=== PATIENT | male | born 1960 | race Caucasian/White ===

== ENCOUNTER 2017-07-14 18:28 | Emergency (ER) | payer MEDICARE, OTHER ==
[~2017-07-14] VITALS: Ht 170.2 cm; Wt 65.8 kg
[~2017-07-14 18:28] MED LIST: AMLODIPINE BESYL5 MG PO; BACTRIM DS TAB1 EACH PO; CELLCEPT250 MG PO; DIAZEPAM2 MG PO; FLUOXETINE HCL10 MG PO; FUROSEMIDE20 MG PO; GABAPENTIN300 MG PO; MAG-OXIDE400 MG PO; METOPROLOL SUC100 MG PO; METOPROLOL SUCC25 MG PO; MYCOPHENOLATE250 MG PO; ONDANSETRON ODT4 MG SL; OXYCODONE HCL5 M1 PO; OXYCODONE HCL5 MG PO; RAPAMUNE1 MG PO; SIROLIMUS1 MG PO; VENTOLIN HFA18 GM INH
--- OUTSIDE RECORDS SUMMARY | 2017-07-14 19:24 | XMS | Encounter Summary ---
Demographics + + + | Address | [address] | | | [place] [address] | + + + | Home Phone | | + + + | Preferred Language | Unknown | + + + | Marital Status | Single | + + + | Quaker Affiliation | BAP | + + + | Race | White | + + + | Ethnic Group | Not or | + + + Author + + + | Author | [facility] | + + + | Organization | [facility] | + + + | Address | Unknown | + + + | Phone | Unavailable | + + + Support +------+ +---------+ + | Name | Relationship | Address | Phone | +------+ +---------+ + ECON | Unknown | | +------+ +---------+ + Care Team Providers + +------+-------+ | Care Shipping Helper Name | Role | Phone | + +------+-------+ | Ritesh England PA-C | PCP | tel | + +------+-------+ Encounter Details +--------+---------+ + + + | Date | Type | Department | Care Team | Description | +--------+---------+ + + + | 05/04/ | Office | Otolaryngology | Richard Clemente MD | SCCA (squamous cell | | 2017 | Visit | Head and Neck | [address] | carcinoma) of skin | | | | Surgery Services at | [facility], | (Primary Dx) | | | | PPV [address] [facility] | [place] [address] | | | | | [facility] | [phone] | | | | | Mailcode: PV01 | | | | | | [facility] | | | | | | [place], [place] | | | | | | [address] | | | | | | [phone] | | | +--------+---------+ + + + Social History + + + +--------+ + | Tobacco Use | Types | Packs/Day | Years | Date | | | | | Used | | + + + +--------+ + | Former Smoker | Cigarettes | 0.5 | 25 | Quit: 06/01/2013 | + + + +--------+ + + +---+---+---+ | Smokeless Tobacco: | | | | | Never Used | | | | + +---+---+---+ + + +---------+ + | Alcohol Use | Drinks/We | oz/Week | Comments | | | ek | | | + + +---------+ + | No | | | | + + +---------+ + + + + | Sex Assigned at | Date Recorded | | | | + + + | Not on file | | + + + as of this encounter Last Filed Vital Signs + + + + | Vital Sign | Reading | Time Taken | + + + + | Blood Pressure | 148/90 | 05/04/2017 2:04 PM PDT | + + + + | Pulse | 64 | 05/04/2017 2:04 PM PDT | + + + + | Temperature | - | - | + + + + | Respiratory Rate | - | - | + + + + | Oxygen Saturation | - | - | + + + + | Inhaled Oxygen | - | - | | Concentration | | | + + + + | Weight | 69.9 kg (154 lb) | 05/04/2017 2:04 PM PDT | + + + + | Height | - | - | + + + + | Body Mass Index | 24.12 | 05/04/2017 2:04 PM PDT | + + + + in this encounter Progress Notes Richard Clemente MD - 05/04/2017 12:45 PM PDTHere for post op f/u after excision of 3 facial sk in Ca and one neck and local flap reconstructions. Doing well. Still suffering from pain s ome of which is chronic and had see pain mgt in the past. Reports having run out of pain me dicine yesterday and requesting a referral to pain mgt closer to home in [place], [place]. Wis hes to drive again. No visual disturbances. No drainage. Using ABx ointment Incisions on anterior neck and face healing well. No sign of infection. All flaps with go od take and no appreciable necrosis Right lower eyelid with edema Path: one lesion, lower lateral right face with positive/close margin Explained to pt high risk of recurrence , pt would like to wait, heal, and observe at this time and not immediately re-excise for wider margin. Agree that this is reasonable. -continue ABx ointment -massage eyelid several times a day, can ice on and off -refer to pain mgt -can have 20 tabs of oxycodone 5mg for acute pain during this period now while setting up a ppt with pain mgt clinic -f/u 2-4wks in this encounter Plan of Treatment +--------+---------+ + + + | Date | Type | Specialty | Care Team | Description | +--------+---------+ + + + | 11/17/ | Office | Liver Transplant | Brittney Pratt | | | 2018 | Visit | | MD Kiah [address] | | | | | | [place], [place] | | | | | | [address] | | | | | | [phone] | | | | | | | | +--------+---------+ + + + as of this encounter Visit Diagnoses + + | Diagnosis | + + | SCCA (squamous cell carcinoma) of skin - Primary | + +"
--- OUTSIDE RECORDS SUMMARY | 2017-07-14 19:24 | XMS | Encounter Summary ---
Demographics + + + | Address | [address] | | | [place] [address] | + + + | Home Phone | | + + + | Preferred Language | Unknown | + + + | Marital Status | Single | + + + | Oriental Orthodox Affiliation | BAP | + + + | Race | White | + + + | Ethnic Group | Not or | + + + Author + + + | Author | [facility] | + + + | Organization | [facility] | + + + | Address | Unknown | + + + | Phone | Unavailable | + + + Support +------+ +---------+ + | Name | Relationship | Address | Phone | +------+ +---------+ + ECON | Unknown | | +------+ +---------+ + Care Team Providers + +------+-------+ | Care Move Coordinator Name | Role | Phone | + +------+-------+ | Ritesh England PA-C | PCP | tel | + +------+-------+ Reason for Visit AUTH/CERT +--------+--------+ + + + + | Status | Reason | Specialty | Diagnoses / | Referred By | Referred To | | | | | Procedures | Contact | Contact | +--------+--------+ + + + + | | | | | | | +--------+--------+ + + + + Encounter Details +--------+ + + + + | Date | Type | Department | Care Team | Description | +--------+ + + + + | 04/22/ | Anesthesia | 6A Intra Op [facility] | Lakshmi Choudhary MD | | | 2017 | | [facility] | [address] [facility] | | | | | Admitting Desk | [facility], | | | | | Located on the | [place] [address] | | | | | floor [address] [place] [address] | [phone] | | | | | [facility] | | | | | | [place], [place] | | | | | | [address] | | | +--------+ + + + + Anesthesia Record + + + + + | Procedure Name | Responsible | Anesthesia Start | Anesthesia Stop Time | | | Anesthesiologist | Time | | + + + + + | FACE/ HEAD/NECK | Lakshmi Choudhary MD | 04/22/17 1332 | 04/22/17 1550 | | EXCISION (Right | | | | | Face) | | | | + + + + + +----+---+ + + | Da | T | Event | Comment | | te | i | | | | | m | | | | | e | | | +----+---+ + + | 09 | 1 | Eq Check | Anesthesia machine checked Equipment verified | | /2 | 3 | | | | 0/ | 0 | | | | 20 | 3 | | | | 17 | | | | +----+---+ + + | | 1 | Pt. Check | Prior to anesthesia start, pt. Identified, examined, chart | | | 3 | | reviewed, PARQ held, anesthetic plan made or approved by | | | 0 | | attending anesthesiologist. NPO status confirmed as appropriate | | | 3 | | for procedure Preoperative evaluation: unchanged | +----+---+ + + | | 1 | An Start | | | | 3 | | | | | 3 | | | | | 2 | | | +----+---+ + + | | 1 | An Start | | | | 3 | Data | | | | 3 | | | | | 5 | | | +----+---+ + + | | 1 | Vitals | Monitors applied Vital signs checked Patient ready for anesthesia | | | 3 | Checked | | | | 3 | | | | | 5 | | | +----+---+ + + | | 1 | SGA | | | | 3 | | | | | 4 | | | | | 0 | | | +----+---+ + + | | 1 | Ready | | | | 3 | | | | | 4 | | | | | 0 | | | +----+---+ + + | | 1 | Abx | | | | 3 | Administere | | | | 5 | d | | | | 5 | | | +----+---+ + + | | 1 | Incision | | | | 4 | | | | | 0 | | | | | 6 | | | +----+---+ + + | | 1 | Surgery end | | | | 5 | | | | | 3 | | | | | 1 | | | +----+---+ + + | | 1 | SGA Removed | | | | 5 | | | | | 3 | | | | | 8 | | | +----+---+ + + | | 1 | an stop | | | | 5 | data | | | | 3 | | | | | 8 | | | +----+---+ + + | | 1 | Anesthesia | | | | 5 | End | | | | 5 | | | | | 0 | | | +----+---+ + + +------+ | Meds | +------+ + + + | Name | Total | + + + | midazolam | 2 mg | + + + | propofol | 150 mg | + + + | fentaNYL | 200 mcg | + + + | ondansetron | 4 mg | + + + | ceFAZolin | 2,000 mg | + + + | lactated Ringers IV | 700 mL | + + + + + | No agents on file. | + + + + | No blood administrations on file. | + + +--------+ + + + | Type | Details | Placement | Removal | +--------+ + + + | Incisi | 04/22/17; Azzi; Anterior; neck | 04/22/17 0000 by | | | on | | Adriana Victor RN | | +--------+ + + + | Incisi | 04/22/17; Azzi; Right; Lateral; | 04/22/17 0000 by | | | on | face | Adriana Victor RN | | +--------+ + + + | Incisi | 04/22/17; Azzi; Right; Lateral, | 04/22/17 0000 by | | | on | Upper; face | Adriana Victor RN | | +--------+ + + + | Incisi | 04/22/17; Azzi; Right; Medial; | 04/22/17 0000 by | | | on | face | Adriana Victor RN | | +--------+ + + + | Periph | 04/22/17; 1300; Left; Forearm; 20 | 04/22/17 1300 by | 04/23/17 1053 by | | marvinl | g; None; Positive; 04/23/17; | Han Perales, | Cathi Spivey, | | IV | 1053; Discharge | RN | RN | +--------+ + + + in this encounter Social History + + + +--------+------+ | Tobacco Use | Types | Packs/Day | Years | Date | | | | | Used | | + + + +--------+------+ | Current Every Day | Cigarettes | 0.5 | 25 | | | Smoker | | | | | + + + +--------+------+ + +---+---+---+ | Smokeless Tobacco: | | [...] + + + as of this encounter Plan of Treatment +--------+---------+ + + + | Date | Type | Specialty | Care Team | Description | +--------+---------+ + + + | 11/17/ | Office | Liver Transplant | Brittney Pratt | | | 2017 | Visit | | MD Kiah [address] | | | | | | [place], [place] | | | | | | [address] | | | | | | [phone] | | | | | | | | +--------+---------+ + + + as of this encounter Visit Diagnoses Not on filein this encounter Administered Medications + +--------+ + +------+------+ | Medication Order | MAR | Action | Dose | Rate | Site | | | Action | Date | | | | + +--------+ + +------+------+ | ceFAZolin (ANCEF) injection | Given | | 2,000 mg | | | | intravenous, INTRAPROCEDURE PRN, | | 7 13:55 | | | | | Starting 04/22/17 at 1355, | | PDT | | | | | Until Tu04/28/17 at 1557 | | | | | | + +--------+ + +------+------+ +---+---+ | | | +---+---+ + +-------+ +--------+---+---+ | fentaNYL citrate (PF) | Given | | 50 mcg | | | | (SUBLIMAZE) injection | | 7 14:30 | | | | | INTRAPROCEDURE PRN, Starting Wed | | PDT | | | | | 04/22/17 at 1400, Until Wed | | | | | | | 04/22/17 at 1538 | | | | | | + +-------+ +--------+---+---+ +-------+ +--------+---+---+ | Given | | 50 mcg | | | | | 7 15:15 | | | | | | PDT | | | | +-------+ +--------+---+---+ | Given | | 50 mcg | | | | | 7 15:47 | | | | | | PDT | | | | +-------+ +--------+---+---+ +---+---+ | | | +---+---+ + +---------+ + + + + | lactated Ringers IV 10 mL/hr, | New Bag | | 10 mL/hr | 10 mL/hr | Left Arm | | intravenous, PROCEDURE | | 7 13:00 | | | | | CONTINUOUS, Starting Thu04/22/17 | | PDT | | | | | at 1245, Until Thu04/22/17 at | | | | | | | 1807 | | | | | | + +---------+ + + + + +---------+ +---+---+---+ | New Bag | | | | | | | 7 13:32 | | | | | | PDT | | | | +---------+ +---+---+---+ +---+---+ | | | +---+---+ + +-------+ +------+---+---+ | midazolam (VERSED) injection | Given | | 2 mg | | | | INTRAPROCEDURE PRN, Starting Wed | | 7 13:32 | | | | | 04/22/17 at 1332, Until Wed | | PDT | | | | | 04/22/17 at 1538 | | | | | | + +-------+ +------+---+---+ +---+---+ | | | +---+---+ + +-------+ +------+---+---+ | ondansetron (ZOFRAN) injection | Given | | 4 mg | | | | INTRAPROCEDURE PRN, Starting Wed | | 7 15:15 | | | | | 04/22/17 at 1515, Until Wed | | PDT | | | | | 04/22/17 at 1538 | | | | | | + +-------+ +------+---+---+ +---+---+ | | | +---+---+ + +-------+ +--------+---+---+ | propofol INTRAPROCEDURE PRN, | Given | | 150 mg | | | | Starting 04/22/17 at 1332, | | 7 13:38 | | | | | Until 04/22/17 at 1538 | | PDT | | | | + +-------+ +--------+---+---+ +---+---+ | | | +---+---+ in this encounter"
--- OUTSIDE RECORDS SUMMARY | 2017-07-14 19:24 | XMS | Encounter Summary ---
Demographics + + + | Address | [address] | | | [place] [address] | + + + | Home Phone | | + + + | Preferred Language | Unknown | + + + | Marital Status | Single | + + + | Anglican Affiliation | BAP | + + + | Race | White | + + + | Ethnic Group | Not or | + + + Author + + + | Author | [facility] | + + + | Organization | [facility] | + + + | Address | Unknown | + + + | Phone | Unavailable | + + + Support +------+ +---------+ + | Name | Relationship | Address | Phone | +------+ +---------+ + ECON | Unknown | | +------+ +---------+ + Care Team Providers + +------+-------+ | Care Ski Edge Painter Name | Role | Phone | + +------+-------+ | Ritesh England PA-C | PCP | tel | + +------+-------+ Reason for Visit + + + | Reason | Comments | + + + | Refill Request | | + + + Encounter Details +--------+--------+ + + + | Date | Type | Department | Care Team | Description | +--------+--------+ + + + | 05/04/ | Refill | Transplant | Brittney Pratt | Refill Request | | 2016 | | Coordinators [address] MD [address] | | | | | [address] | [place], [place] | | | | | [place], [place] | [address] | | | | | [address] | [phone] | | | | | [phone] | | | +--------+--------+ + + + Social History + + [...] | 2017 | Visit | | MD Bruce [address] | | | | | | [place], [place] | | | | | | [address] | | | | | | [phone] | | | | | | | | +--------+---------+ + + + as of this encounter Visit Diagnoses Not on filein this encounter"
--- OUTSIDE RECORDS SUMMARY | 2017-07-14 19:24 | XMS | Encounter Summary ---
Demographics + + + | Address | [address] | | | [place] [address] | + + + | Home Phone | | + + + | Preferred Language | Unknown | + + + | Marital Status | Single | + + + | Congregational Affiliation | BAP | + + + | Race | White | + + + | Ethnic Group | Not or | + + + Author + + + | Author | [facility] | + + + | Organization | [facility] | + + + | Address | Unknown | + + + | Phone | Unavailable | + + + Support +------+ +---------+ + | Name | Relationship | Address | Phone | +------+ +---------+ + ECON | Unknown | | +------+ +---------+ + Care Team Providers + +------+-------+ | Care Bee Rancher Name | Role | Phone | + [...] +--------+--------+ + + + + Encounter Details +--------+---------+ + + + | Date | Type | Department | Care Team | Description | +--------+---------+ + + + | 04/22/ | Surgery | 6A Intra [facility] | Shlomo Roach MD | EXCISION OF SKIN | | 2017 | | [facility] | [address] [facility] | CANCER OF FACE 5X7 | | | | Admitting Desk | [facility], | CM, 4X5 CM & 8X8 CM, | | | | Located on the 9 | [place] [address] | AND NECK WITH LOCAL | | | | floor [address] [facility] | [phone] | ADVANCEMENT FLAPS. | | | | [facility] | | specimens: pathology | | | | [place], [place] | | NEDA x 4 | | | | [address] | | | +--------+---------+ + + + [...] + + + | Blood Pressure | 161/74 | 04/23/2017 9:30 AM PDT | + + + + | Pulse | 50 | 04/23/2017 9:30 AM PDT | + + + + | Temperature | 36.6 C (97.9 F) | 04/23/2017 9:30 AM PDT | + + + + | Respiratory Rate | 16 | 04/23/2017 9:30 AM PDT | + + + + | Oxygen Saturation | 98% | 04/23/2017 9:30 AM PDT | + + + + | Inhaled Oxygen | - | - | | Concentration | | | + + + + | Weight | 67.3 kg (148 lb 4.8 | 04/22/2017 6:16 PM PDT | | | oz) | | + + + + | Height | 170.2 cm (5' 7") | 04/22/2017 6:16 PM PDT | + + + + | Body Mass Index | 23.23 | 04/22/2017 6:16 PM PDT | + + + + in this encounter Discharge Summaries Juanjose Gupta PA-C - 04/23/2017 9:19 AM PDTFormatting of this note may be different fr om the original. DOS: 04/23/2017 9:19 AM INPATIENT PHYSICIAN DISCHARGE SUMMARY Author: Juanjose Gupta PA-C Attending Physician: Shlomo Roach MD PCP: Ritesh England PA-C Admission Date: 04/22/2017 Discharge Date: 23 Apr 2017 Diagnoses Principal Final Diagnosis: Skin cancers Past Medical History: Anxiety Chronic pain Comment: sounds like trigeminal neuralgia, right side of the face Hepatitis C Hypertension Liver cancer Comment: was on hospice in 2009! 2004: Melanoma of face (HCC) Comment: Excision in 2004; reconstruction in 2013 No date: NICM (nonischemic cardiomyopathy) (HCC) Comment: EF 35-40% 08/2016: Pericardial effusion 09/17/2005: SCCA (squamous cell carcinoma) of skin Procedures Dr. Roach (ENT) 04/22/2017 1. Excision of neck cancer, approximately 6 x 3 cm, with advancement flap s for primary closure. 2. Excision of nasolabial cancer, approximately 4 x 5 cm, with an interpo lated advancement flap of approximately 4 x 3 cm. 3. Excision of temporal cancer, approximately 5 x 4 cm, with rotation adv ancement flap of approximately 8 x 8 cm. 4. Excision of cheek cancer, approximately 4 x 5 cm, with undermining and primary closure Brief Hospital Course:The patient was taken to the OR on 04/22/2017 for the above procedures . During the procedure, no complications were noted. At the end of the procedure, the gene t was extubated, and transferred to the post-anesthesia care unit. Once recovered, the alisson nt was transferred to the post-surgical patten where he remained for the rest of the hospitali zation. The patient had no post-operative events The patient was admitted to floor for observation and post-operative management. On the tri or the patient was stable and without complications. The patient had stable respiratory stat us on room air. The surgical incisions remained clean, dry, and intact. By date of discharge patient was tolerating oral diet without abdominal pain, nausea or vomiting. The patient's pain was controlled with oral medications. Patient discharged home in good and stable condit ion he was informed on appropriate follow-up care. Medications: Medication List START taking these medications bacitracin 500 unit/gram Oint Apply to affected area two times daily. Indications: post surgical incision site cephALEXin 500 mg Cap Commonly known as: KEFLEX Take 1 capsule by mouth every six hours for 7 days. Indications: soft tissue oxyCODONE (immediate release) 5 mg Tab Commonly known as: ROXICODONE Take 1-2 tablets by mouth every four hours as needed for severe pain. CONTINUE taking these medications amLODIPine 5 mg Tab Commonly known as: NORVASC FLUoxetine 10 mg Cap Commonly known as: PROZAC gabapentin 300 mg Cap Commonly known as: NEURONTIN metoprolol succinate 100 mg Tb24 Commonly known as: TOPROL-XL mycophenolate 250 mg Cap Commonly known as: CELLCEPT Take 2 capsules by mouth two times daily. Take with food. sirolimus 1 mg Tab Commonly known as: RAPAMUNE TAKE 2 TABLETS BY MOUTH EVERY MORNING Diet Regular Regular diet- There are no restrictions to your diet. You may eat or drink whatever you pr efer, though healthy food choices are recommended. Other Discharge Orders and Instructions OTOLARYNGOLOGY- HEAD AND NECK SURGERY SURGICAL DISCHARGE INSTRUCTIONS Please call our clinic with any concerns or questions about your hospital stay. After hour s, you may call ACTIVITY: Walking will be your primary source of exercise. It is very important that you walk at leas t three times a day. These can be short walks that you can gradually increase over time as y our strength improves. The majority of time should be spent out of bed. It is ok to take nap s if you are tired, but alternate napping with activity. WEIGHT BEARING RESTRICTIONS: No heavy lifting, nothing greater than 10lbs. For 2 weeks (a gallon of milk is approximatel y 8lbs.) PAIN: It is expected that you will have pain after surgery, and it is important to manage this pa in so that you can increase your activity, sleep, and heal well from surgery. You are being sent home with a prescription for narcotic pain medication - this is to be taken NEEDED t ypically every 4-6 hours. You may also substitute/supplement the narcotic medication with Ty lenol for milder pain. DO NOT TO TAKE MORE THAN 3,250MG OF TYLENOL IN 24HOURS. Please take n ote if the narcotic you have been prescribed contains Tylenol (acetaminophen). MEDICATIONS: Take pain medication as needed. Your pain should decrease over the next week. Wean yoursel f off pain medications as soon as possible. The regular use of narcotics (pain medications) can be habit forming, and they do impair judgement. Do not drive within 8 hours of taking any narcotic. Pain medications are constipating. You should have regular bowel movements, while on pain medications. Staying well hydrated and increasing fiber in your diet are good strategies. If you are still unable to have a bowel movement, over the counter stool softeners and laxat tori are appropriate to use. Miralax, Docusate, and Sennosides are a few examples. Your ph armacist can help pick a stool softener should you need further assistance. Medication Refill Instructions: For non-narcotic medication refills, please contact your pharmacy. If you think you will need a refill for the weekend, you must call by 3pm on to al low time for processing. Narcotics: If you need a refill on narcotic pain medications between 8am-3pm. If you think you will need a refill for the weekend, you must call by 3pm on Narcotic medications (Dilaudid, Oxycodone, Morphine, etc.) cannot be called or faxed in to any pharmacy; They must be either picked up in person or mailed to your home. NO REFILL REQU ESTS WILL BE TAKEN ON FRIDAYS OR . Prescriptions sent by mail will take 3 business d ays. Prescriptions to be picked up in person will be ready by the next business day. It is your responsibility to keep track of how much pain medication you have left. You may receive a phone call from the clinic inquiring about your pain; this is to find out if you are having expected post-surgical pain, or if you are having problems and need furth er evaluation. WOUND CARE: Keep the wound clean and dry. You may shower with soap and water. Pat your incision dry. Do not scrub your incision. Do not use hot tubs or take a bath until cleared by a surgeon. Apply a thin layer of petroleum jelly (Vaseline) or antibacterial ointment (Bacitracin) to the Post surgical incision site wound (face)at least 2 times a day. SYMPTOMS OF A SURGICAL SITE INFECTION: 1) Spreading redness and swelling from the incision. 2) Worsening or uncontrolled pain at the incision 3) Foul smelling or thick/creamy discharge from the incision 4) Chills or fever of a 101.4 degrees or higher HOW TO REACH US: Thursday- Thursday from 8:00am to 4:30pm, call the Otolaryngology clinic at [phone]. After hours, weekends, and holidays, call the [facility] joggle press operator at [phone] and as k to have the ENT doctor on-call paged Future Appointments Date Time Provider Department Center 04/30/2017 10:10 AM Brenda Christensen MD [facility] Comprehensiv 11/17/2017 11:00 AM Valente Welch MD,[facility] Pertinent labs: CBC with diff last 72 hours (or 3 results) Recent Labs 04/21/17 1131 WBC 5.71 HB 15.2 HCT 44.4 PLT 187 Chemistries: Last 72 Hours (or 3 results): Recent Labs 04/21/17 1131 NA 137 K 4.7 CL 103 BICARB 27 BUN 12 CR 1.34* GLU 102* CA 9.1 Liver Tests: Last 72 hours (or 3 results) Recent Labs 04/21/17 1131 AST 70* ALT 79* TBILI 0.6 AP 115 ALB 3.6 TP 7.6 Vitals on discharge: Ht 1.702 m (5' 7"), Wt 67.3 kg (148 lb 4.8 oz), BP 178/93, Pulse 49, T emperature 36.4 C (97.5 F), RR 16, SpO2 97%, BMI 23.23 kg/(m^2). Physical Exam on discharge: General: awake, alert in NAD HEENT: incision c/d/i. Slight swelling over the right side of the eye 2/2 post-surgical layla nges Respiratory: Breathing unlabored on RA. Outstanding labs/studies: Surgical Pathology Discharging Physician: Juanjose Gupta PA-C Attending Physician: Shlomo Roach MD I spent 52 minutes in the care of this patient. Greater than 50% of the time was spent cou nseling and coordination of care, including physical examination, wound management and coord inating follow-up appointment. JUANJOSE GUPTA PA-C Department of Otolaryngology/Head and Neck Surgery Mail Code PV01 [address] [place] [address] Pager [phone] Consult/Night/Weekend Pager: [phone] in this encounter Medications at Time of Discharge + + +---------+---------+ + + | Medication | Sig. | Disp. | Refills | Start | End Date | | | | | | Date | | + + +---------+---------+ + + | amLODIPine 5 mg | Take 7.5 mg by mouth | | 3 | 09/29/19 | | | oral | once daily. | | | 17 | | | tabletIndications: | Indications: | | | | | | hypertension | hypertension | | | | | + + +---------+---------+ + + | bacitracin 500 | Apply to affected | 1 g | 0 | 04/23/20 | | | unit/gram topical | area two times | | | 17 | | | ointmentIndications: | daily. Indications: | | | | | | post surgical | post surgical | | | | | | incision site | incision site | | | | | + + +---------+---------+ + + | FLUoxetine 10 mg | Take 10 mg by mouth | | | 10/25/19 | | | oral capsule | once daily. | | | 17 | | + + +---------+---------+ + + | gabapentin 300 mg | TK ONE C PO QD | | 0 | 08/26/19 | | | oral capsule | | | | 17 | | + + +---------+---------+ + + | metoprolol | TK 1 T PO QD | | 3 | 09/29/19 | | | succinate 100 mg | | | | 17 | | | oral tablet extended | | | | | | | release 24 hr | | | | | | + + +---------+---------+ + + | mycophenolate | Take 2 capsules by | 120 | 3 | 02/28/20 | | | (CELLCEPT) 250 mg | mouth two times | capsule | | 17 | | | oral capsule | daily. Take with | | | | | | | food. | | | | | + + +---------+---------+ + + | cephALEXin 500 mg | Take 1 capsule by | 28 | 0 | 04/23/20 | | | oral | mouth every six | capsule | | 17 | 7 | | capsuleIndications: | hours for 7 days. | | | | | | soft tissue | Indications: soft | | | | | | | tissue | | | | | + + +---------+---------+ + + as of this encounter Plan of Treatment +--------+---------+ + + + | Date | Type | Specialty | Care Team | Description | +--------+---------+ + + + | 11/17/ | Office | Liver Transplant | Brittney Pratt | | | 2017 | Visit | | MD Kiah [address] | | | | | | [place], [place] | | | | | | [address] | | | | | | [phone] | | | | | | | | +--------+---------+ + + + as of this encounter Procedures + +--------+ + + + | Procedure Name | Priori | Date/Time | Associated Diagnosis | Comments | | | ty | | | | + +--------+ + + + | OPERATION RECORD | | 04/23/2017 | | Results for this | | | | 5:00 PM | | procedure are in the | | | | PDT | | results section. | + +--------+ + + + | FACE/ HEAD/NECK | Electi | 04/22/2017 | Squamous cell | | | EXCISION | ve | 1:15 PM | carcinoma of skin of | | | | Surgic | PDT | other parts of face | | | | al | | | | + +--------+ + + + in this encounter Results OPERATION RECORD (04/23/2017 5:00 PM) + + | Procedure Note | + + | Shlomo Roach MD - 04/22/2017 4:12 PM PDT Date of Service: 04/22/2017 Attending | | Surgeon:Shlomo Roach MD Processing Archivist(s):Richard Clemente MD. | | Preoperative Diagnosis: Skin cancer.Postoperative Diagnosis: Skin | | cancer.Operative Procedure: 1.Excision of neck cancer, approximately 6 x 3 cm, with | | advancement flaps for primary closure.2.Excision of nasolabial cancer, approximately 4 x | | 5 cm, with an interpolated advancement flap of approximately 4 x 3 cm.3.Excision of | | temporal cancer, approximately 5 x 4 cm, with rotation advancement flap of approximately | | 8 x 8 cm.4.Excision of cheek cancer, approximately 4 x 5 cm, with undermining and | | primary closure.Operative Note: This gentleman has had multiple skin cancers and was | | brought in to have these removed. He was orotracheally intubated after being put to | | sleep, general anesthesia, and then prepped and draped. Surgical pause was performed by | | myself and the team. The neck cancer was marked out and excised. Undermining both | | above and below allowed for primary closure with 4-0 Vicryl and with 5-0 Caprosyn. The | | nasolabial cancer was excised as described. Inferiorly, an incision was made for an | | interpolated type of flap, and this was dissected down through the subcutaneous tissue. | | It was freed up inferiorly and laterally based on the subcutaneous tissue and then | | advanced caudally to get up into the nasolabial defect. Inferiorly close primarily and | | then the flap was used to close the defect in the nasolabial orbital area. A 4-0 Vicryl | | and 5-0 Caprosyn. The lesion in the lateral temporal area was excised. A cervical | | facial flap was elevated in a subfascial plane. This was rotated around superiorly and | | medially. The eye inferior by the lateral canthus was secured to the periosteum to | | elevate the cheek up to there so that there was very little play or tension on the | | eyelid. Then, the flap was rotated in and closed with 4-0 Vicryl, 5-0 Caprosyn. The | | cheek excision was performed using undermining. We were able to advance the skin and | | close it primarily. 4-0 Vicryl, 5-0 Caprosyn. There was no evidence of any bleeding or | | hematomas. All flaps looked viable at the end of the procedure. He was woken up, | | extubated, and will be followed carefully.EVAN Delgadillo/TONY: 04/22/2017 15:12:11DT: | | 04/22/2017 16:12:47Job #: [id number] | |There was no evidence of any bleeding or hematomas. All flaps looked viable at the end of the procedure. He was woken up, extubated, and will be followed carefully. | | | | | | | |Shlomo Roach MD | |TELLY/SABRA | | | | | | /[id number] | + + PROCEDURE NOTE (04/22/2017 3:55 PM) + + | Narrative | + + | Richard Clemente MD 04/22/2017 3:55 PM Department of Otolaryngology/Head and | | Neck Surgery BRIEF OPERATIVE NOTE v1.0 Simeon Michaels Jr. [id number] | | Procedure Date: 04/22/17 Attending Physician: Shlomo Roach Assistants: Richard Clemente. | | Preoperative Diagnosis: Skin cancers Postoperative Diagnosis: same Procedure | | Performed (w/ laterality): excision of 4 malignant skin cancers and reconstruction | | using local flaps and adjacent tissue transfers Anesthesia: LMA, general | | Estimated Blood Loss: 25ml Fluids: see anesthesia record Specimens: skin cancers x4 | | Complications: none Drains: none Findings: as dictated Plan: Post-op | | destination(home/patten/ICU): pacu, [place] Airway (normal/intubated/trach): normal Diet: | | regular Thromboprophylaxis/Anticoagulation: ambulation Ava: n/a Richard Clemente MD | | | + + INTRAPROCEDURE IMAGING (04/22/2017 12:40 PM) + + | Narrative | + + | See admission or procedure notes for details of any intraprocedure images obtained. | + + SURGICAL PATHOLOGY (04/22/2017) + + + + | Component | Value | Ref Range | + + + + | SURGICAL PATHOLOGY | SOURCE OF SPECIMEN:A Anterior neck | | | | lesionSOURCE OF SPECIMEN:B Lower right face | | | | lesionSOURCE OF SPECIMEN:C Nasolabial | | | | lesion rightSOURCE OF SPECIMEN:D Right | | | | lateral eye Final Pathologic | | | | Diagnosis:A. Anterior neck lesion, | | | | excision: Invasive moderately | | | | differentiated squamous cell carcinoma, 0.9 | | | | cm ingreatest dimension and invading to a | | | | depth of 0.2 cm, surgical | | | | marginsnegative. B. Lower right | | | | face lesion, excision:Invasive moderately | | | | differentiated squamous cell carcinoma, 1.9 | | | | cm ingreatest dimension and invading to a | | | | depth of 0.4 cm, extending tounoriented | | | | peripheral specimen margins. C. | | | | Nasal labial lesion, excision:Invasive | | | | moderately differentiated squamous cell | | | | carcinoma,, 0.7 cm ingreatest dimension and | | | | invading to a depth of 0.2 cm, surgical | | | | marginsnegative for in situ and invasive | | | | carcinoma.Basal cell carcinoma, superficial | | | | and nodular subtypes, 0.2 cm in | | | | greatestdimension and invading to a depth | | | | of 0.2 cm, surgical margins | | | | negative.Actinic keratosis extending to | | | | unoriented tip margin. D. Right | | | | lateral eye, excision: Invasive | | | | moderately differentiated squamous cell | | | | carcinoma, 0.2 cm ingreatest dimension and | | | | invading to a depth of 0.1 cm, surgical | | | | marginsnegative. Comment: None | | | | of the specimens show the presence of | | | | perineural orlymphovascular space | | | | invasion. Case reviewed by:Evan | | | | Puneet Tucker/ Surgical Pathology | | | | FellowMinisterio Wharton M.D./ | | | | Pathologist Clinical History:Per | | | | Epic: Diagnosis of squamous cell carcinoma | | | | of the face. Gross | | | | Description:Received are 4 specimens fresh | | | | in containers labeled with patient's | | | | nameand .A. | | | | Anterior neck lesion: Received is a 2.8 x 2 | | | | x 1.4 cm unoriented tanpink skin ellipse | | | | remarkable for a 2.5 x 1.3 cm lesion rising | | | | 0.7 cm abovethe epidermal surface. | | | | Roughened granular lesion extends to the | | | | skin edges(margin inked black). Friable | | | | superficial lesion is debulked, and | | | | thespecimen is entirely submitted.A1-2, | | | | serial sections B. Lower right | | | | face lesion: Received is a 5.5 x 2.3 x 1.5 | | | | cm unorientedtan pink skin ellipse | | | | remarkable for a central 2.3 x 1.8 cm | | | | lesion rising0.4 cm above the epidermal | | | | surface. Also noted at one apex is a 0.9 x | | | | 0.6 x0.4 cm additional lesion. Roughened | | | | granular lesions extend to the skinedges | | | | (margin inked black). Friable superficial | | | | lesion is debulked, and thespecimen is | | | | entirely submitted.B1-4, serial | | | | sections C. Nasal labial | | | | lesion: Received is a 2.4 x 1.8 x 0.9 cm | | | | unoriented tanpink circular skin excision | | | | remarkable for a 1.7 x 1 cm lesion arising | | | | 0.5cm above the epidermal surface area. | | | | Roughened granular lesion extends tothe | | | | skin edges (margin inked black). Friable | | | | superficial lesion isdebulked, and the | | | | specimen is entirely submitted.C1-2, serial | | | | sections D. Right lateral eye: | | | | Received is a 3 x 2 x 0.9 cm unoriented | | | | reyna pinkirregular skin excision remarkable | | | | for a 2 x 1.5 cm lesion arising 0.3 cmabove | | | | the epidermal surface area. Roughened | | | | granular lesion extends to theskin edges | | | | (margin inked black). The specimen is | | | | serially section andentirely | | | | submitted.D1-3, serial sections | | | | (AMJ) My electronic signature | | | | indicates that I have personally reviewed | | | | alldiagnostic slides, the gross and/or | | | | microscopic portion of thisreport and | | | | formulated the final diagnosis. | | | | Rendering Diagnostician: Ministerio Patel | | | | Akiko TeixeiraHematopathologistElectronically | | | | Signed 04/28/2017 12:36PM | | + + + + + + + | Specimen | Performing Laboratory | + + + | | [facility] DEPARTMENT OF PATHOLOGY [address] | | | [place] [address] | + + + CARDIOLOGY (04/22/2017)in this encounter Visit Diagnoses + + | Diagnosis | + + | Squamous cell carcinoma of skin of other parts of face | + + Admitting Diagnoses + + | Diagnosis | + + | Squamous cell carcinoma of skin of other parts of face [C44.329] | + + Administered Medications + +--------+ +---------+------+------+ | Medication Order | MAR | Action | Dose | Rate | Site | | | Action | Date | | | | + +--------+ +---------+------+------+ | bacitracin ointment | Given | | 1 strip | | | | INTRAPROCEDURE PRN, Starting Wed | | 7 15:27 | | | | | 04/22/17 at 1527, Until Wed | | PDT | | | | | 04/22/17 at 1542 | | | | | | + +--------+ +---------+------+------+ +---+---+ | | | +---+---+ + +-------+ +-------+---+---+ | balanced salt (BSS) ophthalmic | Given | | 15 mL | | | | irrigation INTRAPROCEDURE PRN, | | 7 15:06 | | | | | Starting 04/22/17 at 1506, | | PDT | | | | | Until 04/22/17 at 1542 | | | | | | + +-------+ +-------+---+---+ +---+---+ | | | +---+---+ + +-------+ +-------+---+---+ | lidocaine-EPINEPHrine | Given | | 18 mL | | | | (XYLOCAINE WITH EPINEPHRINE) 1 | | 7 14:29 | | | | | %-1:100,000 injection | | PDT | | | | | INTRAPROCEDURE PRN, Starting Wed | | | | | | | 04/22/17 at 1429, Until Wed | | | | | | | 04/22/17 at 1542 | | | | | | + +-------+ +-------+---+---+ +---+---+ | | | +---+---+ in this encounter
--- OUTSIDE RECORDS SUMMARY | 2017-07-14 19:24 | XMS | Clinical Summary ---
Demographics + + + | Address | [address] | | | [place] [address] | + + + | Home Phone | | + + + | Preferred Language | Unknown | + + + | Marital Status | Single | + + + | Hoahaoism Affiliation | BAP | + + + | Race | White | + + + | Ethnic Group | Not or | + + + Author + + + | Author | [facility] | + + + | Organization | [facility] | + + + | Address | Unknown | + + + | Phone | Unavailable | + + + Support +------+ +---------+ + | Name | Relationship | Address | Phone | +------+ +---------+ + ECON | Unknown | | +------+ +---------+ + Care Team Providers + +------+-------+ | Care Dance Instructor Name | Role | Phone | + +------+-------+ | Ritesh England PA-C | PP | tel | + +------+-------+ Source Comments SHILA is fully live on both [facility] and [facility] InPatient.[facility] Allergies + + + + + + | Active Allergy | Reactions | Severity | Noted | Comments | | | | | Date | | + + + + + + | Morphine | Nausea | | 12/03/19 | | | | | | 16 | | + + + + + + Current Medications + + +---------+---------+------+------+-------+ | Prescription | Sig. | Disp. | Refills | Star | End | Statu | | | | | | t | Date | s | | | | | | Date | | | + + +---------+---------+------+------+-------+ | FLUoxetine 10 mg | Take 10 mg by mouth | | | 03/2 | | Activ | | oral capsule | once daily. | | | 11/20 | | e | | | | | | 17 | | | + + +---------+---------+------+------+-------+ | metoprolol | TK 1 T PO QD | | 3 | /2 | | Activ | | succinate 100 mg | | | | 02/19 | | e | | oral tablet extended | | | | 17 | | | | release 24 hr | | | | | | | + + +---------+---------+------+------+-------+ | amLODIPine 5 mg | Take 7.5 mg by mouth | | 3 | 02/2 | | Activ | | oral | once daily. | | | 02/19 | | e | | tabletIndications: | Indications: | | | 17 | | | | hypertension | hypertension | | | | | | + + +---------+---------+------+------+-------+ | gabapentin 300 mg | TK ONE C PO QD | | 0 | /2 | | Activ | | oral capsule | | | | 11/20 | | e | | | | | | 17 | | | + + +---------+---------+------+------+-------+ | mycophenolate | Take 2 capsules by | 120 | 3 | 07/2 | | Activ | | (CELLCEPT) 250 mg | mouth two times | capsule | | 8/20 | | e | | oral capsule | daily. Take with | | | 17 | | | | | food. | | | | | | + + +---------+---------+------+------+-------+ | bacitracin 500 | Apply to affected | 1 g | 0 | 09/2 | | Activ | | unit/gram topical | area two times | | | 1/20 | | e | | ointmentIndications: | daily. Indications: | | | 17 | | | | post surgical | post surgical | | | | | | | incision site | incision site | | | | | | + + +---------+---------+------+------+-------+ | sirolimus 1 mg | Take 2 tablets by | 60 | 3 | 10/0 | | Activ | | oral | mouth once daily in | tablet | | 2/20 | | e | | tabletIndications: | the morning. | | | 17 | | | | liver transplant | Indications: liver | | | | | | | | transplant | | | | | | + + +---------+---------+------+------+-------+ | oxyCODONE | Take 1 tablet by | 20 | 0 | 10/0 | | Activ | | (immediate release) | mouth every six | tablet | | 2/20 | | e | | 5 mg oral tablet | hours as needed for | | | 17 | | | | | severe pain. | | | | | | + + +---------+---------+------+------+-------+ Active Problems + + + | Problem | Noted Date | + + + | Acute congestive heart failure (HCC) | 08/23/2016 | + + + + + | Overview: Overview: 1. Congestive Heart Failure: A. | | Echocardiogram 08/23/16, shows normal left ventricular size with | | moderate concentric left ventricular hypertrophy, there is a | | moderate global hypokinesis of the left ventricle, overall, left | | ventricular significant is moderately decreased, LVEF is 35-40%, | | mildly thickened and calcified trileaflet aortic valve with | | adequate opening, there is a mild aortic valve insufficiency, | | mildly thickened and calcified mitral valve with a mild mitral | | valve regurgitation, mild mitral annular calcification, small | | circumferential pericardial effusion without cardiac tamponade, | | normal right-sided pressure, normal IVC with normal respiratory | | collapse. B. Stress Test 08/25/16, shows persantine EKG is | | abnormal at baseline without diagnostic changes post stress, low | | risk persantine sestamibi myocardial perfusion study for coronary | | ischemia, notable for a small area of reduced uptake anteriorly | | as detailed above, suggestive of possible attenuation artifact | | versus a small true defect, with reduced LV systolic function and | | LV enlargement, LVEF by gated SPECT is 35%.2. Cardiomyopathy3. | | Essential hypertension with goal blood pressure less than | | 130/804. Pericardial effusion | + + + + + | Bilateral pleural effusion | 08/23/2016 | + + + | History of liver transplant (HCC) | 06/26/2015 | + + + | Personal history of liver cancer | 06/26/2015 | + + + | Chronic pain | 09/12/2011 | + + + | Mechanical ectropion | 02/06/2006 | + + + | Malignant neoplasm of cheek (HCC) | 09/17/2005 | + + + | SCCA (squamous cell carcinoma) of skin | 09/17/2005 | + + + | Hypertension | | + + + Resolved Problems + + + + | Problem | Noted | Resolved | | | Date | Date | + + + + | Hepatocellular carcinoma (HCC) | 06/26/20 | | | | 15 | 6 | + + + + Encounters +--------+ + + + + | Date | Type | Specialty | Care Team | Description | +--------+ + + + + | 05/04/ | Office | | Richard Clemente MD | SCCA (squamous cell | | 2016 | Visit | | | carcinoma) of skin | | | | | | (Primary Dx) | +--------+ + + + + | 05/04/ | Pharmacy | | | | | 2016 | Visit | | | | +--------+ + + + + | 05/04/ | Refill | | Brittney Pratt | Refill Request | | 2016 | | | MD Kiah | | +--------+ + + + + | 04/22/ | Hospital | | Shlomo Roach MD | | | 2016 - | Encounter | | | | | | | | | | | 04/23/ | | | | | | 2016 | | | | | +--------+ + + + + +---+ + | | Discharge | | | Summaries | | | - Candy, | | | Juanjose, | | | PA-C - | | | 04/23/2017 | | | 9:19 AM | | | PDT | | | Formatting | | | of this | | | note may be | | | different | | | from the | | | original.DO | | | S: | | | 04/23/2017 | | | 9:19 AM | | | INPATIENT | | | PHYSICIAN | | | DISCHARGE | | | SUMMARYAuth | | | or: Ankitilla | | | Candy, | | | PA-CAttendi | | | ng | | | Physician: | | | Shlomo Roach, | | | MDPCP: | | | Ritesh | | | Tomás, | | | PA-C | | | Admission | | | Date: | | | 04/22/2017Di | | | scharge | | | Date: 21 | | | Sep | | | 2017Diagnos | | | es | | | Principal | | | Final | | | Diagnosis: | | | Skin | | | cancersPast | | | Medical | | | History:Anx | | | ietyChronic | | | pain | | | Comment: | | | sounds like | | | trigeminal | | | neuralgia, | | | right side | | | | | | of the | | | faceHepatit | | | is | | | CHypertensi | | | onLiver | | | cancer | | | Comment: | | | was on | | | hospice in | | | 2009!2005: | | | Melanoma of | | | face (HCC) | | | Comment: | | | Excision | | | in 2004; | | | reconstruct | | | ion in | | | 2013No | | | date: NICM | | | (nonischemi | | | c | | | cardiomyopa | | | thy) (HCC) | | | Comment: | | | EF | | | 35-40%08/22 | | | 17: | | | Pericardial | | | | | | btacryai32/ | | | : | | | SCCA | | | (squamous | | | cell | | | carcinoma) | | | of | | | skinProcedu | | | res Dr. Wax | | | (ENT) | | | . | | | | | | | | | Excision of | | | neck | | | cancer, | | | approximate | | | ly 6 x 3 | | | cm, with | | | advancement | | | flaps for | | | primary | | | closure.2. | | | | | | | | | Excision of | | | nasolabial | | | cancer, | | | approximate | | | ly 4 x 5 | | | cm, with an | | | | | | interpolate | | | d | | | advancement | | | flap of | | | approximate | | | ly 4 x 3 | | | cm.3. | | | | | | Excision | | | of temporal | | | cancer, | | | approximate | | | ly 5 x 4 | | | cm, with | | | rotation | | | advancement | | | flap of | | | approximate | | | ly 8 x 8 | | | cm.4. | | | | | | Excision | | | of cheek | | | cancer, | | | approximate | | | ly 4 x 5 | | | cm, with | | | undermining | | | and | | | primary | | | closureBrie | | | f Hospital | | | Course:The | | | patient was | | | taken to | | | the [place] on | | | 04/22/2017 | | | for the | | | above | | | procedures. | | | During the | | | procedure, | | | no | | | complicatio | | | ns were | | | noted. At | | | the end of | | | the | | | procedure, | | | the patient | | | was | | | extubated, | | | and | | | transferred | | | to the | | | post-anesth | | | esia care | | | unit. Once | | | recovered, | | | the patient | | | was | | | transferred | | | to the | | | post-surgic | | | al patten | | | where he | | | remained | | | for the | | | rest of the | | | | | | hospitaliza | | | tion. The | | | patient had | | | no | | | post-operat | | | velia | | | eventsThe | | | patient was | | | admitted | | | to floor | | | for | | | observation | | | and | | | post-operat | | | velia | | | management. | | | On the | | | floor the | | | patient was | | | stable and | | | without | | | complicatio | | | ns. The | | | patient had | | | stable | | | respiratory | | | status on | | | room air. | | | The | | | surgical | | | incisions | | | remained | | | clean, dry, | | | and | | | intact. By | | | date of | | | discharge | | | patient was | | | tolerating | | | oral diet | | | without | | | abdominal | | | pain, | | | nausea or | | | vomiting. | | | The | | | patient's | | | pain was | | | controlled | | | with oral | | | medications | | | . Patient | | | discharged | | | home in | | | good and | | | stable | | | condition | | | he was | | | informed on | | | | | | appropriate | | | follow-up | | | care. | | | Medications | | | : | | | Medication | | | List START | | | taking | | | these | | | medications | | | | | | bacitracin | | | 500 | | | unit/gram | | | Oint Apply | | | to | | | affected | | | area two | | | times | | | daily. | | | Indications | | | : post | | | surgical | | | incision | | | site | | | cephALEXin | | | 500 mg Cap | | | Commonly | | | known as: | | | KEFLEX Take | | | 1 capsule | | | by mouth | | | every six | | | hours for 7 | | | days. | | | Indications | | | : soft | | | tissue | | | oxyCODONE | | | (immediate | | | release) 5 | | | mg Tab | | | Commonly | | | known as: | | | ROXICODONE | | | Take 1-2 | | | tablets by | | | mouth every | | | four hours | | | as needed | | | for severe | | | pain. | | | CONTINUE | | | taking | | | these | | | medications | | | | | | amLODIPine | | | 5 mg Tab | | | Commonly | | | known as: | | | NORVASC | | | FLUoxetine | | | 10 mg Cap | | | Commonly | | | known as: | | | PROZAC | | | gabapentin | | | 300 mg Cap | | | Commonly | | | known as: | | | NEURONTIN | | | metoprolol | | | succinate | | | 100 mg Tb24 | | | Commonly | | | known as: | | | TOPROL-XL | | | | | | mycophenola | | | te 250 mg | | | Cap | | | Commonly | | | known as: | | | CELLCEPT | | | Take 2 | | | capsules by | | | mouth two | | | times | | | daily. Take | | | with food. | | | | | | sirolimus 1 | | | mg Tab | | | Commonly | | | known as: | | | RAPAMUNE | | | TAKE 2 | | | TABLETS BY | | | MOUTH EVERY | | | MORNING | | | Diet | | | Regular | | | Regular | | | diet- There | | | are no | | | restriction | | | s to your | | | diet. You | | | may eat or | | | drink | | | whatever | | | you prefer, | | | though | | | healthy | | | food | | | choices are | | | | | | recommended | | | . Other | | | Discharge | | | Orders and | | | Instruction | | | s | | | OTOLARYNGOL | | | OGY- HEAD | | | AND NECK | | | SURGERY | | | SURGICAL | | | DISCHARGE | | | INSTRUCTION | | | SPlease | | | call our | | | clinic with | | | any | | | concerns or | | | questions | | | about your | | | hospital | | | stay. | | | After | | | hours, you | | | may call | | | [phone] | | | [phone] | | | IVITY:Walki | | | ng will be | | | your | | | primary | | | source of | | | exercise. | | | It is very | | | important | | | that you | | | walk at | | | least three | | | times a | | | day. These | | | can be | | | short walks | | | that you | | | can | | | gradually | | | increase | | | over time | | | as your | | | strength | | | improves. | | | The | | | majority of | | | time | | | should be | | | spent out | | | of bed. It | | | is ok to | | | take naps | | | if you are | | | tired, but | | | alternate | | | napping | | | with | | | activity.WE | | | IGHT | | | BEARING | | | RESTRICTION | | | S:No heavy | | | lifting, | | | nothing | | | greater | | | than 10lbs. | | | For 2 | | | weeks (a | | | gallon of | | | milk is | | | approximate | | | ly | | | 8lbs.)PAIN: | | | It is | | | expected | | | that you | | | will have | | | pain after | | | surgery, | | | and it is | | | important | | | to manage | | | this pain | | | so that you | | | can | | | increase | | | your | | | activity, | | | sleep, and | | | heal well | | | from | | | surgery. | | | You are | | | being sent | | | home with a | | | | | | prescriptio | | | n for | | | narcotic | | | pain | | | medication | | | - this is | | | to be taken | | | NEEDED | | | typically | | | every 4-6 | | | hours. You | | | may also | | | substitute/ | | | supplement | | | the | | | narcotic | | | medication | | | with | | | Tylenol for | | | milder | | | pain. DO | | | NOT TO TAKE | | | MORE THAN | | | 3,250MG OF | | | TYLENOL IN | | | 24HOURS. | | | Please take | | | note if | | | the | | | narcotic | | | you have | | | been | | | prescribed | | | contains | | | Tylenol | | | (acetaminop | | | hen).MEDICA | | | TIONS: Take | | | pain | | | medication | | | as needed. | | | Your pain | | | should | | | decrease | | | over the | | | next week. | | | Wean | | | yourself | | | off pain | | | medications | | | as soon as | | | possible. | | | The | | | regular use | | | of | | | narcotics | | | (pain | | | medications | | | ) can be | | | habit | | | forming, | | | and they do | | | impair | | | judgement. | | | Do not | | | drive | | | within 8 | | | hours of | | | taking any | | | narcotic.Pa | | | in | | | medications | | | are | | | constipatin | | | g. You | | | should have | | | regular | | | bowel | | | movements, | | | while on | | | pain | | | medications | | | . Staying | | | well | | | hydrated | | | and | | | increasing | | | fiber in | | | your diet | | | are good | | | strategies. | | | If you | | | are still | | | unable to | | | have a | | | bowel | | | movement, | | | over the | | | counter | | | stool | | | softeners | | | and | | | laxatives | | | are | | | appropriate | | | to use. | | | Miralax, | | | Docusate, | | | and | | | Sennosides | | | are a few | | | examples. | | | Your | | | pharmacist | | | can help | | | pick a | | | stool | | | softener | | | should you | | | need | | | further | | | assistance. | | | Medication | | | Refill | | | Instruction | | | s:For | | | non-narcoti | | | c | | | medication | | | refills, | | | please | | | contact | | | your | | | pharmacy.If | | | you think | | | you will | | | need a | | | refill for | | | the | | | , | | | you must | | | call by 3pm | | | on | | | to | | | allow time | | | for | | | processing. | | | Narcotics:I | | | f you need | | | a refill on | | | narcotic | | | pain | | | medications | | | between | | | 8am-3pm. If | | | you think | | | you will | | | need a | | | refill for | | | the | | | weekend, | | | you must | | | call by 3pm | | | on | | | Nar | | | cotic | | | medications | | | (Dilaudid, | | | Oxycodone, | | | Morphine, | | | etc.) | | | cannot be | | | called or | | | faxed in to | | | any | | | pharmacy; | | | They must | | | be either | | | picked up | | | in person | | | or mailed | | | to your | | | home. NO | | | REFILL | | | REQUESTS | | | WILL BE | | | TAKEN ON | | | FRIDAYS OR | | | S. | | | Prescriptio | | | ns sent by | | | mail will | | | take 3 | | | business | | | days. | | | Prescriptio | | | ns to be | | | picked up | | | in person | | | will be | | | ready by | | | the next | | | business | | | day.It is | | | your | | | responsibil | | | ity to keep | | | track of | | | how much | | | pain | | | medication | | | you have | | | left. You | | | may receive | | | a phone | | | call from | | | the clinic | | | inquiring | | | about your | | | pain; this | | | is to find | | | out if you | | | are having | | | expected | | | post-surgic | | | al pain, or | | | if you are | | | having | | | problems | | | and need | | | further | | | evaluation. | | | WOUND | | | CARE:Keep | | | the wound | | | clean and | | | dry.You may | | | shower | | | with soap | | | and water. | | | Pat your | | | incision | | | dry. Do | | | not scrub | | | your | | | incision. | | | Do not use | | | hot tubs or | | | take a | | | bath until | | | cleared by | | | a surgeon. | | | Apply a | | | thin layer | | | of | | | petroleum | | | jelly | | | (Vaseline) | | | or | | | antibacteri | | | al ointment | | | | | | (Bacitracin | | | ) to the | | | Post | | | surgical | | | incision | | | site wound | | | (face)at | | | least 2 | | | times a | | | day. | | | SYMPTOMS OF | | | A SURGICAL | | | SITE | | | INFECTION:1 | | | ) Spreading | | | redness | | | and | | | swelling | | | from the | | | incision.2) | | | Worsening | | | or | | | uncontrolle | | | d pain at | | | the | | | incision3) | | | Foul | | | smelling or | | | | | | thick/cream | | | y discharge | | | from the | | | incision4) | | | Chills or | | | fever of a | | | 101.4 | | | degrees or | | | higherHOW | | | TO REACH | | | US:Thursday- | | | Thursday from | | | 8:00am to | | | 4:30pm, | | | call the | | | Otolaryngol | | | ogy clinic | | | at | | | [phone] | | | 5. After | | | hours, | | | weekends, | | | and | | | holidays, | | | call the | | | [facility] | | | hospital | | | electrode cleaning machine operator at | | | | | | [phone] | | | 1 and ask | | | to have the | | | ENT doctor | | | on-call | | | pagedFuture | | | | | | Appointment | | | sDate Time | | | Provider | | | Department | | | Center | | | 04/30/2017 | | | 10:10 AM | | | Brenda | | | Christianse | | | n, MD CHEMICAL RESEARCH WORKER | | | [facility] | | | Comprehensi | | | v 11/17/2017 | | | 11:00 AM | | | Valente L | | | Schlansky, | | | MD,MPH | | | GASLTP | | | GASTROENTER | | | O Pertinent | | | labs:CBC | | | with diff | | | last 72 | | | hours (or 3 | | | | | | results)Rec | | | ent Labs | | | 04/21/17 | | | 1131 WBC | | | 5.71 HB | | | 15.2 HCT | | | 44.4 PLT | | | 187 | | | Chemistries | | | : Last 72 | | | Hours (or 3 | | | | | | results):Re | | | cent Labs | | | 04/21/17 | | | 1131 NA | | | 137 K 4.7 | | | CL 103 | | | BICARB 27 | | | BUN 12 CR | | | 1.34* GLU | | | 102* CA | | | 9.1 Liver | | | Tests: Last | | | 72 hours | | | (or 3 | | | results)Rec | | | ent Labs | | | 04/21/17 | | | 1131 AST | | | 70* ALT | | | 79* TBILI | | | 0.6 AP 115 | | | ALB 3.6 | | | TP 7.6 | | | Vitals on | | | discharge: | | | Ht 1.702 m | | | (5' 7"), Wt | | | 67.3 kg | | | (148 lb 4.8 | | | oz), BP | | | 178/93, | | | Pulse 49, | | | Temperature | | | 36.4 C | | | (97.5 F), | | | RR 16, | | | SpO2 97%, | | | BMI 23.23 | | | kg/(m^2).Ph | | | ysical Exam | | | on | | | discharge:G | | | eneral: | | | awake, | | | alert in | | | NADHEENT: | | | incision | | | c/d/i. | | | Slight | | | swelling | | | over the | | | right side | | | of the eye | | | 2/2 | | | post-surgic | | | al | | | changesResp | | | iratory: | | | Breathing | | | unlabored | | | on RA. | | | Outstanding | | | | | | labs/studie | | | s: | | | Surgical | | | Pathology | | | Discharging | | | Physician: | | | Romilla | | | Bijlani, | | | PA-CAttendi | | | ng | | | Physician: | | | Shlomo Roach, | | | CLEMENTINE spent | | | 52 minutes | | | in the care | | | of this | | | patient. | | | Greater | | | than 50% of | | | the time | | | was spent | | | counseling | | | and | | | coordinatio | | | n of care, | | | including | | | physical | | | examination | | | , wound | | | management | | | and | | | coordinatin | | | g follow-up | | | | | | appointment | | | . ROMILLA | | | BIJLANI, | | | PA-CDepartm | | | ent of | | | Otolaryngol | | | ogy/Head | | | and Neck | | | SurgeryMail | | | Code | | | [id number] | | | [place] | | | [place] | | | [place] | | [facility] [place] | | | [phone] | | | [phone] | | | | | | [phone] | | | t/Night/Wee | | | kend Pager: | | | [phone] | +---+ + +--------+ +---+ + + | 04/22/ | Procedure | | | | | 2017 | Pass | | | | +--------+ +---+ + + | 04/22/ | Surgery | | Shlomo Roach MD | EXCISION OF SKIN | | 2016 | | | | CANCER OF FACE 5X7 | | | | | | CM, 4X5 CM & 8X8 CM, | | | | | | AND NECK WITH LOCAL | | | | | | ADVANCEMENT FLAPS. 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 | | | | | | (HCC) (Primary Dx) | +--------+ +---+ + + | 04/21/ | Office | | Galina Gutierrez, | Preoperative | | 2016 | Visit | | | examination (Primary | | | | | | Dx); SCCA (squamous | | | | | | cell carcinoma) of | | | | | | skin; History of | | | | | | liver transplant | | | | | | (HCC); Preop | | | | | | examination | +--------+ +---+ + + | 04/21/ | Anesthesia | | Galina Gutierrez, | | | 2016 | Event | | MD | | +--------+ +---+ + + | 04/21/ | Telephone | | Racheal Miguel | Referral to social | | 2016 | | | | worker | +--------+ +---+ + + from Last 3 Months Immunizations + + + + | Name | Dates Previously Given | Next Due | + + + + | Influenza Injectable | 04/23/2017 | | | Quadrivalent (IIV4 | | | | P-Free) | | | + + + + Family History + + +------+ + | Medical History | Relation | Name | Comments | + + +------+ + | Diabetes | Brother | | | + + +------+ + | Cancer | Father | | skin cancer | + + +------+ + | Melanoma | Father | | | + + +------+ + | Diabetes | Mother | | | + + +------+ + + +------+ + + | Relation | Name | Status | Comments | + +------+ + + | Brother | | | | + +------+ + + | Father | | | | + +------+ + + | Mother | | | | | | | (Age | | | | | 73) | | + +------+ + + Social History + + + [...] on file | | + + + Last Filed Vital Signs + + + [...] PM PDT | + + + + Plan of Treatment +--------+---------+ + + + | Date | Type | Specialty | Care Team | Description | +--------+---------+ + + + | 11/17/ | Office | | Brittney Pratt | | | 2018 | Visit | | MD [facility] [address] | | | | | | [place], [place] | | | | | | [address] | | | | | | [phone] | | | | | | | | +--------+---------+ + + + + + + + + | Health Maintenance | Due Date | Last Done | Comments | + + + + + | INFLUENZA VACCINE | Completed | 04/23/2017, 08/23/2016 | | | (FLU SHOT) | | | | + + + + + Procedures + +--------+ + + + | [...] | + +--------+ + + + | [place] COLLECTION VENOUS | Routin | 04/21/2017 | Preoperative | | | BLOOD,VENIPUNCTURE | e | 11:52 AM | examination | | | | | PDT | | | + +--------+ + + + from Last 3 Months Results OPERATION RECORD (04/23/2017 5:00 PM) + + | Procedure Note | + + | Shlomo Roach MD - 04/22/2017 4:12 PM PDT Date of Service: 04/22/2017 Attending | | Surgeon:Shlomo Roach MD Stove Carriage Operator(s):Richard Clemente MD. | | Preoperative Diagnosis: Skin [...] | extubated, and will be followed carefully.EVAN Delgadillo/MICHAELD: 04/22/2017 15:12:11DT: | | 04/22/2017 16:12:47Job #: [id number] | |There was no evidence of any bleeding or hematomas. All flaps looked viable at the end of the procedure. He was woken up, extubated, and will be followed carefully. | | | | | | | |Shlomo Roach MD | |TELLY/SABRA | | | | | | /[id number] | + + PROCEDURE NOTE (04/22/2017 3:55 PM) + + | Narrative | + + | Richard Clemente MD 04/22/2017 3:55 PM Department of Otolaryngology/Head and | | Neck Surgery BRIEF OPERATIVE NOTE v1.0 Marissa Michaels [id number] | | Procedure Date: 04/22/17 Attending Physician: [...] normal Diet: | | regular Thromboprophylaxis/Anticoagulation: ambulation [place]: n/a Richard Clemente MD | | | + + INTRAPROCEDURE IMAGING (04/22/2017 12:40 PM) + + | Narrative | + + | See admission or procedure notes for details of any intraprocedure images obtained. | + + CARDIOLOGY (04/22/2017)SURGICAL PATHOLOGY (04/22/2017) + + + + | [...] [facility]/ Surgical Pathology | | | | Rolando Wharton M.D./ | | | | Pathologist [...] Laboratory | + + + | | [facility] [id number] [facility] | | | [place] [address] | + + + 12 LEAD ECG (04/21/2017 11:35 AM) + + + + | Component | Value | Ref Range | + + + + | VENTRICULAR RATE | 52 | bpm | + + + + | ATRIAL RATE | 52 | ms | + + + + | P-R INTERVAL | 140 | ms | + + + + | P AXIS | 23 | deg | + + + + | QRS DURATION | 104 | ms | + + + + | QT | 503 | ms | + + + + | QTCB | 468 | ms | + + + + | R AXIS | -22 | deg | + + + + | T AXIS | 20 | deg | + + + + | ECG IMPRESSION | Sinus bradycardia | | + + + + | ECG IMPRESSION | Left ventricular hypertrophy- ABNORMAL ECG | | | | - | | + + + + | ECG IMPRESSION | Electronically signed by: MARISSA GRAF | | | | 04-21-2017 12:09:15 | | + + + + + + + | Specimen | Performing Laboratory | + + + | | [facility] [address] [place] [address] | | | [place] [id number] | + + + CBC (HEMOGRAM) ONLY (04/21/2017 11:31 AM) + +---------+ + | Component | Value | Ref Range | + +---------+ + | WHITE CELL COUNT | 5.71 | 3.50 - 10.80 K/cu mm | + +---------+ + | RED CELL COUNT | 5.03 | 4.50 - 6.00 M/cu mm | + +---------+ + | HEMOGLOBIN | 15.2 | 13.5 - 17.5 g/dL | + +---------+ + | HEMATOCRIT | 44.4 | 41.0 - 53.0 % | + +---------+ + | MCV | 88.3 | 80.0 - 96.0 fL | + +---------+ + | MCHC | 34.2 | 33.0 - 35.5 g/dL | + +---------+ + | RDW SD | 42.4 | 35.1 - 46.3 fL | + +---------+ + | PLATELET COUNT | 187 | 150 - 400 K/cu mm | + +---------+ + | MPV | 9.1 (L) | 9.7 - 12.3 fL | + +---------+ + | NRBC% | 0.0 | 0.0 - 0.3 % | + +---------+ + | NRBC# | 0.00 | 0.00 - 0.02 K/cu mm | + +---------+ + + + + | Specimen | Performing Laboratory | + + + | Blood | [facility], [address] | | | [place] [address] | + + + CONFIRMATORY ABO/RH (04/21/2017 11:31 AM) + + + + | Component | Value | Ref Range | + + + + | ABO Group | O | | + + + + | Rh Type | Positive | | + + + + + + + | Specimen | Performing Laboratory | + + + | Blood | [facility], [facility] [address] [facility] | | | [place] [address] | + + + COMPLETE METABOLIC SET (NA,K,CL,CO2,BUN,CREAT,GLUC,CA,AST,ALT,BILI TOTAL,ALK PHOS,ALB,PROT TOTAL) (04/21/2017 11:31 AM) + + + + | Component | Value | Ref Range | + + + + | GLUCOSE, PLASMA | 102 (H) | 70 - 99 mg/dL | | (LAB) | | | + + + + | BUN, PLASMA (LAB) | 12 | 6 - 20 mg/dL | + + + + | CREATININE PLASMA | 1.34 (H) | 0.70 - 1.30 mg/dL | | (LAB) | | | + + + + | EGFR - | >60 | >60 mL/min | | [facility] | | | + + + + | EGFR NON | 55 (L) | >60 mL/min | | -[facility] | | | + + + + | SODIUM, PLASMA (LAB) | 137 | 136 - 145 mmol/L | + + + + | POTASSIUM, PLASMA | 4.7 | 3.4 - 5.0 mmol/L | | (LAB) | | | + + + + | CHLORIDE, PLASMA | 103 | 97 - 108 mmol/L | | (LAB) | | | + + + + | TOTAL CO2, PLASMA | 27 | 21 - 32 mmol/L | | (LAB) | | | + + + + | CALCIUM, PLASMA | 9.1 | 8.6 - 10.2 mg/dL | | (LAB) | | | + + + + | CALCIUM(ALB | 9.4 | 8.6 - 10.2 mg/dL | | CORRECTED) | | | + + + + | BILIRUBIN TOTAL | 0.6 | 0.3 - 1.2 mg/dL | + + + + | TOTAL PROTEIN, | 7.6 | 6.4 - 8.2 g/dL | | PLASMA (LAB) | | | + + + + | ALBUMIN, PLASMA | 3.6 | 3.5 - 4.7 g/dL | | (LAB) | | | + + + + | ALK PHOS | 115 | 53 - 128 U/L | + + + + | AST(SGOT) | 70 (H) | <=41 U/L | + + + + | ALT (SGPT) | 79 (H) | <=60 U/L | + + + + | ANION GAP | 7 | mmol/L | + + + + | ANION GAP(ALB | 8 | 4 - 11 mmol/L | | CORRECTED) | | | + + + + | POTASSIUM CMNT | No Hemo | | + + + + | BILI T CMNT | No Hemo | | + + + + | AST CMNT | No Hemo | | + + + + + + + | Specimen | Performing Laboratory | + + + | Blood | [facility], [facility] [address] [facility] [facility] | | | [place] [address] | + + + + + | Narrative | + + | Adult glucose reference range change effective 7-12-17. GFR is estimated using the | | MDRD equation recommended by the National Kidney Disease Education Program. | | Estimated GFR Interpretive Information: <60 mL/min/1.73 sq | | m Chronic Kidney Disease <15 mL/min/1.73 sq | | m Kidney Failure Estimated GFR greater that 60 mL/min/1.73 | | sq m is of limited clinical value. The MDRD equation is not valid in the following | | situations: - Patients under 18 years of age - Severe malnutrition or obesity - | | Vegetarian diet - Rapidly changing kidney function | + + CBC ONLY (04/21/2017 11:31 AM) + + + | Specimen | Performing Laboratory | + + + | Blood | | + + + + + | Narrative | + + | The following orders were created for panel order CBC ONLY. | | Procedure | | Abnormality Status | | --------- | | ------ CBC (HEMOGRAM) | | ONLY[[id number]] Abnormal Final | | result Please view results for these tests on the | | individual orders. | + + ANTIBODY SCREEN (04/21/2017 11:31 AM) + + + + | Component | Value | Ref Range | + + + + | Antibody Screen | Negative | | + + + + + + + | Specimen | Performing Laboratory | + + + | Blood | [facility], [facility] [address] | | | [place] [address] | + + + TYPE AND SCREEN (04/21/2017 11:31 AM) + + + | Specimen | Performing Laboratory | + + + | Blood | | + + + + + | Narrative | + + | The following orders were created for panel order TYPE AND SCREEN. | | Procedure | | Abnormality Status | | --------- | | ------ ABO & RH | | TYPE[[id number]] F | | inal result ANTIBODY | | SCREEN[[id number]] Fin | | al result Please view results for these tests on the | | individual orders. | + + ABO & RH TYPE (04/21/2017 11:31 AM) + + + + | Component | Value | Ref Range | + + + + | ABO Group | O | | + + + + | Rh Type | Positive | | + + + + + + + | Specimen | Performing Laboratory | + + + | Blood | [facility], [facility] [address] [facility] | | | [place] [address] | + + + HEMOGLOBIN A1C, BLOOD (04/21/2017 11:31 AM) + + + + | Component | Value | Ref Range | + + + + | HEMOGLOBIN A1C | 5.5Comment: Hgb A1C Interpretive | <5.7 % | | | Information: <5.7% - Normal | | | | 5.7-6.4% - Consistent with | | | | pre-diabetes >6.4% - Consistent | | | | with diabetes | | | | 5.7-6.4% - Consistent with pre-diabetes | | | | >6.4% - Consistent with diabetes | | | | | | | | | | + + + + + + + | Specimen | Performing Laboratory | + + + | Blood | [facility], [facility] [address] | | | [place] [address] | + + + + + | Narrative | + + | Alternate forms of testing such as fructosamine should be considered for | | monitoring vermin exterminator glycemic control in patients with: Increased red cell turnover, | | certain hemoglobinopathies (e.g., HbS, HbE, HbC and thalassemia syndromes), anemias, | | blood loss, chronic liver disease and hemochromatosis (artefactually low HbA1c); iron | | deficiency anemia (artefactually high HbA1c due to enhanced glycation of hemoglobin). | | | + + from Last 3 Months
--- OUTSIDE RECORDS SUMMARY | 2017-07-14 19:24 | XMS | Encounter Summary ---
Demographics + + + | Address | [address] | | | [place] [address] | + + + | Home Phone | | + + + | Preferred Language | Unknown | + + + | Marital Status | Single | + + + | Church Affiliation | BAP | + + + | Race | White | + + + | Ethnic Group | Not or | + + + Author + + + | Author | [facility] | + + + | Organization | [facility] | + + + | Address | Unknown | + + + | Phone | Unavailable | + + + Support +------+ +---------+ + | Name | Relationship | Address | Phone | +------+ +---------+ + ECON | Unknown | | +------+ +---------+ + Care Team Providers + +------+-------+ | Care Account Executive Trainee Name | Role | Phone | + +------+-------+ | Ritesh England PA-C | PCP | tel | + +------+-------+ Reason for Visit + + + | Reason | Comments | + + + | Pre-operative | | | evaluation | | + + + Encounter Details +--------+---------+ + + + | Date | Type | Department | Care Team | Description | +--------+---------+ + + + | 04/21/ | Office | Preoperative | Galina Gutierrez, | Preoperative | | 2017 | Visit | Medicine Clinic at | [address] | examination (Primary | | | | [facility] 4th Floor Day | [address] | Dx); SCCA (squamous | | | | Stay [address] | [place], [place] | cell carcinoma) of | | | | [address] | [address] | skin; History of | | | | Mailcode: [id number] | [phone] | liver transplant | | | | Peter Valdes | | ([facility]); Preop | | | | [address], [place] | | examination | | | | [address] | | | | | | | | | +--------+---------+ + + + Anesthesia Record + + + + + | Procedure Name | Responsible | Anesthesia Start | Anesthesia Stop Time | | | Anesthesiologist | Time | | + + + + + | FACE/ HEAD/NECK | Lakshmi Choudhary MD | 04/22/17 1332 | 04/22/17 6170 | | EXCISION (Right | | | [...] | Meds | +------+ + + + No medications | on file. | + + + + + | [...] | on | Upper; face | Adriana Valente, RN | | +--------+ + + + | Incisi | 04/22/17; Lalozi; Right; Medial; | 04/22/17 0000 by | | | on | face | Adriana Victor RN | | +--------+ + + + | Periph | 04/22/17; 1300; Left; Forearm; 20 | 04/22/17 1300 by | 04/23/17 1053 by | | eral | g; None; Positive; 04/23/17; | Han [...] + + + | Blood Pressure | 187/120 | 04/21/2017 11:27 AM PDT | + + + + | Pulse | 65 | 04/21/2017 11:27 AM PDT | + + + + | Temperature | 36.4 C (97.6 F) | 04/21/2017 11:27 AM PDT | + + + + | Respiratory Rate | 20 | 04/21/2017 11:27 AM PDT | + + + + | Oxygen Saturation | 98% | 04/21/2017 11:27 AM PDT | + + + + | Inhaled Oxygen | - | - | | Concentration | | | + + + + | Weight | 70.1 kg (154 lb 9.6 | 04/21/2017 11:27 AM PDT | | | oz) | | + + + + | Height | 171.5 cm (5' 7.5") | 04/21/2017 11:27 AM PDT | + + + + | Body Mass Index | 23.86 | 04/21/2017 11:27 AM PDT | + + + + in this encounter Instructions Patient Instructions - Galina Gutierrez MD - 04/21/2017 2:05 PM PDT PREOPERATIVE INSTRUCTIONS Empty stomach before surgery NOTHING to eat or drink after midnight the night before surgery. This includes water, coffee, candy, mints, gum. Medications Instructions Take one extra pill of Amlodipine today Take 2 Amlodipine pills tomorrow morning before coming in for surgery (with just a sip o f water) On the evening before your surgery, take ALL your usual evening medications On the morning of surgery TAKE the following medications with a sip of water: All your morning medications Skin preparation to help avoid surgical site infections HIBICLENS GUIDE TO GENERAL SKIN CLEANSING AT HOME BEFORE SURGERY When you bathe or shower the night before your surgery: ? If you plan to wash your hair, do so with your regular shampoo. Then rinse hair and body thoroughly to remove any shampoo residue. ? Wash your face with your regular soap or water only. ? Thoroughly rinse your body with warm water from neck down. ? Use Hibiclens as you would any other liquid soap. Please do not put the Hibiclens on a wa sh cloth, apply directly to the skin and wash gently. Apply the minimum amount of Hibiclens necessary to cover the skin. Leave the Hibiclens on your skin for 1 minute, then rinse off. ? Rinse thoroughly with warm water. ? Do not use your regular soap after applying and rinsing Hibiclens. When using Hibiclens for a second day in a row (morning of surgery, as soon as you wake up) : ? Shower/bathe again using Hibiclens in the same method as described above. ? Do not apply any lotions, deodorants, powders or perfumes to the body areas that have been cleaned with Hibiclens. Other Important Guidelines ? Do not shave the surgical area Do not smoke, drink alcohol or use recreational drugs for 24 hours before your surgery Watch for any change in your health condition. Let your surgeon know right away if you do not feel well. ? Do not wear makeup, perfume, lotions, deodorant, powder or hairspray. Do not wear any jewelry to the hospital. Wear loose, comfortable clothing. Leave all your valuables at home. Allow enough travel time so you re not late for your check in for surgery. Please remember to brush your teeth the night before and the morning of your procedure. Preventing post op complications while you are in the hospital Use an incentive spirometer or peep breathe to keep your lungs working properly an d to help prevent respiratory complications. It helps you take long, deep breaths. Use it at least once every hour while you are awake. Leg and feet exercises will maintain good circulation and help prevent blood clots in yo ur legs. Sometimes your doctor will order sequential air compression stockings. Compressed air helps the circulation in your legs. Walking and moving will help stimulate normal circulation and deep breathing. After you r surgery, your nurse may ask you to sit, stand or walk. Surgery check-in location: Admitting - [facility], ninth floor lobby Surgery Check in Time: The Preoperative Medicine Clinic is not in the position to give you accurate information regarding surgical check in time. We refer you back to your surgical office regarding this important information. Going Home Your surgical team will decide when you are medically ready to go home. If you stayed in the hospital after surgery, please arrange for your ride to come for yo u around 9AM on the day your doctor says you can go home. If you have questions or concerns after you go home, call your doctor s office. If it is after office hours, call the [facility] wrapping machine operator at [phone] and ask them to page him or h er. in this encounter Progress Notes Galina Gutierrez MD - 04/21/2017 2:05 PM PDTFormatting of this note may be different from the original. PREOPERATIVE CONSULT NOTE Author: Galina Gutierrez MD Referring Physician: Dr. Roach Primary Care Provider: Ritesh England PA-C Reason for Consult: Preoperative evaluation and risk assessment Proposed Procedure/Date: Surgical excision SSCa of the face 04/22/2017 HISTORY OF PRESENT ILLNESS: Marissa Michaels Jr. is a 57 y.o. male here for preoperative evaluation of medical problems in anticipation of the above procedure. Pt has dx of SSCa of the face. Pt reports he had melanoma on that side of the face in 2004. Since that time, abdiel barrera had a liver transplant and is on chronic immune suppression and now has SSCa on the same s arelis of the face. He reports that he has a fam hx of skin cancers. Pertinent medical problems discussed during this visit: S/P Liver transplant in 2011 -- pt on immune suppression, being followed at [facility]. 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 Pt reports no symptoms since that time. He is not on diuretics. His functional capacity is good. He was unable to follow up with his cardiology appoitnemnt because his medical trans portation failed to show. HTN -- poorly controlled. Pt reports having taking his medication today. He just arriv ed (medical transport) from [place], [place]. His medications were verified because he brought all his bottles. He's taken metoprolol ER 100 mg and amlodipine 7.5 mg. Chronic severe facial pain -- pt used to be on oxycodone, but not longer. He has an liz t with the Pain Clinic at [facility] at the end of April. Perioperative cardiac risks: CAD no CHF yes CVA no CKD with creatinine >2 no DM treated with insulin no Functional Capacity: Moderate (4-10 mets) Prior complications of anesthesia: none ROS: Pulmonary: no cough no shortness of breath Pt. Has no asthma no COPD No dx of sleep apnea Cardiovascular: Functional Capacity: Moderate - cyanosis, PND, palpitations, chest pressure and syncope no CAD CHF EF by Echo: 35 NYHA Classification:I hypertension poorly controlled no pacemaker GI/Hepatic: no GI Bleed no GERD liver disease (s/p liver tx) no hepatitis no OTHER GI : renal failure no dialysis Endo: no Diabetes: Neurological: no seizures no HX CORTICOSTEROID no psychiatric problem no dementia pain Chronic pain > 6 months Current Pain Level: Current pain level: 6 MS: no arthritis Heme/Onc: Pt. has: no active bleeding no Bleeding diathesis / thrombotic bleeding Previous Transfusions: no transfusion hx Hx: no other heme, Malignancy: cancer (SSCa skin), Locatio n: Metastasis: Skin: No open wounds or sores No hx MRSA/VRE/Active skin infection Current medications reviewed / updated Current Outpatient Prescriptions Medication Sig amLODIPine 5 mg oral tablet Take 7.5 mg by mouth once daily. Indications: hypertension FLUoxetine 10 mg oral capsule Take 10 mg by mouth once daily. gabapentin 300 mg oral capsule TK ONE C PO QD metoprolol succinate 100 mg oral tablet extended release 24 hr TK 1 T PO QD mycophenolate (CELLCEPT) 250 mg oral capsule Take 2 capsules by mouth two times daily. Take with food. SIROLIMUS 1 mg oral tablet TAKE 2 TABLETS BY MOUTH EVERY MORNING Level of confidence in medication reconciliation accuracy: High Allergies reviewed / updated Allergies Allergen Reactions Morphine Nausea Past medical history reviewed / updated Past Medical History: Diagnosis Date Anxiety Chronic pain sounds like trigeminal neuralgia, right side of the face Hepatitis C Hypertension Liver cancer (HCC) was on hospice in 2009! Melanoma of face (HCC) 2005 Excision in 2004; reconstruction in 2013 NICM (nonischemic cardiomyopathy) (HCC) EF 35-40% Pericardial effusion 08/2016 SCCA (squamous cell carcinoma) of skin 09/17/2005 Past surgery reviewed / updated Past Surgical History Procedure Laterality Date Liver transplant 2011 At [facility] Skin cancer excision 2003 Family history reviewed / updated Family History Problem Relation Diabetes Mother Cancer Father skin cancer Diabetes Brother Social history reviewed / updated Social History Substance Use Topics Smoking status: Current Every Day Smoker Packs/day: 0.50 Years: 25.00 Types: Cigarettes Smokeless tobacco: Never Used Alcohol use No PHYSICAL EXAM: Last Vitals: BP 187/120 | Pulse 65 | Temp (Src) 36.4 C (97.6 F) (Oral) | RR 20 | Ht 1.7 15 m (5' 7.5") | Wt 70.1 kg (154 lb 9.6 oz) | SpO2 98% | BMI 23.86 kg/(m^2) Body mass index is 23.86 kg/(m^2). General: Patients general appearance: Alert, No distress, Cooperative and Age appropriate Head & Neck/Airway: NC/AT; PERRL; EOMI; nl appearing ears and nose. Neck ROM: full TM Distance:Normal Dentition: missing teeth and chipped teeth Kwon: Yes Mallampati: III Mouth Opening: > = 3 cm C-Spine: limited flexion & extension Neck Anatomy: Normal Jaw Protr usion: Normal, lower incisors can protrude past upper incisors Lung Exam: No respiratory distress. Normal breathing pattern. breath sounds normal Cardiac: No murmurs, gallops or rubs. Rhythm: regular Rate: normal Abdominal: General Findings: no abdominal tenderness and Nondistended Bowel Sounds: bowel sounds are normal Musculoskeletal: Findings: tone normal Neuro/Psych: No focal neuro deficits; Alert and appropriate; nl affect. alert Findings: Cr anial nerves 2-12 intact, Motor 5/5 strength globally with normal tone, Soft & sharp sensati on normal, No tremor, Alert, oriented to person, place, time and Normal affect Integument: Skin cancers over face - lesion, rash and open wounds Color: pink Texture: Skin texture - normal Turgor: turgor normal Implants: None, LABS & DATA REVIEWED/ORDERED Lab Results Component Value Date WBC 5.71 04/21/2017 HB 15.2 04/21/2017 HCT 44.4 04/21/2017 PLT 187 04/21/2017 MCV 88.3 04/21/2017 RDW 42.4 04/21/2017 Lab Results Component Value Date NA 137 04/21/2017 K 4.7 04/21/2017 CL 103 04/21/2017 BICARB 27 04/21/2017 BUN 12 04/21/2017 CR 1.34 04/21/2017 GLU 102 04/21/2017 CA 9.1 04/21/2017 AST 70 04/21/2017 ALT 79 04/21/2017 AP 115 04/21/2017 TBILI 0.6 04/21/2017 TP 7.6 04/21/2017 ALB 3.6 04/21/2017 DIRBILI 0.3 08/06/2015 No results found for: ABO, RH No results found for: A1C EKG: Personally reviewed. Sinus bradycardia, HR 59/min; LVH Outside records reviewed from CareEverywhere and "media" tab. Findings pertinent to this pr eoperative visit are as follows: echo and nuclear stress test from [facility] noted. (Aug) Perioperative risk calculators 2014 ACC/AHA Perioperative Cardiac Risk Stratification (assumes non-emergent, non-cardiac p rocedure) Are active cardiac conditions present? No Calculate the combined surgical and patient-specific risk: using the Santana perioperative ca rdiac risk calculator, the risk of major adverse cardiac event (MACE) is: less than 1%. No further risk stratification for coronary disease is indicated. Estimated ASA class 3 Other perioperative risk calculators: Not Applicable ASSESSMENT and RECOMMENDATIONS: Perioperative risk assessment: Marissa Michaels Jr. is a 57 y.o. male with diagnosis of SSCa of the face, scheduled for surgical excision. Based on the clinical information ob tained and reviewed during this visit, the overall assessment is that the patient is having elective major surgery with identified risk factors. The patient is stable / optimized for surgery. Additional testing/optimization is not needed. Medication management recommendations: The patient was advised to continue all usual med ications except as noted in Patient Instructions (After Visit Summary given to pt) Pre-procedure antibiotic recommendation: Per standard protocol. HTN -- not well controlled. Pt was instructed to double his amlodipine dose and (hopefu lly) be ready for surgery tomorrow S/P liver tx -- on chronic immune suppression -- pt to continue usual meds Difficult social situation -- pt has no funds to stay in [facility] for surgery tomorrow. I'm trying to determine if group social worker available to find him a housing voucher so that he salcedo s not have to go back to [facility] [place] in AM for surgery. Chronic facial pain -- pt has appt for the pain clinic towards the end of Apr. It woul d be useful to have the APS see him while he's in the hospital after the surgery, shagufta nick how difficult it is for him to get transportation from [facility] Thank you for the opportunity to contribute to this patient's care. Galina Gutierrez MD [facility] PREOPERATIVE MEDICINE CLINIC AT [facility] 4TH FLOOR DAY STAY [address] [facility] [address] I spent time (50 minutes, >50% of the visit) counseling the pt regarding perioperative risk (cardiac/bleeding/ DVT/ respiratory failure/ infection, etc) and methods to mitigate risk. I advised the patient regarding NPO requirements, hydration before surgery, showering, gen eral body hygiene. All pre-procedure instructions given to the patient (after-visit summary ). All of patient's questions were addressed. The patient verbalized understanding of the instructions given. Oswald Durbin MA - 04/21/2017 11:52 AM PDT Venipuncture performed in clinic, blood sample obtained from Right antecubital site in this encounter Plan of Treatment +--------+---------+ + + + | Date | Type | Specialty | Care Team | Description | +--------+---------+ + + + | 11/17/ | Office | Liver Transplant | Brittney Pratt | | | 2018 | Visit | | MD Kiah [address] | | | | | | [place], [place] | | | | | | [address] | | | | | | [phone] | | | | | | | | +--------+---------+ + + + + +--------+ + + | Name | Priori | Associated Diagnoses | Order Schedule | | | ty | | | + +--------+ + + | COMMUNICATION TO [facility] LAB DRAW | Routin | Preoperative | Ordered: 04/21/2017 | | | e | examination | | + +--------+ + + as of this encounter Procedures + +--------+ + + + | Procedure Name | Priori | Date/Time | Associated Diagnosis | Comments | | | ty | | | | + +--------+ + + + | ID COLLECTION VENOUS | Routin | 04/21/2017 | Preoperative | | | BLOOD,VENIPUNCTURE | e | 11:52 AM | examination | | | | | PDT | | | + +--------+ + + + in this encounter Results 12 LEAD ECG (04/21/2017 11:35 AM) + [...] Laboratory | + + + | | [facility] [address] [place] [address] | | | [place] [address] | + + + CONFIRMATORY ABO/RH (04/21/2017 11:31 AM) + + + + | Component | Value | Ref Range | + + + + | ABO Group | O | | + + + + | Rh Type | Positive | | + + + + + + + | Specimen | Performing Laboratory | + + + | Blood | [facility], TRANSFUSION MEDICINE [address] [place] [address] | | | [place] [address] | + + + CBC (HEMOGRAM) ONLY [...] | + + + | Blood | [facility], CORE [address] [address] | | | [place] [address] | + + + ANTIBODY SCREEN (04/21/2017 11:31 AM) + + + + | Component | Value | Ref Range | + + + + | Antibody Screen | Negative | | + + + + + + + | Specimen | Performing Laboratory | + + + | Blood | [facility], TRANSFUSION MEDICINE [address] [facility] | | | [place] [address] | + + + ABO & RH TYPE (04/21/2017 11:31 AM) + + + + | Component | Value | Ref Range | + + + + | ABO Group | O | | + + + + | Rh Type | Positive | | + + + + + + + | Specimen | Performing Laboratory | + + + | Blood | [facility], TRANSFUSION MEDICINE [address] [facility] [address] | | | [place] [address] | + + + TYPE AND SCREEN [...] | ------ ABO & RH | | TYPE[[id number]] F | | inal result ANTIBODY | | SCREEN[[id number]] Fin | | al result Please view results for these tests on the | | individual orders. | + + CBC ONLY (04/21/2017 11:31 AM) + + + | Specimen | Performing Laboratory | + + + | Blood | | + + + + + | Narrative | + + | The following orders were created for panel order CBC ONLY. | | Procedure | | Abnormality Status | | --------- | | ------ CBC (HEMOGRAM) | | ONLY[[id number]] Abnormal Final | | result Please view results for these tests on the | | individual orders. | + + HEMOGLOBIN A1C, BLOOD (04/21/2017 11:31 [...] | + + + | Blood | [facility], SPECIAL [facility] [address] [facility] | | | [place] [address] | + + + + + | Narrative | + + | Alternate forms of testing such as fructosamine should be considered for | | monitoring custodial glycemic control in patients with: Increased red cell turnover, | | certain hemoglobinopathies (e.g., HbS, HbE, HbC and thalassemia syndromes), anemias, | | blood loss, chronic liver disease and hemochromatosis (artefactually low HbA1c); iron | | deficiency anemia (artefactually high HbA1c due to enhanced glycation of hemoglobin). | | | + + COMPLETE METABOLIC SET (NA,K,CL,CO2,BUN,CREAT,GLUC,CA,AST,ALT,BILI TOTAL,ALK [...] | >60 | >60 mL/min | | ANDORRAN | | | + + + + | EGFR NON | 55 (L) | >60 mL/min | | -ANDORRAN | | | + + + + [...] | + + + | Blood | [facility], CORE [address] | | | [place] [address] | + + + + + | [...] Rapidly changing kidney function | + + in this encounter Visit Diagnoses + + | Diagnosis | + + | Preoperative examination - Primary | + + | Preoperative examination, unspecified | + + | SCCA (squamous cell carcinoma) of skin | + + | History of liver transplant (HCC) | + + | Liver replaced by transplant | + + | Preop examination | + + | Preoperative examination, unspecified | + +
--- NOTE | 2017-07-15 08:05 | EKG ---
[facility] [address] [facility] [place] [address] Signed Sinus bradycardia Left ventricular hypertrophy with repolarization abnormality Cannot rule out Septal infarct , age undetermined Abnormal ECG When compared with ECG of 22-AUG-2016 11:12, premature supraventricular complexes are no longer present Vent. rate has decreased BY 34 BPM Questionable change in QRS axis Nonspecific T wave abnormality no longer evident in Lateral leads Confirmed by DANIEL PANTOJA MD ([id number]) on 07/15/2017 8:05:38 AM Electronically Signed By: DANIEL PANTOJA MD 07/15/17 0805 PATIENT NAME: CHITRA MARISSA DHILLON Electrocardiogram DATE OF : 56 PHYSICIAN: DANIEL PANTOJA MD REPORT #: [id number] REPORT IS CONFIDENTIAL AND NOT TO BE RELEASED WITHOUT AUTHORIZATION
== END 2017-07-14 21:30 | disposition home or self-care (01) ==
LOC: ED 18:28
DX: R55 Syncope and collapse (principal); I10 Essential (primary) hypertension; Z85.05 Personal history of malignant neoplasm of liver; Z85.828 Personal history of other malignant neoplasm of skin; Z87.442 Personal history of urinary calculi; Z88.5 Allergy status to narcotic agent; Z88.6 Allergy status to analgesic agent; F17.200 Nicotine dependence, unspecified, uncomplicated; Z79.899 Other long term (current) drug therapy; Z94.4 Liver transplant status; Z98.890 Other specified postprocedural states
CPT/HCPCS: 70450; 71010; 80053; 81001; 85025; 93005; 93010; 96360; 96361; 99284; J7030

== ENCOUNTER 2017-08-01 21:21 | Emergency (ER) | payer MEDICARE, OTHER ==
[~2017-08-01] VITALS: Ht 170.2 cm; Wt 65.8 kg
--- OUTSIDE RECORDS SUMMARY | 2017-08-01 22:32 | XMS | Encounter Summary ---
Demographics + + + | Address | [address] | | | [place] [address] | + + + | Home Phone | | + + + | Preferred Language | Unknown | + + + | Marital Status | Single | + + + | Catholic Affiliation | BAP | + + + [...] Care Team Providers + +------+-------+ | Care Machine Tool Mechanic Name | Role | Phone | + +------+-------+ | Ritesh England PA-C | PCP | tel | + +------+-------+ Encounter Details +--------+ + + + + | Date | Type | Department | Care Team | Description | +--------+ + + + + | 05/04/ | Pharmacy | Outpatient Retail | | | | 2016 | Visit | [facility] | | | | | | [address] | | | | | | [place] | | | | | | [place], [place] | | | | | | [address] | | | +--------+ + + + + Social History + + [...] 2017 | Visit | | MD [facility]iah [address] | | | | | | [place], [place] | | | | | | [address] | | | | | | [phone] | | | | | | | | +--------+---------+ + + + as of this encounter Visit Diagnoses Not on filein this encounter"
--- OUTSIDE RECORDS SUMMARY | 2017-08-01 22:32 | XMS | Clinical Summary ---
Demographics + + + | Address | [address] | | | [place] [address] | + + + | Home Phone | | + + + | Preferred Language | Unknown | + + + | Marital Status | Single | + + + | Confucianism Affiliation | BAP | + + + [...] Care Team Providers + +------+-------+ | Care Mill Platform Supervisor Name | Role | Phone | + +------+-------+ | Ritesh England PA-C | PP | tel | + +------+-------+ Source Comments SHILA is fully live on both [facility] and [facility] InPatient.[facility] Allergies + + + + + [...] | | +--------+ + + + + from Last 3 Months Immunizations [...] 2018 | Visit | | MD [facility]iah [address] | | | | | | [place], [place] | | | | | | [address] | | | | | | [phone] | | | | | | | | +--------+---------+ + + + + + + + + | Health Maintenance | Due Date | Last Done | Comments | + + + + + | INFLUENZA VACCINE | Completed | 04/23/2017, 08/23/2016 | | | (FLU SHOT) | | | | + + + + + Results Not on filefrom Last 3 Months
--- OUTSIDE RECORDS SUMMARY | 2017-08-01 22:32 | XMS | Encounter Summary ---
Demographics + + + | Address | [address] | | | [place] [address] | + + + | Home Phone | | + + + | Preferred Language | Unknown | + + + | Marital Status | Single | + + + | Samaritan Affiliation | BAP | + + + | Race | White | + + + | Ethnic Group | Not or | + + + Author + + + | Author | [facility] | + + + | Organization | [facility] | + + + | Address | Unknown | + + + | Phone | Unavailable | + + + Support +------+ +---------+ + | Name | Relationship | Address | Phone | +------+ +---------+ + ECON | Unknown | | +------+ +---------+ + Care Team Providers + +------+-------+ | Care Quality Control Lab Technician Name | Role | Phone | + [...] | | Coordinators [address] Jamarcus Dupont MD [address] | | | | | [address] | [place], [place] | | | | | [place], [place] | [address] | | | | | [address] | [phone] | | | | | [phone] | | | +--------+--------+ + + + [...] 2017 | Visit | | MD Bruce [address] | | | | | | [place], [place] | | | | | | [address] | | | | | | [phone] | | | | | | | | +--------+---------+ + + + as of this encounter Visit Diagnoses Not on filein this encounter"
[2017-08-01] MEDS ORDERED: CEPHALEXIN500 MG PO (23:21)
--- NOTE | 2017-08-02 06:45 | EKG ---
[facility] [address] [place] [address] Signed Sinus tachycardia Otherwise normal ECG When compared with ECG of 14-JUL-2017 19:39, Vent. rate has increased BY 48 BPM Non-specific change in ST segment in Inferior leads T wave inversion now evident in Inferior leads Confirmed by BENSON CALIX MD ([id number]) on 08/02/2017 6:44:57 AM Electronically Signed By: BENSON CALIX MD 08/02/17 0645 PATIENT NAME: MARISSA BUENROSTRO Electrocardiogram DATE OF : 56 PHYSICIAN: BENSON CALIX MD REPORT #: [id number] REPORT IS CONFIDENTIAL AND NOT TO BE RELEASED WITHOUT AUTHORIZATION
== END 2017-08-01 23:32 | disposition home or self-care (01) ==
LOC: ED 21:21
DX: I48.91 Unspecified atrial fibrillation (principal); I10 Essential (primary) hypertension; F17.200 Nicotine dependence, unspecified, uncomplicated; Z85.05 Personal history of malignant neoplasm of liver; Z85.828 Personal history of other malignant neoplasm of skin; Z88.5 Allergy status to narcotic agent; Z88.6 Allergy status to analgesic agent; Z79.899 Other long term (current) drug therapy; Z87.442 Personal history of urinary calculi
CPT/HCPCS: 71010; 80053; 83735; 84484; 85025; 93005; 93010; 99283

== ENCOUNTER 2017-08-30 20:50 | Emergency (ER) | payer MEDICARE, OTHER ==
[~2017-08-30] VITALS: Ht 170.2 cm; Wt 69.8 kg
[~2017-08-30 20:50] MED LIST changes: +CEPHALEXIN500 MG PO
--- OUTSIDE RECORDS SUMMARY | 2017-08-30 20:55 | XMS | Clinical Summary ---
Demographics + + + | Address | [address] | | | [place] [address] | + + + | Home Phone [...] +------+ +---------+ + Care Team Providers + +------+ + | Care Stock Tracer Name | Role | Phone | + +------+ + | Ritesh England PA-C | PP | | + +------+ + Source Comments SHILA is fully live on both [facility] Ambulatory and [facility] InPatient.[facility] Allergies + + + + + + [...] T PO QD | | 3 | 02/2 | | Activ | | succinate 100 [...] oral | once daily. | | | 20 | | e | | tabletIndications: | Indications: | | | 17 | | | | hypertension | hypertension | | | | | | + + +---------+---------+------+------+-------+ | gabapentin 300 mg | TK ONE C PO QD | | 0 | 01/2 | | Activ | | oral capsule | | | | 4/20 | | e | | | | | | 17 | | | + + +---------+---------+------+------+-------+ | mycophenolate | Take 2 capsules by | 120 | 3 | 07/2 | | Activ | | (CELLCEPT) 250 mg | mouth two times | capsule | | 03/22 | | e | | oral capsule | daily. Take with | | | 17 | | | | | food. | | | | | | + + +---------+---------+------+------+-------+ | bacitracin 500 | Apply to affected | 1 g | 0 | 09/2 | | Activ | | unit/gram topical | area two times | | | 08/22 | | e | | ointmentIndications: | [...] | | | + + +---------+---------+------+------+-------+ | furosemide 20 mg | once daily. | | | 01/0 | | Activ | | oral tablet | | | | 3/20 | | e | | | | | | 18 | | | + + +---------+---------+------+------+-------+ Active [...] 6 | + + + + Encounters +--------+---------+ + + + | Date | Type | Specialty | Care Team | Description | +--------+---------+ + + + | 08/07/ | Office | | Shlomo Roach MD | SCCA (squamous cell | | 2018 | Visit | | | carcinoma) of skin | | | | | | (Primary Dx) | +--------+---------+ + + + from Last 3 Months [...] + + + | Blood Pressure | 165/94 | 08/07/2017 2:32 PM PST | + + + + | Pulse | 54 | 08/07/2017 2:32 PM PST | + + + + | Temperature [...] + + + + | Weight | 65.3 kg (143 lb 14.4 | 08/07/2017 2:32 PM PST | | | oz) | | + + + + | Height | 170.2 cm (5' 7") | 04/22/2017 6:16 PM PDT | + + + + | Body Mass Index | 22.54 | 08/07/2017 2:32 PM PST | + + + + Plan of Treatment +--------+---------+ + + + | Date | Type | Specialty | Care Team | Description | +--------+---------+ + + + | 11/17/ | Office | | Brittney Pratt | | | 2018 | Visit | | MD Kiah [address] | | | | | | [place], [place] | | | | | | [address] | | | | | | [phone] | | | | | | | [...]
--- OUTSIDE RECORDS SUMMARY | 2017-08-30 20:55 | XMS | Clinical Summary ---
Demographics + + + | Address | [address] | | | [place] [address] | + + + | Home Phone | | + + + | Preferred Language | Unknown | + + + | Marital Status | Single | + + + | Alevism Affiliation | BAP | + + + [...] Team Providers + +------+ + | Care Afterschool Babysitter Name | Role | Phone | + +------+ + | Ritesh England PA-C | PP | | + +------+ + Source Comments SHILA is fully live on both [facility] Ambulatory and [facility] InPatient.[facility] & [facility] Allergies + + + + + + [...] 2018 | Visit | | MD Kiah [address] | | | | | | [place], [place] | | | | | | [address] | | | | | | [phone] | | | | | | | [...]
--- OUTSIDE RECORDS SUMMARY | 2017-08-30 20:55 | XMS | Encounter Summary ---
Demographics + + + | Address | [address] | | | [place] [address] | + + + | Home Phone | | + + + | Preferred Language | Unknown | + + + | Marital Status | Single | + + + | Zoroastrianism Affiliation | BAP | + + + | Race | White | + + + | Ethnic Group | Not or | + + + Author + + + | Author | [facility] | + + + | Organization | [facility] | + + + | Address | Unknown | + + + | Phone | Unavailable | + + + Support +------+ +---------+ + | Name | Relationship | Address | Phone | +------+ +---------+ + ECON | Unknown | | +------+ +---------+ + Care Team Providers + +------+ + | Care Mannequin Wig Maker Name | Role | Phone | + +------+ + | Ritesh England PA-C | PCP | | + +------+ + Reason for Visit + + + | Reason | Comments | + + + | Follow-up encounter | | + + + Encounter Details +--------+---------+ + + + | Date | Type | Department | Care Team | Description | +--------+---------+ + + + | 08/07/ | Office | Otolaryngology | Shlomo Roach MD | SCCA (squamous cell | | 2018 | Visit | Head and Neck | [address] | carcinoma) of skin | | | | Surgery Services at | [facility], | (Primary Dx) | | | | [address] | [place] [address] | | | | | [facility] | [phone] | | | | | Mailcode: PV01 | | | | | | [address] [address] | | | | | | [place], [place] | | | | | | [address] | | | | | | [phone] | | | +--------+---------+ + + + [...] PM PST | + + + + in this encounter Progress Notes Shlomo Roach MD - 08/07/2017 4:02 PM PSTClinic Date:08/07/2017 I saw this young gentleman today. We have removed some of his skin cancers previously. On e on the cheek had had a positive lateral margin. We elected to follow that. He had not wa nted to have re-excision at that time but comes in now thinking that he is stable and may co nsider it. It has been over 3 months. The examination of that wound site is entirely tramaine l. 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 I think that given nothing defined on the physical exam that we should just continue to watch this area, and he was amenable to that. The other tumors are not bothering him, and he wishes not to have any intervention at this time. He was having some issues concerning his eye. He has good closure. I think he had a lot o f swelling secondary to all of the resections that we had done around the area that is decre asing. He is going to use eyedrops, and I suggested that if he is not getting better in the next w [place] or so or if he does not continue to improve or is getting worse, etc., he should call me , and we will arrange for something to do about that. Otherwise, this is stable, and I thin k he is stable. MD TELLY Delgadillo/SABRA /[id number] MD - 08/07/2017 3:00 PM PSTDictation #1 [id number]:[id number] this encounter Plan of Treatment +--------+---------+ + + + | Date | Type | Specialty | Care Team | Description | +--------+---------+ + + + | 11/17/ | Office | Liver Transplant | Brittney Pratt | | | 2017 | Visit | | MD Kiah [address] | | | | | | [place] [facility] [place] | | | | | | [address] | | | | | | [phone] | | | | | | | | +--------+---------+ + + + as of this encounter Visit Diagnoses + + | Diagnosis | + + | SCCA (squamous cell carcinoma) of skin - Primary | + +"
--- OUTSIDE RECORDS SUMMARY | 2017-08-30 20:55 | XMS | Encounter Summary ---
Demographics + + + | Address | [address] | | | [place] [address] | + + + | Home Phone | | + + + | Preferred Language | Unknown | + + + | Marital Status | Single | + + + | Yarsani Affiliation | BAP | + + + | Race | White | + + + | Ethnic Group | Not or | + + + Author + + + | Author | [facility] | + + + | Organization | [facility] | + + + | Address | Unknown | + + + | Phone | Unavailable | + + + Support +------+ +---------+ + | Name | Relationship | Address | Phone | +------+ +---------+ + ECON | Unknown | | +------+ +---------+ + Care Team Providers + +------+ + | Care Alumni Relations Officer Name | Role | Phone | + [...] | | | Surgery Services at | [facility], | (Primary Dx) | | | | [address] | [place] [address] | | | | | [facility] | [phone] | | | | | Mailcode: PV01 | | | | | | [facility] | | | | | | [place], [place] | | | | | | [address] | | | | | | [phone] | | | +--------+---------+ + + + [...] not getting better in the next w [place] or so or if he does not continue to improve or is getting worse, etc., he should call me , and we will arrange for something to do about that. Otherwise, this is stable, and I thin k he is stable. MD TELLY Delgadillo/SABRA /[id number] MD - 08/07/2017 3:00 PM PSTDictation #1 [id number] this encounter Plan of Treatment +--------+---------+ + + + | Date | Type | Specialty | Care Team | Description | +--------+---------+ + + + | 11/17/ | Office | Liver Transplant | Brittney Pratt | | | 2017 | Visit | | MD [address] | | | | | | [place] [facility] [place] | | | | | | [address] | | | | | | [phone] | | | | | | | | +--------+---------+ + + + as of this encounter Visit Diagnoses + + | Diagnosis | + + | SCCA (squamous cell carcinoma) of skin - Primary | + +"
[2017-08-30] MEDS ORDERED: TRAMADOL HCL50 MG PO (21:58)
== END 2017-08-30 22:24 | disposition home or self-care (01) ==
LOC: ED 20:50
DX: S90.32XA Contusion of left foot, initial encounter (principal); I11.0 Hypertensive heart disease with heart failure; I50.9 Heart failure, unspecified; J44.9 Chronic obstructive pulmonary disease, unspecified; I48.91 Unspecified atrial fibrillation; F17.200 Nicotine dependence, unspecified, uncomplicated; Z87.442 Personal history of urinary calculi; Z88.8 Allergy status to other drugs, medicaments and biological substances; Z88.6 Allergy status to analgesic agent; Z88.5 Allergy status to narcotic agent; Z79.899 Other long term (current) drug therapy; Z85.05 Personal history of malignant neoplasm of liver; Z85.828 Personal history of other malignant neoplasm of skin; Z94.4 Liver transplant status; W55.19XA Other contact with horse, initial encounter
CPT/HCPCS: 73630; 99283

== ENCOUNTER 2017-09-11 21:29 | Emergency (ER) | payer MEDICARE, OTHER ==
[~2017-09-11] VITALS: Ht 172.7 cm; Wt 68.0 kg
--- OUTSIDE RECORDS SUMMARY | ~2017-09-11 | XMS | Encounter Summary ---
Demographics + + + | Address | [address] | | | [place] [address] | + + + | Home Phone [...] Author + + + | Author | [facility] | + + + | Organization | [facility] | + + + | Address | Unknown | + + + | Phone | Unavailable | + + + Support +------+ +---------+ + | Name | Relationship | Address | Phone | +------+ +---------+ + ECON | Unknown | | +------+ +---------+ + Care Team Providers + +------+ + | Care Direct Support Specialist Name | Role | Phone [...] | | | Surgery Services at | [facility], | (Primary Dx) | | | | [address] | [place] [address] | | | | | [facility] | [phone] | | | | | Mailcode: PV01 | | | | | | [facility] | | | | | | [place], [place] | | | | | | [address] | | | | | | [phone] | | | +--------+---------+ + + + [...] not getting better in the next w [place] or so or if he does not continue to improve or is getting worse, etc., he should call me , and we will arrange for something to do about that. Otherwise, this is stable, and I thin k he is stable. MD TELLY Delgadillo/SABRA /[id number] MD - 08/07/2017 3:00 PM PSTDictation #1 [id number] this encounter Plan of Treatment +--------+---------+ + + + | Date | Type | Specialty | Care Team | Description | +--------+---------+ + + + | 11/17/ | Office | Liver Transplant | | | | 2017 | Visit | | | | +--------+---------+ + + + as of this encounter Visit Diagnoses + + | Diagnosis | + + | SCCA (squamous cell carcinoma) of skin - Primary | + +"
--- OUTSIDE RECORDS SUMMARY | ~2017-09-11 | XMS | Clinical Summary ---
Demographics + + + | Address | [address] | | | [place] [address] | + + + | Home Phone | | + + + | Preferred Language | Unknown | + + + | Marital Status | Single | + + + | Shinto Affiliation | BAP | + + + [...] Team Providers + +------+ + | Care Behavioral Health Aide Name | Role | Phone | + +------+ + | Ritesh England PA-C | PP | | + +------+ + Source Comments SHILA is fully live on both [facility] Ambulatory and [facility] InPatient.[facility] & [facility] Allergies + + + + + + [...] + | 11/17/ | Office | | | | | 2018 | Visit | | | | +--------+---------+ [...]
--- OUTSIDE RECORDS SUMMARY | ~2017-09-11 | XMS | Clinical Summary ---
Demographics + + + | Address | [address] | | | [place] [address] | + + + | Home Phone [...] Team Providers + +------+ + | Care Subassemblies Wirer Name | Role | Phone | + +------+ + | Ritesh England PA-C | PP | | + +------+ + Source Comments SHILA is fully live on both [facility] Ambulatory and [facility] InPatient.[facility] & [facility] Allergies + + + + + + [...]
--- OUTSIDE RECORDS SUMMARY | ~2017-09-11 | XMS | Encounter Summary ---
Demographics + + + | Address | [address] | | | [place] [address] | + + + | Home Phone [...] + + + | Author | [facility] | + + + | Organization | [facility] | + + + | Address | Unknown | + + + | Phone | Unavailable | + + + Support +------+ +---------+ + | Name | Relationship | Address | Phone | +------+ +---------+ + ECON | Unknown | | +------+ +---------+ + Care Team Providers + +------+ + | Care Lumber Buyer Name | Role | Phone | [...] | | | Surgery Services at | [facility], | (Primary Dx) | | | | [address] | [place] [address] | | | | | [facility] | [phone] | | | | | Mailcode: PV01 | | | | | | [facility] | | | | | | [place], [place] | | | | | | [address] | | | | | | [phone] | | | +--------+---------+ + + + [...] not getting better in the next w [place] or so or if he does not continue to improve or is getting worse, etc., he should call me , and we will arrange for something to do about that. Otherwise, this is stable, and I thin k he is stable. MD TELLY Delgadillo/SABRA /[id number] MD - 08/07/2017 3:00 PM PSTDictation #1 [id number] this encounter Plan of Treatment +--------+---------+ + [...]
[~2017-09-11 21:29] MED LIST changes: +TRAMADOL HCL50 MG PO
--- NOTE | 2017-09-12 17:58 | EKG ---
[facility] [address] [place] [address] Signed Sinus bradycardia Possible Left atrial enlargement Septal infarct , age undetermined Abnormal ECG When compared with ECG of 01-AUG-2017 21:33, Vent. rate has decreased BY 54 BPM QT has shortened Confirmed by DANIEL PANTOJA MD ([id number]) on 09/12/2017 5:58:19 PM Electronically Signed By: DANIEL PANTOJA MD 09/12/17 1758 PATIENT NAME: MARISSA BUENROSTRO Electrocardiogram DATE OF : 56 PHYSICIAN: DANIEL PANTOJA MD REPORT #: [id number] REPORT IS CONFIDENTIAL AND NOT TO BE RELEASED WITHOUT AUTHORIZATION
== END 2017-09-12 03:55 | disposition home or self-care (01) ==
LOC: ED 21:29
DX: K52.9 Noninfective gastroenteritis and colitis, unspecified (principal); Z94.4 Liver transplant status; I11.0 Hypertensive heart disease with heart failure; I50.9 Heart failure, unspecified; F17.200 Nicotine dependence, unspecified, uncomplicated; Z88.5 Allergy status to narcotic agent; Z88.6 Allergy status to analgesic agent; Z88.8 Allergy status to other drugs, medicaments and biological substances; Z79.899 Other long term (current) drug therapy
CPT/HCPCS: 74177; 80053; 81001; 83690; 84484; 85025; 93005; 93010; 96361; 96374; 99284; J2405; J7030; Q9967

== ENCOUNTER 2017-10-26 00:51 | Emergency (ER) | payer MEDICARE, OTHER ==
[~2017-10-26] VITALS: Ht 172.7 cm; Wt 68.0 kg
--- OUTSIDE RECORDS SUMMARY | ~2017-10-26 | XMS | Clinical Summary ---
Demographics + + + | Address | [address] | | | [place] [address] | + + + | Home Phone | | + + + | Preferred Language | Unknown | + + + | Marital Status | Single | + + + | Mormonism Affiliation | BAP | + + + [...] | Unavailable | + + + Support + + +---------+ + | Name | Relationship | Address | Phone | + + +---------+ + | Shruthi Merino | ECON | Unknown | | + + +---------+ + Care Team Providers + +------+ + | Care Big Data Engineer Name | Role | Phone | + +------+ + | Ritesh England PA-C | PP | | + +------+ + Source Comments SHILA is fully live on both [facility] Ambulatory and [facility] InPatient.[facility] & [facility] Allergies + + + + + [...] | +--------+ + + + + | 09/12/ | Emergency | | | | | 2017 | | | | | +--------+ + + + + | 08/07/ | Office | | Shlomo Roach MD | SCCA (squamous cell | | 2017 | Visit | | | carcinoma) of skin | | | | | | (Primary Dx) | +--------+ + + + + from [...] + | 11/17/ | Office | | Dayron Donato MD | | | 2018 | Visit | | [address] | | | | | | [place], | | | | | | [place] [address] | | | | | | [phone] | | | | | | | [...]
--- OUTSIDE RECORDS SUMMARY | ~2017-10-26 | XMS | Encounter Summary ---
Demographics + + + | Address | [address] | | | [place] [address] | + + + | Home Phone | | + + + | Preferred Language | Unknown | + + + | Marital Status | Single | + + + | Confucianist Affiliation | BAP | + + + | Race | White | + + + | Ethnic Group | Not or | + + + Author + + + | Author | [facility] | + + + | Organization | [facility] | + + + | Address | Unknown | + + + | Phone | Unavailable | + + + Support + + +---------+ + | Name | Relationship | Address | Phone | + + +---------+ + | Shruthi Merino | ECON | Unknown | | + + +---------+ + Care Team Providers + +------+ + | Care Furniture Upholstery Mechanic Name | Role | Phone | [...] and Neck | [address] | carcinoma) of skin | | | | Surgery Services at | [facility], | (Primary Dx) | | | | [address] | [place] [address] | | | | | [facility] | [phone] | | | | | Mailcode: PV01 | | | | | | [facility] | | | | | | [place], [place] | | | | | | [address] | | | | | | [phone] | | | +--------+---------+ + + + [...] not getting better in the next w [place] or so or if he does not continue to improve or is getting worse, etc., he should call me , and we will arrange for something to do about that. Otherwise, this is stable, and I thin k he is stable. MD TELLY Delgadillo/SABRA /[id number] MD - 08/07/2017 3:00 PM PSTDictation #1 [id number] this encounter Plan of Treatment +--------+---------+ + + + | Date | Type | Specialty | Care Team | Description | +--------+---------+ + + + | 11/17/ | Office | Liver Transplant | Dayron Donato MD | | | 2017 | Visit | | [address] | | | | | | [place], | | | | | | [place] [address] | | | | | | [phone] | | | | | | | | +--------+---------+ + + + as of this encounter Visit Diagnoses + + | Diagnosis | + + | SCCA (squamous cell carcinoma) of skin - Primary | + +"
--- OUTSIDE RECORDS SUMMARY | ~2017-10-26 | XMS | Encounter Summary ---
Demographics + + + | Address | [address] | | | [place] [address] | + + + | Home Phone | | + + + | Preferred Language | Unknown | + + + | Marital Status | Single | + + + | Christianity Affiliation | BAP | + + + | Race | White | + + + | Ethnic Group | Not or | + + + Author + + + | Author | [facility] | + + + | Organization | [facility] | + + + | Address | Unknown | + + + | Phone | Unavailable | + + + Support + + +---------+ + | Name | Relationship | Address | Phone | + + +---------+ + | Shruthi Merino | ECON | Unknown | | + + +---------+ + Care Team Providers + +------+ + | Care Family Program Specialist Name | Role | Phone | [...] | | | Surgery Services at | [facility], | (Primary Dx) | | | | [address] | [place] [address] | | | | | [facility] | [phone] | | | | | Mailcode: PV01 | | | | | | [facility] | | | | | | [place], [place] | | | | | | [address] | | | | | | [phone] | | | +--------+---------+ + + + [...] not getting better in the next w [place] or so or if he does not continue to improve or is getting worse, etc., he should call me , and we will arrange for something to do about that. Otherwise, this is stable, and I thin k he is stable. MD TELLY Delgadillo/SABRA /[id number] MD - 08/07/2017 3:00 PM PSTDictation #1 [id number] this encounter Plan of Treatment +--------+---------+ + + + | Date | Type | Specialty | Care Team | Description | +--------+---------+ + + + | 11/17/ | Office | Liver Transplant | Dayron Donato MD | | | 2017 | Visit | | [address] | | | | | | [facility] [place], | | | | | | [place] [address] | | | | | | [phone] | | | | | | | | +--------+---------+ + + + as of this encounter Visit Diagnoses + + | Diagnosis | + + | SCCA (squamous cell carcinoma) of skin - Primary | + +"
--- OUTSIDE RECORDS SUMMARY | ~2017-10-26 | XMS | Encounter Summary ---
Demographics + + + | Address | [address] | | | [place] [address] | + + + | Home Phone [...] + + + | Author | [facility] | + + + | Organization | [facility] | + [...] Team Providers + +------+ + | Care Lobby Attendant Name | Role | Phone | [...] + + | 09/12/ | Emergency | [facility] Emergency | | | | 2018 | | Department [address] | | | | | [address] | | | | | | [facility] | | | | | | [place] [address] | | | | | | [phone] | | | +--------+ + + + [...] + + + as of this encounter Medications at Time [...] | + + +---------+---------+ + + | furosemide 20 mg | once daily. | | | 08/05/19 | | | oral tablet | | | | 18 | | + + +---------+---------+ + + [...] | + + +---------+---------+ + + | oxyCODONE | Take 1 tablet by | 20 | 0 | 05/04/20 | | | (immediate release) | mouth every six | tablet | | 17 | | | 5 mg oral tablet | hours as needed for | | | | | | | severe pain. | | | | | + + +---------+---------+ + + | sirolimus 1 mg | Take 2 tablets by | 60 | 3 | 05/04/20 | | | oral | mouth once daily in | tablet | | 17 | | | tabletIndications: | the morning. | | | | | | liver transplant | Indications: liver | | | | | | | transplant | | | | | + + [...] [address] | | | | | | [address], | | | | | | [place] [address] | | | | | | [phone] | | | | | | | | +--------+---------+ + + + as of this encounter Visit Diagnoses Not on filein this encounter"
--- OUTSIDE RECORDS SUMMARY | ~2017-10-26 | XMS | Clinical Summary ---
Demographics + + + | Address | [address] | | | [place] [address] | + + + | Home Phone [...] Team Providers + +------+ + | Care Deployment Manager Name | Role | Phone | + +------+ + | Ritesh England PA-C | PP | | + +------+ + Source Comments SHILA is fully live on both [facility] Ambulatory and [facility] InPatient.[facility] & [facility] Allergies + + + + + [...] | | | | | [place], | | | | | | [place] [address] | | | | | | [phone] | | | | | | | [...]
--- OUTSIDE RECORDS SUMMARY | ~2017-10-26 | XMS | Encounter Summary ---
Demographics + + + | Address | [address] | | | [place] [address] | + + + | Home Phone | | + + + | Preferred Language | Unknown | + + + | Marital Status | Single | + + + | Advent Affiliation | BAP | + + + | Race | White | + + + | Ethnic Group | Not or | + + + Author + + + | Author | [facility] | + + + | Organization | [facility] | + + + | Address | Unknown | + + + | Phone | Unavailable | + + + Support + + +---------+ + | Name | Relationship | Address | Phone | + + +---------+ + | Shruthi Merino | ECON | Unknown | | + + +---------+ + Care Team Providers + +------+ + | Care Senior Telecommunications Technician Name | Role | Phone | [...] + + | 09/12/ | Emergency | [facility] Emergency | | | | 2018 | | Department [address] | | | | | [address] | | | | | | [facility] | | | | | | [place] [address] | | | | | | [phone] | | | +--------+ + + + [...] [place] | | | | | | [address], | | | | | | [place] [address] | | | | | | [phone] | | | | | | | | +--------+---------+ + + + as of this encounter Visit Diagnoses Not on filein this encounter"
== END 2017-10-26 01:20 ==
LOC: ED 00:51
DX: L03.211 Cellulitis of face (principal); I10 Essential (primary) hypertension; J44.9 Chronic obstructive pulmonary disease, unspecified; I48.91 Unspecified atrial fibrillation; I50.9 Heart failure, unspecified; F17.200 Nicotine dependence, unspecified, uncomplicated; Z88.8 Allergy status to other drugs, medicaments and biological substances; Z85.05 Personal history of malignant neoplasm of liver; Z88.5 Allergy status to narcotic agent; Z79.899 Other long term (current) drug therapy
CPT/HCPCS: 99283

== ENCOUNTER → 2018-01-12 | Emergency (ER) | payer MEDICARE, OTHER ==
[~2018-01-12] VITALS: Ht 172.7 cm; Wt 68.0 kg
--- NOTE | 2018-01-13 08:49 | EKG ---
[facility] [address] [facility] [address] [place] [address] Signed Sinus rhythm with premature atrial complexes Possible Left atrial enlargement Left ventricular hypertrophy Nonspecific ST abnormality Prolonged QT Abnormal ECG When compared with ECG of 11-SEP-2017 22:24, premature atrial complexes are now present QT has lengthened Confirmed by DANIEL PANTOJA MD ([id number]) on 01/13/2018 8:49:37 AM Electronically Signed By: DANIEL PNATOJA MD 01/13/18 0849 PATIENT NAME: MARISSA BUENROSTRO JR Electrocardiogram DATE OF : 56 PHYSICIAN: DANIEL PANTOJA MD REPORT #: [id number] REPORT IS CONFIDENTIAL AND NOT TO BE RELEASED WITHOUT AUTHORIZATION
== END ==
LOC: ED 17:52
DX: S72.141A Displaced intertrochanteric fracture of right femur, initial encounter for closed fracture (principal); Z94.4 Liver transplant status; I13.0 Hypertensive heart and chronic kidney disease with heart failure and stage 1 through stage 4 chronic kidney disease, or unspecified chronic kidney disease; I50.9 Heart failure, unspecified; J44.9 Chronic obstructive pulmonary disease, unspecified; I48.91 Unspecified atrial fibrillation; F17.200 Nicotine dependence, unspecified, uncomplicated; Z88.6 Allergy status to analgesic agent; Z88.5 Allergy status to narcotic agent; Z79.899 Other long term (current) drug therapy; V09.9XXA Pedestrian injured in unspecified transport accident, initial encounter
CPT/HCPCS: 71045; 72170; 73080; 73502; 80053; 85025; 85610; 93005; 93010; 96374; 96375; 96376; 99285; J1170; J2405

== ENCOUNTER 2019-04-20 15:38 | Emergency (ER) | payer MEDICARE, OTHER ==
[~2019-04-20] VITALS: Ht 172.7 cm; Wt 68.0 kg
[~2019-04-20 15:38] MED LIST changes: +CIPRO500 MG PO
--- OUTSIDE RECORDS SUMMARY | 2019-04-20 15:40 | XMS ---
PreManage Notification: MARISSA BUENROSTRO Security Imaging Specialist Events 1 event(s) in the past 18 months Most recent security events: Elopement at [facility] 10/26/2017 00:52 - Patient eloped before treatment completed. Details: AMA CRITERIA MET - Group Notification - [facility] - Has Care Guidelines - [facility] - 2 Visits in 30 Days CARE PROVIDERS QUINCY OLIVEROS Internal Medicine 04/05/2019-Current PHONE: Unknown PHILIP CORREA Current PHONE: Unknown QUINCY OLIVEROS Primary Care 08/03/2015-Current PHONE: Unknown Sandie has no Care Guidelines for this patient. Care History Medical/Surgical 01/14/2018 [facility] - Patient is currently established with [facility]. If patient is seen in the ED during business hours. Please contact [facility] at [facility] at [phone]. Care Recommendation: This patient has had 5 or more Emergency Department visits in the last 12 months.\T\nbsp; Patient requires education on the scope and purpose of the ED as an acute care provider not a Primary Care Provider and should not be utilized for chronic conditions.\T\nbsp; If patient returns to ED please contact Community Health WorkerPia at [phone]. These are guidelines and the provider should exercise clinical judgment when providing care. E.D. VISIT COUNT (12 MO.) 1 [facility] 2 [facility] 2 [facility] TOTAL 5 NOTE: Visits indicate total known visits. ED/UCC VISIT TRACKING (12 MO.) 04/20/2019 15:38 [facility] [place] TYPE: Emergency COMPLAINT: - DIZZINESS, VOMITING 04/18/2019 11:29 [facility] Oneil [place] TYPE: Emergency DIAGNOSES: - dizziness/headaches - Hypertension - Nausea - Headache - dizziness/headaches/High BP - Dizziness - Essential (primary) hypertension - Headache (Adult - New Onset Or New Symptoms) 04/02/2019 20:18 [facility] [place] TYPE: Emergency COMPLAINT: - FACIAL SWELLING DIAGNOSES: - Liver transplant status - Personal history of malignant neoplasm of liver - Nicotine dependence, unspecified, uncomplicated - Personal history of urinary calculi - Heart failure, unspecified - Allergy status to analgesic agent status - Otalgia, left ear - Hypertensive heart and chronic kidney disease with heart failure and stage 1 through stage 4 chronic kidney disease, or unspecified chronic kidney disease - Chronic kidney disease, unspecified - Cellulitis of left external ear - Other buttermaker (current) drug therapy - Personal history of other malignant neoplasm of skin - Allergy status to narcotic agent status 09/07/2018 11:37 [facility] TYPE: Emergency DIAGNOSES: 09593. ABNORMAL LAB RESULTS 17721. Essential (primary) hypertension . Malignant neoplasm of head, face and neck 01652. 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 Abdominal aortic aneurysm, without rupture 64106. Liver transplant status 91027. Personal history of malignant neoplasm of liver 78700. 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 Malignant neoplasm of head, face and neck . Essential (primary) hypertension [email or web address]
[2019-04-20] MEDS ORDERED: OXYCODONE HCL5 MG PO (15:58)
[2019-04-21] MEDS ORDERED: AUGMENTIN 875-1 EACH PO (09:43)
== END 2019-04-21 09:51 | disposition home or self-care (01) ==
LOC: ED 15:38 → CCU 15:39 → ED 15:39
DX: K11.20 Sialoadenitis, unspecified (principal); D84.9 Immunodeficiency, unspecified; I11.0 Hypertensive heart disease with heart failure; I50.9 Heart failure, unspecified; J44.9 Chronic obstructive pulmonary disease, unspecified; I48.91 Unspecified atrial fibrillation; F17.200 Nicotine dependence, unspecified, uncomplicated; Z88.8 Allergy status to other drugs, medicaments and biological substances; Z88.5 Allergy status to narcotic agent; Z88.6 Allergy status to analgesic agent; Z79.899 Other long term (current) drug therapy; Z79.891 Long term (current) use of opiate analgesic
CPT/HCPCS: 70490; 80053; 85025; 96365; 96366; 99284-25; J0295; J7040

== ENCOUNTER 2019-05-14 22:20 | Emergency (ER) | payer MEDICARE, OTHER ==
[~2019-05-14] VITALS: Ht 172.7 cm; Wt 69.8 kg
--- OUTSIDE RECORDS SUMMARY | ~2019-05-14 | XMS | Encounter Summary ---
Demographics + + + | Address | [address] | | | [place] [address] | + + + | Home Phone | | + + + | Preferred Language | Unknown | + + + | Marital Status | Single | + + + | Worship Affiliation | BAP | + + + | Race | White | + + + | Ethnic Group | Not or | + + + Author + + + | Author | [facility] | + + + | Organization | [facility] [employer] [facility] | + + + | Address | Unknown | + + + | Phone | Unavailable | + + + Support + + +---------+ + | Name | Relationship | Address | Phone | + + +---------+ + | Shruthi Merino | ECON | Unknown | | + + +---------+ + | Haven Cindywoody | ECON | Unknown | | + + +---------+ + Care Team Providers + +------+ + | Care Graphic Artist Name | Role | Phone | + [...] Brittney Pratt | Refill Request | | 2017 | | [address] | MD Kiah [address] | | | | | [address] | [place], [place] | | | | | [place], [place] | [address] | | | | | [address] | [phone] | | | | | [phone] | | | +--------+--------+ + + + [...] + +---------+ + | Alcohol Use | Drinks/Week | oz/Week | Comments | + + +---------+ + | No | | | | + + +---------+ + + + + | Sex Assigned at | Date Recorded | | | | + + + | Not on file | | + + + + + + + | Job Start Date | Occupation | Industry | + + + + | Not on file | Not on file | Not on file | + + + + + + + + | Travel History | Travel Start | Travel End | + + + + + + | No recent travel history available. | + + documented as of this encounter Plan of Treatment +--------+---------+ + + + | Date | Type | Specialty | Care Team | Description | +--------+---------+ + + + | 06/17/ | Office | Otolaryngology | Shlomo Roach MD | | | 2019 | Visit | | [address] | | | | | | [place], | | | | | | [place] [address] | | | | | | [phone] | | | | | | | | +--------+---------+ + + + documented as of this encounter Visit Diagnoses Not on filedocumented in this encounter"
--- OUTSIDE RECORDS SUMMARY | ~2019-05-14 | XMS | Encounter Summary ---
Demographics + + + | Address | [address] | | | [place] [address] | + + + | Home Phone | | + + + | Preferred Language | Unknown | + + + | Marital Status | Single | + + + | Evangelical Affiliation | BAP | + + + | Race | White | + + + | Ethnic Group | Not or | + + + Author + + + | Author | [facility] | + + + | Organization | [email or web address] | + + + | Address [...] Team Providers + +------+ + | Care Lifeguard Name | Role | Phone | + +------+ + | Ritesh England PA-C | PCP | | + +------+ + Encounter Details +--------+ + + + + | Date | Type | Department | Care Team | Description | +--------+ + + + + | 09/10/ | Dissolver Operator | Cardiology - | Coonse, Chetna, MD | Palpitation (Primary | | 2019 | | General [address] | [address] | Dx) | | | | [address] | [address] | | | | | Mailcode: [id number] | [place], [place] | | | | | [facility] | [address] | | | | | [address], | [phone] | | | | | [place] [address] | | | | | | [phone] | | | +--------+ + + + + Social History + + + +--------+ + | Tobacco Use | Types | Packs/Day | Years | Date | | | | | Used | | + + + +--------+ + | Current Every Day | Cigarettes | 1 | 30 | Started: 1978 | | Smoker | | | | | + + + +--------+ + + +------+---+---+ | Smokeless Tobacco: | Chew | | | | Former User | | | | + +------+---+---+ + + +---------+ + | Alcohol Use [...] + + documented as of this encounter Functional Status + + + + | Functional Status | Response | Date of Assessment | + + + + | Because of a physical, mental, or emotional | No | 09/07/2018 | | condition, do you have serious difficulty | | | | doing errands alone such as visiting the | | | | doctor? | | | + + + + + + + + | Cognitive Status | Response | Date of Assessment | + + + + | Because of a physical, mental, or emotional | No | 09/07/2018 | | condition, do you have serious difficulty | | | | concentrating, remembering, or making | | | | decisions? (5 years old or older) | | | + + + + documented as of this encounter Plan of Treatment +--------+---------+ + + + | Date | Type | Specialty | Care Team | Description | +--------+---------+ + + + | 06/17/ | Office | Otolaryngology | Shlomo Roach MD | | | 2018 | Visit | | [address] | | | | | | [place], | | | | | | [place] [address] | | | | | | [phone] | | | | | | | | +--------+---------+ + + + + +------+--------+ + + | Name | Type | Priori | Associated Diagnoses | Order Schedule | | | | ty | | | + +------+--------+ + + | EVENT MONITOR | ECG | Routin | Palpitation | Ordered: 09/10/2018 | | | | e | | | | PT TRIGGERED EVENT | | | | | + +------+--------+ + + documented as of this encounter Visit Diagnoses + + | Diagnosis | + + | Palpitation - Primary Palpitations | + + documented in this encounter"
--- OUTSIDE RECORDS SUMMARY | ~2019-05-14 | XMS | Encounter Summary ---
Demographics + + + | Address | [address] | | | [place] [address] | + + + | Home Phone | | + + + | Preferred Language | Unknown | + + + | Marital Status | Single | + + + | Temple Affiliation | BAP | + + + | Race | White | + + + | Ethnic Group | Not or | + + + Author + + + | Author | [facility] | + + + | Organization | [facility] | + + + | Address | Unknown | + + + | Phone | Unavailable | + + + Support + + +---------+ + | Name | Relationship | Address | Phone | + + +---------+ + | Shruthi Merino | ECON | Unknown | | + + +---------+ + | Haventasha Whitewoody | ECON | Unknown | | + + +---------+ + Care Team Providers + +------+ + | Care Director Museum Or Zoo Name | Role | Phone | + +------+ + | Ritesh England PA-C | PCP | | + +------+ + Reason for Visit AUTH/CERT +--------+--------+ + + [...] Choudhary MD | | | 2017 | Event | [facility] | [address] | | | | | Admitting Desk | [place] [facility] | | | | | [facility] on the | [place] [address] | | | | | floor [address] [facility] | [phone] | | | | | [address] | | | | | | [place], [place] | | | | | | [address] | | | +--------+ + + + + Anesthesia Record + + + + + | Procedure Name | Responsible | Anesthesia Start | Anesthesia Stop Time | | | Anesthesiologist | Time | | + + + + + | EXCISION OF SKIN | Lakshmi Choudhary MD | 04/22/17 1332 | 04/22/17 1550 | | CANCER OF FACE 5X7 | | | | | CM, 4X5 CM & 8X8 CM, | | | | | AND NECK WITH LOCAL | | | | | ADVANCEMENT FLAPS. | | | | | specimens: pathology | | | | | NEDA x 4 (Right | | | | | Face) [...] | + + + + + | Name | + + | O2 FR Avance (Total Liters) | + + | Air FR Avance (l/min) | + + | Insp Sevo | + + | Et Sevo | + + + + | No blood administrations on file. | + + +--------+ + + + | Type | Details | Placement | Removal | +--------+ + + + | Incisi | 04/22/17; Azzi; Anterior; neck; | 04/22/17 0000 by | 03/04/18 1014 by | | on | 03/04/18; 1014 | Adriana Victor RN | Deedee Bennett RN | +--------+ + + + | Incisi | 04/22/17; Azzi; Right; Lateral; | 04/22/17 0000 by | 03/04/18 1014 by | | on | face; 03/04/18; 1014 | Adriana Victor RN | Deedee Bennett RN | +--------+ + + + | Incisi | 04/22/17; Azzi; Right; Lateral, | 04/22/17 0000 by | 03/04/18 1014 by | | on | Upper; face; 03/04/18; 1014 | Adriana Victor RN | Deedee Bennett RN | +--------+ + + + | Incisi | 04/22/17; Azzi; Right; Medial; | 04/22/17 0000 by | 03/04/18 1014 by | | on | face; 03/04/18; 1014 | Adriana Victor RN | Deedee Bennett, RN | +--------+ + + + | Periph | 04/22/17; 1300; Left; Forearm; 20 | 04/22/17 1300 by | 04/23/17 1053 by | | eral | g; None; Positive; 04/23/17; | Han Perales, | Cathi Spivey, | | IV | 1053; Discharge | RN | RN | +--------+ + + + documented in this encounter Social History + + [...] | | | | | [place], | | | | | | [place] [address] | | | | | | [phone] | | | | | | | | +--------+---------+ + + + documented as of this encounter Visit Diagnoses Not on filedocumented in this encounter Administered Medications + +--------+ + +------+------+ | Medication Order | MAR | Action | Dose | Rate | Site | | | Action | Date | | | | + +--------+ + +------+------+ | ceFAZolin (ANCEF) injection | Given | 04/22/20 | 2,000 mg | | | | intravenous, INTRAPROCEDURE PRN, | | 17 1:55 | | | | | Starting 04/22/17 at 1355, | | PM PDT | | | | | Until 04/28/17 at 1557 | | | | | | + +--------+ + +------+------+ +---+---+ | | | +---+---+ + +-------+ +--------+---+---+ | fentaNYL citrate (PF) | Given | 04/22/20 | 50 mcg | | | | (SUBLIMAZE) injection | | 17 3:47 | | | | | INTRAPROCEDURE PRN, Starting Wed | | PM PDT | | | | | 04/22/17 at 1400, Until Wed | | | | | | | 04/22/17 at 1538 | | | | | | + +-------+ +--------+---+---+ +-------+ +--------+---+---+ | Given | 04/22/20 | 50 mcg | | | | | 17 3:15 | | | | | | PM PDT | | | | +-------+ +--------+---+---+ | Given | 04/22/20 | 50 mcg | | | | | 17 2:30 | | | | | | PM PDT | | | | +-------+ +--------+---+---+ +---+---+ | | | +---+---+ + +---------+ +---+---+---+ | lactated Ringers IV 10 mL/hr, | New Bag | 04/22/20 | | | | | intravenous, PROCEDURE | | 17 1:32 | | | | | CONTINUOUS, Starting 04/22/17 | | PM PDT | | | | | at 1245, Until Thu04/22/17 at | | | | | | | 1807 | | | | | | + +---------+ +---+---+---+ +---------+ + + + + | New Bag | 04/22/20 | 10 mL/hr | 10 mL/hr | Left Arm | | | 17 1:00 | | | | | | PM PDT | | | | +---------+ + + + + +---+---+ | | | +---+---+ + +-------+ +------+---+---+ | midazolam (VERSED) injection | Given | 04/22/20 | 2 mg | | | | INTRAPROCEDURE PRN, Starting Thu | | 17 1:32 | | | | | 04/22/17 at 1332, Until Wed | | PM PDT | | | | | 04/22/17 at 1538 | | | | | | + +-------+ +------+---+---+ +---+---+ | | | +---+---+ + +-------+ +------+---+---+ | ondansetron (ZOFRAN) injection | Given | 04/22/20 | 4 mg | | | | INTRAPROCEDURE PRN, Starting Wed | | 17 3:15 | | | | | 04/22/17 at 1515, Until Wed | | PM PDT | | | | | 04/22/17 at 1538 | | | | | | + +-------+ +------+---+---+ +---+---+ | | | +---+---+ + +-------+ +--------+---+---+ | propofol INTRAPROCEDURE PRN, | Given | 04/22/20 | 150 mg | | | | Starting 04/22/17 at 1332, | | 17 1:38 | | | | | Until 04/22/17 at 1538 | | PM PDT | | | | + +-------+ +--------+---+---+ +---+---+ | | | +---+---+ documented in this encounter"
--- OUTSIDE RECORDS SUMMARY | ~2019-05-14 | XMS | Encounter Summary ---
Demographics + + + | Address | [address] | | | [place] [address] | + + + | Home Phone | | + + + | Preferred Language | Unknown | + + + | Marital Status | Single | + + + | Islam Affiliation | BAP | + + + | Race | White | + + + | Ethnic Group | Not or | + + + Author + + + | Author | [facility] | + + + | Organization | [email or web address] | + + + | Address | Unknown | + + + | Phone | Unavailable | + + + Support + + +---------+ + | Name | Relationship | Address | Phone | + + +---------+ + | Shruthi Merino | ECON | Unknown | | + + +---------+ + | Haven Eduardopatricio | ECON | Unknown | | + + +---------+ + Care Team Providers + +------+ + | Care Contact Center Associate Name | Role | Phone | + +------+ + | Ritesh England PA-C | PCP | | + +------+ + Encounter Details +--------+ + + + + | Date | Type | Department | Care Team | Description | +--------+ + + + + | 09/08/ | Procedure | Diagnostic Imaging | | | | 2019 | Pass | Services at [facility] | | | | | | [address] | | | | | | [place] Mailcode: | | | | | | [address] [facility] | | | | | | [place], [place] | | | | | | [address] | | | | | | [phone] | | | +--------+ + + + [...] | | | | | [place], | | | | | | [place] [address] | | | | | | [phone] | | | | | | | | +--------+---------+ + + + documented as of this encounter Visit Diagnoses Not on filedocumented in this encounter"
--- OUTSIDE RECORDS SUMMARY | ~2019-05-14 | XMS | Encounter Summary ---
Demographics + + + | Address | [address] | | | [place] [address] | + + + | Home Phone [...] Author + + + | Author | [facility] | + + + | Organization | [facility] [employer] [facility] | + + + | Address | Unknown | + + + | Phone | Unavailable | + + + Support + + +---------+ + | Name | Relationship | Address | Phone | + + +---------+ + | Shruthi Merino | ECON | Unknown | | + + +---------+ + | Haven Souza | ECON | Unknown | | + + +---------+ + Care Team Providers + +------+ + | Care Binding Cutter Synthetic Cloth Name | Role | Phone | + +------+ + PCP | Unavailable | + +------+ + Reason for Visit + + + | Reason | Comments | + + + | Refill Request | | + + + Encounter Details +--------+--------+ + + + | Date | Type | Department | Care Team | Description | +--------+--------+ + + + | 09/05/ | Refill | Otolaryngology | Leon Hernandez, | Refill Request | | 2005 | | Head and Neck | MD [address] | | | | | Surgery Services at | [address] [facility] [address] | | | | | PPV [address] | [place], [place] | | | | | [address] | [address] | | | | | Mailcode: [address] | [phone] | | | | | [facility] | | | | | | [place], [place] | | | | | | [address] | | | | | | [phone] | | | +--------+--------+ + + + Social History + +-------+ +--------+------+ | Tobacco Use | Types | Packs/Day | Years | Date | | | | | Used | | + +-------+ +--------+------+ | Never Assessed | | | | | + +-------+ +--------+------+ + + + | Sex Assigned at [...] | | | | | [place], | | | | | | [place] [address] | | | | | | [phone] | | | | | | | | +--------+---------+ + + + documented as of this encounter Visit Diagnoses Not on filedocumented in this encounter"
--- OUTSIDE RECORDS SUMMARY | ~2019-05-14 | XMS | Encounter Summary ---
Demographics + + + | Address | [address] | | | [place] [address] | + + + | Home Phone | | + + + | Preferred Language | Unknown | + + + | Marital Status | Single | + + + | Yazidism Affiliation | BAP | + + + | Race | White | + + + | Ethnic Group | Not or | + + + Author + + + | Author | [facility] | + + + | Organization | [facility] | + + + | Address [...] Team Providers + +------+ + | Care Straw Hat Machine Operator Name | Role | Phone | + +------+ + | Ritesh England PA-C | PCP | | + +------+ + Reason for Visit + + + | Reason | Comments | + + + | Liver Transplant | SCC chemoprophylaxis | | Follow Up | | + + + Encounter Details +--------+ + + + + | Date | Type | Department | Care Team | Description | +--------+ + + + + | 01/11/ | Documentati | Transplant | Yvette Perkins RN | Liver Transplant | | 2018 | on | Coordinators [address] | [address] | Follow Up (SCC | | | | [address] [place] | [address] [place], | chemoprophylaxis) | | | | [place], [place] | [place] [address] | | | | | [address] | | | | | | [phone] | | | +--------+ + + + + Social History + + + +--------+------+ | [...] | | | | | | [place], | | | | | | [place] [address] | | | | | | [phone] | | | | | | | | +--------+---------+ + + + documented as of this encounter Visit Diagnoses Not on filedocumented in this encounter"
--- OUTSIDE RECORDS SUMMARY | ~2019-05-14 | XMS | Encounter Summary ---
Demographics + + + | Address | [address] | | | [place] [address] | + + + | Home Phone | | + + + | Preferred Language | Unknown | + + + | Marital Status | Single | + + + | Caodaism Affiliation | [id number] | + + + | Race | Unknown | + + + | Ethnic Group | Unknown | + + + Author + + + | Author | [facility] | | | and [place] | + + + | Organization | [facility] | | | and [place] | + + + | Address | Unknown | + + + | Phone | Unavailable | + + + Support + + + + + | Name | Relationship | Address | Phone | + + + + + | Brenda Jones | ECON | [place] | | | | | [address] | | + + + + + | Katarzyna Luke | ECON | , [place] | | + + + + + | chele townsend | ECON | Unknown | | + + + + + Care Team Providers + +------+ + | Care Installer Molding And Trim Name | Role | Phone | + +------+ + | Ritesh England PA-C | PCP | | + +------+ + Reason for Referral Diagnostic/Screening (Routine) +--------+--------+ + + + + | Status | Reason | Specialty | Diagnoses / | Referred By | Referred To | | | | | Procedures | Contact | Contact | +--------+--------+ + + + + | Closed | | Radiology | Diagnoses | | [facility] | | | | | Essential | Nell, | [address] | | | | | hypertension | Maddie PROCESS CONTROL SUPERVISOR | [place], | | | | | Chest | [address] | [place] | | | | | pain, | [address] | [address] | | | | | unspecified | [place], | Phone: | | | | | type | [place] | [phone] | | | | | Procedures | [address] | Fax: | | | | | ECHO | Phone: | [phone] | | | | | Complete | [phone] | | | | | | | Fax: | | | | | | | [phone] | | +--------+--------+ + + + + Diagnostic/Screening (Routine) +--------+--------+ + + + + | Status | Reason | Specialty | Diagnoses / | Referred By | Referred To | | | | | Procedures | Contact | Contact | +--------+--------+ + + + + | Closed | | Radiology | Diagnoses | | [facility] | | | | | Essential | Nell, | [address] | | | | | hypertension | Maddie PROCESS CONTROL SUPERVISOR | [place], | | | | | Chest | [address] | [place] | | | | | pain, | [address] | [address] | | | | | unspecified | [place], | Phone: | | | | | type | [place] | [phone] | | | | | Procedures | [address] | Fax: | | | | | ECHO | Phone: | [phone] | | | | | Complete | [phone] | | | | | | | Fax: | | | | | | | [phone] | | +--------+--------+ + + + + Reason for Visit Diagnostic/Screening (Routine) +--------+--------+ + + + + | Status | Reason | Specialty | Diagnoses / | Referred By | Referred To | | | | | Procedures | Contact | Contact | +--------+--------+ + + + + | Closed | | Radiology | Diagnoses | | [facility] | | | | | Essential | Nell, | [address] | | | | | hypertension | Maddie, PROCESS CONTROL SUPERVISOR | [place], | | | | | Chest | [address] | [place] | | | | | pain, | [address] | [address] | | | | | unspecified | [place], | Phone: | | | | | type | [place] | [phone] | | | | | Procedures | [address] | Fax: | | | | | ECHO | Phone: | [phone] | | | | | Complete | [phone] | | | | | | | Fax: | | | | | | | [phone] | | +--------+--------+ + + + + Encounter Details +--------+ + + + + | Date | Type | Department | Care Team | Description | +--------+ + + + + | 02/22/ | Hospital | [facility] | [place], | Essential | | 2019 | Encounter | [facility] [address] | Maddie, PROCESS CONTROL SUPERVISOR [address] | hypertension; Chest | | | | [address] | [place], | pain, unspecified | | | | [place] [address] | [place] [address] | type | | | | [phone] | [phone] | | | | | | | | +--------+ + + + + Social History + +-------+ +--------+------+ | Tobacco Use | Types | Packs/Day | Years | Date | | | | | Used | | + +-------+ +--------+------+ | Current Every Day | | | | | | Smoker | | | | | + +-------+ +--------+------+ + +---+---+---+ | Smokeless Tobacco: | | | | | Never Used | | | | + +---+---+---+ + + +---------+ + | Alcohol Use | Drinks/We | oz/Week | Comments | | | ek | | | + + +---------+ + | No | 0 | 0.0 | none | | | Standard | | | | | drinks or | | | | | | | | | | equivalen | | | | | t | | | + + +---------+ + [...] Assessment | + + + + | Are you deaf or do you have serious | No | 08/26/2016 | | difficulty hearing? | | | + + + + | Are you blind or do you have serious | No | 08/26/2016 | | difficulty seeing, even when wearing | | | | glasses? | | | + + + + | Do you have serious difficulty walking or | No | 08/26/2016 | | climbing stairs? (5 years old or older) | | | + + + + | Do you have difficulty dressing or bathing? | No | 08/26/2016 | | (5 years old or older) | | | + + + + | Because of a physical, mental, or emotional | No | 08/26/2016 | | condition, do you have difficulty doing | | | | errands alone such as visiting a doctor's | | | | office or shopping? [15 years old or | | | | older)] | | | + + + + + + + + | Cognitive Status | Response | Date of Assessment | + + + + | Because of a physical, mental, or emotional | No | 08/26/2016 | | condition, do you have serious difficulty | | | | concentrating, remembering, or making | | | | decisions? (5 years old or older) | | | + + + + documented as of this encounter Medications at Time of Discharge + + + +---------+ + + | Medication | Sig | Dispensed | Refills | Start | End Date | | | | | | Date | | + + + +---------+ + + | albuterol 90 | Inhale 2 puffs into | 1 | 0 | 08/26/19 | | | mcg/puff inhaler | the lungs every 6 | Inhaler | | 17 | | | | hours as needed for | | | | | | | Wheezing. | | | | | + + + +---------+ + + | furosemide (LASIX) | Take 0.5 tablets by | 30 | 0 | 07/23/20 | | | 20 mg tablet | mouth Three times a | tablet | | 18 | | | | week. | | | | | + + + +---------+ + + | metoprolol | Take 1 tablet by | 60 | 5 | 12/09/19 | | | succinate | mouth 2 times daily. | tablet | | 19 | | | (TOPROL-XL) 100 mg | | | | | | | ER tablet | | | | | | + + + +---------+ + + | mycophenolate | Take 500 mg by mouth | | 0 | | | | (CELLCEPT) 250 mg | 2 times daily. | | | | | | capsule | | | | | | + + + +---------+ + + | sirolimus | Take 2 mg by mouth | | 0 | | | | (RAPAMUNE) 1 mg | every morning. | | | | | | tablet | | | | | | + + + +---------+ + + | amLODIPine | Take 1 tablet by | 30 | 0 | 07/22/20 | | | (NORVASC) 5 mg | mouth Daily. | tablet | | 18 | 9 | | tablet | | | | | | + + + +---------+ + + documented as of this encounter Plan of Treatment +--------+---------+ + + + | Date | Type | Specialty | Care Team | Description | +--------+---------+ + + + | 06/01/ | Office | Cardiology | Nell, | | | 2018 | Visit | | BELEM [place] [address] | | | | | | [place], | | | | | | [place] [address] | | | | | | [phone] | | | | | | | | +--------+---------+ + + + documented as of this encounter Procedures + +--------+ + + + | Procedure Name | Priori | Date/Time | Associated Diagnosis | Comments | | | ty | | | | + +--------+ + + + | ECHO COMPLETE | Routin | 02/22/2019 | Essential | Results for this | | | e | 14:44 PDT | hypertension Chest | procedure are in the | | | | | pain, unspecified | results section. | | | | | type | | + +--------+ + + + documented in this encounter Results ECHO Complete (02/22/2019 14:44 PDT) + +--------+ + + + | Component | Value | Ref Range | Performed | Pathologist | | | | | At | Signature | + +--------+ + + + | Patient | 158 | | [facility] | | | Weight | | | | | | (lbs) | | | | | + +--------+ + + + | Patient | 5'8" | | [facility] | | | Height | | | | | + +--------+ + + + | LVIDd | 4.16 | cm | [facility] | | + +--------+ + + + | FS | 39 | % | [facility] | | + +--------+ + + + | LA volume | 51.09 | mL | [facility] | | + +--------+ + + + | Ascending | 4.46 | cm | [facility] | | | aorta | | | | | + +--------+ + + + | Aortic arch | 3.06 | cm | [facility] | | + +--------+ + + + | AV mean | 7.53 | mmHg | [facility] | | | gradient | | | | | + +--------+ + + + | MV mean | 1.08 | mmHg | [facility] | | | gradient | | | | | + +--------+ + + + | MV Area by | 2.8 | cm2 | [facility] | | | P 1/2 | | | | | | method | | | | | + +--------+ + + + | IVRT | 131.49 | msec | [facility] | | + +--------+ + + + | LVOT peak | 90.22 | cm/s | [facility] | | | silvana | | | | | + +--------+ + + + | LVOT peak | 16.64 | cm | [facility] | | | VTI | | | | | + +--------+ + + + | AV peak silvana | 182.62 | cm/s | [facility] | | + +--------+ + + + | AV VTI | 30.69 | cm | [facility] | | + +--------+ + + + | AV peak | 13.34 | mmHg | [facility] | | | gradient | | | | | + +--------+ + + + | MV peak | 5.28 | mmHg | [facility] | | | gradient | | | | | + +--------+ + + + | MV Pressure | 78.49 | msec | [facility] | | | 1/2 time | | | | | + +--------+ + + + | LA Volume | 28 | mL/m2 | [facility] | | | Index | | | | | + +--------+ + + + | AV LVOT | 3.26 | mmHg | [facility] | | | Peak | | | | | | Gradient | | | | | + +--------+ + + + | AV LVOT | 1.87 | mmHg | [facility] | | | Mean | | | | | | Gradient | | | | | + +--------+ + + + | TR Peak | 24 | mmHg | [facility] | | | Gradient | | | | | + +--------+ + + + | TR Velocity | 243.44 | cm | [facility] | | + +--------+ + + + | LV | 8.22 | cm | [facility] | | | Diastolic | | | | | | Length 4C | | | | | + +--------+ + + + | LV | 60 | % | [facility] | | | Gaviria's | | | | | | Biplane EF | | | | | + +--------+ + + + | LV ED | 82.21 | ml | [facility] | | | Volume | | | | | | (Gaviria's) | | | | | + +--------+ + + + | LV ED | 44 | ml/m2 | [facility] | | | Volume | | | | | | Index | | | | | + +--------+ + + + | LV ES | 34.45 | ml | [facility] | | | Volume | | | | | + +--------+ + + + | LVOT Mean | 65.87 | cm/s | [facility] | | | Velocity | | | | | + +--------+ + + + | MV E' | 3 | cm/s | [facility] | | | Septal | | | | | | Velocity | | | | | + +--------+ + + + | MV | 153.07 | cm/s2 | [facility] | | | Deceleratio | | | | | | n [place] | | | | | + +--------+ + + + | MV | 270.65 | msec | [facility] | | | Deceleratio | | | | | | n Time | | | | | + +--------+ + + + | MV E/A | 0.44 | | [facility] | | | Ratio | | | | | + +--------+ + + + | MV Mean | 46.29 | cm/s | [facility] | | | Velocity | | | | | + +--------+ + + + | MV Peak | 93.47 | cm/s | [facility] | | | A-Wave | | | | | + +--------+ + + + | MV Peak | 41.43 | cm/s | [facility] | | | E-Wave | | | | | + +--------+ + + + | AV Mean | 130.43 | cm/s | [facility] | | | Velocity | | | | | + +--------+ + + + | LA/Aorta | 0.71 | | [facility] | | | Ratio | | | | | + +--------+ + + + | LA Area | 16.59 | cm2 | [facility] | | + +--------+ + + + | MV E/E | 13.81 | | [facility] | | | SEPTAL | | | | | + +--------+ + + + | LA Major | 0.3069 | cm | [facility] | | + +--------+ + + + | LV ES | 19 | ml/m2 | [facility] | | | Volume | | | | | | Index | | | | | + +--------+ + + + | Aortic Root | 4.07 | cm | [facility] | | | Diameter | | | | | + +--------+ + + + | IVS | 1.56 | cm | [facility] | | | Diastolic | | | | | | Thickness | | | | | | MM | | | | | + +--------+ + + + | LVPW | 1.52 | cm | [facility] | | | Diastolic | | | | | | Thickness | | | | | | MM | | | | | + +--------+ + + + | IVS | 1.76 | cm | [facility] | | | Systolic | | | | | | Thickness | | | | | | MM | | | | | + +--------+ + + + | LV Systolic | 2.55 | cm | [facility] | | | Diameter | | | | | | MM | | | | | + +--------+ + + + | LVPW | 2.09 | cm | [facility] | | | Systolic | | | | | | Thickness | | | | | | MM | | | | | + +--------+ + + + | AV Cusp | 2.34 | cm | [facility] | | | Seperation | | | | | | MM | | | | | + +--------+ + + + | LA Systolic | 2.9 | cm | [facility] | | | Diameter | | | | | | MM | | | | | + +--------+ + + + | TAPSE | 2 | cm | [facility] | | + +--------+ + + + | LVEF-TTE | 60 | % | [facility] | | | TRANSTHORAC | | | | | | IC ECHO | | | | | + +--------+ + + + | RA PRESSURE | 3 | mmHg | [facility] | | + +--------+ + + + | RVSP | 27 | mmHg | [facility] | | | Estimated | | | | | + +--------+ + + + + + | Specimen | + + | | + + + + + | Narrative | Performed At | + + + | 1. Normal | [facility] | | left ventricular size with a mild to moderate concentric left | | | ventricular hypertrophy. Left ventricular systolic function is | | | preserved. LVEF is 60 to 65%.2. Grade 1 left ventricular diastolic | | | dysfunction.3. Mildly thickened and calcified trileaflet aortic | | | valve with adequate opening. There is aortic valve sclerosis | | | without significant aortic valve stenosis. There is a mild aortic | | | valve insufficiency.4. 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 Mitral valve opens | | | adequately.5. Mild tricuspid valve regurgitation.6. Normal | | | right-sided pressure.7. Normal IVC with a normal respiratory | | | collapse.8. Mild aortic root dilatation measuring 4.0 cm in | | | diameter.9. When compared echocardiography on 08/22/2016, left | | | ventricular cystic function is significantly improved and now | | | normalized. | | + + + + +---------+ + + | Performing | Address | City/State/Zipcode | Phone Number | | Organization | | | | + +---------+ + + | [facility] | | | | + +---------+ + + documented in this encounter Visit Diagnoses + + | Diagnosis | + + | Essential hypertension Unspecified essential hypertension | + + | Chest pain, unspecified type | + + documented in this encounter
--- OUTSIDE RECORDS SUMMARY | ~2019-05-14 | XMS | Encounter Summary ---
Demographics + + + | Address | [address] | | | [place] [address] | + + + | Home Phone | | + + + | Preferred Language | Unknown | + + + | Marital Status | Single | + + + | Gnosticist Affiliation | BAP | + + + | Race | White | + + + | Ethnic Group | Not or | + + + Author + + + | Author | [facility] [employer] [facility] | + + + | Organization | [facility] | + + + | [...] Team Providers + +------+ + | Care Dance Critic Name | Role | Phone | + +------+ + | No Pcp Per Patient | PCP | Unavailable | + +------+ + Encounter Details +--------+ + + + + | Date | Type | Department | Care Team | Description | +--------+ + + + + | 08/15/ | Orders Only | Surgical | Scott Delcid MD | [facility] | | 2006 | | Dermatology [address] | | NEC (Primary Dx) | | | | [address] | | | | | | Mailcode:OP06 | | | | | | Outpatient Clinic | | | | | | [facility], Room 4300 | | | | | | [place], [place] | | | | | | [address] | | | | | | [phone] | | | +--------+ + + + [...] | 06/17/ | Office | Otolaryngology | Wax, Shlomo, MD | | | 2019 | Visit | | [address] | | | | | | [place], | | | | | | [place] [address] | | | | | | [phone] | | | | | | | | +--------+---------+ + + + + +------+--------+ + + | Name | Type | Priori | Associated Diagnoses | Order Schedule | | | | ty | | | + +------+--------+ + + | [facility] COLLECT, | Lab | Routin | Bo Tanner Skin | Ordered: 08/15/2005 | | VENIPUNCTURE | | e | Face Nec | | + +------+--------+ + + documented as of this encounter Procedures + +--------+ + + + | Procedure Name | Priori | Date/Time | Associated Diagnosis | Comments | | | ty | | | | + +--------+ + + + | CREATININE, PLASMA | Routin | 08/15/2005 | Bo Hart Skin | Results for this | | | e | 1:59 PM | Face Nec | procedure are in the | | | | PST | | results section. | + +--------+ + + + documented in this encounter Results CREATININE, PLASMA (08/15/2005 1:59 PM PST) + +-------+ + + + | Component | Value | Ref Range | Performed | Pathologist | | | | | At | Signature | + +-------+ + + + | CREATININE | 0.8 | 0.7 - 1.3 mg/dL | [facility] | | | PLASMA | | | DEPARTMENT | | | (LAB) | | | OF | | | | | | PATHOLOGY | | + +-------+ + + + + + | Specimen | + + | | + + + + + | Narrative | Performed At | + + + | 29713 Estimated GFR > 60 mL/min/1.73 sq m if non- | [facility] | | 10610 Estimated GFR > 60 mL/min/1.73 sq m if GFR | DEPARTMENT OF | | is estimated using the MDRD equation recommended by the National | PATHOLOGY | | Kidney Disease Education Program. Estimated GFR Interpretive | | | Information: <60 mL/min/1.73 sq m Chronic Kidney Disease <15 | | | mL/mon/1.73 sq m Kidney Failure Estimated GFR greater than | | | 60mL/min/1.73 is of limited clinical Value. The MDRD equation is | | | not valid in the following situations: - Patients under 18 years of | | | age - Severe malnutrition or obesity - Vegetarian diet - Rapidly | | | changing kidney function | | + + + + + + + + | Performing | Address | City/State/Zipcode | Phone Number | | Organization | | | | + + + + + | [facility] DEPARTMENT OF | [facility] | [place] [address] | | | PATHOLOGY | [address] | | | + + + + + | [place] DEPARTMENT OF | [address] | [place] [address] | | | PATHOLOGY | [address] | | | + + + + + documented in this encounter Visit Diagnoses + + | Diagnosis | + + | 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
--- OUTSIDE RECORDS SUMMARY | ~2019-05-14 | XMS | Encounter Summary ---
Demographics + + + | Address | [address] | | | [place] [address] | + + + | Home Phone | | + + + | Preferred Language | Unknown | + + + | Marital Status | Single | + + + | Zoroastrian Affiliation | BAP | + + + | Race | White | + + + | Ethnic Group | Not or | + + + Author + + + | Author | [facility] | + + + | Organization | [facility] | + + + | [...] Team Providers + +------+ + | Care Multicultural Internship Name | Role | Phone | + +------+ + PCP | Unavailable | + +------+ + Encounter Details +--------+ + + + + | Date | Type | Department | Care Team | Description | +--------+ + + + + | 09/26/ | Telephone | Otolaryngology | Leon Hernandez, | | | 2005 | | Head and Neck | MD [address] | | | | | Surgery Services at | [address] | | | | | [facility] [address] | [place], [place] | | | | | [address] | [address] | | | | | Mailcode: [place] | [phone] | | | | | [address] | | | | | | [place], [place] | | | | | | [address] | | | | | | [phone] | | | +--------+ + + + [...] Description | +--------+---------+ + + + | 11/15/ | Office | Otolaryngology | Shlomo Roach MD | | | 2019 | Visit | | [address] | | | | | | [address] [place], | | | | | | [place] [address] | | | | | | [phone] | | | | | | | | +--------+---------+ + + + documented as of this encounter Visit Diagnoses Not on filedocumented in this encounter"
--- OUTSIDE RECORDS SUMMARY | ~2019-05-14 | XMS | Encounter Summary ---
Demographics + + + | Address | [address] | | | [place] [address] | + + + | Home Phone | | + + + | Preferred Language | Unknown | + + + | Marital Status | Single | + + + | Latter-Day Affiliation | BAP | + + + | Race | White | + + + | Ethnic Group | Not or | + + + Author + + + | Author | [facility] | + + + | Organization | Counts Include [facility] [employer] [facility] | + + + | [...] Team Providers + +------+ + | Care Test Pilot Name | Role | Phone | + +------+ + | No Pcp Per Patient | PCP | Unavailable | + +------+ + Reason for Visit + + + | Reason | Comments | + + + | Medication requested | Vicodin 500mg tablet. Called in to [facility] in | | | [place], [place] at [phone]. | + + + Encounter Details +--------+ + + + + | Date | Type | Department | Care Team | Description | +--------+ + + + + | 04/09/ | Telephone | Otolaryngology | Leon Hernandez, | Medication requested | | 2005 | | Head and Neck | [address] | (Vicodin 500mg | | | | Surgery Services at | [facility] | tablet. Called in | | | | [facility] [address] | [place], [place] | to [facility] | | | | [facility] | [address] | Pharmacy in [facility] | | | | Mailcode: PV01 | [phone] | [facility] | | | | [facility] | | [phone].) | | | | [facility] [place] | | | | | | [address] | | | | | | [phone] | | | +--------+ + + + [...] | | | | | [address] [place], | | | | | | [place] [address] | | | | | | [phone] | | | | | | | | +--------+---------+ + + + documented as of this encounter Visit Diagnoses Not on filedocumented in this encounter"
--- OUTSIDE RECORDS SUMMARY | ~2019-05-14 | XMS | Encounter Summary ---
Demographics + + + | Address | [address] | | | [place] [address] | + + + | Home Phone | | + + + | Preferred Language | Unknown | + + + | Marital Status | Single | + + + | Baptist Affiliation | BAP | + + + | Race | White | + + + | Ethnic Group | Not or | + + + Author + + + | Author | [facility] | + + + | Organization | [facility] [employer] [facility] | + + + [...] Team Providers + +------+ + | Care Soil Sampler Name | Role | Phone | + +------+ + | No Pcp Per Patient | PCP | Unavailable | + +------+ + Reason for Visit + + + | Reason | Comments | + + + | Follow-up encounter | | + + + | Erroneous Encounter | | | - Disregard | | + + + Benefits Check (Routine) +--------+--------+ + + + + | Status | Reason | Specialty | Diagnoses / | Referred By | Referred To | | | | | Procedures | Contact | Contact | +--------+--------+ + + + + | Closed | | Otolaryngolog | | Scott Delcid, | David | | | | cris | [facility] [address] | MD Leon | | | | | | Ron Dowling | [address] | | | | | | [place] | [address] | | | | | | [address] | [address] [facility] | | | | | | | [place] | | | | | | | [address] | | | | | | | Phone: | | | | | | | [phone] | | | | | | | Fax: | | | | | | | [phone] | +--------+--------+ + + + + Encounter Details +--------+---------+ + + + | Date | Type | Department | Care Team | Description | +--------+---------+ + + + | 01/16/ | Office | Otolaryngology | Leon Hernandez, | NO DIAGNOSIS | | 2005 | Visit | Head and Neck | [address] | RECEIVED (Primary | | | | Surgery Services at | [address] | Dx) | | | | [facility] [address] | [place], [place] | | | | | [address] | [address] | | | | | Mailcode: PV01 | [phone] | | | | | [facility] | | | | | | [place], [place] | | | | | | [address] | | | | | | [phone] | | | +--------+---------+ + + + Social History + +-------+ [...] + + documented as of this encounter Last Filed Vital Signs + + + + + | Vital Sign | Reading | Time Taken | Comments | + + + + + | Blood Pressure | - | - | | + + + + + | Pulse | - | - | | + + + + + | Temperature | - | - | | + + + + + | Respiratory Rate | - | - | | + + + + + | Oxygen Saturation | - | - | | + + + + + | Inhaled Oxygen | - | - | | | Concentration | | | | + + + + + | Weight | 79.4 kg (175 lb) | 01/16/2006 2:54 PM | | | | | PDT | | + + + + + | Height | - | - | | + + + + + | Body Mass Index | 26.61 | 09/17/2005 2:39 PM | | | | | PST | | + + + + + documented in this encounter Progress Leon Preciado - 01/19/2006 8:59 AM PDTThis encounter was opened in error. Please disreg delbert this note. documented in this encoun ter Plan of Treatment +--------+---------+ + + + | Date | Type | Specialty | Care Team | Description | +--------+---------+ + + + | 06/17/ | Office | Otolaryngology | Shlomo Roach MD | | | 2019 | Visit | | [address] | | | | | | [address], | | | | | | [place] [address] | | | | | | [phone] | | | | | | | | +--------+---------+ + + + documented as of this encounter Visit Diagnoses + + | Diagnosis | + + | NO DIAGNOSIS RECEIVED - Primary | + + documented in this encounter"
--- OUTSIDE RECORDS SUMMARY | ~2019-05-14 | XMS | Encounter Summary ---
Demographics + + + | Address | [address] | | | [place] [address] | + + + | Home Phone | | + + + | Preferred Language | Unknown | + + + | Marital Status | Single | + + + | Sikh Affiliation | BAP | + + + | Race | White | + + + | Ethnic Group | Not or | + + + Author + + + | Author | [facility] | + + + | Organization | [facility] | + + + | Address | Unknown | + + + | Phone | Unavailable | + + + Support + + +---------+ + | Name | Relationship | Address | Phone | + + +---------+ + | Shruthi Merino | ECON | Unknown | | + + +---------+ + | Haventasha Clarkpatricio | ECON | Unknown | | + + +---------+ + Care Team Providers + +------+ + | Care Compensation Specialist Name | Role | Phone | + +------+ + | Ritesh England PA-C | PCP | | + +------+ + Reason for Visit + + + | Reason | Comments | + + + | Liver Transplant | repeat labs | | Follow Up | | + + + Encounter Details +--------+ + + + + | Date | Type | Department | Care Team | Description | +--------+ + + + + | 11/12/ | Telephone | Transplant | Yvette Perkins RN | Liver Transplant | | 2019 | | Coordinators [address] | [address] | Follow Up (repeat | | | | [address] | [address] [place], | labs) | | | | [place], [place] | [place] [address] | | | | | [address] | | | | | | [phone] | | | +--------+ + + + + Social History + + + +--------+ + | Tobacco Use | Types | Packs/Day | Years | Date | | | | | Used | | + + + +--------+ + | Current Every Day | Cigarettes | 1 | 30 | Started: 1977 | | Smoker | | | | [...] | | | | | [address] [facility] | | | | | | [place] [address] | | | | | | [phone] | | | | | | | | +--------+---------+ + + + documented as of this encounter Visit Diagnoses Not on filedocumented in this encounter"
--- OUTSIDE RECORDS SUMMARY | ~2019-05-14 | XMS | Encounter Summary ---
Demographics + + + | Address | [address] | | | [place] [address] | + + + | Home Phone | | + + + | Preferred Language | Unknown | + + + | Marital Status | Single | + + + | Rastafari Affiliation | BAP | + + + | Race | White | + + + | Ethnic Group | Not or | + + + Author + + + | Author | [facility] | + + + | Organization | [facility] | + + + | Address [...] Team Providers + +------+ + | Care Batch Trucker Name | Role | Phone | + +------+ + | Ritesh England PA-C | PCP | | + +------+ + Encounter Details +--------+ + + + + | Date | Type | Department | Care Team | Description | +--------+ + + + + | 03/09/ | Abstract | Transplant | Dayron Donato MD | | | 2018 | | [address] | [address] | | | | | [address] | [address] [place], | | | | | Rd [place], [place] | [place] [address] | | | | | [address] | [phone] | | | | | [phone] | | | +--------+ + + + + Social History + + + +--------+------+ | Tobacco Use | Types | Packs/Day | Years | Date | | | | | Used | | + + + +--------+------+ | Current Every Day | Cigarettes | 1 | 25 | | | Smoker | | | | | + + + +--------+------+ + +------+---+---+ | Smokeless Tobacco: | Chew [...] physical, mental, or emotional | No | 01/13/2018 | | condition, do you have serious difficulty | | | | doing errands alone such as visiting the | | | | doctor? | | | + + + + + + + + | Cognitive Status | Response | Date of Assessment | + + + + | Because of a physical, mental, or emotional | No | 01/13/2018 | | condition, do you have serious [...] | | 2019 | Visit | | [address] | | | | | | [place], | | | | | | [place] [address] | | | | | | [phone] | | | | | | | | +--------+---------+ + + + documented as of this encounter Procedures + +--------+ + + + | Procedure Name | Priori | Date/Time | Associated Diagnosis | Comments | | | ty | | | | + +--------+ + + + | LIVER TRANSPLANT | Routin | 02/19/2018 | | Results for this | | POST PANEL (EXT | e | 11:57 PM | | procedure are in the | | RESULTS) | | PDT | | results section. | + +--------+ + + + documented in this encounter Results LIVER TRANSPLANT POST PANEL (EXT RESULTS) (02/19/2018 11:57 PM PDT) + +---------+ + + + | Component | Value | Ref Range | Performed | Pathologist | | | | | At | Signature | + +---------+ + + + | SODIUM, | 134 | mmol/L | [facility] | [facility] | | | (LAB) | | | LAB[facility]AT[facility] | | + +---------+ + + + | POTASSIUM, | 3.2 | mmol/L | [facility] | [facility] | | | (LAB) | | | LABORATORY | | + +---------+ + + + | CHLORIDE, | 98 | mmol/L | [facility] | [facility] | | | (LAB) | | | LABORATORY | | + +---------+ + + + | TOTAL CO2, | 24 | mmol/L | [facility] | [facility] | | | (LAB) | | | LABORATORY | | + +---------+ + + + | GLUCOSE, | 166 (A) | 65 - 110 mg/dL | [facility] | [facility] | | | (LAB) | | | LABORATORY | | + +---------+ + + + | BUN, PLASMA | 29 | mg/dL | [facility] | | | (LAB) | | | [facility]AL | | | | | | LABORATORY | | + +---------+ + + + | CREATININE | 1.46 | mg/dL | [facility] | | [facility] | | | (LAB) | | | LABORATORY | | + +---------+ + + + | CALCIUM, | 9.0 | mg/dL | [facility] | [facility] | [facility] | | | (LAB) | | | LABORATORY | | + +---------+ + + + | MAGNESIUM,P | 1.8 | mg/dL | [facility] | [facility] | | | | | | LABORATORY | | + +---------+ + + + | TOTAL | 7.7 | g/dL | [facility] | | | PROTEIN, | | | REG[facility]AL | | | PLASMA | | | LABORATORY | | | (LAB) | | | | | + +---------+ + + + | ALBUMIN, | 3.8 | g/dL | [facility] | [facility] | | | [facility] | | | (LAB) | | | LABORATORY | | + +---------+ + + + | BILIRUBIN | 0.5 | Transcutaneous | [facility] | | | TOTAL | | Bilirubinometer | REGIONAL | | | | | | LABORATORY | | + +---------+ + + + | ALK PHOS | 112 | U/L | [facility] | | | | | [facility] | | | | | | LAB[facility]ATORY | | + +---------+ + + + | AST(SGOT) | 41 | U/L | [facility] | | | [facility] | [facility] | | | | | | LABORATORY | | + +---------+ + + + | ALT (SGPT) | 53 | U/L | [facility] | | | | | [facility] | | | | | | LABORATORY | | + +---------+ + + + | WHITE CELL | 8.7 | K/cu mm | [facility] | | | COUNT | | | REGIONAL | | | | | | LABORATORY | | + +---------+ + + + | HEMATOCRIT | 39.7 | % | [facility] | | | | | [facility] | | | | | | LAB[facility]ATORY | | + +---------+ + + + | HEMOGLOBIN | 14.0 | 13.5 - 17.5 | [facility] | | | | | g/dL | REG[facility]AL | | | | | | LABORATORY | | + +---------+ + + + | PLATELET | 305 | K/cu mm | [facility] | | | COUNT | | | REG[facility]AL | | | | | | LABORATORY | | + +---------+ + + + | ETHANOL | 34 | mg/dL | [facility] | | | (ALCOHOL) | | | REGIONAL | | | | | | LABORATORY | | + +---------+ + + + | PROTIME | 13.1 | | [facility] | | | RATIO | | | REGIONAL | | | | | | LABORATORY | | + +---------+ + + + | INR | 1.0 | 0.98 - 1.08 INR | [facility] | | | | | | [facility] | | | | | | LABORATORY | | + +---------+ + + + | APTT | 31 | seconds | [facility] | | | | | [facility] | | | | | | LAB[facility]ATORY | | + +---------+ + + + + + | Specimen | + + | Blood - Blood | | (substance) | + + + + + | Narrative | Performed At | + + + | | | + + + + + + + + | Performing | Address | City/State/Zipcode | Phone Number | | Organization | | | | + + + + + | [facility] | [address] | [place] [address] | | | [facility] | | | | + + + + + documented in this encounter Visit Diagnoses Not on filedocumented in this encounter"
--- OUTSIDE RECORDS SUMMARY | ~2019-05-14 | XMS | Encounter Summary ---
Demographics + + + | Address | [address] | | | [place] [address] | + + + | Home Phone [...] Author + + + | Author | [facility] | + + + | Organization | [facility] | + + [...] Team Providers + +------+ + | Care Project Construction Manager Name | Role | Phone | + +------+ + | Ritesh England PA-C | PCP | | + +------+ + Encounter Details +--------+ + + + + | Date | Type | Department | Care Team | Description | +--------+ + + + + | 12/25/ | Abstract | Transplant | Brittney Pratt | | | 2018 | | [address]ordinators [address] | MD [address] | | | | | [address] | [place], [place] | | | | | [place], [place] | [address] | | | | | [address] | [phone] | | | | | [phone] | | | +--------+ + + + [...] | | | | | [address] [place], | | | | | | [place] [address] | | | | | | [phone] | | | | | | | | +--------+---------+ + + + documented as of this encounter Procedures + +--------+ + + + | Procedure Name | Priori | Date/Time | Associated Diagnosis | Comments | | | ty | | | | + +--------+ + + + | LIVER TRANSPLANT | Routin | 12/24/2017 | | Results for this | | POST PANEL (EXT | e | 12:43 PM | | procedure are in the | | RESULTS) | | PDT | | results section. | + +--------+ + + + documented in this encounter Results LIVER TRANSPLANT POST PANEL (EXT RESULTS) (12/24/2017 12:43 PM PDT) + +-------+ + + + | Component | Value | Ref Range | Performed | Pathologist | | | | | At | Signature | + +-------+ + + + | SODIUM, | 135 | mmol/L | [facility] | [facility] | | | (LAB) | | | LABORATORY | | + +-------+ + + + | POTASSIUM, | 3.2 | mmol/L | [facility] | | [facility] | | | (LAB) | | | LABORATORY | | + +-------+ + + + | CHLORIDE, | 96 | mmol/L | [facility] | [facility] | | | (LAB) | | | LABORATORY | | + +-------+ + + + | TOTAL CO2, | 29 | mmol/L | [facility] | | [facility] | | | [facility] | | | (LAB) | | | LABORATORY | | + +-------+ + + + | GLUCOSE, | 87 | 65 - 110 mg/dL | [facility] | | [facility] | | | [facility] | | | (LAB) | | | LABORATORY | | + +-------+ + + + | BUN, PLASMA | 10 | mg/dL | [facility] | | | (LAB) | | | REGIONAL | | | | | | LABORATORY | | + +-------+ + + + | CREATININE | 1.19 | mg/dL | [facility] | | | [facility] | | | REG[facility] | | | (LAB) | | | LABORATORY | | + +-------+ + + + | CALCIUM, | 9.1 | mg/dL | [facility] | | | [facility] | | | REGIONAL | | | (LAB) | | | LABORATORY | | + +-------+ + + + | PHOSPHORUS, | 3.5 | mg/dL | [facility] | | | [facility] | | | REGIONAL | | | (LAB) | | | LABORATORY | | + +-------+ + + + | MAGNESIUM,P | 2.0 | mg/dL | [facility] | | | L[facility] | | | REGIONAL | | | | | | LABORATORY | | + +-------+ + + + | TOTAL | 7.7 | g/dL | [facility] | | | PROTEIN, | | | REG[facility]AL | | | PLASMA | | | LABORATORY | | | (LAB) | | | | | + +-------+ + + + | ALBUMIN, | 4.4 | g/dL | [facility] | | | [facility] | | | REG[facility]AL | | | (LAB) | | | LABORATORY | | + +-------+ + + + | BILIRUBIN | 0.8 | Transcutaneous | [facility] | | | TOTAL | | Bilirubinometer | REGIONAL | | | | | | LABORATORY | | + +-------+ + + + | BILIRUBIN | 0.10 | mg/dL | [facility] | | | DIRECT | | | REG[facility]AL | | | | | | LABORATORY | | + +-------+ + + + | ALK PHOS | 103 | U/L | [facility] | | | | | | [facility] | | | | | | LAB[facility]ATORY | | + +-------+ + + + | AST(SGOT) | 59 | U/L | [facility] | | | | | | [facility] | | | | | | LABORATORY | | + +-------+ + + + | ALT (SGPT) | 53 | U/L | [facility] | | | | | | [facility] | | | | | | LABORATORY | | + +-------+ + + + | URIC ACID, | 6.4 | mg/dL | [facility] | | | [facility] | | | REG[facility] | | | (LAB) | | | LABORATORY | | + +-------+ + + + | WHITE CELL | 5.2 | K/cu mm | [facility] | | | COUNT | | | REGIONAL | | | | | | LABORATORY | | + +-------+ + + + | HEMATOCRIT | 45.7 | % | [facility] | | | | | | [facility] | | | | | | LABORATORY | | + +-------+ + + + | HEMOGLOBIN | 16.1 | 13.5 - 17.5 | [facility] | | | | | g/dL | REGIONAL | | | | | | LABORATORY | | + +-------+ + + + | PLATELET | 160 | K/cu mm | [facility] | | | COUNT | | | REGIONAL | | | | | | LABORATORY | | + +-------+ + + + | SIROLIMUS, | 2.6 | ng/mL | [facility] | | | WHOLE BLOOD | | | REGIONAL | | | | | | LABORATORY | | + +-------+ + + + [...] | [facility] | [address] | [place] [address] | | | [facility] | | | | + + + + + documented in this encounter Visit Diagnoses Not on filedocumented in this encounter"
--- OUTSIDE RECORDS SUMMARY | ~2019-05-14 | XMS | Encounter Summary ---
Demographics + + + | Address | [address] | | | [place] [address] | + + + | Home Phone | | + + + | Preferred Language | Unknown | + + + | Marital Status | Single | + + + | Episcopalian Affiliation | BAP | + + + | Race | White | + + + | Ethnic Group | Not or | + + + Author + + + | Author | [facility] | + + + | Organization | [facility] | + + + | Address [...] Team Providers + +------+ + | Care Lead Warehouse Associate Name | Role | Phone | + +------+ + PCP | Unavailable | + +------+ + Reason for Visit + + + | Reason | Comments | + + + | Neck ache | PT called stating neck and arm are getting worse, wants a nurse | | | to call him, let Christine know if he needs an earlier appointment, | | | thanks | + + + Encounter Details +--------+ + + + + | Date | Type | Department | Care Team | Description | +--------+ + + + + | 10/16/ | Telephone | Otolaryngology | Leon Hernandez, | Neck ache (PT called | | 2005 | | Head and Neck | [address] | stating neck and | | | | Surgery Services at | [address] | arm are getting | | | | [address] | [place], [place] | worse, wants a nurse | | | | [facility] | [address] | to call him, let | | | | Mailcode: PV01 | [phone] | Christine know if he | | | | [facility] | | needs an earlier | | | | [place], [place] | | appointment, thanks) | | | | [address] | | | | | | [phone] | | | +--------+ + + + [...] | | | | | [address] [place], | | | | | | [place] [address] | | | | | | [phone] | | | | | | | | +--------+---------+ + + + documented as of this encounter Visit Diagnoses Not on filedocumented in this encounter"
--- OUTSIDE RECORDS SUMMARY | ~2019-05-14 | XMS | Encounter Summary ---
Demographics + + + | Address | [address] | | | [place] [address] | + + + | Home Phone [...] + + | Author | [facility] | + + + | Organization | [facility] | + + + | Address | Unknown | + + + | Phone | Unavailable | + + + Support + + +---------+ + | Name | Relationship | Address | Phone | + + +---------+ + | Shruthi Merino | ECON | Unknown | | + + +---------+ + | Haventasha Souza | ECON | Unknown | | + + +---------+ + Care Team Providers + +------+ + | Care Commercial Real Estate Lender Name | Role | Phone | + +------+ + | Sylvester Scherer DO | PCP | | + +------+ + Reason for Visit + + + | Reason | Comments | + + + | Care Coordination | CE check | + + + Encounter Details +--------+ + + + + | Date | Type | Department | Care Team | Description | +--------+ + + + + | 07/13/ | Abstract | Transplant | Sabrina Guzman, | Care Coordination | | 2015 | | [address] | RN [address] | (CE check) | | | | [address] | [address] | | | | | Rd [place], [place] | [place], [place] | | | | | [address] | [address] | | | | | [phone] | | | +--------+ + + + [...] | | | | | [address] [place], | | | | | | [place] [address] | | | | | | [phone] | | | | | | | | +--------+---------+ + + + documented as of this encounter Visit Diagnoses Not on filedocumented in this encounter"
--- OUTSIDE RECORDS SUMMARY | ~2019-05-14 | XMS | Clinical Summary ---
Demographics + + + | Address | [address] | | | [place] [address] | + + + | Home Phone | | + + + | Preferred Language | Unknown | + + + | Marital Status | Single | + + + | Tenriism Affiliation | [id number] | + + + | Race | Unknown | + + + | Ethnic Group | Unknown | + + + Author + + + | Author | [facility] | | | and [place] | + + + | Organization | [facility] | | | and [place] | + + + | Address | Unknown | + + + | Phone | Unavailable | + + + Support + + + + + | Name | Relationship | Address | Phone | + + + + + | Brenda Jones | ECON | [place] | | | | | [address] | | + + + + + | Katarzyna Luke | ECON | , [place] | | + + + + + | chele townsend | ECON | Unknown | | + + + + + Care Team Providers + +------+ + | Care Cd Mixer Helper Name | Role | Phone | + +------+ + | Ritesh England PA-C | [place] | | + +------+ + Allergies + + + + + + | Active Allergy | Reactions | Severity | Noted | Comments | | | | | Date | | + + + + + + | Acetaminophen | Other (See Comments) | | 08/22/19 | Hx. Of Liver | | | | | 17 | transplant. | + + + + + + | Aspirin | Other (See Comments) | | 08/22/19 | Interacts with | | | | | 17 | "liver medications" | + + + + + + | Ibuprofen | | | 08/22/19 | Told not to take | | | | | 17 | due to liver | | | | | | transplant | + + + + + + | Morphine | Nausea Only | | 08/22/19 | Mild nausea | | | | | 17 | | + + + + + + Medications + + + +---------+------+------+-------+ | Medication | Sig | Dispensed | Refills | Star | End | Statu | | | | | | t | Date | s | | | | | | Date | | | + + + +---------+------+------+-------+ | mycophenolate | Take 500 mg by mouth | | 0 | | | Activ | | (CELLCEPT) 250 mg | 2 times daily. | | | | | e | | capsule | | | | | | | + + + +---------+------+------+-------+ | sirolimus | Take 2 mg by mouth | | 0 | | | Activ | | (RAPAMUNE) 1 mg | every morning. | | | | | e | | tablet | | | | | | | + + + +---------+------+------+-------+ | albuterol 90 | Inhale 2 puffs into | 1 | 0 | 01/2 | | Activ | | mcg/puff inhaler | the lungs every 6 | Inhaler | | 4/20 | | e | | | hours as needed for | | | 17 | | | | | Wheezing. | | | | | | + + + +---------+------+------+-------+ | furosemide (LASIX) | Take 0.5 tablets by | 30 | 0 | 12/2 | | Activ | | 20 mg tablet | mouth Three times a | tablet | | /20 | | e | | | week. | | | 18 | | | + + + +---------+------+------+-------+ | metoprolol | Take 1 tablet by | 60 | 5 | 05/0 | | Activ | | succinate | mouth 2 times daily. | tablet | | 8/20 | | e | | (TOPROL-XL) 100 mg | | | | 19 | | | | ER tablet | | | | | | | + + + +---------+------+------+-------+ | amLODIPine | Take 1 tablet by | 60 | 3 | 08/0 | | Activ | | (NORVASC) 5 mg | mouth 2 times daily. | tablet | | /20 | | e | | tablet | | | | 19 | | | + + + +---------+------+------+-------+ | | Take 1 tablet by | | 0 | | | Activ | | sulfamethoxazole-tri | mouth 2 times daily. | | | | | e | | methoprim (BACTRIM | | | | | | | | DS) 800-160 mg per | | | | | | | | tablet | | | | | | | + + + +---------+------+------+-------+ | | Take 1 tablet by | 20 | 0 | 1 | 04/03 | Disco | | HYDROcodone-acetamin | mouth every 6 hours | tablet | | /20 | / | ntinu | | ophen (NORCO) 5-325 | as needed. | | | 19 | 19 | ed | | mg per tablet | | | | | | | + + + +---------+------+------+-------+ | oxyCODONE | Take 1 tablet by | 20 | 0 | 04/03 | 04/03 | Expir | | (ROXICODONE) 5 mg | mouth every 6 hours | tablet | | 01/20 | 04/22 | ed | | tablet | as needed for Pain | | | 19 | 19 | | | | for up to 3 days. | | | | | | + + + +---------+------+------+-------+ Active Problems + + + | Problem | Noted Date | + + + | Palpitations | 11/22/2018 | + + + + + | Overview: Cardia Event Monitor 09/11/18-10/10/18: Very short | | duration of use (8 hours), baseline sinus rhythm, One symptomatic | | event showed sinus rhythm. Signed by Evan Womack | + + + + + | Dilated cardiomyopathy | 11/13/2016 | + + + | Tobacco user | 08/24/2016 | + + + | Acute congestive heart failure, unspecified congestive heart | 08/23/2016 | | failure type | | + + + + + | Overview: 1. Non ischemic cardiomyopathy, compensated | | congestive heart failure A. Echocardiogram 08/23/16, shows normal | | left ventricular size with moderate concentric left ventricular | | hypertrophy, there is a moderate global hypokinesis of the left | | ventricle, overall, left ventricular significant is moderately | | decreased, LVEF is 35-40%, mildly thickened and calcified | | trileaflet aortic valve with adequate opening, there is a mild | | aortic valve insufficiency, mildly thickened and calcified mitral | | valve with a mild mitral valve regurgitation, mild mitral | | annular calcification, small circumferential pericardial effusion | | without cardiac tamponade, normal right-sided pressure, normal | | IVC with normal respiratory collapse. B. Stress Test 08/25/16, | | shows persantine EKG is abnormal at baseline without diagnostic | | changes post stress, low risk persantine sestamibi myocardial | | perfusion study for coronary ischemia, notable for a small area | | of reduced uptake anteriorly as detailed above, suggestive of | | possible attenuation artifact versus a small true defect, with | | reduced LV systolic function and LV enlargement, LVEF by gated | | SPECT is 35%. C. Today, patient is doing well from cardiac | | standpoint. He is asymptomatic and physically active. There is | | no signs and symptoms of overt congestive heart failure. He is | | in a class I of [employer] functional class. | | There is no fluid retention on physical examination.2. Essential | | hypertension with goal blood pressure less than 130/803. Stage | | III chronic kidney disease4. Liver transplant Problem List | | Nuclear Pharmacist UtilityEchocardiogram 03/03/18: The left ventricular | | cavity size is normal. There is mild concentric left | | ventricular hypertrophy. Right ventricular size, thickness | | and function are normal. Aortic sclerosis. There are no | | prior exams available for comparison.Report electronically signed | | by: [id number] Andreas Denny MD (03/03/2018, 3:36:52 PM)Fellow(s) | | participating in diagnosis: Thien Huston; Chest X-ray 03/04/2018: | | The cardiomediastinal contours are normal. There is no focal | | consolidation. There is no pleural effusion or pneumothorax. | | Irregularity at the lateral aspect of the right ninth rib likely | | represents healed fracture deformity. No acute osseous | | abnormality is identified. Surgical clips projecting at the right | | neck soft tissues are incidentally noted. Final signature: | | Francesca Fuss, MD 03/04/2018 8:42 AM Preliminary: Shamar Gillette | | MD Katina | + + + + + | ANAID (acute kidney injury) | 08/23/2016 | + + + | Elevated troponin | 08/23/2016 | + + + | Bilateral pleural effusion | 08/23/2016 | + + + | Thrombocytopenia | 08/23/2016 | + + + | Liver replaced by transplant (HCC) 2011 | 08/22/2016 | + + + | Essential hypertension | 08/22/2016 | + + + + + | Overview: Echocardiogram on 02/22/19 shows normal left | | ventricular size with a mild to moderate concentric left | | ventricular hypertrophy, left ventricular systolic function is | | preserved, LVEF is 60 to 65%, grade 1 left ventricular diastolic | | dysfunction, mildly thickened and calcified trileaflet aortic | | valve with adequate opening, there is aortic valve sclerosis | | without significant aortic valve stenosis, there is a mild aortic | | valve insufficiency, mildly thickened and calcified mitral valve | | suggesting myxomatous change, mitral valve opens adequately, | | mild tricuspid valve regurgitation, normal right-sided pressure, | | normal IVC with a normal respiratory collapse, mild aortic root | | dilatation measuring 4.0 cm in diameter, when compared | | echocardiography on 08/22/2016, left ventricular cystic function | | is significantly improved and now normalized, by Yuan | | MD Yuliya.Stress test on 02/22/19 shows Persantine EKG is | | negative, normal Persantine sestamibi myocardial perfusion | | imaging study, normal left ventricular size, wall thickness and | | motion, preserved left ventricular systolic function, LVEF by | | gated SPECT is 55%, by Yuan Dwyer MD. | + + + + + | Primary malignant neoplasm of liver | 08/22/2016 | + + + | Pericardial effusion | 08/22/2016 | + + + | Dyspnea on exertion | 08/22/2016 | + + + | Skin cancer | 08/22/2016 | + + + | Kidney stones | 08/22/2016 | + + + | Squamous cell carcinoma of ear | 08/22/2016 | + + + Encounters +--------+ + + + + | Date | Type | Specialty | Care Team | Description | +--------+ + + + + | 05/12/ | Telephone | Cardiology | Nell, | Other (update on | | 2018 | | | [facility] | status, patient | | | | | | needs sooner | | | | | | appointment) | +--------+ + + + + | 04/18/ | Emergency | Emergency Medicine | Solis Matias, | Hypertension, | | 2018 | | | MD | unspecified type | | | | | | (Primary Dx); | | | | | | Nonintractable | | | | | | headache, | | | | | | unspecified | | | | | | chronicity pattern, | | | | | | unspecified headache | | | | | | type | +--------+ + + + + | 03/10/ | Office | Cardiology | Nell, | Acute congestive | | 2018 | Visit | | [facility] | heart failure, | | | | | | unspecified heart | | | | | | failure type (HCC) | | | | | | (Primary Dx); | | | | | | Essential | | | | | | hypertension; | | | | | | Pericardial | | | | | | effusion; Dilated | | | | | | cardiomyopathy | | | | | | (HCC); Palpitations | +--------+ + + + + | 03/10/ | Transcribed | Lab | Brittney Pratt | Liver replaced by | | 2018 | Orders | | MD Kiah | transplant (HCC) | | | | | | (Primary Dx); Immune | | | | | | disorder (HCC); | | | | | | Encounter for | | | | | | long-term (current) | | | | | | use of high-risk | | | | | | medication | +--------+ + + + + | 02/22/ | Hospital | Radiology | Nell, | | | 2018 | Encounter | | [facility] | | +--------+ + + + + | 02/22/ | Hospital | Radiology | Nell, | Essential | | 2018 | Encounter | | [facility] | hypertension; Chest | | | | | | pain, unspecified | | | | | | type | +--------+ + + + + | 02/22/ | Hospital | Radiology | Nell, | Essential | | 2019 | Encounter | | [facility] | hypertension; Chest | | | | | Developer Relations Manager, [employer] | pain, unspecified | | | | | | type | +--------+ + + + + from Last 3 Months Immunizations + + + + | Name | Dates Previously Given | Next Due | + + + + | HEP B, 3 DOSE | 11/13/2010 | | | (ADULT) | | | + + + + | INFLUENZA PF | 04/23/2017, 08/23/2016 | | | QUAD(PED/ADOL/ADULT) | | | | ,PSKT or VIAL | | | + + + + | INFLUENZA, | 06/20/2011, 05/03/2010 | | | UNSPECIFIED | | | | FORMULATION | | | + + + + | PNEUMOCOCCAL | 08/23/2016 | | | CONJUGATE 13-VALENT | | | | (PCV13) | | | + + + + | PNEUMOCOCCAL | 03/27/2010 | | | POLYSACCHARIDE | | | | 23-VALENT (PPSV23) | | | + + + + | TDAP, (ADOL/ADULT) | 11/13/2010 | | + + + + Family History + + +------+ + | Medical History | Relation | Name | Comments | + + +------+ + | Diabetes | Brother | | | + + +------+ + | Diabetes | Mother | | | + + +------+ + + +------+--------+ + | Relation | Name | Status | Comments | + +------+--------+ + | Brother | | | | + +------+--------+ + | Mother | | | | + +------+--------+ + Social History + +-------+ +--------+------+ | [...] | | | + +---+---+---+ + + | Tobacco Cessation: Ready to Quit: No; Counseling Given: No | + + + + +---------+ + | Alcohol Use [...] recent travel history available. | + + Last Filed Vital Signs + + + + | Vital Sign | Reading | Time Taken | + + + + | Blood Pressure | 180/98 | 04/18/2019 1500 PDT | + + + + | Pulse | 75 | 04/18/2019 1500 PDT | + + + + | Temperature | 36.4 C (97.6 F) | 04/18/2019 1140 PDT | + + + + | Respiratory Rate | 15 | 04/18/2019 1500 PDT | + + + + | Oxygen Saturation | 99% | 04/18/2019 1500 PDT | + + + + | Inhaled Oxygen | - | - | | Concentration | | | + + + + | Weight | 68.5 kg (151 lb) | 04/18/2019 1140 PDT | + + + + | Height | 172.7 cm (5' 8") | 04/18/2019 1140 PDT | + + + + | Body Mass Index | 22.96 | 04/18/20190 PDT | + + + + Plan of Treatment +--------+---------+ + + + | Date | Type | Specialty | Care Team | Description | +--------+---------+ + + + | 06/01/ | Office | Cardiology | Nell, | | | 2018 | Visit | | [facility] [address] | | | | | | [place], | | | | | | [place] [address] | | | | | | [phone] | | | | | | | | +--------+---------+ + + + + + + + + | Health Maintenance | Due Date | Last Done | Comments | + + + + + | Hepatitis C | | | | | Screening | 8 | | | + + + + + | Colorectal Cancer | | | | | Screening | 8 | | | | (Colonoscopy) | | | | + + + + + | Vaccine: Zoster (1 | | | | | of 2) | 8 | | | + + + + + | Adult Annual | | | | | Wellness Visit | 7 | | | + + + + + | Vaccine: | | 08/23/2016, 03/27/2010 | | | Pneumococcal 19-64 | 7 | | | | Highest Risk (3 of 3 | | | | | - PPSV23) | | | | + + + + + | Vaccine: Influenza | | 04/23/2017, 08/23/2016, | | | (#1) | 9 | 06/20/2011, Additional history | | | | | exists | | + + + + + | Vaccine: | | 11/13/2010 | | | Dtap/Tdap/Td (2 - | 1 | | | | Td) | | | | + + + + + Procedures + +--------+ + + + | Procedure Name | Priori | Date/Time | Associated Diagnosis | Comments | | | ty | | | | + +--------+ + + + | CT HEAD WO CONTRAST | STAT | 04/18/2019 | | Results for this | | | | 12:57 PDT | | procedure are in the | | | | | | results section. | + +--------+ + + + | ECG 12 LEAD | STAT | 04/18/2019 | | Results for this | | | | 12:44 PDT | | procedure are in the | | | | | | results section. | + +--------+ + + + | BASIC METABOLIC | STAT | 04/18/2019 | | Results for this | | PANEL | | 12:41 PDT | | procedure are in the | | | | | | results section. | + +--------+ + + + | CBC WITH | STAT | 04/18/2019 | | Results for this | | DIFFERENTIAL | | 12:41 PDT | | procedure are in the | | | | | | results section. | + +--------+ + + + | XR CHEST AP PORTABLE | STAT | 04/18/2019 | | Results for this | | | | 12:38 PDT | | procedure are in the | | | | | | results section. | + +--------+ + + + | EXTRA GREEN TOP TUBE | STAT | 04/18/2019 | | Results for this | | | | 12:30 PDT | | procedure are in the | | | | | | results section. | + +--------+ + + + | EXTRA BLUE TOP TUBE | STAT | 04/18/2019 | | Results for this | | | | 12:30 PDT | | procedure are in the | | | | | | results section. | + +--------+ + + + | EXTRA LAVENDER TOP | STAT | 04/18/2019 | | Results for this | | TUBE | | 12:30 PDT | | procedure are in the | | | | | | results section. | + +--------+ + + + | ED INFORMATION | Routin | 04/18/2019 | | | | EXCHANGE | e | 11:30 PDT | | | + +--------+ + + + +---+--------+ | | | | | Proced | | | ure | | | Note - | | | [place], | | | Lab In | | | | | | Hlseve | | | n - | | | 09/16/ | | | 2019 | | | 1131 | | | PDT | | | Format | | | ting | | | of | | | this | | | note | | | might | | | be | | | differ | | | ent | | | from | | | the | | | origin | | | al.COL | | | LECTIV | | | E?NOTI | | | FICATI | | | ON?09/ | | | 16/201 | | | 9 | | | 11:29? | | | MICHAELS, | | | | | | MARISSA | | | | | | R?MRN: | | | | | | [id number] | | | [id number] | | | riteri | | | a Met | | | Care | | | Guidel | | | inesSe | | | curity | | | and | | | Safety | | | Date | | | Locati | | | on | | | Type | | | Specif | | | ics | | | 3/26/1 | | | 8 | | | 12:52 | | | AM [facility] | | | al | | | Elopem | | | ent | | | Patien | | | t | | | eloped | | | | | | before | | | | | | treatm | | | ent | | | comple | | | satya. | | | Detail | | | s: AMA | | | | | | Securi | | | ty | | | Events | | | (18 | | | Mo.) | | | Count | | | Elopem | | | ent 1 | | | Total | | | 1 ED | | | Care | | | Guidel | | | inesTh | | | ere | | | are | | | curren | | | tly no | | | ED | | | Care | | | Guidel | | | emiliano | | | for | | | this | | | patien | | | t. | | | Please | | | check | | | your | | | facili | | | ty's | | | medica | | | l | | | record | | | s | | | system | | | .Care | | | Histor | | | yMedic | | | al/Tamanna | | | [email or web address] | | | /14/18 | | | 12:00 | | | AM | | | [facility] | | | al | | | Patien | | | t is | | | curren | | | tly | | | establ | | | ished | | | with | | | St | | | [facility] | | | . If | | | patien | | | t is | | | seen | | | in the | | | ED | | | during | | | | | | busine | | | ss | | | hours. | | | | | | Please | | | | | | contac | | | t [facility] | [facility] | at [facility] | | | | | | [facility] | | | y | | | [facility] | | | at | | | Ext | | | 156-24 | | | 04.Car | | | e | | | Recomm | | | endati | | | on:Thi | | | s | | | patien | | | t has | | | had 5 | | | or | | | more | | | Emerge | | | ncy | | | Depart | | | ment | | | visits | | | in | | | the | | | last | | | 12 | | | months | | | .? | | | Patien | | | t | | | requir | | | es | | | educat | | | ion on | | | the | | | scope | | | and | | | purpos | | | e of | | | the ED | | | as an | | | acute | | | care | | | provid | | | er not | | | a | | | Primar | | | y Care | | | | | | Provid | | | er and | | | | | | should | | | not | | | be | | | utiliz | | | ed for | | | | | | chroni | | | c | | | condit | | | ions.? | | | If | | | patien | | | t | | | return | | | s to | | | ED | | | please | | | | | | contac | | | t | | | Commun | | | ity | | | Health | | | | | | Worker | | | , | | | Pia | | | at | | | [phone] | [phone] | [phone] | | | .These | | | are | | | guidel | | | emiliano | | | and | | | the | | | provid | | | er | | | should | | | | | | exerci | | | se | | | clinic | | | al | | | judgme | | | nt | | | when | | | provid | | | ing | | | care.P | | | rescri | | | ption | | | Drug | | | Report | | | (12 | | | Mo.)PD | | | MP | | | query | | | found | | | no | | | report | | | .E.D. | | | Visit | | | Count | | | (12 | | | mo.)Fa | | | cility | | | | | | Visits | | | Low | | | [facility] | | | | | | [facility] | | | | [facility] | | | and | | | [facility]ien[facility] | | | e | | | Univer | | | sity 1 | | | 0 | | | Provid | | | ence | | | St[facility] | | | [facility] | | | l | | | Center | | | 2 0 | | | [facility] | | [facility] | | | al 1 0 | | | Total | | | 4 0 | | | Note: | | | Visits | | | | | | indica | | | te | | | total | | | known | | | visits | | | . | | | Medica | | | id Low | | | | | | [facility] | | | Dx | | | are | | | the | | | number | | | of | | | primar | | | y | | | diagno | | | ses on | | | the | | | Medica | | | id's | | | Low | | | [facility] | | | dx | | | list. | | | | | | Recent | | | | | | Emerge | | | ncy | | | Depart | | | ment | | | Visit | | | [facility] | | | yDate | | | Facili | | | ty | | | City | | | State | | | Type | | | Diagno | | | ses or | | | Chief | | | | | | Compla | | | int | | | Sep | | | 16, | | | 2019 | | | Provid | | | ence | | | [facility] | [facility] | [place] | | | [place] | | | Emerge | | | ncy | | | | | | dizzin | | | ess/he | | | adache | | | s | | | dizzin | | | ess/he | | | adache | | | s/High | | | BP | | | Aug | | | 31, | | | 2019 | | | [facility] | | | [place] | | | [place] | | | Emerge | | | ncy | | | | | | Otalgi | | | a, | | | left | | | ear | | | Liver | | | | | | transp | | | lant | | | status | | | | | | Person | | | al | | | histor | | | y of | | | malign | | | ant | | | neopla | | | sm of | | | liver | | | | | | Nicoti | | | ne | | | depend | | | ence, | | | unspec | | | ified, | | | | | | uncomp | | | licate | | | d | | | Person | | | al | | | histor | | | y of | | | urinar | | | y | | | calcul | | | i | | | Heart | | | failur | | | e, | | | unspec | | | ified | | | | | | Allerg | | | y | | | status | | | to | | | analge | | | sic | | | agent | | | status | | | | | | Hypert | | | ensive | | | heart | | | and | | | chroni | | | c | | | kidney | | | | | | diseas | | | e with | | | heart | | | | | | failur | | | e and | | | stage | | | 1 | | | throug | | | h | | | stage | | | 4 | | | chroni | | | c | | | kidney | | | | | | diseas | | | e, or | | | unspec | | | ified | | | chroni | | | c | | | kidney | | | | | | diseas | | | e | | | Chroni | | | c | | | kidney | | | | | | diseas | | | e, | | | unspec | | | ified | | | | | | Cellul | | | itis | | | of | | | left | | | sewer pipe layer | | | al ear | | | Feb | | | 5, | | | 2019 | | | [facility] | [facility] | | | [facility]ien[facility] | | | e | | | Univer | | | sity | | | [place] | | | [place] | | | Emerge | | | ncy | | | | | | 10,800 | | | . | | | ABNORM | | | AL LAB | | | | | | RESULT | | | S | | | 18,400 | | | . | | | Essent | | | ial | | | (prima | | | ry) | | | hypert | | | ension | | | | | | 18,400 | | | . | | | Malign | | | ant | | | neopla | | | sm of | | | head, | | | face | | | and | | | neck | | | | | | 18,400 | | | . | | | Squamo | | | us | | | cell | | | carcin | | | horace of | | | skin | | | of | | | unspec | | | ified | | | ear | | | and | | | sewer pipe layer | | | al | | | auricu | | | lar | | | canal | | | Dec | | | 20, | | | 2018 | | | Provid | | | ence | | | St[facility] | | | [facility] | | [place] | | | [place] | | | Emerge | | | ncy | | | Chest | | | pain | | | | | | Headac | | | he | | | (Adult | | | - New | | | Onset | | | Or | | | New | | | Sympto | | | ms) | | | | | | Essent | | | ial | | | (prima | | | ry) | | | hypert | | | ension | | | | | | Headac | | | he | | | Chest | | | pain, | | | unspec | | | ified | | | | | | Recent | | | | | | Inpati | | | ent | | | Visit | | | [facility] | | | yDate | | | Facili | | | ty | | | City | | | State | | | Type | | | Diagno | | | ses or | | | Chief | | | | | | Compla | | | int | | | Feb 5, | | | 2019 | | | [facility] | [facility] | | and | | | Scien[facility] | | | e | | | Univer | | | sity | | | [place] | | | [place] | | | Inpati | | | ent | | | | | | 18,400 | | | . | | | Abdomi | | | nal | | | aortic | | | | | | aneury | | | sm, | | | withou | | | t | | | ruptur | | | e | | | 18,400 | | | . | | | Liver | | | transp | | | lant | | | status | | | | | | 18,400 | | | . | | | Person | | | al | | | histor | | | y of | | | malign | | | ant | | | neopla | | | sm of | | | liver | | | | | | 18,400 | | | . | | | Squamo | | | us | | | cell | | | carcin | | | horace of | | | skin | | | of | | | unspec | | | ified | | | ear | | | and | | | sewer pipe layer | | | al | | | auricu | | | lar | | | canal | | | | | | 18,400 | | | . | | | Malign | | | ant | | | neopla | | | sm of | | | head, | | | face | | | and | | | neck | | | | | | 18,400 | | | . | | | Essent | | | ial | | | (prima | | | ry) | | | hypert | | | ension | | | Care | | | | | | TeamPr | | | ovider | | | | | | Specia | | | lty | | | Phone | | | Fax | | | Servic | | | e | | | Dates | | | KARGAR | | | , | | | QUINCY, | | | DO | | | [employer]ger | | | al | | | Medici | | | ne | | | Sep 3, | | | 2019 | | | - | | | Curren | | | t | | | ANTONIO | | | S, | | | BENJAM | | | [place], | | | PA-C | | | Physic | | | enma | | | Assist | | | ant | | | Curren | | | t | | | QUINCY | | | KARGAR | | | | | | Primar | | | y Care | | | Solitario | | | 1, | | | 2016 - | | | | | | Curren | | | t | | | Collec | | | tive | | | Portal | | | This | | | patien | | | t has | | | regist | | | ered | | | at the | | | | | | Provid | | | ence | | | St[facility] | | | [facility] | | [facility] | | | | | | Emer[facility] | | | ncy | | | Depart | | | ment | | | For | | | more | | | inform | | | ation | | | visit: | | | | | | https: | | | //secu | | | re.[email or web address] | | | lectiv | | | emedic | | | [email or web address].com | | | /[email or web address] | | | [id number] | | | [id number] | | | [id number] | | | [id number] | | | [id number] | | | [id number] | | | 6a | | | PLEASE | | | NOTE: | | | 1. | | | Any | | | care | | | recomm | | | endati | | | ons | | | and | | | other | | | clinic | | | al | | | inform | | | ation | | | are | | | provid | | | ed as | | | guidel | | | emiliano | | | or for | | | | | | histor | | | ical | | | purpos | | | es | | | only, | | | and | | | provid | | | ers | | | should | | | | | | exerci | | | se | | | their | | | own | | | clinic | | | al | | | judgme | | | nt | | | when | | | provid | | | ing | | | care. | | | 2. | | | You | | | may | | | only | | | use | | | this | | | inform | | | ation | | | for | | | purpos | | | es of | | | treatm | | | ent, | | | paymen | | | t or | | | health | | | care | | | operat | | | ions | | | activi | | | ties, | | | and | | | subjec | | | t to | | | the | | | limita | | | tions | | | of | | | applic | | | able | | | Collec | | | tive | | | Polici | | | es. | | | 3. | | | You | | | should | | | | | | consul | | | t | | | direct | | | ly | | | with | | | the | | | organi | | | zation | | | that | | | provid | | | ed a | | | care | | | guidel | | | ine or | | | other | | | | | | clinic | | | al | | | histor | | | y with | | | any | | | questi | | | ons | | | about | | | additi | | | onal | | | inform | | | ation | | | or | | | accura | | | cy or | | | comple | | | teness | | | of | | | inform | | | ation | | | provid | | | ed.? | | | 2018 | | | Collec | | | tive | | | Medica | | | l | | | Techno | | | logies | | | , Inc. | | | - | | | [email or web address] | | | llecti | | | vemedi | | | [email or web address] | | | m | +---+--------+ + +--------+ + + + | ECHO COMPLETE | Routin | 02/22/2019 | Essential | Results for this | | | e | 14:44 PDT | hypertension Chest | procedure are in the | | | | | pain, unspecified | results section. | | | | | type | | + +--------+ + + + | NM NUCLEAR STRESS | Routin | 02/22/2019 | Essential | Results for this | | TEST (PHARMACOLOGIC | e | 11:59 PDT | hypertension Chest | procedure are in the | | - VASODILATOR) | | | pain, unspecified | results section. | | | | | type | | + +--------+ + + + from Last [address] Head wo Contrast (04/18/2019 12:57 PDT) + + | Specimen | + + | | + + + + + | Narrative | Performed At | + + + | UNENHANCED HEAD CT 04/18/2019 12:51 PM CLINICAL | [facility] | | HISTORY: Hypertension, dizziness and headache | | | COMPARISON: CT July 2018 TECHNIQUE: Axial unenhanced images | | | are performed through the head, along with coronal and sagittal | | | reformations. FINDINGS: Mild hypoattenuation of the | | | periventricular white matter is again evident. Levy-white | | | differentiation is maintained. There is a stable rounded | | | hypodensity in the right basal ganglia, consistent with a chronic | | | lacunar infarct along with tiny hypodensities in the left basal | | | ganglia and likely the left thalamus. The ventricles, brainstem | | | and cerebellum are unremarkable. There is no mass effect, evidence | | | of recent intracranial hemorrhage or extra-axial | | | abnormality. Calcified plaque is present in the terminal internal | | | carotid arteries. Prominent fat attenuation material likely | | | reflecting a soft tissue graft is again visible in the expected | | | location of the right ear, which appears to be absent along with the | | | posterior zygomatic arch. Changes of right mastoidectomy and | | | resection of the middle ear contents is again apparent as | | | well. The bones and soft tissues, including the imaged paranasal | | | sinuses, left middle ear cavity and left mastoid air cells, are | | | otherwise unremarkable. No fracture is visible. IMPRESSION | | | - 1. NO EVIDENCE OF ACUTE INTRACRANIAL DISEASE. | | | 2. VASCULAR CALCIFICATION WITH PROBABLE CHRONIC, MICROVASCULAR | | | ISCHEMIC CHANGE OF THE PERIVENTRICULAR WHITE MATTER AND CHRONIC | | | LACUNAR INFARCTS IN THE BASAL GANGLIA. 3. STABLE, EXTENSIVE | | | POSTOPERATIVE CHANGES IN THE RIGHT AURICULAR REGION. Images were | | | provided for interpretation on April 18, 2019 at 1300 hours. | | | Results were finalized at 1320 hours. Dictated and Signed by: | | | Miguel Welch MD Electronically signed: 04/18/2019 1:20 PM | | + + + + + | Procedure Note | + + | [place], Rad Results In - 04/18/2019 1323 [address] HEAD [address] 04/18/2019 12:51 PM | | | | CLINICAL HISTORY: Hypertension, dizziness and headache | | | | COMPARISON: CT July 2018 | | | | TECHNIQUE: Axial unenhanced images are performed through the head, along with | | coronal and sagittal reformations. | | | | FINDINGS: Mild hypoattenuation of the periventricular white matter is again | | evident. Levy-white differentiation is maintained. There is a stable rounded | | hypodensity in the right basal ganglia, consistent with a chronic lacunar | | infarct along with tiny hypodensities in the left basal ganglia and likely the | | left thalamus. The ventricles, brainstem and cerebellum are unremarkable. | | There is no mass effect, evidence of recent intracranial hemorrhage or | | extra-axial abnormality. Calcified plaque is present in the terminal internal | | carotid arteries. Prominent fat attenuation material likely reflecting a soft | | tissue graft is again visible in the expected location of the right ear, which | | appears to be absent along with the posterior zygomatic arch. Changes of right | | mastoidectomy and resection of the middle ear contents is again apparent as | | well. The bones and soft tissues, including the imaged paranasal sinuses, left | | middle ear cavity and left mastoid air cells, are otherwise unremarkable. No | | fracture is visible. | | | | IMPRESSION - | | 1. NO EVIDENCE OF ACUTE INTRACRANIAL DISEASE. | | | | 2. VASCULAR CALCIFICATION WITH PROBABLE CHRONIC, MICROVASCULAR ISCHEMIC CHANGE | | OF THE PERIVENTRICULAR WHITE MATTER AND CHRONIC LACUNAR INFARCTS IN THE BASAL | | GANGLIA. | | | | 3. STABLE, EXTENSIVE POSTOPERATIVE CHANGES IN THE RIGHT AURICULAR REGION. | | | | Images were provided for interpretation on April 18, 2019 at 1300 hours. | | Results were finalized at 1320 hours. | | | | Dictated and Signed by: Miguel Welch MD | | Electronically signed: 04/18/2019 1:20 PM | + + + +---------+ + + | Performing | Address | City/State/Zipcode | Phone Number | | Organization | | | | + +---------+ + + | [facility] | | | | + +---------+ + + ECG 12 lead (04/18/2019 12:44 PDT) + + + + + + | Component | Value | Ref Range | Performed | Pathologist | | | | | At | Signature | + + + + + + | VENTRICULAR | 63 | BPM | [facility] | | | RATE EKG | | | | | + + + + + + | ATRIAL RATE | 63 | BPM | [facility] | | + + + + + + | P-R | 172 | ms | [facility] | | | INTERVAL | | | | | + + + + + + | QRS | 94 | ms | [facility] | | | DURATION | | | | | + + + + + + | Q-T | 450 | ms | [facility] | | | INTERVAL | | | | | + + + + + + | Q-T | 460 | ms | [facility] | | | INTERVAL | | | | | | (CORRECTED) | | | | | + + + + + + | P WAVE AXIS | 50 | degrees | [facility] | | + + + + + + | QRS AXIS | 2 | degrees | [facility] | | + + + + + + | T AXIS | 31 | degrees | [facility] | | + + + + + + | INTERPRETAT | Normal sinus | | [facility] | | | ION TEXT | rhythmPossible Left | | | | | | atrial | | | | | | enlargementMinimal | | | | | | voltage criteria for | | | | | | LVH, may be normal | | | | | | variantWhen compared | | | | | | with ECG of 08-DEC-2018 | | | | | | 11:46,Nonspecific ST | | | | | | abnormality has | | | | | | improvedConfirmed by | | | | | | GAB MERA MD ([id number]) | | | | | | on 04/18/2019 5:48:06 PM | | | | + + + + + + + + | Specimen | + + | | + + + + + | Narrative | Performed At | + + + | | | + + + + +---------+ + + | Performing | Address | City/State/Zipcode | Phone Number | | Organization | | | | + +---------+ + + | [facility] | | | | + +---------+ + + CBC with Differential (04/18/2019 12:41 PDT) + + + + + + | Component | Value | Ref Range | Performed | Pathologist | | | | | At | Signature | + + + + + + | WBC | 5.9 | 4.0 - 11.0 K/uL | [facility] | | | | | [facility] | | | | | [facility] | | [facility] - | | | | | | LAB[facility]ATORY | | + + + + + + | RBC | 4.92 | 4.30 - 5.70 | [facility] | | | | | M/uL | [facility] | | | | | | [facility] | | | | | | [facility] - | | | | | | LABORATORY | | + + + + + + | Hemoglobin | 14.3 | 13.5 - 18.0 | [facility] | | | | | g/dL | [facility] | | | | | | [facility] | | | | | | C[facility] - | | | | | | LABORATORY | | + + + + + + | Hematocrit | 43.3 | 40.0 - 51.0 % | [facility] | | | | | | [facility] | | | | | | [facility] | | | | | | C[facility] - | | | | | | LABORATORY | | + + + + + + | MCV | 88.0 | 83.0 - 101.0 fL | [facility] | | | | | | [facility] | | | | | | [facility] | | | | | | [facility] - | | | | | | LABORATORY | | + + + + + + | MCH | 29.1 | 28.0 - 35.0 pg | [facility] | | | | | | [facility] | | | | | | [facility] | | | | | | C[facility] - | | | | | | LABORATORY | | + + + + + + | MCHC | 33.0 | 32.0 - 36.0 | [facility] | | | | | g/dL | [facility] | | | | | | [facility] | | | | | | CENTER - | | | | | | LABORATORY | | + + + + + + | RDW-CV | 13.7 | <15.0 % | [facility] | | | | | | [facility] | | | | | | [facility] | | | | | | [facility] - | | | | | | LABORATORY | | + + + + + + | RDW-SD | 44.2 | 35.1 - 46.3 fL | [facility] | | | | | | [facility] | | | | | | [facility] | | | | | | [facility] - | | | | | | LABORATORY | | + + + + + + | Platelet | 222 | 140 - 440 K/uL | [facility] | | | Count | | | [facility] | | | [facility] | | [facility] | | | | | | [facility] - | | | | | | LABORATORY | | + + + + + + | MPV | 8.8 | 6.5 - 12.4 fL | [facility] | | | | | | [facility] | | | | | | [facility] | | | | | | [facility] - | | | | | | LABORATORY | | + + + + + + | % | 70.6 | 45.0 - 82.0 % | [facility] | | | Neutrophils | | | [facility] | | | | | | [facility] | | | | | | CENTER - | | | | | | LABORATORY | | + + + + + + | % | 17.4 (L) | 20.0 - 45.0 % | [facility] | | | Lymphocytes | | | [facility] | | | | | | [facility] | | | | | | CENTER - | | | | | | LABORATORY | | + + + + + + | % Monocytes | 9.8 | 4.0 - 12.0 % | [facility] | | | | | | [facility] | | | | | | [facility] | | | | | | [facility] - | | | | | | LABORATORY | | + + + + + + | % | 1.2 | 0.0 - 5.0 % | [facility] | | | Eosinophils | | | [facility] | | | | | | [facility] | | | | | | CENTER - | | | | | | LABORATORY | | + + + + + + | % Basophils | 0.7 | 0.0 - 1.0 % | [facility] | | | | | | [facility] | | | | | | [facility] | | | | | | CENTER - | | | | | | LABORATORY | | + + + + + + | % Immature | 0.3 | 0.0 - 0.4 % | [facility] | | | Granulocyte | | | [facility] | | | s | | | MEDICAL | | | | | | CENTER - | | | | | | LABORATORY | | + + + + + + | Absolute | 4.18 | 1.80 - 8.50 | [facility] | | | Neutrophils | | K/uL | [facility] | | | | | | [facility] | | | | | | CENTER - | | | | | | LABORATORY | | + + + + + + | Absolute | 1.03 | 0.60 - 3.20 | [facility] | | | Lymphocytes | | K/uL | [facility] | | | | | | [facility] | | | | | | CENTER - | | | | | | LABORATORY | | + + + + + + | Absolute | 0.58 | 0.00 - 1.00 | [facility] | | | Monocytes | | K/uL | [facility] | | | | | | [facility] | | | | | | CENTER - | | | | | | LABORATORY | | + + + + + + | Absolute | 0.07 | 0.00 - 0.40 | [facility] | | | Eosinophils | | K/uL | [facility] | | | | | | [facility]ICAL | | | | | | CENTER - | | | | | | LABORATORY | | + + + + + + | Absolute | 0.04 | 0.00 - 0.10 | [facility] | | | Basophils | | K/uL | [facility] | | | | | | [facility]ICAL | | | | | | CENTER - | | | | | | LABORATORY | | + + + + + + | Absolute | 0.02 | 0.00 - 0.03 | [facility] | | | Immature | | K/uL | [facility] | | | Granulocyte | | | MEDICAL | | | s | | | CENTER - | | | | | | LABORATORY | | + + + + + + | % nRBC | 0 | 0 - 2 per 100 | [facility] | | | | | WBCs | [facility] | | | | | | [facility] | | | | | | CENTER - | | | | | | LABORATORY | | + + + + + + | Absolute | 0.00 | 0.00 - 0.01 | [facility] | | | nRBC | | K/uL | [facility] | | | | | | [facility] | | | | | | CENTER - | | | | | | LABORATORY | | + + + + + + + + | Specimen | + + | Blood | + + + + + + + | Performing | Address | City/State/Zipcode | Phone Number | | Organization | | | | + + + + + | [facility] | [address] | [place] | [phone] | | [facility] | | [address] | | | - LABORATORY | | | | + + + + + Basic Metabolic Panel (04/18/2019 12:41 PDT) + + + + + + | Component | Value | Ref Range | Performed | Pathologist | | | | | At | Signature | + + + + + + | Na | 136 | 136 - 145 | [facility] | | | | | mmol/L | [facility] | | | | | | [facility] | | | | | | CENTER - | | | | | | LABORATORY | | + + + + + + | K | 4.3 | 3.4 - 5.1 | [facility] | | | | | mmol/L | [facility] | | | | | | [facility]ICAL | | | | | | CENTER - | | | | | | LABORATORY | | + + + + + + | Cl | 101 | 98 - 107 mmol/L | [facility] | | | | | | [facility] | | | | | | MEDICAL | | | | | | CENTER - | | | | | | LABORATORY | | + + + + + + | CO2 | 29 | 20 - 31 mmol/L | [facility] | | | | | | [facility] | | | | | | MEDICAL | | | | | | CENTER - | | | | | | LABORATORY | | + + + + + + | Anion Gap | 6 | 3 - 16 mmol/L | [facility] | | | | | | [facility] | | | | | | MEDICAL | | | | | | CENTER - | | | | | | LABORATORY | | + + + + + + | Glucose | 105 | 60 - 106 mg/dL | [facility] | | | | | | [facility] | | | | | | MEDICAL | | | | | | CENTER - | | | | | | LABORATORY | | + + + + + + | BUN | 17 | 9 - 23 mg/dL | [facility] | | | | | | [facility] | | | | | | [facility] | | | | | | CENTER - | | | | | | LABORATORY | | + + + + + + | Creatinine | 1.46 (H) | 0.70 - 1.30 | [facility] | | | | | mg/dL | [facility] | | | | | | MEDICAL | | | | | | CENTER - | | | | | | LABORATORY | | + + + + + + | eGFR if not | 49 (L)Comment: | >=60 | [facility] | | | | GLOMERULAR FILTRATION | mL/min/1.73m2 | [facility] | | | QATARI | RATE,ESTIMATED mL/min | | MEDICAL | | | | /[id number] than 60 | | CENTER - | | | | Chronic kidney | | LABORATORY | | | | disease,if found over a | | | | | | 3-month period.Less than | | | | | | 15 Kidney | | | | | | failureFor | | | | | | Americans,multiply the | | | | | | calculated GFR by 1.21. | | | | | | | | | | + + + + + + | Calcium | 9.5 | 8.7 - 10.4 | [facility] | | | | | mg/dL | [facility] | | [facility] | | | [facility] | | | | | | CENTER - | | | | | | LABORATORY | | + + + + + + | BUN/Creatin | 11.6 | | [facility] | | | ine Ratio | | | [facility] | | | | | | MEDICAL | | | | | | CENTER - | | | | | | LABORATORY | | + + + + + + + + | Specimen | + + | Blood | + + + + + + + | Performing | Address | City/State/Zipcode | Phone Number | | Organization | | | | + + + + + | [facility] | [address] | [place] | [phone] | | [facility] | | [address] | | | - LABORATORY | | | | + + + + + XR Chest AP Portable (04/18/2019 12:38 PDT) + + | Specimen | + + | | + + + + + | Narrative | Performed At | + + + | EXAM: XR CHEST AP PORTABLE dated 04/18/2019 12:38 PM HISTORY: | [facility] | | HYPERTENSION DIZZINESS HEADACHE (ADULT - NEW ONSET OR NEW SYMPTOMS) | | | NAUSEA Comparison: 07/22/2018 TECHNIQUE: A single portable | | | view of the chest. FINDINGS: The lungs are symmetrically | | | aerated. They are clear. There are no large pleural | | | effusions. There is no pneumothorax. There is mild cardiomegaly. | | | There is prominence of the central pulmonary arteries. This | | | suggests pulmonary hypertension. No acute osseous | | | abnormalities. 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 | | | IMPRESSION - No radiographic evidence for acute disease in the | | | chest. Dictated and Signed by: Richard Anne MD | | | Electronically signed: 04/18/2019 12:46 PM | | + + + + + | Procedure Note | + + | [place], Rad Results In - 04/18/2019 1249 PDT EXAM: XR CHEST AP PORTABLE dated 04/18/2019 | | 12:38 PMHISTORY: HYPERTENSIONDIZZINESSHEADACHE (ADULT - NEW ONSET OR NEW | | SYMPTOMS)NAUSEAComparison: 07/22/2018TECHNIQUE: A single portable view of the | | chest.FINDINGS:The lungs are symmetrically aerated. They are clear. There are no | | largepleural effusions. There is no pneumothorax. There is mild cardiomegaly. There is | | prominence of the central pulmonary arteries. This suggests pulmonaryhypertension. No | | acute osseous abnormalities. Probable enchondroma in the leftproximal | | humerus.IMPRESSION -No radiographic evidence for acute disease in the chest.Dictated and | | Signed by: Richard Anne MD Electronically signed: 04/18/2019 12:46 PM | |TECHNIQUE: A single portable view of the chest. | | | |FINDINGS: | | | |The lungs are symmetrically aerated. They are clear. There are no large | |pleural effusions. There is no pneumothorax. There is mild cardiomegaly. | |There is prominence of the central pulmonary arteries. This suggests pulmonary | |hypertension. No acute osseous abnormalities. Probable enchondroma in the left | |proximal humerus. | | | |IMPRESSION - | | | |No radiographic evidence for acute disease in the chest. | | | |Dictated and Signed by: Richard Anne MD | | Electronically signed: 04/18/2019 12:46 PM | + + + +---------+ + + | Performing | Address | City/State/Zipcode | Phone Number | | Organization | | | | + +---------+ + + | [facility] | | | | + +---------+ + + Extra Lavender Top Tube (04/18/2019 12:30 PDT) + +-------+ + + + | Component | Value | Ref Range | Performed | Pathologist | | | | | At | Signature | + +-------+ + + + | Extra | Done | | [facility] | | | Lavender | | | [facility] | | | Top Tube | | | MEDICAL | | | | | | CENTER - | | | | | | LABORATORY | | + +-------+ + + + + + | Specimen | + + | Blood | + + + + + + + | Performing | Address | City/State/Zipcode | Phone Number | | Organization | | | | + + + + + | [facility] | [address] | [place], [place] | [phone] | | [facility] | | [address] | | | - LABORATORY | | | | + + + + + Extra Green Top Tube (04/18/2019 12:30 PDT) + +-------+ + + + | Component | Value | Ref Range | Performed | Pathologist | | | | | At | Signature | + +-------+ + + + | Extra Green | Done | | [facility] | | | Top Tube | | | [facility] | | | | | | MEDICAL | | | | | | CENTER - | | | | | | LABORATORY | | + +-------+ + + + + + | Specimen | + + | Blood | + + + + + + + | Performing | Address | City/State/Zipcode | Phone Number | | Organization | | | | + + + + + | [facility] | [address] | [place] | [phone] | | [facility] | | [address] | | | - LABORATORY | | | | + + + + + Extra Blue Top Tube (04/18/2019 12:30 PDT) + +-------+ + + + | Component | Value | Ref Range | Performed | Pathologist | | | | | At | Signature | + +-------+ + + + | Extra Blue | Done | | [facility] | | | Top Tube | | | [facility] | | | | | | [facility]ICAL | | | | | | CENTER - | | | | | | LABORATORY | | + +-------+ + + + + + | Specimen | + + | Blood | + + + + + + + | Performing | Address | City/State/Zipcode | Phone Number | | Organization | | | | + + + + + | [facility] | [address] | [place] | [phone] | | [facility] | | [address] | | | - LABORATORY | | | | + + + + + ECHO Complete (02/22/2019 14:44 PDT) + +--------+ [...] | | | | | | n Barnes | | | | | + +--------+ [...] | | | + +---------+ + + NM Nuclear Stress Test (Vasodilator) (02/22/2019 11:59 PDT) + +---------+ + + + | Component | Value | Ref Range | Performed | Pathologist | | | | | At | Signature | + +---------+ + + + | BASELINE | 69 | bpm | [facility] | | | HEART RATE | | | | | + +---------+ + + + | BASELINE | 200/133 | mmHg | [facility] | | | BLOOD | | | | | | PRESSURE | | | | | + +---------+ + + + | PEAK HEART | 71 | | [facility] | | | RATE | | | | | + +---------+ + + + | PEAK BLOOD | 200/133 | mmHG | [facility] | | | PRESSURE | | | | | + +---------+ + + + | Target HR | 135 | | [facility] | | + +---------+ + + + | Percent HR | 45 | | [facility] | | + +---------+ + + + | LVEF-SPECT | 55 | % | [facility] | | | NUCLEAR | | | | | | STRESS/VIAB | | | | | | ILITY | | | | | + +---------+ + + + | ST | 0.0 | mm | [facility] | | | Elevation | | | | | | (mm) | | | | | + +---------+ + + + + + | Specimen | + + | | + + + + + | Narrative | Performed At | + + + | | [facility] | | 1. Persantine EKG is negative.2. Normal Persantine sestamibi | | | myocardial perfusion imaging study. Normal left ventricular size, | | | wall thickness and motion. Preserved left ventricular systolic | | | function. LVEF by gated SPECT is 55%. | | + + + + +---------+ + + | Performing | Address | City/State/Zipcode | Phone Number | | Organization | | | | + +---------+ + + | [facility] | | | | + +---------+ + + from Last 3 Months Insurance + +--------+ +--------+ +---------+--------+ | Payer | Benefi | Subscriber | Effect | Phone | Address | Type | | | t Plan | ID | velia | | | | | | / | | Dates | | | | | | Group | | | | | | + +--------+ +--------+ +---------+--------+ | MEDICARE | MEDICA | [id number] | | [phone] | | Medica | | | RE | | 017-Pr | 5 | | re | | | PART A | | esent | | | | | | AND B | | | | | | + +--------+ +--------+ +---------+--------+ | [employer] | [employer] | [id number] | 08/03/19 | [phone] | | Medica | | MEDICAID HMO | HEALTH | | 19-Pre | 1 | | id | | | MDCD | | sent | | | | | | [place]MO [place] | | | | | | + +--------+ +--------+ +---------+--------+ + +--------+ +--------+ + + | Guarantor Name | Accoun | Relation to | Date | Phone | Billing Address | | | t Type | Patient | of | | | | | | | | | | + +--------+ +--------+ + + | Marissa Michaels | Person | Self [birth year] [address] | | Jr. | al/Fam | | 1960 | [phone] | [address] | | | [place] | | | [address] (Home) | [address] | + +--------+ +--------+ + + Advance Directives Patient has advance care planning documents, and code status on file. For more information, please contact:[facility] and [facility] [place] [address] + + + + + | Code Status | Date | Date | Comments | | | Activated | Inactivated | | + + + + + | Full Code | 08/22/2016 | 08/26/2016 | | | | 21:03 | 18:08 | | + + + + +
--- OUTSIDE RECORDS SUMMARY | ~2019-05-14 | XMS | Encounter Summary ---
Demographics + + + | Address | [address] | | | [place] [address] | + + + | Home Phone | | + + + | Preferred Language | Unknown | + + + | Marital Status | Single | + + + | Cheondoism Affiliation | BAP | + + + | Race | White | + + + | Ethnic Group | Not or | + + + Author + + + | Author | [facility] | + + + | Organization | [facility] | + + + | [...] Team Providers + +------+ + | Care Road Mixer Operator Name | Role | Phone | + +------+ + PCP | Unavailable | + +------+ + Reason for Visit + + + | Reason | Comments | + + + | Skin biopsy | cancer | + + + Encounter Details +--------+---------+ + + + | Date | Type | Department | Care Team | Description | +--------+---------+ + + + | 09/17/ | Office | Otolaryngology | Shlomo Roach MD | MALIGNANT NEOPLASM | | 2005 | Visit | Head and Neck | [address] | OF CHEEK (HCC) | | | | Surgery Services at | [facility], | (Primary Dx) | | | | PPV [address] [facility] | [place] [address] | | | | | [facility] | [phone] | | | | | Mailcode: PV01 | | | | | | [facility] | | | | | | [place], [place] | | | | | | [address] | | | | | | [phone] | | | +--------+---------+ + + + [...] + + documented as of this encounter Shlomo Douglas - 09/19/2005 12:35 PM PSTThis office note has been dictated. 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
--- OUTSIDE RECORDS SUMMARY | ~2019-05-14 | XMS | Encounter Summary ---
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 Name | Role | Phone | + +------+ + | Sylvester Scherer DO | PCP | | + +------+ + Reason for Visit + + + | Reason | Comments | + + + | Lab Draw | Checking for results | + + + Encounter Details +--------+ + + + + | Date | Type | Department | Care Team | Description | +--------+ + + + + | 01/21/ | Telephone | Transplant | Brittney Pratt | Lab Draw (Checking | | 2015 | | Coordinators [address] | MD [address]iah [address] | for results ) | | | | [address] | [place], [place] | | | | | [place], [place] | [address] | | | | | [address] | [phone] | | | | | [phone] | | | +--------+ + + + [...] | | | | | [address] [place], | | | | | | [place] [address] | | | | | | [phone] | | | | | | | | +--------+---------+ + + + documented as of this encounter Visit Diagnoses Not on filedocumented in this encounter"
--- OUTSIDE RECORDS SUMMARY | ~2019-05-14 | XMS | Encounter Summary ---
Demographics + + + | Address | [address] | | | [place] [address] | + + + | Home Phone | | + + + | Preferred Language | Unknown | + + + | Marital Status | Single | + + + | Buddhist Affiliation | BAP | + + + | Race | White | + + + | Ethnic Group | Not or | + + + Author + + + | Author | [facility] | + + + | Organization | [facility] [facility] | + + + [...] Team Providers + +------+ + | Care Percolator Operator Name | Role | Phone | + +------+ + | Sylvester Scherer DO | PCP | | + +------+ + Encounter Details +--------+ + + + + | Date | Type | Department | Care Team | Description | +--------+ + + + + | 08/07/ | Abstract | Transplant | Valente Welch | | | 2016 | | Coordinators [address] | MD Kiel,[facility] [address] | | | | [address] | [address] [place] | | | | | [address] [place], [place] | [place] [address] | | | | | [address] | [phone] | | | | | [phone] | | | +--------+ + + + [...] | | | | | [address] [place], | | | | | | [place] [address] | | | | | | [phone] | | | | | | | | +--------+---------+ + + + documented as of this encounter Procedures + +--------+ + + + | Procedure Name | Priori | Date/Time | Associated Diagnosis | Comments | | | ty | | | | + +--------+ + + + | LIVER TRANSPLANT | Routin | 08/06/2015 | | Results for this | | POST PANEL (EXT | e | 3:08 PM | | procedure are in the | | RESULTS) | | PST | | results section. | + +--------+ + + + documented in this encounter Results LIVER TRANSPLANT POST PANEL (EXT RESULTS) (08/06/2015 3:08 PM PST) + +-------+ + + + | Component | Value | Ref Range | Performed | Pathologist | | | | | At | Signature | + +-------+ + + + | SODIUM, | 137 | mmol/L | [facility] | | | [facility] | | | LAB - | | | (LAB) | | | [place] | | + +-------+ + + + | POTASSIUM, | 3.7 | mmol/L | [facility] | | | PLASMA | | | LAB - | | | (LAB) | | | [place] | | + +-------+ + + + | CHLORIDE, | 100 | mmol/L | [facility] | | | PLASMA | | | LAB - | | | (LAB) | | | [place] | | + +-------+ + + + | TOTAL CO2, | 30 | mmol/L | [facility] | | | PLASMA | | | LAB - | | | (LAB) | | | [place] | | + +-------+ + + + | GLUCOSE, | 101 | 65 - 110 mg/dL | [facility] | | | PLASMA | | | LAB - | | | (LAB) | | | [place] | | + +-------+ + + + | BUN, PLASMA | 15 | mg/dL | [facility] | | | (LAB) | | | LAB - | | | | | | [place] | | + +-------+ + + + | CREATININE | 0.90 | mg/dL | [facility] | | | PLASMA | | | LAB - | | | (LAB) | | | [place] | | + +-------+ + + + | CALCIUM, | 9.5 | mg/dL | [facility] | | | PLASMA | | | LAB - | | | (LAB) | | | [place] | | + +-------+ + + + | PHOSPHORUS, | 3.2 | mg/dL | [facility] | | | PLASMA | | | LAB - | | | (LAB) | | | [place] | | + +-------+ + + + | MAGNESIUM,P | 2.0 | mg/dL | [facility] | | | LASMA | | | LAB - | | | | | | [place] | | + +-------+ + + + | TOTAL | 7.6 | g/dL | [facility] | | | PROTEIN, | | | LAB - | | | PLASMA | | | [place] | | | (LAB) | | | | | + +-------+ + + + | ALBUMIN, | 4.6 | g/dL | [facility] | | | PLASMA | | | LAB - | | | (LAB) | | | [place] | | + +-------+ + + + | BILIRUBIN | 0.7 | Transcutaneous | [facility] | | | TOTAL | | Bilirubinometer | LAB - | | | | | | [place] | | + +-------+ + + + | BILIRUBIN | 0.3 | mg/dL | [facility] | | | DIRECT | | | LAB - | | | | | | [place] | | + +-------+ + + + | ALK PHOS | 82 | U/L | [facility] | | | | | | LAB - | | | | | | [place] | | + +-------+ + + + | AST(SGOT) | 59 | U/L | [facility] | | | | | | LAB - | | | | | | [place] | | + +-------+ + + + | ALT (SGPT) | 72 | U/L | [facility] | | | | | | LAB - | | | | | | [place] | | + +-------+ + + + | URIC ACID, | 5.1 | mg/dL | [facility] | | | PLASMA | | | LAB - | | | (LAB) | | | [place] | | + +-------+ + + + | WHITE CELL | 7.9 | K/cu mm | [facility] | | | COUNT | | | LAB - | | | | | | [place] | | + +-------+ + + + | HEMATOCRIT | 50.0 | % | [facility] | | | | | | LAB - | | | | | | [place] | | + +-------+ + + + | HEMOGLOBIN | 17.2 | 13.5 - 17.5 | [facility] | | | | | g/dL | LAB - | | | | | | [place] | | + +-------+ + + + | PLATELET | 169 | K/cu mm | [facility] | | | COUNT | | | LAB - | | | | | | [place] | | + +-------+ + + + | SIROLIMUS, | 2.1 | ng/mL | [facility] | | | WHOLE BLOOD | | | LAB - | | | | | | [place] | | + +-------+ + + + + + | Specimen | + + | Blood - Blood | + + + + + | Narrative | Performed At | + + + | | | + + + + + + + + | Performing | Address | City/State/Zipcode | Phone Number | | Organization | | | | + + + + + | [facility] - | [address] | [place] | [phone] | | [place] | | | | + + + + + documented in this encounter Visit Diagnoses Not on filedocumented in this encounter"
--- OUTSIDE RECORDS SUMMARY | ~2019-05-14 | XMS | Encounter Summary ---
Demographics + + + | Address | [address] | | | [place] [address] | + + + | Home Phone | | + + + | Preferred Language | Unknown | + + + | Marital Status | Single | + + + | Muslim Affiliation | BAP | + + + | Race | White | + + + | Ethnic Group | Not or | + + + Author + + + | Author | [facility] | + + + | Organization | [facility] | + + + | Address [...] Providers + +------+ + | Care Test Analyst Name | Role | Phone | + +------+ + PCP | Unavailable | + +------+ + Reason for Visit + + + | Reason | Comments | + + + | Consultation | Consult for large SCC on right orthodox | + + + Encounter Details +--------+---------+ + + + | Date | Type | Department | Care Team | Description | +--------+---------+ + + + | 08/15/ | Office | Surgical | Scott Delcid MD | [facility] | | 2005 | Visit | Dermatology [address] | | NEC (Primary Dx); | | | | [address] | | OTHER MALIGNA[facility] | | | | Mailcode:OP06 | | NEOPLASM OF SKIN, | | | | Outpatient Clinic | | SITE UNSPECIFIED | | | | Building, Room 4300 | | | | | | [place], [place] | | | | | | [address] | | | | | | [phone] | | | +--------+---------+ + + + [...] + + documented as of this encounter Progress Notes BhavinScott - 08/15/2005 2:59 PM PST08/15/2005 SKIN LESION CONSULTATION Chief Complaint: squamous cell carcinoma, located on the Right preauricular cheek. Referring Physician: Han Saha MD History of Present Illness: Simeon Michaels is a 45 y.o. 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 It has been present for approximately 3 months. The lesion bleeds and hurts. He had some ty pe of surgery to the area followed by radiation in [place], [place] 1 year ago. Patient has previous history of squamous cell carcinoma. Past Medical History: past medical history reviewed No past medical history on file. Review of Systems: Negative for other skin complaints and constitutional symptoms. Physical Examination: There were no vitals taken for this visit. Patient is alert and oriented. Examination of the biopsy site on the Right preauricular cheek reveals a 3 cm lesion that i s ulcerated and bound down There is no palpable lymphadenopathy. 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 This is very deep and maybe attached to the underlying bone. I had a annika singh discussion with the patient regarding this diagnosis. Plan: I asked Dr Leon Hernandez in Head and Neck oncology to see him. Dr. Hernandez would l sebastian a CT scan and will contact him next week to schedule surgery to be done in the [place] with p ossible free flap repair. Shamar Pandey Lpn - 006 1:01 PM PSTPatient here for Mohs Micrographic surgery consultation of large ulcerated S CC on right orthodox. documented in this encounter Plan of Treatment +--------+---------+ + + + | Date | Type | Specialty | Care Team | Description | +--------+---------+ + + + | 06/17/ | Office | Otolaryngology | Shlomo Roach MD | | | 2019 | Visit | | [address] | | | | | | [place], | | | | | | [place] [address] | | | | | | [phone] | | | | | | | | +--------+---------+ + + + documented as of this encounter Procedures + +--------+ + + + | Procedure Name | Priori | Date/Time | Associated Diagnosis | Comments | | | ty | | | | + +--------+ + + + | CT NECK SOFT TISSUE | Routin | 08/15/2005 | Bo Tanner Skin | Results for this | | W CONTRAST | e | 4:15 PM | Face Nec | procedure are in the | | | | PST | | results section. | + +--------+ + + + documented in this encounter Results CT NECK SOFT TISS W CONTRAST (08/15/2005 4:15 PM PST) + + + + + + | Component | Value | Ref Range | Performed | Pathologist | | | | | At | Signature | + + + + + + | CT NECK | Radiologist 1: JOSÉ MIGUEL, | | | | | SOFT TISS W | [facility] neck with | | | | | CONTRAST | contrast HISTORY: Skin | | | | | | squamous cell carcinoma | | | | | | TECHNIQUE: Helical 3mm | | | | | | images were acquired | | | | | | from the level of | | | | | | theorbits to the | | | | | | sternum. 100 cc of | | | | | | omnipaque 300 were given | | | | | | IV. COMPARISON: None | | | | | | FINDINGS:there is a | | | | | | right preauricular 1.4 x | | | | | | 3.2 cm area of abnormal | | | | | | softtissue attenuation | | | | | | consistent with history | | | | | | of squamous | | | | | | cellcarcinoma. The | | | | | | lesion extends | | | | | | essentially to the | | | | | | surface of thesquamosal | | | | | | portion of the temporal | | | | | | bone. No definite | | | | | | bonydestruction is seen. | | | | | | The inferior most | | | | | | aspect appears to | | | | | | contactthe | | | | | | postero-lateral aspect | | | | | | of the parotid gland. | | | | | | The parotid | | | | | | glandotherwise appears | | | | | | unremarkable. There is | | | | | | a 8 mm lymph node | | | | | | justsuperior to the | | | | | | parotid gland, along the | | | | | | inferior aspect of | | | | | | thelesion seen best on | | | | | | axial image 23. There | | | | | | is also somewhatrounded | | | | | | 8 mm lymph node on image | | | | | | 32 at right level II | | | | | | under | | | | | | thesternocleidomastoid | | | | | | muscle. The few | | | | | | scattered other sub cm | | | | | | ovallymph nodes are seen | | | | | | in right levels two and | | | | | | three. Visualized bony | | | | | | structures and lung | | | | | | apices show no focal | | | | | | lesions. IMPRESSION:1. | | | | | | Right preauricular | | | | | | skin lesion extends | | | | | | essentially to | | | | | | thesurface of the | | | | | | squamosal petrous bone, | | | | | | but no definite | | | | | | bonyerosion is seen. | | | | | | The lesion also abuts | | | | | | the parotid gland. A | | | | | | fewscattered sub cm | | | | | | lymph nodes are present | | | | | | as above, with | | | | | | oneimmediately inferior | | | | | | to the lesion, and one | | | | | | in right level II. | | | | + + + + + + + + | Specimen | + + | | + + + +---------+ + + | Performing | Address | City/State/Zipcode | Phone Number | | Organization | | | | + +---------+ + + | [facility] DEPARTMENT OF | | | | | RADIOLOGY | | | | + +---------+ + + CREATININE, PLASMA (08/15/2005 1:59 PM PST) + [...] Performed At | + + + | [address] Estimated GFR > 60 mL/min/1.73 sq m if non- | [facility] | | [address] Estimated GFR > 60 mL/min/1.73 sq m [...] | + + + + + | [facility] DEPARTMENT | [facility] [facility] | [place] [address] | | | PATHOLOGY | [address] | | | + + + + + | [facility] | [address] [facility] | [place] [address] | | | PATHOLOGY | [address] | | | + + + + + documented in this encounter Visit Diagnoses + + | Diagnosis | + + | Other and unspecified malignant neoplasm of skin of other and unspecified parts of | | face - Primary | + + | Other malignant neoplasm of skin, site unspecified | + + documented in this encounter"
--- OUTSIDE RECORDS SUMMARY | ~2019-05-14 | XMS | Encounter Summary ---
Demographics + + + | Address | [address] | | | [place] [address] | + + + | Home Phone | | + + + | Preferred Language | Unknown | + + + | Marital Status | Single | + + + | Jainism Affiliation | [id number] | + + + | Race | Unknown | + + + | Ethnic Group | Unknown | + + + Author + + + | Author | [facility] | | | and [place] | + + + | Organization | [facility] | | | and [place] | + + + | Address | Unknown | + + + | Phone | Unavailable | + + + Support + + + + + | Name | Relationship | Address | Phone | + + + + + | Brenda Jones | ECON | [place] | | | | | [address] | | + + + + + | Katarzyna Luke | ECON | , [place] | | + + + + + | chele townsend | ECON | Unknown | | + + + + + Care Team Providers + +------+ + | Care Hydrography Teacher Name | Role | Phone | + +------+ + | Ritesh England PA-C | [place] | | + +------+ + Encounter Details +--------+ + + + + | Date | Type | Department | Care Team | Description | +--------+ + + + + | 02/22/ | [facility] | [facility] | Nell, | | | 2019 | Encounter | MED CTR NUCLEAR | Maddie, RESISTOR TESTER [address] | | | | | MEDICINE [address] | [place], | | | | | [place], | [place] [address] | | | | | [place] [address] | [phone] | | | | | [phone] | | | +--------+ + + + [...] | Cardiology | Nell, | | | 2019 | Visit | | BELE[facility] Perkins [address] | | | | | | [place], | | | | | | [place] [address] | | | | | | [phone] | | | | | | | [...] | | + +--------+ + +------+------+ | technetium [id number] sestamibi | Given | 02/23/20 | 35 | | | | (CARDIOLITE) injection 35 | | 19 11:59 | millicur | | | | millicurie 35 millicurie, | | PDT | ies | | | | Intravenous, ONCE PRN, Other, | | | | | | | Starting 02/22/19 at 1159, For | | | | | | | 1 dose, Nuclear Medicine | | | | | | + +--------+ + +------+------+ +---+---+ | | | +---+---+ documented in this encounter"
--- OUTSIDE RECORDS SUMMARY | ~2019-05-14 | XMS | Encounter Summary ---
Demographics + + + | Address | [address] | | | [place] [address] | + + + | Home Phone | | + + + | Preferred Language | Unknown | + + + | Marital Status | Single | + + + | Jehovah'S Witness Affiliation | BAP | + + + | Race | White | + + + | Ethnic Group | Not or | + + + Author + + + | Author | [facility] [employer] [facility] | + + + | Organization | [facility] | + + + | Address [...] Team Providers + +------+ + | Care Med Care Manager Name | Role | Phone | [...] | Visit | Medicine Clinic at | MD | examination (Primary | | | | [facility] 4th Floor Day | | Dx); SCCA (squamous | | | | Stay [address] | | cell carcinoma) of | | | | [address] | | skin; History of | | | | Mailcode: [id number] | | liver transplant | | | | Peter Garciaon | | (HCC); Preop | | | | [address], [place] | | examination | | | | [address] | | | | | | [phone] | | | +--------+---------+ + + + [...] + + + | Incisi | 04/22/17; Chyna; Right; Lateral, | 04/22/17 0000 by | 03/04/18 1014 by | | on | Upper; face; 03/04/18; 1014 | Adriana Victor RN | Deedee Bennett RN | +--------+ + + + | Incisi | 04/22/17; Chyna; Right; Medial; | 04/22/17 0000 by | [...] Pressure | 187/120 | 04/21/2017 11:27 AM | | | | | PDT | | + + + + + | Pulse | 65 | 04/21/2017 11:27 AM | | | | | PDT | | + + + + + | Temperature | 36.4 C (97.6 F) | 04/21/2017 11:27 AM | | | | | PDT | | + + + + + | Respiratory Rate | 20 | 04/21/2017 11:27 AM | | | | | PDT | | + + + + + | Oxygen Saturation | 98% | 04/21/2017 11:27 AM | | | | | PDT | | + + + + + | Inhaled Oxygen | - | - | | | Concentration | | | | + + + + + | Weight | 70.1 kg (154 lb 9.6 | 04/21/2017 11:27 AM | | | | oz) | PDT | | + + + + + | Height | 171.5 cm (5' 7.5") | 04/21/2017 11:27 AM | neck 36cm | | | | PDT | | + + + + + | Body Mass Index | 23.86 | 04/21/2017 11:27 AM | | | | | PDT | | + + + + + documented in this encounter Patient Instructions Patient Instructions Galina Gutierrez MD - 04/21/2017 2:05 PM [...] preparation to help avoid surgical site infections NORAH GUIDE TO GENERAL SKIN CLEANSING AT HOME [...] or walk. Surgery check-in location: Admitting - [facility] Surgery Check in Time: The Preoperative Medicine [...] it is after office hours, call the [facility] plastic press operator at [phone] and ask them to page him or h er. documented in this encounter Progress Notes Galina Gutierrez MD - 04/21/2017 2:05 PM PDTFormatting of this note might be different fr om the original. PREOPERATIVE CONSULT NOTE Author: Galina [...] pt on immune suppression, being followed at [facility]. 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 Pt reports no symptoms since that time. He is not on diuretics. His functional capacity is good. He was unable to follow up with his cardiology appoitnemnt because his medical trans portation failed to show. HTN -- poorly controlled. Pt reports having taking his medication today. He just arriv ed (medical transport) from [place], [place]. His medications were verified because he brought all his bottles. He's taken metoprolol ER 100 mg and amlodipine 7.5 mg. Chronic severe facial pain -- pt used to be on oxycodone, but not longer. He has an liz t with the Pain Clinic at [facility] at the end of April. Perioperative cardiac [...] Laterality Date Liver transplant 2011 At the [facility] Skin cancer excision 2003 Family history [...] pt has no funds to stay in town for surgery tomorrow. I'm trying to determine if social organization professor available to find him a housing voucher so that he salcedo s not have to go back to [facility] in AM for surgery. Chronic facial pain -- pt has appt for the pain clinic towards the end of Apr. It woul d be useful to have the APS see him while he's in the hospital after the surgery, shagufta nick how difficult it is for him to get transportation from [facility] Thank you for the opportunity to contribute to this patient's care. Galina Gutierrez MD [facility] AT [facility] 4TH FLOOR DAY STAY [address] [place] [facility] [place] [address] I spent time (50 minutes, >50% [...] blood sample obtained from Right antecubital site Electro nically signed by Oswald Durbin MA at 04/21/2017 6:35 PM PDTdocumented in this encounter Plan of Treatment +--------+---------+ + + + | Date | Type | Specialty | Care Team | Description | +--------+---------+ + + + | 06/17/ | Office | Otolaryngology | Shlomo Roach MD | | | 2019 | Visit | | [address] | | | | | | [facility], | | | | | | [place] [address] | | | | | | [phone] | | | | | | | | +--------+---------+ + + + + + +--------+ + + | Name | Type | Priori | Associated Diagnoses | Order Schedule | | | | ty | | | + + +--------+ + + | COMMUNICATION TO [facility] | Procedures | Routin | Preoperative | Ordered: 04/21/2017 | | LAB DRAW | | e | examination | | + + +--------+ + + documented as of this encounter Procedures + +--------+ + + + | Procedure Name | Priori | Date/Time | Associated Diagnosis | Comments | | | ty | | | | + +--------+ + + + | IA COLLECTION VENOUS | Routin | 04/21/2017 | Preoperative | | | BLOOD,VENIPUNCTURE | e | 11:52 AM | examination | | | | | PDT | | | + +--------+ + + + | 12 LEAD ECG | Routin | 04/21/2017 | Preoperative | Results for this | | | e | 11:35 AM | examination Preop | procedure are in the | | | | PDT | examination | results section. | + +--------+ + + + | CBC (HEMOGRAM) ONLY | Routin | 04/21/2017 | Preoperative | Results for this | | | e | 11:31 AM | examination | procedure are in the | | | | PDT | | results section. | + +--------+ + + + | CONFIRMATORY ABO/RH | Routin | 04/21/2017 | Preoperative | Results for this | | | e | 11:31 AM | examination | procedure are in the | | | | PDT | | results section. | + +--------+ + + + | COMPLETE METABOLIC | Routin | 04/21/2017 | Preoperative | Results for this | | SET | e | 11:31 AM | examination | procedure are in the | | (NA,K,CL,CO2,BUN,CRE | | PDT | | results section. | | AT,GLUC,CA,AST,ALT,B | | | | | | YAYO TOTAL,ALK | | | | | | PHOS,ALB,PROT TOTAL) | | | | | + +--------+ + + + | CBC ONLY | Routin | 04/21/2017 | Preoperative | Results for this | | | e | 11:31 AM | examination | procedure are in the | | | | PDT | | results section. | + +--------+ + + + | ANTIBODY SCREEN | Routin | 04/21/2017 | Preoperative | Results for this | | | e | 11:31 AM | examination | procedure are in the | | | | PDT | | results section. | + +--------+ + + + | TYPE AND SCREEN | Routin | 04/21/2017 | Preoperative | Results for this | | | e | 11:31 AM | examination | procedure are in the | | | | PDT | | results section. | + +--------+ + + + | ABO & RH TYPE | Routin | 04/21/2017 | Preoperative | Results for this | | | e | 11:31 AM | examination | procedure are in the | | | | PDT | | results section. | + +--------+ + + + | HEMOGLOBIN A1C, | Routin | 04/21/2017 | Preoperative | Results for this | | BLOOD | e | 11:31 AM | examination | procedure are in the | | | | PDT | | results section. | + +--------+ + + + documented in this encounter Results 12 LEAD ECG (04/21/2017 11:35 AM PDT) + + + + + + | Component | Value | Ref Range | Performed | Pathologist | | | | | At | Signature | + + + + + + | VENTRICULAR | 52 | bpm | [facility] | | | RATE | | | OF | | | | | | CARDIOLOGY | | + + + + + + | ATRIAL RATE | 52 | ms | [facility] | | | | | | OF | | | | | | CARDIOLOGY | | + + + + + + | P-R | 140 | ms | [facility] | | | INTERVAL | | | OF | | | | | | CARDIOLOGY | | + + + + + + | P AXIS | 23 | deg | [facility] | | | | | | OF | | | | | | CARDIOLOGY | | + + + + + + | QRS | 104 | ms | [facility] | | | DURATION | | | OF | | | | | | CARDIOLOGY | | + + + + + + | QT | 503 | ms | [facility] | | | | | | OF | | | | | | CARDIOLOGY | | + + + + + + | QTCB | 468 | ms | [facility] | | | | | | OF | | | | | | CARDIOLOGY | | + + + + + + | R AXIS | -22 | deg | [facility] | | | | | | OF | | | | | | CARDIOLOGY | | + + + + + + | T AXIS | 20 | deg | [facility] | | | | | | OF | | | | | | CARDIOLOGY | | + + + + + + | ECG | Sinus bradycardia | | [facility] | | | IMPRESSION | | | OF | | | | | | CARDIOLOGY | | + + + + + + | ECG | Left ventricular | | [facility] | | | IMPRESSION | hypertrophy- ABNORMAL | | OF | | | | ECG - | | CARDIOLOGY | | + + + + + + | ECG | Electronically signed | | [facility] | | | IMPRESSION | by: MARISSA GRAF | | OF | | | | 04-21-2017 12:09:15 | | CARDIOLOGY | | + + + + + [...] | + + + + + | [facility] OF | [address] | [place], [place] | | | CARDIOLOGY | [address] | [address] | | + + + + + CONFIRMATORY ABO/RH (04/21/2017 11:31 AM PDT) + + + + + + | Component | Value | Ref Range | Performed | Pathologist | | | | | At | Signature | + + + + + + | ABO Group | O | | [facility] | | | | | | LABORATORY | | | | | | SERVICES, | | | | | | TRANSFUSION | | | | | | MEDICINE | | + + + + + + | Rh Type | Positive | | [facility] | | | | | | LABORATORY | | | | | | SERVICES, | | | | | | TRANSFUSION | | | | | | MEDICINE | | + + + + + + + + | Specimen | + + | Blood - Blood | | (substance) | + + + + + + + | Performing | Address | City/State/Zipcode | Phone Number | | Organization | | | | + + + + + | [facility] | [address] | [place] [address] | | | SERVICES, | [address] | | | | TRANSFUSION MEDICINE | | | | + + + + + CBC (HEMOGRAM) ONLY (04/21/2017 11:31 AM PDT) + +---------+ + + + | Component | Value | Ref Range | Performed | Pathologist | | | | | At | Signature | + +---------+ + + + | WHITE CELL | 5.71 | 3.50 - 10.80 | [facility] | | | COUNT | | K/cu mm | LABORATORY | | | | | | SERVICES, | | | | | | CORE | | + +---------+ + + + | RED CELL | 5.03 | 4.50 - 6.00 | [facility] | | | COUNT | | M/cu mm | LABORATORY | | | | | | SERVICES, | | | | | | CORE | | + +---------+ + + + | HEMOGLOBIN | 15.2 | 13.5 - 17.5 | [facility] | | | | | g/dL | LABORATORY | | | | | | SERVICES, | | | | | | CORE | | + +---------+ + + + | HEMATOCRIT | 44.4 | 41.0 - 53.0 % | [facility] | | | | | | LABORATORY | | | | | | SERVICES, | | | | | | CORE | | + +---------+ + + + | MCV | 88.3 | 80.0 - 96.0 fL | [facility] | | | | | | LABORATORY | | | | | | SERVICES, | | | | | | CORE | | + +---------+ + + + | MCHC | 34.2 | 33.0 - 35.5 | [facility] | | | | | g/dL | LABORATORY | | | | | | SERVICES, | | | | | | CORE | | + +---------+ + + + | RDW SD | 42.4 | 35.1 - 46.3 fL | [facility] | | | | | | LABORATORY | | | | | | SERVICES, | | | | | | CORE | | + +---------+ + + + | PLATELET | 187 | 150 - 400 K/cu | [facility] | | | COUNT | | mm | LABORATORY | | | | | | SERVICES, | | | | | | CORE | | + +---------+ + + + | MPV | 9.1 (L) | 9.7 - 12.3 fL | [facility] | | | | | | LABORATORY | | | | | | SERVICES, | | | | | | CORE | | + +---------+ + + + | NRBC% | 0.0 | 0.0 - 0.3 % | [facility] | | | | | | LABORATORY | | | | | | SERVICES, | | | | | | CORE | | + +---------+ + + + | NRBC# | 0.00 | 0.00 - 0.02 | [facility] | | | | | K/cu mm | LABORATORY | | | | | | SERVICES, | | | | | | CORE | | + +---------+ + + + + + | Specimen | + + | Blood - Blood | | (substance) | + + + + + + + | Performing | Address | City/State/Zipcode | Phone Number | | Organization | | | | + + + + + | [facility] | [address] | [place] [address] | | | SERVICES, CORE | [address] | | | + + + + + ANTIBODY SCREEN (04/21/2017 11:31 AM PDT) + + + + + + | Component | Value | Ref Range | Performed | Pathologist | | | | | At | Signature | + + + + + + | Antibody | Negative | | [facility] | | | Screen | | | LABORATORY | | | | | | SERVICES, | | | | | | TRANSFUSION | | | | | | MEDICINE | | + + + + + + + + | Specimen | + + | Blood - Blood | | (substance) | + + + + + + + | Performing | Address | City/State/Zipcode | Phone Number | | Organization | | | | + + + + + | [facility] | [address] | [place] [address] | | | SERVICES, | [address] | | | | TRANSFUSION MEDICINE | | | | + + + + + ABO & RH TYPE (04/21/2017 11:31 AM PDT) + + + + + + | Component | Value | Ref Range | Performed | Pathologist | | | | | At | Signature | + + + + + + | ABO Group | O | | [facility] | | | | | | LABORATORY | | | | | | SERVICES, | | | | | | TRANSFUSION | | | | | | MEDICINE | | + + + + + + | Rh Type | Positive | | [facility] | | | | | | LABORATORY | | | | | | SERVICES, | | | | | | TRANSFUSION | | | | | | MEDICINE | | + + + + + + + + | Specimen | + + | Blood - Blood | | (substance) | + + + + + + + | Performing | Address | City/State/Zipcode | Phone Number | | Organization | | | | + + + + + | [facility] | [address] | [place] [address] | | | SERVICES, | [address] | | | | TRANSFUSION MEDICINE | | | | + + + + + HEMOGLOBIN A1C, BLOOD (04/21/2017 11:31 AM PDT) + + + + + + | Component | Value | Ref Range | Performed | Pathologist | | | | | At | Signature | + + + + + + | HEMOGLOBIN | 5.5Comment: Hgb A1C | <5.7 % | [facility] | | | A1C | Interpretive | | LABORATORY | | | | Information: | | SERVICES, | | | | <5.7% - Normal | | SPECIAL IMM | | | | 5.7-6.4% - Consistent | | + COAG | | | | with pre-diabetes | | | | | | >6.4% - Consistent | | | | | | with diabetes | | | | | | | | | | + + + + + + + + | Specimen | + + | Blood - Blood | | (substance) | + + + + + | Narrative | Performed At | + + + | Alternate forms of testing such as fructosamine should be | [facility] | | considered for monitoring [facility] glycemic control in patients with: | LABORATORY | | Increased red cell turnover, certain hemoglobinopathies (e.g., HbS, | SERVICES, | | HbE, HbC and thalassemia syndromes), anemias, blood loss, chronic | SPECIAL IMM + | | liver disease and hemochromatosis (artefactually low HbA1c); iron | [facility] | | deficiency anemia (artefactually high HbA1c due to enhanced glycation | | | of hemoglobin). | | + + + + + + + + | Performing | Address | City/State/Zipcode | Phone Number | | Organization | | | | + + + + + | [facility] | [address] | [place] [address] | | | SERVICES, SPECIAL | [address] | | | | IMM + COAG | | | | + + + + + COMPLETE METABOLIC SET (NA,K,CL,CO2,BUN,CREAT,GLUC,CA,AST,ALT,BILI TOTAL,ALK PHOS,ALB,PROT TOTAL) (04/21/2017 11:31 AM PDT) + + + + + + | Component | Value | Ref Range | Performed | Pathologist | | | | | At | Signature | + + + + + + | GLUCOSE, | 102 (H) | 70 - 99 mg/dL | [facility] | | | PLASMA | | | LABORATORY | | | (LAB) | | | SERVICES, | | | | | | CORE | | + + + + + + | BUN, PLASMA | 12 | 6 - 20 mg/dL | [facility] | | | (LAB) | | | LABORATORY | | | | | | SERVICES, | | | | | | CORE | | + + + + + + | CREATININE | 1.34 (H) | 0.70 - 1.30 | [facility] | | | PLASMA | | mg/dL | LABORATORY | | | (LAB) | | | SERVICES, | | | | | | CORE | | + + + + + + | EGFR | >60 | >60 mL/min | [facility] | | | - | | | LABORATORY | | | SWAZI | | | SERVICES, | | | | | | CORE | | + + + + + + | EGFR NON | 55 (L) | >60 mL/min | [facility] | | | -JAE | | | LABORATORY | | | RICAN | | | SERVICES, | | | | | | CORE | | + + + + + + | SODIUM, | 137 | 136 - 145 | [facility] | | | PLASMA | | mmol/L | LABORATORY | | | (LAB) | | | SERVICES, | | | | | | CORE | | + + + + + + | POTASSIUM, | 4.7 | 3.4 - 5.0 | [facility] | | | PLASMA | | mmol/L | LABORATORY | | | (LAB) | | | SERVICES, | | | | | | CORE | | + + + + + + | CHLORIDE, | 103 | 97 - 108 mmol/L | [facility] | | | PLASMA | | | LABORATORY | | | (LAB) | | | SERVICES, | | | | | | CORE | | + + + + + + | TOTAL CO2, | 27 | 21 - 32 mmol/L | [facility] | | | PLASMA | | | LABORATORY | | | (LAB) | | | SERVICES, | | | | | | CORE | | + + + + + + | CALCIUM, | 9.1 | 8.6 - 10.2 | [facility] | | | PLASMA | | mg/dL | LABORATORY | | | (LAB) | | | SERVICES, | | | | | | CORE | | + + + + + + | CALCIUM(ALB | 9.4 | 8.6 - 10.2 | [facility] | | | CORRECTED) | | mg/dL | LABORATORY | | | | | | SERVICES, | | | | | | CORE | | + + + + + + | BILIRUBIN | 0.6 | 0.3 - 1.2 mg/dL | [facility] | | | TOTAL | | | LABORATORY | | | | | | SERVICES, | | | | | | CORE | | + + + + + + | TOTAL | 7.6 | 6.4 - 8.2 g/dL | [facility] | | | PROTEIN, | | | LABORATORY | | | PLASMA | | | SERVICES, | | | (LAB) | | | CORE | | + + + + + + | ALBUMIN, | 3.6 | 3.5 - 4.7 g/dL | [facility] | | | PLASMA | | | LABORATORY | | | (LAB) | | | SERVICES, | | | | | | CORE | | + + + + + + | ALK PHOS | 115 | 53 - 128 U/L | [facility] | | | | | | LABORATORY | | | | | | SERVICES, | | | | | | CORE | | + + + + + + | AST(SGOT) | 70 (H) | <=41 U/L | [facility] | | | | | | LABORATORY | | | | | | SERVICES, | | | | | | CORE | | + + + + + + | ALT (SGPT) | 79 (H) | <=60 U/L | [facility] | | | | | | LABORATORY | | | | | | SERVICES, | | | | | | CORE | | + + + + + + | ANION GAP | 7 | mmol/L | [facility] | | | | | | LABORATORY | | | | | | SERVICES, | | | | | | CORE | | + + + + + + | ANION | 8 | 4 - 11 mmol/L | [facility] | | | GAP(ALB | | | LABORATORY | | | CORRECTED) | | | SERVICES, | | | | | | CORE | | + + + + + + | POTASSIUM | No Hemo | | [facility] | | | CMNT | | | LABORATORY | | | | | | SERVICES, | | | | | | CORE | | + + + + + + | BILI T CMNT | No Hemo | | [facility] | | | | | | LABORATORY | | | | | | SERVICES, | | | | | | CORE | | + + + + + + | AST CMNT | No Hemo | | [facility] | | | | | | LABORATORY | | | | | | SERVICES, | | | | | | CORE | | + + + + + + + + | Specimen | + + | Blood - Blood | | (substance) | + + + + + | Narrative | Performed At | + + + | Adult glucose reference range change effective 7-12-17. GFR is | [facility] | | estimated using the MDRD equation recommended by the National Kidney | LABORATORY | | Disease Education Program. Estimated GFR Interpretive Information: | SERVICES, CORE | | <60 mL/min/1.73 sq m Chronic Kidney Disease | | | <15 mL/min/1.73 sq m Kidney Failure Estimated | | | GFR greater that 60 mL/min/1.73 sq m is of limited clinical value. | | | The MDRD equation is not valid in the following situations: - | | | Patients under 18 years of age - Severe malnutrition or obesity - | | | Vegetarian diet - Rapidly changing kidney function | | + + + + + + + + | Performing | Address | City/State/Zipcode | Phone Number | | Organization | | | | + + + + + | [facility] | [address] | [place] [address] | | | SERVICES, CORE | [address] | | | + + + + + documented in this encounter Visit Diagnoses + + | Diagnosis | + + | Preoperative examination - Primary Preoperative examination, unspecified | + + | SCCA (squamous cell carcinoma) of skin | + + | History of liver transplant (HCC) Liver replaced by transplant | + + | Preop examination Preoperative examination, unspecified | + + documented in this encounter
--- OUTSIDE RECORDS SUMMARY | ~2019-05-14 | XMS | Encounter Summary ---
Demographics + + + | Address | [address] | | | [place] [address] | + + + | Home Phone | | + + + | Preferred Language | Unknown | + + + | Marital Status | Single | + + + | Jain Affiliation | BAP | + + + | Race | White | + + + | Ethnic Group | Not or | + + + Author + + + | Author | [facility] [employer] [facility] | + + + | Organization | [facility] [employer] [facility] | + + + | [...] Providers + +------+ + | Care Commercial Attache Name | Role | Phone | + +------+ + | Ritesh England PA-C | PCP | | + +------+ + Encounter Details +--------+ + + + + | Date | Type | Department | Care Team | Description | +--------+ + + + + | 09/09/ | Procedure | 6A Intra Op [facility] | | | | 2019 | Pass | [facility] | | | | | | Admitting Desk | | | | | | Located on the 9th | | | | | | floor [address] | | | | | | [address] | | | | | | [place], [place] | | | | | | [address] | | | +--------+ + + + [...] | | 2019 | Visit | | [address] | | | | | | [place], | | | | | | [place] [address] | | | | | | [phone] | | | | | | | | +--------+---------+ + + + documented as of this encounter Visit Diagnoses Not on filedocumented in this encounter"
--- OUTSIDE RECORDS SUMMARY | ~2019-05-14 | XMS | Encounter Summary ---
Demographics + + + | Address | [address] | | | [place] [address] | + + + | Home Phone | | + + + | Preferred Language | Unknown | + + + | Marital Status | Single | + + + | Nondenominational Affiliation | BAP | + + + | Race | White | + + + | Ethnic Group | Not or | + + + Author + + + | Author | [facility] [employer] [facility] | + + + | Organization | [facility] [facility] | + + + | [...] Team Providers + +------+ + | Care Billboard Erector Name | Role | Phone | + +------+ + | Ritesh England PA-C | PCP | | + +------+ + Encounter Details +--------+ + + + + | Date | Type | Department | Care Team | Description | +--------+ + + + + | 09/11/ | Pharmacy | Specialty Pharmacy | | | | 2019 | Visit | Services [address] | | [address] | | | | | | [place], [place] | | | | | | [address] | | | | | | [phone] | | | +--------+ + + + [...] | | | | | [address] [place], | | | | | | [place] [address] | | | | | | [phone] | | | | | | | | +--------+---------+ + + + documented as of this encounter Visit Diagnoses Not on filedocumented in this encounter"
--- OUTSIDE RECORDS SUMMARY | ~2019-05-14 | XMS | Encounter Summary ---
Demographics + + + | Address | [address] | | | [place] [address] | + + + | Home Phone | | + + + | Preferred Language | Unknown | + + + | Marital Status | Single | + + + | Rastafarian Affiliation | BAP | + + + | Race | White | + + + | Ethnic Group | Not or | + + + Author + + + | Author | [facility] [email or web address] [facility] | + + + | Organization | [facility] [employer] [facility] | + + + | Address [...] Team Providers + +------+ + | Care School Business Manager Name | Role | Phone | + +------+ + | Ritesh England PA-C | PCP | | + +------+ + Encounter Details +--------+ + + + + | Date | Type | Department | Care Team | Description | +--------+ + + + + | 08/06/ | Telephone | Otolaryngology | Shlomo Roach MD | | | 2019 | | Head and Neck | [address] | | | | | Surgery Services at | [address] [place], | | | | | PPV [address] [facility] | [place] [address] | | | | | [address] | [phone] | | | | | Mailcode: PV01 | | | | | | Physician's [address] | | | | | | [place], [place] | | | | | | [address] | | | | | | [phone] | | | +--------+ + + + [...] | | | | | [address] [place] | | | | | | [place] [address] | | | | | | [phone] | | | | | | | | +--------+---------+ + + + documented as of this encounter Visit Diagnoses Not on filedocumented in this encounter"
--- OUTSIDE RECORDS SUMMARY | ~2019-05-14 | XMS | Encounter Summary ---
Demographics + + + | Address | [address] | | | [place] [address] | + + + | Home Phone [...] + + | Author | [facility] [employer] [facility] | + + + | Organization | [facility] [employer] [facility] | + + + | Address | [...] Team Providers + +------+ + | Care Air Battle Manager Name | Role | Phone | [...] Description | +--------+--------+ + + + | 07/16/ | Refill | Transplant | Dayron Donato MD | Refill Request | | 2017 | | [phone] | [address] | | | | | [address] [place] | [address] [place], | | | | | [address] [place], [place] | [place] [address] | | | | | [address] | [phone] | | | | | [phone] | | | +--------+--------+ + + + [...] | | | | | [address] [place], | | | | | | [place] [address] | | | | | | [phone] | | | | | | | | +--------+---------+ + + + documented as of this encounter Visit Diagnoses Not on filedocumented in this encounter"
--- OUTSIDE RECORDS SUMMARY | ~2019-05-14 | XMS | Encounter Summary ---
Demographics + + + | Address | [address] | | | [place] [address] | + + + | Home Phone | | + + + | Preferred Language | Unknown | + + + | Marital Status | Single | + + + | Tenriism Affiliation | BAP | + + + | Race | White | + + + | Ethnic Group | Not or | + + + Author + + + | Author | [facility] | + + + | Organization | [facility] | + + + | Address | Unknown | + + + | Phone | Unavailable | + + + Support + + +---------+ + | Name | Relationship | Address | Phone | + + +---------+ + | Shruthi Merino | ECON | Unknown | | + + +---------+ + | Haven Whitekarinajazmin | ECON | Unknown | | + + +---------+ + Care Team Providers + +------+ + | Care Antique Furniture Repairer Name | Role | Phone | + +------+ + | Ritesh England PA-C | PCP | | + +------+ + Reason for Visit + + + | Reason | Comments | + + + | Liver Transplant | renal cyst | | Follow Up | | + + + Encounter Details +--------+ + + + + | Date | Type | Department | Care Team | Description | +--------+ + + + + | 01/01/ | Telephone | Transplant | Yvette Perkins RN | Liver Transplant | | 2018 | | Coordinators [address] | Follow Up (renal | | | | [address] [place] | [facility], | cyst) | | | | [place], [place] | [place] [address] | | | | | [address] | | | | | | [phone] | | | +--------+ + + + [...] | | | | | [address] [place], | | | | | | [place] [address] | | | | | | [phone] | | | | | | | | +--------+---------+ + + + documented as of this encounter Visit Diagnoses Not on filedocumented in this encounter"
--- OUTSIDE RECORDS SUMMARY | ~2019-05-14 | XMS | Encounter Summary ---
Demographics + + + | Address | [address] | | | [place] [address] | + + + | Home Phone | | + + + | Preferred Language | Unknown | + + + | Marital Status | Single | + + + | Jew Affiliation | BAP | + + + | Race | White | + + + | Ethnic Group | Not or | + + + Author + + + | Author | [facility] | + + + | Organization | [facility] | + + + [...] Team Providers + +------+ + | Care Coding Support Specialist Name | Role | Phone | + +------+ + | Ritesh England PA-C | PCP | | + +------+ + Reason for Visit + + + | Reason | Comments | + + + | Follow-up visit | | + + + AUTH/CERT +--------+--------+ + + + + | Status | Reason | Specialty | Diagnoses / | Referred By | Referred To | | | | | Procedures | Contact | Contact | +--------+--------+ + + + + | | | Emergency | | | Emergency | | | | Medicine | | | Dept Hrc | | | | | | | [address] | | | | | | | [place] | | | | | | | [facility] | | | | | | | Hospital | | | | | | | [place], [place] | | | | | | | [address] | | | | | | | Phone: | | | | | | | [phone] | +--------+--------+ + + + + Encounter Details +--------+---------+ + + + | Date | Type | Department | Care Team | Description | +--------+---------+ + + + | 09/07/ | Office | Liver Transplant | Dayron Donato MD | Liver replaced by | | 2018 | Visit | at [facility] 2nd Floor | [address] | transplant (HCC) | | | | [address] [facility] | [address] [place], | (Primary Dx); | | | | [place], | [place] [address] | Immunosuppression | | | | [place] [address] | [phone] | (HCC); Chronic | | | | [phone] | | hepatitis C without | | | | | | hepatic coma (HCC); | | | | | | Ear mass, right; | | | | | | Hypertensive | | | | | | urgency; Facial | | | | | | lesion; History of | | | | | | melanoma; Renal cyst | +--------+---------+ + + + Social History [...] + + + | Blood Pressure | 197/118 | 09/07/2018 10:13 AM | | | | | PST | | + + + + + | Pulse | 75 | 09/07/2018 10:13 AM | | | | | PST | | + + + + + | Temperature | 36.6 C (97.9 F) | 09/07/2018 10:13 AM | | | | | PST | | + + + + + | Respiratory Rate | - | - | | + + + + + | Oxygen Saturation | 98% | 09/07/2018 10:13 AM | | | | | PST | | + + + + + | Inhaled Oxygen | - | - | | | Concentration | | | | + + + + + | Weight | 74.3 kg (163 lb 14.4 | 09/07/2018 10:13 AM | | | | oz) | PST | | + + + + + | Height | - | - | | + + + + + | Body Mass Index | 24.92 | 03/03/2018 9:00 AM | | | | | PDT | | + + + + + documented in this encounter Functional Status + + + [...] documented as of this encounter Progress Notes Dayron Donato MD - 09/07/2018 10:00 AM PST TRANSPLANT HEPATOLOGY RETURN PATIENT VISIT Ritesh England PA-C [facility] [address] [place] [address]: [phone] RE: Simeon Michaels Jr. : [address] England : I had the pleasure of seeing Simeon Michaels Jr. in follow up in the Liver Transplant C linic at [facility] today. He was previously seen by Dr. Welch and this is his first visit wit [facility]. Pertinent laboratory, imaging, pathology results were reviewed. HISTORY OF PRESENT ILLNESS/INTERVAL HISTORY: Mr. 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 Since last visit, has had multiple new developments. --Jun/Jul- Had near syncope- was diagnosed with afib- started on amlodipine and metop. Not seen cards. He has taken one of them today --BP today 197/118 repeat similar. No cp but does endorse sob and some vision changes. Stat es at home they have been much higher --Also off of sirolimus for past 4-5 days. The last level was on the lower side but he had missed the day prior dose. 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 Has seen ENT and plan is for surgery today. States pain has been worsening in th at area --Kidney cyst- seen by local urologist and told it was benign. --R femur fx- hospitalized 01/13-01/18 --HCV treatment- had tried but it had been difficult reaching Mr. Michaels and he had been hav ing difficulty with follow ups/compliance but now states he is invested in his health and wi ll follow through with recs ROS: Besides those mentioned in hpi, denies any fevers, syncope, bleeding, jaundice, ascites, le g edema, GI bleeding, chest pain, anxiety, dysuria, oral lesions, abd pain, diarrhea. Beside s face/ear lesions also endorsing lesion on chest, arms and scalp. Rest of the ROS neg. Past Medical/Surgical History/Post-Transplant Dx Transplant Problem List: (Based on detailed review of medical records and endoscopy reports /images, and supplemented by patient history. Liver imaging studies were independently revie wed with an attending radiologist) 1. 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 2. Liver transplantation performed 09/09/11 at [facility]. 2.1. Immunosuppression: sirolimus 3 mg daily (trough goal ~6) and CellCept 500 BID 2.2. Complications: No known complications such as biliary anastomoses, thrombo sis, or rejection 2.3. Biopsies: 2.3.1. Explant: G2S4 HCV cirrhosis, >95% necrotic 5.0 cm moderately differentiated HCC with microvascular invasion. 2.3.2. Biopsy 09/2013: G1S1 HCV with mild steatosis 2.4. CT 09/2013: wedge-shaped perfusion abnormality in right lobe, no masses 2.5. Prophylaxis: CMV D+/R- 3. Secondary Diagnoses: 3.1. Hypertension 3.2. Malignant melanoma of face/right ear, resected in 2004, reconstructed in 2 014 3.3. Chronic abdominal and facial pain on oxycodone 10 QID 3.4. Pre-diabetes 3.5. SCC 3.6. CHF 4. Preventive care 4.1. Immunizations: Have not discussed HAV, HBV, influenza, Pneumovax 4.2. Osteoporosis: unclear if had recent DEXA 4.3. Colon cancer screening: Discussed today 5. Psychosocial: Quit tobacco at age 54, previously 2 ppd, now smoking again and also vapes . Quit alcohol in 10/2009 and denies any use since then. No MJ. Moved from [place] to [facility], [place] in 11/2014 [place]. REVIEW OF SYSTEMS: Besides those mentioned in hpi, no increasing abd girth/leg edema, new neuro sxs. Has fatigue and GI sxs as noted above. No cp but some dizziness/sob. MEDICATIONS: Current Outpatient Prescriptions: acetaminophen 325 mg oral tablet, Take 1-2 t ablets by mouth every four hours as needed., Disp: , Rfl: albuterol 90 mcg/actuation inhalation HFA aerosol inhaler, Inhale 1-2 puffs by mouth every six hours as needed. Indications: Bronchospastic Pulmonary Disease, Disp: , Rfl: calcium carbonate chewable 200 mg elemental (500 mg total salt) oral tablet,chewable, Chew and swallow 1 tablet every two hours as needed., Disp: 30 tablet, Rfl: 0 calcium-vitamin D 500 mg(1,250mg) -200 unit oral tablet, Take 1 tablet by mouth two times d aily., Disp: 60 tablet, Rfl: 0 furosemide 20 mg oral tablet, Take 1/2 tablet by mouth three times a week, Disp: 15 tablet, Rfl: 0 magnesium citrate oral solution, Take 296 mL by mouth once daily as needed (second for cons tipation)., Disp: 296 mL, Rfl: 0 multivitamin-minerals oral tablet, Take 1 tablet by mouth once daily., Disp: 30 tablet, Rfl : 0 mycophenolate (CELLCEPT) 250 mg oral capsule, Take 2 capsules by mouth two times daily. Masood e with food. Indications: Prevention of Liver Transplant Rejection, Disp: 120 capsule, Rfl: 3 pantoprazole 20 mg oral tablet,delayed release (DR/EC), Take 20 mg by mouth once daily in t he morning., Disp: , Rfl: polyethylene glycol 17 gram oral powder in packet, Mix 1 packet and take orally two times d aily., Disp: 60 packet, Rfl: 0 sirolimus 1 mg oral tablet, Take 3 tablets by mouth once daily in the morning. Indications: s/p liver transplant, Disp: 270 tablet, Rfl: 3 Amlodipine metomprolol PHYSICAL EXAMINATION: Last Vitals: BP 197/118 | Pulse 75 | Temp (Src) 36.6 C (97.9 F) (Oral) | Wt 74.3 kg (16 3 lb 14.4 oz) | SpO2 98% | BMI 24.92 kg/(m^2) Appearance: thin man, alert and in no acute distress. HEENT: Anicteric sclerae. Multiple plaques/lesion on face and larger R ear mass Neck: supple, nontender, no JVD. Lungs: clear to auscultation and percussion. Heart: RRR Abdomen: soft, nontender, without obvious ascites, reducible ventral hernia. Normal bowel s ounds. Well healed scars. Extremities: No edema Skin: numerous skin lesions arms, face Neurological exam nonfocal, no asterixis, alert and oriented without encephalopathy. LABS: Recent Labs 08/24/18 1044 CR 1.61 AST 55 ALT 56 TBILI 0.6 ALB 4.0 WBC 7.0 HCT 42.1 PLT 183 Lab Results Component Value Date TBILI 0.6 08/24/2018 AP 121 08/24/2018 TP 7.9 08/24/2018 DIRBILI 0.10 08/24/2018 ALB 4.0 08/24/2018 AST 55 08/24/2018 ALT 56 08/24/2018 Lab Results Lab Test Name Results Date/Time WBC 4.47 11/17/17 WBC 7.9 08/06/15 RBC 4.74 11/17/17 RBC 3.30 09/24/05 HCT 40.9 11/17/17 HCT 50.0 08/06/15 MCV 86.3 11/17/17 MCV 94.5 09/24/05 MCHC 34.7 11/17/17 MCHC 35.5 09/24/05 RDW 42.6 11/17/17 RDW 12.6 09/24/05 PLT 167 11/17/17 PLT 169 08/06/15 [facility] 8.7 11/17/17 Note: All available outside records have been reviewed in the course of this visit, and skyler ecially pertinent ones noted above: SIGNIFICANT IMAGING: CT abd/pelvis: IMPRESSION: Status post liver transplant without suspicious lesions. Bosniak 2 left interpolar renal cyst. ASSESSMENT/PLAN: Mr. 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 Post transplant course c/b SCC and recurrent HCV. He is presenting today f or follow up. # Hypertensive urgency: Sent to ED for eval and management. BP today 197/118 repeat similar . No cp but does endorse sob and some ?vision changes. States at home they have been much hi gher. # Large R ear lesion/multiple other lesions on face: History of malignant melanoma of face /right ear, resected in 2004 and reconstructed in 2013- States about a month ago started dev eloped R ear mass that has been enlarging. Has seen ENT and plan is for surgery today but st ates that surgery had been postponed before due to HTN. Patient today also with sig HTN (russel es in [facility] and per pt report even higher at home) so being send to ED for further eval/management- if admitted- with control of HTN- ENT can consider inpt eval. Pages ENT, un able to speak directly so sent text page that pt is being sent to ED. # S/p OLT 2011 for HCV/etoh cirrhosis c/b HCC. No recent decomp. On sirolimus and MMF. Elidia vitale state has been out of sirolimus for 4-5 days. Last trough on the lower side but not accu rate as pt has missed the day prior dose. Restart sirolimus and ctn MMF. Recheck sirolimus t rough before the 4th dose and further changes to be determined pending results. 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 Recommend cardiolog y referral. #Kidney cyst- seen by local urologist and confirmed it was benign. Obtain local urology rep ort. # HCV treatment- had tried but it had been difficult reaching Mr. Michaels and he had been hav ing difficulty with follow ups/compliance but now states he is invested in his health and wi ll follow through with recs. Consider treatment once above acute issues resolved. Thank you for allowing me to participate in the care of this patient. Please feel free to contact me with any questions regarding the patient's care. Warmest regards. Sincerely, Dayron Donato MD Older Adult Social Work Specialisthairspring studder [facility] Department of GI/Hepatology documented in this enc ounter Plan of Treatment +--------+---------+ + + + | Date | Type | Specialty | Care Team | Description | +--------+---------+ + + + | 06/17/ | Office | Otolaryngology | Shlomo Roach MD | | | 2019 | Visit | | [address] | | | | | | [place], | | | | | | [place] [address] | | | | | | [phone] | | | | | | | | +--------+---------+ + + + + +------+--------+ + + | Name | Type | Priori | Associated Diagnoses | Order Schedule | | | | ty | | | + +------+--------+ + + | HEPATITIS C | Lab | Routin | Liver replaced by | Expected: 09/07/2018 | | QUANTITATIVE, PLASMA | | e | transplant (HCC) | (Approximate), | | | | | | Expires: 10/06/2019 | + +------+--------+ + + | HEPATITIS C | Lab | Routin | Liver replaced by | Expected: 09/07/2018 | | GENOTYPING, PLASMA | | e | transplant (HCC) | (Approximate), | | | | | | Expires: 10/06/2019 | + +------+--------+ + + documented as of this encounter Visit Diagnoses + + | Diagnosis | + + | Liver replaced by transplant (HCC) - Primary Liver replaced by transplant | + + | Immunosuppression (HCC) Unspecified disorder of immune mechanism | + + | Chronic hepatitis C without hepatic coma (HCC) | + + | Ear mass, right | + + | Hypertensive urgency Unspecified essential hypertension | + + | Facial lesion Unspecified disorder of skin and subcutaneous tissue | + + | History of melanoma Personal history of malignant melanoma of skin | + + | Renal cyst Unspecified congenital cystic kidney disease | + + documented in this encounter"
--- OUTSIDE RECORDS SUMMARY | ~2019-05-14 | XMS | Encounter Summary ---
Demographics + + + | Address | [address] | | | [place] [address] | + + + | Home Phone [...] + + | Author | [facility] | + + + | Organization | [facility] | + + + [...] Team Providers + +------+ + | Care Cloth Laminating Supervisor Name | Role | Phone | + +------+ + | Ritesh England PA-C | PCP | | + +------+ + Encounter Details +--------+ + + + + | Date | Type | Department | Care Team | Description | +--------+ + + + + | 09/08/ | Procedure | Diagnostic Imaging | | | | 2019 | Pass | Services at [facility] | | | | | | [address] | | | | | | [place] Mailcode: | | | | | | [address] [facility] | | | | | | [place], [place] | | | | | | [address] | | | | | | [phone] | | | +--------+ + + + [...] | | | | | [address] [place], | | | | | | [place] [address] | | | | | | [phone] | | | | | | | | +--------+---------+ + + + documented as of this encounter Visit Diagnoses Not on filedocumented in this encounter"
--- OUTSIDE RECORDS SUMMARY | ~2019-05-14 | XMS | Encounter Summary ---
Demographics + + + | Address | [address] | | | [place] [address] | + + + | Home Phone | | + + + | Preferred Language | Unknown | + + + | Marital Status | Single | + + + | Orthodoxy Affiliation | BAP | + + + | Race | White | + + + | Ethnic Group | Not or | + + + Author + + + | Author | [facility] | + + + | Organization | [facility] | + + + | [...] Team Providers + +------+ + | Care Clean In Places Operator Name | Role | Phone | + +------+ + PCP | Unavailable | + +------+ + Reason for Visit + + + | Reason | Comments | + + + | Postoperative visit | 1 mo pop | + + + Benefits Check (Routine) +--------+--------+ + + + + | Status | Reason | Specialty | Diagnoses / | Referred By | Referred To | | | | | Procedures | Contact | Contact | +--------+--------+ + + + + | Closed | | Otolaryngolog | | Scott Delcid, | David | | | | y | | [address] | [address] | | | | | | [address] | [address] | | | | | | [place], [place] | [facility] | | | | | | [address] | [address] [place], | | | | | | | [place] | | | | | | | [address] | | | | | | | Phone: | | | | | | | [phone] | | | | | | | Fax: | | | | | | | [phone] | +--------+--------+ + + + + Encounter Details +--------+---------+ + + + | Date | Type | Department | Care Team | Description | +--------+---------+ + + + | 10/13/ | Office | Otolaryngology | Leon Hernandez, | MALIGNANT NEOPLASM | | 2006 | Visit | Head and Neck | MD [address] | OF CHEEK (HCC) | | | | Surgery Services at | [facility] [address] | (Primary Dx) | | | | [facility] [address] | [place], [place] | | | | | [facility] [address] | [address] | | | | | Mailcode: PV01 | [phone] | | | | | Physician's [address]isha | | | | | | [place], [place] | | | | | | [address] | | | | | | [phone] | | | +--------+---------+ + + + [...] + documented as of this encounter Progress Leon Preciado - 10/13/2005 1:16 PM PSTFormatting of this note might be different from khai jacobo. Simeon Michaels is a 45 y.o. male He is doing well except that he complains of some right shoulder pain. Patient Active Problem List: MALIGNANT NEOPLASM OF CHEEK[195.0-1] Date Noted: 09/17/2005 Past Medical History: MALIGNANT NEOPLASM OF CHEEK 09/17/2005 No past surgical history on file. No Known Allergies. Current outpatient prescriptions: VICODIN 5 MG-500 MG TAB 1-2 po q4 hrs prn pain Disp: 40 R fl: 0, , , Social History Marital Status: Single Spouse Name: N/A Years of Education: N/A Number of Children: N/A Occupational History None on file Social History Main Topics Tobacco Use: Not on file Alcohol Use: Not on file Drug Use: Not on file Sexually Active: Not on file Other Topics Concern Social History Narrative None on file His ECOG performance status is: 0 Review of systems: See patient's filled out questionnaire. Except as noted he denies any complaints referable to the cardiac, hepatic, pulmonary, neurologic, musculoskeletal, renal or digestive systems except as noted above. Physical Examination: wound well healed, face/neck/abdomen. Flap viable Path: Final Pathologic Diagnosis: A: Right ear, temporal bone and parotid, composite resection: - Invasive squamous cell carcinoma, moderately differentiated, with ulceration (3.2 cm in maximum dimension) - Tumor is 0.3 cm from nearest margin (deep margin at superior aspect) - Extensive perineural invasion - No vascular invasion identified - Two lymph nodes, negative for malignancy (0/2) - TNM stage: pT2c pN0 MX - Skin with extensive solar elastosis - Parotid gland with no diagnostic abnormality B: Lymph nodes, right neck level 2-A, dissection: - Three lymph nodes, negative for malignancy (0/3) C: Lymph nodes, right neck level 1-B, dissection: - Three lymph nodes, negative for malignancy (0/3) - Minor salivary gland, negative for malignancy D: Lymph nodes, right neck level 2-B, dissection: - Fifteen lymph nodes, negative for malignancy (0/15) E: Lymph nodes, right neck level 3, dissection: - Nineteen lymph nodes, negative for malignancy (0/19) Case reviewed by: Francesca Bennett M.D. /Resident Conor Fowler M.D., Ph.D. /Pathologist /f Impression: Doing well. RTC 1 mos. Leon Hernandez MD [facility] Otolaryngology, Head & Neck Surgery documented in this encoun ter Plan of Treatment +--------+---------+ + + + | Date | Type | Specialty | Care Team | Description | +--------+---------+ + + + | 06/17/ | Office | Otolaryngology | Shlomo Roach MD | | | 2019 | Visit | | [address] | | | | | | [place], | | | | | | [place] [address] | | | | | | [phone] | | | | | | | | +--------+---------+ + + + documented as of this encounter Visit Diagnoses + + | Diagnosis | + + | 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
--- OUTSIDE RECORDS SUMMARY | ~2019-05-14 | XMS | Encounter Summary ---
Demographics + + + | Address | [address] | | | [place] [address] | + + + | Home Phone | | + + + | Preferred Language | Unknown | + + + | Marital Status | Single | + + + | Baptist Affiliation | BAP | + + + | Race | White | + + + | Ethnic Group | Not or | + + + Author + + + | Organization | Unknown | + + + | Address | [...] Team Providers + +------+ + | Care Publications Editor Name | Role | Phone | + +------+ + PCP | Unavailable | + +------+ + Encounter Details +--------+ + + + + | Date | Type | Department | Care Team | Description | +--------+ + + + + | 09/24/ | Procedure - | | Record, Operation | Operative Report | | 2005 | | | | | | | Transcribed | | | | +--------+ + + [...] | | | | | [place], | | | | | | [place] [address] | | | | | | [phone] | | | | | | | | +--------+---------+ + + + documented as of this encounter Procedures + +--------+ + + + | Procedure Name | Priori | Date/Time | Associated Diagnosis | Comments | | | ty | | | | + +--------+ + + + | OPERATION RECORD | | 09/24/2005 | | Results for this | | | | | | procedure are in the | | | | | | results section. | + +--------+ + + + documented in this encounter Results OPERATION RECORD (09/24/2005) + + | Transcriptions | + + | Interface, Asbestos Coverer In - 10/21/2005 2:09 AM PST | | [id number] | | [id number] CHITRA ANN | | | | Date: 09/24/2005 | | | | Attending Surgeon: Shlomo Roach MD, FACS, FRCS (C) | | | | Green Building Materials Designer(s): Rose Greenfield M.D. | | Fredo Portillo M.D. | | | | Preoperative Diagnosis(es): | | Right facial nerve paralysis. | | | | Postoperative Diagnosis(es): | | Right facial nerve paralysis. | | | | Procedures Performed: | | 1. Right upper lid gold weight placement (1.2 g). | | 2. Right lateral canthopexy/tarsal strip. | | | | | | Anesthesia: | | General endotracheal. | | | | Estimated Blood Loss: | | Minimal. | | | | Complications: | | None. | | | | Specimens: | | | | Indications: | | Mr. 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 This was reconstructed with a rectus abdominus free flap. | | Subsequently, the patient was noted to have a right facial nerve paralysis | | with resultant inability to completely close his right eye and eye | | protection procedure was indicated. | | | | Findings: | | A 1.2 g gold weight was positioned over the upper tarsal plate and secured | | with 2 sutures. Lateral canthopexy was performed by securing the lateral | | edge of the inferior tarsal strip to the upper lateral orbital periosteum. | | | | | | Procedure: | | The patient was brought to the operating room and placed supine on the | | operating table. After general anesthesia was established, the right face | | was prepped and draped in the standard surgical fashion. A skin incision | | was made at a natural skin crease in the upper lid. Sharp dissection was | | carried down to the level of the upper tarsal plate elevating a soft tissue | | flap off the plate. A 1.2 g gold weight was positioned over the tarsal | | plate and two 5-0 clear nylon sutures were used to secure the gold weight | | to the plate. The plate was noted to be centered over the pupil. The | | subcutaneous tissue was closed with interrupted 5-0 fast-absorbing gut | | suture. The skin was closed with a running locking 5-0 fast-absorbing gut | | suture. Attention was turned to performance of the tarsal strip portion of | | the operation. The lids were retracted laterally and the lateral palpebral | | fissure was divided sharply accessing the lateral canthal ligament. The | | lateral canthal ligament was similarly divided sharply by positioning | | scissors lateral to the globe and dividing the lateral canthus between the | | globe and the lateral orbit. The tarsal strip was identified and skin and | | subcutaneous tissues were elevated off the lateral aspect of the tarsal | | strip after division of the lateral portion of the jackson line. The mucosa | | was then elevated off the tarsal strip sharply using a combination of | | scissors and scalpel. This released the tarsal strip for lateral | | canthopexy. A 5-0 clear nylon suture was used to secure the tarsal strip | | laterally up to the periosteum of the supralateral orbital rim. The | | position of the inferior lid was excellent at the completion of the | | procedure. The skin was then closed with a running locking 5-0 | | fast-absorbing gut suture. The skin was dried and eye drops and bacitracin | | were applied. Sponge, needle, and instrument counts were correct at the | | completion of the procedure. | | | | Dr. Shlomo Roach was present through the entirety of the operation. | | | | | | | | | | Rose Greenfield M.D. | | | | | | | | Shlomo Roach MD, FACS, FRCS (C) | | | | MES / HS | | [id number] / [id number] / [id number] / | | | | | | | | | | | | Electronically signed by Shlomo Roach 10-20-2005 12:50:28 PM | + + documented in this encounter Visit Diagnoses Not on filedocumented in this encounter"
--- OUTSIDE RECORDS SUMMARY | ~2019-05-14 | XMS | Encounter Summary ---
Demographics + + + | Address | [address] | | | [place] [address] | + + + | Home Phone [...] + + | Author | [facility] | + + + | Organization | [facility] | + + [...] Team Providers + +------+ + | Care Fixing Machine Operator Name | Role | Phone | + +------+ + | Ritesh England PA-C | PCP | | + +------+ + Reason for Referral Office Visit - E/M Services (Routine) + + + + + + + | Status | Reason | Specialty | Diagnoses / | Referred By | Referred To | | | | | Procedures | Contact | Contact | + + + + + + + | Authorized | Specialty | Dermatology | Diagnoses | [place], | Drm [facility] 5 | | | Services | | History of | Rashid Patel MD | [address] | | | Required | | liver | [address] | | | | | transplant | [address] | Mailcode: | | | | | ([facility]) | [place], [place] | [facility] | | | | | History of | [address] | for Health | | | | | skin cancer | Phone: | and Healing, | | | | | | [phone] | Building 1, | | | | | Immunosuppre | Fax: | 5th Floor | | | | | ssion ([facility]) | [phone] | [place], [place] | | | | | Procedures | | [address] | | | | | DERMATOLOGY | | Phone: | | | | | INTERNAL | | [phone] | | | | | REFERRAL | | Fax: | | | | | eval & tx | | [phone] | + + + + + + + Encounter Details +--------+ + + + + | Date | Type | Department | Care Team | Description | +--------+ + + + + | 04/29/ | Telephone | Dermatology | Ministerio Narvaez, | | | 2019 | | Medical at [facility] 5th | [address] | | | | | Floor [address] | [address] | | | | | Josey Mailcode: CH16D | [place], [place] | | | | | [facility] | [address] | | | | | and Nena, | [phone] | | | | | [facility] 1, 5th | | | | | | Floor [place], [place] | | | | | | [address] | | | | | | [phone] | | | +--------+ + + + [...] physical, mental, or emotional | No | 04/26/2019 | | condition, do you have serious difficulty | | | | doing errands alone such as visiting the | | | | doctor? | | | + + + + + + + + | Cognitive Status | Response | Date of Assessment | + + + + | Because of a physical, mental, or emotional | No | 04/26/2019 | | condition, do you have serious [...] | | | | | [place], | | | | | | [place] [address] | | | | | | [phone] | | | | | | | | +--------+---------+ + + + documented as of this encounter Visit Diagnoses + + | Diagnosis | + + | History of skin cancer - Primary Personal history of other malignant neoplasm of skin | + + | History of liver transplant (HCC) Liver replaced by transplant | + + | Immunosuppression (HCC) Unspecified disorder of immune mechanism | + + documented in this encounter"
--- OUTSIDE RECORDS SUMMARY | ~2019-05-14 | XMS | Encounter Summary ---
Demographics + + + | Address | [address] | | | [place] [address] | + + + | Home Phone | | + + + | Preferred Language | Unknown | + + + | Marital Status | Single | + + + | Spiritism Affiliation | BAP | + + + | Race | White | + + + | Ethnic Group | Not or | + + + Author + + + | Author | [facility] | + + + | Organization | [facility] | + + + [...] Team Providers + +------+ + | Care Census Taker Name | Role | Phone | + +------+ + | Ritesh England PA-C | PCP | | + +------+ + Encounter Details +--------+ + + + + | Date | Type | Department | Care Team | Description | +--------+ + + + + | 09/07/ | Pharmacy | [facility] | | | | 2019 | Visit | [address] [facility] | | | | | | [facility] [address] | | | | | | [place] [address] | | | | | | [phone] | | | +--------+ + + + [...] | | 2019 | Visit | | [address] | | | | | | [place], | | | | | | [place] [address] | | | | | | [phone] | | | | | | | | +--------+---------+ + + + documented as of this encounter Visit Diagnoses Not on filedocumented in this encounter"
--- OUTSIDE RECORDS SUMMARY | ~2019-05-14 | XMS | Encounter Summary ---
Demographics + + + | Address | [address] | | | [place] [address] | + + + | Home Phone [...] Author + + + | Author | [facility] | + + + | Organization | [facility] | [...] Team Providers + +------+ + | Care Mobile Equipment Servicer Name | Role | Phone | + +------+ + | Ritesh England PA-C | PCP | | + +------+ + Reason for Visit Benefits Check (Routine) + +--------+ + + + + | Status | Reason | Specialty | Diagnoses / | Referred By | Referred To | | | | | Procedures | Contact | Contact | + +--------+ + + + + | Authorized | | Otolaryngolog | Diagnoses | [place], | Wax, Shlomo, | | | | y | Malignant | DO Sylvester | [address] | | | | | neoplasm of | [facility] [address] | | | | | head, face | Hospital | [address] | | | | | and neck | Internal | [place], [place] | | | | | Procedures | Medicin | [address] | | | | | [place] | [address] | Phone: | | | | | OFFICE/OUTPT | Jere Estevez | [phone] | | | | | | [place], | Fax: | | | | | VISIT,[place] | [place] [address] | [phone] | | | | | ISHAAN III | Phone: | | | | | | | [phone] | | | | | | | Fax: | | | | | | | [phone] | | + +--------+ + + + + Encounter Details +--------+---------+ + + + | Date | Type | Department | Care Team | Description | +--------+---------+ + + + | 04/25/ | Office | Otolaryngology | Ministerio Goss | Parotitis (Primary | | 2019 | Visit | Head and Neck | TINO Patel [address] | Dx) | | | | Surgery Services at | [facility] [address] | | | | | [facility] [address] | [place], [place] | | | | | Mauricio Mailcode: | [address] | | | | | [facility] | [phone] | | | | | and Healing, | | | | | | Building [address] | | | | | | [place], [place] | | | | | | [address] | | | | | | [phone] | | | +--------+---------+ + + + [...] + + + | Blood Pressure | 197/100 | 04/25/2019 12:44 PM | | | | | PDT | | + + + + + | Pulse | 71 | 04/25/2019 12:44 PM | | | | | PDT [...] + + + + | Weight | 69.4 kg (153 lb) | 04/25/2019 12:44 PM | | | | | PDT | | + + + + + | Height | - | - | | + + + + + | Body Mass Index | 23.26 | 09/10/2018 4:00 AM | | | | | PST [...] documented as of this encounter Progress Notes Ministerio Goss PA-C - 04/25/2019 1:30 PM PDTFormatting of this note might be differe nt from the original. Head and Neck Surgery Postoperative Follow Up Date of Surgery: 09/09/18 He has had multiple SCC skin cancers removed with Dr. Roach. Subjective: Mr. Michaels returns to clinic today after being seen in the ED in [place] on 04/18/19 and then again at [facility] ED in [place] on 04/20/19. He was diagnosed with pa rotitis at [facility] and started on Augmentin for 10 days. He has noticed improvement bu t swelling, pain, and purulent discharge for the left parotid gland continue. Allergies Allergen Reactions Morphine Nausea Current Outpatient Medications: acetaminophen 325 mg oral tablet, Take 1-2 tablets by mouth every four hours as needed., Disp: , Rfl: albuterol 90 mcg/actuation inhalation HFA aerosol inhaler, Inhale 1-2 puffs by mouth every six hours as needed. Indications: Bronchospastic Pulmonary Disease, Disp: , Rfl: amLODIPine 5 mg oral tablet, Take 5 mg by mouth two times daily., Disp: , Rfl: calcium carbonate chewable 200 mg elemental (500 mg total salt) oral tablet,chewable, Chew and swallow 1 tablet every two hours as needed., Disp: 30 tablet, Rfl: 0 calcium-vitamin D 500 mg(1,250mg) -200 unit oral tablet, Take 1 tablet by mouth two times d aily., Disp: 60 tablet, Rfl: 0 ibuprofen 600 mg oral tablet, Take 1 tablet by mouth every six hours as needed., Disp: , Rf l: magnesium citrate oral solution, Take 296 mL by mouth once daily as needed (second for cons tipation)., Disp: 296 mL, Rfl: 0 metoprolol succinate 100 mg oral tablet extended release 24 hr, two times daily., Disp: , R fl: 5 multivitamin-minerals oral tablet, Take 1 tablet by mouth once daily., Disp: 30 tablet, Rfl : 0 mycophenolate (CELLCEPT) 250 mg oral capsule, Take 2 capsules by mouth two times daily. Masood e with food. Indications: Prevention of Liver Transplant Rejection, Disp: 360 capsule, Rfl: 3 oxyCODONE (immediate release) 5 mg oral tablet, Take 1-2 tablets by mouth every four hours as needed for severe pain., Disp: 30 tablet, Rfl: 0 polyethylene glycol 17 gram oral powder in packet, Mix 1 packet and take orally two times d aily., Disp: 60 packet, Rfl: 0 senna-docusate 8.6-50 mg oral tablet, Take 1 tablet by mouth twice daily as needed for cons tipation., Disp: , Rfl: sirolimus 1 mg oral tablet, Take 3 tablets by mouth once daily in the morning. Z94.4 Indica tions: s/p liver transplant, Disp: 270 tablet, Rfl: 3 Physical Examination: healthy appearing male Voice: Normal he is breathing comfortably he is alert and oriented. his affect is normal. he is conversational and appropriate. Last Vitals: BP (!) 197/100 | Pulse 71 | Wt 69.4 kg (153 lb) | BMI 23.26 kg/m | BSA 1 .82 m Face: multiple lesions and discoloration from skin cancer resections. Right side facial ner ve paresis. Eyes: Normal extraocular motions bilaterally. Vision grossly intact. Ears: right pinna surgically resected previously with fluctuant swelling at the right angle of the mandible that is non-tender to palpation. Left normal pinnae. Hearing grossly intact on the left side. Nose: External nose - Normal Nasal cavity - No masses, purulence, polyps Oral cavity: Purulent discharge expressed from the left Cassandra's duct with pressure on the left parotid gland. Dentition - poor repair Tongue mobility - normal Palate mobility - normal Mucosa - No mucosal lesions noted on hard palate, upper or lower alveolous, buccal mucosa, floor of mouth, lips or tongue. Parotid glands: mild swelling of left parotid gland. Neck: multiple skin lesions and discolorations. Assessment and Plan: Patient will be admitted to the hospital for IV antibiotics and evalua tion. Ministerio Goss PA-C documented in this encounte r Plan of Treatment +--------+---------+ + + + | Date | Type | Specialty | Care Team | Description | +--------+---------+ + + + | 06/17/ | Office | Otolaryngology | Shlomo Roach MD | | | 2018 | Visit | | [address] | | | | | | [facility], | | | | | | [place] [address] | | | | | | [phone] | | | | | | | | +--------+---------+ + + + documented as of this encounter Visit Diagnoses + + | Diagnosis | + + | Parotitis - Primary Sialoadenitis | + + documented in this encounter"
--- OUTSIDE RECORDS SUMMARY | ~2019-05-14 | XMS | Encounter Summary ---
Demographics + + + | Address | [address] | | | [place] [address] | + + + | Home Phone [...] + + + | Author | [facility] | + + + | Organization | [facility] | + + + | Address | Unknown | + + + | Phone | Unavailable | + + + Support + + +---------+ + | Name | Relationship | Address | Phone | + + +---------+ + | Shruthi Merino | ECON | Unknown | | + + +---------+ + | Haventasha Whitekarinajazmin | ECON | Unknown | | + + +---------+ + Care Team Providers + +------+ + | Care Recruitment Director Name | Role | Phone | + +------+ + | Ritesh England PA-C | PCP | | + +------+ + Reason for Visit + + + | Reason | Comments | + + + | Social Work Notes | | + + + Encounter Details +--------+ + + + + | Date | Type | Department | Care Team | Description | +--------+ + + + + | 02/23/ | Telephone | SOCIAL WORK | Racheal Miguel | Social Work Notes | | 2018 | | AMBULATORY [address] | | | | | [address] | [place], | | | | | Mailcode: [place] | [place] [address] | | | | | [place], [place] | | | | | | [address] | | | | | | [phone] | | | +--------+ + + + + Social History + + + +--------+------+ | Tobacco Use | Types | Packs/Day | Years | Date | | | | | Used | | + + + +--------+------+ | Current Every Day | Cigarettes | 0.2 | 25 | | | Smoker | [...] | | | | | [place], | | | | | | [place] [address] | | | | | | [phone] | | | | | | | | +--------+---------+ + + + documented as of this encounter Visit Diagnoses Not on filedocumented in this encounter"
--- OUTSIDE RECORDS SUMMARY | ~2019-05-14 | XMS | Encounter Summary ---
Demographics + + + | Address | [address] | | | [place] [address] | + + + | Home Phone [...] + + | Author | [facility] | + + + | Organization | [facility] | + + + [...] Team Providers + +------+ + | Care Material Assistant Name | Role | Phone | + +------+ + | Ritesh England PA-C | PCP | | + +------+ + Reason for Visit + + + | Reason | Comments | + + + | Liver Transplant | pain management | | Follow Up | | + + + Encounter Details +--------+ + + + + | Date | Type | Department | Care Team | Description | +--------+ + + + + | 02/05/ | Telephone | Transplant | Yvette Perkins RN | Liver Transplant | | 2018 | | Coordinators [address] | Follow Up (pain | | | | [address] | [address] [place], | management) | | | | [place], [place] | [place] [address] | | | | | [address] | | | | | | [phone] | | | +--------+ + + + [...] | | | | | [place], | | | | | | [place] [address] | | | | | | [phone] | | | | | | | | +--------+---------+ + + + documented as of this encounter Visit Diagnoses Not on filedocumented in this encounter"
--- OUTSIDE RECORDS SUMMARY | ~2019-05-14 | XMS | Encounter Summary ---
Demographics + + + | Address | [address] | | | [place] [address] | + + + | Home Phone [...] + + | Author | [facility] | + + + | Organization | [facility] | + + + | Address [...] Team Providers + +------+ + | Care Maintenance Mechanic Engine Name | Role | Phone | + +------+ + | Ritesh England PA-C | PCP | | + +------+ + Encounter Details +--------+ + + + + | Date | Type | Department | Care Team | Description | +--------+ + + + + | 03/04/ | Procedure | 6A Intra Op [facility] | | | | 2018 | Pass | [facility] | | | | | | Admitting Desk | | | | | | Located on the 9th | | | | | | floor [address] [facility] | | | | | | [address] | | | | | | [place], [place] | | | | | | [address] | | | +--------+ + + + [...] | | 2019 | Visit | | [address] | | | | | | [place], | | | | | | [place] [address] | | | | | | [phone] | | | | | | | | +--------+---------+ + + + documented as of this encounter Visit Diagnoses Not on filedocumented in this encounter"
--- OUTSIDE RECORDS SUMMARY | ~2019-05-14 | XMS | Encounter Summary ---
Demographics + + + | Address | [address] | | | [place] [address] | + + + | Home Phone | | + + + | Preferred Language | Unknown | + + + | Marital Status | Single | + + + | Scientologist Affiliation | BAP | + + + | Race | White | + + + | Ethnic Group | Not or | + + + Author + + + | Author | [facility] | + + + | Organization | [facility] | + + + [...] Team Providers + +------+ + | Care Automation Qa Tester Name | Role | Phone | + +------+ + | No Pcp Per Patient | PCP | Unavailable | + +------+ + Reason for Visit + + + | Reason | Comments | + + + | Visual field testing | | + + + Encounter Details +--------+ + + + + | Date | Type | Department | Care Team | Description | +--------+ + + + + | 02/06/ | Procedure | [facility] | | Visual field testing | | 2005 | | [place] [facility] | | | | | | [facility] at [facility] | | | | | | [address] | | | | | | [place] | | | | | | Mailcode: ROSE[address] | | | | | | [place], [place] | | | | | | [address] | | | | | | [phone] | | | +--------+ + + + [...] documented as of this encounter Progress Notes Tina Batista - 02/17/2006 3:18 PM PDT Addended by: TINA BATISTA on: 6 3:18:14 PM Modules accepted: Orders, Level of Service, SmartSet Brenda Skinner - 02/06/2006 3:46 PM Sayra Michaels was seen in the [facility] [place] [facility] Depart ment today, 02/06/2006, for hvf 30-2 ou documented in this encou nter Plan of Treatment +--------+---------+ + + + | Date | Type | Specialty | Care Team | Description | +--------+---------+ + + + | 06/17/ | Office | Otolaryngology | Shlomo Roach MD | | | 2019 | Visit | | [address] | | | | | | [place], | | | | | | [place] [address] | | | | | | [phone] | | | | | | | | +--------+---------+ + + + + + +--------+ + + | Name | Type | Priori | Associated Diagnoses | Order Schedule | | | | ty | | | + + +--------+ + + | [facility] | Procedures | Routin | Unspecified Visual | Ordered: 02/17/2006 | | EXAM,EXTENDED | | e | Loss | | + + +--------+ + + documented as of this encounter Visit Diagnoses + + | Diagnosis | + + | Unspecified visual loss - Primary | + + documented in this encounter"
--- OUTSIDE RECORDS SUMMARY | ~2019-05-14 | XMS | Encounter Summary ---
Demographics + + + | Address | [address] | | | [place] [address] | + + + | Home Phone | | + + + | Preferred Language | Unknown | + + + | Marital Status | Single | + + + | Episcopal Affiliation | BAP | + + + | Race | White | + + + | Ethnic Group | Not or | + + + Author + + + | Author | [facility] | + + + | Organization | [facility] | + + + [...] Team Providers + +------+ + | Care Telemarketing Representative Name | Role | Phone | + +------+ + | Ritesh England PA-C | PCP | | + +------+ + Encounter Details +--------+ + + + + | Date | Type | Department | Care Team | Description | +--------+ + + + + | 11/17/ | Certified Personal Trainer | Transplant | Yvette Perkins RN | Liver replaced by | | 2017 | | Coordinators [address] | transplant (HCC) | | | | [address] | [address] [place], | (Primary Dx) | | | | [place], [place] | [place] [address] | | | | | [address] | | | | | | [phone] | | | +--------+ + + + [...] | | | | | [address] [place], | | | | | | [place] [address] | | | | | | [phone] | | | | | | | | +--------+---------+ + + + documented as of this encounter Results INR (11/17/2017 9:47 AM PDT) + +-------+ + + + | Component | Value | Ref Range | Performed | Pathologist | | | | | At | Signature | + +-------+ + + + | INR | 1.01 | 0.90 - 1.20 INR | [facility] | | | | | | LABORATORY | | | | | | SERVICES, | | | | | | CORE | | + +-------+ + + + + + | Specimen | + + | Blood - Blood | | (substance) | + + + + + | Narrative | Performed At | + + + | INR Therapeutic ranges for full anticoagulation: INR for | [facility] | | Venous Thromboembolism (2.0 - 3.0) INR INR for | LABORATORY | | most patients with mech. valves (2.5 - 3.5) INR | [facility] | + + + + + + + + | Performing | Address | City/State/Zipcode | Phone Number | | Organization | | | | + + + + + | [facility] | [address] | [place] [address] | | | [place] | [address] | | | + + + + + documented in this encounter Visit Diagnoses + + | Diagnosis | + + | Liver replaced by transplant (HCC) - Primary Liver replaced by transplant | + + documented in this encounter"
--- OUTSIDE RECORDS SUMMARY | ~2019-05-14 | XMS | Encounter Summary ---
Demographics + + + | Address | [address] | | | [place] [address] | + + + | Home Phone | | + + + | Preferred Language | Unknown | + + + | Marital Status | Single | + + + | Mosque Affiliation | BAP | + + + | Race | White | + + + | Ethnic Group | Not or | + + + Author + + + | Author | [facility] | + + + | Organization | [facility] | + + + | [...] Team Providers + +------+ + | Care Proof Technician Name | Role | Phone | + +------+ + | Ritesh England PA-C | PCP | | + +------+ + Reason for Visit + + + | Reason | Comments | + + + | Follow-up visit | | + + + Office Visit - E/M Services (Routine) +--------+--------+ + + + + | Status | Reason | Specialty | Diagnoses / | Referred By | Referred To | | | | | Procedures | Contact | Contact | +--------+--------+ + + + + | Closed | | Liver | Diagnoses | Tomás, | [facility] Trans | | | | Transplant | Liver | Ritesh | Velia Liver | | | | | transplant | PA-Christina [address] | [address] | | | | | status | Ishan Smith | [facility] | | | | | Procedures | [place] | [place], | | | | | [place] | [place] | [place] | | | | | OFFICE/OUTPT | [address] | [address] | | | | | | Phone: | Phone: | | | | | VISIT,BRIAN AGUIAR | [phone] | [phone] | | | | | VL IV | Fax: | Fax: | | | | | | [phone] | [phone] | +--------+--------+ + + + + Encounter Details +--------+---------+ + + + | Date | Type | Department | Care Team | Description | +--------+---------+ + + + | 11/17/ | Office | Liver Transplant | Dayron Donato MD | Status post liver | | 2018 | Visit | at [facility] [address] [address] | [address] | transplant (HCC) | | | | [address] | [address] [place], | (Primary Dx); | | | | [address] [place], | [place] [address] | Diarrhea, | | | | [place] [address] | [phone] | unspecified type; | | | | [phone] | | Immunosuppression | | | | | | (HCC); SCC (squamous | | | | | | cell carcinoma); | | | | | | Left lower quadrant | | | | | | pain; Left renal | | | | | | mass; Immunization | | | | | | counseling | +--------+---------+ + + + Social History [...] + + + | Blood Pressure | 214/120 | 11/17/2017 11:47 AM | | | | | PDT | | + + + + + | Pulse | 75 | 11/17/2017 11:47 AM | | | | | PDT | | + + + + + | Temperature | - | - | | + + + + + | Respiratory Rate | - | - | | + + + + + | Oxygen Saturation | 99% | 11/17/2017 11:47 AM | | | | | PDT | | + + + + + | Inhaled Oxygen | - | - | | | Concentration | | | | + + + + + | Weight | 61.7 kg (136 lb) | 11/17/2017 11:47 AM | | | | | PDT | | + + + + + | Height | - | - | | + + + + + | Body Mass Index | 21.3 | 04/22/2017 6:16 PM | | | | | PDT | | + + + + + documented in this encounter Progress Notes Dayron Donato MD - 11/17/2017 11:20 AM PDT TRANSPLANT HEPATOLOGY RETURN PATIENT VISIT 11/17/2017 Ritesh England PA-C [facility] [address] [address]: [phone] RE: Simeon Seb Brando Vanegas : [address] England : I had the pleasure of seeing Simeon Michaels Jr. in follow up in the Liver Transplant [facility] today. He was previously seen by Dr. Welch and this is his first visit wit [facility]. Pertinent laboratory, imaging, pathology results were reviewed. HISTORY OF PRESENT ILLNESS/INTERVAL HISTORY: Mr. 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 States about two months ago developed nausea/bilious emesis and diarrhea with L sided abdom inal pain. Went to the ED but ended up checking out AMA per pt due to difficulty with IV/shira t etc. Symptoms are improved- thought he may had the stomach flu. No GI bleeding. Bowel move ment still altered- loose stool alternating with constipation. No current fevers. However st ates over the years has been losing weight. Denies any jaundice or confusion. Of note history of melanoma ad SCC. Had stopped seeing local derm due to painful biopsies-w illing to see [facility] derm. Past Medical/Surgical History/Post-Transplant Dx Transplant Problem List: (Based on detailed review of medical records and endoscopy reports /images, and supplemented by patient history. Liver imaging studies were independently revie wed with an attending radiologist) 1. 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 2. Liver transplantation performed 09/09/11 at [facility]. 2.1. Immunosuppression: sirolimus 2 mg daily (trough goal ~6) and CellCept [...] use since then. No MJ. [place]oved [place] to [place] in [place] REVIEW OF SYSTEMS: Besides those mentioned in hpi, no increasing abd girth/leg edema, new neuro sxs. Has fatigue and GI sxs as noted above. No cp but some dizziness/sob. MEDICATIONS: Current Outpatient Prescriptions: amLODIPine 5 mg oral tablet, Take 7.5 mg by mouth once daily. Indications: hypertension, Disp: , Rfl: 3 bacitracin 500 unit/gram topical ointment, Apply to affected area two times daily. Indicat ions: post surgical incision site, Disp: 1 g, Rfl: 0 FLUoxetine 10 mg oral capsule, Take 10 mg by mouth once daily., Disp: , Rfl: furosemide 20 mg oral tablet, once daily., Disp: , Rfl: gabapentin 300 mg oral capsule, TK ONE C PO QD, Disp: , Rfl: 0 metoprolol succinate 100 mg oral tablet extended release 24 hr, TK 1 T PO QD, Disp: , Rfl: 3 mycophenolate (CELLCEPT) 250 mg oral capsule, Take 2 capsules by mouth two times daily. Masood e with food., Disp: 120 capsule, Rfl: 3 oxyCODONE (immediate release) 5 mg oral tablet, Take 1 tablet by mouth every six hours as n eeded for severe pain., Disp: 20 tablet, Rfl: 0 sirolimus 1 mg oral tablet, Take 2 tablets by mouth once daily in the morning. Indications: liver transplant, Disp: 60 tablet, Rfl: 3 PHYSICAL EXAMINATION: Appearance: thin man, alert and in no acute distress. HEENT: Anicteric sclerae. Neck: supple, nontender, no JVD. Lungs: clear to auscultation and percussion. Heart: RRR without murmurs, rubs, or gallops. Abdomen: soft, nontender, without obvious ascites. Normal bowel sounds. Well healed scars. Extremities: full ROM,+atrophy. No edema Skin: numerous skin lesions arms, face Neurological exam nonfocal, no asterixis, alert and oriented without encephalopathy. LABS: Recent Labs 11/17/17 0947 CR 1.16 AST 78* ALT 79* TBILI 0.5 ALB 3.9 WBC 4.47 HCT 40.9* PLT 167 INRPT 1.01 Lab Results Component Value Date TBILI 0.5 11/17/2017 AP 107 11/17/2017 TP 7.9 11/17/2017 DIRBILI 0.3 08/06/2015 ALB 3.9 11/17/2017 AST 78 (H) 11/17/2017 ALT 79 (H) 11/17/2017 Lab Results Lab Test Name Results Date/Time [...] ecially pertinent ones noted above: SIGNIFICANT IMAGING: US today concerning for L renal lesion ASSESSMENT/PLAN: Mr. 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 Post transplant course c/b SCC and recurrent HCV. Had an US evaluation to ensure no hepatoma prior to HCV treatment consideration. No hepatoma but did show new findin g of L renal mass which needs further eval. Radiology recommended renal mass protocol CT abd /pelvis which can also evaluate his bowel given recent diarrhea and L sided abdominal pain. RECOMMENDATIONS: 1. CT abd/pelvis- renal mass protocol and also to eval his bowels given L sided lower abd p ain. Urology consult after above done 2. Continue to trend CMP, CBC, immunosuppressive trough levels. 3. Stool c.diff test if still with diarrhea 4. If c.diff negative, consider colonoscopy for altered bm evalaution and also colon ca scr eening 5. Follow up HCV lab, treatment to be determined after above eval 6. Annual Flu shot. 7. Bone density scan if not had within 2 years. Ca and Vit D. 8. Refer to [facility] dermatology for high risk patient with multiple facial skin lesions 9. Return to clinic in 3 months Thank you for allowing me to participate in the care of this patient. Please feel free to contact me with any questions regarding the patient's care. Warmest regards. Sincerely, Dayron Donato MD [employer] Goodsbehavioral therapist [facility] Department of GI/Hepatology documented in this enc ounter Plan of Treatment +--------+---------+ + + + | Date | Type | Specialty | Care Team | Description | +--------+---------+ + + + | 06/17/ | Office | Otolaryngology | Shlomo Roach MD | | | 2019 | Visit | | [address] | | | | | | [address] [place] [place], | | | | | | [place] [address] | | | | | | [phone] | | | | | | | | +--------+---------+ + + + documented as of this encounter Visit Diagnoses + + | Diagnosis | + + | Status post liver transplant (HCC) - Primary Liver replaced by transplant | + + | Diarrhea, unspecified type | + + | Immunosuppression (HCC) Unspecified disorder of immune mechanism | + + | SCC (squamous cell carcinoma) Squamous cell carcinoma of skin, site unspecified | + + | Left lower quadrant pain Abdominal pain, left lower quadrant | + + | Left renal mass Unspecified disorder of kidney and ureter | + + | Immunization counseling | + + documented in this encounter"
--- OUTSIDE RECORDS SUMMARY | ~2019-05-14 | XMS | Encounter Summary ---
Demographics + + + | Address | [address] | | | [place] [address] | + + + | Home Phone [...] + + + | Author | [facility] | + + + | Organization | [facility] | + + + | [...] Providers + +------+ + | Care School Transportation Director Name | Role | Phone | + +------+ + | Ritesh England PA-C | PCP | | + +------+ + Encounter Details +--------+ + + + + | Date | Type | Department | Care Team | Description | +--------+ + + + + | 02/04/ | Pharmacy | [facility] | | | | 2019 | Visit | [address] [facility] | | | | | | [facility] [address] | | | | | | [place] [address] | | | | | | [phone] | | | +--------+ + + + [...] | | 2019 | Visit | | [address] | | | | | | [address] [place], | | | | | | [place] [address] | | | | | | [phone] | | | | | | | | +--------+---------+ + + + documented as of this encounter Visit Diagnoses Not on filedocumented in this encounter"
--- OUTSIDE RECORDS SUMMARY | ~2019-05-14 | XMS | Encounter Summary ---
Demographics + + + | Address | [address] | | | [place] [address] | + + + | Home Phone [...] Author + + + | Author | [facility] | + + + | Organization | [facility] | + + + [...] Team Providers + +------+ + | Care Operator Catalyst Concentration Name | Role | Phone | + +------+ + | Ritesh England PA-C | PCP | | + +------+ + Reason for Visit + + + | Reason | Comments | + + + | Liver Transplant | using [place] mail order | | Follow Up | | + + + Encounter Details +--------+ + + + + | Date | Type | Department | Care Team | Description | +--------+ + + + + | 11/16/ | Telephone | Transplant | Yvette Perkins RN | Liver Transplant | | 2019 | | Coordinators [address] | Follow Up (using | | | | [address] [place] | [address] [place], | [place] mail | | | | [place], [place] | [place] [address] | order) | | | | [address] | | | | | | [phone] | | | +--------+ + + + [...] | | | | | [address] [place], | | | | | | [place] [address] | | | | | | [phone] | | | | | | | | +--------+---------+ + + + documented as of this encounter Visit Diagnoses Not on filedocumented in this encounter"
--- OUTSIDE RECORDS SUMMARY | ~2019-05-14 | XMS | Encounter Summary ---
Demographics + + + | Address | [address] | | | [place] [address] | + + + | Home Phone | | + + + | Preferred Language | Unknown | + + + | Marital Status | Single | + + + | Presybeterian Affiliation | BAP | + + + | Race | White | + + + | Ethnic Group | Not or | + + + Author + + + | Author | [facility] | + + + | Organization | [facility] | + + [...] Team Providers + +------+ + | Care Cylinder Head Assembler Name | Role | Phone | + +------+ + | Ritesh England PA-C | PCP | | + +------+ + Encounter Details +--------+ + + + + | Date | Type | Department | Care Team | Description | +--------+ + + + + | 02/19/ | Telephone | [facility] | [place], | | | 2017 | | [facility] at | MD Brenda [address] | | | | | [facility] | [address] [place], | | | | | [address] | [place] [address] | | | | | Mailcode: [id number] | [phone] | | | | | [facility] | | | | | | and Healing, | | | | | | Building | | | | | | [place], [place] | | | | | | [address] | | | | | | [phone] | | | +--------+ + + + [...] | | | | | [address] [place], | | | | | | [place] [address] | | | | | | [phone] | | | | | | | | +--------+---------+ + + + documented as of this encounter Visit Diagnoses Not on filedocumented in this encounter"
--- OUTSIDE RECORDS SUMMARY | ~2019-05-14 | XMS | Encounter Summary ---
Demographics + + + | Address | [address] | | | [place] [address] | + + + | Home Phone | | + + + | Preferred Language | Unknown | + + + | Marital Status | Single | + + + | Holiness Affiliation | BAP | + + + | Race | White | + + + | Ethnic Group | Not or | + + + Author + + + | Author | [facility] | + + + | Organization | [facility] | + + + | Address [...] Team Providers + +------+ + | Care Radiology Therapist Name | Role | Phone | + +------+ + | Ritesh England PA-C | PCP | | + +------+ + Encounter Details +--------+ + + + + | Date | Type | Department | Care Team | Description | +--------+ + + + + | 09/07/ | Pharmacy | [facility]patient [facility] | | | | 2019 | Visit | [facility] | | | | | | [address] | | | | | | [address] [place], | | | | | | [place] [address] | | | +--------+ + + + [...] | | | | | [address] [place], | | | | | | [place] [address] | | | | | | [phone] | | | | | | | | +--------+---------+ + + + documented as of this encounter Visit Diagnoses Not on filedocumented in this encounter"
--- OUTSIDE RECORDS SUMMARY | ~2019-05-14 | XMS | Encounter Summary ---
Demographics + + + | Address | [address] | | | [place] [address] | + + + | Home Phone | | + + + | Preferred Language | Unknown | + + + | Marital Status | Single | + + + | Latter Day Affiliation | 1009 | + + + | Race | Unknown | + + + | Ethnic Group | Unknown | + + + Author + + + | Author | [facility] | | | and [place] | + + + | Organization | [facility] | | | and [place] | + + + | Address | Unknown | + + + | Phone | Unavailable | + + + Support + + + + + | Name | Relationship | Address | Phone | + + + + + | Brenda Jones | ECON | [place] | | | | | [address] | | + + + + + | Katarzyna Luke | ECON | , [place] | | + + + + + | chele townsend | ECON | Unknown | | + + + + + Care Team Providers + +------+ + | Care Rental Car Ferry Driver Name | Role | Phone | + +------+ + | Ritesh England PA-C | PCP | | + +------+ + Reason for Visit + + + | Reason | Comments | + + + | Hypertension | | + + + | Dizziness | | + + + | Headache (Adult - | back of the head today. | | New Onset Or New | | | Symptoms) | | + + + | Nausea | | + + + Encounter Details +--------+ + + + + | Date | Type | Department | Care Team | Description | +--------+ + + + + | 04/18/ | Emergency | [facility] | Solis Matias, | Hypertension, | | 2019 | | [facility] | MD [address] | unspecified type | | | | CENTER [address] | [place] | (Primary Dx); | | | | [place] | [id number] | Nonintractable | | | | [address] | | headache, | | | | [phone] | | unspecified | | | | | | chronicity pattern, | | | | | | unspecified headache | | | | | | type | +--------+ + + + + Social [...] | Body Mass Index | 22.96 | 04/18/2019 1140 PDT | + + + + documented in this [...] + + documented as of this encounter Discharge Instructions Instructions Solis Matias MD - 04/18/2019Follow-up with your ENT doctor as we discussed . AttachmentsThe following attachments cannot be sent through Care Everywhere.Headaches, Self -Care for (Turkmen)documented in this encounter Medications at Time of [...] tablet by | 60 | 3 | 03/10/20 | | | (NORVASC) 5 mg | mouth 2 times daily. | tablet | | 19 | | | tablet | | | [...] + + + +---------+ + + | | Take 1 tablet by | | 0 | | | | sulfamethoxazole-tri | mouth 2 times daily. | | | | | | methoprim (BACTRIM | | | | | | | DS) 800-160 mg per | | | | | | | tablet | | | | | | + + + +---------+ + + | oxyCODONE | Take 1 tablet by | 20 | 0 | 04/18/20 | | | (ROXICODONE) 5 mg | mouth every 6 hours | tablet | | 19 | 9 | | tablet | as needed for Pain | | | | | | | for up to 3 days. | | | | | + + [...] [place], | | | | | | [place] [address] | | | | | | [phone] | | | | | | | | +--------+---------+ + + + + +--------+ + + | Name | Priori | Associated Diagnoses | Date/Time | | | ty | | | + +--------+ + + | ED INFORMATION EXCHANGE | Routin | | 04/18/2019 11:30 PDT | | | e | | | + +--------+ + + documented as of [...] | | n - | | | | | | 2018 | | | 1131 | | | [...] | | | FICATI | | | ON? | | | | | | 9 | | | 11:29? | | | MICHAELS, | | | | | | MARISSA | | | | | | R?MRN: | | | | | | [id number] | | | [id number] | | | riteri | | | a Met | | | Care | | | Guidel | | | inesSe | | | curity | | | and | | | Safety | | | Date | | | Locati | | | on | | | Type | | | Specif | | | ics | | | | | | 8 | | | 12:52 | | | AM [facility] | [facility] | | | [facility] | | | y | | | [...] | | | St. | | | [facility] | | | y | | | Hospit | | | al | | | Patien | | | t is | | | curren | | | tly | | | establ | | | ished | | | with | | | St | | | [facility] | | | y | | | [...] St | | | | | | [facility] | | | y | | | [...] Acuity | | | | | | [place] | | | | | | Health [...] | | | St. | | | [facility] | | | y | | | [...] | | | St. | | | [facility] | | | y H. | | [...] | | | left | | | merchandiser retail representative | | | al ear | | | Feb | | | 5, | | | 2019 | | | [place] | | | | | | Health [...] | | | and | | | merchandiser retail representative | | | al | | | [...] | | | 2019 | | | [place] | | | | | | Health [...] | | | and | | | merchandiser retail representative | | | al | | | [...] | | | DO | | | Utility Specialist | | | al | | | [...] | | | ed.? | | | 2019 | | | [employer] | | | tive | | | Medica | | | l | | | Techno | | | logies | | | , Inc[employer] | | | - | | | [email or web address] | | | llecti | | | vemedi | | | [email or web address] | | | m | +---+--------+ documented in this encounter Results CT Head wo Contrast (04/18/2019 12:57 [...] | | | | GAB MERA MD ([id number]) | | | | | | on [...] | | | + +---------+ + + Basic Metabolic Panel (04/18/2019 12:41 [...] [facility] | | [...] [facility] | | | | [facility] | | | | | | [facility] - | | | | | | LABORATORY | | + + + + + + | Creatinine | 1.46 (H) | 0.70 - 1.30 | [facility] | | | | | mg/dL | [facility] | | | | | | [facility] | | | | | | CENTER - | | | | | | LABORATORY | | + + + + + + | eGFR if not | 49 (L)Comment: | >=60 | [facility] | | | | GLOMERULAR FILTRATION | mL/min/1.73m2 | [facility] | | | EMIRATI | RATE,ESTIMATED mL/min | | MEDICAL | | | | /1.58s1Kpkp than 60 | | CENTER - | [...] | | | | mg/dL | [facility] | | | | | | MEDICAL | | | | | | CENTER - | | | | | | LABORATORY | | + + + + + + | BUN/Creatin | 11.6 | | [facility] | | | ine Ratio | | | [facility] | | [...] + + | [facility] | [address] | [place] | [phone] | | [facility] | | [address] | | | - LABORATORY | | | | + + + + + CBC with Differential (04/18/2019 12:41 [...] | | | | g/dL | [facility] | | | | [...] | Monocytes | | K/uL | [facility] | | | | | | MEDICAL | | | | | | CENTER - | | | | | | LABORATORY | | + + + + + + | Absolute | 0.07 | 0.00 - 0.40 | [facility] | | | Eosinophils | | K/uL | [facility] | | | | | | MEDICAL | | | | | | CENTER - | | | | | | LABORATORY | | + + + + + + | Absolute | 0.04 | 0.00 - 0.10 | [facility] | | | Basophils | | K/uL | [facility] | | | | | | MEDICAL | | | | | | CENTER - | | | | | | LABORATORY | | + + + + + + | Absolute | 0.02 | 0.00 - 0.03 | [facility] | | | Immature | | K/uL | [facility] | | | Granulocyte | | | MEDICAL | | | s | | | CENTER - | | | | | | LABORATORY | | + + + + + + | % nRBC | 0 | 0 - 2 per 100 | [facility] | | | | | WBCs | [facility] | | | | | | MEDICAL | | | | | | CENTER - | | | | | | LABORATORY | | + + + + + + | Absolute | 0.00 | 0.00 - 0.01 | [facility] | | | nRBC | | K/uL | [facility] | [...] [address] | [place] | [phone] | | [facility] | | [address] | | | - LABORATORY | | [...] | | + +---------+ + + Extra Green Top Tube (04/18/2019 [...] + | [facility] | [address] | [place], [place] | [phone] | | [facility] | | [address] | | | - LABORATORY | | [...] | Top Tube | | | [facility] | | | | | | MEDICAL [...] ST. | [address] | [place] | [phone] | | [facility] | | [address] | | | - LABORATORY | | | | + + + + + Extra Lavender Top Tube (04/18/2019 12:30 PDT) + +-------+ + + + | Component | Value | Ref Range | Performed | Pathologist | | | | | At | Signature | + +-------+ + + + | Extra | Done | | [facility] | | | Lav[facility] | | | [facility] | | | Top Tube | [...] ST. | [address] | [place] | [phone] | | [facility] | | [address] | | | - LABORATORY | | | | + + + + + documented in this encounter Visit Diagnoses + + | Diagnosis | + + | Hypertension, unspecified type - Primary | + + | Nonintractable headache, unspecified chronicity pattern, unspecified headache type | + + documented in this encounter Administered Medications + +--------+ +--------+------+------+ | Medication Order | MAR | Action | Dose | Rate | Site | | | Action | Date | | | | + +--------+ +--------+------+------+ | HYDROmorphone (DILAUDID) | Given | 04/18/20 | 0.5 mg | | | | injection 0.5 mg 0.5 mg, | | 19 13:19 | | | | | Intravenous, EVERY 15 MIN PRN, | | PDT | | | | | Pain, Starting Thu04/18/19 at | | | | | | | 1231, For 4 doses | | | | | | + +--------+ +--------+------+------+ +-------+ +--------+---+---+ | Given | 04/18/20 | 0.5 mg | | | | | 19 12:42 | | | | | | PDT | | | | +-------+ +--------+---+---+ +---+---+ | | | +---+---+ + +-------+ +--------+---+---+ | HYDROmorphone (DILAUDID) | Given | 04/18/20 | 0.5 mg | | | | injection 0.5 mg 0.5 mg, | | 19 14:30 | | | | | Intravenous, EVERY 15 MIN PRN, | | PDT | | | | | Pain, Starting Thu04/18/19 at | | | | | | | 1425, For 4 doses | | | | | | + +-------+ +--------+---+---+ +---+---+ | | | +---+---+ + +-------+ +------+---+---+ | ondansetron (ZOFRAN) injection | Given | 04/18/20 | 4 mg | | | | 4 mg 4 mg, Intravenous, ONCE, | | 19 12:42 | | | | | 04/18/19 at 1235, For 1 dose | | PDT | | | | + +-------+ +------+---+---+ +---+---+ | | | +---+---+ documented in this encounter
--- OUTSIDE RECORDS SUMMARY | ~2019-05-14 | XMS | Encounter Summary ---
Demographics + + + | Address | [address] | | | [place] [address] | + + + | Home Phone [...] + + | Author | [facility] | + + + | Organization | [facility] | + + + | Address | [...] Team Providers + +------+ + | Care Perfect Binder Setter Name | Role | Phone | + +------+ + | Ritesh England PA-C | PCP | | + +------+ + Encounter Details +--------+ + + + + | Date | Type | Department | Care Team | Description | +--------+ + + + + | 02/09/ | Telephone | Liver Transplant | Liza Lopes, | | | 2018 | | at [facility] [address] | DIGITAL MARKETING PROJECT MANAGER [address] | | | | | [address] | [address] | | | | | [place] [address] | [place], [place] | | | | | [place], [place] | [address] | | | | | [address] | [phone] | | | | | [phone] | | | +--------+ + + + [...] | | | | | [address] [place], | | | | | | [place] [address] | | | | | | [phone] | | | | | | | | +--------+---------+ + + + documented as of this encounter Visit Diagnoses Not on filedocumented in this encounter"
--- OUTSIDE RECORDS SUMMARY | ~2019-05-14 | XMS | Encounter Summary ---
Demographics + + + | Address | [address] | | | [place] [address] | + + + | Home Phone [...] + | Author | [facility] | + + + | Organization | [facility] | [...] Team Providers + +------+ + | Care Phd Internship Name | Role | Phone | [...] | +--------+ + + + + | // | Telephone | Transplant | Brittney Pratt | Lab Draw (Checking | | 2019 | | Coordinators [address] | MD [address] | for results) | | | | [address] | [address], [place] | | | | | [place], [place] | [address] | | | | | [address] | [phone] | | | | | [phone] | | | +--------+ + + + [...] | | | | | [address]ica Ca[address] [place], | | | | | | [place] [address] | | | | | | [phone] | | | | | | | | +--------+---------+ + + + documented as of this encounter Visit Diagnoses Not on filedocumented in this encounter"
--- OUTSIDE RECORDS SUMMARY | ~2019-05-14 | XMS | Encounter Summary ---
Demographics + + + | Address | [address] | | | [place] [address] | + + + | Home Phone [...] Author + + + | Author | 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 | | | 2016 | anned | [address] | | | | | | [address] | | | | | | [place], [place] | | | | | | [address] | | | +--------+ + + + [...] | | | | | | [place], | | | | | | [place] [address] | | | | | | [phone] | | | | | | | | +--------+---------+ + + + documented as of this encounter Procedures + +--------+ + + + | Procedure Name | Priori | Date/Time | Associated Diagnosis | Comments | | | ty | | | | + +--------+ + + + | RADIOLOGY | | 10/09/2015 | | Results for this | | | | 12:00 AM | | procedure are in the | | | | PST | | results section. | + +--------+ + + + documented in this encounter Results RADIOLOGY (10/09/2015 12:00 AM PST) + + + | Narrative | Performed At | + + + | | | + + + documented in this encounter Visit Diagnoses Not on filedocumented in this encounter"
--- OUTSIDE RECORDS SUMMARY | ~2019-05-14 | XMS | Encounter Summary ---
Demographics + + + | Address | [address] | | | [place] [address] | + + + | Home Phone | | + + + | Preferred Language | Unknown | + + + | Marital Status | Single | + + + | Pentecostal Affiliation | BAP | + + + | Race | White | + + + | Ethnic Group | Not or | + + + Author + + + | Author | On License Of [facility] [employer] [facility] | + + + | Organization | On License Of [facility] [facility] | + + + | Address [...] Team Providers + +------+ + | Care Shutdown Coordinator Name | Role | Phone | + +------+ + | Ritesh England PA-C | PCP | | + +------+ + Encounter Details +--------+---------+ + + + | Date | Type | Department | Care Team | Description | +--------+---------+ + + + | 03/02/ | Office | Preoperative | Sherita Hernandez, | Pre-op evaluation | | 2018 | Visit | Medicine Clinic at | ANP [address] | (Primary Dx); | | | | [facility] [address] | [address] [place], [place] | Squamous cell | | | | Stay [address] | [address] | carcinoma of skin of | | | | [address] | [phone] | ear, unspecified | | | | Mailcode: [id number] | | laterality; Liver | | | | [facility] | | transplant recipient | | | | [address] [place], [place] | | (HCC); | | | | [address] | | Hypertension, | | | | [phone] | | unspecified type; | | | | | | Chronic systolic | | | | | | heart failure (HCC); | | | | | | Methamphetamine use | | | | | | disorder, moderate | | | | | | (HCC); Abdominal | | | | | | aortic aneurysm | | | | | | (AAA) without | | | | | | rupture (HCC); Preop | | | | | | examination | +--------+---------+ + + + Anesthesia Record + + + + + | Procedure Name | Responsible | Anesthesia Start | Anesthesia Stop Time | | | Anesthesiologist | Time | | + + + + + | EXCISION OF SKIN | Artis Lopez MD | 03/04/18 0816 | 03/04/18 1048 | | LESIONS OF NECK, | | | | | LEFT ARM, PLACEMENT | | | | | OF RIGHT EYELID | | | | | WEIGHT (N/A Face) | | | | + + + + + +----+---+ + + | Da | T | Event | Comment | | te | i | | | | | m | | | | | e | | | +----+---+ + + | 08 | 0 | | | | /0 | 8 | | | | 2/ | 1 | | | | 20 | 3 | | | | 18 | | | | +----+---+ + + | | 0 | Pt. Check | Prior to anesthesia start, pt. Identified, examined, chart | | | 8 | | reviewed, PARQ held, anesthetic plan made or approved by | | | 1 | | attending anesthesiologist. NPO status confirmed as appropriate | | | 3 | | for procedure Preoperative evaluation: unchanged | +----+---+ + + | | 0 | An Start | | | | 8 | | | | | 1 | | | | | 6 | | | +----+---+ + + | | 0 | Preprocedur | Pt ID confirmed, informed consent obtained, insertion site | | | 8 | e Checklist | marked, equipment available | | | 1 | | | | | 6 | | | +----+---+ + + | | 0 | Eq Check | Anesthesia machine checked Equipment verified | | | 8 | | | | | 2 | | | | | 0 | | | +----+---+ + + | | 0 | An Start | | | | 8 | Data | | | | 2 | | | | | 0 | | | +----+---+ + + | | 0 | Vitals | Monitors applied Vital signs checked Patient ready for anesthesia | | | 8 | Checked | | | | 2 | | | | | 3 | | | +----+---+ + + | | 0 | ETT | | | | 8 | | | | | 3 | | | | | 2 | | | +----+---+ + + | | 0 | Ready | | | | 8 | | | | | 3 | | | | | 3 | | | +----+---+ + + | | 0 | Abx | | | | 8 | Administere | | | | 4 | d | | | | 0 | | | +----+---+ + + | | 0 | Local | | | | 8 | Anesthetic | | | | 5 | by Surgeon | | | | 2 | | | +----+---+ + + | | 0 | Timeout | | | | 8 | | | | | 5 | | | | | 5 | | | +----+---+ + + | | 0 | Incision | | | | 8 | | | | | 5 | | | | | 8 | | | +----+---+ + + | | 1 | Surgery end | | | | 0 | | | | | 3 | | | | | 3 | | | +----+---+ + + | | 1 | An Extubate | Neuromuscular function Intact. Pharynx suctioned. Patient obeys | | | 0 | | commands. Adequate pulmonary mechanics. | | | 4 | | | | | 0 | | | +----+---+ + + | | 1 | an stop | | | | 0 | data | | | | 4 | | | | | 2 | | | +----+---+ + + | | 1 | PACU Rpt | | | | 0 | Given | | | | 4 | | | | | 8 | | | +----+---+ + + | | 1 | Anesthesia | | | | 0 | End | | | | 4 | | | | | 8 | | | +----+---+ + + +------+ [...] +--------+ + + + | Incisi | 01/14/18; SURGERY; Right; | 01/14/18 0000 by | 03/04/18 1014 by | | on | Midline; hip; 03/04/18; 1014 | Inés Olmstead RN | Deedee Bennett RN | +--------+ + + + | Periph | 03/03/18; 1050; Salome Hernandez RN; | 03/03/18 1050 by | 03/04/18 1500 by | | eral | Right; Antecubital; 20 g; None, | Salome Camacho RN | Maulik Long | | IV | Lidocaine; No; Positive; | Barrett Hunter RN | | | 03/04/18; 1500 | | | +--------+ + + + | Incisi | 03/04/18; 0916; Maxwell Hendrix MD; | 03/04/18915 by | 03/04/18 1500 by | | on | Right; eye (eyelid); 03/04/18; | Deedee Bennett RN | Maulik Long | | | 1500 | | RICHMOND Hunter | +--------+ + + + | Incisi | 03/04/18; 09; Milvia Spencer | 03/04/18924 by | 03/04/18 1500 by | | on | ; Left; Lower; arm; 03/04/18; | Deedee Bennett RN | Maulik Long | | | 1500 | Barrett Hunter RN | +--------+ + + + | Incisi | 03/04/18; 943; MD Chyna; Right; | 03/04/18 09 by | 03/04/18 1500 by | | on | neck; 03/04/18; 1500 | Barrett Ingram | | | | RICHMOND Hunetr RN | +--------+ + + + | Incisi | 03/04/18; 1012; Maxwell Hendrix MD; | 03/04/18 1012 by | 03/04/18 1500 by | | on | Left; Medial; neck; 03/04/18; | Deedee Bennett RN | Maulik Long | | | 1500 | | RICHMOND Hunter | +--------+ + + + | Incisi | 03/04/18; 1013; Maxwell Hendrix MD; | 03/04/18 1013 by | 03/04/18 1500 by | | on | Left; Lateral; neck; 03/04/18; | Deedee Bennett RN | Maulik Long | | | 1500 | | RICHMOND Hunter | +--------+ + + + documented in [...] + + + | Blood Pressure | 160/103 | 03/02/2018 3:31 PM | | | | | PDT | | + + + + + | Pulse | 90 | 03/02/2018 3:31 PM | | | | | PDT | | + + + + + | Temperature | 36.7 C (98.1 F) | 03/02/2018 3:31 PM | | | | | PDT | | + + + + + | Respiratory Rate | 20 | 03/02/2018 3:31 PM | | | | | PDT | | + + + + + | Oxygen Saturation | 100% | 03/02/2018 3:31 PM | | | | | PDT | | + + + + + | Inhaled Oxygen | - | - | | | Concentration | | | | + + + + + | Weight | 59 kg (130 lb) | 03/02/2018 3:31 PM | | | | | PDT | | + + + + + | Height | 172.7 cm (5' 8") | 03/02/2018 3:31 PM | neck 33.5cm | | | | PDT | | + + + + + | Body Mass Index | 19.77 | 03/02/2018 3:31 PM | | | | | PDT [...] + + documented as of this encounter Patient Instructions Patient Instructions Sherita Hernadnez ANP - 03/02/2018 3:40 PM PDT PREOPERATIVE INSTRUCTIONS [facility] [phone] Empty stomach before surgery NOTHING to eat or drink after midnight the night before surgery. This includes water, coffee, candy, mints, gum. Medications Instructions On the evening before your surgery, take ALL your usual evening medications On the morning of surgery TAKE the following medications with a sip of water: Cellcept Sirolimus Bring Albuterol inhaler with you day of surgery On the morning of surgery DO NOT TAKE the following medications: Amlodipine Lasix Potassium Other medications not specifically mentioned are at your discretion as to taking or not taking on the morning of surgery. Unless otherwise directed by your surgeon, do not take any Aspirin, fish oil supplements , vitamin E or non-steroidal anti-inflammatory (NSAIDs i.e. Advil, Aleve, Ibuprofen) or herb al supplements 7 days prior to your surgery. These drugs may interfere with normal blood chi tting and may cause excessive bleeding and bruising during or after the surgery. If you need a pain medication for general purposes, use Tylenol as directed. OK to take it even on the morning of surgery, if needed. If you are in doubt about any medications that you are taking, please contact our office . Skin preparation to help avoid surgical site infections HIBICLENS GUIDE TO GENERAL SKIN CLEANSING AT HOME BEFORE SURGERY Before you bathe or shower: ? Read the instructions given to you by your healthcare practitioner, and begin your genera l skin cleansing protocol as directed. ? Carefully read all directions on the product label. ? Hibiclens is not to be used on the head or face, keep out of the eyes, ears and mouth. ? Hibiclens is not to be used in the genital area. ? Hibiclens should not be used if you are allergic to chlorhexidine gluconate or any other ingredients in this preparation. *See Hibiclens label for full product information and precautions. When you bathe or shower the night [...] before and the morning of your procedure. Smoking You should not smoke for 4 weeks before the procedure and 2 weeks after the procedure. If you are a smoker, please make sure to discuss a plan for managing nicotine withdrawal while in the hospital. Smoking increases the risk of post operative complications because it causes narrowing of b lood vessels, which leads to decreased blood flow to the tissue and therefore poor healing. If you have 3-4 weeks before your planned procedure and wish to quit, we will help you with resources and support. Preventing post op complications while you are [...] sit, stand or walk. Surgery check-in location: Day Stay Unit - [facility], 4th floor Room 4519 Surgery Check in Time: The Preoperative Medicine Clinic is not in the position to give you accurate information regarding surgical check in time. We refer you back to your surgical office regarding this important information. Going Home Your surgical team will decide when you are medically ready to go home. If you are released to go home on the same day as your procedure/surgery please note the following: You will not be able to drive. You will be required to have a competent person drive you or accompany you by taxi or pu blic transportation on the day of discharge. It is also recommended that you have a competent person assist you and look after you on the first night after you have undergone regional blocks (72 hours for patients going home with regional block pump), deep sedation, and/or general anesthesia. If you have questions or concerns after you go home, call your doctor s office. If it is after office hours, call the [facility] test operator at [phone] and ask them to page him or h er. documented in this encounter Progress Notes Oswald Durbin MA - 03/02/2018 3:40 PM PDTVenipuncture performed in clinic, blood sampl e obtained from Right antecubital site Electronically signed by Oswald Durbin MA at 03/03 7:06 AM Sherita Haines ANP - 03/02/2018 3:40 PM PDT PREOPERATIVE CONSULT NOTE Author: MARTIN Dewey Referring Physician: Shlomo Roach MD Primary Care Provider: Ritesh England PA-C Reason for Consult: Preoperative evaluation and risk assessment Proposed Procedure/Date: BILATERAL NECK RESECTION WITH CERVICO FACIAL ROTATION FLAP, LEFT ARM RESECTION 03/03/2018 HISTORY OF PRESENT ILLNESS: Simeon Seb Michaels Jr. is a 58 y.o. male here for preoperative evaluation of medical problems in anticipation of the above procedure. 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 Symptoms related to the diagnosis: Patient with multiple squamous cell carcinoma of the head and neck region mostly caused by sun exposure and from immunotherapy. Multiple lesions of scalp, neck and arm. Areas are painful and pus-like. Pertinent medical problems discussed during this visit: Hypertension--had admission in January for right femur fracture with elevated BP. Patient a dmitted to being out of medication which causes hypertensive urgency and he has admitted to use of methamphetamine recently. Switched to Carvedilol 12.5 mg BID, Amlodipine, Furosemide. Admits to not taking his Carvedilol due to it not making him feel well. Blood pressure unco ntrolled, it appears patient is not compliant with medications. Non-ischemic cardiomyopathy--Has known systolic heart failure by TTE in 08/2016 with EF 3 5-40% with moderate concentric LVH and global hypokinesis (suspect due to HTN). No signs o f volume overload currently. Takes Furosemide. Saw a production control manager November 2016 with recommende d f/u in 3-4 months that patient never did. COPD--mild, uses Albuterol inhaler "sometimes twice daily, sometimes not at all". Claims to be triggered by environmental agents. Stage 2 or 3 CKD--baseline creatinine of 1.1-1.5, GFR>60 with normal electrolytes. Active smoker--smokes less than 1 ppd, patient claims less than used to, used to smoke 2 + ppd. Methamphetamine use disorder--patient claims last use was 6 months ago, this differs fro m recent PCP notes but this is what patient claims. 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 On chronic i mmunosuppression. Seen by Hepatology at [facility]. AAA w/o rupture--11/17/17 abdominal US noted "The abdominal aorta measures up to 34 x 30 mm with atherosclerotic plaque." Perioperative cardiac risks: CAD no CHF yes CVA no CKD with creatinine >2 no DM treated with insulin no Functional Capacity: Low (1-4 mets) Prior complications of anesthesia: none ROS: HPI: Hx of methamphetamine--claims last use was 6 months ago. Prior Anesthetic Problems: No Pulmonary: no shortness of breath no cough no stridor no wheezing no Recent Respiratory Infectio n Pt. Has no asthma COPD (has Albuterol inhaler uses as needed) mild No dx of sleep apnea Risk factors for sleep apnea: Pt SNORE's loudly (louder than talking) Pt. being treated fo r high blood pressure Age>50 and Gender Male Cardiovascular: History of AAA w/o rupture. Has known systolic heart failure by TTE in 08/2016 with EF 35-40 % with moderate concentric LVH and global hypokinesis (suspect due to HTN). Physically limited, broke hip January 2018, walks with a cane. Denies chest pain/pressure or dizziness. Functional Capacity: Low - cyanosis, palpitations and syncope no chest pain CHF EF by Echo: 35-40 hypertension (t aking Amlodipine) poorly controlled no CAD Sx no valvular problems/murmurs no arrhythmia no Cardiac assist devices no pacemaker/ICD GI/Hepatic: History of liver transplant in 2011 after HCV infection and ETOH cirrhosis. Recent gastroenteritis, ED visit mid January no GI Bleed no GERD no liver disease hepati tis hepatitis C Chronic Renal: renal failure Type: CKD GFR > 60 no electrolyte abnormalities no dialysis Endo: no Diabetes: no Endocrine Other no Hx Corticosteroid Use Neuro/Psych: No Head Conditions No Spine Conditions No Neuromuscular Conditions Psych Disorder depress ion and anxiety pain (right leg) Current pain score: 7 Musculoskeletal: no arthritis No Muscular Disorders Heme/Onc: Pt. has: no active bleeding no bleeding disorder No clotting disorders No hemoglobin d isorders malignancy squamous cell Infectious Disease: no MRSA no VRE Skin: no open wounds no skin conditions AutoImmune Disorders: No autoimmune disorders Current medications reviewed / updated Current Outpatient Prescriptions Medication Sig albuterol 90 mcg/actuation inhalation HFA aerosol inhaler Inhale 1-2 puffs by mouth svetlana ry six hours as needed. Indications: Bronchospastic Pulmonary Disease amLODIPine 10 mg oral tablet Take 1 tablet by mouth once daily. busPIRone 15 mg oral tablet Take 15 mg by mouth two times daily. calcium carbonate chewable 200 mg elemental (500 mg total salt) oral tablet,chewable Ch ew and swallow 1 tablet every two hours as needed. calcium-vitamin D 500 mg(1,250mg) -200 unit oral tablet Take 1 tablet by mouth two time s daily. carvedilol 12.5 mg oral tablet Take 1 tablet by mouth two times daily with meals. Admin ister with food. furosemide 20 mg oral tablet TK 1/2 T PO THREE TIMES A WEEK magnesium citrate oral solution Take 296 mL by mouth once daily as needed (second for c onstipation). melatonin 3 mg oral tablet Take 1 tablet by mouth once daily at bedtime. multivitamin-minerals oral tablet Take 1 tablet by mouth once daily. mycophenolate (CELLCEPT) 250 mg oral capsule Take 2 capsules by mouth two times daily. Take with food. Indications: Prevention of Liver Transplant Rejection polyethylene glycol 17 gram oral powder in packet Mix 1 packet and take orally two time s daily. potassium chloride SR 20 mEq oral tablet,ER particles/crystals Take 1 tablet by mouth o nce daily. prochlorperazine 5 mg oral tablet Take 1-2 tablets by mouth every six hours as needed. Max dose: 40 mg/day senna-docusate 8.6-50 mg oral tablet Take 2 tablets by mouth two times daily. sirolimus 1 mg oral tablet Take 3 tablets by mouth once daily in the morning. Indicatio ns: s/p liver transplant Level of confidence in medication reconciliation accuracy: High Allergies reviewed / updated Allergies Allergen Reactions Morphine Nausea Past medical history reviewed / updated Past Medical History: Diagnosis Date Abdominal pain Actinic keratoses Alcoholism (HCC) Anxiety Chronic neck pain Chronic pain sounds like trigeminal neuralgia, right side of the face Cirrhosis (HCC) Coarse tremors Dilated cardiomyopathy (HCC) Disorder of liver HCC (hepatocellular carcinoma) (HCC) Hepatitis C chronic History of drug abuse Past history of IV drug use, Quit using drugs in 2009 Hypertension Hypomagnesemia Liver cancer (HCC) was on hospice in 2009! Liver replaced by transplant (HCC) Malignant neoplasm of parotid gland (HCC) Melanoma of face (HCC) 2005 Excision in 2004; reconstruction in 2013 NICM (nonischemic cardiomyopathy) (HCC) EF 35-40% Other chronic pain Pericardial effusion 08/2016 Ptosis of right eyelid SCCA (squamous cell carcinoma) of skin 09/17/2005 Vitamin D deficiency Past surgery reviewed / updated Past Surgical History Procedure Laterality Date Liver transplant 2011 At the [facility] Skin cancer excision 2003 MOH's X3 Jaw surgery Ankle fracture surgery Colonoscopy Family history reviewed / updated Family History Problem Relation Diabetes Mother Cancer Father skin cancer Melanoma Father Diabetes Brother Social history reviewed / updated Social History Substance Use Topics Smoking status: Current Every Day Smoker Packs/day: 1.00 Years: 25.00 Types: Cigarettes Smokeless tobacco: Former User Types: Chew Alcohol use No PHYSICAL EXAM: Last Vitals: BP 160/103 | Pulse 90 | Temp (Src) 36.7 C (98.1 F) (Oral) | RR 20 | Ht 1.7 27 m (5' 8") | Wt 59 kg (130 lb) | SpO2 100% | BMI 19.77 kg/(m^2) Body mass index is 19.77 k g/m. General: Appearance: Healthy, Age appropriate and No distress LOC: Alert HEENT: Normocephalic/Atraumatic, Normal sclerae/conjunctivae, PERRL, EOMI and No thyromegaly Airway: Dentition: dentition is normal Mouth Opening: > 3 cm TM Distance:> 6 cm C-Spine ROM: Limited flexion & extension Neck Anatomy: Normal Neck Circumference: 33.5 cm. Jaw Protrusion: Normal (lower incisors go above upper incisor s) Pulmonary: Respiratory: pulmonary exam normal Breath Sounds: breath sounds normal Cardiovascular: Rhythm: Regular Rate: Normal Cardiovascular comments: No M/G/R; no pedal edema Abdomen: General: Normal Body Habitus: normal Musculoskeletal: Range of Motion: Normal range of motion Musculoskeletal Comments: No obvious deformities n oted. Neuro/Psych: Affect: Normal Cognitive Status: Normal Speech: Normal speech Strength: Normal Muscle Tone: Normal Movement: Normal Gait Station: Normal Cranial Nerves: Normal Sensation: Normal to light touch Comments: No obvious neurologic deficits noted Skin: Color: skin color normal Texture: Normal Turgor: turgor normal Temperature: Warm Conditions: Lesion Comments: squamo us cell carcinoma on face, lesions on arms Other Implanted Devices: Implanted devices: None LABS & DATA REVIEWED/ORDERED Lab Results Component Value Date WBC 6.23 03/02/2018 HB 13.0 03/02/2018 HCT 37.3 03/02/2018 PLT 216 03/02/2018 MCV 85.4 03/02/2018 RDW 40.4 03/02/2018 Lab Results Component Value Date NA 140 03/02/2018 K 3.4 03/02/2018 CL 105 03/02/2018 BICARB 27 03/02/2018 BUN 21 03/02/2018 CR 1.04 03/02/2018 GLU 92 03/02/2018 CA 8.5 03/02/2018 AST 44 03/02/2018 ALT 54 03/02/2018 AP 156 03/02/2018 TBILI 0.3 03/02/2018 TP 8.0 03/02/2018 ALB 3.6 03/02/2018 DIRBILI 0.10 12/24/2017 Lab Results Component Value Date ABO O 03/02/2018 RH Positive 03/02/2018 Lab Results Component Value Date A1C 5.5 04/21/2017 EKG: Personally reviewed. From 01/13/2018, unchanged from prior. Has one from [facility] 02/20/2018. Results for orders placed or performed during the hospital encounter of 01/13/18 12 LEAD ECG Result Value Ref Range VENTRICULAR RATE 107 bpm ATRIAL RATE 106 ms P-R INTERVAL 150 ms P AXIS 64 deg QRS DURATION 105 ms QT 387 ms QTCB 515 ms R AXIS -40 deg T AXIS -32 deg ECG IMPRESSION Sinus tachycardia ECG IMPRESSION Probable left atrial enlargement ECG IMPRESSION Left ventricular hypertrophy ECG IMPRESSION Borderline T abnormalities, inferior leads ECG IMPRESSION Prolonged QT interval- ABNORMAL ECG - ECG IMPRESSION Electronically signed by: KATHY GUTIERREZ 01-15-2018 17:36:57 [facility] and "media" tab. Findings pertinent to this pr eoperative visit are as follows: [place] ED records Perioperative risk calculators 2014 ACC/AHA Perioperative Cardiac [...] Applicable ASSESSMENT and RECOMMENDATIONS: Perioperative risk assessment: Simeon Michaels Jr. is a 58 y.o. 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 Based on the clinical information obtain ed and reviewed during this visit, the overall assessment is that the patient is having elec tive major surgery with identified risk factors. The patient is stable / optimized for surge ry. Additional testing/optimization is not needed. Medication management recommendations: The patient was advised to continue all usual med ications except as noted in Patient Instructions (After Visit Summary given to pt) Pre-procedure antibiotic recommendation: Per standard protocol. Hypertension--had admission in January for right femur fracture with elevated BP. Patient a dmitted to being out of medication which causes hypertensive urgency and he has admitted to use of methamphetamine recently. Switched to Carvedilol 12.5 mg BID, Amlodipine, Furosemide. Admits to not taking his Carvedilol due to it not making him feel well. Blood pressure unco ntrolled, it appears patient is not compliant with medications. Instructed to hold Amlodipin e per policy protocol. Non-ischemic cardiomyopathy--Has known systolic heart failure by TTE in 08/2016 with EF 3 5-40% with moderate concentric LVH and global hypokinesis (suspect due to HTN). No signs o f volume overload currently. Takes Furosemide. Saw a production control manager November 2016 with recommende d f/u in 3-4 months that patient never did. Instructed to hold Furosemide and Potassium morn ing of surgery. COPD--mild, uses Albuterol inhaler "sometimes twice daily, sometimes not at all". Claims to be triggered by environmental agents. Instructed to bring inhaler day of surgery. Stage 2 or 3 CKD--baseline creatinine of 1.1-1.5, GFR>60 with normal electrolytes. Active smoker--smokes less than 1 ppd, patient claims less than used to, used to smoke 2 + ppd. Instructed not to smoke for at least 12 hours prior to surgery. Methamphetamine use disorder--patient claims last use was 6 months ago, this differs fro m recent PCP notes but this is what patient claims. 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 On chronic i mmunosuppression. Seen by Hepatology at [facility]. Instructed to continue immunosuppressive thera py. AAA w/o rupture--11/17/17 abdominal US noted "The abdominal aorta measures up to 34 x 30 mm with atherosclerotic plaque." Thank you for the opportunity to contribute to this patient's care. MARTIN Dewey [facility] PREOPERATIVE MEDICINE CLINIC AT [facility] 4TH FLOOR DAY STAY [address] [place] [address] I spent time counseling the pt regarding perioperative risk (cardiac/bleeding/ DVT/ respir atory failure/ infection, etc) and methods to mitigate risk. I advised the patient regardin g NPO requirements, hydration before surgery, showering, general body hygiene. All pre-proc edure instructions given to the patient (after-visit summary). All of patient's questions w ere addressed. The patient verbalized understanding of the instructions given. Monikaa fatmata signed by MARTIN Dewey at 03/03/2018 7:06 AM PDTdocumented in this encounter Plan of Treatment +--------+---------+ + + + | Date | Type | Specialty | Care Team | Description | +--------+---------+ + + + | 06/17/ | Office | Otolaryngology | Shlomo Roach MD | | | 2019 | Visit | | [address] | | | | | | [place], | | | | | | [place] [address] | | | | | | [phone] | | | | | | | | +--------+---------+ + + + documented as of this encounter Procedures + +--------+ + + + | Procedure Name | Priori | Date/Time | Associated Diagnosis | Comments | | | ty | | | | + +--------+ + + + | W[place] COLLECTION VENOUS | Routin | 03/02/2018 | Pre-op evaluation | | | BLOOD,VENIPUNCTURE | e | 3:45 PM | | | | | | PDT | | | + +--------+ + + + | CBC (HEMOGRAM) ONLY | Routin | 03/02/2018 | Pre-op evaluation | Results for this | | | e | 3:45 PM | Squamous cell | procedure are in the | | | | PDT | carcinoma of skin of | results section. | | | | | ear, unspecified | | | | | | laterality | | + +--------+ + + + | CBC ONLY | Routin | 03/02/2018 | Pre-op evaluation | Results for this | | | e | 3:45 PM | Squamous cell | procedure are in the | | | | PDT | carcinoma of skin of | results section. | | | | | ear, unspecified | | | | | | laterality | | + +--------+ + + + | ANTIBODY SCREEN | Routin | 03/02/2018 | Pre-op evaluation | Results for this | | | e | 3:45 PM | Squamous cell | procedure are in the | | | | PDT | carcinoma of skin of | results section. | | | | | ear, unspecified | | | | | | laterality | | + +--------+ + + + | TYPE AND SCREEN | Routin | 03/02/2018 | Pre-op evaluation | Results for this | | | e | 3:45 PM | Squamous cell | procedure are in the | | | | PDT | carcinoma of skin of | results section. | | | | | ear, unspecified | | | | | | laterality | | + +--------+ + + + | ABO & RH TYPE | Routin | 03/02/2018 | Pre-op evaluation | Results for this | | | e | 3:45 PM | Squamous cell | procedure are in the | | | | PDT | carcinoma of skin of | results section. | | | | | ear, unspecified | | | | | | laterality | | + +--------+ + + + | COMPLETE METABOLIC | Routin | 03/02/2018 | Pre-op evaluation | Results for this | | SET | e | 3:44 PM | Squamous cell | procedure are in the | | (NA,K,CL,CO2,BUN,CRE | | PDT | carcinoma of skin of | results section. | | AT,GLUC,CA,AST,ALT,B | | | ear, unspecified | | | YAYO TOTAL,ALK | | | laterality | | | PHOS,ALB,PROT TOTAL) | | | | | + +--------+ + + + documented in this encounter Results CBC (HEMOGRAM) ONLY (03/02/2018 3:45 PM PDT) + + + + + + | Component | Value | Ref Range | Performed | Pathologist | | | | | At | Signature | + + + + + + | WHITE CELL | 6.23 | 3.50 - 10.80 | [facility] | | | COUNT | | K/cu mm | LABORATORY | | | | | | SERVICES, | | | | | | CORE | | + + + + + + | RED CELL | 4.37 (L) | 4.50 - 6.00 | [facility] | | | COUNT | | M/cu mm | LABORATORY | | | | | | SERVICES, | | | | | | CORE | | + + + + + + | HEMOGLOBIN | 13.0 (L) | 13.5 - 17.5 | [facility] | | | | | g/dL | LABORATORY | | | | | | SERVICES, | | | | | | CORE | | + + + + + + | HEMATOCRIT | 37.3 (L) | 41.0 - 53.0 % | [facility] | | | | | | LABORATORY | | | | | | SERVICES, | | | | | | CORE | | + + + + + + | MCV | 85.4 | 80.0 - 100.0 fL | [facility] | | | | | | LABORATORY | | | | | | SERVICES, | | | | | | CORE | | + + + + + + | MCHC | 34.9 | 32.0 - 36.0 | [facility] | | | | | g/dL | LABORATORY | | | | | | SERVICES, | | | | | | CORE | | + + + + + + | RDW SD | 40.4 | 35.1 - 46.3 fL | [facility] | | | | | | LABORATORY | | | | | | SERVICES, | | | | | | CORE | | + + + + + + | PLATELET | 216 | 150 - 400 K/cu | [facility] | | | COUNT | | mm | LABORATORY | | | | | | SERVICES, | | | | | | CORE | | + + + + + + | MPV | 8.5 (L) | 9.7 - 12.3 fL | [facility] | | | | | | LABORATORY | | | | | | SERVICES, | | | | | | CORE | | + + + + + + | NRBC% | 0.0 | 0.0 - 0.3 % | [facility] | | | | | | LABORATORY | | | | | | SERVICES, | | | | | | CORE | | + + + + + + | NRBC# | 0.00 [...] Performed At | + + + | New reference ranges for MCV, MCHC, PLT, IG% and IG# effective | [facility] | | 12/10/2017 | LABORATORY | | | [place] | + + + + + + + + | Performing | Address | City/State/Zipcode | Phone Number | | Organization | | | | + + + + + | [facility] | [address] | [place] [address] | | | SERVICES, [place] | [address] | | | + + + + + ANTIBODY SCREEN (03/02/2018 3:45 PM PDT) + + + + + + [...] + + | [facility] | [address] | [place] [address] | | | SERVICES, | [address] | | | | TRANSFUSION MEDICINE | | | | + + + + + ABO & RH TYPE (03/02/2018 3:45 PM PDT) + + + + + + [...] | + + + + + | [facility] | [address] | [place] [address] | | | SERVICES, | [address] | | | | TRANSFUSION MEDICINE | | | | + + + + + COMPLETE METABOLIC SET (NA,K,CL,CO2,BUN,CREAT,GLUC,CA,AST,ALT,BILI TOTAL,ALK PHOS,ALB,PROT TOTAL) (03/02/2018 3:44 PM PDT) + +---------+ + + + | Component | Value | Ref Range | Performed | Pathologist | | | | | At | Signature | + +---------+ + + + | GLUCOSE, | 92 | 70 - 99 mg/dL | [facility] | | | PLASMA | | | LABORATORY | | | (LAB) | | | SERVICES, | | | | | | CORE | | + +---------+ + + + | BUN, PLASMA | 21 (H) | 6 - 20 mg/dL | [facility] | | | (LAB) | | | LABORATORY | | | | | | SERVICES, | | | | | | CORE | | + +---------+ + + + | CREATININE | 1.04 | 0.70 - 1.30 | [facility] | | | PLASMA | | mg/dL | LABORATORY | | | (LAB) | | | SERVICES, | | | | | | CORE | | + +---------+ + + + | EGFR | >60 | >60 mL/min | [facility] | | | - | | | LABORATORY | | | VINCENTIAN | | | SERVICES, | | | | | | CORE | | + +---------+ + + + | EGFR NON | >60 | >60 mL/min | [facility] | | | -JAE | | | LABORATORY | | | RICAN | | | SERVICES, | | | | | | CORE | | + +---------+ + + + | SODIUM, | 140 | 136 - 145 | [facility] | | | PLASMA | | mmol/L | LABORATORY | | | (LAB) | | | SERVICES, | | | | | | CORE | | + +---------+ + + + | POTASSIUM, | 3.4 | 3.4 - 5.0 | [facility] | | | PLASMA | | mmol/L | LABORATORY | | | (LAB) | | | SERVICES, | | | | | | CORE | | + +---------+ + + + | CHLORIDE, | 105 | 97 - 108 mmol/L | [facility] [...] +---------+ + + + | CALCIUM, | 8.5 (L) | 8.6 - 10.2 | [facility] | | | PLASMA | | mg/dL | LABORATORY | | | (LAB) | | | SERVICES, | | | | | | CORE | | + +---------+ + + + | CALCIUM(ALB | 8.8 | 8.6 - 10.2 | [facility] | | | CORRECTED) | | mg/dL | LABORATORY | | | | | | SERVICES, | | | | | | CORE | | + +---------+ + + + | BILIRUBIN | 0.3 | 0.3 - 1.2 mg/dL | [facility] | | | TOTAL | | | LABORATORY | | | | | | SERVICES, | | | | | | CORE | | + +---------+ + + + | TOTAL | 8.0 | 6.4 - 8.2 g/dL | [facility] | | | PROTEIN, | | | LABORATORY | | | PLASMA | | | SERVICES, | | | (LAB) | | | CORE | | + +---------+ + + + | ALBUMIN, | 3.6 | 3.5 - 4.7 g/dL | [facility] | | | PLASMA | | | LABORATORY | | | (LAB) | | | SERVICES, | | | | | | CORE | | + +---------+ + + + | ALK PHOS | 156 (H) | 56 - 119 U/L | [facility] | | | | | | LABORATORY | | | | | | SERVICES, | | | | | | CORE | | + +---------+ + + + | AST(SGOT) | 44 (H) | <=41 U/L | [facility] | | | | | | LABORATORY | | | | | | SERVICES, | | | | | | CORE | | + +---------+ + + + | ALT (SGPT) | 54 | <=60 U/L | [facility] | | | | | | LABORATORY | | | | | | SERVICES, | | | | | | CORE | | + +---------+ + + + | ANION GAP | 8 | 4 - 11 mmol/L | [facility] | | | | | | LABORATORY | | | | | | SERVICES, | | | | | | CORE | | + +---------+ + + + | ANION | 9 | 4 - 11 mmol/L | [facility] | | | GAP(ALB | | | LABORATORY | | | CORRECTED) | | | SERVICES, | | | | | | CORE | | + +---------+ + + + | POTASSIUM | No Hemo | | [facility] | | | CMNT | | | LABORATORY | | | | | | SERVICES, | | | | | | CORE | | + +---------+ + + + | BILI T CMNT | No Hemo | | [facility] | | | | | | LABORATORY | | | | | | SERVICES, | | | | | | CORE | | + +---------+ + + + | AST CMNT | [...] Performed At | + + + | GFR is estimated using the MDRD equation recommended by the | [facility] | | National Kidney Disease Education Program. Estimated GFR | LABORATORY | | Interpretive Information: <60 mL/min/1.73 sq m | SERVICES, CORE | | Chronic Kidney Disease <15 mL/min/1.73 sq m | | | Kidney Failure Estimated GFR greater that 60 mL/min/1.73 sq m is of | | | limited clinical value. The MDRD equation is not valid in the | | | following situations: - Patients under 18 years of age - Severe | | | malnutrition or obesity - Vegetarian diet - Rapidly changing kidney | | | function - Amputees, paraplegics, or other muscle-wasting diseses | | + + + + + + + + | Performing | Address | City/State/Zipcode | Phone Number | | Organization | | | | + + + + + | [facility] | [address] | [place] [address] | | | SERVICES, CORE | [address] | | | + + + + + documented in this encounter Visit Diagnoses + + | Diagnosis | + + | Pre-op evaluation - Primary Preoperative examination, unspecified | + + | Squamous cell carcinoma of skin of ear, unspecified laterality | + + | Liver transplant recipient (HCC) | + + | Hypertension, unspecified type | + + | Chronic systolic heart failure (HCC) Chronic systolic heart failure | + + | Methamphetamine use disorder, moderate (HCC) | + + | Abdominal aortic aneurysm (AAA) without rupture (HCC) | + + | Preop examination Preoperative examination, unspecified | + + documented in this encounter
--- OUTSIDE RECORDS SUMMARY | ~2019-05-14 | XMS | Encounter Summary ---
Demographics + + + | Address | [address] | | | [place] [address] | + + + | Home Phone [...] + | Author | [facility] | + + + | Organization | [facility] | + [...] Team Providers + +------+ + | Care Electrophonic Engineer Name | Role | Phone | + +------+ + | Ritesh England PA-C | PCP | | + +------+ + Reason for Visit + + + | Reason | Comments | + + + | Liver Transplant | follow-up | | Follow Up | | + + + Encounter Details +--------+ + + + + | Date | Type | Department | Care Team | Description | +--------+ + + + + | 12/16/ | Telephone | Transplant | Yvette Perkins RN | Liver Transplant | | 2018 | | Coordinators [address] | [address] | Follow Up | | | | [address] | [address] [place], | (follow-up) | | | | [place], [place] | [place] [address] | | | | | [address] | | | | | | [phone] | | | +--------+ + + + [...] | | | | | [address] [place], | | | | | | [place] [address] | | | | | | [phone] | | | | | | | | +--------+---------+ + + + documented as of this encounter Visit Diagnoses Not on filedocumented in this encounter"
--- OUTSIDE RECORDS SUMMARY | ~2019-05-14 | XMS | Encounter Summary ---
Demographics + + + | Address | [address] | | | [place] [address] | + + + | Home Phone | | + + + | Preferred Language | Unknown | + + + | Marital Status | Single | + + + | Orthodox Affiliation | BAP | + + + | Race | White | + + + | Ethnic Group | Not or | + + + Author + + + | Author | [facility] | + + + | Organization | [facility] | + + + | [...] Team Providers + +------+ + | Care Metallurgical Technician Name | Role | Phone | + +------+ + | Ritesh England PA-C | PCP | | + +------+ + Reason for Referral Consultation (Routine) +--------+ + + + + + | Status | Reason | Specialty | Diagnoses / | Referred By | Referred To | | | | | Procedures | Contact | Contact | +--------+ + + + + + | Closed | Specialty | Dermatology | Diagnoses | [facility] | | | | Services | | Liver | Coord Liver | Jerzykrystaroge, | | | Required | | replaced by | [address] | Ed Patel MD | | | | | transplant | Leo | [address] | | | | | (HCC) | [address] | Ron Dowling | | | | | Procedures | [place], [place] | [place], [place] | | | | | CONSULT TO | [address] | [address] | | | | | DERM & DERM | Phone: | Phone: | | | | | SURGERY | [phone] | [phone] | | | | | eval & treat | Fax: | Fax: | | | | | | [phone] | [phone] | +--------+ + + + + + Reason for Visit + + + | Reason | Comments | + + + | Liver Transplant | CT abd/pelvis | | Follow Up | | + + + Encounter Details +--------+ + + + + | Date | Type | Department | Care Team | Description | +--------+ + + + + | 11/18/ | Governor Assembler Hydraulic | Transplant | Yvette Perkins RN | Liver replaced by | | 2017 | | [address]ators [address] | [address] | transplant (HCC) | | | | [address] | [address] [place], | (Primary Dx) | | | | [place], [place] | [place] [address] | | | | | [address] | | | | | | [phone] | | | +--------+ + + + [...] | | | | | [address] [place], | | | | | | [place] [address] | | | | | | [phone] | | | | | | | | +--------+---------+ + + + documented as of this encounter Visit Diagnoses + + | Diagnosis | + + | Liver replaced by transplant (HCC) - Primary Liver replaced by transplant | + + documented in this encounter"
--- OUTSIDE RECORDS SUMMARY | ~2019-05-14 | XMS | Encounter Summary ---
Demographics + + + | Address | [address] | | | [place] [address] | + + + | Home Phone [...] + | Author | [facility] | + + + | Organization | [facility] | + + + | [...] Team Providers + +------+ + | Care Hotel Baggage Handler Name | Role | Phone | + +------+ + | Ritesh England PA-C | PCP | | + +------+ + Encounter Details +--------+ + + + + | Date | Type | Department | Care Team | Description | +--------+ + + + + | 09/21/ | Telephone | Otolaryngology | Shlomo Roach MD | | | 2019 | | Head and Neck | [address] | | | | | Surgery Services at | [address] [place], | | | | | [address] [facility] | [place] [address] | | | | | [address] | [phone] | | | | | Mailcode: [id number] | | | | | | Phys[facility] [address] | | | | | | [place], [place] | | | | | | [address] | | | | | | [phone] | | | +--------+ + + + [...] | | | | | [address] [place], | | | | | | [place] [address] | | | | | | [phone] | | | | | | | | +--------+---------+ + + + documented as of this encounter Visit Diagnoses Not on filedocumented in this encounter"
--- OUTSIDE RECORDS SUMMARY | ~2019-05-14 | XMS | Encounter Summary ---
Demographics + + + | Address | [address] | | | [place] [address] | + + + | Home Phone [...] + + | Author | [facility] | + + + | Organization | [facility] | + + + | Address | [...] Team Providers + +------+ + | Care Laundry Attendant Name | Role | Phone | + +------+ + | Ritesh England PA-C | PCP | | + +------+ + Encounter Details +--------+ + + + + | Date | Type | Department | Care Team | Description | +--------+ + + + + | 05/09/ | Telephone | Otolaryngology | Shlomo Roach MD | | | 2019 | | Head and Neck | [address] | | | | | Surgery Services at | [address] [place], | | | | | [facility] [address] | [place] [address] | | | | | Ave Mailcode: | [phone] | | | | | [facility] | | | | | | and Healing, | | | | | | [address] | | | | | | [place], [place] | | | | | | [address] | | | | | | [phone] | | | +--------+ + + + [...] | | | | | [address] [place], | | | | | | [place] [address] | | | | | | [phone] | | | | | | | | +--------+---------+ + + + documented as of this encounter Visit Diagnoses Not on filedocumented in this encounter"
--- OUTSIDE RECORDS SUMMARY | ~2019-05-14 | XMS | Encounter Summary ---
Demographics + + + | Address | [address] | | | [place] [address] | + + + | Home Phone [...] + + | Author | [facility] | + + + | Organization | [facility] | + + [...] Team Providers + +------+ + | Care Cosmetician Apprentice Name | Role | Phone | + +------+ + | No Pcp Per Patient | PCP | Unavailable | + +------+ + Reason for Visit + + + | Reason | Comments | + + + | Prescription | Pt would like Rx of Vicodin called in to [facility] in [place] | | | today, thanks | + + + Encounter Details +--------+ + + + + | Date | Type | Department | Care Team | Description | +--------+ + + + + | 02/19/ | Telephone | Otolaryngology | Leon Hernandez, | Prescription (Pt | | 2005 | | Head and Neck | [address] | would like Rx of | | | | Surgery Services at | [facility] | Adela called in to | | | | AMANDA [address] | [place], [place] | [facility] in | | | | [facility] | [address] | Rashida today, | | | | Mailcode: [id number] | [phone] | thanks) | | | | [facility] | | | | | | [place], [place] | | | | | | [address] | | | | | | [phone] | | | +--------+ + + + [...] | | | | | [address] [place], | | | | | | [place] [address] | | | | | | [phone] | | | | | | | | +--------+---------+ + + + documented as of this encounter Visit Diagnoses Not on filedocumented in this encounter"
--- OUTSIDE RECORDS SUMMARY | ~2019-05-14 | XMS | Encounter Summary ---
Demographics + + + | Address | [address] | | | [place] [address] | + + + | Home Phone | | + + + | Preferred Language | Unknown | + + + | Marital Status | Single | + + + | Amish Affiliation | BAP | + + + | Race | White | + + + | Ethnic Group | Not or | + + + Author + + + | Author | [facility] | + + + | Organization | [facility] | + + + | [...] Team Providers + +------+ + | Care Payroll Human Resources Assistant Name | Role | Phone | [...] Description | +--------+---------+ + + + | 01/14/ | Surgery | 6A Intra Op [facility] | Bernard Lawrence, | [facility] | | 2018 | | [facility] | MD [address] | | | | | Admitting Desk | [address] | | | | | Located on the | [place], [place] | | | | | [facility] [address] [facility] | [address] | | | | | [address] | [phone] | | | | | [place], [place] | | | | | | [address] | | | +--------+---------+ + + + [...] + + + | Blood Pressure | 149/80 | 01/18/2018 11:22 AM | | | | | PDT | | + + + + + | Pulse | 69 | 01/18/2018 11:22 AM | | | | | PDT | | + + + + + | Temperature | 36.8 C (98.2 F) | 01/18/2018 11:22 AM | | | | | PDT | | + + + + + | Respiratory Rate | 14 | 01/18/2018 11:22 AM | | | | | PDT | | + + + + + | Oxygen Saturation | 93% | 01/18/2018 11:22 AM | | | | | PDT | | + + + + + | Inhaled Oxygen | - | - | | | Concentration | | | | + + + + + | Weight | 61.6 kg (135 lb 12.9 | 01/17/2018 3:16 PM | | | | oz) | PDT | | + + + + + | Height | 172.7 cm (5' 8") | 01/14/2018 6:07 AM | | | | | PDT | | + + + + + | Body Mass Index | 20.65 | 01/14/2018 6:07 AM | | | | | PDT [...] + documented as of this encounter Discharge Summaries Say Kulkarni MD - 01/18/2018 11:53 AM PDT [facility] Discharge Summary Discharging Provider: Say Kulkarni MD Discharging Attending Physician: Say Kulkarni MD PCP: Ritesh England PA-C Admission Date: 01/13/2018 Discharge Date: 01/18/2018 Hospital Stay: 5 day(s) Diagnosis: Principal Diagnosis: # Right femur fracture Additional Diagnoses: # Hypertensive urgency: improved # HTN #Dizziness # OLT (2011) # Chronic immunosuppression # Chronic systolic heart failure # Non-ischemic dilated cardiomyopathy # Stage 2 or 3 CKD # Active smoker # Constipation # methamphetamine use disorder # Stage 2 or 3 CKD # Active smoker # Constipation # methamphetamine use disorder # Recurrent HCV # AAA Procedures: 01/14/2018 Open reduction and internal fixation of right intertrochanteric femur fracture by Dr. Bernard Lawrence Reason for Admission: Simeon Michaels Jr. is a 58 year-old man status post OLT (2011) for HCV & ETOH cirrhosis with post-transplant course complicated by recurrent HCV and cutaneous squamous cell carcin omas, chronic immunosuppression, chronic systolic heart failure due to non-ischemic cardiomy opathy, HTN, stage 3 CKD, smoker, who was transferred from [facility] after grou nd level fall found to have right femur fracture. Hospital Course by Problem (with follow-up plan/instructions): # Right femur fracture s/p 01/14 OR+IFof rightfemur intertrochanteric fracture. Given deconditioning, limited mobility was arranged for SNF rehab stay. Pain control with : -Not onacetaminophen given liver disease and elevated LFT -Oxycodone 5-10 mg po q4h prn moderate pain -Aggressive Bowel regimen --DVT ppx with Enoxaparin for 6 weeks -fu in orthopedics clinic in 2 weeks for staple removal # Hypertensive urgency: improved # HTN #Dizziness The patient's normal blood pressure regimen ismetop xl 100 mg daily, amlodipine 10 and la six 20 mg daily, however ran out of these medications a few weeks prior to arrival. BP on admission 238/148. Has hx of going into hypertensive urgency per review of Cardiology note s when he doesn't take his medications. Likely exacerbated by methamphetamine use. --Pain control as above --change metoprolol succinate to coreg 12.5 mg bid, BP much better --Not on Lisiniopril as high risk of angioedema with sirolimus --Amlodipine 10 mg daily -Hold home dose lasix as not eating/drinking much and mildly elevated BUN-->may be reasonab le to resume this in coming days as he further recovers from his fracture/surgery. # OLT (2011) # Chronic immunosuppression Has hx of OLT years ago and is on sirolimus and mycophenolate. Reports medication complia nce. Followed by [facility] Hepatology. Uncertain why LFTs were elevated on arrival, perhaps t his may be some sequela of methamphetamine abuse? Subsequently downtrending. --sirolimus trough on admission was only 2.9, was 8 yesterday, most likely non compliant. --Continue sirolimus 3 mg daily, mycophenolate 500 mg po bid # Chronic systolic heart failure # Non-ischemic dilated cardiomyopathy Has known systolic heart failure by TTE in 08/2016 with EF 35-40% with moderate concentric L VH and global hypokinesis (suspect due to HTN). No signs of volume overload currently. N ot clearwhy not on aldactone (although given mild BUN elevation will not start here), last seen by outpatient cardiology in 11/2016 with plan to return in 3-4 months which it looks li ke didn't happen. --hold home dose of lasix as above -- Recommend outpatient follow up with cardiology when further recovered # Stage 2 or 3 CKD Baseline Cr of 1.1-1.5. eGFR has been >60 here with normal lytes. Normal creatinine on discharge. # Active smoker --Encouraged smoking cessation # Constipation:Reports chronic difficulty with constipation. Ileus noted on abdominal Xra y. Treated with aggressive Bowel regimen here and subsequently had bowel movement. --Continue bowel regimen as ordered # methamphetamine use disorder: Seen here by [facility] (addiction medicine) team here in cons ultation. Patient reported intermittent use and did not feel that he would need to engage in formal treatment. Would encourage to consider further. Given substance use history goal wou ld be to wean of opioid analgesics prior to discharge from SNF. # Recurrent HCV Confirmed recurrent HCV --Defer to Hepatology as outpatient # AAA: Noted to have prominent aortic pulsation on exam, and 11/17/17 abdominal US noted "The abdom inal aorta measures up to 34 x 30 mm with atherosclerotic plaque." -Should have abdominal aorta ultrasound every 3 yearswhile in the 3-3.9cm range, then mor e frequent. Pertinent Findings: Labs: Lab Results Component Value Date WBC 5.03 01/18/2018 HB 11.7 01/18/2018 HCT 34.5 01/18/2018 PLT 129 01/18/2018 MCV 89.4 01/18/2018 RDW 42.8 01/18/2018 Lab Results Component Value Date NA 133 01/18/2018 K 3.9 01/18/2018 CL 94 01/18/2018 BICARB 34 01/18/2018 BUN 23 01/18/2018 EGFRAFRICAN >60 01/18/2018 EGFRNONAFR >60 01/18/2018 CR 0.97 01/18/2018 GLU 110 01/18/2018 CA 8.8 01/18/2018 ANIONGAP 5 01/18/2018 ANIONALBCOR 8 01/18/2018 Liver Tests: Last 72 hours (or 3 results) Recent Labs 01/16/18 0557 01/17/18 0601 01/18/18 0622 AST 64* 86* 93* ALT 61* 70* 74* TBILI 0.7 0.5 0.4 AP 69 72 74 ALB 2.8* 2.7* 2.6* TP 6.4 6.5 6.6 Imagin01/15/2018 Abdominal Xray Multiple loops of gas-filled, predominantly large bowel loops are present throughout the ab domen, likely representing ileus. There is a large right colonic stool burden. Surgical clip s are present within the right upper quadrant. A right hip dynamic screw is partially visual ized, as is a right intertrochanteric femoral fracture which appears in near anatomic alignm ent on this limited evaluation. 01/13/2018 Xray Right Femur No significant interval change in the appearance of the right primarily intertrochanteric m inimally displaced femoral fracture. Consultants (service/attending name): Orthopedics: Dr. Howard [facility] (addiction medicine): Brigid Harris [employer] Discharge Medications: Medication List START taking these medications bisacodyl 10 mg Supp Commonly known as: DULCOLAX Unwrap and insert 1 suppository rectally once daily as needed for constipation. calcium carbonate chewable 200 mg elemental (500 mg total salt) Chew Commonly known as: TUMS Chew and swallow 1 tablet every two hours as needed. calcium-vitamin D 500 mg(1,250mg) -200 unit Tab Commonly known as: OS-TURNER 500 + D Take 1 tablet by mouth two times daily. carvedilol 12.5 mg Tab Commonly known as: COREG Take 1 tablet by mouth two times daily with meals. Administer with food. enoxaparin 40 mg/0.4 mL Syrg Commonly known as: LOVENOX Inject 0.4 mL under the skin (SUBC) once daily in the evening. Indications: venous thromboe mbolism prophylaxis magnesium citrate Soln Take 296 mL by mouth once daily as needed (second for constipation). melatonin 3 mg Tab Take 1 tablet by mouth once daily at bedtime. mineral oil Enem Commonly known as: FLEET MINERAL OIL Insert 133 mL rectally once daily as needed (constipation). multivitamin-minerals Tab Take 1 tablet by mouth once daily. oxyCODONE (immediate release) 5 mg Tab Commonly known as: ROXICODONE Take 1-2 tablets by mouth every four hours as needed for moderate pain. polyethylene glycol 17 gram Pwpk Commonly known as: MIRALAX Mix 1 packet and take orally two times daily. potassium chloride SR 20 mEq Tbtq Commonly known as: K-DUR Take 1 tablet by mouth once daily. prochlorperazine 5 mg Tab Commonly known as: COMPAZINE Take 1-2 tablets by mouth every six hours as needed. Max dose: 40 mg/day senna-docusate 8.6-50 mg Tab Commonly known as: SENOKOT S Take 2 tablets by mouth two times daily. simethicone chew 80 mg Chew Commonly known as: MYLICON Chew and swallow 1 tablet three times daily as needed for bloating. CHANGE how you take these medications amLODIPine 10 mg Tab Commonly known as: NORVASC Take 1 tablet by mouth once daily. What changed: medication strength how much to take CONTINUE taking these medications albuterol 90 mcg/actuation Hfaa Commonly known as: PROVENTIL, VENTOLIN Inhale 1-2 puffs by mouth every six hours as needed. Indications: Bronchospastic Pulmonary Disease FLUoxetine 10 mg Cap Commonly known as: PROZAC Take 10 mg by mouth once daily. mycophenolate 250 mg Cap Commonly known as: CELLCEPT Take 2 capsules by mouth two times daily. Take with food. Indications: Prevention of Liver Transplant Rejection sirolimus 1 mg Tab Commonly known as: RAPAMUNE Take 3 tablets by mouth once daily in the morning. Indications: s/p liver transplant STOP taking these medications furosemide 20 mg Tab Commonly known as: LASIX metoprolol succinate 100 mg Tb24 Commonly known as: TOPROL-XL Rationale for Medication Changes: Metoprolol changed to carvedilol for better antihypertensive effect. Furosemide held due to mildly increased BUN Allergies: Allergies Allergen Reactions Morphine Nausea Code Status: Full POLST completed: no Additional Instructions: Condition on Discharge Good Diet Instructions Diet Regular Regular diet- There are no restrictions to your diet. You may eat or drink whatever you p refer, though healthy food choices are recommended. Restrictions- Please follow a diet with the following restrictions: 2 gram daily sodium res triction - Activity Instructions Activity No activity restrictions: Weight bearing as tolerated. Discharge Destination - Selection Complete Service Request Status Selected Specialties Address Phone Number Fax Number Ramses Hessbrojose Baptiste [facility] [address] [place] [id number] [facility] No service has been selected for the patient. Social Care Services No service has been selected for the patient. Follow Up: Future Appointments Provider Department Dept Phone Center 01/27/2018 9:45 AM Ed Hall Dermatology Surgery at [facility] [phone] Dermatolog y 02/02/2018 2:30 PM Liane Rodgers Orthopaedics at [facility] [phone] Orthopedics 02/16/2018 11:20 AM Dayron Donato Liver Transplant at [facility] 2nd Floor [phone] GASTROENT ERO 03/09/2018 11:20 AM Bernard Lawrence Orthopaedics at [facility] [phone] Orthopedics Contact information for after-discharge care Discharge Destination [facility] . Specialty: [facility] Facility Contact information [address] [place] [phone] Discharge Physical Exam: Last 24 hour min/max Temp: 36.8 C (98.2 F) Temp Min: 36.7 C (98.1 F) Max: 37 C (98.6 F) Pulse: 69 Pulse Min: 69 Max: 81 Resp: 14 Resp Min: 14 Max: 16 BP: 149/80 BP Min: 132/77 Max: 152/81 SpO2: 91 % SpO2 Min: 91 % Max: 98 % Body mass index is 20.65 kg/m. General: Alert, pleasant conversant HEENT/Neck: Chronic right facial weakness. Primarily right facial rash/swelling attributed to previous squamous cell ca--tx Cardiovascular: RRR now MRG Pulmonary: CTA no WRR Abdominal: Soft normal BS, nontender Skin: Incisional dressing CDI Musculoskeletal: DP pulses intact. No sig edema. Saul Kulkarni MD Attending Physician Clinical Hospitalist Services [facility] Pager [phone] I spent 45 minutes in the care of this patient while coordinating discharge today. documented in this encounter Medications at Time of Discharge + + + +---------+ + + | Medication | Sig | Dispensed | Refills | Start | End Date | | | | | | Date | | + + + +---------+ + + | albuterol 90 | Inhale 1-2 puffs by | | 0 | | | | mcg/actuation | mouth every six | | | | | | inhalation HFA | hours as needed. | | | | | | aerosol | Indications: | | | | | | inhalerIndications: | Bronchospastic | | | | | | bronchospastic | Pulmonary Disease | | | | | | pulmonary disease | | | | | | + + + +---------+ + + | calcium-vitamin D | Take 1 tablet by | 60 | 0 | 01/19/20 | | | 500 mg(1,250mg) -200 | mouth two times | tablet | | 18 | | | unit oral tablet | daily. | | | | | + + + +---------+ + + | | Take 1 tablet by | 30 | 0 | 01/20/20 | | | multivitamin-mineral | mouth once daily. | tablet | | 18 | | | s oral tablet | | | | | | + + + +---------+ + + | polyethylene | Mix 1 packet and | 60 | 0 | 01/19/20 | | | glycol 17 gram oral | take orally two | packet | | 18 | | | powder in packet | times daily. | | | | | + + + +---------+ + + documented as of this encounter Progress Notes Marimar Bhatti, AGACNP - 01/18/2018 12:16 PM PDTFormatting of this note might be differe nt from the original. Orthopaedic Surgery Progress Note Patient: /Age: MRN: Date: Admission Date: Hospital Day: Orthopaedic Attending: Simeon Michaels Jr. 1960 58 y.o. [id number] 01/18/2018 01/13/2018 5 Bernard Lawrence MD Diagnosis(es): 1. Right intertrochanteric femur fracture Orthopaedic Procedure(s) & Date(s): 1. ORIF right proximal femur 01/14/18 Subjective: Narrative: Simeon is a 58 y.o. gentleman with the above diagnoses and procedures Overnight Events: NAEO Objective: Last Vitals: Pulse: 69 BP: 149/80 Temp: 36.8 C (98.2 F) SpO2: 91 % Resp: 14 24 Hour Vital Min/Max: Pulse Av.4 Min: 69 Max: 81 BP Min: 117/64 Max: 238/148 Temp Av.9 C (98.4 F) Min: 36.7 C (98.1 F) Max: 37 C (98.6 F) SpO2 Av.3 % Min: 91 % Max: 98 % Resp Av.9 Min: 14 Max: 16 Intake/Output Summary (Last 24 hours) at 01/18/18 1216 Last data filed at 01/18/18 1115 Gross per 24 hour Intake 1776 ml Output 1875 ml Net -99 ml Recent Laboratory Data: Lab Results Component Value Date WBC 5.03 01/18/2018 HCT 34.5 01/18/2018 CR 0.97 01/18/2018 Exam: General: appropriate, oriented Respiratory: regular, appropriate effort, not auscultated RLE: Inspection: Dressing c/d/I, replaced with New PInk mepilex, vanessa intact no drainage or s ign of infection Palpation: Tender to palpation around incision/site of injury Motor: Fires TA, GSC, EHL, FHL, quads, hamstrings, hip flexors. Sensory: SILT medial, lateral, dorsal, 1st dorsal web space, plantar. Vascular: Digits WWP. Cap refill <2 sec. Assessment & Plan: Simeon Michaels Jr. is a 58 y.o.M with the diagnoses/procedures listed above. Care Protocol Items: 1. Immobility due to illness 1. PT/OT: Ordered 2. Weight bearing: weight bearing as tolerated, right lower extremity 3. ROM: as tolerated, motion encouraged 2. VTE prophylaxis: high risk, lovenox SC 40mg daily or by weight, sequential compression d evices To discharge on Lovenox 3. Acute pain from illness: oral analgesia and IV analgesia, wean as possible 4. Infectious Disease: ceFAZolin, for 24 hours perioperatively 5. Special Concerns: case managment for discharge planning 6. Disposition: OK to d/c from ortho perspective 7. Orthopaedic Follow-up: SNF staff ok to remove vanessa 2-3 weeks post op (01/28/2018) Follow up ~ [address] Lawrence or Dr Wilde Orthopedic Surgeon in [place] 8. Anticipated Discharge: Today MARYSOL Saldivar Orthopaedic Trauma Surgery Pager [phone] Nicole Robb MD - 01/17/2018 9:51 AM PDT HOSPITALIST INPATIENT PROGRESS NOTE Hospital Day: 4 Attending Physician: NICOLE OBREGON MD Interval Hx: No ON events Had small BM01/15/18 Patient denies chest pain/SOB/vomiting/. Constipation+, mild abdominal pain Patient was not happy as he just worked with patient and was taking a nap. Didn't answered much. Said he knows he needs to have BM. Physical Exam: Last 24 hour min/max Temp: 36.5 C (97.7 F) (Simultaneous filing. User may not have seen previous data.) Temp Min: 36.4 C (97.5 F) Max: 37.9 C (100.2 F) Pulse: 67 Pulse Min: 67 Max: 83 Resp: 16 (Simultaneous filing. User may not have seen previous data.) Resp Min: 14 Max: 1 6 BP: 151/83 BP Min: 117/64 Max: 163/79 SpO2: 97 % SpO2 Min: 95 % Max: 100 % Body mass index is 26.41 kg/m. General : Alert and oriented x 3. HEENT: Moist oral mucosa. CVS: S1 & S2 regular, rhythm. No murmurs. R/S: No crepts or ronchi. GI: soft, Mild tender on right lower abdomen, bowel sounds+. MANAGER ORACLE: Grossly nonfocal. Moving all four extremities. Extremities: No peripheral edema. Skin: No rashes Psych: cooperative I have reviewed patient current medication list. Medications Scheduled Medication Dose/Rate, Route, Frequency Last Action amLODIPine (NORVASC) tablet 10 mg 10 mg, oral, DAILY Given: 01/17 818 calcium-vitamin D (OS-TURNER 500 + D) 500 mg(1,250mg) -200 unit 1 tablet 1 tablet, oral, BID Given: 01/17 818 carvedilol (COREG) tablet 12.5 mg 12.5 mg, oral, BID W/MEALS Given: 01/17 730 enoxaparin (LOVENOX) injection 40 mg 40 mg, subQ, QPM Given: 01/16 2027 furosemide (LASIX) tablet 20 mg 20 mg, oral, Q48H Given: 01/16 1130 melatonin tablet 3 mg 3 mg, oral, HS Given: 01/17 2028 multivitamin-minerals 1 tablet 1 tablet, oral, DAILY Given: 01/17 818 mycophenolate (CELLCEPT) tablet 500 mg 500 mg, oral, BID (MMF) Given: 01/17 818 pneumococcal (13-rebecca) conjugate vaccine (PREVNAR 13) injection 0.5 mL 0.5 mL, IM, ONE TIME IN THE MORNING Ordered polyethylene glycol (MIRALAX) packet 17 g 17 g, oral, BID Given: 01/17 818 potassium chloride SR (K-DUR) tablet 20 mEq 20 mEq, oral, DAILY Given: 06/17 0818 senna-docusate (SENOKOT S) 8.6-50 mg 2 tablet 2 tablet, oral, BID Given: 01/17 08 sirolimus (RAPAMUNE) tablet 3 mg 3 mg, oral, DAILY Given: 01/17 0730 PRN Medication Dose/Rate, Route, Frequency Last Action bisacodyl (DULCOLAX) suppository 10 mg 10 mg, rect, DAILY PRN Given: 01/15 1146 bisacodyl EC (DULCOLAX) tablet 5 mg 5 mg, oral, DAILY PRN Ordered hydrALAZINE (APRESOLINE) injection 10 mg 10 mg, IV, Q4H PRN Given: 01/15 010 magnesium citrate liquid 296 mL 296 mL, oral, DAILY PRN Ordered nicotine polacrilex (COMMIT) lozenge 2 mg 2 mg, oral, Q1H PRN Ordered ondansetron (ZOFRAN) tablet 8 mg 8 mg, oral, Q12H PRN Given: 01/14 021 oxyCODONE (immediate release) (ROXICODONE) tablet 5-10 mg 5 mg, oral, Q4H PRN Given: 01/17 09 polyethylene glycol (MIRALAX) packet 34 g 34 g, oral, TID PRN Given: 01/14 1617 prochlorperazine (COMPAZINE) injection 5-10 mg 5 mg, IV, Q6H PRN Given: 01/14 0419 prochlorperazine (COMPAZINE) tablet 5-10 mg 5-10 mg, oral, Q6H PRN Ordered simethicone chew (MYLICON) tablet 80 mg 80 mg, oral, TID PRN Given: 01/16 0218 Labs reviewed in [facility] CBC with diff last 72 hours (or 3 results) Recent Labs 01/15/18 0548 01/16/18 0557 01/17/18 0601 WBC 10.20 8.25 6.06 HB 13.4* 13.0* 12.2* HCT 39.2* 38.3* 35.3* PLT 125* 133* 119* Chemistries: Last 72 Hours (or 3 results): Recent Labs 01/15/18 0548 01/16/18 0557 01/17/18 0601 NA 134* 135* 133* K 3.8 3.6 3.9 CL 97 98 95* BICARB 29 30 33* BUN 20 23* 29* CR 1.01 0.93 1.03 GLU 124* 116* 116* CA 8.3* 8.5* 8.9 PO4 -- -- 3.6 Imaging: no new imaging Assessment/Plan: carried fwd from yesterday's note and updated 58Mstatus post OLT (2011) for HCV &ETOH cirrhosis with post-transplant course complicat ed by recurrent HCV and cutaneous squamous cell carcinomas, chronic immunosuppression, chron ic systolic heart failure due to non-ischemic cardiomyopathy, HTN, stage 3 CKD, &tobacco a buse, meth usewho was transferred from OSH early 01/13 with R femur fracture s/p ground-lev el fall. # Right femur fracture s/p 01/14 OR+IFof rightfemur intertrochanteric fracture. --Appreciate Orthopedic Surgery assistance --Pain control: -Not onacetaminophen given liver disease and elevated LFT -Oxycodone 5-10 mg po q4h prn moderate pain -Aggressive Bowel regimen -needs SNF --DVT ppx with Enoxaparin for 6 weeks -fu in orthopedics clinic in 2 weeks # Hypertensive urgency: improved # HTN #Dizziness Normal blood pressure regimen ismetop xl 100 mg daily, amlodipine 10 and lasix 20 mg audrey y, however ran out of these medications few weeks prior to arrival. BP on admission 238/14 8. Has hx of going into hypertensive urgency per review of Cardiology notes when he doesn' t take his medications. Likely exacerbated by methamphetamine use. --Pain control as above --Hydral 10 mg iv PRNSBP >180 --change to coreg 12.5 mg bid, BP much better -Not on Lisiniopril as high risk of angioedema with sirolimus --Amlodipine 10 mg daily -Hold home dose lasix as not eating/drinking much and more negative # OLT (2011) # Chronic immunosuppression Has hx of OLT years ago and is on sirolimus and mycophenolate. Reports medication complia nce. Followed by [facility] Hepatology. Uncertain why LFTs were elevated on arrival, perhaps t his may be some sequela of methamphetamine abuse? Downtrending. improved --sirolimus trough on admission was only 2.9, was 8 yesterday, most likely non compliant. --Continue sirolimus 3 mg daily, mycophenolate 500 mg po bid # Chronic systolic heart failure # Non-ischemic dilated cardiomyopathy Has known systolic heart failure by TTE in 08/2016 with EF 35-40% with moderate concentric L VH and global hypokinesis (suspect due to HTN). No signs of volume overload currently. N ot clearwhy not on ACEI/ARB and aldactone, last seen by outpatient cardiology in 11/2016 wi th plan to return in 3-4 months which it looks like didn't happen. --Strict I/O, daily weight, discussed with RN as not done --hold home dose of furosemide as high BUN today -fu cardiology as outpatient # Stage 2 or 3 CKD Baseline Cr of 1.1-1.5. eGFR has been >60 here with normal lytes. normal creatinine --BMP daily --avoid nephrotoxins # Active smoker --Encouraged smoking cessation --Nicotine lozenges PRN # Constipation:aggressive Bowel regimen ordered.had small BM yesterday. Need more regim en . Soft abdomen, no rigidity so holding for imaging Enema today Lactulose prn # methamphetamine use disorder: Appreciate [facility] consultation # Recurrent HCV Confirmed recurrent HCV --Defer to Hepatology as outpatient # AAA: Noted to have prominent aortic pulsation on exam, and 11/17/17 abdominal US noted "The abdom inal aorta measures up to 34 x 30 mm with atherosclerotic plaque." -Should have abdominal aorta ultrasound every 3 yearswhile in the 3-3.9cm range, then mor e frequent. DVT ppx Lovenox Full code IP due to above Need SNF, CM working, hopeful discharge in next few day Nicole Obregon Pager: [phone] Asst claim taker Division of Hospital Medicine [facility] [employer] I spent more than 26 minutes [id number] with the patient of which greater than 50% was sp ent counseling the patient regarding future course and medications. Miryam Jorgensen MD - 01/17/2018 12:53 AM PDT Orthopaedic Surgery Progress Note Patient: /Age: MRN: Date: Admission Date: Hospital Day: Orthopaedic Attending: Simeon Michaels JrValentina 1960 58 y.o. [id number] 01/17/2018 01/13/2018 4 Bernard Lawrence MD Diagnosis(es): 1. Right intertrochanteric femur fracture Orthopaedic Procedure(s) & Date(s): 1. ORIF right proximal femur 01/14/18 Subjective: Narrative: Simeon is a 58 y.o. gentleman with the above diagnoses and procedures Overnight Events: NAEO Objective: Last Vitals: Pulse: 80 BP: 151/81 Temp: 37.3 C (99.1 F) SpO2: 95 % Resp: 16 24 Hour Vital Min/Max: Pulse Av.6 Min: 71 Max: 80 BP Min: 138/83 Max: 238/148 Temp Av.1 C (98.8 F) Min: 36.4 C (97.5 F) Max: 37.9 C (100.2 F) SpO2 Av.4 % Min: 95 % Max: 100 % Resp Av.6 Min: 14 Max: 16 Intake/Output Summary (Last 24 hours) at 01/17/18 0053 Last data filed at 01/16/18 2357 Gross per 24 hour Intake 1655 ml Output 1075 ml Net 580 ml Recent Laboratory Data: Lab Results Component Value Date WBC 8.25 01/16/2018 HCT 38.3 01/16/2018 CR 0.93 01/16/2018 Exam: General: appropriate, oriented Respiratory: regular, appropriate effort, not auscultated RLE: Dressings c/d/i Motor: Fires TA, GSC, EHL, FHL, quads, hamstrings, hip flexors. Sensory: SILT medial, lateral, dorsal, 1st dorsal web space, plantar. Vascular: Digits WWP. Cap refill <2 sec. Assessment & Plan: Simeon Michaels Jr. is a 58 y.o.M with the diagnoses/procedures listed above. Care Protocol Items: 1. Immobility due to illness 1. PT/OT: Ordered 2. Weight bearing: weight bearing as tolerated, right lower extremity 3. ROM: as tolerated, motion encouraged 2. VTE prophylaxis: high risk, lovenox SC 40mg daily or by weight, sequential compression d evices 3. Acute pain from illness: oral analgesia and IV analgesia, wean as possible 4. Infectious Disease: ceFAZolin, for 24 hours perioperatively 5. Special Concerns: case managment for discharge planning, guadarrama out POD#1 6. Disposition: OK to d/c from ortho perspective 7. Orthopaedic Follow-up: Please call the clinic to make a follow up appointment in [facility] 2 weeks with Yvette Sands 8. Anticipated Discharge: Pending PT MIRYAM ANN MD [phone] [facility] [address] [place] [address] iryam Ann MD - 01/16/2018 8:29 AM PDT Orthopaedic Surgery Progress Note Patient: /Age: MRN: Date: Admission Date: Hospital Day: Orthopaedic Attending: Simeon Michaels Jr. 1960 58 y.o. [id number] 01/16/2018 01/13/2018 3 Bernard Lawrence MD Diagnosis(es): 1. Right intertrochanteric femur fracture Orthopaedic Procedure(s) & Date(s): 1. ORIF right proximal femur 01/14/18 Subjective: Narrative: Simeon is a 58 y.o. gentleman with the above diagnoses and procedures Overnight Events: NAEO Objective: Last Vitals: Pulse: 76 BP: 151/90 Temp: 37 C (98.6 F) SpO2: 97 % Resp: 16 24 Hour Vital Min/Max: Pulse Av Min: 67 Max: 78 BP Min: 142/73 Max: 238/148 Temp Av.8 C (98.3 F) Min: 36.6 C (97.9 F) Max: 37 C (98.6 F) SpO2 Av.4 % Min: 97 % Max: 98 % Resp Av Min: 14 Max: 16 Intake/Output Summary (Last 24 hours) at 01/16/18 0829 Last data filed at 01/16/18 0809 Gross per 24 hour Intake 0 ml Output 1000 ml Net -1000 ml Recent Laboratory Data: Lab Results Component Value Date WBC 8.25 01/16/2018 HCT 38.3 01/16/2018 CR 0.93 01/16/2018 Exam: General: appropriate, oriented Respiratory: regular, appropriate effort, not auscultated RLE: Dressings c/d/i Motor: Fires TA, GSC, EHL, FHL, quads, hamstrings, hip flexors. Sensory: SILT medial, lateral, dorsal, 1st dorsal web space, plantar. Vascular: Digits WWP. Cap refill <2 sec. Assessment & Plan: Simeon Michaels Jr. is a 58 y.o.M with the diagnoses/procedures listed above. Care Protocol Items: 1. Immobility due to illness 1. PT/OT: Ordered 2. Weight bearing: weight bearing as tolerated, right lower extremity 3. ROM: as tolerated, motion encouraged 2. VTE prophylaxis: high risk, lovenox SC 40mg daily or by weight, sequential compression d evices 3. Acute pain from illness: oral analgesia and IV analgesia, wean as possible 4. Infectious Disease: ceFAZolin, for 24 hours perioperatively 5. Special Concerns: case managment for discharge planning, guadarrama out POD#1 6. Disposition: OK to d/c from ortho perspective 7. Orthopaedic Follow-up: Please call the clinic to make a follow up appointment in [facility] 2 weeks with Yvette Sands 8. Anticipated Discharge: Pending PT MIRYAM ANN MD [phone] [facility] [address] [place] [address] Nicole Robb MD - 01/16/2018 8:28 AM PDT HOSPITALIST INPATIENT PROGRESS NOTE Hospital Day: 3 Attending Physician: NICOLE OBREGON MD Interval Hx: No ON events Had small BM yesterday. Patient denies chest pain/SOB/Nausea/vomiting/diarrhea/dizziness Says he does still feel belly pain, but know he needs to have BM. Will take miralax Physical Exam: Last 24 hour min/max Temp: 37 C (98.6 F) Temp Min: 36.6 C (97.9 F) Max: 37 C (98.6 F) Pulse: 76 Pulse Min: 67 Max: 78 Resp: 16 Resp Min: 14 Max: 16 BP: 151/90 BP Min: 148/83 Max: 174/80 SpO2: 97 % SpO2 Min: 97 % Max: 98 % Body mass index is 19.44 kg/m. General : Alert and oriented x 3. Cooperative, chronically sick looking HEENT: Moist oral mucosa. CVS: S1 & S2 regular, rhythm. No murmurs. R/S: No crepts or ronchi. GI: soft, nondistended, mild diffuse tenderness like yesterday, bowel sounds+. MANAGER ORACLE: Grossly nonfocal. Moving all four extremities. Extremities: No peripheral edema. Skin: Chronic skin changes Psych: cooperative I have reviewed patient current medication list. Medications Scheduled Medication Dose/Rate, Route, Frequency Last Action amLODIPine (NORVASC) tablet 10 mg 10 mg, oral, DAILY Given: 01/17 812 enoxaparin (LOVENOX) injection 40 mg 40 mg, subQ, QPM Given: 01/15 2113 hydrALAZINE (APRESOLINE) tablet 10 mg 10 mg, oral, QID Given: 01/17 812 melatonin tablet 3 mg 3 mg, oral, HS Given: 01/15 2114 metoprolol succinate (TOPROL-XL) tablet 100 mg 100 mg, oral, DAILY Given: 01/17 812 mycophenolate (CELLCEPT) tablet 500 mg 500 mg, oral, BID (MMF) Given: 01/17 812 pneumococcal (13-rebecca) conjugate vaccine (PREVNAR 13) injection 0.5 mL 0.5 mL, IM, ONE TIME IN THE MORNING Ordered polyethylene glycol (MIRALAX) packet 17 g 17 g, oral, BID Given: 01/17 812 senna-docusate (SENOKOT S) 8.6-50 mg 2 tablet 2 tablet, oral, BID Given: 01/17 812 sirolimus (RAPAMUNE) tablet 3 mg 3 mg, oral, DAILY Given: 01/17 812 PRN Medication Dose/Rate, Route, Frequency Last Action bisacodyl (DULCOLAX) suppository 10 mg 10 mg, rect, DAILY PRN Given: 01/15 1146 bisacodyl EC (DULCOLAX) tablet 5 mg 5 mg, oral, DAILY PRN Ordered hydrALAZINE (APRESOLINE) injection 10 mg 10 mg, IV, Q4H PRN Given: 01/15 010 HYDROmorphone (DILAUDID) injection 0.2 mg 0.2 mg, IV, Q6H PRN Ordered magnesium citrate liquid 296 mL 296 mL, oral, DAILY PRN Ordered nicotine polacrilex (COMMIT) lozenge 2 mg 2 mg, oral, Q1H PRN Ordered ondansetron (ZOFRAN) tablet 8 mg 8 mg, oral, Q12H PRN Given: 01/14 021 oxyCODONE (immediate release) (ROXICODONE) tablet 5-10 mg 5 mg, oral, Q4H PRN Given: 01/16 08 polyethylene glycol (MIRALAX) packet 34 g 34 g, oral, TID PRN Given: 01/14 161 prochlorperazine (COMPAZINE) injection 5-10 mg 5 mg, IV, Q6H PRN Given: 01/14 041 prochlorperazine (COMPAZINE) tablet 5-10 mg 5-10 mg, oral, Q6H PRN Ordered simethicone chew (MYLICON) tablet 80 mg 80 mg, oral, TID PRN Given: 01/16 0218 Labs reviewed in [facility] CBC with diff last 72 hours (or 3 results) Recent Labs 01/14/18 0604 01/15/18 0548 01/16/18 0557 WBC 7.40 10.20 8.25 HB 14.1 13.4* 13.0* HCT 40.9* 39.2* 38.3* PLT 116* 125* 133* Chemistries: Last 72 Hours (or 3 results): Recent Labs 01/14/18 0604 01/14/18 0936 01/15/18 0548 01/16/18 0557 NA 136 -- 134* 135* K 3.8 -- 3.8 3.6 CL 101 -- 97 98 BICARB 30 -- 29 30 BUN 24* -- 20 23* CR 1.05 -- 1.01 0.93 GLU 114* 94 124* 116* CA 8.6 -- 8.3* 8.5* Imaging: KUB reviewed: high stool burden Assessment/Plan: carried fwd from yesterday's note and updated 58Mstatus post OLT (2011) for HCV &ETOH cirrhosis with post-transplant course complicat ed by recurrent HCV and cutaneous squamous cell carcinomas, chronic immunosuppression, chron ic systolic heart failure due to non-ischemic cardiomyopathy, HTN, stage 3 CKD, &tobacco a buse, meth use who was transferred from OSH early 01/13 with R femur fracture s/p ground-leve l fall. # Right femur fracture s/p 01/14 OR+IF of rightfemur intertrochanteric fracture. --Appreciate Orthopedic Surgery assistance --Pain control: -Not on acetaminophen given liver disease and elevated LFT -Oxycodone 5-10 mg po q4h prn moderate pain -Aggressive Bowel regimen -stop intravenous dilaudid -needs SNF --DVT ppx with Enoxaparin for 6 weeks -fu in orthopedics clinic in 2 weeks # Hypertensive urgency # HTN #Dizziness Normal blood pressure regimen ismetop xl 100 mg daily, amlodipine 10 and lasix 20 mg audrey y, however ran out of these medications few weeks prior to arrival. BP on admission 238/14 8. Has hx of going into hypertensive urgency per review of Cardiology notes when he doesn' t take his medications. Likely exacerbated by methamphetamine use. --Pain control as above --Hydral 10 mg iv PRNSBP >180 --change to coreg 12.5 mg bid from metop from tomorrow as already got metop -Not on Lisiniopril as high risk of angioedema with sirolimus --metoprolol XL daily today --Amlodipine 10 mg daily -start lasix 20 mg alt day (home dose alt day) # OLT (2011) # Chronic immunosuppression Has hx of OLT years ago and is on sirolimus and mycophenolate. Reports medication complia nce. Followed by [facility] Hepatology. Uncertain why LFTs were elevated on arrival, perhaps t his may be some sequela of methamphetamine abuse? Downtrending. improved --sirolimus trough on admission was only 2.9, was 8 yesterday, most likely non compliant. --Continue sirolimus 3 mg daily, mycophenolate 500 mg po bid # Chronic systolic heart failure # Non-ischemic dilated cardiomyopathy Has known systolic heart failure by TTE in 08/2016 with EF 35-40% with moderate concentric L VH and global hypokinesis (suspect due to HTN). No signs of volume overload currently. N ot clearwhy not on ACEI/ARB and aldactone, last seen by outpatient cardiology in 11/2016 wi th plan to return in 3-4 months which it looks like didn't happen. --Strict I/O, daily weight, discussed with RN as not done --will start home dose of furosemide -fu cardiology as outpatient # Stage 2 or 3 CKD Baseline Cr of 1.1-1.5. eGFR has been >60 here with normal lytes. normal creatinine --BMP daily --avoid nephrotoxins # Active smoker --Encouraged smoking cessation --Nicotine lozenges PRN # Constipation: aggressive Bowel regimen ordered.had small BM yesterday. Need more regime n . If after BM slope tender might do CT A/P. Soft abdomen, no rigidity so holding for imagi ng # methamphetamine use disorder --Appreciate IMPACT consultation # Recurrent HCV Confirmed recurrent HCV --Defer to Hepatology as outpatient # AAA: Noted to have prominent aortic pulsation on exam, and 11/17/17 abdominal US noted "The abdom inal aorta measures up to 34 x 30 mm with atherosclerotic plaque." -Should have abdominal aorta ultrasound every 3 yearswhile in the 3-3.9cm range, then mor e frequent. DVT ppx Lovenox Full code IP due to above Need SNF, CM working, hopeful discharge on Thursday Nicole Obregon Pager: [phone] Asst claim taker Division of Hospital Medicine [facility] [employer] I spent more than 38 minutes [id number] with the patient of which greater than 50% was sp ent counseling the patient regarding future course and medications. Discussed with RN and naeem lay Nicole Robb MD - 0 01/15/2018 9:41 AM PDT HOSPITALIST INPATIENT PROGRESS NOTE Hospital Day: 2 Attending Physician: NICOLE OBREGON MD Interval Hx: ON BP in 180, got 1 dose of IVhydralazine BP in 150 now.c/o dizziness, hasn't come out pf bed. Says constipated for weeks. Doesn't know when his last bM was. Has decided not to do meth a ny more. Does it 1/month as gives him motivation? Patient denies chest pain/ SOB/ Nausea/ vomiting/diarrhea. Feels pain at hip is in good co ntrol, but also hasn't done much. Physical Exam: Last 24 hour min/max Temp: 37.1 C (98.8 F) Temp Min: 36.2 C (97.2 F) Max: 37.1 C (98.8 F) Pulse: 80 Pulse Min: 65 Max: 83 Resp: 16 Resp Min: 10 Max: 20 BP: (!) 159/96 BP Min: 142/73 Max: 185/101 SpO2: 96 % SpO2 Min: 95 % Max: 100 % Body mass index is 19.44 kg/m. General : Alert and oriented x 3. Cooperative, chronically ill appearing HEENT: Moist oral mucosa. CVS: S1 & S2 regular, rhythm. HENRY+. R/S: No crepts or ronchi. GI: soft, nondistended, nontender, bowel sounds+. Prominent aortic pulsation+ MANAGER ORACLE: Grossly nonfocal. Moving all four extremities. Extremities: No peripheral edema. Skin: No rashes, scars+ Psych: cooperative I have reviewed patient current medication list. Medications Scheduled Medication Dose/Rate, Route, Frequency Last Action amLODIPine (NORVASC) tablet 10 mg 10 mg, oral, DAILY Given: 01/15 605 ceFAZolin IV 2 gram in dextrose (RTU) 0 g, 0 mL/hr, IV, Q8H Stopped: 01/16 244 enoxaparin (LOVENOX) injection 40 mg 40 mg, subQ, QPM Ordered hydrALAZINE (APRESOLINE) tablet 10 mg 10 mg, oral, QID Given: 01/14 2135 metoprolol succinate (TOPROL-XL) tablet 100 mg 100 mg, oral, DAILY Given: 01/14 1757 mycophenolate (CELLCEPT) tablet 500 mg 500 mg, oral, BID (MMF) Given: 01/14 1757 pneumococcal (13-rebecca) conjugate vaccine (PREVNAR 13) injection 0.5 mL 0.5 mL, IM, ONE TIME IN THE MORNING Ordered polyethylene glycol (MIRALAX) packet 17 g 17 g, oral, DAILY Ordered senna-docusate (SENOKOT S) 8.6-50 mg 2 tablet 2 tablet, oral, BID Given: 01/15 1924 sirolimus (RAPAMUNE) tablet 3 mg 3 mg, oral, DAILY Given: 01/14 1354 PRN Medication Dose/Rate, Route, Frequency Last Action bisacodyl (DULCOLAX) suppository 10 mg 10 mg, rect, DAILY PRN Ordered hydrALAZINE (APRESOLINE) injection 10 mg 10 mg, IV, Q4H PRN Given: 01/15 0107 HYDROmorphone (DILAUDID) injection 0.5-1 mg 0.5 mg, IV, Q6H PRN Given: 01/14 1128 melatonin tablet 3 mg 3 mg, oral, HS PRN Ordered nicotine polacrilex (COMMIT) lozenge 2 mg 2 mg, oral, Q1H PRN Ordered ondansetron (ZOFRAN) tablet 8 mg 8 mg, oral, Q12H PRN Given: 01/14 0213 oxyCODONE (immediate release) (ROXICODONE) tablet 5-10 mg 10 mg, oral, Q4H PRN Given: 01/01 5 0605 polyethylene glycol (MIRALAX) packet 34 g 34 g, oral, TID PRN Given: 01/14 1617 prochlorperazine (COMPAZINE) injection 5-10 mg 5 mg, IV, Q6H PRN Given: 01/14 0419 prochlorperazine (COMPAZINE) tablet 5-10 mg 5-10 mg, oral, Q6H PRN Ordered Labs reviewed in [facility] CBC with diff last 72 hours (or 3 results) Recent Labs 01/13/18 0502 01/14/18 0604 01/15/18 0548 WBC 7.81 7.40 10.20 HB 14.5 14.1 13.4* HCT 42.2 40.9* 39.2* PLT 129* 116* 125* NEUTROPERC 78.9* -- -- LYMPHPERC 10.2* -- -- MONOPERC 10.0* -- -- BASOPERC 0.4 -- -- EOSPERC 0.1* -- -- Chemistries: Last 72 Hours (or 3 results): Recent Labs 01/13/18 0502 01/14/18 0604 01/14/18 0936 01/15/18 0548 NA 137 136 -- 134* K 3.5 3.8 -- 3.8 CL 102 101 -- 97 BICARB 24 30 -- 29 BUN 22* 24* -- 20 CR 1.14 1.05 -- 1.01 GLU 102* 114* 94 124* CA 8.6 8.6 -- 8.3* MG 2.0 -- -- -- Imaging: no new imaging Assessment/Plan: carried fwd from yesterday's note and updated 58Mstatus post OLT (2011) for HCV &ETOH cirrhosis with post-transplant course complicat ed by recurrent HCV and cutaneous squamous cell carcinomas, chronic immunosuppression, chron ic systolic heart failure due to non-ischemic cardiomyopathy, HTN, stage 3 CKD, &tobacco a buse, meth use who was transferred from OSH early 01/13 with R femur fracture s/p ground-leve l fall. # Right femur fracture Mechanical [place]. s/p 01/14 OR+IF of rightfemur intertrochanteri c fracture. --Appreciate Orthopedic Surgery assistance --Pain control: -Not on acetaminophen given liver disease -Oxycodone 5-10 mg po q4h prn moderate pain - Aggressive Bowel regimen -reduce intravenous dilaudid, only in case needs for therapy, plan to stop it tomorrow --PT/OT ordered --DVT ppx with Enoxaparin for 6 weeks # Hypertensive urgency # HTN #Dizziness Normal blood pressure regimen ismetop xl 100 mg daily, amlodipine 10 and lasix 20 mg audrey y, however ran out of these medications few weeks prior to arrival. BP on admission 238/14 8. Has hx of going into hypertensive urgency per review of Cardiology notes when he doesn' t take his medications. Likely exacerbated by methamphetamine use. --Pain control as above --Hydral 10 mg iv PRNSBP >180 --Hydralazine 10 mg po 4 times a day until amlodipine has had a chance to reach steady stat e (likely DC later today) --metoprolol XL daily --Amlodipine 10 mg daily -Emphasized importance of BP control to patient # OLT (2011) # Chronic immunosuppression Has hx of OLT years ago and is on sirolimus and mycophenolate. Reports medication complia nce. Followed by [facility] Hepatology. Uncertain why LFTs were elevated on arrival, perhaps t his may be some sequela of methamphetamine abuse? Downtrending. improved --Repeat LFTs daily --If worsening consider hepatology consultation --Sirolimus trough daily --NOTE: sirolimus trough on admission was only 2.9, was 8 yesterday, most likely non compli ant. --Continue sirolimus 3 mg daily, mycophenolate 500 mg po bid # Chronic systolic heart failure # Non-ischemic dilated cardiomyopathy Has known systolic heart failure by TTE in 08/2016 with EF 35-40% with moderate concentric L VH and global hypokinesis (suspect due to HTN). No signs of volume overload currently. N ot clearwhy not on ACEI/ARB and aldactone, last seen by outpatient cardiology in 11/2016 wi th plan to return in 3-4 months which it looks like didn't happen. --Strict I/O, daily weight --will start home dose of furosemide probably tomorrow as c/o dizziness today --Hold on ahmet/arb, aldactone for now, fu with cardiology outpatient to start as patient has not been compliant with medications. # Stage 2 or 3 CKD Baseline Cr of 1.1-1.5. eGFR has been >60 here with normal lytes. --BMP daily --avoid nephrotoxins # Active smoker --Encouraged smoking cessation --Nicotine lozenges PRN # methamphetamine use disorder --Appreciate IMPACT consultation --thinks he is done using it for now # Recurrent HCV Confirmed recurrent HCV --Defer to Hepatology as outpatient # AAA: Noted to have prominent aortic pulsation on exam, and 11/17/17 abdominal US noted "The abdom inal aorta measures up to 34 x 30 mm with atherosclerotic plaque." -Should have abdominal aorta ultrasound every 3 years while in the 3-3.9cm range, then more frequent. # Constipation: aggressive Bowel regimen ordered. DVT ppx Lovenox Full code IP due to above Physical therapy/OT, Nicole Obregon Pager: [phone] Asst claim taker Division of Hospital Medicine [facility] I spent more than 38 minutes [id number] with the patient of which greater than 50% was sp ent counseling the patient regarding future course and medications. Xin, Michelle Hernandez MD - 01/14/2018 7:29 AM PDT HOSPITALIST INPATIENT PROGRESS NOTE Hospital Day:1 Attending Physician: Michelle Marin MD 24 hour events/Subjective: Underwent uncomplicated open reduction and internal fixation of right femur intertrochanteric fracture this AM, minimal EBL per ortho resident signout. Doi ng ok when I saw him this afternoon, pain there but not unbearable. Had just eaten lunch, n o chest pain or dyspnea. Noted no BM in several days. Medications: I reviewed current medications & administrations. Physical Exam: Last 24 hour min/max Temp: 36.7 C (98.1 F) Temp Min: 36.6 C (97.9 F) Max: 36.9 C (98.4 F) Pulse: 110 Pulse Min: 56 Max: 110 Resp: 16 Resp Min: 16 Max: 16 BP: 149/79 BP Min: 149/79 Max: 181/90 SpO2: 98 % SpO2 Min: 97 % Max: 100 % Body mass index is 19.44 kg/m. Intake/Output Summary (Last 24 hours) at 01/14/18 0700 Last data filed at 01/14/18 0557 Gross per 24 hour Intake 1680 ml Output 1155 ml Net 525 ml General Appearance: Chronically ill appearing man in NAD. Respiratory: Reduced breath sounds throughout, no crackles Cardiovascular: RRR, nl S1/S2, II/ HENRY throughout Gastrointestinal: +BS, soft, nontender, nondistended. Prominent aortic pu lsation. Extremities: Warm & well perfused. No clubbing, cyanosis or alaina a. Skin: Scattered scabs, scars. Neuro: Alert and appropriate, no focal deficits. Labs/Imaging/EKG: I have reviewed new data available in the electronic medical record. Nota ble findings include: Stable lytes, improved LFTs. CBC stable. Continues to have mild thro mbocytopenia but count over 100. Sirolimus level pending along with HIV, RPR. HBV neg. Re viewed 11/17/17 abdominal US which noted "The abdominal aorta measures up to 34 x 30 mm with atherosclerotic plaque." Assessment and Plan: 58M status post OLT (2011) for HCV & ETOH cirrhosis with post-transplant course complicated by recurrent HCV and cutaneous squamous cell carcinomas, chronic immunosuppression, chronic systolic heart failure due to non-ischemic cardiomyopathy, HTN, stage 3 CKD, & tobacco abus e who was transferred from OSH early 01/13 with R femur fracture s/p ground-level fall. # Right femur fracture Mechanical fall [place] a [place]. s/p 01/14 open reduction and internal fixation of right femur intertrochanteric fracture. --Appreciate Orthopedic Surgery assistance --Pain control: -DC'd acetaminophen given liver disease -Oxycodone 5-10 mg po q4h prn moderate pain -Dilaudid 0.5-1 mg iv q6h prn severe pain -Bowel regimen --BP control as below --PT/OT ordered --Enoxaparin DVT prophylaxis started this PM per orthopedic preference, Need to clarify le ngth of treatment # Hypertensive urgency # HTN Normal blood pressure regimen is metop xl 100 mg daily, amlodipine 10 and lasix 20 mg daily , however ran out of these medications a few days prior to arrival. BP on admission 238/14 8. Has hx of going into hypertensive urgency per review of Cardiology notes when he doesn' t take his medications. Likely exacerbated by methamphetamine use. --Pain control as above --Hydral 10 mg iv PRN SBP >180 --Hydralazine 10 mg po 4 times a day until amlodipine has had a chance to reach steady stat e (likely DC tomorrow) --Metop 25 mg po q6h transitioned back to home metoprolol XL 01/14 --Amlodipine 10 mg daily -Emphasized importance of BP control to patient # OLT (2011) # Chronic immunosuppression Has hx of OLT years ago and is on sirolimus and mycophenolate. Reports medication complia nce. Followed by [facility] Hepatology. Uncertain why LFTs were elevated on arrival, perhaps th is may be some sequela of methamphetamine abuse? Downtrending. --Repeat LFTs daily --If worsening consider hepatology consultation (confirmed with them 01/13 that they do not have to follow just for post-transplant status) --Sirolimus trough daily --NOTE: sirolimus trough on admission was only 2.9, and today is 01/14. Need to confirm wit h patient he is compliant. --Continue sirolimus 3 mg daily, mycophenolate 500 mg po bid # Chronic systolic heart failure # Non-ischemic dilated cardiomyopathy Has known systolic heart failure by TTE in 08/2016 with EF 35-40% with moderate concentric L VH and global hypokinesis (suspect due to HTN). No signs of volume overload currently. No t clear why not on ACEI/ARB and aldactone, last seen by outpatient cardiology in 11/2016 with plan to return in 3-4 months which it looks like didn't happen. --Strict I/O, daily weight --Hold furosemide, resume tomorrow if post-op renal function normal --Changed metop succinate to metop tartrate 25 mg po q6h while here --Hold on ahmet/arb, aldactone for now, but would consider starting AHMET-I tomorrow if his Cr is stable # Stage 2 or 3 CKD Baseline Cr of 1.1-1.5. eGFR has been >60 here with normal lytes. --BMP daily --avoid nephrotoxins # Active smoker --Encouraged smoking cessation --Nicotine lozenges PRN # methamphetamine use disorder --Appreciate IMPACT consultation # Recurrent HCV Confirmed recurrent HCV --Defer to Hepatology as outpatient # AAA: Noted to have prominent aortic pulsation on exam, and 11/17/17 abdominal US noted "The abdom inal aorta measures up to 34 x 30 mm with atherosclerotic plaque." -Should have abdominal aorta ultrasound every 3 years while in the 3-3.9cm range, then more frequent. #Diet: Regular #VTE Prophylaxis: Lovenox prophylactic dosing per ortho #Code Status: full Dispo: This patient requires ongoing inpatient care due to >2 midnights for hip fracture an d recovery. PT consult pending, will likely need SNF on discharge. MICHELLE MARIN MD [employer] [facility] Hospitalist Service Division of Hospital Medicine [facility] [phone] signed by Michelle Marin MD at 01/14/2018 4:34 PM Michelle Betancourt MD - 01/13/2018 3:36 PM PDT HOSPITALIST INPATIENT PROGRESS NOTE Hospital Day:0 Attending Physician: Michelle Marin MD 24 hour events/Subjective: Admitted this morning by Dr. Mackenzie who gave me verbal signout . I reviewed his note and history with patient. This morning he denied complaints besides l eg pain and a dry mouth. When asked about the positive amphetamine screen he noted smoking m ethamphetamine, never IV use, last used 2 days ago. Discussed desire to quit, and willingnes s to speak with impact team. Medications: I reviewed current medications & administrations. Physical Exam: Last 24 hour min/max Temp: 36.8 C (98.2 F) Temp Min: 36.6 C (97.9 F) Max: 36.8 C (98.2 F) Pulse: 81 Pulse Min: 81 Max: 122 Resp: 18 Resp Min: 18 Max: 18 BP: (!) 158/94 BP Min: 158/94 Max: 238/148 SpO2: 98 % SpO2 Min: 92 % Max: 98 % Body mass index is 20.03 kg/m. Intake/Output Summary (Last 24 hours) at 01/13/18 0700 Last data filed at 01/13/18 0521 Gross per 24 hour Intake 0 ml Output 520 ml Net -520 ml General Appearance: Chronically ill appearing man in NAD. Respiratory: Reduced breath sounds throughout, no crackles Cardiovascular: RRR, nl S1/S2, II/ HENRY throughout Gastrointestinal: +BS, soft, nontender, nondistended. Extremities: Warm & well perfused. No clubbing, cyanosis or edema. Skin: Scattered scabs, scars Neuro: Alert and appropriate, no focal deficits. Labs/Imaging/EKG: I have reviewed new data available in the electronic medical record. Nota ble findings include: Normal lytes, creatinine at baseline. AST/ALT up above baseline. Sir olimus level 2.9. UDS + for oipiods & amphetamines. CBC notable only for platelet count of 129. TTE 2017 (Care Everywhere) Conclusions Summary 1. Normal left ventricular size with moderate concentric left ventricular hypertrophy. There is a moderate global hypokinesis of the left ventricle. Overall, left ventricular significant is moderately decreased. LVEF is 35-40%. 2. Mildly thickened and calcified trileaflet aortic valve with adequate opening. There is a mild aortic valve insufficiency. 3. Mildly thickened and calcified mitral valve with a mild mitral valve regurgitation. 4. Mild mitral annular calcification. 5. Small circumferential pericardial effusion without cardiac tamponade. 6. Normal right-sided pressure. 7. Normal IVC with normal respiratory collapse. 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 # Right femur fracture Mechanical [place]. As per Dr. Mackenzie's first risk assessment, no indication for further risk stratification, however we opted to delay surgery today until BP is better controlled. --Orthopedic Surgery following along, I discussed him with them today --NPO again at midnight --Pain control: -Tylenol 1000 mg po tid -Oxycodone 5-10 mg po q4h prn moderate pain -Dilaudid 0.5-1 mg iv q6h prn severe pain -Bowel regimen --BP control as below --Hold on PT/OT until postop --DVT prophylaxis postop per orthopedic preference # Hypertensive urgency # HTN Normal blood pressure regimen is metop xl 100 mg daily, amlodipine 10 and lasix 20 mg daily , however ran out of these medications a few days prior to arrival. BP on admission 238/148 . Has hx of going into hypertensive urgency per review of Cardiology notes when he doesn't take his medications. Likely exacerbated by methamphetamine use. --Pain control as above --Hydral 10 mg iv PRN SBP >180 --Hydralazine 10 mg po 4 times a day until amlodipine has had a chance to work --Metop 25 mg po q6h --Amlodipine 10 mg daily # OLT (2011) # Chronic immunosuppression Has hx of OLT years ago and is on sirolimus and mycophenolate. Reports medication complian ce. Followed by [facility] Hepatology. Uncertain why LFTs were elevated on arrival, perhaps this may be some sequela of methamphetamine abuse? --Repeat LFTs in a.m. --If worsening consider hepatology consultation (confirmed with them 01/13 that they do not have to follow just for post-transplant status) --Sirolimus level in AM --Continue sirolimus 3 mg daily, mycophenolate 500 mg po bid # Chronic systolic heart failure # Non-ischemic dilated cardiomyopathy Has known systolic heart failure by TTE in 01/2017 with EF 35-40% with moderate concentric L VH and global hypokinesis (suspect due to HTN). No signs of volume overload currently. Not clear why he isn't on ACEI/ARB and aldactone, last seen by outpatient cardiology in 11/2016 with plan to return in 3-4 months which it looks like didn't happen. --Strict I/O, daily weight --Hold lasix --Changed metop succinate to metop tartrate 25 mg po q6h while here --Hold on ahmet/arb, aldactone for now, but would consider starting during hospitalization if his Cr is stable # Recurrent HCV Confirmed recurrent HCV with Hepatology discussing treating it on follow-up. --Defer to Hepatology as outpatient # Stage 3 CKD Current Cr pending Baseline Cr of 1.1-1.5. --BMP daily --avoid nephrotoxins # Active smoker --Encouraged smoking cessation # methamphetamine use disorder --Appreciate IMPACT consultation #Diet: NPO after midnight #VTE Prophylaxis: heparin today x1 then dc'd for likely OR tomorrow #Code Status: full #Disposition: >2 midnights for hip fracture and recovery. Will likely need SNF on discharg e MICHELLE MARIN MD [employer] Clinical Hospitalist Service Division of Hospital Medicine [facility] [phone] I spent more than 40 minutes in the care of this patient of which greater than 50% was spen t counseling the patient regarding surgical timing, importance of drug abstinence and coordi nating care with IMPACT consult service, ortho GASTROENTEROLOGY PHYSICIAN & primary RN. Marimar Reed [facility] - 01/13/2018 10:48 AM P DT Orthopaedic Surgery Progress Note Date: 01/13/2018 Hospital Day: 0 Orthopaedic Attending: Destin Taylor MD Diagnosis(es): 1. Right nondisplaced intertrochanteric femur fracture Orthopaedic Procedure(s) & Date(s): /none to date Assessment & Plan: Simeon Michaels Jr. is a 58 y.o.M with the orthopaedic diagnoses and procedures listed above. Today's specific concerns include: OR cancelled for today, per [facility] not medically cleared NPO at midnight for OR tomorrow Care Protocol Items: 1. Activity: 1. Weight bearing: non-weight bearing, right lower extremity 2. ROM: as tolerated, motion encouraged 2. VTE prophylaxis: high risk, heparin 5000u SC TID, sequential compression devices 3. Pain management: oral analgesia and IV analgesia, wean as possible 4. Antibiotics: ceFAZolin, for 24 hours perioperatively 5. Special Concerns: IMPACT team to offer support 6. Dressings/Drains: none 7. Dispo/Discharge: Continue acute inpatient care 8. Follow-up: Will schedule closer to discharge, ~ 2-3 wk post op follow up lydia Abdul Subjective: "Well, I've been better." Objective: 24 hour Vitals: Temp Av.7 C (98.1 F) Min: 36.6 C (97.9 F) Max: 36.8 C (98.2 F) Systolic (24hrs), Av , Min:169 , Max:238 Diastolic (24hrs), Av, Min:88, Max:148 Pulse Av.7 Min: 87 Max: 122 SpO2 Av.8 % Min: 92 % Max: 98 % Lab Results Component Value Date HCT 42.2 01/13/2018 HCT 45.7 12/24/2017 HCT 42.4 11/23/2017 Lab Results Component Value Date WBC 7.81 01/13/2018 HB 14.5 01/13/2018 HCT 42.2 01/13/2018 PLT 129 01/13/2018 MCV 88.8 01/13/2018 RDW 44.3 01/13/2018 Lab Results Component Value Date NA 137 01/13/2018 K 3.5 01/13/2018 CL 102 01/13/2018 BICARB 24 01/13/2018 BUN 22 01/13/2018 EGFRAFRICAN >60 01/13/2018 EGFRNONAFR >60 01/13/2018 CR 1.14 01/13/2018 GLU 102 01/13/2018 CA 8.6 01/13/2018 ANIONGAP 11 01/13/2018 ANIONALBCOR 12 01/13/2018 Intake/Output Summary (Last 24 hours) at 01/13/18 1048 Last data filed at 01/13/18 1031 Gross per 24 hour Intake 255 ml Output 820 ml Net -565 ml 01/13/2018 IMAGING EXAM: FEMUR 2 VIEWS RIGHT HISTORY: pre op. COMPARISON: 01/12/2018 FINDINGS: Redemonstration of a minimally displaced comminuted primarily intertrochanteric fracture of the right proximal femur. The femoral head continues to articulate with the acetabulum. No additional acute fracture is identified. The pubic symphysis is intact. The right sacroiliac joint is patent. There is no knee joint effusion. IMPRESSION: No significant interval change in the appearance of the right primarily intertrochanteric m inimally displaced femoral fracture. Exam: General: appropriate, oriented RIGHT LOWER EXTREMITY: Inspection: unremarkable Palpation: unremarkable Motor: fires tibialis anterior, fires gastrocsoleus complex, fires EHL, fires FHL,fires quads, fires hamstrings, fires hip flexors Sensory: grossly intact to light touch, medial, lateral, dorsal, 1st dorsal web space, p lantar Vascular: palpable dorsalis pedis, palpable posterior tibial, digits warm & well per fused, capillary refill < 2 seconds Marimar Bhatti [facility] Orthopaedic Trauma Surgery Pager [phone] documented in t his encounter Plan of Treatment +--------+---------+ + + + | Date | Type | Specialty | Care Team | Description | +--------+---------+ + + + | 06/17/ | Office | Otolaryngology | Shlomo Roach MD | | | 2019 | Visit | | [address] | | | | | | [place] [facility], | | | | | | [place] [address] | | | | | | [phone] | | | | | | | | +--------+---------+ + + + documented as of this encounter Procedures + +--------+ + + + | Procedure Name | Priori | Date/Time | Associated Diagnosis | Comments | | | ty | | | | + +--------+ + + + | CBC (HEMOGRAM) ONLY | Routin | 01/18/2018 | | Results for this | | | e | 6:22 AM | | procedure are in the | | | | PDT | | results section. | + +--------+ + + + | COMPLETE METABOLIC | Routin | 01/18/2018 | | Results for this | | SET | e | 6:22 AM | | procedure are in the | | (NA,K,CL,CO2,BUN,CRE | | PDT | | results section. | | AT,GLUC,CA,AST,ALT,B | | | | | | YAYO TOTAL,ALK | | | | | | PHOS,ALB,PROT TOTAL) | | | | | + +--------+ + + + | CBC ONLY | Routin | 01/18/2018 | | Results for this | | | e | 6:22 AM | | procedure are in the | | | | PDT | | results section. | + +--------+ + + + | CBC (HEMOGRAM) ONLY | Routin | 01/17/2018 | | Results for this | | | e | 6:01 AM | | procedure are in the | | | | PDT | | results section. | + +--------+ + + + | COMPLETE METABOLIC | Routin | 01/17/2018 | | Results for this | | SET | e | 6:01 AM | | procedure are in the | | (NA,K,CL,CO2,BUN,CRE | | PDT | | results section. | | AT,GLUC,CA,AST,ALT,B | | | | | | YAYO TOTAL,ALK | | | | | | PHOS,ALB,PROT TOTAL) | | | | | + +--------+ + + + | CBC ONLY | Routin | 01/17/2018 | | Results for this | | | e | 6:01 AM | | procedure are in the | | | | PDT | | results section. | + +--------+ + + + | PHOSPHORUS, PLASMA | Routin | 01/17/2018 | | Results for this | | | e | 6:01 AM | | procedure are in the | | | | PDT | | results section. | + +--------+ + + + | VITAMIN D, | Routin | 01/16/2018 | | Results for this | | 25-HYDROXY, SERUM | e | 11:26 AM | | procedure are in the | | | | PDT | | results section. | + +--------+ + + + | CBC (HEMOGRAM) ONLY | Routin | 01/16/2018 | | Results for this | | | e | 5:57 AM | | procedure are in the | | | | PDT | | results section. | + +--------+ + + + | SIROLIMUS | Routin | 01/16/2018 | | Results for this | | QUANTITATION, WHOLE | e | 5:57 AM | | procedure are in the | | BLOOD | | PDT | | results section. | + +--------+ + + + | COMPLETE METABOLIC | Routin | 01/16/2018 | | Results for this | | SET | e | 5:57 AM | | procedure are in the | | (NA,K,CL,CO2,BUN,CRE | | PDT | | results section. | | AT,GLUC,CA,AST,ALT,B | | | | | | YAYO TOTAL,ALK | | | | | | PHOS,ALB,PROT TOTAL) | | | | | + +--------+ + + + | CBC ONLY | Routin | 01/16/2018 | | Results for this | | | e | 5:57 AM | | procedure are in the | | | | PDT | | results section. | + +--------+ + + + | X-RAY ABDOMEN 1 VIEW | Routin | 01/15/2018 | | Results for this | | | e | 5:01 PM | | procedure are in the | | | | PDT | | results section. | + +--------+ + + + | CBC (HEMOGRAM) ONLY | Routin | 01/15/2018 | | Results for this | | | e | 5:48 AM | | procedure are in the | | | | PDT | | results section. | + +--------+ + + + | INR | Routin | 01/15/2018 | | Results for this | | | e | 5:48 AM | | procedure are in the | | | | PDT | | results section. | + +--------+ + + + | SIROLIMUS | Routin | 01/15/2018 | | Results for this | | QUANTITATION, WHOLE | e | 5:48 AM | | procedure are in the | | BLOOD | | PDT | | results section. | + +--------+ + + + | COMPLETE METABOLIC | Routin | 01/15/2018 | | Results for this | | SET | e | 5:48 AM | | procedure are in the | | (NA,K,CL,CO2,BUN,CRE | | PDT | | results section. | | AT,GLUC,CA,AST,ALT,B | | | | | | YAYO TOTAL,ALK | | | | | | PHOS,ALB,PROT TOTAL) | | | | | + +--------+ + + + | CBC ONLY | Routin | 01/15/2018 | | Results for this | | | e | 5:48 AM | | procedure are in the | | | | PDT | | results section. | + +--------+ + + + | PROCEDURE NOTE | Routin | 01/14/2018 | | Results for this | | | e | 7:58 PM | | procedure are in the | | | | PDT | | results section. | + +--------+ + + + | CAPILLARY BLOOD | Routin | 01/14/2018 | Closed fracture of | Results for this | | GLUCOSE (NO CHG), | e | 9:36 AM | trochanter of right | procedure are in the | | POC | | PDT | femur, initial | results section. | | | | | encounter (HCC) | | + +--------+ + + + | X-RAY HIP 2 VIEWS | Urgent | 01/14/2018 | | Results for this | | RIGHT | | 8:55 AM | | procedure are in the | | | | PDT | | results section. | + +--------+ + + + | X-RAY FLUOROSCOPY IN | Urgent | 01/14/2018 | | Results for this | | OR > 1 HOUR | | 8:55 AM | | procedure are in the | | | | PDT | | results section. | + +--------+ + + + | PROCEDURE NOTE | Routin | 01/14/2018 | | Results for this | | | e | 8:39 AM | | procedure are in the | | | | PDT | | results section. | + +--------+ + + + | HIP DHS | Urgent | 01/14/2018 | right hip fracture | | | | | 7:27 AM | | | | | Surgic | PDT | | | | | al | | | | + +--------+ + + + | CBC (HEMOGRAM) ONLY | Routin | 01/14/2018 | | Results for this | | | e | 6:04 AM | | procedure are in the | | | | PDT | | results section. | + +--------+ + + + | SIROLIMUS | Routin | 01/14/2018 | | Results for this | | QUANTITATION, WHOLE | e | 6:04 AM | | procedure are in the | | BLOOD | | PDT | | results section. | + +--------+ + + + | COMPLETE METABOLIC | Routin | 01/14/2018 | | Results for this | | SET | e | 6:04 AM | | procedure are in the | | (NA,K,CL,CO2,BUN,CRE | | PDT | | results section. | | AT,GLUC,CA,AST,ALT,B | | | | | | YAYO TOTAL,ALK | | | | | | PHOS,ALB,PROT TOTAL) | | | | | + +--------+ + + + | CBC ONLY | Routin | 01/14/2018 | | Results for this | | | e | 6:04 AM | | procedure are in the | | | | PDT | | results section. | + +--------+ + + + | CARDIOLOGY | | 01/14/2018 | | Results for this | | | | 12:00 AM | | procedure are in the | | | | PDT | | results section. | + +--------+ + + + | HEPATITIS B SURFACE | Routin | 01/13/2018 | | Results for this | | AG W/REFLEX IF | e | 1:59 PM | | procedure are in the | | INDICATED | | PDT | | results section. | + +--------+ + + + | HIV-1,2 AB/HIV-1 P24 | Routin | 01/13/2018 | | Results for this | | AG SCRN | e | 1:59 PM | | procedure are in the | | | | PDT | | results section. | + +--------+ + + + | RPR SERUM | Routin | 01/13/2018 | | Results for this | | | e | 1:59 PM | | procedure are in the | | | | PDT | | results section. | + +--------+ + + + | HEPATITIS B SURFACE | Routin | 01/13/2018 | | Results for this | | AB QUAL, SERUM | e | 1:59 PM | | procedure are in the | | | | PDT | | results section. | + +--------+ + + + | HEPATITIS B CORE AB, | Routin | 01/13/2018 | | Results for this | | SERUM | e | 1:59 PM | | procedure are in the | | | | PDT | | results section. | + +--------+ + + + | X-RAY FEMUR 2 VIEWS | Urgent | 01/13/2018 | | Results for this | | RIGHT | | 6:15 AM | | procedure are in the | | | | PDT | | results section. | + +--------+ + + + | CBC AND AUTO DIFF | Routin | 01/13/2018 | | Results for this | | | e | 5:02 AM | | procedure are in the | | | | PDT | | results section. | + +--------+ + + + | INR | Routin | 01/13/2018 | | Results for this | | | e | 5:02 AM | | procedure are in the | | | | PDT | | results section. | + +--------+ + + + | CBC, WITH | Routin | 01/13/2018 | | Results for this | | DIFFERENTIAL | e | 5:02 AM | | procedure are in the | | | | PDT | | results section. | + +--------+ + + + | SIROLIMUS | Routin | 01/13/2018 | | Results for this | | QUANTITATION, WHOLE | e | 5:02 AM | | procedure are in the | | BLOOD | | PDT | | results section. | + +--------+ + + + | COMPLETE METABOLIC | Routin | 01/13/2018 | | Results for this | | SET | e | 5:02 AM | | procedure are in the | | (NA,K,CL,CO2,BUN,CRE | | PDT | | results section. | | AT,GLUC,CA,AST,ALT,B | | | | | | YAYO TOTAL,ALK | | | | | | PHOS,ALB,PROT TOTAL) | | | | | + +--------+ + + + | APTT (ACT. PART. | Routin | 01/13/2018 | | Results for this | | THROMBO TIME) | e | 5:02 AM | | procedure are in the | | | | PDT | | results section. | + +--------+ + + + | ANTIBODY SCREEN | Routin | 01/13/2018 | | Results for this | | | e | 5:02 AM | | procedure are in the | | | | PDT | | results section. | + +--------+ + + + | TYPE AND SCREEN | Routin | 01/13/2018 | | Results for this | | | e | 5:02 AM | | procedure are in the | | | | PDT | | results section. | + +--------+ + + + | ABO & RH TYPE | Routin | 01/13/2018 | | Results for this | | | e | 5:02 AM | | procedure are in the | | | | PDT | | results section. | + +--------+ + + + | MAGNESIUM, PLASMA | Routin | 01/13/2018 | | Results for this | | | e | 5:02 AM | | procedure are in the | | | | PDT | | results section. | + +--------+ + + + | OPIATE CONFIRM FOR | Routin | 01/13/2018 | | Results for this | | POC USE ONLY | e | 4:58 AM | | procedure are in the | | | | PDT | | results section. | + +--------+ + + + | DRUG | Routin | 01/13/2018 | | Results for this | | SCREEN,URINE;W/CONFI | e | 4:58 AM | | procedure are in the | | RM | | PDT | | results section. | + +--------+ + + + | 12 LEAD ECG | Routin | 01/13/2018 | | Results for this | | | e | 4:50 AM | | procedure are in the | | | | PDT | | results section. | + +--------+ + + + documented in this encounter Results CBC (HEMOGRAM) ONLY (01/18/2018 6:22 AM PDT) + + + + + + | Component | Value | Ref Range | Performed | Pathologist | | | | | At | Signature | + + + + + + | WHITE CELL | 5.03 | 3.50 - 10.80 | [facility] | | | COUNT | | K/cu mm | LABORATORY | | | | | | SERVICES, | | | | | | CORE | | + + + + + + | RED CELL | 3.86 (L) | 4.50 - 6.00 | [facility] | | | COUNT | | M/cu mm | LABORATORY | | | | | | SERVICES, | | | | | | CORE | | + + + + + + | HEMOGLOBIN | 11.7 (L) | 13.5 - 17.5 | [facility] | | | | | g/dL | LABORATORY | | | | | | SERVICES, | | | | | | CORE | | + + + + + + | HEMATOCRIT | 34.5 (L) | 41.0 - 53.0 % | [facility] | | | | | | LABORATORY | | | | | | SERVICES, | | | | | | CORE | | + + + + + + | MCV | 89.4 | 80.0 - 100.0 fL | [facility] | | | | | | LABORATORY | | | | | | SERVICES, | | | | | | CORE | | + + + + + + | MCHC | 33.9 | 32.0 - 36.0 | [facility] | | | | | g/dL | LABORATORY | | | | | | SERVICES, | | | | | | CORE | | + + + + + + | RDW SD | 42.8 | 35.1 - 46.3 fL | [facility] | | | | | | LABORATORY | | | | | | SERVICES, | | | | | | CORE | | + + + + + + | PLATELET | 129 (L) | 150 - 400 K/cu | [facility] | | | COUNT | | mm | LABORATORY | | | | | | SERVICES, | | | | | | CORE | | + + + + + + | MPV | 9.2 (L) | 9.7 - 12.3 fL | [...] MCHC, PLT, IG% and IG# effective | [facility] | | 12/10/2017 | LABORATORY | | | DELMIS OJEDA | + + + + + + + + | Performing | Address | City/State/Zipcode | Phone Number | | Organization | | | | + + + + + | [facility] | [address] | [place] [address] | | | DELMIS OJEDA | [address] | | | + + + + + COMPLETE METABOLIC SET (NA,K,CL,CO2,BUN,CREAT,GLUC,CA,AST,ALT,BILI TOTAL,ALK PHOS,ALB,PROT TOTAL) (01/18/2018 6:22 AM PDT) + +---------+ + + + | Component | Value | Ref Range | Performed | Pathologist | | | | | At | Signature | + +---------+ + + + | GLUCOSE, | 110 (H) | 70 - 99 mg/dL | [facility] | | | PLASMA | | | LABORATORY | | | (LAB) | | | SERVICES, | | | | | | CORE | | + +---------+ + + + | BUN, PLASMA | 23 (H) | 6 - 20 mg/dL | [facility] | | | (LAB) | | | LABORATORY | | | | | | SERVICES, | | | | | | CORE | | + +---------+ + + + | CREATININE | 0.97 | 0.70 - 1.30 | [facility] | | | PLASMA | | mg/dL | LABORATORY | | | (LAB) | | | SERVICES, | | | | | | CORE | | + +---------+ + + + | EGFR | >60 | >60 mL/min | [facility] | | | - | | | LABORATORY | | | SOMALI | | | SERVICES, | | | | | | CORE | | + +---------+ + + + | EGFR NON | >60 | >60 mL/min | [facility] | | | -AJE | | | LABORATORY | | | RICAN | | | SERVICES, | | | | | | CORE | | + +---------+ + + + | SODIUM, | 133 (L) | 136 - 145 | [facility] | | | PLASMA | | mmol/L | LABORATORY | | | (LAB) | | | SERVICES, | | | | | | CORE | | + +---------+ + + + | POTASSIUM, | 3.9 | 3.4 - 5.0 | [facility] | | | PLASMA | | mmol/L | LABORATORY | | | (LAB) | | | SERVICES, | | | | | | CORE | | + +---------+ + + + | CHLORIDE, | 94 (L) | 97 - 108 mmol/L | [facility] | | | PLASMA | | | LABORATORY | | | (LAB) | | | SERVICES, | | | | | | CORE | | + +---------+ + + + | TOTAL CO2, | 34 (H) | 21 - 32 mmol/L | [facility] | | | PLASMA | | | LABORATORY | | | (LAB) | | | SERVICES, | | | | | | CORE | | + +---------+ + + + | CALCIUM, | 8.8 | 8.6 - 10.2 | [facility] | | | PLASMA | | mg/dL | LABORATORY | | | (LAB) | | | SERVICES, | | | | | | CORE | | + +---------+ + + + | CALCIUM(ALB | 9.9 | 8.6 - 10.2 | [facility] | | | CORRECTED) | | mg/dL | LABORATORY | | | | | | SERVICES, | | | | | | CORE | | + +---------+ + + + | BILIRUBIN | 0.4 | 0.3 - 1.2 mg/dL | [facility] | | | TOTAL | | | LABORATORY | | | | | | SERVICES, | | | | | | CORE | | + +---------+ + + + | TOTAL | 6.6 | 6.4 - 8.2 g/dL | [facility] | | | PROTEIN, | | | LABORATORY | | | PLASMA | | | SERVICES, | | | (LAB) | | | CORE | | + +---------+ + + + | ALBUMIN, | 2.6 (L) | 3.5 - 4.7 g/dL | [facility] | | | PLASMA | | | LABORATORY | | | (LAB) | | | SERVICES, | | | | | | CORE | | + +---------+ + + + | ALK PHOS | 74 | 56 - 119 U/L | [facility] | | | | | | LABORATORY | | | | | | SERVICES, | | | | | | CORE | | + +---------+ + + + | AST(SGOT) | 93 (H) | <=41 U/L | [facility] | | | | | | LABORATORY | | | | | | SERVICES, | | | | | | CORE | | + +---------+ + + + | ALT (SGPT) | 74 (H) | <=60 U/L | [facility] | | | | | | LABORATORY | | | | | | SERVICES, | | | | | | CORE | | + +---------+ + + + | ANION GAP | 5 | 4 - 11 mmol/L | [facility] | | | | | | LABORATORY | | | | | | SERVICES, | | | | | | CORE | | + +---------+ + + + | ANION | 8 [...] the MDRD equation recommended by the | [facility] | | National Kidney Disease Education Program. [...] | + + + + + | [facility] | [address] | [place] [address] | | | DELMIS OJEDA | [address] | | | + + + + + CBC (HEMOGRAM) ONLY (01/17/2018 6:01 AM PDT) + + + + + + | Component | Value | Ref Range | Performed | Pathologist | | | | | At | Signature | + + + + + + | WHITE CELL | 6.06 | 3.50 - 10.80 | [facility] | | | COUNT | | K/cu mm | LABORATORY | | | | | | SERVICES, | | | | | | CORE | | + + + + + + | RED CELL | 3.94 (L) | 4.50 - 6.00 | [facility] | | | COUNT | | M/cu mm | LABORATORY | | | | | | SERVICES, | | | | | | CORE | | + + + + + + | HEMOGLOBIN | 12.2 (L) | 13.5 - 17.5 | [facility] | | | | | g/dL | LABORATORY | | | | | | SERVICES, | | | | | | CORE | | + + + + + + | HEMATOCRIT | 35.3 (L) | 41.0 - 53.0 % | [facility] | | | | | | LABORATORY | | | | | | SERVICES, | | | | | | CORE | | + + + + + + | MCV | 89.6 | 80.0 - 100.0 fL | [facility] | | | | | | LABORATORY | | | | | | SERVICES, | | | | | | CORE | | + + + + + + | MCHC | 34.6 | 32.0 - 36.0 | [facility] | | | | | g/dL | LABORATORY | | | | | | SERVICES, | | | | | | CORE | | + + + + + + | RDW SD | 43.5 | 35.1 - 46.3 fL | [facility] | | | | | | LABORATORY | | | | | | SERVICES, | | | | | | CORE | | + + + + + + | PLATELET | 119 (L) | 150 - 400 K/cu | [facility] | | | COUNT | | mm | LABORATORY | | | | | | SERVICES, | | | | | | CORE | | + + + + + + | MPV | 9.1 [...] MCHC, PLT, IG% and IG# effective | [facility] | | 12/10/2017 | LABORATORY | | | SERVICES, CORE | + + + + + + + + | Performing | Address | City/State/Zipcode | Phone Number | | Organization | | | | + + + + + | [facility] | [address] | [place] [address] | | | SERVICES, CORE | [address] | | | + + + + + COMPLETE METABOLIC SET (NA,K,CL,CO2,BUN,CREAT,GLUC,CA,AST,ALT,BILI TOTAL,ALK PHOS,ALB,PROT TOTAL) (01/17/2018 6:01 AM PDT) + +---------+ + + + | Component | Value | Ref Range | Performed | Pathologist | | | | | At | Signature | + +---------+ + + + | GLUCOSE, | 116 (H) | 70 - 99 mg/dL | [facility] | | | PLASMA | | | LABORATORY | | | (LAB) | | | SERVICES, | | | | | | CORE | | + +---------+ + + + | BUN, PLASMA | 29 (H) | 6 - 20 mg/dL | [facility] | | | (LAB) | | | LABORATORY | | | | | | SERVICES, | | | | | | CORE | | + +---------+ + + + | CREATININE | 1.03 | 0.70 - 1.30 | [facility] | | | PLASMA | | mg/dL | LABORATORY | | | (LAB) | | | SERVICES, | | | | | | CORE | | + +---------+ + + + | EGFR | >60 | >60 mL/min | [facility] | | | - | | | LABORATORY | | | SOMALI | | | SERVICES, | | | | | | CORE | | + +---------+ + + + | EGFR NON | >60 | >60 mL/min | [facility] | | | -JAE | | | LABORATORY | | | RICAN | | | SERVICES, | | | | | | CORE | | + +---------+ + + + | SODIUM, | 133 (L) | 136 - 145 | [facility] | | | PLASMA | | mmol/L | LABORATORY | | | (LAB) | | | SERVICES, | | | | | | CORE | | + +---------+ + + + | POTASSIUM, | 3.9 | 3.4 - 5.0 | [facility] | | | PLASMA | | mmol/L | LABORATORY | | | (LAB) | | | SERVICES, | | | | | | CORE | | + +---------+ + + + | CHLORIDE, | 95 (L) | 97 - 108 mmol/L | [facility] | | | PLASMA | | | LABORATORY | | | (LAB) | | | SERVICES, | | | | | | CORE | | + +---------+ + + + | TOTAL CO2, | 33 (H) | 21 - 32 mmol/L | [facility] | | | PLASMA | | | LABORATORY | | | (LAB) | | | SERVICES, | | | | | | CORE | | + +---------+ + + + | CALCIUM, | 8.9 | 8.6 - 10.2 | [facility] | | | PLASMA | | mg/dL | LABORATORY | | | (LAB) | | | SERVICES, | | | | | | CORE | | + +---------+ + + + | CALCIUM(ALB | 9.9 | 8.6 - 10.2 | [facility] | | | CORRECTED) | | mg/dL | LABORATORY | | | | | | SERVICES, | | | | | | CORE | | + +---------+ + + + | BILIRUBIN | 0.5 | 0.3 - 1.2 mg/dL | [facility] | | | TOTAL | | | LABORATORY | | | | | | SERVICES, | | | | | | CORE | | + +---------+ + + + | TOTAL | 6.5 | 6.4 - 8.2 g/dL | [facility] | | | PROTEIN, | | | LABORATORY | | | PLASMA | | | SERVICES, | | | (LAB) | | | CORE | | + +---------+ + + + | ALBUMIN, | 2.7 (L) | 3.5 - 4.7 g/dL | [facility] | | | PLASMA | | | LABORATORY | | | (LAB) | | | SERVICES, | | | | | | CORE | | + +---------+ + + + | ALK PHOS | 72 | 56 - 119 U/L | [facility] | | | | | | LABORATORY | | | | | | SERVICES, | | | | | | CORE | | + +---------+ + + + | AST(SGOT) | 86 (H) | <=41 U/L | [facility] | | | | | | LABORATORY | | | | | | SERVICES, | | | | | | CORE | | + +---------+ + + + | ALT (SGPT) | 70 (H) | <=60 U/L | [facility] | | | | | | LABORATORY | | | | | | SERVICES, | | | | | | CORE | | + +---------+ + + + | ANION GAP | 5 | 4 - 11 mmol/L | [facility] | | | | | | LABORATORY | | | | | | SERVICES, | | | | | | CORE | | + +---------+ + + + | ANION | 8 [...] the MDRD equation recommended by the | [facility] | | National Kidney Disease Education Program. [...] [facility] | [address] | [place] [address] | | | SERVICES, CORE | [address] | | | + + + + + PHOSPHORUS, PLASMA (01/17/2018 6:01 AM PDT) + +-------+ + + + | Component | Value | Ref Range | Performed | Pathologist | | | | | At | Signature | + +-------+ + + + | PHOSPHORUS, | 3.6 | 2.4 - 4.7 mg/dL | [facility] | | | PLASMA [...] | + + + + + | [facility] | [address] | [place] [address] | | | SERVICES, CORE | [address] | | | + + + + + VITAMIN D, 25-HYDROXY, SERUM (01/16/2018 11:26 AM PDT) + + + + + + | Component | Value | Ref Range | Performed | Pathologist | | | | | At | Signature | + + + + + + | VITAMIN D | 10.2 (L) | 30 - 80 ng/mL | [facility] | | | 25 HYDROXY | | | LABORATORY | | | | | | SERVICES, | | | | | | CORE | | + + + + + + + + | Specimen | + + | Blood - Blood | | (substance) | + + + + + | Narrative | Performed At | + + + | Reference Interval: 0-18years: Deficiency: <20 ng/mL | [facility] | | Optimum level: >or=20 ng/mL | LABORATORY | | >18years: Deficiency: <20 | [facility] | | ng/mL Insufficiency: 20-29 ng/mL | | | Optimum Level: 30-80 ng/mL High: | | | 81-150 ng/ml Toxic: >150 ng/mL | | + + + + + + + + | Performing | Address | City/State/Zipcode | Phone Number | | Organization | | | | + + + + + | [facility] | [address] | [place] [address] | | | DELMIS OJEDA | [address] | | | + + + + + CBC (HEMOGRAM) ONLY (01/16/2018 5:57 AM PDT) + + + + + + | Component | Value | Ref Range | Performed | Pathologist | | | | | At | Signature | + + + + + + | WHITE CELL | 8.25 | 3.50 - 10.80 | [facility] | | | COUNT | | K/cu mm | LABORATORY | | | | | | SERVICES, | | | | | | CORE | | + + + + + + | RED CELL | 4.27 (L) | 4.50 - 6.00 | [facility] [...] + + + + | HEMATOCRIT | 38.3 (L) | 41.0 - 53.0 % | [facility] | | | | | | LABORATORY | | | | | | SERVICES, | | | | | | CORE | | + + + + + + | MCV | 89.7 | 80.0 - 100.0 fL | [facility] | | | | | | LABORATORY | | | | | | SERVICES, | | | | | | CORE | | + + + + + + | MCHC | 33.9 | 32.0 - 36.0 | [facility] | | | | | g/dL | LABORATORY | | | | | | SERVICES, | | | | | | CORE | | + + + + + + | RDW SD | 44.3 | 35.1 - 46.3 fL | [facility] | | | | | | LABORATORY | | | | | | SERVICES, | | | | | | CORE | | + + + + + + | PLATELET | 133 (L)Comment: Few | 150 - 400 K/cu | [facility] | | | COUNT | platelet clumps present. | mm | LABORATORY | | | | Macroplatelets present. | | SERVICES, | | | | | | CORE | | + + + + + + | MPV | 8.9 (L) | 9.7 - 12.3 fL | [...] MCHC, PLT, IG% and IG# effective | [facility] | | 12/10/2017 | LABORATORY | | | SERVICES, CORE | + + + + + + + + | Performing | Address | City/State/Zipcode | Phone Number | | Organization | | | | + + + + + | [facility] | [address] | [place] [address] | | | SERVICES, CORE | [address] | | | + + + + + COMPLETE METABOLIC SET (NA,K,CL,CO2,BUN,CREAT,GLUC,CA,AST,ALT,BILI TOTAL,ALK PHOS,ALB,PROT TOTAL) (01/16/2018 5:57 AM PDT) + +---------+ + + + | Component | Value | Ref Range | Performed | Pathologist | | | | | At | Signature | + +---------+ + + + | GLUCOSE, | 116 (H) | 70 - 99 mg/dL | [facility] | | | PLASMA | | | LABORATORY | | | (LAB) | | | SERVICES, | | | | | | CORE | | + +---------+ + + + | BUN, PLASMA | 23 (H) | 6 - 20 mg/dL | [facility] | | | (LAB) | | | LABORATORY | | | | | | SERVICES, | | | | | | CORE | | + +---------+ + + + | CREATININE | 0.93 | 0.70 - 1.30 | [facility] | | | PLASMA | | mg/dL | LABORATORY | | | (LAB) | | | SERVICES, | | | | | | CORE | | + +---------+ + + + | EGFR | >60 | >60 mL/min | [facility] | | | - | | | LABORATORY | | | SOMALI | | | SERVICES, | | | | | | CORE | | + +---------+ + + + | EGFR NON | >60 | >60 mL/min | [facility] | | | -JAE | | | LABORATORY | | | RICAN | | | SERVICES, | | | | | | CORE | | + +---------+ + + + | SODIUM, | 135 (L) | 136 - 145 | [facility] | | | PLASMA | | mmol/L | LABORATORY | | | (LAB) | | | SERVICES, | | | | | | CORE | | + +---------+ + + + | POTASSIUM, | 3.6 | 3.4 - 5.0 | [facility] | | | PLASMA | | mmol/L | LABORATORY | | | (LAB) | | | SERVICES, | | | | | | CORE | | + +---------+ + + + | CHLORIDE, | 98 | 97 - 108 mmol/L | [facility] | | | PLASMA | | | LABORATORY | | | (LAB) | | | SERVICES, | | | | | | CORE | | + +---------+ + + + | TOTAL CO2, | 30 | 21 - 32 mmol/L | [facility] [...] +---------+ + + + | CALCIUM(ALB | 9.5 | 8.6 - 10.2 | [facility] | | | CORRECTED) | | mg/dL | LABORATORY | | | | | | SERVICES, | | | | | | CORE | | + +---------+ + + + | BILIRUBIN | 0.7 | 0.3 - 1.2 mg/dL | [facility] | | | TOTAL | | | LABORATORY | | | | | | SERVICES, | | | | | | CORE | | + +---------+ + + + | TOTAL | 6.4 | 6.4 - 8.2 g/dL | [facility] | | | PROTEIN, | | | LABORATORY | | | PLASMA | | | SERVICES, | | | (LAB) | | | CORE | | + +---------+ + + + | ALBUMIN, | 2.8 (L) | 3.5 - 4.7 g/dL | [facility] | | | PLASMA | | | LABORATORY | | | (LAB) | | | SERVICES, | | | | | | CORE | | + +---------+ + + + | ALK PHOS | 69 | 56 - 119 U/L | [facility] | | | | | | LABORATORY | | | | | | SERVICES, | | | | | | CORE | | + +---------+ + + + | AST(SGOT) | 64 (H) | <=41 U/L | [facility] | | | | | | LABORATORY | | | | | | SERVICES, | | | | | | CORE | | + +---------+ + + + | ALT (SGPT) | 61 (H) | <=60 U/L | [facility] | | | | | | LABORATORY | | | | | | SERVICES, | | | | | | CORE | | + +---------+ + + + | ANION GAP | 7 | 4 - 11 mmol/L | [facility] | | | | | | LABORATORY | | | | | | SERVICES, | | | | | | CORE | | + +---------+ + + + | ANION | 10 | 4 - 11 mmol/L | [facility] [...] the MDRD equation recommended by the | [facility] | | National Kidney Disease Education Program. [...] | + + + + + | [facility] | [address] | [place] [address] | | | SERVICES, CORE | [address] | | | + + + + + SIROLIMUS QUANTITATION, WHOLE BLOOD (01/16/2018 5:57 AM PDT) + +-------+ + + + | Component | Value | Ref Range | Performed | Pathologist | | | | | At | Signature | + +-------+ + + + | SIROLIMUS, | 10.2 | 4.0 - 12.0 | [facility] | | | WHOLE BLOOD | | ng/mL | LABORATORY | | | | | | SERVICES, | | | | | | SPECIAL IMM | | | | | | + COAG | | + +-------+ + + + + + | Specimen | + + | Blood - Blood | | (substance) | + + + + + | Narrative | Performed At | + + + | Test performed by immunoassay using [employer] Worker i2000. | [facility] | | Kidney transplant (in combination with Cyclosporine): 4-12 ng/mL | LABORATORY | | Toxic value: > 25 ng/mL Interpretive Data: A range of 12-20 ng/mL | SERVICES, | | has been suggested for liver transplant. Samples for analysis of | SPECIAL IMM + | | Sirolimus should be collected 30 minutes to 1 hour prior to the next | COAG | | dose so that the measured concentration of drug represents trough | | | levels. The optimal therapeutic range for a given patient may differ | | | from this suggested range based on the indication for therapy, | | | treatment phase (initiation or maintenance), use in combination with | | | other drugs, time of specimen collection relative to prior dose and/or | | | type of transplanted organ. | | + + + + + + + + | Performing | Address | City/State/Zipcode | Phone Number | | Organization | | | | + + + + + | [facility] | [address] | [place] [address] | | | SERVICESSPECIAL | [address] | | | | IMM + COAG | | | | + + + + + X-RAY ABDOMEN 1 VIEW (01/15/2018 5:01 PM PDT) + + | Specimen | + + | | + + + + + | Narrative | Performed At | + + + | EXAM: ABDOMEN 1 VIEW History: Right lower quadrant abdominal | [facility] | | pain Comparison: CT 10/09/2015 FINDINGS/IMPRESSION: Multiple | RADIOLOGY VOICE | | loops of gas-filled, predominantly large bowel loops are present | RECOGNITION 2 | | throughout the abdomen, likely representing ileus. There is a large | | | right colonic stool burden. Surgical clips are present within the | | | right upper quadrant. A right hip dynamic screw is partially | | | visualized, as is a right intertrochanteric femoral fracture which | | | appears in near anatomic alignment on this limited evaluation. I | | | have personally reviewed the images and, if necessary, edited the | | | report. I agree with the report as now presented. Final | | | signature: Vonda Corea MD 01/16/2018 10:29 AM Preliminary: | | | Gus Orozco MD Dictation initiated: Gus Orozco MD | | | 01/16/2018 2:45 AM | | + + + + + | Procedure Note | + + | Service Account, Radiant Res In Interface - 01/16/2018 10:30 AM PDT EXAM: ABDOMEN 1 | | VIEW History: Right lower quadrant abdominal pain Comparison: CT 10/09/2015 | | FINDINGS/IMPRESSION: Multiple loops of gas-filled, predominantly large bowel loops are | | present throughout the abdomen, likely representing ileus. There is a large right | | colonic stool burden. Surgical clips are present within the right upper quadrant. A | | right hip dynamic screw is partially visualized, as is a right intertrochanteric femoral | | fracture which appears in near anatomic alignment on this limited evaluation. I have | | personally reviewed the images and, if necessary, edited the report. I agree with the | | report as now presented. Final signature: Vonda Corea MD 01/16/2018 10:29 AM | | Preliminary: Gus Orozco MD Dictation initiated: Gus rOozco MD 01/16/2018 2:45 | | AM | |I have personally reviewed the images and, if necessary, edited the report. I agree with th e report as now presented. | | | |Final signature: Vonda Corea MD 01/16/2018 10:29 AM | |Preliminary: Gus Orozco MD | |Dictation initiated: Gus Orozco MD 01/16/2018 2:45 AM | + + + +---------+ + + | Performing | Address | City/State/Zipcode | Phone Number | | Organization | | | | + +---------+ + + | [facility] | | | | | VOICE RECOGNITION 2 | | | | + +---------+ + + CBC (HEMOGRAM) ONLY (01/15/2018 5:48 AM PDT) + + + + + + | Component | Value | Ref Range | Performed | Pathologist | | | | | At | Signature | + + + + + + | WHITE CELL | 10.20 | 3.50 - 10.80 | [facility] | | | COUNT | | K/cu mm | LABORATORY | | | | | | SERVICES, | | | | | | CORE | | + + + + + + | RED CELL | 4.39 (L) | 4.50 - 6.00 | [facility] | | | COUNT | | M/cu mm | LABORATORY | | | | | | SERVICES, | | | | | | CORE | | + + + + + + | HEMOGLOBIN | 13.4 (L) | 13.5 - 17.5 | [facility] | | | | | g/dL | LABORATORY | | | | | | SERVICES, | | | | | | CORE | | + + + + + + | HEMATOCRIT | 39.2 (L) | 41.0 - 53.0 % | [facility] | | | | | | LABORATORY | | | | | | SERVICES, | | | | | | CORE | | + + + + + + | MCV | 89.3 | 80.0 - 100.0 fL | [facility] | | | | | | LABORATORY | | | | | | SERVICES, | | | | | | CORE | | + + + + + + | MCHC | 34.2 | 32.0 - 36.0 | [facility] | | | | | g/dL | LABORATORY | | | | | | SERVICES, | | | | | | CORE | | + + + + + + | RDW SD | 45.1 | 35.1 - 46.3 fL | [facility] | | | | | | LABORATORY | | | | | | SERVICES, | | | | | | CORE | | + + + + + + | PLATELET | 125 (L) | 150 - 400 K/cu | [facility] | | | COUNT | | mm | LABORATORY | | | | | | SERVICES, | | | | | | CORE | | + + + + + + | MPV | 9.3 (L) | 9.7 - 12.3 fL | [...] MCHC, PLT, IG% and IG# effective | [facility] | | 12/10/2017 | LABORATORY | | | SERVICES, CORE | + + + + + + + + | Performing | Address | City/State/Zipcode | Phone Number | | Organization | | | | + + + + + | [facility] | [address] | [place] [address] | | | SERVICES, CORE | [address] | | | + + + + + COMPLETE METABOLIC SET (NA,K,CL,CO2,BUN,CREAT,GLUC,CA,AST,ALT,BILI TOTAL,ALK PHOS,ALB,PROT TOTAL) (01/15/2018 5:48 AM PDT) + +---------+ + + + | Component | Value | Ref Range | Performed | Pathologist | | | | | At | Signature | + +---------+ + + + | GLUCOSE, | 124 (H) | 70 - 99 mg/dL | [facility] | | | PLASMA | | | LABORATORY | | | (LAB) | | | SERVICES, | | | | | | CORE | | + +---------+ + + + | BUN, PLASMA | 20 | 6 - 20 mg/dL | [facility] | | | (LAB) | | | LABORATORY | | | | | | SERVICES, | | | | | | CORE | | + +---------+ + + + | CREATININE | 1.01 | 0.70 - 1.30 | [facility] | | | PLASMA | | mg/dL | LABORATORY | | | (LAB) | | | SERVICES, | | | | | | CORE | | + +---------+ + + + | EGFR | >60 | >60 mL/min | [facility] | | | - | | | LABORATORY | | | SOMALI | | | SERVICES, | | | | | | CORE | | + +---------+ + + + | EGFR NON | >60 | >60 mL/min | [facility] | | | -JAE | | | LABORATORY | | | RICAN | | | SERVICES, | | | | | | CORE | | + +---------+ + + + | SODIUM, | 134 (L) | 136 - 145 | [facility] | | | PLASMA | | mmol/L | LABORATORY | | | (LAB) | | | SERVICES, | | | | | | CORE | | + +---------+ + + + | POTASSIUM, | 3.8 | 3.4 - 5.0 | [facility] | | | PLASMA | | mmol/L | LABORATORY | | | (LAB) | | | SERVICES, | | | | | | CORE | | + +---------+ + + + | CHLORIDE, | 97 | 97 - 108 mmol/L | [facility] | | | PLASMA | | | LABORATORY | | | (LAB) | | | SERVICES, | | | | | | CORE | | + +---------+ + + + | TOTAL CO2, | 29 | 21 - 32 mmol/L | [facility] | | | PLASMA | | | LABORATORY | | | (LAB) | | | SERVICES, | | | | | | CORE | | + +---------+ + + + | CALCIUM, | 8.3 (L) | 8.6 - 10.2 | [facility] | | | PLASMA | | mg/dL | LABORATORY | | | (LAB) | | | SERVICES, | | | | | | CORE | | + +---------+ + + + | CALCIUM(ALB | 9.3 | 8.6 - 10.2 | [facility] | | | CORRECTED) | | mg/dL | LABORATORY | | | | | | SERVICES, | | | | | | CORE | | + +---------+ + + + | BILIRUBIN | 0.6 | 0.3 - 1.2 mg/dL | [facility] | | | TOTAL | | | LABORATORY | | | | | | SERVICES, | | | | | | CORE | | + +---------+ + + + | TOTAL | 6.5 | 6.4 - 8.2 g/dL | [facility] | | | PROTEIN, | | | LABORATORY | | | PLASMA | | | SERVICES, | | | (LAB) | | | CORE | | + +---------+ + + + | ALBUMIN, | 2.8 (L) | 3.5 - 4.7 g/dL | [facility] | | | PLASMA | | | LABORATORY | | | (LAB) | | | SERVICES, | | | | | | CORE | | + +---------+ + + + | ALK PHOS | 80 | 56 - 119 U/L | [facility] | | | | | | LABORATORY | | | | | | SERVICES, | | | | | | CORE | | + +---------+ + + + | AST(SGOT) | 67 (H) | <=41 U/L | [facility] | | | | | | LABORATORY | | | | | | SERVICES, | | | | | | CORE | | + +---------+ + + + | ALT (SGPT) | 73 (H) | <=60 U/L | [facility] | [...] +---------+ + + + | ANION | 11 | 4 - 11 mmol/L | [facility] [...] the MDRD equation recommended by the | [facility] | | National Kidney Disease Education Program. [...] + + | [facility] | [address] | [place] [address] | | | SERVICES, CORE | [address] | | | + + + + + SIROLIMUS QUANTITATION, WHOLE BLOOD (01/15/2018 5:48 AM PDT) + +-------+ + + + | Component | Value | Ref Range | Performed | Pathologist | | | | | At | Signature | + +-------+ + + + | SIROLIMUS, | 8.6 | 4.0 - 12.0 | [facility] | | | WHOLE BLOOD | | ng/mL | LABORATORY | | | | | | SERVICES, | | | | | | SPECIAL IMM | | | | | | + COAG | | + +-------+ + + + + + | Specimen | + + | Blood - Blood | | (substance) | + + + + + | Narrative | Performed At | + + + | Test Performed by [facility]. Test performed by immunoassay using | [facility] | | [employer] Worker i2000. Kidney transplant (in combination with | LABORATORY | | Cyclosporine): 4-12 ng/mL Toxic value: > 25 ng/mL Interpretive | SERVICES, | | Data: A range of 12-20 ng/mL has been suggested for liver transplant. | SPECIAL IMM + | | Samples for analysis of Sirolimus should be collected 30 minutes to 1 | COAG | | hour prior to the next dose so that the measured concentration of drug | | | represents trough levels. The optimal therapeutic range for a given | | | patient may differ from this suggested range based on the indication | | | for therapy, treatment phase (initiation or maintenance), use in | | | combination with other drugs, time of specimen collection relative to | | | prior dose and/or type of transplanted organ. | | + + + + + + + + | Performing | Address | City/State/Zipcode | Phone Number | | Organization | | | | + + + + + | [facility] | [address] | [place] [address] | | | SERVICES, SPECIAL | [address] | | | | IMM + COAG | | | | + + + + + INR (01/15/2018 5:48 AM PDT) + +-------+ + + + | Component | Value | Ref Range | Performed | Pathologist | | | | | At | Signature | + +-------+ + + + | INR | 1.07 | 0.90 - 1.20 INR | [facility] [...] mech. valves (2.5 - 3.5) INR | SERVICES, CORE | + + + + + + + + | Performing | Address | City/State/Zipcode | Phone Number | | Organization | | | | + + + + + | [facility] | [address] | [place] [address] | | | SERVICES, CORE | [address] | | | + + + + + PROCEDURE NOTE (01/14/2018 7:58 PM PDT)CAPILLARY BLOOD GLUCOSE (NO CHG), POC (01/14/2018 9:36 AM PDT) + +-------+ + + + | Component | Value | Ref Range | Performed | Pathologist | | | | | At | Signature | + +-------+ + + + | BLOOD | 94 | 70 - 99 mg/dL | [facility] - | | | GLUCOSE, | | | [facility] | | | POC | | | [facility] | | | | | | OF CARE | | | | | | TESTS | | + +-------+ + + + + + | Specimen | + + | | + + + + + + + | Performing | Address | City/State/Zipcode | Phone Number | | Organization | | | | + + + + + | [facility] | [address] | [place], [place] | | | [facility] | [address] | [address] | | | TESTS | | | | + + + + + X-RAY HIP 2 VIEWS RIGHT (01/14/2018 8:55 AM PDT) + + | Specimen | + + | | + + + + + | Narrative | Performed At | + + + | - At the time of the study, no professional interpretation was | | | requested. - | | + + + X-RAY FLUOROSCOPY IN OR > 1 HOUR (01/14/2018 8:55 AM PDT) + + | Specimen | + + | | + + + + + | Narrative | Performed At | + + + | - At the time of the study, no professional interpretation was | | | requested. - | | + + + PROCEDURE NOTE (01/14/2018 8:39 AM PDT) + + + | Narrative | Performed At | + + + | Bernard Lawrence MD 01/14/2018 9:26 AM Date: 01/14/2018 | | | Attending Surgeon: Bernard Lawrence M.D. [employer] Consultant(s): Diego Parikh | | | Puneet Ann MD Preoperative Diagnosis(es): right | | | intertrochanteric femur fracture. Postoperative Diagnosis(es): | | | Same Procedures Performed: Open reduction and internal fixation of | | | right femur intertrochanteric fracture Anesthesia: General | | | endotracheal anesthesia. Complications: None. Components Used: | | | Synthes DHS 2 hole 135-degree plate with 105 lag screw Estimated | | | Blood Loss: 50 cc Disposition: To the PACU stable. Brief | | | Clinical Note and Indications: Simeon Michaels Jr. is a 58 y.o. | | | male who sustained an intertrochanteric femur. The patient was | | | seen and evaluated by the orthopedic team, and surgery was | | | recommended for this. We discussed the risks, benefits, and | | | alternatives to the procedure involving open reduction and internal | | | fixation of this hip. The patient understood the risks to include | | | , infection, bleeding, damage to nerves, vessels, tendons, | | | bones, cartilage, muscle, need for additional surgery, postoperative | | | pain, and stiffness. An opportunity was given for him to get all of | | | his questions answered, and he consented to the procedure. | | | Procedure: The patient was brought to the operating room, transferred | | | to the fracture table and given general endotracheal anesthesia | | | without complications. Antibiotic prophylaxis with ancef was | | | given. A surgical pause was held to properly identify the patient, | | | note that the surgical site was marked, and to verify that the | | | planned procedure was clearly indicated on the consent form . | | | A peroneal post was placed into the table against the patient's | | | groin, the affected extremity placed in boot traction, and the | | | unaffected extremity placed in a padded well-leg johnson. The | | | patient was secured to the bed tightly. All bony prominences were | | | padded. Traction was applied and the affected lower extremity was | | | then reduced under fluoroscopic imaging into an acceptable position. | | | This extremity was then prepped and draped in a normal sterile | | | fashion. An incision laterally over the greater trochanteric | | | region was made and carried down through skin sharply. The | | | ilio-tibial band was incised sharply and dissection carried through | | | the vastus lateralis with both bovie and a Torres elevator. A | | | Steinmann in and aiming guide were placed against the lateral | | | proximal femur and then after confirming good placement in the AP | | | and lateral planes the pin was driven up into the femoral neck and | | | head. Measure of 115 mm was then taken. The step drill was then | | | set to 105mm and drilled into the femoral neck and head. A sythes | | | 105mm DHS screw and 2 hole side plate were placed. Two screws | | | were placed into the plate and then traction released on the leg. | | | The compression screw was then placed and also removed. Final | | | fluoroscopic views confirmed good placement of the plates and | | | screws. Thorough irrigation of the wounds were completed. | | | Deep closure was performed with 0 Polysorb suture for the IT band, | | | followed by 2-0 polysorb and vanessa for skin. A soft sterile | | | dressing was applied to the incisions. The patient tolerated the | | | procedure well, emerged from anesthesia without difficulty, and | | | arrived in the PACU in stable condition. In accordance with medicare | | | guidelines Dr Lawrence was present and participated in the entire | | | case. Postoperative Plan: The patient will be weightbearing as | | | tolerated on the affected lower extremity. In 2 weeks, he will | | | follow up in clinic with the physicians logging assistant Yvette SUTHERLAND, | | | vanessa will be removed. Further followup will be at the 6-week | | | shlomo with Dr Lawrence. X-rays will be taken at that time 2v right | | | hip. In accordance with medicare guidelines I attest that I | | | was present and participated in the critical portions of this case. | | | Bernard Lawrence M.D. [facility] | | | [facility] | | + + + CBC (HEMOGRAM) ONLY (01/14/2018 6:04 AM PDT) + + + + + + | Component | Value | Ref Range | Performed | Pathologist | | | | | At | Signature | + + + + + + | WHITE CELL | 7.40 | 3.50 - 10.80 | [facility] | | | COUNT | | K/cu mm | LABORATORY | | | | | | SERVICES, | | | | | | CORE | | + + + + + + | RED CELL | 4.54 | 4.50 - 6.00 | [facility] | | | COUNT | | M/cu mm | LABORATORY | | | | | | SERVICES, | | | | | | CORE | | + + + + + + | HEMOGLOBIN | 14.1 | 13.5 - 17.5 | [facility] | | | | | g/dL | LABORATORY | | | | | | SERVICES, | | | | | | CORE | | + + + + + + | HEMATOCRIT | 40.9 (L) | 41.0 - 53.0 % | [facility] | | | | | | LABORATORY | | | | | | SERVICES, | | | | | | CORE | | + + + + + + | MCV | 90.1 | 80.0 - 100.0 fL | [facility] | | | | | | LABORATORY | | | | | | SERVICES, | | | | | | CORE | | + + + + + + | MCHC | 34.5 | 32.0 - 36.0 | [facility] | | | | | g/dL | LABORATORY | | | | | | SERVICES, | | | | | | CORE | | + + + + + + | RDW SD | 46.4 (H) | 35.1 - 46.3 fL | [facility] | | | | | | LABORATORY | | | | | | SERVICES, | | | | | | CORE | | + + + + + + | PLATELET | 116 (L) | 150 - 400 K/cu | [facility] | | | COUNT | | mm | LABORATORY | | | | | | SERVICES, | | | | | | CORE | | + + + + + + | MPV | 9.1 [...] MCHC, PLT, IG% and IG# effective | [facility] | | 12/10/2017 | LABORATORY | | | SERVICES, CORE | + + + + + + + + | Performing | Address | City/State/Zipcode | Phone Number | | Organization | | | | + + + + + | [facility] | [address] | [place] [address] | | | SERVICES, CORE | [address] | | | + + + + + COMPLETE METABOLIC SET (NA,K,CL,CO2,BUN,CREAT,GLUC,CA,AST,ALT,BILI TOTAL,ALK PHOS,ALB,PROT TOTAL) (01/14/2018 6:04 AM PDT) + +---------+ + + + | Component | Value | Ref Range | Performed | Pathologist | | | | | At | Signature | + +---------+ + + + | GLUCOSE, | 114 (H) | 70 - 99 mg/dL | [facility] | | | PLASMA | | | LABORATORY | | | (LAB) | | | SERVICES, | | | | | | CORE | | + +---------+ + + + | BUN, PLASMA | 24 (H) | 6 - 20 mg/dL | [facility] | | | (LAB) | | | LABORATORY | | | | | | SERVICES, | | | | | | CORE | | + +---------+ + + + | CREATININE | 1.05 | 0.70 - 1.30 | [facility] | | | PLASMA | | mg/dL | LABORATORY | | | (LAB) | | | SERVICES, | | | | | | CORE | | + +---------+ + + + | EGFR | >60 | >60 mL/min | [facility] | | | - | | | LABORATORY | | | SOMALI | | | SERVICES, | | | | | | CORE | | + +---------+ + + + | EGFR NON | >60 | >60 mL/min | [facility] | | | -JAE | | | LABORATORY | | | RICAN | | | SERVICES, | | | | | | CORE | | + +---------+ + + + | SODIUM, | 136 | 136 - 145 | [facility] | | | PLASMA | | mmol/L | LABORATORY | | | (LAB) | | | SERVICES, | | | | | | CORE | | + +---------+ + + + | POTASSIUM, | 3.8 | 3.4 - 5.0 | [facility] | | | PLASMA | | mmol/L | LABORATORY | | | (LAB) | | | SERVICES, | | | | | | CORE | | + +---------+ + + + | CHLORIDE, | 101 | 97 - 108 mmol/L | [facility] | | | PLASMA | | | LABORATORY | | | (LAB) | | | SERVICES, | | | | | | CORE | | + +---------+ + + + | TOTAL CO2, | 30 | 21 - 32 mmol/L | [facility] | | | PLASMA | | | LABORATORY | | | (LAB) | | | SERVICES, | | | | | | CORE | | + +---------+ + + + | CALCIUM, | 8.6 | 8.6 - 10.2 | [facility] | | | PLASMA | | mg/dL | LABORATORY | | | (LAB) | | | SERVICES, | | | | | | CORE | | + +---------+ + + + | CALCIUM(ALB | 9.3 | 8.6 - 10.2 | [facility] | | | CORRECTED) | | mg/dL | LABORATORY | | | | | | SERVICES, | | | | | | CORE | | + +---------+ + + + | BILIRUBIN | 0.6 | 0.3 - 1.2 mg/dL | [facility] | | | TOTAL | | | LABORATORY | | | | | | SERVICES, | | | | | | CORE | | + +---------+ + + + | TOTAL | 6.6 | 6.4 - 8.2 g/dL | [facility] | | | PROTEIN, | | | LABORATORY | | | PLASMA | | | SERVICES, | | | (LAB) | | | CORE | | + +---------+ + + + | ALBUMIN, | 3.1 (L) | 3.5 - 4.7 g/dL | [facility] | | | PLASMA | | | LABORATORY | | | (LAB) | | | SERVICES, | | | | | | CORE | | + +---------+ + + + | ALK PHOS | 87 | 56 - 119 U/L | [facility] | | | | | | LABORATORY | | | | | | SERVICES, | | | | | | CORE | | + +---------+ + + + | AST(SGOT) | 78 (H) | <=41 U/L | [facility] | | | | | | LABORATORY | | | | | | SERVICES, | | | | | | CORE | | + +---------+ + + + | ALT (SGPT) | 96 (H) | <=60 U/L | [facility] | | | | | | LABORATORY | | | | | | SERVICES, | | | | | | CORE | | + +---------+ + + + | ANION GAP | 5 | 4 - 11 mmol/L | [facility] | | | | | | LABORATORY | | | | | | SERVICES, | | | | | | CORE | | + +---------+ + + + | ANION | 7 | 4 - 11 mmol/L | [facility] [...] the MDRD equation recommended by the | [facility] | | National Kidney Disease Education Program. [...] [facility] | [address] | [place] [address] | | | SERVICES, CORE | [address] | | | + + + + + SIROLIMUS QUANTITATION, WHOLE BLOOD (01/14/2018 6:04 AM PDT) + +-------+ + + + | Component | Value | Ref Range | Performed | Pathologist | | | | | At | Signature | + +-------+ + + + | SIROLIMUS, | 8.0 | 4.0 - 12.0 | [facility] | | | WHOLE BLOOD | | ng/mL | LABORATORY | | | | | | SERVICES, | | | | | | SPECIAL IMM | | | | | | + COAG | | + +-------+ + + + + + | Specimen | + + | Blood - Blood | | (substance) | + + + + + | Narrative | Performed At | + + + | Test performed by immunoassay using [employer] Bog Worker i2000. | [facility] | | Kidney transplant (in combination with Cyclosporine): 4-12 ng/mL | LABORATORY | | Toxic value: > 25 ng/mL Interpretive Data: A range of 12-20 ng/mL | SERVICES, | | has been suggested for liver transplant. Samples for analysis of | SPECIAL IMM + | | Sirolimus should be collected 30 minutes to 1 hour prior to the next | COAG | | dose so that the measured concentration of drug represents trough | | | levels. The optimal therapeutic range for a given patient may differ | | | from this suggested range based on the indication for therapy, | | | treatment phase (initiation or maintenance), use in combination with | | | other drugs, time of specimen collection relative to prior dose and/or | | | type of transplanted organ. | | + + + + + + + + | Performing | Address | City/State/Zipcode | Phone Number | | Organization | | | | + + + + + | [facility] | [address] | [place] [address] | | | SERVICES, SPECIAL | [address] | | | | IMM + COAG | | | | + + + + + CARDIOLOGY (01/14/2018 12:00 AM PDT) + + + | Narrative | Performed At | + + + | | | + + + RPR SERUM (01/13/2018 1:59 PM PDT) + + + + + + | Component | Value | Ref Range | Performed | Pathologist | | | | | At | Signature | + + + + + + | RPR SRM | Non ReactiveComment: | Non Reactive | [facility] | | | QUAL | Rapid Plasma Reagin | | REG UNIV | | | | screening test is | | PTH - [facility] | | | | Non-Reactive. No further | | | | | | reflex testing is | | | | | | required.Performed by | | | | | | [facility],[address] | | | | | [facility] | | | | | | [id number] | | | | | | [phone]. | | | | | | Juvenal robertson MD, | | | | | | Lab. Director | | | | + + + + + + + + | Specimen | + + | Blood - Blood | | (substance) | + + + + + + + | Performing | Address | City/State/Zipcode | Phone Number | | Organization | | | | + + + + + | [facility] | [address] | [place], [place] | | | UNIV PTH - INT[facility] | | [phone] | | + + + + + HIV-1,2 AB/HIV-1 P24 AG SCRN (01/13/2018 1:59 PM PDT) + + + + + + | Component | Value | Ref Range | Performed | Pathologist | | | | | At | Signature | + + + + + + | HIV-1,2 | Negative | Negative | [facility] | | | AB/HIV-1 | | | LABORATORY | | | P24 AG | | | SERVICES, | | | SCREEN | | | SPECIAL IMM | | | | | | + COAG | | + + + + + + + + | Specimen | + + | Blood - Blood | | (substance) | + + + + + | Narrative | Performed At | + + + | HIV-1 p24 Ag and HIV-1,2 Ab not detected. Test modified from | [facility] | | original caravan park and camping ground manager's approved specifications. The performance | LABORATORY | | of the CLERK OF SCALES HIV Combo test, with or without confirmation, was not | SERVICES, | | tested in pediatric patients less than 2 years of age. [facility] [[email or web address]] | SPECIAL IMM + | | guidelines recommend virologic assays (i.e. HIV 1 VIRAL LOAD) that | COAG | | directly detect HIV for diagnosis of HIV infection in infants younger | | | than 2 years. | | + + + + + + + + | Performing | Address | City/State/Zipcode | Phone Number | | Organization | | | | + + + + + | [facility] | [address] | [place] [address] | | | SERVICES, SPECIAL | [address] | | | | IMM + COAG | | | | + + + + + HEPATITIS B SURFACE AG W/REFLEX CONFIRMATION IF INDETERMINATE RESULTS (01/13/2018 1:59 PM PDT) + + + + + + | Component | Value | Ref Range | Performed | Pathologist | | | | | At | Signature | + + + + + + | HEPATITIS B | | | [facility] | | | SURFACE | | | LABORATORY | | | AG, SERUM | | | SERVICES, | | | | | | CORE | | + + + + + + | HEP B | Not Detected | Not Detected | [facility] | | | SURFACE AG | | | LABORATORY | | | [...] [facility] | [address] | [place] [address] | | | SERVICES, CORE | [address] | | | + + + + + HEPATITIS B SURFACE AB QUAL, SERUM (01/13/2018 1:59 PM PDT) + + + + + + | Component | Value | Ref Range | Performed | Pathologist | | | | | At | Signature | + + + + + + | HEP B | Not Detected | Not Detected | [facility] | | | SURFACE AB | | | LABORATORY | | | QUAL | | | SERVICES, | | | | | | CORE | | + + + + + + + + | Specimen | + + | Blood - Blood | | (substance) | + + + + + + + | Performing | Address | City/State/Zipcode | Phone Number | | Organization | | | | + + + + + | [facility] | [address] | [place] [address] | | | SERVICES, CORE | [address] | | | + + + + + HEPATITIS B CORE AB, SERUM (01/13/2018 1:59 PM PDT) + + + + + + | Component | Value | Ref Range | Performed | Pathologist | | | | | At | Signature | + + + + + + | HEP B CORE | Not Detected | Not Detected | [facility] | | | AB | | | LABORATORY | | | [...] [facility] | [address] | [place] [address] | | | SERVICES, CORE | [address] | | | + + + + + X-RAY FEMUR 2 VIEWS RIGHT (01/13/2018 6:15 AM PDT) + + | Specimen | + + | | + + + + + | Narrative | Performed At | + + + | EXAM: FEMUR 2 VIEWS RIGHT HISTORY: pre op. COMPARISON: | [facility] | | 01/12/2018 FINDINGS: Redemonstration of a minimally displaced | RADIOLOGY VOICE | | comminuted primarily intertrochanteric fracture of the right proximal | RECOGNITION 2 | | femur. The femoral head continues to articulate with the acetabulum. | | | No additional acute fracture is identified. The pubic symphysis is | | | intact. The right sacroiliac joint is patent. There is no knee joint | | | effusion. IMPRESSION: No significant interval change in the | | | appearance of the right primarily intertrochanteric minimally | | | displaced femoral fracture. I have personally reviewed the images | | | and, if necessary, edited the report. I agree with the report as now | | | presented. Final signature: Valente Swenson MD 01/13/2018 | | | 8:34 AM Preliminary: Valente Swenson MD Dictation | | | initiated: Valente Swenson MD 01/13/2018 8:29 AM | | + + + + + | Procedure Note | + + | Service Account, [facility] In Interface - 01/13/2018 8:35 AM PDT EXAM: FEMUR 2 | | VIEWS RIGHT HISTORY: pre op. COMPARISON: 01/12/2018 FINDINGS: Redemonstration of a | | minimally displaced comminuted primarily intertrochanteric fracture of the right | | proximal femur. The femoral head continues to articulate with the acetabulum. No | | additional acute fracture is identified. The pubic symphysis is intact. The right | | sacroiliac joint is patent. There is no knee joint effusion. IMPRESSION: No significant | | interval change in the appearance of the right primarily intertrochanteric minimally | | displaced femoral fracture. I have personally reviewed the images and, if necessary, | | edited the report. I agree with the report as now presented. Final signature: Valente Escamilla | | MD Leela 01/13/2018 8:34 AM Preliminary: Valente Swenson MD Dictation | | initiated: Valente Swenson MD 01/13/2018 8:29 AM | |IMPRESSION: | | | |No significant interval change in the appearance of the right primarily intertrochanteric m inimally displaced femoral fracture. | | | |I have personally reviewed the images and, if necessary, edited the report. I agree with th e report as now presented. | | | |Final signature: Valente Swenson MD 01/13/2018 8:34 AM | |Preliminary: Valente Swenson MD | |Dictation initiated: Valente Swenson MD 01/13/2018 8:29 AM | + + + +---------+ + + | Performing | Address | City/State/Zipcode | Phone Number | | Organization | | | | + +---------+ + + | [facility] | | | | | VOICE RECOGNITION 2 | | | | + +---------+ + + ANTIBODY SCREEN (01/13/2018 5:02 AM PDT) + + + + + [...] + + | [facility] | [address] | [place] [address] | | | SERVICES, | [address] | | | | TRANSFUSION MEDICINE | | | | + + + + + ABO & RH TYPE (01/13/2018 5:02 AM PDT) + + + + + [...] [facility] | [address] | [place] [address] | | | SERVICES, | [address] | | | | TRANSFUSION MEDICINE | | | | + + + + + CBC AND AUTO DIFF (01/13/2018 5:02 AM PDT) + + + + + + | Component | Value | Ref Range | Performed | Pathologist | | | | | At | Signature | + + + + + + | WHITE CELL | 7.81 | 3.50 - 10.80 | [facility] | | | COUNT | | K/cu mm | LABORATORY | | | | | | SERVICES, | | | | | | CORE | | + + + + + + | RED CELL | 4.75 | 4.50 - 6.00 | [facility] | | | COUNT | | M/cu mm | LABORATORY | | | | | | SERVICES, | | | | | | CORE | | + + + + + + | HEMOGLOBIN | 14.5 | 13.5 - 17.5 | [facility] | | | | | g/dL | LABORATORY | | | | | | SERVICES, | | | | | | CORE | | + + + + + + | HEMATOCRIT | 42.2 | 41.0 - 53.0 % | [facility] | | | | | | LABORATORY | | | | | | SERVICES, | | | | | | CORE | | + + + + + + | MCV | 88.8 | 80.0 - 100.0 fL | [facility] | | | | | | LABORATORY | | | | | | SERVICES, | | | | | | CORE | | + + + + + + | MCHC | 34.4 | 32.0 - 36.0 | [facility] | | | | | g/dL | LABORATORY | | | | | | SERVICES, | | | | | | CORE | | + + + + + + | RDW SD | 44.3 | 35.1 - 46.3 fL | [facility] | | | | | | LABORATORY | | | | | | SERVICES, | | | | | | CORE | | + + + + + + | PLATELET | 129 (L)Comment: Few | 150 - 400 K/cu | [facility] | | | COUNT | platelet clumps present. | mm | LABORATORY | | | | Macroplatelets present. | | SERVICES, | | | | | | CORE | | + + + + + + | MPV | 9.7 | 9.7 - 12.3 fL | [facility] [...] + + + + + + | NEUTROPHIL | 78.9 (H) | 50.0 - 70.0 % | [facility] | | | % | | | LABORATORY | | | | | | SERVICES, | | | | | | CORE | | + + + + + + | LYMPHOCYTE | 10.2 (L) | 18.0 - 42.0 % | [facility] | | | % | | | LABORATORY | | | | | | SERVICES, | | | | | | CORE | | + + + + + + | MONOCYTE % | 10.0 (H) | 3.5 - 9.0 % | [facility] | | | | | | LABORATORY | | | | | | SERVICES, | | | | | | CORE | | + + + + + + | EOS % | 0.1 (L) | 1.0 - 3.0 % | [facility] | | | | | | LABORATORY | | | | | | SERVICES, | | | | | | CORE | | + + + + + + | BASO % | 0.4 | 0.0 - 2.0 % | [facility] | | | | | | LABORATORY | | | | | | SERVICES, | | | | | | CORE | | + + + + + + | IG% | 0.4Comment: Increased | 0.0 - 1.0 % | [facility] | | | | immature granulocytes | | LABORATORY | | | | (IG) define a left | | SERVICES, | | | | shift. Immature | | CORE | | | | granulocytes (IG) are an | | | | | | automated count of | | | | | | metamyelocytes, | | | | | | myelocytes and | | | | | | promyelocytes. Bands | | | | | | are not included in the | | | | | | IG count. Bands are | | | | | | included in the | | | | | | neutrophil count. | | | | + + + + + + | NEUTROPHIL | 6.16 | 1.80 - 7.70 | [facility] | | | # | | K/cu mm | LABORATORY | | | | | | SERVICES, | | | | | | CORE | | + + + + + + | LYMPHOCYTE | 0.80 (L) | 1.00 - 4.80 | [facility] | | | # | | K/cu mm | LABORATORY | | | | | | SERVICES, | | | | | | CORE | | + + + + + + | MONOCYTE # | 0.78 | 0.10 - 0.90 | [facility] | | | | | K/cu mm | LABORATORY | | | | | | SERVICES, | | | | | | CORE | | + + + + + + | EOS # | 0.01 | 0.00 - 0.50 | [facility] | | | | | K/cu mm | LABORATORY | | | | | | SERVICES, | | | | | | CORE | | + + + + + + | BASO # | 0.03 | 0.00 - 0.10 | [facility] | | | | | K/cu mm | LABORATORY | | | | | | SERVICES, | | | | | | CORE | | + + + + + + | IG# | 0.03 | 0.00 - 0.10 | [facility] | | | | | [...] MCHC, PLT, IG% and IG# effective | [facility] | | 12/10/2017 Increased immature granulocytes (IG) define a left shift. | LABORATORY | | Immature granulocytes (IG) are an automated count of metamyelocytes, | SERVICES, CORE | | myelocytes and promyelocytes. Bands are not included in the IG count. | | | Bands are included in the neutrophil count. | | + + + + + + + + | Performing | Address | City/State/Zipcode | Phone Number | | Organization | | | | + + + + + | [facility] | [address] | [place] [address] | | | SERVICES, CORE | [address] | | | + + + + + SIROLIMUS QUANTITATION, WHOLE BLOOD (01/13/2018 5:02 AM PDT) + +---------+ + + + | Component | Value | Ref Range | Performed | Pathologist | | | | | At | Signature | + +---------+ + + + | SIROLIMUS, | 2.9 (L) | 4.0 - 12.0 | [facility] | | | WHOLE BLOOD | | ng/mL | LABORATORY | | | | | | SERVICES, | | | | | | SPECIAL IMM | | | | | | + COAG | | + +---------+ + + + + + | Specimen | + + | Blood - Blood | | (substance) | + + + + + | Narrative | Performed At | + + + | Test performed by immunoassay using [employer] i2000. | [facility] | | Kidney transplant (in combination with Cyclosporine): 4-12 ng/mL | LABORATORY | | Toxic value: > 25 ng/mL Interpretive Data: A range of 12-20 ng/mL | SERVICES, | | has been suggested for liver transplant. Samples for analysis of | SPECIAL IMM + | | Sirolimus should be collected 30 minutes to 1 hour prior to the next | COAG | | dose so that the measured concentration of drug represents trough | | | levels. The optimal therapeutic range for a given patient may differ | | | from this suggested range based on the indication for therapy, | | | treatment phase (initiation or maintenance), use in combination with | | | other drugs, time of specimen collection relative to prior dose and/or | | | type of transplanted organ. | | + + + + + + + + | Performing | Address | City/State/Zipcode | Phone Number | | Organization | | | | + + + + + | [facility] | [address] | [place] [address] | | | SERVICES, SPECIAL | [address] | | | | IMM + COAG | | | | + + + + + APTT (ACT. PART. THROMBO TIME) (01/13/2018 5:02 AM PDT) + +-------+ + + + | Component | Value | Ref Range | Performed | Pathologist | | | | | At | Signature | + +-------+ + + + | APTT | 30.7 | 26.0 - 36.0 | [facility] | | | | | seconds | LABORATORY | | | | | | SERVICES, | | | | | | CORE | | + +-------+ + + + + + | Specimen | + + | Blood - Blood | | (substance) | + + + + + | Narrative | Performed At | + + + | APTT values for monitoring heparin therapy may be affected by | [facility] | | specimens processed >1 hour after collection. APTT Therapeutic | LABORATORY | | Range: (75 - 120) sec Heparin | SERVICES, CORE | | levels of 0.35 - 0.7 U/mL | | + + + + + + + + | Performing | Address | City/State/Zipcode | Phone Number | | Organization | | | | + + + + + | [facility] | [address] | [place] [address] | | | SERVICES, CORE | [address] | | | + + + + + INR (01/13/2018 5:02 AM PDT) + +-------+ + + + | Component | Value | Ref Range | Performed | Pathologist | | | | | At | Signature | + +-------+ + + + | INR | 1.03 | 0.90 - 1.20 INR | [facility] [...] mech. valves (2.5 - 3.5) INR | SERVICES, CORE | + + + + + + + + | Performing | Address | City/State/Zipcode | Phone Number | | Organization | | | | + + + + + | [facility] | [address] | [place] [address] | | | SERVICES, CORE | [address] | | | + + + + + MAGNESIUM, PLASMA (01/13/2018 5:02 AM PDT) + +-------+ + + + | Component | Value | Ref Range | Performed | Pathologist | | | | | At | Signature | + +-------+ + + + | MAGNESIUM,P | 2.0 | 1.6 - 2.6 mg/dL | [facility] | | | LASMA | | | LABORATORY | | | | | | LYNETTE, | | | | | | CORE | | + +-------+ + + + + + | Specimen | + + | Blood - Blood | | (substance) | + + + + + | Narrative | Performed At | + + + | Reference range change effective 03/17/17. | [facility] | | | LABORATORY | | | SERVICES, CORE | + + + + + + + + | Performing | Address | City/State/Zipcode | Phone Number | | Organization | | | | + + + + + | [facility] | [address] | [place] [address] | | | SERVICES, CORE | [address] | | | + + + + + COMPLETE METABOLIC SET (NA,K,CL,CO2,BUN,CREAT,GLUC,CA,AST,ALT,BILI TOTAL,ALK PHOS,ALB,PROT TOTAL) (01/13/2018 5:02 AM PDT) + +---------+ + + + | Component | Value | Ref Range | Performed | Pathologist | | | | | At | Signature | + +---------+ + + + | GLUCOSE, | 102 (H) | 70 - 99 mg/dL | [facility] | | | PLASMA | | | LABORATORY | | | (LAB) | | | SERVICES, | | | | | | CORE | | + +---------+ + + + | BUN, PLASMA | 22 (H) | 6 - 20 mg/dL | [facility] | | | (LAB) | | | LABORATORY | | | | | | SERVICES, | | | | | | CORE | | + +---------+ + + + | CREATININE | 1.14 | 0.70 - 1.30 | [facility] | | | PLASMA | | mg/dL | LABORATORY | | | (LAB) | | | SERVICES, | | | | | | CORE | | + +---------+ + + + | EGFR | >60 | >60 mL/min | [facility] | | | - | | | LABORATORY | | | SOMALI | | | SERVICES, | | | | | | CORE | | + +---------+ + + + | EGFR NON | >60 | >60 mL/min | [facility] | | | -JAE | | | LABORATORY | | | RICAN | | | SERVICES, | | | | | | CORE | | + +---------+ + + + | SODIUM, | 137 | 136 - 145 | [facility] | | | PLASMA | | mmol/L | LABORATORY | | | (LAB) | | | SERVICES, | | | | | | CORE | | + +---------+ + + + | POTASSIUM, | 3.5 | 3.4 - 5.0 | [facility] | | | PLASMA | | mmol/L | LABORATORY | | | (LAB) | | | SERVICES, | | | | | | CORE | | + +---------+ + + + | CHLORIDE, | 102 | 97 - 108 mmol/L | [facility] | | | PLASMA | | | LABORATORY | | | (LAB) | | | SERVICES, | | | | | | CORE | | + +---------+ + + + | TOTAL CO2, | 24 | 21 - 32 mmol/L | [facility] | | | PLASMA | | | LABORATORY | | | (LAB) | | | SERVICES, | | | | | | CORE | | + +---------+ + + + | CALCIUM, | 8.6 | 8.6 - 10.2 | [facility] | | | PLASMA | | mg/dL | LABORATORY | | | (LAB) | | | SERVICES, | | | | | | CORE | | + +---------+ + + + | CALCIUM(ALB | 8.9 | 8.6 - 10.2 | [facility] | | | CORRECTED) | | mg/dL | LABORATORY | | | | | | SERVICES, | | | | | | CORE | | + +---------+ + + + | BILIRUBIN | 0.9 | 0.3 - 1.2 mg/dL | [facility] | | | TOTAL | | | LABORATORY | | | | | | SERVICES, | | | | | | CORE | | + +---------+ + + + | TOTAL | 7.2 | 6.4 - 8.2 g/dL | [facility] [...] + + + | ALK PHOS | 107 | 56 - 119 U/L | [facility] | | | | | | LABORATORY | | | | | | SERVICES, | | | | | | CORE | | + +---------+ + + + | AST(SGOT) | 116 (H) | <=41 U/L | [facility] | | | | | | LABORATORY | | | | | | SERVICES, | | | | | | CORE | | + +---------+ + + + | ALT (SGPT) | 124 (H) | <=60 U/L | [facility] | | | | | | LABORATORY | | | | | | SERVICES, | | | | | | CORE | | + +---------+ + + + | ANION GAP | 11 | 4 - 11 mmol/L | [facility] | | | | | | LABORATORY | | | | | | SERVICES, | | | | | | CORE | | + +---------+ + + + | ANION | 12 (H) | 4 - 11 mmol/L | [facility] [...] the MDRD equation recommended by the | [facility] | | National Kidney Disease Education Program. [...] | + + + + + | [facility] | [address] | [place] [address] | | | SERVICES, CORE | [address] | | | + + + + + OPIATE CONFIRM FOR POC USE ONLY (01/13/2018 4:58 AM PDT) + + + + + + | Component | Value | Ref Range | Performed | Pathologist | | | | | At | Signature | + + + + + + | CODEINE UR, | <25 | <25 ng/mL | [facility] | | | CONFIRM | | | LABORATORY | | | | | | SERVICES, | | | | | | SPECIAL IMM | | | | | | + COAG | | + + + + + + | MORPHINE | <25 | <25 ng/mL | [facility] | | | UR, CONFIRM | | | LABORATORY | | | | | | SERVICES, | | | | | | SPECIAL IMM | | | | | | + COAG | | + + + + + + | HYDROCODONE | <25 | <25 ng/mL | [facility] | | | UR, | | | LABORATORY | | | CONFIRM | | | SERVICES, | | | | | | SPECIAL IMM | | | | | | + COAG | | + + + + + + | HYDROMORPHO | 835 (H) | <25 ng/mL | [facility] | | | NE UR, | | | LABORATORY | | | CONFRIM | | | SERVICES, | | | | | | SPECIAL IMM | | | | | | + COAG | | + + + + + + | OXYCODONE | <25 | <25 ng/mL | [facility] | | | UR, CONFIRM | | | LABORATORY | | | | | | SERVICES, | | | | | | SPECIAL IMM | | | | | | + COAG | | + + + + + + | OXYMORPHONE | <25 | <25 ng/mL | [facility] | | | UR, | | | LABORATORY | | | CONFIRM | | | SERVICES, | | | | | | SPECIAL IMM | | | | | | + COAG | | + + + + + + | CODEINE-GLU | <50 | <50 ng/ml | [facility] | | | CURONIDE | | | LABORATORY | | | CONFIRM | | | SERVICES, | | | | | | SPECIAL IMM | | | | | | + COAG | | + + + + + + | OPIATE | Positive (A) | Not Detected | [facility] | | | METABOLITE | | | LABORATORY | | | CONFIRM | | | SERVICES, | | | | | | SPECIAL IMM | | | | | | + COAG | | + + + + + + | 6-ACETYLMOR | Not Detected | Not Detected | [facility] | | | PHINE QUAL | | | LABORATORY | | | CONFIRM | | | SERVICES, | | | | | | SPECIAL IMM | | | | | | + COAG | | + + + + + + + + | Specimen | + + | Urine - Urine | | (substance) | + + + + + | Narrative | Performed At | + + + | A result of "<" means no drug was detected above the cutoff, | [facility] | | interpret this as negative. Opiate detection window 2-3 days. | LABORATORY | | Confirmation Cut-off: Codeine, hydrocodone, oxycodone, morphine, | SERVICES, | | hydromorphone and oxycodone by LC-MS: >25 ng/mL Codeine-glucuronide | SPECIAL IMM + | | and opiate metabolite by LC-MS: >50 ng/mL 6-Acetylmorphine positive | COAG | | if > 150 ng/mL Certain synthetic and natural opiates are not | | | detected by this method. The compounds not detected include, but are | | | not limited, to the following: Demerol (meperidine), Fentanyl, | | | Thebaine, Etorphine, Oripavine, Norcodeine, Nalbuphine, Buprenorphine, | | | Naloxone and Naltrexone. Codeine glucuronide is a metabolic product | | | of codeine. Identification of specific drug(s) taken by specimen | | | donor is problematic due to common metabolites, some of which are | | | prescription drugs themselves. The absence of expected drug(s) and/or | | | drug metabolite(s) may indicate non-compliance, inappropriate timing | | | of specimen collection relative to drug administration, poor drug | | | absorption, diluted/adulterated urine, or limitations of testing. A | | | very small amount of an unexpected drug analyte in the presence of a | | | large amount of an expected drug analyte may reflect pharmaceutical | | | impurity. Questions concerning interpretation should be directed to | | | the laboratory. Results confirmed by mass spectroscopy. This is a | | | lab-developed test not evaluated by the FDA. The results are not | | | intended to be used as the sole means for clinical diagnosis or | | | patient management decisions. | | + + + + + + + + | Performing | Address | City/State/Zipcode | Phone Number | | Organization | | | | + + + + + | [facility] | [address] | [place] [address] | | | SERVICES, SPECIAL | [address] | | | | IMM + COAG | | | | + + + + + DRUG SCREEN,URINE;W/CONFIRM (01/13/2018 4:58 AM PDT) + + + + + + | Component | Value | Ref Range | Performed | Pathologist | | | | | At | Signature | + + + + + + | AMPHETAMINE | Positive (A)Comment: Not | Negative | [facility] | | | , URINE | confirmed. | | LABORATORY | | | | | | SERVICES, | | | | | | CORE | | + + + + + + | AMPHETAMINE | >5400 (H) | <1,000 ng/mL | [facility] | | | CONC, | | | LABORATORY | | | URINE | | | SERVICES, | | | | | | CORE | | + + + + + + | BARBITURATE | Negative | Negative | [facility] | | | S, URINE | | | LABORATORY | | | | | | SERVICES, | | | | | | CORE | | + + + + + + | BARBITURATE | <20 | <200 ng/mL | [facility] | | | S CONC, | | | LABORATORY | | | URINE | | | SERVICES, | | | | | | CORE | | + + + + + + | BENZODIAZEP | Negative | Negative | [facility] | | | KATLYN, URINE | | | LABORATORY | | | | | | SERVICES, | | | | | | CORE | | + + + + + + | BENZODIAZEP | <30 | <200 ng/mL | [facility] | | | INE CONC, | | | LABORATORY | | | URINE | | | SERVICES, | | | | | | CORE | | + + + + + + | Cocaine, | Negative | Negative | [facility] | | | Urine | | | LABORATORY | | | | | | SERVICES, | | | | | | CORE | | + + + + + + | COCAINE | <35 | <300 ng/mL | [facility] | | | CONC, URINE | | | LABORATORY | | | | | | SERVICES, | | | | | | CORE | | + + + + + + | OPIATES, | Positive (A)Comment: To | Negative | [facility] | | | URINE | be confirmed by | | LABORATORY | | | | alternate method | | SERVICES, | | | | | | CORE | | + + + + + + | OPIATE | 844 (H) | <300 ng/mL | [facility] | | | CONC, URINE | | | LABORATORY | | | | | | SERVICES, | | | | | | CORE | | + + + + + + | CANNABINOID | Negative | Negative | [facility] | | | S, URINE | | | LABORATORY | | | | | | SERVICES, | | | | | | CORE | | + + + + + + | CANNABINOID | <15 | <50 ng/mL | [facility] | | | CONC, | | | LABORATORY | | | URINE | | | SERVICES, | | | | | | CORE | | + + + + + + | METHADONE, | Negative | Negative | [facility] | | | URINE | | | LABORATORY | | | | | | SERVICES, | | | | | | CORE | | + + + + + + | METHADONE | <107 | <300 ng/mL | [facility] | | | CONC, URINE | | | LABORATORY | | | | | | SERVICES, | | | | | | CORE | | + + + + + + | OXYCODONE, | Negative | Negative | [facility] | | | URINE | | | LABORATORY | | | | | | SERVICES, | | | | | | CORE | | + + + + + + + + | Specimen | + + | Urine - Urine | | (substance) | + + + + + | Narrative | Performed At | + + + | Minimum drug concentration yielding a positive urine drug screen | [facility] | | Amphetamines >=1000 ng/mL | LABORATORY | | Barbiturates >=200 ng/mL | SERVICES, CORE | | Benzodiazepine >=200 ng/mL Cocaine | | | >=300 ng/mL Methadone | | | >=300 ng/mL Opiates >=300 ng/mL | | | Oxycodone >=100 ng/mL THC - | | | Cannabinoid >=50 ng/mL Screening results are not | | | confirmed by alternate method unless requested. Results are to be | | | used for medical (i.e. treatment) purposes only. The reported | | | result is an estimated concentration of drug that can be detected by | | | the method of analysis. Amphetamine Note: Benzphetamine and | | | Selegiline may produce positive results with this assay. Opiates | | | Notes: Therapeutic doses of Ofloxcin (Floxin) or Levofloxacin | | | (Levaquin) may produce positive results with this assay. The | | | substaces being tested for must include Amphetamines, Benzodiazepines, | | | Cocaine, Alcohol, Cannabinoids, Opiates. | | + + + + + + + + | Performing | Address | City/State/Zipcode | Phone Number | | Organization | | | | + + + + + | [facility] | [address] | [place] [address] | | | [place], [place] | [address] | | | + + + + + 12 LEAD ECG (01/13/2018 4:50 AM PDT) + + + + + + | Component | Value | Ref Range | Performed | Pathologist | | | | | At | Signature | + + + + + + | VENTRICULAR | 107 | bpm | [facility] | | | RATE | | | OF | | | | | | CARDIOLOGY | | + + + + + + | ATRIAL RATE | 106 | ms | [facility] | | | | | | OF | | | | | | CARDIOLOGY | | + + + + + + | P-R | 150 | ms | [facility] | | | INTERVAL | | | OF | | | | | | CARDIOLOGY | | + + + + + + | P AXIS | 64 | deg | [facility] | | | | | | OF | | | | | | CARDIOLOGY | | + + + + + + | QRS | 105 | ms | [facility] | | | DURATION | | | OF | | | | | | CARDIOLOGY | | + + + + + + | QT | 387 | ms | [facility] | | | | | | OF | | | | | | CARDIOLOGY | | + + + + + + | QTCB | 515 | ms | [facility] | | | | | | OF | | | | | | CARDIOLOGY | | + + + + + + | R AXIS | -40 | deg | [facility] | | | | | | OF | | | | | | CARDIOLOGY | | + + + + + + | T AXIS | -32 | deg | [facility] | | | | | | OF | | | | | | CARDIOLOGY | | + + + + + + | ECG | Sinus tachycardia | | [facility] | | | IMPRESSION | | | OF | | | | | | CARDIOLOGY | | + + + + + + | ECG | Probable left atrial | | [facility] | | | IMPRESSION | enlargement | | OF | | | | | | CARDIOLOGY | | + + + + + + | ECG | Left ventricular | | [facility] | | | IMPRESSION | hypertrophy | | OF | | | | | | CARDIOLOGY | | + + + + + + | ECG | Borderline T | | [facility] | | | IMPRESSION | abnormalities, inferior | | OF | | | | leads | | CARDIOLOGY | | + + + + + + | ECG | Prolonged QT interval- | | [facility] | | | IMPRESSION | ABNORMAL ECG - | | OF | | | | | | CARDIOLOGY | | + + + + + + | ECG | Electronically signed | | [facility] | | | IMPRESSION | by: KATHY GUTIERREZ | | OF | | | | 01-15-2018 17:36:57 | | CARDIOLOGY | | + + [...] + + + + + | [facility] | [address] | [place], [place] | | | CARDIOLOGY | [address] | [address] | | + + + + + documented in this encounter Visit Diagnoses Not on filedocumented in this encounter Administered Medications + +--------+ +-------+------+------+ | Medication Order | MAR | Action | Dose | Rate | Site | | | Action | Date | | | | + +--------+ +-------+------+------+ | amLODIPine (NORVASC) tablet 10 | Given | 01/19/20 | 10 mg | | | | mg 10 mg, oral, DAILY, First | | 18 8:23 | | | | | dose on Thu01/13/18 at 0230, | | AM PDT | | | | | Until Discontinued | | | | | | + +--------+ +-------+------+------+ +-------+ +-------+---+---+ | Given | 01/18/20 | 10 mg | | | | | 18 8:18 | | | | | | AM PDT | | | | +-------+ +-------+---+---+ | Given | 01/17/20 | 10 mg | | | | | 18 8:12 | | | | | | AM PDT | | | | +-------+ +-------+---+---+ +---+---+ | | | +---+---+ + +-------+ +-------+---+---+ | bisacodyl (DULCOLAX) | Given | 01/16/20 | 10 mg | | | | suppository 10 mg 10 mg, rectal, | | 18 11:46 | | | | | DAILY NEEDED, Starting Fri | | AM PDT | | | | | 01/15/18 at 1126, Until Mon | | | | | | | 01/18/18 at 1927, constipation | | | | | | + +-------+ +-------+---+---+ + +---+ | | | + +---+ | bisacodyl EC (DULCOLAX) tablet | | | 5 mg 5 mg, oral, DAILY | | | NEEDED, Starting 01/16/18 at | | | 0749, Until 01/18/18 at 1927, | | | 2nd in line from constipation | | + +---+ | | | + +---+ + +-------+ +-------+---+--------+ | bupivacaine-EPINEPHrine | Given | 01/15/20 | 10 mL | | Right | | (MARCAINE-EPINEPHRINE) 0.25 | | 18 8:44 | | | Hip | | %-1:200,000 injection | | AM PDT | | | | | INTRAPROCEDURE PRN, Starting Zoya | | | | | | | 01/14/18 at 0844, Until Zoya | | | | | | | 01/14/18 at 0916 | | | | | | + +-------+ +-------+---+--------+ +---+---+ | | | +---+---+ + +-------+ + +---+---+ | calcium carbonate chewable | Given | 01/19/20 | 200 mg | | | | (TUMS) tablet 200 mg elemental | | 18 2:00 | elementa | | | | 200 mg elemental (500 mg total | | AM PDT | l | | | | salt), oral, EVERY 2 HOURS | | | | | | | NEEDED, Starting 01/18/18 at | | | | | | | 0150, Until Thu01/18/18 at 1928, | | | | | | | dyspepsia | | | | | | + +-------+ + +---+---+ +---+---+ | | | +---+---+ + +-------+ + +---+---+ | calcium-vitamin D (OS-TURNER 500 + | Given | 01/19/20 | 1 tablet | | | | D) 500 mg(1,250mg) -200 unit 1 | | 18 8:23 | | | | | tablet 1 tablet, oral, TWICE | | AM PDT | | | | | DAILY, First dose on 01/16/18 | | | | | | | at 1030, Until Discontinued | | | | | | + +-------+ + +---+---+ +-------+ + +---+---+ | Given | 01/18/20 | 1 tablet | | | | | 18 8:34 | | | | | | PM PDT | | | | +-------+ + +---+---+ | Given | 01/18/20 | 1 tablet | | | | | 18 8:18 | | | | | | AM PDT | | | | +-------+ + +---+---+ +---+---+ | | | +---+---+ + +-------+ +---------+---+---+ | carvedilol (COREG) tablet 12.5 | Given | 01/19/20 | 12.5 mg | | | | mg 12.5 mg, oral, TWICE DAILY | | 18 8:23 | | | | | WITH MEALS, First dose on Sun | | AM PDT | | | | | 01/17/18 at 0730, Until | | | | | | | Discontinued | | | | | | + +-------+ +---------+---+---+ +-------+ +---------+---+---+ | Given | 01/18/20 | 12.5 mg | | | | | 18 6:00 | | | | | | PM PDT | | | | +-------+ +---------+---+---+ | Given | 01/18/20 | 12.5 mg | | | | | 18 7:30 | | | | | | AM PDT | | | | +-------+ +---------+---+---+ +---+---+ | | | +---+---+ + +-------+ +-------+---+---------+ | enoxaparin (LOVENOX) injection | Given | 01/18/20 | 40 mg | | Abdomen | | 40 mg 40 mg, subcutaneous, EVERY | | 18 8:34 | | | | | EVENING, First dose on Thu | | PM PDT | | | | | 01/15/18 at 2100, Until | | | | | | | Discontinued | | | | | | + +-------+ +-------+---+---------+ +-------+ +-------+---+---------+ | Given | 01/17/20 | 40 mg | | Abdomen | | | 18 8:27 | | | | | | PM PDT | | | | +-------+ +-------+---+---------+ | Given | 01/16/20 | 40 mg | | Abdomen | | | 18 9:13 | | | | | | PM PDT | | | | +-------+ +-------+---+---------+ + +---+ | | | + +---+ | lactulose (ENULAC) liquid 10 g | | | 10 g (15 mL), oral, TWICE DAILY | | | NEEDED, Starting 01/17/18 | | | at 1647, Until Thu01/18/18 at | | | 1928, constipation 3rd line | | + +---+ | | | + +---+ + +-------+ +--------+---+---+ | magnesium citrate liquid 296 mL | Given | 01/18/20 | 296 mL | | | | 296 mL, oral, DAILY NEEDED, | | 18 12:35 | | | | | Starting 01/15/18 at 1430, | | PM PDT | | | | | Until Thu01/18/18 at 1928, second | | | | | | | for constipation | | | | | | + +-------+ +--------+---+---+ +---+---+ | | | +---+---+ + +-------+ +------+---+---+ | melatonin tablet 3 mg 3 mg, | Given | 01/18/20 | 3 mg | | | | oral, AT BEDTIME, First dose | | 18 8:35 | | | | | (after last modification) on Fri | | PM PDT | | | | | 01/15/18 at 2200, Until | | | | | | | Discontinued | | | | | | + +-------+ +------+---+---+ +-------+ +------+---+---+ | Given | 01/17/20 | 3 mg | | | | | 18 8:28 | | | | | | PM PDT | | | | +-------+ +------+---+---+ | Given | 01/16/20 | 3 mg | | | | | 18 9:14 | | | | | | PM PDT | | | | +-------+ +------+---+---+ +---+---+ | | | +---+---+ + +-------+ +--------+---+---+ | mineral oil (FLEET MINERAL OIL) | Given | 01/18/20 | 133 mL | | | | rectal enema 133 mL 133 mL, | | 18 6:25 | | | | | rectal, DAILY NEEDED, Starting | | PM PDT | | | | | 01/17/18 at 1622, Until Mon | | | | | | | 01/18/18 at 1928, constipation | | | | | | + +-------+ +--------+---+---+ +---+---+ | | | +---+---+ + +-------+ + +---+---+ | multivitamin-minerals 1 tablet | Given | 01/19/20 | 1 tablet | | | | 1 tablet, oral, DAILY, First | | 18 8:22 | | | | | dose on 01/16/18 at 1030, | | AM PDT | | | | | Until Discontinued | | | | | | + +-------+ + +---+---+ +-------+ + +---+---+ | Given | 01/18/20 | 1 tablet | | | | | 18 8:18 | | | | | | AM PDT | | | | +-------+ + +---+---+ | Given | 01/17/20 | 1 tablet | | | | | 18 11:30 | | | | | | AM PDT | | | | +-------+ + +---+---+ +---+---+ | | | +---+---+ + +-------+ +--------+---+---+ | mycophenolate (CELLCEPT) tablet | Given | 01/19/20 | 500 mg | | | | 500 mg 500 mg, oral, TWICE | | 18 10:26 | | | | | DAILY WITH MEALS (MMF), First | | AM PDT | | | | | dose on Thu01/13/18 at 0900, | | | | | | | Until Discontinued | | | | | | + +-------+ +--------+---+---+ +-------+ +--------+---+---+ | Given | 01/18/20 | 500 mg | | | | | 18 8:35 | | | | | | PM PDT | | | | +-------+ +--------+---+---+ | Given | 01/18/20 | 500 mg | | | | | 18 8:18 | | | | | | AM PDT | | | | +-------+ +--------+---+---+ + +---+ | | | + +---+ | nicotine polacrilex (COMMIT) | | | lozenge 2 mg 2 mg, oral, EVERY 1 | | | HOUR NEEDED, Starting Zoya | | | 01/14/18 at 1619, Until Mon | | | 01/18/18 at 1927, Withdrawal | | | symptoms | | + +---+ | | | + +---+ + +-------+ +------+---+---+ | ondansetron (ZOFRAN) tablet 8 | Given | 01/15/20 | 8 mg | | | | mg 8 mg, oral, EVERY 12 HOURS | | 18 2:13 | | | | | NEEDED, Starting Thu01/13/18 at | | AM PDT | | | | | 0159, Until Thu01/18/18 at 1927, | | | | | | | nausea/vomiting, first line | | | | | | + +-------+ +------+---+---+ +---+---+ | | | +---+---+ + +-------+ +------+---+---+ | oxyCODONE (immediate release) | Given | 01/19/20 | 5 mg | | | | (ROXICODONE) tablet 5-10 mg 5-10 | | 18 12:37 | | | | | mg, oral, EVERY 4 HOURS | | PM PDT | | | | | NEEDED, Starting 01/13/18 at | | | | | | | 0417, Until 01/18/18 at 1928, | | | | | | | moderate pain | | | | | | + +-------+ +------+---+---+ +-------+ +------+---+---+ | Given | 01/19/20 | 5 mg | | | | | 18 11:27 | | | | | | AM PDT | | | | +-------+ +------+---+---+ | Given | 01/19/20 | 5 mg | | | | | 18 8:25 | | | | | | AM PDT | | | | +-------+ +------+---+---+ +---+---+ | | | +---+---+ + +-------+ +------+---+---+ | polyethylene glycol (MIRALAX) | Given | 01/18/20 | 17 g | | | | packet 17 g 17 g, oral, TWICE | | 18 8:34 | | | | | DAILY, First dose (after last | | PM PDT | | | | | modification) on Thu01/15/18 at | | | | | | | 2100, Until Discontinued | | | | | | + +-------+ +------+---+---+ +-------+ +------+---+---+ | Given | 01/18/20 | 17 g | | | | | 18 8:18 | | | | | | AM PDT | | | | +-------+ +------+---+---+ | Given | 01/17/20 | 17 g | | | | | 18 8:27 | | | | | | PM PDT | | | | +-------+ +------+---+---+ +---+---+ | | | +---+---+ + +-------+ +------+---+---+ | polyethylene glycol (MIRALAX) | Given | 01/15/20 | 34 g | | | | packet 34 g 34 g, oral, THREE | | 18 4:17 | | | | | TIMES DAILY NEEDED, Starting | | PM PDT | | | | | 01/13/18 at 0159, Until Mon | | | | | | | 01/18/18 at 1928, 1st line - for | | | | | | | no BM for 2 days | | | | | | + +-------+ +------+---+---+ +---+---+ | | | +---+---+ + +-------+ +--------+---+---+ | potassium chloride SR (K-DUR) | Given | 01/19/20 | 20 mEq | | | | tablet 20 mEq 20 mEq, oral, | | 18 8:23 | | | | | DAILY, First dose (after last | | AM PDT | | | | | modification) on 01/16/18 at | | | | | | | 1030, Until Discontinued | | | | | | + +-------+ +--------+---+---+ +-------+ +--------+---+---+ | Given | 01/18/20 | 20 mEq | | | | | 18 8:18 | | | | | | AM PDT | | | | +-------+ +--------+---+---+ | Given | 01/17/20 | 20 mEq | | | | | 18 11:30 | | | | | | AM PDT | | | | +-------+ +--------+---+---+ +---+---+ | | | +---+---+ + +-------+ +------+---+---+ | prochlorperazine (COMPAZINE) | Given | 01/15/20 | 5 mg | | | | injection 5-10 mg 5-10 mg, | | 18 4:19 | | | | | intravenous, EVERY 6 HOURS | | AM PDT | | | | | NEEDED, Starting Thu01/13/18 at | | | | | | | 0159, Until Thu01/18/18 at 1928, | | | | | | | nausea/vomiting not responding to | | | | | | | ondansetron and unable to take | | | | | | | oral prochlorperazine | | | | | | + +-------+ +------+---+---+ +---+---+ | | | +---+---+ + +-------+ +---------+---+---+ | senna-docusate (SENOKOT S) | Given | 01/19/20 | 2 | | | | 8.6-50 mg 2 tablet 2 tablet, | | 18 8:22 | tablets | | | | oral, TWICE DAILY, First dose on | | AM PDT | | | | | Thu01/13/18 at 0900, Until | | | | | | | Discontinued | | | | | | + +-------+ +---------+---+---+ +-------+ +---------+---+---+ | Given | 01/18/20 | 2 | | | | | 18 8:34 | tablets | | | | | PM PDT | | | | +-------+ +---------+---+---+ | Given | 01/18/20 | 2 | | | | | 18 8:18 | tablets | | | | | AM PDT | | | | +-------+ +---------+---+---+ +---+---+ | | | +---+---+ + +-------+ +-------+---+---+ | simethicone chew (MYLICON) | Given | 01/17/20 | 80 mg | | | | tablet 80 mg 80 mg, oral, THREE | | 18 2:18 | | | | | TIMES DAILY NEEDED, Starting | | AM PDT | | | | | 01/16/18 at 0205, Until Mon | | | | | | | 01/18/18 at 1928, bloating | | | | | | + +-------+ +-------+---+---+ +---+---+ | | | +---+---+ + +-------+ +------+---+---+ | sirolimus (RAPAMUNE) tablet 3 | Given | 01/19/20 | 3 mg | | | | mg 3 mg, oral, DAILY, First dose | | 18 6:25 | | | | | (after last modification) on Zoya | | AM PDT | | | | | 01/14/18 at 0700, Until | | | | | | | Discontinued | | | | | | + +-------+ +------+---+---+ +-------+ +------+---+---+ | Given | 01/18/20 | 3 mg | | | | | 18 7:30 | | | | | | AM PDT | | | | +-------+ +------+---+---+ | Given | 01/17/20 | 3 mg | | | | | 18 8:12 | | | | | | AM PDT | | | | +-------+ +------+---+---+ +---+---+ | | | +---+---+ documented in this encounter
--- OUTSIDE RECORDS SUMMARY | ~2019-05-14 | XMS | Encounter Summary ---
Demographics + + + | Address | [address] | | | [place] [address] | + + + | Home Phone [...] + + | Author | [facility] | + + + | Organization | [facility] | + + + | Address | Unknown | + + + | Phone | Unavailable | + + + Support + + +---------+ + | Name | Relationship | Address | Phone | + + +---------+ + | Shruthi Merino | ECON | Unknown | | + + +---------+ + | Haventasha Whtiewoody | ECON | Unknown | | + + +---------+ + Care Team Providers + +------+ + | Care Recreation Director Name | Role | Phone | [...] | | | | | | [address] | | | | | | | [address] | | | | | | | [facility] | | | | | | | Hospital | | | | | | | [place], [place] | | | | | | | [address] | | | | | | | Phone: | | | | | | | [phone] | +--------+--------+ + + + + Encounter Details +--------+ + + + + | Date | Type | Department | Care Team | Description | +--------+ + + + + | 09/11/ | Hospital | Cardiac | Sj, [facility] | | | 2019 | Encounter | Non-Invasive Testing | [address] | | | | | at [address] | [facility] | | | | | [address] | [facility] [place] [address] | | | | | [address] | | | | | | Mailcode: [id number] | | | | | | [place] | | | | | | [facility], | | | | | | [place] [address] | | | | | | [phone] | | | +--------+ + + + [...] + + +---------+ + + | amLODIPine 10 mg | Take 1 tablet by | 30 | 0 | 09/11/19 | | | oral tablet | mouth once daily. | tablet | | 19 | 9 | + + + +---------+ + + | chlorthalidone 25 | Take 0.5 tablets by | 15 | 0 | 09/10/19 | | | mg oral tablet | mouth once daily. | tablet | | 19 | 9 | + + + +---------+ + + | furosemide 20 mg | Take 0.5 tablets by | 6 | 0 | 09/13/19 | | | oral tablet | mouth three times | tablet | | 19 | 9 | | | weekly (on Thursday, | | | | | | | Thursday and | | | | | | | Thursday). | | | | | + + + +---------+ + + | metoprolol | Take 1 tablet by | 30 | 0 | 09/10/19 | | | succinate 100 mg | mouth once daily. | tablet | | 19 | 9 | | oral tablet extended | | | | | | | release 24 hr | | | | | | + + + +---------+ + + documented as of this encounter Progress Joaquina Slater - 09/11/2018 4:53 PM PST30 day Cardiac event monitor placement complete. Return instructions discussed Report to follow when monitor is returned. Monitor #: [id number] Expected completion date: 10/11/2018 documented in this enco unter Plan of Treatment +--------+---------+ + + + | Date | Type | Specialty | Care Team | Description | +--------+---------+ + + + | 06/17/ | Office | Otolaryngology | Shlomo Roach MD | | | 2018 | Visit | | [address] | | | | | | [place], | | | | | | [place] [address] | | | | | | [phone] | | | | | | | | +--------+---------+ + + + documented as of this encounter Procedures + +--------+ + + + | Procedure Name | Priori | Date/Time | Associated Diagnosis | Comments | | | ty | | | | + +--------+ + + + | CARDIAC EVENT | | 09/11/2018 | | Results for this | | MONITOR | | 12:00 AM | | procedure are in the | | | | PST | | results section. | + +--------+ + + + documented in this encounter Results CARDIAC EVENT MONITOR (09/11/2018 12:00 AM PST) + + + | Narrative | Performed At | + + + | | | + + + documented in this encounter Visit Diagnoses + + | Diagnosis | + + | Palpitation Palpitations | + + documented in this encounter"
--- OUTSIDE RECORDS SUMMARY | ~2019-05-14 | XMS | Encounter Summary ---
Demographics + + + | Address | [address] | | | [place] [address] | + + + | Home Phone [...] | [facility] | + + + | Organization | [facility] | + + + | Address | [...] Team Providers + +------+ + | Care Grinder Mill Operator Name | Role | Phone | + +------+ + | Ritesh England PA-C | PCP | | + +------+ + Encounter Details +--------+ + + + + | Date | Type | Department | Care Team | Description | +--------+ + + + + | 05/12/ | Telephone | Otolaryngology | Nikole Valdivia MD | | | 2019 | | Head and Neck | [address] | | | | | Surgery Services at | [address] [place], | | | | | [facility] [address] | [place] [address] | | | | | Josey Mailcode: | [phone] | | | | | [facility] | | | | | | and Healing, | | | | | | [address] | | | | | | [place], [place] | | | | | | [address] | | | | | | [phone] | | | +--------+ + + + [...] | | | | | [address] [place], | | | | | | [place] [address] | | | | | | [phone] | | | | | | | | +--------+---------+ + + + documented as of this encounter Visit Diagnoses Not on filedocumented in this encounter"
--- OUTSIDE RECORDS SUMMARY | ~2019-05-14 | XMS | Encounter Summary ---
Demographics + + + | Address | [address] | | | [place] [address] | + + + | Home Phone | | + + + | Preferred Language | Unknown | + + + | Marital Status | Single | + + + | Faith Affiliation | BAP | + + + | Race | White | + + + | Ethnic Group | Not or | + + + Author + + + | Author | [facility] | + + + | Organization | [facility] [employer] [facility] | [...] Team Providers + +------+ + | Care Leather Scraper Name | Role | Phone | + +------+ + | Ritesh England PA-C | PCP | | + +------+ + Encounter Details +--------+ + + + + | Date | Type | Department | Care Team | Description | +--------+ + + + + | 11/16/ | Pharmacy | [facility] | | | | 2019 | Visit | [address] [facility] | | | | | | [facility] [address] | | | | | | [place] [address] | | | | | | [phone] | | | +--------+ + + + [...] | | 2019 | Visit | | [address] | | | | | | [address] [place], | | | | | | [place] [address] | | | | | | [phone] | | | | | | | | +--------+---------+ + + + documented as of this encounter Visit Diagnoses Not on filedocumented in this encounter"
--- OUTSIDE RECORDS SUMMARY | ~2019-05-14 | XMS | Encounter Summary ---
Demographics + + + | Address | [address] | | | [place] [address] | + + + | Home Phone | | + + + | Preferred Language | Unknown | + + + | Marital Status | Single | + + + | Taoism Affiliation | BAP | + + + | Race | White | + + + | Ethnic Group | Not or | + + + Author + + + | Author | [facility] | + + + | Organization | [facility] | + + + | [...] Team Providers + +------+ + | Care Consumer Relations Specialist Name | Role | Phone | + +------+ + | Ritesh England PA-C | PCP | | + +------+ + Reason for Visit + + + | Reason | Comments | + + + | Care Questions | follow-up missing clinic today | + + + Encounter Details +--------+ + + + + | Date | Type | Department | Care Team | Description | +--------+ + + + + | 02/16/ | Telephone | Transplant | Ana Paula Macedo, | Care Questions | | 2018 | | Coordinators [address] | RN [address] | (follow-up missing | | | | [address] [facility] | [facility] [address] | clinic today) | | | | Rd [place], [place] | [place], [place] | | | | | [address] | [address] | | | | | [phone] | | | +--------+ + + + [...] | | | | [address] [place], | | | | | | [place] [address] | | | | | | [phone] | | | | | | | | +--------+---------+ + + + documented as of this encounter Visit Diagnoses Not on filedocumented in this encounter"
--- OUTSIDE RECORDS SUMMARY | ~2019-05-14 | XMS | Encounter Summary ---
Demographics + + + | Address | [address] | | | [place] [address] | + + + | Home Phone | | + + + | Preferred Language | Unknown | + + + | Marital Status | Single | + + + | Jainism Affiliation | BAP | + + + | Race | White | + + + | Ethnic Group | Not or | + + + Author + + + | Author | [facility] | + + + | Organization | [facility] | + + + | [...] Team Providers + +------+ + | Care Chainstitch Hemmer Name | Role | Phone | + [...] + + | 04/22/ | Hospital | [facility] [address] | Shlomo Roach MD | | | 2017 - | Encounter | [address] | [address] | | | | | Mailcode: [id number] | [address] [place], | | | 04/23/ | | [place] | [place] [address] | | | 2017 | | [place], [place] | [phone] | | | | | [address] | | | | | | [phone] | | | +--------+ + + + [...] Pressure | 161/74 | 04/23/2017 9:30 AM | | | | | PDT | | + + + + + | Pulse | 50 | 04/23/2017 9:30 AM | | | | | PDT | | + + + + + | Temperature | 36.6 C (97.9 F) | 04/23/2017 9:30 AM | | | | | PDT | | + + + + + | Respiratory Rate | 16 | 04/23/2017 9:30 AM | | | | | PDT | | + + + + + | Oxygen Saturation | 98% | 04/23/2017 9:30 AM | | | | | PDT | | + + + + + | Inhaled Oxygen | - | - | | | Concentration | | | | + + + + + | Weight | 67.3 kg (148 lb 4.8 | 04/22/2017 6:16 PM | | | | oz) | PDT | | + + + + + | Height | 170.2 cm (5' 7") | 04/22/2017 6:16 PM | | | | | PDT | | + + + + + | Body Mass Index | 23.23 | 04/22/2017 6:16 PM | | | | | PDT | | + + + + + documented in this encounter Discharge Summaries Juanjose Gupta PA-C - 04/23/2017 9:19 AM PDT DOS: 04/23/2017 9:19 AM INPATIENT PHYSICIAN DISCHARGE [...] At the end of the procedure, the patien t was extubated, and transferred to the post-anesthesia care unit. Once recovered, the patie nt was transferred to the post-surgical patten where he remained for the rest of the hospitali zation. The patient had no post-operative events The patient was admitted to floor for observation and post-operative management. On the [facility] or the patient was stable and without [...] to 4:30pm, call the Otolaryngology clinic at [phone]. After hours, weekends, and holidays, call the [facility] plant operator at [phone] and as k to have the ENT doctor on-call paged Future Appointments Date Time Provider Department Center 04/30/2017 10:10 AM Brenda Christensen MD [facility] Comprehensiv 11/17/2017 11:00 AM Valente Welch MD,MPH [...] and Neck Surgery Mail Code [id number] [address] [facility] [place] [address] Pager [phone] Consult/Night/Weekend Pager: [phone] documented in this encounter Medications at Time of Discharge + + + +---------+ + + | Medication | Sig | Dispensed | Refills | Start | End Date | | | | | | Date | | + + + +---------+ + + | cephALEXin 500 mg | [...] | | | | | [address] [place], | | | | | | [place] [address] | | | | | | [phone] | | | | | | | [...] + | PROCEDURE NOTE | Routin | 04/22/2017 | | Results for this | | | e | 3:55 PM | | procedure are in the | | | | PDT | | results section. | + +--------+ + + + | EXCISION LESION | Electi | 04/22/2017 | Squamous cell | | | FACE, HEAD OR NECK | ve | 1:29 PM | carcinoma of skin of | | | | Surgic | PDT | other parts of face | | | | al | | | | + +--------+ + + + | INTRAPROCEDURE | Routin | 04/22/2017 | | Results for this | | IMAGING | e | 12:40 PM | | procedure are in the | | | | PDT | | results section. | + +--------+ + + + | CARDIOLOGY | | 04/22/2017 | | Results for this | | | | 12:00 AM | | procedure are in the | | | | PDT | | results section. | + +--------+ + + + | SURGICAL PATHOLOGY | Routin | 04/22/2017 | | Results for this | | | e | | | procedure are in the | | | | | | results section. | + +--------+ + + + documented in this encounter Results OPERATION RECORD (04/23/2017 5:00 PM PDT) + + | Procedure Note | + + | Shlomo Roach MD - 04/22/2017 4:12 PM PDT Date of Service: 04/22/2017 Attending | | Surgeon:Shlomo Roach MD Managing Partner [employer] [place](s):Richard Clemente MD. | | Preoperative Diagnosis: Skin [...] 04/22/2017 15:12:11DT: | | 04/22/2017 16:12:47Job #: [id number] | |There was no evidence of any bleeding or hematomas. All flaps looked viable at the end of the procedure. He was woken up, extubated, and will be followed carefully. | | | | | | | |Shlomo Roach MD | |TELLY/SABRA | | | | | | /[id number] | + + PROCEDURE NOTE (04/22/2017 3:55 PM PDT) + + + | Narrative | Performed At | + + + | Richard Clemente MD 04/22/2017 3:55 PM Department of | | | Otolaryngology/Head and Neck Surgery BRIEF OPERATIVE NOTE v1.0 | | | Simeon Michaels [id number] Procedure Date: 04/22/17 | | | Attending Physician: Shlomo Roach Assistants: Richard Clemente. | | | Preoperative Diagnosis: Skin cancers Postoperative Diagnosis: same | | | Procedure Performed (w/ laterality): excision of 4 malignant skin | | | cancers and reconstruction using local flaps and adjacent tissue | | | transfers Anesthesia: LMA, general Estimated Blood Loss: 25ml | | | Fluids: see anesthesia record Specimens: skin cancers x4 | | | Complications: none Drains: none Findings: as dictated | | | Plan: Post-op destination(home/patten/ICU): pacu, patten Airway | | | (normal/intubated/trach): normal Diet: regular | | | Thromboprophylaxis/Anticoagulation: ambulation Ava: n/a Richard | | | Azzi, MD | | + + + INTRAPROCEDURE IMAGING (04/22/2017 12:40 PM PDT) + + | Specimen | + + | | + + + + + | Narrative | Performed At | + + + | See admission or procedure notes for details of any intraprocedure | | | images obtained. | | + + + SURGICAL PATHOLOGY (04/22/2017) + + + + + + | Component | Value | Ref Range | Performed | Pathologist | | | | | At | Signature | + + + + + + | SURGICAL | SOURCE OF SPECIMEN:A | | [facility] | | | PATHOLOGY | Anterior neck | | DEPARTMENT | | | | lesionSOURCE OF | | OF | | | | SPECIMEN:B Lower right | | PATHOLOGY | | | | face lesionSOURCE OF | | | | | | SPECIMEN:C Nasolabial | | | | | | lesion rightSOURCE OF | | | | | | SPECIMEN:D Right lateral | | | | | | eye Final | | | | | | Pathologic Diagnosis:A. | | | | | | Anterior neck lesion, | | | | | | excision: Invasive | | | | | | moderately | | | | | | differentiated squamous | | | | | | cell carcinoma, 0.9 cm | | | | | | ingreatest dimension and | | | | | | invading to a depth of | | | | | | 0.2 cm, surgical | | | | | | marginsnegative. | | | | | | B. Lower right face | | | | | | lesion, | | | | | | excision:Invasive | | | | | | moderately | | | | | | differentiated squamous | | | | | | cell carcinoma, 1.9 cm | | | | | | ingreatest dimension and | | | | | | invading to a depth of | | | | | | 0.4 cm, extending | | | | | | tounoriented peripheral | | | | | | specimen margins. | | | | | | C. Nasal labial lesion, | | | | | | excision:Invasive | | | | | | moderately | | | | | | differentiated squamous | | | | | | cell carcinoma,, 0.7 cm | | | | | | ingreatest dimension and | | | | | | invading to a depth of | | | | | | 0.2 cm, surgical | | | | | | marginsnegative for in | | | | | | situ and invasive | | | | | | carcinoma.Basal cell | | | | | | carcinoma, superficial | | | | | | and nodular subtypes, | | | | | | 0.2 cm in | | | | | | greatestdimension and | | | | | | invading to a depth of | | | | | | 0.2 cm, surgical margins | | | | | | negative.Actinic | | | | | | keratosis extending to | | | | | | unoriented tip margin. | | | | | | D. Right lateral | | | | | | eye, excision: | | | | | | Invasive moderately | | | | | | differentiated squamous | | | | | | cell carcinoma, 0.2 cm | | | | | | ingreatest dimension and | | | | | | invading to a depth of | | | | | | 0.1 cm, surgical | | | | | | marginsnegative. | | | | | | Comment: None of the | | | | | | specimens show the | | | | | | presence of perineural | | | | | | orlymphovascular space | | | | | | invasion. Case | | | | | | reviewed by:Evan Tucker, | | | | | | M.D./ Surgical Pathology | | | | | | FellowMicrick Patel. | | | | | | Akiko MMarianela/ | | | | | | Pathologist | | | | | | Clinical History:Per | | | | | | Epic: Diagnosis | | | | | | of squamous cell | | | | | | carcinoma of the face. | | | | | | Gross | | | | | | Description:Received are | | | | | | 4 specimens fresh in | | | | | | containers labeled with | | | | | | patient's nameand | | | | | | medical record | | | | | | #[id number].A. Anterior | | | | | | neck lesion: Received | | | | | | is a 2.8 x 2 x 1.4 cm | | | | | | unoriented tanpink skin | | | | | | ellipse remarkable for a | | | | | | 2.5 x 1.3 cm lesion | | | | | | rising 0.7 cm abovethe | | | | | | epidermal surface. | | | | | | Roughened granular | | | | | | lesion extends to the | | | | | | skin edges(margin inked | | | | | | black). Friable | | | | | | superficial lesion is | | | | | | debulked, and | | | | | | thespecimen is entirely | | | | | | submitted.A1-2, serial | | | | | | sections B. | | | | | | Lower right face lesion: | | | | | | Received is a 5.5 x 2.3 | | | | | | x 1.5 cm unorientedtan | | | | | | pink skin ellipse | | | | | | remarkable for a central | | | | | | 2.3 x 1.8 cm lesion | | | | | | rising0.4 cm above the | | | | | | epidermal surface. Also | | | | | | noted at one apex is a | | | | | | 0.9 x 0.6 x0.4 cm | | | | | | additional lesion. | | | | | | Roughened granular | | | | | | lesions extend to the | | | | | | skinedges (margin inked | | | | | | black). Friable | | | | | | superficial lesion is | | | | | | debulked, and | | | | | | thespecimen is entirely | | | | | | submitted.B1-4, serial | | | | | | sections C. | | | | | | Nasal labial lesion: | | | | | | Received is a 2.4 x 1.8 | | | | | | x 0.9 cm unoriented | | | | | | tanpink circular skin | | | | | | excision remarkable for | | | | | | a 1.7 x 1 cm lesion | | | | | | arising 0.5cm above the | | | | | | epidermal surface area. | | | | | | Roughened granular | | | | | | lesion extends tothe | | | | | | skin edges (margin inked | | | | | | black). Friable | | | | | | superficial lesion | | | | | | isdebulked, and the | | | | | | specimen is entirely | | | | | | submitted.C1-2, serial | | | | | | sections D. | | | | | | Right lateral eye: | | | | | | Received is a 3 x 2 x | | | | | | 0.9 cm unoriented reyna | | | | | | pinkirregular skin | | | | | | excision remarkable for | | | | | | a 2 x 1.5 cm lesion | | | | | | arising 0.3 cmabove the | | | | | | epidermal surface area. | | | | | | Roughened granular | | | | | | lesion extends to | | | | | | theskin edges (margin | | | | | | inked black). The | | | | | | specimen is serially | | | | | | section andentirely | | | | | | submitted.D1-3, serial | | | | | | sections (AMJ) | | | | | | My electronic | | | | | | signature indicates that | | | | | | I have personally | | | | | | reviewed alldiagnostic | | | | | | slides, the gross and/or | | | | | | microscopic portion of | | | | | | thisreport and | | | | | | formulated the final | | | | | | diagnosis. 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 | + + documented in this encounter Administered Medications + +--------+ +--------+------+------+ | Medication Order | MAR | Action | Dose | Rate | Site | | | Action | Date | | | | + +--------+ +--------+------+------+ | amLODIPine (NORVASC) tablet 7.5 | Given | 04/23/20 | 7.5 mg | | | | mg 7.5 mg, oral, DAILY, First | | 17 9:21 | | | | | dose on Thu04/23/17 at 0900, | | AM PDT | | | | | Until Discontinued | | | | | | + +--------+ +--------+------+------+ +---+---+ | | | +---+---+ + +-------+ +---+---+---+ | bacitracin ointment topical, | Given | 04/23/20 | | | | | TWICE DAILY, First dose on Thu | | 17 9:22 | | | | | 04/23/17 at 0900, Until | | AM PDT | | | | | Discontinued | | | | | | + +-------+ +---+---+---+ +---+---+ | | | +---+---+ + +-------+ +--------+---+---+ | cephALEXin (KEFLEX) capsule 500 | Given | 04/23/20 | 500 mg | | | | mg 500 mg, oral, EVERY 6 HOURS, | | 17 9:21 | | | | | First dose on Thu04/23/17 at | | AM PDT | | | | | 1000, Until Discontinued | | | | | | + +-------+ +--------+---+---+ +---+---+ | | | +---+---+ + +-------+ +--------+---+---+ | fentaNYL (SUBLIMAZE) injection | Given | 04/22/20 | 25 mcg | | | | 25 mcg 25 mcg, intravenous, | | 17 4:45 | | | | | POSTPROCEDURE PRN, 8 doses, | | PM PDT | | | | | Starting Thu04/22/17 at 1357, | | | | | | | Until Thu04/22/17 at 1807, severe | | | | | | | pain while in Phase I Recovery | | | | | | + +-------+ +--------+---+---+ +-------+ +--------+---+---+ | Given | 04/22/20 | 25 mcg | | | | | 17 4:38 | | | | | | PM PDT | | | | +-------+ +--------+---+---+ | Given | 04/22/20 | 25 mcg | | | | | 17 4:35 | | | | | | PM PDT | | | | +-------+ +--------+---+---+ +---+---+ | | | +---+---+ + +-------+ +-------+---+---+ | furosemide (LASIX) dose 10 mg | Given | 04/22/20 | 10 mg | | | | 10 mg, oral, EVERY 2 DAYS, First | | 17 10:57 | | | | | dose on Thu04/22/17 at 2230, | | PM PDT | | | | | Until Discontinued | | | | | | + +-------+ +-------+---+---+ +---+---+ | | | +---+---+ + +-------+ +--------+---+---+ | gabapentin (NEURONTIN) capsule | Given | 04/23/20 | 300 mg | | | | 300 mg 300 mg, oral, DAILY, | | 17 9:21 | | | | | First dose on Thu04/23/17 at | | AM PDT | | | | | 0900, Until Discontinued | | | | | | + +-------+ +--------+---+---+ +---+---+ | | | +---+---+ + +-------+ +--------+---+---+ | HYDROmorphone (DILAUDID) | Given | 04/22/20 | 0.5 mg | | | | injection 0.2-0.5 mg 0.2-0.5 mg, | | 17 5:02 | | | | | intravenous, POSTPROCEDURE PRN, | | PM PDT | | | | | Starting Thu04/22/17 at 1357, | | | | | | | Until Thu04/22/17 at 1807, | | | | | | | moderate pain while in Phase I | | | | | | | Recovery | | | | | | + +-------+ +--------+---+---+ +-------+ +--------+---+---+ | Given | 04/22/20 | 0.5 mg | | | | | 17 4:15 | | | | | | PM PDT | | | | +-------+ +--------+---+---+ | Given | 04/22/20 | 0.5 mg | | | | | 17 3:56 | | | | | | PM PDT | | | | +-------+ +--------+---+---+ +---+---+ | | | +---+---+ + +-------+ +--------+---+---+ | HYDROmorphone (DILAUDID) | Given | 04/23/20 | 0.5 mg | | | | injection 0.5 mg 0.5 mg, | | 17 7:28 | | | | | intravenous, ONCE, 1 dose, Zoya | | AM PDT | | | | | 04/23/17 at 0745 | | | | | | + +-------+ +--------+---+---+ +---+---+ | | | +---+---+ + +-------+ +--------+---+---------+ | influenza vaccine (FLUZONE) | Given | 04/23/20 | 0.5 mL | | Right | | (PF) IM injection (age 3 years or | | 17 10:39 | | | Deltoid | | greater) 0.5 mL 0.5 mL, | | AM PDT | | | | | intramuscular, DAY OF DISCHARGE, | | | | | | | 1 dose, Starting Zoya 04/23/17 at | | | | | | | 1035, Until Zoya 04/23/17 at 1039, | | | | | | | Flu vaccination per delegation | | | | | | | protocol | | | | | | + +-------+ +--------+---+---------+ +---+---+ | | | +---+---+ + +-------+ +------+---+---+ | labetalol (TRANDATE) IV | Given | 04/22/20 | 5 mg | | | | injection 5 mg 5 mg, | | 17 3:56 | | | | | intravenous, POSTPROCEDURE PRN, 5 | | PM PDT | | | | | doses, Starting Thu04/22/17 at | | | | | | | 1357, Until Thu04/22/17 at 1807, | | | | | | | hypertension | | | | | | + +-------+ +------+---+---+ +---+---+ | | | +---+---+ + +---------+ +---+---+---+ | lactated Ringers IV 10 mL/hr, | New Bag | 04/22/20 | | | | | intravenous, PROCEDURE | | 17 1:32 | | | | | CONTINUOUS, Starting Thu04/22/17 | | PM PDT | | | [...] | | +---+---+ + +-------+ +--------+---+---+ | metoprolol succinate | Given | 04/23/20 | 100 mg | | | | (TOPROL-XL) tablet 100 mg 100 | | 17 9:22 | | | | | mg, oral, DAILY, First dose on | | AM PDT | | | | | Zoya 04/23/17 at 0900, Until | | | | | | | Discontinued | | | | | | + +-------+ +--------+---+---+ +---+---+ | | | +---+---+ + +-------+ +--------+---+---+ | mycophenolate (CELLCEPT) | Given | 04/23/20 | 500 mg | | | | capsule 500 mg 500 mg, oral, | | 17 9:21 | | | | | TWICE DAILY, First dose on Wed | | AM PDT | | | | | 04/22/17 at 2100, Until | | | | | | | Discontinued | | | | | | + +-------+ +--------+---+---+ +-------+ +--------+---+---+ | Given | 04/22/20 | 500 mg | | | | | 17 8:58 | | | | | | PM PDT | | | | +-------+ +--------+---+---+ +---+---+ | | | +---+---+ + +-------+ +------+---+---+ | oxyCODONE (immediate release) | Given | 04/22/20 | 5 mg | | | | (ROXICODONE) tablet 5 mg 5 mg, | | 17 6:40 | | | | | oral, EVERY 4 HOURS NEEDED, | | PM PDT | | | | | Starting Thu04/22/17 at 1826, | | | | | | | Until Thu04/22/17 at 1928, severe | | | | | | | pain | | | | | | + +-------+ +------+---+---+ +---+---+ | | | +---+---+ + +-------+ +-------+---+---+ | oxyCODONE (immediate release) | Given | 04/23/20 | 10 mg | | | | (ROXICODONE) tablet 5-10 mg 5-10 | | 17 10:41 | | | | | mg, oral, EVERY 4 HOURS | | AM PDT | | | | | NEEDED, Starting 04/22/17 at | | | | | | | 1928, Until Zoya 04/23/17 at 1856, | | | | | | | severe pain | | | | | | + +-------+ +-------+---+---+ +-------+ +-------+---+---+ | Given | 04/23/20 | 10 mg | | | | | 17 5:58 | | | | | | AM PDT | | | | +-------+ +-------+---+---+ | Given | 04/23/20 | 10 mg | | | | | 17 2:48 | | | | | | AM PDT | | | | +-------+ +-------+---+---+ +---+---+ | | | +---+---+ + +-------+ +------+---+---+ | sirolimus (RAPAMUNE) tablet 2 | Given | 04/23/20 | 2 mg | | | | mg 2 mg, oral, EVERY MORNING, | | 17 9:22 | | | | | First dose on Thu04/23/17 at | | AM PDT | | | | | 0900, Until Discontinued | | | | | | + +-------+ +------+---+---+ +---+---+ | | | +---+---+ documented in this encounter
--- OUTSIDE RECORDS SUMMARY | ~2019-05-14 | XMS | Encounter Summary ---
Demographics + + + | Address | [address] | | | [place] [address] | + + + | Home Phone | | + + + | Preferred Language | Unknown | + + + | Marital Status | Single | + + + | Yazidi Affiliation | BAP | + + + | Race | White | + + + | Ethnic Group | Not or | + + + Author + + + | Author | [facility] | + + + | Organization | [facility] | + + + [...] Team Providers + +------+ + | Care Fishing Tackle Repairer Name | Role | Phone | + +------+ + | Ritesh England PA-C | PCP | | + +------+ + Encounter Details +--------+ + + + + | Date | Type | Department | Care Team | Description | +--------+ + + + + | 03/03/ | Procedure | [address] | | | | 2018 | Pass | [address] | | | | | | [place] | | | | | | [facility] | | | | | | Surgery Admitting | | | | | | Desk Located on the | | | | | | 4th floor, Room | | | | | | [address] [facility] [place] | | | | | | [address] | | | +--------+ + + + [...] | | | | | [address] [place], | | | | | | [place] [address] | | | | | | [phone] | | | | | | | | +--------+---------+ + + + documented as of this encounter Visit Diagnoses Not on filedocumented in this encounter"
--- OUTSIDE RECORDS SUMMARY | ~2019-05-14 | XMS | Encounter Summary ---
Demographics + + + | Address | [address] | | | [place] [address] | + + + | Home Phone | | + + + | Preferred Language | Unknown | + + + | Marital Status | Single | + + + | Caodaism Affiliation | BAP | + + + | Race | White | + + + | Ethnic Group | Not or | + + + Author + + + | Author | [facility] | + + + | Organization | [facility] | + + + [...] Team Providers + +------+ + | Care Fashion Consultant Selling Name | Role | Phone | + +------+ + | No Pcp Per Patient | PCP | Unavailable | + +------+ + Reason for Visit + + + | Reason | Comments | + + + | Medication requested | Requesting refill of vicodin 5mg to be sent to [facility] | | [facility]acy, ph [phone], in [place], where patient is currently. | + + + Encounter Details +--------+ + + + + | Date | Type | Department | Care Team | Description | +--------+ + + + + | 03/16/ | Telephone | Otolaryngology | Leon Hernandez, | Medication requested | | 2005 | | Head and Neck | MD Magalys Felix | (Requesting refill | | | | Surgery Services at | [facility] | of vicodin 5mg to be | | | | [address]PV [address] | [place], [place] | sent to [facility] | | | | [facility] [address] | [address] | Pharmacy, ph | | | | Mailcode: PV01 | [phone] | [phone], in | | | | [facility] | | [place], where patient | | | | [place], [place] | | is currently.) | | | | [address] | | | | | | [phone] | | | +--------+ + + + [...] | | | | | [address] [place], | | | | | | [place] [address] | | | | | | [phone] | | | | | | | | +--------+---------+ + + + documented as of this encounter Visit Diagnoses Not on filedocumented in this encounter"
--- OUTSIDE RECORDS SUMMARY | ~2019-05-14 | XMS | Encounter Summary ---
Demographics + + + | Address | [address] | | | [place] [address] | + + + | Home Phone | | + + + | Preferred Language | Unknown | + + + | Marital Status | Single | + + + | Judaism Affiliation | BAP | + + + | Race | White | + + + | Ethnic Group | Not or | + + + Author + + + | Author | [facility] | + + + | Organization | [facility] | + + + [...] Team Providers + +------+ + | Care Dobby Loom Weaver Name | Role | Phone | + +------+ + | Ritesh England PA-C | PCP | | + +------+ + Reason for Visit + + + | Reason | Comments | + + + | Abdominal pain | | + + + | Diarrhea | | + + + | Lightheadedness | | + + + Encounter Details +--------+ + + + + | Date | Type | Department | Care Team | Description | +--------+ + + + + | 09/12/ | Emergency | [facility] | | | | 2017 | | Department [address] | | | | | | [facility] | | | | | | [facility] | | | | | | [place], [place] | | | | | | [address] | | | | | | [phone] | | | +--------+ + + + [...] 2019 | Visit | | [address] | | | | | | [place], | | | | | | [place] [address] | | | | | | [phone] | | | | | | | | +--------+---------+ + + + documented as of this encounter Visit Diagnoses Not on filedocumented in this encounter"
--- OUTSIDE RECORDS SUMMARY | ~2019-05-14 | XMS | Encounter Summary ---
Demographics + + + | Address | [address] | | | [place] [address] | + + + | Home Phone [...] + + + | Author | [facility] | + + + | Organization | [facility] | + + [...] Providers + +------+ + | Care Batch Records Clerk Name | Role | Phone | + +------+ + | Ritesh England PA-C | PCP | | + +------+ + Encounter Details +--------+ + + + + | Date | Type | Department | Care Team | Description | +--------+ + + + + | 09/02/ | Abstract | Transplant | Dayron Donato MD | | | 2019 | | Coordinators 1983 | [address] | | | | | [address] | [address] [place], | | | | | Rd [place], [place] | [place] [address] | | | | | [address] | [phone] | | | | | [phone] | | | +--------+ + + + [...] | | 2019 | Visit | | [address] | | | | | | [place], | | | | | | [place] [address] | | | | | | [phone] | | | | | | | | +--------+---------+ + + + documented as of this encounter Procedures + +--------+ + + + | Procedure Name | Priori | Date/Time | Associated Diagnosis | Comments | | | ty | | | | + +--------+ + + + | LIVER TRANSPLANT | Routin | 08/24/2018 | | Results for this | | POST PANEL (EXT | e | 10:44 AM | | procedure are in the | | RESULTS) | | PST | | results section. | + +--------+ + + + documented in this encounter Results LIVER TRANSPLANT POST PANEL (EXT RESULTS) (08/24/2018 10:44 AM PST) + +-------+ + + + | Component | Value | Ref Range | Performed | Pathologist | | | | | At | Signature | + +-------+ + + + | SODIUM, | 136 | mmol/L | [facility] | | | [facility] | | | [facility] | | | (LAB) | | | LABORATORY | | + +-------+ + + + | POTASSIUM, | 3.9 | mmol/L | [facility] | | [facility] | | | REG[facility]AL | | | (LAB) | | | LABORATORY | | + +-------+ + + + | CHLORIDE, | 98 | mmol/L | [facility] | | | [facility] | | | REG[facility]AL | | | (LAB) | | | LABORATORY | | + +-------+ + + + | TOTAL CO2, | 27 | mmol/L | [facility] | | | [facility] | | | REGIONAL | | | (LAB) | | | LABORATORY | | + +-------+ + + + | GLUCOSE, | 108 | 65 - 110 mg/dL | [facility] | | | [facility] | | | REG[facility]AL | | | (LAB) | | | LABORATORY | | + +-------+ + + + | BUN, PLASMA | 30 | mg/dL | [facility] | | | (LAB) | | | REGIONAL | | | | | | LABORATORY | | + +-------+ + + + | CREATININE | 1.61 | mg/dL | [facility] | | | [facility] | | | REGIONAL | | | (LAB) | | | LABORATORY | | + +-------+ + + + | CALCIUM, | 9.0 | mg/dL | [facility] | | | [facility] | | | REG[facility]AL | | | (LAB) | | | LABORATORY | | + +-------+ + + + | PHOSPHORUS, | 3.8 | mg/dL | [facility] | | | [facility] | | | REG[facility]AL | | | (LAB) | | | LABORATORY | | + +-------+ + + + | MAGNESIUM,P | 2.0 | mg/dL | [facility] | | | L[facility] | | | REGIONAL | | | | | | LABORATORY | | + +-------+ + + + | TOTAL | 7.9 | g/dL | [facility] | | | PROTEIN, | | | REGIONAL | | | PLASMA | | | LABORATORY | | | (LAB) | | | | | + +-------+ + + + | ALBUMIN, | 4.0 | g/dL | [facility] | | | [facility] | | | REG[facility]AL | | | (LAB) | | | LABORATORY | | + +-------+ + + + | BILIRUBIN | 0.6 | Transcutaneous | [facility] | | | TOTAL | | Bilirubinometer | REGIONAL | | | | | | LABORATORY | | + +-------+ + + + | BILIRUBIN | 0.10 | mg/dL | [facility] | | | DIRECT | | | REGIONAL | | | | | | LABORATORY | | + +-------+ + + + | ALK PHOS | 121 | U/L | [facility] | | | | | | REG[facility] | | | | | | LABORATORY | | + +-------+ + + + | AST(SGOT) | 55 | U/L | [facility] | | | | | | REG[facility]AL | | | | | | LABORATORY | | + +-------+ + + + | ALT (SGPT) | 56 | U/L | [facility] | | | | | | [facility] | | | | | | LABORATORY | | + +-------+ + + + | URIC ACID, | 5.8 | mg/dL | [facility] | | | [facility] | | | REG[facility]AL | | | (LAB) | | | LABORATORY | | + +-------+ + + + | WHITE CELL | 7.0 | K/cu mm | [facility] | | | COUNT | | | REGIONAL | | | | | | LABORATORY | | + +-------+ + + + | HEMATOCRIT | 42.1 | % | [facility] | | | | | | REGIONAL | | | | | | LABORATORY | | + +-------+ + + + | HEMOGLOBIN | 14.6 | 13.5 - 17.5 | [facility] | | | | | g/dL | REGIONAL | | | | | | LABORATORY | | + +-------+ + + + | PLATELET | 183 | K/cu mm | [facility] | | | COUNT | | | REGIONAL | | | | | | LABORATORY | | + +-------+ + + + | SIROLIMUS, | 2.9 | ng/mL | [facility] | | | [...] + + + + + | [facility] | [address] | [place] [address] | | | [facility] LABORATORY | | | | + + + + + documented in this encounter Visit Diagnoses Not on filedocumented in this encounter"
--- OUTSIDE RECORDS SUMMARY | ~2019-05-14 | XMS | Encounter Summary ---
Demographics + + + | Address | [address] | | | [place] [address] | + + + | Home Phone | | + + + | Preferred Language | Unknown | + + + | Marital Status | Single | + + + | Jewish Affiliation | BAP | + + + | Race | White | + + + | Ethnic Group | Not or | + + + Author + + + | Author | [facility] | + + + | Organization | [facility] | + [...] Team Providers + +------+ + | Care Hoisting Engine Operator Name | Role | Phone | + +------+ + | Sylvester Scherer DO | PCP | | + +------+ + Reason for Visit + + + | Reason | Comments | + + + | Liver Transplant | Post Transplant Follow Up | | Referral | | + + + Encounter Details +--------+ + + + + | Date | Type | Department | Care Team | Description | +--------+ + + + + | 10/11/ | Abstract | Transplant | Brittney Pratt | Liver Transplant | | 2015 | | Coordinators [address] | MD Kiah [address] | Referral (Post | | | | [address] [facility] | [place], [place] | Transplant Follow | | | | [place] | [address] | Up) | | | | [address] | [phone] | | | | | [phone] | | | +--------+ + + + [...] documented as of this encounter Progress Notes Xenia Villanueva - 10/11/2014 11:51 AM PDTReceived referral from PT's PCP. Patient transplant ed in 2011 at [facility], most recent follow up was at [facility] in [place]. Will contact both centers and patient to notify them of referral. Will request spivey splant reports from [facility] & [facility] and attach to this encounter. Will schedule patient for follow up once received. 5:3 0 AM PDTdocumented in this encounter Plan of Treatment +--------+---------+ + + + | Date | Type | Specialty | Care Team | Description | +--------+---------+ + + + | 06/17/ | Office | Otolaryngology | Shlomo Roach MD | | | 2019 | Visit | | [address] | | | | | | [place], | | | | | | [place] [address] | | | | | | [phone] | | | | | | | | +--------+---------+ + + + documented as of this encounter Procedures + +--------+ + + + | Procedure Name | Priori | Date/Time | Associated Diagnosis | Comments | | | ty | | | | + +--------+ + + + | LIVER TRANSPLANT | Routin | 08/18/2014 | | Results for this | | POST PANEL (EXT | e | 6:30 AM | | procedure are in the | | RESULTS) | | PST | | results section. | + +--------+ + + + documented in this encounter Results LIVER TRANSPLANT POST PANEL (EXT RESULTS) (08/18/2014 6:30 AM PST) + + + + + + | Component | Value | Ref Range | Performed | Pathologist | | | | | At | Signature | + + + + + + | SODIUM, | 143 | mmol/L | NON [facility] | | | PLASMA | | | LAB | | | (LAB) | | | | | + + + + + + | POTASSIUM, | 4.1 | mmol/L | NON [facility] | | | PLASMA | | | LAB | | | (LAB) | | | | | + + + + + + | CHLORIDE, | 105 | mmol/L | NON [facility] | | | PLASMA | | | LAB | | | (LAB) | | | | | + + + + + + | TOTAL CO2, | 25 | mmol/L | NON [facility] | | | PLASMA | | | LAB | | | (LAB) | | | | | + + + + + + | GLUCOSE, | 117 (A) | 65 - 110 mg/dL | NON [facility] | | | PLASMA | | | LAB | | | (LAB) | | | | | + + + + + + | BUN, PLASMA | 15 | mg/dL | NON [facility] | | | (LAB) | | | LAB | | + + + + + + | CREATININE | 0.9 | mg/dL | NON [facility] | | | PLASMA | | | LAB | | | (LAB) | | | | | + + + + + + | CALCIUM, | 8.3 | mg/dL | NON [facility] | | | PLASMA | | | LAB | | | (LAB) | | | | | + + + + + + | TOTAL | 6.3 | g/dL | NON [facility] | | | PROTEIN, | | | LAB | | | PLASMA | | | | | | (LAB) | | | | | + + + + + + | ALBUMIN, | 4.2 | g/dL | NON [facility] | | | PLASMA | | | LAB | | | (LAB) | | | | | + + + + + + | BILIRUBIN | 0.3 | Transcutaneous | NON [facility] | | | TOTAL | | Bilirubinometer | LAB | | + + + + + + | ALK PHOS | 67 | U/L | NON [facility] | | | | | | LAB | | + + + + + + | AST(SGOT) | 42 | U/L | NON [facility] | | | | | | LAB | | + + + + + + | ALT (SGPT) | 40 | U/L | NON [facility] | | | | | | LAB | | + + + + + + | WHITE CELL | 3.43 | K/cu mm | NON [facility] | | | COUNT | | | LAB | | + + + + + + | HEMATOCRIT | 37 | % | NON [facility] | | | | | | LAB | | + + + + + + | HEMOGLOBIN | 13.1 (A) | 13.5 - 17.5 | NON [facility] | | | | | g/dL | LAB | | + + + + + + | PLATELET | 111 | K/cu mm | NON [facility] | | | COUNT | | | LAB | | + + + + + + | SIROLIMUS, | 7.4 | ng/mL | NON [facility] | | | WHOLE BLOOD | | | LAB | | + + + + + [...] | | + +---------+ + + | NON [facility] LAB | | | | + +---------+ + + documented in this encounter Visit Diagnoses Not on filedocumented in this encounter"
--- OUTSIDE RECORDS SUMMARY | ~2019-05-14 | XMS | Encounter Summary ---
Demographics + + + | Address | [address] | | | [place] [address] | + + + | Home Phone [...] Author + + + | Author | [facility] | + + + | Organization | [facility] | + + + | Address [...] Providers + +------+ + | Care Lead Java J2Ee Developer Name | Role | Phone | + +------+ + | Ritesh England PA-C | PCP | | + +------+ + Reason for Visit + + + | Reason | Comments | + + + | Hypertension | | + + + AUTH/CERT +--------+--------+ + + + + | Status | Reason | Specialty | Diagnoses / | Referred By | Referred To | | | | | Procedures | Contact | Contact | +--------+--------+ + + + + | | | Emergency | | | Emergency | | | | Medicine | | | Dept [facility] | | | | | | | [address] | | | | | | | [place] | | | | | | | [facility] | | | | | | | Hospital | | | | | | | [place], [place] | | | | | | | [address] | | | | | | | Phone: | | | | | | | [phone] | +--------+--------+ + + + + Encounter Details +--------+---------+ + + + | Date | Type | Department | Care Team | Description | +--------+---------+ + + + | 09/09/ | Surgery | 6A Intra Op [facility] | Shlomo Roach MD | EXCISION OF RIGHT | | 2019 | | [facility] | [address] | FACIAL LESIONS, | | | | Admitting Desk | [address] [place], | ROTATION [place]AP, | | | | Located on the | [place] [address] | EXCISION CHEST | | | | floor [address] [facility] | [phone] | LESION | | | | [address] | | | | | | [place], [place] | | | | | | [address] | | | +--------+---------+ + + + [...] + + + | Blood Pressure | 159/98 | 09/11/2018 10:21 AM | | | | | PST | | + + + + + | Pulse | 69 | 09/11/2018 10:21 AM | | | | | PST | | + + + + + | Temperature | 36.6 C (97.9 F) | 09/11/2018 7:46 AM | | | | | PST | | + + + + + | Respiratory Rate | 18 | 09/11/2018 7:46 AM | | | | | PST | | + + + + + | Oxygen Saturation | 97% | 09/11/2018 10:21 AM | | | | | PST | | + + + + + | Inhaled Oxygen | - | - | | | Concentration | | | | + + + + + | Weight | 73.9 kg (163 lb) | 09/07/2018 11:22 AM | | | | | PST | | + + + + + | Height | 172.7 cm (5' 8") | 09/10/2018 4:00 AM | | | | | PST | | + + + + + | Body Mass Index | 24.78 | 09/07/2018 11:22 AM | | | | | PST [...] documented as of this encounter Discharge Summaries Lakshmi Tavera MD - 09/11/2018 9:51 AM PST INPATIENT PHYSICIAN DISCHARGE SUMMARY Author: LAKSHMI TAVERA MD Attending Physician: Shlomo Roach MD PCP: Ritesh England PA-C Admission Date: 09/07/2018 Discharge Date: 09/11/2018 Diagnoses Principal Final Diagnosis: Facial squamous cell carcinoma Procedures Dr. Roach (ENT) 09/09/2018 Facial lesion excision x 4 Medication List START taking these medications amLODIPine 10 mg Tab Commonly known as: NORVASC Take 1 tablet by mouth once daily. chlorthalidone 25 mg Tab Commonly known as: HYGROTON Take 0.5 tablets by mouth once daily. ibuprofen 600 mg Tab Commonly known as: MOTRIN Take 1 tablet by mouth every six hours as needed. oxyCODONE (immediate release) 5 mg Tab Commonly known as: ROXICODONE Take 1-2 tablets by mouth every four hours as needed for severe pain. senna-docusate 8.6-50 mg Tab Commonly known as: SENOKOT S Take 1 tablet by mouth twice daily as needed for constipation. CHANGE how you take these medications furosemide 20 mg Tab Commonly known as: LASIX Take 0.5 tablets by mouth three times weekly (on Thursday, Thursday and Thursday). Start taking on: 09/13/2018 What changed: how much to take how to take this when to take this additional instructions CONTINUE taking these medications acetaminophen 325 mg Tab Commonly known as: TYLENOL Take 1-2 tablets by mouth every four hours as needed. albuterol 90 mcg/actuation Hfaa Commonly known as: PROVENTIL, VENTOLIN Inhale 1-2 puffs by mouth every six hours as needed. Indications: Bronchospastic Pulmonary Disease calcium carbonate chewable 200 mg elemental (500 mg total salt) Chew Commonly known as: TUMS Chew and swallow 1 tablet every two hours as needed. calcium-vitamin D 500 mg(1,250mg) -200 unit Tab Commonly known as: OS-TURNER 500 + D Take 1 tablet by mouth two times daily. magnesium citrate Soln Take 296 mL by mouth once daily as needed (second for constipation). metoprolol succinate 100 mg Tb24 Commonly known as: TOPROL-XL Take 1 tablet by mouth once daily. multivitamin-minerals Tab Take 1 tablet by mouth once daily. mycophenolate 250 mg Cap Commonly known as: CELLCEPT Take 2 capsules by mouth two times daily. Take with food. Indications: Prevention of Liver Transplant Rejection polyethylene glycol 17 gram Pwpk Commonly known as: MIRALAX Mix 1 packet and take orally two times daily. sirolimus 1 mg Tab Commonly known as: RAPAMUNE Take 3 tablets by mouth once daily in the morning. Indications: s/p liver transplant Diet Regular Regular diet- There are no [...] person will be ready by the next day. It is your responsibility to keep [...] thin layer of petroleum jelly (Vaseline) or Bacitracin to the surgical site on the face at least 2 times a day for one week. Cardiology recommendations: # HTN - Continue amlodipine 10 mg - STOP carvedilol 12.5 mg BID as has been causing n/v - START metoprolol succinate 100 mg daily (previous home medication) (30 days supply) - START chlorthalidone 12.5 mg daily - He should have BMP 1-2 weeks as an outpatient and fo llow up with a primary care doctor to titrate this further (30 days supply) - Repeat with labs renal function next week with your local doctor # HFrecoveredEF 2018,history of NICM JVP mildly up this, AM. He received his home metoprolol, no other evidence of volume overlo ad. Outpatient cardiology consultation should be placed at discharge. - Continue home lasix 10 mg Thursday, Thursday and Thursday (30 days supply given) - Metoprolol as above - ACEi should ideally be started eventually - Should have outpatient cardiology follow up at discharge # Concern for palpitations He has no diagnosis of afib. This should not be documented in his discharge summary. The re ported ED visit shows PACs with NSR. However, he does report a history of anxiety and palpit ations. - Order event monitor at discharge and outpatient cardiology follow up, appreciate our [facility] lieutenant general arranging it SYMPTOMS OF A SURGICAL SITE INFECTION: 1) Spreading redness and swelling from the incision. 2) Worsening or uncontrolled pain at the incision 3) Foul smelling or thick/creamy discharge from the incision 4) Chills or fever of a 101.4 degrees or higher HOW TO REACH US: Thursday- Thursday from 8:00am to 4:30pm, call the Otolaryngology clinic at [phone]. After hours, weekends, and holidays, call the [facility] hospital lead furnace operator at [phone] and as k to have the ENT doctor on-call paged Schedule the following appointment(s) when you get home Call Shlomo Roach MD. Specialty: Otolaryngology Why: As needed Contact information [address] [facility] [place] [address] Future Appointments Date Time Provider Department Center 09/22/2018 8:00 AM Dalton Chu MD [facility] Consults Obtained: None Pertinent Imaging: None Pertinent Labs: None Pertinent Microbiology/Pathology: None Vitals on Discharge: Ht 1.727 m (5' 8"), Wt 73.9 kg (163 lb), BP 173/101, Pulse 63, Tempera ture 36.6 C (97.9 F), RR 18, SpO2 94%, BMI 24.78 kg/(m^2). Facility age limit for [facility] h percentiles is 18 years. Physical Exam on Discharge: GEN: Awake, alert, NAD HEENT: Right cheek and chest wall incisions clean, dry, intact NEURO: CN grossly intact CV: Regular rate RESP: Breathing comfortably on RA EXT: WWP Outstanding Labs/Studies: Surgical Pathology Discharging Physician: LAKSHMI TAVERA MD Attending Physician: Shlomo Roach MD documented in this encounter Discharge Instructions Instructions Genny Paredes MD - 09/07/2018It was a pleasure caring for you today in the emergency department. Your blood pressure improved with your home medications. You r surgery has been rescheduled to Thursday. They will contact you later today with a anticipa satya time. If you do not hear from them please call Dr. Roach's office at [phone] to find out the time on Thursday. Because Return to the emergency department sooner for new symptoms, worsening symptoms, or any furt her concerns. documented in this encounter Medications at Time [...] documented as of this encounter Progress Notes Deedee Villarreal MA - 09/11/2018 1:31 PM PST Cardiology appt scheduled on 09/22/[address] Chu at [facility]. 09/07/18 Progress notes sanjuanita d by Dr. Womack faxed to this office. Dayron Duron MD - 04/2019 9:30 AM PST Hepatology Attending Mr. 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 He was sent to ED from LTX clinic for hypertensiv e urgency. Currently admitted and undergoing HTN management and is s/p R auricular lesion co ncerning for SCC resection. Doing well with no liver decomp sxs or signs. WHITE CELL COUNT (K/cu mm) Date Value 09/07/2018 8.01 08/24/2018 7.0 HEMOGLOBIN (g/dL) Date Value 09/07/2018 13.7 08/24/2018 14.6 HEMATOCRIT (%) Date Value 09/07/2018 40.3 (L) 08/24/2018 42.1 PLATELET COUNT (K/cu mm) Date Value 09/07/2018 212 08/24/2018 183 MCV (fL) Date Value 09/07/2018 91.4 09/24/2005 94.5 RDW (%) Date Value 09/24/2005 12.6 RDW SD (fL) Date Value 09/07/2018 43.6 Recent Labs 08/24/18 1044 09/07/18 1126 AST 55 49* ALT 56 59 TBILI 0.6 0.2* AP 121 133* ALB 4.0 3.4* TP 7.9 7.6 # S/p OLT 2011 for HCV/etoh cirrhosis: Allograft appears to be functioning fine with no dec ompensations. Was supposed to be on sirolimus and MMF but had not taken sirolimus for "5-6" days per pt when he presented to transplant clinic on 09/07. The 09/08/18 sirolimus trough there fore is not accurate. His previous sirolimus 3 mg daily has been resumed and would recommend continuing at current dose for now (it appears previousliy was switched to siro from [facility] du e to renal insufficiency). Recommend repeating sirolimus level on Thursday which would be more national account representative of true trough for the 3 mg dose. Chronic mild LE elevation from his HCV is stable. Would continue MMF at current dose but once sirolimus dose stablized then will work on reducing MMF which will help with SCC. Adherence/compliance had been an issue in the pas t but patient stating he will make sure to follow recs, take meds and do labs so that adjust ment on meds can be made. # Chronic HCV: Will try again to treat his HCV once above stabilized. # ANAID/?CKD: Regarding ANAID: ?contrast induced nephropathy given recent contrast and climb ve rsus prerenal or meds related-will see what sirolimus trough is to make adjustments (previou giles had been doing well on this dose) and defer to cards regarding lasix. # HTN: Appreciate cards consult recs. From ITX standpoint will work on adjusting sirolimus. RECS: --Continue sirolimus and MMF at current dose for ITX --Check sirolimus trough on Thursday am approx 30 mins prior to scheduled sirolimus dose (goa l ~5-6) --MMF changes to be determined --Check urine electrolytes and trend cr --Follow up cardiology recs Recs relayed to covering provider Dayron Donato MD Fence Installer Foremanstove carriage operator [facility] Hepatology Dayron Duron MD - 09/10/2018 5:21 PM PSTHepatology Attending Mr. 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 He was sent to ED from LTX clinic for hypertensiv e urgency. Currently admitted and undergoing HTN management and is s/p R auricular lesion co ncerning for SCC resection. Doing well with no liver decomp sxs. # S/p OLT 2011 for HCV/etoh cirrhosis: Was supposed to be on sirolimus and MMF but had not taken sirolimus for "5-6" days per pt when he presented to transplant clinic on 09/07. The / sirolimus trough therefore is not accurate. Sirolimus 3 mg daily has been resumed and would continue at current dose for now. Recommend repeating sirolimus level on Thursday which would be more national account representative of true trough for the 3 mg dose. Allograft appears to be functionin [place] with no decompensations. The mild LE elevation is chronic from his HCV. Would continu e MMF at current dose but once sirolimus goal achieved then will work on reducing MMF which will help with SCC. Adherence/compliance had been an issue in the past but patient stating h e will make sure to follow recs, take meds and do labs so that adjustment on meds can be mad e. # Chronic HCV: Will try again to treat his HCV once above stabilized. # ANAID/?CKD: Related to hypertension.or prerenal or cardiorenal. Per patient his past reason of switch to sirolimus was renal related. RECS: --Continue sirolimus and MMF at current dose for ITX --Check sirolimus trough on Thursday am approx 30 mins prior to scheduled sirolimus dose (goa l ~5-6) --MMF changes to be determined after sirolimus goal achieved --Check spot urine protein/creatinine ratio, UA --Check urine lytes and FeNa Dayron Donato MD Fence Installer [employer] carriage operator [facility] Hepatology uanjose Gupta PA-C - 09/10/2018 2:12 PM PST Otolaryngology / Head and Neck Surgery Progress Note DOS: 09/10/2018 Hospital Day:3 Interval History: -No acute events overnight -Appreciate cardiology and liver transplant team on board and following -Cr bumped up to 1.37, uop good, MIVF 50 ml/hr. Last Vitals: Ht 1.727 m (5' 8"), Wt 73.9 kg (163 lb), BP 168/85, Pulse 98, Temperature 36.9 C (98.4 F), RR 16, SpO2 95%, BMI 24.78 kg/(m^2). Facility age limit for growth percentiles is 18 ye ars. 24 Hour Vitals: Temp Av.6 C (97.8 F) Min: 36 C (96.8 F) Max: 36.9 C (98.4 F) Pulse Av.1 Min: 63 Max: 98 Systolic (24hrs), Av , Min:148 , Max:186 Diastolic (24hrs), Av, Min:81, Max:109 SpO2 Av.9 % Min: 93 % Max: 100 % Resp Av.3 Min: 11 Max: 18 Intake/Output Summary (Last 24 hours) at 09/10/18 1412 Last data filed at 09/10/18 1300 Gross per 24 hour Intake 2405 ml Output 2650 ml Net -245 ml Physical Exam: Gen: awake and alert, NAD Face: incision c/d/i with no swelling. Resp: comfortable, unlabored, quiet on room air Medications: Current Facility-Administered Medications Medication Dose Route Frequency albuterol (PROVENTIL, VENTOLIN) 90 mcg/actuation inhaler 1-2 puff 1-2 puff inhalation Q6H PRN amitriptyline (ELAVIL) tablet 10 mg 10 mg oral QPM amLODIPine (NORVASC) tablet 10 mg 10 mg oral DAILY bisacodyl (DULCOLAX) suppository 10 mg 10 mg rectal DAILY PRN chlorhexidine (PERIDEX) mouthwash 15 mL 15 mL oral Q6H chlorthalidone (HYGROTON) tablet 12.5 mg 12.5 mg oral DAILY famotidine (PEPCID) tablet 20 mg 20 mg oral BID FLUoxetine (PROZAC) capsule 10 mg 10 mg oral DAILY furosemide (LASIX) dose 10 mg 10 mg oral Once per day on Thu heparin injection 5,000 Units 5,000 Units subcutaneous Q12H (Scheduled) ibuprofen (MOTRIN) tablet 600 mg 600 mg oral Q6H PRN lactated Ringers IV 50 mL/hr intravenous PROCEDURE CONTINUOUS melatonin tablet 3 mg 3 mg oral HS PRN metoprolol succinate (TOPROL-XL) tablet 100 mg 100 mg oral DAILY mycophenolate (CELLCEPT) capsule 500 mg 500 mg oral BID ondansetron ODT (ZOFRAN ODT) tablet 8 mg 8 mg oral Q12H PRN oxyCODONE (immediate release) (ROXICODONE) tablet 5-10 mg 5-10 mg oral Q4H PRN polyethylene glycol (MIRALAX) packet 34 g 34 g oral TID PRN prochlorperazine (COMPAZINE) injection 5-10 mg 5-10 mg intravenous Q4H PRN senna-docusate (SENOKOT S) 8.6-50 mg 1 tablet 1 tablet oral BID sirolimus (RAPAMUNE) tablet 3 mg 3 mg oral QAM tamsulosin (FLOMAX) capsule 0.4 mg 0.4 mg oral DAILY Assessment and Plan: Marissa Michaels Jr. is a 58 y.o. male with multiple medical problems including diastolic non-ischemic cardiomyopathy, history of OLT for liver cancer, and CKD admitted through the ED from outpatient clinic on 09/07 for hypertensive crisis with an ANAID, was cleared by Cardiol ogy for OR, underwent the above procedure, continues to be hypertensive and ANAID. #Multiple recurrent SCC skin -wound care orders placed -removed Xeroform over the face this am as per Dr. Roach, no need to repalced #ANAID -Cr 1.31>1.37 -UOP good -Will continue to monitor for now -Daily Renal labs -Appreciate liver transplant team following, recommended MIVF 50 ml/hr and will follow up w ith further recs Chronic conditions: #HTN #Chronic HF with recovered EF 2017, History of NICM -Appreciate Cards recs: - Continue amlodipine 10 mg - STOP carvedilol 12.5 mg BID as has been causing n/v - START metoprolol succinate 100 mg daily (previous home medication) - START chlorthalidone 12.5 mg daily - He should have BMP 1-2 weeks as an outpatient and fo llow up with a primary care doctor to titrate this further - Ideally given his history of CHF, ACEi would have been started, however, as he is hortencia-op with labile renal function, think this should be followed up by outpatient cardiology pleas e elba for consultation at [facility] #OLT in 2011 for HCV/alcohol related cirrhosis c/b HCC s/p LRT -Appreciate liver transplant team on board -Continue his immunosuppression medication #Depression: Amitriptyline and Fluoxetine Ppx: SCD's/OOB TID/ holding lovenox ppx, Famotidine, Other: Peridex for oral care, Melatonin for sleep aid Dispo: Pending improvement in blood pressure and renal labs. As per Dr. Roach can follow up a s needed. JUANJOSE GUPTA PA-C Department of Otolaryngology/Head and Neck Surgery Mail Code PV01 [address] [place] [address] Pager [phone] Consult/Night/Weekend Pager: [phone] Shlomo Graham MD - 8:18 AM PSTClinic Date:09/09/2018 Mr. Michaels was admitted. He was hypertensive and was to have his surgery a few days ago. W e brought him into the hospital as Anesthesia wished him to be canceled. He was stabilized and then brought to the operating room today for his excision. He has 3 of these lesions on his face and 1 on his anterior sternum. I discussed with him the morbidity, complexities, etc. There were many fancy types of reconstruction we can do here for rotation advancement flaps, but given the nature of his skin and the way that he is continuing to develop carcino mas, I thought that the best thing that we could do would be to open and do a straight-line excision and close the lesion. I obtained consent from him for his facial lesions as well as the 1 on his chest. Does have something on his scalp; I thought we were starting to get a bit too much in terms of excisions and will follow that up as an outpatient. Shlomo Roach MD MW/MODL /[id number] signed by Shlomo Roach MD at 09/10/2018 11:41 AM Juanjose Dawson PA-C - 09/09/2018 7:44 AM PST Otolaryngology / Head and Neck Surgery Progress Note DOS: 09/09/2018 Hospital Day:2 Interval History: -No acute events overnight -Continues to be HTN in the 160-180's with diastolic in 100's, discussed with cardiology th is am, they will plan to provide further recs, in the interim, plan to give him Hydralazine -Liver transplant team on board and recommended to continue with his immunosuppressant meds and Sirolimus level tomorrw Last Vitals: Wt 73.9 kg (163 lb), BP 182/105, Pulse 70, Temperature 36.7 C (98 F), RR 16, SpO2 98%, BMI 24.78 kg/(m^2). Facility age limit for growth percentiles is 18 years. 24 Hour Vitals: Temp Av.8 C (98.2 F) Min: 36.6 C (97.8 F) Max: 37 C (98.6 F) Pulse Av Min: 70 Max: 70 Systolic (24hrs), Av , Min:142 , Max:182 Diastolic (24hrs), Av, Min:83, Max:107 SpO2 Av.3 % Min: 93 % Max: 98 % Resp Av.7 Min: 15 Max: 20 Intake/Output Summary (Last 24 hours) at 09/09/18 07 Last data filed at 09/09/18 0705 Gross per 24 hour Intake 779 ml Output 1550 ml Net -771 ml Physical Exam: Gen: awake and alert, NAD HEENT: Lesions at right face and chest unchanged from admission; prior free flap reconstruc tion at right face again noted. Resp: comfortable, unlabored, quiet on room air Medications: Current Facility-Administered Medications Medication Dose Route Frequency albuterol (PROVENTIL, VENTOLIN) 90 mcg/actuation inhaler 1-2 puff 1-2 puff inhalation Q6H PRN amitriptyline (ELAVIL) tablet 10 mg 10 mg oral QPM amLODIPine (NORVASC) tablet 10 mg 10 mg oral DAILY bisacodyl (DULCOLAX) suppository 10 mg 10 mg rectal DAILY PRN carvedilol (COREG) tablet 12.5 mg 12.5 mg oral BID W/MEALS FLUoxetine (PROZAC) capsule 10 mg 10 mg oral DAILY furosemide (LASIX) dose 10 mg 10 mg oral Once per day on Thu hydrALAZINE (APRESOLINE) injection 10 mg 10 mg intravenous Q4H PRN ibuprofen (MOTRIN) tablet 600 mg 600 mg oral Q6H PRN melatonin tablet 3 mg 3 mg oral HS PRN mycophenolate (CELLCEPT) capsule 500 mg 500 mg oral BID ondansetron ODT (ZOFRAN ODT) tablet 8 mg 8 mg oral Q12H PRN oxyCODONE (immediate release) (ROXICODONE) tablet 5-10 mg 5-10 mg oral Q4H PRN polyethylene glycol (MIRALAX) packet 34 g 34 g oral TID PRN prochlorperazine (COMPAZINE) injection 5-10 mg 5-10 mg intravenous Q4H PRN senna-docusate (SENOKOT S) 8.6-50 mg 1 tablet 1 tablet oral BID sirolimus (RAPAMUNE) tablet 3 mg 3 mg oral QAM Current Inpatient Medications Medication acetaminophen 325 mg oral tablet albuterol 90 mcg/actuation inhalation HFA aerosol inhaler calcium carbonate chewable 200 mg elemental (500 mg total salt) oral tablet,chewable calcium-vitamin D 500 mg(1,250mg) -200 unit oral tablet furosemide 20 mg oral tablet magnesium citrate oral solution metoprolol succinate 100 mg oral tablet extended release 24 hr multivitamin-minerals oral tablet mycophenolate (CELLCEPT) 250 mg oral capsule polyethylene glycol 17 gram oral powder in packet sirolimus 1 mg oral tablet Assessment and Plan: Marissa Michaels Jr. is a 58 y.o. male with multiple medical problems including diastolic non-ischemic cardiomyopathy, history of OLT for liver cancer, and CKD admitted through the ED from outpatient clinic on 09/07 for hypertensive crisis with an ANAID. He appears now to be m edically optimized for surgery by cardiology and liver transplant team, thus to OR today #Multiple recurrent SCC skin -To OR today #ANAID -Lytes pending this am -UOP good Chronic conditions: #HTN #Chronic HF with recovered EF 2017, History of NICM -Appreciate Cardiology recs: Continue Carvedilol 12.5 mg BID, Amlodipine 10 mg, Hydralazine prn (hold parameters) -Lasix 10 mg MWF #OLT in 2011 for HCV/alcohol related cirrhosis c/b HCC s/p LRT -Appreciate liver transplant team on board -Continue his immunosuppression medication sirolimus level tomorrow #Depression: Amitriptyline and Fluoxetine Ppx: SCD's/OOB TID/ holding lovenox ppx, Famotidine, Other: Peridex for oral care, Melatonin for sleep aid Dispo: To OR today JUANJOSE GUPTA PA-C Department of Otolaryngology/Head and Neck Surgery Mail Code PV01 [address] [place] [address] Pager [phone] Consult/Night/Weekend Pager: [phone] olt, Alan Powell MD - 09/08/2018 4:54 PM PST Otolaryngology / Head and Neck Surgery Progress Note Date: 09/08/2018 Hospital Day:1 Author: ALAN DWYER MD Attending Physician: Shlomo Roach MD Interval History: SBPs better controlled with resuming home anti-hypertensives today. Patient says these are making him dizzy and nauseous again as they did at home (which was why he DC'd them) Evaluated by Cards service today to optimize surgical risk who recommend that no further in terventions are indicated pre-operatively and who've also left recs regarding outpatient fol low-up. Anesthesia service also alerted to patient's admission and will review records and r equest any additional pre-operative evaluation as needed. No complaints otherwise. Pre-op CT imaging ordered. Last Vitals: Wt 73.9 kg (163 lb), BP 164/86, Pulse 74, Temperature 36.6 C (97.8 F), RR 16, SpO2 97%, BMI 24.78 kg/(m^2). Facility age limit for growth percentiles is 18 years. 24 Hour Vitals: Temp Av.8 C (98.2 F) Min: 36.6 C (97.8 F) Max: 37 C (98.6 F) Pulse Av Min: 74 Max: 76 Systolic (24hrs), Av , Min:153 , Max:181 Diastolic (24hrs), Av, Min:80, Max:107 SpO2 Av.3 % Min: 96 % Max: 99 % Resp Av Min: 12 Max: 16 Intake/Output Summary (Last 24 hours) at 09/08/18 1654 Last data filed at 09/08/18 1039 Gross per 24 hour Intake 10 ml Output 0 ml Net 10 ml Physical Exam: Gen: awake and alert, NAD supine in bed and ambulating about room. HEENT: Lesions at right face and chest unchanged from admission; prior free flap reconstruc tion at right face again noted. Resp: comfortable, unlabored, quiet on room air Medications: Current Facility-Administered Medications Medication Dose Route Frequency albuterol (PROVENTIL, VENTOLIN) 90 mcg/actuation inhaler 1-2 puff 1-2 puff inhalation Q6H PRN amitriptyline (ELAVIL) tablet 10 mg 10 mg oral QPM amLODIPine (NORVASC) tablet 10 mg 10 mg oral DAILY bisacodyl (DULCOLAX) suppository 10 mg 10 mg rectal DAILY PRN carvedilol (COREG) tablet 12.5 mg 12.5 mg oral BID W/MEALS FLUoxetine (PROZAC) capsule 10 mg 10 mg oral DAILY furosemide (LASIX) dose 10 mg 10 mg oral Once per day on Thu hydrALAZINE (APRESOLINE) injection 10 mg 10 mg intravenous Q4H PRN ibuprofen (MOTRIN) tablet 600 mg 600 mg oral Q6H PRN melatonin tablet 3 mg 3 mg oral HS PRN mycophenolate (CELLCEPT) capsule 500 mg 500 mg oral BID ondansetron ODT (ZOFRAN ODT) tablet 8 mg 8 mg oral Q12H PRN oxyCODONE (immediate release) (ROXICODONE) tablet 5-10 mg 5-10 mg oral Q4H PRN polyethylene glycol (MIRALAX) packet 34 g 34 g oral TID PRN prochlorperazine (COMPAZINE) injection 5-10 mg 5-10 mg intravenous Q4H PRN senna-docusate (SENOKOT S) 8.6-50 mg 1 tablet 1 tablet oral BID sirolimus (RAPAMUNE) tablet 3 mg 3 mg oral QAM Current Inpatient Medications Medication acetaminophen 325 mg oral tablet albuterol 90 mcg/actuation inhalation HFA aerosol inhaler calcium carbonate chewable 200 mg elemental (500 mg total salt) oral tablet,chewable calcium-vitamin D 500 mg(1,250mg) -200 unit oral tablet furosemide 20 mg oral tablet magnesium citrate oral solution metoprolol succinate 100 mg oral tablet extended release 24 hr multivitamin-minerals oral tablet mycophenolate (CELLCEPT) 250 mg oral capsule polyethylene glycol 17 gram oral powder in packet sirolimus 1 mg oral tablet Labs: Sirolimus level scheduled for trough prior to 4th dose as recommended by liver outpatient c linic at recent visit was scheduled for 09/11. Drawn today and was <2. The trough for 09/11/18 w as reordered. Assessment and Plan: Marissa Michaels Jr. is a 58 y.o. male with multiple medical problems including diastolic non-ischemic cardiomyopathy, history of OLT for liver cancer, and CKD admitted through the ED from outpatient clinic yesterday for hypertensive crisis with an Anaid, both improved today . His recent oncologic procedure had to be canceled and was re-scheduled for tomorrow. He liz ears now to be medically optimized for surgery, thus we will proceed now while this remains the case. Continue analgesia and diet as written Appreciate Cardiology consultation. Continue to treat hypertension per their recs Obtain CT scans of the head and neck with contrast for operative planning. NPO from midnight for procedure Dispo: continue acute Patient evaluated with Dr. Roach today on rounds. Alan Dwyer MD Otolaryngology Head and Neck Surgery, PGY-5 Eliza Escalera RN - 01/2019 3:30 PM PSTActing as scribe for the UR Committee Physician named below. The primary medical team for this patient and the [facility] UR Committee have agreed after furth er study that an inpatient admission was not medically necessary. This hospital stay is con verted to an outpatient stay through use of Medicare Condition Code 44. The patient was not ified of this change in writing. The providers involved in this decision were: For patient s primary medical team: Alyx Carrington MD For [facility] UR Committee: [place] [id number] documented in this encoun ter Plan of Treatment +--------+---------+ + + + | Date | Type | Specialty | Care Team | Description | +--------+---------+ + + + | 06/17/ | Office | Otolaryngology | Shlomo Roach MD | | | 2019 | Visit | | [address] | | | | | | [place], | | | | | | [place] [address] | | | | | | [phone] | | | | | | | | +--------+---------+ + + + documented as of this encounter Procedures + +--------+ + + + | Procedure Name | Priori | Date/Time | Associated Diagnosis | Comments | | | ty | | | | + +--------+ + + + | POTASSIUM TOTAL, | Routin | 09/11/2018 | | Results for this | | URINE | e | 1:47 PM | | procedure are in the | | | | PST | | results section. | + +--------+ + + + | SODIUM TOTAL, URINE | Routin | 09/11/2018 | | Results for this | | | e | 1:47 PM | | procedure are in the | | | | PST | | results section. | + +--------+ + + + | URINE, MICROSCOPIC | Routin | 09/11/2018 | | Results for this | | EXAM | e | 1:47 PM | | procedure are in the | | | | PST | | results section. | + +--------+ + + + | CHLORIDE, URINE | Routin | 09/11/2018 | | Results for this | | | e | 1:47 PM | | procedure are in the | | | | PST | | results section. | + +--------+ + + + | SIROLIMUS | Urgent | 09/11/2018 | | Results for this | | QUANTITATION, WHOLE | | 5:55 AM | | procedure are in the | | BLOOD | | PST | | results section. | + +--------+ + + + | BASIC METABOLIC SET | Routin | 09/11/2018 | | Results for this | | (NA, K, CL, TCO2, | e | 5:55 AM | | procedure are in the | | BUN, CR, GLU, CA) | | PST | | results section. | + +--------+ + + + | PROTEIN, URINE | Urgent | 09/10/2018 | | Results for this | | | | 4:17 PM | | procedure are in the | | | | PST | | results section. | + +--------+ + + + | CREATININE, URINE | Urgent | 09/10/2018 | | Results for this | | | | 4:17 PM | | procedure are in the | | | | PST | | results section. | + +--------+ + + + | OPERATION RECORD | | 09/10/2018 | | Results for this | | | | 8:42 AM | | procedure are in the | | | | PST | | results section. | + +--------+ + + + | INTRAPROCEDURE | Routin | 09/09/2018 | | Results for this | | IMAGING | e | 6:53 PM | | procedure are in the | | | | PST | | results section. | + +--------+ + + + | CAPILLARY BLOOD | Routin | 09/09/2018 | Squamous cell | Results for this | | GLUCOSE (NO CHG), | e | 3:08 PM | carcinoma of skin of | procedure are in the | | POC | | PST | ear, unspecified | results section. | | | | | laterality | | + +--------+ + + + | SURGICAL PATHOLOGY | Routin | 09/09/2018 | | Results for this | | | e | 2:24 PM | | procedure are in the | | | | PST | | results section. | + +--------+ + + + | EXCISION LESION | Electi | 09/09/2018 | Squamous cell | | | FACE, HEAD OR NECK | ve | 1:35 PM | cancer of external | | | | Surgic | PST | ear, unspecified | | | | al | | laterality | | + +--------+ + + + | BASIC METABOLIC SET | Urgent | 09/09/2018 | | Results for this | | (NA, K, CL, TCO2, | | 6:51 AM | | procedure are in the | | BUN, CR, GLU, CA) | | PST | | results section. | + +--------+ + + + | CARDIOLOGY | | 09/09/2018 | | Results for this | | | | 12:00 AM | | procedure are in the | | | | PST | | results section. | + +--------+ + + + | CT HEAD W CONTRAST | Urgent | 09/08/2018 | | Results for this | | | | 8:30 PM | | procedure are in the | | | | PST | | results section. | + +--------+ + + + | CT NECK SOFT TISSUE | Urgent | 09/08/2018 | | Results for this | | W CONTRAST | | 8:30 PM | | procedure are in the | | | | PST | | results section. | + +--------+ + + + | BASIC METABOLIC SET | Urgent | 09/08/2018 | | Results for this | | (NA, K, CL, TCO2, | | 6:26 PM | | procedure are in the | | BUN, CR, GLU, CA) | | PST | | results section. | + +--------+ + + + | SIROLIMUS | Urgent | 09/08/2018 | | Results for this | | QUANTITATION, WHOLE | | 10:28 AM | | procedure are in the | | BLOOD | | PST | | results section. | + +--------+ + + + | X-RAY CHEST 2 VIEW | Urgent | 09/07/2018 | | Results for this | | | | 12:31 PM | | procedure are in the | | | | PST | | results section. | + +--------+ + + + | 12 LEAD ECG | Routin | 09/07/2018 | | Results for this | | | e | 12:14 PM | | procedure are in the | | | | PST | | results section. | + +--------+ + + + | 12 LEAD ECG | Routin | 09/07/2018 | | Results for this | | | e | 11:36 AM | | procedure are in the | | | | PST | | results section. | + +--------+ + + + | RAINBOW HOLD TUBE - | Urgent | 09/07/2018 | | | | PURPLE TOP | | 11:26 AM | | | | | | PST | | | + +--------+ + + + | RAINBOW HOLD TUBE - | Urgent | 09/07/2018 | | | | GREEN TOP | | 11:26 AM | | | | | | PST | | | + +--------+ + + + | RAINBOW HOLD TUBE - | Urgent | 09/07/2018 | | | | BLUE TOP | | 11:26 AM | | | | | | PST | | | + +--------+ + + + | RAINBOW HOLD, CORE | Urgent | 09/07/2018 | | Results for this | | PANEL | | 11:26 AM | | procedure are in the | | | | PST | | results section. | + +--------+ + + + | BLOOD BANK HOLD TUBE | Urgent | 09/07/2018 | | Results for this | | - DON | | 11:26 AM | | procedure are in the | | | | PST | | results section. | | T PROCESS | | | | | + +--------+ + + + | CBC AND AUTO DIFF | Urgent | 09/07/2018 | | Results for this | | | | 11:26 AM | | procedure are in the | | | | PST | | results section. | + +--------+ + + + | CBC, WITH | Urgent | 09/07/2018 | | Results for this | | DIFFERENTIAL | | 11:26 AM | | procedure are in the | | | | PST | | results section. | + +--------+ + + + | TROPONIN I, PLASMA | Urgent | 09/07/2018 | | Results for this | | | | 11:26 AM | | procedure are in the | | | | PST | | results section. | + +--------+ + + + | COMPLETE METABOLIC | Urgent | 09/07/2018 | | Results for this | | SET | | 11:26 AM | | procedure are in the | | (NA,K,CL,CO2,BUN,CRE | | PST | | results section. | | AT,GLUC,CA,AST,ALT,B | | | | | | YAYO TOTAL,ALK | | | | | | PHOS,ALB,PROT TOTAL) | | | | | + +--------+ + + + | ED INFORMATION | Routin | 09/07/2018 | | Results for this | | EXCHANGE | e | 11:18 AM | | procedure are in the | | | | PST | | results section. | + +--------+ + + + documented in this encounter Results POTASSIUM TOTAL, URINE (09/11/2018 1:47 PM PST) + +--------+ + + + | Component | Value | Ref Range | Performed | Pathologist | | | | | At | Signature | + +--------+ + + + | POTASSIUM | 36 | mmol/L | [facility] | | | CONC UR | | | LABORATORY | | | | | | SERVICES, | | | | | | CORE | | + +--------+ + + + | URINE | Random | | [facility] | | | INTERVAL | | | LABORATORY | | | | | | SERVICES, | | | | | | CORE | | + +--------+ + + + | URINE | Spot | | [facility] | | | VOLUME | | | LABORATORY | | | | | | SERVICES, | | | | | | CORE | | + +--------+ + + + + + | Specimen | + + | Urine - Urine | | (substance) | + + + + + | Narrative | Performed At | + + + | Reference range based on 24 hour collection time. Patient results | [facility] | | are calculated from actual collection time. | LABORATORY | | | [place] | + + + + + + + + | Performing | Address | City/State/Zipcode | Phone Number | | Organization | | | | + + + + + | [facility] | [address] | [place] [address] | | | [place] | [address] | | | + + + + + CHLORIDE, URINE (09/11/2018 1:47 PM PST) + +--------+ + + + | Component | Value | Ref Range | Performed | Pathologist | | | | | At | Signature | + +--------+ + + + | CHLORIDE | 64 | mmol/L | [facility] | | | CONC URINE | | | LABORATORY | | | | | | SERVICES, | | | | | | CORE | | + +--------+ + + + | URINE | Random | | [facility] | | | INTERVAL | | | LABORATORY | | | | | | SERVICES, | | | | | | CORE | | + +--------+ + + + | URINE | Spot | | [facility] | | | VOLUME | | | LABORATORY | | | | | | SERVICES, | | | | | | CORE | | + +--------+ + + + + + | Specimen | + + | Urine - Urine | | (substance) | + + + + + | Narrative | Performed At | + + + | Reference range based on 24 hour collection time. Patient results | [facility] | | are calculated from actual collection time. | LABORATORY | | | SERVICES, CORE | + + + + + + + + | Performing | Address | City/State/Zipcode | Phone Number | | Organization | | | | + + + + + | [facility] | [address] | [place] [address] | | | SERVICES, CORE | [address] | | | + + + + + SODIUM TOTAL, URINE (09/11/2018 1:47 PM PST) + +--------+ + + + | Component | Value | Ref Range | Performed | Pathologist | | | | | At | Signature | + +--------+ + + + | SODIUM CONC | 62 | mmol/L | [facility] | | | URINE | | | LABORATORY | | | | | | SERVICES, | | | | | | CORE | | + +--------+ + + + | URINE | Random | | [facility] | | | INTERVAL | | | LABORATORY | | | | | | SERVICES, | | | | | | CORE | | + +--------+ + + + | URINE | Spot | | [facility] | | | VOLUME | | | LABORATORY | | | | | | SERVICES, | | | | | | CORE | | + +--------+ + + + + + | Specimen | + + | Urine - Urine | | (substance) | + + + + + | Narrative | Performed At | + + + | Reference range based on 24 hour collection time. Patient results | [facility] | | are calculated from actual collection time. | LABORATORY | | | SERVICES, CORE | + + + + + + + + | Performing | Address | City/State/Zipcode | Phone Number | | Organization | | | | + + + + + | [facility] | [address] | [place] [address] | | | SERVICES, CORE | [address] | | | + + + + + URINE, MICROSCOPIC EXAM (09/11/2018 1:47 PM PST) + +---------+ + + + | Component | Value | Ref Range | Performed | Pathologist | | | | | At | Signature | + +---------+ + + + | RED CELLS | 2 | 0 - 3 /hpf | [facility] | | | | | | LABORATORY | | | | | | SERVICES, | | | | | | CORE | | + +---------+ + + + | WHITE CELLS | <1 | 0 - 5 /hpf | [facility] | | | | | | LABORATORY | | | | | | SERVICES, | | | | | | CORE | | + +---------+ + + + | BACTERIA | None | None /hpf | [facility] | | | | | | LABORATORY | | | | | | SERVICES, | | | | | | CORE | | + +---------+ + + + | YEAST (LAB) | None | None /hpf | [facility] | | | | | | LABORATORY | | | | | | SERVICES, | | | | | | CORE | | + +---------+ + + + | SQUAMOUS | None | None, Few /hpf | [facility] | | | EPITHELIAL | | | LABORATORY | | | | | | SERVICES, | | | | | | CORE | | + +---------+ + + + | MUCOUS | None | None, Few /hpf | [facility] | | | | | | LABORATORY | | | | | | SERVICES, | | | | | | CORE | | + +---------+ + + + | NON-SQUAMOU | Few (A) | None /hpf | [facility] | | | S EPITH | | | LABORATORY | | | | | | SERVICES, | | | | | | CORE | | + +---------+ + + + | HYALINE | 0 | 0 - 2 /lpf | [facility] | | | CASTS | | | LABORATORY | | | | | | SERVICES, | | | | | | CORE | | + +---------+ + + + | GRANULAR | 0 | 0 - 2 /lpf | [facility] | | | CASTS | | | LABORATORY | | | | | | SERVICES, | | | | | | CORE | | + +---------+ + + + | CELLULAR | 0 | <=0 /lpf | [facility] | | | CASTS | | | LABORATORY | | | | | | SERVICES, | | | | | | CORE | | + +---------+ + + + | TRIPLE P04 | None | None, Few /hpf | [facility] | | | CRYSTALS | | | LABORATORY | | | | | | SERVICES, | | | | | | CORE | | + +---------+ + + + | CALCIUM | None | None, Few /hpf | [facility] | | | OXALATE | | | LABORATORY | | | MAR | | | SERVICES, | | | | | | CORE | | + +---------+ + + + | URIC ACID | None | None, Few /hpf | [facility] | | | CRYSTALS | | | LABORATORY | | | | | | SERVICES, | | | | | | CORE | | + +---------+ + + + | AMORPHOUS | None | None, Few /hpf | [facility] | | | CRYSTALS | | | LABORATORY | | | | | | SERVICES, | | | | | | CORE | | + +---------+ + + + + + | Specimen | + + | Urine - Urinary | | bladder structure | | (body structure) | + + + + + + + | Performing | Address | City/State/Zipcode | Phone Number | | Organization | | | | + + + + + | [facility] | [address] | [place] [address] | | | SERVICES, CORE | [address] | | | + + + + + BASIC METABOLIC SET (NA, K, CL, TCO2, BUN, CR, GLU, CA) (09/11/2018 5:55 AM PST) + + + + + + | Component | Value | Ref Range | Performed | Pathologist | | | | | At | Signature | + + + + + + | GLUCOSE, | 108 (H) | 70 - 99 mg/dL | [facility] | | | PLASMA | | | LABORATORY | | | (LAB) | | | SERVICES, | | | | | | CORE | | + + + + + + | BUN, PLASMA | 45 (H) | 6 - 20 mg/dL | [facility] | | | (LAB) | | | LABORATORY | | | | | | SERVICES, | | | | | | CORE | | + + + + + + | CREATININE | 1.70 (H) | 0.70 - 1.30 | [facility] | | | PLASMA | | mg/dL | LABORATORY | | | (LAB) | | | SERVICES, | | | | | | CORE | | + + + + + + | EGFR | 50 (L) | >60 mL/min | [facility] | | | - | | | LABORATORY | | | [place] | | | SERVICES, | | | | | | CORE | | + + + + + + | EGFR NON | 41 (L) | >60 mL/min | [facility] | | | -JAE | | | LABORATORY | | | [facility] | | | SERVICES, | | | | | | CORE | | + + + + + + | SODIUM, | 135 (L) | 136 - 145 | [facility] | | | PLASMA | | mmol/L | LABORATORY | | | (LAB) | | | SERVICES, | | | | | | CORE | | + + + + + + | POTASSIUM, | 4.0 | 3.4 - 5.0 | [facility] | | | PLASMA | | mmol/L | LABORATORY | | | (LAB) | | | SERVICES, | | | | | | CORE | | + + + + + + | CHLORIDE, | 100 | 97 - 108 mmol/L | [facility] | | | PLASMA | | | LABORATORY | | | (LAB) | | | SERVICES, | | | | | | CORE | | + + + + + + | TOTAL CO2, | 28 | 21 - 32 mmol/L | [facility] [...] | | Kidney Failure Estimated GFR greater than 60 mL/min/1.73 sq m is of | [...] | + + + + + | [facility] | [address] | [place] [address] | | | SERVICES, CORE | [address] | | | + + + + + SIROLIMUS QUANTITATION, WHOLE BLOOD (09/11/2018 5:55 AM PST) + +-------+ + + + | Component | Value | Ref Range | Performed | Pathologist | | | | | At | Signature | + +-------+ + + + | SIROLIMUS, | 9.2 | 4.0 - 12.0 | [facility] | [...] | Test performed by immunoassay using [employer] i2000. | [facility] | | Kidney transplant [...] | + + + + + | [facility] | [address] | [place] [address] | | | SERVICES, SPECIAL | [address] | | | | IMM + COAG | | | | + + + + + CREATININE, URINE (09/10/2018 4:17 PM PST) + +--------+ + + + | Component | Value | Ref Range | Performed | Pathologist | | | | | At | Signature | + +--------+ + + + | CREATININE | 40.30 | mg/dL | [facility] | | | CONC UR | | | LABORATORY | | | | | | SERVICES, | | | | | | CORE | | + +--------+ + + + | URINE | Random | | [facility] | | | INTERVAL | | | LABORATORY | | | | | | SERVICES, | | | | | | CORE | | + +--------+ + + + | URINE | Spot | | [facility] | | | VOLUME | | | LABORATORY | | | | | | SERVICES, | | | | | | CORE | | + +--------+ + + + + + | Specimen | + + | Urine - Urine | | (substance) | + + + + + | Narrative | Performed At | + + + | Reference range based on 24 hour collection time. Patient results | [facility] | | are calculated from actual collection time. | LABORATORY | | | [address] | + + + + + + + + | Performing | Address | City/State/Zipcode | Phone Number | | Organization | | | | + + + + + | [facility] | [address] | [place] [address] | | | SERVICES, [place] | [address] | | | + + + + + PROTEIN, URINE (09/10/2018 4:17 PM PST) + + + + + + | Component | Value | Ref Range | Performed | Pathologist | | | | | At | Signature | + + + + + + | PROTEIN | 30 | mg/dL | [facility] | | | CONC URINE | | | LABORATORY | | | | | | SERVICES, | | | | | | CORE | | + + + + + + | PROTEIN/CRE | 0.74 (H) | <0.10 mg/mg | [facility] | | | ATININE | | | LABORATORY | | | RATIO | | | SERVICES, | | | | | | CORE | | + + + + + + | URINE | Random | | [facility] | | | INTERVAL | | | LABORATORY | | | | | | SERVICES, | | | | | | CORE | | + + + + + + | URINE | Spot | | [facility] | | | VOLUME | | | LABORATORY | | | | | | SERVICES, | | | | | | CORE | | + + + + + + + + | Specimen | + + | Urine - Urine | | (substance) | + + + + + | Narrative | Performed At | + + + | Protein Reference Range: 50-80 mg/24hr At Rest <150 mg/24hr | [facility] | | Ambulatory, normal level of physical activity <250 mg/24hr | LABORATORY | | Strenuous physical activity Normal values based on 24 hour | SERVICES, CORE | | collection interval. Patient results are calculated from actual | | | collection interval and volume. | | + + + + + + + + | Performing | Address | City/State/Zipcode | Phone Number | | Organization | | | | + + + + + | [facility] | [address] | [place] [address] | | | SERVICES, CORE | [address] | | | + + + + + OPERATION RECORD (09/10/2018 8:42 AM PST) + + | Procedure Note | + + | Shlomo Roach MD - 09/10/2018 8:42 AM PST Date of Service: 09/09/2018 Attending | | Surgeon:Shlomo Roach MD Mr. Michaels is a | | gentleman who has had a liver transplant, multiple squamous cell carcinomas. He came in | | today to have these excised. He was brought to the operating room, where general | | anesthesia was induced. He was orotracheally intubated and prepped in the usual manner. | | He had a 15 x 5 cm excision of skin with 3 tumors on it. This was from his right face | | extending from above the eyebrow down onto his cheek. This was closed with advancement | | flaps by undermining 5 x 15 cm on the cheek and 15 x 2 cm on the medial aspect. He had | | excision of a chest wall skin cancer approximately 5 x 4 cm. I chatted with him | | previously. He understood what he wanted to have done and what we could do this | | sitting. He was consented for all of this. His consent as he rolled into the operating | | room did not have his chest lesion. We had talked about this extensively. He was | | asleep, and I elected to remove the chest lesion. He did understand the risks | | associated with that. After being put to sleep and a surgical pause, we excised his | | chest lesion. We measured out the defect, got a good rim of tissue around it | | skin incised with a scalpel and then used cautery to excise it in full depth. We then | | undermined and closed it with 3-0 Vicryl, 5-0 Caprosyn. The facial lesion we looked at, | | marked out 3 separate incisions, and then decided we could just do a single incision to | | encompass all 3 tumors in a longitudinal fashion. We then proceeded to do this. The | | skin was marked out and incised with a scalpel. Cautery used to dissect down to | | subcutaneous plane and then the lesion was excised and removed. We then undermined. | | There was quite a bit of tissue from his previous free flap. There was no tumor in this | | area. We undermined and then advanced the skin flaps. The undermining was performed | | both with scissors and cautery. The wound was closed with 3-0 Vicryl and 5-0 Caprosyn. | | There was a large dog-ear inferiorly. I left that as I think he continue to | | develop these cancers, and I did not want to discard any skin that could be used for | | reconstruction at a later date. Prior to the excision, he had 8 cc of 1% lidocaine with | | epi injected.Shlomo Roach, EVAN/MICHAELD: 09/09/2018 16:25:31DT: 09/10/2018 08:42:36Job #: | | [id number] | + + INTRAPROCEDURE IMAGING (09/09/2018 6:53 PM PST) + + | Specimen | + + | | + + + + + | Narrative | Performed At | + + + | See admission or procedure notes for details of any intraprocedure | | | images obtained. | | + + + CAPILLARY BLOOD GLUCOSE (NO CHG), POC (09/09/2018 3:08 PM PST) + +-------+ + + + | Component | Value | Ref Range | Performed | Pathologist | | | | | At | Signature | + +-------+ + + + | BLOOD | 85 | 60 - 99 mg/dL | [facility] - | [...] + + + + + | [facility] | [address] | [place], [place] | | | [facility] OF [facility] | [address] | [address] | | | TESTS | | | | + + + + + SURGICAL PATHOLOGY (09/09/2018 2:24 PM PST) + + + + + + | Component | Value | Ref Range | Performed | Pathologist | | | | | At | Signature | + + + + + + | Clinical | 58 year old male with a | | [facility] | | | History | history of squamous cell | | DEPARTMENT | | | | carcinoma | | OF | | | | | | PATHOLOGY | | + + + + + + | Final | A. Skin, chest, | | [facility] | Electronically | | Pathologic | excision: Squamous | | DEPARTMENT | signed by Arlen | | Diagnosis | cell carcinoma (2.6 cm) | | OF | MD Dwight on | | | moderately | | PATHOLOGY | 09/17/2018 at | | | differentiated, | | | 6:53 PM | | | superficially invasive ( | | | | | | depth 3 mm) Negative | | | | | | for lymphovascular or | | | | | | perineural invasion | | | | | | Margins negative for | | | | | | carcinomaB. Face, skin | | | | | | cancers, excision: | | | | | | Actinic keratoses, | | | | | | including proliferative | | | | | | variant, with ulceration | | | | | | and granulation tissue | | | | | | Case seen by:Prema | | | | | | MD Susie - | | | | | | Surgical Pathology | | | | | | Fellow Arlen Quintanilla MD - | | | | | | PathologistPathology, | | | | | | [facility] | | | | | | [facility] electronic | | | | | | signature indicates that | | | | | | I have personally | | | | | | reviewed all diagnostic | | | | | | slides, the gross and/or | | | | | | microscopic portion of | | | | | | this report and | | | | | | formulated the final | | | | | | diagnosis. | | | | + + + + + + | Gross | Received are 2 specimens | | [facility] | | | Description | fresh in containers | | DEPARTMENT | | | | labeled with the | | OF | | | | patient's name (initials | | PATHOLOGY | | | | TRH) and medical record | | | | | | number [id number]. | | | | | | Chest, chest: Received | | | | | | labeled "chest-1" is a | | | | | | reyna-pink skin excision | | | | | | (3.2 SI x 2.2 ML cm, | | | | | | excised to a depth of | | | | | | 0.5 cm) with a suture at | | | | | | one tip designating | | | | | | inferior. The specimen | | | | | | is inked as follows: | | | | | | Left = blue, right = | | | | | | green, deep = black. | | | | | | The epithelial surface | | | | | | is remarkable for a 2.6 | | | | | | x 2.0 x 0.5 cm | | | | | | reyna-white, nodular, | | | | | | fungating lesion that | | | | | | comes within 0.3 cm of | | | | | | the nearest resection | | | | | | margin on the inferior | | | | | | left side. The lesion | | | | | | extends to a depth of | | | | | | 0.3 cm, coming within | | | | | | 0.3 cm of the nearest | | | | | | deep margin. The | | | | | | specimen is submitted | | | | | | entirely.A1: Superior | | | | | | tip, bisectedA2-A6: Body | | | | | | of specimen, | | | | | | sequentially from | | | | | | superior to inferiorA7: | | | | | | Inferior tip, bisectedB. | | | | | | Face, skin cancers: | | | | | | Received labeled "skin | | | | | | cancers-2" is a 9.6 SI x | | | | | | 2.7 AP cm portion of | | | | | | reyna-pink skin, excised | | | | | | to a depth of 0.5 cm. | | | | | | The specimen is received | | | | | | with a suture | | | | | | designating inferior and | | | | | | is inked as follows: | | | | | | Anterior = blue, | | | | | | posterior = green, deep | | | | | | = black. The epithelial | | | | | | surface is remarkable | | | | | | for 3 reyna-white, | | | | | | nodular, fungating and | | | | | | focally ulcerated | | | | | | lesions ranging from | | | | | | 1.5-3.0 cm in greatest | | | | | | dimension. The 2 | | | | | | smaller lesions appear | | | | | | to possibly be | | | | | | contiguous, while the | | | | | | larger lesion is located | | | | | | 1.3 cm superior. The | | | | | | lesions focally abut the | | | | | | posterior margin and | | | | | | come within 0.1 cm of | | | | | | the anterior margin. The | | | | | | lesions extend to a | | | | | | maximum depth of 0.3 cm, | | | | | | coming within 0.2 cm of | | | | | | the nearest deep | | | | | | resection margin. The | | | | | | specimen is submitted | | | | | | entirely.B1: Superior | | | | | | tip, trisectedB2-B10: | | | | | | Body of specimen, | | | | | | sequentially from | | | | | | superior to [id number]: | | | | | | Inferior tip, | | | | | | trisected(RLW) | | | | + + + + + + | Ancillary | Analyte specific | | [facility] | | | Information | reagents are used in | | DEPARTMENT | | | | many laboratory tests | | OF | | | | necessary for standard | | PATHOLOGY | | | | medical care. This test | | | | | | was developed and its | | | | | | performance | | | | | | characteristics | | | | | | determined by [facility] | | | | | | laboratories. It has | | | | | | not been cleared or | | | | | | approved by the US Food | | | | | | and Drug Administration | | | | | | (FDA). FDA does not | | | | | | require this test to go | | | | | | through premarket FDA | | | | | | review. This test is | | | | | | used for clinical | | | | | | purposes. It should not | | | | | | be regarded as | | | | | | investigational or for | | | | | | research. This | | | | | | laboratory is certified | | | | | | under the Clinical | | | | | | Laboratory Improvement | | | | | | Amendments (CLIA) as | | | | | | qualified to perform | | | | | | high complexity clinical | | | | | | laboratory testing. | | | | + + + + + + + + | Specimen | + + | Tissue - Thoracic | | structure (body | | structure) | + + | Tissue - Face | | structure (body | | structure) | + + + + + + + | Performing | Address | City/State/Zipcode | Phone Number | | Organization | | | | + + + + + | [facility] | [address] | [place] [address] | | | PATHOLOGY | [address] | | | + + + + + BASIC METABOLIC SET (NA, K, CL, TCO2, BUN, CR, GLU, CA) (09/09/2018 6:51 AM PST) + + + + + + | Component | Value | Ref Range | Performed | Pathologist | | | | | At | Signature | + + + + + + | GLUCOSE, | 96 | 70 - 99 mg/dL | [facility] | | | PLASMA | | | LABORATORY | | | (LAB) | | | SERVICES, | | | | | | CORE | | + + + + + + | BUN, PLASMA | 31 (H) | 6 - 20 mg/dL | [facility] | | | (LAB) | | | LABORATORY | | | | | | SERVICES, | | | | | | CORE | | + + + + + + | CREATININE | 1.37 (H) | 0.70 - 1.30 | [facility] | | | PLASMA | | mg/dL | LABORATORY | | | (LAB) | | | SERVICES, | | | | | | CORE | | + + + + + + | EGFR | >60 | >60 mL/min | [facility] | | | - | | | LABORATORY | | | [facility] | | | SERVICES, | | | | | | CORE | | + + + + + + | EGFR NON | 53 (L) | >60 mL/min | [facility] | | | -JAE | | | LABORATORY | | | [facility] | | | SERVICES, | | | | | | CORE | | + + + + + + | SODIUM, | 138 | 136 - 145 | [facility] | | | PLASMA | | mmol/L | LABORATORY | | | (LAB) | | | SERVICES, | | | | | | CORE | | + + + + + + | POTASSIUM, | 3.9 [...] + + + | TOTAL CO2, | 26 | 21 - 32 mmol/L | [facility] | | | PLASMA | | | LABORATORY | | | (LAB) | | | SERVICES, | | | | | | CORE | | + + + + + + | CALCIUM, | 7.8 (L) | 8.6 - 10.2 | [facility] [...] | | Kidney Failure Estimated GFR greater than 60 mL/min/1.73 sq m is of | [...] | + + + + + | [facility] | [address] | [place] [address] | | | SERVICES, CORE | [address] | | | + + + + + CARDIOLOGY (09/09/2018 12:00 AM PST) + + + | Narrative | Performed At | + + + | | | + + + CT HEAD W CONTRAST (09/08/2018 8:30 PM PST) + + | Specimen | + + | | + + + + + | Narrative | Performed At | + + + | EXAM: CT NECK SOFT TISSUE W CONTRAST, CT HEAD W CONTRAST | [facility] | | HISTORY: History of right auricular cancer status post surgery, with | RADIOLOGY VOICE | | recurrence noted in clinic visit. Hypertension noted in clinic today. | RECOGNITION 2 | | Preoperative evaluation. COMPARISON: MRI sinus 01/04/2016 | | | TECHNIQUE: Axial CT images of the neck and head with iodine based | | | intravenous contrast, with sagittal and coronal reformations. | | | FINDINGS: PHARYNX/LARYNX: Unremarkable. SALIVARY GLANDS: The | | | right parotid gland is surgically absent. There is some residual | | | parotid tissue overlying the masseter muscle, similar compared to MRI | | | from 01/31/2016. The right submandibular gland is surgically absent.. | | | LYMPH NODES: Scattered surgical clips are seen in the right neck. | | | There is a focus of hyperdense tissues within the right level 2A which | | | may represent scarred, fibrotic tissue and appears similar to MRI | | | from 01/03/2015 (series 3, image 38). OTHER NECK SOFT TISSUES: | | | Unremarkable. SKULL/SKULL BASE: Postsurgical changes from a prior | | | right total auriculectomy, resection of the right parotid, and | | | temporal bone resection are noted. PARANASAL SINUSES: Visualized | | | portions are unremarkable. POSTERIOR FOSSA: Visualized portions are | | | unremarkable. SPINE: Visualized portions are unremarkable. LUNG | | | APICES: Biapical cysts are noted. BRAIN: No acute intracranial | | | hemorrhage, mass herniation, or hydrocephalus. Sinuses are | | | unremarkable. No abnormal enhancement. IMPRESSION: Since MRI | | | from 01/04/2016, there is stable postsurgical changes from prior right | | | parotidectomy with resection in the right parotid gland and temporal | | | bone. There is stable appearance of a sliver of residual right parotid | | | tissue and soft tissue density lesions within the level 2A resection | | | region. No adenopathy is seen No acute intracranial | | | abnormality. No abnormal enhancement. Availability of results was | | | communicated to the ED lead furnace operator on 09/08/2018 8:46 PM by Jeanette Bolden | | | MD Julián. I have personally reviewed the images and, if | | | necessary, edited the report. I agree with the report as now | | | presented. Final signature: Olman Matias MD 09/08/2018 8:51 | | | PM Preliminary: Jeanette Gallego MD Dictation initiated: | | | Jeanette Gallego MD 09/08/2018 8:31 PM | | + + + + + | Procedure Note | + + | Service Account, Radiant Res In Interface - 09/08/2018 9:09 PM PST EXAM: CT NECK | | SOFT TISSUE W CONTRAST, CT HEAD W CONTRAST HISTORY: History of right auricular cancer | | status post surgery, with recurrence noted in clinic visit. Hypertension noted in clinic | | today. Preoperative evaluation. COMPARISON: MRI sinus 01/04/2016 TECHNIQUE: Axial CT | | images of the neck and head with iodine based intravenous contrast, with sagittal and | | coronal reformations. FINDINGS: PHARYNX/LARYNX: Unremarkable.SALIVARY GLANDS: The right | | parotid gland is surgically absent. There is some residual parotid tissue overlying the | | masseter muscle, similar compared to MRI from 01/31/2016. The right submandibular gland | | is surgically absent..LYMPH NODES: Scattered surgical clips are seen in the right neck. | | There is a focus of hyperdense tissues within the right level 2A which may represent | | scarred, fibrotic tissue and appears similar to MRI from 01/03/2015 (series 3, image | | 38).OTHER NECK SOFT TISSUES: Unremarkable. SKULL/SKULL BASE: Postsurgical changes from a | | prior right total auriculectomy, resection of the right parotid, and temporal bone | | resection are noted.PARANASAL SINUSES: Visualized portions are unremarkable.POSTERIOR | | FOSSA: Visualized portions are unremarkable. SPINE: Visualized portions are | | unremarkable.LUNG APICES: Biapical cysts are noted. BRAIN: No acute intracranial | | hemorrhage, mass herniation, or hydrocephalus. Sinuses are unremarkable. No abnormal | | enhancement. IMPRESSION: Since MRI from 01/04/2016, there is stable postsurgical changes | | from prior right parotidectomy with resection in the right parotid gland and temporal | | bone. There is stable appearance of a sliver of residual right parotid tissue and soft | | tissue density lesions within the level 2A resection region. No adenopathy is seen No | | acute intracranial abnormality. No abnormal enhancement. Availability of results was | | communicated to the ED lead furnace operator on 09/08/2018 8:46 PM by Jeanette Gallego MD. I have | | personally reviewed the images and, if necessary, edited the report. I agree with the | | report as now presented. Final signature: Olman Matias MD 09/08/2018 8:51 PM | | Preliminary: Jeanette Gallego MD Dictation initiated: Jeanette Gallego MD 09/08/2018 | | 8:31 PM | |Since MRI from 01/04/2016, there is stable postsurgical changes from prior right parotidectom y with resection in the right parotid gland and temporal bone. There is stable appearance of a sliver of residual right parotid | |tissue and soft tissue density lesions within the level 2A resection region. | | | |No adenopathy is seen | | | |No acute intracranial abnormality. No abnormal enhancement. | | | |Availability of results was communicated to the ED lead furnace operator on 09/08/2018 8:46 PM by Jeanette Gallego MD. | | | |I have personally reviewed the images and, if necessary, edited the report. I agree with e report as now presented. | | | |Final signature: Olman Matias MD 09/08/2018 8:51 PM | |Preliminary: Jeanette Gallego MD | |Dictation initiated: Jeanette Gallego MD 09/08/2018 8:31 PM | + + + +---------+ + + | Performing | Address | City/State/Zipcode | Phone Number | | Organization | | | | + +---------+ + + | [facility] | | | | | VOICE RECOGNITION 2 | | | | + +---------+ + + CT NECK SOFT TISSUE W CONTRAST (09/08/2018 8:30 PM PST) + + | Specimen | + + | | + + + + + | Narrative | Performed At | + + + | EXAM: CT NECK SOFT TISSUE W CONTRAST, CT HEAD W CONTRAST | [facility] | | HISTORY: History of right auricular cancer status post surgery, with | RADIOLOGY VOICE | | recurrence noted in clinic visit. Hypertension noted in clinic today. | RECOGNITION 2 | | Preoperative evaluation. COMPARISON: MRI sinus 01/04/2016 | | | TECHNIQUE: Axial CT images of the neck and head with iodine based | | | intravenous contrast, with sagittal and coronal reformations. | | | FINDINGS: PHARYNX/LARYNX: Unremarkable. SALIVARY GLANDS: The | | | right parotid gland is surgically absent. There is some residual | | | parotid tissue overlying the masseter muscle, similar compared to MRI | | | from 01/31/2016. The right submandibular gland is surgically absent.. | | | LYMPH NODES: Scattered surgical clips are seen in the right neck. | | | There is a focus of hyperdense tissues within the right level 2A which | | | may represent scarred, fibrotic tissue and appears similar to MRI | | | from 01/03/2015 (series 3, image 38). OTHER NECK SOFT TISSUES: | | | Unremarkable. SKULL/SKULL BASE: Postsurgical changes from a prior | | | right total auriculectomy, resection of the right parotid, and | | | temporal bone resection are noted. PARANASAL SINUSES: Visualized | | | portions are unremarkable. POSTERIOR FOSSA: Visualized portions are | | | unremarkable. SPINE: Visualized portions are unremarkable. LUNG | | | APICES: Biapical cysts are noted. BRAIN: No acute intracranial | | | hemorrhage, mass herniation, or hydrocephalus. Sinuses are | | | unremarkable. No abnormal enhancement. IMPRESSION: Since MRI | | | from 01/04/2016, there is stable postsurgical changes from prior right | | | parotidectomy with resection in the right parotid gland and temporal | | | bone. There is stable appearance of a sliver of residual right parotid | | | tissue and soft tissue density lesions within the level 2A resection | | | region. No adenopathy is seen No acute intracranial | | | abnormality. No abnormal enhancement. Availability of results was | | | communicated to the ED lead furnace operator on 09/08/2018 8:46 PM by Jeanette Bolden | | | MD Julián. I have personally reviewed the images and, if | | | necessary, edited the report. I agree with the report as now | | | presented. Final signature: Olman Matias MD 09/08/2018 8:51 | | | PM Preliminary: Jeanette Gallego MD Dictation initiated: | | | Jeanette Gallego MD 09/08/2018 8:31 PM | | + + + + + | Procedure Note | + + | Service Account, Radiant Res In Interface - 09/08/2018 9:09 PM PST EXAM: CT NECK | | SOFT TISSUE W CONTRAST, CT HEAD W CONTRAST HISTORY: History of right auricular cancer | | status post surgery, with recurrence noted in clinic visit. Hypertension noted in clinic | | today. Preoperative evaluation. COMPARISON: MRI sinus 01/04/2016 TECHNIQUE: Axial CT | | images of the neck and head with iodine based intravenous contrast, with sagittal and | | coronal reformations. FINDINGS: PHARYNX/LARYNX: Unremarkable.SALIVARY GLANDS: The right | | parotid gland is surgically absent. There is some residual parotid tissue overlying the | | masseter muscle, similar compared to MRI from 01/31/2016. The right submandibular gland | | is surgically absent..LYMPH NODES: Scattered surgical clips are seen in the right neck. | | There is a focus of hyperdense tissues within the right level 2A which may represent | | scarred, fibrotic tissue and appears similar to MRI from 01/03/2015 (series 3, image | | 38).OTHER NECK SOFT TISSUES: Unremarkable. SKULL/SKULL BASE: Postsurgical changes from a | | prior right total auriculectomy, resection of the right parotid, and temporal bone | | resection are noted.PARANASAL SINUSES: Visualized portions are unremarkable.POSTERIOR | | FOSSA: Visualized portions are unremarkable. SPINE: Visualized portions are | | unremarkable.LUNG APICES: Biapical cysts are noted. BRAIN: No acute intracranial | | hemorrhage, mass herniation, or hydrocephalus. Sinuses are unremarkable. No abnormal | | enhancement. IMPRESSION: Since MRI from 01/04/2016, there is stable postsurgical changes | | from prior right parotidectomy with resection in the right parotid gland and temporal | | bone. There is stable appearance of a sliver of residual right parotid tissue and soft | | tissue density lesions within the level 2A resection region. No adenopathy is seen No | | acute intracranial abnormality. No abnormal enhancement. Availability of results was | | communicated to the ED lead furnace operator on 09/08/2018 8:46 PM by Jeanette Gallego MD. I have | | personally reviewed the images and, if necessary, edited the report. I agree with the | | report as now presented. Final signature: Olman Matias MD 09/08/2018 8:51 PM | | Preliminary: Jeanette Gallego MD Dictation initiated: Jeanette Gallego MD 09/08/2018 | | 8:31 PM | |Since MRI from 01/04/2016, there is stable postsurgical changes from prior right parotidectom y with resection in the right parotid gland and temporal bone. There is stable appearance of a sliver of residual right parotid | |tissue and soft tissue density lesions within the level 2A resection region. | | | |No adenopathy is seen | | | |No acute intracranial abnormality. No abnormal enhancement. | | | |Availability of results was communicated to the ED lead furnace operator on 09/08/2018 8:46 PM by Jeanette Gallego MD. | | | |I have personally reviewed the images and, if necessary, edited the report. I agree with e report as now presented. | | | |Final signature: Olman Matias MD 09/08/2018 8:51 PM | |Preliminary: Jeanette Gallego MD | |Dictation initiated: Jeanette Gallego MD 09/08/2018 8:31 PM | + + + +---------+ + + | Performing | Address | City/State/Zipcode | Phone Number | | Organization | | | | + +---------+ + + | [facility] | | | | | VOICE RECOGNITION 2 | | | | + +---------+ + + BASIC METABOLIC SET (NA, K, CL, TCO2, BUN, CR, GLU, CA) (09/08/2018 6:26 PM PST) + + + + + + | Component | Value | Ref Range | Performed | Pathologist | | | | | At | Signature | + + + + + + | GLUCOSE, | 85 | 70 - 99 mg/dL | [facility] | | | PLASMA | | | LABORATORY | | | (LAB) | | | SERVICES, | | | | | | CORE | | + + + + + + | BUN, PLASMA | 30 (H) | 6 - 20 mg/dL | [facility] | | | (LAB) | | | LABORATORY | | | | | | SERVICES, | | | | | | CORE | | + + + + + + | CREATININE | 1.31 (H) | 0.70 - 1.30 | [facility] | | | PLASMA | | mg/dL | LABORATORY | | | (LAB) | | | SERVICES, | | | | | | CORE | | + + + + + + | EGFR | >60 | >60 mL/min | [facility] | | | - | | | LABORATORY | | | [facility] | | | SERVICES, | | | | | | CORE | | + + + + + + | EGFR NON | 56 (L) | >60 mL/min | [facility] | [...] + + + + | POTASSIUM, | 5.1 (H) | 3.4 - 5.0 | [facility] | | | PLASMA | | mmol/L | LABORATORY | | | (LAB) | | | SERVICES, | | | | | | CORE | | + + + + + + | CHLORIDE, | 107 | 97 - 108 mmol/L | [facility] | | | PLASMA | | | LABORATORY | | | (LAB) | | | SERVICES, | | | | | | CORE | | + + + + + + | TOTAL CO2, | 22 | 21 - 32 mmol/L | [facility] | | | PLASMA | | | LABORATORY | | | (LAB) | | | SERVICES, | | | | | | CORE | | + + + + + + | CALCIUM, | 7.4 (L) | 8.6 - 10.2 | [facility] [...] + + + + | POTASSIUM | Sl Hemo | | [facility] | | | [...] Performed At | + + + | Sample hemolyzed. Results for K, Total Bili, Direct Bili, AST, | [facility] | | LDH, or HDL may be inaccurate. Refer to comment under test result. | LABORATORY | | GFR is estimated using the MDRD equation recommended by the National | SERVICES, CORE | | Kidney Disease Education Program. Estimated GFR Interpretive | | | Information: <60 mL/min/1.73 sq m Chronic Kidney | | | Disease <15 mL/min/1.73 sq m Kidney Failure | | | Estimated GFR greater than 60 mL/min/1.73 sq m is of limited clinical | | | value. The MDRD equation is not valid in the following situations: | | | - Patients under 18 years of age - Severe malnutrition or obesity | | | - Vegetarian diet - Rapidly changing kidney function - Amputees, | | | paraplegics, or other muscle-wasting diseses | | + + + + + + + + | Performing | Address | City/State/Zipcode | Phone Number | | Organization | | | | + + + + + | [facility] | [address] | [place] [address] | | | SERVICES, [facility] | [address] | | | + + + + + SIROLIMUS QUANTITATION, WHOLE BLOOD (09/08/2018 10:28 AM PST) + + + + + + | Component | Value | Ref Range | Performed | Pathologist | | | | | At | Signature | + + + + + + | SIROLIMUS, | <2.0 (L) | 4.0 - 12.0 | [facility] [...] | Test performed by immunoassay using [employer] i2000. | [facility] | | Kidney transplant [...] | + + + + + | [facility] | [address] | [place] [address] | | | SERVICES, SPECIAL | [address] | | | | IMM + COAG | | | | + + + + + X-RAY CHEST 2 VIEW (09/07/2018 12:31 PM PST) + + | Specimen | + + | | + + + + + | Narrative | Performed At | + + + | EXAM: CHEST 2 VIEWS HISTORY: Patient with a history of abdominal | [facility] | | aortic aneurysm, liver transplant in 2015, congestive heart failure | RADIOLOGY VOICE | | and hypertension who is on a scheduled outpatient transplant | RECOGNITION 2 | | appointment when he was noted to be hypertensive 200/110 | | | COMPARISON: 03/03/2018. FINDINGS: No pneumothorax, pulmonary | | | edema, pleural effusion or focal consolidation demonstrated. The | | | cardiomediastinal silhouette is stable. The heart is normal in size. | | | Mild degenerative changes of the spine present. Stable | | | benign-appearing sclerotic focus in the left humerus likely reflecting | | | a benign enchondroma. Subtle irregularity of the lateral right ninth | | | rib at likely reflects a healed old fracture. No new acute osseous | | | abnormality. IMPRESSION: Clear lungs. No pulmonary edema. | | | I have personally reviewed the images and, if necessary, edited the | | | report. I agree with the report as now presented. Final | | | signature: Kalyani Reilly MD 09/07/2018 12:49 PM Preliminary: Kalyani Hyde | | MD Melba Dictation initiated: Kalyani Reilly MD 09/07/2018 | | | 12:46 PM | | + + + + + | Procedure Note | + + | Service Account, [employer] Res In Interface - 09/07/2018 12:52 PM PST EXAM: CHEST 2 | | VIEWS HISTORY: Patient with a history of abdominal aortic aneurysm, liver transplant in | | 2014, congestive heart failure and hypertension who is on a scheduled outpatient | | transplant appointment when he was noted to be hypertensive 200/110 COMPARISON: | | 03/03/2018. FINDINGS: No pneumothorax, pulmonary edema, pleural effusion or focal | | consolidation demonstrated. The cardiomediastinal silhouette is stable. The heart is | | normal in size. Mild degenerative changes of the spine present. Stable benign-appearing | | sclerotic focus in the left humerus likely reflecting a benign enchondroma. Subtle | | irregularity of the lateral right ninth rib at likely reflects a healed old fracture. No | | new acute osseous abnormality. IMPRESSION: Clear lungs. No pulmonary edema. I have | | personally reviewed the images and, if necessary, edited the report. I agree with the | | report as now presented. Final signature: Kalyani Reilly MD 09/07/2018 12:49 PM | | Preliminary: Kalyani Reilly MD Dictation initiated: Kalyani Reilly MD 09/07/2018 12:46 | | PM | | | |Clear lungs. No pulmonary edema. | | | |I have personally reviewed the images and, if necessary, edited the report. I agree with th e report as now presented. | | | |Final signature: Kalyani Reilly MD 09/07/2018 12:49 PM | |Preliminary: Kalyani Reilly MD | |Dictation initiated: Kalyani Reilly MD 09/07/2018 12:46 PM | + + + +---------+ + + | Performing | Address | City/State/Zipcode | Phone Number | | Organization | | | | + +---------+ + + | [facility] | | | | | VOICE RECOGNITION 2 | | | | + +---------+ + + 12 LEAD ECG (09/07/2018 12:14 PM PST) + + + + + + | Component | Value | Ref Range | Performed | Pathologist | | | | | At | Signature | + + + + + + | VENTRICULAR | 70 | bpm | [facility] | | | RATE | | | OF | | | | | | CARDIOLOGY | | + + + + + + | ATRIAL RATE | 70 | ms | [facility] | | | | | | OF | | | | | | CARDIOLOGY | | + + + + + + | P-R | 152 | ms | [facility] | | | INTERVAL | | | OF | | | | | | CARDIOLOGY | | + + + + + + | P AXIS | -3 | deg | [facility] | | | | | | OF | | | | | | CARDIOLOGY | | + + + + + + | QRS | 105 | ms | [facility] | | | DURATION | | | OF | | | | | | CARDIOLOGY | | + + + + + + | QT | 460 | ms | [facility] | | | | | | OF | | | | | | CARDIOLOGY | | + + + + + + | QTCB | 496 | ms | [facility] | | | | | | OF | | | | | | CARDIOLOGY | | + + + + + + | R AXIS | -32 | deg | [facility] | | | | | | OF | | | | | | CARDIOLOGY | | + + + + + + | T AXIS | 24 | deg | [facility] | | | | | | OF | | | | | | CARDIOLOGY | | + + + + + + | ECG | Sinus rhythm | | [facility] | | | [...] | | OF | | | | 09-07-2018 15:31:41 | | CARDIOLOGY | | + + [...] + | [facility] | [address] | [place], [place] | | | CARDIOLOGY | [address] | [address] | | + + + + + 12 LEAD ECG (09/07/2018 11:36 AM PST) + + + + + +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 PST | | | | | at 2100, Until Discontinued | | | | | | + +--------+ +-------+------+------+ +---+---+ | | | +---+---+ + +-------+ +-------+---+---+ | amLODIPine (NORVASC) tablet 10 | Given | 09/11/19 | 10 mg | | | | mg 10 mg, oral, DAILY, First | | 19 8:00 | | | | | dose on Thu09/07/18 at 1630, Until | | AM PST | | | | | Discontinued | | | | | | + +-------+ +-------+---+---+ +-------+ +-------+---+---+ | Given | 09/10/19 | 10 mg | | | | | 19 8:16 | | | | | | AM PST | | | | +-------+ +-------+---+---+ | Given | 09/09/19 | 10 mg | | | | | 19 7:39 | | | | | | AM PST | | | | +-------+ +-------+---+---+ +---+---+ | | | +---+---+ + +-------+ +------+---+---+ | amLODIPine (NORVASC) tablet 5 | Given | 09/07/19 | 5 mg | | | | mg 5 mg, oral, ONCE, 1 dose, Tue | | 19 12:42 | | | | | 09/07/18 at 1300 | | PM PST | | | | + +-------+ +------+---+---+ +---+---+ | | | +---+---+ + +-------+ +---------+---+------+ | bacitracin ointment | Given | 09/09/19 | 1 strip | | Face | | INTRAPROCEDURE PRN, Starting Zoya | | 19 2:47 | | | | | 09/09/18 at 1447, Until Zoya 09/09/18 | | PM PST | | | | | at 1501 | | | | | | + +-------+ +---------+---+------+ +---+---+ | | | +---+---+ + +-------+ +---------+---+---+ | carvedilol (COREG) tablet 12.5 | Given | 09/09/19 | 12.5 mg | | | | mg 12.5 mg, oral, TWICE DAILY | | 19 7:39 | | | | | WITH MEALS, First dose on Thu | | AM PST | | | | | 09/07/18 at 1999, Until | | | | | | | Discontinued | | | | | | + +-------+ +---------+---+---+ +-------+ +---------+---+---+ | Given | 09/08/19 | 12.5 mg | | | | | 19 6:11 | | | | | | PM PST | | | | +-------+ +---------+---+---+ | Given | 09/08/19 | 12.5 mg | | | | | 19 8:45 | | | | | | AM PST | | | | +-------+ +---------+---+---+ +---+---+ | | | +---+---+ + +-------+ +-------+---+---+ | chlorhexidine (PERIDEX) | Given | 09/11/19 | 15 mL | | | | mouthwash 15 mL 15 mL, oral, | | 19 10:26 | | | | | EVERY 6 HOURS, First dose on Zoya | | AM PST | | | | | 09/09/18 at 1045, Until | | | | | | | Discontinued | | | | | | + +-------+ +-------+---+---+ +-------+ +-------+---+---+ | Given | 09/11/19 | 15 mL | | | | | 19 6:04 | | | | | | AM PST | | | | +-------+ +-------+---+---+ | Given | 09/10/19 | 15 mL | | | | | 19 9:49 | | | | | | PM PST | | | | +-------+ +-------+---+---+ +---+---+ | | | +---+---+ + +-------+ +---------+---+---+ | chlorthalidone (HYGROTON) | Given | 09/11/19 | 12.5 mg | | | | tablet 12.5 mg 12.5 mg, oral, | | 19 8:11 | | | | | DAILY, First dose on Thu09/10/18 | | AM PST | | | | | at 1400, Until Discontinued | | | | | | + +-------+ +---------+---+---+ +-------+ +---------+---+---+ | Given | 09/10/19 | 12.5 mg | | | | | 19 3:31 | | | | | | PM PST | | | | +-------+ +---------+---+---+ +---+---+ | | | +---+---+ + +-------+ +-------+---+---+ | famotidine (PEPCID) tablet 20 | Given | 09/11/19 | 20 mg | | | | mg 20 mg, oral, TWICE DAILY, | | 19 8:02 | | | | | First dose on Thu09/09/18 at 1045, | | AM PST | | | | | Until Discontinued | | | | | | + +-------+ +-------+---+---+ +-------+ +-------+---+---+ | Given | 09/10/19 | 20 mg | | | | | 19 9:48 | | | | | | PM PST | | | | +-------+ +-------+---+---+ | Given | 09/10/19 | 20 mg | | | | | 19 8:14 | | | | | | AM PST | | | | +-------+ +-------+---+---+ +---+---+ | | | +---+---+ + +-------+ +--------+---+---+ | fentaNYL (SUBLIMAZE) injection | Given | 09/09/19 | 25 mcg | | | | 25 mcg 25 mcg, intravenous, | | 19 4:00 | | | | | POSTPROCEDURE PRN, 8 doses, | | PM PST | | | | | Starting [facility] 09/09/18 at 1509, | | | | | | | Until [facility] 09/09/18 at 1824, severe | | | | | | | pain while in Phase I Recovery | | | | | | + +-------+ +--------+---+---+ +-------+ +--------+---+---+ | Given | 09/09/19 | 25 mcg | | | | | 19 3:45 | | | | | | PM PST | | | | +-------+ +--------+---+---+ +---+---+ | | | +---+---+ + +-------+ +-------+---+---+ | FLUoxetine (PROZAC) capsule 10 | Given | 09/11/19 | 10 mg | | | | mg 10 mg, oral, DAILY, First | | 19 8:01 | | | | | dose on Thu09/07/18 at 1630, Until | | AM PST | | | | | Discontinued | | | | | | + +-------+ +-------+---+---+ +-------+ +-------+---+---+ | Given | 09/07/19 | 10 mg | | | | | 19 8:09 | | | | | | PM PST | | | | +-------+ +-------+---+---+ +---+---+ | | | +---+---+ + +-------+ +-------+---+---+ | furosemide (LASIX) dose 10 mg | Given | 09/10/19 | 10 mg | | | | 10 mg, oral, EVERY MO-WE-FR (Once | | 19 8:15 | | | | | per day on Thu), First | | AM PST | | | | | dose on Thu09/08/18 at 0900, Until | | | | | | | Discontinued | | | | | | + +-------+ +-------+---+---+ +-------+ +-------+---+---+ | Given | 09/08/19 | 10 mg | | | | | 19 10:34 | | | | | | AM PST | | | | +-------+ +-------+---+---+ +---+---+ | | | +---+---+ + +-------+ +-------+---+---+ | hydrALAZINE (APRESOLINE) | Given | 09/09/19 | 10 mg | | | | injection 10 mg 10 mg, | | 19 8:10 | | | | | intravenous, EVERY 4 HOURS | | AM PST | | | | | NEEDED, Starting Thu09/07/18 at | | | | | | | 1853, Until Thu09/09/18 at 1000, | | | | | | | hypertension, first line | | | | | | + +-------+ +-------+---+---+ +---+---+ | | | +---+---+ + +-------+ +-------+---+---+ | hydrALAZINE (APRESOLINE) | Given | 09/10/19 | 10 mg | | | | injection 10 mg 10 mg, | | 19 10:11 | | | | | intravenous, EVERY 4 HOURS | | AM PST | | | | | NEEDED, Starting Zoya 09/09/18 at | | | | | | | 1000, Until Thu09/10/18 at 1052, | | | | | | | hypertension, first line | | | | | | + +-------+ +-------+---+---+ +-------+ +-------+---+---+ | Given | 09/10/19 | 10 mg | | | | | 19 4:32 | | | | | | AM PST | | | | +-------+ +-------+---+---+ | Given | 09/10/19 | 10 mg | | | | | 19 12:27 | | | | | | AM PST | | | | +-------+ +-------+---+---+ +---+---+ | | | +---+---+ + +-------+ +-------+---+---+ | hydrALAZINE (APRESOLINE) | Given | 09/09/19 | 10 mg | | | | injection 10 mg 10 mg, | | 19 5:33 | | | | | intravenous, POSTPROCEDURE PRN, 2 | | PM PST | | | | | doses, Starting Zoya 09/09/18 at | | | | | | | 1510, Until Zoya 09/09/18 at 1824, | | | | | | | hypertension | | | | | | + +-------+ +-------+---+---+ +---+---+ | | | +---+---+ + +-------+ +-------+---+---+ | hydrALAZINE (APRESOLINE) tablet | Given | 09/10/19 | 25 mg | | | | 25 mg 25 mg, oral, THREE TIMES | | 19 8:14 | | | | | DAILY, First dose on Zoya 09/09/18 | | AM PST | | | | | at 1200, Until Discontinued | | | | | | + +-------+ +-------+---+---+ +-------+ +-------+---+---+ | Given | 09/09/19 | 25 mg | | | | | 19 8:32 | | | | | | PM PST | | | | +-------+ +-------+---+---+ +---+---+ | | | +---+---+ + +-------+ +--------+---+---+ | HYDROmorphone (DILAUDID) | Given | 09/09/19 | 0.3 mg | | | | injection 0.2-0.5 mg 0.2-0.5 mg, | | 19 4:55 | | | | | intravenous, POSTPROCEDURE PRN, | | PM PST | | | | | Starting Zoya 09/09/18 at 1509, | | | | | | | Until [facility] 09/09/18 at 1824, | | | | | | | moderate pain while in Phase I | | | | | | | Recovery | | | | | | + +-------+ +--------+---+---+ +-------+ +--------+---+---+ | Given | 09/09/19 | 0.2 mg | | | | | 19 4:20 | | | | | | PM PST | | | | +-------+ +--------+---+---+ +---+---+ | | | +---+---+ + +---------+ +--------+---+---+ | iohexol (OMNIPAQUE) 350 mg | IV Push | 09/08/19 | 100 mL | | | | iodine/mL injection 100 mL 100 | | 19 8:21 | | | | | mL, intravenous, ONCE, 1 dose, | | PM PST | | | | | 09/08/18 at 2100 | | | | | | + +---------+ +--------+---+---+ +---+---+ | | | +---+---+ + +-------+ +------+---+ + | lidocaine-EPINEPHrine | Given | 09/09/19 | 8 mL | | Surgical | | (XYLOCAINE WITH EPINEPHRINE) 1 | | 19 2:13 | | | Site | | %-1:100,000 injection | | PM PST | | | | | INTRAPROCEDURE PRN, Starting Zoya | | | | | | | 09/09/18 at 1413, Until Zoya 09/09/18 | | | | | | | at 1501 | | | | | | + +-------+ +------+---+ + +---+---+ | | | +---+---+ + +-------+ +--------+---+---+ | metoprolol succinate | Given | 09/11/19 | 100 mg | | | | (TOPROL-XL) tablet 100 mg 100 | | 19 8:00 | | | | | mg, oral, DAILY, First dose on | | AM PST | | | | | 09/10/18 at 1230, Until | | | | | | | Discontinued | | | | | | + +-------+ +--------+---+---+ +-------+ +--------+---+---+ | Given | 09/10/19 | 100 mg | | | | | 19 1:37 | | | | | | PM PST | | | | +-------+ +--------+---+---+ +---+---+ | | | +---+---+ + +-------+ +--------+---+---+ | mycophenolate (CELLCEPT) | Given | 09/11/19 | 500 mg | | | | capsule 500 mg 500 mg, oral, | | 19 8:01 | | | | | TWICE DAILY, First dose on e | | AM PST | | | | | 09/07/18 at 2100, Until | | | | | | | Discontinued | | | | | | + +-------+ +--------+---+---+ +-------+ +--------+---+---+ | Given | 09/10/19 | 500 mg | | | | | 19 9:51 | | | | | | PM PST | | | | +-------+ +--------+---+---+ | Given | 09/10/19 | 500 mg | | | | | 19 8:14 | | | | | | AM PST | | | | +-------+ +--------+---+---+ +---+---+ | | | +---+---+ + +-------+ +------+---+---+ | ondansetron ODT (ZOFRAN ODT) | Given | 09/08/19 | 8 mg | | | | tablet 8 mg 8 mg, oral, EVERY 12 | | 19 11:24 | | | | | HOURS NEEDED, Starting Wed | | AM PST | | | | | 09/08/18 at 1116, Until 09/11/18 | | | | | | | at 1652, nausea/vomiting, first | | | | | | | line | | | | | | + +-------+ +------+---+---+ +---+---+ | | | +---+---+ + +-------+ +-------+---+---+ | oxyCODONE (immediate release) | Given | 09/07/19 | 10 mg | | | | (ROXICODONE) tablet 10 mg 10 mg, | | 19 1:36 | | | | | oral, ONCE, 1 dose, 09/07/18 | | PM PST | | | | | at 1330 | | | | | | + +-------+ +-------+---+---+ +---+---+ | | | +---+---+ + +-------+ +-------+---+---+ | oxyCODONE (immediate release) | Given | 09/11/19 | 10 mg | | | | (ROXICODONE) tablet 5-10 mg 5-10 | | 19 10:18 | | | | | mg, oral, EVERY 4 HOURS | | AM PST | | | | | NEEDED, Starting 09/07/18 at | | | | | | | 2211, Until 09/11/18 at 1652, | | | | | | | severe pain | | | | | | + +-------+ +-------+---+---+ +-------+ +-------+---+---+ | Given | 09/11/19 | 10 mg | | | | | 19 6:03 | | | | | | AM PST | | | | +-------+ +-------+---+---+ | Given | 09/11/19 | 10 mg | | | | | 19 1:53 | | | | | | AM PST | | | | +-------+ +-------+---+---+ + +---+ | | | + +---+ | prochlorperazine (COMPAZINE) | | | injection 5-10 mg 5-10 mg, | | | intravenous, EVERY 4 HOURS | | | NEEDED, Starting 09/08/18 at | | | 1116, Until 09/11/18 at 1652, | | | nausea/vomiting, second line | | + +---+ | | | + +---+ + +-------+ + +---+---+ | senna-docusate (SENOKOT S) | Given | 09/11/19 | 1 tablet | | | | 8.6-50 mg 1 tablet 1 tablet, | | 19 8:01 | | | | | oral, TWICE DAILY, First dose on | | AM PST | | | | | 09/07/18 at 2100, Until | | | | | | | Discontinued | | | | | | + +-------+ + +---+---+ +-------+ + +---+---+ | Given | 09/10/19 | 1 tablet | | | | | 19 9:49 | | | | | | PM PST | | | | +-------+ + +---+---+ | Given | 09/10/19 | 1 tablet | | | | | 19 8:15 | | | | | | AM PST | | | | +-------+ + +---+---+ +---+---+ | | | +---+---+ + +-------+ +------+---+---+ | sirolimus (RAPAMUNE) tablet 3 | Given | 09/11/19 | 3 mg | | | | mg 3 mg, oral, EVERY MORNING, | | 19 8:01 | | | | | First dose on Thu09/08/18 at 0900, | | AM PST | | | | | Until Discontinued | | | | | | + +-------+ +------+---+---+ +-------+ +------+---+---+ | Given | 09/10/19 | 3 mg | | | | | 19 8:13 | | | | | | AM PST | | | | +-------+ +------+---+---+ | Given | 09/09/19 | 3 mg | | | | | 19 7:39 | | | | | | AM PST | | | | +-------+ +------+---+---+ +---+---+ | | | +---+---+ + +---------+ + + +---+ | sodium chloride 0.9 % (NS) IV | New Bag | 09/08/19 | 60 mL/hr | 60 mL/hr | | | infusion 60 mL/hr, intravenous, | | 19 6:16 | | | | | CONTINUOUS, Starting Thu09/08/18 | | PM PST | | | | | at 1830, Until Zoya 09/09/18 at 0640 | | | | | | + +---------+ + + +---+ +---+---+ | | | +---+---+ + +-------+ +--------+---+---+ | tamsulosin (FLOMAX) capsule 0.4 | Given | 09/11/19 | 0.4 mg | | | | mg 0.4 mg, oral, DAILY, First | | 19 8:01 | | | | | dose on [facility] 09/09/18 at 2030, Until | | AM PST | | | | | Discontinued | | | | | | + +-------+ +--------+---+---+ +-------+ +--------+---+---+ | Given | 09/10/19 | 0.4 mg | | | | | 19 8:14 | | | | | | AM PST | | | | +-------+ +--------+---+---+ | Given | 09/09/19 | 0.4 mg | | | | | 19 8:29 | | | | | | PM PST | | | | +-------+ +--------+---+---+ +---+---+ | | | +---+---+ documented in this encounter
--- OUTSIDE RECORDS SUMMARY | ~2019-05-14 | XMS | Encounter Summary ---
Demographics + + + | Address | [address] | | | [place] [address] | + + + | Home Phone [...] Team Providers + +------+ + | Care Military Pay Clerk Name | Role | Phone | + +------+ + PCP | Unavailable | + +------+ + Encounter Details +--------+ + + + + | Date | Type | Department | Care Team | Description | +--------+ + + + + | 09/17/ | Office | | Note, Outpatient | Progress Note | | 2005 | Visit-Trans | | Clinic | | | | cribed | | | | +--------+ + + [...] documented as of this encounter Progress Notes Interface, [employer] - 10/04/2005 2:12 AM PST [id number] [facility] Clinic Date: 09/17/2005 Clinic: [facility]ol[facility]ology [facility] Mr. 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 The patient states that he had this area resected twice in the past and then irradiated over a period of approximately 2 weeks while he was in [place]. This was just finished approximately 1 year ago, and since then, he has had progressive growth of this area which has been quite rapid over the last 6 months, he states. There is significant pain associated with it with infrequent otorrhea, though there has been some oozing from the lesion itself. He has noticed no numbness or twitching of his face. He has no other symptoms of dysphagia, odynophagia, or hoarseness. His hearing is down on that side ever since having irradiation compared to his left side. He has no other significant otologic history and no history of ear infections or ear surgery for that matter. The patient has been evaluated by Dr. Leon Hernandez and determined to need a wide resection of the area to include a lateral temporal bone resection as well as a parotidectomy and a free-flap reconstruction. I was contacted with regard to this to assist with lateral temporal bone resection. Physical Examination: HEENT: On examination, Mr. Michaels has an approximately 2-cm lesion just anterior and somewhat superior to the tragus. This is quite painful to touch. There is surrounding erythema and rolled edges to it. It has a dark black color to it, and it is quite firm. It does feel to infiltrate rather deeply. Examination of his internal auditory canal reveals no gross involvement. With movement of the lesion, it does seem attached at least to the cartilaginous external auditory canal. The pinna otherwise has solar keratosis present which the patient has scattered throughout his face. There are also some early what appear to be squamous cell and basal cell carcinomas, both on his right and left cheek and on his forehead. The postauricular area is unremarkable. Neck: Palpation of his neck reveals no adenopathy. Neurologic: His facial nerve function is intact and equal in all branches on both sides. Diagnostic Workup: His CT scan is reviewed that was performed here at [facility], reveals this lesion immediately adjacent to the cartilaginous external auditory canal. It does seem to be infiltrating down to the bone in the area. The middle ear as well as the mastoid on this side is pneumatized. The jugular bulb does not appear to be high or dehiscent, and the facial nerve appears relatively normal in its course as far as we can tell on his neck CT scan. His audiogram performed today is reviewed. He has symmetric mild moderate to severe downsloping sensorineural hearing loss bilaterally but asymmetric speech scores with a score of approximately 68 on the right and 89 on the left. Review of the CT scan after interpreting these results shows no obvious lesion in the internal auditory canal on the right-hand side. Assessment and Plan: Advanced, recurrent skin squamous cell carcinoma, twice previously resected and partially irradiated. This is a rather extensive lesion infiltrating deeply. The plan per Dr. Hernandez is to proceed with parotidectomy as well as lateral temporal bone resection and wide local excision of this lesion. Dr. Roach will use a radial forearm free flap to reconstruct the area. I held an extensive discussion with the patient today regarding the risks involved, specifically with lateral temporal bone resection in general and with the procedure to be performed. I answered all his questions with regard to this, and he seemed to understand the issues at hand. We will see him tomorrow in the operating room. Roberth Aponte M.D. PATRICK / MIKAYLA [id number] / [id number] / [id number] / [id number] Electronically signed by Roberth Aponte 10-03-2005 02:05:17 PM documented i n this encounter Plan of Treatment +--------+---------+ + + + | Date | Type | Specialty | Care Team | Description | +--------+---------+ + + + | 06/17/ | Office | Otolaryngology | Shlomo Roach MD | | | 2019 | Visit | | [address] | | | | | | [place], | | | | | | [place] [address] | | | | | | [phone] | | | | | | | | +--------+---------+ + + + documented as of this encounter Visit Diagnoses Not on filedocumented in this encounter"
--- OUTSIDE RECORDS SUMMARY | ~2019-05-14 | XMS | Encounter Summary ---
Demographics + + + | Address | [address] | | | [place] [address] | + + + | Home Phone [...] + | Author | [facility] [facility] | + + + | Organization | [facility] [employer] [facility] | + + + | Address [...] Team Providers + +------+ + | Care Research Support Specialist Name | Role | Phone | + +------+ + | Sylvester Scherer DO | PCP | | + +------+ + Reason for Visit + + + | Reason | Comments | + + + | Transplant | | | Appointment | | + + + Encounter Details +--------+ + + + + | Date | Type | Department | Care Team | Description | +--------+ + + + + | 03/14/ | Telephone | Transplant | Valente Welch | Transplant | | 2014 | | Coordinators [address] | [facility] [address] | Appointment | | | | [facility] | [address] | | | | | [address] [place], [place] | [place] [address] | | | | | [address] | [phone] | | | | | [phone] | | | +--------+ + + + [...] | | | | | [address] [place], | | | | | | [place] [address] | | | | | | [phone] | | | | | | | | +--------+---------+ + + + documented as of this encounter Visit Diagnoses Not on filedocumented in this encounter"
--- OUTSIDE RECORDS SUMMARY | ~2019-05-14 | XMS | Encounter Summary ---
Demographics + + + | Address | [address] | | | [place] [address] | + + + | Home Phone [...] + + | Author | [facility] [employer] [facility] | + + + | Organization | [facility] [employer] [facility] | + + + | Address [...] Team Providers + +------+ + | Care Manager Technology Name | Role | Phone | + +------+ + | Sylvester Scherer DO | PCP | | + +------+ + Encounter Details +--------+ + + + + | Date | Type | Department | Care Team | Description | +--------+ + + + + | 12/12/ | Documentati | Digestive Health | Valente Welch | | | 2014 | on | [facility] at [facility] [address] | [facility] [address] | | | | | [address] | [address] | | | | | Mailcode: OC8D | [place] [address] | | | | | [facility] | [phone] | | | | | [facility] Healing, | | | | | | [address] | | | | | | [place], [place] | | | | | | [address] | | | | | | [phone] | | | +--------+ + + + [...] | | | | | [address] [place], | | | | | | [place] [address] | | | | | | [phone] | | | | | | | | +--------+---------+ + + + documented as of this encounter Visit Diagnoses Not on filedocumented in this encounter"
--- OUTSIDE RECORDS SUMMARY | ~2019-05-14 | XMS | Encounter Summary ---
Demographics + + + | Address | [address] | | | [place] [address] | + + + | Home Phone [...] + + + | Author | [facility] [employer] [facility] | + + + | Organization | [facility] [employer] [facility] | + + + | Address | [...] Team Providers + +------+ + | Care Supply Chain Buyer Name | Role | Phone | + +------+ + | Ritesh England PA-C | PCP | | + +------+ + Reason for Referral PROC - Inpatient Surgery (Routine) + +---------+ + + + + | Status | Reason | Specialty | Diagnoses / | Referred By | Referred To | | | | | Procedures | Contact | Contact | + +---------+ + + + + | Authorized | Coded | Otolaryngolog | Diagnoses | Cruz | Wax, Shlomo, | | | | y | Acute | Bernard Bradley | [address] | | | | | sialoadeniti | MD [address] | [address] | | | | | s Mcmahon's | [address] | [address] | | | | | palsy | [address] | [place], [place] | | | | | Personal | Rd | [address] | | | | | history of | [place], [place] | Phone: | | | | | other | [address] | [phone] | | | | | malignant | Phone: | Fax: | | | | | neoplasm of | [phone] | [phone] | | | | | skin Liver | Fax: | | | | | | transplant | [phone] | | | | | | status | | | | | | | Chronic | | | | | | | kidney | | | | | | | disease, | | | | | | | unspecified | | | | | | | Essential | | | | | | | (primary) | | | | | | | hypertension | | | | | | | Procedures | | | | | | | SURGICAL | | | | | | | CASE REQUEST | | | | | | | MN EXC | | | | | | | PAROTD,TOTAL | | | | | | | ,DISSECT 5TH | | | | | | | NERV MN | | | | | | | EXC | | | | | | | PAROTD,LAT | | | | | | | LOBE,DISSECT | | | | | | | 5TH NERV | | | | | | | MN EXC | | | | | | | PAROTD,TOTAL | | | | | | | ,SACRIFICE | | | | | | | 5TH NERV MN | | | | | | | | | | | | | | SIALOENDOSCO | | | | | | | PY MN REPR | | | | | | | BL VES VEIN | | | | | | | GRFT,NECK | | | | | | | MN HARVEST | | | | | | | VEIN/ARTERY | | | | | | | GRAFT 90 G | | | + +---------+ + + + + Encounter Details +--------+ + + + + | Date | Type | Department | Care Team | Description | +--------+ + + + + | 04/27/ | Tight Barrel Inspector | Otolaryngology | Bernard Sandhu | Parotitis (Primary | | 2018 | | Head and Neck | MD [address] [facility] | Dx) | | | | Surgery Services at | [facility] | | | | | [facility] [address] | [place], [place] | | | | | Josey Mailcode: | [address] | | | | | [place] for [facility] | [phone] | | | | | and Healing, | | | | | | Building [address] | | | | | | [place], [place] | | | | | | [address] | | | | | | [phone] | | | +--------+ + + + [...] | | 2019 | Visit | | [address] | | | | | | [address] [place], | | | | | | [place] [address] | | | | | | [phone] | | | | | | | | +--------+---------+ + + + documented as of this encounter Visit Diagnoses + + | Diagnosis | + + | Parotitis - Primary Sialoadenitis | + + documented in this encounter"
--- OUTSIDE RECORDS SUMMARY | ~2019-05-14 | XMS | Encounter Summary ---
Demographics + + + | Address | [address] | | | [place] [address] | + + + | Home Phone | | + + + | Preferred Language | Unknown | + + + | Marital Status | Single | + + + | Scientology Affiliation | BAP | + + + | Race | White | + + + | Ethnic Group | Not or | + + + Author + + + | Author | [facility] | + + + | Organization | [facility] | + + [...] Team Providers + +------+ + | Care Crimper Operator Name | Role | Phone | [...] + + + + | 11/18/ | Telephone | Transplant | Yvette Perkins RN | Liver Transplant | | 2018 | | Coordinators [address] | [address] | Follow Up (repeat | | | | [address] | [address] [employer], | labs) | | | | [place], [place] | [place] [address] | | | | | [address] | | | | | | [phone] | | | +--------+ + + + [...] | | | | | [address] [place], | | | | | | [place] [address] | | | | | | [phone] | | | | | | | | +--------+---------+ + + + documented as of this encounter Visit Diagnoses Not on filedocumented in this encounter"
--- OUTSIDE RECORDS SUMMARY | ~2019-05-14 | XMS | Encounter Summary ---
Demographics + + + | Address | [address] | | | [place] [address] | + + + | Home Phone [...] + | Author | [facility] | + + + | Organization | [facility] [employer] [facility] | + + + | Address [...] Team Providers + +------+ + | Care Transfer And Pumphouse Operator Name | Role | Phone | + +------+ + | Ritesh England PA-C | PCP | | + +------+ + Reason for Visit Benefits Check (Routine) +--------+--------+ + + + + | Status | Reason | Specialty | Diagnoses / | Referred By | Referred To | | | | | Procedures | Contact | Contact | +--------+--------+ + + + + | Closed | | Otolaryngolog | Diagnoses | Gilmer, | Shlomo Roach, | | | | y | Malignant | DO Sylvester | [address] | | | | | neoplasm of | [facility] | [address] | | | | | head, face | Hospital | [address] | | | | | and neck | Internal | [place], [place] | | | | | Procedures | Medicin | [address] | | | | | [place] | [address] | Phone: | | | | | OFFICE/OUTPT | [address] | [phone] | | | | | | [place], | Fax: | | | | | VISIT,EST,LE | [place] [address] | [phone] | | | | | [address] | Phone: | | | | | | | [phone] | | | | | | | Fax: | | | | | | | [phone] | | +--------+--------+ + + + + Encounter Details +--------+---------+ + + + | Date | Type | Department | Care Team | Description | +--------+---------+ + + + | 02/16/ | Office | Otolaryngology | Shlomo Roach MD | Squamous cell | | 2018 | Visit | Head and Neck | [address] | carcinoma of skin of | | | | Surgery Services at | [facility], | ear, unspecified | | | | [address] | [place] [address] | laterality (Primary | | | | [address] | [phone] | Dx) | | | | Mailcode: PV01 | | | | | | [facility] | | | | | | [place], [place] | | | | | | [address] | | | | | | [phone] | | | +--------+---------+ + + + [...] + + + | Blood Pressure | 191/109 | 02/16/2018 1:13 PM | | | | | PDT | | + + + + + | Pulse | 98 | 02/16/2018 1:13 PM | | | | | PDT [...] + + + + | Weight | 57.9 kg (127 lb 9.6 | 02/16/2018 1:13 PM | | | | oz) | PDT | | + + + + + | Height | - | - | | + + + + + | Body Mass Index | 19.4 | 01/14/2018 6:07 AM | | | [...] documented as of this encounter Progress Notes Shlomo Roach MD - 02/16/2018 2:46 PM PDTClinic Date:02/16/2018 I saw Mr. Michaels today. The majority of the visit was spent in counseling. Greater than 20 minutes. 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 Most of these are from sun exposure and from his immunotherapy. Frankie barrera now has another lesion, 1 on the vertex of his scalp, 1 on each side of his neck, and 1 on his arm. They are painful. He recognizes that when they reach this stage, they start to g row quickly and become painful, pus-like, and are quite bothersome to him from a symptomatic perspective. The one on his right neck is about a centimeter by a centimeter. On his left neck, it is maybe 3 x 3 cm. The vertex is 0.5 x 0.5 cm, and the one on his right arm is mo re of a cutaneous horn, about 1 x 1 cm. I examined him. I agree with these lesions. They do look like they are to rapi dly enlarge and cause him symptoms. I think the best thing would be to excise them at this time. We could reconstruct them with some simple rotation advancement flaps. I do not thin k that this is going to cure him from his skin disease, but it certainly will prevent these from becoming symptomatic. We will go ahead and arrange that. Shlomo Roach MD MW/SABRA /[id number] signed by Shlomo Roach MD at 02/16/2018 4:33 PM PDTWax Shlomo MD - 02/16/2018 12:15 PM PDTDictation #1 [id number] signed by Shlomo Roach MD at 02/16/2018 2:08 PM PDTdocumented in this en counter Plan of Treatment +--------+---------+ + + + | Date | Type | Specialty | Care Team | Description | +--------+---------+ + + + | 06/17/ | Office | Otolaryngology | Shlomo Roach MD | | | 2019 | Visit | | [address] | | | | | | [address] [place], | | | | | | [place] [address] | | | | | | [phone] | | | | | | | | +--------+---------+ + + + documented as of this encounter Visit Diagnoses + + | Diagnosis | + + | Squamous cell carcinoma of skin of ear, unspecified laterality - Primary | + + documented in this encounter"
--- OUTSIDE RECORDS SUMMARY | ~2019-05-14 | XMS | Encounter Summary ---
Demographics + + + | Address | [address] | | | [place] [address] | + + + | Home Phone [...] + + | Author | [facility] [employer] [facility] | + + + | Organization | [facility] | + + + | Address [...] Team Providers + +------+ + | Care Tree Sapper Name | Role | Phone | + +------+ + | Ritesh England PA-C | PCP | | + +------+ + Encounter Details +--------+ + + + + | Date | Type | Department | Care Team | Description | +--------+ + + + + | 04/27/ | Procedure | Diagnostic Imaging | | | | 2019 | Pass | Services at [facility] | | | | | | [address] | | | | | | [address] Mailcode: | | | | | | [address] [facility] | | | | | | [place], [place] | | | | | | [address] | | | | | | [phone] | | | +--------+ + + + [...] | | | | | [address] [place], | | | | | | [place] [address] | | | | | | [phone] | | | | | | | | +--------+---------+ + + + documented as of this encounter Visit Diagnoses Not on filedocumented in this encounter"
--- OUTSIDE RECORDS SUMMARY | ~2019-05-14 | XMS | Encounter Summary ---
Demographics + + + | Address | [address] | | | [place] [address] | + + + | Home Phone | | + + + | Preferred Language | Unknown | + + + | Marital Status | Single | + + + | Sabianist Affiliation | BAP | + + + | Race | White | + + + | Ethnic Group | Not or | + + + Author + + + | Author | [facility] [employer] [facility] | + + + | Organization | [facility] | + + + | Address [...] Team Providers + +------+ + | Care Visual And Stock Associate Name | Role | Phone | + +------+ + | Ritesh England PA-C | PCP | | + +------+ + Reason for Visit + + + | Reason | Comments | + + + | Telephone follow-up | 5B Day Stay discharge follow-up | + + + Encounter Details +--------+ + + + + | Date | Type | Department | Care Team | Description | +--------+ + + + + | 03/08/ | Telephone | [facility] [address] | Shlomo Roach MD | Telephone follow-up | | 2018 | IP | [address] | [address] | [facility]5B Day Stay | | [facility], | discharge follow-up) | | | | [place], [place] | [place] [address] | | | | | [address] | [phone] | | | | | [phone] | | | +--------+ + + + [...] | | | | | [address] [place], | | | | | | [place] [address] | | | | | | [phone] | | | | | | | | +--------+---------+ + + + documented as of this encounter Visit Diagnoses Not on filedocumented in this encounter"
--- OUTSIDE RECORDS SUMMARY | ~2019-05-14 | XMS | Encounter Summary ---
Demographics + + + | Address | [address] | | | [place] [address] | + + + | Home Phone [...] + + | Author | [facility] | + + + | Organization | [facility] [employer] [facility] | + + + [...] Team Providers + +------+ + | Care Miller Supervisor Name | Role | Phone | + +------+ + | Ritesh England PA-C | PCP | | + +------+ + Encounter Details +--------+ + + + + | Date | Type | Department | Care Team | Description | +--------+ + + + + | 09/17/ | Ancillary | Registration [address] | [address], | | | 2005 | Registratio | [address] | [address] | | | [address] | [address] Mailcode: [id number] | [facility] | | | | | [place], [place] | [place], [place] | | | | | [address] | [address] | | | | | [phone] | [phone] | | | | | | | [...] | | | | | [address] [place], | | | | | | [place] [address] | | | | | | [phone] | | | | | | | | +--------+---------+ + + + documented as of this encounter Procedures + +--------+ + + + | Procedure Name | Priori | Date/Time | Associated Diagnosis | Comments | | | ty | | | | + +--------+ + + + | INR | Routin | 09/17/2005 | | Results for this | | | e | 3:45 PM | | procedure are in the | | | | PST | | results section. | + +--------+ + + + | COMPLETE METABOLIC | Routin | 09/17/2005 | | Results for this | | SET | e | 3:45 PM | | procedure are in the | | (NA,K,CL,CO2,BUN,CRE | | PST | | results section. | | AT,GLUC,CA,AST,ALT,B | | | | | | YAYO TOTAL,ALK | | | | | | PHOS,ALB,PROT TOTAL) | | | | | + +--------+ + + + | CBC ONLY | Routin | 09/17/2005 | | Results for this | | | e | 3:45 PM | | procedure are in the | | | | PST | | results section. | + +--------+ + + + | APTT (ACT. PART. | Routin | 09/17/2005 | | Results for this | | THROMBO TIME) | e | 3:45 PM | | procedure are in the | | | | PST | | results section. | + +--------+ + + + documented in this encounter Results COMP METABOLIC SET (09/17/2005 3:45 PM PST) + +---------+ + + + | Component | Value | Ref Range | Performed | Pathologist | | | | | At | Signature | + +---------+ + + + | GLUCOSE, | 84 | 65 - 110 mg/dL | [facility] | | | PLASMA | | | DEPARTMENT | | | (LAB) | | | OF | | | | | | PATHOLOGY | | + +---------+ + + + | BUN, PLASMA | 6 | 6 - 20 mg/dL | [facility] | | | (LAB) | | | DEPARTMENT | | | | | | OF | | | | | | PATHOLOGY | | + +---------+ + + + | CREATININE | 0.6 (L) | 0.7 - 1.3 mg/dL | [facility] | | | PLASMA | | | DEPARTMENT | | | (LAB) | | | OF | | | | | | PATHOLOGY | | + +---------+ + + + | TOTAL | 6.9 | 6.1 - 7.9 g/dL | [facility] | | | PROTEIN, | | | DEPARTMENT | | | PLASMA | | | OF | | | (LAB) | | | PATHOLOGY | | + +---------+ + + + | ALBUMIN, | 3.7 | 3.5 - 4.7 g/dL | [facility] | | | PLASMA | | | DEPARTMENT | | | (LAB) | | | OF | | | | | | PATHOLOGY | | + +---------+ + + + | CALCIUM, | 8.7 | 8.5 - 10.5 | [facility] | | | PLASMA | | mg/dL | DEPARTMENT | | | (LAB) | | | OF | | | | | | PATHOLOGY | | + +---------+ + + + | BILIRUBIN | 0.5 | 0.3 - 1.2 mg/dL | [facility] | | | TOTAL | | | DEPARTMENT | | | | | | OF | | | | | | PATHOLOGY | | + +---------+ + + + | ALK PHOS | 90 | 53 - 128 U/L | [facility] | | | | | | DEPARTMENT | | | | | | OF | | | | | | PATHOLOGY | | + +---------+ + + + | AST(SGOT) | 77 (H) | 15 - 41 U/L | [facility] | | | | | | DEPARTMENT | | | | | | OF | | | | | | PATHOLOGY | | + +---------+ + + + | SODIUM, | 140 | 136 - 145 | [facility] | | | PLASMA | | mmol/L | DEPARTMENT | | | (LAB) | | | OF | | | | | | PATHOLOGY | | + +---------+ + + + | POTASSIUM, | 3.7 | 3.5 - 5.1 | [facility] | | | PLASMA | | mmol/L | DEPARTMENT | | | (LAB) | | | OF | | | | | | PATHOLOGY | | + +---------+ + + + | CHLORIDE, | 105 | 98 - 107 mmol/L | [facility] | | | PLASMA | | | DEPARTMENT | | | (LAB) | | | OF | | | | | | PATHOLOGY | | + +---------+ + + + | TOTAL CO2, | 28 | 23 - 29 mmol/L | [facility] | | | PLASMA | | | DEPARTMENT | | | (LAB) | | | OF | | | | | | PATHOLOGY | | + +---------+ + + + | ALT (SGPT) | 118 (H) | 13 - 48 U/L | [facility] | | | | | | DEPARTMENT | | | | | | OF | | | | | | PATHOLOGY | | + +---------+ + + + + + | Specimen | + + | | + + + + + | Narrative | Performed At | + + + | [id number] Estimated GFR > 60 mL/min/1.73 sq m if non- | [facility] | | [id number] Estimated GFR > 60 mL/min/1.73 sq m [...] | + + + + + | [facility] DEPARTMENT | [address] | [facility] [place] [address] | | | PATHOLOGY | [address] | | | + + + + + | [facility] DEPARTMENT OF | [address] | [place] [address] | | | PATHOLOGY | [address] | | | + + + + + CBC ONLY WITH PLATELET (09/17/2005 3:45 PM PST) + + + + + + | Component | Value | Ref Range | Performed | Pathologist | | | | | At | Signature | + + + + + + | WHITE CELL | 6.0 | 4.4 - 11.0 K/cu | [facility] | | | COUNT | | mm | DEPARTMENT | | | | | | OF | | | | | | PATHOLOGY | | + + + + + + | RED CELL | 4.35 (L) | 4.50 - 5.90 | [facility] | | | COUNT | | M/cu mm | DEPARTMENT | | | | | | OF | | | | | | PATHOLOGY | | + + + + + + | HEMOGLOBIN | 14.5 | 13.5 - 17.5 | [facility] | | | | | g/dL | DEPARTMENT | | | | | | OF | | | | | | PATHOLOGY | | + + + + + + | HEMATOCRIT | 41.2 | 41.0 - 53.0 % | [facility] | | | | | | DEPARTMENT | | | | | | OF | | | | | | PATHOLOGY | | + + + + + + | MCV | 94.6 | 80.0 - 96.0 fL | [facility] | | | | | | DEPARTMENT | | | | | | OF | | | | | | PATHOLOGY | | + + + + + + | MCHC | 35.3 | 33.4 - 35.5 | [facility] | | | | | g/dL | DEPARTMENT | | | | | | OF | | | | | | PATHOLOGY | | + + + + + + | RDW | 12.6 | 11.5 - 15.0 % | [facility] | | | | | | DEPARTMENT | | | | | | OF | | | | | | PATHOLOGY | | + + + + + + | PLATELET | 191 | 150 - 400 K/cu | [facility] | | | COUNT | | mm | DEPARTMENT | | | | | | OF | | | | | | PATHOLOGY | | + + + + + + + + | Specimen | + + | | + + + + + + + | Performing | Address | City/State/Zipcode | Phone Number | | Organization | | | | + + + + + | [facility] | [address] [facility] [address] | [place] [address] | | | PATHOLOGY | [address] | | | + + + + + | [facility] | [address] [facility] [address] | [place] [address] | | | PATHOLOGY | [address] | | | + + + + + APTT (ACT. PART. THROMBO TIME) (09/17/2005 3:45 PM PST) + + + + + + | Component | Value | Ref Range | Performed | Pathologist | | | | | At | Signature | + + + + + + | APTT | 28.0Comment: | 26.0 - 36.0 | [facility] | | | | APTT Therapeutic Range | seconds | DEPARTMENT | | | | | | OF | | | | | | PATHOLOGY | | | | (75-120)sec | | | | | | Heparin levels | | | | | | of 0.35-0.7 U/mL | | | | + + + + + + + + | Specimen | + + | | + + + + + + + | Performing | Address | City/State/Zipcode | Phone Number | | Organization | | | | + + + + + | [facility] DEPARTMENT OF | [address] | [place] [address] | | | PATHOLOGY | [address] | | | + + + + + | [facility] DEPARTMENT OF | [address] | [place] [address] | | | PATHOLOGY | [address] | | | + + + + + PROTHROMBIN TIME (09/17/2005 3:45 PM PST) + + + + + + | Component | Value | Ref Range | Performed | Pathologist | | | | | At | Signature | + + + + + + | INR | 1.06Comment: | 0.90 - 1.20 INR | [facility] | | | | PT INR Therapeutic | | DEPARTMENT | | | | ranges for full | | OF | | | | anticoagulation: | | PATHOLOGY | | | | INR for | | | | | | Venous Thromboembolism | | | | | | | | | | | | (2.0-3.0)INR | | | | | | INR for most | | | | | | patients with mech. | | | | | | valves (2.5-3.5)INR | | | | + + + + + + + + | Specimen | + + | | + + + + + + + | Performing | Address | City/State/Zipcode | Phone Number | | Organization | | | | + + + + + | [facility] DEPARTMENT OF | [facility] | [place] [address] | | | PATHOLOGY | [address] | | | + + + + + | [facility] DEPARTMENT OF | [address] | [place] [address] | | | PATHOLOGY | [address] | | | + + + + + documented in this encounter Visit Diagnoses Not on filedocumented in this encounter"
--- OUTSIDE RECORDS SUMMARY | ~2019-05-14 | XMS | Encounter Summary ---
Demographics + + + | Address | [address] | | | [place] [address] | + + + | Home Phone | | + + + | Preferred Language | Unknown | + + + | Marital Status | Single | + + + | Protestant Affiliation | BAP | + + + | Race | White | + + + | Ethnic Group | Not or | + + + Author + + + | Author | [facility] | + + + | Organization | [facility] [employer] [facility] | [...] Team Providers + +------+ + | Care Superintendent Landfill Operations Name | Role | Phone | + +------+ + | Ritesh England PA-C | PCP | | + +------+ + Reason for Visit + + + | Reason | Comments | + + + | Pre-op evaluation | | + + + Encounter Details +--------+ + + + + | Date | Type | Department | Care Team | Description | +--------+ + + + + | 09/03/ | Telephone-S | Preoperative | | Pre-op evaluation | | 2019 | cheduled | Medicine Clinic at | | | | | | [facility] Day | | | | | | Stay [address] [facility] | | | | | | [facility] | | | | | | Mailcode: [id number] | | | | | | [address] | | | | | | [address] [place], [place] | | | | | | [address] | | | | | | [phone] | | | +--------+ + + + [...] | | | | | [address] [place], | | | | | | [place] [address] | | | | | | [phone] | | | | | | | | +--------+---------+ + + + documented as of this encounter Visit Diagnoses Not on filedocumented in this encounter"
--- OUTSIDE RECORDS SUMMARY | ~2019-05-14 | XMS | Encounter Summary ---
Demographics + + + | Address | [address] | | | [place] [address] | + + + | Home Phone | | + + + | Preferred Language | Unknown | + + + | Marital Status | Single | + + + | Restoration Affiliation | BAP | + + + | Race | White | + + + | Ethnic Group | Not or | + + + Author + + + | Author | [facility] | + + + | Organization | [facility] | + + + | [...] Team Providers + +------+ + | Care Dry Cleaner Helper Name | Role | Phone | + +------+ + | Ritesh England PA-C | PCP | | + +------+ + Encounter Details +--------+ + + + + | Date | Type | Department | Care Team | Description | +--------+ + + + + | 12/24/ | Hospital | Diagnostic Imaging | Dayron Donato MD | | | 2018 | Encounter | Services [address] | | | | | [address] | [address] [place], | | | | | [place], [place] | [place] [address] | | | | | [address] | [phone] | | | | | | | [...] | | | | | Angelica Caal [place], | | | | | | [place] [address] | | | | | | [phone] | | | | | | | | +--------+---------+ + + + documented as of this encounter Procedures + +--------+ + + + | Procedure Name | Priori | Date/Time | Associated Diagnosis | Comments | | | ty | | | | + +--------+ + + + | OUTSIDE CHEST - READ | Routin | 12/24/2017 | Liver replaced by | Results for this | | REQUEST | e | 12:00 AM | transplant (HCC) | procedure are in the | | | | PDT | | results section. | + +--------+ + + + documented in this encounter Results OUTSIDE CHEST - READ REQUEST (12/24/2017 12:00 AM PDT) + + | Specimen | + + | | + + + + + | Narrative | Performed At | + + + | EXAM: Professional interpretation only of multiphasic CT of the | [facility] | | liver with and without intravenous contrast. Pelvis CT was also | RADIOLOGY VOICE | | performed. DATE OF INTERPRETATION REQUEST: 12/29/2017. DATE OF | RECOGNITION 2 | | IMAGE ACQUISITION: 12/24/2017 HISTORY: s/p liver transplant outside | | | films abd/pelvis show possible kidney mass. COMPARISON: 10/09/2015 | | | TECHNIQUE: Multiphasic CT of the liver with and without | | | intravenous contrast. Pelvis CT was also performed. Number of | | | images: [id number] FINDINGS: LOWER THORAX: Unremarkable. LIVER: | | | Postoperative changes of an orthotopic liver transplant are noted. No | | | focal liver lesions are noted. BILIARY: The gallbladder is | | | surgically absent. PANCREAS: Unremarkable. SPLEEN: No | | | splenomegaly. ADRENALS: Unremarkable. KIDNEYS/URETERS: Left renal | | | cortical 2.0 x 1.6 cm hypodensity is most consistent with a Bosniak 2 | | | cyst with a central septation as seen on prior ultrasound of | | | 11/17/2017. This is stable since 10/09/2015. PELVIC ORGANS: | | | Unremarkable. GI TRACT: Unremarkable. PERITONEUM: No free air or | | | fluid. LYMPH NODES: No lymphadenopathy. VESSELS: Unremarkable. | | | BONES AND SOFT TISSUES: Unremarkable. IMPRESSION: Status | | | post liver transplant without suspicious lesions. Bosniak 2 left | | | interpolar renal cyst. LI-RADS v2017 LI-RADS NC: Not | | | categorized due to image degradation or omission. LI-RADS M: Possible | | | malignancy, but not HCC-specific. LI-RADS TIV: Definitely tumor in | | | vein due to HCC or non-HCC malignancy. LI-RADS 5: Definitely HCC | | | (concordant with OPTN 5). LI-RADS 4: Probably HCC. LI-RADS 3: | | | Intermediate probability for malignancy. LI-RADS 2: Probably benign. | | | LI-RADS 1: Definitely benign. LI-RADS TR Non-evaluable: | | | Treated, but response not evaluable due to image omission or | | | degradation. LI-RADS TR Nonviable: Treated, probably or definitely | | | not viable. LI-RADS TR Equivocal: Treated, equivocally viable. | | | LI-RADS TR Viable: Treated, Probably or definitely viable. NOTE: | | | LI-RADS categories should be interpreted in the context of other | | | available data, such as biomarkers and the prior probability of | | | developing or having HCC. The imaging criteria for definite HCC are | | | concordant for the LI-RADS and OPTN systems. LI-RADS criteria and | | | documentation are available online at | | | [email or web address]. I | | | have personally reviewed the images and, if necessary, edited the | | | report. I agree with the report as now presented. Final | | | signature: Geena Gutierrez MD 12/30/2017 2:57 PM Preliminary: Geena Powell | | | MD Brenda | | + + + + + | Procedure Note | + + | Service Account, [employer] Res In Interface - 12/30/2017 2:58 PM PDT EXAM: | | Professional interpretation only of multiphasic CT of the liver with and without | | intravenous contrast. Pelvis CT was also performed. DATE OF INTERPRETATION REQUEST: | | 12/29/2017.DATE OF IMAGE ACQUISITION: 12/24/2017 HISTORY: s/p liver transplant outside | | films abd/pelvis show possible kidney mass. COMPARISON: 10/09/2015 TECHNIQUE: Multiphasic | | CT of the liver with and without intravenous contrast. Pelvis CT was also | | performed.Number of images: [id number] FINDINGS: LOWER THORAX: Unremarkable. LIVER: | | Postoperative changes of an orthotopic liver transplant are noted. No focal liver | | lesions are noted. BILIARY: The gallbladder is surgically absent.PANCREAS: Unremarkable. | | SPLEEN: No splenomegaly.ADRENALS: Unremarkable.KIDNEYS/URETERS: Left renal cortical 2.0 | | x 1.6 cm hypodensity is most consistent with a Bosniak 2 cyst with a central septation | | as seen on prior ultrasound of 11/17/2017. This is stable since 10/09/2015.PELVIC ORGANS: | | Unremarkable.GI TRACT: Unremarkable.PERITONEUM: No free air or fluid. LYMPH NODES: No | | lymphadenopathy. VESSELS: Unremarkable. BONES AND SOFT TISSUES: Unremarkable. | | IMPRESSION: Status post liver transplant without suspicious lesions. Bosniak 2 left | | interpolar renal cyst. LI-RADS [id number] NC: Not categorized due to image | | degradation or omission.LI-RADS M: Possible malignancy, but not HCC-specific.LI-RADS | | TIV: Definitely tumor in vein due to HCC or non-HCC malignancy.LI-RADS 5: Definitely HCC | | (concordant with OPTN 5).LI-RADS 4: Probably HCC.LI-RADS 3: Intermediate probability | | for malignancy.LI-RADS 2: Probably benign.LI-RADS 1: Definitely benign. LI-RADS TR | | Non-evaluable: Treated, but response not evaluable due to image omission or | | degradation.LI-RADS TR Nonviable: Treated, probably or definitely not viable.LI-RADS TR | | Equivocal: Treated, equivocally viable.LI-RADS TR Viable: Treated, Probably or | | definitely viable. NOTE: LI-RADS categories should be interpreted in the context of | | other available data, such as biomarkers and the prior probability of developing or | | having HCC. The imaging criteria for definite HCC are concordant for the LI-RADS and | | OPTN systems. LI-RADS criteria and documentation are available online at | | [email or web address]. I have personally reviewed | | the images and, if necessary, edited the report. I agree with the report as now | | presented. Final signature: Geena Gutierrez MD 12/30/2017 2:57 PM Preliminary: Geena Powell | | MD Brenda | | | |BONES AND SOFT TISSUES: Unremarkable. | | | |IMPRESSION: | | | |Status post liver transplant without suspicious lesions. | | | |Bosniak 2 left interpolar renal cyst. | | | | | |LI-RADS v2017 | |LI-RADS NC: Not categorized due to image degradation or omission. | |LI-RADS M: Possible malignancy, but not HCC-specific. | |LI-RADS TIV: Definitely tumor in vein due to HCC or non-HCC malignancy. | |LI-RADS 5: Definitely HCC (concordant with OPTN 5). | |LI-RADS 4: Probably HCC. | |LI-RADS 3: Intermediate probability for malignancy. | |LI-RADS 2: Probably benign. | |LI-RADS 1: Definitely benign. | | | |LI-RADS TR Non-evaluable: Treated, but response not evaluable due to image omission or deg radation. | |LI-RADS TR Nonviable: Treated, probably or definitely not viable. | |LI-RADS TR Equivocal: Treated, equivocally viable. | |LI-RADS TR Viable: Treated, Probably or definitely viable. | | | |NOTE: LI-RADS categories should be interpreted in the context of other available data, such as biomarkers and the prior probability of developing or having HCC. The imaging criteria for definite HCC are concordant for | |the LI-RADS and OPTN systems. LI-RADS criteria and documentation are available online at w [email or web address]. | | | |I have personally reviewed the images and, if necessary, edited the report. I agree with th e report as now presented. | | | |Final signature: Geena Gutierrez MD 12/30/2017 2:57 PM | |Preliminary: Geena Gutierrez MD | + + + +---------+ + + [...] + | Liver replaced by transplant (HCC) Liver replaced by transplant | + + documented in this encounter"
--- OUTSIDE RECORDS SUMMARY | ~2019-05-14 | XMS | Encounter Summary ---
Demographics + + + | Address | [address] | | | [place] [address] | + + + | Home Phone | | + + + | Preferred Language | Unknown | + + + | Marital Status | Single | + + + | Voodoo Affiliation | BAP | + + + | Race | White | + + + | Ethnic Group | Not or | + + + Author + + + | Author | Pending Sale To [facility] | + + + | Organization | Pending Sale To [facility] | + + + | [...] Team Providers + +------+ + | Care Ldr Nurse Name | Role | Phone | + +------+ + | Ritesh England PA-C | PCP | | + +------+ + Reason for Visit + + + | Reason | Comments | + + + | Head pain | | + + + | Neck pain | | + + + | Pain in right leg | | + + + | Knee pain | | + + + | Ankle pain | | + + + | Hip pain | | + + + Consultation (Routine) +--------+ + + + + + | Status | Reason | Specialty | Diagnoses / | Referred By | Referred To | | | | | Procedures | Contact | Contact | +--------+ + + + + + | Closed | Other | Pain | Diagnoses | Rito | Moshe Chh1 | | | Other | Management | Other | Maranda Burciaga MD | [address] | | | | | chronic pain | [address] | | | | | Procedures | [address] | Mailcode: | | | | | CONSULT TO | [address] | [facility] | | | | | PAIN | [facility] [place] | for Health | | | | | MANAGEMENT | [address] | and Healing, | | | | | | Phone: | Building | | | | | | [phone] | 15th Floor | | | | | | Fax: | [facility] [place] | | | | | | [phone] | [address] | | | | | | | Phone: | | | | | | | [phone] | | | | | | | Fax: | | | | | | | [phone] | +--------+ + + + + + Encounter Details +--------+---------+ + + + | Date | Type | Department | Care Team | Description | +--------+---------+ + + + | 02/16/ | Office | [facility] | Amparo, | Cancer related pain | | 2018 | Visit | Pain Center at | MD Brenda [address] | (Primary Dx) | | | | [facility] | [address] [place], | | | | | [address] | [place] [address] | | | | | Mailcode: [id number] | [phone] | | | | | [facility] | | | | | | and Healing, | | | | | | | | | | | | [place], [place] | | | | | | [address] | | | | | | [phone] | | | +--------+---------+ + + + [...] + + + | Blood Pressure | 176/101 | 02/16/2018 3:38 PM | | | | | PDT | | + + + + + | Pulse | 107 | 02/16/2018 3:38 PM | | | | | PDT | | + + + + + | Temperature | - | - | | + + + + + | Respiratory Rate | 16 | 02/16/2018 3:38 PM | | | | | PDT | | + + + + + | Oxygen Saturation | 99% | 02/16/2018 3:38 PM | | | | | PDT | | + + + + + | Inhaled Oxygen | - | - | | | Concentration | | | | + + + + + | Weight | 57.9 kg (127 lb 9.6 | 02/16/2018 3:38 PM | | | | oz) | PDT | | + + + + + | Height | 172.7 cm (5' 8") | 02/16/2018 3:38 PM | | | | | PDT | | + + + + + | Body Mass Index | 19.4 | 02/16/2018 3:38 PM | | | | | PDT [...] of this encounter Patient Instructions Patient Instructions Shruthi Monet - 02/16/2018 2:10 PM PDTButch, It was good to meet you. Thank you for taking the time to see [facility] in [facility] today. We look forward to working with you in the future. As a reminder, this clini c generally does not prescribe or dispense medications. We will send a copy of our notes, i ncluding detailed recommendations, to your primary care provider (PCP). Any prescriptions w ill need to come from that provider. Please contact their office within the next few days to make an appointment to get started with our recommendations. Below is a short summary of w hat we discussed today for your reference. - To reschedule for the liver clinic, call Hortensia Etienne at [phone]. - I will reach out to Ritesh England PA-C and Shlomo Roach MD to determine what their goals are and what guidance I may help provide. Electronically signed by Shruthi Monet at 018 3:56 PM PDT documented in this encounter Progress Notes Brenda Christensen MD - 02/16/2018 2:10 PM PDTI have reviewed, edited and verified the ifeoma minaya scribed note of this patient's visit as recorded by Shruthi Monet. Electronically sanjuanita d by Brenda Christensen MD at 02/17/2018 6:15 PM PDTMilvia Molina RN - 02/16/2018 2:10 PM PDT Review of Systems Constitutional: Positive for malaise/fatigue and weight loss. HENT: Positive for headaches and neck pain. 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 Right eye does not close all the way Respiratory: Positive for cough and shortness of breath. Cardiovascular: HTN Gastrointestinal: Positive for abdominal pain (liver transplant 2011) and constipation. Musculoskeletal: Positive for back pain, falls, joint pain and neck pain. Broke hip last month falling Skin: History of melanoma eczema Neurological: Positive for tingling. Psychiatric/Behavioral: The patient is nervous/anxious and has insomnia. Physical Exam Ortho Exam Neurologic Exam hBrenda marroquin MD - 02/16/2018 2:10 PM PDTFormatting of this note might be different from t he original. Mr. Michaels was 1 hour and 47 minutes late to his appointment, so we had limited time togethe r today. Date: 02/16/2018 was referred for pain management consultation by Maranda Veras MD [address] [place] [address] Reason for consult: Chief Complaint Patient presents with Head pain Neck pain Pain in right leg Knee pain Ankle pain Hip pain History of Present Illness: Simeon Michaels Jr. is a 58 year old male with a 14 year his tory of throbbing pain located in the right side of the head, neck, hip, knee, and ankle. Hi s pain is made worse by bending backward, climbing stairs, cold, cough/sneeze, exercise, lig ht touch, looking down, looking up, lying down, sexual activity, stressful situations, walki ng and work. His pain is improved by ice, medications, physical therapy and relaxation. He presents today with right-sided head, neck, hip, knee, and ankle pain. He states that hi s most bothersome pain areas are in the right side of his head and neck and have persisted f rom his history of Mohs treatments between the [facility] and [facility]. He describes his p ain as constant, throbbing, and cold. He is unable to blink his right eye which causes limit s his ability to produce tears. He carries around eye drops to relieve associated eye drynes s. He states that when he tries to sleep, the pain will often wake him up. 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 At this time, he reports that this his right knee and ankle hurt more than the hip which is s/p open reduction and internal fixation of right femur intertrochanteric fract ure with Bernard Lawrence MD (01/14/2018). He notes that his right knee and ankle pain comes an d goes based on his activity level throughout the day. To manage his pain, he will often apply an ice pack to his painful areas stating that he do es not apply this to his face due to sensitivity to touch. As a result of his fear of needle s, he has not tried acupuncture. He notes that water from the shower will also worsen the pa in to his face. He reports that his "face stuff" has been going on since 2003. He was previo usly engaging in physical therapy at the intermediate he was staying in after his hip surger y, no longer having to reside in the intermediate. He continues to engage in physical therap y noting that his right hip is doing well, but he doesn't think that physical therapy "will do much for his head pain". When he had the liver transplant, he states that "it resolved the pain," however because of this, he is unable to take any medications with aspirin. He has been taking only oxycodone 5 mg to manage his pain since his right hip surgery in January 2018. He previously took oxycodo ne in 2013 for the first year he spent at the [facility]. He notes that he "had a coup le incidents here and there" when he needed extra oxycodone to better control his pain flare s which was prescribed by his primary care provider. He clarifies that he is not currently o n oxycodone. He presents today stating that he was recommended by his primary care provider, Ritesh England PA-C and Shlomo Roach MD (Otolaryngology) to re-establish care in a pain man agement program, previously with the [facility], as they suspect that he will require ongoing care. He reports understanding that he will be unable to receive chronic opioid prescriptions fro m the clinic, clarifying that he is only interested in getting prescriptions to "help him ge t over the hump after surgeries." He notes having two upcoming Mohs treatments with dates to be determined. At this time, he reports that his dermatologists are only able to provide hi m with Valium for the surgery and is unsure whether his primary care provider is comfortable to continue providing short-term oxycodone prescriptions. Other than his primary care provider, he notes that all of his medical care is established at [facility]. Of note, he reports a history of high anxiety. 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 SNLB was negative. Pt was under the impression that this was a melano ma, but per pathology and procedure reports from -09/2005, this was in fact SCC. - Last MRI face w/ no evidence of recurrence 01/2016 - Has suffered from chronic pain associated with the right side of his face s/p surgery in 2005. He was followed by Pain Management at [facility] for many years. Skin cancer treatments previously performed at the [facility]: BCC, L posterior neck s/p Mohs 11/2013 SCC, L superior arm s/p Mohs 11/2013 SCC, L postauricular neck/scalp 11/2013 SCC, L inferior jawline s/p Mohs 11/2013 SCC, R anterior thigh s/p Mohs 11/2013 SCC, mid inferior sternal chest 10/2013- untreated or incompletely treated (per chart review , pt was prescribed efudex to use prior to Mohs surgery, but did not end up having Mohs surg cristopher performed) SCC, mid superior sternal chest 10/2013- Untreated or incompletely treated (per chart navya freeman, pt was prescribed efudex to use prior to Mohs surgery, but did not end up having Mohs sarah ramirez performed) SCCIS, R lateral lower eyelid s/p Mohs 10/2012 SCCIS, L upper chest s/p Mohs 10/2012 BCC, L lateral mid forearm s/p excision 05/2012 SCC, Central upper chest s/p C&D 05/2012 SCC, Central upper chest s/p Mohs 04/2012 He feels that the most effective treatments include: diazepam and oxycodone. lives in a single family home in [place], [place]. 's recreational activities include: horseback riding. As a result of his pain, notes multiple changes in his life, including difficulty performing chores, drive his pick-up, and engage in previously en joyable activities. does not have specific goals for today's appointment. TELETYPE CLERK Brief Pain Inventory: (ten= worst possible pain or complete interference) Right Now: 8 Least in 24 hours: 4 Worst in 24 hours: 10 Average: 6 % Relief (med/treat): 50 General Activity: 10 Mood: 10 Walking Ability: 10 Normal Work: 10 Relations with Others: 10 Enjoyment of Life: 10 Sexual Activity: 10 Sleep: 10 PHQ-4 02/16/2018 Evans: Not at all = 0; Several days = 1; More than half the days = 2; Nearly every day = 3 Feeling nervous, anxious, or on edge? 3 Not being able to stop or control worrying? 3 Little interest or pleasure in doing things? 3 Feeling down, depressed, or hopeless? 3 Total Score: 12 Mr. Michaels has depression, but denies risk of self-harm. I reviewed the patient questionnaire for this appointment. Past Medical History: Diagnosis Date Abdominal pain [...] Melanoma of face (HCC) 2005 Excision in 2005; reconstruction in 2013 NICM (nonischemic cardiomyopathy) (HCC) EF 35-40% Other chronic pain Pericardial effusion 08/2016 Ptosis of right eyelid SCCA (squamous cell carcinoma) of skin 09/17/2005 Vitamin D deficiency Past Surgical History Procedure Laterality Date Liver transplant 2011 At the [facility] Skin cancer excision 2004 MOH's X3 Jaw surgery Ankle fracture surgery Colonoscopy Family History Problem Relation Diabetes Mother Cancer Father skin cancer Melanoma Father Diabetes Brother History Alcohol Use No History Drug Use No Social History Social History Narrative Disabled - receiving Allergies Allergen Reactions Morphine Nausea Current Medication List Name Sig ALBUTEROL SULFATE HFA 90 MCG/ACTUATION AEROSOL INHALER Inhale 1-2 puffs by mouth every six hours as needed. Indications: Bronchospastic Pulmonary Disease AMLODIPINE 10 MG TABLET Take 1 tablet by mouth once daily. BUSPIRONE 15 MG TABLET Take 15 mg by mouth two times daily. CALCIUM CARBONATE 200 MG CALCIUM (500 MG) CHEWABLE TAB (MG DOSING UPDATE) Chew and swallow 1 tablet every two hours as needed. CALCIUM CARBONATE 500 MG (1,250 MG)-VITAMIN D3 200 UNIT TABLET Take 1 tablet by mouth two t imes daily. CARVEDILOL 12.5 MG TABLET Take 1 tablet by mouth two times daily with meals. Administer wit h food. FUROSEMIDE 20 MG TABLET TK 1/2 T PO THREE TIMES A WEEK MAGNESIUM CITRATE ORAL SOLUTION Take 296 mL by mouth once daily as needed (second for const ipation). MELATONIN 3 MG TABLET Take 1 tablet by mouth once daily at bedtime. MULTIVITAMIN WITH MINERALS TABLET Take 1 tablet by mouth once daily. MYCOPHENOLATE MOFETIL 250 MG CAPSULE Take 2 capsules by mouth two times daily. Take with fo od. Indications: Prevention of Liver Transplant Rejection OXYCODONE 5 MG TABLET Take 1-2 tablets by mouth every four hours as needed for moderate elsy n. POLYETHYLENE GLYCOL 3350 17 GRAM ORAL POWDER PACKET Mix 1 packet and take orally two times daily. POTASSIUM CHLORIDE ER 20 MEQ TABLET,EXTENDED RELEASE(PART/CRYST) Take 1 tablet by mouth onc e daily. PROCHLORPERAZINE MALEATE 5 MG TABLET Take 1-2 tablets by mouth every six hours as needed. M ax dose: 40 mg/day SENNOSIDES 8.6 MG-DOCUSATE SODIUM 50 MG TABLET Take 2 tablets by mouth two times daily. SIROLIMUS 1 MG TABLET Take 3 tablets by mouth once daily in the morning. Indications: s/p l iver transplant Radiology/Diagnostic Tests: ABDOMEN 1 VIEW 01/15/2018 History: Right lower quadrant abdominal pain Comparison: CT 10/09/2015 FINDINGS/IMPRESSION: Multiple loops of gas-filled, predominantly large bowel loops are present throughout the ab domen, likely representing ileus. There is a large right colonic stool burden. Surgical clip s are present within the right upper quadrant. A right hip dynamic screw is partially visual ized, as is a right intertrochanteric femoral fracture which appears in near anatomic alignm ent on this limited evaluation. FEMUR 2 VIEWS RIGHT 01/13/2018 HISTORY: pre op. COMPARISON: 01/12/2018 FINDINGS: Redemonstration [...] primarily intertrochanteric m inimally displaced femoral fracture. Most Recent Labs: CBC Lab Results Component Value Date WBC 5.03 01/18/2018 HB 11.7 01/18/2018 HCT 34.5 01/18/2018 PLT 129 01/18/2018 MCV 89.4 01/18/2018 RDW 42.8 01/18/2018 CMP Lab Results Component Value Date NA 133 01/18/2018 K 3.9 01/18/2018 CL 94 01/18/2018 BICARB 34 01/18/2018 BUN 23 01/18/2018 CR 0.97 01/18/2018 GLU 110 01/18/2018 CA 8.8 01/18/2018 AST 93 01/18/2018 ALT 74 01/18/2018 AP 74 01/18/2018 TBILI 0.4 01/18/2018 TP 6.6 01/18/2018 ALB 2.6 01/18/2018 DIRBILI 0.10 12/24/2017 HBA1C Lab Results Component Value Date A1C 5.5 04/21/2017 PT/INR Lab Results Component Value Date INRPT 1.07 01/15/2018 Review of Systems Constitutional: Positive for malaise/fatigue and weight loss. HENT: Right ear auriculectomy Dysphagia Eyes: Positive for blurred vision. Right eye does not close all the way Respiratory: Positive for cough and shortness of breath. Cardiovascular: High blood pressure Gastrointestinal: Positive for abdominal pain (liver transplant 2011) and constipation. Genitourinary: Negative. Musculoskeletal: Positive for back pain, falls, joint pain and neck pain. Broke right hip last month due to fall Skin: History of melanoma Eczema Neurological: Positive for tingling and headaches. Endo/Heme/Allergies: Negative. Psychiatric/Behavioral: The patient is nervous/anxious and has insomnia. BP 176/101 | Pulse 107 | RR 16 | Ht 1.727 m (5' 8") | Wt 57.9 kg (127 lb 9.6 oz) | SpO2 99% | BMI 19.4 kg/(m^2) Physical Exam Constitutional: He is oriented to person, place, and time. No distress. HENT: Head: Normocephalic and atraumatic. Right Ear: External ear normal. Left Ear: External ear normal. Nose: Nose normal. Mouth/Throat: Oropharynx is clear and moist. Scaling along the right side of the face Absent right ear Eyes: Conjunctivae and EOM are normal. Right eye exhibits no discharge. Left eye exhibits n o discharge. Right eye ptosis Neck: No tracheal deviation present. Cardiovascular: Normal rate. Pulmonary/Chest: Effort normal. No stridor. No respiratory distress. Abdominal: He exhibits no distension. Neurological: He is alert and oriented to person, place, and time. Skin: Skin is warm and dry. He is not diaphoretic. No erythema. Psychiatric: Mood, memory, affect and judgment normal. Nursing note and vitals reviewed. Neurologic Exam Mental Status Oriented to person, place, and time. Cranial Nerves CN III, IV, Extraocular motions are normal. Ortho Exam Patient Active Problem List Diagnosis Malignant neoplasm of cheek (HCC) Mechanical ectropion Liver transplant recipient (HCC) Personal history of liver cancer Squamous cell carcinoma of skin of ear Hypertension Acute congestive heart failure (HCC) Bilateral pleural effusion Chronic pain Renal mass Closed fracture of trochanter of right femur (HCC) Chronic systolic heart failure (HCC) Methamphetamine use disorder, moderate (HCC) Abdominal aortic aneurysm (AAA) without rupture (HCC) Visit Diagnoses: G89.3 Cancer related pain For today's evaluation, I have included my personal review of Mr. Michaels's history and physi jc examination. I also used the following components in my medical decision making: Laboratory studies reviewed. Radiology Reports reviewed. Review and summary of old medical records (source: [facility]), as summarized in the body of the note. Impression: Mr. Simeon Michaels Jr. is a 58 y.o. male with a history of multiple cutaneous squamous cell carcinomas (SCCs) with chronic cutaneous pain s/p liver transplant (2011) and multiple Mohs treatments. He presents today with reported right-sided head, neck, hip, knee, and ankl e pain with his most bothersome pain in the head and neck. Mr. Michaels was 1 hour and 47 minut es late to his appointment, so we had limited time together. His goals for the clinic visit today are unclear. He states that he presents to establish ongoing pain management but leni baxter interest in only short-courses of post-operative opioid prescriptions to help him get t hrough his post- surgery pain. As a non-prescribing clinic, I am unable to provide him with these prescriptions and typically these prescriptions are provided by the surgical team. To determine how I can best assist in Mr. Simeon Michaels Jr.'s medical care moving forward, I will have our Cancer Cook Station, Nela Wyatt RN reach out to Ritesh England PA-C and Shlomo Roach MD, his referring providers to understand their goals of care. In terms of his opioids, given his chronic condition, that per chart review does not seem t o be life-threatening, I do not think he is an appropriate candidate for chronic opioid ther apy but the patient clarifies that this is not his goal. I do, however, think that a 3-7 day prescription for opioids is reasonable post-surgery. The patient states that he lives [address] [place] [place] so as such he is not a great candidate for our complementary therapies but if he has same day appointments at [facility] he is always welcome to schedule any of our complementary the rapies, including acupressure, massage, chiropractic, physical therapy, rolfing, nutrition c ounseling and pain psychology. The patient understands this rationale and is amenable to the plan. Recommendation/Plan: - Our Cancer Cook Station, Nela Wyatt RN will reach out to FLAKITO Chavez and Shlomo Roach MD to clarify goals of care - Patient may follow up as needed I, Shruthi Tran, am functioning as a scribe for MD Brenda Ramirez MD [facility] 15TH FLOOR [address] [facility], 4th Floor Mail Code: CH4P [place], [place] [id number] Mr. Michaels was 1 hour and 47 minutes late to his appointment, so we had limited time togethe r today. documented in this encounter Plan of Treatment +--------+---------+ + + + | Date | Type | Specialty | Care Team | Description | +--------+---------+ + + + | 06/17/ | Office | Otolaryngology | Shlomo Roach MD | | | 2019 | Visit | | [address] | | | | | | [place], | | | | | | [place] [address] | | | | | | [phone] | | | | | | | | +--------+---------+ + + + documented as of this encounter Visit Diagnoses + + | Diagnosis | + + | Cancer related pain - Primary Neoplasm related pain (acute) (chronic) | + + documented in this encounter
--- OUTSIDE RECORDS SUMMARY | ~2019-05-14 | XMS | Encounter Summary ---
Demographics + + + | Address | [address] | | | [place] [address] | + + + | Home Phone [...] | Author | [facility] [employer] [facility] | + + + | Organization | [facility] | + + + | Address [...] Team Providers + +------+ + | Care Internal Medicine Nurse Name | Role | Phone | + +------+ + | Sylvester Scherer DO | PCP | | + +------+ + Reason for Visit + + + | Reason | Comments | + + + | Outside Records | | | Received | | + + + Encounter Details +--------+ + + + + | Date | Type | Department | Care Team | Description | +--------+ + + + + | 12/12/ | Abstract | Transplant | Valente Welch | Outside Records | | 2014 | | Coordinators [address] | MD [address]iel[facility] [address] | Received | | | | [address] [facility] | [address] | | | | | [address] [place], [place] | [facility] [place] [address] | | | | | [address] | [phone] | | | | | [phone] | | | +--------+ + + + [...] + + documented as of this encounter Xenia Nogueira - 12/12/2014 8:59 AM PDTLTX Office visit at [facility] attached to encounter documented in is encounter Plan of Treatment +--------+---------+ + + + | Date | Type | Specialty | Care Team | Description | +--------+---------+ + + + | 06/17/ | Office | Otolaryngology | Shlomo Roach MD | | | 2019 | Visit | | [address] | | | | | | [place] | | | | | | [place] [address] | | | | | | [phone] | | | | | | | | +--------+---------+ + + + documented as of this encounter Visit Diagnoses Not on filedocumented in this encounter"
--- OUTSIDE RECORDS SUMMARY | ~2019-05-14 | XMS | Encounter Summary ---
Demographics + + + | Address | [address] | | | [place] [address] | + + + | Home Phone [...] Author + + + | Author | [email or web address] [facility] | + + + | Organization | [facility] | + + + [...] Team Providers + +------+ + | Care Amusement Ride Inspector Name | Role | Phone | + +------+ + | Sylvester Scheerr DO | PCP | | + +------+ + Encounter Details +--------+ + + + + | Date | Type | Department | Care Team | Description | +--------+ + + + + | 07/31/ | Telephone | Transplant | Jason Harden | | | 2014 | | Coordinators [address] | [place], [place] | | | | | [address] | [address] | | | | | [address] [place], [place] | | | | | | [address] | | | | | | [phone] | | | +--------+ + + + [...] | | | | | | [place] [address] | | | | | | [phone] | | | | | | | | +--------+---------+ + + + documented as of this encounter Visit Diagnoses Not on filedocumented in this encounter"
--- OUTSIDE RECORDS SUMMARY | ~2019-05-14 | XMS | Encounter Summary ---
Demographics + + + | Address | [address] | | | [place] [address] | + + + | Home Phone [...] + + | Author | [facility] | + + + | Organization | [facility] | + + + [...] Team Providers + +------+ + | Care Bakery Technician Name | Role | Phone | + +------+ + | Ritesh England PA-C | PCP | | + +------+ + Encounter Details +--------+ + + + + | Date | Type | Department | Care Team | Description | +--------+ + + + + | 09/11/ | Real Estate Financial Analyst | Liver Transplant | Daryon Donato MD | | | 2019 | | at [facility] 2nd Floor | [address] | | | | | [address] | [address] [place], | | | | | [place], | [place] [address] | | | | | [place] [address] | [phone] | | | | | [phone] | | | +--------+ + + + [...] | | | | | [place], | | | | | | [place] [address] | | | | | | [phone] | | | | | | | | +--------+---------+ + + + documented as of this encounter Visit Diagnoses Not on filedocumented in this encounter"
--- OUTSIDE RECORDS SUMMARY | ~2019-05-14 | XMS | Encounter Summary ---
Demographics + + + | Address | [address] | | | [place] [address] | + + + | Home Phone [...] + + + | Author | [facility] [employer] [facility] | + + + | Organization | [facility] [employer] [facility] | + + + [...] Team Providers + +------+ + | Care Senior Programmer Name | Role | Phone | + [...] Closed | | Liver | Diagnoses | [place], | [facility] Trans | | | | Transplant | Liver | DO Sylvester | Coord Liver | | | | | transplant | [facility] | [address] | | | | | [facility] | Hospital | [facility] | | | | | Procedures | Internal | [address] [place], | | | | | [place] | Medicin | [place] | | | | | OFFICE/OUTPT | [address] | [address] | | | | | | [address] | Phone: | | | | | VISIT,EST,LE | [place], | [phone] | | | | | [place] | [place] [address] | Fax: | | | | | | Phone: | [phone] | | | | | | [phone] | | | | | | | Fax: | | | | | | | [phone] | | +--------+--------+ + + + + Encounter Details +--------+---------+ + + + | Date | Type | Department | Care Team | Description | +--------+---------+ + + + | 11/11/ | Office | Liver Transplant | Valente Welch | History of liver | | 2016 | Visit | at [facility] 2nd Floor | MD Kiel,MPH [address] | transplant (HCC) | | | | [address] | [address] | (Primary Dx) | | | | [address] [place], | [place] [address] | | | | | [place] [address] | [phone] | | | | | [phone] | | | +--------+---------+ + + + [...] + + + | Blood Pressure | 185/119 | 11/11/2016 10:53 AM | | | | | PDT | | + + + + + | Pulse | 91 | 11/11/2016 10:53 AM | | | | | PDT | | + + + + + | Temperature | - | - | | + + + + + | Respiratory Rate | 15 | 11/11/2016 10:44 AM | | | | | PDT | | + + + + + | Oxygen Saturation | 98% | 11/11/2016 10:44 AM | | | | | PDT | | + + + + + | Inhaled Oxygen | - | - | | | Concentration | | | | + + + + + | Weight | 65.3 kg (144 lb) | 11/11/2016 10:44 AM | | | | | PDT | | + + + + + | Height | - | - | | + + + + + | Body Mass Index | - | - | | + + + + + documented in this encounter Progress Notes Valente Weclh MD,MPH - 11/11/2016 10:40 AM PDTFormatting of this note might be differ ent from the original. Liver Transplant Clinic: Post-Transplant Follow-Up Note 11/11/2016 CC/ID: Follow-up care for transplanted liver and management of immunosuppression. PCP: Sylvester Scherer DO INTERVAL HISTORY: He returns for a follow-up visit after having last been seen in 06/2015. He misses a few do ses of immunosuppression occasionally and reports having missed a whole month of medication last year due to 'not being able to get the pills.' He also reports having CHF since his las t visit, and has been started on Lasix. He still has a lot of LAMB and denies ankle swelling or chest pain. He plans to see dermatology soon for follow-up of skin cancers. Transplant Problem List: (Based on detailed review of medical records and endoscopy reports /images, and supplemented by patient history. Liver imaging studies were independently revie wed with an attending radiologist) 1. 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 2. Liver transplantation performed 09/09/11 at [facility]. 2.1. Immunosuppression: sirolimus 2 mg daily (trough goal ~6) and CellCept 500 BID 2.2. Complications: No known complications such as biliary anastomoses, thrombosis, or rej ection 2.3. Biopsies: 2.3.1. Explant: G2S4 HCV cirrhosis, >95% necrotic 5.0 cm moderately differentiated HCC wi th microvascular invasion. 2.3.2. Biopsy 09/2013: G1S1 HCV with mild steatosis 2.4. CT 09/2013: wedge-shaped perfusion abnormality in right lobe, no masses 2.5. Prophylaxis: CMV D+/R- 3. Secondary Diagnoses: 3.1. Hypertension 3.2. Malignant melanoma of face/right ear, resected in 2004, reconstructed in 2013 3.3. Chronic abdominal and facial pain on oxycodone 10 QID 3.4. Pre-diabetes 3.5. SCC 3.6. CHF 4. Preventive care 4.1. Immunizations: Have not discussed HAV, HBV, influenza, Pneumovax 4.2. Osteoporosis: Have not discussed vitamin D and calcium supplementation, DEXA 4.3. Colon cancer screenin. Psychosocial: Quit tobacco at age 54, previously 2 ppd, now smoking again and also vapes . Quit alcohol in 10/2009 and denies any use since then. No MJ. Moved from [place] to [facility], [place] in 11/2014 [place]. Outpatient Medications: Current Medication List Name Sig AMLODIPINE 5 MG TABLET DIAZEPAM 2 MG TABLET Take by mouth. FLUOXETINE 10 MG CAPSULE Take 10 mg by mouth once daily. FUROSEMIDE 20 MG TABLET GABAPENTIN 100 MG CAPSULE Take 1 capsule by mouth every six hours. GABAPENTIN 300 MG CAPSULE TK ONE C PO QD MAGNESIUM OXIDE 400 MG CAPSULE (MG DOSING UPDATE) Take 2 capsules by mouth two times daily. METOPROLOL SUCCINATE ER 100 MG TABLET,EXTENDED RELEASE 24 HR TK 1 T PO QD MYCOPHENOLATE MOFETIL 250 MG CAPSULE Take 2 capsules by mouth two times daily. Take with fo od. OXYCODONE 5 MG TABLET SIROLIMUS 1 MG TABLET Take 2 tablets by mouth once daily in the morning. Allergies Allergen Reactions Morphine Nausea EXAM VS: BP 185/119 | Pulse 91 | RR 15 | Wt 65.3 kg (144 lb) | SpO2 98% GEN: Pleasant male in NAD, comfortable appearing. HEENT: anicteric, PERRL. EXT: no clubbing or peripheral edema. SKIN: No jaundice or rashes present. NEURO: No asterixis. Interval Labs/Imaging: Outside labs from 08/2016 reviewed ASSESSMENT Mr. Simeon Michaels Jr. is a 56 y.o. male with history of liver transplant in 2011 for H CV cirrhosis and HCC, who presents for management of post-transplant care. He is very intere sted in pursuing HCV treatment. Assuming he demonstrates compliance to recommended medical c are, we are willing to attempt that. He agreed to undergo all recommended lab testing, to ta ke all medications as instructed and to follow-up in clinic at recommended intervals, and I believe he is an appropriate candidate for treatment based on this agreement. The preferred regimen for genotype 3 HCV infection without cirrhosis would be a 12-week course of Epclusa alone, per AASLD-IDSA guidelines. I also strongly encouraged him to see dermatology for foll ow-up of his skin cancer and he stated that he will do so. RECOMMENDATIONS: 1) Labs today - CBC, CMP, INR, biliD, HCV RNA, HCV genotype, HBcAb, HIV, sirolimus level, urine ETG 2) Plan HCV treatment likely with Epclusa alone x 12 weeks. 3) Dermatology referral, per PCP 4) Continue present immune suppression 5) Return to transplant clinic in 1 year Valente Welch M.D., M.P.H. Software Project Managerinformation and referral director [facility] Division of Gastroenterology & Hepatology I spent 26 minutes with the patient and over 50% was in counseling about the patient's diag nosis and treatment options for post-liver transplant management. Display Progress Note in [employer]: Yes documented in this encounter Plan of Treatment +--------+---------+ + + + | Date | Type | Specialty | Care Team | Description | +--------+---------+ + + + | 06/17/ | Office | Otolaryngology | Shlomo Roach MD | | | 2019 | Visit | | [address] | | | | | | [place], | | | | | | [place] [address] | | | | | | [phone] | | | | | | | | +--------+---------+ + + + + +------+--------+ + + | Name | Type | Priori | Associated Diagnoses | Order Schedule | | | | ty | | | + +------+--------+ + + | CBC, WITH | Lab | Routin | History of liver | Expected: 11/11/2016 | | DIFFERENTIAL | | e | transplant (HCC) | (Approximate), | | | | | | Expires: 12/12/2017 | + +------+--------+ + + | COMPLETE METABOLIC | Lab | Routin | History of liver | Expected: 11/11/2016 | | SET | | e | transplant (HCC) | (Approximate), | | (NA,K,CL,CO2,BUN,CRE | | | | Expires: 12/12/2017 | | AT,GLUC,CA,AST,ALT,B | | | | | | YAYO TOTAL,ALK | | | | | | PHOS,ALB,PROT TOTAL) | | | | | + +------+--------+ + + | BILIRUBIN DIRECT | Lab | Routin | History of liver | Expected: 11/11/2016 | | | | e | transplant (HCC) | (Approximate), | | | | | | Expires: 12/12/2017 | + +------+--------+ + + | INR | Lab | Routin | History of liver | Expected: 11/11/2016 | | | | e | transplant (HCC) | (Approximate), | | | | | | Expires: 12/12/2017 | + +------+--------+ + + | HEPATITIS C | Lab | Routin | History of liver | Expected: 11/11/2016 | | GENOTYPING, PLASMA | | e | transplant (HCC) | (Approximate), | | | | | | Expires: 12/12/2017 | + +------+--------+ + + | HEPATITIS C | Lab | Routin | History of liver | Expected: 11/11/2016 | | QUANTITATIVE, PLASMA | | e | transplant (HCC) | (Approximate), | | | | | | Expires: 12/12/2017 | + +------+--------+ + + | HEPATITIS B CORE AB, | Lab | Routin | History of liver | Expected: 11/11/2016 | | SERUM | | e | transplant (HCC) | (Approximate), | | | | | | Expires: 12/12/2017 | + +------+--------+ + + | HIV-1,2 AB/HIV-1 P24 | Lab | Routin | History of liver | Expected: 11/11/2016 | | AG SCRN, SERUM | | e | transplant (HCC) | (Approximate), | | | | | | Expires: 12/12/2017 | + +------+--------+ + + | ETHYL GLUCURONIDE | Lab | Routin | History of liver | Expected: 11/11/2016 | | QUANT, URINE | | e | transplant (HCC) | (Approximate) | + +------+--------+ + + | SIROLIMUS | Lab | Routin | History of liver | Expected: 11/11/2016 | | QUANTITATION, WHOLE | | e | transplant (HCC) | (Approximate), | | BLOOD | | | | Expires: 12/11/2017 | + +------+--------+ + + documented as of this encounter Visit Diagnoses + + | Diagnosis | + + | History of liver transplant (HCC) - Primary Liver replaced by transplant | + + documented in this encounter"
--- OUTSIDE RECORDS SUMMARY | ~2019-05-14 | XMS | Encounter Summary ---
Demographics + + + | Address | [address] | | | [place] [address] | + + + | Home Phone | | + + + | Preferred Language | Unknown | + + + | Marital Status | Single | + + + | Christian Affiliation | BAP | + + + | Race | White | + + + | Ethnic Group | Not or | + + + Author + + + | Author | [facility] [employer] [facility] | + + + | Organization | [facility] [employer] [facility] | + + + [...] Team Providers + +------+ + | Care Plumbing Warehouse Helper Name | Role | Phone | + +------+ + | Sylvester Scherer DO | PCP | | + +------+ + Reason for Visit + + + | Reason | Comments | + + + | Lab Order | External Lab Orders | + + + Encounter Details +--------+ + + + + | Date | Type | Department | Care Team | Description | +--------+ + + + + | 01/11/ | Director Process | Liver Transplant | Valente Welch | | | 2014 | | at [facility] [address] MD,MPH [address] | | | | [address] | [address] | | | | | Mailcode: [address] | [place] [address] | | | | | [facility] | [phone] | | | | | [address] [place], [place] | | | | | | [address] | | | | | | [phone] | | | +--------+ + + + [...] | | | | | | [place], | | | | | | [place] [address] | | | | | | [phone] | | | | | | | | +--------+---------+ + + + documented as of this encounter Visit Diagnoses Not on filedocumented in this encounter"
--- OUTSIDE RECORDS SUMMARY | ~2019-05-14 | XMS | Encounter Summary ---
Demographics + + + | Address | [address] | | | [place] [address] | + + + | Home Phone [...] + + | Author | [facility] [facility] | + + + | Organization | [facility] | + [...] Providers + +------+ + | Care Cloth Winder Machine Operator Name | Role | Phone | + +------+ + | Sylvester Scherer DO | PCP | | + +------+ + Encounter Details +--------+ + + + + | Date | Type | Department | Care Team | Description | +--------+ + + + + | 08/06/ | Abstract | Transplant | Valente Welch | | | 2016 | | Coordinators [address] | MD Kiel,MPH [address] | | | | | [address] | [address] | | | | | [address] [place], [place] | [place] [address] | | | | | [address] | [phone] | | | | | [phone] | | | +--------+ + + + [...] | | | | | [address] [place], | | | | | | [place] [address] | | | | | | [phone] | | | | | | | | +--------+---------+ + + + documented as of this encounter Procedures + +--------+ + + + | Procedure Name | Priori | Date/Time | Associated Diagnosis | Comments | | | ty | | | | + +--------+ + + + | LIVER TRANSPLANT | Routin | 01/12/2015 | | Results for this | | POST PANEL (EXT | e | 4:07 PM | | procedure are in the | | RESULTS) | | PDT | | results section. | + +--------+ + + + documented in this encounter Results LIVER TRANSPLANT POST PANEL (EXT RESULTS) (01/12/2015 4:07 PM PDT) + +-------+ + + + | Component | Value | Ref Range | Performed | Pathologist | | | | | At | Signature | + +-------+ + + + | SODIUM, | 139 | mmol/L | [facility] | | | PLASMA | | | LAB - | | | (LAB) | | | [facility] | | + +-------+ + + + | POTASSIUM, | 4.4 | mmol/L | [facility] | | | PLASMA | | | LAB - | | | (LAB) | | | [facility] | | + +-------+ + + + | CHLORIDE, | 103 | mmol/L | [facility] | | | PLASMA | | | LAB - | | | (LAB) | | | [facility] | | + +-------+ + + + | TOTAL CO2, | 29 | mmol/L | [facility] | | | PLASMA | | | LAB - | | | (LAB) | | | [facility] | | + +-------+ + + + | GLUCOSE, | 91 | 65 - 110 mg/dL | [facility] [...] +-------+ + + + | CREATININE | 0.98 | mg/dL | [facility] | | | PLASMA | | | LAB - | | | (LAB) | | | [facility] | | + +-------+ + + + | CALCIUM, | 8.8 | mg/dL | [facility] | | | PLASMA | | | LAB - | | | (LAB) | | | O[facility] | | + +-------+ + + + | MAGNESIUM,P | 2.1 | mg/dL | [facility] | | | LASMA | | | LAB - | | | | | | OLV[facility] | | + +-------+ + + + | TOTAL | 6.9 | g/dL | [facility] | | | PROTEIN, | | | LAB - | | | PLASMA | | | O[facility] | | | (LAB) | | | | | + +-------+ + + + | ALBUMIN, | 4.2 | g/dL | [facility] | | | PLASMA | | | LAB - | | | (LAB) | | | OLVIN | | + +-------+ + + + | BILIRUBIN | 0.4 | Transcutaneous | [facility] | | | TOTAL | | Bilirubinometer | LAB - | | | | | | OLVIN | | + +-------+ + + + | ALK PHOS | 77 | U/L | [facility] | | | | | | LAB - | | | | | | O[facility] | | + +-------+ + + + | AST(SGOT) | 32 | U/L | [facility] | | | | | | LAB - | | | | | | [facility] | | + +-------+ + + + | ALT (SGPT) | 37 | U/L | [facility] | | | | | | LAB - | | | | | | O[facility] | | + +-------+ + + + | WHITE CELL | 5.3 | K/cu mm | [facility] | | | COUNT | | | LAB - | | | | | | OLV[facility] | | + +-------+ + + + | HEMATOCRIT | 48.1 | % | [facility] | | | | | | LAB - | | | | | | OLVIN | | + +-------+ + + + | HEMOGLOBIN | 15.2 | 13.5 - 17.5 | [facility] | | | | | g/dL | LAB - | | | | | | OLVIN | | + +-------+ + + + | PLATELET | 156 | K/cu mm | [facility] | | | COUNT | | | LAB - | | | | | | O[facility]IN | | + +-------+ + + + | TACROLIMUS | nd | ng/mL | [facility] | | | ([address]) | | | LAB - | | [...] + + | [facility] - | [address] | [place] | [phone] | | OLVIN | | | | + + + + + documented in this encounter Visit Diagnoses Not on filedocumented in this encounter"
--- OUTSIDE RECORDS SUMMARY | ~2019-05-14 | XMS | Encounter Summary ---
Demographics + + + | Address | [address] | | | [place] [address] | + + + | Home Phone [...] + + | Author | [facility] | + + + | Organization | [facility] | + + + | [...] Team Providers + +------+ + | Care Water Service Supervisor Name | Role | Phone | [...] | +--------+ + + + + | 04/25/ | Hospital | [address] | Shlomo Roach MD | | | 2019 - | Encounter | [facility] | [address] [place] | | | | | [facility] | [facility], | | | 05/09/ | | [place], [place] | [place] [address] | | | 2019 | | [address] | [phone] | | | | | [phone] | | | | | | | Tawanna | | | | | | MD María [address] | | | | | | [address] | | | | | | [address] [place], [place] | | | | | | [address] | | | | | | [phone] | | | | | | | | | | | | Sharif Ceja MD | | | | | | [address] | | | | | | [address] | | | | | | [place], [place] | | | | | | [address] | | | | | | [phone] | | | | | | | | | | | | Matthieu Hull MD | | | | | | [address] | | | | | | [place], | | | | | | [place] [address] | | | | | | [phone] | | | | | | | [...] + + + | Blood Pressure | 145/75 | 05/09/2019 7:16 AM | | | | | PDT | | + + + + + | Pulse | 47 | 05/09/2019 7:16 AM | | | | | PDT | | + + + + + | Temperature | 36.8 C (98.2 F) | 05/09/2019 7:16 AM | | | | | PDT | | + + + + + | Respiratory Rate | 18 | 05/09/2019 7:16 AM | | | | | PDT | | + + + + + | Oxygen Saturation | 97% | 05/09/2019 7:16 AM | | | | | PDT | | + + + + + | Inhaled Oxygen | - | - | | | Concentration | | | | + + + + + | Weight | 70.8 kg (156 lb 1.4 | 05/09/2019 3:33 AM | | | | oz) | PDT | | + + + + + | Height | 172.7 cm (5' 7.99") | 05/05/2019 8:45 AM | | | | | PDT | | + + + + + | Body Mass Index | 23.74 | 05/05/2019 8:45 AM | | | | | PDT [...] documented as of this encounter Discharge Summaries Torrie Alexander MD - 05/09/2019 3:44 PM PDTFormatting of this note might be diff erent from the original. [facility] Discharge Summary Discharging Provider: Torrie Jones MD Discharging Attending Physician: Matthieu Hull MD PCP: Ritesh England PA-C Admission Date: 04/25/2019 Discharge Date: 05/09/2019 Hospital Stay: 14 day(s) Diagnosis: Active Hospital Problems 1) *Acute LEFT Parotitis 2) Liver transplant recipient (HCC) 3) Hypertension 4) Recovered, reduced EF Chronic systolic heart failure (HCC) 5) Methamphetamine use disorder, moderate (HCC) 6) Squamous cell carcinoma of skin of ear, unspecified laterality 7) A-fib (HCC) 8) Acute renal injury superimposed on stage 4 chronic kidney disease (HCC) 9) Parotid sialolithiasis 10) Acute post-operative pain 11) Tongue edema (Angioedema vs post op edema) 12) Immunosuppression (HCC) (mycophenylate & sirolimus) 13) 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 Excision of 2 skin can cers approximately 5 x 4 cm on the neck skin with a cervicofacial advancement rotation flap used to reconstruct the neck skin. Identification of a stone in the parotid duct. External approach with division of the parotid duct and removal of the stone and stenting of the sto ne with multiple probing intraorally and through the stone excise site. Reason for Admission: Marissa Michaels JrValentina is a 59 y.o. male with HCV/EtOH cirrhosis s/p OLTx (2011) subsequent ly with multiple cutaneous SCC, systolic HF (most recent EF 55% in 2019), HTN, and CKD3 who was admitted from ENT clinic acute left parotitis after being seen in the ED in [place] on 04/18/19 and then again at [facility] ED in [place] on 04/20/19. He was diagnosed with parotitis at [facility] and started on Augmentin for 10 days. He has noticed improvement but swelling, pain, and purulent discharge for the left parotid gland continue. Hospital Course by Problem (with follow-up plan/instructions): # Left acute parotitis Initially managed with antibiotics, with improved inflammation before surgery. ENT performe d above mentioned surgery on 05/04 to remove a large stone and placed a temporary SARAH drain an d a parotid stent. The SARAH drain was removed before discharge, and the stent will be removed in 6 weeks unless is comes out before then. He will complete a two week course of amoxicilli n-clavulanate. # Tongue swelling Following L transfacial parotid stone removal on 05/04, he developed tongue swelling that wa s attributed to manipulation during the procedure as well as potentially angioedema r/t rece ntly started lisinopril. He remained intubated until 10/3 am and received dexamethasone for 24 h. Tongue swelling resolved and steroids were discontinued. Lisinopril was added to the a llergy list. # S/p OLT He was seen by Hepatology for elevated LFTs and immunosuppression management. He was switch ed from sirolimus to tacrolimus for better wound healing and continues on mycophenolate. Tr ansaminasescontinue to downtrend,suggesting liver injury may have been secondary topar otitis, now being treated, and less likely from rejection, alcohol, or his chronic HCV (thou gh possibly contributing). His liver dopplers are negative for PVT. # ANAID on CKD Initially transferred from ENT service with concern for ANAID on CKD, however, [facility] around 1.4 at that time. During procedure on 05/04, had transient hypotension resulti ng in ANAID with ATN, Cr max 2.51. At time of discharge, ANAID had resolved and Cr back at [facility] [place] # HTN Blood pressure up to 170s during and before admission. Home regimen was metoprolol succ 100 BID and amlodipine 5mg daily. Initially reported dizziness/lightheadedness that was attribu satya to over beta blockade and metoprolol was decreased to 100 mg daily. Lisinopril was start ed but then discontinued due to reaction described above. Amlodipine was decreased to 2.5 mg and losartan was initiated before discharge. Pertinent Findings: Labs: Cr 1.36 --> 2.51 --> 1.44 Imaging: Ct neck soft tissue Left parotitis with obstructing stones and ductal dilatation. Consultants (service/attending name): ENT (Dr. Roach) Discharge Medications: Medication List START taking these medications acetaminophen 325 mg Tab Commonly known as: TYLENOL Take 2 tablets by mouth three times daily. amoxicillin-clavulanate 500-125 mg Tab Commonly known as: AUGMENTIN Take 1 tablet by mouth three times daily for 10 days. Indications: bacterial infection, par otitis Replaces: amoxicillin-clavulanate 875-125 mg Tab chlorhexidine 0.12 % Mwsh Commonly known as: PERIDEX Take 15 mL by mouth four times daily as needed (mouth rinsing). Swish undiluted oral rinse around for 30 seconds, then spit. Do not swallow. losartan 25 mg Tab Commonly known as: COZAAR Take 1 tablet by mouth once daily at bedtime. nicotine 14 mg/24 hr Pt24 Commonly known as: NICOTROL Apply 1 patch to skin once daily. * tacrolimus 0.5 mg Cap Take 1 capsule by mouth once daily for 5 days. * tacrolimus 1 mg Cap Take 1 capsule by mouth once daily for 4 days. * This list has 2 medication(s) that are the same as other medications prescribed for you. Read the directions carefully, and ask your doctor or other care provider to review them wi th you. CHANGE how you take these medications amLODIPine 2.5 mg Tab Commonly known as: NORVASC Take 1 tablet by mouth once daily. Indications: high blood pressure What changed: medication strength how much to take when to take this metoprolol succinate 100 mg Tb24 Commonly known as: TOPROL-XL Take 1 tablet by mouth once daily. What changed: when to take this mycophenolate 250 mg Cap Commonly known as: CELLCEPT Take 1 capsule by mouth two times daily. What changed: how much to take when to take this additional instructions CONTINUE taking these medications albuterol 90 mcg/actuation Hfaa Commonly known as: PROVENTIL, VENTOLIN Inhale 1-2 puffs by mouth every six hours as needed. Indications: Bronchospastic Pulmonary Disease calcium-vitamin D 500 mg(1,250mg) -200 unit Tab Commonly known as: OS-TURNER 500 + D Take 1 tablet by mouth two times daily. furosemide 20 mg Tab Commonly known as: LASIX Take 10 mg by mouth every Thursday, Thursday and Thursday. multivitamin-minerals Tab Take 1 tablet by mouth once daily. oxyCODONE (immediate release) 5 mg Tab Commonly known as: ROXICODONE Take 1 tablet by mouth every six hours as needed for severe pain for up to 7 days. polyethylene glycol 17 gram Pwpk Commonly known as: MIRALAX Mix 1 packet and take orally two times daily. STOP taking these medications amoxicillin-clavulanate 875-125 mg Tab Commonly known as: AUGMENTIN Replaced by: amoxicillin-clavulanate 500-125 mg Tab sirolimus 1 mg Tab Commonly known as: RAPAMUNE Allergies: Allergies Allergen Reactions Lisinopril Angioedema Had provoked tongue edema after manipulation during an oral surgery. Required prolonged i ntubation to allow swelling to reduce. There is difference of opinion as to whether this wa s angioedema or post op tongue edema from prolonged traction. Regardless we will change to ARB for now Morphine Nausea Code Status: Full POLST completed: no Additional Instructions: Diet Instructions Diet Type: Regular diet- There are no restrictions to your diet. You may eat or drink wha tever you prefer, though healthy food choices are recommended. - Activity Instructions Activity Instructions: No activity restrictions Additional Instructions Home Health Referral after Hospitalization Comments: I certify that this patient is under my care and that I, or Nurse Practitioner or Physician Navigation Officer working with me, had a face to face encounter with this patient on 05/09/2019 On behalf of Attending Physician: Matthieu Hull MD I am ordering and certify that the following services are medically necessary home health services: Home Health Care/Bath Aid I certify that the patient is homebound based on the following clinical findings: Able to ambulate only short distances, unsteady gait, and requires use of supportive device; who is confined to bed or wheelchair and requires 1-2 people to assist with ADL's Home Health Referral after Hospitalization Comments: I certify that this patient is under my care and that I, or Nurse Practitioner or Physician Navigation Officer working with me, had a face to face encounter with this patient on 05/09/2019 On behalf of Attending Physician: Matthieu Hull MD I am ordering and certify that the following services are medically necessary home health services: Home Health Halfway Evaluate and Treat I certify that the patient is homebound based on the following clinical findings: Post-ho spital weakness, decreased strength and endurance, and tires easily with minimal exertion PLEASE TRANSITION FROM TACROLIMUS BACK TO YOUR HOME SIROLIMUS DOSE WHEN YOU RUN OUT OF TACR OLIMUS PILLS (05/15) Wound Care: continue parotid gland massage twice daily. Opioid Pain Management Opioid pain medication has been started during this hospitalization. Anticipated duration of opioid treatment: 1 week Who will provide refills: PCP Tapering plan: Please taper down use of oxycodone as you heal from the surgery. Other Orders & Follow-up Plan Home Health Referral after Hospitalization Home Health Referral after Hospitalization Discharge Destination No service has been selected for the patient. Home Care Medical - Selection Complete Service Provider Request Status Selected Services Address Phone Number Fax Number [facility] Selected Home Health Services [address], [address] , [facility] [address] [phone] Community Resources No service has been selected for the patient. Durable Medical Equipment No service has been selected for the patient. Dialysis/Infusion No service has been selected for the patient. Follow Up: Future Appointments Provider Department Dept Phone Center 06/17/2019 12:00 PM Shlomo Roach Otolaryngology Head and Neck Surgery Services at [facility] Otolaryngolo Contact information for other follow-up providers Ritesh England PA-C In 1 week. Specialty: Physician Navigation Officer Why: labs (liver function, kidney function) Contact information [address] [facility] [address] Photographer In 1 month. Why: discuss medication changes for high blood pressure and heart failure Contact information for after-discharge [facility] . Service: Home Health Services Contact information [address], [address] [facility] [address] Discharge Physical Exam: Last 24 hour min/max Temp: 36.8 C (98.2 F) No data recorded Pulse: 47 No data recorded Resp: 18 No data recorded BP: 145/75 No data recorded SpO2: 97 % No data recorded Body mass index is 23.74 kg/m. General:Sitting up in bed in NAD HEENT: Right flap repair. Left parotid swelling and tenderness improved, incisions healing well. Neck:Supple Cardiovascular:RRR, no m/r/g Respiratory:CTAB Abdomen:Reducible hernia, soft, mildly tender to palpation over entire abdomen, BS presen t Extremities:No edema Neuro:CN intact except right facial palsy. No saccades. 5/5 strength throughout Skin:Widespread macular lesions, some with yellow, oily, flaking Torrie Jones MD Associated attestation - Matthieu Hull MD - 05/11/2019 6:46 AM PDT INPATIENT FACULTY PROGRESS NOTE - GM 2 Author; MATTHIEU HULL MD Attending Physician: MATTHIEU HULL MD Hospital Day: 14 PCP: Ritesh England PA-C PCP PCP Late Entry for May 09, 2019, when I completely evaluated, examined, and documented, the n 'pended' my note, & 'pasted' it below, in order to allow for the resident's autonomous com pletion of their assessment Patient's Name: Marissa Michaels Jr. Today's Date: 05/11/2019 I personally saw, interviewed, & assessed the patient; performed the churchill elements of the ph ysical examination; and formulated the assessment and plan with the resident. I have revie wed and verified all information documented by Dr. Jones and made modifications to such information, where appropriate or as noted or expanded upon below. Active Issues: 1) *Acute LEFT Parotitis 2) Parotid sialolithiasis 3) Tongue edema (Angioedema vs post op edema) 4) Squamous cell carcinoma of skin of ear, unspecified laterality 5) Immunosuppression (HCC) (mycophenylate & sirolimus) 6) Recovered, reduced EF Chronic systolic heart failure (HCC) 7) A-fib (HCC) 8) Acute renal injury superimposed on stage 4 chronic kidney disease (HCC) 9) Methamphetamine use disorder, moderate (HCC) (per chart: will review) 10) 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) 11) Hypertension 12) Liver transplant recipient (HCC) 13) Acute post-operative pain Resolved Hospital Problems 14) On mechanically assisted ventilation (HCC) 15) Severe tongue swelling SURROGATE DECISION MAKER Surrogate Decision Maker Primary Surrogate Decision Maker Shruthi Osorio [phone] MATTHIEU HULL MD [address] classroom assistant Division of Hospital Medicine Department of Medicine [facility] & [address] [phone] documented in this encounter Discharge Instructions Discharge Instr - AVS First Page Torrie Alexander MD - 05/04/2019 6:52 PM PDTWho to Call: HOW TO REACH YOUR MEDICAL TEAM WITH QUESTIONS, CONCERNS, OR NEW SYMPTOMS: Thank you for entrusting your care to [facility] Internal Medicine. If you have any problems or concerns be fore you are able to follow up with your Primary Care Provider, please call a nd ask the refined syrup operator to page the attending physician who was caring for you at discharge. If that physician is not available, ask the refined syrup operator to page the physician on-call for the [facility] Teaching Service. 12:0 6 PM PDT Discharge Instr - Activity Torrie Alexander MD - 05/04/2019 6:52 PM PDTActivity I nstructions: No activity restrictions Discharge Instr - Diet Torrie Alexander MD - 05/04/2019 6:52 PM PDTDiet Type: Reg ular diet- There are no restrictions to your diet. You may eat or drink whatever you prefer , though healthy food choices are recommended. Discharge Instr - Diagnoses Torrie Alexander MD - 05/04/2019 6:50 PM PDTYou were here for parotitis, which is inflammation of your salivary gland due to a blocking stone. El ectronically signed by Torrie Dennis MD at 05/09/2019 12:03 PM PDT Discharge Instr - Procedures Torrie Alexander MD - 05/09/2019 12:03 PM PDTSalivary stone removal T Discharge Instr - Hospital Course Torrie Alexander MD - 05/04/2019 6:51 PM PDTYou were admitted to the hospital because of parotid gland infection and we found out that ther e was a stone in your parotid gland. The surgery happened on May 04 and they took the s tone out however your tongue started to swell up and they could not extubate you that is why they transferred you to the ICU to make sure your tongue swelling comes down before they t atif the breathing tube out. Your surgery is healing well and the drain was removed on 05/09. Discharge Instr - Electronic Signature Lexie Devlin, - 05/04/2019 6:52 PM PD TAfter Visit Summary Signature Electronically signed by: Lexie Gagnon DO, 05/04/2019 at 6:52 PMElectronicall y signed by Lexie Mccullough DO at 05/04/2019 6:52 PM PDT Additional Instructions Torrie Alexander MD - 05/04/2019 6:52 PM PDTPLEASE TRANSI TION FROM TACROLIMUS BACK TO YOUR HOME SIROLIMUS DOSE WHEN YOU RUN OUT OF TACROLIMUS PILLS ( 05/15) Wound Care: continue parotid gland massage twice daily. Opioid Pain Management Opioid pain medication has been started during this hospitalization. Anticipated duration of opioid treatment: 1 week Who will provide refills: PCP Tapering plan: Please taper down use of oxycodone as you heal from the surgery. documented in this encounter Medications at Time of Discharge + + + +---------+ + + | Medication | Sig | Dispensed | Refills | Start | End Date | | | | | | Date | | + + + +---------+ + + | acetaminophen 325 | Take 2 tablets by | 60 | 0 | 05/09/20 | | | mg oral | mouth three times | tablet | | 19 | | | tabletIndications: | daily. | | | | | | Parotitis | | | | | | + [...] + + +---------+ + + | amLODIPine 2.5 mg | Take 1 tablet by | 30 | 0 | 05/10/20 | | | oral | mouth once daily. | tablet | | 19 | | | tabletIndications: | Indications: high | | | | | | hypertension | blood pressure | | | | | + + + +---------+ + + | | Take 1 tablet by | 30 | 0 | 05/09/20 | | | amoxicillin-clavulan | mouth three times | tablet | | 19 | 9 | | ate 500-125 mg oral | daily for 10 days. | | | | | | tabletIndications: | Indications: | | | | | | ENT infection, | bacterial infection, | | | | | | parotitis | parotitis | | | | | + + + +---------+ + + | calcium-vitamin D | Take 1 tablet by | 60 | 0 | 01/19/20 | | | 500 mg(1,250mg) -200 | mouth two times | tablet | | 18 | | | unit oral tablet | daily. | | | | | + + + +---------+ + + | chlorhexidine 0.12 | Take 15 mL by mouth | 473 mL | 0 | 05/09/20 | | | % mucous membrane | four times daily as | | | 19 | | | mouthwash | needed (mouth | | | | | | | rinsing). Swish | | | | | | | undiluted oral rinse | | | | | | | around for 30 | | | | | | | seconds, then spit. | | | | | | | Do not swallow. | | | | | + + + +---------+ + + | furosemide 20 mg | Take 10 mg by mouth | | 0 | | | | oral tablet | every Thursday, | | | | | | | Thursday and | | | | | | | Thursday. | | | | | + + + +---------+ + + | losartan 25 mg | Take 1 tablet by | 30 | 0 | 05/09/20 | | | oral tablet | mouth once daily at | tablet | | 19 | | | | bedtime. | | | | | + + + +---------+ + + | metoprolol | Take 1 tablet by | 30 | 0 | 05/10/20 | | | succinate 100 mg | mouth once daily. | tablet | | 19 | | | oral tablet extended | [...] + + +---------+ + + | mycophenolate 250 | Take 1 capsule by | 60 | 0 | 05/09/20 | | | mg oral capsule | mouth two times | capsule | | 19 | | | | daily. | | | | | + + + +---------+ + + | nicotine 14 mg/24 | Apply 1 patch to | 21 | 0 | 05/10/20 | | | hr transdermal patch | skin once daily. | patch | | 19 | | | 24 hourIndications: | | | | | | | Parotitis | | | | | | + + + +---------+ + + | oxyCODONE | Take 1 tablet by | 30 | 0 | 05/09/20 | | | (immediate release) | mouth every six | tablet | | 19 | 9 | | 5 mg oral | hours as needed for | | | | | | tabletIndications: | severe pain for up | | | | | | Malignant neoplasm | to 7 days. | | | | | | of cheek (HCC) | | | | | | + + + +---------+ + + | polyethylene | Mix 1 packet and | 60 | 0 | 01/19/20 | | | glycol 17 gram oral | take orally two | packet | | 18 | | | powder in packet | times daily. | | | | | + + + +---------+ + + | tacrolimus 0.5 mg | Take 1 capsule by | 5 | 0 | 05/09/20 | | | oral capsule | mouth once daily for | capsule | | 19 | 9 | | | 5 days. | | | | | + + + +---------+ + + | tacrolimus 1 mg | Take 1 capsule by | 4 | 0 | 05/10/20 | | | oral capsule | mouth once daily for | capsule | | 19 | 9 | | | 4 days. | | | | | + + + +---------+ + + documented as of this encounter Progress Notes Juanjose Gupta PA-C - 05/09/2019 11:10 AM PDT The Department of Otolaryngology Head & Neck Surgery Progress Note Author: DRE CRONIN MD Attending Physician: Eron 05/09/2019 PROCEDURE: 05/04/2019 Excision of two cervical cutaneous cancers Reconstruction with cervical advancement flap External approach with division of the parotid duct and removal of the stone, placement of parotid duct stent INTERVAL EVENTS: No acute events OBJECTIVE: Last 24 hour min/max Temp: 36.8 C (98.2 F) Temp Min: 36.5 C (97.7 F) Max: 37.1 C (98.8 F) Pulse: 47 Pulse Min: 47 Max: 68 Resp: 18 Resp Min: 18 Max: 18 BP: 145/75 BP Min: 145/75 Max: 170/73 SpO2: 97 % SpO2 Min: 94 % Max: 97 % Body mass index is 23.74 kg/m. PHYSICAL EXAM: Gen: awake, alert, no apparent distress HEENT: tongue swelling resolved, incisions C/D/I Resp: Breathing unlabored on RA Labs: Lab Results Component Value Date WBC 11.60 05/07/2019 HB 11.4 05/07/2019 HCT 34.6 05/07/2019 PLT 207 05/07/2019 MCV 87.8 05/07/2019 RDW 44.8 05/07/2019 Lab Results Component Value Date NA 140 05/09/2019 K 5.0 05/09/2019 CL 107 05/09/2019 BICARB 28 05/09/2019 BUN 39 05/09/2019 CR 1.44 05/09/2019 GLU 108 05/09/2019 CA 7.8 05/09/2019 ASSESSMENT/PLAN: Marissa Michaels Jr. Is a 59M with a history of HCV/EtOH cirrhosis s/p liver transplant, systolic HF, HTN, and CKD3 with multiple prior cutaneous SCCs who presents with left parot itis. Now POD#4 from external approach for parotid duct stone excision with stent placement, cutaneous SCC excision. Remained intubated pos-operatively for tongue swelling, now extubat ed and doing well. Transferred to floor under medicine team. Doing well --Plan for dc by Medicine team possible today -Stent in the parotid duct to be remove in 6 weeks by either local ENT or us (in the interi m follow up appt has been scheduled June [address] Roach for the parotid stent removal ) -Removed neck drain JUANJOSE GUPTA PA-C Department of Otolaryngology/Head and Neck Surgery Mail Code PV01 [address] [place] [address] Pager [phone] Consult/Night/Weekend Pager: [phone] Everardo Barger MD - 05/08/2019 12:27 PM PDT GENERAL MEDICINE PROGRESS NOTE Author: Everardo Pardo MD Attending Physician: María Stacy MD Hospital Day: 13 ID: Marissa Michaels Jr. is a 59 y.o. malew/ hx ofliver transplant on immunosupression, HTN, CKD3 admitted for parotitis s/p stone excision with HTN and ANAID. 24 Hour Events: Transferred to the floor after intubation for airway protection d/t post-op tongue swelling Subjective: Feeling well. Slight pain at incision site. Tolerating food well. Denies fevers, chills, So B. Active medications: acetaminophen (TYLENOL) tablet 650 mg, 650 mg, oral, TID albuterol (PROVENTIL, VENTOLIN) 90 mcg/actuation inhaler 1-2 puff, 1-2 puff, inhalation, Q6 H PRN amLODIPine (NORVASC) tablet 2.5 mg, 2.5 mg, oral, DAILY amoxicillin-clavulanate (AUGMENTIN) 500-125 mg 500 mg, 500 mg, oral, TID bisacodyl (DULCOLAX) suppository 10 mg, 10 mg, rectal, DAILY PRN calcium carbonate chewable (TUMS) tablet 200 mg elemental, 500 mg total salt, oral, Q2H PRN heparin injection 5,000 Units, 5,000 Units, subcutaneous, Q12H (Scheduled) hydrOXYzine pamoate (VISTARIL) capsule 50 mg, 50 mg, oral, Q6H PRN losartan (COZAAR) tablet 25 mg, 25 mg, oral, HS metoprolol succinate (TOPROL-XL) tablet 100 mg, 100 mg, oral, DAILY mycophenolate (CELLCEPT) capsule 250 mg, 250 mg, oral, BID (MMF) nicotine (NICOTROL) 14 mg/24 hr 1 patch, 1 patch, transdermal, DAILY nicotine polacrilex (COMMIT) lozenge 2 mg, 2 mg, oral, Q1H PRN ondansetron ODT (ZOFRAN ODT) tablet 8 mg, 8 mg, oral, Q12H PRN oxyCODONE (immediate release) (ROXICODONE) tablet 5-10 mg, 5-10 mg, oral, Q4H PRN polyethylene glycol (MIRALAX) packet 17 g, 17 g, oral, TID PRN saliva substitute (MOUTH KOTE) spray 4 spray, 4 spray, oral, PRN senna-docusate (SENOKOT S) 8.6-50 mg 1 tablet, 1 tablet, oral, BID tacrolimus capsule 0.5 mg, 0.5 mg, oral, DAILY tacrolimus capsule 1 mg, 1 mg, oral, DAILY Physical Examination: Last 24 hour min/max Temp: 36.8 C (98.2 F) Temp Min: 36.7 C (98.1 F) Max: 37 C (98.6 F) Pulse: 51 Pulse Min: 46 Max: 55 Resp: 18 Resp Min: 16 Max: 18 BP: 168/74 BP Min: 149/76 Max: 180/73 SpO2: 96 % SpO2 Min: 96 % Max: 97 % Body mass index is 23.7 kg/m. Intake/Output Summary (Last 24 hours) at 05/08/2019 1227 Last data filed at 05/08/2019 0800 Gross per 24 hour Intake 745 ml Output 840 ml Net -95 ml General: Lying in bed in NAD HEENT: Right flap repair. Left parotid gland swelling significantly reduced. Left incision intact, drain with serosanguinous utput Lungs: Breathing comfortably on RA, normal respiratory effort. Cardiovascular: RRR crescendo-decrescendo murmur loudest at LLSB no radiation to neck, radi ation to axilla Abdomen: soft, globally mildly tender, nondistended, reducible hernia Extremities: wwp, no BLE edema Skin: Many actinic keratoses on skin Neuro: A&Ox4. Laboratory: Chemistries: Last 72 Hours (or 3 results) - Refreshable Recent Labs 05/07/19 0026 05/07/19 0827 05/08/19 0041 NA 138 139 140 K 5.1* 4.9 4.7 CL 106 110* 108 BICARB 25 26 26 BUN 50* 48* 44* EGFRAFRICAN 48* 49* 50* CR 1.75* 1.73* 1.70* GLU 142* 107* 100* CA 7.9* 7.5* 7.7* MG -- 2.3 -- PO4 -- 2.8 -- Micro: None Imaging: None Assessment and Plan Marissa Michaels Jr. is a 59 y.o. Male w/ hx ofliver transplant on immunosupression, HT N, CKD3 admitted for parotitis s/p stone excision with ANAID and HTN #Parotitis Will talk with ENT about duration of drain. After that, can DC -Continue amoxicillin/clavulante 500/125mg TID, day 4/14 -Continue parotid massage BID -Saliva substitute spray PRN -Oral care -Follow up for stent removal 6 weeks post-op #CKD3 #ANAID (improving) Per chart review, baseline creatinine around 1.45. Had ANAID during ICU stay, possibly due to low pressures. Peaked at 2.5. Will trend. Now 1.70 -Refer for outpatient Nephrology -Start losartan 25mg qHS #HTN Blood pressure still not optimally controlled. Had possible angioedema from lisinopril, or at least worsening of edema from trauma. Still would benefit from an JOYCE axis agent, will st art losartan. -Continue metoprolol succinate 100mg daily -Start losartan 25mg qHS -Hydralazine 10mg prn SBP>180 #Liver transplant LFTs stable. Hepatology following. Recommended switch back to sirolimus two weeks post-surg cristopher. -Continue tacrolimus 1mg qAM 0.5mg qHS -Continuemycophenolate to 250 BID -Hepatology on board, appresciate recommendations -Daily CMP Fluids/Electrolytes/Nutrition:PO Analgesia:APAP, oxycodone Thromboembolic ppx:SCDs, heparin Head of bed elevation:ad pito Ulcer ppx: not indicated Glucose control: not indicated GI ppx:senna-docusate, miralax IV/Airways/Catheters:PIV x2, SARAH drain L neck CODE:Full SDM: Sister Shruthi [phone] The patient was discussed with attending physician, Dr. Matthieu Hull MD, who agrees with th e above assessment and plan. Everardo Pardo MD Neurology PGY-1 P lejeff, Dre David MD - 05/08/2019 9:23 AM PDT The Department of Otolaryngology Head & Neck Surgery Progress Note Author: DRE CRONIN MD Attending Physician: Eron 05/08/2019 PROCEDURE: 05/04/2019 Excision of two cervical cutaneous cancers Reconstruction with cervical advancement flap External approach with division of the parotid duct and removal of the stone, placement of parotid duct stent INTERVAL EVENTS: AVELINA Tolerating diet Pain improving Glad to be back on the floor, eating pancakes, watching football OBJECTIVE: Last 24 hour min/max Temp: 36.8 C (98.2 F) Temp Min: 36.7 C (98.1 F) Max: 37 C (98.6 F) Pulse: 51 Pulse Min: 46 Max: 55 Resp: 18 Resp Min: 16 Max: 18 BP: 168/74 BP Min: 149/76 Max: 180/73 SpO2: 96 % SpO2 Min: 96 % Max: 97 % Body mass index is 23.7 kg/m. PHYSICAL EXAM: Gen: awake, alert, no apparent distress HEENT: tongue swelling resolved, incisions C/D/I, SARAH in left lateral neck with SS drainage, holding suction - output 30ml Resp: Breathing unlabored on RA Labs: Lab Results Component Value Date WBC 11.60 05/07/2019 HB 11.4 05/07/2019 HCT 34.6 05/07/2019 PLT 207 05/07/2019 MCV 87.8 05/07/2019 RDW 44.8 05/07/2019 Lab Results Component Value Date NA 140 05/08/2019 K 4.7 05/08/2019 CL 108 05/08/2019 BICARB 26 05/08/2019 BUN 44 05/08/2019 CR 1.70 05/08/2019 GLU 100 05/08/2019 CA 7.7 05/08/2019 ASSESSMENT/PLAN: Marissa Morenostefanie Vanegas Is a 59M with a history of HCV/EtOH cirrhosis s/p liver transplant, systolic HF, HTN, and CKD3 with multiple prior cutaneous SCCs who presents with left parot itis. Now POD#4 from external approach for parotid duct stone excision with stent placement, cutaneous SCC excision. Remained intubated pos-operatively for tongue swelling, now extubat ed and doing well. Awaiting bed on the floor. Medicine team primary --Aggressive oral care with mouth swabs, saliva substitute, peridex, and debridement of all visible crusts, pharyngeal/nasopharyngeal suctioning. - Continue parotid massages - ok to liberalize to BID - Continue warm compresses. Continue antibiotics Augmentin for 2 weeks from 05/05 - Continue HOB >30 deg, aspiration precautions -Stent in the parotid duct to be remove in 6 weeks by either local ENT or us (in the interi m follow up appt has been scheduled June [address] Roach for the parotid stent removal ) -Continuing SARAH drain for now ENT will continue to follow. Please feel free to contact us with questions or concerns at p ager [phone]. Dre Cronin MD Resident Physician, PGY-5 Otolaryngology/ Head & Neck Surgery Pager [phone] Associated attestation - Edgar Littlejohn MD - 05/08/2019 5:30 PM PDT PATIENT NAME: Marissa Michaels [facility] MR#: [id number] : 1960 PRIMARY CARE PROVIDER: Ritesh England PA-C I have reviewed the resident's note for this day's hospitalization and I have examined Mr. Michaels. ASSESSMENT: Mr. Michaels remains hospitalized for postoperative care. PLAN: I agree with the resident's findings, assessment, and plans as outlined. Edgar Littlejohn MD, FACS Otolaryngology-Head & Neck Surgery Dina Mauricio MD - 05/07/2019 4:23 PM PDTFormatting of this note might be different fro m the original. Cardiovascular Intensive Care Unit Attending Progress Note CVICU D1 Assigned #[id number] ICU Admission Reason Most Recent Value ICU Admission reason airway swelling monitoring, mechanical ventilation filed at [phone] Documentation Date Row Name 05/04/19 2310 ENT ENT ENT Procedures Other ENT Other transfacial parotid stone resection Hospital admission dx: L parotitis 3 Days in ICU 12 Days in Hospital Abbreviated HPI / Daily Assessment 59 YOM PMH hx/o OLTx on immunosuppression (MMF, sirolimus) etiology HCV/EtOH c/b HCC, HFp EF, HTN, CKD3, SCC, and LEFT parotitis with an obstructing stone admitted to the CVICU after LEFT transfacial parotid stone removal. Extubated, recovering well from surgery. ATN improv ing. Medical Decision Making 59y M with h/o OLTx (HCV/EtOH w/ HCC), HFpEF, HTN, CKD3, SCC, and L parotitis complicated by obstructing stone, who underwent L parotidectomy today (05/04) c/b tongue swelling preclud ing extubation at end of case. Overall edema appears most likely due to traction periprocedu rally, and expect gradual resolution with fluid and sitting position. Now extubated, is IMC status, doing well Today: Cr continues to trend down Occasional high blood pressures Plan: * Now s/p 24H steroids * Multimodal analgesia * ENT following * Hx of HFpEF/HTN (depressed EF in 2017, recent TTE in care everywhere 01/2019: 60-65%): Hol ding his lisinopril given ANAID, continuing his metoprolol for now, will add amlodipine (can s witch back to lisinopril when ANAID resolves) * Cr continues to trend down, suspect secondary to ATN, is auto-diuresing, lytes ok, slowly improving * OLTx following given hx of liver txp, on tacrolimus and Cellcept * SC heparin for DVT prophy * IMC status, will go back to medicine * Full Code Hospital Problems Priority POA Mental Health Methamphetamine use disorder, moderate (HCC) Yes Head/Neck Squamous cell carcinoma of skin of ear, unspecified laterality Yes Acute parotitis Yes Parotid sialolithiasis Yes Cardiovascular Hypertension Yes Chronic systolic heart failure (HCC) Yes A-fib (HCC) Yes Genitourinary Acute renal injury superimposed on stage 4 chronic kidney disease (HCC) Yes Other Liver transplant recipient (HCC) 2 Yes Acute post-operative pain Unknown Service Anesthesia [9] Admitting provider and ICU treatment team members Provider Role Specialty Pager Shlomo Roach MD Admitting Provider Otolaryngology [id number] Code Status Code Status Full Code Quality section I have spent a total of 22 minutes in the direct care and management of this patient indepe ndent of any time spent teaching or performing any separately billable procedures. I reviewe d the documented findings, all data and the recent imaging available. Greater than 50% of th is time was spent on counseling and coordination of care. I saw and evaluated the patient at the bedside together with Dr. Marissa Rodriguez.Please see their note for details. I agree wit h the assessment and plan as described in the resident's note with the following exceptions/ additions as noted. Date of Service: 05/07/2019 Author:Dina Mauricio MD [address] [id number] signed by Dina Mauricio MD at 05/07/2019 4:23 PM P Torrie Denton MD - 05/07/2019 3:40 PM PDTInternal Medicine - Brief Resident A dmit Note ID/HPI: Mr. Michaels is a 59 year old man with HCV/EtOH cirrhosis s/p OLT, chronic systolic HF, SCC, H TN, CKD stage 4 who was admitted to ENT and 2 for acute parotitis which is now s/p stone r emoval with brief CVICU admission for delayed extubation s/t tongue swelling. Following L transfacial parotid stone removal on 05/04, he developed tongue swelling that wa s attributed to manipulation during the procedure as well as potentially angioedema r/t rece ntly started lisinopril. He remained intubated until 10/3 am and received dexamethasone for 24 h. He was hypotensive during procedure and subsequently developed ANAID with ATN. Metoprolo l and lisinopril were initially held; metoprolol succinate was then resumed at 100 mg BID (p rior home dose but increased from recent metop tartrate 25 mg q6h). He was also started on a mlodipine. He was seen by Hepatology for elevated LFTs and immunosuppression management. He was switch ed from sirolimus to tacrolimus for better wound healing and continues on mycophenolate. He feels his pain and ability to swallow are improving. He has had no trouble with talking or breathing. He feels bloated and has not had a BM for the last 24 h but is passing gas. Objective Findings: - Vitals notable for afebrile temp, pulse in 50s, BP 150-180/60-80, satting well on RA - Labs notable for Cr 1.7, improved from max 2.5, up from baseline around 1.4, new leukocyt osis 11.6, stable anemia Hgb 11.4 - exam notable for post-surgical cancer with absent R ear, SARAH in left neck, serosanguinous drainage, tongue swelling resolved, reducible abdominal wall hernia, heart regular, no evide nce of volume overload Problem List: # Acute parotitis s/p L parotidectomy # HCV/EtOH cirrhosis s/p liver transplant in 2011 # HTN # Chronic systolic heart failure, last EF 55% # Methamphetamine use disorder, moderate # SCC of R ear # Afib (chart history, not documented here and not on anticoagulation) # CKD stage 4 Assessment & Plan: 59 year old man with HCV/EtOH cirrhosis s/p OLT, chronic systolic HF, SCC, HTN, CKD stage 4 who returns to service after parotidectomy c/b tongue swelling necessitating prolonged i ntubation and CVICU admission. Primary etiology of tongue swelling is likely manipulation du ring surgery, but would be prudent to assume involvement of recently initiated lisinopril. G oing forward, we will monitor for continued resolution of ANAID and plan to start ARB at that time. ENT continues to follow and will advise regarding duration of SARAH drain. - monitor renal function, plan to initiate ARB - continue Augmentin for 14 days (start date 05/05) - discuss with ENT drain removal and other discharge criteria - follow up scheduled June [address] Roach for parotid stent removal - continue mycophenolate and tacrolimus for now, plan to transition back to sirolimus 2 webruce ks post-surgery Code Status: Full SDM: Sister Shruthi [phone] This patient will be staffed with attending physician, Dr. Hull within 24 hours. Torrie Jones MD Internal Medicine, PGY-2 Pager: [phone] Associated attestation - Matthieu Hull MD - 05/08/2019 1:21 PM PDT INPATIENT FACULTY PROGRESS NOTE - 2 Author; MATTHIEU HULL MD Attending Physician: Matthieu Hull MD Hospital Day: 13 PCP: Ritesh England PA-C PCP PCP Patient's Name: Marissa Michaels Jr. Today's Date: 05/08/2019 I personally saw, interviewed, & assessed the patient; performed the churchill elements of the ph ysical examination; and formulated the assessment and plan with the resident(s). I have re viewed and verified all information documented by Dr. Jones & Edvin (his note is n't quite done yet) and made modifications to such information, where appropriate or as note d or expanded upon below. Exam: Last Vitals: BP 168/74 (BP Location: Right upper arm, Patient Position: Sitting) | Pulse 5 1 | Temp 36.8 C (98.2 F) (Oral) | Resp 18 | Ht 1.727 m (5' 7.99") | Wt 70.7 kg (155 lb 13.8 oz) | SpO2 96% | BMI 23.70 kg/m | BSA 1.84 m 24 Hour Vital Min/Max: Systolic (24hrs), Av , Min:149 , Max:180 Diastolic (24hrs), Av, Min:61, Max:76 Pulse Min: 46 Max: 55 Temp Min: 36.7 C (98.1 F) Max: 37 C (98.6 F) Resp Min: 16 Max: 18 SpO2 Min: 96 % Max: 97 % Intake/Output Summary (Last 24 hours) at 05/08/2019 1311 Last data filed at 05/08/2019 0800 Gross per 24 hour Intake 745 ml Output 840 ml Net -95 ml Jovial/comfortable Well-healing L neck incision Reduced yadi edema No overt elevation of JVP or abnormal Abd Jug Reflux Murmur is notable (III/), but I wouldn't describe it as holosystolic. It is a III/ cre sc/descres systolic murmur, loudest at the base, but audible in the axilla with preserved va lves sounds. No prominent sternal lift or palpable PA. I did NOT (grr) do respiratory melania uvers. No appreciable L scapular radiation. Resting R peripheral nerve palsy and apparent L facial drop and more open eye (e.g. ? R pal sy). This is easily overcome however. 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) 11) Hypertension 12) Liver transplant recipient (HCC) 13) Acute post-operative pain Resolved Hospital Problems 14) On mechanically assisted ventilation (HCC) 15) Severe tongue swelling SURROGATE DECISION MAKER Surrogate Decision Maker Primary Surrogate Decision Maker Shruthi Osorio [phone] MATTHIEU HULL MD [address] classroom assistant Division of Hospital Medicine Department of Medicine [facility] & [address] [id number] Marissa Moura, DO - 05/07/2019 10:28 AM PDT Cardiovascular Intensive Care Unit Team Progress Note CVICU D1 Assigned #[id number] ICU Admission Reason Most Recent Value ICU Admission reason airway swelling monitoring, mechanical ventilation filed at 9 2311 Documentation Date Row Name 05/04/19 2310 ENT ENT ENT Procedures Other ENT Other transfacial parotid stone resection Admission dx: L parotitis 3 Days in ICU 12 Days in Hospital Abbreviated HPI / Daily Assessment 59 YOM PMH hx/o OLTx on immunosuppression (MMF, sirolimus) etiology HCV/EtOH c/b HCC, HFp EF, HTN, CKD3, SCC, and LEFT parotitis with an obstructing stone admitted to the CVICU after LEFT transfacial parotid stone removal. Extubated, recovering well from surgery. ATN improv ing. 24 Hour events - Tacrolimus Dose Adjusted - Renal function improving - Remains IMC Code Status Code Status Full Code Active Diagnosis with Assessment & Plan Priority Class POA Mental Health Methamphetamine use disorder, moderate (HCC) Yes Head/Neck Squamous cell carcinoma of skin of ear, unspecified laterality Yes Acute parotitis Yes Parotid sialolithiasis Yes Overview Added automatically from request for surgery [id number] Current Assessment & Plan S/P transfacial parotid stone removal - Continue Augmentin for a total of 14 Days (500mg TID) - Continue HOB >30 deg, aspiration precautions - pt has parotid stent in and per ENT team, should it come out, it does not need to be repl aced Cardiovascular Hypertension Yes Current Assessment & Plan Underlying essential HTN. Start on lisinopril during this hospitalization but unfortunate ly developed ATN, which is fortunately resolving . - transitioned metop tartrate to home metop succ 100mg BID - hold lisinopril while Cr elevated (will likely restart in coming week) - Starting amlodipine 2.5mg QD today Chronic systolic heart failure (HCC) Yes Overview 08/2016 TTE Normal left ventricular size with moderate concentric left ventricular hypertrophy. There is a moderate global hypokinesis of the left ventricle. Overall, left ventricular significant is moderately decreased. LVEF is 35-40%. A-fib (HCC) Yes Overview Overview: [facility] Gastroenterology note 09/07/2018: Genitourinary Acute renal injury superimposed on stage 4 chronic kidney disease (HCC) Yes Overview ER report 04/02/2019-GFR 22 Current Assessment & Plan Baseline Cr seems to be 1.3-1.5. Cr elevated to 2.5 yesterday, but down to 2.1 this AM. - d/c escalante - f/up tacro level and adjust tacro dose PRN - daily RFP - avoid nephrotoxins Other Liver transplant recipient (HCC) 2 Yes Overview Overview: Transplant done in [place] 2011, following up with [facility]. Patient reports to have plans t o be treated for hepatitis-C through them. Overview: Transplant done in [place] 2011, following up with [facility]. Patient reports to have plans t o be treated for hepatitis-C through them. Current Assessment & Plan S/p OLTx. Stable graft function with low level aminotransferase elevated, thought potenti ally secondary to ongoing infection. On chronic immunosuppression. - Continue tacrolimus 1mg QAM (as per GI recs), 0.5mg QPM. F/up with hematology re: tacroli mus dosing in setting of increasing Cr - Continue mycophenolate 250mg BID (recently dosed down) - Daily CMP Acute post-operative pain Unknown Current Assessment & Plan Oxy prn sched APAP Code Status: FULL Physical Exam vitals and nursing note reviewed. Constitutional: He appears well-developed and well-nourished not diaphoretic no distress HENT: Head:normocephalic and atraumatic Swelling to L side of face Eyes: EOM normal pupils are equal, round, and reactive to light Cardiovascular: normal rate, regular rhythm and normal heart sounds no murmur heard.Exam re veals no friction rub and no gallop. Pulmonary: effort normal and breath sounds normal. He has no wheezesno rales Abdominal: Abdomen is soft. There is no tenderness He exhibits no distention. Neurological: He is alert and oriented to person, place, and time. Skin: Skin is warm and dry. Psychiatric: He has a normal mood and affect. normal thought content and judgment normal. His behavior is normal. Service Anesthesia [9] Admitting provider and ICU treatment team members Provider Role Specialty Pager Shlomo Roach MD Admitting Provider Otolaryngology [id number] Quality section FAST HUG Feeding: regular Analgesia: APAP, Oxy Sedation: none Thromboprophylaxis: Heparin SQ Head of Bed: Head of Bed Ad pito Ulcer Prophylaxis: not clinically indicated Glycemic Control: not indicated DISPO: Remains [facility] Created by MARISSA MOURA DO Author:MARISSA MOURA DO [address] [id number] signed by Marissa Moura DO at 05/07/2019 10:30 A M Nikole Hartman MD - 05/07/2019 8:11 AM PDT The Department of Otolaryngology Head & Neck Surgery Progress Note Author: Nikole Valdivia MD Attending Physician: Shlomo Roach MD 05/07/2019 PROCEDURE: 05/04/2019 Excision of two cervical cutaneous cancers Reconstruction with cervical advancement flap External approach with division of the parotid duct and removal of the stone, placement of parotid duct stent INTERVAL EVENTS: No major events overnight Feeling generally well, pain is manageable Vitals reassuring overnight Eating without discomfort Cr trending down OBJECTIVE: Last 24 hour min/max Temp: 36.7 C (98.1 F) Temp Min: 36.6 C (97.9 F) Max: 36.9 C (98.4 F) Pulse: 53 Pulse Min: 53 Max: 64 Resp: 16 Resp Min: 16 Max: 20 BP: 154/86 BP Min: 135/75 Max: 186/87 SpO2: 97 % SpO2 Min: 96 % Max: 98 % Body mass index is 22.83 kg/m. PHYSICAL EXAM: Gen: awake, alert, no apparent distress HEENT: anterior tongue swelling resolved, incisions C/D/I, SARAH in left lateral neck with SS drainage, holding suction (25 yesterday) Resp: Breathing unlabored on RA Labs: Lab Results Component Value Date WBC 7.43 05/05/2019 HB 10.1 05/05/2019 HCT 31.5 05/05/2019 PLT 174 05/05/2019 MCV 92.9 05/05/2019 RDW 48.0 05/05/2019 Lab Results Component Value Date NA 138 05/07/2019 K 5.1 05/07/2019 CL 106 05/07/2019 BICARB 25 05/07/2019 BUN 50 05/07/2019 CR 1.75 05/07/2019 GLU 142 05/07/2019 CA 7.9 05/07/2019 ASSESSMENT/PLAN: Marissa Michaels Jr. Is a 59M with a history of HCV/EtOH cirrhosis s/p liver transplant, systolic HF, HTN, and CKD3 with multiple prior cutaneous SCCs who presents with left parot itis. Now POD#3 from external approach for parotid duct stone excision with stent placement, cutaneous SCC excision. Remained intubated pos-operatively for tongue swelling, now extubat ed and doing well. Awaiting bed on the floor. Medicine team primary --Aggressive oral care with mouth swabs, saliva substitute, peridex, and debridement of all visible crusts, pharyngeal/nasopharyngeal suctioning. - Continue parotid massages hourly - Continue warm compresses. Continue antibiotics Augmentin for 2 weeks from 05/05 - Continue HOB >30 deg, aspiration precautions -Stent in the parotid duct to be remove in 6 weeks by either local ENT or us (in the interi m follow up appt has been scheduled June [address] Roach for the parotid stent removal ) -Continuing SARAH drain ENT will continue to follow. Please feel free to contact us with questions or concerns Signed: Nikole Valdivia MD Otolaryngology-Head & Neck Surgery PGY-3 [facility] Pager [phone] Associated attestation - Edgar Littlejohn MD - 05/08/2019 5:31 PM PDT PATIENT NAME: Marissa Michaels [facility] MR#: [id number] : 1960 PRIMARY CARE PROVIDER: Ritesh England PA-C I have reviewed the resident's note for this day's hospitalization and I have examined Mr. Michaels. ASSESSMENT: Mr. Michaels remains hospitalized for postoperative care. PLAN: I agree with the resident's findings, assessment, and plans as outlined. Edgar Littlejohn MD, FACS Otolaryngology-Head & Neck Surgery Vikas Cooper MD - 05/06/2019 5:18 PM PDTBrief Hepatology Non Visit Note: Marissa Michaels Jr.is a 59 y.o. male withHCV/EtOH cirrhosis c/b HCC s/p KAMI-TACE wit h downstaging and subsequent OLT in 2011 at [facility] on MMF and sirolimus with subse quent recurrent HCVand multipleskin SqCCand issues with adherence to immunosuppression and engaging in medical care, as well as history of hypertension,congestiveheart failur e,and likely CKD 3, admittedon 04/25/2019 with concern for left-sided parotitison whom we are consulted to assist in post-OLT management. Transaminasescontinue to downtrend,suggesting liver injury may have been secondary to parotitis, now being treated, and less likely from rejection, alcohol, or his chronic HCV (garry acevedo possibly contributing). His liver dopplers are negative for PVT. Regarding his immunosuppression,at homehe is on sirolimus in setting of his NMSC as wel l as his CKD;however given that he has plans for surgery on 05/04, sirolimus was switched to tacrolimus (which will have less sequelae of poor wound healing), with plan to switch ba ck to sirolimus in two weeks in the post-op setting. Tacrolimus trough is 4.1 today (05/06). In setting of ANAID on CKD, would recommend Tacrolimus 1 mg qam, 0.5 mg qpm. Should also sheila nue cellcept 250 mg BID. We will continue to followperipherally. This plan was discussed and formulated with hepat ology attending, . Please call with any questions. Bean Kenneth Gastroenterology and Hepatology Fellow [id number] sui, Dina Dyson MD - 05/06/2019 4:07 PM PDT Cardiovascular Intensive Care Unit Attending Progress Note CVICU D1 Assigned #[id number] ICU Admission Reason Most Recent Value ICU Admission reason airway swelling monitoring, mechanical ventilation filed at 9 2311 Documentation Date Row Name 05/04/19 2310 ENT ENT ENT Procedures Other ENT Other transfacial parotid stone resection Hospital admission dx: L parotitis 2 Days in ICU 11 Days in Hospital Medical Decision Making 59y M with h/o OLTx (HCV/EtOH w/ HCC), HFpEF, HTN, CKD3, SCC, and L parotitis complicated by obstructing stone, who underwent L parotidectomy today (05/04) c/b tongue swelling preclud ing extubation at end of case. Overall edema appears most likely due to traction periprocedu rally, and expect gradual resolution with fluid and sitting position. Today: UOP improved overnight, did not get lasix No other issues overnight Plan: * Steroids x 24H * Multimodal analgesia * ENT following * Hx of HFpEF/HTN (depressed EF in 2017, recent TTE in care everywhere 01/2019: 60-65%): Hol ding his lisinopril given ANAID, continuing his metoprolol for now * Cr continues to be elevated to 2.2, continue to monitor, ANAID suspect secondary to ATN, al so possible injury from tacrolimus?, is auto-diuresing, lytes ok, slowly improving * OLTx following given hx of liver txp, on tacrolimus and Cellcept * SC heparin for DVT prophy * IMC status, will go back to medicine * Full Code Hospital Problems Priority POA Mental Health Methamphetamine use disorder, moderate (HCC) Yes Head/Neck Squamous cell carcinoma of skin of ear, unspecified laterality Yes * (Principal) Acute parotitis Yes Parotid sialolithiasis Yes Severe tongue swelling Unknown Cardiovascular Hypertension Yes Chronic systolic heart failure (HCC) Yes A-fib (HCC) Yes Genitourinary Acute renal injury superimposed on stage 4 chronic kidney disease (HCC) Yes Other Liver transplant recipient (HCC) 2 Yes Acute post-operative pain Unknown Service Anesthesia [9] Admitting provider and ICU treatment team members Provider Role Specialty Pager Shlomo Roach MD Admitting Provider Otolaryngology [id number] Code Status Code Status Full Code Quality section I have spent a total of 22 minutes in the direct care and management of this patient indepe ndent of any time spent teaching or performing any separately billable procedures. I reviewe d the documented findings, all data and the recent imaging available. Greater than 50% of th is time was spent on counseling and coordination of care.Seen with PA/COAGULATING OPERATOR Annabella Bartholomew. Kellen vicente see their note for details. I reviewed the documented findings, all data and the recent i maging available. Date of Service: 05/06/2019 Author:Dina Mauricio MD [address] [id number] signed by Dina Mauricio MD at 05/06/2019 4:07 PM P Annabella Reid PA-C - 05/06/2019 2:15 PM PDTFormatting of this note might be different f rom the original. Cardiovascular Intensive Care Unit Team Progress Note CVICU D1 Assigned #[id number] ICU Admission Reason Most Recent Value ICU Admission reason airway swelling monitoring, mechanical ventilation filed at 9 2311 Documentation Date Row Name 05/04/19 2310 ENT ENT ENT Procedures Other ENT Other transfacial parotid stone resection Admission dx: L parotitis 2 Days in ICU 11 Days in Hospital 24 Hour events Extubated without issue. Diet advanced with no issue and DHT removed Cr elevated in afternoon to 2.5 Code Status Code Status Full Code Active Diagnosis with Assessment & Plan Priority Class POA Mental Health Methamphetamine use disorder, moderate (HCC) Yes Head/Neck Squamous cell carcinoma of skin of ear, unspecified laterality Yes Acute parotitis Yes Parotid sialolithiasis Yes Overview Added automatically from request for surgery [id number] Current Assessment & Plan S/P transfacial parotid stone removal - Continue Augmentin x14 days - Continue HOB >30 deg, aspiration precautions - pt has parotid stent in and per ENT team, should it come out, it does not need to be repl aced * (Principal) Severe tongue swelling Unknown Current Assessment & Plan Concern for airway compromise due to tongue swelling postop. No cuffleak noted intra op a s well. Started on steroids postop and tongue swelling much improved POD1 and pt extubated w ithout issue. - continue dexamethasone for 24 hours total - ok for regular diet Cardiovascular Hypertension Yes Current Assessment & Plan Underlying essential HTN. Start on lisinopril during this hospitalization. Tolerated pres ence of concomitant ACEi and general anesthesia. - transition metop tartrate to home metop succ 100mg BID - hold lisinopril while Cr elevated Chronic systolic heart failure (HCC) Yes Overview 08/2016 TTE Normal left ventricular size with moderate concentric left ventricular hypertrophy. There is a moderate global hypokinesis of the left ventricle. Overall, left ventricular significant is moderately decreased. LVEF is 35-40%. A-fib (HCC) Yes Overview Overview: [facility] Gastroenterology note 09/07/2018: Genitourinary Acute renal injury superimposed on stage 4 chronic kidney disease (HCC) Yes Overview ER report 04/02/2019-GFR 22 Current Assessment & Plan Baseline Cr seems to be 1.3-1.5. Cr elevated to 2.5 yesterday, but down to 2.1 this AM. - d/c escalante - f/up tacro level and adjust tacro dose PRN - daily RFP - avoid nephrotoxins Other Liver transplant recipient (HCC) 2 Yes Overview Overview: Transplant done in [place] 2011, following up with [facility]. Patient reports to have plans t o be treated for hepatitis-C through them. Overview: Transplant done in [place] 2011, following up with [facility]. Patient reports to have plans t o be treated for hepatitis-C through them. Current Assessment & Plan S/p OLTx. Stable graft function with low level aminotransferase elevated, thought potenti ally secondary to ongoing infection. On chronic immunosuppression. - Continue tacrolimus 1mg BID (as per GI recs). F/up with hematology re: tacrolimus dosing in setting of increasing Cr - Continue mycophenolate 250mg BID (recently dosed down) - Daily CMP Acute post-operative pain Unknown Current Assessment & Plan Oxy prn sched APAP Code Status: FULL Physical Exam vitals reviewed. Constitutional: He appears well-developed and well-nourished not diaphoretic no distress HENT: Head:normocephalic and atraumatic Swelling to L side of face Neck: L neck SARAH with minimal serous output Cardiovascular: normal rate, regular rhythm and normal heart sounds no murmur heard.Exam re veals no friction rub and no gallop. Pulmonary: effort normal. He has no wheezesno rales Abdominal: Abdomen is soft. There is no tenderness He exhibits no distention. Neurological: He is alert and oriented to person, place, and time. Skin: Skin is warm and dry. Psychiatric: He has a normal mood and affect. Service Anesthesia [9] Admitting provider and ICU treatment team members Provider Role Specialty Pager Shlomo Roach MD Admitting Provider Otolaryngology [id number] Quality section FAST HUG Feeding: regular Analgesia: oxy, apap Sedation: none Thromboprophylaxis: Heparin SQ Head of Bed: Head of Bed Ad pito Ulcer Prophylaxis: not clinically indicated Glycemic Control: not indicated I have spent a total of 35 Minutes independently in the direct care and management of th is patient.Time is independent of any time spent teaching or performing any separately billa ble procedures. I reviewed the documented findings, all data and the recent imaging availabl e. Date of Service: 05/06/2019 TINO Newell PA-C Author:Annabella Bartholomew PA-C [address] [phone] signed by Annabella Bartholomew PA-C at 05/06/2019 2:18 PM Juanjose Valero PA-C - 05/06/2019 8:38 AM PDTFormatting of this note might be differen t from the original. DOS: 05/06/2019 Head and Neck Surgery Inpatient Daily Progress Note: Primary Care Provider: Ritesh England PA-C Admission Date: 04/25/2019 MARISSA MICHAELS JR., [id number] Hospital Day #11 PROCEDURE: Dr. Shlomo Roach (ENT) 05/04/2019 Cervicofacial advancement rotation flap of approximately 100 sq cm. Excision of 2 skin can cers approximately 5 x 4 cm on the neck skin with a cervicofacial advancement rotation flap used to reconstruct the neck skin. Identification of a stone in the parotid duct. External approach with division of the parotid duct and removal of the stone and stenting of the sto ne with multiple probing intraorally and through the stone excise site. SUBJECTIVE INTERVAL EVENTS: Extubated yesterday, doing well Tolerating PO Cr trending gradually down to 2.21. Good UOP OBJECTIVE Last 24 hour min/max Temp: 36.6 C (97.9 F) Temp Min: 36.6 C (97.9 F) Max: 37 C (98.6 F) Pulse: 73 Pulse Min: 70 Max: 97 Resp: 18 Resp Min: 8 Max: 22 BP: 169/85 BP Min: 106/68 Max: 169/85 SpO2: 98 % SpO2 Min: 94 % Max: 99 % Body mass index is 22.8 kg/m. Intake/Output Summary (Last 24 hours) at 05/06/2019 0838 Last data filed at 05/06/2019 0745 Gross per 24 hour Intake 2039.73 ml Output 2415 ml Net -375.27 ml PHYSICAL EXAM: Gen: awake, alert in NAD HEENT: anterior tongue swelling improved, incisions C/D/I, SARAH in left lateral neck with SS drainage, holding suction (45 ml) Resp: Breathing unlabored on RA LABS: Recent Labs 05/04/19 18305/05/19 0633 05/05/19 1611 05/06/19 0013 NA 140 -- 140 136 138 K 4.6 -- 4.1 4.4 4.8 CL 108 -- 111* 105 107 BICARB 24 -- 16* 18* 19* BUN 30* -- 33* 48* 49* CR 1.79* -- 2.17* 2.51* 2.21* GLU 138* < > 149* 137* 189* CA 8.1* -- 7.2* 8.0* 7.9* ALB 2.9* -- 2.4* -- 2.9* < > = values in this interval not displayed. Recent Labs 05/04/191835 MG 1.4* Recent Labs 05/04/19 18305/05/19 0526 WBC 9.74 7.43 RBC 4.37* 3.39* HB 12.4* 10.1* HCT 38.7* 31.5* PLT 210 174 CBG's Recent Labs 04/30/19 0700 05/01/19 0519 05/02/19 0500 05/03/19 0700 05/04/19 0500 05/04/19 18305/04/19 1841 05/05/19 0633 05/05/19 1611 05/06/19 0013 GLU 104* 102* 102* 92 104* 138* 142* 149* 137* 189* ASSESSMENT/PLAN: Marissa Michaels Jr. Is a 59M with HCV/EtOH cirrhosis s/p OLTx (2011) systolic HF, HTN, and CKD3 with multiple prior SCC who presents with left parotitis. Transferred to medicine service this am for further management of his co-morbidities and active issues currently HTN , Acute on CKD and liver transplant patient underwent the above mentioned procedure transfer red to ICU in the setting of significant tongue swelling intraoperatively --Aggressive oral care with mouth swabs, saliva substitute, peridex, and debridement of all visible crusts, pharyngeal/nasopharyngeal suctioning. - Parotid massages should be continued at a rate of NO FEWER than hourly, and even better i f more often. Enlist your CNAs or patten volunteers to help achieve this goal. -Typically lidia ents would be encouraged to do this 6 times an hour. - Continue warm compresses. Continue antibiotics Augmentin for 2 weeks from 05/05 - Continue HOB >30 deg, aspiration precautions -Stent in the parotid duct to be remove in 6 weeks by either local ENT or us (in the interi m follow up appt has been scheduled June [address] Roach for the parotid stent removal ) -Drain continue for now -ENT team will continue to follow along Code Status: FULL JUANJOSE GUPTA PA-C Otolaryngology-Head and Neck Surgery [facility] [place] Pager [id number] Dina Quintanilla M D - 05/05/2019 4:37 PM PDT Cardiovascular Intensive Care Unit Attending Progress Note CVICU D1 Assigned #[id number] ICU Admission Reason Most Recent Value ICU Admission reason airway swelling monitoring, mechanical ventilation filed at 9 [phone] Documentation Date Row Name 05/04/19 1880 ENT ENT ENT Procedures Other ENT Other transfacial parotid stone resection Hospital admission dx: L parotitis 1 Days in ICU 10 Days in Hospital Medical Decision Making 59y M with h/o OLTx (HCV/EtOH w/ HCC), HFpEF, HTN, CKD3, SCC, and L parotitis complicated by obstructing stone, who underwent L parotidectomy today (05/04) c/b tongue swelling preclud ing extubation at end of case. Overall edema appears most likely due to traction periprocedu rally, and expect gradual resolution with fluid and sitting position. Today: Was extubated this AM, currently HD stable and in no respiratory distress Plan: * Steroids x 24H * Multimodal analgesia * ENT following, tongue edema is improved * Hx of HFpEF/HTN (depressed EF in 2017, recent TTE in care everywhere 01/2019: 60-65%): con tinue lisinopril/lower dose metoprolol * Cr continues to be elevated to 2.2, continue to monitor, ANAID suspect secondary to ATN, al so possible injury from tacrolimus?. Will give fluids, if no improvement, watch Is and Os, d iurese if needed * Will consult OLTx to manage tacrolimus in the setting of ANAID * SC heparin for DVT prophy * Will talk with ENT about diet/need for DHT * CVICU, can probably make IMC status later today * Full Code Hospital Problems Priority POA Mental Health Methamphetamine use disorder, moderate (HCC) Yes Head/Neck Squamous cell carcinoma of skin of ear, unspecified laterality Yes * (Principal) Acute parotitis Yes Parotid sialolithiasis Yes Severe tongue swelling Unknown Cardiovascular Hypertension Yes Chronic systolic heart failure (HCC) Yes A-fib (HCC) Yes Genitourinary Acute renal injury superimposed on stage 4 chronic kidney disease (HCC) Yes Other Liver transplant recipient (HCC) 2 Yes Acute post-operative pain Unknown Service Anesthesia [9] Admitting provider and ICU treatment team members Provider Role Specialty Pager Shlomo Roach MD Admitting Provider Otolaryngology [id number] Code Status Code Status Full Code Quality section Escalante necessity reviewed: Plan to DC today I have spent a total of 33 minutes in the direct care and management of this patient indepe ndent of any time spent teaching or performing any separately billable procedures. I reviewe d the documented findings, all data and the recent imaging available. Greater than 50% of th is time was spent on counseling and coordination of care.Seen with PA/COAGULATING OPERATOR Annabella Glass. Kellen vicente see their note for details. I reviewed the documented findings, all data and the recent i maging available. Date of Service: 05/05/2019 Author:Dina Mauricio MD [address] [address] [place] [id number] signed by Dina Mauricio MD at 05/05/2019 4:37 PM P Annabella Reid PA-C - 05/05/2019 12:39 PM PDTFormatting of this note might be different f rom the original. Cardiovascular Intensive Care Unit Team Progress Note CVICU D1 Assigned #[id number] ICU Admission Reason Most Recent Value ICU Admission reason airway swelling monitoring, mechanical ventilation filed at 9 2311 Documentation Date Row Name 05/04/19 2310 ENT ENT ENT Procedures Other ENT Other transfacial parotid stone resection Admission dx: L parotitis 1 Days in ICU 10 Days in Hospital 24 Hour events Admitted to CVICU, intubated and sedated. Started on dexamethasone Kept intubated overnight SBT this AM with positive cuff leak. Extubated with no issues. Code Status Code Status Full Code Active Diagnosis with Assessment & Plan Priority Class POA Mental Health Methamphetamine use disorder, moderate (HCC) Yes Head/Neck Squamous cell carcinoma of skin of ear, unspecified laterality Yes * (Principal) Acute parotitis Yes Parotid sialolithiasis Yes Overview Added automatically from request for surgery [id number] Current Assessment & Plan S/P transfacial parotid stone removal - Continue Augmentin, duration as per ENT - Continue HOB >30 deg, aspiration precautions Severe tongue swelling Unknown Current Assessment & Plan Concern for airway compromise due to tongue swelling postop. No cuffleak noted intra op a s well. Started on steroids postop and tongue swelling much improved this AM and pt extubate d without issue. - continue dexamethasone for 24 hours total - bedside swallow eval, then ok for PO Cardiovascular Hypertension Yes Current Assessment & Plan Underlying essential HTN. Start on lisinopril during this hospitalization. Tolerated pres ence of concomitant ACEi and general anesthesia. - hold metop and lisinopril post op, but will likely restart when off propofol Chronic systolic heart failure (HCC) Yes Overview 08/2016 TTE Normal left ventricular size with moderate concentric left ventricular hypertrophy. There is a moderate global hypokinesis of the left ventricle. Overall, left ventricular significant is moderately decreased. LVEF is 35-40%. A-fib (HCC) Yes Overview Overview: [facility] Gastroenterology note 09/07/2018: Genitourinary Acute renal injury superimposed on stage 4 chronic kidney disease (HCC) Yes Overview ER report 04/02/2019-GFR 22 Current Assessment & Plan Baseline Cr seems to be 1.3-1.5. Cr elevated to 2.14 this AM. Likely ATN from surgery. - 500ml LR now - continue escalante - f/up with hematology team re: any need to change tacro dose - daily RFP Other Liver transplant recipient (HCC) 2 Yes Overview Overview: Transplant done in [place] 2011, following up with [facility]. Patient reports to have plans t o be treated for hepatitis-C through them. Overview: Transplant done in [place] 2011, following up with [facility]. Patient reports to have plans t o be treated for hepatitis-C through them. Current Assessment & Plan S/p OLTx. Stable graft function with low level aminotransferase elevated, thought potenti ally secondary to ongoing infection. On chronic immunosuppression. - Continue tacrolimus 1mg BID (as per GI recs). F/up with hematology re: tacrolimus dosing in setting of increasing Cr - Continue mycophenolate 250mg BID (recently dosed down) - Daily CMP Acute post-operative pain Unknown Current Assessment & Plan IV HM PRN Oxy prn sched APAP Code Status: FULL Physical Exam vitals reviewed. Constitutional: He appears well-developed and well-nourished not diaphoretic no distress HENT: Head:normocephalic and atraumatic Tongue with mild swelling Neck: Incision site c/d/i. L neck SARAH drain draining moderate SS fluid Cardiovascular: normal rate and regular rhythm no murmur heard.Exam reveals no friction rub and no gallop. Pulmonary: Patient is intubated He has no wheezesno rales Abdominal: Abdomen is soft. There is no tenderness He exhibits no distention. Musculoskeletal: He exhibits no edema. Neurological: RASS -1 on propofol gtt Skin: Skin is warm and dry. Service Anesthesia [9] Admitting provider and ICU treatment team members Provider Role Specialty Pager Shlomo Roach MD Admitting Provider Otolaryngology [id number] Quality section Escalante necessity reviewed: Hourly/Accurate measurement of urinary output for clinical manage ment of critically ill patients FAST HUG Feeding: regular Analgesia: multimodal Sedation: none Thromboprophylaxis: Heparin SQ Head of Bed: Head of Bed Ad pito Ulcer Prophylaxis: not clinically indicated Glycemic Control: not indicated I have spent a total of 50 Minutes independently in the direct care and management of th is patient.Time is independent of any time spent teaching or performing any separately billa ble procedures. I reviewed the documented findings, all data and the recent imaging availabl e. Date of Service: 05/05/2019 TINO Newell PA-C Author:Annabella Bartholomew PA-C [address] [id number] signed by Annabella Bartholomew PA-C at 05/05/2019 12:44 PM Juanjose Valero PA-C - 05/05/2019 10:08 AM PDTFormatting of this note might be differen t from the original. DOS: 05/05/2019 Head and Neck Surgery Inpatient Daily Progress Note: Primary Care Provider: Ritesh England PA-C Admission Date: 04/25/2019 MARISSA MICHAELS JR., [id number] Hospital Day #10 PROCEDURE: Dr. Shlomo Roach (ENT) 05/04/2019 Cervicofacial advancement rotation flap of approximately 100 sq cm. Excision of 2 skin can cers approximately 5 x 4 cm on the neck skin with a cervicofacial advancement rotation flap used to reconstruct the neck skin. Identification of a stone in the parotid duct. External approach with division of the parotid duct and removal of the stone and stenting of the sto ne with multiple probing intraorally and through the stone excise site. SUBJECTIVE INTERVAL EVENTS: Tongue swelling improving. Continues to be intubated and sedated On Decadron OBJECTIVE Last 24 hour min/max Temp: 36.9 C (98.5 F) Temp Min: 36.6 C (97.9 F) Max: 37.3 C (99.1 F) Pulse: 74 Pulse Min: 48 Max: 79 Resp: 8 Resp Min: 8 Max: 22 BP: 106/68 BP Min: 85/61 Max: 167/96 SpO2: 97 % SpO2 Min: 97 % Max: 100 % Body mass index is 23.97 kg/m. Intake/Output Summary (Last 24 hours) at 05/05/2019 1008 Last data filed at 05/05/2019 0900 Gross per 24 hour Intake 3381.45 ml Output 476 ml Net 2905.45 ml PHYSICAL EXAM: Gen: Intubated and sedated HEENT: Notable anterior tongue swelling gradually improving, less firm, incisions C/D/I, SARAH in left lateral neck with SS drainage, holding suction (25 ml) Resp: Intubated on mechanical ventillation LABS: Recent Labs 05/04/19 0500 05/04/19 1836 05/04/19 1841 05/05/19 0633 NA 138 140 -- 140 K 4.6 4.6 -- 4.1 CL 105 108 -- 111* BICARB 26 24 -- 16* BUN 29* 30* -- 33* CR 1.46* 1.79* -- 2.17* GLU 104* 138* 142* 149* CA 8.6 8.1* -- 7.2* ALB 2.8* 2.9* -- 2.4* Recent Labs 05/04/19 183 MG 1.4* Recent Labs 05/04/19 1836 05/05/19 0526 WBC 9.74 7.43 RBC 4.37* 3.39* HB 12.4* 10.1* HCT 38.7* 31.5* PLT 210 174 CBG's Recent Labs 04/29/19 0414 04/30/19 0700 05/01/19 0519 05/02/19 0500 05/03/19 0700 05/04/19 0500 05/04/19 1836 05/04/19 1841 05/05/19 0633 GLU 101* 104* 102* 102* 92 104* 138* 142* 149* ASSESSMENT/PLAN: Marissa Michaels . Is a 59M with HCV/EtOH cirrhosis s/p OLTx (2011) systolic HF, HTN, and CKD3 with multiple prior SCC who presents with left parotitis. Transferred to medicine service this am for further management of his co-morbidities and active issues currently HTN , Acute on CKD and liver transplant patient underwent the above mentioned procedure transfer red to ICU in the setting of significant tongue swelling intraoperatively -Greatly appreciate CVICU care: Weaned sedation and extubate per ICU protocol --Aggressive oral care with mouth swabs, saliva substitute, peridex, and debridement of all visible crusts, pharyngeal/nasopharyngeal suctioning. - Parotid massages should be continued at a rate of NO FEWER than hourly, and even better i f more often. Enlist your CNAs or patten volunteers to help achieve this goal. -Typically lidia ents would be encouraged to do this 6 times an hour. - Continue warm compresses. Continue antibiotics Augmentin for 2 weeks from 05/05 - Continue HOB >30 deg, aspiration precautions -Stent in the parotid duct to be remove in 6 weeks by either local ENT or us. -Continue Decadron for now -Drain continue for now -ENT team will continue to follow along Code Status: FULL JUANJOSE GUPTA PA-C Otolaryngology-Head and Neck Surgery [facility] Pager [phone] Sharif Akins MD - 05/04/2019 9:57 PM PDTOTOLARYNGOLOGY/HEAD & NECK SURGERY POSTOPERATIVE CHECK Procedure: 05/04/2019 Transfacial excision of left parotid stones S: - Intubated, on ventilator - Anterior tongue swelling - DHT in place in right naris Exam BP 114/73 | Pulse 69 | Temp 36.7 C (98.1 F) (Axillary) | Resp 13 | Ht 1.727 m (5' 7 .99") | Wt 67.6 kg (149 lb) | SpO2 100% | BMI 22.66 kg/m | BSA 1.8 m Gen: Resting comfortably, NAD HEENT: Notable anterior tongue swelling, incisions C/D/I, SARAH in left lateral neck with SS d rainage, holding suction Resp: Intubated on mechanical ventillation A/P: Continues on vent, recovering appropriately in ICU. - Continue current care - IV steroids - Reassess for extubation tomorrow Shlomo Roach MD is the attending of record. Sharif Bo MD Otolaryngology-Head & Neck Surgery PGY-2 [facility] Pager [phone] Shlomo Enamorado MD - 6:44 PM PDTClinic Date:05/04/2019 He is a very pleasant fellow that has been in the hospital for a period of time. When seei ng him daily, his inflammation has gone down. He still has a fair bit of pain and discomfor t. He still swells up and down. He has a large stone in there and requires an external int raoral approach. Between Dr. Terrazas and myself, we are going to excise the stones, and I think that is the only way to get his infection settled down. If we can open up his parotid duct and stent it, then we will do that. I think a parotidectomy in this setting is going to be quite difficult because of the inflammation, infection, etc. Discussed all of this with him, injury to the facial nerve, morbidity of the surgery, failu re, etc. He understood the risks and benefit, and we are going to proceed. Shlomo Roach MD MW/MODL /[id number] signed by Shlomo Roach MD at 05/05/2019 10:43 AM Everardo Renee MD - 05/04/2019 1:35 PM PDTFormatting of this note might be different fro m the original. GENERAL MEDICINE PROGRESS NOTE Author: Everardo Pardo MD Attending Physician: María Stacy MD Hospital Day: 9 ID: Marissa Michaels . is a 59 y.o. malew/ hx ofliver transplant on immunosupression, HTN, CKD3 admitted for parotitis. 24 Hour Events: NAEO Subjective: Mild parotid pain. Feels well otherwise. Denies nausea, fevers, chills, SoB. Active medications: [MAR Hold] acetaminophen (TYLENOL) tablet 1,000 mg, 1,000 mg, oral, TID [OCT Hold] albuterol (PROVENTIL, VENTOLIN) 90 mcg/actuation inhaler 1-2 puff, 1-2 puff, inh alation, Q6H PRN [MAR Hold] amoxicillin-clavulanate (AUGMENTIN) 500-125 mg 500 mg, 500 mg, oral, TID [MAR Hold] bisacodyl (DULCOLAX) suppository 10 mg, 10 mg, rectal, DAILY PRN [MAR Hold] calcium carbonate chewable (TUMS) tablet 400 mg elemental, 1,000 mg total salt, oral, Q2H PRN [MAR Hold] chlorhexidine (PERIDEX) mouthwash 15 mL, 15 mL, oral, Q4H WA [MAR Hold] hydrALAZINE (APRESOLINE) injection 10 mg, 10 mg, intravenous, Q4H PRN [OCT Hold] hydrOXYzine pamoate (VISTARIL) capsule 50 mg, 50 mg, oral, Q6H PRN [OCT Hold] lisinopril (PRINIVIL) tablet 10 mg, 10 mg, oral, DAILY [OCT Hold] metoprolol succinate (TOPROL-XL) tablet 100 mg, 100 mg, oral, DAILY [OCT Hold] mycophenolate (CELLCEPT) capsule 250 mg, 250 mg, oral, BID [OCT Hold] nicotine (NICOTROL) 14 mg/24 hr 1 patch, 1 patch, transdermal, DAILY [OCT Hold] nicotine polacrilex (COMMIT) lozenge 2 mg, 2 mg, oral, Q1H PRN [OCT Hold] ondansetron ODT (ZOFRAN ODT) tablet 8 mg, 8 mg, oral, Q12H PRN [OCT Hold] oxyCODONE (immediate release) (ROXICODONE) tablet 5 mg, 5 mg, oral, Q4H PRN [OCT Hold] polyethylene glycol (MIRALAX) packet 34 g, 34 g, oral, TID PRN [OCT Hold] prochlorperazine (COMPAZINE) injection 5-10 mg, 5-10 mg, intravenous, Q6H PRN [OCT Hold] prochlorperazine (COMPAZINE) tablet 5-10 mg, 5-10 mg, oral, Q6H PRN [MAR Hold] saliva substitute (MOUTH KOTE) spray 4 spray, 4 spray, oral, PRN [OCT Hold] senna-docusate (SENOKOT S) 8.6-50 mg 1 tablet, 1 tablet, oral, BID [OCT Hold] tacrolimus capsule 1 mg, 1 mg, oral, BID glycopyrrolate (PF) (ROBINUL) injection soln, , , INTRAPROCEDURE PRN PHENYLEPHrine 100 mcg/mL IV syringe, , , INTRAPROCEDURE PRN Physical Examination: Last 24 hour min/max Temp: 37 C (98.6 F) Temp Min: 36.2 C (97.2 F) Max: 37 C (98.6 F) Pulse: 48 Pulse Min: 48 Max: 62 Resp: 15 Resp Min: 15 Max: 16 BP: 155/83 BP Min: 140/75 Max: 174/96 SpO2: 97 % SpO2 Min: 97 % Max: 99 % Body mass index is 22.66 kg/m. Intake/Output Summary (Last 24 hours) at 05/04/2019 1335 Last data filed at 05/04/2019 0422 Gross per 24 hour Intake 490 ml Output 650 ml Net -160 ml General: Lying in bed in NAD HEENT: Right flap repair. Left parotid swelling, tenderness, and induration stable. MMM. Lungs: Breathing comfortably on RA, normal respiratory effort. Cardiovascular: RRR holosystolic murmur, well perfused Abdomen: soft, globally mildly tender, nondistended, reducible hernia Extremities: wwp, no BLE edema Skin: Many actinic keratoses on skin Neuro: A&Ox4. Laboratory: Chemistries: Last 72 Hours (or 3 results) - Refreshable Recent Labs 05/02/19 0500 05/03/19 0700 05/04/19 0500 NA 137 137 138 K 4.2 4.9 4.6 CL 105 105 105 BICARB 29 28 26 BUN 25* 26* 29* EGFRAFRICAN 55* 58* 59* CR 1.57* 1.50* 1.46* GLU 102* 92 104* CA 8.9 9.1 8.6 Micro: None Imaging: None Assessment and Plan Marissa Morenostefanie June. is a 59 y.o. malew/ hx ofliver transplant on immunosupression, HTN , CKD3 admitted for parotitis. #Parotitis Stable. Sialendoscopy today. -Continue amoxicillin/clavulante 500/125mg TID -Continue parotid massage -Saliva substitute spray PRN #CKD3 Per chart review, baseline creatinine around 1.45. Cr trending down after transient bump fr om starting lisinopril. At baseline -Refer for outpatient Nephrology -Continue lisinopril to 10mg daily #HTN Blood pressure still not optimally controlled. We are waiting for the lisinopril to take fu ll effect before making more changes. Considering upping to 20mg daily rather than adding a third agent. Thiazide would be next choice. -Continue metoprolol succinate 100mg daily -Continue lisinopril to 10mg daily -Hydralazine 10mg prn SBP>180 #Liver transplant LFTs stable. Hepatology following. Recommended switch back to sirolimus two weeks post-surg cristopher. -Continue tacrolimus 1mg BID -Continuemycophenolate to 250 BID -Hold sirolimus -Hepatology on board, appresciate recommendations -Daily CMP #Actinic keratoses S/p 5-FU and calcipotriene creams. Has some desquamation on skin, not reporting any skin co mplaints -Follow-up with transplant skin clinic Fluids/Electrolytes/Nutrition:PO Analgesia:APAP, oxycodone Thromboembolic ppx:SCDs Head of bed elevation:ad pito Ulcer ppx: not indicated Glucose control: not indicated GI ppx:senna-docusate, miralax IV/Airways/Catheters:PIV CODE:Full SDM: Sister Shruthi [phone] The patient was discussed with attending physician, Dr. María Stacy MD, who agrees with the above assessment and plan. Everardo Pardo MD Neurology PGY-1 P Associated attestation - María Stacy MD - 05/04/2019 5:17 PM PDTGeneral Medicine Attending Note ADMIT DATE: 04/25/2019 2:11 PM TODAY'S DATE: 05/04/2019 (HOSPITAL DAY 9) A resident assisted with documenting this service. I saw the patient and reviewed and verif ied all information documented by the resident, and made modifications to such information, when appropriate. No new issues. Swelling is under control Exam notable fora ctually decreased parotid swelling on R To OR today for step 1-sialendoscopy. Discharge planning:Surgery tomorrow. Anticipate possible weekend dc? Will need help arrangi ng as no means of transporation. Please refer to the note from Dr. Pardo for additional details María Stacy MD [facility] Division of Hospital Medicine Vikas Cooper MD - 05/03/2019 1:31 PM PDTBrief Hepatology Non Visit Note: Marissa Michaels Jr.is a 59 y.o. male withHCV/EtOH cirrhosis c/b HCC s/p KAMI-TACE wit h downstaging and subsequent OLT in 2011 at [facility] on MMF and sirolimus with subse quent recurrent HCVand multipleskin SqCCand issues with adherence to immunosuppression and engaging in medical care, as well as history of hypertension,congestiveheart failur e,and likely CKD 3, admittedon 04/25/2019 with concern for left-sided parotitison whom we are consulted to assist in post-OLT management. Transaminasescontinue to downtrend,suggesting liver injury may have been secondary to parotitis, now being treated, and less likely from rejection, alcohol, or his chronic HCV (t curtis possibly contributing). His liver dopplers are negative for PVT. Regarding his immunosuppression, at home he is on sirolimus in setting of his NMSC as well as his CKD; however given that he has plans for surgery on 05/04, sirolimus was switched to tacrolimus (which will have less sequelae of poor wound healing), with plan to switch back t o sirolimus in two weeks in the post-op setting. Tacrolimus trough is 4.5 (05/02); would cont inue 1 mg BID dosing. Should also continue cellcept 250 mg BID. We will continue to follow peripherally. This plan was discussed and formulated with hepato logy attending, . Please call with any questions. Vikas Cooper Gastroenterology and Hepatology Fellow [phone] María Brooks MD - 05/03/2019 11:54 AM PDTGeneral Medicine Attending Note ADMIT DATE: 04/25/2019 2:11 PM TODAY'S DATE: 05/03/2019 (HOSPITAL DAY 8) A student and a resident assisted with documenting this service. I saw the patient and revi ewed and verified all information documented by the student and resident, and made modificat ions to such information, when appropriate. Doing well. Slept well. Doing his massages today Exam as noted Discharge planning:Hopefully after surgery, perhaps Fri? Final date TBD by ENT. Please refer to the note from Dr. Pardo/LUANA Veras for additional details María Stacy MD [facility] Division of Hospital Medicine an Veras - 05/03/2019 11:37 AM PDT GENERAL MEDICINE MEDICAL STUDENT PROGRESS NOTE Author: Han Veras Attending Physician: María Stacy MD Hospital Day: 8 ID: Marissa Michaels Jr. is a 59 y.o. male with a history of liver transplant on immunosu ppression, HFrEF, HTN, CKD3 and squamous cell carcinoma who was admitted for left sided paro titis with an obstructing stone and dilated duct. 24 Hour Events: - No acute events. Subjective: Mr. Michaels is feeling more rested this morning after he was able to have some mostly undistu rbed sleep. He is in good spirits and anticipating resolution of his parotid stone with the ENT procedure scheduled for tomorrow. His pain is well controlled and he is continuing hourl y parotid massages while awake. He does not have any new pain, swelling, or discharge in his mouth or over the parotid gland. Active medications: acetaminophen (TYLENOL) tablet 1,000 mg, 1,000 mg, oral, TID albuterol (PROVENTIL, VENTOLIN) 90 mcg/actuation inhaler 1-2 puff, 1-2 puff, inhalation, Q6 H PRN amoxicillin-clavulanate (AUGMENTIN) 500-125 mg 500 mg, 500 mg, oral, TID bisacodyl (DULCOLAX) suppository 10 mg, 10 mg, rectal, DAILY PRN calcium carbonate chewable (TUMS) tablet 400 mg elemental, 1,000 mg total salt, oral, Q2H P RN chlorhexidine (PERIDEX) mouthwash 15 mL, 15 mL, oral, Q4H WA hydrALAZINE (APRESOLINE) injection 10 mg, 10 mg, intravenous, Q4H PRN hydrOXYzine pamoate (VISTARIL) capsule 50 mg, 50 mg, oral, Q6H PRN lisinopril (PRINIVIL) tablet 10 mg, 10 mg, oral, DAILY metoprolol succinate (TOPROL-XL) tablet 100 mg, 100 mg, oral, DAILY mycophenolate (CELLCEPT) capsule 250 mg, 250 mg, oral, BID nicotine (NICOTROL) 14 mg/24 hr 1 patch, 1 patch, transdermal, DAILY nicotine polacrilex (COMMIT) lozenge 2 mg, 2 mg, oral, Q1H PRN ondansetron ODT (ZOFRAN ODT) tablet 8 mg, 8 mg, oral, Q12H PRN oxyCODONE (immediate release) (ROXICODONE) tablet 5 mg, 5 mg, oral, Q4H PRN polyethylene glycol (MIRALAX) packet 34 g, 34 g, oral, TID PRN prochlorperazine (COMPAZINE) injection 5-10 mg, 5-10 mg, intravenous, Q6H PRN prochlorperazine (COMPAZINE) tablet 5-10 mg, 5-10 mg, oral, Q6H PRN saliva substitute (MOUTH KOTE) spray 4 spray, 4 spray, oral, PRN senna-docusate (SENOKOT S) 8.6-50 mg 1 tablet, 1 tablet, oral, BID tacrolimus capsule 1 mg, 1 mg, oral, BID Physical Examination: Last 24 hour min/max Temp: 36.7 C (98.1 F) Temp Min: 36.4 C (97.5 F) Max: 36.7 C (98.1 F) Pulse: 55 Pulse Min: 55 Max: 65 Resp: 16 Resp Min: 16 Max: 16 BP: 148/71 BP Min: 146/74 Max: 157/82 SpO2: 98 % SpO2 Min: 96 % Max: 98 % Body mass index is 22.66 kg/m. Intake/Output Summary (Last 24 hours) at 05/03/2019 1147 Last data filed at 05/03/2019 1010 Gross per 24 hour Intake 1610 ml Output 1200 ml Net 410 ml General: Sitting comfortably in bed eating breakfast. HEENT: Right sided flap repair. Swelling and erythema anterior to left ear, unchanged. Firm and mildly tender to palpation. No stone visualized at duct opening and no discharge or flu id with palpation from duct. Lungs: Normal respiratory effort and lungs are CTAB. Cardiovascular: Regular rate, normal S1 and S2, 2/6 systolic murmur at the left lower gant al border. Abdomen: soft, nontender, nondistended, +BS. Extremities: wwp, No BLE edema Skin: Warm, dry, clear. Diffuse scaly macules on upper extremities and face, and some peeli ng noted where topical cream medications applied. Neuro: A&Ox4. Laboratory: Chemistries: Last 72 Hours (or 3 results): Recent Labs 05/01/19 0519 05/02/19 0500 05/03/19 0700 NA 139 137 137 K 4.6 4.2 4.9 CL 104 105 105 BICARB 29 29 28 BUN 23* 25* 26* EGFRAFRICAN 54* 55* 58* CR 1.59* 1.57* 1.50* GLU 102* 102* 92 CA 8.7 8.9 9.1 Liver Tests: Last 72 hours (or 3 results) Recent Labs 05/01/19 0519 05/02/19 0500 05/03/19 0700 AST 69* 63* 73* ALT 42 40 41 TBILI 0.3 0.3 0.3 AP 143* 135* 151* ALB 2.8* 2.9* 3.0* TP 7.1 7.4 7.7 Micro: - none. Imaging: - none. Assessment and Plan Marissa Michaels Jr. is a 59 y.o. Male with a history of liver transplant on immunosuppre ssion, HFrEF, HTN, CKD3 and squamous cell carcinoma who is undergoing antibiotic treatment f or left sided parotitis and awaiting surgical intervention for an obstructing parotid stone and dilated duct. # Left-sided Parotitis Appears stable with antibiotic treatment and awaiting stone removal by ENTon 05/05. - NPO at midnight on 05/04 for sialendoscopy. - Surgery scheduled for 05/05 for parotid stone removal with sialendoscopy on 05/04. - Continue oral antibiotics until surgery per ENT recommendations: amoxicillin-clavulanate 500mg TID. - Oral care as outlined in ENT note. - Parotid massage at minimum once per hour while awake. Appreciate RN assistance for remind ers as necessary during the day. - Oxycodone 5mg g2pygho PRN for pain. # Liver transplant, elevated LFT's Hepatology has ongoing workup. Daily CMP's continue to show a stable and reassuring trend i n LFT's. - Hepatology continuing to follow, LFT workup as per their note. - Tacrolimus 1 mg BID. Will return to sirolimus at 2 week post-surgery per hepatology rec ommendations. - Mycophenolate 250mgBID per hepatology recommendations. - Daily CMP per hepatology recommendations. # CKD3 Patient's creatinine is stable at 1.50 today from 1.57 on 05/02. Patient's baseline creatini ne of 1.45 as per chart review. - Lisinopril 10mg daily. - Monitor renal function with daily CMP as part of hepatology workup. - Referral for outpatient nephrology on discharge. # Hypertension Blood pressures have consistently been in 140's to 160's systolic with current regimen and increased lisinopril to 10mg on 05/01. - Monitor blood pressure readings as scheduled today. - Consider increasing lisinopril to 15mg if continued elevation. - Metoprolol succinate 100 mg daily. - Lisinopril 10 mg daily as above. - Hydralazine 10mg PRN for SBP >180. # ActinicKeratoses - Dermatology consulted on 04/27 and recommended: - Finished course of Calcipotriene 0.005% ointment with 5-FU 5% cream (mixed 1:1) twice da mariusz for 4 days (started on 04/28, end on 05/02). - Follow-up in transplant skin clinic to re-establish care. # Anxiety Appears to be chronic in nature and improving. - Hydroxyzine 50mg b5vxhui PRN. Diet/Nutrition: Regular diet. Activity: Up ad pito. Access/Lines: PIV in place. Consults: ENT, hepatology. DVT ppx: SCD's. GI/BM ppx: senna-docusate, miralax PRN. Pain: oxycodone and acetaminophen. Dispo: Following surgery. CODE:Full The patient was discussed with attending physician, Dr. María Stacy MD, who agrees with the above assessment and plan. Han Veras MS3 Associated attestation - Everardo Pardo MD - 05/03/2019 4:44 PM PDTI personally inte rviewed the patient, performed the churchill elements of the physical examination, have developed an updated assessment and plan together with the medical student, Han Veras. I agree with the plans as documented. Assessment: Marissa Michaels is a 59 y.o. malew/ hx of liver transplant on immunosupression, HTN, CKD3 admitted for parotitis. Doing well. Condition stable. Had transient bump in Cr from st arting lisinopril, trending down. LFTs stable. Parotid still swollen and painful Plan: -Continue Augmentin, parotid massage -Continue lisinopril 10mg. -NPO midnight for sialendonscopy tomorrow Everardo Pardo MD Neurology PGY-1 P: [id number] taylor PA-C - 05/03/2019 8:18 AM PDTFormatting of this note might be di fferent from the original. DOS: 05/03/2019 Head and Neck Surgery Inpatient Daily Progress Note: Primary Care Provider: Ritesh England PA-C Admission Date: 04/25/2019 MARISSA MICHAELS JR., [id number] Hospital Day #8 SUBJECTIVE INTERVAL EVENTS: No acute events overnight AF, VSS OBJECTIVE Last 24 hour min/max Temp: 36.4 C (97.5 F) Temp Min: 36.4 C (97.5 F) Max: 36.7 C (98.1 F) Pulse: 65 Pulse Min: 57 Max: 65 Resp: 16 Resp Min: 16 Max: 16 BP: 157/82 BP Min: 157/82 Max: 173/94 SpO2: 96 % SpO2 Min: 96 % Max: 99 % Body mass index is 22.66 kg/m. Intake/Output Summary (Last 24 hours) at 05/03/2019 0818 Last data filed at 05/03/2019 0420 Gross per 24 hour Intake 1540 ml Output 700 ml Net 840 ml PHYSICAL EXAM: General: Alert, comfortable, NAD HEENT: Face: multiple lesions and discoloration from skin cancer resections. Right side facial ne rve paresis. Oral Cavity: Minimal serous discharge expressed from the left Cassandra's duct with pressure on the left parotid gland. Dentition -poorrepair Parotid glands:mild swelling of left parotid gland. Neck; multiple skin lesions and discolorations Respiratory: breathing non-labored on RA Abdomen: soft, non-tender LABS: Recent Labs 05/01/19 0519 05/02/19 0500 05/03/19 0700 NA 139 137 137 K 4.6 4.2 4.9 CL 104 105 105 BICARB 29 29 28 BUN 23* 25* 26* CR 1.59* 1.57* 1.50* GLU 102* 102* 92 CA 8.7 8.9 9.1 ALB 2.8* 2.9* 3.0* No results for input(s): MG in the last 168 hours. Invalid input(s): PHOS, CA Recent Labs 04/27/19 0654 WBC 6.88 RBC 4.79 HB 13.7 HCT 42.1 PLT 216 CBG's Recent Labs 04/26/19 1218 04/27/19 0654 04/28/19 0509 04/29/19 0414 04/30/19 0700 05/01/19 0519 05/02/19 0500 05/03/19 0700 GLU 98 97 102* 101* 104* 102* 102* 92 ASSESSMENT/PLAN: Marissa Michaels Jr. Is a 59M with HCV/EtOH cirrhosis s/p OLTx (2011) systolic HF, HTN, and CKD3 with multiple prior SCC who presents with left parotitis. Transferred to medicine service this am for further management of his co-morbidities and active issues currently HTN , Acute on CKD and liver transplant patient. -Aggressive oral care with mouth swabs, saliva substitute, peridex, and debridement of all visible crusts, pharyngeal/nasopharyngeal suctioning. - Parotid massages should be continued at a rate of NO FEWER than hourly, and even better i f more often. Enlist your CNAs or patten volunteers to help achieve this goal. -Typically lidia ents would be encouraged to do this 6 times an hour. - Continue warm compresses. Continue Oral Augmentin, to be on till the procedure Thursday - Continue HOB >30 deg, aspiration precautions -CT neck scan done on 04/27 showed left parotitis with obstructing stones and ductal dilatat ion, To OR on 05/05 for parotid stone removal (to allow time for the infection to settle down with abx) with sialendoscopy for ThursdayMay 04 (consented and on OR), please NPO, and h old [place] ppx at [place]. -The above plan was discussed with primary team -ENT team will continue to follow along with you. Code Status: FULL JUANJOSE GUPTA PA-C Otolaryngology-Head and Neck Surgery [facility] Pager [phone] Tre Brooks MD - 05/02/2019 2:26 PM PDTGeneral Medicine Attending Note ADMIT DATE: 04/25/2019 2:11 PM TODAY'S DATE: 05/02/2019 (HOSPITAL DAY 7) A student and a resident assisted with documenting this service. I saw the patient and revi ewed and verified all information documented by the student and resident, and made modificat ions to such information, when appropriate. No new concerns today. Still not doing massages as often as requested. Also bothered by bur adelina from skin cream. Exam as noted. Unchanged vs yest. Patients Hospital Problem List: Active Hospital Problems 1) *Acute parotitis 2) Liver transplant recipient (HCC) 3) Parotid sialolithiasis 4) Hypertension 5) Chronic systolic heart failure (HCC) 6) Methamphetamine use disorder, moderate (HCC) 7) Squamous cell carcinoma of skin of ear, unspecified laterality 8) A-fib (HCC) 9) Chronic renal disease, stage 4, severely decreased glomerular filtration rate (GFR) bet ween 15-29 mL/min/1.73 square meter (HCC) Pt remains stable. Discussed again importance of regular parotid massage. Will allow him to not do this at night to get uninterrupted sleep (given duration of hosptial stay, frequent awakenings bothersome). Is willing to get the topical cream for his actinic keratoses/probab le squamous cell carcinoma in situ. Discharge planning:Surgery weds and ; anticipate he will dc soon thereafter. Has NO ball pports at home but not wanting to go live with sister in [place]. Please refer to the note from Dr. Mccullough/MS3 Rito for additional details María Stacy MD [facility] Division of Hospital Medicine Karishma Meeks RN - 05/02/2019 2:07 PM Mario came through doing rounds this am and spoke to pt about needing to massage parotid gland. Since then noted pt is massaging this area very freq uently while awake. an Veras - 05/02/2019 1:00 PM PDTFormatting of this note might be differe nt from the original. GENERAL MEDICINE MEDICAL STUDENT PROGRESS NOTE Author: Han Veras Attending Physician: María Stacy MD Hospital Day: 7 ID: Marissa Michaels Jr. is a 59 y.o. male with a history of liver transplant on immunosu ppression, HFrEF, HTN, CKD3 and squamous cell carcinoma who was admitted for left sided paro titis with an obstructing stone and dilated duct. 24 Hour Events: - No acute events. Subjective: Mr. Michaels feels that the pain in his left jaw is well controlled and is unchanged. He is re sistant to frequent parotid massages and feels that he can do the massage once he begins to feel soreness in his jaw. He is frustrated when he must be woken up at night and reminded to massage his jaw. He has been up and walking around the patten frequently and eating and drink ing without issue. He continues to feel a burning sensation with the application of his topi turner skin treatments. Active medications: acetaminophen (TYLENOL) tablet 1,000 mg, 1,000 mg, oral, TID albuterol (PROVENTIL, VENTOLIN) 90 mcg/actuation inhaler 1-2 puff, 1-2 puff, inhalation, Q6 H PRN amoxicillin-clavulanate (AUGMENTIN) 500-125 mg 500 mg, 500 mg, oral, TID bisacodyl (DULCOLAX) suppository 10 mg, 10 mg, rectal, DAILY PRN calcipotriene (DOVONEX) 0.005 % cream, , topical, BID calcium carbonate chewable (TUMS) tablet 400 mg elemental, 1,000 mg total salt, oral, Q2H P RN chlorhexidine (PERIDEX) mouthwash 15 mL, 15 mL, oral, Q4H WA fluorouracil (EFUDEX) 5 % cream, , topical, BID hydrALAZINE (APRESOLINE) injection 10 mg, 10 mg, intravenous, Q4H PRN hydrOXYzine pamoate (VISTARIL) capsule 50 mg, 50 mg, oral, Q6H PRN lisinopril (PRINIVIL) tablet 10 mg, 10 mg, oral, DAILY metoprolol succinate (TOPROL-XL) tablet 100 mg, 100 mg, oral, DAILY mycophenolate (CELLCEPT) capsule 250 mg, 250 mg, oral, BID nicotine (NICOTROL) 14 mg/24 hr 1 patch, 1 patch, transdermal, DAILY nicotine polacrilex (COMMIT) lozenge 2 mg, 2 mg, oral, Q1H PRN ondansetron ODT (ZOFRAN ODT) tablet 8 mg, 8 mg, oral, Q12H PRN oxyCODONE (immediate release) (ROXICODONE) tablet 5 mg, 5 mg, oral, Q4H PRN polyethylene glycol (MIRALAX) packet 34 g, 34 g, oral, TID PRN prochlorperazine (COMPAZINE) injection 5-10 mg, 5-10 mg, intravenous, Q6H PRN prochlorperazine (COMPAZINE) tablet 5-10 mg, 5-10 mg, oral, Q6H PRN saliva substitute (MOUTH KOTE) spray 4 spray, 4 spray, oral, PRN senna-docusate (SENOKOT S) 8.6-50 mg 1 tablet, 1 tablet, oral, BID tacrolimus capsule 1 mg, 1 mg, oral, BID Physical Examination: Last 24 hour min/max Temp: 36.7 C (98.1 F) Temp Min: 36.5 C (97.7 F) Max: 36.9 C (98.4 F) Pulse: 57 Pulse Min: 48 Max: 63 Resp: 16 Resp Min: 14 Max: 18 BP: 173/94 (before BP meds) BP Min: 140/83 Max: 173/94 SpO2: 99 % SpO2 Min: 95 % Max: 99 % Body mass index is 22.66 kg/m. Intake/Output Summary (Last 24 hours) at 05/02/2019 1300 Last data filed at 05/02/2019 0900 Gross per 24 hour Intake 1027 ml Output Net 1027 ml General: Awake and sitting up comfortably in bed. HEENT: Right sided flap repair. Left sided jaw swelling anterior to ear without erythema. S wollen area is firm and tender to palpation. Duct opening is visualized in oral cavity. No s tone is visible at opening and no pus or fluid is expressed. Lungs: CTAB, no w/r/r, normal respiratory effort. Cardiovascular: RRR, normal S1 and S2, 2/6 systolic regurgitant murmur at the lower left st ernal border. Abdomen: soft, nontender, nondistended, +BS. Extremities: wwp, no BLE edema Skin: Warm, dry, clear. Diffuse, scattered scaly macules present on upper extremities and f maria alejandra. Neuro: A&Ox4. Laboratory: Chemistries: Last 72 Hours (or 3 results): Recent Labs 04/30/19 0700 05/01/19 0519 05/02/19 0500 NA 138 139 137 K 4.4 4.6 4.2 CL 103 104 105 BICARB 27 29 29 BUN 23* 23* 25* EGFRAFRICAN >60 54* 55* CR 1.42* 1.59* 1.57* GLU 104* 102* 102* CA 9.0 8.7 8.9 Liver Tests: Last 72 hours (or 3 results) Recent Labs 04/30/19 0705/01/1951805/02/19 0500 AST 61* 69* 63* ALT 33 42 40 TBILI 0.3 0.3 0.3 AP 146* 143* 135* ALB 3.1* 2.8* 2.9* TP 7.7 7.1 7.4 Tacrolimus level: 4.5 @0500. Micro: - None. Imaging: - No new imaging. Assessment and Plan Marissa Michaels Jr. is a 59 y.o. Male with a history of liver transplant on immunosuppre ssion, HFrEF, HTN, CKD3 and squamous cell carcinoma who is undergoing antibiotic treatment f or left sided parotitis and awaiting surgical intervention for an obstructing parotid stone and dilated duct. # Left-sided Parotitis Appears stable with antibiotic treatment and awaiting stone removal by ENT on 05/05. - Surgery scheduled for 05/05 for parotid stone removal with sialendoscopy on 05/04. - Continue oral antibiotics until surgery per ENT recommendations: amoxicillin-clavulanate 500mg TID. - Continue oral care as outlined in ENT note. - Continue parotid massage at minimum once per hour while awake. Appreciate RN assistance f or reminders as necessary during the day. - Continue oxycodone 5mg [id number] PRN for pain. # Liver transplant, elevated LFT's Hepatology has ongoing workup. Daily CMP's continue to show a stable and reassuring trend i n LFT's. - Hepatology continuing to follow, LFT workup as per their note. - Tacrolimus trough level at 4.5 today, discussed with hepatology and will continue through 2 weeks post-surgery, and then switch back to sirolimus at that time. - Continue tacrolimus 1 mg BID. - Continue mycophenolate 250mg BID. - Continue daily CMP per hepatology recommendations. # CKD3 Patient's creatinine is trending down at 1.57 today from 1.59 on 05/01. Transient increase e xpected with the initiation of lisinopril and is within the expected range given patient's b aseline creatinine of 1.45 as per chart review. - Continue lisinopril 10mg daily. - Continue to monitor renal function with daily CMP as part of hepatology workup. - Referral for outpatient nephrology on discharge. # Hypertension Blood pressures have been improved over past 24 hours with systolics in 140's to 160's and diastolics in the 70's to 80's. - Continue metoprolol succinate 100 mg daily. - Continue lisinopril 10 mg daily as above. - Hydralazine 10mg PRN for SBP >180. # Actinic Keratoses - Dermatology consulted on 04/27 and recommended: - Calcipotriene 0.005% ointment with 5-FU 5% cream (mixed 1:1) twice daily for 4 days (star satya on 04/28, end on 05/02). - Discussed expected side effect of burning with the patient and patient will finish treatm ent course today. - Follow-up in transplant skin clinic to re-establish care. # Anxiety Appears to be chronic in nature and improving. - Hydroxyzine 50mg [id number] PRN. Diet/Nutrition: Regular diet. Activity: Up ad pito. Access/Lines: PIV in place. Consults: ENT, hepatology. DVT ppx: SCD's. GI/BM ppx: senna-docusate, miralax PRN. Pain: oxycodone and acetaminophen. Dispo: Following surgery. CODE:Full The patient was discussed with attending physician, Dr. María Stacy MD, who agrees with the above assessment and plan. Han Veras [id number] signed by Lexie Mccullough DO at 05/02/2019 3:33 PM PDT Associated attestation - Lexie Devlin DO - 05/02/2019 3:33 PM PDTI personally interviewed the patient, performed the churchill elements of the physical examination, have develo ped an updated assessment and plan together with the medical student, Han Veras. I agree with the plans as documented. Assessment: Marissa Michaels JrValentina is a 59 y.o. male with a history of liver transplant on immunosuppre ssion, HFrEF, HTN, CKD3 and squamous cell carcinoma admitted for left sided parotitis with a n obstructing stone and dilated duct currently awaiting surgery. Plan: - Continue PO Augmentin - Continue oral care and parotid massage - 05/04 sialendoscopy and 05/05 for stone removal - ENT following, appreciate recs Lexie Mccullough DO, MSc Internal Medicine, PGY-2 Pager [phone] Karishma Khan, [place] - 05/02/2019 9:43 AM PDTDeclined to massage left parotid or do mouthwash. States he wants to sleep uanjose Gupta PA-C - 05/02/2019 9:27 AM PDTFormatting of this no te might be different from the original. DOS: 05/02/2019 Head and Neck Surgery Inpatient Daily Progress Note: Primary Care Provider: Ritesh England PA-C Admission Date: 04/25/2019 MARISSA LUCIANA MICHAELS JR., [id number] Hospital Day #7 SUBJECTIVE INTERVAL EVENTS: No acute events overnight AF, VSS OBJECTIVE Last 24 hour min/max Temp: 36.8 C (98.2 F) Temp Min: 36.5 C (97.7 F) Max: 36.9 C (98.4 F) Pulse: 54 Pulse Min: 48 Max: 63 Resp: 16 Resp Min: 14 Max: 18 BP: 153/74 BP Min: 140/83 Max: 160/82 SpO2: 95 % SpO2 Min: 95 % Max: 99 % Body mass index is 22.66 kg/m. Intake/Output Summary (Last 24 hours) at 05/02/2019 09 Last data filed at 05/01/2019 1549 Gross per 24 hour Intake 747 ml Output Net 747 ml PHYSICAL EXAM: General: Alert, comfortable, NAD HEENT: Face: multiple lesions and discoloration from skin cancer resections. Right side facial ne rve paresis. Oral Cavity: Minimal serous discharge expressed from the left Cassandra's duct with pressure on the left parotid gland. Dentition -poorrepair Parotid glands:mild swelling of left parotid gland. Neck; multiple skin lesions and discolorations Respiratory: breathing non-labored on RA Abdomen: soft, non-tender LABS: Recent Labs 04/30/19 0700 05/01/19 0519 05/02/19 0500 NA 138 139 137 K 4.4 4.6 4.2 CL 103 104 105 BICARB 27 29 29 BUN 23* 23* 25* CR 1.42* 1.59* 1.57* GLU 104* 102* 102* CA 9.0 8.7 8.9 ALB 3.1* 2.8* 2.9* No results for input(s): MG in the last 168 hours. Invalid input(s): PHOS, CA Recent Labs 04/25/19 1502 04/27/19 0654 WBC 5.72 6.88 RBC 4.59 4.79 HB 13.4* 13.7 HCT 39.6* 42.1 PLT 215 216 CBG's Recent Labs 04/25/19 1502 04/26/19 1218 04/27/19 0654 04/28/19 0509 04/29/19 0414 04/30/19 0700 05/01/19 0519 05/02/19 0500 GLU 94 98 97 102* 101* 104* 102* 102* ASSESSMENT/PLAN: Marissa Michaels Jr. Is a 59M with HCV/EtOH cirrhosis s/p OLTx (2011) systolic HF, HTN, and CKD3 with multiple prior SCC who presents with left parotitis. Transferred to medicine service this am for further management of his co-morbidities and active issues currently HTN , Acute on CKD and liver transplant patient. -Aggressive oral care with mouth swabs, saliva substitute, peridex, and debridement of all visible crusts, pharyngeal/nasopharyngeal suctioning. - Parotid massages should be continued at a rate of NO FEWER than hourly, and even better i f more often. Enlist your CNAs or patten volunteers to help achieve this goal. -Typically lidia ents would be encouraged to do this 6 times an hour. - Continue warm compresses. Continue Oral Augmentin, to be on till the procedure Thursday - Continue HOB >30 deg, aspiration precautions -CT neck scan done on 04/27 showed left parotitis with obstructing stones and ductal dilatat ion, plan for OR on 05/05 for parotid stone removal (to allow time for the infection to settl e down with abx) with sialendoscopy for ThursdayMay 04 (consented and added on to the OR) -The above plan was discussed with primary team -ENT team will continue to follow along with you. Code Status: FULL JUANJOSE GUPTA PA-C Otolaryngology-Head and Neck Surgery [facility] [place] Pager [phone] Vikas Durán M D - 05/02/2019 8:03 AM PDT Hepatology Inpatient Consult Follow-Up Note Name: Marissa Michaels Jr. A/P: Marissa Michaels Jr. is a 59 y.o. male withHCV/EtOH cirrhosis c/b HCC s/p KAMI-TACE with downstaging and subsequent OLT in 2011 at [facility] on MMF and sirolimus with subseq uent recurrent HCVand multipleskin SqCCand issues with adherence to immunosuppression and engaging in medical care, as well as history of hypertension,congestiveheart failure ,and likely CKD 3, admittedon 04/25/2019 with concern for left-sided parotitison whom w e are consulted to assist in post-OLT management. Transaminases continue to downtrend, suggesting liver injury may have been secondary to par otitis, now being treated, and less likely from rejection, alcohol, or his chronic HCV (thou gh possibly contributing). His liver dopplers are negative for PVT. Regarding his immunosuppression, at home he is on sirolimus in setting of his NMSC as well as his CKD; however given that he has plans to go forward with surgery on 05/04, sirolimus w as switched to tacrolimus (which will have less sequelae of poor wound healing), with plan t o switch back to sirolimus in two weeks in the post-op setting. Tacrolimus trough is 4.5 (); would continue 1 mg BID dosing. Recommendations: Holdingsirolimus ;Continue tacrolimus 1mg q12 hours (6am, 6pm) Continue MMF at reduced dose of 250 mg PO twice daily Fu PETH and urine ethyl glucuronide Daily CMP ENT plans for parotidectomy on 05/04 We will continue to follow peripherally. This plan was discussed and formulated with hepato logy attending, Dr. Centeno. Please call with any questions. Vikas Cooper Gastroenterology and Hepatology Fellow [id number] IE/S: Continues to have R parotid pain, otherwise has no complaints. Tolerating tacrolimus wel l. O: Medications: Medications Scheduled Medication Dose/Rate, Route, Frequency Last Action acetaminophen (TYLENOL) tablet 1,000 mg 1,000 mg, oral, TID Given: 05/01 2135 amoxicillin-clavulanate (AUGMENTIN) 500-125 mg 500 mg 500 mg, oral, TID Given: 05/01 2135 calcipotriene (DOVONEX) 0.005 % cream No Dose/Rate, top, BID Given: 04/30 937 chlorhexidine (PERIDEX) mouthwash 15 mL 15 mL, oral, Q4H WA Given: 05/02 06 fluorouracil (EFUDEX) 5 % cream No Dose/Rate, top, BID Given: 04/30 937 lisinopril (PRINIVIL) tablet 10 mg 10 mg, oral, DAILY Given: 05/01 816 metoprolol succinate (TOPROL-XL) tablet 100 mg 100 mg, oral, DAILY Given: 05/01 816 mycophenolate (CELLCEPT) capsule 250 mg 250 mg, oral, BID Given: 05/01 2135 nicotine (NICOTROL) 14 mg/24 hr 1 patch 1 patch, TD, DAILY Applied Patch: 04/29 833 senna-docusate (SENOKOT S) 8.6-50 mg 1 tablet 1 tablet, oral, BID Given: 05/01 2135 tacrolimus capsule 1 mg 1 mg, oral, BID Given: 05/02 602 PRN Medication Dose/Rate, Route, Frequency Last Action albuterol (PROVENTIL, VENTOLIN) 90 mcg/actuation inhaler 1-2 puff 2 puff, inhl, Q6H PRN Gi jesus: 04/26 907 bisacodyl (DULCOLAX) suppository 10 mg 10 mg, rect, DAILY PRN Ordered calcium carbonate chewable (TUMS) tablet 400 mg elemental 400 mg elemental, oral, Q2H PRN Given: 05/02 214 hydrALAZINE (APRESOLINE) injection 10 mg 10 mg, IV, Q4H PRN Ordered hydrOXYzine pamoate (VISTARIL) capsule 50 mg 50 mg, oral, Q6H PRN Ordered nicotine polacrilex (COMMIT) lozenge 2 mg 2 mg, oral, Q1H PRN Ordered ondansetron ODT (ZOFRAN ODT) tablet 8 mg 8 mg, oral, Q12H PRN Given: 05/01 1712 oxyCODONE (immediate release) (ROXICODONE) tablet 5 mg 5 mg, oral, Q4H PRN Given: 05/02 03 36 polyethylene glycol (MIRALAX) packet 34 g 34 g, oral, TID PRN Given: 04/27 2031 prochlorperazine (COMPAZINE) injection 5-10 mg 5-10 mg, IV, Q6H PRN Ordered prochlorperazine (COMPAZINE) tablet 5-10 mg 5 mg, oral, Q6H PRN Given: 05/01 2015 saliva substitute (MOUTH KOTE) spray 4 spray 4 spray, oral, PRN Given: 04/25 2011 Vitals: Last 24 hour min/max Temp: 36.8 C (98.2 F) Temp Min: 36.5 C (97.7 F) Max: 36.9 C (98.4 F) Pulse: 54 Pulse Min: 48 Max: 63 Resp: 16 Resp Min: 14 Max: 18 BP: 153/74 BP Min: 140/83 Max: 160/82 SpO2: 95 % SpO2 Min: 95 % Max: 99 % Body mass index is 22.66 kg/m. Exam: General: alert, NAD HEENT: L sided partoid swelling CV: RRR Lungs: clear Abd: + BS, soft, non-tender nontender to palpation. +ventral hernia Skin: multiple erythematous plaques/nodules around face, chest Neuro: oriented, no focal deficits Labs: Recent Labs 04/30/19 0700 05/01/19 0519 05/02/19 0500 NA 138 139 137 K 4.4 4.6 4.2 CL 103 104 105 BICARB 27 29 29 BUN 23* 23* 25* CR 1.42* 1.59* 1.57* GLU 104* 102* 102* CA 9.0 8.7 8.9 AST 61* 69* 63* ALT 33 42 40 AP 146* 143* 135* TBILI 0.3 0.3 0.3 TP 7.7 7.1 7.4 ALB 3.1* 2.8* 2.9* ANIONGAP 8 6 3* ANIONALBCOR 10 9 5 Labs: Lab Results Component Value Date MG 2.0 08/24/2018 Lab Results Component Value Date INRPT 1.13 04/28/2019 Lab Results Component Value Date FK506 nd 01/12/2015 Imaging and Other Studies: US liver dopplers 04/28/19 IMPRESSION: Normal liver Doppler examination. Patent hepatic vasculature. MELD-Na score: 11 at 04/30/2019 7:00 AM MELD score: 11 at 04/30/2019 7:00 AM Calculated from: Serum Creatinine: 1.42 mg/dL at 04/30/2019 7:00 AM Serum Sodium: 138 mmol/L (Rounded to 137 mmol/L) at 04/30/2019 7:00 AM Total Bilirubin: 0.3 mg/dL (Rounded to 1 mg/dL) at 04/30/2019 7:00 AM INR(ratio): 1.13 INR at 04/28/2019 5:09 AM Age: 59 years Everardo Barger MD - 05/01/2019 9:15 AM PDT GENERAL MEDICINE PROGRESS NOTE Author: Everardo Pardo MD Attending Physician: María Stacy MD Hospital Day: 6 ID: Marissa Michaels Jr. is a 59 y.o. malew/ hx ofliver transplant on immunosupression, HTN, CKD3 admitted for parotitis. 24 Hour Events: NAEO. Subjective: Only complaint is mild parotid pain. Has slight burning after the creams. Slept well, had a bowel movement. No fevers, chills, SoB. Active medications: acetaminophen (TYLENOL) tablet 1,000 mg, 1,000 mg, oral, TID albuterol (PROVENTIL, VENTOLIN) 90 mcg/actuation inhaler 1-2 puff, 1-2 puff, inhalation, Q6 H PRN amoxicillin-clavulanate (AUGMENTIN) 500-125 mg 500 mg, 500 mg, oral, TID bisacodyl (DULCOLAX) suppository 10 mg, 10 mg, rectal, DAILY PRN calcipotriene (DOVONEX) 0.005 % cream, , topical, BID calcium carbonate chewable (TUMS) tablet 400 mg elemental, 1,000 mg total salt, oral, Q2H P RN chlorhexidine (PERIDEX) mouthwash 15 mL, 15 mL, oral, Q4H WA fluorouracil (EFUDEX) 5 % cream, , topical, BID hydrALAZINE (APRESOLINE) injection 10 mg, 10 mg, intravenous, Q4H PRN hydrOXYzine pamoate (VISTARIL) capsule 50 mg, 50 mg, oral, Q6H PRN lisinopril (PRINIVIL) tablet 10 mg, 10 mg, oral, DAILY metoprolol succinate (TOPROL-XL) tablet 100 mg, 100 mg, oral, DAILY mycophenolate (CELLCEPT) capsule 250 mg, 250 mg, oral, BID nicotine (NICOTROL) 14 mg/24 hr 1 patch, 1 patch, transdermal, DAILY nicotine polacrilex (COMMIT) lozenge 2 mg, 2 mg, oral, Q1H PRN ondansetron ODT (ZOFRAN ODT) tablet 8 mg, 8 mg, oral, Q12H PRN oxyCODONE (immediate release) (ROXICODONE) tablet 5 mg, 5 mg, oral, Q4H PRN polyethylene glycol (MIRALAX) packet 34 g, 34 g, oral, TID PRN prochlorperazine (COMPAZINE) injection 5-10 mg, 5-10 mg, intravenous, Q6H PRN prochlorperazine (COMPAZINE) tablet 5-10 mg, 5-10 mg, oral, Q6H PRN saliva substitute (MOUTH KOTE) spray 4 spray, 4 spray, oral, PRN senna-docusate (SENOKOT S) 8.6-50 mg 1 tablet, 1 tablet, oral, BID tacrolimus capsule 1 mg, 1 mg, oral, BID Physical Examination: Last 24 hour min/max Temp: 36.8 C (98.2 F) Temp Min: 36.4 C (97.5 F) Max: 36.9 C (98.4 F) Pulse: 51 Pulse Min: 49 Max: 64 Resp: 16 Resp Min: 16 Max: 16 BP: 155/77 BP Min: 134/82 Max: 176/98 SpO2: 97 % SpO2 Min: 94 % Max: 97 % Body mass index is 22.35 kg/m. Intake/Output Summary (Last 24 hours) at 05/01/2019 0915 Last data filed at 05/01/2019 0734 Gross per 24 hour Intake 490 ml Output 676 ml Net -186 ml General: Lying in bed in NAD HEENT: Right flap repair. Left parotid swelling, tenderness, and induration decreased area of swelling compared to yesterday. MMM. Lungs: Breathing comfortably on RA, normal respiratory effort. Cardiovascular: RRR well perfused Abdomen: soft, globally mildly tender, nondistended, reducible hernia Extremities: wwp, no BLE edema Skin: Many actinic keratoses on skin Neuro: A&Ox4. Laboratory: Chemistries: Last 72 Hours (or 3 results) - Refreshable Recent Labs 04/29/19 0414 04/30/19 0700 05/01/19 0519 NA 139 138 139 K 4.0 4.4 4.6 CL 105 103 104 BICARB 29 27 29 BUN 25* 23* 23* EGFRAFRICAN >60 >60 54* CR 1.36* 1.42* 1.59* GLU 101* 104* 102* CA 8.7 9.0 8.7 Micro: None Imaging: None Assessment and Plan Marissa Michaels Jr. is a 59 y.o. malew/ hx ofliver transplant on immunosupression, HTN , CKD3 admitted for parotitis. #Parotitis Stable. CT confirms large stone with dilation of duct. ENT will take for surgery next to remove. Continuing antibiotics and massage for now. -Continue amoxicillin/clavulante 500/125mg TID -Continue parotid massage -Saliva substitute spray PRN #CKD3 Per chart review, baseline creatinine around 1.45. Received another 5 of lisinopril yesterd ay with plan to increase to 10 daily this morning. Cr slightly elevated today at 1.58. Likel y transient bump from lisinopril. Will CTM and continue lisinopril. -Refer for outpatient Nephrology -Follow up renal US -Increase lisinopril to 10mg daily #HTN #Dizziness (resolved) Blood pressure still consistently above 140, intermittently high diastolics to 98 -Continue metoprolol succinate 100mg daily -Increase lisinopril to 10mg daily -Hydralazine 10mg prn SBP>180 #Liver transplant LFTs stable. Hepatology following. Recommended starting tacrolimus, level on Thursday, switch back to sirolimus two weeks post-surgery. -Continue tacrolimus 1mg BID -Continuemycophenolate to 250 BID -Hold sirolimus -Hepatology on board, appresciate recommendations -Daily CMP -Follow urine PETH #Actinic keratoses Derm saw and recommended calcipotriene 0.005% ointment with 5-FU 5% cream (mixed 1:1) twice daily for 4 consecutive days to affected areas on face, neck, upper chest, dorsal forearms and dorsal hands. Having slight burning, common side effect. -Continue creams -Follow-up with transplant skin clinic Fluids/Electrolytes/Nutrition:PO Analgesia:APAP, oxycodone Thromboembolic ppx:SCDs Head of bed elevation:ad pito Ulcer ppx: not indicated Glucose control: not indicated GI ppx:senna-docusate, miralax IV/Airways/Catheters:PIV CODE:Full SDM: Sister Shruthi [phone] The patient was discussed with attending physician, Dr. María Stacy MD, who agrees with the above assessment and plan. Everardo Pardo MD Neurology PGY-1 P Associated attestation - María Stacy MD - 05/02/2019 8:56 AM PDTGeneral Medicine Attending Note ADMIT DATE: 04/25/2019 2:11 PM TODAY'S DATE: 05/02/2019 (HOSPITAL DAY 7) A resident assisted with documenting this service. I saw the patient and reviewed and verif ied all information documented by the resident, and made modifications to such information, when appropriate. Doing well today. No new concerns. Exam as noted. Parotid swelling unchanged. Discharge planning:Pt to remain in house until definitive surgery later this week. Anticipa te earliest dc would be Thursday. Please refer to the note from Dr. Pardo for additional details María Stacy MD [facility] Division of Hospital Medicine Everardo Pardo MD - 04/30/2019 3:22 PM PDT GENERAL MEDICINE PROGRESS NOTE Author: Everardo Pardo MD Attending Physician: María Stacy MD Hospital Day: 5 ID: Marissa Michaels . is a 59 y.o. malew/ hx ofliver transplant on immunosupression, HTN, CKD3 admitted for parotitis. 24 Hour Events: Had increased pain last night with increased area of swelling to mid ear. Subjective: Pain improved from last night. In good spirits today. Denies fevers, chills, tongue swellin g, SoB. Active medications: acetaminophen (TYLENOL) tablet 1,000 mg, 1,000 mg, oral, TID albuterol (PROVENTIL, VENTOLIN) 90 mcg/actuation inhaler 1-2 puff, 1-2 puff, inhalation, Q6 H PRN amoxicillin-clavulanate (AUGMENTIN) 500-125 mg 500 mg, 500 mg, oral, TID bisacodyl (DULCOLAX) suppository 10 mg, 10 mg, rectal, DAILY PRN calcipotriene (DOVONEX) 0.005 % cream, , topical, BID calcium carbonate chewable (TUMS) tablet 400 mg elemental, 1,000 mg total salt, oral, Q2H P RN chlorhexidine (PERIDEX) mouthwash 15 mL, 15 mL, oral, Q4H WA fluorouracil (EFUDEX) 5 % cream, , topical, BID hydrALAZINE (APRESOLINE) injection 10 mg, 10 mg, intravenous, Q4H PRN hydrOXYzine pamoate (VISTARIL) capsule 50 mg, 50 mg, oral, Q6H PRN lisinopril (PRINIVIL) tablet 5 mg, 5 mg, oral, DAILY metoprolol succinate (TOPROL-XL) tablet 100 mg, 100 mg, oral, DAILY mycophenolate (CELLCEPT) capsule 250 mg, 250 mg, oral, BID nicotine (NICOTROL) 14 mg/24 hr 1 patch, 1 patch, transdermal, DAILY nicotine polacrilex (COMMIT) lozenge 2 mg, 2 mg, oral, Q1H PRN ondansetron ODT (ZOFRAN ODT) tablet 8 mg, 8 mg, oral, Q12H PRN oxyCODONE (immediate release) (ROXICODONE) tablet 5 mg, 5 mg, oral, Q4H PRN polyethylene glycol (MIRALAX) packet 34 g, 34 g, oral, TID PRN prochlorperazine (COMPAZINE) injection 5-10 mg, 5-10 mg, intravenous, Q6H PRN prochlorperazine (COMPAZINE) tablet 5-10 mg, 5-10 mg, oral, Q6H PRN saliva substitute (MOUTH KOTE) spray 4 spray, 4 spray, oral, PRN senna-docusate (SENOKOT S) 8.6-50 mg 1 tablet, 1 tablet, oral, BID tacrolimus capsule 1 mg, 1 mg, oral, BID Physical Examination: Last 24 hour min/max Temp: 36.9 C (98.4 F) Temp Min: 36.8 C (98.2 F) Max: 37 C (98.6 F) Pulse: 50 Pulse Min: 50 Max: 57 Resp: 16 Resp Min: 16 Max: 16 BP: 165/91 BP Min: 143/82 Max: 179/85 SpO2: 95 % SpO2 Min: 93 % Max: 98 % Body mass index is 22.35 kg/m. Intake/Output Summary (Last 24 hours) at 04/30/2019 1523 Last data filed at 04/30/2019 1130 Gross per 24 hour Intake 20 ml Output 1050 ml Net -1030 ml General: Laying in bed in NAD HEENT: Right flap repair. Left parotid swelling, tenderness, and induration. MMM. Parotid o utlet flat without output with pressure Lungs: CTAB, no w/r/r, normal respiratory effort. Cardiovascular: RRR, normal S1 and S2, holosystolic murmur Abdomen: soft, globally mildly tender, nondistended, reducible hernia,+BS Extremities: wwp, no BLE edema Skin: Many actinic keratoses on skin Neuro: A&Ox4. Laboratory: Chemistries: Last 72 Hours (or 3 results) - Refreshable Recent Labs 04/28/19 0509 04/29/19 0414 04/30/19 0700 NA 135* 139 138 K 4.2 4.0 4.4 CL 102 105 103 BICARB 28 29 27 BUN 24* 25* 23* EGFRAFRICAN >60 >60 >60 CR 1.40* 1.36* 1.42* GLU 102* 101* 104* CA 9.2 8.7 9.0 Micro: None Imaging: None Assessment and Plan Marissa Michaels Jr. is a 59 y.o. malew/ hx ofliver transplant on immunosupression, HTN , CKD3 admitted for parotitis. #Parotitis Stable. CT confirms large stone with dilation of duct. ENT will take for surgery next to remove. Continuing antibiotics and massage for now. Deescalating to oral antibiotics . -Start amoxicillin/clavulante 500/125mg TID -Continue parotid massage -Saliva substitute spray PRN #CKD3 #ANAID (resolved) Per chart review, baseline creatinine around 1.45. Stable at 1.42 -Refer for outpatient Nephrology -Follow up renal US -Continue lisinopril 5mg daily #HTN #Dizziness (resolved) Blood pressure still above 140, no bump in creatinine from lisinopril. -Continue metoprolol succinate 100mg daily -Continue lisinopril 5mg daily -Hydralazine 10mg prn SBP>180 #Liver transplant LFTs stable. Hepatology following. Recommended starting tacrolimus, level on Thursday, switch back to sirolimus two weeks post-surgery. Ethyl glucuronide negative. -Continue tacrolimus 1mg BID -Continuemycophenolate to 250 BID -Hold sirolimus -Hepatology on board, appresciate recommendations -Daily CMP -Follow urine PETH #Actinic keratoses Derm saw and recommended calcipotriene 0.005% ointment with 5-FU 5% cream (mixed 1:1) twice daily for 4 consecutive days to affected areas on face, neck, upper chest, dorsal forearms and dorsal hands -Continue creams -Follow-up with transplant skin clinic Fluids/Electrolytes/Nutrition:PO Analgesia:APAP, oxycodone Thromboembolic ppx:SCDs Head of bed elevation:ad pito Ulcer ppx: not indicated Glucose control: not indicated GI ppx:senna-docusate, miralax IV/Airways/Catheters:PIV PT/OT: ordering CODE:Full The patient was discussed with attending physician, Dr. María Stacy MD, who agrees with the above assessment and plan. Everardo Pardo MD Neurology PGY-1 P Associated attestation - María Stacy MD - 04/30/2019 4:00 PM PDTGeneral Medicine Attending Note ADMIT DATE: 04/25/2019 2:11 PM TODAY'S DATE: 04/30/2019 (HOSPITAL DAY 5) A resident assisted with documenting this service. I saw the patient and reviewed and verif ied all information documented by the resident, and made modifications to such information, when appropriate. More swelling of L cheek to above ear last night. Improved with ice. No new concerns today. Exam as noted Pt to remain here until after ENT surgery next week. BP under reasonable control after anti hypertensive change. No new plans today. Discharge planning:as above Please refer to the note from for additional details María Stacy MD [facility] Division of Hospital Medicine María Stacy MD - 04/29/2019 1:34 PM PDTGeneral Medicine Attending Note ADMIT DATE: 04/25/2019 2:11 PM TODAY'S DATE: 04/29/2019 (HOSPITAL DAY 4) A student and a resident assisted with documenting this service. I saw the patient and revi ewed and verified all information documented by the student and resident, and made modificat ions to such information, when appropriate. Feeling good today. RN without concerns Exam notable for expressable clear/milky (but no purulent) fluid from parotid duct. Otherwi se unchanged Patients Hospital Problem List: Active Hospital Problems 1) *Acute parotitis 2) Liver transplant recipient (HCC) 3) Hypertension 4) Chronic systolic heart failure (HCC) 5) Methamphetamine use disorder, moderate (HCC) 6) Squamous cell carcinoma of skin of ear, unspecified laterality 7) A-fib (HCC) 8) Chronic renal disease, stage 4, severely decreased glomerular filtration rate (GFR) bet ween 15-29 mL/min/1.73 square meter (HCC) 9) Parotitis Surgery not an option until next week for scheduling reasons. Did consider whether reasonab le to dc pt to await surgery as an outpt given acute medical issues are stabilizing, however , after team spoke with pts sister prefer to keep him here. [place], has n o transportation. Overall she is concerned about his ability to care for himself. To that end, anticipate pt will remain in house through surgery. Currently transitioning to tacrolimus from sirolimus as per Hepatology recs. Renal function is stable. Treating skin l esions with topical creams. Discharge planning:as above. Please refer to the note from LUANA Veras/Dr. Pardo for additional details María Stacy MD [facility] Division of Hospital Medicine uanjose Gupta PA-C - 04/29/2019 10:29 AM PDT . DOS: 04/29/2019 Head and Neck Surgery Inpatient Daily Progress Note: Primary Care Provider: Ritesh England PA-C Admission Date: 04/25/2019 MARISSA MICHAELS JR., [id number] Hospital Day #4 SUBJECTIVE INTERVAL EVENTS: No acute events overnight AF, VSS OBJECTIVE Last 24 hour min/max Temp: 36.6 C (97.9 F) Temp Min: 36.6 C (97.9 F) Max: 37.1 C (98.8 F) Pulse: 63 Pulse Min: 52 Max: 63 Resp: 18 Resp Min: 16 Max: 18 BP: 164/94 BP Min: 137/67 Max: 164/94 SpO2: 96 % SpO2 Min: 95 % Max: 96 % Body mass index is 22.35 kg/m. Intake/Output Summary (Last 24 hours) at 04/29/2019 1029 Last data filed at 04/29/2019 0850 Gross per 24 hour Intake 1291 ml Output 1300 ml Net -9 ml PHYSICAL EXAM: General: Alert, comfortable, NAD HEENT: Face: multiple lesions and discoloration from skin cancer resections. Right side facial ne rve paresis. Oral Cavity: Purulent discharge expressed from the left Cassandra's duct with pressure on th e left parotid gland. Dentition -poorrepair Parotid glands:mild swelling of left parotid gland. Neck; multiple skin lesions and discolorations Respiratory: breathing non-labored on RA Abdomen: soft, non-tender LABS: Recent Labs 04/27/19 0654 04/28/19 0509 04/29/19 0414 NA 137 135* 139 K 4.4 4.2 4.0 CL 101 102 105 BICARB 32 28 29 BUN 26* 24* 25* CR 1.63* 1.40* 1.36* GLU 97 102* 101* CA 9.0 9.2 8.7 ALB 3.3* 3.1* 2.8* No results for input(s): MG in the last 168 hours. Invalid input(s): PHOS, CA Recent Labs 04/25/19 1502 04/27/19 0654 WBC 5.72 6.88 RBC 4.59 4.79 HB 13.4* 13.7 HCT 39.6* 42.1 PLT 215 216 CBG's Recent Labs 04/25/19 1502 04/26/19 1218 04/27/19 0654 04/28/19 0509 04/29/19 0414 GLU 94 98 97 102* 101* ASSESSMENT/PLAN: Marissa Michaels Jr. Is a 59M with HCV/EtOH cirrhosis s/p OLTx (2011) systolic HF, HTN, and CKD3 with multiple prior SCC who presents with left parotitis. Transferred to medicine service this am for further management of his co-morbidities and active issues currently HTN , Acute on CKD and liver transplant patient. -Aggressive oral care with mouth swabs, saliva substitute, peridex, and debridement of all visible crusts, pharyngeal/nasopharyngeal suctioning. - Parotid massages should be continued at a rate of NO FEWER than hourly, and even better i f more often. Enlist your CNAs or patten volunteers to help achieve this goal. -Typically lidia ents would be encouraged to do this 6 times an hour. - Continue warm compresses. Okay to switch from IV abx to Oral Augmentin, to be on till the procedure next Thursday - Continue HOB >30 deg, aspiration precautions -CT neck scan done on 04/27 showed left parotitis with obstructing stones and ductal dilatat ion, plan for OR on 05/05 for parotid stone removal (to allow time for the infection to settl e down with abx) with sialendoscopy for ThursdayMay 04 -The above plan was discussed with primary team -ENT team will continue to follow along with you. Code Status: FULL JUANJOSE GUPTA PA-C Otolaryngology-Head and Neck Surgery [facility] [place] Pager [phone] Amparo Gonzalez MD - 04/29/2019 9:10 AM PDT Hepatology Follow-Up Note Impression: Marissa Michaels is a 59 y.o. male with HCV/EtOH cirrhosis c/b HCC s/p KAMI-TACE with downstaging and subsequent OLT in 2011 at [facility] on MMF and sirolimus with subsequ ent recurrent HCVand multipleskin SqCC and issues with adherence to immunosuppression an d engaging in medical care, as well as history of hypertension,congestiveheart failure, and likely CKD 3, admittedon 04/25/2019 with concern for left-sided parotitison whom we are consulted to assist in post-OLT management. Transaminases continue to downtrend, suggesting liver injury may have been secondary to par otitis, now being treated, and less likely from rejection, alcohol, or his chronic HCV (thou gh possibly contributing). His liver dopplers are negative for PVT. Regarding his immunosuppression, likely he is on sirolimus in setting of his NMSC as well a s his CKD, however given that he has plans to go forward with surgery on 05/04, will recommen d temporarily switching him to tacrolimus given improved wound healing, with plans to switch back to sirolimus in the post-op setting. Cr appears back to baseline, suggesting resolution of ANAID. Suspect CKD 2/2 hypertension. On a renal-sparing immunosuppression regimen, but sirolimus can cause kidney dysfunction -- ty pically manifesting as proteinuria. His spot protein to creatinine ratio this admission appe ars stable/improved from prior, arguing against sirolimus toxicity. An additional concern wi th his immunosuppression we previously noted was his significant NMSC history and greatly ap preciate Dermatology evaluation in this regard. Recommendations: Continue holding sirolimus Start tacrolimus 1mg q12 hours (6am, 6pm) Check tacrolimus trough Thursday (05/02) - should be drawn 30 minutes prior to Am dose and 12 hours after PM dose Continue MMF at reduced dose of 250 mg PO twice daily Fu PETH and urine ethyl glucuronide Daily CMP ENT plans for parotidectomy on 05/04 We will continue to follow peripherally. This plan was discussed and formulated with hepato logy attending, Dr. Donato. Please call with any questions. Amparo Becerra MD Fellow, Gastroenterology and Hepatology Pager: [phone] Interval History: - normal liver dopplers yesterday - patient with some pain in his jaw with chewing thinks swelling is worse today than yester day - no fevers/chills - no abdominal pain Inpatient Medications: acetaminophen (TYLENOL) tablet 1,000 mg, 1,000 mg, oral, TID albuterol (PROVENTIL, VENTOLIN) 90 mcg/actuation inhaler 1-2 puff, 1-2 puff, inhalation, Q6 H PRN amoxicillin-clavulanate (AUGMENTIN) 500-125 mg 500 mg, 500 mg, oral, TID bisacodyl (DULCOLAX) suppository 10 mg, 10 mg, rectal, DAILY PRN calcipotriene (DOVONEX) 0.005 % cream, , topical, BID calcium carbonate chewable (TUMS) tablet 400 mg elemental, 1,000 mg total salt, oral, Q2H P RN chlorhexidine (PERIDEX) mouthwash 15 mL, 15 mL, oral, Q4H WA fluorouracil (EFUDEX) 5 % cream, , topical, BID hydrALAZINE (APRESOLINE) injection 10 mg, 10 mg, intravenous, Q4H PRN hydrOXYzine pamoate (VISTARIL) capsule 50 mg, 50 mg, oral, Q6H PRN lisinopril (PRINIVIL) tablet 5 mg, 5 mg, oral, DAILY metoprolol succinate (TOPROL-XL) tablet 100 mg, 100 mg, oral, DAILY mycophenolate (CELLCEPT) capsule 250 mg, 250 mg, oral, BID nicotine (NICOTROL) 14 mg/24 hr 1 patch, 1 patch, transdermal, DAILY nicotine polacrilex (COMMIT) lozenge 2 mg, 2 mg, oral, Q1H PRN ondansetron ODT (ZOFRAN ODT) tablet 8 mg, 8 mg, oral, Q12H PRN oxyCODONE (immediate release) (ROXICODONE) tablet 5 mg, 5 mg, oral, Q4H PRN polyethylene glycol (MIRALAX) packet 34 g, 34 g, oral, TID PRN prochlorperazine (COMPAZINE) injection 5-10 mg, 5-10 mg, intravenous, Q6H PRN prochlorperazine (COMPAZINE) tablet 5-10 mg, 5-10 mg, oral, Q6H PRN saliva substitute (MOUTH KOTE) spray 4 spray, 4 spray, oral, PRN senna-docusate (SENOKOT S) 8.6-50 mg 1 tablet, 1 tablet, oral, BID Exam BP (!) 164/94 (BP Location: Right upper arm, Patient Position: Lying on back) | Pulse 63 | Temp 36.6 C (97.9 F) (Oral) | Resp 18 | Ht 1.727 m (5' 8") | Wt 66.7 kg (147 lb) | SpO2 96% | BMI 22.35 kg/m | BSA 1.79 m Systolic (24hrs), Av , Min:137 , Max:164 Diastolic (24hrs), Av, Min:67, Max:94 Pulse Av.7 Min: 52 Max: 63 Temp Av.9 C (98.4 F) Min: 36.6 C (97.9 F) Max: 37.1 C (98.8 F) Resp Av.2 Min: 16 Max: 18 SpO2 Av.3 % Min: 95 % Max: 96 % General: alert, NAD HEENT: L sided partoid swelling CV: RRR Lungs: clear Abd: + BS, soft, non-tender nontender to palpation. +ventral hernia Skin: multiple erythematous plaques/nodules around face, chest Neuro: oriented, no focal deficits Labs: CBC with diff last 72 hours (or 3 results) Recent Labs 04/27/19 0654 WBC 6.88 HB 13.7 HCT 42.1 PLT 216 Chemistries: Last 72 Hours (or 3 results): Recent Labs 04/27/19 0654 04/28/19 0509 04/29/19 0414 NA 137 135* 139 K 4.4 4.2 4.0 CL 101 102 105 BICARB 32 28 29 BUN 26* 24* 25* CR 1.63* 1.40* 1.36* CA 9.0 9.2 8.7 No components found for: INR Liver Tests: Last 72 hours (or 3 results) Recent Labs 04/27/19 0654 04/28/19 0509 04/29/19 0414 AST 101* 58* 38 ALT 76* 36 25 TBILI 0.3 0.3 0.2* AP 164* 154* 134* ALB 3.3* 3.1* 2.8* TP 7.4 7.7 7.1 No results found for: CSA Lab Results Component Value Date FK506 nd 01/12/2015 Imaging/Studies: US liver dopplers 04/28/19 IMPRESSION: Normal liver Doppler examination. Patent hepatic vasculature. Associated attestation - Dayron Donato MD - 04/29/2019 4:46 PM PDTHEPATOLOGY ATTENDING I have personally interviewed the patient, performed the pertinent physical examination and personally formulated the plan with the house builder. I agree with the house builder's doc umentation as outlined above. S/p OLT 2011 at [facility] currently admitted for parotitis with plans of undergoing parotid surgery next week. Liver enzymes improved with tx of infection. Regarding ITX- was s upposed to be on siroliumus 3 mg and MMF but he had not been taking them regularly so when r estarted upon hospitalization that too on a lower dose- his trough was quite high which is d own trending. Today still high at 9. Continued on lower dose MMF of 250 mg bid. Plan to resu me ITX tomorrow but given upcoming surgery to avoid delayed healing will supervisor policy change clerks to FK p erioperatively (switch back 2 weeks after surgery) as noted in Dr. Becerra's note. I spent a total of 25 minutes, which was spent in the care and management of this patient, of which greater than 50% was spent on counseling and/or coordination of care for this patie nt's active medical problems. Dayron Donato MD Self Contained Behavior Unit Teacher, [facility] Division of Gastroenterology/Hepatology Han Veras - 04/29/2019 8:37 AM PDTFormatting of this note might be different fr om the original. GENERAL MEDICINE MEDICAL STUDENT PROGRESS NOTE Author: Han Veras Attending Physician: María Stacy MD Hospital Day: 4 ID: Marissa Michaels Jr. is a 59 y.o. male with history of liver transplant on immunosupp ression, HTN, CKD3, heart failure with reduced ejection fraction, and squamous cell carcinom a who presents with left sided parotitis with obstructing stone and dilated duct. 24 Hour Events: - ENT continues to follow Mr. Michaels and recommended continued oral antibiotics, oral care a s outlined in their note, and continued hourly parotid massage. - Hepatology continues to follow for workup of elevated LFT's. - Liver ultrasound with doppler completed as per Hepatology recommendations. Subjective: Mr. Michaels is overall feeling well. He continues to have some soreness and a feeling of full ness over his left parotid gland. His pain is unchanged since yesterday. The hourly parotid massages have been helpful for his pain and he has completed those on his own with some dwayne nders from the nursing staff. He has no new fevers, chills, or shortness of breath. He has b een eating and drinking without difficulty. He has been active during the day, walking aroun d the patten and has not felt any dizziness. Active medications: acetaminophen (TYLENOL) tablet 1,000 mg, 1,000 mg, oral, TID albuterol (PROVENTIL, VENTOLIN) 90 mcg/actuation inhaler 1-2 puff, 1-2 puff, inhalation, Q6 H PRN amoxicillin-clavulanate (AUGMENTIN) 500-125 mg 500 mg, 500 mg, oral, TID bisacodyl (DULCOLAX) suppository 10 mg, 10 mg, rectal, DAILY PRN calcipotriene (DOVONEX) 0.005 % cream, , topical, BID calcium carbonate chewable (TUMS) tablet 400 mg elemental, 1,000 mg total salt, oral, Q2H P RN chlorhexidine (PERIDEX) mouthwash 15 mL, 15 mL, oral, Q4H WA fluorouracil (EFUDEX) 5 % cream, , topical, BID hydrALAZINE (APRESOLINE) injection 10 mg, 10 mg, intravenous, Q4H PRN hydrOXYzine pamoate (VISTARIL) capsule 50 mg, 50 mg, oral, Q6H PRN lisinopril (PRINIVIL) tablet 5 mg, 5 mg, oral, DAILY metoprolol succinate (TOPROL-XL) tablet 100 mg, 100 mg, oral, DAILY mycophenolate (CELLCEPT) capsule 250 mg, 250 mg, oral, BID nicotine (NICOTROL) 14 mg/24 hr 1 patch, 1 patch, transdermal, DAILY nicotine polacrilex (COMMIT) lozenge 2 mg, 2 mg, oral, Q1H PRN ondansetron ODT (ZOFRAN ODT) tablet 8 mg, 8 mg, oral, Q12H PRN oxyCODONE (immediate release) (ROXICODONE) tablet 5 mg, 5 mg, oral, Q4H PRN polyethylene glycol (MIRALAX) packet 34 g, 34 g, oral, TID PRN prochlorperazine (COMPAZINE) injection 5-10 mg, 5-10 mg, intravenous, Q6H PRN prochlorperazine (COMPAZINE) tablet 5-10 mg, 5-10 mg, oral, Q6H PRN saliva substitute (MOUTH KOTE) spray 4 spray, 4 spray, oral, PRN senna-docusate (SENOKOT S) 8.6-50 mg 1 tablet, 1 tablet, oral, BID Physical Examination: Last 24 hour min/max Temp: 36.6 C (97.9 F) Temp Min: 36.6 C (97.9 F) Max: 37.1 C (98.8 F) Pulse: 63 Pulse Min: 52 Max: 63 Resp: 18 Resp Min: 16 Max: 18 BP: 164/94 BP Min: 137/67 Max: 164/94 SpO2: 96 % SpO2 Min: 95 % Max: 96 % Body mass index is 22.35 kg/m. Intake/Output Summary (Last 24 hours) at 04/29/2019 0837 Last data filed at 04/29/2019 0400 Gross per 24 hour Intake 821 ml Output 1650 ml Net -829 ml General: Awake and sitting up in bed with a pleasant demeanor. HEENT: Right sided flap repair. Left parotid area is firm and has a dull soreness with palp ation. No stone is visible from the ductal opening, but there is a small bulge located super ior to the duct. No discharge from the duct with massage. Moist mucus membranes. Lungs: Normal respiratory effort. Clear to auscultation bilaterally. Cardiovascular: Regular rate. Normal S1 and S2. 2/6 systolic regurgitant murmur at the lowe r left sternal border. Abdomen: Soft with mild tenderness, unchanged, in the right upper quadrant. Non-distended w ith +BS. Extremities: Warm and well perfused. No edema. Skin: Warm, dry. Diffuse, scattered scaly macules consistent with actinic kertoses on upper extremities bilaterally. Neuro: alert and oriented x4. Laboratory Chemistries: Last 72 Hours (or 3 results) - Refreshable Recent Labs 04/27/19 0654 04/28/19 0509 04/29/19 0414 NA 137 135* 139 K 4.4 4.2 4.0 CL 101 102 105 BICARB 32 28 29 BUN 26* 24* 25* EGFRAFRICAN 52* >60 >60 CR 1.63* 1.40* 1.36* GLU 97 102* 101* CA 9.0 9.2 8.7 Liver Tests: Last 72 hours (or 3 results) Recent Labs 04/27/19 0654 04/28/19 0509 04/29/19 0414 AST 101* 58* 38 ALT 76* 36 25 TBILI 0.3 0.3 0.2* AP 164* 154* 134* ALB 3.3* 3.1* 2.8* TP 7.4 7.7 7.1 Sirolimus levels: 13.6 (04/27), 13.7 (04/28), 9.1 (04/29) Micro: - none Imaging: Liver Ultrasound and Doppler (04/28): "Normal liver Doppler examination. Patent hepatic vasculature." "Kidneys: A left renal simple cyst is present. No hydronephrosis. No stone or mass." Assessment and Plan Marissa Michaels Jr. is a 59 y.o. Male with a history of a liver transplant on immunosupp ression, hypertension, CKD3, heart failure with reduced ejection fraction and squamous cell carcinoma who is found to have left-sided parotitis with an obstructing stone and dilated du ct. His course has been complicated by concern for acute liver insult now with improving lab oratory studies. # Left-sided Parotitis Appears stable with antibiotic treatment and awaiting stone removal by ENT on 05/05. - Continue oral antibiotics until surgery per ENT recommendations: amoxicillin-clavulanate 500mg TID. - Continue oral care as outlined in ENT note. - Continue parotid massage at minimum once per hour. Appreciate RN assistance for prompting or reminders as necessary. - Surgery scheduled for 05/05 for parotid stone removal with sialendoscopy on 05/04. - Continue oxycodone 5mg [id number] PRN for pain. # Anxiety Appears to be chronic in nature and patient has previously been prescribed benzodiazepines and - Discussed hydroxyzine as first line agent for anxiety, including potential side effects. - Hydroxyzine 50mg [id number] PRN. - Discussed previous prescription of diazepam for anxiety but need # Liver transplant, elevated LFT's Etiology of LFT's is unknown. Hepatology has ongoing workup. Liver US with Doppler showed n o abnormalities and LFT's, ALP continue to trend down. - Hepatology continuing to follow, LFT workup as per their note. - Sirolimus level at 9.1 today, down from 13.1 yesterday. Hepatology recommends continuing to hold and switching to tacrolimus 1mg in the setting of scheduled surgery and improved wou nd healing with tacrolimus. - Start tacrolimus 1 mg BID on 04/30. - Check tacrolimus trough on 05/02 in the AM. - Hepatology will restart sirolimus following surgery. - Continue mycophenolate 250mg BID. - Continue daily CMP per hepatology recommendations. # CKD with resolving ANAID Appears resolved with creatinine near baseline levels for two days. US reassuring for no hy dronephrosis, stones, or masses. - Continue lisinopril 5mg started on 04/28 for hypertension and renal protection. - Continue to monitor with daily CMP with lisinopril initiation as part of hepatology remy p. - Referal for outpatient nephrology on discharge. # Hypertension Blood pressures have been improved over past 24 hours with systolics in 130's to 150's and diastolics in the 60's to 80's. - Continue metoprolol succinate 100 mg daily. - Continue lisinopril 5 mg daily as above. - Hydralazine 10mg PRN for SBP >180. # Actinic Keratoses - Dermatology consulted on 04/27 and recommended: - Calcipotriene 0.005% ointment with 5-FU 5% cream (mixed 1:1) twice daily for 4 days (star satya on 04/28, end on 05/02). - Follow-up in transplant skin clinic to re-establish care. Diet/Nutrition: Regular diet Activity: ad pito. Access/Lines: PIV. DVT ppx: SCD's GI/BM ppx: Miralx PRN. Pain: Oxycodone PRN, Acetaminophen PRN. Dispo: Following surgery on 05/05. CODE:Full The patient was discussed with attending physician, Dr. María Stacy MD, who agrees with the above assessment and plan. Han Veras MS3 Associated attestation - Everardo Pardo MD - 04/29/2019 6:39 PM PDTPatient is stable . Parotitis unchanged, ANAID resolved, LFTs downtrending. Anxiety is present, but improved. Co ntinuing with Augmentin 500/125. Continuing to trend LFTs. Starting tacrolimus tomorrow. Aries l keep inpatient through surgery on 05/05.Everardo Pardo MD - 04/28/2019 1:42 PM PDTFo rmatting of this note might be different from the original. GENERAL MEDICINE PROGRESS NOTE Author: Everardo Pardo MD Attending Physician: María Stacy MD Hospital Day: 3 ID: Marissa Michaels Jr. is a 59 y.o. malew/ hx ofliver transplant on immunosupression, HTN, CKD3 admitted for parotitis. 24 Hour Events: NAEO Subjective: Feeling anxious this morning. Had an episode of emesis last night. Had a bowel movement tod ay. Parotid gland is still firm and painful. Denies fevers, chills. Active medications: acetaminophen (TYLENOL) tablet 1,000 mg, 1,000 mg, oral, TID albuterol (PROVENTIL, VENTOLIN) 90 mcg/actuation inhaler 1-2 puff, 1-2 puff, inhalation, Q6 H PRN amLODIPine (NORVASC) tablet 5 mg, 5 mg, oral, BID amoxicillin-clavulanate (AUGMENTIN) 500-125 mg 500 mg, 500 mg, oral, TID bisacodyl (DULCOLAX) suppository 10 mg, 10 mg, rectal, DAILY PRN calcium carbonate chewable (TUMS) tablet 400 mg elemental, 1,000 mg total salt, oral, Q2H P RN chlorhexidine (PERIDEX) mouthwash 15 mL, 15 mL, oral, Q4H WA hydrALAZINE (APRESOLINE) injection 10 mg, 10 mg, intravenous, Q4H PRN metoprolol succinate (TOPROL-XL) tablet 100 mg, 100 mg, oral, DAILY mycophenolate (CELLCEPT) capsule 250 mg, 250 mg, oral, BID nicotine (NICOTROL) 14 mg/24 hr 1 patch, 1 patch, transdermal, DAILY nicotine polacrilex (COMMIT) lozenge 2 mg, 2 mg, oral, Q1H PRN ondansetron ODT (ZOFRAN ODT) tablet 8 mg, 8 mg, oral, Q12H PRN oxyCODONE (immediate release) (ROXICODONE) tablet 5 mg, 5 mg, oral, Q4H PRN polyethylene glycol (MIRALAX) packet 34 g, 34 g, oral, TID PRN prochlorperazine (COMPAZINE) injection 5-10 mg, 5-10 mg, intravenous, Q6H PRN prochlorperazine (COMPAZINE) tablet 5-10 mg, 5-10 mg, oral, Q6H PRN saliva substitute (MOUTH KOTE) spray 4 spray, 4 spray, oral, PRN senna-docusate (SENOKOT S) 8.6-50 mg 1 tablet, 1 tablet, oral, BID Physical Examination: Last 24 hour min/max Temp: 36.9 C (98.4 F) Temp Min: 36.3 C (97.3 F) Max: 36.9 C (98.4 F) Pulse: 65 Pulse Min: 59 Max: 71 Resp: 18 Resp Min: 16 Max: 18 BP: 150/87 BP Min: 145/71 Max: 179/82 SpO2: 95 % SpO2 Min: 95 % Max: 99 % Body mass index is 22.35 kg/m. Intake/Output Summary (Last 24 hours) at 04/28/2019 1342 Last data filed at 04/28/2019 1155 Gross per 24 hour Intake 1353 ml Output 1500 ml Net -147 ml General: Laying in bed in NAD HEENT: Right flap repair. Left parotid swelling, tenderness, and induration. MMM. Parotid o utlet flat with scant white fluid output with pressure Lungs: CTAB, no w/r/r, normal respiratory effort. Cardiovascular: RRR, normal S1 and S2, holosystolic murmur Abdomen: soft, globally mildly tender, nondistended, reducible hernia,+BS Extremities: wwp, no BLE edema Skin: Many actinic keratoses on skin Neuro: A&Ox4. Laboratory: Chemistries: Last 72 Hours (or 3 results) - Refreshable Recent Labs 04/26/19 1218 04/27/19 0654 04/28/19 0509 NA 137 137 135* K 4.1 4.4 4.2 CL 103 101 102 BICARB 29 32 28 BUN 26* 26* 24* EGFRAFRICAN 52* 52* >60 CR 1.64* 1.63* 1.40* GLU 98 97 102* CA 9.2 9.0 9.2 CBC with diff last 72 hours (or 3 results) - Refreshable Recent Labs 04/25/19 1502 04/27/19 0654 WBC 5.72 6.88 HB 13.4* 13.7 HCT 39.6* 42.1 PLT 215 216 NEUTROPERC 61.6 -- LYMPHPERC 23.3 -- MONOPERC 12.1* -- BASOPERC 0.7 -- EOSPERC 2.1 -- Urine Na 45, Pr 31, Cr 49.5, Cl 49, Pr:Cr 0.63 HepB sAg, sAb, cAb negative Sirolmus 13.7 Micro: None Imaging: CT head w/o IMPRESSION: Left parotitis with obstructing stones and ductal dilatation. Assessment and Plan Marissa Michaels Jr. is a 59 y.o. malew/ hx ofliver transplant on immunosupression, HTN , CKD3 admitted for parotitis. #Parotitis Stable. CT confirms large stone with dilation of duct. ENT will take for surgery next to remove. Continuing antibiotics and massage for now. Deescalating to oral antibiotics . -Start amoxicillin/clavulante 500/125mg TID -Discontinue cefazolin and metronidazole -Continue parotid massage -Saliva substitute spray PRN #CKD3 #ANAID (resolved) Per chart review, baseline creatinine around 1.45. Now 1.40. Based on For CKD, would benef it with OP renal follow-up. Starting lisinopril for blood pressure and renal protection. -Refer for outpatient Nephrology -Follow up renal US -Start lisinopril 5mg daily #HTN #Dizziness (resolved) Blood pressure still above 140. Stopping amlodipine and switching to lisinopril. Dizziness stopped after reduction of metoprolol. -Continue metoprolol succinate to 100mg daily -Discontinue amlodipine -Hydralazine 10mg prn SBP>180 #Liver transplant Sirolimus supratheraputic, still. LFTs trending down. Hepatology recommended extensive work -up for his elevated LFTs, details outlined in their note. -Continuemycophenolate to 250 BID -Hold sirolimus -Hepatology on board, appresciate recommendations -Daily CMP, sirolimus -Follow abdominal US with doppler -Follow urine PETH and ethyl glucuronide #Actinic keratoses Derm saw and recommended calcipotriene 0.005% ointment with 5-FU 5% cream (mixed 1:1) twice daily for 4 consecutive days to affected areas on face, neck, upper chest, dorsal forearms and dorsal hands -Follow-up with transplant skin clinic Fluids/Electrolytes/Nutrition:PO Analgesia:APAP, oxycodone Thromboembolic ppx:SCDs Head of bed elevation:ad pito Ulcer ppx: not indicated Glucose control: not indicated GI ppx:senna-docusate, miralax IV/Airways/Catheters:PIV PT/OT: ordering CODE:Full The patient was discussed with attending physician, Dr. María Stacy MD, who agrees with the above assessment and plan. Everardo Pardo MD Neurology PGY-1 P Associated attestation - María Stacy MD - 04/28/2019 5:33 PM PDTGeneral Medicine Attending Note ADMIT DATE: 04/25/2019 2:11 PM TODAY'S DATE: 04/28/2019 (HOSPITAL DAY 3) A resident assisted with documenting this service. I saw the patient and reviewed and verif ied all information documented by the resident, and made modifications to such information, when appropriate. Had an episode of emesis last night. Occurred after pus was expressed from parotid. No naus ea today. No SOB, leg swelling. No new concerns. Exam notable for no longer visible white stone at duct opening. Otherwise unchanged LFTS down slightly vs yest Patients Hospital Problem List: Active Hospital Problems 1) *Acute parotitis 2) Liver transplant recipient (HCC) 3) Hypertension 4) Chronic systolic heart failure (HCC) 5) Methamphetamine use disorder, moderate (HCC) 6) Squamous cell carcinoma of skin of ear, unspecified laterality 7) A-fib (HCC) 8) Chronic renal disease, stage 4, severely decreased glomerular filtration rate (GFR) bet ween 15-29 mL/min/1.73 square meter (HCC) 9) Parotitis Pt at baseline renal function c/w CKD. LFTs up a touch yesterday - appreciate Hepatology in volvement. Working up as per their recs. Sirolimus still up today. Anticipated as had receiv ed dose before lab resulted yesterday. Holding for now. May be contributing to nausea/emesis yest? That said timing more c/w reaction to parotid drainage. For parotid infection, has already received nearly 3 weeks of abx. Will discuss with ENT as unclear if additional abx will provide much additional benefit prior to surgery. Plan is st one extraction next week at this point. Discharge planning:To remain inpatient until definitive surgery. Please refer to the note from Dr. Pardo for additional details María Stacy MD [facility] Division of Hospital Medicine Jameel Howe MD - 04/28/2019 8:40 AM PDTFormatting of this note might be different from t he original. Hepatology Inpatient Consult Follow-Up Note Name: Marissa Michaels Jr. A/P: This is a 59 y.o. male with HCV/EtOH cirrhosis c/b HCC s/p KAMI-TACE with downstaging and ball bsequent OLT in 2011 at [facility] on MMF and sirolimus with subsequent recurrent HCV and multiple skin SqCC and issues with adherence to immunosuppression and engaging in medica l care, as well as history of hypertension, congestive heart failure, and likely CKD 3, admi tted on 04/25/2019 with concern for left-sided parotitis on whom we are consulted to assist i n post-OLT management. Transaminases improved this AM, suggesting liver injury may have been secondary to his known infection. As previously noted, also considered mild rejection, EtOH , and chronic HCV as possible contributors - will await pending labs and U/S. Reassuringly, despite issues with compliance, his liver graft function appears to remain intact. In the se tting of supra-therapeutic sirolimus trough on 04/27/2019 and active infection, we have reduc ed his current immunosuppression regimen. Cr appears back to baseline, suggesting resolution of ANAID. Suspect CKD 2/2 hypertension. On a renal-sparing immunosuppression regimen, but sirolimus can cause kidney dysfunction -- ty pically manifesting as proteinuria. His spot protein to creatinine ratio this admission appe ars stable/improved from prior, arguing against sirolimus toxicity. An additional concern wi th his immunosuppression we previously noted was his significant NMSC history and greatly ap preciate Dermatology evaluation in this regard. Our recommendations are as follows: Continue holding sirolimus given persistently supratherapeutic level Continue MMF at reduced dose of 250 mg PO twice daily Await abdominal U/S with Doppler Await PETH and urine ethyl glucuronide Repeat CMP and sirolimus level daily - each AM Consider initiation of topical therapies as per Derm recs if available from inpatient ph armacy We will continue to follow along with you. Please page with any questions or concerns. This patient was staffed with Dr. Donato, who agrees with above. Jameel Howe MD Gastroenterology & Hepatology Fellow Pager: [phone] IE/S: CT yesterday with left parotitis with obstructing stones and ductal dilatation Per ENT plan for OR on 05/05 for stone removal Planning to transition to PO antibiotics Derm evaluation yesterday with plan to defer biopsies to outpatient setting but recommen dations for calcipotriene 0.005% ointment with 5-FU 5% cream x 4 days to affected areas (con cering for AKs versus SqCC) Also recommending nicotinamide to reduce risk of future NMSC Sirolimus level at 13.7 this AM, LFTs improving Some increased anxiety today, as well as an episode of nonbloody emesis yesterday, still nauseous this AM and feels related to anxiety No other complaints O: Medications: Medications Scheduled Medication Dose/Rate, Route, Frequency Last Action acetaminophen (TYLENOL) tablet 1,000 mg 1,000 mg, oral, TID Given: 04/28 824 amLODIPine (NORVASC) tablet 5 mg 5 mg, oral, BID Given: 04/28 824 ceFAZolin (ANCEF) injection 1 g 1 g, IV, Q8H Given: 04/28 824 chlorhexidine (PERIDEX) mouthwash 15 mL 15 mL, oral, Q4H WA Given: 04/28 824 metoprolol succinate (TOPROL-XL) tablet 100 mg 100 mg, oral, DAILY Given: 04/28 823 metroNIDAZOLE (FLAGYL) IV 500 mg 0 mg, 0 mL/hr, IV, Q8H Stopped: 04/28 800 mycophenolate (CELLCEPT) capsule 250 mg 250 mg, oral, BID Given: 04/28 824 nicotine (NICOTROL) 14 mg/24 hr 1 patch 1 patch, TD, DAILY Applied Patch: 04/27 904 senna-docusate (SENOKOT S) 8.6-50 mg 1 tablet 1 tablet, oral, BID Given: 04/28 824 PRN Medication Dose/Rate, Route, Frequency Last Action albuterol (PROVENTIL, VENTOLIN) 90 mcg/actuation inhaler 1-2 puff 2 puff, inhl, Q6H PRN Gi jesus: 04/26 907 bisacodyl (DULCOLAX) suppository 10 mg 10 mg, rect, DAILY PRN Ordered calcium carbonate chewable (TUMS) tablet 400 mg elemental 400 mg elemental, oral, Q2H PRN Given: 04/27 2332 hydrALAZINE (APRESOLINE) injection 10 mg 10 mg, IV, Q4H PRN Ordered nicotine polacrilex (COMMIT) lozenge 2 mg 2 mg, oral, Q1H PRN Ordered ondansetron ODT (ZOFRAN ODT) tablet 8 mg 8 mg, oral, Q12H PRN Given: 04/27 2332 oxyCODONE (immediate release) (ROXICODONE) tablet 5 mg 5 mg, oral, Q4H PRN Given: 04/28 06 58 polyethylene glycol (MIRALAX) packet 34 g 34 g, oral, TID PRN Given: 04/27 2031 prochlorperazine (COMPAZINE) injection 5-10 mg 5-10 mg, IV, Q6H PRN Ordered prochlorperazine (COMPAZINE) tablet 5-10 mg 10 mg, oral, Q6H PRN Given: 04/26 1833 saliva substitute (MOUTH KOTE) spray 4 spray 4 spray, oral, PRN Given: 04/25 2011 Vitals: Last 24 hour min/max Temp: 36.3 C (97.3 F) Temp Min: 36.3 C (97.3 F) Max: 36.8 C (98.2 F) Pulse: 64 Pulse Min: 55 Max: 71 Resp: 16 Resp Min: 16 Max: 18 BP: 167/89 BP Min: 145/71 Max: 179/82 SpO2: 97 % SpO2 Min: 97 % Max: 99 % Body mass index is 22.35 kg/m. Exam: Gen: Pleasant, cooperative, NAD Neuro: Alert, oriented HEENT: Left-sided facial swelling CV: RRR Pulm: CTAB Abd: Soft, mildly tender around large reducible ventral hernia without rebound tenderness o r guarding Labs: Recent Labs 04/25/19 1502 04/27/19 0654 WBC 5.72 6.88 HB 13.4* 13.7 HCT 39.6* 42.1 PLT 215 216 NEUTROPERC 61.6 -- LYMPHPERC 23.3 -- MONOPERC 12.1* -- BASOPERC 0.7 -- EOSPERC 2.1 -- Recent Labs 04/26/19 1218 04/27/19 0654 04/28/19 0509 NA 137 137 135* K 4.1 4.4 4.2 CL 103 101 102 BICARB 29 32 28 BUN 26* 26* 24* CR 1.64* 1.63* 1.40* GLU 98 97 102* CA 9.2 9.0 9.2 AST -- 101* 58* ALT -- 76* 36 AP -- 164* 154* TBILI -- 0.3 0.3 TP -- 7.4 7.7 ALB -- 3.3* 3.1* ANIONGAP 5 4 5 ANIONALBCOR -- 5 7 Lab Results Component Value Date MG 2.0 08/24/2018 Lab Results Component Value Date INRPT 1.13 04/28/2019 Lab Results Component Value Date SIROLIMUS 13.7 (H) 04/28/2019 Component Latest Ref Rng & Units 04/27/2019 04/27/2019 04/27/2019 4:12 PM 4:12 PM 4:12 PM HEPATITIS B SURFACE AG, SERUM Not Detected Not Detected HEP B CORE AB Not Detected Not Detected HEP B SURFACE AB QUAL, SERUM Not Detected Not Detected Ref. Range 09/10/2018 16:17 04/26/2019 19:39 PROTEIN/CREATININE RATIO Latest Ref Range: <0.10 mg/mg 0.74 (H) 0.63 (H) Associated attestation - Dayron Donato MD - 04/28/2019 7:07 PM PDTHEPATOLOGY ATTENDING I have personally interviewed the patient, performed the pertinent physical examination and personally formulated the plan with the house builder. I agree with the house builder's doc umentation as outlined above. I spent a total of 25 minutes, which was spent in the care and management of this patient, of which greater than 50% was spent on counseling and/or coordination of care for this patie nt's active medical problems. Dayron Donato MD Self Contained Behavior Unit Teacher, [facility] Division of Gastroenterology/Hepatology Juanjose Gupta PA-C - 04/28/2019 7:54 AM PDT DOS: 04/28/2019 Head and Neck Surgery Inpatient Daily Progress Note: Primary Care Provider: Ritesh England PA-C Admission Date: 04/25/2019 MARISSA MICHAELS JR., [id number] Hospital Day #3 SUBJECTIVE INTERVAL EVENTS: No acute events overnight AF, VSS OBJECTIVE Last 24 hour min/max Temp: 36.3 C (97.3 F) Temp Min: 36.3 C (97.3 F) Max: 36.8 C (98.2 F) Pulse: 64 Pulse Min: 55 Max: 71 Resp: 16 Resp Min: 16 Max: 18 BP: 167/89 BP Min: 145/71 Max: 179/82 SpO2: 97 % SpO2 Min: 97 % Max: 99 % Body mass index is 22.35 kg/m. Intake/Output Summary (Last 24 hours) at 04/28/2019 0754 Last data filed at 04/28/2019 0100 Gross per 24 hour Intake 2390 ml Output 1600 ml Net 790 ml PHYSICAL EXAM: General: Alert, comfortable, NAD HEENT: Face: multiple lesions and discoloration from skin cancer resections. Right side facial ne rve paresis. Oral Cavity: Purulent discharge expressed from the left Cassandra's duct with pressure on th e left parotid gland. Dentition -poorrepair Parotid glands:mild swelling of left parotid gland. Neck; multiple skin lesions and discolorations Respiratory: breathing non-labored on RA Abdomen: soft, non-tender LABS: Recent Labs 04/26/19 1218 04/27/19 0654 04/28/19 0509 NA 137 137 135* K 4.1 4.4 4.2 CL 103 101 102 BICARB 29 32 28 BUN 26* 26* 24* CR 1.64* 1.63* 1.40* GLU 98 97 102* CA 9.2 9.0 9.2 ALB -- 3.3* 3.1* No results for input(s): MG in the last 168 hours. Invalid input(s): PHOS, CA Recent Labs 04/25/19 1502 04/27/19 0654 WBC 5.72 6.88 RBC 4.59 4.79 HB 13.4* 13.7 HCT 39.6* 42.1 PLT 215 216 CBG's Recent Labs 04/25/19 1502 04/26/19 1218 04/27/19 0654 04/28/19 0509 GLU 94 98 97 102* ASSESSMENT/PLAN: Marissa Michaels Jr. Is a 59M with HCV/EtOH cirrhosis s/p OLTx (2011) systolic HF, HTN, and CKD3 with multiple prior SCC who presents with left parotitis. Transferred to medicine service this am for further management of his co-morbidities and active issues currently HTN , Acute on CKD and liver transplant patient. -Aggressive oral care with mouth swabs, saliva substitute, peridex, and debridement of all visible crusts, pharyngeal/nasopharyngeal suctioning. - Parotid massages should be continued at a rate of NO FEWER than hourly, and even better i f more often. Enlist your CNAs or patten volunteers to help achieve this goal. -Typically lidia ents would be encouraged to do this 6 times an hour. - Continue warm compresses. Okay to switch from IV abx to Oral Augumentin - Continue HOB >30 deg, aspiration precautions -CT neck scan done on 04/27 showed left parotitis with obstructing stones and ductal dilatat ion, plan for OR on 05/05 for parotid stone removal (to allow time for the infection to settl e down with abx) with sialendoscopy, will add pt to the OR and consent. -The above plan was discussed with primary team -ENT team will continue to follow along with you. Code Status: FULL JUANJOSE GUPTA PA-C Otolaryngology-Head and Neck Surgery [facility] Pager [phone] Everardo Barger MD - 04/27/2019 1:04 PM PDT GENERAL MEDICINE PROGRESS NOTE Author: Everardo Pardo MD Attending Physician: María Stacy MD Hospital Day: 2 ID: Marissa Michaels Jr. is a 59 y.o. male 24 Hour Events: NAEO Subjective: Feeling well this morning. Less dizziness and nausea. Parotid gland is still firm and painf ul. Denies fevers, chills, palpitations. Active medications: acetaminophen (TYLENOL) tablet 1,000 mg, 1,000 mg, oral, TID albuterol (PROVENTIL, VENTOLIN) 90 mcg/actuation inhaler 1-2 puff, 1-2 puff, inhalation, Q6 H PRN amLODIPine (NORVASC) tablet 5 mg, 5 mg, oral, BID bisacodyl (DULCOLAX) suppository 10 mg, 10 mg, rectal, DAILY PRN calcium carbonate chewable (TUMS) tablet 400 mg elemental, 1,000 mg total salt, oral, Q2H P RN ceFAZolin (ANCEF) injection 1 g, 1 g, intravenous, Q8H chlorhexidine (PERIDEX) mouthwash 15 mL, 15 mL, oral, Q1H hydrALAZINE (APRESOLINE) injection 10 mg, 10 mg, intravenous, Q4H PRN metoprolol succinate (TOPROL-XL) tablet 100 mg, 100 mg, oral, DAILY metroNIDAZOLE (FLAGYL) IV 500 mg, 500 mg, intravenous, Q8H mycophenolate (CELLCEPT) capsule 500 mg, 500 mg, oral, BID nicotine (NICOTROL) 14 mg/24 hr 1 patch, 1 patch, transdermal, DAILY nicotine polacrilex (COMMIT) lozenge 2 mg, 2 mg, oral, Q1H PRN ondansetron ODT (ZOFRAN ODT) tablet 8 mg, 8 mg, oral, Q12H PRN oxyCODONE (immediate release) (ROXICODONE) tablet 5 mg, 5 mg, oral, Q4H PRN polyethylene glycol (MIRALAX) packet 34 g, 34 g, oral, TID PRN prochlorperazine (COMPAZINE) injection 5-10 mg, 5-10 mg, intravenous, Q6H PRN prochlorperazine (COMPAZINE) tablet 5-10 mg, 5-10 mg, oral, Q6H PRN saliva substitute (MOUTH KOTE) spray 4 spray, 4 spray, oral, PRN senna-docusate (SENOKOT S) 8.6-50 mg 1 tablet, 1 tablet, oral, BID sirolimus (RAPAMUNE) tablet 2 mg, 2 mg, oral, QAM Physical Examination: Last 24 hour min/max Temp: 36.4 C (97.5 F) Temp Min: 36.4 C (97.5 F) Max: 36.7 C (98 F) Pulse: 55 Pulse Min: 50 Max: 61 Resp: 16 Resp Min: 16 Max: 18 BP: 148/78 BP Min: 142/72 Max: 167/90 SpO2: 99 % SpO2 Min: 97 % Max: 99 % Body mass index is 22.35 kg/m. Intake/Output Summary (Last 24 hours) at 04/27/2019 1305 Last data filed at 04/27/2019 0919 Gross per 24 hour Intake 1455 ml Output 1575 ml Net -120 ml General: Laying in bed in NAD HEENT: Right flap repair. Left parotid swelling, tenderness, and induration. MMM. Parotid o utlet now with white tip Lungs: CTAB, no w/r/r, normal respiratory effort. Cardiovascular: RRR, normal S1 and S2, holosystolic murmur Abdomen: soft, nontender, nondistended, reducible hernia,+BS Extremities: wwp, no BLE edema Skin: Warm, dry, clear. Neuro: A&Ox4. Laboratory: Chemistries: Last 72 Hours (or 3 results) - Refreshable Recent Labs 04/25/19 1502 04/26/19 1218 04/27/19 0654 NA 135* 137 137 K 3.6 4.1 4.4 CL 102 103 101 BICARB 26 29 32 BUN 26* 26* 26* EGFRAFRICAN 43* 52* 52* CR 1.95* 1.64* 1.63* GLU 94 98 97 CA 9.0 9.2 9.0 CBC with diff last 72 hours (or 3 results) - Refreshable Recent Labs 04/25/19 1502 04/27/19 0654 WBC 5.72 6.88 HB 13.4* 13.7 HCT 39.6* 42.1 PLT 215 216 NEUTROPERC 61.6 -- LYMPHPERC 23.3 -- MONOPERC 12.1* -- BASOPERC 0.7 -- EOSPERC 2.1 -- Urine Na 45, Pr 31, Cr 49.5, Cl 49, Pr:Cr 0.63 Micro: None Imaging: None Assessment and Plan Marissa Luciana Michaels Jr. is a 59 y.o. malew/ hx ofliver transplant on immunosupression, HTN , CKD3 admitted for parotitis. #Parotitis Improving with massage and IV antibiotics. ENT now concerned for parotid stone. Would like imaging to evaluate. CT w/ IV contrast would be ideal, but for renal protection opting for C T w/o. -Continue cefazolin 1g IV q8h -Continue metronidazole 500mg IV q8h -Continue parotid massage -Saliva substitute spray PRN -CT neck soft tissue w/o contrast #CKD3 #ANAID (resolved) Per chart review, baseline creatinine around 1.5, but has not been evaluated since September . Peaked at 1.95, stable at 1.63 without intervention. Based on For CKD, would benefit with OP renal follow-up. Considering Maria Alejandra-I/ARB depending on urine studies. Since getting abdomin al US, will also get renal US to assess for any post-renal component for his CKD -Follow urine studies -Refer for outpatient Nephrology -Renal US #HTN #Dizziness Blood pressure has been difficult to control while inpatient, up to 170s, and before admiss ion. Home regimen was metoprolol succ 100 BID and amlodipine 5mg BID Dizziness/lightheadedne ss seems likely to be caused by over beta blockade and cannot compensate. Metop also poor fo r blood pressure control. Considering adding chlorthalidone as he also has HF. -Continue metoprolol succinate to 100mg daily -Change amlodipine to 10mg daily -Hydralazine 10mg prn SBP>180 #Liver transplant Sirolimus supratheraputic. Hepatology recommended extensive work-up for his elevated LFTs, details outlined in their note. -Reducemycophenolate to 250 BID -Hold sirolimus -Hepatology on board, appresciate recommendations -Get HepB sAg sAb cAb, sirolimus level, CMP, INR -Abdominal US with doppler -Urine PETH and ethyl glucuronide Fluids/Electrolytes/Nutrition:PO Analgesia:APAP, oxycodone Thromboembolic ppx:SCDs Head of bed elevation:ad pito Ulcer ppx: not indicated Glucose control: not indicated GI ppx:senna-docusate, miralax IV/Airways/Catheters:PIV PT/OT: ordering CODE:Full The patient was discussed with attending physician, Dr. María Stacy MD, who agrees with the above assessment and plan. Everardo Pardo MD Neurology PGY-1 P Juanjose Valero PA-C - 04/27/2019 9:25 AM PDT . DOS: 04/27/2019 Head and Neck Surgery Inpatient Daily Progress Note: Primary Care Provider: Ritesh England PA-C Admission Date: 04/25/2019 MARISSA MICHAELS Valentina, [id number] Hospital Day #2 SUBJECTIVE INTERVAL EVENTS: No acute events overnight OBJECTIVE Last 24 hour min/max Temp: 36.4 C (97.5 F) Temp Min: 36.4 C (97.5 F) Max: 36.7 C (98 F) Pulse: 55 Pulse Min: 49 Max: 61 Resp: 16 Resp Min: 16 Max: 18 BP: 148/78 BP Min: 142/72 Max: 167/90 SpO2: 99 % SpO2 Min: 97 % Max: 99 % Body mass index is 22.35 kg/m. Intake/Output Summary (Last 24 hours) at 04/27/2019924 Last data filed at 04/27/2019918 Gross per 24 hour Intake 2200 ml Output 1575 ml Net 625 ml PHYSICAL EXAM: General: Alert, comfortable, NAD HEENT: Face: multiple lesions and discoloration from skin cancer resections. Right side facial ne rve paresis. Oral Cavity: Purulent discharge expressed from the left Cassandra's duct with pressure on th e left parotid gland. Dentition -poorrepair Parotid glands:mild swelling of left parotid gland. Neck; multiple skin lesions and discolorations Respiratory: breathing non-labored on RA Abdomen: soft, non-tender LABS: Recent Labs 04/25/19 1502 04/26/19 1218 04/27/19 0654 NA 135* 137 137 K 3.6 4.1 4.4 CL 102 103 101 BICARB 26 29 32 BUN 26* 26* 26* CR 1.95* 1.64* 1.63* GLU 94 98 97 CA 9.0 9.2 9.0 ALB -- -- 3.3* No results for input(s): MG in the last 168 hours. Invalid input(s): PHOS, CA Recent Labs 04/25/19 1502 04/27/19 0654 WBC 5.72 6.88 RBC 4.59 4.79 HB 13.4* 13.7 HCT 39.6* 42.1 PLT 215 216 CBG's Recent Labs 04/25/19 1502 04/26/19 1218 04/27/19 0654 GLU 94 98 97 ASSESSMENT/PLAN: Marissa Michaels Jr. Is a 59M with HCV/EtOH cirrhosis s/p OLTx (2011) systolic HF, HTN, and CKD3 with multiple prior SCC who presents with left parotitis. Transferred to medicine service this am for further management of his co-morbidities and active issues currently HTN , Acute on CKD and liver transplant patient. -Aggressive oral care with mouth swabs, saliva substitute, peridex, and debridement of all visible crusts, pharyngeal/nasopharyngeal suctioning. - Parotid massages should be continued at a rate of NO FEWER than hourly, and even better i f more often. Enlist your CNAs or patten volunteers to help achieve this goal. -Typically lidia ents would be encouraged to do this 6 times an hour. - Continue warm compresses. Continue antibiotics IV for now. - Continue HOB >30 deg, aspiration precautions -Discussed with primary team this am regarding a CT scan with contrast of parotids for furt her if any surgical intervention required for pt's active issue. Given pt's gradually improv ing renal fx and history of liver transplant, medicine team to discuss prior to ordering the scan. -ENT team will continue to follow along with you. Code Status: FULL JUANJOSE GUPTA PA-C Otolaryngology-Head and Neck Surgery [facility] Pager [phone] uanjose Gupta PA-C - 04/26/2019 8:42 AM PDT DOS: 04/26/2019 Head and Neck Surgery Inpatient Daily Progress Note: Primary Care Provider: Ritesh England PA-C Admission Date: 04/25/2019 MARISSA MICHAELS JR., [id number] Hospital Day #1 SUBJECTIVE INTERVAL EVENTS: No acute events overnight Transfer over medicine service 09/04 to pt with comorbidities, with acute on chronic kidney i njury and hypertensive Pt doing parotid massages, still purulence been expressed. On IV Cefazolin and Flagyl . WBC wnlt his am OBJECTIVE Last 24 hour min/max Temp: 36.5 C (97.7 F) Temp Min: 36.4 C (97.5 F) Max: 36.6 C (97.9 F) Pulse: 58 Pulse Min: 58 Max: 70 Resp: 18 Resp Min: 16 Max: 18 BP: 179/82 BP Min: 146/82 Max: 186/97 SpO2: 95 % SpO2 Min: 95 % Max: 98 % Body mass index is 22.35 kg/m. Intake/Output Summary (Last 24 hours) at 04/26/2019 0842 Last data filed at 04/26/2019 0832 Gross per 24 hour Intake 530 ml Output 1225 ml Net -695 ml PHYSICAL EXAM: General: Alert, comfortable, NAD HEENT: Face: multiple lesions and discoloration from skin cancer resections. Right side facial ne rve paresis. Oral Cavity: Purulent discharge expressed from the left Cassandra's duct with pressure on th e left parotid gland. Dentition -poorrepair Parotid glands:mild swelling of left parotid gland. Neck; multiple skin lesions and discolorations Respiratory: breathing non-labored on RA Abdomen: soft, non-tender LABS: Recent Labs 04/25/19 1502 NA 135* K 3.6 CL 102 BICARB 26 BUN 26* CR 1.95* GLU 94 CA 9.0 No results for input(s): MG in the last 168 hours. Invalid input(s): PHOS, CA Recent Labs 04/25/19 1502 WBC 5.72 RBC 4.59 HB 13.4* HCT 39.6* PLT 215 CBG's Recent Labs 04/25/19 1502 GLU 94 ASSESSMENT/PLAN: Marissa Morenostefanie June. Is a 59M with HCV/EtOH cirrhosis s/p OLTx (2011) systolic HF, HTN, and CKD3 with multiple prior SCC who presents with left parotitis. Transferred to medicine service this am for further management of his co-morbidities and active issues currently HTN , Acute on CKD and liver transplant patient. -Aggressive oral care with mouth swabs, saliva substitute, peridex, and debridement of all visible crusts, pharyngeal/nasopharyngeal suctioning. - Parotid massages should be continued at a rate of NO FEWER than hourly, and even better i f more often. Enlist your CNAs or patten volunteers to help achieve this goal. -Typically lidia ents would be encouraged to do this 6 times an hour. - Continue warm compresses. Continue antibiotics IV for now. - Continue HOB >30 deg, aspiration precautions -ENT team will continue to follow along with you. Code Status: FULL JUANJOSE GUPTA PA-C Otolaryngology-Head and Neck Surgery [facility] Pager [phone] Celsa Ng MD - 04/26/2019 8:12 AM PDTINPATIENT MEDICINE TRANSFER CENTER & IN[facility]OS[facility]ITAL ACCEPT NOTE Medicine Hospitalist Attending Author: CELSA ROSAS MD PCP: Ritesh England PA-C [address] [place] [id number] FAX: [phone] Referring Physician: Lay Gupta Referring Site (or [facility] Service): ENT [facility] Specialists involved: Dr. Roach Reason for Transfer/Admission: new ANAID in liver transplant patient Floor or ICU Request: floor HPI/PMH/Exam: 59 y/o man with hx of HCV cirrhosis s/p liver transplant, multiple SCC of skin, admitted wi th parotitis. However, now with new ANAID, so transfer to Medicine requested. 500 cc bolus ord ered this AM. Treating parotitis with antibiotics, parotid massage. Disposition: (accepted or declined) accepted documented in this enco unter Plan of Treatment +--------+---------+ + + + | Date | Type | Specialty | Care Team | Description | +--------+---------+ + + + | 06/17/ | Office | Otolaryngology | Shlomo Roach MD | | | 2019 | Visit | | [address] | | | | | | [place], | | | | | | [place] [address] | | | | | | [phone] | | | | | | | | +--------+---------+ + + + documented as of this encounter Procedures + +--------+ + + + | Procedure Name | Priori | Date/Time | Associated Diagnosis | Comments | | | ty | | | | + +--------+ + + + | TACROLIMUS, WHOLE | Urgent | 05/09/2019 | | Results for this | | BLOOD | | 6:51 AM | | procedure are in the | | | | PDT | | results section. | + +--------+ + + + | COMPLETE METABOLIC | Routin | 05/09/2019 | | Results for this | | SET | e | 12:38 AM | | procedure are in the | | (NA,K,CL,CO2,BUN,CRE | | PDT | | results section. | | AT,GLUC,CA,AST,ALT,B | | | | | | YAYO TOTAL,ALK | | | | | | PHOS,ALB,PROT TOTAL) | | | | | + +--------+ + + + | CAPILLARY BLOOD | Routin | 05/08/2019 | Parotitis | Results for this | | GLUCOSE (NO CHG), | e | 1:00 PM | | procedure are in the | | POC | | PDT | | results section. | + +--------+ + + + | COMPLETE METABOLIC | Routin | 05/08/2019 | | Results for this | | SET | e | 12:41 AM | | procedure are in the | | (NA,K,CL,CO2,BUN,CRE | | PDT | | results section. | | AT,GLUC,CA,AST,ALT,B | | | | | | YAYO TOTAL,ALK | | | | | | PHOS,ALB,PROT TOTAL) | | | | | + +--------+ + + + | CBC (HEMOGRAM) ONLY | Urgent | 05/07/2019 | | Results for this | | | | 8:27 AM | | procedure are in the | | | | PDT | | results section. | + +--------+ + + + | RENAL FUNCTION SET | Urgent | 05/07/2019 | | Results for this | | (NA,K,CL,CO2,BUN,CRE | | 8:27 AM | | procedure are in the | | AT,GLUC,CA,PHOS,ALB | | PDT | | results section. | | ) | | | | | + +--------+ + + + | TACROLIMUS, WHOLE | Urgent | 05/07/2019 | | Results for this | | BLOOD | | 8:27 AM | | procedure are in the | | | | PDT | | results section. | + +--------+ + + + | CBC ONLY | Urgent | 05/07/2019 | | Results for this | | | | 8:27 AM | | procedure are in the | | | | PDT | | results section. | + +--------+ + + + | MAGNESIUM, PLASMA | Urgent | 05/07/2019 | | Results for this | | | | 8:27 AM | | procedure are in the | | | | PDT | | results section. | + +--------+ + + + | COMPLETE METABOLIC | Routin | 05/07/2019 | | Results for this | | SET | e | 12:26 AM | | procedure are in the | | (NA,K,CL,CO2,BUN,CRE | | PDT | | results section. | | AT,GLUC,CA,AST,ALT,B | | | | | | YAYO TOTAL,ALK | | | | | | PHOS,ALB,PROT TOTAL) | | | | | + +--------+ + + + | CAPILLARY BLOOD | Routin | 05/06/2019 | Parotitis | Results for this | | GLUCOSE (NO CHG), | e | 6:16 PM | | procedure are in the | | POC | | PDT | | results section. | + +--------+ + + + | TACROLIMUS, WHOLE | Urgent | 05/06/2019 | | Results for this | | BLOOD | | 8:03 AM | | procedure are in the | | | | PDT | | results section. | + +--------+ + + + | COMPLETE METABOLIC | Routin | 05/06/2019 | | Results for this | | SET | e | 12:13 AM | | procedure are in the | | (NA,K,CL,CO2,BUN,CRE | | PDT | | results section. | | AT,GLUC,CA,AST,ALT,B | | | | | | YAYO TOTAL,ALK | | | | | | PHOS,ALB,PROT TOTAL) | | | | | + +--------+ + + + | BASIC METABOLIC SET | Urgent | 05/05/2019 | | Results for this | | (NA, K, CL, TCO2, | | 4:11 PM | | procedure are in the | | BUN, CR, GLU, CA) | | PDT | | results section. | + +--------+ + + + | COMPLETE METABOLIC | Urgent | 05/05/2019 | | Results for this | | SET | | 6:33 AM | | procedure are in the | | (NA,K,CL,CO2,BUN,CRE | | PDT | | results section. | | AT,GLUC,CA,AST,ALT,B | | | | | | YAYO TOTAL,ALK | | | | | | PHOS,ALB,PROT TOTAL) | | | | | + +--------+ + + + | CBC (HEMOGRAM) ONLY | Urgent | 05/05/2019 | | Results for this | | | | 5:26 AM | | procedure are in the | | | | PDT | | results section. | + +--------+ + + + | CBC ONLY | Urgent | 05/05/2019 | | Results for this | | | | 5:26 AM | | procedure are in the | | | | PDT | | results section. | + +--------+ + + + | TACROLIMUS, WHOLE | Urgent | 05/05/2019 | | Results for this | | BLOOD | | 5:25 AM | | procedure are in the | | | | PDT | | results section. | + +--------+ + + + | X-RAY ABD LTD | Routin | 05/04/2019 | | Results for this | | FEEDING TUBE EVAL | e | 8:16 PM | | procedure are in the | | PORTABLE | | PDT | | results section. | + +--------+ + + + | X-RAY PORTABLE CHEST | Routin | 05/04/2019 | | Results for this | | 1 VIEW | e | 7:35 PM | | procedure are in the | | | | PDT | | results section. | + +--------+ + + + | CAPILLARY BLOOD | Routin | 05/04/2019 | Parotitis | Results for this | | GLUCOSE (NO CHG), | e | 6:41 PM | | procedure are in the | | POC | | PDT | | results section. | + +--------+ + + + | CBC (HEMOGRAM) ONLY | Urgent | 05/04/2019 | | Results for this | | | | 6:36 PM | | procedure are in the | | | | PDT | | results section. | + +--------+ + + + | RENAL FUNCTION SET | Urgent | 05/04/2019 | | Results for this | | (NA,K,CL,CO2,BUN,CRE | | 6:36 PM | | procedure are in the | | AT,GLUC,CA,PHOS,ALB | | PDT | | results section. | | ) | | | | | + +--------+ + + + | CBC ONLY | Urgent | 05/04/2019 | | Results for this | | | | 6:36 PM | | procedure are in the | | | | PDT | | results section. | + +--------+ + + + | MAGNESIUM, PLASMA | Urgent | 05/04/2019 | | Results for this | | | | 6:36 PM | | procedure are in the | | | | PDT | | results section. | + +--------+ + + + | SURGICAL PATHOLOGY | Routin | 05/04/2019 | | Results for this | | | e | 2:26 PM | | procedure are in the | | | | PDT | | results section. | + +--------+ + + + | PAROTID | Electi | 05/04/2019 | Parotitis | | | SIALENDOSCOPY | ve | 1:03 PM | | | | | Surgic | PDT | | | | | al | | | | + +--------+ + + + | COMPLETE METABOLIC | Routin | 05/04/2019 | | Results for this | | SET | e | 5:00 AM | | procedure are in the | | (NA,K,CL,CO2,BUN,CRE | | PDT | | results section. | | AT,GLUC,CA,AST,ALT,B | | | | | | YAOY TOTAL,ALK | | | | | | PHOS,ALB,PROT TOTAL) | | | | | + +--------+ + + + | COMPLETE METABOLIC | Routin | 05/03/2019 | | Results for this | | SET | e | 7:00 AM | | procedure are in the | | (NA,K,CL,CO2,BUN,CRE | | PDT | | results section. | | AT,GLUC,CA,AST,ALT,B | | | | | | YAYO TOTAL,ALK | | | | | | PHOS,ALB,PROT TOTAL) | | | | | + +--------+ + + + | COMPLETE METABOLIC | Routin | 05/02/2019 | | Results for this | | SET | e | 5:00 AM | | procedure are in the | | (NA,K,CL,CO2,BUN,CRE | | PDT | | results section. | | AT,GLUC,CA,AST,ALT,B | | | | | | YAYO TOTAL,ALK | | | | | | PHOS,ALB,PROT TOTAL) | | | | | + +--------+ + + + | TACROLIMUS, WHOLE | Routin | 05/02/2019 | | Results for this | | BLOOD | e | 5:00 AM | | procedure are in the | | | | PDT | | results section. | + +--------+ + + + | COMPLETE METABOLIC | Routin | 05/01/2019 | | Results for this | | SET | e | 5:19 AM | | procedure are in the | | (NA,K,CL,CO2,BUN,CRE | | PDT | | results section. | | AT,GLUC,CA,AST,ALT,B | | | | | | YAYO TOTAL,ALK | | | | | | PHOS,ALB,PROT TOTAL) | | | | | + +--------+ + + + | SIROLIMUS | Routin | 04/30/2019 | | Results for this | | QUANTITATION, WHOLE | e | 7:01 AM | | procedure are in the | | BLOOD | | PDT | | results section. | + +--------+ + + + | COMPLETE METABOLIC | Routin | 04/30/2019 | | Results for this | | SET | e | 7:00 AM | | procedure are in the | | (NA,K,CL,CO2,BUN,CRE | | PDT | | results section. | | AT,GLUC,CA,AST,ALT,B | | | | | | YAYO TOTAL,ALK | | | | | | PHOS,ALB,PROT TOTAL) | | | | | + +--------+ + + + | SIROLIMUS | Routin | 04/29/2019 | | Results for this | | QUANTITATION, WHOLE | e | 4:14 AM | | procedure are in the | | BLOOD | | PDT | | results section. | + +--------+ + + + | COMPLETE METABOLIC | Routin | 04/29/2019 | | Results for this | | SET | e | 4:14 AM | | procedure are in the | | (NA,K,CL,CO2,BUN,CRE | | PDT | | results section. | | AT,GLUC,CA,AST,ALT,B | | | | | | YAYO TOTAL,ALK | | | | | | PHOS,ALB,PROT TOTAL) | | | | | + +--------+ + + + | US ABDOMEN COMP W/ | Routin | 04/28/2019 | | Results for this | | DOPPLER | e | 10:29 AM | | procedure are in the | | | | PDT | | results section. | + +--------+ + + + | INR | Routin | 04/28/2019 | | Results for this | | | e | 5:09 AM | | procedure are in the | | | | PDT | | results section. | + +--------+ + + + | SIROLIMUS | Routin | 04/28/2019 | | Results for this | | QUANTITATION, WHOLE | e | 5:09 AM | | procedure are in the | | BLOOD | | PDT | | results section. | + +--------+ + + + | COMPLETE METABOLIC | Routin | 04/28/2019 | | Results for this | | SET | e | 5:09 AM | | procedure are in the | | (NA,K,CL,CO2,BUN,CRE | | PDT | | results section. | | AT,GLUC,CA,AST,ALT,B | | | | | | YAYO TOTAL,ALK | | | | | | PHOS,ALB,PROT TOTAL) | | | | | + +--------+ + + + | ETHYL GLUCURONIDE | Routin | 04/27/2019 | | Results for this | | QUANT, URINE | e | 4:26 PM | | procedure are in the | | | | PDT | | results section. | + +--------+ + + + | PHOSPHATIDYLETHANOL | Routin | 04/27/2019 | | Results for this | | (PETH) | e | 4:12 PM | | procedure are in the | | | | PDT | | results section. | + +--------+ + + + | HEPATITIS B SURFACE | Routin | 04/27/2019 | | Results for this | | AG W/REFLEX IF | e | 4:12 PM | | procedure are in the | | INDICATED | | PDT | | results section. | + +--------+ + + + | HEPATITIS B SURFACE | Routin | 04/27/2019 | | Results for this | | AB QUAL, SERUM | e | 4:12 PM | | procedure are in the | | | | PDT | | results section. | + +--------+ + + + | HEPATITIS B CORE AB, | Routin | 04/27/2019 | | Results for this | | SERUM | e | 4:12 PM | | procedure are in the | | | | PDT | | results section. | + +--------+ + + + | CT NECK SOFT TISSUE | Routin | 04/27/2019 | | Results for this | | W CONTRAST | e | 3:07 PM | | procedure are in the | | | | PDT | | results section. | + +--------+ + + + | CBC (HEMOGRAM) ONLY | Routin | 04/27/2019 | | Results for this | | | e | 6:54 AM | | procedure are in the | | | | PDT | | results section. | + +--------+ + + + | SIROLIMUS | Routin | 04/27/2019 | | Results for this | | QUANTITATION, WHOLE | e | 6:54 AM | | procedure are in the | | BLOOD | | PDT | | results section. | + +--------+ + + + | COMPLETE METABOLIC | Routin | 04/27/2019 | | Results for this | | SET | e | 6:54 AM | | procedure are in the | | (NA,K,CL,CO2,BUN,CRE | | PDT | | results section. | | AT,GLUC,CA,AST,ALT,B | | | | | | YAYO TOTAL,ALK | | | | | | PHOS,ALB,PROT TOTAL) | | | | | + +--------+ + + + | CBC ONLY | Routin | 04/27/2019 | | Results for this | | | e | 6:54 AM | | procedure are in the | | | | PDT | | results section. | + +--------+ + + + | SODIUM TOTAL, URINE | Routin | 04/26/2019 | | Results for this | | | e | 7:39 PM | | procedure are in the | | | | PDT | | results section. | + +--------+ + + + | PROTEIN, URINE | Routin | 04/26/2019 | | Results for this | | | e | 7:39 PM | | procedure are in the | | | | PDT | | results section. | + +--------+ + + + | CREATININE, URINE | Routin | 04/26/2019 | | Results for this | | | e | 7:39 PM | | procedure are in the | | | | PDT | | results section. | + +--------+ + + + | CHLORIDE, URINE | Routin | 04/26/2019 | | Results for this | | | e | 7:39 PM | | procedure are in the | | | | PDT | | results section. | + +--------+ + + + | BASIC METABOLIC SET | Routin | 04/26/2019 | | Results for this | | (NA, K, CL, TCO2, | e | 12:18 PM | | procedure are in the | | BUN, CR, GLU, CA) | | PDT | | results section. | + +--------+ + + + | CBC AND AUTO DIFF | Routin | 04/25/2019 | | Results for this | | | e | 3:02 PM | | procedure are in the | | | | PDT | | results section. | + +--------+ + + + | CBC, WITH | Routin | 04/25/2019 | | Results for this | | DIFFERENTIAL | e | 3:02 PM | | procedure are in the | | | | PDT | | results section. | + +--------+ + + + | BASIC METABOLIC SET | Routin | 04/25/2019 | | Results for this | | (NA, K, CL, TCO2, | e | 3:02 PM | | procedure are in the | | BUN, CR, GLU, CA) | | PDT | | results section. | + +--------+ + + + documented in this encounter Results TACROLIMUS, WHOLE BLOOD (05/09/2019 6:51 AM PDT) + + + + + + | Component | Value | Ref Range | Performed | Pathologist | | | | | At | Signature | + + + + + + | TACROLIMUS | 2.7 (L)Comment: Please | 5.0 - 15.0 | [facility] | | | ([phone]) | pull 30 minutes before | ng/mL | LABORATORY | | | | giving morning tacro | | SERVICES, | | | | | | SPECIAL IMM | | | | | | + COAG | | + + + + + + + + | Specimen | + + | Blood - Blood | | (substance) | + + + + + | Narrative | Performed At | + + + | Test performed by immunoassay using [employer] i2000. . | [facility] | | Samples for analysis of Tacrolimus should be collected 30 minutes to 1 | LABORATORY | | hour prior to the next dose so that the measured concentration of | SERVICES, | | drug represents trough levels. Some other factors influencing | SPECIAL IMM + | | therapeutic range, dose administered, and result interpretation | COAG | | include time since transplantation, the organ transplanted, | | | co-administration of other immunosuppressants and interaction with | | | other drugs that may increase or decrease Tacrolimus concentrations. | | + + + + + + + + | Performing | Address | City/State/Zipcode | Phone Number | | Organization | | | | + + + + + | [facility] | [address] | [place] [address] | | | SERVICES, SPECIAL | [address] | | | | IMM + [place] | | | | + + + + + COMPLETE METABOLIC SET (NA,K,CL,CO2,BUN,CREAT,GLUC,CA,AST,ALT,BILI TOTAL,ALK PHOS,ALB,PROT TOTAL) (05/09/2019 12:38 AM PDT) + + + + + [...] + + + | BUN, PLASMA | 39 (H) | 6 - 20 mg/dL | [facility] | | | (LAB) | | | LABORATORY | | | | | | SERVICES, | | | | | | CORE | | + + + + + + | CREATININE | 1.44 (H) | 0.70 - 1.30 | [facility] | | | PLASMA | | mg/dL | LABORATORY | | | (LAB) | | | SERVICES, | | | | | | CORE | | + + + + + + | EGFR | 60 (L) | >60 mL/min | [facility] | | | - | | | LABORATORY | | | [facility] | | | SERVICES, | | | | | | CORE | | + + + + + + | EGFR NON | 50 (L) | >60 mL/min | [facility] | | | -JAE | | | LABORATORY | | | RICAN | | | SERVICES, | | | | | | CORE | | + + + + + + | SODIUM, | 140 | 136 - 145 | [facility] | | | PLASMA | | mmol/L | LABORATORY | | | (LAB) | | | SERVICES, | | | | | | CORE | | + + + + + + | POTASSIUM, | 5.0 | 3.4 - 5.0 | [facility] | [...] + + + + | CALCIUM(ALB | 9.0 | 8.6 - 10.2 | [facility] | [...] + + + + | TOTAL | 5.9 (L) | 6.4 - 8.2 g/dL | [facility] | | | PROTEIN, | | | LABORATORY | | | PLASMA | | | SERVICES, | | | (LAB) | | | CORE | | + + + + + + | ALBUMIN, | 2.5 (L) | 3.5 - 4.7 g/dL | [facility] | | | PLASMA | | | LABORATORY | | | (LAB) | | | SERVICES, | | | | | | CORE | | + + + + + + | ALK PHOS | 119 | 56 - 119 U/L | [facility] | | | | | | LABORATORY | | | | | | SERVICES, | | | | | | CORE | | + + + + + + | AST(SGOT) | 35 | <=41 U/L | [facility] | | | | | | LABORATORY | | | | | | SERVICES, | | | | | | CORE | | + + + + + + | ALT (SGPT) | 39 | <=60 U/L | [facility] | | [...] + + + | AST CMNT | Sl Hemo | | [facility] | [...] + + | Sample hemolyzed. Results for LD, K, and AST may be inaccurate. | [facility] | | Refer to comment under test. GFR is estimated using the MDRD | LABORATORY | | equation recommended by the National Kidney Disease Education Program. | SERVICES, CORE | | Estimated GFR Interpretive Information: <60 mL/min/1.73 sq m | | | Chronic Kidney Disease <15 mL/min/1.73 sq m | | | Kidney Failure Estimated GFR greater than 60 mL/min/1.73 | | | sq m is of limited clinical value. The MDRD equation is not valid in | | | the following situations: - Patients under 18 years of age - Severe | | | malnutrition or obesity - Vegetarian diet - Rapidly changing kidney | | | function - Amputees, paraplegics, or other muscle-wasting diseases | | + + + + + + + + | Performing | Address | City/State/Zipcode | Phone Number | | Organization | | | | + + + + + | [facility] | [address] | [place] [address] | | | SERVICES, CORE | [address] | | | + + + + + CAPILLARY BLOOD GLUCOSE (NO CHG), POC (05/08/2019 1:00 PM PDT) + +---------+ + + + | Component | Value | Ref Range | Performed | Pathologist | | | | | At | Signature | + +---------+ + + + | BLOOD | 109 (H) | 70 - 99 mg/dL | [facility] - | | | GLUCOSE, | | | [facility] | | | POC | | | [facility] | | | | | | OF CARE | | | | | | TESTS | | + +---------+ + + + + + | Specimen | + + | Blood | + + + + + + + | Performing | Address | City/State/Zipcode | Phone Number | | Organization | | | | + + + + + | [facility] | [address] | [place], [place] | | | [facility] | [address] | [address] | | | TESTS | | | | + + + + + COMPLETE METABOLIC SET (NA,K,CL,CO2,BUN,CREAT,GLUC,CA,AST,ALT,BILI TOTAL,ALK PHOS,ALB,PROT TOTAL) (05/08/2019 12:41 AM PDT) + + + + + [...] + + + | BUN, PLASMA | 44 (H) | 6 - 20 mg/dL | [...] | | | LABORATORY | | | [facility] | | | SERVICES, | | | [...] + + + + | SODIUM, | 140 [...] + + + + | CHLORIDE, | 108 | 97 - 108 mmol/L | [facility] [...] + + + + | CALCIUM, | 7.7 (L) | 8.6 - 10.2 | [facility] | | | PLASMA | | mg/dL | LABORATORY | | | (LAB) | | | SERVICES, | | | | | | CORE | | + + + + + + | CALCIUM(ALB | 8.7 | 8.6 - 10.2 | [facility] | | | CORRECTED) | | mg/dL | LABORATORY | | | | | | SERVICES, | | | | | | CORE | | + + + + + + | BILIRUBIN | 0.1 (L) | 0.3 - 1.2 mg/dL | [facility] | | | TOTAL | | | LABORATORY | | | | | | SERVICES, | | | | | | CORE | | + + + + + + | TOTAL | 6.0 (L) | 6.4 - 8.2 g/dL | [facility] | | | PROTEIN, | | | LABORATORY | | | PLASMA | | | SERVICES, | | | (LAB) | | | CORE | | + + + + + + | ALBUMIN, | 2.7 (L) | 3.5 - 4.7 g/dL | [facility] | | | PLASMA | | | LABORATORY | | | (LAB) | | | SERVICES, | | | | | | CORE | | + + + + + + | ALK PHOS | 109 | 56 - 119 U/L | [facility] | | | | | | LABORATORY | | | | | | SERVICES, | | | | | | CORE | | + + + + + + | AST(SGOT) | 37 | <=41 U/L | [facility] | | | | | | LABORATORY | | | | | | SERVICES, | | | | | | CORE | | + + + + + + | ALT (SGPT) | 35 | <=60 U/L | [facility] | | | | | | LABORATORY | | | | | | SERVICES, | | | | | | CORE | | + + + + + + | ANION GAP | 6 | 4 - 11 mmol/L | [facility] | | | | | | LABORATORY | | | | | | SERVICES, | | | | | | CORE | | + + + + + + | ANION | 9 [...] MDRD equation recommended by the National | [facility] | | Kidney Disease Education Program. Estimated GFR Interpretive | LABORATORY | | Information: <60 mL/min/1.73 sq m Chronic Kidney | SERVICES, CORE | | Disease <15 mL/min/1.73 sq m [...] | | | paraplegics, or other muscle-wasting diseases | | + + + + + + + + | Performing | Address | City/State/Zipcode | Phone Number | | Organization | | | | + + + + + | [facility] | [address] | [place] [address] | | | SERVICES, CORE | [address] | | | + + + + + CBC (HEMOGRAM) ONLY (05/07/2019 8:27 AM PDT) + + + + + + | Component | Value | Ref Range | Performed | Pathologist | | | | | At | Signature | + + + + + + | WHITE CELL | 11.60 (H) | 3.50 - 10.80 | [facility] | [...] + + + + | HEMOGLOBIN | 11.4 (L) | 13.5 - 17.5 | [facility] | | | | | g/dL | LABORATORY | | | | | | SERVICES, | | | | | | CORE | | + + + + + + | HEMATOCRIT | 34.6 (L) | 41.0 - 53.0 % | [facility] | | | | | | LABORATORY | | | | | | SERVICES, | | | | | | CORE | | + + + + + + | MCV | 87.8 | 80.0 - 100.0 fL | [facility] | | | | | | LABORATORY | | | | | | SERVICES, | | | | | | CORE | | + + + + + + | MCHC | 32.9 | 32.0 - 36.0 | [facility] | | | | | g/dL | LABORATORY | | | | | | SERVICES, | | | | | | CORE | | + + + + + + | RDW SD | 44.8 | 35.1 - 46.3 fL | [facility] | | | | | | LABORATORY | | | | | | SERVICES, | | | | | | CORE | | + + + + + + | PLATELET | 207 | 150 - 400 K/cu | [facility] | | | COUNT | | mm | LABORATORY | | | | | | SERVICES, | | | | | | CORE | | + + + + + + | MPV | 8.8 (L) | 9.7 - 12.3 fL | [...] | + + + + + | [facility] | [address] | [place] [address] | | | SERVICES, CORE | [address] | | | + + + + + TACROLIMUS, WHOLE BLOOD (05/07/2019 8:27 AM PDT) + +---------+ + + + | Component | Value | Ref Range | Performed | Pathologist | | | | | At | Signature | + +---------+ + + + | TACROLIMUS | 3.2 (L) | 5.0 - 15.0 | [facility] | | | ([facility] [address]) | | ng/mL | LABORATORY | | [...] + | Test performed by immunoassay using [employer] i2000. . | [facility] | | Samples for analysis of Tacrolimus should be collected 30 minutes to 1 | LABORATORY | | hour prior to the next dose so that the measured concentration of | SERVICES, | | drug represents trough levels. Some other factors influencing | SPECIAL IMM + | | therapeutic range, dose administered, and result interpretation | [facility] | | include time since transplantation, the organ transplanted, | | | co-administration of other immunosuppressants and interaction with | | | other drugs that may increase or decrease Tacrolimus concentrations. | | + + + + + + + + | Performing | Address | City/State/Zipcode | Phone Number | | Organization | | | | + + + + + | [facility] | [id number] | [place] [address] | | | SERVICES, SPECIAL | [address] | | | | IMM + [place] | | | | + + + + + MAGNESIUM, PLASMA (05/07/2019 8:27 AM PDT) + +-------+ + + + | Component | Value | Ref Range | Performed | Pathologist | | | | | At | Signature | + +-------+ + + + | MAGNESIUM,P | 2.3 | 1.6 - 2.6 mg/dL | [facility] [...] | + + + + + | [facility] | [address] | [place] [address] | | | SERVICES, CORE | [address] | | | + + + + + RENAL FUNCTION SET (NA,K,CL,CO2,BUN,CREAT,GLUC,CA,PHOS,ALB ) (05/07/2019 8:27 AM PDT) + + + + + + | Component | Value | Ref Range | Performed | Pathologist | | | | | At | Signature | + + + + + + | GLUCOSE, | 107 (H) | 70 - 99 mg/dL | [facility] | | | PLASMA | | | LABORATORY | | | (LAB) | | | SERVICES, | | | | | | CORE | | + + + + + + | BUN, PLASMA | 48 (H) | 6 - 20 mg/dL | [facility] | | | (LAB) | | | LABORATORY | | | | | | SERVICES, | | | | | | CORE | | + + + + + + | CREATININE | 1.73 (H) | 0.70 - 1.30 | [facility] | | | PLASMA | | mg/dL | LABORATORY | | | (LAB) | | | SERVICES, | | | | | | CORE | | + + + + + + | EGFR | 49 (L) | >60 mL/min | [facility] | | | - | | | LABORATORY | | | UGANDAN | | | SERVICES, | | | | | | CORE | | + + + + + + | EGFR NON | 40 (L) | >60 mL/min | [facility] | | | -JAE | | | LABORATORY | | | RICAN | | | SERVICES, | | | | | | CORE | | + + + + + + | SODIUM, | 139 | 136 - 145 | [facility] | | | PLASMA | | mmol/L | LABORATORY | | | (LAB) | | | SERVICES, | | | | | | CORE | | + + + + + + | POTASSIUM, | 4.9 | 3.4 - 5.0 | [facility] | | | PLASMA | | mmol/L | LABORATORY | | | (LAB) | | | SERVICES, | | | | | | CORE | | + + + + + + | CHLORIDE, | 110 (H) | 97 - 108 mmol/L | [facility] [...] + + + + | CALCIUM, | 7.5 (L) | 8.6 - 10.2 | [facility] | | | PLASMA | | mg/dL | LABORATORY | | | (LAB) | | | SERVICES, | | | | | | CORE | | + + + + + + | CALCIUM(ALB | 8.5 (L) | 8.6 - 10.2 | [facility] | | | CORRECTED) | | mg/dL | LABORATORY | | | | | | SERVICES, | | | | | | CORE | | + + + + + + | ALBUMIN, | 2.8 (L) | 3.5 - 4.7 g/dL | [facility] | | | PLASMA | | | LABORATORY | | | (LAB) | | | SERVICES, | | | | | | CORE | | + + + + + + | PHOSPHORUS, | 2.8 | 2.4 - 4.7 mg/dL | [facility] | | | PLASMA | | | LABORATORY | | | (LAB) | | | SERVICES, | | | | | | CORE | | + + + + + + | POTASSIUM | | | [facility] | | | CMNT | | | LABORATORY | | | | | | SERVICES, | | | | | | CORE | | + + + + + + | ANION GAP | 3 (L) | 4 - 11 mmol/L | [facility] | | | | | | LABORATORY | | | | | | SERVICES, | | | | | | CORE | | + + + + + + | ANION | 6 | 4 - 11 mmol/L | [facility] [...] MDRD equation recommended by the National | [facility] | | Kidney Disease Education Program. Estimated GFR Interpretive | LABORATORY | | Information: <60 mL/min/1.73 sq m Chronic Kidney | SERVICES, CORE | | Disease <15 mL/min/1.73 sq m [...] | | | paraplegics, or other muscle-wasting diseases | | + + + + + + + + | Performing | Address | City/State/Zipcode | Phone Number | | Organization | | | | + + + + + | [facility] | [address] | [place] [address] | | | SERVICES, CORE | [address] | | | + + + + + COMPLETE METABOLIC SET (NA,K,CL,CO2,BUN,CREAT,GLUC,CA,AST,ALT,BILI TOTAL,ALK PHOS,ALB,PROT TOTAL) (05/07/2019 12:26 AM PDT) + + + + + + | Component | Value | Ref Range | Performed | Pathologist | | | | | At | Signature | + + + + + + | GLUCOSE, | 142 (H) | 70 - 99 mg/dL | [facility] | | | PLASMA | | | LABORATORY | | | (LAB) | | | SERVICES, | | | | | | CORE | | + + + + + + | BUN, PLASMA | 50 (H) | 6 - 20 mg/dL | [facility] | | | (LAB) | | | LABORATORY | | | | | | SERVICES, | | | | | | CORE | | + + + + + + | CREATININE | 1.75 (H) | 0.70 - 1.30 | [facility] | | | PLASMA | | mg/dL | LABORATORY | | | (LAB) | | | SERVICES, | | | | | | CORE | | + + + + + + | EGFR | 48 (L) | >60 mL/min | [facility] | | | - | | | LABORATORY | | | UGANDAN | | | SERVICES, | | | | | | CORE | | + + + + + + | EGFR NON | 40 (L) | >60 mL/min | [facility] | [...] + + + + | CHLORIDE, | 106 | 97 - 108 mmol/L | [facility] | | | PLASMA | | | LABORATORY | | | (LAB) | | | SERVICES, | | | | | | CORE | | + + + + + + | TOTAL CO2, | 25 | 21 - 32 mmol/L | [facility] | | | PLASMA | | | LABORATORY | | | (LAB) | | | SERVICES, | | | | | | CORE | | + + + + + + | CALCIUM, | 7.9 (L) | 8.6 - 10.2 | [facility] | | | PLASMA | | mg/dL | LABORATORY | | | (LAB) | | | SERVICES, | | | | | | CORE | | + + + + + + | CALCIUM(ALB | 8.9 [...] + + + + | TOTAL | 6.5 | 6.4 - 8.2 g/dL | [facility] | | | PROTEIN, | | | LABORATORY | | | PLASMA | | | SERVICES, | | | (LAB) | | | CORE | | + + + + + + | ALBUMIN, | 2.8 (L) | 3.5 - 4.7 g/dL | [facility] | | | PLASMA | | | LABORATORY | | | (LAB) | | | SERVICES, | | | | | | CORE | | + + + + + + | ALK PHOS | 104 | 56 - 119 U/L | [facility] | | | | | | LABORATORY | | | | | | SERVICES, | | | | | | CORE | | + + + + + + | AST(SGOT) | 39 | <=41 U/L | [facility] | | | | | | LABORATORY | | | | | | SERVICES, | | | | | | CORE | | + + + + + + | ALT (SGPT) | 33 | <=60 U/L | [facility] | | [...] + + + + | ANION | 10 [...] + + + | AST CMNT | Sl Hemo | | [facility] | [...] + + | Sample hemolyzed. Results for LD, K, and AST may be inaccurate. | [facility] | | Refer to comment under test. GFR is estimated using the MDRD | LABORATORY | | equation recommended by the National Kidney Disease Education Program. | SERVICES, CORE | | Estimated GFR Interpretive Information: <60 mL/min/1.73 sq m | | | Chronic Kidney Disease <15 mL/min/1.73 sq m | | | Kidney Failure Estimated GFR greater than 60 mL/min/1.73 | | | sq m is of limited clinical value. The MDRD equation is not valid in | | | the following situations: - Patients under 18 years of age - Severe | | | malnutrition or obesity - Vegetarian diet - Rapidly changing kidney | | | function - Amputees, paraplegics, or other muscle-wasting diseases | | + + + + + + + + | Performing | Address | City/State/Zipcode | Phone Number | | Organization | | | | + + + + + | [facility] | [address] | [place] [address] | | | SERVICES, CORE | [address] | | | + + + + + CAPILLARY BLOOD GLUCOSE (NO CHG), POC (05/06/2019 6:16 PM PDT) + +---------+ + + + | Component | Value | Ref Range | Performed | Pathologist | | | | | At | Signature | + +---------+ + + + | BLOOD | 159 (H) | 70 - 99 mg/dL | [facility] - | | | GLUCOSE, | | | [place] | | | POC | | | [place] | | | | | | OF CARE | | | | | | TESTS | | + +---------+ + + + + + | Specimen | + + | Blood | + + + + + + + | Performing | Address | City/State/Zipcode | Phone Number | | Organization | | | | + + + + + | [facility] | [address] | [place], [place] | | | [facility] | [address] | [address] | | | TESTS | | | | + + + + + TACROLIMUS, WHOLE BLOOD (05/06/2019 8:03 AM PDT) + + + + + + | Component | Value | Ref Range | Performed | Pathologist | | | | | At | Signature | + + + + + + | TACROLIMUS | 4.1 (L)Comment: Please | 5.0 - 15.0 | [facility] | | | ([phone]) | pull lab 30 minutes | ng/mL | LABORATORY | | | | before morning tacrolim | | SERVICES, | | | | | | SPECIAL IMM | | | | | | + COAG | | + + + + + + + + | Specimen | + + | Blood - Blood | | (substance) | + + + + + | Narrative | Performed At | + + + | Test performed by immunoassay using [employer] i2000. . | [facility] | | Samples for analysis of Tacrolimus should be collected 30 minutes to 1 | LABORATORY | | hour prior to the next dose so that the measured concentration of | SERVICES, | | drug represents trough levels. Some other factors influencing | SPECIAL IMM + | | therapeutic range, dose administered, and result interpretation | [facility] | | include time since transplantation, the organ transplanted, | | | co-administration of other immunosuppressants and interaction with | | | other drugs that may increase or decrease Tacrolimus concentrations. | | + + + + + + + + | Performing | Address | City/State/Zipcode | Phone Number | | Organization | | | | + + + + + | [facility] | [address] | [place] [address] | | | L[place] SPECIAL | [address] | | | | IMM + COAG | | | | + + + + + COMPLETE METABOLIC SET (NA,K,CL,CO2,BUN,CREAT,GLUC,CA,AST,ALT,BILI TOTAL,ALK PHOS,ALB,PROT TOTAL) (05/06/2019 12:13 AM PDT) + + + + + + | Component | Value | Ref Range | Performed | Pathologist | | | | | At | Signature | + + + + + + | GLUCOSE, | 189 (H) | 70 - 99 mg/dL | [facility] | | | PLASMA | | | LABORATORY | | | (LAB) | | | SERVICES, | | | | | | CORE | | + + + + + + | BUN, PLASMA | 49 (H) | 6 - 20 mg/dL | [facility] | | | (LAB) | | | LABORATORY | | | | | | SERVICES, | | | | | | CORE | | + + + + + + | CREATININE | 2.21 (H) | 0.70 - 1.30 | [facility] | | | PLASMA | | mg/dL | LABORATORY | | | (LAB) | | | SERVICES, | | | | | | CORE | | + + + + + + | EGFR | 37 (L) | >60 mL/min | [facility] | | | - | | | LABORATORY | | | UGANDAN | | | SERVICES, | | | | | | CORE | | + + + + + + | EGFR NON | 30 (L) | >60 mL/min | [facility] | [...] + + + + | POTASSIUM, | 4.8 | 3.4 - 5.0 | [facility] | [...] + + + | TOTAL CO2, | 19 (L) | 21 - 32 mmol/L | [facility] | | | PLASMA | | | LABORATORY | | | (LAB) | | | SERVICES, | | | | | | CORE | | + + + + + + | CALCIUM, | 7.9 (L) | 8.6 - 10.2 | [facility] | | | PLASMA | | mg/dL | LABORATORY | | | (LAB) | | | SERVICES, | | | | | | CORE | | + + + + + + | CALCIUM(ALB | 8.8 [...] + + + + | TOTAL | 6.6 | 6.4 - 8.2 g/dL | [facility] | | | PROTEIN, | | | LABORATORY | | | PLASMA | | | SERVICES, | | | (LAB) | | | CORE | | + + + + + + | ALBUMIN, | 2.9 (L) | 3.5 - 4.7 g/dL | [facility] | | | PLASMA | | | LABORATORY | | | (LAB) | | | SERVICES, | | | | | | CORE | | + + + + + + | ALK PHOS | 81 | 56 - 119 U/L | [facility] | | | | | | LABORATORY | | | | | | SERVICES, | | | | | | CORE | | + + + + + + | AST(SGOT) | 37 | <=41 U/L | [facility] | | | | | | LABORATORY | | | | | | SERVICES, | | | | | | CORE | | + + + + + + | ALT (SGPT) | 31 | <=60 U/L | [facility] | | | | | | LABORATORY | | | | | | SERVICES, | | | | | | CORE | | + + + + + + | ANION GAP | 12 (H) | 4 - 11 mmol/L | [facility] | | | | | | LABORATORY | | | | | | SERVICES, | | | | | | CORE | | + + + + + + | ANION | 14 (H) | 4 - 11 mmol/L | [...] MDRD equation recommended by the National | [facility] | | Kidney Disease Education Program. Estimated GFR Interpretive | LABORATORY | | Information: <60 mL/min/1.73 sq m Chronic Kidney | SERVICES, CORE | | Disease <15 mL/min/1.73 sq m [...] | | | paraplegics, or other muscle-wasting diseases | | + + + + + + + + | Performing | Address | City/State/Zipcode | Phone Number | | Organization | | | | + + + + + | [facility] | [address] | [place] [address] | | | SERVICES, CORE | [address] | | | + + + + + BASIC METABOLIC SET (NA, K, CL, TCO2, BUN, CR, GLU, CA) (05/05/2019 4:11 PM PDT) + + + + + + | Component | Value | Ref Range | Performed | Pathologist | | | | | At | Signature | + + + + + + | GLUCOSE, | 137 (H) | 70 - 99 mg/dL | [facility] | | | PLASMA | | | LABORATORY | | | (LAB) | | | SERVICES, | | | | | | CORE | | + + + + + + | BUN, PLASMA | 48 (H) | 6 - 20 mg/dL | [facility] | | | (LAB) | | | LABORATORY | | | | | | SERVICES, | | | | | | CORE | | + + + + + + | CREATININE | 2.51 (H) | 0.70 - 1.30 | [facility] | | | PLASMA | | mg/dL | LABORATORY | | | (LAB) | | | SERVICES, | | | | | | CORE | | + + + + + + | EGFR | 32 (L) | >60 mL/min | [facility] | | | - | | | LABORATORY | | | UGANDAN | | | SERVICES, | | | | | | CORE | | + + + + + + | EGFR NON | 26 (L) | >60 mL/min | [facility] | | | -JAE | | | LABORATORY | | | RICAN | | | SERVICES, | | | | | | CORE | | + + + + + + | SODIUM, | 136 | 136 - 145 | [facility] | | | PLASMA | | mmol/L | LABORATORY | | | (LAB) | | | SERVICES, | | | | | | CORE | | + + + + + + | POTASSIUM, | 4.4 | 3.4 - 5.0 | [facility] | [...] + + + | TOTAL CO2, | 18 (L) | 21 - 32 mmol/L | [facility] | | | PLASMA | | | LABORATORY | | | (LAB) | | | SERVICES, | | | | | | CORE | | + + + + + + | CALCIUM, | 8.0 (L) | 8.6 - 10.2 | [facility] | | | PLASMA | | mg/dL | LABORATORY | | | (LAB) | | | SERVICES, | | | | | | CORE | | + + + + + + | ANION GAP | 13 (H) | 4 - 11 mmol/L | [...] MDRD equation recommended by the National | [facility] | | Kidney Disease Education Program. Estimated GFR Interpretive | LABORATORY | | Information: <60 mL/min/1.73 sq m Chronic Kidney | SERVICES, CORE | | Disease <15 mL/min/1.73 sq m [...] | | | paraplegics, or other muscle-wasting diseases | | + + + + + + + + | Performing | Address | City/State/Zipcode | Phone Number | | Organization | | | | + + + + + | [facility] | [address] | [place] [address] | | | SERVICES, CORE | [address] | | | + + + + + COMPLETE METABOLIC SET (NA,K,CL,CO2,BUN,CREAT,GLUC,CA,AST,ALT,BILI TOTAL,ALK PHOS,ALB,PROT TOTAL) (05/05/2019 6:33 AM PDT) + + + + + + | Component | Value | Ref Range | Performed | Pathologist | | | | | At | Signature | + + + + + + | GLUCOSE, | 149 (H) | 70 - 99 mg/dL | [facility] | | | PLASMA | | | LABORATORY | | | (LAB) | | | SERVICES, | | | | | | CORE | | + + + + + + | BUN, PLASMA | 33 (H) | 6 - 20 mg/dL | [facility] | | | (LAB) | | | LABORATORY | | | | | | SERVICES, | | | | | | CORE | | + + + + + + | CREATININE | 2.17 (H) | 0.70 - 1.30 | [facility] | | | PLASMA | | mg/dL | LABORATORY | | | (LAB) | | | SERVICES, | | | | | | CORE | | + + + + + + | EGFR | 38 (L) | >60 mL/min | [facility] | | | - | | | LABORATORY | | | UGANDAN | | | SERVICES, | | | | | | CORE | | + + + + + + | EGFR NON | 31 (L) | >60 mL/min | [facility] | | | -JAE | | | LABORATORY | | | RICAN | | | SERVICES, | | | | | | CORE | | + + + + + + | SODIUM, | 140 | 136 - 145 | [facility] | | | PLASMA | | mmol/L | LABORATORY | | | (LAB) | | | SERVICES, | | | | | | CORE | | + + + + + + | POTASSIUM, | 4.1 | 3.4 - 5.0 | [facility] | | | PLASMA | | mmol/L | LABORATORY | | | (LAB) | | | SERVICES, | | | | | | CORE | | + + + + + + | CHLORIDE, | 111 (H) | 97 - 108 mmol/L | [facility] | | | PLASMA | | | LABORATORY | | | (LAB) | | | SERVICES, | | | | | | CORE | | + + + + + + | TOTAL CO2, | 16 (L) | 21 - 32 mmol/L | [facility] | | | PLASMA | | | LABORATORY | | | (LAB) | | | SERVICES, | | | | | | CORE | | + + + + + + | CALCIUM, | 7.2 (L) | 8.6 - 10.2 | [facility] | | | PLASMA | | mg/dL | LABORATORY | | | (LAB) | | | SERVICES, | | | | | | CORE | | + + + + + + | CALCIUM(ALB | 8.5 (L) | 8.6 - 10.2 | [facility] | | | CORRECTED) | | mg/dL | LABORATORY | | | | | | SERVICES, | | | | | | CORE | | + + + + + + | BILIRUBIN | 0.1 (L) | 0.3 - 1.2 mg/dL | [facility] | | | TOTAL | | | LABORATORY | | | | | | SERVICES, | | | | | | CORE | | + + + + + + | TOTAL | 6.0 (L) | 6.4 - 8.2 g/dL | [facility] | | | PROTEIN, | | | LABORATORY | | | PLASMA | | | SERVICES, | | | (LAB) | | | CORE | | + + + + + + | ALBUMIN, | 2.4 (L) | 3.5 - 4.7 g/dL | [facility] | | | PLASMA | | | LABORATORY | | | (LAB) | | | SERVICES, | | | | | | CORE | | + + + + + + | ALK PHOS | 84 | 56 - 119 U/L | [facility] | | | | | | LABORATORY | | | | | | SERVICES, | | | | | | CORE | | + + + + + + | AST(SGOT) | 44 (H) | <=41 U/L | [facility] | | | | | | LABORATORY | | | | | | SERVICES, | | | | | | CORE | | + + + + + + | ALT (SGPT) | 32 | <=60 U/L | [facility] | | | | | | LABORATORY | | | | | | SERVICES, | | | | | | CORE | | + + + + + + | ANION GAP | 13 (H) | 4 - 11 mmol/L | [facility] | | | | | | LABORATORY | | | | | | SERVICES, | | | | | | CORE | | + + + + + + | ANION | 17 (H) | 4 - 11 mmol/L | [...] MDRD equation recommended by the National | [facility] | | Kidney Disease Education Program. Estimated GFR Interpretive | LABORATORY | | Information: <60 mL/min/1.73 sq m Chronic Kidney | SERVICES, CORE | | Disease <15 mL/min/1.73 sq m [...] | | | paraplegics, or other muscle-wasting diseases | | + + + + + + + + | Performing | Address | City/State/Zipcode | Phone Number | | Organization | | | | + + + + + | [facility] | [address] | [place] [address] | | | SERVICES, CORE | [address] | | | + + + + + CBC (HEMOGRAM) ONLY (05/05/2019 5:26 AM PDT) + + + + + + | Component | Value | Ref Range | Performed | Pathologist | | | | | At | Signature | + + + + + + | WHITE CELL | 7.43 | 3.50 - 10.80 | [facility] | | | COUNT | | K/cu mm | LABORATORY | | | | | | SERVICES, | | | | | | CORE | | + + + + + + | RED CELL | 3.39 (L) | 4.50 - 6.00 | [facility] | | | COUNT | | M/cu mm | LABORATORY | | | | | | SERVICES, | | | | | | CORE | | + + + + + + | HEMOGLOBIN | 10.1 (L) | 13.5 - 17.5 | [facility] | | | | | g/dL | LABORATORY | | | | | | SERVICES, | | | | | | CORE | | + + + + + + | HEMATOCRIT | 31.5 (L) | 41.0 - 53.0 % | [facility] | | | | | | LABORATORY | | | | | | SERVICES, | | | | | | CORE | | + + + + + + | MCV | 92.9 | 80.0 - 100.0 fL | [facility] | | | | | | LABORATORY | | | | | | SERVICES, | | | | | | CORE | | + + + + + + | MCHC | 32.1 | 32.0 - 36.0 | [facility] | | | | | g/dL | LABORATORY | | | | | | SERVICES, | | | | | | CORE | | + + + + + + | RDW SD | 48.0 (H) | 35.1 - 46.3 fL | [facility] | | | | | | LABORATORY | | | | | | SERVICES, | | | | | | CORE | | + + + + + + | PLATELET | 174 | 150 - 400 K/cu | [facility] [...] + + | [facility] | [address] | [place] [address] | | | SERVICES, DELM[place] | [address] | | | + + + + + TACROLIMUS, WHOLE BLOOD (05/05/2019 5:25 AM PDT) + + + + + + | Component | Value | Ref Range | Performed | Pathologist | | | | | At | Signature | + + + + + + | TACROLIMUS | 7.0Comment: Daily trough | 5.0 - 15.0 | [facility] | | | ([phone]) | level. Timing as per | ng/mL | LABORATORY | | | | pharmacy. | | SERVICES, | | | | | | SPECIAL IMM | | | | | | + COAG | | + + + + + + + + | Specimen | + + | Blood - Blood | | (substance) | + + + + + | Narrative | Performed At | + + + | Test performed by immunoassay using [employer] i2000. . | [facility] | | Samples for analysis of Tacrolimus should be collected 30 minutes to 1 | LABORATORY | | hour prior to the next dose so that the measured concentration of | SERVICES, | | drug represents trough levels. Some other factors influencing | SPECIAL IMM + | | therapeutic range, dose administered, and result interpretation | COAG | | include time since transplantation, the organ transplanted, | | | co-administration of other immunosuppressants and interaction with | | | other drugs that may increase or decrease Tacrolimus concentrations. | | + + + + + + + + | Performing | Address | City/State/Zipcode | Phone Number | | Organization | | | | + + + + + | [facility] | [address] | [place] [address] | | | SERVICES, SPECIAL | [address] | | | | IMM + COAG | | | | + + + + + X-RAY ABD LTD FEEDING TUBE EVAL PORTABLE (05/04/2019 8:16 PM PDT) + + | Specimen | + + | | + + + + + | Narrative | Performed At | + + + | EXAM: MD ABD LTD FEEDING TUBE EVAL INDICATION: DHT placement / | [facility] | | confirmation TECHNIQUE: Semi-upright portable view of the upper | RADIOLOGY VOICE | | abdomen. Comparison: Chest 05/04/2019, abdomen 01/15/18. | RECOGNITION 2 | | FINDINGS/IMPRESSION: Dobbhoff tube extends into the gastric body. | | | Non-obstructive bowel gas pattern in the partially visualized | | | abdomen. Free air under the diaphragm. Unchanged position of the | | | ETT tube and stable findings as compared to dedicated chest | | | radiograph. I have personally reviewed the images and, if | | | necessary, edited the report. I agree with the report as now | | | presented. Final signature: Neftali Beasley MD | | | 05/05/2019 10:17 AM Preliminary: Kassandra Zambrano MD 05/05/2019 | | | 8:41 AM Dictation initiated: Kassandra Zambrano MD 05/05/2019 8:37 | | | AM | | + + + + + | Procedure Note | + + | Service Account, AppRedeem Res In Interface - 05/05/2019 10:18 AM PDT EXAM: MD ABD LTD | | FEEDING TUBE EVAL INDICATION: DHT placement / confirmation TECHNIQUE: Semi-upright | | portable view of the upper abdomen. Comparison: Chest 05/04/2019, abdomen 01/15/18. | | FINDINGS/IMPRESSION: Dobbhoff tube extends into the gastric body. Non-obstructive bowel | | gas pattern in the partially visualized abdomen. Free air under the diaphragm. | | Unchanged position of the ETT tube and stable findings as compared to dedicated chest | | radiograph. I have personally reviewed the images and, if necessary, edited the report. | | I agree with the report as now presented. Final signature: Neftali Beasley MD | | 05/05/2019 10:17 AM Preliminary: Kassandra Zambrano MD 05/05/2019 8:41 AM Dictation | | initiated: Kassandra Zambrano MD 05/05/2019 8:37 AM | |Dobbhoff tube extends into the gastric body. Non-obstructive bowel gas pattern in the parti ally visualized abdomen. Free air under the diaphragm. | | | |Unchanged position of the ETT tube and stable findings as compared to dedicated chest radio graph. | | | |I have personally reviewed the images and, if necessary, edited the report. I agree with e report as now presented. | | | |Final signature: Neftali Beasley MD 05/05/2019 10:17 AM | |Preliminary: Kassandra Zambrano MD 05/05/2019 8:41 AM | |Dictation initiated: Kassandra Zambrano MD 05/05/2019 8:37 AM | + + + +---------+ + + | Performing | Address | City/State/Zipcode | Phone Number | | Organization | | | | + +---------+ + + | [facility] | | | | | VOICE RECOGNITION 2 | | | | + +---------+ + + X-RAY PORTABLE CHEST 1 VIEW (05/04/2019 7:35 PM PDT) + + | Specimen | + + | | + + + + + | Narrative | Performed At | + + + | EXAM: MD CHEST 1 VIEW HISTORY: ETT placement COMPARISON: | [facility] | | 09/07/2018 FINDINGS: Endotracheal tube in place approximately 4 | RADIOLOGY VOICE | | cm above the level of the farrah. No pneumothorax, pleural effusion, | RECOGNITION 2 | | focal consolidation or pulmonary edema. The cardiomediastinal | | | silhouette is within normal limits. The heart is normal in size. No | | | new acute osseous abnormality. IMPRESSION: Endotracheal tube | | | in place approximately 4 cm above the level of the farrah. No | | | pneumothorax. I have personally reviewed the images and, if | | | necessary, edited the report. I agree with the report as now | | | presented. Final signature: Kalyani Reilly MD 05/04/2019 7:40 PM | | | Preliminary: Kalyani Reilly MD Dictation initiated: Kalyani | | | MD Melba 05/04/2019 7:39 PM | | + + + + + | Procedure Note | + + | Service Account, Radiant Res In Interface - 05/04/2019 7:41 PM PDT EXAM: MD CHEST 1 | | VIEW HISTORY: ETT placement COMPARISON: 09/07/2018 FINDINGS: Endotracheal tube in place | | approximately 4 cm above the level of the farrah. No pneumothorax, pleural effusion, | | focal consolidation or pulmonary edema. The cardiomediastinal silhouette is within | | normal limits. The heart is normal in size. No new acute osseous abnormality. | | IMPRESSION: Endotracheal tube in place approximately 4 cm above the level of the farrah. | | No pneumothorax. I have personally reviewed the images and, if necessary, edited the | | report. I agree with the report as now presented. Final signature: Kalyani Reilly MD | | 05/04/2019 7:40 PM Preliminary: Kalyani Reilly MD Dictation initiated: Kalyani Reilly MD | | 05/04/2019 7:39 PM | | | |IMPRESSION: | | | |Endotracheal tube in place approximately 4 cm above the level of the farrah. No pneumothora x. | | | |I have personally reviewed the images and, if necessary, edited the report. I agree with e report as now presented. | | | |Final signature: Kalyani Reilly MD 05/04/2019 7:40 PM | |Preliminary: Kalyani Reilly MD | |Dictation initiated: Kalyani Reilly MD 05/04/2019 7:39 PM | + + + +---------+ + + | Performing | Address | City/State/Zipcode | Phone Number | | Organization | | | | + +---------+ + + | [facility] | | | | | [facility] | | | | + +---------+ + + CAPILLARY BLOOD GLUCOSE (NO CHG), POC (05/04/2019 6:41 PM PDT) + +---------+ + + + | Component | Value | Ref Range | Performed | Pathologist | | | | | At | Signature | + +---------+ + + + | BLOOD | 142 (H) | 70 - 99 mg/dL | [facility] - | | | GLUCOSE, | | | [facility] | | | POC | | | [facility] | | | | | | [facility]ARE | | | | | | TESTS | | + +---------+ + + + + + | Specimen | + + | Blood | + + + + + + + | Performing | Address | City/State/Zipcode | Phone Number | | Organization | | | | + + + + + | [facility] | [address] | [place], [place] | | | [facility] [place] [facility] | [address] | [address] | | | TESTS | | | | + + + + + CBC (HEMOGRAM) ONLY (05/04/2019 6:36 PM PDT) + + + + + + | Component | Value | Ref Range | Performed | Pathologist | | | | | At | Signature | + + + + + + | WHITE CELL | 9.74 | 3.50 - 10.80 | [facility] | [...] + + + + | HEMOGLOBIN | 12.4 (L) | 13.5 - 17.5 | [facility] | | | | | g/dL | LABORATORY | | | | | | SERVICES, | | | | | | CORE | | + + + + + + | HEMATOCRIT | 38.7 (L) | 41.0 - 53.0 % | [facility] | | | | | | LABORATORY | | | | | | SERVICES, | | | | | | CORE | | + + + + + + | MCV | 88.6 | 80.0 - 100.0 fL | [facility] | | | | | | LABORATORY | | | | | | SERVICES, | | | | | | CORE | | + + + + + + | MCHC | 32.0 | 32.0 - 36.0 | [facility] | | | | | g/dL | LABORATORY | | | | | | SERVICES, | | | | | | CORE | | + + + + + + | RDW SD | 44.6 | 35.1 - 46.3 fL | [facility] | | | | | | LABORATORY | | | | | | SERVICES, | | | | | | CORE | | + + + + + + | PLATELET | 210 | 150 - 400 K/cu | [facility] [...] | + + + + + | [facility] | [address] | [place] [address] | | | SERVICES, CORE | [address] | | | + + + + + MAGNESIUM, PLASMA (05/04/2019 6:36 PM PDT) + +---------+ + + + | Component | Value | Ref Range | Performed | Pathologist | | | | | At | Signature | + +---------+ + + + | MAGNESIUM,P | 1.4 (L) | 1.6 - 2.6 mg/dL | [facility] [...] + + | [facility] | [address] | [place] [address] | | | SERVICES, CORE | [address] | | | + + + + + RENAL FUNCTION SET (NA,K,CL,CO2,BUN,CREAT,GLUC,CA,PHOS,ALB ) (05/04/2019 6:36 PM PDT) + + + + + + | Component | Value | Ref Range | Performed | Pathologist | | | | | At | Signature | + + + + + + | GLUCOSE, | 138 (H) | 70 - 99 mg/dL | [facility] | | | PLASMA | | | LABORATORY | | | (LAB) | | | LYNETTE, | | | [...] + + + + | CREATININE | 1.79 (H) | 0.70 - 1.30 | [facility] | | | PLASMA | | mg/dL | LABORATORY | | | (LAB) | | | SERVICES, | | | | | | CORE | | + + + + + + | EGFR | 47 (L) | >60 mL/min | [facility] | | | - | | | LABORATORY | | | UGANDAN | | | SERVICES, | | | | | | CORE | | + + + + + + | EGFR NON | 39 (L) | >60 mL/min | [facility] | | | -JAE | | | LABORATORY | | | RICAN | | | SERVICES, | | | | | | CORE | | + + + + + + | SODIUM, | 140 | 136 - 145 | [facility] | | | PLASMA | | mmol/L | LABORATORY | | | (LAB) | | | SERVICES, | | | | | | CORE | | + + + + + + | POTASSIUM, | 4.6 | 3.4 - 5.0 | [facility] | | | PLASMA | | mmol/L | LABORATORY | | | (LAB) | | | SERVICES, | | | | | | CORE | | + + + + + + | CHLORIDE, | 108 | 97 - 108 mmol/L | [facility] [...] + + + + | CALCIUM, | 8.1 (L) | 8.6 - 10.2 | [facility] | | | PLASMA | | mg/dL | LABORATORY | | | (LAB) | | | SERVICES, | | | | | | CORE | | + + + + + + | CALCIUM(ALB | 9.0 | 8.6 - 10.2 | [facility] | | | CORRECTED) | | mg/dL | LABORATORY | | | | | | SERVICES, | | | | | | CORE | | + + + + + + | ALBUMIN, | 2.9 (L) | 3.5 - 4.7 g/dL | [facility] | | | PLASMA | | | LABORATORY | | | (LAB) | | | SERVICES, | | | | | | CORE | | + + + + + + | PHOSPHORUS, | 3.5 | 2.4 - 4.7 mg/dL | [facility] [...] + + + + | ANION | 10 [...] + + | Sample hemolyzed. Results for LD, K, and AST may be inaccurate. | [facility] | | Refer to comment under test. GFR is estimated using the MDRD | LABORATORY | | equation recommended by the National Kidney Disease Education Program. | SERVICES, CORE | | Estimated GFR Interpretive Information: <60 mL/min/1.73 sq m | | | Chronic Kidney Disease <15 mL/min/1.73 sq m | | | Kidney Failure Estimated GFR greater than 60 mL/min/1.73 | | | sq m is of limited clinical value. The MDRD equation is not valid in | | | the following situations: - Patients under 18 years of age - Severe | | | malnutrition or obesity - Vegetarian diet - Rapidly changing kidney | | | function - Amputees, paraplegics, or other muscle-wasting diseases | | + + + + + + + + | Performing | Address | City/State/Zipcode | Phone Number | | Organization | | | | + + + + + | [facility] | [address] | [place] [address] | | | DELMIS OJEDA | [address] | | | + + + + + SURGICAL PATHOLOGY (05/04/2019 2:26 PM PDT) + + + + + + | Component | Value | Ref Range | Performed | Pathologist | | | | | At | Signature | + + + + + + | Clinical | The patient is a 59-year | | [facility] | | | History | old man with a history | | DEPARTMENT | | | | of parotitis and | | OF | | | | obstructing stone, as | | PATHOLOGY | | | | well as 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 | | | | + + + + + + | Final | A. Skin and soft tissue, | | [facility] | Electronically | | Pathologic | left neck, excision: | | DEPARTMENT | signed by | | Diagnosis | Actinic keratosis with | | OF | Dina Dyson | | | ulceration and | | PATHOLOGY | MD Marcial on | | | granulation tissue.B. | | | 05/10/2019 at | | | Skin and soft tissue, | | | 6:33 PM | | | left parotid stone, | | | | | | excision: Calculus. | | | | | | C. Skin and soft tissue, | | | | | | left neck, excision #2: | | | | | | Actinic keratosis | | | | | | with ulceration and | | | | | | granulation tissue.Case | | | | | | seen by:Brendan Ochoa, | | | | | | | | | | | | | | | | | | Pathology Resident | | | | | | Dina Ceja MD | | | | | | | | | | | | PathologistPathology, | | | | | | [facility] | | | | | | University electronic | | | | | | [...] + + + | Gross | Received fresh are 3 | | [facility] | | | Description | cotinines labeled with | | DEPARTMENT | | | | the patient's name | | OF | | | | (initials TRH) and | | PATHOLOGY | | | | medical record number | | | | | | [id number]. Neck, Left | | | | | | Neck Skin: Received | | | | | | labeled "left neck | | | | | | skin-1" is a reyna-white | | | | | | skin ellipse measuring | | | | | | 3.3 x 1.5 cm with | | | | | | underlying reyna-yellow | | | | | | soft tissue excised to a | | | | | | maximum depth of 0.7 | | | | | | cm. A stitch is present | | | | | | on one tip, however no | | | | | | orientation is provided. | | | | | | The stitch is | | | | | | designated as 12:00. | | | | | | The specimen is inked | | | | | | 6 o'clock blue, | | | | | | 12 o'clock black. | | | | | | The surface is | | | | | | remarkable for an | | | | | | eccentric 1.2 x 1.0 | | | | | | point cm area of | | | | | | irregularity with a | | | | | | central area of mild | | | | | | ulceration coming to | | | | | | within 1.0 cm of 12:00, | | | | | | 0.2 cm of 3:00, 1.5 cm | | | | | | of 6:00, and 0.2 cm of | | | | | | 9:00. No gross invasion | | | | | | is identified, with the | | | | | | lesion 0.3 cm from the | | | | | | deep margin. The | | | | | | specimen is submitted | | | | | | entirely from 12:00-6:00 | | | | | | as follows:A1, 12:00 | | | | | | tip, bisectedA2-A3, | | | | | | Cross sections with | | | | | | lesionA4, 6:00 tip, | | | | | | bisectedB. Neck, Left | | | | | | Carotid Stone: Received | | | | | | labeled "left carotid | | | | | | stone" is a 0.4 x 0.2 x | | | | | | 0.1 cm reyna-yellow, | | | | | | calcified portion of | | | | | | soft tissue, submitted | | | | | | entirely in B1 following | | | | | | decalcification.C. | | | | | | Neck, Left Neck Skin: | | | | | | Received labeled "left | | | | | | neck skin-3" is a | | | | | | reyna-pink skin ellipse | | | | | | measuring 4.9 x 2.4 cm | | | | | | with underlying | | | | | | reyna-yellow soft tissue | | | | | | excised to a maximum | | | | | | depth of 0.3 cm. A | | | | | | stitch is present on one | | | | | | tip, however no | | | | | | orientation is provided. | | | | | | The stitch is | | | | | | designated as 12:00. | | | | | | The specimen is inked | | | | | | 12-6 o'clock blue, | | | | | | 6--12 o'clock black. | | | | | | The surface is | | | | | | remarkable for an | | | | | | eccentric 2.5 x 2.2 | | | | | | point cm area of | | | | | | irregularity with a | | | | | | central area of mild | | | | | | ulceration coming to | | | | | | within 1.0 cm of 12:00, | | | | | | 0.1 cm of 3:00, 2.4 cm | | | | | | of 6:00, and 0.2 cm of | | | | | | 9:00. No gross invasion | | | | | | is identified, with the | | | | | | lesion 0.3 cm from the | | | | | | deep margin. The | | | | | | specimen is submitted | | | | | | entirely from 12:00-6:00 | | | | | | as follows:C1, 12:00 | | | | | | tip, bisectedC2-C5, | | | | | | Cross sections with | | | | | | lesionC6, 6:00 tip, | | | | | | bisectedSLG | | | | + + + [...] | | | | laboratories. It has not | | | | | | been cleared or | | | | [...] | | | | | laboratory testing. If | | | | | | immunohistochemical | | | | | | analysis (IHC) was | | | | | | performed concurrently | | | | | | with flow cytometry, the | | | | | | IHC was done to allow | | | | | | assessment of | | | | | | immunoarchitecture, | | | | | | which is not supplied by | | | | | | flow cytometry. Flow | | | | | | cytometry enables better | | | | | | assessment of clonality | | | | | | and antigen aberrancy | | | | | | than IHC. Appropriate | | | | | | positive controls and/or | | | | | | negative controls were | | | | | | used for all stains, | | | | | | including | | | | | | immunohistochemical | | | | | | stains, special stains, | | | | | | and in situ | | | | | | hybridization, and these | | | | | | reacted appropriately. | | | | + + + + + + + + | Specimen | + + | Tissue - Neck | | structure (body | | structure) | + + | Tissue - Neck | | structure (body | | structure) | + + | Tissue - Neck | | structure (body | | structure) | + + + + + + + | Performing | Address | City/State/Zipcode | Phone Number | | Organization | | | | + + + + + | [facility] | [address] | [place] [address] | | | PATHOLOGY | [address] | | | + + + + + COMPLETE METABOLIC SET (NA,K,CL,CO2,BUN,CREAT,GLUC,CA,AST,ALT,BILI TOTAL,ALK PHOS,ALB,PROT TOTAL) (05/04/2019 5:00 AM PDT) + + + + + + | Component | Value | Ref Range | Performed | Pathologist | | | | | At | Signature | + + + + + + | GLUCOSE, | 104 (H) | 70 - 99 mg/dL | [...] + + + + | CREATININE | 1.46 (H) | 0.70 - 1.30 | [facility] | | | PLASMA | | mg/dL | LABORATORY | | | (LAB) | | | SERVICES, | | | | | | CORE | | + + + + + + | EGFR | 59 (L) | >60 mL/min | [facility] | | | - | | | LABORATORY | | | UGANDAN | | | SERVICES, | | | | | | CORE | | + + + + + + | EGFR NON | 49 (L) | >60 mL/min | [facility] | [...] + + + + | POTASSIUM, | 4.6 | 3.4 - 5.0 | [facility] | [...] + + + + | CALCIUM(ALB | 9.6 | 8.6 - 10.2 | [facility] | [...] + + + + | TOTAL | 7.1 | 6.4 - 8.2 g/dL | [facility] | | | PROTEIN, | | | LABORATORY | | | PLASMA | | | SERVICES, | | | (LAB) | | | CORE | | + + + + + + | ALBUMIN, | 2.8 (L) | 3.5 - 4.7 g/dL | [facility] | | | PLASMA | | | LABORATORY | | | (LAB) | | | SERVICES, | | | | | | CORE | | + + + + + + | ALK PHOS | 153 (H) | 56 - 119 U/L | [facility] | | | | | | LABORATORY | | | | | | SERVICES, | | | | | | CORE | | + + + + + + | AST(SGOT) | 60 (H) | <=41 U/L | [facility] | | | | | | LABORATORY | | | | | | SERVICES, | | | | | | CORE | | + + + + + + | ALT (SGPT) | 44 | <=60 U/L | [facility] | | [...] + + + + | ANION | 10 [...] + + + | AST CMNT | Sl Hemo | | [facility] | [...] + + | Sample hemolyzed. Results for LD, K, and AST may be inaccurate. | [facility] | | Refer to comment under test. GFR is estimated using the MDRD | LABORATORY | | equation recommended by the National Kidney Disease Education Program. | SERVICES, CORE | | Estimated GFR Interpretive Information: <60 mL/min/1.73 sq m | | | Chronic Kidney Disease <15 mL/min/1.73 sq m | | | Kidney Failure Estimated GFR greater than 60 mL/min/1.73 | | | sq m is of limited clinical value. The MDRD equation is not valid in | | | the following situations: - Patients under 18 years of age - Severe | | | malnutrition or obesity - Vegetarian diet - Rapidly changing kidney | | | function - Amputees, paraplegics, or other muscle-wasting diseases | | + + + + + + + + | Performing | Address | City/State/Zipcode | Phone Number | | Organization | | | | + + + + + | [facility] | [address] | [place] [address] | | | SERVICES, CORE | [address] | | | + + + + + COMPLETE METABOLIC SET (NA,K,CL,CO2,BUN,CREAT,GLUC,CA,AST,ALT,BILI TOTAL,ALK PHOS,ALB,PROT TOTAL) (05/03/2019 7:00 AM PDT) + + + + + + | Component | Value | Ref Range | Performed | Pathologist | | | | | At | Signature | + + + + + + | GLUCOSE, | 92 | 70 - 99 mg/dL | [facility] | | | PLASMA | | | LABORATORY | | | (LAB) | | | SERVICES, | | | | | | CORE | | + + + + + + | BUN, PLASMA | 26 (H) | 6 - 20 mg/dL | [facility] | | | (LAB) | | | LABORATORY | | | | | | SERVICES, | | | | | | CORE | | + + + + + + | CREATININE | 1.50 (H) | 0.70 - 1.30 | [facility] | | | PLASMA | | mg/dL | LABORATORY | | | (LAB) | | | SERVICES, | | | | | | CORE | | + + + + + + | EGFR | 58 (L) | >60 mL/min | [facility] | | | - | | | LABORATORY | | | UGANDAN | | | SERVICES, | | | | | | CORE | | + + + + + + | EGFR NON | 48 (L) | >60 mL/min | [facility] | [...] + + + + | POTASSIUM, | 4.9 | 3.4 - 5.0 | [facility] | [...] + + + + | CALCIUM(ALB | 9.9 [...] + + + + | TOTAL | 7.7 | 6.4 - 8.2 g/dL | [facility] | | | PROTEIN, | | | LABORATORY | | | PLASMA | | | SERVICES, | | | (LAB) | | | CORE | | + + + + + + | ALBUMIN, | 3.0 (L) | 3.5 - 4.7 g/dL | [facility] | | | PLASMA | | | LABORATORY | | | (LAB) | | | SERVICES, | | | | | | CORE | | + + + + + + | ALK PHOS | 151 (H) | 56 - 119 U/L | [facility] | | | | | | LABORATORY | | | | | | SERVICES, | | | | | | CORE | | + + + + + + | AST(SGOT) | 73 (H) | <=41 U/L | [facility] | | | | | | LABORATORY | | | | | | SERVICES, | | | | | | CORE | | + + + + + + | ALT (SGPT) | 41 | <=60 U/L | [facility] | | | | | | LABORATORY | | | | | | SERVICES, | | | | | | CORE | | + + + + + + | ANION GAP | 4 | 4 - 11 mmol/L | [facility] | | | | | | LABORATORY | | | | | | SERVICES, | | | | | | CORE | | + + + + + + | ANION | 6 | 4 - 11 mmol/L | [facility] | | | GAP(ALB | | | LABORATORY | | | CORRECTED) | | | SERVICES, | | | | | | CORE | | + + + + + + | POTASSIUM | Mod Hemo | | [facility] | | | CMNT | | | LABORATORY | | | | | | SERVICES, | | | | | | CORE | | + + + + + + | BILI T CMNT | Mod Hemo | | [facility] | | | | | | LABORATORY | | | | | | SERVICES, | | | | | | CORE | | + + + + + + | AST CMNT | Mod Hemo | | [facility] | | | [...] for K, Total Bili, Direct Bili, AST, LDH, | [facility] | | or HDL may be inaccurate. Refer to comment under test result. GFR is | LABORATORY | | estimated using the MDRD equation recommended by the National Kidney | SERVICES, CORE | | Disease Education Program. Estimated GFR Interpretive Information: | | | <60 mL/min/1.73 sq m Chronic Kidney Disease <15 | | | mL/min/1.73 sq m Kidney Failure Estimated GFR | | | greater than 60 mL/min/1.73 sq m is of limited clinical value. The | | | MDRD equation is not valid in the following situations: - Patients | | | under 18 years of age - Severe malnutrition or obesity - Vegetarian | | | diet - Rapidly changing kidney function - Amputees, paraplegics, or | | | other muscle-wasting diseases | | + + + + + + + + | Performing | Address | City/State/Zipcode | Phone Number | | Organization | | | | + + + + + | [facility] | [address] | [place] [address] | | | SERVICES, CORE | [address] | | | + + + + + COMPLETE METABOLIC SET (NA,K,CL,CO2,BUN,CREAT,GLUC,CA,AST,ALT,BILI TOTAL,ALK PHOS,ALB,PROT TOTAL) (05/02/2019 5:00 AM PDT) + + + + + [...] + + + | BUN, PLASMA | 25 (H) | 6 - 20 mg/dL | [facility] | | | (LAB) | | | LABORATORY | | | | | | SERVICES, | | | | | | CORE | | + + + + + + | CREATININE | 1.57 (H) | 0.70 - 1.30 | [facility] | | | PLASMA | | mg/dL | LABORATORY | | | (LAB) | | | SERVICES, | | | | | | CORE | | + + + + + + | EGFR | 55 (L) | >60 mL/min | [facility] | | | - | | | LABORATORY | | | U[facility]AN | | | SERVICES, | | | | | | CORE | | + + + + + + | EGFR NON | 45 (L) | >60 mL/min | [facility] | [...] + + + + | POTASSIUM, | 4.2 | 3.4 - 5.0 | [facility] | [...] + + + + | CALCIUM, | 8.9 | 8.6 - 10.2 | [facility] | | | PLASMA | | mg/dL | LABORATORY | | | (LAB) | | | SERVICES, | | | | | | CORE | | + + + + + + | CALCIUM(ALB | 9.8 | 8.6 - 10.2 | [facility] | [...] + + + + | TOTAL | 7.4 | 6.4 - 8.2 g/dL | [facility] | | | PROTEIN, | | | LABORATORY | | | PLASMA | | | SERVICES, | | | (LAB) | | | CORE | | + + + + + + | ALBUMIN, | 2.9 (L) | 3.5 - 4.7 g/dL | [facility] | | | PLASMA | | | LABORATORY | | | (LAB) | | | SERVICES, | | | | | | CORE | | + + + + + + | ALK PHOS | 135 (H) | 56 - 119 U/L | [facility] | | | | | | LABORATORY | | | | | | SERVICES, | | | | | | CORE | | + + + + + + | AST(SGOT) | 63 (H) | <=41 U/L | [facility] | | | | | | LABORATORY | | | | | | SERVICES, | | | | | | CORE | | + + + + + + | ALT (SGPT) | 40 | <=60 U/L | [facility] | | | | | | LABORATORY | | | | | | SERVICES, | | | | | | CORE | | + + + + + + | ANION GAP | 3 (L) | 4 - 11 mmol/L | [facility] | | | | | | LABORATORY | | | | | | SERVICES, | | | | | | CORE | | + + + + + + | ANION | 5 | 4 - 11 mmol/L [...] + + + | AST CMNT | Sl Hemo | | [facility] | [...] + + | Sample hemolyzed. Results for LD, K, and AST may be inaccurate. | [facility] | | Refer to comment under test. GFR is estimated using the MDRD | LABORATORY | | equation recommended by the National Kidney Disease Education Program. | SERVICES, CORE | | Estimated GFR Interpretive Information: <60 mL/min/1.73 sq m | | | Chronic Kidney Disease <15 mL/min/1.73 sq m | | | Kidney Failure Estimated GFR greater than 60 mL/min/1.73 | | | sq m is of limited clinical value. The MDRD equation is not valid in | | | the following situations: - Patients under 18 years of age - Severe | | | malnutrition or obesity - Vegetarian diet - Rapidly changing kidney | | | function - Amputees, paraplegics, or other muscle-wasting diseases | | + + + + + + + + | Performing | Address | City/State/Zipcode | Phone Number | | Organization | | | | + + + + + | [facility] | [address] | [place] [address] | | | SERVICES, CORE | [address] | | | + + + + + TACROLIMUS, WHOLE BLOOD (05/02/2019 5:00 AM PDT) + +---------+ + + + | Component | Value | Ref Range | Performed | Pathologist | | | | | At | Signature | + +---------+ + + + | TACROLIMUS | 4.5 (L) | 5.0 - 15.0 | [facility] | | | ([address]) | | ng/mL | LABORATORY | | [...] | Test performed by immunoassay using [employer] i2000. . | [facility] | | Samples for analysis of Tacrolimus should be collected 30 minutes to 1 | LABORATORY | | hour prior to the next dose so that the measured concentration of | SERVICES, | | drug represents trough levels. Some other factors influencing | [facility] + | | therapeutic range, dose administered, and result interpretation | [facility] | | include time since transplantation, the organ transplanted, | | | co-administration of other immunosuppressants and interaction with | | | other drugs that may increase or decrease Tacrolimus concentrations. | | + + + + + + + + | Performing | Address | City/State/Zipcode | Phone Number | | Organization | | | | + + + + + | [facility] | [address] | [place] [address] | | | SERVICES, SPECIAL | [address] | | | | IMM + COAG | | | | + + + + + COMPLETE METABOLIC SET (NA,K,CL,CO2,BUN,CREAT,GLUC,CA,AST,ALT,BILI TOTAL,ALK PHOS,ALB,PROT TOTAL) (05/01/2019 5:19 AM PDT) + + + + + [...] + + + + | CREATININE | 1.59 (H) | 0.70 - 1.30 | [facility] | | | PLASMA | | mg/dL | LABORATORY | | | (LAB) | | | SERVICES, | | | | | | CORE | | + + + + + + | EGFR | 54 (L) | >60 mL/min | [facility] | | | - | | | LABORATORY | | | U[facility]AN | | | SERVICES, | | | | | | CORE | | + + + + + + | EGFR NON | 44 (L) | >60 mL/min | [facility] | | | -JAE | | | LABORATORY | | | RICAN | | | SERVICES, | | | | | | CORE | | + + + + + + | SODIUM, | 139 | 136 - 145 | [facility] | | | PLASMA | | mmol/L | LABORATORY | | | (LAB) | | | SERVICES, | | | | | | CORE | | + + + + + + | POTASSIUM, | 4.6 | 3.4 - 5.0 | [facility] | [...] + + + + | CALCIUM, | 8.7 | 8.6 - 10.2 | [facility] | | | PLASMA | | mg/dL | LABORATORY | | | (LAB) | | | SERVICES, | | | | | | CORE | | + + + + + + | CALCIUM(ALB | 9.7 | 8.6 - 10.2 | [facility] | [...] + + + + | TOTAL | 7.1 | 6.4 - 8.2 g/dL | [facility] | | | PROTEIN, | | | LABORATORY | | | PLASMA | | | SERVICES, | | | (LAB) | | | CORE | | + + + + + + | ALBUMIN, | 2.8 (L) | 3.5 - 4.7 g/dL | [facility] | | | PLASMA | | | LABORATORY | | | (LAB) | | | SERVICES, | | | | | | CORE | | + + + + + + | ALK PHOS | 143 (H) | 56 - 119 U/L | [facility] | | | | | | LABORATORY | | | | | | SERVICES, | | | | | | CORE | | + + + + + + | AST(SGOT) | 69 (H) | <=41 U/L | [facility] | | | | | | LABORATORY | | | | | | SERVICES, | | | | | | CORE | | + + + + + + | ALT (SGPT) | 42 | <=60 U/L | [facility] | | | | | | LABORATORY | | | | | | SERVICES, | | | | | | CORE | | + + + + + + | ANION GAP | 6 | 4 - 11 mmol/L | [facility] | | | | | | LABORATORY | | | | | | SERVICES, | | | | | | CORE | | + + + + + + | ANION | 9 [...] + + + | AST CMNT | Sl Hemo | | [facility] | [...] + + | Sample hemolyzed. Results for LD, K, and AST may be inaccurate. | [facility] | | Refer to comment under test. GFR is estimated using the MDRD | LABORATORY | | equation recommended by the National Kidney Disease Education Program. | SERVICES, CORE | | Estimated GFR Interpretive Information: <60 mL/min/1.73 sq m | | | Chronic Kidney Disease <15 mL/min/1.73 sq m | | | Kidney Failure Estimated GFR greater than 60 mL/min/1.73 | | | sq m is of limited clinical value. The MDRD equation is not valid in | | | the following situations: - Patients under 18 years of age - Severe | | | malnutrition or obesity - Vegetarian diet - Rapidly changing kidney | | | function - Amputees, paraplegics, or other muscle-wasting diseases | | + + + + + + + + | Performing | Address | City/State/Zipcode | Phone Number | | Organization | | | | + + + + + | [facility] | [address] | [place] [address] | | | SERVICES, CORE | [address] | | | + + + + + SIROLIMUS QUANTITATION, WHOLE BLOOD (04/30/2019 7:01 AM PDT) + +-------+ + + + | Component | Value | Ref Range | Performed | Pathologist | | | | | At | Signature | + +-------+ + + + | SIROLIMUS, | 8.5 | 4.0 - 12.0 | [facility] | [...] | Test performed by immunoassay using [employer] i2000. Kidney | [facility] | | transplant (in combination with Cyclosporine): 4-12 ng/mL Toxic | LABORATORY | | value: > 25 ng/mL Interpretive Data: A range of 12-20 ng/mL has been | SERVICES, | | suggested for liver transplant. Samples for analysis of Sirolimus | [facility] + | | should be collected 30 minutes to 1 hour prior to the next dose so | [facility] | | that the measured concentration of drug represents trough levels. The | | | optimal therapeutic range for a given patient may differ from this | | | suggested range based on the indication for therapy, treatment phase | | | (initiation or maintenance), use in combination with other drugs, time | | | of specimen collection relative to prior dose and/or type of | | | transplanted organ. | | + + + + + + + + | Performing | Address | City/State/Zipcode | Phone Number | | Organization | | | | + + + + + | [facility] | [address] | [place] [address] | | | [facility] | [address] | | | | IMM + [place] | | | | + + + + + COMPLETE METABOLIC SET (NA,K,CL,CO2,BUN,CREAT,GLUC,CA,AST,ALT,BILI TOTAL,ALK PHOS,ALB,PROT TOTAL) (04/30/2019 7:00 AM PDT) + + + + + + | Component | Value | Ref Range | Performed | Pathologist | | | | | At | Signature | + + + + + + | GLUCOSE, | 104 (H) | 70 - 99 mg/dL | [...] + + + + | CREATININE | 1.42 (H) | 0.70 - 1.30 | [facility] | | | PLASMA | | mg/dL | LABORATORY | | | (LAB) | | | SERVICES, | | | | | | CORE | | + + + + + + | EGFR | >60 | >60 mL/min | [facility] | | | - | | | LABORATORY | | | [facility] | | | SERVICES, | | | | | | CORE | | + + + + + + | EGFR NON | 51 (L) | >60 mL/min | [facility] | [...] + + + + | POTASSIUM, | 4.4 | 3.4 - 5.0 | [facility] | [...] + + + + | CALCIUM, | 9.0 | 8.6 - 10.2 | [facility] | | | PLASMA | | mg/dL | LABORATORY | | | (LAB) | | | SERVICES, | | | | | | CORE | | + + + + + + | CALCIUM(ALB | 9.7 | 8.6 - 10.2 | [facility] | [...] + + + + | TOTAL | 7.7 | 6.4 - 8.2 g/dL | [facility] | | | PROTEIN, | | | LABORATORY | | | PLASMA | | | SERVICES, | | | (LAB) | | | CORE | | + + + + + + | ALBUMIN, | 3.1 (L) | 3.5 - 4.7 g/dL | [facility] | | | PLASMA | | | LABORATORY | | | (LAB) | | | SERVICES, | | | | | | CORE | | + + + + + + | ALK PHOS | 146 (H) | 56 - 119 U/L | [facility] | | | | | | LABORATORY | | | | | | SERVICES, | | | | | | CORE | | + + + + + + | AST(SGOT) | 61 (H) | <=41 U/L | [facility] | | | | | | LABORATORY | | | | | | SERVICES, | | | | | | CORE | | + + + + + + | ALT (SGPT) | 33 | <=60 U/L | [facility] | | [...] + + + + | ANION | 10 [...] + + + | AST CMNT | Sl Hemo | | [facility] | [...] + + | Sample hemolyzed. Results for LD, K, and AST may be inaccurate. | [facility] | | Refer to comment under test. GFR is estimated using the MDRD | LABORATORY | | equation recommended by the National Kidney Disease Education Program. | SERVICES, CORE | | Estimated GFR Interpretive Information: <60 mL/min/1.73 sq m | | | Chronic Kidney Disease <15 mL/min/1.73 sq m | | | Kidney Failure Estimated GFR greater than 60 mL/min/1.73 | | | sq m is of limited clinical value. The MDRD equation is not valid in | | | the following situations: - Patients under 18 years of age - Severe | | | malnutrition or obesity - Vegetarian diet - Rapidly changing kidney | | | function - Amputees, paraplegics, or other muscle-wasting diseases | | + + + + + + + + | Performing | Address | City/State/Zipcode | Phone Number | | Organization | | | | + + + + + | [facility] | [address] | [place] [address] | | | DELMIS OJEDA | [address] | | | + + + + + SIROLIMUS QUANTITATION, WHOLE BLOOD (04/29/2019 4:14 AM PDT) + +-------+ + + + | Component | Value | Ref Range | Performed | Pathologist | | | | | At | Signature | + +-------+ + + + | SIROLIMUS, | 9.1 | 4.0 - 12.0 | [facility] | [...] | Test performed by immunoassay using [employer] i2000. Kidney | [facility] | | transplant (in combination with Cyclosporine): 4-12 ng/mL Toxic | LABORATORY | | value: > 25 ng/mL Interpretive Data: A range of 12-20 ng/mL has been | SERVICES, | | suggested for liver transplant. Samples for analysis of Sirolimus | SPECIAL IMM + | | should be collected 30 minutes to 1 hour prior to the next dose so | COAG | | that the measured concentration of drug represents trough levels. The | | | optimal therapeutic range for a given patient may differ from this | | | suggested range based on the indication for therapy, treatment phase | | | (initiation or maintenance), use in combination with other drugs, time | | | of specimen collection relative to prior dose and/or type of | | | transplanted organ. | | + + + + + + + + | Performing | Address | City/State/Zipcode | Phone Number | | Organization | | | | + + + + + | [facility] | [address] | [place] [address] | | | SERVICES, SPECIAL | [address] | | | | IMM + COAG | | | | + + + + + COMPLETE METABOLIC SET (NA,K,CL,CO2,BUN,CREAT,GLUC,CA,AST,ALT,BILI TOTAL,ALK PHOS,ALB,PROT TOTAL) (04/29/2019 4:14 AM PDT) + + + + + + | Component | Value | Ref Range | Performed | Pathologist | | | | | At | Signature | + + + + + + | GLUCOSE, | 101 (H) | 70 - 99 mg/dL | [facility] | | | PLASMA | | | LABORATORY | | | (LAB) | | | SERVICES, | | | | | | CORE | | + + + + + + | BUN, PLASMA | 25 (H) | 6 - 20 mg/dL | [facility] | | | (LAB) | | | LABORATORY | | | | | | SERVICES, | | | | | | CORE | | + + + + + + | CREATININE | 1.36 (H) | 0.70 - 1.30 | [facility] | | | PLASMA | | mg/dL | LABORATORY | | | (LAB) | | | SERVICES, | | | | | | CORE | | + + + + + + | EGFR | >60 | >60 mL/min | [facility] | | | - | | | LABORATORY | | | [facility] | | | SERVICES, | | | [...] + + + + | SODIUM, | 139 | 136 - 145 | [facility] | [...] + + + + | CALCIUM, | 8.7 | 8.6 - 10.2 | [facility] | | | PLASMA | | mg/dL | LABORATORY | | | (LAB) | | | SERVICES, | | | | | | CORE | | + + + + + + | CALCIUM(ALB | 9.7 | 8.6 - 10.2 | [facility] | [...] + + + + | TOTAL | 7.1 | 6.4 - 8.2 g/dL | [facility] | | | PROTEIN, | | | LABORATORY | | | PLASMA | | | SERVICES, | | | (LAB) | | | CORE | | + + + + + + | ALBUMIN, | 2.8 (L) | 3.5 - 4.7 g/dL | [facility] | | | PLASMA | | | LABORATORY | | | (LAB) | | | SERVICES, | | | | | | CORE | | + + + + + + | ALK PHOS | 134 (H) | 56 - 119 U/L | [facility] | | | | | | LABORATORY | | | | | | SERVICES, | | | | | | CORE | | + + + + + + | AST(SGOT) | 38 | <=41 U/L | [facility] | | | | | | LABORATORY | | | | | | SERVICES, | | | | | | CORE | | + + + + + + | ALT (SGPT) | 25 | <=60 U/L | [facility] | | [...] MDRD equation recommended by the National | [facility] | | Kidney Disease Education Program. Estimated GFR Interpretive | LABORATORY | | Information: <60 mL/min/1.73 sq m Chronic Kidney | SERVICES, CORE | | Disease <15 mL/min/1.73 sq m [...] | | | paraplegics, or other muscle-wasting diseases | | + + + + + + + + | Performing | Address | City/State/Zipcode | Phone Number | | Organization | | | | + + + + + | [facility] | [address] | [place] [address] | | | SERVICES, CORE | [address] | | | + + + + + US ABDOMEN COMP W/ DOPPLER (04/28/2019 10:29 AM PDT) + + | Specimen | + + | | + + + + + | Narrative | Performed At | + + + | EXAM: US LIVER DOPPLER WITH COMPLETE ABDOMEN. HISTORY: Liver | [facility] | | transplant liver transplant in 2011. 59-year-old male with | RADIOLOGY VOICE | | HCV/alcoholic cirrhosis. COMPARISON: Ultrasound 11/17/2017 | RECOGNITION 2 | | TECHNIQUE: Real-time grayscale and Doppler abdominal ultrasound | | | performed. Doppler with spectral analysis and color flow was | | | performed of the hepatic vasculature. FINDINGS: Liver: The | | | echotexture is homogeneous. No focal lesion. Biliary: The | | | gallbladder is normal. Sonographic Carter sign is negative. No biliary | | | dilatation. The common duct measures 7 mm in diameter. Hepatic | | | Vasculature: Main Portal Vein: Patent Diameter: 10 mm. Flow | | | direction: Antegrade. PSV: 27 cm/sec. Left Portal Vein: Patent | | | Flow direction: Antegrade. PSV: 24 cm/sec. Right Portal Vein: | | | Patent Flow direction: Antegrade. PSV: 16 cm/sec. Splenic Vein: | | | Antegrade. Hepatic Veins: Right Hepatic Vein: Patent with | | | antegrade flow. Middle Hepatic Vein: Patent with antegrade flow. | | | Left Hepatic Vein: Patent with antegrade flow. IVC: Patent. | | | Hepatic Artery: Normal arterial waveforms are observed in the common, | | | right and left hepatic arteries. Common hepatic artery: PSV: 85 | | | cm/sec. SAT: 38 ms. RI: 0.8 Right hepatic artery: PSV: 49 | | | cm/sec. SAT: 38 ms. RI: 0.7 Left hepatic artery: PSV: 40 | | | cm/sec. SAT: 29 ms. RI: 0.7 Pancreas: Overlying bowel gas | | | partially obscures the pancreas. The visualized head and body are | | | unremarkable. Kidneys: The right kidney measures cm in length. | | | The left measures cm in length. A left renal simple cyst is present. | | | No hydronephrosis. No stone or mass. Spleen: The spleen is | | | normal and measures cm in length. Other: The visualized aorta and | | | IVC are normal. No free fluid. IMPRESSION: Normal liver | | | Doppler examination. Patent hepatic vasculature. I have | | | personally reviewed the images and, if necessary, edited the report. I | | | agree with the report as now presented. Final signature: Sury | | | MD Mahad 04/28/2019 1:57 PM Preliminary: Nella Styles MD | | | Dictation initiated: Nella Styles MD 04/28/2019 1:30 PM | | + + + + + | Procedure Note | + + | Service Account, Radiant Res In Interface - 04/28/2019 1:58 PM PDT EXAM: US LIVER | | DOPPLER WITH COMPLETE ABDOMEN. HISTORY: Liver transplant liver transplant in 2011. | | 59-year-old male with HCV/alcoholic cirrhosis. COMPARISON: Ultrasound 11/17/2017 | | TECHNIQUE: Real-time grayscale and Doppler abdominal ultrasound performed. Doppler with | | spectral analysis and color flow was performed of the hepatic vasculature. FINDINGS: | | Liver: The echotexture is homogeneous. No focal lesion. Biliary: The gallbladder is | | normal. Sonographic Carter sign is negative. No biliary dilatation. The common duct | | measures 7 mm in diameter. Hepatic Vasculature:Main Portal Vein: PatentDiameter: 10 | | mm.Flow direction: Antegrade.PSV: 27 cm/sec. Left Portal Vein: PatentFlow direction: | | Antegrade.PSV: 24 cm/sec. Right Portal Vein: PatentFlow direction: Antegrade.PSV: 16 | | cm/sec. Splenic Vein: Antegrade. Hepatic Veins:Right Hepatic Vein: Patent with antegrade | | flow.Middle Hepatic Vein: Patent with antegrade flow.Left Hepatic Vein: Patent with | | antegrade flow. IVC: Patent. Hepatic Artery: Normal arterial waveforms are observed in | | the common, right and left hepatic arteries.Common hepatic artery: PSV: 85 cm/sec. SAT: | | 38 ms. RI: 0.8 Right hepatic artery: PSV: 49 cm/sec. SAT: 38 ms. RI: 0.7 Left | | hepatic artery: PSV: 40 cm/sec. SAT: 29 ms. RI: 0.7 Pancreas: Overlying bowel gas | | partially obscures the pancreas. The visualized head and body are unremarkable. | | Kidneys: The right kidney measures cm in length. The left measures cm in length. A left | | renal simple cyst is present. No hydronephrosis. No stone or mass. Spleen: The spleen | | is normal and measures cm in length. Other: The visualized aorta and IVC are normal. No | | free fluid. IMPRESSION: Normal liver Doppler examination. Patent hepatic vasculature. | | I have personally reviewed the images and, if necessary, edited the report. I agree | | with the report as now presented. Final signature: Sury Tobin MD 04/28/2019 1:57 PM | | Preliminary: Nella Styles MD Dictation initiated: Nella Styles MD 04/28/2019 1:30 | | PM | |PSV: 16 cm/sec. | | | |Splenic Vein: Antegrade. | | | |Hepatic Veins: | |Right Hepatic Vein: Patent with antegrade flow. | |Middle Hepatic Vein: Patent with antegrade flow. | |Left Hepatic Vein: Patent with antegrade flow. | | | |IVC: Patent. | | | |Hepatic Artery: Normal arterial waveforms are observed in the common, right and left hepati c arteries. | |Common hepatic artery: PSV: 85 cm/sec. SAT: 38 ms. RI: 0.8 | |Right hepatic artery: PSV: 49 cm/sec. SAT: 38 ms. RI: 0.7 | |Left hepatic artery: PSV: 40 cm/sec. SAT: 29 ms. RI: 0.7 | | | | | |Pancreas: Overlying bowel gas partially obscures the pancreas. The visualized head and bod y are unremarkable. | | | |Kidneys: The right kidney measures cm in length. The left measures cm in length. A left re nal simple cyst is present. No hydronephrosis. No stone or mass. | | | |Spleen: The spleen is normal and measures cm in length. | | | |Other: The visualized aorta and IVC are normal. No free fluid. | | | |IMPRESSION: | | | |Normal liver Doppler examination. Patent hepatic vasculature. | | | |I have personally reviewed the images and, if necessary, edited the report. I agree with th e report as now presented. | | | |Final signature: Sury Tobin MD 04/28/2019 1:57 PM | |Preliminary: Nella Styles MD | |Dictation initiated: Nella Styles MD 04/28/2019 1:30 PM | + + + +---------+ + + | Performing | Address | City/State/Zipcode | Phone Number | | Organization | | | | + +---------+ + + | [facility] | | | | | VOICE RECOGNITION 2 | | | | + +---------+ + + SIROLIMUS QUANTITATION, WHOLE BLOOD (04/28/2019 5:09 AM PDT) + + + + + + | Component | Value | Ref Range | Performed | Pathologist | | | | | At | Signature | + + + + + + | SIROLIMUS, | 13.7 (H) | 4.0 - 12.0 | [facility] | [...] | Test performed by immunoassay using [employer] i2000. Kidney | [facility] | | transplant (in combination with Cyclosporine): 4-12 ng/mL Toxic | LABORATORY | | value: > 25 ng/mL Interpretive Data: A range of 12-20 ng/mL has been | SERVICES, | | suggested for liver transplant. Samples for analysis of Sirolimus | SPECIAL IMM + | | should be collected 30 minutes to 1 hour prior to the next dose so | COAG | | that the measured concentration of drug represents trough levels. The | | | optimal therapeutic range for a given patient may differ from this | | | suggested range based on the indication for therapy, treatment phase | | | (initiation or maintenance), use in combination with other drugs, time | | | of specimen collection relative to prior dose and/or type of | | | transplanted organ. | | + + + + + + + + | Performing | Address | City/State/Zipcode | Phone Number | | Organization | | | | + + + + + | [facility] | [address] | [place] [address] | | | SERVICES, SPECIAL | [address] | | | | IMM + COAG | | | | + + + + + INR (04/28/2019 5:09 AM PDT) + +-------+ + + + | Component | Value | Ref Range | Performed | Pathologist | | | | | At | Signature | + +-------+ + + + | INR | 1.13 | 0.90 - 1.20 INR | [facility] [...] Therapeutic ranges for full anticoagulation: INR for Venous | [facility] | | Thromboembolism (2.0 - 3.0) INR INR for most | LABORATORY | | patients with mech. valves (2.5 - 3.5) INR | SERVICES, CORE | + + + + + + + + | Performing | Address | City/State/Zipcode | Phone Number | | Organization | | | | + + + + + | [facility] | [address] | [place] [address] | | | SERVICES, CORE | [address] | | | + + + + + COMPLETE METABOLIC SET (NA,K,CL,CO2,BUN,CREAT,GLUC,CA,AST,ALT,BILI TOTAL,ALK PHOS,ALB,PROT TOTAL) (04/28/2019 5:09 AM PDT) + + + + + [...] + + + + | CREATININE | 1.40 (H) | 0.70 - 1.30 | [facility] | | | PLASMA | | mg/dL | LABORATORY | | | (LAB) | | | SERVICES, | | | | | | CORE | | + + + + + + | EGFR | >60 | >60 mL/min | [facility] | | | - | | | LABORATORY | | | [facility] | | | SERVICES, | | | [...] + + + + | POTASSIUM, | 4.2 | 3.4 - 5.0 | [facility] | | | PLASMA | | mmol/L | LABORATORY | | | (LAB) | | | SERVICES, | | | | | | CORE | | + + + + + + | CHLORIDE, | 102 [...] + + + + | CALCIUM, | 9.2 | 8.6 - 10.2 | [facility] | | | PLASMA | | mg/dL | LABORATORY | | | (LAB) | | | SERVICES, | | | | | | CORE | | + + + + + + | CALCIUM(ALB | 9.9 [...] + + + + | TOTAL | 7.7 | 6.4 - 8.2 g/dL | [facility] | | | PROTEIN, | | | LABORATORY | | | PLASMA | | | SERVICES, | | | (LAB) | | | CORE | | + + + + + + | ALBUMIN, | 3.1 (L) | 3.5 - 4.7 g/dL | [facility] | | | PLASMA | | | LABORATORY | | | (LAB) | | | SERVICES, | | | | | | CORE | | + + + + + + | ALK PHOS | 154 (H) | 56 - 119 U/L | [facility] | | | | | | LABORATORY | | | | | | SERVICES, | | | | | | CORE | | + + + + + + | AST(SGOT) | 58 (H) | <=41 U/L | [facility] | | | | | | LABORATORY | | | | | | SERVICES, | | | | | | CORE | | + + + + + + | ALT (SGPT) | 36 | <=60 U/L | [facility] | | [...] + + + + | ANION | 7 [...] + + + | AST CMNT | Sl Hemo | | [facility] | [...] + + | Sample hemolyzed. Results for LD, K, and AST may be inaccurate. | [facility] | | Refer to comment under test. GFR is estimated using the MDRD | LABORATORY | | equation recommended by the National Kidney Disease Education Program. | SERVICES, CORE | | Estimated GFR Interpretive Information: <60 mL/min/1.73 sq m | | | Chronic Kidney Disease <15 mL/min/1.73 sq m | | | Kidney Failure Estimated GFR greater than 60 mL/min/1.73 | | | sq m is of limited clinical value. The MDRD equation is not valid in | | | the following situations: - Patients under 18 years of age - Severe | | | malnutrition or obesity - Vegetarian diet - Rapidly changing kidney | | | function - Amputees, paraplegics, or other muscle-wasting diseases | | + + + + + + + + | Performing | Address | City/State/Zipcode | Phone Number | | Organization | | | | + + + + + | [facility] | [address] | [place] [address] | | | SERVICES, CORE | [address] | | | + + + + + ETHYL GLUCURONIDE QUANT, URINE (04/27/2019 4:26 PM PDT) + + + + + + | Component | Value | Ref Range | Performed | Pathologist | | | | | At | Signature | + + + + + + | ETHYL | <100 | ng/mL | [facility] | | | GLUCURONIDE | | | REG UNIV | | | , URINE, | | | PTH - INTFC | | | CONFIRM | | | | | + + + + + + | ETHYL | <100Comment: | ng/mL | [facility] | | | SULFATE, | INTERPRETIVE | | REG UNIV | | | URINE | INFORMATION: Ethyl | | PTH - INTFC | | | CONFIRMATIO | Glucuronide and Ethyl | | | | | N | Sulfate, | | | | | | | | | | | | Urine Quantitative | | | | | | Ethyl glucuronide (EtG) | | | | | | and Ethyl Sulfate (EtS) | | | | | | are direct metabolites | | | | | | of ethanol. EtG and EtS | | | | | | can be detected up to 80 | | | | | | hours in urine after | | | | | | ethanol ingestion and | | | | | | the presence of both | | | | | | metabolites can be used | | | | | | as markers for recent | | | | | | alcohol use. The | | | | | | presence of EtG, alone | | | | | | in urine, is not a | | | | | | unique marker of ethanol | | | | | | ingestion. False | | | | | | positive EtG results can | | | | | | occur from microbial | | | | | | formation or from | | | | | | fermentation and false | | | | | | negative EtG results can | | | | | | occur from bacterial | | | | | | degradation. The | | | | | | analytical measurement | | | | | | range is 100-10,000 | | | | | | ng/mL. Test developed | | | | | | and characteristics | | | | | | determined by [facility] | | | | | | [facility]. See | | | | | | Compliance Statement B: | | | | | | [employer]SP[employer]formed | | | | | | by [employer],[address] | | | | | | [address] [facility],[place] | | | | | | [id number] | | | | | | [phone].[employer]. | | | | | | com, Juvenal Weston MD, | | | | | | [...] [facility] | [address] | [place], [place] | | | UNIV PTH - INTFC | | [address] | | + + + + + HEPATITIS B SURFACE AB QUAL, SERUM (04/27/2019 4:12 PM PDT) + + + + + [...] | + + + + + | [facility] | [address] | [place] [address] | | | SERVICES, CORE | [address] | | | + + + + + HEPATITIS B CORE AB, SERUM (04/27/2019 4:12 PM PDT) + + + + + [...] + + | [facility] | [address] | [place] [address] | | | SERVICES, CORE | [address] | | | + + + + + HEPATITIS B SURFACE AG W/REFLEX CONFIRMATION IF INDETERMINATE RESULTS (04/27/2019 4:12 PM PDT) + + + + + [...] | + + + + + | [facility] | [address] | [place] [address] | | | SERVICES, CORE | [address] | | | + + + + + PHOSPHATIDYLETHANOL (PETH) (04/27/2019 4:12 PM PDT) + + + + + + | Component | Value | Ref Range | Performed | Pathologist | | | | | At | Signature | + + + + + + | PHOSPHATIDY | NEGATIVEComment: | NEGATIVE ng/mL | [facility] | | | LETHANOL | Analyzed compound: PEth | | REG UNIV | | | (PETH) | 16:0/18:1.5-xvbiptqjc-2- | | PTH - INTFC | | | | [id number]-phos | | | | | | phoethanol.Analysis | | | | | | performed by Liquid | | | | | | Chromatography | | | | | | withTandem Mass | | | | | | Spectrometry | | | | | | (LC/MS/MS).Detection | | | | | | limit: 20 ng/mLPEth | | | | | | levels in excess of 20 | | | | | | ng/mL are considered | | | | | | evidenceof moderate to | | | | | | heavy ethanol | | | | | | consumption. | | | | | | However,the Center for | | | | | | Substance Abuse | | | | | | Treatment (CSAT) | | | | | | advisescaution in | | | | | | interpretation and use | | | | | | of biomarkers aloneto | | | | | | assess alcohol use. | | | | | | Results should be | | | | | | interpretedin the | | | | | | context of all available | | | | | | clinical and | | | | | | behavioralinformation.Re | | | | | | ference: Substance | | | | | | Abuse and Mental Health | | | | | | ServicesAdministration | | | | | | (2011). "The Role of | | | | | | Biomarkers in | | | | | | theTreatment of Alcohol | | | | | | Use Disorders", 2011 | | | | | | Revision.Advisory, | | | | | | Volume 11, Issue 2.This | | | | | | test was developed and | | | | | | its performance | | | | | | characteristicsdetermine | | | | | | d by [facility]. It has not | | | | | | been cleared or | | | | | | approvedby the Food and | | | | | | Drug | | | | | | Administration.Performed | | | | | | at: [facility] [address] | | | | | | [address] [place] | | | | | | [place] [address] | | | | + + + + + + + + | Specimen | + + | Blood - Blood | | (substance) | + + + + + + + | Performing | Address | City/State/Zipcode | Phone Number | | Organization | | | | + + + + + | [facility] | [address] | [place], [place] | | | UNIV PTH - INTFC | | [address] | | + + + + + CT NECK SOFT TISSUE W CONTRAST (04/27/2019 3:07 PM PDT) + + | Specimen | + + | | + + + + + | Narrative | Performed At | + + + | EXAM: CT NECK SOFT TISSUE W CONTRAST HISTORY: parotitis | [facility] | | COMPARISON: CT neck 09/08/[address] neck 04/20/2019 | RADIOLOGY VOICE | | TECHNIQUE: Axial CT images of the neck with iodine based intravenous | RECOGNITION 2 | | contrast, with sagittal and coronal reformations. FINDINGS: | | | PHARYNX/LARYNX: Unremarkable. SALIVARY GLANDS: Hyperintense | | | heterogeneity within the left parotid gland similar in appearance | | | outside scan dated 04/20/2019, with multiple calcifications along the | | | tract of the salivary duct, and distal duct dilatation. 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 LYMPH | | | NODES: Multiple surgical clips consistent with prior lymph node | | | dissection. OTHER NECK SOFT TISSUES: Unremarkable. SKULL/SKULL | | | BASE: Redemonstration of right total auriculectomy and temporal bone | | | resection PARANASAL SINUSES: Mucous retention cysts within the left | | | maxillary sinus POSTERIOR FOSSA: Visualized portions are | | | unremarkable. SPINE: Visualized portions are unremarkable. LUNG | | | APICES: Biapical cyst similar in appearance prior IMPRESSION: | | | Left parotitis with obstructing stones and ductal dilatation. I | | | have personally reviewed the images and, if necessary, edited the | | | report. I agree with the report as now presented. Final | | | signature: Fredo Maurer MD 04/27/2019 5:57 PM Preliminary: Jazmyn | | | MD Luis 04/27/2019 4:10 PM Dictation initiated: Jazmyn | | | MD Luis 04/27/2019 3:33 PM | | + + + + + | Procedure Note | + + | Service Account, Radiant Res In Interface - 04/27/2019 5:59 PM PDT EXAM: CT NECK | | SOFT TISSUE W CONTRAST HISTORY: parotitis COMPARISON: CT neck 09/08/[address] | | neck 04/20/2019 TECHNIQUE: Axial CT images of the neck with iodine based intravenous | | contrast, with sagittal and coronal reformations. FINDINGS: PHARYNX/LARYNX: | | Unremarkable.SALIVARY GLANDS: Hyperintense heterogeneity within the left parotid gland | | similar in appearance outside scan dated 04/20/2019, with multiple calcifications along | | the tract of the salivary duct, and distal duct dilatation. 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 SKULL/SKULL BASE: | | Redemonstration of right total auriculectomy and temporal bone resection PARANASAL | | SINUSES: Mucous retention cysts within the left maxillary sinusPOSTERIOR FOSSA: | | Visualized portions are unremarkable. SPINE: Visualized portions are unremarkable.LUNG | | APICES: Biapical cyst similar in appearance prior IMPRESSION: Left parotitis with | | obstructing stones and ductal dilatation. I have personally reviewed the images and, if | | necessary, edited the report. I agree with the report as now presented. Final | | signature: Fredo Maurer MD 04/27/2019 5:57 PM Preliminary: Jazmyn Smith MD | | 04/27/2019 4:10 PM Dictation initiated: Jazmyn Smith MD 04/27/2019 3:33 PM | |PARANASAL SINUSES: Mucous retention cysts within the left maxillary sinus | |POSTERIOR FOSSA: Visualized portions are unremarkable. | | | |SPINE: Visualized portions are unremarkable. | |LUNG APICES: Biapical cyst similar in appearance prior | | | |IMPRESSION: | | | |Left parotitis with obstructing stones and ductal dilatation. | | | |I have personally reviewed the images and, if necessary, edited the report. I agree with th e report as now presented. | | | |Final signature: Fredo Maurer MD 04/27/2019 5:57 PM | |Preliminary: Jazmyn Smith MD 04/27/2019 4:10 PM | |Dictation initiated: Jazmyn Smith MD 04/27/2019 3:33 PM | + + + +---------+ + + | Performing | Address | City/State/Zipcode | Phone Number | | Organization | | | | + +---------+ + + | [facility] | | | | | VOICE RECOGNITION 2 | | | | + +---------+ + + CBC (HEMOGRAM) ONLY (04/27/2019 6:54 AM PDT) + +---------+ + + + | Component | Value | Ref Range | Performed | Pathologist | | | | | At | Signature | + +---------+ + + + | WHITE CELL | 6.88 | 3.50 - 10.80 | [facility] | | | COUNT | | K/cu mm | LABORATORY | | | | | | SERVICES, | | | | | | CORE | | + +---------+ + + + | RED CELL | 4.79 | 4.50 - 6.00 | [facility] | | | COUNT | | M/cu mm | LABORATORY | | | | | | SERVICES, | | | | | | CORE | | + +---------+ + + + | HEMOGLOBIN | 13.7 | 13.5 - 17.5 | [facility] | | | | | g/dL | LABORATORY | | | | | | SERVICES, | | | | | | CORE | | + +---------+ + + + | HEMATOCRIT | 42.1 | 41.0 - 53.0 % | [facility] | | | | | | LABORATORY | | | | | | SERVICES, | | | | | | CORE | | + +---------+ + + + | MCV | 87.9 | 80.0 - 100.0 fL | [facility] | | | | | | LABORATORY | | | | | | SERVICES, | | | | | | CORE | | + +---------+ + + + | MCHC | 32.5 | 32.0 - 36.0 | [facility] | | | | | g/dL | LABORATORY | | | | | | SERVICES, | | | | | | CORE | | + +---------+ + + + | RDW SD | 43.1 | 35.1 - 46.3 fL | [facility] | | | | | | LABORATORY | | | | | | SERVICES, | | | | | | CORE | | + +---------+ + + + | PLATELET | 216 | 150 - 400 K/cu | [facility] | | | COUNT | | mm | LABORATORY | | | | | | SERVICES, | | | | | | CORE | | + +---------+ + + + | MPV | 8.9 [...] [facility] LABORATORY | [address] | [place] [address] | | | SERVICES, CORE | [address] | | | + + + + + COMPLETE METABOLIC SET (NA,K,CL,CO2,BUN,CREAT,GLUC,CA,AST,ALT,BILI TOTAL,ALK PHOS,ALB,PROT TOTAL) (04/27/2019 6:54 AM PDT) + + + + + + | Component | Value | Ref Range | Performed | Pathologist | | | | | At | Signature | + + + + + + | GLUCOSE, | 97 | 70 - 99 mg/dL | [facility] | | | PLASMA | | | LABORATORY | | | (LAB) | | | SERVICES, | | | | | | CORE | | + + + + + + | BUN, PLASMA | 26 (H) | 6 - 20 mg/dL | [facility] | | | (LAB) | | | LABORATORY | | | | | | SERVICES, | | | | | | CORE | | + + + + + + | CREATININE | 1.63 (H) | 0.70 - 1.30 | [facility] | | | PLASMA | | mg/dL | LABORATORY | | | (LAB) | | | SERVICES, | | | | | | CORE | | + + + + + + | EGFR | 52 (L) | >60 mL/min | [facility] | | | - | | | LABORATORY | | | [facility] | | | SERVICES, | | | | | | CORE | | + + + + + + | EGFR NON | 43 (L) | >60 mL/min | [facility] | [...] + + + + | POTASSIUM, | 4.4 | 3.4 - 5.0 | [facility] | | | PLASMA | | mmol/L | LABORATORY | | | (LAB) | | | SERVICES, | | | | | | CORE | | + + + + + + | CHLORIDE, | 101 | 97 - 108 mmol/L | [facility] | | | PLASMA | | | LABORATORY | | | (LAB) | | | SERVICES, | | | | | | CORE | | + + + + + + | TOTAL CO2, | 32 | 21 - 32 mmol/L | [facility] | | | PLASMA | | | LABORATORY | | | (LAB) | | | SERVICES, | | | | | | CORE | | + + + + + + | CALCIUM, | 9.0 | 8.6 - 10.2 | [facility] | | | PLASMA | | mg/dL | LABORATORY | | | (LAB) | | | SERVICES, | | | | | | CORE | | + + + + + + | CALCIUM(ALB | 9.6 | 8.6 - 10.2 | [facility] | [...] + + + + | TOTAL | 7.4 | 6.4 - 8.2 g/dL | [facility] | | | PROTEIN, | | | LABORATORY | | | PLASMA | | | SERVICES, | | | (LAB) | | | CORE | | + + + + + + | ALBUMIN, | 3.3 (L) | 3.5 - 4.7 g/dL | [facility] | | | PLASMA | | | LABORATORY | | | (LAB) | | | SERVICES, | | | | | | CORE | | + + + + + + | ALK PHOS | 164 (H) | 56 - 119 U/L | [facility] | | | | | | LABORATORY | | | | | | SERVICES, | | | | | | CORE | | + + + + + + | AST(SGOT) | 101 (H) | <=41 U/L | [facility] | | | | | | LABORATORY | | | | | | SERVICES, | | | | | | CORE | | + + + + + + | ALT (SGPT) | 76 (H) | <=60 U/L | [facility] | | | | | | LABORATORY | | | | | | SERVICES, | | | | | | CORE | | + + + + + + | ANION GAP | 4 | 4 - 11 mmol/L | [facility] | | | | | | LABORATORY | | | | | | SERVICES, | | | | | | CORE | | + + + + + + | ANION | 5 | 4 - 11 mmol/L [...] MDRD equation recommended by the National | [facility] | | Kidney Disease Education Program. Estimated GFR Interpretive | LABORATORY | | Information: <60 mL/min/1.73 sq m Chronic Kidney | SERVICES, CORE | | Disease <15 mL/min/1.73 sq m [...] | | | paraplegics, or other muscle-wasting diseases | | + + + + + + + + | Performing | Address | City/State/Zipcode | Phone Number | | Organization | | | | + + + + + | [facility] | [address] | [place] [address] | | | SERVICES, CORE | [address] | | | + + + + + SIROLIMUS QUANTITATION, WHOLE BLOOD (04/27/2019 6:54 AM PDT) + + + + + + | Component | Value | Ref Range | Performed | Pathologist | | | | | At | Signature | + + + + + + | SIROLIMUS, | 13.6 (H) | 4.0 - 12.0 | [facility] | [...] | Test performed by immunoassay using [employer] i2000. Kidney | [facility] | | transplant (in combination with Cyclosporine): 4-12 ng/mL Toxic | LABORATORY | | value: > 25 ng/mL Interpretive Data: A range of 12-20 ng/mL has been | SERVICES, | | suggested for liver transplant. Samples for analysis of Sirolimus | [facility] + | | should be collected 30 minutes to 1 hour prior to the next dose so | [facility] | | that the measured concentration of drug represents trough levels. The | | | optimal therapeutic range for a given patient may differ from this | | | suggested range based on the indication for therapy, treatment phase | | | (initiation or maintenance), use in combination with other drugs, time | | | of specimen collection relative to prior dose and/or type of | | | transplanted organ. | | + + + + + + + + | Performing | Address | City/State/Zipcode | Phone Number | | Organization | | | | + + + + + | [facility] | [address] | [place] [address] | | | SERVICES, SPECIAL | [address] | | | | IMM + [place] | | | | + + + + + CHLORIDE, URINE (04/26/2019 7:39 PM PDT) + +--------+ + + + | Component | Value | Ref Range | Performed | Pathologist | | | | | At | Signature | + +--------+ + + + | CHLORIDE | 49 | mmol/L | [facility] | | | [...] [facility] | [address] | [place] [address] | | | DELMIS OJEDA | [address] | | | + + + + + SODIUM TOTAL, URINE (04/26/2019 7:39 PM PDT) + +--------+ + + + | Component | Value | Ref Range | Performed | Pathologist | | | | | At | Signature | + +--------+ + + + | SODIUM CONC | 45 | mmol/L | [facility] | | | [...] [facility] | [address] | [place] [address] | | | SERVICES, CORE | [address] | | | + + + + + PROTEIN, URINE (04/26/2019 7:39 PM PDT) + + + + + + | Component | Value | Ref Range | Performed | Pathologist | | | | | At | Signature | + + + + + + | PROTEIN | 31 | mg/dL | [facility] | | | CONC URINE | | | LABORATORY | | | | | | SERVICES, | | | | | | CORE | | + + + + + + | PROTEIN/CRE | 0.63 (H) | <0.10 mg/mg | [facility] | [...] 50-80 mg/24hr At Rest <150 mg/24hr | [facility] | | Ambulatory, normal level of physical activity <250 mg/24hr | LABORATORY | | Strenuous physical activity Normal values based on 24 hour collection | LYNETTE, CORE | | interval. Patient results are calculated from actual collection | | | interval and volume. | | + + + + + + + + | Performing | Address | City/State/Zipcode | Phone Number | | Organization | | | | + + + + + | [facility] | [address] | [place] [address] | | | LYNETTE, CORE | [address] | | | + + + + + CREATININE, URINE (04/26/2019 7:39 PM PDT) + +--------+ + + + | Component | Value | Ref Range | Performed | Pathologist | | | | | At | Signature | + +--------+ + + + | CREATININE | 49.50 | mg/dL | [facility] | | | [...] | + + + + + | [facility] | [address] | [place] [address] | | | SERVICES, CORE | [address] | | | + + + + + BASIC METABOLIC SET (NA, K, CL, TCO2, BUN, CR, GLU, CA) (04/26/2019 12:18 PM PDT) + + + + + + | Component | Value | Ref Range | Performed | Pathologist | | | | | At | Signature | + + + + + + | GLUCOSE, | 98 | 70 - 99 mg/dL | [facility] | | | PLASMA | | | LABORATORY | | | (LAB) | | | SERVICES, | | | | | | CORE | | + + + + + + | BUN, PLASMA | 26 (H) | 6 - 20 mg/dL | [facility] | | | (LAB) | | | LABORATORY | | | | | | SERVICES, | | | | | | CORE | | + + + + + + | CREATININE | 1.64 (H) | 0.70 - 1.30 | [facility] | | | PLASMA | | mg/dL | LABORATORY | | | (LAB) | | | SERVICES, | | | | | | CORE | | + + + + + + | EGFR | 52 (L) | >60 mL/min | [facility] | | | - | | | LABORATORY | | | [facility] | | | SERVICES, | | | | | | CORE | | + + + + + + | EGFR NON | 43 (L) | >60 mL/min | [facility] | [...] + + | POTASSIUM, | 4.1 | 3.4 - 5.0 | [facility] | [...] + + + + | CALCIUM, | 9.2 | 8.6 - 10.2 | [facility] | [...] MDRD equation recommended by the National | [facility] | | Kidney Disease Education Program. Estimated GFR Interpretive | LABORATORY | | Information: <60 mL/min/1.73 sq m Chronic Kidney | SERVICES, CORE | | Disease <15 mL/min/1.73 sq m [...] | | | paraplegics, or other muscle-wasting diseases | | + + + + + + + + | Performing | Address | City/State/Zipcode | Phone Number | | Organization | | | | + + + + + | [facility] | [address] | [place] [address] | | | LYNETTE, DELMIS | [address] | | | + + + + + CBC AND AUTO DIFF (04/25/2019 3:02 PM PDT) + + + + + + | Component | Value | Ref Range | Performed | Pathologist | | | | | At | Signature | + + + + + + | WHITE CELL | 5.72 | 3.50 - 10.80 | [facility] | | | COUNT | | K/cu mm | LABORATORY | | | | | | SERVICES, | | | | | | CORE | | + + + + + + | RED CELL | 4.59 | 4.50 - 6.00 | [facility] | [...] + + + + | HEMATOCRIT | 39.6 (L) | 41.0 - 53.0 % | [facility] | | | | | | LABORATORY | | | | | | SERVICES, | | | | | | CORE | | + + + + + + | MCV | 86.3 | 80.0 - 100.0 fL | [facility] | | | | | | LABORATORY | | | | | | SERVICES, | | | | | | CORE | | + + + + + + | MCHC | 33.8 | 32.0 - 36.0 | [facility] | | | | | g/dL | LABORATORY | | | | | | SERVICES, | | | | | | CORE | | + + + + + + | RDW SD | 42.0 | 35.1 - 46.3 fL | [facility] | | | | | | LABORATORY | | | | | | SERVICES, | | | | | | CORE | | + + + + + + | PLATELET | 215 | 150 - 400 K/cu | [facility] | | | COUNT | | mm | LABORATORY | | | | | | SERVICES, | | | | | | CORE | | + + + + + + | MPV | 9.0 (L) | 9.7 - 12.3 fL | [...] + + + + | NEUTROPHIL | 61.6 | 50.0 - 70.0 % | [facility] | | | % | | | LABORATORY | | | | | | SERVICES, | | | | | | CORE | | + + + + + + | LYMPHOCYTE | 23.3 | 18.0 - 42.0 % | [facility] | | | % | | | LABORATORY | | | | | | SERVICES, | | | | | | CORE | | + + + + + + | MONOCYTE % | 12.1 (H) | 3.5 - 9.0 % | [facility] | | | | | | LABORATORY | | | | | | SERVICES, | | | | | | CORE | | + + + + + + | EOS % | 2.1 | 1.0 - 3.0 % | [facility] | | | | | | LABORATORY | | | | | | SERVICES, | | | | | | CORE | | + + + + + + | BASO % | 0.7 | 0.0 - 2.0 % | [facility] | | | | | | LABORATORY | | | | | | SERVICES, | | | | | | CORE | | + + + + + + | IG% | 0.2Comment: Increased | 0.0 - 1.0 % | [...] + + + + | NEUTROPHIL | 3.53 | 1.80 - 7.70 | [facility] | | | # | | K/cu mm | LABORATORY | | | | | | SERVICES, | | | | | | CORE | | + + + + + + | LYMPHOCYTE | 1.33 | 1.00 - 4.80 | [facility] | | | # | | K/cu mm | LABORATORY | | | | | | SERVICES, | | | | | | CORE | | + + + + + + | MONOCYTE # | 0.69 | 0.10 - 0.90 | [facility] | | | | | K/cu mm | LABORATORY | | | | | | SERVICES, | | | | | | CORE | | + + + + + + | EOS # | 0.12 | 0.00 - 0.50 | [facility] | | | | | K/cu mm | LABORATORY | | | | | | SERVICES, | | | | | | CORE | | + + + + + + | BASO # | 0.04 | 0.00 - 0.10 | [facility] | | | | | K/cu mm | LABORATORY | | | | | | SERVICES, | | | | | | CORE | | + + + + + + | IG# | 0.01 | 0.00 - 0.10 | [facility] | [...] immature granulocytes (IG) define a left shift. Immature | [facility] | | granulocytes (IG) are an automated count of metamyelocytes, myelocytes | LABORATORY | | and promyelocytes. Bands are not included in the IG count. Bands are | SERVICES, CORE | | included in the neutrophil count. | | + + + + + + + + | Performing | Address | City/State/Zipcode | Phone Number | | Organization | | | | + + + + + | [facility] | [address] | [place] [address] | | | SERVICES, CORE | [address] | | | + + + + + BASIC METABOLIC SET (NA, K, CL, TCO2, BUN, CR, GLU, CA) (04/25/2019 3:02 PM PDT) + + + + + + | Component | Value | Ref Range | Performed | Pathologist | | | | | At | Signature | + + + + + + | GLUCOSE, | 94 | 70 - 99 mg/dL | [facility] | | | PLASMA | | | LABORATORY | | | (LAB) | | | SERVICES, | | | | | | CORE | | + + + + + + | BUN, PLASMA | 26 (H) | 6 - 20 mg/dL | [facility] | | | (LAB) | | | LABORATORY | | | | | | SERVICES, | | | | | | CORE | | + + + + + + | CREATININE | 1.95 (H) | 0.70 - 1.30 | [facility] | | | PLASMA | | mg/dL | LABORATORY | | | (LAB) | | | SERVICES, | | | | | | CORE | | + + + + + + | EGFR | 43 (L) | >60 mL/min | [facility] | | | - | | | LABORATORY | | | [facility] | | | SERVICES, | | | | | | CORE | | + + + + + + | EGFR NON | 35 (L) | >60 mL/min | [facility] | [...] + + + + | POTASSIUM, | 3.6 | 3.4 - 5.0 | [facility] | | | PLASMA | | mmol/L | LABORATORY | | | (LAB) | | | SERVICES, | | | | | | CORE | | + + + + + + | CHLORIDE, | 102 [...] + + + + | CALCIUM, | 9.0 | 8.6 - 10.2 | [facility] | [...] MDRD equation recommended by the National | [facility] | | Kidney Disease Education Program. Estimated GFR Interpretive | LABORATORY | | Information: <60 mL/min/1.73 sq m Chronic Kidney | SERVICESDELMIS | | Disease <15 mL/min/1.73 sq m [...] | | | paraplegics, or other muscle-wasting diseases | | + + + + + + + + | Performing | Address | City/State/Zipcode | Phone Number | | Organization | | | | + + + + + | [facility] | [address] | [place] [address] | | | DELMIS OJEDA | [address] | | | + + + + + documented in this encounter Visit Diagnoses + + | Diagnosis | + + | Acute LEFT Parotitis - Primary Sialoadenitis | + + | Parotitis Sialoadenitis | + + | 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, face, and neck | + + | Recovered, reduced EF Chronic systolic heart failure (HCC) Chronic systolic heart | | failure | + + | Liver transplant recipient (HCC) | + + | Squamous cell carcinoma of skin of ear, unspecified laterality | + + | A-fib (HCC) Atrial fibrillation | + + | Acute renal injury superimposed on stage 4 chronic kidney disease (HCC) | + + | Methamphetamine use disorder, moderate (HCC) (per chart: will review) | + + | Hypertension Unspecified essential hypertension | + + | Parotid sialolithiasis | + + | On mechanically assisted ventilation (HCC) | + + | Severe tongue swelling | + + | Acute post-operative pain | + + | Tongue edema (Angioedema vs post op edema) Edema of larynx | + + | Immunosuppression (HCC) (mycophenylate & sirolimus) Unspecified disorder of immune | | mechanism | + + | 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) Alcoholic cirrhosis of | | liver | + + documented in this encounter Admitting Diagnoses + + | Diagnosis | + + | Parotitis Sialoadenitis | + + documented in this encounter Administered Medications + +--------+ + +------+------+ | Medication Order | MAR | Action | Dose | Rate | Site | | | Action | Date | | | | + +--------+ + +------+------+ | acetaminophen (TYLENOL) tablet | Given | 05/04/20 | 1,000 mg | | | | 1,000 mg 1,000 mg, oral, THREE | | 19 8:55 | | | | | TIMES DAILY, First dose on Mon | | PM PDT | | | | | 04/25/19 at 1630, Until | | | | | | | Discontinued | | | | | | + +--------+ + +------+------+ +-------+ + +---+---+ | Given | 05/03/20 | 1,000 mg | | | | | 19 9:09 | | | | | | PM PDT | | | | +-------+ + +---+---+ | Given | 05/03/20 | 1,000 mg | | | | | 19 3:39 | | | | | | PM PDT | | | | +-------+ + +---+---+ +---+---+ | | | +---+---+ + +-------+ +--------+---+---+ | acetaminophen (TYLENOL) tablet | Given | 05/09/20 | 650 mg | | | | 650 mg 650 mg, oral, THREE TIMES | | 19 12:44 | | | | | DAILY, First dose (after last | | PM PDT | | | | | modification) on Zoya 05/05/19 at | | | | | | | 0500, Until Discontinued | | | | | | + +-------+ +--------+---+---+ +-------+ +--------+---+---+ | Given | 05/09/20 | 650 mg | | | | | 19 4:41 | | | | | | AM PDT | | | | +-------+ +--------+---+---+ | Given | 05/08/20 | 650 mg | | | | | 19 9:42 | | | | | | PM PDT | | | | +-------+ +--------+---+---+ +---+---+ | | | +---+---+ + +-------+ +---------+---+---+ | albuterol (PROVENTIL, VENTOLIN) | Given | 04/26/20 | 2 puffs | | | | 90 mcg/actuation inhaler 1-2 | | 19 9:07 | | | | | puff 1-2 puff, inhalation, EVERY | | AM PDT | | | | | 6 HOURS NEEDED, Starting Mon | | | | | | | 04/25/19 at 1420, Until Mon | | | | | | | 05/09/19 at 2150, dyspnea/SOB | | | | | | + +-------+ +---------+---+---+ +-------+ +---------+---+---+ | Given | 04/25/20 | 2 puffs | | | | | 19 8:19 | | | | | | PM PDT | | | | +-------+ +---------+---+---+ +---+---+ | | | +---+---+ + +-------+ +--------+---+---+ | amLODIPine (NORVASC) tablet 2.5 | Given | 05/09/20 | 2.5 mg | | | | mg 2.5 mg, oral, DAILY, First | | 19 8:13 | | | | | dose on 05/07/19 at 1130, | | AM PDT | | | | | Until Discontinued | | | | | | + +-------+ +--------+---+---+ +-------+ +--------+---+---+ | Given | 05/08/20 | 2.5 mg | | | | | 19 8:41 | | | | | | AM PDT | | | | +-------+ +--------+---+---+ | Given | 05/07/20 | 2.5 mg | | | | | 19 1:27 | | | | | | PM PDT | | | | +-------+ +--------+---+---+ +---+---+ | | | +---+---+ + +-------+ +------+---+---+ | amLODIPine (NORVASC) tablet 5 | Given | 04/28/20 | 5 mg | | | | mg 5 mg, oral, TWICE DAILY, | | 19 8:24 | | | | | First dose on Mon /23/19 at | | AM PDT | | | | | 2100, Until Discontinued | | | | | | + +-------+ +------+---+---+ +-------+ +------+---+---+ | Given | 04/27/20 | 5 mg | | | | | 19 8:31 | | | | | | PM PDT | | | | +-------+ +------+---+---+ | Given | 04/27/20 | 5 mg | | | | | 19 9:19 | | | | | | AM PDT | | | | +-------+ +------+---+---+ +---+---+ | | | +---+---+ + +-------+ +--------+---+---+ | amoxicillin-clavulanate | Given | 05/04/20 | 500 mg | | | | (AUGMENTIN) 500-125 mg 500 mg | | 19 9:02 | | | | | 500 mg, oral, THREE TIMES DAILY, | | AM PDT | | | | | First dose on Zoya 04/28/19 at | | | | | | | 1600, Until Discontinued | | | | | | + +-------+ +--------+---+---+ +-------+ +--------+---+---+ | Given | 05/03/20 | 500 mg | | | | | 19 9:09 | | | | | | PM PDT | | | | +-------+ +--------+---+---+ | Given | 05/03/20 | 500 mg | | | | | 19 3:39 | | | | | | PM PDT | | | | +-------+ +--------+---+---+ +---+---+ | | | +---+---+ + +-------+ +--------+---+---+ | amoxicillin-clavulanate | Given | 05/05/20 | 500 mg | | | | (AUGMENTIN) 500-125 mg 500 mg | | 19 3:52 | | | | | 500 mg, feeding tube, THREE TIMES | | PM PDT | | | | | DAILY, 42 doses, First dose | | | | | | | (after last modification) on Thu | | | | | | | 05/04/19 at 2200, Last dose on Thu | | | | | | | 05/18/19 at 1600 | | | | | | + +-------+ +--------+---+---+ +-------+ +--------+---+---+ | Given | 05/05/20 | 500 mg | | | | | 19 8:22 | | | | | | AM PDT | | | | +-------+ +--------+---+---+ | Given | 05/04/20 | 500 mg | | | | | 19 10:38 | | | | | | PM PDT | | | | +-------+ +--------+---+---+ +---+---+ | | | +---+---+ + +-------+ +--------+---+---+ | amoxicillin-clavulanate | Given | 05/09/20 | 500 mg | | | | (AUGMENTIN) 500-125 mg 500 mg | | 19 2:42 | | | | | 500 mg, oral, THREE TIMES DAILY, | | PM PDT | | | | | 39 doses, First dose (after last | | | | | | | modification) on Zoya 05/05/19 at | | | | | | | 2200, Last dose on Thu05/18/19 | | | | | | | at 1600 | | | | | | + +-------+ +--------+---+---+ +-------+ +--------+---+---+ | Given | 05/09/20 | 500 mg | | | | | 19 8:13 | | | | | | AM PDT | | | | +-------+ +--------+---+---+ | Given | 05/08/20 | 500 mg | | | | | 19 9:42 | | | | | | PM PDT | | | | +-------+ +--------+---+---+ +---+---+ | | | +---+---+ + +-------+ +---+---+---+ | calcipotriene (DOVONEX) 0.005 % | Given | 04/30/20 | | | | | cream topical, TWICE DAILY, 8 | | 19 9:37 | | | | | doses, First dose on Zoya 04/28/19 | | AM PDT | | | | | at 2100, Last dose on Thu05/02/19 | | | | | | | at 0900 | | | | | | + +-------+ +---+---+---+ +-------+ +---+---+---+ | Given | 04/29/20 | | | | | | 19 9:45 | | | | | | PM PDT | | | | +-------+ +---+---+---+ | Given | 04/29/20 | | | | | | 19 8:34 | | | | | | AM PDT | | | | +-------+ +---+---+---+ +---+---+ | | | +---+---+ + +-------+ + +---+---+ | calcium carbonate chewable | Given | 05/07/20 | 200 mg | | | | (TUMS) tablet 200 mg elemental | | 19 10:30 | elementa | | | | 200 mg elemental (500 mg total | | PM PDT | l | | | | salt), oral, EVERY 2 HOURS | | | | | | | NEEDED, Starting [facility] 05/05/19 at | | | | | | | 1956, Until 05/09/19 at 2150, | | | | | | | dyspepsia | | | | | | + +-------+ + +---+---+ +-------+ + +---+---+ | Given | 05/05/20 | 200 mg | | | | | 19 9:41 | elementa | | | | | PM PDT | l | | | +-------+ + +---+---+ +---+---+ | | | +---+---+ + +-------+ + +---+---+ | calcium carbonate chewable | Given | 05/02/20 | 400 mg | | | | (TUMS) tablet 400 mg elemental | | 19 10:38 | elementa | | | | 400 mg elemental (1,000 mg total | | PM PDT | l | | | | salt), oral, EVERY 2 HOURS | | | | | | | NEEDED, Starting Thu04/25/19 at | | | | | | | 1950, Until Thu05/04/19 at 7, | | | | | | | dyspepsia | | | | | | + +-------+ + +---+---+ +-------+ + +---+---+ | Given | 05/02/20 | 400 mg | | | | | 19 3:39 | elementa | | | | | PM PDT | l | | | +-------+ + +---+---+ | Given | 05/02/20 | 400 mg | | | | | 19 2:14 | elementa | | | | | AM PDT | l | | | +-------+ + +---+---+ +---+---+ | | | +---+---+ + +-------+ +-----+---+---+ | ceFAZolin (ANCEF) injection 1 g | Given | 04/28/20 | 1 g | | | | 1 g, intravenous, EVERY 8 | | 19 8:24 | | | | | HOURS, First dose on Thu04/25/19 | | AM PDT | | | | | at 1600, Until Discontinued | | | | | | + +-------+ +-----+---+---+ +-------+ +-----+---+---+ | Given | 04/28/20 | 1 g | | | | | 19 12:41 | | | | | | AM PDT | | | | +-------+ +-----+---+---+ | Given | 04/27/20 | 1 g | | | | | 19 3:22 | | | | | | PM PDT | | | | +-------+ +-----+---+---+ +---+---+ | | | +---+---+ + + + +-------+---+---+ | chlorhexidine (PERIDEX) | Pt | 04/27/20 | 15 mL | | | | mouthwash 15 mL 15 mL, oral, | Administ | 19 3:48 | | | | | EVERY 1 HOUR, First dose on Thu | ered | PM PDT | | | | | 04/25/19 at 2200, Until | | | | | | | Discontinued | | | | | | + + + +-------+---+---+ +-------+ +-------+---+---+ | Given | 04/27/20 | 15 mL | | | | | 19 3:16 | | | | | | PM PDT | | | | +-------+ +-------+---+---+ | Given | 04/27/20 | 15 mL | | | | | 19 12:57 | | | | | | PM PDT | | | | +-------+ +-------+---+---+ +---+---+ | | | +---+---+ + +-------+ +-------+---+---+ | chlorhexidine (PERIDEX) | Given | 05/04/20 | 15 mL | | | | mouthwash 15 mL 15 mL, oral, | | 19 10:02 | | | | | EVERY 4 HOURS WHILE AWAKE, First | | AM PDT | | | | | dose (after last modification) on | | | | | | | 04/27/19 at 1800, Until | | | | | | | Discontinued | | | | | | + +-------+ +-------+---+---+ +-------+ +-------+---+---+ | Given | 05/04/20 | 15 mL | | | | | 19 5:58 | | | | | | AM PDT | | | | +-------+ +-------+---+---+ | Given | 05/03/20 | 15 mL | | | | | 19 9:09 | | | | | | PM PDT | | | | +-------+ +-------+---+---+ +---+---+ | | | +---+---+ + +-------+ +-------+---+---+ | chlorhexidine (PERIDEX) | Given | 05/07/20 | 15 mL | | | | mouthwash 15 mL 15 mL, oral, | | 19 8:27 | | | | | TWICE DAILY, 6 doses, First dose | | AM PDT | | | | | on 05/04/19 at 2100, Last dose | | | | | | | on 05/07/19 at 0900 | | | | | | + +-------+ +-------+---+---+ +-------+ +-------+---+---+ | Given | 05/06/20 | 15 mL | | | | | 19 9:10 | | | | | | PM PDT | | | | +-------+ +-------+---+---+ | Given | 05/06/20 | 15 mL | | | | | 19 7:57 | | | | | | AM PDT | | | | +-------+ +-------+---+---+ +---+---+ | | | +---+---+ + +-------+ +-------+---+---+ | chlorhexidine (PERIDEX) | Given | 05/08/20 | 15 mL | | | | mouthwash 15 mL 15 mL, oral, | | 19 2:32 | | | | | FOUR TIMES DAILY NEEDED, | | PM PDT | | | | | Starting 05/08/19 at 1322, | | | | | | | Until 05/09/19 at 2150, mouth | | | | | | | rinsing | | | | | | + +-------+ +-------+---+---+ +---+---+ | | | +---+---+ + +-------+ +------+---+---+ | dexamethasone (DECADRON) | Given | 05/06/20 | 8 mg | | | | injection 8 mg 8 mg, | | 19 7:58 | | | | | intravenous, EVERY 8 HOURS, 5 | | AM PDT | | | | | doses, First dose on Thu05/05/19 | | | | | | | at 0000, Last dose on Thu05/06/19 | | | | | | | at 0800 | | | | | | + +-------+ +------+---+---+ +-------+ +------+---+---+ | Given | 05/06/20 | 8 mg | | | | | 19 12:05 | | | | | | AM PDT | | | | +-------+ +------+---+---+ | Given | 05/05/20 | 8 mg | | | | | 19 3:57 | | | | | | PM PDT | | | | +-------+ +------+---+---+ +---+---+ | | | +---+---+ + +-------+ +-------+---+---+ | famotidine (PEPCID) suspension | Given | 05/05/20 | 20 mg | | | | 20 mg 20 mg, oral, TWICE DAILY, | | 19 8:22 | | | | | First dose on Thu05/05/19 at | | AM PDT | | | | | 0900, Until Discontinued | | | | | | + +-------+ +-------+---+---+ +---+---+ | | | +---+---+ + + + +--------+---------+---+ | fentaNYL (SUBLIMAZE) 2500 | Rate/Dos | 05/05/20 | 50 | 5 mL/hr | | | mcg/250 mL (10 mcg/mL) IV | e Verify | 19 10:00 | mcg/hr | | | | infusion (RTU) 50 mcg/hr (5 | | AM PDT | | | | | mL/hr), intravenous, CONTINUOUS, | | | | | | | Starting 05/04/19 at 1900, | | | | | | | Until [place] 05/05/19 at 1015 | | | | | | + + + +--------+---------+---+ + + +--------+---------+---+ | Rate/Dose Verify | 05/05/20 | 50 | 5 mL/hr | | | | 19 9:00 | mcg/hr | | | | | AM PDT | | | | + + +--------+---------+---+ | Rate/Dose Verify | 05/05/20 | 50 | 5 mL/hr | | | | 19 8:00 | mcg/hr | | | | | AM PDT | | | | + + +--------+---------+---+ +---+---+ | | | +---+---+ + + + +--------+---+---+ | fentaNYL (SUBLIMAZE) bolus from | Bolus | 05/05/20 | 50 mcg | | | | continuous infusion 50-100 mcg | from | 19 8:45 | | | | | intravenous, EVERY 30 MINUTES | Same Bag | AM PDT | | | | | NEEDED, Starting 05/04/19 at | | | | | | | 1829, Until [facility] 05/05/19 at 1015, | | | | | | | CPOT not at goal | | | | | | + + + +--------+---+---+ + + +--------+---+---+ | Bolus from Same Bag | 05/05/20 | 50 mcg | | | | | 19 7:46 | | | | | | AM PDT | | | | + + +--------+---+---+ +---+---+ | | | +---+---+ + +-------+ +---+---+---+ | fluorouracil (EFUDEX) 5 % cream | Given | 04/30/20 | | | | | topical, TWICE DAILY, 8 doses, | | 19 9:37 | | | | | First dose on Thu04/28/19 at | | AM PDT | | | | | 2100, Last dose on Thu05/02/19 at | | | | | | | 0900 | | | | | | + +-------+ +---+---+---+ +-------+ +---+---+---+ | Given | 04/29/20 | | | | | | 19 9:45 | | | | | | PM PDT | | | | +-------+ +---+---+---+ | Given | 04/29/20 | | | | | | 19 8:34 | | | | | | AM PDT | | | | +-------+ +---+---+---+ +---+---+ | | | +---+---+ + +-------+ +--------+---+---------+ | heparin injection 5,000 Units | Given | 05/09/20 | 5,000 | | Abdomen | | 5,000 Units, subcutaneous, EVERY | | 19 8:12 | Units | | | | 12 HOURS, First dose on [place] | | AM PDT | | | | | 05/05/19 at 2100, Until | | | | | | | Discontinued | | | | | | + +-------+ +--------+---+---------+ +-------+ +--------+---+---------+ | Given | 05/07/20 | 5,000 | | Abdomen | | | 19 9:25 | Units | | | | | PM PDT | | | | +-------+ +--------+---+---------+ | Given | 05/07/20 | 5,000 | | Abdomen | | | 19 8:27 | Units | | | | | AM PDT | | | | +-------+ +--------+---+---------+ +---+---+ | | | +---+---+ + +-------+ +-------+---+---+ | hydrOXYzine pamoate (VISTARIL) | Given | 05/06/20 | 50 mg | | | | capsule 50 mg 50 mg, oral, EVERY | | 19 10:00 | | | | | 6 HOURS NEEDED, Starting [facility] | | PM PDT | | | | | 04/28/19 at 1456, Until Mon | | | | | | | 05/09/19 at 2150, anxiety | | | | | | + +-------+ +-------+---+---+ +-------+ +-------+---+---+ | Given | 05/05/20 | 50 mg | | | | | 19 1:31 | | | | | | PM PDT | | | | +-------+ +-------+---+---+ +---+---+ | | | +---+---+ + +---------+ +--------+---+---+ | iohexol (OMNIPAQUE) 350 mg | IV Push | 04/27/20 | 100 mL | | | | iodine/mL injection 100 mL 100 | | 19 3:08 | | | | | mL, intravenous, ONCE, 1 dose, | | PM PDT | | | | | 04/27/19 at 1545 | | | | | | + +---------+ +--------+---+---+ +---+---+ | | | +---+---+ + +---------+ +--------+---+---+ | lactated ringers IV 500 mL, | New Bag | 04/26/20 | 500 mL | | | | intravenous, ONCE, 1 dose, Tue | | 19 7:50 | | | | | 04/26/19 at 0630 | | AM PDT | | | | + +---------+ +--------+---+---+ +---+---+ | | | +---+---+ + +---------+ +--------+---+---+ | lactated ringers IV 500 mL, | New Bag | 05/04/20 | 500 mL | | | | intravenous, ONCE, 1 dose, Wed | | 19 10:40 | | | | | 05/04/19 at 2300 | | PM PDT | | | | + +---------+ +--------+---+---+ +---+---+ | | | +---+---+ + +---------+ +--------+---+---+ | lactated ringers IV 500 mL, | New Bag | 05/05/20 | 500 mL | | | | intravenous, ONCE, 1 dose, [facility] | | 19 5:23 | | | | | 05/05/19 at 0545 | | AM PDT | | | | + +---------+ +--------+---+---+ +---+---+ | | | +---+---+ + +---------+ +--------+---+---+ | lactated ringers IV 500 mL, | New Bag | 05/05/20 | 500 mL | | | | intravenous, ONCE, 1 dose, [facility] | | 19 12:21 | | | | | 05/05/19 at 1245 | | PM PDT | | | | + +---------+ +--------+---+---+ +---+---+ | | | +---+---+ + +-------+ +-------+---+---+ | lisinopril (PRINIVIL) tablet 10 | Given | 05/04/20 | 10 mg | | | | mg 10 mg, oral, DAILY, First | | 19 9:02 | | | | | dose (after last modification) on | | AM PDT | | | | | [place] 05/01/19 at 0900, Until | | | | | | | Discontinued | | | | | | + +-------+ +-------+---+---+ +-------+ +-------+---+---+ | Given | 05/03/20 | 10 mg | | | | | 19 10:54 | | | | | | AM PDT | | | | +-------+ +-------+---+---+ | Given | 05/02/20 | 10 mg | | | | | 19 9:32 | | | | | | AM PDT | | | | +-------+ +-------+---+---+ +---+---+ | | | +---+---+ + +-------+ +------+---+---+ | lisinopril (PRINIVIL) tablet 5 | Given | 04/30/20 | 5 mg | | | | mg 5 mg, oral, DAILY, First dose | | 19 9:27 | | | | | on [facility] 04/28/19 at 1600, Until | | AM PDT | | | | | Discontinued | | | | | | + +-------+ +------+---+---+ +-------+ +------+---+---+ | Given | 04/29/20 | 5 mg | | | | | 19 8:33 | | | | | | AM PDT | | | | +-------+ +------+---+---+ | Given | 04/28/20 | 5 mg | | | | | 19 4:26 | | | | | | PM PDT | | | | +-------+ +------+---+---+ +---+---+ | | | +---+---+ + +-------+ +------+---+---+ | lisinopril (PRINIVIL) tablet 5 | Given | 04/30/20 | 5 mg | | | | mg 5 mg, oral, ONCE, 1 dose, Sat | | 19 4:15 | | | | | 04/30/19 at 1545 | | PM PDT | | | | + +-------+ +------+---+---+ +---+---+ | | | +---+---+ + +-------+ +-------+---+---+ | losartan (COZAAR) tablet 25 mg | Given | 05/08/20 | 25 mg | | | | 25 mg, oral, AT BEDTIME, First | | 19 9:42 | | | | | dose on 05/08/19 at 2200, | | PM PDT | | | | | Until Discontinued | | | | | | + +-------+ +-------+---+---+ +---+---+ | | | +---+---+ + + + +---+---+---+ | magnesium sulfate in water IV | Rate/Dos | 05/04/20 | | | | | (RTU) 4 g 4 g, intravenous, | e Change | 19 8:54 | | | | | ONCE, 1 dose, 05/04/19 at 2100 | | PM PDT | | | | + + + +---+---+---+ +---------+ +-----+---+---+ | New Bag | 05/04/20 | 4 g | | | | | 19 8:53 | | | | | | PM PDT | | | | +---------+ +-----+---+---+ +---+---+ | | | +---+---+ + +-------+ +--------+---+---+ | metoprolol succinate | Given | 04/25/20 | 100 mg | | | | (TOPROL-XL) tablet 100 mg 100 | | 19 10:28 | | | | | mg, oral, TWICE DAILY, First dose | | PM PDT | | | | | on 04/25/19 at 2100, Until | | | | | | | Discontinued | | | | | | + +-------+ +--------+---+---+ +---+---+ | | | +---+---+ + +-------+ +--------+---+---+ | metoprolol succinate | Given | 04/28/20 | 100 mg | | | | (TOPROL-XL) tablet 100 mg 100 | | 19 8:23 | | | | | mg, oral, DAILY, First dose | | AM PDT | | | | | (after last modification) on Thu | | | | | | | 04/27/19 at 0900, Until | | | | | | | Discontinued | | | | | | + +-------+ +--------+---+---+ +---+---+ | | | +---+---+ + +-------+ +--------+---+---+ | metoprolol succinate | Given | 05/04/20 | 100 mg | | | | (TOPROL-XL) tablet 100 mg 100 | | 19 9:02 | | | | | mg, oral, DAILY, First dose | | AM PDT | | | | | (after last modification) on Thu | | | | | | | 04/29/19 at 0900, Until | | | | | | | Discontinued | | | | | | + +-------+ +--------+---+---+ +-------+ +--------+---+---+ | Given | 05/03/20 | 100 mg | | | | | 19 10:55 | | | | | | AM PDT | | | | +-------+ +--------+---+---+ | Given | 05/02/20 | 100 mg | | | | | 19 9:32 | | | | | | AM PDT | | | | +-------+ +--------+---+---+ +---+---+ | | | +---+---+ + +-------+ +--------+---+---+ | metoprolol succinate | Given | 05/07/20 | 100 mg | | | | (TOPROL-XL) tablet 100 mg 100 | | 19 8:28 | | | | | mg, oral, TWICE DAILY, First dose | | AM PDT | | | | | on Thu05/06/19 at 0900, Until | | | | | | | Discontinued | | | | | | + +-------+ +--------+---+---+ +-------+ +--------+---+---+ | Given | 05/06/20 | 100 mg | | | | | 19 9:09 | | | | | | PM PDT | | | | +-------+ +--------+---+---+ | Given | 05/06/20 | 100 mg | | | | | 19 7:52 | | | | | | AM PDT | | | | +-------+ +--------+---+---+ +---+---+ | | | +---+---+ + +-------+ +--------+---+---+ | metoprolol succinate | Given | 05/09/20 | 100 mg | | | | (TOPROL-XL) tablet 100 mg 100 | | 19 8:12 | | | | | mg, oral, DAILY, First dose | | AM PDT | | | | | (after last modification) on Sun | | | | | | | 05/08/19 at 0900, Until | | | | | | | Discontinued | | | | | | + +-------+ +--------+---+---+ +-------+ +--------+---+---+ | Given | 05/08/20 | 100 mg | | | | | 19 8:40 | | | | | | AM PDT | | | | +-------+ +--------+---+---+ +---+---+ | | | +---+---+ + +-------+ +-------+---+---+ | metoprolol tartrate (LOPRESSOR) | Given | 05/06/20 | 25 mg | | | | tablet 25 mg 25 mg, oral, EVERY | | 19 4:13 | | | | | 6 HOURS, First dose on [place] | | AM PDT | | | | | 05/05/19 at 1600, Until | | | | | | | Discontinued | | | | | | + +-------+ +-------+---+---+ +-------+ +-------+---+---+ | Given | 05/05/20 | 25 mg | | | | | 19 9:33 | | | | | | PM PDT | | | | +-------+ +-------+---+---+ | Given | 05/05/20 | 25 mg | | | | | 19 2:40 | | | | | | PM PDT | | | | +-------+ +-------+---+---+ +---+---+ | | | +---+---+ + +---------+ +--------+---+---+ | metroNIDAZOLE (FLAGYL) IV 500 | New Bag | 04/28/20 | 500 mg | | | | mg 500 mg, intravenous, EVERY 8 | | 19 6:59 | | | | | HOURS, First dose on Thu04/25/19 | | AM PDT | | | | | at 1515, Until Discontinued | | | | | | + +---------+ +--------+---+---+ +---------+ +--------+---+---+ | New Bag | 04/27/20 | 500 mg | | | | | 19 11:28 | | | | | | PM PDT | | | | +---------+ +--------+---+---+ | New Bag | 04/27/20 | 500 mg | | | | | 19 3:22 | | | | | | PM PDT | | | | +---------+ +--------+---+---+ +---+---+ | | | +---+---+ + +-------+ +--------+---+---+ | mycophenolate (CELLCEPT) | Given | 05/04/20 | 250 mg | | | | capsule 250 mg 250 mg, oral, | | 19 9:02 | | | | | TWICE DAILY, First dose (after | | AM PDT | | | | | last modification) on 04/27/19 | | | | | | | at 2100, Until Discontinued | | | | | | + +-------+ +--------+---+---+ +-------+ +--------+---+---+ | Given | 05/03/20 | 250 mg | | | | | 19 9:09 | | | | | | PM PDT | | | | +-------+ +--------+---+---+ | Given | 05/03/20 | 250 mg | | | | | 19 10:52 | | | | | | AM PDT | | | | +-------+ +--------+---+---+ +---+---+ | | | +---+---+ + +-------+ +--------+---+---+ | mycophenolate (CELLCEPT) | Given | 05/09/20 | 250 mg | | | | capsule 250 mg 250 mg, oral, | | 19 8:13 | | | | | TWICE DAILY WITH MEALS (MMF), | | AM PDT | | | | | First dose on Thu05/06/19 at | | | | | | | 0900, Until Discontinued | | | | | | + +-------+ +--------+---+---+ +-------+ +--------+---+---+ | Given | 05/08/20 | 250 mg | | | | | 19 6:33 | | | | | | PM PDT | | | | +-------+ +--------+---+---+ | Given | 05/08/20 | 250 mg | | | | | 19 8:40 | | | | | | AM PDT | | | | +-------+ +--------+---+---+ +---+---+ | | | +---+---+ + +-------+ +--------+---+---+ | mycophenolate (CELLCEPT) | Given | 04/27/20 | 500 mg | | | | capsule 500 mg 500 mg, oral, | | 19 9:05 | | | | | TWICE DAILY, First dose on Mon | | AM PDT | | | | | 04/25/19 at 2100, Until | | | | | | | Discontinued | | | | | | + +-------+ +--------+---+---+ +-------+ +--------+---+---+ | Given | 04/26/20 | 500 mg | | | | | 19 8:04 | | | | | | PM PDT | | | | +-------+ +--------+---+---+ | Given | 04/26/20 | 500 mg | | | | | 19 8:05 | | | | | | AM PDT | | | | +-------+ +--------+---+---+ +---+---+ | | | +---+---+ + +-------+ +--------+---+---+ | mycophenolate (CELLCEPT) | Given | 05/05/20 | 250 mg | | | | suspension 250 mg 250 mg, | | 19 5:55 | | | | | feeding tube, TWICE DAILY WITH | | PM PDT | | | | | MEALS (MMF), First dose on Thu | | | | | | | 05/04/19 at 2215, Until | | | | | | | Discontinued | | | | | | + +-------+ +--------+---+---+ +-------+ +--------+---+---+ | Given | 05/05/20 | 250 mg | | | | | 19 8:22 | | | | | | AM PDT | | | | +-------+ +--------+---+---+ | Given | 05/04/20 | 250 mg | | | | | 19 10:39 | | | | | | PM PDT | | | | +-------+ +--------+---+---+ +---+---+ | | | +---+---+ + + + +---------+---+ + | nicotine (NICOTROL) 14 mg/24 hr | Applied | 05/08/20 | 1 patch | | Left Arm | | 1 patch 1 patch, transdermal, | Patch | 19 8:40 | | | | | DAILY, First dose on 04/25/19 | | AM PDT | | | | | at 1615, Until Discontinued | | | | | | + + + +---------+---+ + + + +---------+---+ + | Applied Patch | 05/05/20 | 1 patch | | Left | | | 19 8:33 | | | Shoulder | | | AM PDT | | | | + + +---------+---+ + | Applied Patch | 04/29/20 | 1 patch | | Abdomen | | | 19 8:33 | | | | | | AM PDT | | | | + + +---------+---+ + +---+---+ | | | +---+---+ + +-------+ +------+---+---+ | ondansetron ODT (ZOFRAN ODT) | Given | 05/01/20 | 8 mg | | | | tablet 8 mg 8 mg, oral, EVERY 12 | | 19 5:12 | | | | | HOURS NEEDED, Starting Mon | | PM PDT | | | | | 04/25/19 at 1434, Until Wed | | | | | | | 05/04/19 at 2026, nausea/vomiting, | | | | | | | first line | | | | | | + +-------+ +------+---+---+ +-------+ +------+---+---+ | Given | 04/27/20 | 8 mg | | | | | 19 11:32 | | | | | | PM PDT | | | | +-------+ +------+---+---+ | Given | 04/26/20 | 8 mg | | | | | 19 2:25 | | | | | | PM PDT | | | | +-------+ +------+---+---+ +---+---+ | | | +---+---+ + +-------+ +------+---+---+ | ondansetron ODT (ZOFRAN ODT) | Given | 05/05/20 | 8 mg | | | | tablet 8 mg 8 mg, feeding tube, | | 19 4:04 | | | | | EVERY 12 HOURS NEEDED, | | PM PDT | | | | | Starting 05/04/19 at 2024, | | | | | | | Until [facility] 05/05/19 at 1958, | | | | | | | nausea/vomiting, first line | | | | | | + +-------+ +------+---+---+ +---+---+ | | | +---+---+ + +-------+ +------+---+---+ | ondansetron ODT (ZOFRAN ODT) | Given | 05/08/20 | 8 mg | | | | tablet 8 mg 8 mg, oral, EVERY 12 | | 19 4:12 | | | | | HOURS NEEDED, Starting [place] | | PM PDT | | | | | 05/05/19 at 1957, Until Mon | | | | | | | 05/09/19 at 2150, nausea/vomiting, | | | | | | | first line | | | | | | + +-------+ +------+---+---+ +-------+ +------+---+---+ | Given | 05/07/20 | 8 mg | | | | | 19 10:56 | | | | | | PM PDT | | | | +-------+ +------+---+---+ +---+---+ | | | +---+---+ + +-------+ +------+---+---+ | oxyCODONE (immediate release) | Given | 05/04/20 | 5 mg | | | | (ROXICODONE) tablet 5 mg 5 mg, | | 19 9:05 | | | | | oral, EVERY 4 HOURS NEEDED, | | AM PDT | | | | | Starting 04/25/19 at 1424, | | | | | | | Until 05/04/19 at 1846, | | | | | | | moderate pain, unresponsive to | | | | | | | non-opioid medication | | | | | | + +-------+ +------+---+---+ +-------+ +------+---+---+ | Given | 05/04/20 | 5 mg | | | | | 19 4:20 | | | | | | AM PDT | | | | +-------+ +------+---+---+ | Given | 05/03/20 | 5 mg | | | | | 19 11:47 | | | | | | PM PDT | | | | +-------+ +------+---+---+ +---+---+ | | | +---+---+ + +-------+ +------+---+---+ | oxyCODONE (immediate release) | Given | 05/05/20 | 5 mg | | | | (ROXICODONE) tablet 5 mg 5 mg, | | 19 11:18 | | | | | oral, EVERY 4 HOURS NEEDED, | | AM PDT | | | | | Starting [facility] 05/05/19 at 1012, | | | | | | | Until [facility] 05/05/19 at 1549, | | | | | | | moderate pain | | | | | | + +-------+ +------+---+---+ +---+---+ | | | +---+---+ + +-------+ +-------+---+---+ | oxyCODONE (immediate release) | Given | 05/09/20 | 10 mg | | | | (ROXICODONE) tablet 5-10 mg 5-10 | | 19 2:42 | | | | | mg, oral, EVERY 4 HOURS | | PM PDT | | | | | NEEDED, Starting [facility] 05/05/19 at | | | | | | | 1548, Until [facility] 05/09/19 at 2150, | | | | | | | moderate pain | | | | | | + +-------+ +-------+---+---+ +-------+ +-------+---+---+ | Given | 05/09/20 | 10 mg | | | | | 19 12:44 | | | | | | PM PDT | | | | +-------+ +-------+---+---+ | Given | 05/09/20 | 10 mg | | | | | 19 8:17 | | | | | | AM PDT | | | | +-------+ +-------+---+---+ +---+---+ | | | +---+---+ + +-------+ +------+---+---+ | polyethylene glycol (MIRALAX) | Given | 05/06/20 | 17 g | | | | packet 17 g 17 g, oral, THREE | | 19 6:12 | | | | | TIMES DAILY NEEDED, Starting | | PM PDT | | | | | 05/04/19 at 1845, Until Mon | | | | | | | 05/09/19 at 2150, 1st line - for | | | | | | | no BM for 2 days | | | | | | + +-------+ +------+---+---+ +---+---+ | | | +---+---+ + +-------+ +------+---+---+ | polyethylene glycol (MIRALAX) | Given | 04/27/20 | 34 g | | | | packet 34 g 34 g, oral, THREE | | 19 8:31 | | | | | TIMES DAILY NEEDED, Starting | | PM PDT | | | | | 04/25/19 at 1423, Until Wed | | | | | | | 05/04/19 at 1846, 1st line - for | | | | | | | no BM for 2 days | | | | | | + +-------+ +------+---+---+ +-------+ +------+---+---+ | Given | 04/27/20 | 34 g | | | | | 19 12:57 | | | | | | PM PDT | | | | +-------+ +------+---+---+ | Given | 04/26/20 | 34 g | | | | | 19 10:38 | | | | | | PM PDT | | | | +-------+ +------+---+---+ +---+---+ | | | +---+---+ + +-------+ +------+---+---+ | prochlorperazine (COMPAZINE) | Given | 05/01/20 | 5 mg | | | | tablet 5-10 mg 5-10 mg, oral, | | 19 8:15 | | | | | EVERY 6 HOURS NEEDED, Starting | | PM PDT | | | | | 04/25/19 at 1434, Until Wed | | | | | | | 05/04/19 at 2027, nausea/vomiting, | | | | | | | second line | | | | | | + +-------+ +------+---+---+ +-------+ +-------+---+---+ | Given | 04/28/20 | 10 mg | | | | | 19 8:28 | | | | | | AM PDT | | | | +-------+ +-------+---+---+ | Given | 04/26/20 | 10 mg | | | | | 19 6:33 | | | | | | PM PDT | | | | +-------+ +-------+---+---+ +---+---+ | | | +---+---+ + + + + +-------+---+ | propofol (DIPRIVAN) injection | Rate/Dos | 05/05/20 | 20 | 8.11 | | | 0.5-50 mcg/kg/min | e Change | 19 10:40 | mcg/kg/m | mL/hr | | | 67.6 kg (0.2028-20.28 mL/hr, | | AM PDT | in | | | | rounded to 0.2-20.28 mL/hr), | | | | | | | intravenous, CONTINUOUS, Starting | | | | | | | 05/04/19 at 1900, Until [facility] | | | | | | | 05/05/19 at 1110 | | | | | | + + + + +-------+---+ + + + +-------+---+ | Rate/Dose Verify | 05/05/20 | 35 | 14.2 | | | | 19 10:00 | mcg/kg/m | mL/hr | | | | AM PDT | in | | | + + + +-------+---+ | Rate/Dose Verify | 05/05/20 | 35 | 14.2 | | | | 19 9:00 | mcg/kg/m | mL/hr | | | | AM PDT | in | | | + + + +-------+---+ +---+---+ | | | +---+---+ + +-------+ + +---+---+ | saliva substitute (MOUTH KOTE) | Given | 05/08/20 | 4 sprays | | | | spray 4 spray 4 spray, oral, | | 19 10:19 | | | | | NEEDED, Starting Thu04/25/19 at | | AM PDT | | | | | 1838, Until Thu05/09/19 at 2150, | | | | | | | dry mouth | | | | | | + +-------+ + +---+---+ +-------+ + +---+---+ | Given | 04/25/20 | 4 sprays | | | | | 19 8:11 | | | | | | PM PDT | | | | +-------+ + +---+---+ +---+---+ | | | +---+---+ + +-------+ + +---+---+ | senna-docusate (SENOKOT S) | Given | 05/03/20 | 1 tablet | | | | 8.6-50 mg 1 tablet 1 tablet, | | 19 9:09 | | | | | oral, TWICE DAILY, First dose on | | PM PDT | | | | | 04/25/19 at 2100, Until | | | | | | | Discontinued | | | | | | + +-------+ + +---+---+ +-------+ + +---+---+ | Given | 05/03/20 | 1 tablet | | | | | 19 10:52 | | | | | | AM PDT | | | | +-------+ + +---+---+ | Given | 05/02/20 | 1 tablet | | | | | 19 8:24 | | | | | | PM PDT | | | | +-------+ + +---+---+ +---+---+ | | | +---+---+ + +-------+ + +---+---+ | senna-docusate (SENOKOT S) | Given | 05/05/20 | 1 tablet | | | | 8.6-50 mg 1 tablet 1 tablet, | | 19 8:22 | | | | | feeding tube, TWICE DAILY, First | | AM PDT | | | | | dose (after last modification) on | | | | | | | 05/04/19 at 2100, Until | | | | | | | Discontinued | | | | | | + +-------+ + +---+---+ +-------+ + +---+---+ | Given | 05/04/20 | 1 tablet | | | | | 19 8:55 | | | | | | PM PDT | | | | +-------+ + +---+---+ +---+---+ | | | +---+---+ + +-------+ + +---+---+ | senna-docusate (SENOKOT S) | Given | 05/09/20 | 1 tablet | | | | 8.6-50 mg 1 tablet 1 tablet, | | 19 8:12 | | | | | oral, TWICE DAILY, First dose | | AM PDT | | | | | (after last modification) on [facility] | | | | | | | 05/05/19 at 2100, Until | | | | | | | Discontinued | | | | | | + +-------+ + +---+---+ +-------+ + +---+---+ | Given | 05/08/20 | 1 tablet | | | | | 19 8:40 | | | | | | AM PDT | | | | +-------+ + +---+---+ | Given | 05/07/20 | 1 tablet | | | | | 19 9:24 | | | | | | PM PDT | | | | +-------+ + +---+---+ +---+---+ | | | +---+---+ + +-------+ +------+---+---+ | sirolimus (RAPAMUNE) tablet 2 | Given | 04/27/20 | 2 mg | | | | mg 2 mg, oral, EVERY MORNING, | | 19 9:05 | | | | | First dose (after last | | AM PDT | | | | | modification) on Thu04/26/19 at | | | | | | | 0900, Until Discontinued | | | | | | + +-------+ +------+---+---+ +-------+ +------+---+---+ | Given | 04/26/20 | 2 mg | | | | | 19 8:04 | | | | | | AM PDT | | | | +-------+ +------+---+---+ +---+---+ | | | +---+---+ + +-------+ +------+---+---+ | tacrolimus 0.5 mg/mL suspension | Given | 05/05/20 | 1 mg | | | | (compound) 1 mg 1 mg, feeding | | 19 5:55 | | | | | tube, TWICE DAILY | | PM PDT | | | | | (CSATACROLIMUS), First dose on | | | | | | | 05/04/19 at 2215, Until | | | | | | | Discontinued | | | | | | + +-------+ +------+---+---+ +-------+ +------+---+---+ | Given | 05/05/20 | 1 mg | | | | | 19 8:22 | | | | | | AM PDT | | | | +-------+ +------+---+---+ | Given | 05/04/20 | 1 mg | | | | | 19 10:39 | | | | | | PM PDT | | | | +-------+ +------+---+---+ +---+---+ | | | +---+---+ + +-------+ +--------+---+---+ | tacrolimus capsule 0.5 mg 0.5 | Given | 05/08/20 | 0.5 mg | | | | mg, oral, DAILY, First dose on | | 19 6:33 | | | | | 05/06/19 at 1800, Until | | PM PDT | | | | | Discontinued | | | | | | + +-------+ +--------+---+---+ +-------+ +--------+---+---+ | Given | 05/07/20 | 0.5 mg | | | | | 19 6:25 | | | | | | PM PDT | | | | +-------+ +--------+---+---+ | Given | 05/06/20 | 0.5 mg | | | | | 19 6:05 | | | | | | PM PDT | | | | +-------+ +--------+---+---+ +---+---+ | | | +---+---+ + +-------+ +------+---+---+ | tacrolimus capsule 1 mg 1 mg, | Given | 05/04/20 | 1 mg | | | | oral, TWICE DAILY, First dose | | 19 5:58 | | | | | (after last modification) on Sat | | AM PDT | | | | | 04/30/19 at 0600, Until | | | | | | | Discontinued | | | | | | + +-------+ +------+---+---+ +-------+ +------+---+---+ | Given | 05/03/20 | 1 mg | | | | | 19 6:07 | | | | | | PM PDT | | | | +-------+ +------+---+---+ | Given | 05/03/20 | 1 mg | | | | | 19 5:56 | | | | | | AM PDT | | | | +-------+ +------+---+---+ +---+---+ | | | +---+---+ + +-------+ +------+---+---+ | tacrolimus capsule 1 mg 1 mg, | Given | 05/06/20 | 1 mg | | | | oral, TWICE DAILY | | 19 8:28 | | | | | (CSATACROLIMUS), First dose on | | AM PDT | | | | | 05/06/19 at 0815, Until | | | | | | | Discontinued | | | | | | + +-------+ +------+---+---+ +---+---+ | | | +---+---+ + +-------+ +------+---+---+ | tacrolimus capsule 1 mg 1 mg, | Given | 05/09/20 | 1 mg | | | | oral, DAILY, First dose (after | | 19 8:13 | | | | | last modification) on 05/07/19 | | AM PDT | | | | | at 0800, Until Discontinued | | | | | | + +-------+ +------+---+---+ +-------+ +------+---+---+ | Given | 05/08/20 | 1 mg | | | | | 19 8:40 | | | | | | AM PDT | | | | +-------+ +------+---+---+ | Given | 05/07/20 | 1 mg | | | | | 19 8:28 | | | | | | AM PDT | | | | +-------+ +------+---+---+ +---+---+ | | | +---+---+ documented in this encounter
--- OUTSIDE RECORDS SUMMARY | ~2019-05-14 | XMS | Encounter Summary ---
Demographics + + + | Address | [address] | | | [place] [address] | + + + | Home Phone [...] Author + + + | Author | [facility] | + + + | Organization | [facility] | + + [...] Team Providers + +------+ + | Care Java Web Architect Name | Role | Phone | + +------+ + | Ritesh England PA-C | PCP | | + +------+ + Encounter Details +--------+ + + + + | Date | Type | Department | Care Team | Description | +--------+ + + + + | 01/14/ | Document-Sc | Health Information | Unknown . | | | 2018 | ann | Services [address] | | | | | [address] | | | | | | Mailcode: [id number] | | | | | | [facility] | | | | | | [place], [place] | | | | | | [address] | | | | | | [phone] | | | +--------+ + + + [...] | | | | | [address] [place], | | | | | | [place] [address] | | | | | | [phone] | | | | | | | | +--------+---------+ + + + documented as of this encounter Visit Diagnoses Not on filedocumented in this encounter"
--- OUTSIDE RECORDS SUMMARY | ~2019-05-14 | XMS | Encounter Summary ---
Demographics + + + | Address | [address] | | | [place] [address] | + + + | Home Phone [...] Author + + + | Author | [facility] | + + + | Organization | [facility] [employer] [facility] | [...] Team Providers + +------+ + | Care Paper Handler Name | Role | Phone | + +------+ + | Sylvester Scherer DO | PCP | | + +------+ + Reason for Referral Diagnostic Testing (Routine) +--------+--------+ + + + + | Status | Reason | Specialty | Diagnoses / | Referred By | Referred To | | | | | Procedures | Contact | Contact | +--------+--------+ + + + + | Closed | | Radiology | Diagnoses | Troob, | Rad Mri | | | | | Squamous | Austin David MD | [address] | | | | | cell cancer | [address] | | | | | of external | Leo | Mailcode: | | | | | ear, right | [address] | [facility] | | | | | Procedures | [place], [place] | for Health | | | | | MRI FACE | [address] | and Healing, | | | | | SINUS | | Building [address], | | | | | PAROTID | | 3rd Floor | | | | | SKULL BASE | | [place], [place] | | | | | WWO CONTRAST | | [address] | | | | | | | Phone: | | | | | | | [phone] | | | | | | | Fax: | | | | | | | [phone] | +--------+--------+ + + + + Reason for Visit + + + | Reason | Comments | + + + | Follow-up visit | | + + + Consultation (Routine) +--------+--------+ + + + + | Status | Reason | Specialty | Diagnoses / | Referred By | Referred To | | | | | Procedures | Contact | Contact | +--------+--------+ + + + + | Closed | | Otolaryngolog | Diagnoses | Kargar, | 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 | | | | | and neck | Internal | Rd Mailcode: | | | | | | Medicin | [address] | | | | | | [address] | Physician's | | | | | | [address] | [address] | | | | | | [place], | [place], [place] | | | | | | [place] [address] | [address] | | | | | | Phone: | Phone: | | | | | | [phone] | [phone] | | | | | | Fax: | Fax: | | | | | | [phone] | [phone] | +--------+--------+ + + + + Encounter Details +--------+---------+ + + + | Date | Type | Department | Care Team | Description | +--------+---------+ + + + | 12/02/ | Office | Otolaryngology | Shlomo Roach MD | Squamous cell cancer | | 2016 | Visit | Head and Neck | [address] | of external ear, | | | | Surgery Services at | [address] [place], | right (Primary Dx) | | | | PPV [address] [facility] | [place] [address] | | | | | [address] | [phone] | | | | | Mailcode: [address] | | | | | | Physician's [address] | | | | | | [place], [place] | | | | | | [address] | | | | | | [phone] | | | +--------+---------+ + + + [...] this encounter Last Filed Vital Signs + +---------+ + + | Vital Sign | Reading | Time Taken | Comments | + +---------+ + + | Blood Pressure | 188/103 | 12/03/2015 2:53 PM | | | | | PDT | | + +---------+ + + | Pulse | 79 | 12/03/2015 2:53 PM | | | | | PDT | | + +---------+ + + | Temperature | - | - | | + +---------+ + + | Respiratory Rate | - | - | | + +---------+ + + | Oxygen Saturation | - | - | | + +---------+ + + | Inhaled Oxygen | - | - | | | Concentration | | | | + +---------+ + + | Weight | - | - | | + +---------+ + + | Height | - | - | | + +---------+ + + | Body Mass Index | - | - | | + +---------+ + + documented in this encounter Progress Notes Shlomo Roach MD - 12/03/2015 4:57 PM PDTClinic Date:12/03/2015 This is a very pleasant gentleman who in 2006, we performed a rectus free flap for his tumo r with a lateral temporal bone resection, auriculectomy, skin resection, neck dissection. Abdiel barrera has done remarkably well from an oncologic perspective with no sign of recurrence, no sign of any other issues related to this. 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 Things have returned an d he has pretty good function from a facial nerve perspective. 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 He is not drinking anymore now. He came in for followup and because he is having chronic existing pain on that right side. It is quite bothersome to him and is deep-seated in there. Review Of Systems: He really had no other problems and issues with it. Physical Examination: Showed an excellent cosmetic and functional result of his lateral te mporal bone resection. He is well healed. His facial nerve function protects his eye and abdiel barrera has good mouth excursion. On palpation, there are no signs of any masses or any other abn ormalities in the temporal region. We ordered an MRI to see if there was any deep recurrence, although at this late game, it w ould be highly unusual. He is immunosuppressed from his liver transplant, so I think it is possible. If he, in fact, does not have recurrent tumor, we are going to have him seen by for the chronic pain. He will call me once we get the MRI done, and I will call him with [facility] results and followup. MD TELLY Delgadillo/SABRA /[id number] signed by Shlomo Roach MD at 12/04/2015 1:56 PM PDTWax Shlomo MD - 12/03/2015 4:00 PM PDTDictation #1 [id number] signed by Shlomo Roach MD at 12/03/2015 4:03 PM PDTdocumented in this en counter Plan of Treatment +--------+---------+ + + + | Date | Type | Specialty | Care Team | Description | +--------+---------+ + + + | 06/17/ | Office | Otolaryngology | Shlomo Roach MD | | | 2019 | Visit | | [address] | | | | | | [address] [place], | | | | | | [place] [address] | | | | | | [phone] | | | | | | | | +--------+---------+ + + + documented as of this encounter Results MRI FACE SINUS PAROTID SKULL BASE WWO CONTRAST (01/04/2016 5:46 PM PDT) + + + + + + | Component | Value | Ref Range | Performed | Pathologist | | | | | At | Signature | + + + + + + | MR SINUSES | EXAM: MR face (sinus, | | | | | WWO | parotid, and/or skull | | | | | CONTRAST | base) without and with | | | | | | contrast HISTORY: | | | | | | 55-year-old male with | | | | | | history of squamous 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 Patient has | | | | | | history of rectusfree | | | | | | flap repair with lateral | | | | | | temporal bone | | | | | | resection, | | | | | | auriculectomy, | | | | | | skinresection, and neck | | | | | | dissection performed in | | | | | | 2005. Evaluate for tumor | | | | | | recurrence COMPARISON: | | | | | | CT of the neck from | | | | | | 08/15/15 TECHNIQUE: | | | | | | Multiplanar, | | | | | | multi-sequence MR of the | | | | | | face without and | | | | | | withgadolinium based | | | | | | intravenous contrast. | | | | | | FINDINGS: Postsurgical | | | | | | changes related to right | | | | | | sided neck dissection | | | | | | and auriculectomywith | | | | | | free flap repair are | | | | | | noted. The muscular free | | | | | | flap appears | | | | | | unremarkable.The right | | | | | | parotid gland is been | | | | | | surgically removed. | | | | | | There is residual | | | | | | parotidtissue overlying | | | | | | the masseter muscle. | | | | | | Along the resection | | | | | | directly underneaththe | | | | | | flap there is no | | | | | | evidence of mass or | | | | | | pathologically enlarged | | | | | | adenopathy.There is a | | | | | | small focus of | | | | | | enhancement adjacent to | | | | | | the right styloid | | | | | | process inproximity to a | | | | | | susceptibility artifact | | | | | | which is favored to be | | | | | | vascular innature. The | | | | | | sinus glands appear | | | | | | normal as do the orbits. | | | | | | Limited views | | | | | | intracraniallyreveal no | | | | | | acute process. There is | | | | | | no abnormally enlarged | | | | | | cervical station | | | | | | lymphnodes identified. | | | | | | The parapharyngeal and | | | | | | retropharyngeal spaces | | | | | | are clear.Polypoid | | | | | | mucosal thickening in | | | | | | the left maxillary | | | | | | sinus. IMPRESSION: 1. | | | | | | Expected postsurgical | | | | | | changes involving the | | | | | | right external auditory | | | | | | canal,periauricular soft | | | | | | tissues, and neck. | | | | | | There is no evidence of | | | | | | abnormalenhancement, or | | | | | | pathologically enlarged | | | | | | adenopathy. Attending | | | | | | Radiologists: ANTOLIN Cee | | | | | | CASEY MDAuthor: SELENE | | | | | | MD TOÑO I | | | | | | personally reviewed the | | | | | | images and, if | | | | | | necessary, edited the | | | | | | report. I agreewith the | | | | | | report as now presented. | | | | | | | | | | | | Final/Electronically | | | | | | signed / ANTOLIN Cee | | | | | | CASEY 01/05/2016 12:45 | | | | | | PM | | | | + + + + + + + + | Specimen | + + | | + + + +---------+ + + | Performing | Address | City/State/Zipcode | Phone Number | | Organization | | | | + +---------+ + + | [facility] | | | | | RADIOLOGY | | | | + +---------+ + + documented in this encounter Visit Diagnoses + + | Diagnosis | + + | Squamous cell cancer of external ear, right - Primary | + + documented in this encounter"
--- OUTSIDE RECORDS SUMMARY | ~2019-05-14 | XMS | Encounter Summary ---
Demographics + + + | Address | [address] | | | [place] [address] | + + + | Home Phone | | + + + | Preferred Language | Unknown | + + + | Marital Status | Single | + + + | Lutheran Affiliation | BAP | + + + | Race | White | + + + | Ethnic Group | Not or | + + + Author + + + | Author | [facility] | + + + | Organization | [facility] | + [...] Team Providers + +------+ + | Care Hat Blocker Name | Role | Phone | + +------+ + | Ritesh England PA-C | PCP | | + +------+ + Encounter Details +--------+ + + + + | Date | Type | Department | Care Team | Description | +--------+ + + + + | 11/23/ | Lab | [facility] [address] | Unknown . | | | 2018 | Requisition | [address] | | | | | | [address] [place], [place] | | | | | | [address] | | | +--------+ + + + [...] | | | | | [address] [place], | | | | | | [place] [address] | | | | | | [phone] | | | | | | | | +--------+---------+ + + + documented as of this encounter Visit Diagnoses + + | Diagnosis | + + | Encounter for other screening for genetic and chromosomal anomalies | + + documented in this encounter"
--- OUTSIDE RECORDS SUMMARY | ~2019-05-14 | XMS | Encounter Summary ---
Demographics + + + | Address | [address] | | | [place] [address] | + + + | Home Phone [...] Author + + + | Author | [facility] [employer] [facility] | + + + | Organization | [facility] [employer] [facility] | + + [...] Team Providers + +------+ + | Care Pin Ball Machine Mechanic Name | Role | Phone | [...] Description | +--------+--------+ + + + | 03/06/ | Refill | Transplant | Brittney Pratt | Refill Request | | 2017 | | [address] | MD Kiah [address] | | | | | [address] | [place], [place] | | | | | [place], [place] | [address] | | | | | [address] | [phone] | | | | | [phone] | | | +--------+--------+ + + + [...] | | | | | [address] [place], | | | | | | [place] [address] | | | | | | [phone] | | | | | | | | +--------+---------+ + + + documented as of this encounter Visit Diagnoses Not on filedocumented in this encounter"
--- OUTSIDE RECORDS SUMMARY | ~2019-05-14 | XMS | Encounter Summary ---
Demographics + + + | Address | [address] | | | [place] [address] | + + + | Home Phone | | + + + | Preferred Language | Unknown | + + + | Marital Status | Single | + + + | Roman Catholic Affiliation | BAP | + + + | Race | White | + + + | Ethnic Group | Not or | + + + Author + + + | Author | [facility] | + + + | Organization | [facility] [employer] [facility] | + + + [...] Team Providers + +------+ + | Care Integration Architect Name | Role | Phone | [...] + + + + | 01/14/ | Anesthesia | 6A Intra Op [facility] | Milvia Fong MD | | | 2018 | Event | [facility] | [address] [facility] | | | | | Admitting Desk | [address] | | | | | Located on the 9 | [place], [place] | | | | | floor [address] [facility] | [address] | | | | | [address] | [phone] | | | | | [place], [place] | | | | | | [address] | | | +--------+ + + + + Anesthesia Record + + + + + | Procedure Name | Responsible | Anesthesia Start | Anesthesia Stop Time | | | Anesthesiologist | Time | | + + + + + | HIP [facility] (Right Hip) | Milvia Fong MD | 01/14/18727 | 01/14/18917 | + + + + + +----+---+ + + | Da | T | Event | Comment | | te | i | | | | | m | | | | | e | | | +----+---+ + + | 06 | 0 | Pt. Check | Prior to anesthesia start, pt. Identified, examined, chart | | /1 | 6 | | reviewed, ARACELY held, anesthetic plan made or approved by | | 4/ | 1 | | attending anesthesiologist. NPO status confirmed as appropriate | | 20 | 9 | | for procedure Preoperative evaluation: unchanged | | 18 | | | | +----+---+ + + | | 0 | Eq Check | Anesthesia machine checked Equipment verified | | | 6 | | | | | 2 | | | | | 8 | | | +----+---+ + + | | 0 | Timeout | | | | 6 | | | | | 3 | | | | | 8 | | | +----+---+ + + | | 0 | O2 by NC | | | | 6 | | | | | 4 | | | | | 1 | | | +----+---+ + + | | 0 | Vitals | Monitors applied Vital signs checked Patient ready for anesthesia | | | 6 | Checked | | | | 4 | | | | | 1 | | | +----+---+ + + | | 0 | Start PNB | | | | 6 | SS | | | | 4 | | | | | 6 | | | +----+---+ + + | | 0 | PNB SS Stop | | | | 6 | | | | | 5 | | | | | 0 | | | +----+---+ + + | | 0 | Eq Check | Anesthesia machine checked Equipment verified | | | 7 | | | | | 0 | | | | | 1 | | | +----+---+ + + | | 0 | An Start | | | | 7 | | | | | 2 | | | | | 8 | | | +----+---+ + + | | 0 | An Start | | | | 7 | Data | | | | 2 | | | | | 8 | | | +----+---+ + + | | 0 | Preprocedur | Pt ID confirmed, informed consent obtained, insertion site | | | 7 | e Checklist | marked, equipment available | | | 2 | | | | | 8 | | | +----+---+ + + | | 0 | Vitals | Monitors applied Vital signs checked Patient ready for anesthesia | | | 7 | Checked | | | | 2 | | | | | 9 | | | +----+---+ + + | | 0 | Abx | | | | 8 | Administere | | | | 0 | d | | | | 0 | | | +----+---+ + + | | 0 | Ready | | | | 8 | | | | | 0 | | | | | 2 | | | +----+---+ + + | | 0 | Incision | | | | 8 | | | | | 0 | | | | | 4 | | | +----+---+ + + | | 0 | SGA Removed | | | | 9 | | | | | 0 | | | | | 1 | | | +----+---+ + + | | 0 | Surgery end | | | | 9 | | | | | 0 | | | | | 7 | | | +----+---+ + + | | 0 | an stop | | | | 9 | data | | | | 0 | | | | | 7 | | | +----+---+ + + | | 0 | Anesthesia | | | | 9 | End | | | | 1 | | | | | 8 | | | +----+---+ + + | | 0 | PACU Rpt | | | | 9 | Given | | | | 1 | | | | | 8 | | | +----+---+ + + +------+ | Meds | +------+ + +--------+ | Name | Total | + +--------+ | fentaNYL | 25 mcg | + +--------+ | bupivacaine 0.5% | 20 mL | + +--------+ | propofol | 100 mg | + +--------+ | lidocaine 2% | 80 mg | + +--------+ | ePHEDrine | 2.5 mg | + +--------+ | hydrALAZINE | 10 mg | + +--------+ | LR | 350 mL | + +--------+ | LR | 0 mL | + +--------+ + + | Name | + + | O2 FR Avance (Total Liters) | + + | Air FR Avance (l/min) | + + | Insp Sevo | + + | Et Sevo | + + | Insp Iso | + + | Et Iso | + + | EtN2O % | + + | Insp N2O % | + + + + | No [...] + | Incisi | 04/22/17; Chyna; Right; Lateral; | 04/22/17 0000 by | [...] +--------+ + + + | Periph | 01/14/18; 0805; Right; Dorsal; | 01/14/18 0805 by | 01/18/18 1146 by | | eral | Hand; 20 g; None; No; Positive; | Shamar Edwards, | Simeon Richards, | | IV | 01/18/18; 1146; Discharge | HOSPICE CLINICAL SUPERVISOR | RN | +--------+ + + + [...] | | | | | [address] [place], | | | | | | [place] [address] | | | | | | [phone] | | | | | | | | +--------+---------+ + + + documented as of this encounter Procedures + +--------+ + + + | Procedure Name | Priori | Date/Time | Associated Diagnosis | Comments | | | ty | | | | + +--------+ + + + | ANE PNB SS | Routin | 01/14/2018 | | | | | e | 6:53 AM | | | | | | PDT | | | + +--------+ + + + +---+--------+ | | | | | Proced | | | ure | | | Note - | | | | | | Fong, | | | Milvia | | | J, MD | | | - | | | 01/14/ | | | 2018 | | | 6:53 | | | AM PDT | | | | | | Single | | | -Shot | | | TypeTy | | | pe | | | femora | | | l | | | block | | | Techni | | | que | | | used | | | ultras | | | ound | | | guided | | | Side | | | right | | | Block | | | indica | | | tion: | | | for | | | block | | | placed | | | for | | | combin | | | ed | | | surgic | | | al | | | anesth | | | esia | | | and | | | postop | | | pain | | | manage | | | ment | | | Pre-Op | | | The | | | patien | | | t was | | | identi | | | fied, | | | the | | | site | | | marked | | | , full | | | PARQ | | | DonePr | | | ocedur | | | ePt. | | | Positi | | | on | | | Supine | | | , | | | Monito | | | rs | | | used | | | NIBP | | | and | | | SpO2 | | | Suppli | | | mental | | | O2 | | | used | | | Single | | | Shot | | | Prep: | | | Chlora | | | Prep | | | | | | Ultras | | | oundSp | | | read | | | Charac | | | terist | | | ics: | | | full | | | spread | | | | | | around | | | | | | nerve/ | | | plexus | | | Image | | | | | | printe | | | d and | | | placed | | | in | | | patien | | | ts | | | chart | | | Guidan | | | ce: | | | Needle | | | tip | | | visual | | | izedNe | | | edleNe | | | edle | | | type: | | | Short- | | | bevel | | | Gauge: | | | 21 G | | | | | | Length | | | : 4 | | | in No, | | | | | | Aspira | | | tion | | | was | | | Negati | | | ve for | | | | | | bloodN | | | erve | | | Stimul | | | atorAs | | | sessme | | | ntIst | | | attemp | | | t | | | Compli | | | cation | | | s: | | | None, | | | | | | Attend | | | ing | | | physic | | | ally | | | presen | | | t | | | Attend | | | ing | | | Name: | | | FONG, | | | MILVIA | | | J | | | Assist | | | ed by | | | Jose | | | Aziz. | +---+--------+ documented in this encounter Visit Diagnoses Not on filedocumented in this encounter Administered Medications + +--------+ +-------+------+------+ | Medication Order | MAR | Action | Dose | Rate | Site | | | Action | Date | | | | + +--------+ +-------+------+------+ | bupivacaine (PF) | Given | 01/15/20 | 20 mL | | | | (MARCAINE,SENSORCAINE-MPF) | | 18 6:49 | | | | | injection INTRAPROCEDURE PRN, | | AM PDT | | | | | Starting [facility] 01/14/18 at 0649, | | | | | | | Until [facility] 01/14/18 at 0907 | | | | | | + +--------+ +-------+------+------+ +---+---+ | | | +---+---+ + +-------+ +--------+---+---+ | ePHEDrine injection | Given | 01/15/20 | 2.5 mg | | | | intravenous, INTRAPROCEDURE PRN, | | 18 7:43 | | | | | Starting [facility] 01/14/18 at 0743, | | AM PDT | | | | | Until [facility] 01/14/18 at 0907 | | | | | | + +-------+ +--------+---+---+ +---+---+ | | | +---+---+ + +-------+ +--------+---+---+ | fentaNYL citrate (PF) | Given | 01/15/20 | 25 mcg | | | | (SUBLIMAZE) injection | | 18 6:45 | | | | | INTRAPROCEDURE PRN, Starting [facility] | | AM PDT | | | | | 01/14/18 at 0645, Until [facility] | | | | | | | 01/14/18 at 0907 | | | | | | + +-------+ +--------+---+---+ +---+---+ | | | +---+---+ + +-------+ +-------+---+---+ | hydrALAZINE (APRESOLINE) | Given | 01/15/20 | 10 mg | | | | injection intravenous, | | 18 8:58 | | | | | INTRAPROCEDURE PRN, Starting [facility] | | AM PDT | | | | | 01/14/18 at 0858, Until [facility] | | | | | | | 01/14/18 at 0907 | | | | | | + +-------+ +-------+---+---+ +---+---+ | | | +---+---+ + +---------+ +---+---+---+ | lactated Ringers IV | New Bag | 01/15/20 | | | | | INTRAPROCEDURE CONTINUOUS PRN, | | 18 8:03 | | | | | Starting [facility] 01/14/18 at 0720, | | AM PDT | | | | | Until [facility] 01/14/18 at 0907 | | | | | | + +---------+ +---+---+---+ +---------+ +---+---+---+ | New Bag | 01/15/20 | | | | | | 18 7:20 | | | | | | AM PDT | | | | +---------+ +---+---+---+ +---+---+ | | | +---+---+ + +---------+ +---+-------+---+ | lactated Ringers IV | New Bag | 01/15/20 | | 150 | | | INTRAPROCEDURE CONTINUOUS PRN, | | 18 8:03 | | mL/hr | | | Starting [facility] 01/14/18 at 0803, | | AM PDT | | | | | Until [facility] / at 0907 | | | | | | + +---------+ +---+-------+---+ +---+---+ | | | +---+---+ + +-------+ +-------+---+---+ | lidocaine (XYLOCAINE MPF) 2 % | Given | 01/15/20 | 80 mg | | | | (20 mg/mL) injection | | 18 7:36 | | | | | INTRAPROCEDURE PRN, Starting [facility] | | AM PDT | | | | | 01/14/18 at 0736, Until [facility] | | | | | | | 18 at 0907 | | | | | | + +-------+ +-------+---+---+ +---+---+ | | | +---+---+ + +-------+ +--------+---+---+ | propofol INTRAPROCEDURE PRN, | Given | 01/15/20 | 100 mg | | | | Starting [facility] 01/14/18 at 0736, | | 18 7:36 | | | | | Until [facility] 18 at 0907 | | AM PDT | | | | + +-------+ +--------+---+---+ +---+---+ | | | +---+---+ documented in this encounter"
--- OUTSIDE RECORDS SUMMARY | ~2019-05-14 | XMS | Encounter Summary ---
Demographics + + + | Address | [address] | | | [place] [address] | + + + | Home Phone | | + + + | Preferred Language | Unknown | + + + | Marital Status | Single | + + + | Religion Affiliation | BAP | + + + | Race | White | + + + | Ethnic Group | Not or | + + + Author + + + | Author | [facility] [employer] [facility] | + + + | Organization | [facility] [employer] [facility] | + + + | Address | [...] Team Providers + +------+ + | Care Handstitching Machine Armhole Feller Name | Role | Phone | + +------+ + | Ritesh England PA-C | PCP | | + +------+ + Reason for Visit + + + | Reason | Comments | + + + | Liver Transplant | anti-rejection med plan | | Follow Up | | + + + Encounter Details +--------+ + + + + | Date | Type | Department | Care Team | Description | +--------+ + + + + | 05/10/ | Telephone | Transplant | Yvette Perkins RN | Liver Transplant | | 2019 | | [address]ators [address] | [address] | Follow Up | | | | [address] | [address], | (anti-rejection med | | | | [place], [place] | [place] [address] | plan) | | | | [address] | | | | | | [phone] | | | +--------+ + + + [...] | | | | | [address] [place], | | | | | | [place] [address] | | | | | | [phone] | | | | | | | | +--------+---------+ + + + documented as of this encounter Visit Diagnoses Not on filedocumented in this encounter"
--- OUTSIDE RECORDS SUMMARY | ~2019-05-14 | XMS | Encounter Summary ---
Demographics + + + | Address | [address] | | | [place] [address] | + + + | Home Phone [...] | Author | [facility] [employer] [facility] | + + + | Organization | [facility] | + [...] Providers + +------+ + | Care Senior Research Scientist Name | Role | Phone | + [...] Description | +--------+---------+ + + + | 03/04/ | Surgery | 6A Intra Op [facility] | Shlomo Roach MD | EXCISION OF SKIN | | 2018 | | [facility] | [address] | LESIONS OF NECK, | | | | Admitting Desk | [place], | LEFT ARM, PLACEMENT | | | | Located on the 9th | [place] [address] | OF RIGHT EYELID | | | | floor [address] [facility] | [phone] | WEIGHT | | | | [address] | | | | | | [place], [place] | | | | | | [address] | | | +--------+---------+ + + + [...] + + + | Blood Pressure | 144/89 | 03/04/2018 2:11 PM | | | | | PDT | | + + + + + | Pulse | 89 | 03/04/2018 2:11 PM | | | | | PDT | | + + + + + | Temperature | 36.6 C (97.9 F) | 03/04/2018 12:02 PM | | | | | PDT | | + + + + + | Respiratory Rate | 16 | 03/04/2018 2:11 PM | | | | | PDT | | + + + + + | Oxygen Saturation | 98% | 03/04/2018 2:11 PM | | | | | PDT | | + + + + + | Inhaled Oxygen | - | - | | | Concentration | | | | + + + + + | Weight | 59 kg (130 lb) | 03/03/2018 9:00 AM | | | | | PDT | | + + + + + | Height | 172.7 cm (5' 8") | 03/03/2018 9:00 AM | | | | | PDT | | + + + + + | Body Mass Index | 19.77 | 03/03/2018 9:00 AM | | | [...] documented as of this encounter Discharge Summaries Juanjose Gupta PA-C - 03/04/2018 12:58 PM PDT DOS: 03/04/2018 12:58 PM INPATIENT PHYSICIAN DISCHARGE SUMMARY Author: JUANJOSE GUPTA PA-C Attending Physician: Shlomo Roach MD PCP: Ritesh England PA-C Admission Date: 03/03/2018 Discharge Date: 04 Mar 2018 PROCEDURE: 03/04/2018 Dr. Maxwell Hendrix III, MD Wide local skin excision of left arm, left neck (2 specimens), right neck Gold Weight placement Right superior eyelid Diagnosis: Multiple skin cancers and right facial paralysis Past Medical History: Diagnosis Date Abdominal pain Actinic keratoses Alcoholism (HCC) Anxiety Chronic airway obstruction (HCC) Chronic neck pain Chronic pain sounds like trigeminal neuralgia, right side of the face Cirrhosis (HCC) Coarse tremors Congestive heart failure (HCC) Dilated cardiomyopathy (HCC) Disorder of liver HCC [...] carcinoma) of skin 09/17/2005 Vitamin D deficiency Brief Hospital Course: Marissa Buenrostro is a 58 y.o. Male with Hx of HFrEF (NICM) las t EF 35% in 2017, ETOH/HCV cirrhosis s/p liver transplant in 2011, HTN, multiple recurrent s quamous cell carcinomas, Hx of Methamphetamine abuse, Femoral fracture s/p ORIF 1 month ago and anxiety disorder. He presented to the hospital on 03/03/2018 for elective surgery. Cardioannika patel was consulted for preoperative evaluation. He reports to me that he has been compliant with lasix, amlodipine but has not been taking carvedilol because it made him feel nauseated.He has not seen his demographic analyst for the past year. Cardiology recommended the following: Impression: #Preoperative evaluation for elective procedure Patient is not in active heart failure at the moment and LV function improved to normal He was very functional prior to his fracture He also has recent surgery without cardiac complication. Proceed with surgery with usual caution, no medical optimization or additional testing need ed. Please hold off on restarting betablocker #Chronic HF with recovered EF Patient is well compensated at the moment Will continue on diuretics and amlodipine Patient will need out-patient cardiology appointment Patient will need to be resumed on beta-aly after the procedure as well as started on A CEI #HTN BP is elevated to 150/90 Will continue CCB for now, consider switching to betablocker and ACEI as outpatient #Current active smoker, Amphetamine abuse Patient has been counseled on smoking cessation #s/p OLT Continue immunosuppression per hepatology Discussed with patient the importance of following up with his prior demographic analyst in 1-2 we eks. All reports were given to the patient. He agreed he would be compliant with his medicat ions and follow up with his demographic analyst. He was given a prescription of Amlodipine, Lasix a nd Coreg till he follow up with his outpatient demographic analyst, as he was out of the medication s. Cardiology cleared him for the procedure. The patient was taken to the OR on 03/03/2018 for the above procedures. During the procedure, no complications were noted. At the end of the procedure, the patient was extubated, and tr ansferred to the post-anesthesia care unit. Once recovered, the patient was transferred to [facility] post-surgical patten where he remained for the rest of the hospitalization. The patient had no post-operative events The patient was admitted to floor for observation and post-operative management. On the [facility] or the patient was stable and without complications. The patient had stable respiratory stat us on room air. The surgical incisions remained clean, dry, and intact. By date of discharge patient was tolerating oral diet without abdominal pain, nausea or vomiting. The patient's pain was controlled with oral medications. Patient discharged home and he was informed on ap propriate follow-up care. Medications: Medication List START taking these medications acetaminophen 325 mg Tab Commonly known as: TYLENOL Take 1-2 tablets by mouth every four hours as needed. bacitracin 500 unit/gram Oint Apply to affected area two times daily. Apply to wounds (arm, neck). Do not apply to eye. erythromycin 5 mg/gram (0.5 %) Oint Please apply erythromycin to the external portion of the right eye twice day for 2 weeks. For swelling you can also apply ice too. oxyCODONE (immediate release) 5 mg Tab Commonly known as: ROXICODONE Take 1-2 tablets by mouth every four hours as needed. CONTINUE taking these medications albuterol 90 mcg/actuation Hfaa Commonly known as: PROVENTIL, VENTOLIN Inhale 1-2 puffs by mouth every six hours as needed. Indications: Bronchospastic Pulmonary Disease amLODIPine 10 mg Tab Commonly known as: NORVASC Take 1 tablet by mouth once daily. busPIRone 15 mg Tab Commonly known as: BUSPAR Take 15 mg by mouth two times [...] times daily with meals. Administer with food. furosemide 20 mg Tab Commonly known as: LASIX TK 1/2 T PO THREE TIMES A WEEK magnesium citrate Soln Take 296 mL by mouth once daily as needed (second for constipation). melatonin 3 mg Tab Take 1 tablet by mouth once daily at bedtime. multivitamin-minerals Tab Take 1 tablet by mouth [...] mouth two times daily. sirolimus 1 mg Tab Commonly known as: RAPAMUNE Take 3 tablets by mouth once daily in the morning. Indications: s/p liver transplant OTHER DISCHARGE ORDERS & INSTRUCTIONS OTOLARYNGOLOGY- HEAD AND NECK SURGERY SURGICAL DISCHARGE [...] alternate napping with activity. WEIGHT BEARING RESTRICTIONS: None PAIN: It is expected that you will [...] by a surgeon. Apply a thin layer antibacterial ointment (Bacitracin) to the neck region and left arm inci frida sites at least 2 times a day for 2 weeks. EYE CARE: Erythromycin ointment to the external portion of the right eye twice for 2 weeks Ice as needed for the swelling SYMPTOMS OF A SURGICAL SITE INFECTION: 1) Spreading redness and swelling from the incision. 2) Worsening or uncontrolled pain at the incision 3) Foul smelling or thick/creamy discharge from the incision 4) Chills or fever of a 101.4 degrees or higher Special instructions: Please follow up with your demographic analyst within one to 2 weeks regarding the appropriate med ications for your heart condition. The cardiologists here have recommended the following: an AHMET Inhibitor. HOW TO REACH US: Thursday- Thursday from 8:00am to 4:30pm, call the Otolaryngology clinic at [phone]. After hours, weekends, and holidays, call the [facility] convertible power shovel operator at [phone] and as k to have the ENT doctor on-call paged Schedule the following appointment(s) when you get home Maxwell Hendrix III, MD. Specialty: Otolaryngology Why: We have scheduled your follow up appointment with Dr. Arreola on 03/29 at 2:15 pm, if yo u are unable to make to this appointment please contact our office to reschedule Contact information [address] [place] [address] Future Appointments Date Time Provider Department Center 03/29/2018 2:15 PM Everardo Hendrix III, MD [facility] Otolaryngolo Consults obtained:Asbestos Pipe Supervisor Pertinent imaging:In [facility] EKG: Last EKG January 13 showed sinus rhythm with LVH by voltage Transthoracic Echocardiogram: Last echo in 2016 showed EF 35-40%, AV, MV thickening with small pericardial effusion Echo 03/03/18: Visually estimated left ventricular ejection fraction is 70 - 75%. The global longitudinal strain is -18.0 %. 1. The left ventricular cavity size is normal. 2. There is mild concentric left ventricular hypertrophy. 3. Right ventricular size, thickness and function are normal. 4. Aortic sclerosis Coronary Angiogram: none Chest X-Ray: IMPRESSION: No acute cardiopulmonary process. Pertinent labs: CBC with diff last 72 hours (or 3 results) Recent Labs 03/02/18 1545 03/03/18 1215 WBC 6.23 6.77 HB 13.0* 12.6* HCT 37.3* 36.4* PLT 216 195 Chemistries: Last 72 Hours (or 3 results): Recent Labs 03/02/18 1544 03/03/18 1215 NA 140 142 K 3.4 3.8 CL 105 104 BICARB 27 29 BUN 21* 20 CR 1.04 1.03 GLU 92 89 CA 8.5* 8.9 Liver Tests: Last 72 hours (or 3 results) Recent Labs 03/02/18 1544 03/03/18 1215 AST 44* 45* ALT 54 50 TBILI 0.3 0.3 AP 156* 162* ALB 3.6 3.5 TP 8.0 7.7 Vitals on discharge: Ht 1.727 m (5' 8"), Wt 59 kg (130 lb), BP 154/90, Pulse 79, Temperatur e 36.6 C (97.9 F), RR 16, SpO2 97%, BMI 19.77 kg/(m^2). Outstanding labs/studies: Surgical Pathology Discharging Physician: JUANJOSE GUPTA PA-C Attending Physician: Shlomo Roach MD I spent 56 minutes in the care of this patient. Greater than 50% of the time was spent cou nseling and coordination of care, including physical examination, wound management and coord inating follow-up appointment. JUANJOSE GUPTA PA-C Department of Otolaryngology/Head and Neck Surgery Mail Code PV01 [address] [place] [address] Pager [phone] Consult/Night/Weekend Pager: [phone] A copy of this discharge summary was routed to his demographic analyst. documented in this encounter Medications at Time [...] tablet by | 30 | 0 | 03/04/20 | | | oral tablet | mouth once daily. | tablet | | 18 | 8 | + + + +---------+ + + | carvedilol 12.5 mg | Take 1 tablet by | 60 | 0 | 03/04/20 | | | oral tablet | mouth two times | tablet | | 18 | 8 | | | daily with meals. | | | | | | | Administer with | | | | | | | food. | | | | | + + + +---------+ + + documented as of this encounter Progress Kb Christensen - 03/03/2018 2:42 PM PDTTransthoracic echocardiogram completed. Final re port to follow. documented in this encou nter Plan of Treatment +--------+---------+ + + + | Date | Type | Specialty | Care Team | Description | +--------+---------+ + + + | 06/17/ | Office | Otolaryngology | Shlomo Roach MD | | | 2019 | Visit | | [address] | | | | | | [place], | | | | | | [place] [address] | | | | | | [phone] | | | | | | | | +--------+---------+ + + + documented as of this encounter Procedures + +--------+ + + + | Procedure Name | Priori | Date/Time | Associated Diagnosis | Comments | | | ty | | | | + +--------+ + + + | PROCEDURE NOTE | Routin | 03/04/2018 | | Results for this | | | e | 4:18 PM | | procedure are in the | | | | PDT | | results section. | + +--------+ + + + | OPERATION RECORD | | 03/04/2018 | | Results for this | | | | 4:18 PM | | procedure are in the | | | | PDT | | results section. | + +--------+ + + + | PROCEDURE NOTE | Routin | 03/04/2018 | | Results for this | | | e | 12:43 PM | | procedure are in the | | | | PDT | | results section. | + +--------+ + + + | SURGICAL PATHOLOGY | Routin | 03/04/2018 | | Results for this | | | e | 9:23 AM | | procedure are in the | | | | PDT | | results section. | + +--------+ + + + | EXCISION LESION | | 03/04/2018 | MULTIPLE SQUAMOUS | | | FACE, HEAD OR NECK | | 8:20 AM | CELL CARCINOMA OF | | | | | PDT | FACE, NECK, LEFT ARM | | | | | | AND SCALP | | + +--------+ + + + | X-RAY CHEST 2 VIEW | Routin | 03/03/2018 | | Results for this | | | e | 5:10 PM | | procedure are in the | | | | PDT | | results section. | + +--------+ + + + | 12 LEAD ECG | Routin | 03/03/2018 | | Results for this | | | e | 4:21 PM | | procedure are in the | | | | PDT | | results section. | + +--------+ + + + | TRANSTHORACIC | Routin | 03/03/2018 | | Results for this | | ECHOCARDIOGRAM, | e | 1:44 PM | | procedure are in the | | ADULT | | PDT | | results section. | + +--------+ + + + | CBC (HEMOGRAM) ONLY | Routin | 03/03/2018 | | Results for this | | | e | 12:15 PM | | procedure are in the | | | | PDT | | results section. | + +--------+ + + + | INR | Routin | 03/03/2018 | | Results for this | | | e | 12:15 PM | | procedure are in the | | | | PDT | | results section. | + +--------+ + + + | COMPLETE METABOLIC | Routin | 03/03/2018 | | Results for this | | SET | e | 12:15 PM | | procedure are in the | | (NA,K,CL,CO2,BUN,CRE | | PDT | | results section. | | AT,GLUC,CA,AST,ALT,B | | | | | | YAYO TOTAL,ALK | | | | | | PHOS,ALB,PROT TOTAL) | | | | | + +--------+ + + + | CBC ONLY | Routin | 03/03/2018 | | Results for this | | | e | 12:15 PM | | procedure are in the | | | | PDT | | results section. | + +--------+ + + + | APTT (ACT. PART. | Routin | 03/03/2018 | | Results for this | | THROMBO TIME) | e | 12:15 PM | | procedure are in the | | | | PDT | | results section. | + +--------+ + + + | ANTIBODY SCREEN | Routin | 03/03/2018 | | Results for this | | | e | 12:15 PM | | procedure are in the | | | | PDT | | results section. | + +--------+ + + + | TYPE AND SCREEN | Routin | 03/03/2018 | | Results for this | | | e | 12:15 PM | | procedure are in the | | | | PDT | | results section. | + +--------+ + + + | ABO & RH TYPE | Routin | 03/03/2018 | | Results for this | | | e | 12:15 PM | | procedure are in the | | | | PDT | | results section. | + +--------+ + + + | INTRAPROCEDURE | Routin | 03/03/2018 | | Results for this | | IMAGING | e | 9:44 AM | | procedure are in the | | | | PDT | | results section. | + +--------+ + + + documented in this encounter Results OPERATION RECORD (03/04/2018 4:18 PM PDT) + + | Procedure Note | + + | Shlomo Roach MD - 03/04/2018 4:18 PM PDT Date of Service: 03/04/2018 Attending | | Surgeon:Shlomo Roach MD Mr. Buenrostro had his | | surgical procedure done today. He had right and left neck tumors excised, as well as a | | lesion on the left arm. Dr. Lawson was the attending surgeon of record. I was | | available and present in the operating room suite.EVAN Delgadillo/NAIDALDD: 03/05/2018 | | 11:37:20DT: 03/05/2018 11:58:36Job #: [id number] | | | | | | | |Shlomo Roach MD | |MW/MODL | | | | | | /[id number] | + + PROCEDURE NOTE (03/04/2018 4:18 PM PDT)PROCEDURE NOTE (03/04/2018 12:43 PM PDT) + + + | Narrative | Performed At | + + + | Everardo Hendrix III, MD 03/04/2018 1:28 PM OTOLARYNGOLOGY | | | Head and Neck Surgery Final Operative Note Date: 03/04/2018 | | | Attending Surgeon: Kelsie Hendrix III, MD Cutting Machine Tender(s): | | | Milvia Spencer Preoperative Diagnosis(es): Multiple skin | | | cancers and right facial paralysis, incomplete eye closure, | | | recurrent right lower eyelid infections Postoperative | | | Diagnosis(es): Same as above Procedure Performed: Wide local | | | skin excision of left arm 1 specimen, left neck (2 specimens), right | | | neck 1 specimen. Gold Weight placement Right superior eyelid | | | Anesthesia: General Complications: None Estimated | | | Blood Loss: 10 mL Specimens: Left arm skin excision 3cm x | | | 2cm - linear closure Left Neck skin excision x 2 - 1st 6cm x 4cm, 2nd | | | 2cm x 2cm - both linear closure Right neck excision - 4cm x 3 cm - | | | linear closure Disposition: To PACU Findings: Skin | | | excisions of grossly abnormal lesions concerning for squamous cell | | | carcinoma. Patient had many many other similar lesions on his head, | | | neck, face and scalp that were not symptomatic and that he | | | specifically did not want addressed today. Patient also had | | | recurrent right lower eyelid infections - likely due to poor eye | | | closure and dust accumulation. Also patient reported dry eye | | | pre-operatively on the right Indications: Skin excisions of | | | grossly abnormal lesions concerning for squamous cell carcinoma. | | | Patient had many many other similar lesions on his head, neck, face | | | and scalp that were not symptomatic and that he specifically did not | | | want addressed today. The lesions excised today were distinctly | | | marked in pre-op and were symptomatically painful. Patient also | | | had recurrent right lower eyelid infections - likely due to poor | | | eye closure and dust accumulation. 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 Procedure: The patient was properly | | | identified and brought to the Operating Room, placed in a supine | | | position, intubated using endotracheal tube and administered general | | | anesthesia by members of the Anesthesiology Service. The patient | | | was prepped and draped in the usual sterile fashion. A time out was | | | completed. Then 8ml of 1 % lidocaine with 1:100 000 epinephrine | | | was injected into the subcutaneous tissue in the areas around the | | | skin excision with an approximate 5mm margin. Attention was turned | | | to the Gold weight placement to allow the local anesthetic to work. | | | A 15 blade scalpel was used to incise the skin and | | | subcutaneous tissue. A colorado tip bovie was used to incise the | | | orbicularis oculi muscle. Curved iris scissors were used to create | | | a pocket over the superior tarsal plate. A 1.2 g gold weight was | | | placed in line with the iris and pupil. This was sutured in place | | | on the inferior aspect down to the tarsal plate with a 5.0 prolene | | | suture. The skin and orbicularis were draped over the weight. A | | | 5.0 caprosyn was used to close the muscle. A 5.0 fast absorbing | | | plain gut was used to close the skin. Attention was then turned | | | to the right neck followed by the left neck. A 15-blade was used to | | | incise the skin down to the level of the platysma muscle. | | | Electrocautery was then used to dissect through the underlying | | | subcutaneous tissue at the level of the platysma muscle preserving | | | the EJ veins and Greater Auricular nerves bilaterally. The specimens | | | were assessed as they were excised and no obvious tumor had | | | extended to the level of the platysma and all 3 neck specimens were | | | removed without difficulty. The neck incisions were hemostatic | | | and then they were closed in 2 layers; 3-0 vicryl interrupted | | | sutures for the sub-cutaneous and 5-0 Caprosyn suture for skin. | | | Attention was turned to the left arm. The lesion was excised with | | | a 15 blade followed by electrocautery. The wound was hemostatic and | | | it was then closed primarily in a linear fashion. 3-0 vicryl | | | interrupted sutures for the sub-cutaneous and 5-0 Caprosyn suture | | | for skin. At the end of the case, all counts were correct. | | | The patient tolerated the procedure well. The patient was | | | extubated in the Operating Room and taken to the Postanesthesia Care | | | Unit in stable condition. Maxwell Hendrix III, MD 03/04/2018 1:27 | | | PM | | + + + SURGICAL PATHOLOGY (03/04/2018 9:23 AM PDT) + + + + + + | Component | Value | Ref Range | Performed | Pathologist | | | | | At | Signature | + + + + + + | Clinical | The patient is a 58 y.o. | | [facility] | | | History | male with a history of | | DEPARTMENT | | | | invasive SCC of the skin | | OF | | | | of the neck, face, and | | PATHOLOGY | | | | scalp. | | | | + + + + + + | Final | A. Skin, left arm | | [facility] | Electronically | | Pathologic | lesion, excisional | | DEPARTMENT | signed by | | Diagnosis | biopsy: [facility]inic | | OF | Servando P | | | keratosisB. Skin, right | | PATHOLOGY | Mami, | | | neck lesion, excisional | | | ,PhD on | | | biopsy: Squamous cell | | | 03/09/2018 at | | | carcinoma (1.2 cm) | | | 9:24 AM | | | moderately | | | | | | differentiated, | | | | | | superficially invasive | | | | | | (depth 0.5 mm) | | | | | | Negative for | | | | | | lymphovascular or | | | | | | perineural invasion | | | | | | Margins negative for | | | | | | carcinomaC. Skin, left | | | | | | neck lesion #1, | | | | | | excisional biopsy: | | | | | | Squamous cell carcinoma | | | | | | (0.9 cm) moderately | | | | | | differentiated, | | | | | | superficially invasion | | | | | | (depth 1.0 mm) | | | | | | Negative for | | | | | | lymphovascular or | | | | | | perineural invasion | | | | | | Margins negative for | | | | | | carcinomaD. Skin, left | | | | | | neck lesion #2, | | | | | | excisional iopsy: | | | | | | Actinic keratosisCase | | | | | | seen by:Pia | | | | | | [facility] | | | | | | Student FellowReena | | | | | | Puneet Quintanilla - | | | | | | PathologistChristian | | | | | | MD Mami, PhD | | | | | | | | | | | | PathologistMy | | | | | | electronic signature | | | | | | indicates that I have | | | | | | personally reviewed all | | | | | | diagnostic slides, the | | | | | | gross and/or microscopic | | | | | | portion of this report | | | | | | and formulated the final | | | | | | diagnosis. | | | | + + + + + + | Gross | Received are 4 | | [facility] | | | Description | specimens, fresh in | | DEPARTMENT | | | | containers labeled with | | OF | | | | the patient's name | | PATHOLOGY | | | | (initials TRH) and | | | | | | medical record number | | | | | | [id number].A. Arm, left | | | | | | arm lesion:Received | | | | | | labeled "left arm | | | | | | lesion-1" is an | | | | | | elliptical 2.2 x 1 cm | | | | | | un-oriented skin | | | | | | excision with bulging | | | | | | irregular keratotic 1.2 | | | | | | x 0.9 x 0.8 reyna-yellow | | | | | | to jackson-red lesion on | | | | | | skin surface. The lesion | | | | | | extends 0.8 and 0.5 cm | | | | | | from each apex and is | | | | | | 0.1 cm from the nearest | | | | | | lateral margin. The | | | | | | posterior margin is | | | | | | inked black. The apicies | | | | | | are bisected and the | | | | | | remainder is serially | | | | | | sectioned. On sectioning | | | | | | the lesion has a | | | | | | white-yellow interior | | | | | | and is dry and crumbles | | | | | | easily. The specimen is | | | | | | entirely submitted.A1 | | | | | | bisected apiciesA2 | | | | | | sections of lesionA3 | | | | | | sections of lesionsB. | | | | | | Neck, right neck | | | | | | lesion:Received labeled | | | | | | "right neck lesion-2" is | | | | | | a 2.2 x 1.4 x 0.5 cm | | | | | | irregularly-shaped | | | | | | pink | | | | | | | | | | | | reyna piece of excised | | | | | | skin with hair growth. A | | | | | | short stitch designated | | | | | | the superior margin and | | | | | | a long stitch | | | | | | designated the anterior | | | | | | margin. There is a | | | | | | central 1.2 x 0.9 x 0.5 | | | | | | cm irregularly shaped | | | | | | raised yellow-red | | | | | | keratotic lesion with | | | | | | central indentation | | | | | | which is 0.1 cm from the | | | | | | superior/anterior | | | | | | margin, 0.6 cm from the | | | | | | superior margin, 1.1 cm | | | | | | from the anterior | | | | | | margin, 0.3 cm from the | | | | | | inferior margin, and 0.4 | | | | | | cm from the posterior | | | | | | margin. The deep margin | | | | | | is inked black, the | | | | | | superior margin is inked | | | | | | blue, the inferior | | | | | | margin is inked green, | | | | | | the anterior margin is | | | | | | inked red, and the | | | | | | posterior margin is | | | | | | inked orange. On | | | | | | sectioning, the lesion | | | | | | is superficial and | | | | | | crumbles easily. The | | | | | | specimen is sectioned | | | | | | and entirely | | | | | | submitted.B1 anterior | | | | | | edge, bisectedB2 | | | | | | posterior edge, | | | | | | trisectedB3 posterior | | | | | | sections of lesionB4 | | | | | | anterior sections of | | | | | | lesionC. Neck, left neck | | | | | | lesion #1:Received | | | | | | labeled "left neck | | | | | | lesion #1-3" is a 5.4 x | | | | | | 2.5 x 0.4 cm ellipse of | | | | | | reyna-pink excised skin | | | | | | with a short stitch | | | | | | designating the superior | | | | | | margin and a long | | | | | | stitch designating the | | | | | | anterior margin. There | | | | | | are diffuse reyna | | | | | | | | | | | | yellow verruciform, | | | | | | friable lesions | | | | | | measuring up to 0.9 cm | | | | | | in diameter without | | | | | | distinct borders. | | | | | | Lesions are 0.3 cm from | | | | | | the superior margin, 1.6 | | | | | | cm from the posterior | | | | | | margin, 0.4 cm from the | | | | | | inferior margin, and 0.6 | | | | | | cm from the anterior | | | | | | margin. The deep margin | | | | | | is inked black, the | | | | | | superior margin is inked | | | | | | blue, the inferior | | | | | | margin is inked green, | | | | | | the anterior margin is | | | | | | inked red, and the | | | | | | posterior margin is | | | | | | inked orange. On | | | | | | sectioning, the lesions | | | | | | are superficial and | | | | | | crumble easily. The | | | | | | specimen is sectioned | | | | | | and entirely | | | | | | submitted.C1 anterior | | | | | | marginC2 posterior | | | | | | marginC3 anterior | | | | | | sections of lesion(s)C4 | | | | | | posterior sections of | | | | | | lesion(s)D. Neck, left | | | | | | neck lesion #2:Received | | | | | | labeled "left neck | | | | | | lesion #2 | | | | | | | | | | | | 4" is a 1.3 x 0.6 x 0.3 | | | | | | cm a lift of jackson | | | | | | | | | | | | pink skin with a central | | | | | | 0.3 x 0.3 is yellow | | | | | | friable keratotic lesion | | | | | | with a short stitch | | | | | | designating the superior | | | | | | margin and a long | | | | | | stitch designating the | | | | | | anterior margin. The | | | | | | superoanterior margin is | | | | | | inked blue, the | | | | | | superoposterior margin | | | | | | is inked blue, and the | | | | | | inferior margin is inked | | | | | | black. On sectioning, | | | | | | the lesion is | | | | | | superficial and crumbles | | | | | | easily. The specimen is | | | | | | sectioned and entirely | | | | | | submitted.D1 anterior | | | | | | margin, bisectedD2 | | | | | | posterior margin, | | | | | | bisectedD3 lesions | | | | | | serially | | | | | | sectioned(AJB).scc | | | | + + + [...] | | | | | determined by [facility] | | | | | | laboratories. [...] Specimen | + + | Tissue - Upper limb | | structure (body | | structure) [...] | + + + + + | [facility] | [address] | [place] [address] | | | PATHOLOGY | [address] | | | + + + + + X-RAY CHEST 2 VIEW (03/03/2018 5:10 PM PDT) + + | Specimen | + + | | + + + + + | Narrative | Performed At | + + + | EXAM: CHEST 2 VIEWS HISTORY: Pre op evaluation | [facility] | | COMPARISON: Outside radiographs 01/12/2018 FINDINGS: The | RADIOLOGY VOICE | | cardiomediastinal contours are normal. There is no focal | RECOGNITION 2 | | consolidation. There is no pleural effusion or pneumothorax. | | | Irregularity at the lateral aspect of the right ninth rib likely | | | represents healed fracture deformity. No acute osseous abnormality is | | | identified. Surgical clips projecting at the right neck soft tissues | | | are incidentally noted. IMPRESSION: No acute cardiopulmonary | | | process. I have personally reviewed the images and, if | | | necessary, edited the report. I agree with the report as now | | | presented. Final signature: Francesca Joiner MD 03/04/2018 8:42 AM | | | Preliminary: Shamar Ambriz MD Dictation initiated: | | | Shamar Ambriz MD 03/03/2018 5:15 PM | | + + + + + | Procedure Note | + + | Service Account, Radiant Res In Interface - 03/04/2018 8:43 AM PDT EXAM: CHEST 2 | | VIEWS HISTORY: Pre op evaluation COMPARISON: Outside radiographs 01/12/2018 FINDINGS: | | The cardiomediastinal contours are normal. There is no focal consolidation. There is no | | pleural effusion or pneumothorax. Irregularity at the lateral aspect of the right ninth | | rib likely represents healed fracture deformity. No acute osseous abnormality is | | identified. Surgical clips projecting at the right neck soft tissues are incidentally | | noted. IMPRESSION: No acute cardiopulmonary process. I have personally reviewed the | | images and, if necessary, edited the report. I agree with the report as now presented. | | Final signature: Francesca Joiner MD 03/04/2018 8:42 AM Preliminary: Shamar Gillette | | MD Katina Dictation initiated: Shamar Ambriz MD 03/03/2018 5:15 PM | | | |IMPRESSION: | | | |No acute cardiopulmonary process. | | | | | |I have personally reviewed the images and, if necessary, edited the report. I agree with th e report as now presented. | | | |Final signature: Francesca Joiner MD 03/04/2018 8:42 AM | |Preliminary: Shamar Ambriz MD | |Dictation initiated: Shamar Ambriz MD 03/03/2018 5:15 PM | + + + +---------+ + + | Performing | Address | City/State/Zipcode | Phone Number | | Organization | | | | + +---------+ + + | [facility] | | | | | VOICE RECOGNITION 2 | | | | + +---------+ + + 12 LEAD ECG (03/03/2018 4:21 PM PDT) + + + + + + | Component | Value | Ref Range | Performed | Pathologist | | | | | At | Signature | + + + + + + | VENTRICULAR | 78 | bpm | [facility] | | | RATE | | | OF | | | | | | CARDIOLOGY | | + + + + + + | ATRIAL RATE | 78 | ms | [facility] | | | | | | OF | | | | | | CARDIOLOGY | | + + + + + + | P-R | 165 | ms | [facility] | | | INTERVAL | | | OF | | | | | | CARDIOLOGY | | + + + + + + | P AXIS | 60 | deg | [facility] | | | | | | OF | | | | | | CARDIOLOGY | | + + + + + + | QRS | 105 | ms | [facility] | | | DURATION | | | OF | | | | | | CARDIOLOGY | | + + + + + + | QT | 413 | ms | [facility] | | | | | | OF | | | | | | CARDIOLOGY | | + + + + + + | QTCB | 471 | ms | [facility] | | | | | | OF | | | | | | CARDIOLOGY | | + + + + + + | R AXIS | -27 | deg | [facility] | | | | | | OF | | | | | | CARDIOLOGY | | + + + + + + | T AXIS | 45 | deg | [facility] | | [...] + + + + | ECG | Anterior ST elevation, | | [facility] | | | IMPRESSION | probably due to LVH | | OF | | | | | | CARDIOLOGY | | + + + + + + | ECG | Borderline prolonged QT | | [facility] | | | IMPRESSION | interval- ABNORMAL ECG - | | OF | | | | | | CARDIOLOGY | | + + + + + + | ECG | Electronically signed | | [facility] | | | IMPRESSION | by: KATHY GUTIERREZ | | OF | | | | 03-04-2018 16:54:03 | | CARDIOLOGY | | + + [...] | [facility] | [address] | [place], [place] | | | CARDIOLOGY | [address] | [address] | | + + + + + TRANSTHORACIC ECHOCARDIOGRAM, ADULT (03/03/2018 1:44 PM PDT) + + + + + + | Component | Value | Ref Range | Performed | Pathologist | | | | | At | Signature | + + + + + + | BIPLANE, EF | 66 | | [facility] | | | | | | OF | | | | | | CARDIOLOGY | | + + + + + + | EJECTION | 70 to 75 | | [facility] | | | FRACTION | | | OF | | | | | | CARDIOLOGY | | + + + + + + | LVIDD | 3.6 | | [facility] | | | | | | OF | | | | | | CARDIOLOGY | | + + + + + + | MV A VMAX | 1.1 | | [facility] | | | | | | OF | | | | | | CARDIOLOGY | | + + + + + + | MV E? | 0.1 | | [facility] | | | | | | OF | | | | | | CARDIOLOGY | | + + + + + + | MV E VMAX | 0.7 | | [facility] | | | | | | OF | | | | | | CARDIOLOGY | | + + + + + + | RV TAPSE | 2.2 | | [facility] | | | | | | OF | | | | | | CARDIOLOGY | | + + + + + + | RV TDI S? | 15.0 | | [facility] | | | | | | OF | | | | | | CARDIOLOGY | | + + + + + + | EJECTION | 72.5 | % | [facility] | | | FRACTION | | | OF | | | RANGE MEAN | | | CARDIOLOGY | | | VALUE | | | | | + + + + + + + + | Specimen | + + | | + + + +---- + | Narrative | Per formed At | + +---- + | [facility] | [facility] | | and [facility] [address] | | [place], [place] [address] Ph: | | | Pt Name: MARISSA BUENROSTRO JR. | | | Study Date/Time 03/03/2018 / 1:44:11 PMMRN: [id number] | | | Most recent prior: -Acc #: [id number] | | | No. previous echos: 0DOB: 1960 58 years | | | Heart Rate: 90 bpmHeight: 68.0 in | | | Blood Pressure: 159/99 mm/HgWeight: 130.0 lb | | | Gender: MBSA: 1.70 m2 | | | Order ID: [id number] [employer] Metal Sprayer: Kb | | | Meena TADEOSonographer 2:Referring Provider: Mart Ernst | | | [facility] Performed: 2D, Color flow, Spectral Doppler and | | | Strain.Study Quality: Good.Exam Indication: Heart failureHistory: 58 | | | y.o. male with history of ETOH cirrhosis and HCV s/p OLT (2012), | | | chronic immunosuppression, systolic heart failure, HTN, CKD, and | | | multiple recurrent squamous cell carcinomas Patient history has been | | | obtained from the EHR Transthoracic Echocardiographic Report | | | + +Final | | | Impressions: | | | | | | | | | 1. The left | | | ventricular cavity size is normal. 2. There is | | | mild concentric left ventricular hypertrophy. 3. Right | | | ventricular size, thickness and function are normal. | | | | | | 4. Aortic sclerosis | | | 5. There are no prior exams available for comparison. | | | | | | | | | + + | | | Description of Findings: Cardiac Rhythm: Normal sinus rhythm.Left | | | Ventricle: The left ventricular cavity size is normal. Visually | | | estimated left ventricular ejection fraction is 70 - 75%. The global | | | longitudinal strain is -18.0 %. There is mild concentric left | | | ventricular hypertrophy. The LV diastolic filling pattern has impaired | | | relaxation. The ejection fraction is 65.7 % as measured by Gaviria's | | | biplane method.Atria: Left atrial size is normal. Normal right | | | atrium.Right Ventricle: Right ventricular size, thickness and function | | | are normal. TAPSE measures 2.2cm. The RV TDI s' velocity is | | | 15cm/sec.Aortic Valve: The aortic valve is trileaflet and mildly | | | sclerotic. No indication of aortic valve regurgitation. There is a | | | small, echogenic nodule (measuring 5mm) attached to the ventricular | | | side of the aortic valve. This is most consistent with degenerative | | | aortic sclerosis. No aortic stenosis.Mitral Valve: The mitral valve is | | | normal in structure and function. Mild mitral annular calcification. | | | No evidence of mitral valve regurgitation.Tricuspid Valve: The | | | tricuspid valve is normal in structure and function. Trace tricuspid | | | regurgitation.Pulmonic Valve: The pulmonic valve is normal in | | | structure and function. No indication of pulmonary valve | | | regurgitation. The peak trans pulmonic gradient is 4.2 mmHg.Aorta: | | | Visualized portions of the ascending aorta and aortic root appear | | | normal.Pericardium: No pericardial effusion is seen. Additional | | | Findings: There are no prior exams.2D Measurements | | | Doppler Measurements 2D NL Values Aortic | | | MitralLVID(d) 3.65 (3.5-5.7cm) Max Reji 1.66 | | | Peak E 0.67 cm | | | m/s m/sLVID(s) 2.31 | | | Mean grad 5.4 Peak A 1.09 cm | | | mmHg m/sIVS(d) 1.23 | | | (0.6-1.1cm) LVOT Reji 1.04 E/A Ratio 0.61 cm | | | m/sLVPW(d) 1.44 | | | (0.6-1.1cm) TDI (E/e') 9.6 cm | | | LVOT Diam 2.54 MV mn gdLV Mass 147.0 | | | cm g | | | Tricuspid PulmonicLV Mass 86.4 (43-95 F), TR | | | Vmax 2.53 PV Vmax 1.0Index g/m2 (49-115 M) | | | m/s m/sLA vol A/L 50.6 (40-73ml)BP | | | ml Aorta: | | | Index:LA vol A/L 29.7 (16-34) Ao Sinus 3.43 | | | (2.1-3.5cm)index ml/m2 cmLA | | | vol MOD 46.5 (40-73ml)BP mlLA vol MOD 27.3 | | | (16-34)index ml/m2 Biplane EF 65.7 %GLS % -18.0 | | | %Evaluation of chamber size and geometry is accomplished | | | through the incorporation of linear, volumetric, and indexed values | | | Report electronically signed by: [id number] Andreas Denny MD (03/03/2018, | | | 3:36:52 PM)Fellow(s) participating in diagnosis: Thien Huston; | | | Final | | |LV Mass 147.0 cm | | | g Tricuspid Pulmonic | | |LV Mass 86.4 (43-95 F), TR Vmax 2.53 PV Vmax 1.0 | | |Index g/m2 (49-115 M) m/s m/s | | |LA vol A/L 50.6 (40-73ml) | | |BP ml Aorta: Index: | | |LA vol A/L 29.7 (16-34) Ao Sinus 3.43 (2.1-3.5cm) | | |index ml/m2 cm | | |LA vol MOD 46.5 (40-73ml) | | |BP ml | | |LA vol MOD 27.3 (16-34) | | |index ml/m2 | | | | | |Biplane EF 65.7 % | | |GLS % -18.0 | | | % | | |Evaluation of chamber size and geometry is accomplished through the incorporation of | | |linear, volumetric, and indexed values | | | | | |Report electronically signed by: [id number] Andreas Denny MD (03/03/2018, 3:36:52 PM) | | |Fellow(s) participating in diagnosis: Thien Huston; | | | | | | | | | | | | Final | | + +---- + + + | Procedure Note | + + | Interface, Cardiology Results - 03/03/2018 3:36 PM [facility] | | [facility] Echocardiography Laboratory [address] [place] [address] | | [place], [place] [address] Pt Name: MARISSA CHOWDHURY | | CHITRA ELKINS Study Date/Time 03/03/2018 / 1:44:11 [id number] | | Most recent prior: -Acc #: [id number] No. previous echos: 0DOB: | | 1960 58 years Heart Rate: 90 bpmHeight: 68.0 in Blood | | Pressure: 159/99 mm/HgWeight: 130.0 lb Gender: MBSA: | | 1.70 m2 Order ID: [id number] [employer] Sprayer: Kb Robledo | | RCSSonographer 2:Referring Provider: Mart Ernst [facility] Performed: | | 2D, Color flow, Spectral Doppler and Strain.Study Quality: Good.Exam Indication: Heart | | failureHistory: 58 y.o. male with history of ETOH cirrhosis and HCV s/p OLT (2011), | | chronic immunosuppression, systolic heart failure, HTN, CKD, and multiple recurrent | | squamous cell carcinomas Patient history has been obtained from the EHR Transthoracic | | Echocardiographic | | Report+ +Final Impressions: | | | | 1. The left | | ventricular cavity size is normal. 2. There is mild concentric left | | ventricular hypertrophy. 3. Right ventricular size, thickness and function are | | normal. 4. Aortic sclerosis | | 5. There are no prior exams available for comparison. | | | | + + Description of Findings: | | Cardiac Rhythm: Normal sinus rhythm.Left Ventricle: The left ventricular cavity size is | | normal. Visually estimated left ventricular ejection fraction is 70 - 75%. The global | | longitudinal strain is -18.0 %. There is mild concentric left ventricular hypertrophy. | | The LV diastolic filling pattern has impaired relaxation. The ejection fraction is 65.7 | | % as measured by Gaviria's biplane method.Atria: Left atrial size is normal. Normal | | right atrium.Right Ventricle: Right ventricular size, thickness and function are normal. | | TAPSE measures 2.2cm. The RV TDI s' velocity is 15cm/sec.Aortic Valve: The aortic valve | | is trileaflet and mildly sclerotic. No indication of aortic valve regurgitation. There | | is a small, echogenic nodule (measuring 5mm) attached to the ventricular side of the | | aortic valve. This is most consistent with degenerative aortic sclerosis. No aortic | | stenosis.Mitral Valve: The mitral valve is normal in structure and function. Mild mitral | | annular calcification. No evidence of mitral valve regurgitation.Tricuspid Valve: The | | tricuspid valve is normal in structure and function. Trace tricuspid | | regurgitation.Pulmonic Valve: The pulmonic valve is normal in structure and function. No | | indication of pulmonary valve regurgitation. The peak trans pulmonic gradient is 4.2 | | mmHg.Aorta: Visualized portions of the ascending aorta and aortic root appear | | normal.Pericardium: No pericardial effusion is seen. Additional Findings: There are no | | prior exams.2D Measurements Doppler Measurements 2D NL | | Values Aortic MitralLVID(d) 3.65 (3.5-5.7cm) Max Reji 1.66 Peak E | | 0.67 cm m/s m/sLVID(s) 2.31 | | Mean grad 5.4 Peak A 1.09 cm mmHg | | m/sIVS(d) 1.23 (0.6-1.1cm) LVOT Reji 1.04 E/A Ratio 0.61 cm | | m/sLVPW(d) 1.44 (0.6-1.1cm) TDI (E/e') 9.6 | | cm LVOT Diam 2.54 MV mn gdLV Mass 147.0 | | cm g Tricuspid PulmonicLV Mass 86.4 (43-95 F), | | TR Vmax 2.53 PV Vmax 1.0Index g/m2 (49-115 M) m/s | | m/sLA vol A/L 50.6 (40-73ml)BP ml Aorta: | | Index:LA vol A/L 29.7 (16-34) Ao Sinus 3.43 (2.1-3.5cm)index ml/m2 | | cmLA vol MOD 46.5 (40-73ml)BP mlLA vol MOD 27.3 (16-34)index | | ml/m2 Biplane EF 65.7 %GLS % -18.0 %Evaluation of chamber size and | | geometry is accomplished through the incorporation of linear, volumetric, and indexed | | values Report electronically signed by: [id number] Andreas Denny MD (03/03/2018, 3:36:52 | | PM)Fellow(s) participating in diagnosis: Thien Huston; Final | |attached to the ventricular side of the aortic valve. This is most consistent with | |degenerative aortic sclerosis. No aortic stenosis. | |Mitral Valve: The mitral valve is normal in structure and function. Mild mitral | |annular calcification. No evidence of mitral valve regurgitation. | |Tricuspid Valve: The tricuspid valve is normal in structure and function. Trace | |tricuspid regurgitation. | |Pulmonic Valve: The pulmonic valve is normal in structure and function. No indication | | of pulmonary valve regurgitation. The peak trans pulmonic gradient is 4.2 mmHg. | |Aorta: Visualized portions of the ascending aorta and aortic root appear normal. | |Pericardium: No pericardial effusion is seen. | | | |Additional Findings: There are no prior exams. | |2D Measurements Doppler Measurements | | | | 2D NL Values Aortic Mitral | |LVID(d) 3.65 (3.5-5.7cm) Max Reji 1.66 Peak E 0.67 | | cm m/s m/s | |LVID(s) 2.31 Mean grad 5.4 Peak A 1.09 | | cm mmHg m/s | |IVS(d) 1.23 (0.6-1.1cm) LVOT Reji 1.04 E/A Ratio 0.61 | | cm m/s | |LVPW(d) 1.44 (0.6-1.1cm) TDI (E/e') 9.6 | | cm LVOT Diam 2.54 MV mn gd | |LV Mass 147.0 cm | | g Tricuspid Pulmonic | |LV Mass 86.4 (43-95 F), TR Vmax 2.53 PV Vmax 1.0 | |Index g/m2 (49-115 M) m/s m/s | |LA vol A/L 50.6 (40-73ml) | |BP ml Aorta: Index: | |LA vol A/L 29.7 (16-34) Ao Sinus 3.43 (2.1-3.5cm) | |index ml/m2 cm | |LA vol MOD 46.5 (40-73ml) | |BP ml | |LA vol MOD 27.3 (16-34) | |index ml/m2 | | | |Biplane EF 65.7 % | |GLS % -18.0 | | % | |Evaluation of chamber size and geometry is accomplished through the incorporation of | |linear, volumetric, and indexed values | | | |Report electronically signed by: [id number] Andreas Denny MD (03/03/2018, 3:36:52 PM) | |Fellow(s) participating in diagnosis: Thien Huston; | | | | | | | | Final | + + + + + + + | Performing | Address | City/State/Zipcode | Phone Number | | Organization | | | | + + + + + | [facility] | [address] | [place], [place] | | | CARDIOLOGY | [facility] | [phone] | | + + + + + CBC (HEMOGRAM) ONLY (03/03/2018 12:15 PM PDT) + + + + + + | Component | Value | Ref Range | Performed | Pathologist | | | | | At | Signature | + + + + + + | WHITE CELL | 6.77 | 3.50 - 10.80 | [facility] | | | COUNT | | K/cu mm | LABORATORY | | | | | | SERVICES, | | | | | | CORE | | + + + + + + | RED CELL | 4.25 (L) | 4.50 - 6.00 | [facility] | | | COUNT | | M/cu mm | LABORATORY | | | | | | SERVICES, | | | | | | CORE | | + + + + + + | HEMOGLOBIN | 12.6 (L) | 13.5 - 17.5 | [facility] | | | | | g/dL | LABORATORY | | | | | | SERVICES, | | | | | | CORE | | + + + + + + | HEMATOCRIT | 36.4 (L) | 41.0 - 53.0 % | [facility] | | | | | | LABORATORY | | | | | | SERVICES, | | | | | | CORE | | + + + + + + | MCV | 85.6 | 80.0 - 100.0 fL | [facility] [...] + + + | RDW SD | 40.8 | 35.1 - 46.3 fL | [facility] | | | | | | LABORATORY | | | | | | SERVICES, | | | | | | CORE | | + + + + + + | PLATELET | 195 | 150 - 400 K/cu | [facility] [...] [facility] | [address] | [place] [address] | | | SERVICES, CORE | [address] | | | + + + + + ANTIBODY SCREEN (03/03/2018 12:15 PM PDT) + + + + + [...] | + + + + + | [facility] | [address] | [place] [address] | | | SERVICES, | [address] | | | | TRANSFUSION MEDICINE | | | | + + + + + ABO & RH TYPE (03/03/2018 12:15 PM PDT) + + + + + [...] [facility] | [address] | [place] [address] | | | SERVICES, | [address] | | | | TRANSFUSION MEDICINE | | | | + + + + + APTT (ACT. PART. THROMBO TIME) (03/03/2018 12:15 PM PDT) + +-------+ + + + | Component | Value | Ref Range | Performed | Pathologist | | | | | At | Signature | + +-------+ + + + | APTT | 30.0 | 26.0 - 36.0 | [facility] | [...] [facility] | [address] | [place] [address] | | | SERVICES, CORE | [address] | | | + + + + + INR (03/03/2018 12:15 PM PDT) + +-------+ + + + [...] [facility] | [address] | [place] [address] | | | SERVICES, CORE | [address] | | | + + + + + COMPLETE METABOLIC SET (NA,K,CL,CO2,BUN,CREAT,GLUC,CA,AST,ALT,BILI TOTAL,ALK PHOS,ALB,PROT TOTAL) (03/03/2018 12:15 PM PDT) + +---------+ + + + | Component | Value | Ref Range | Performed | Pathologist | | | | | At | Signature | + +---------+ + + + | GLUCOSE, | 89 | 70 - 99 mg/dL | [facility] [...] | | | LABORATORY | | | ICELANDIC | | | SERVICES, | | | | | | CORE | | + +---------+ + + + | EGFR NON | >60 | >60 mL/min | [facility] | | | -JAE | | | LABORATORY | | | RICAN | | | SERVICES, | | | | | | CORE | | + +---------+ + + + | SODIUM, | 142 | 136 - 145 | [facility] | [...] +---------+ + + + | CHLORIDE, | 104 [...] +---------+ + + + | ALBUMIN, | 3.5 | 3.5 - 4.7 g/dL | [facility] | | | PLASMA | | | LABORATORY | | | (LAB) | | | SERVICES, | | | | | | CORE | | + +---------+ + + + | ALK PHOS | 162 (H) | 56 - 119 U/L | [facility] | | | | | | LABORATORY | | | | | | SERVICES, | | | | | | CORE | | + +---------+ + + + | AST(SGOT) | 45 (H) | <=41 U/L | [facility] | | | | | | LABORATORY | | | | | | SERVICES, | | | | | | CORE | | + +---------+ + + + | ALT (SGPT) | 50 | <=60 U/L | [facility] | | | | | | LABORATORY | | | | | | SERVICES, | | | | | | CORE | | + +---------+ + + + | ANION GAP | 9 | 4 - 11 mmol/L [...] the MDRD equation recommended by the | [facility] | | National Kidney Disease Education Program. [...] | + + + + + | [facility] | [address] | [place] [address] | | | SERVICES, [place] | [address] | | | + + + + + INTRAPROCEDURE IMAGING (03/03/2018 9:44 AM PDT) + + | Specimen | + + | | + + + + + | Narrative | Performed At | + + + | See admission or procedure notes for details of any intraprocedure | | | images obtained. | | + + + documented in this encounter Visit Diagnoses Not on filedocumented in this encounter Administered Medications + +--------+ +--------+------+------+ | Medication Order | MAR | Action | Dose | Rate | Site | | | Action | Date | | | | + +--------+ +--------+------+------+ | acetaminophen (TYLENOL) tablet | Given | 03/04/20 | 650 mg | | | | 325-650 mg 325-650 mg, oral, | | 18 12:17 | | | | | EVERY 4 HOURS NEEDED, Starting | | PM PDT | | | | | Zoya 03/04/18 at 1157, Until Zoya | | | | | | | 03/04/18 at 2218, multimodal pain | | | | | | | control | | | | | | + +--------+ +--------+------+------+ +---+---+ | | | +---+---+ + +-------+ +---------+---+---+ | albuterol (PROVENTIL, VENTOLIN) | Given | 03/04/20 | 2 puffs | | | | 90 mcg/actuation inhaler 1-2 | | 18 12:33 | | | | | puff 1-2 puff, inhalation, EVERY | | PM PDT | | | | | 6 HOURS NEEDED, Starting Thu | | | | | | | 03/03/18 at 1207, Until Thu03/04/18 | | | | | | | at 2218, dyspnea/SOB | | | | | | + +-------+ +---------+---+---+ +-------+ +---------+---+---+ | Given | 03/03/20 | 2 puffs | | | | | 18 5:18 | | | | | | PM PDT | | | | +-------+ +---------+---+---+ +---+---+ | | | +---+---+ + +-------+ +-------+---+---+ | amLODIPine (NORVASC) tablet 10 | Given | 03/04/20 | 10 mg | | | | mg 10 mg, oral, DAILY, First | | 18 12:16 | | | | | dose on Thu03/03/18 at 1600, Until | | PM PDT | | | | | Discontinued | | | | | | + +-------+ +-------+---+---+ +-------+ +-------+---+---+ | Given | 03/03/20 | 10 mg | | | | | 18 4:22 | | | | | | PM PDT | | | | +-------+ +-------+---+---+ +---+---+ | | | +---+---+ + +-------+ +---------+---+ + | bacitracin ointment | Given | 03/04/20 | 1 strip | | Surgical | | INTRAPROCEDURE PRN, Starting Zoya | | 18 10:25 | | | Site | | 03/04/18 at 1025, Until Zoya 03/04/18 | | AM PDT | | | | | at 1043 | | | | | | + +-------+ +---------+---+ + +---+---+ | | | +---+---+ + +-------+ + +---+---+ | calcium-vitamin D (OS-TURNER 500 + | Given | 03/04/20 | 1 tablet | | | | D) 500 mg(1,250mg) -200 unit 1 | | 18 6:36 | | | | | tablet 1 tablet, oral, TWICE | | AM PDT | | | | | DAILY WITH MEALS, First dose on | | | | | | | Thu03/03/18 at 1800, Until | | | | | | | Discontinued | | | | | | + +-------+ + +---+---+ +-------+ + +---+---+ | Given | 03/03/20 | 1 tablet | | | | | 18 6:37 | | | | | | PM PDT | | | | +-------+ + +---+---+ +---+---+ | | | +---+---+ + +-------+ +---------+---+---+ | carvedilol (COREG) tablet 12.5 | Given | 03/03/20 | 12.5 mg | | | | mg 12.5 mg, oral, TWICE DAILY | | 18 6:37 | | | | | WITH MEALS, First dose on Thu | | PM PDT | | | | | 03/03/18 at 1745, Until | | | | | | | Discontinued | | | | | | + +-------+ +---------+---+---+ +---+---+ | | | +---+---+ + +-------+ +-------+---+---------+ | enoxaparin (LOVENOX) injection | Given | 03/03/20 | 40 mg | | Abdomen | | 40 mg 40 mg, subcutaneous, EVERY | | 18 8:09 | | | | | EVENING, First dose on Thu | | PM PDT | | | | | 03/03/18 at 2100, Until | | | | | | | Discontinued | | | | | | + +-------+ +-------+---+---------+ +---+---+ | | | +---+---+ + +-------+ +--------+---+---+ | erythromycin ophthalmic | Given | 03/04/20 | 1 inch | | | | ointment 1 inch 1 inch, Right | | 18 12:30 | | | | | Eye, ONCE, 1 dose, [facility] 03/04/18 at | | PM PDT | | | | | 1200 | | | | | | + +-------+ +--------+---+---+ +---+---+ | | | +---+---+ + +-------+ +--------+---+---+ | fentaNYL (SUBLIMAZE) injection | Given | 03/04/20 | 25 mcg | | | | 50 mcg 50 mcg, intravenous, | | 18 11:00 | | | | | POSTPROCEDURE PRN, 4 doses, | | AM PDT | | | | | Starting [facility] 03/04/18 at 0848, | | | | | | | Until [facility] 03/04/18 at 1156, severe | | | | | | | pain while in Phase I Recovery | | | | | | + +-------+ +--------+---+---+ +---+---+ | | | +---+---+ + +---------+ + + +---+ | lactated Ringers IV 10 mL/hr, | New Bag | 03/03/20 | 10 mL/hr | 10 mL/hr | | | intravenous, PROCEDURE | | 18 10:50 | | | | | CONTINUOUS, Starting Wed 18 | | AM PDT | | | | | at 0945, Until Thu03/03/18 at 1221 | | | | | | + +---------+ + + +---+ +---+---+ | | | +---+---+ + + + +---+---+---+ | lactated Ringers IV 75 mL/hr, | given by | 03/04/20 | | | | | intravenous, CONTINUOUS, Starting | | 18 10:30 | | | | | Thu03/03/18 at 1245, Until Zoya | anesthes | AM PDT | | | | | 03/04/18 at 2218 | iology | | | | | + + + +---+---+---+ + + + + +---+ | New Bag | 03/04/20 | | | | | | 18 8:16 | | | | | | AM PDT | | | | + + + + +---+ | Rate/Dose Verify | 03/04/20 | 75 mL/hr | 75 mL/hr | | | | 18 4:04 | | | | | | AM PDT | | | | + + + + +---+ +---+---+ | | | +---+---+ + +-------+ +------+---+ + | lidocaine-EPINEPHrine | Given | 03/04/20 | 5 mL | | Surgical | | (XYLOCAINE WITH EPINEPHRINE) 1 | | 18 8:56 | | | Site | | %-1:100,000 injection | | AM PDT | | | | | INTRAPROCEDURE PRN, Starting Zoya | | | | | | | 03/04/18 at 0856, Until Zoya 03/04/18 | | | | | | | at 1043 | | | | | | + +-------+ +------+---+ + +---+---+ | | | +---+---+ + +-------+ +--------+---+---+ | mycophenolate (CELLCEPT) | Given | 03/04/20 | 500 mg | | | | capsule 500 mg 500 mg, oral, | | 18 12:16 | | | | | TWICE DAILY WITH MEALS (MMF), | | PM PDT | | | | | First dose on Thu03/03/18 at 1800, | | | | | | | Until Discontinued | | | | | | + +-------+ +--------+---+---+ +-------+ +--------+---+---+ | Given | 03/03/20 | 500 mg | | | | | 18 7:17 | | | | | | PM PDT | | | | +-------+ +--------+---+---+ + +---+ | | | + +---+ | ondansetron ODT (ZOFRAN ODT) | | | tablet 8 mg 8 mg, oral, EVERY 12 | | | HOURS NEEDED, Starting Thu | | | 03/03/18 at 1215, Until Zoya 03/04/18 | | | at 2218, nausea/vomiting, first | | | line | | + +---+ | | | + +---+ + +-------+ +------+---+---+ | oxyCODONE (immediate release) | Given | 03/04/20 | 5 mg | | | | (ROXICODONE) tablet 2.5-5 mg | | 18 6:35 | | | | | 2.5-5 mg, oral, EVERY 4 HOURS | | AM PDT | | | | | NEEDED, Starting 03/03/18 at | | | | | | | 1215, Until Zoya 03/04/18 at 1157, | | | | | | | severe pain | | | | | | + +-------+ +------+---+---+ +-------+ +------+---+---+ | Given | 03/04/20 | 5 mg | | | | | 18 2:12 | | | | | | AM PDT | | | | +-------+ +------+---+---+ | Given | 03/03/20 | 5 mg | | | | | 18 4:22 | | | | | | PM PDT | | | | +-------+ +------+---+---+ +---+---+ | | | +---+---+ + +-------+ +------+---+---+ | oxyCODONE (immediate release) | Given | 03/04/20 | 5 mg | | | | (ROXICODONE) tablet 5-15 mg 5-15 | | 18 12:17 | | | | | mg, oral, EVERY 3 HOURS | | PM PDT | | | | | NEEDED, Starting Zoya 03/04/18 at | | | | | | | 1157, Until Thu03/04/18 at 2218, | | | | | | | severe pain | | | | | | + +-------+ +------+---+---+ + +---+ | | | + +---+ | prochlorperazine (COMPAZINE) | | | injection 2.5-5 mg 2.5-5 mg, | | | intravenous, EVERY 6 HOURS | | | NEEDED, Starting 03/03/18 at | | | 1216, Until Thu03/04/18 at 2218, | | | nausea/vomiting, second line | | + +---+ | | | + +---+ + +-------+ +------+---+---+ | sirolimus (RAPAMUNE) tablet 2 | Given | 03/04/20 | 2 mg | | | | mg 2 mg, oral, DAILY, First dose | | 18 12:16 | | | | | on Thu03/03/18 at 1800, Until | | PM PDT | | | | | Discontinued | | | | | | + +-------+ +------+---+---+ +-------+ +------+---+---+ | Given | 03/03/20 | 2 mg | | | | | 18 7:16 | | | | | | PM PDT | | | | +-------+ +------+---+---+ +---+---+ | | | +---+---+ documented in this encounter
--- OUTSIDE RECORDS SUMMARY | ~2019-05-14 | XMS | Encounter Summary ---
Demographics + + + | Address | [address] | | | [place] [address] | + + + | Home Phone | | + + + | Preferred Language | Unknown | + + + | Marital Status | Single | + + + | Gnosticism Affiliation | BAP | + + + | Race | White | + + + | Ethnic Group | Not or | + + + Author + + + | Author | [facility] | + + + | Organization | [facility] | [...] Team Providers + +------+ + | Care Business Operations Coordinator Name | Role | Phone | + +------+ + | Ritesh England PA-C | PCP | | + +------+ + Encounter Details +--------+ + + + + | Date | Type | Department | Care Team | Description | +--------+ + + + + | 11/25/ | Abstract | Transplant | Dayron Donato MD | | | 2018 | | [facility] [address] | [address] | | | | | [address] | [address] [place], | | | | | [address] [place], [place] | [place] [address] | | | | | [address] | [phone] | | | | | [phone] | | | +--------+ + + + [...] | | | | | [address] [place], | | | | | | [place] [address] | | | | | | [phone] | | | | | | | | +--------+---------+ + + + documented as of this encounter Procedures + +--------+ + + + | Procedure Name | Priori | Date/Time | Associated Diagnosis | Comments | | | ty | | | | + +--------+ + + + | CBC, WITH | Routin | 11/23/2017 | | Results for this | | DIFFERENTIAL | e | 7:44 AM | | procedure are in the | | | | PDT | | results section. | + +--------+ + + + documented in this encounter Results CBC, WITH DIFFERENTIAL (11/23/2017 7:44 AM PDT) + +-------+ + + + [...] +-------+ + + + | HEMOGLOBIN | 14.0 | 13.5 - 17.5 | [facility] | | | | | g/dL | LAB - | | | | | | OLVIN | | + +-------+ + + + | HEMATOCRIT | 42.4 | % | [facility] | | | | | | LAB - | | | | | | OLVIN | | + +-------+ + + + | PLATELET | 304 | K/cu mm | [facility] | | | COUNT | | | LAB - | | | | | | OLVIN | | + +-------+ + + + | IRON SERUM | 56.18 | ug/dL | [facility] | | | | | | LAB - | | | | | | OLVIN | | + +-------+ + + + | SIROLIMUS, | <2.0 | ng/mL | [facility] | | | [...] | + + + + + | [facility] - | [address] | [place] | [phone] | | OLVIN | | | | + + + + + documented in this encounter Visit Diagnoses Not on filedocumented in this encounter"
--- OUTSIDE RECORDS SUMMARY | ~2019-05-14 | XMS | Encounter Summary ---
Demographics + + + | Address | [address] | | | [place] [address] | + + + | Home Phone [...] + | Author | [facility] | + + + | Organization | [facility] | + + + [...] Team Providers + +------+ + | Care Network Engineer Administrator Name | Role | Phone | + +------+ + | Ritesh England PA-C | PCP | | + +------+ + Reason for Visit +--------+ + | Reason | Comments | +--------+ + | Preop | | +--------+ + Encounter Details +--------+---------+ + + + | Date | Type | Department | Care Team | Description | +--------+---------+ + + + | 04/21/ | Office | Otolaryngology | Shlomo Roach MD | Malignant neoplasm | | 2017 | Visit | Head and Neck | [address] | of parotid gland | | | | Surgery Services at | [facility], | (HCC) (Primary Dx) | | | | [facility] [address] [facility] | [place] [address] | | | | | [facility] | [phone] | | | | | Mailcode: [address] | | | | | | [facility] | | | | | | [place], [place] | | | | | | [address] | | | | | | [phone] | | | +--------+---------+ + + + [...] + + + | Blood Pressure | 138/100 | 04/21/2017 12:41 PM | | | | | PDT | | + + + + + | Pulse | 80 | 04/21/2017 12:41 PM | | | | | PDT [...] Weight | 69.9 kg (154 lb) | 04/21/2017 12:41 PM | | | | | PDT | | + + + + + | Height | - | - | | + + + + + | Body Mass Index | 23.76 | 04/21/2017 11:27 AM | | | | | PDT | | + + + + + documented in this encounter Progress Notes Shlomo Roach MD - 04/21/2017 5:36 PM PDTClinic Date:04/21/2017 This gentleman has had an issue with his facial lesions. He has 3 of them. We are going t o excise them, reconstruct them with a bilobed rhomboid flaps. I think we will use 3 separa te little facial flaps. The results were documented. I went over the findings with him, ex plained the risks and morbidities of the excisions, the pathology, and the reconstructions. He understands this, and we are going to go ahead and proceed with his surgery. MD TELLY Delgadillo/SABRA /[id number] signed by Shlomo Roach MD at 04/22/2017 12:48 PM PDTWaShlomo pizano MD - 04/21/2017 3:00 PM PDTDictation #1 [id number] signed by Shlomo Roach MD at 04/21/2017 5:24 PM PDTdocumented in this en counter Plan of Treatment +--------+---------+ + + + | Date | Type | Specialty | Care Team | Description | +--------+---------+ + + + | 06/17/ | Office | Otolaryngology | Shlomo Roach MD | | | 2019 | Visit | | [address] | | | | | | [place], | | | | | | [place] [address] | | | | | | [phone] | | | | | | | | +--------+---------+ + + + documented as of this encounter Visit Diagnoses + + | Diagnosis | + + | 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
--- OUTSIDE RECORDS SUMMARY | ~2019-05-14 | XMS | Encounter Summary ---
Demographics + + + | Address | [address] | | | [place] [address] | + + + | Home Phone [...] + + | Author | [facility] | + + + | Organization | [facility] | [...] Team Providers + +------+ + | Care Car Wash Supervisor Name | Role | Phone | + +------+ + | No Pcp Per Patient | PCP | Unavailable | + +------+ + Reason for Visit + + + | Reason | Comments | + + + | Dry eye | | + + + | Vision disorder | | + + + Benefits Check (Routine) +--------+--------+ + + + + | Status | Reason | Specialty | Diagnoses / | Referred By | Referred To | | | | | Procedures | Contact | Contact | +--------+--------+ + + + + | Closed | | Otolaryngolog | | Scott Delcid, | Shlomo Roach, | | | | y | | MD [address] | MD [address] | | | | | | [address] | [address] | | | | | | [place], [place] | [place] | | | | | | [address] | [place], [place] | | | | | | | [address] | | | | | | | Phone: | | | | | | | [phone] | | | | | | | Fax: | | | | | | | [phone] | +--------+--------+ + + + + Encounter Details +--------+---------+ + + + | Date | Type | Department | Care Team | Description | +--------+---------+ + + + | 06/16/ | Office | Otolaryngology | Shlomo Roach MD | Dryness, Eye; | | 2005 | Visit | Head and Neck | [address] | Malignant Neoplasm | | | | Surgery Services at | [facility], | of Cheek ([facility]); | | | | [facility] [address] [facility] | [place] [address] | Vision Blurred; | | | | [facility] | [phone] | Mechanical Ptosis | | | | Mailcode: [address] | | | | | | [facility] | | | | | | [place], [place] | | | | | | [address] | | | | | | [phone] | | | +--------+---------+ + + + [...] of this encounter Patient Instructions Patient Instructions 01/16/2006 3:00 PM PDT Our truck crane operator will contact youValentina lynch signed by Rose Greenfield at 01/16/2006 3:38 PM PDT documented in this encounter Rose Quintero - 01/16/2006 3:47 PM PDTMr Michaels has been recovering very well No problems with abdomen His complaint is that R eye is dry, irritated, and he has recent visual changes, blurriness , and occasional double vision. Also, flap is a bit too full, and he would like revision. On exam, he has complete eye closure at 5-6 seconds; skin of eyelid is thin and gold weight is visible but not exposed; conjunctiva somewhat injected; eye is "glassy" with some epipho ra; feels better with lifting the lateral canthus; vision improves with manually lifting his heavy brow Flap is well healed, quite bulky I think the best course of action is to perform tarsal strip procedure to decrease tearing. We will also obtain an ophthalmologic exam since his vision is decreased, and visual field s to determine if he would benefit from therapeutic brow lift procedure. At the time of the tarsal strip operation, we can also debulk the flap. Our truck crane operator will contact him. 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
--- OUTSIDE RECORDS SUMMARY | ~2019-05-14 | XMS | Encounter Summary ---
Demographics + + + | Address | [address] | | | [place] [address] | + + + | Home Phone [...] Author | [facility] [employer] [facility] | + + + | Organization | [facility] | + + + [...] Team Providers + +------+ + | Care Production Sampler Name | Role | Phone | + +------+ + | Ritesh England PA-C | PCP | | + +------+ + Encounter Details +--------+ + + + + | Date | Type | Department | Care Team | Description | +--------+ + + + + | 11/17/ | Hospital | Diagnostic | Dayron Donato MD | | | 2018 | Encounter | Radiology at [facility] | [address] | | | | | [address] | [address] [place], | | | | | [place] Mailcode: | [place] [address] | | | | | [address] [facility] | [phone] | | | | | [place], | | | | | | [place] [address] | | | | | | [phone] | | | +--------+ + + + [...] | | | | | [address] [place], | | | | | | [place] [address] | | | | | | [phone] | | | | | | | | +--------+---------+ + + + documented as of this encounter Procedures + +--------+ + + + | Procedure Name | Priori | Date/Time | Associated Diagnosis | Comments | | | ty | | | | + +--------+ + + + | US ABDOMEN COMP W/ | Routin | 11/17/2017 | Liver replaced by | Results for this | | DOPPLER | e | 11:39 AM | transplant (HCC) | procedure are in the | | | | PDT | | results section. | + +--------+ + + + documented in this encounter Results US ABDOMEN COMP W/ DOPPLER (11/17/2017 11:39 AM PDT) + + | Specimen | + + | | + + + + + | Narrative | Performed At | + + + | EXAM: US LIVER DOPPLER WITH COMPLETE ABDOMEN. HISTORY: Liver | [facility] | | transplant recipient. Abdominal neoplasm. COMPARISON: CT | RADIOLOGY VOICE | | 10/09/2015. TECHNIQUE: Real-time grayscale and Doppler abdominal | RECOGNITION | | ultrasound performed. Duplex Doppler with spectral analysis and color | | | flow was performed of the hepatic vasculature. FINDINGS: | | | Liver: The echotexture is homogeneous. No focal lesion. No ascites is | | | present. Biliary: The gallbladder is surgically absent. No biliary | | | dilatation. The common duct measures 6 mm in diameter. Hepatic | | | Vasculature: Main Portal Vein: Patent Diameter: 11 mm. Flow | | | direction: Antegrade. PSV: 18 cm/sec. Left Portal Vein: Patent | | | Flow direction: Antegrade. PSV: 19 cm/sec. Right Portal | | | Vein: Patent Flow direction: Antegrade. PSV: 34 cm/sec. | | | Splenic Vein: Antegrade. Hepatic Veins: Right Hepatic Vein: | | | Patent with antegrade flow. Middle Hepatic Vein: Patent with | | | antegrade flow. Left Hepatic Vein: Patent with antegrade flow. | | | IVC: Patent. Hepatic Artery: Normal arterial waveforms are | | | observed in the common, right and left hepatic arteries. Common | | | hepatic artery: PSV: 43 cm/sec. SAT: 29 ms. RI: 0.7 Right hepatic | | | artery: PSV: 50 cm/sec. SAT: 37 ms. RI: 0.6 Left hepatic artery: | | | PSV: 46 cm/sec. SAT: 59 ms. RI: 0.7 Pancreas: Overlying | | | bowel gas partially obscures the pancreas. The visualized head and | | | body are unremarkable. Kidneys: The right kidney measures 10.4 | | | cm in length. The left measures 11.5 cm in length. Renal | | | parenchymal echogenicity is normal. Within the interpolar left kidney, | | | 17 x 20 x 23 mm cystic lesion with enhancing septation. No definite | | | enhancing solid component; this previously measured 21 x 18 x 20 mm on | | | 10/09/2015. No suspicious stone or hydronephrosis is seen. | | | Spleen: The spleen is normal in echogenicity and measures 8.6 cm in | | | length. Other: The visualized IVC is within normal limits. The | | | abdominal aorta measures up to 34 x 30 mm with atherosclerotic plaque. | | | IMPRESSION: 1. 23 mm interpolar left renal cystic lesion with | | | enhancing septation, unchanged in size compared with 10/09/15. | | | Recommend multiphase CT or MR renal mass protocol for additional | | | characterization. 2. Unremarkable hepatic spectral Doppler. | | | Discussed with Dr. Donato at 1345 on 11/17/[address] Jimenez. 3. | | | Abdominal aorta measures up to 34 mm. I have personally | | | reviewed the images and, if necessary, edited the report. I agree | | | with the report as now presented. | | + + + + + | Procedure Note | + + | Service Account, [employer] - 11/17/2017 2:01 PM PDT EXAM: US LIVER | | DOPPLER WITH COMPLETE ABDOMEN.HISTORY: Liver transplant recipient. Abdominal neoplasm. | | COMPARISON: CT 10/09/2015.TECHNIQUE: Real-time grayscale and Doppler abdominal ultrasound | | performed. Duplex Doppler with spectral analysis and color flow was performed of the | | hepatic vasculature.FINDINGS: Liver: The echotexture is homogeneous. No focal lesion. | | No ascites is present.Biliary: The gallbladder is surgically absent. No biliary | | dilatation. The common duct measures 6 mm in diameter.Hepatic Vasculature:Main Portal | | Vein: PatentDiameter: 11 mm.Flow direction: Antegrade.PSV: 18 cm/sec.Left Portal Vein: | | PatentFlow direction: Antegrade.PSV: 19 cm/sec.Right Portal Vein: PatentFlow direction: | | Antegrade.PSV: 34 cm/sec.Splenic Vein: Antegrade.Hepatic Veins: Right Hepatic Vein: | | Patent with antegrade flow.Middle Hepatic Vein: Patent with antegrade flow.Left Hepatic | | Vein: Patent with antegrade flow.IVC: Patent.Hepatic Artery: Normal arterial waveforms | | are observed in the common, right and left hepatic arteries.Common hepatic artery: PSV: | | 43 cm/sec.SAT: 29 ms.RI: 0.7Right hepatic artery: PSV: 50 cm/sec.SAT: 37 ms.RI: | | 0.6Left hepatic artery: PSV: 46 cm/sec.SAT: 59 ms.RI: 0.7Pancreas: Overlying bowel gas | | partially obscures the pancreas. The visualized head and body are unremarkable. | | Kidneys: The right kidney measures 10.4 cm in length. The left measures 11.5 cm in | | length. Renal parenchymal echogenicity is normal. Within the interpolar left kidney, 17 | | x 20 x 23 mm cystic lesion with enhancing septation. No definite enhancing solid | | component; this previously measured 21 x 18 x 20 mm on 10/09/2015. No suspicious stone or | | hydronephrosis is seen. Spleen: The spleen is normal in echogenicity and measures 8.6 | | cm in length.Other: The visualized IVC is within normal limits. The abdominal aorta | | measures up to 34 x 30 mm with atherosclerotic plaque.IMPRESSION:1. 23 mm interpolar | | left renal cystic lesion with enhancing septation, unchanged in size compared with | | 10/09/15. Recommend multiphase CT or MR renal mass protocol for additional | | characterization.2. Unremarkable hepatic spectral Doppler.Discussed with Dr. Donato at | | 1345 on 11/17/[address] Jimenez.3. Abdominal aorta measures up to 34 mm.I have | | personally reviewed the images and, if necessary, edited the report. I agree with the | | report as now presented. | |Hepatic Veins: | |Right Hepatic Vein: Patent with antegrade flow. | |Middle Hepatic Vein: Patent with antegrade flow. | |Left Hepatic Vein: Patent with antegrade flow. | | | |IVC: Patent. | | | |Hepatic Artery: Normal arterial waveforms are observed in the common, right and left hepati c arteries. | |Common hepatic artery: PSV: 43 cm/sec.SAT: 29 ms.RI: 0.7 | |Right hepatic artery: PSV: 50 cm/sec.SAT: 37 ms.RI: 0.6 | |Left hepatic artery: PSV: 46 cm/sec.SAT: 59 ms.RI: 0.7 | | | | | |Pancreas: Overlying bowel gas partially obscures the pancreas. The visualized head and bod y are unremarkable. | | | |Kidneys: The right kidney measures 10.4 cm in length. The left measures 11.5 cm in length. Renal parenchymal echogenicity is normal. Within the interpolar left kidney, 17 x 20 x 23 mm cystic lesion with enhancing | |septation. No definite enhancing solid component; this previously measured 21 x 18 x 20 mm on 10/09/2015. No suspicious stone or hydronephrosis is seen. | | | |Spleen: The spleen is normal in echogenicity and measures 8.6 cm in length. | | | |Other: The visualized IVC is within normal limits. The abdominal aorta measures up to 34 x 30 mm with atherosclerotic plaque. | | | |IMPRESSION: | | | |1. 23 mm interpolar left renal cystic lesion with enhancing septation, unchanged in size co mpared with 10/09/15. Recommend multiphase CT or MR renal mass protocol for additional charact erization. | | | |2. Unremarkable hepatic spectral Doppler. | | | |Discussed with Dr. Donato at 1345 on 11/17/[address] Jimenez. | | | |3. Abdominal aorta measures up to 34 mm. | | | | | |I have personally reviewed the images and, if necessary, edited the report. I agree with t he report as now presented. | + + + +---------+ + + | Performing | Address | City/State/Zipcode | Phone Number | | Organization | | | | + +---------+ + + | [facility] | | | | | VOICE RECOGNITION | | | | + +---------+ + + documented in this encounter Visit Diagnoses + + | Diagnosis | + + | Liver replaced by transplant (HCC) Liver replaced by transplant | + + documented in this encounter"
--- OUTSIDE RECORDS SUMMARY | ~2019-05-14 | XMS | Encounter Summary ---
Demographics + + + | Address | [address] | | | [place] [address] | + + + | Home Phone [...] | Author | [facility] | + + + | Organization | [facility] | + + + | [...] Team Providers + +------+ + | Care Administrative Analyst Name | Role | Phone | + +------+ + | Ritesh England PA-C | PCP | | + +------+ + Reason for Visit + + + | Reason | Comments | + + + | Liver Transplant | HCV labs and U/S | | Follow Up | | + + + Encounter Details +--------+ + + + + | Date | Type | Department | Care Team | Description | +--------+ + + + + | 11/13/ | Payable Processor | Transplant | Yvette Perkins RN | Liver replaced by | | 2017 | | [address] | transplant (HCC) | | | | [address] | [address], | (Primary Dx) | | | | [place], [place] | [place] [address] | | | | | [address] | | | | | | [phone] | | | +--------+ + + + [...] | | | | | Angel[place], | | | | | | [place] [address] | | | | | | [phone] | | | | | | | | +--------+---------+ + + + documented as of this encounter Results US ABDOMEN COMP W/ [...] Note | + + | Service Account, Garrick ChromaDex In Interface - 11/17/2017 2:01 PM PDT [...] | | 1345 on 11/17/[address] [email or web address]. Abdominal aorta measures up to 34 mm.I [...] | | | + +---------+ + + HEPATITIS C GENOTYPING, PLASMA (11/17/2017 9:47 AM PDT) + + + + + + | Component | Value | Ref Range | Performed | Pathologist | | | | | At | Signature | + + + + + + | HEP C | Indeterminate | Undetected, | [facility] | | | GENOTYPE | | Indeterminate | DIAGNOSTIC | | | | | | | | | | | | LABORATORIE | | | | | | S | | + + + + + + + + | Specimen | + + | Blood - Blood | | (substance) | + + + + + | Narrative | Performed At | + + + | We were unable to definitively determine the genotype of the | [facility] | | hepatitis C virus species present in the patient. We will be sending | DIAGNOSTIC | | the remainder of the sample to an outside referral lab for definitive | LABORATORIES | | DNA sequence analysis to determine the genotype. If you have any | | | questions regarding this assay please call the lab at . | | | This test was developed and its performance characteristics | | | determined by the [facility]. It has not been | | | cleared or approved by the Food and Drug Administration. FDA | | | approval is not required for clinical use of this test, and therefore | | | validation was done as required under the requirements of the Clinical | | | Laboratory Improvement Act of 1988. The [facility] | | | Laboratory is a fully licensed and/or accredited clinical laboratory | | | under CLIA, CAP, and the [facility]. | | + + + + + + + + | Performing | Address | City/State/Zipcode | Phone Number | | Organization | | | | + + + + + | [facility] | [address] | [place] [address] | | | DIAGNOSTIC | [address] | | | | LABORATORIES | | | | + + + + + documented in this encounter Visit Diagnoses + + | Diagnosis | + + | Liver replaced by transplant (HCC) - Primary Liver replaced by transplant | + + documented in this encounter"
--- OUTSIDE RECORDS SUMMARY | ~2019-05-14 | XMS | Encounter Summary ---
Demographics + + + | Address | [address] | | | [place] [address] | + + + | Home Phone [...] Author | [facility] [email or web address] [facility] | + + + | Organization | [facility] | + + + | Address | [...] Team Providers + +------+ + | Care Geotechnical Operating Engineer Name | Role | Phone | + +------+ + | Sylvester Scherer DO | PCP | | + +------+ + Encounter Details +--------+ + + + + | Date | Type | Department | Care Team | Description | +--------+ + + + + | 06/27/ | Assistant Finance Manager | Liver Transplant | Valente Welch | Liver replaced by | | 2014 | | at [facility] [address] | [place] [address] | transplant (HCC) | | | | [address] | [address] | (Primary Dx) | | | | Mailcode: [address] | [place] [address] | | | | | [facility] | [phone] | | | | | [address] [place], [place] | | | | | | [address] | | | | | | [phone] | | | +--------+ + + + [...] | | | | | [address] [place], | | | | | | [place] [address] | | | | | | [phone] | | | | | | | | +--------+---------+ + + + documented as of this encounter Procedures + +--------+ + + + | Procedure Name | Priori | Date/Time | Associated Diagnosis | Comments | | | ty | | | | + +--------+ + + + | TRANSPLANT EXTERNAL | Routin | 12/01/2016 | Liver replaced by | | | LAB ORDERS | e | | transplant (HCC) | | + +--------+ + + + documented in this encounter Results TRANSPLANT EXTERNAL LAB ORDERS (12/01/2016) + + + | Narrative | Performed [...]
--- OUTSIDE RECORDS SUMMARY | ~2019-05-14 | XMS | Encounter Summary ---
Demographics + + + | Address | [address] | | | [place] [address] | + + + | Home Phone [...] + + | Author | [email or web address] | + + + | Organization | [facility] | + + [...] Team Providers + +------+ + | Care Territory Sales Executive Name | Role | Phone | + +------+ + | Sylvester Scherer DO | PCP | | + +------+ + Encounter Details +--------+ + + + + | Date | Type | Department | Care Team | Description | +--------+ + + + + | 07/13/ | Documentati | Transplant | Sabrina Guzman, | | | 2014 | on | [address] | [place] [address] | | | | | [address] | [address] | | | | | [address] [place], [place] | [place], [place] | | | | | [address] | [address] | | | | | [phone] | | | +--------+ + + + [...] | | | | | [address] [place], | | | | | | [place] [address] | | | | | | [phone] | | | | | | | | +--------+---------+ + + + documented as of this encounter Visit Diagnoses Not on filedocumented in this encounter"
--- OUTSIDE RECORDS SUMMARY | ~2019-05-14 | XMS | Encounter Summary ---
Demographics + + + | Address | [address] | | | [place] [address] | + + + | Home Phone | | + + + | Preferred Language | Unknown | + + + | Marital Status | Single | + + + | Adventism Affiliation | BAP | + + + | Race | White | + + + | Ethnic Group | Not or | + + + Author + + + | Author | [facility] | + + + | Organization | [facility] [employer] [facility] | [...] Team Providers + +------+ + | Care Silverlight Developer Name | Role | Phone | + +------+ + | Sylvester Scherer DO | PCP | | + +------+ + Reason for Visit + + + | Reason | Comments | + + + | Abdominal pain | | + + + Encounter Details +--------+ + + + + | Date | Type | Department | Care Team | Description | +--------+ + + + + | 01/12/ | Emergency | [facility] Emergency | | | | 2014 | | Department [address] | | | | | | [address] | | | | | | [facility] | | | | | | [place], [place] | | | | | | [address] | | | | | | [phone] | | | +--------+ + + + [...] | | | | | [address], | | | | | | [place] [address] | | | | | | [phone] | | | | | | | | +--------+---------+ + + + documented as of this encounter Visit Diagnoses Not on filedocumented in this encounter"
--- OUTSIDE RECORDS SUMMARY | ~2019-05-14 | XMS | Encounter Summary ---
Demographics + + + | Address | [address] | | | [place] [address] | + + + | Home Phone [...] Author + + + | Author | [facility] | + + + | Organization | [facility] | + + [...] Team Providers + +------+ + | Care Dwarf Tree Grower Name | Role | Phone | + [...] Description | +--------+--------+ + + + | 12/15/ | Refill | Transplant | Yvette Perkins RN | Refill Request | | 2018 | | [address] | | | | | [address] | [address] [place], | | | | | [address] [place], [place] | [place] [address] | | | | | [address] | | | | | | [phone] | | | +--------+--------+ + + + [...] | | | | | Angel[place] [address] [place], | | | | | | [place] [address] | | | | | | [phone] | | | | | | | | +--------+---------+ + + + documented as of this encounter Visit Diagnoses Not on filedocumented in this encounter"
--- OUTSIDE RECORDS SUMMARY | ~2019-05-14 | XMS | Encounter Summary ---
Demographics + + + | Address | [address] | | | [place] [address] | + + + | Home Phone [...] + + | Author | [facility] | + + + | Organization | [facility] | [...] Team Providers + +------+ + | Care Ammunition Storekeeper Name | Role | Phone | + +------+ + | Ritesh England PA-C | PCP | | + +------+ + Encounter Details +--------+---------+ + + + | Date | Type | Department | Care Team | Description | +--------+---------+ + + + | 03/02/ | Office | Otolaryngology | Shlomo Roach MD | Squamous cell | | 2018 | Visit | Head and Neck | [address] | carcinoma of skin of | | | | Surgery Services at | [place], | ear, unspecified | | | | [facility] [address] [facility] | [place] [address] | laterality (Primary | | | | [address] | [phone] | Dx) | | | | Mailcode: PV01 | | | | | | [facility] | | | | | | [place], [place] | | | | | | [address] | | | | | | [phone] | | | +--------+---------+ + + + [...] + + + | Blood Pressure | 163/99 | 03/02/2018 2:45 PM | | | | | PDT | | + + + + + | Pulse | 93 | 03/02/2018 2:45 PM | | | | | PDT [...] + + + + | Weight | 59.1 kg (130 lb 3.2 | 03/02/2018 2:45 PM | | | | oz) | PDT | | + + + + + | Height | - | - | | + + + + + | Body Mass Index | 19.8 | 02/16/2018 3:38 PM | | | [...] encounter Progress Notes Shlomo Roach MD - 03/02/2018 2:00 PM PDTNot seenElectronically signed by Shlomo Roach MD at 10/2017 11:45 AM PDTdocumented in this encounter Plan of Treatment +--------+---------+ + + + | Date | Type | Specialty | Care Team | Description | +--------+---------+ + + + | 06/17/ | Office | Otolaryngology | Shlomo Roach MD | | | 2018 | Visit | | [address] | | | | | | [place], | | | | | | [place] [address] | | | | | | [phone] | | | | | | | | +--------+---------+ + + + documented as of this encounter Visit Diagnoses + + | Diagnosis | + + | Squamous cell carcinoma of skin of ear, unspecified laterality - Primary | + + documented in this encounter"
--- OUTSIDE RECORDS SUMMARY | ~2019-05-14 | XMS | Encounter Summary ---
Demographics + + + | Address | [address] | | | [place] [address] | + + + | Home Phone [...] + + | Author | [facility] | + + + | Organization | [facility] | + + + | Address [...] + +------+ + | Care Big Data Analytics Lead Name | Role | Phone | + [...] + + + + | 05/04/ | Anesthesia | 6A Intra Op [facility] | Sierra Alston MD | | | 2019 | Event | [facility] | [address] | | | | | Admitting Desk | [place], | | | | | Located on the | [place] [address] | | | | | floor [address] [facility] | [phone] | | | | | [address] | | | | | | [facility] [place] | [place], | | | | | [address] | CONSULTING TECHNICAL DIRECTOR [address] | | | | | | [address] | | | | | | [place], [place] | | | | | | [address] | | | | | | [phone] | | | | | | | | +--------+ + + + + Anesthesia Record + + + + + | Procedure Name | Responsible | Anesthesia Start | Anesthesia Stop Time | | | Anesthesiologist | Time | | + + + + + | LEFT PAROTIDECTOMY, | Sierra Alston MD | 05/04/19 1301 | 05/04/19 5683 | | LEFT SIDED | | | | | SIALOENDOSCOPY, WIDE | | | | | LOCAL EXCISION NECK | | | | | LESION WITH LOCAL | | | | | FLAP (Left Neck) | | | | + + + + + +----+---+ + + | Da | T | Event | Comment | | te | i | | | | | m | | | | | e | | | +----+---+ + + | 10 | 1 | | | | /0 | 2 | | | | 2/ | 3 | | | | 20 | 8 | | | | 19 | | | | +----+---+ + + | | 1 | Pt. Check | Prior to anesthesia start, pt. Identified, examined, chart | | | 2 | | reviewed, PARQ held, anesthetic plan made or approved by | | | 3 | | attending anesthesiologist. NPO status confirmed as appropriate | | | 8 | | for procedure Preoperative evaluation: unchanged | +----+---+ + + | | 1 | Eq Check | Anesthesia machine checked Equipment verified | | | 2 | | | | | 5 | | | | | 8 | | | +----+---+ + + | | 1 | An Start | | | | 3 | | | | | 0 | | | | | 1 | | | +----+---+ + + | | 1 | An Start | | | | 3 | Data | | | | 0 | | | | | 4 | | | +----+---+ + + | | 1 | Vitals | Monitors applied Vital signs checked Patient ready for anesthesia | | | 3 | Checked | | | | 0 | | | | | 5 | | | +----+---+ + + | | 1 | Ready | | | | 3 | | | | | 1 | | | | | 8 | | | +----+---+ + + | | 1 | ETT | | | | 3 | | | | | 1 | | | | | 8 | | | +----+---+ + + | | 1 | Local | | | | 3 | Anesthetic | | | | 5 | by Surgeon | | | | 3 | | | +----+---+ + + | | 1 | Abx | | | | 4 | Administere | | | | 0 | d | | | | 7 | | | +----+---+ + + | | 1 | Incision | | | | 4 | | | | | 1 | | | | | 7 | | | +----+---+ + + | | 1 | Surgery end | | | | 7 | | | | | 2 | | | | | 5 | | | +----+---+ + + | | 1 | Surgery end | | | | 7 | | | | | 3 | | | | | 4 | | | +----+---+ + + | | 1 | Quick Note | Patient has excessive swelling of his tongue. Currently has | | | 7 | | minimal to no cuff leak. Concern for upper airway obstruction. | | | 4 | | Decision made to leave patient intubated until swelling goes | | | 0 | | down. Waiting for ICU bed arrangements. | +----+---+ + + | | 1 | Quick Note | Transport to icu | | | 8 | | | | | 1 | | | | | 6 | | | +----+---+ + + | | 1 | an stop | | | | 8 | data | | | | 1 | | | | | 6 | | | +----+---+ + + | | 1 | OR to | Patient transported to ICU with continuous monitoring, intubated | | | 8 | ICU/Handoff | and ventilated, handoff given to ICU team. | | | 3 | | | | | 3 | | | +----+---+ + + | | 1 | [place] to | Patient transported to ICU with continuous monitoring, intubated | | | 8 | ICU/Handoff | and ventilated, handoff given to ICU team. | | | 3 | | | | | 5 | | | +----+---+ + + | | 1 | Anesthesia | | | | 8 | End | | | | 3 | | | | | 5 | | | +----+---+ + + +------+ | Meds | +------+ + + + | Name | Total | + + + | PHENYLEPHrine | 400 mcg | + + + | glycopyrrolate | 0.2 mg | + + + | lidocaine 2% | 100 mg | + + + | propofol | 250 mg | + + + | succinylcholine | 80 mg | + + + | fentaNYL | 100 mcg | + + + | ePHEDrine | 25 mg | + + + | ceFAZolin | 2,000 mg | + + + | dexamethasone | 11 mg | + + + | HYDROmorphone | 1.4 mg | + + + | ondansetron | 4 mg | + + + | labetalol | 5 mg | + + + | midazolam | 2 mg | + + + | LR | 1,700 mL | + + + + + | Name | + + | O2 FR Avance (Total Liters) | + + | Air FR Avance (l/min) | + + | Insp Sevo | + + | Et Sevo | + + | Insp N2O % | + + + + | No blood administrations on file. | + + +--------+ + + + | Type | Details | Placement | Removal | +--------+ + + + | Periph | 04/27/19; 1428; Roland Gant RN | 04/27/19 1428 by | | | eral | VAT; Left; Anterior; Forearm; 22 | Waqar Gant RN | | | IV | g; None; No; Positive | | | +--------+ + + + | Incisi | 05/04/19; Left; neck | 05/04/19 0000 by | | | on | | Dina Faria RN | | +--------+ + + + | Periph | 05/04/19; 1325; Right; Anterior; | 05/04/19 1325 by | | | eral | Forearm; 18 g; Positive | Shamar Jerome, | | | IV | | CONSULTING TECHNICAL DIRECTOR | | +--------+ + + + | Drain | 05/04/19; 1652; Bernard Cruz | 05/04/19 165 by | | | | Kirk; SARAH; Left; Lateral; neck | Dina Hendricks RN | | +--------+ + + + | Urethr | 05/04/19; Liz Celestin RN; | 05/04/19 0000 by | 05/06/19 1135 by | | carol | Ava; 16 Fr.; 10 mL; 05/06/19; | Liz Celestin RN | Hortensia Price RN | | Cathet | 1135; Per order, Per protocol | | | | er | | | | +--------+ + + + | ETT | 05/04/19; 1318 (created via | 05/04/19 1318 by | 05/05/19 1108 by | | | procedure documentation); 7.5; | Shamar Jerome, | Hortensia Price RN | | | Oral; Cuffed; 05/05/19; 1108; Per | CONSULTING TECHNICAL DIRECTOR | | | | order | | | +--------+ + + + documented in this encounter Social History + + + +--------+ + [...] | | | | | [place] | | | | | | [place] [address] | | | | | | [phone] | | | | | | | | +--------+---------+ + + + documented as of this encounter Procedures + +--------+ + + + | Procedure Name | Priori | Date/Time | Associated Diagnosis | Comments | | | ty | | | | + +--------+ + + + | ANE ETT | Routin | 05/04/2019 | | Results for this | | | e | 1:44 PM | | procedure are in the | | | | PDT | | results section. | + +--------+ + + + documented in this encounter Results ETT (05/04/2019 1:44 PM PDT) + + + | Narrative | Performed At | + + + | Shamar Jerome CRNA 05/04/2019 1:46 PM AIRWAY MANAGEMENT - | | | ETT Time of Placement: 05/04/2019 1:18 PM Intubation Reason: For | | | surgical procedure Positioning: Supine Location Performed:OR | | | OXYGENATION Patient was preoxygenated No apneic oxygenation Grade: | | | Grade 1 - Ventilated by mask Induction:Routine, with Cricoid | | | Pressure INTUBATION ATTEMPT 1 Blade Type: Colette Blade #: | | | 4 Intubation Adjuncts: w/ Stylet Laryngoscopic View: Grade III | | | ETT DETAILS ETT Type:Standard, Hi-Lo Cuffed Intubation Type: Oral | | | Cuff Status: Cuffed Size: 7.5 ETT secured with adhesive tape | | | Depth at Lip: 23 cm CONFIRMATION Number of Attempts: 1 Positive | | | for EtCO2:Waveform capnography NARRATIVE Attending was | | | physically present for the critical portions of the procedure as | | | described in the procedure note Attending/Authorizing Provider: | | | Sierra Alston MD Performing Provider: Shamar Jerome CRNA | | | Procedure Comments: Placed by Conor BERRY | | + + + documented in this encounter Visit Diagnoses Not on filedocumented in this encounter Administered Medications + +--------+ + +------+------+ | Medication Order | MAR | Action | Dose | Rate | Site | | | Action | Date | | | | + +--------+ + +------+------+ | ceFAZolin (ANCEF) injection | Given | 05/04/20 | 2,000 mg | | | | INTRAPROCEDURE PRN, Starting Wed | | 19 2:07 | | | | | 05/04/19 at 1407, Until Wed | | PM PDT | | | | | 05/04/19 at 1835 | | | | | | + +--------+ + +------+------+ +---+---+ | | | +---+---+ + +-------+ +------+---+---+ | dexamethasone (DECADRON) | Given | 05/04/20 | 5 mg | | | | injection INTRAPROCEDURE PRN, | | 19 5:42 | | | | | Starting 05/04/19 at 1423, | | PM PDT | | | | | Until 05/04/19 at 1835 | | | | | | + +-------+ +------+---+---+ +-------+ +------+---+---+ | Given | 05/04/20 | 6 mg | | | | | 19 2:23 | | | | | | PM PDT | | | | +-------+ +------+---+---+ +---+---+ | | | +---+---+ + +-------+ +-------+---+---+ | ePHEDrine injection | Given | 05/04/20 | 10 mg | | | | INTRAPROCEDURE PRN, Starting Wed | | 19 2:35 | | | | | 05/04/19 at 1405, Until Wed | | PM PDT | | | | | 05/04/19 at 1835 | | | | | | + +-------+ +-------+---+---+ +-------+ +-------+---+---+ | Given | 05/04/20 | 5 mg | | | | | 19 2:29 | | | | | | PM PDT | | | | +-------+ +-------+---+---+ | Given | 05/04/20 | 10 mg | | | | | 19 2:05 | | | | | | PM PDT | | | | +-------+ +-------+---+---+ +---+---+ | | | +---+---+ + +-------+ +--------+---+---+ | fentaNYL (SUBLIMAZE) injection | Given | 05/04/20 | 50 mcg | | | | INTRAPROCEDURE PRN, Starting Wed | | 19 6:30 | | | | | 05/04/19 at 1316, Until Wed | | PM PDT | | | | | 05/04/19 at 1835 | | | | | | + +-------+ +--------+---+---+ +-------+ +--------+---+---+ | Given | 05/04/20 | 50 mcg | | | | | 19 1:16 | | | | | | PM PDT | | | | +-------+ +--------+---+---+ +---+---+ | | | +---+---+ + +-------+ +--------+---+---+ | glycopyrrolate (PF) (MAMADOU) | Given | 05/04/20 | 0.2 mg | | | | injection soln INTRAPROCEDURE | | 19 1:28 | | | | | PRN, Starting 05/04/19 at | | PM PDT | | | | | 1328, Until Thu05/04/19 at 1835 | | | | | | + +-------+ +--------+---+---+ +---+---+ | | | +---+---+ + +-------+ +--------+---+---+ | HYDROmorphone (DILAUDID) | Given | 05/04/20 | 0.2 mg | | | | injection INTRAPROCEDURE PRN, | | 19 4:38 | | | | | Starting Thu05/04/19 at 1453, | | PM PDT | | | | | Until Thu05/04/19 at 1835 | | | | | | + +-------+ +--------+---+---+ +-------+ +--------+---+---+ | Given | 05/04/20 | 0.4 mg | | | | | 19 3:26 | | | | | | PM PDT | | | | +-------+ +--------+---+---+ | Given | 05/04/20 | 0.4 mg | | | | | 19 3:05 | | | | | | PM PDT | | | | +-------+ +--------+---+---+ +---+---+ | | | +---+---+ + +-------+ +------+---+---+ | labetalol (TRANDATE) IV | Given | 05/04/20 | 5 mg | | | | injection intravenous, | | 19 5:35 | | | | | INTRAPROCEDURE PRN, Starting Wed | | PM PDT | | | | | 05/04/19 at 1735, Until Wed | | | | | | | 05/04/19 at 1835 | | | | | | + +-------+ +------+---+---+ +---+---+ | | | +---+---+ + + + +---+---+---+ | lactated ringers IV | given by | 05/04/20 | | | | | INTRAPROCEDURE CONTINUOUS PRN, | | 19 5:12 | | | | | Starting 05/04/19 at 1343, | anesthes | PM PDT | | | | | Until Thu05/04/19 at 1835 | iology | | | | | + + + +---+---+---+ + + +---+---+---+ | given by anesthesiology | 05/04/20 | | | | | | 19 2:37 | | | | | | PM PDT | | | | + + +---+---+---+ | New Bag | 05/04/20 | | | | | | 19 1:43 | | | | | | PM PDT | | | | + + +---+---+---+ +---+---+ | | | +---+---+ + +-------+ +--------+---+---+ | lidocaine (XYLOCAINE MPF) 2 % | Given | 05/04/20 | 100 mg | | | | (20 mg/mL) injection | | 19 1:18 | | | | | INTRAPROCEDURE PRN, Starting Wed | | PM PDT | | | | | 05/04/19 at 1318, Until Wed | | | | | | | 05/04/19 at 1835 | | | | | | + +-------+ +--------+---+---+ +---+---+ | | | +---+---+ + +-------+ +------+---+---+ | midazolam (PF) (VERSED) | Given | 05/04/20 | 2 mg | | | | injection INTRAPROCEDURE PRN, | | 19 1:01 | | | | | Starting 05/04/19 at 1301, | | PM PDT | | | | | Until Zoya 05/12/19 at 0939 | | | | | | + +-------+ +------+---+---+ +---+---+ | | | +---+---+ + +-------+ +------+---+---+ | ondansetron (ZOFRAN) injection | Given | 05/04/20 | 4 mg | | | | INTRAPROCEDURE PRN, Starting Wed | | 19 4:39 | | | | | 05/04/19 at 1639, Until Wed | | PM PDT | | | | | 05/04/19 at 1835 | | | | | | + +-------+ +------+---+---+ +---+---+ | | | +---+---+ + +-------+ +---------+---+---+ | PHENYLEPHrine 100 mcg/mL IV | Given | 05/04/20 | 100 mcg | | | | syringe INTRAPROCEDURE PRN, | | 19 1:44 | | | | | Starting 05/04/19 at 1327, | | PM PDT | | | | | Until 05/04/19 at 1835 | | | | | | + +-------+ +---------+---+---+ +-------+ +---------+---+---+ | Given | 05/04/20 | 100 mcg | | | | | 19 1:32 | | | | | | PM PDT | | | | +-------+ +---------+---+---+ | Given | 05/04/20 | 100 mcg | | | | | 19 1:30 | | | | | | PM PDT | | | | +-------+ +---------+---+---+ +---+---+ | | | +---+---+ + +-------+ +-------+---+---+ | propofol (DIPRIVAN) injection | Given | 05/04/20 | 50 mg | | | | INTRAPROCEDURE PRN, Starting Wed | | 19 3:26 | | | | | 05/04/19 at 1318, Until Thu | | PM PDT | | | | | 05/04/19 at 1835 | | | | | | + +-------+ +-------+---+---+ +-------+ +--------+---+---+ | Given | 05/04/20 | 50 mg | | | | | 19 2:53 | | | | | | PM PDT | | | | +-------+ +--------+---+---+ | Given | 05/04/20 | 150 mg | | | | | 19 1:18 | | | | | | PM PDT | | | | +-------+ +--------+---+---+ +---+---+ | | | +---+---+ + +-------+ +-------+---+---+ | succinylcholine (ANECTINE) | Given | 05/04/20 | 80 mg | | | | injection INTRAPROCEDURE PRN, | | 19 1:18 | | | | | Starting Thu05/04/19 at 1318, | | PM PDT | | | | | Until Thu05/04/19 at 1835 | | | | | | + +-------+ +-------+---+---+ +---+---+ | | | +---+---+ documented in this encounter"
--- OUTSIDE RECORDS SUMMARY | ~2019-05-14 | XMS | Encounter Summary ---
Demographics + + + | Address | [address] | | | [place] [address] | + + + | Home Phone [...] [facility] | + + + | Organization | [facility] | + + + [...] Team Providers + +------+ + | Care Chute Greaser Name | Role | Phone | + [...] | Visit | Head and Neck | [address] | carcinoma) of skin | | | | Surgery Services at | [place] [address] | (Primary Dx) | | | | [facility] [address] | [phone] | | | | | [address] | | | | | | Mailcode: [id number] | | | | | | Physician's Keisha | | | | | | [place], [place] | | | | | | [address] | | | | | | [phone] | | | +--------+---------+ + + + [...] Pressure | 148/90 | 05/04/2017 2:04 PM | | | | | PDT | | + + + + + | Pulse | 64 | 05/04/2017 2:04 PM | | | | | PDT [...] kg (154 lb) | 05/04/2017 2:04 PM | | | | | PDT | | + + + + + | Height | - | - | | + + + + + | Body Mass Index | 24.12 | 04/22/2017 6:16 PM | | | | | PDT | | + + + + + documented in this encounter Progress Notes Richard Clemente MD - 05/04/2017 12:45 PM PDTHere for post op f/u after excision of 3 facial ski n Ca and one neck and local flap reconstructions. Doing well. Still suffering from pain so me of which is chronic and had see pain mgt in the past. Reports having run out of pain med icine yesterday and requesting a referral to pain mgt closer to home in [place], [place]. Wish es to drive again. No visual disturbances. No [...] ppt with pain mgt clinic -f/u [id number] documented in this encount er Plan of Treatment +--------+---------+ + + + | Date | Type | Specialty | Care Team | Description | +--------+---------+ + + + | 06/17/ | Office | Otolaryngology | Shlomo Roach MD | | | 2019 | Visit | | [address] | | | | | | [place], | | | | | | [place] [address] | | | | | | [phone] | | | | | | | | +--------+---------+ + + + documented as of this encounter Visit Diagnoses + + | Diagnosis | + + | SCCA (squamous cell carcinoma) of skin - Primary | + + documented in this encounter"
--- OUTSIDE RECORDS SUMMARY | ~2019-05-14 | XMS | Encounter Summary ---
Demographics + + + | Address | [address] | | | [place] [address] | + + + | Home Phone [...] Author + + + | Author | [facility] | + + + | Organization | [facility] | + + + | [...] Providers + +------+ + | Care Senior Project Leader/Team Lead Name | Role | Phone | [...] | +--------+ + + + + | 09/06/ | Telephone-S | Preoperative | | Pre-op evaluation | | 2019 | cheduled | [facility] at | | | | | | [facility] | | | | | | Stay [address] [facility] | | | | | | [facility] | | | | | | Mailcode: [id number] | | | | | | [address] | | | | | | [address] [place], [place] | | | | | | [address] | | | | | | [phone] | | | +--------+ + + + + Anesthesia Record + + + + + | Procedure Name | Responsible | Anesthesia Start | Anesthesia Stop Time | | | Anesthesiologist | Time | | + + + + + | EXCISION OF RIGHT | Roselia Field MD | 09/09/18 1333 | 09/09/18 1516 | | FACIAL LESIONS, | | | | | ROTATION FLAP, | | | | | EXCISION CHEST | | | | | LESION (Right Face) | | | | + + + + + +----+---+ + + | Da | T | Event | Comment | | te | i | | | | | m | | | | | e | | | +----+---+ + + | 02 | 1 | Eq Check | Anesthesia machine checked Equipment verified | | /0 | 2 | | | | 7/ | 5 | | | | 20 | 3 | | | | 19 | | | | +----+---+ + + | | 1 | Pt. Check | Prior to anesthesia start, pt. Identified, examined, chart | | | 3 | | reviewed, PARQ held, anesthetic plan made or approved by | | | 2 | | attending anesthesiologist. NPO status confirmed as appropriate | | | 1 | | for procedure Preoperative evaluation: unchanged | +----+---+ + + | | 1 | An Start | | | | 3 | | | | | 3 | | | | | 3 | | | +----+---+ + + | | 1 | An Start | | | | 3 | Data | | | | 3 | | | | | 6 | | | +----+---+ + + | | 1 | Vitals | Monitors applied Vital signs checked Patient ready for anesthesia | | | 3 | Checked | | | | 3 | | | | | 7 | | | +----+---+ + + | | 1 | ETT | | | | 4 | | | | | 0 | | | | | 2 | | | +----+---+ + + | | 1 | Ready | | | | 4 | | | | | 0 | | | | | 4 | | | +----+---+ + + | | 1 | Local | | | | 4 | Anesthetic | | | | 0 | by Surgeon | | | | 8 | | | +----+---+ + + | | 1 | Abx | | | | 4 | Administere | | | | 1 | d | | | | 5 | | | +----+---+ + + | | 1 | Timeout | | | | 4 | | | | | 2 | | | | | 0 | | | +----+---+ + + | | 1 | Incision | | | | 4 | | | | | 2 | | | | | 3 | | | +----+---+ + + | | 1 | Surgery end | | | | 4 | | | | | 5 | | | | | 0 | | | +----+---+ + + | | 1 | an shlomo now | | | | 4 | | | | | 5 | | | | | 1 | | | +----+---+ + + | | 1 | An Extubate | Neuromuscular function Intact. Pharynx suctioned. Patient obeys | | | 4 | | commands. Adequate pulmonary mechanics. | | | 5 | | | | | 9 | | | +----+---+ + + | | 1 | an stop | | | | 5 | data | | | | 0 | | | | | 1 | | | +----+---+ + + | | 1 | PACU Rpt | | | | 5 | Given | | | | 0 | | | | | 6 | | | +----+---+ + + | | 1 | Anesthesia | | | | 5 | End | | | | 1 | | | | | 6 | | | +----+---+ + + +------+ [...] +--------+ + + + | Periph | 09/07/18; 2205; Left; Forearm; 18 | 09/07/182205 by | 09/11/18 0800 by | | eral | g; None; No; Positive; 09/11/18; | Alivia Bruce, | Yaneth Bose RN | | IV | 0800; Site problems | RN | | +--------+ + + + | Incisi | 09/09/18; Right; Upper; chest; | 09/09/18 0000 by | 05/02/19 0639 by | | on | 05/02/19; 0639 | Inés Bennett RN | Karishma Oleary | | | | | RICHMOND Barrera | +--------+ + + + | Incisi | 09/09/18; Right; face; 05/02/19; | 09/09/18 0000 by | 05/02/19 0639 by | | on | 0639 | Inés Bennett RN | Karishma Oleary | | | | | RICHMOND Barrera | +--------+ + + + | ETT | 09/09/18; 1443 (created via | 09/09/18 1443 by | 09/09/18 145 by | | | procedure documentation); | Maryanne Concepcion, | Maryanne Concepcion, | | | Endotracheal Tube; 7.5; Oral; | MD | MD | | | Cuffed; 09/09/18; 1459 | | | +--------+ + + + [...] of this encounter Patient Instructions Patient Instructions Simin Gillis RN - 09/06/2018 3:39 PM PST PREOPERATIVE INSTRUCTIONS Do not eat or drink anything after midnight the night before surgery. TAKE the following medications with a sip of water on the morning of surgery: MYCOPHENOLATE MOFETIL 250 MG CAPSULE SIROLIMUS 1 MG TABLET PANTOPRAZOLE 20 MG TABLET,DELAYED RELEASE Take the following medication(s) as needed with a small sip of water the morning of your pr ocedure: ACETAMINOPHEN 325 MG TABLET Take the following inhaler as needed the morning of your procedure. Please bring the follow ing inhalers with you: ALBUTEROL SULFATE HFA 90 MCG/ACTUATION AEROSOL INHALER Do NOT take the following medications on the morning of surgery: CALCIUM CARBONATE 200 MG CALCIUM (500 MG) CHEWABLE TAB (MG DOSING UPDATE) CALCIUM CARBONATE 500 MG (1,250 MG)-VITAMIN D3 200 UNIT TABLET FUROSEMIDE 20 MG TABLET MAGNESIUM CITRATE ORAL SOLUTION MULTIVITAMIN WITH MINERALS TABLET POLYETHYLENE GLYCOL 3350 17 GRAM ORAL POWDER PACKET Additional medication instructions: Do not take any Aspirin, vitamin E or non-steroidal anti-inflammatory (NSAIDs i.e. Advil , Aleve, Ibuprofen) or herbal supplements seven days prior to your surgery. These drugs may interfere with normal blood clotting and may cause excessive bleeding and bruising during or after the surgery. Please see the list below for more products that contain Aspirin, Ibupro fen, or Vitamin E If you are taking Coumadin (warfarin), Plavix or any other blood thinners please let you r surgical team know as medication changes will be necessary. If you need a pain medication for general purposes, use Tylenol as directed. If you are in doubt about any medications that you are taking, please contact our office . Important Guidelines: Do not smoke, drink alcohol or use recreational drugs for 24 hours before your surgery Do not eat any hard candy or chew gum after midnight the night before your surgery. Watch for any change in your health condition. Let your surgeon know right away if you do not feel well. Do not wear makeup, perfume, lotions or powder. Remove any nail finnish from at least one fingernail. Do not wear any jewelry to the hospital. Wear loose, comfortable clothing. Bring the case and solution for your contact lenses or wear your glasses. Leave all your valuables at home. Allow enough travel time so you re not late for your check in for surgery. Take a bath or shower and remember to shampoo your hair using your usual hair product be fore your arrival at the hospital. Please remember to brush your teeth the night before and the morning of your procedure. Pain management after surgery Following surgery, at regular intervals, your nurse will ask you to rate your pain on a scale of 0-10 (0 is no pain and 10 is the worst pain you can imagine). A variety of pain management strategies may be appropriate, such as intravenous medicati ons, oral medications, peripheral nerve bocks or epidural catheters that can deliver local a nesthetic to cover the area of your surgical incision. Please discuss this with your anesth esiologist to receive additional information about what might be appropriate for you. The goal for pain control therapy is to be comfortable enough to change your position, c ough and take deep breaths. You will be asked to do such activities to help prevent complic ations. Things to do after surgery (hospitalized patients) Use an incentive spirometer or peep breathe to keep your lungs working properly an d to help prevent respiratory complications. It helps you take long, deep breaths. Use it at least once every hour while you are awake. Leg and feet exercises will maintain good circulation and help prevent blood clots in yo ur legs. Sometimes your doctor will order air compression stockings. Compressed air helps the circulation in your legs. Walking and moving will help stimulate normal circulation and deep breathing. After you r surgery, your nurse may ask you to sit, stand or walk. Check in locations Day Stay Unit - [phone], [facility], fourth floor Room 4519 Surgery Check in Time Check-in times for Hospital Admissions are not available until the day prior to surgery. So meone from your surgeon's office or the hospital will contact you with your check in time. I f you do not hear from anyone by 3:00 PM please call your surgeons' office for [id number] . Going Home Your surgical team will decide when you are medically ready to go home. If you are released to go home on the same day as your procedure/surgery please note the following: You will not be able to drive. You will be required to have a competent adult drive you or accompany you by taxi or pub lic transportation on the day of discharge. It is also required that you have a competent adult assist you and look after you on the first night after you have undergone regional blocks (72 hours for patients going home with regional block pump), deep sedation, and/or general anesthesia. If you have questions or concerns after you go home, call your doctor s office. If it is after office hours, call the [facility] composing machine operator at [phone] and ask them to page your doctor . documented in this encounter Plan of Treatment +--------+---------+ + + + | Date | Type | Specialty | Care Team | Description | +--------+---------+ + + + | 06/17/ | Office | Otolaryngology | Shlomo Roach MD | | | 2019 | Visit | | [address] | | | | | | [place], | | | | | | [place] [address] | | | | | | [phone] | | | | | | | | +--------+---------+ + + + documented as of this encounter Visit Diagnoses Not on filedocumented in this encounter"
--- OUTSIDE RECORDS SUMMARY | ~2019-05-14 | XMS | Encounter Summary ---
Demographics + + + | Address | [address] | | | [place] [address] | + + + | Home Phone | | + + + | Preferred Language | Unknown | + + + | Marital Status | Single | + + + | Hinduism Affiliation | [id number] | + + + | Race | Unknown | + + + | Ethnic Group | Unknown | + + + Author + + + | Author | [facility] | | | and [place] | + + + | Organization | [facility] | | | and [place] | + + + | Address | Unknown | + + + | Phone | Unavailable | + + + Support + + + + + | Name | Relationship | Address | Phone | + + + + + | Brenda Jones | ECON | [place] | | | | | [address] | | + + + + + | Katarzyna Luke | ECON | , [place] | | + + + + + | chele townsend | ECON | Unknown | | + + + + + Care Team Providers + +------+ + | Care Power Equipment Mechanics Instructor Name | Role | Phone | + +------+ + | Ritesh England PA-C | [place] | | + +------+ + Encounter Details +--------+ + + + + | Date | Type | Department | Care Team | Description | +--------+ + + + + | 03/10/ | Transcribed | [facility] | Brittney Pratt | Liver replaced by | | 2019 | Orders | [facility] | MD Kiah [address] | transplant (HCC) | | | | [address] | [address] [place], [place] | (Primary Dx); Immune | | | | [place] | [address] | disorder (HCC); | | | | [address] | [phone] | Encounter for | | | | [phone] | | long-term (current) | | | | | | use of high-risk | | | | | | medication | +--------+ + + + + Social [...] [place], | | | | | | [place] [address] | | | | | | [phone] | | | | | | | | +--------+---------+ + + + + +--------+ + + | Name | Priori | Associated Diagnoses | Order Schedule | | | ty | | | + +--------+ + + | Comprehensive Metabolic Panel | Routin | Liver replaced by | Every quarter for 4 | | | e | transplant (HCC) | Occurrences starting | | | | Immune disorder | 03/10/2019 until | | | | (HCC) Encounter for | 03/03/2020 | | | | long-term (current) | | | | | use of high-risk | | | | | medication | | + +--------+ + + | Bilirubin, Direct | Routin | Liver replaced by | Every quarter for 4 | | | e | transplant (HCC) | Occurrences starting | | | | Immune disorder | 03/10/2019 until | | | | (HCC) Encounter for | 03/03/2020 | | | | long-term (current) | | | | | use of high-risk | | | | | medication | | + +--------+ + + | Magnesium | Routin | Liver replaced by | Every quarter for 4 | | | e | transplant (HCC) | Occurrences starting | | | | Immune disorder | 03/10/2019 until | | | | (HCC) Encounter for | 03/03/2020 | | | | long-term (current) | | | | | use of high-risk | | | | | medication | | + +--------+ + + | Phosphorus | Routin | Liver replaced by | Every quarter for 4 | | | e | transplant (HCC) | Occurrences starting | | | | Immune disorder | 03/10/2019 until | | | | (HCC) Encounter for | 03/03/2020 | | | | long-term (current) | | | | | use of high-risk | | | | | medication | | + +--------+ + + | Uric Acid | Routin | Liver replaced by | Every quarter for 4 | | | e | transplant (HCC) | Occurrences starting | | | | Immune disorder | 03/10/2019 until | | | | (HCC) Encounter for | 03/03/2020 | | | | long-term (current) | | | | | use of high-risk | | | | | medication | | + +--------+ + + | CBC no Differential | Routin | Liver replaced by | Every quarter for 4 | | | e | transplant (HCC) | Occurrences starting | | | | Immune disorder | 03/10/2019 until | | | | (HCC) Encounter for | 03/03/2020 | | | | long-term (current) | | | | | use of high-risk | | | | | medication | | + +--------+ + + | Sirolimus Trough | Routin | Liver replaced by | Every quarter for 4 | | | e | transplant (HCC) | Occurrences starting | | | | Immune disorder | 03/10/2019 until | | | | (HCC) Encounter for | 03/03/2020 | | | | long-term (current) | | | | | use of high-risk | | | | | medication | | + +--------+ + + documented as of this encounter Visit Diagnoses + + | Diagnosis | + + | Liver replaced by transplant (HCC) - Primary Liver replaced by transplant | + + | 

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
--- OUTSIDE RECORDS SUMMARY | ~2019-05-14 | XMS | Encounter Summary ---
Demographics + + + | Address | [address] | | | [place] [address] | + + + | Home Phone [...] Team Providers + +------+ + | Care Floor Space Allocator Name | Role | Phone | + +------+ + PCP | Unavailable | + +------+ + Encounter Details +--------+ + + + + | Date | Type | Department | Care Team | Description | +--------+ + + + + | 09/18/ | Procedure - | | Record, Operation [...] | | | | | [address] [place], | | | | | | [place] [address] | | | | | | [phone] | | | | | | | | +--------+---------+ + + + documented as of this encounter Procedures + +--------+ + + + | Procedure Name | Priori | Date/Time | Associated Diagnosis | Comments | | | ty | | | | + +--------+ + + + | OPERATION RECORD | | 09/18/2005 | | Results for this | | | | | | procedure are in the | | | | | | results section. | + +--------+ + + + documented in this encounter Results OPERATION RECORD (09/18/2005) + + | Transcriptions | + + | Interface, Mountain Bike Guide In - 10/04/2005 2:12 AM PST | | [id number] | | [id number] CHITRA ANN | | | | Date: 09/18/2005 | | | | Attending Surgeon: Roberth Aponte M.D. | | | | Tube Man(s): Conor Huggins M.D. | | | | Preoperative Diagnosis(es): | | Right auricular squamous cell carcinoma. | | | | Postoperative Diagnosis(es): | | Right auricular squamous cell carcinoma. | | | | Procedures Performed: | | 1. Right lateral temporal bone resection. | | 2. Right facial nerve monitoring for 4 hours. | | 3. Microdissection. | | 4. Right superficial parotidectomy. | | | | Anesthesia: | | General endotracheal anesthesia. | | | | Complications: | | Intentional transection of the temporal branch of the facial nerve. | | | | Estimated Blood Loss: | | Less than 50 cc. | | | | Findings: | | 1. The middle ear mastoid anatomy appears normal. | | 2. The zygomatic rootlets were well aerated; however, along the anterior | | portion of this dissection, there is evidence of tumor involvement. | | 3. There was no undue activity of the facial nerve monitoring during the | | case. | | | | Indications: | | Mr. Michaels is a 45-year-old gentleman with a right auricular squamous cell | | carcinoma. He is undergoing a resection of this with reconstruction today, | | and we were asked to perform the lateral temporal bone portion of the | | resection. Please see Dr. Hernandez's and Dr. Roach's separately dictated | | notes for the details of their portions of procedure. | | | | Procedure: | | The patient was identified, taken to the operating room, and placed in | | supine position. General anesthesia was induced by the anesthesiologist. | | A 2-channel bipolar facial nerve monitor was then set up and activated, and | | proper functioning was assured. It remained on for the rest of the case. | | A postauricular incision was then marked and injected with 1% lidocaine | | with epinephrine. The right ear, face, and neck were then prepped and | | draped in a standard surgical fashion. The postauricular incision was then | | created, and dissection was deepened down to the temporalis muscle. At | | this point, the decision was made to deepen the dissection through the | | temporalis muscle because anteriorly, there was evidence of deep | | infiltration of the tumor. Therefore, this was done down to the squamous | | portion of the temporal bone. The temporalis and the mastoid periosteum | | were then elevated anteriorly to expose the zygoma as well as the posterior | | portion of the external auditory canal. The periosteum was elevated | | posteriorly to expose the entire mastoid. A self-retaining retractor was | | then placed in the wound. A high-speed pneumatic drill was then used to | | perform a mastoidectomy. The tegmen mastoideum and sigmoid sinus were | | quickly identified and skeletonized. The posterior external auditory wall | | was thinned. Dissection was deepened down into the mastoid antrum. A | | facial recess approach to the middle ear was then carried out. The mastoid | | tip was then dissected removing all of the air cells within it. A | | posterior cut through the mastoid tip was then created back following the | | digastric muscle line. Attention was then drawn back towards the zygomatic | | root which was drilled anteriorly taking care not to injure the tegmen | | superiorly or the superior portion of the external auditory canal | | inferiorly. As this dissection proceeded anteriorly, it sai closer and | | closer to the depths of the tumor. Therefore, the decision was made to | | extend the resection superiorly by removing the bone of the tegmen | | mastoideum revealing the middle fossa dura. Attention was then drawn back | | towards the mastoid and extended facial recess was completed. The bone | | overlying the mastoid segment of the facial nerve was then removed. Once | | the facial nerve was positively identified as was the inferior aspect of | | the external auditory canal, an anterior cut through the mastoid cortical | | bone was then performed releasing the mastoid tip. The mastoid tip was | | then grabbed with a Raimundo clamp, and the muscular attachments to it were | | resected, and it was passed off the table. Through the facial recess | | exposure, the incudostapedial joint was then disarticulated as was the | | incudomalleolar joint. The incus was then removed. The drilling then | | proceeded through the bone lateral to the hypotympanum following the | | annular rim anteriorly until the temporomandibular joint space was | | encountered. Attention was then drawn back to the zygomatic root where | | drilling further medially and following the external auditory canal allowed | | positive identification of the eustachian tube as well as the | | temporomandibular joint space. At this point, the lateral portion of the | | temporal bone was loose, and we were able to rock it forward. Because the | | remaining anterior cut involved resecting the tumor, this portion of the | | resection was left for Dr. Hernandez. Please see his dictated note for the | | details from this point on. At this point, attention was drawn towards | | performing the superficial parotidectomy. An incision was marked | | approximately 1.5 cm in front of the anterior portion of the tumor and | | curved back down to the insertion of the lobule which met up with the | | postauricular incision. At this point, the remainder of the modified Sheldon | | incision extending down across the neck was then drawn. This area was all | | injected with 1% lidocaine with epinephrine. The incision was then created | | and deepened down to a subplatysmal plane inferiorly and a plane along the | | parotideomasseteric fascia superiorly. A skin and subcutaneous flap was | | then elevated anteriorly exposing the parotid tissue. The facial nerve was | | then again identified within the mastoid as it was exiting through the | | stylomastoid foramen. Dissection along the nerve then allowed us to divide | | the overlying parotid tissue. This dissection continued to the pes, and | | then, the inferior most branch was followed out dividing all the overlying | | parotid tissue until the anterior margin of parotid was identified. The | | parotid tissue was then reflected superiorly as the next branch was | | identified and followed anteriorly to the anterior aspect of the parotid | | tissue. Dissection to the parotid continued in this fashion elevating the | | superficial lobe of the parotid superiorly as each of the nerves were | | sequentially followed from their origin at the pes to the anterior aspect | | of the parotid tissue dividing all intervening tissue. As this dissection | | proceeded along the temporal branch of the facial nerve, it was determined | | that the nerve was coursing directly into the tumor. Therefore, the | | temporal branch was intentionally transected as it exited the pes. At this | | point, the case was turned over to Dr. Leon Hernandez and Dr. Shlomo Roach. | | Please see their separately dictated notes. | | | | Disposition: | | The patient tolerated this portion of the procedure well and remained in | | the operating room for the rest of the case. Dr. Roberth Aponte was | | present and scrubbed for the entire case. | | | | | | | | | | Conor Huggins M.D. Roberth Aponte M.D. | | | | / | | [id number] / [id number] / [id number] / | | | | | | E: 09/23/2005 cmw | | | | | | Electronically signed by Roberth Aponte 10-03-2005 02:05:58 PM | + + documented in this encounter Visit Diagnoses Not on filedocumented in this encounter"
--- OUTSIDE RECORDS SUMMARY | ~2019-05-14 | XMS | Encounter Summary ---
Demographics + + + | Address | [address] | | | [place] [address] | + + + | Home Phone [...] Author + + + | Author | [facility] [employer] [facility] | + + + | Organization | [facility] | + + + [...] Team Providers + +------+ + | Care Mucking Machine Operator Name | Role | Phone | + +------+ + | No Pcp Per Patient | PCP | Unavailable | + +------+ + Reason for Visit + + + | Reason | Comments | + + + | New patient | here for hvf 30-2 ou to start./the pt said that he can close his | | consultation | OD, said that he has complete eye closure at 5-6 seconds; skin | | | of eyelid is thin and gold weight is visible but not exposed; | | | conjunctiva somewhat injected; eye is "glassy" with some | | | epiphora; feels better with lifting the lateral canthus; vision | | | improves with manually lifting his heavy browthen he feels like | | | pain or burning sensation/ | + + + Encounter Details +--------+---------+ + + + | Date | Type | Department | Care Team | Description | +--------+---------+ + + + | 02/06/ | Office | [facility] | Natanael Gutierrez MD | Malignant Neoplasm | | 2005 | Visit | [facility] [address] | [address] [facility] | of Cheek ([facility]); | | | | [address] | [address] [place], | Mechanical Ectropion | | | | Mailcode: CEI | [place] [address] | | | | | Mailcode: CEI | [phone] | | | | | [place], [place] | | | | | | [address] | | | | | | [phone] | | | +--------+---------+ + + + [...] documented as of this encounter Progress Notes Alon Thomason - 02/06/2006 3:20 PM PDT [facility] PROGRESS NOTE 02/06/2006 HISTORY: Referred by: RAY ROACH MD [address] [place] [address] 46 y.o year old male from [place] -Patient presents with: New patient consultation - here for hvf 30-2 ou to start./the pt said that he can close h is OD, said that he has complete eye closure at 5-6 seconds; skin of eyelid is thin and g old weight is visible but not exposed; conjunctiva somewhat injected; eye is "glassy" with s ome epiphora; feels better with lifting the lateral canthus; vision improves with manually l ifting his heavy browthen he feels like pain or burning sensation/ Referred by Dr. Roach for comprehensive eye exam and VF. He is planning tarsal strip and debu lking surgery of cheek in near future. VISUAL FIELD INTERPRETATION - HVF 30-2 KENDELL done OU to evaluate for central vision loss Reliability: good OU Impression: normal blind spot, foveal sensitivity, PSD, and overall pattern, Both Eyes IMP: pre-auricular carcinoma without evidence of central vision loss Natanael Gutierrez M.D. 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 Review of systems: Medications, allergies, medical, surgical and family history were review ed by me at this visit utilizing COA patient history form. Pertinent positives: . All else unless noted was neg. (fever, wt. loss, ENT, cardiovascular, pulmonary, GI, urinar y, neurologic, endocrine, bleeding/blood disorders, AIDS/HIV, cancer/tumors, arthritis) EXAMINATION: Visual acuity CC SC PH Near cc Near sc w CL Right eye / 20/70-2 20/40- / / Left eye / 20/40 20/25+ / / Comments: / Other IOP CCT(pachy) Amsler Color Pupils: equal, round, nl reactivity, no APD Right eye 21 Motility: orthophoria with full versions Left eye 17 CVF: Full both eyes IOP Method: Tonopen Patient dilated at with 1% Mydriacyl Mental status: Alert, oriented. External OD OS Orbit normal normal Lacrimal normal normal Slit lamp exam. OD OS Lids mild ectropion lower lid, gold weight upper lid and takes pt 5 seconds to fully close lid, good bells reflex normal Conjunctiva elevated tear miniscus clear Cornea clear, no staining clear, no staining AC deep and quiet deep and quiet Iris normal normal Lens clear clear Vitreous clear clear Disc 0.40 and normal cup with good rim, normal disc size 0.40 and normal cup with good rim, normal disc size Macula normal normal Vessels normal normal Periphery normal normal IMPRESSION: 1. pre-auricular squamous carcinoma right side, s/p several surgeries, pt has gold weight OD upper lid with symptoms of dry eye. 2. ectropion OD lower lid, Dr Roach planning repair 3. HVF normal today OU PLAN: 1. Return to clinic 6 months Natanael Gutierrez M.D. Reporting Manager, Ophthalmology renda Hutton - 02/07/20 2:14 PM PDTSimeon Michaels is a 46 y.o male Patient presents with: New patient consultation - here for hvf 30-2 ou to start. Active Medications as of 02/06/2006: VICODIN 5 MG-500 MG TAB take 1 tablet by oral route every 4-6 hours as needed for pain VAsc RE: -2 VAcc RE: / VAph RE: - VAsc LE: VAcc LE: / VAph LE: + documented in this encou nter Plan of Treatment +--------+---------+ + + + | Date | Type | Specialty | Care Team | Description | +--------+---------+ + + + | 06/17/ | Office | Otolaryngology | Ray Roach MD | | | 2019 | Visit | | [address] | | | | | | [place], | | | | | | [place] [address] | | | | | | [phone] | | | | | | | | +--------+---------+ + + + + + +--------+ + + | Name | Type | Priori | Associated Diagnoses | Order Schedule | | | | ty | | | + + +--------+ + + | [place] VISUAL FIELD | Procedures | Routin | Malignant Neoplasm | Ordered: 02/06/2006 | | EXAM,EXTENDED | | e | of Cheek (HCC) | | + + +--------+ + + documented as of this encounter Visit Diagnoses + + | Diagnosis | + + | 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, face, and neck | + + | Mechanical ectropion | + + documented in this encounter
--- OUTSIDE RECORDS SUMMARY | ~2019-05-14 | XMS | Encounter Summary ---
Demographics + + + | Address | [address] | | | [place] [address] | + + + | Home Phone [...] + | Author | [facility] [employer] [facility] | + + + | Organization | [facility] [employer] [facility] [...] Team Providers + +------+ + | Care Marble Coper Name | Role | Phone | + +------+ + | Sylvester Scherer DO | PCP | | + +------+ + Encounter Details +--------+ + + + + | Date | Type | Department | Care Team | Description | +--------+ + + + + | 11/06/ | Abstract | Transplant | Brittney Pratt | | | 2015 | | Coordinators [address] | MD Kiah [address] | | | | | [address] | [place], [place] | | | | | [place], [place] | [address] | | | | | [address] | [phone] | | | | | [phone] | | | +--------+ + + + [...] | | | | [address] [place], | | | | | | [place] [address] | | | | | | [phone] | | | | | | | | +--------+---------+ + + + documented as of this encounter Procedures + +--------+ + + + | Procedure Name | Priori | Date/Time | Associated Diagnosis | Comments | | | ty | | | | + +--------+ + + + | NICOTINE + | Routin | 10/25/2014 | | Results for this | | METABOLITE SCREEN, | e | 2:01 PM | | procedure are in the | | URINE | | PDT | | results section. | + +--------+ + + + | DRUG SCREEN PROFILE | Routin | 10/25/2014 | | Results for this | | 5, URINE | e | 2:01 PM | | procedure are in the | | | | PDT | | results section. | + +--------+ + + + | LIVER TRANSPLANT | Routin | 10/24/2014 | | Results for this | | POST PANEL (EXT | e | 12:15 PM | | procedure are in the | | RESULTS) | | PDT | | results section. | + +--------+ + + + documented in this encounter Results NICOTINE + METABOLITE SCREEN, URINE (10/25/2014 2:01 PM PDT) + +-------+ + + + | Component | Value | Ref Range | Performed | Pathologist | | | | | At | Signature | + +-------+ + + + | NICOTINE, | 2,560 | | [facility] | | | URINE | | | LAB - | | | | | | [place] | | + +-------+ + + + | COTININE, | 520 | | [facility] | | | URINE | | | LAB - | | | | | | [place] | | + +-------+ + + + | 3-OH-COTINI | 1,990 | | [facility] | | | NE, URINE | | | LAB - | | | | | | [place] | | + +-------+ + + + | NORNICOTINE | 43 | | [facility] | | | , URINE | | | LAB - | | | | | | [place] | | + +-------+ + + + | ANABASINE, | 6 | | [facility] | | | URINE | | | LAB - | | | | | | [place] | | + +-------+ + + + + + | Specimen | + + | Urine - Urine | + + + + + + + | Performing | Address | City/State/Zipcode | Phone Number | | Organization | | | | + + + + + | [facility] - | [address] | [place] | [phone] | | [place] | | | | + + + + + DRUG SCREEN PROFILE 5, URINE (10/25/2014 2:01 PM PDT) + + + + + + | Component | Value | Ref Range | Performed | Pathologist | | | | | At | Signature | + + + + + + | AMPHET/MET | Positive | | [facility] | | | SCRN,URINE | | | LAB - | | | | | | [place] | | + + + + + + | BARBITURATE | Negative | | [facility] | | | SCREEN, | | | LAB - | | | URINE | | | [place] | | + + + + + + | BENZODIAZEP | Positive | | [facility] | | | INE SCR, UR | | | LAB - | | | | | | [place] | | + + + + + + | CANNABINOID | Negative | | [facility] | | | UR | | | LAB - | | | | | | [place] | | + + + + + + | COCAINE | Negative | | [facility] | | | MET. SCRN, | | | LAB - | | | URINE | | | [place] | | + + + + + + | OPIATE | Positive | | [facility] | | | URINE | | | LAB - | | | | | | [place] | | + + + + + + | METHADONE | Negative | | [facility] | | | SCR, UR | | | LAB - | | | | | | [place] | | + + + + + + | ALCOHOL | Negative | | [facility] | | | SCRN, OMAR | | | LAB - | | | | | | [place] | | + + + + + + + + | Specimen | + + | Urine - Urine | + + + + + | Narrative | Performed At | + + + | | | + + + + + + + + | Performing | Address | City/State/Zipcode | Phone Number | | Organization | | | | + + + + + | [facility] - | [address] | [place], [place] | [phone] | | [place] | | | | + + + + + LIVER TRANSPLANT POST PANEL (EXT RESULTS) (10/24/2014 12:15 PM PDT) + +-------+ + + + | Component | Value | Ref Range | Performed | Pathologist | | | | | At | Signature | + +-------+ + + + | SODIUM, | 140 | mmol/L | [facility] | | | PLASMA | | | LAB - | | | (LAB) | | | [place] | | + +-------+ + + + | POTASSIUM, | 5 | mmol/L | [facility] | | | PLASMA | | | LAB - | | | (LAB) | | | [place] | | + +-------+ + + + | CHLORIDE, | 102 | mmol/L | [facility] | | | PLASMA | | | LAB - | | | (LAB) | | | [place] | | + +-------+ + + + | TOTAL CO2, | 28 | mmol/L | [facility] | | | PLASMA | | | LAB - | | | (LAB) | | | [place] | | + +-------+ + + + | GLUCOSE, | 87 | 65 - 110 mg/dL | [facility] | | | PLASMA | | | LAB - | | | (LAB) | | | [place] | | + +-------+ + + + | BUN, PLASMA | 12 | mg/dL | [facility] | | | (LAB) | | | LAB - | | | | | | [place] | | + +-------+ + + + | CREATININE | 1 | mg/dL | [facility] | | | PLASMA | | | LAB - | | | (LAB) | | | [place] | | + +-------+ + + + | CALCIUM, | 9.1 | mg/dL | [facility] | | | PLASMA | | | LAB - | | | (LAB) | | | [place] | | + +-------+ + + + | TOTAL | 6.2 | g/dL | [facility] | | | PROTEIN, | | | LAB - | | | PLASMA | | | [place] | | | (LAB) | | | | | + +-------+ + + + | ALBUMIN, | 4.1 | g/dL | [facility] | | | PLASMA | | | LAB - | | | (LAB) | | | [place] | | + +-------+ + + + | BILIRUBIN | 0.4 | Transcutaneous | [facility] | | | TOTAL | | Bilirubinometer | LAB - | | | | | | [place] | | + +-------+ + + + | ALK PHOS | 66 | U/L | [facility] | | | | | | LAB - | | | | | | [place] | | + +-------+ + + + | AST(SGOT) | 37 | U/L | [facility] | | | | | | LAB - | | | | | | [place] | | + +-------+ + + + | ALT (SGPT) | 35 | U/L | [facility] | | | | | | LAB - | | | | | | [place] | | + +-------+ + + + | WHITE CELL | 3.4 | K/cu mm | [facility] | | | COUNT | | | LAB - | | | | | | [place] | | + +-------+ + + + | HEMATOCRIT | 43.1 | % | [facility] | | | | | | LAB - | | | | | | [place] | | + +-------+ + + + | HEMOGLOBIN | 14.3 | 13.5 - 17.5 | [facility] | | | | | g/dL | LAB - | | | | | | [place] | | + +-------+ + + + | PLATELET | 119 | K/cu mm | [facility] | | | COUNT | | | LAB - | | | | | | [place] | | + +-------+ + + + [...] + + | [facility] - | [address] | [place] | [phone] | | [place] | | | | + + + + + documented in this encounter Visit Diagnoses Not on filedocumented in this encounter"
--- OUTSIDE RECORDS SUMMARY | ~2019-05-14 | XMS | Encounter Summary ---
Demographics + + + | Address | [address] | | | [place] [address] | + + + | Home Phone [...] | Author | [facility] [employer] [facility] | + + + | Organization | [facility] [employer] [facility] | + + + [...] Providers + +------+ + | Care Power Systems Engineer Name | Role | Phone | + +------+ + | Sylvester Scherer DO | PCP | | + +------+ + Encounter Details +--------+ + + + + | Date | Type | Department | Care Team | Description | +--------+ + + + + | 10/11/ | Hospital | Registration HOV | | | | 2015 | Encounter | [address] | | | | | | [place], | | | | | | [place] [address] | | | +--------+ + + + [...] | | | | | [place], | | | | | | [place] [address] | | | | | | [phone] | | | | | | | | +--------+---------+ + + + documented as of this encounter Visit Diagnoses Not on filedocumented in this encounter"
--- OUTSIDE RECORDS SUMMARY | ~2019-05-14 | XMS | Encounter Summary ---
Demographics + + + | Address | [address] | | | [place] [address] | + + + | Home Phone [...] + | Author | [facility] [employer] [facility] | + + + | Organization | [facility] [employer] [facility] | + + + | [...] Team Providers + +------+ + | Care Timber Cruiser Name | Role | Phone | + [...] + + + + | 03/03/ | Anesthesia | 4N INTRA OP 3181 | Mart Gibbs MD | | | 2018 | Event | [address] | [address] | | | | | [address] | [facility] [place], | | | | | Pavilion Amb[facility] | [place] [address] | | | | | Surgery Admitting | [phone] | | | | | Desk Located on the | | | | | | 4th floor, Room | Lelo Ozuna, | | | | | [address] [place], [place] | AUTOMATIC COIN MACHINE MECHANIC [address] | | | | | [address] | [address] | | | | | | [place], [place] | | | | | | [address] | | | | | | [phone] | | | | | | | | +--------+ + + + + Anesthesia Record + + + + + | Procedure Name | Responsible | Anesthesia Start | Anesthesia Stop Time | | | Anesthesiologist | Time | | + + + + + | ROTATIONAL FLAP | | | | | FACE/ SCALP | | | | | (canceled) | | | | + + + + + +----+---+ + + | Da | T | Event | Comment | | te | i | | | | | m | | | | | e | | | +----+---+ + + | 08 | 1 | Pt. Check | Prior to anesthesia start, pt. Identified, examined, chart | | /0 | 1 | | reviewed, PARQ held, anesthetic plan made or approved by | | 1/ | 1 | | attending anesthesiologist. NPO status confirmed as appropriate | | 20 | 0 | | for procedure Preoperative evaluation: unchanged | | 18 | | | | +----+---+ + + | | 1 | Eq Check | Anesthesia machine checked Equipment verified | | | 1 | | | | | 1 | | | | | 5 | | | +----+---+ + + | | 1 | Note | Case cancelled by anesthesia, needs further cardiac work-up | | | 1 | | | | | 3 | | | | | 7 | | | +----+---+ + + +------+ | Meds | +------+ + + + No medications | on file. | + + + + + | No agents on file. | + + + + | No blood administrations on file. | + + + + | No LDAs on file. | + + documented in this encounter Social [...] | | | | | [place], | | | | | | [place] [address] | | | | | | [phone] | | | | | | | | +--------+---------+ + + + documented as of this encounter Visit Diagnoses Not on filedocumented in this encounter"
--- OUTSIDE RECORDS SUMMARY | ~2019-05-14 | XMS | Encounter Summary ---
Demographics + + + | Address | [address] | | | [place] [address] | + + + | Home Phone [...] | Author | [facility] [employer] [facility] | + + + | Organization | [facility] [employer] [facility] | + + + [...] Team Providers + +------+ + | Care Envelope Fold Operator Name | Role | Phone | + +------+ + | Ritesh England PA-C | PCP | | + +------+ + Reason for Visit + + + | Reason | Comments | + + + | Liver Transplant | hypertension issues | | Follow Up | | + + + Encounter Details +--------+ + + + + | Date | Type | Department | Care Team | Description | +--------+ + + + + | 04/20/ | Telephone | Transplant | Yvette Perkins RN | Liver Transplant | | 2019 | | Coordinators [address] | [address] | Follow Up | | | | [address] | [address], | (hypertension | | | | Rd [place], [place] | [place] [address] | issues) | | | | [address] | | | | | | [phone] | | | +--------+ + + + [...] | | | | Angel[address] [place], | | | | | | [place] [address] | | | | | | [phone] | | | | | | | | +--------+---------+ + + + documented as of this encounter Visit Diagnoses Not on filedocumented in this encounter"
--- OUTSIDE RECORDS SUMMARY | ~2019-05-14 | XMS | Encounter Summary ---
Demographics + + + | Address | [address] | | | [place] [address] | + + + | Home Phone [...] Author | [facility] | + + + | Organization | [facility] [employer] [facility] | + + [...] Team Providers + +------+ + | Care Hazmat Cdl Driver Name | Role | Phone | + +------+ + | No Pcp Per Patient | PCP | Unavailable | + +------+ + Reason for Visit +--------+ + | Reason | Comments | +--------+ + | Other | pt called stating he is feeling a little depressed and that his | | | physical therapy is not working for him. Wants to know if he can | | | start riding his horses again. please advise [phone], | | | thanks | +--------+ + Encounter Details +--------+ + + + + | Date | Type | Department | Care Team | Description | +--------+ + + + + | 01/02/ | Telephone | Otolaryngology | Leon Hernandez, | Other (pt called | | 2005 | | Head and Neck | MD Magalys Felxi | stating he is | | | | Surgery Services at | [facility] | feeling a little | | | | [address] | [place], [place] | depressed and that | | | | [facility] | [address] | his physical therapy | | | | Mailcode: PV01 | [phone] | is not working for | | | | [facility] | | him. Wants to know | | | | [place], [place] | | if he can start | | | | [address] | | riding his horses | | | | [phone] | | again. please | | | | | | advise [phone], | | | | | | thanks) | +--------+ + + + + Social [...] | | | | | Angelica [address] [place], | | | | | | [place] [address] | | | | | | [phone] | | | | | | | | +--------+---------+ + + + documented as of this encounter Visit Diagnoses Not on filedocumented in this encounter"
--- OUTSIDE RECORDS SUMMARY | ~2019-05-14 | XMS | Encounter Summary ---
Demographics + + + | Address | [address] | | | [place] [address] | + + + | Home Phone [...] Author + + + | Author | [facility] [employer] [facility] | + + + | Organization | [facility] [employer] [facility] | + + + [...] Team Providers + +------+ + | Care Data Analytics Architect Name | Role | Phone | + +------+ + | Ritesh England PA-C | PCP | | + +------+ + Encounter Details +--------+ + + + + | Date | Type | Department | Care Team | Description | +--------+ + + + + | 09/10/ | Pharmacy | Outpatient Retail | | | | 2019 | Visit | [facility] | | | | | | [address] | | | | | | [place], | | | | | | [place] [address] | | | +--------+ + + + [...] | | | | | [place], | | | | | | [place] [address] | | | | | | [phone] | | | | | | | | +--------+---------+ + + + documented as of this encounter Visit Diagnoses Not on filedocumented in this encounter"
--- OUTSIDE RECORDS SUMMARY | ~2019-05-14 | XMS | Encounter Summary ---
Demographics + + + | Address | [address] | | | [place] [address] | + + + | Home Phone | | + + + | Preferred Language | Unknown | + + + | Marital Status | Single | + + + | Adventist Affiliation | BAP | + + + | Race | White | + + + | Ethnic Group | Not or | + + + Author + + + | Author | [facility] | + + + | Organization | [facility] [employer] [facility] | + + + | [...] Team Providers + +------+ + | Care Cheesemaker Helper Name | Role | Phone | + +------+ + | Ritesh England PA-C | PCP | | + +------+ + Encounter Details +--------+ + + + + | Date | Type | Department | Care Team | Description | +--------+ + + + + | 03/02/ | Telephone | Liver Transplant | Liza Lopes, | | | 2018 | | at [facility] [address] | FILM BOOKER [address] | | | | | [address] | [address] | | | | | Evan Khan | [place], [place] | | | | | [place] | [address] | | | | | | [phone] | | | | | [phone] | | | +--------+ + + + [...] | | | | | [address] [place], | | | | | | [place] [address] | | | | | | [phone] | | | | | | | | +--------+---------+ + + + documented as of this encounter Visit Diagnoses Not on filedocumented in this encounter"
--- OUTSIDE RECORDS SUMMARY | ~2019-05-14 | XMS | Encounter Summary ---
Demographics + + + | Address | [address] | | | [place] [address] | + + + | Home Phone | | + + + | Preferred Language | Unknown | + + + | Marital Status | Single | + + + | Synagogue Affiliation | BAP | + + + | Race | White | + + + | Ethnic Group | Not or | + + + Author + + + | Author | [facility] | + + + | Organization | [facility] [employer] [facility] | + + [...] Team Providers + +------+ + | Care Deep Submergence Vehicle Crewmember Name | Role | Phone | + +------+ + | Sylvester Scherer DO | PCP | | + +------+ + Reason for Visit + + + | Reason | Comments | + + + | Refill Request | ALONSO Story | + + + Encounter Details +--------+--------+ + + + | Date | Type | Department | Care Team | Description | +--------+--------+ + + + | 05/ | Refill | Liver Transplant | Brittney Pratt | Refill Request | | 2016 | | at [facility] [address] | E, MD [address] | ([place], MMF) | | | | [address] | [address] [place], [place] | | | | | Mailcode: L590 | [address] | | | | | [facility] | [phone] | | | | | [address] [place], [place] | | | | | | [address] | | | | | | [phone] | | | +--------+--------+ + + + [...] | | | | | [address] [place], | | | | | | [place] [address] | | | | | | [phone] | | | | | | | | +--------+---------+ + + + documented as of this encounter Visit Diagnoses Not on filedocumented in this encounter"
--- OUTSIDE RECORDS SUMMARY | ~2019-05-14 | XMS | Encounter Summary ---
Demographics + + + | Address | [address] | | | [place] [address] | + + + | Home Phone [...] + | Author | [facility] [employer] [facility] | + + + | Organization | [facility] [employer] [facility] | + + + | [...] Team Providers + +------+ + | Care Patch Setter Name | Role | Phone | + +------+ + | Ritesh England PA-C | PCP | | + +------+ + Reason for Visit + + + | Reason | Comments | + + + | Medication Refill | | | Request | | + + + Encounter Details +--------+ + + + + | Date | Type | Department | Care Team | Description | +--------+ + + + + | 02/04/ | Telephone | [facility] | Janae Ridley, | Medication Refill | | 2019 | | [address] | promotions assistant [address] [facility] | Request | | | | Place [facility] [address] | [facility] | | | | | [place] [address] | [place], [place] | | | | | [phone] | [address] | | +--------+ + + + + [...] [address] | | | | | | nAgelica Ca[place], | | | | | | [place] [address] | | | | | | [phone] | | | | | | | | +--------+---------+ + + + documented as of this encounter Visit Diagnoses Not on filedocumented in this encounter"
--- OUTSIDE RECORDS SUMMARY | ~2019-05-14 | XMS | Encounter Summary ---
Demographics + + + | Address | [address] | | | [place] [address] | + + + | Home Phone | | + + + | Preferred Language | Unknown | + + + | Marital Status | Single | + + + | Mu-Ism Affiliation | BAP | + + + | Race | White | + + + | Ethnic Group | Not or | + + + Author + + + | Author | [facility] [employer] [facility] | + + + | Organization | [facility] [employer] [facility] | [...] Team Providers + +------+ + | Care Voice Writing Reporter Name | Role | Phone | + +------+ + | Ritesh England PA-C | PCP | | + +------+ + Reason for Referral PROC - Outpatient Surgery (Routine) +--------+---------+ + + + + | Status | Reason | Specialty | Diagnoses / | Referred By | Referred To | | | | | Procedures | Contact | Contact | +--------+---------+ + + + + | Closed | Coded | Otolaryngolog | Diagnoses | Wax, Shlomo, | Wax, Shlomo, | | | | y | Squamous | MD [address] | MD [address] | | | | | cell | [address] | [address] | | | | | carcinoma of | [address] | [address] | | | | | skin of | [place], [place] | [place], [place] | | | | | other parts | [address] | [address] | | | | | of face | Phone: | Phone: | | | | | Procedures | [phone] | [phone] | | | | | REQUEST TO | Fax: | Fax: | | | | | SURGERY | [phone] | [phone] | | | | | DATA STEWARD | | | | | | | MI ADJ TISS | | | | | | | XFER | | | | | | | HEAD,FAC,ARRIAZA | | | | | | | D <10SQCM | | | | | | | MI ADJ TISS | | | | | | | XFER | | | | | | | HEAD,FAC,ARRIAZA | | | | | | | D 10.1-30 | | | | | | | MI SKIN | | | | | | | TISSUE | | | | | | | REARRANGEMEN | | | | | | | T MI SKIN | | | | | | | TISSUE | | | | | | | REARRANGEMEN | | | | | | | T ADD-ON 90 | | | | | | | global | | | +--------+---------+ + + + + Reason for Visit Benefits Check (Routine) + +--------+ + + + + | Status | Reason | Specialty | Diagnoses / | Referred By | Referred To | | | | | Procedures | Contact | Contact | + +--------+ + + + + | Authorized | | Otolaryngolog | Diagnoses | Gilmer, | Marley, Shlomo, | | | | y | Malignant | DO Sylvester | [address] | | | | | neoplasm of | [address] | [address] | | | | | head, face | Hospital | [address] | | | | | and neck | Internal | [place], [place] | | | | | Procedures | Medicin | [address] | | | | | [place] | [address] | Phone: | | | | | OFFICE/OUTPT | [address] | [phone] | | | | | | [place], | Fax: | | | | | VISIT,EST,[place] | [place] [address] | [phone] | | | | | [address] | Phone: | | | | | | | [phone] | | | | | | | Fax: | | | | | | | [phone] | | + +--------+ + + + + Encounter Details +--------+---------+ + + + | Date | Type | Department | Care Team | Description | +--------+---------+ + + + | 08/20/ | Office | Otolaryngology | Shlomo Roach MD | Squamous cell | | 2019 | Visit | Head and Neck | [address] | carcinoma of skin of | | | | Surgery Services at | [facility], | ear, unspecified | | | | [facility] [address] [facility] | [place] [address] | laterality (Primary | | | | [facility] | [phone] | Dx); Scar condition | | | | Mailcode: PV01 | | and fibrosis of skin | | | | [facility] | | | | | | [place], [place] | | | | | | [address] | | | | | | [phone] | | | +--------+---------+ + + + [...] + + + | Blood Pressure | 184/92 | 08/20/2018 11:50 AM | | | | | PST | | + + + + + | Pulse | 53 | 08/20/2018 11:50 AM | | | | | PST [...] + + | Weight | 69.4 kg (152 lb 14.4 | 08/20/2018 11:50 AM | | | | oz) | PST | | + + + + + | Height | - | - | | + + + + + | Body Mass Index | 23.25 | 03/03/2018 9:00 AM | | | [...] encounter Progress Notes Shlomo Roach MD - 08/20/2018 1:55 PM PSTClinic Date:08/20/2018 I saw Mr. Michaels today regarding his gold weight. He is well known to myself and has had a gold weight for his upper eyelid. It has extruded through his skin, held in by 2 sutures. I removed the sutures and took the gold weight out. His eye is actually functioning. He h as excellent closure and does not require anything for that. I did chemical dependency counselor him that he shou ld let me know if he has any scratchiness, any pain, anything at all funny, he needs to come in right away with the right eye. I do not think that he will though. He has some of these lesions on his face that have recurred in the areas. We did note that our margins were a little bit close on the last excisions and he would like to have these r e-resected. He has good mobile skin throughout and I am quite happy to resect them. He yuliet l need 4 lesions resected, about 4 x 4 cm each, and some rotation flaps to reconstruct them. I arranged to do this and I will see him again after his surgery. MD TELLY Delgadillo/SABRA /[id number] signed by Shlomo Roach MD at 08/20/2018 5:26 PM PSTWax Shlomo MD - 08/20/2018 12:00 PM PSTDictation #1 [id number] signed by Shlomo Roach MD at 08/20/2018 12:53 PM PSTdocumented in this en counter Plan of Treatment +--------+---------+ + + + | Date | Type | Specialty | Care Team | Description | +--------+---------+ + + + | 06/17/ | Office | Otolaryngology | Shlomo Roach MD | | | 2018 | Visit | | [address] | | | | | | [place], | | | | | | [place] [address] | | | | | | [phone] | | | | | | | | +--------+---------+ + + + documented as of this encounter Visit Diagnoses + + | Diagnosis | + + | Squamous cell carcinoma of skin of ear, unspecified laterality - Primary | + + | Scar condition and fibrosis of skin | + + documented in this encounter"
--- OUTSIDE RECORDS SUMMARY | ~2019-05-14 | XMS | Encounter Summary ---
Demographics + + + | Address | [address] | | | [place] [address] | + + + | Home Phone [...] + + | Author | [facility] | + + + | Organization | [facility] [facility] | + + + | Address [...] Team Providers + +------+ + | Care Office Analyst Name | Role | Phone | + +------+ + | Ritesh England PA-C | PCP | | + +------+ + Reason for Referral Consultation (Routine) +--------+---------+ + + + + | Status | Reason | Specialty | Diagnoses / | Referred By | Referred To | | | | | Procedures | Contact | Contact | +--------+---------+ + + + + | Closed | Other | Pain | Diagnoses | Chyna, | Rail Assembler Chh1 | | | | Management | Malignant | MD Richadr | [address] | | | | | neoplasm of | [address] | [address] | | | | | parotid | [address] | Mailcode: | | | | | gland (HCC) | [place], [place] | [facility] | | | | | Procedures | [address] | for Health | | | | | CONSULT TO | Phone: | and Healing, | | | | | PAIN | [phone] | Building | | | | | MANAGEMENT | Fax: | 1,15th Floor | | | | | | [phone] | [place], [place] | | | | | | | [address] | | | | | | | Phone: | | | | | | | [phone] | | | | | | | Fax: | | | | | | | [phone] | +--------+---------+ + + + + Reason for Visit Consultation (Routine) +--------+--------+ + + + + [...] | | head, face | Hospital | [facility] | | | | | and neck | Internal | Rd Mailcode: | | | | | Procedures | Medicin | [address] | | | | | [place] NEW | [address] | Physician's | | | | | PATIENT | [address] | Pavilion | | | | | [address] III | [place], | [place], [place] | | | | | [place] | [place] [address] | [address] | | | | | OFFICE/OUTPT | Phone: | Phone: | | | | | | [phone] | [phone] | | | | | VISIT,EST,LE | Fax: | Fax: | | | | | [address] | [phone] | [phone] | +--------+--------+ + + + + Encounter Details +--------+---------+ + + + | Date | Type | Department | Care Team | Description | +--------+---------+ + + + | 03/23/ | Office | Otolaryngology | Shlomo Roach MD | Malignant neoplasm | | 2017 | Visit | Head and Neck | [address] | of parotid gland | | | | Surgery Services at | [facility], | ([facility]) (Primary Dx) | | | | [facility] [address] | [place] [address] | | | | | [address] | [phone] | | | | | Mailcode: PV01 | | | | | | [facility] | | | | | | [place], [place] | | | | | | [address] | | | | | | [phone] | | | +--------+---------+ + + + [...] +---------+ + + | Blood Pressure | 138/80 | 03/23/2017 2:29 PM | | | | | PDT | | + +---------+ + + | Pulse | 88 | 03/23/2017 2:29 PM | | | | | PDT | | + +---------+ + + | Temperature | - | - | | + +---------+ + + | Respiratory Rate | 16 | 03/23/2017 2:29 PM | | | | | PDT [...] encounter Progress Notes Shlomo Roach MD - 03/23/2017 5:31 PM PDTClinic Date:03/23/2017 I saw Mr. Michaels today regarding his facial lesions. He is a patient who is well known to m yself and the majority of the visit was spent in counseling. Greater than 45 minutes with s urgical planning, reviewing scans, reviewing his findings, and discussing his options. Cons ent was obtained and we made arrangements for his followup. He is very well known to myself. 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 He has been doing well with that, bu t continues to develop skin cancers. 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 He is followed up for his liver transplant here at [facility]. He has 3 lesions on the right side of his face, 1 in the nasolabial, 1 by the lateral canth us, and 1 over the cheek. These all need to be excised. The hair tinter would do it. No one would put him to sleep and he wanted a general anesthetic. I reviewed the lesions with him and I think that we could excise these and correct them wit h a cervicofacial rotation advancement flap. We should be able to do it in a bilobed fashio n and get closure of all of the lesions. The liver transplant presents a conundrum as does some of his other medical comorbidities. We are going to check with his transplant surgeon. We will check with his medical status a nd then we will arrange to get these lesions treated appropriately. I am hoping that we can do it under general, but we will wait to see what we find from his workup of his medical condition. If he can come to surgery, we discussed with him excision of the 3 lesions, 2 of them would be a single skin excision, approximately 10 cm x 3 cm, and another 1 of approximately 4 x 4 cm. A cervicofacial rotation advancement flap of approximately 15 x 10 cm should allow us for primary closure and tacking it up so we did not get too much ectropion. MD TELLY Delgadillo/SABRA /[id number] signed by Shlomo Roach MD at 03/25/2017 10:55 AM PDTWax , MD Shlomo - 03/23/2017 3:00 PM PDTDictation #1 [id number] signed by Shlomo Roach MD at 03/23/2017 5:14 PM PDTdocumented in this en counter Plan of Treatment +--------+---------+ + + + | Date | Type | Specialty | Care Team | Description | +--------+---------+ + + + | 06/17/ | Office | Otolaryngology | Shlomo Roach MD | | | 2019 | Visit | | [address] | | | | | | [place], | | | | | | [place] [address] | | | | | | [phone] | | | | | | | | +--------+---------+ + + + documented as of this encounter Visit Diagnoses + + | Diagnosis | + + | 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
--- OUTSIDE RECORDS SUMMARY | ~2019-05-14 | XMS | Encounter Summary ---
Demographics + + + | Address | [address] | | | [place] [address] | + + + | Home Phone [...] Author | [facility] | + + + | Organization | [facility] [employer] [facility] | [...] Team Providers + +------+ + | Care Breakfast Attendant Name | Role | Phone | [...] | +--------+ + + + + | 12/04/ | Telephone | Transplant | Yvette Perkins RN | Liver Transplant | | 2018 | | Coordinators [address] | [address] | Follow Up (repeat | | | | [address] | [address], | labs) | | | | [place], [place] | [place] [address] | | | | | [address] | | | | | | [phone] | | | +--------+ + + + [...] | | | | | [address] [place], | | | | | | [place] [address] | | | | | | [phone] | | | | | | | | +--------+---------+ + + + documented as of this encounter Visit Diagnoses Not on filedocumented in this encounter"
--- OUTSIDE RECORDS SUMMARY | ~2019-05-14 | XMS | Encounter Summary ---
Demographics + + + | Address | [address] | | | [place] [address] | + + + | Home Phone [...] + | Author | [facility] | + + + | Organization | [facility] | + + + | Address | [...] Team Providers + +------+ + | Care Enlisted Advisor Name | Role | Phone | + +------+ + | Ritesh England PA-C | PCP | | + +------+ + Encounter Details +--------+--------+ + + + | Date | Type | Department | Care Team | Description | +--------+--------+ + + + | 01/12/ | Intake | Transfer Center | | N/A | | 2018 | | [address] | | | | | | [place], | | | | | | [place] [address] | | | +--------+--------+ + + + [...] | | | | | [place], | | | | | | [place] [address] | | | | | | [phone] | | | | | | | | +--------+---------+ + + + documented as of this encounter Visit Diagnoses Not on filedocumented in this encounter"
--- OUTSIDE RECORDS SUMMARY | ~2019-05-14 | XMS | Encounter Summary ---
Demographics + + + | Address | [address] | | | [place] [address] | + + + | Home Phone [...] Team Providers + +------+ + | Care Organizational Effectiveness Consultant Name | Role | Phone | + +------+ + | Ritesh England PA-C | PCP | | + +------+ + Encounter Details +--------+--------+ + + + | Date | Type | Department | Care Team | Description | +--------+--------+ + + + | 04/25/ | Travel | | | | | 2018 | | | | | +--------+--------+ + [...] | | | | | [place], | | | | | | [place] [address] | | | | | | [phone] | | | | | | | | +--------+---------+ + + + documented as of this encounter Visit Diagnoses Not on filedocumented in this encounter"
--- OUTSIDE RECORDS SUMMARY | ~2019-05-14 | XMS | Encounter Summary ---
Demographics + + + | Address | [address] | | | [place] [address] | + + + | Home Phone | | + + + | Preferred Language | Unknown | + + + | Marital Status | Single | + + + | Methodist Affiliation | BAP | + + + | Race | White | + + + | Ethnic Group | Not or | + + + Author + + + | Author | [facility] | + + + | Organization | [facility] [employer] [facility] | + + [...] Team Providers + +------+ + | Care Mud Boss Name | Role | Phone | + +------+ + | Ritesh England PA-C | PCP | | + +------+ + Encounter Details +--------+ + + + + | Date | Type | Department | Care Team | Description | +--------+ + + + + | 11/23/ | Lab | LAB CORE [address] | Lhewa, Dekey Y, MD | | | 2018 | Requisition | [address] | [address] | | | | | [place], [place] | [address] [place], | | | | | [address] | [place] [address] | | | | | [phone] | [phone] | | | | | | | [...] | | | | | [place] | | | | | | [place] [address] | | | | | | [phone] | | | | | | | | +--------+---------+ + + + documented as of this encounter Procedures + +--------+ + + + | Procedure Name | Priori | Date/Time | Associated Diagnosis | Comments | | | ty | | | | + +--------+ + + + | LAB OTHER | Routin | 11/17/2017 | | Results for this | | | e | 9:47 AM | | procedure are in the | | | | PDT | | results section. | + +--------+ + + + documented in this encounter Results LAB OTHER (11/17/2017 9:47 AM PDT) + + + + + + | Component | Value | Ref Range | Performed | Pathologist | | | | | At | Signature | + + + + + + | MISC REF | HCV Genotype by | | [facility] | | | TEST NAME | Sequencing, EDTA Plasma | | REFERENCE | | | | | | LAB | | + + + + + + | MISC REF | 3a | | [facility] | | | TEST RESULT | | | REFERENCE | | | | | | LAB | | + + + + + + | NORMAL | | | [facility] | | | RANGE | | | REFERENCE | | | | | | LAB | | + + + + + + | REFERRAL | Test performed by AR | | [facility] | | | LAB NAME | [facility] | | REFERENCE | | | | [place] [address] | | LAB | | | | [phone] | | | | | | | | | | | | E[facility]del.[facility]ibr[facility] | | | | | | | | | | | | | | | | | | | | | | | | | | | | + + + + + + + + | Specimen | + + | Blood | + + + + + | Narrative | Performed At | + + + | See scanned | [facility] | | report for Technical Results and further Interpretation and Comments. | REFERENCE LAB | | | | | | | + + + + + + + + | Performing | Address | City/State/Zipcode | Phone Number | | Organization | | | | + + + + + | [facility] | | | | + + + + + | [facility] | see below | | | + + + + + documented in this encounter Visit Diagnoses Not on filedocumented in this encounter"
--- OUTSIDE RECORDS SUMMARY | ~2019-05-14 | XMS | Encounter Summary ---
Demographics + + + | Address | [address] | | | [place] [address] | + + + | Home Phone [...] + | Author | [facility] | + + + | Organization | [facility] | + + [...] Team Providers + +------+ + | Care Inspector Quality Assurance Name | Role | Phone | + [...] Description | +--------+--------+ + + + | 08/21/ | Refill | Surgical | Scott Delcid MD | Refill Request | | 2005 | | Dermatology [address] | | | | | | [address] | | | | | | Mailcode:OP06 | | | | | | Outpatient Clinic | | | | | | [facility], [address] | | | | | | [place], [place] | | | | | | [address] | | | | | | [phone] | | | +--------+--------+ + + + [...] | | | | | [place], | | | | | | [place] [address] | | | | | | [phone] | | | | | | | | +--------+---------+ + + + documented as of this encounter Visit Diagnoses Not on filedocumented in this encounter"
--- OUTSIDE RECORDS SUMMARY | ~2019-05-14 | XMS | Encounter Summary ---
Demographics + + + | Address | [address] | | | [place] [address] | + + + | Home Phone | | + + + | Preferred Language | Unknown | + + + | Marital Status | Single | + + + | Anabaptist Affiliation | BAP | + + + | Race | White | + + + | Ethnic Group | Not or | + + + Author + + + | Author | [facility] | + + + | Organization | [facility] | + + + [...] Team Providers + +------+ + | Care Launch Engineer Name | Role | Phone | + +------+ + PCP | Unavailable | + +------+ + Reason for Visit + + + | Reason | Comments | + + + | Prescription of | Vicodin, needs to be called in to pharmacy per pt request, thanks | + + + Encounter Details +--------+ + + + + | Date | Type | Department | Care Team | Description | +--------+ + + + + | 11/17/ | Telephone | Otolaryngology | Leon Hernandez, | Prescription of | | 2005 | | Head and Neck | [address] | (Adela, needs to | | | | Surgery Services at | [facility] | be called in to | | | | [facility] [address] | [place], [place] | pharmacy per pt | | | | [facility] | [address] | request, thanks) | | | | Mailcode: [id number] | [phone] | | | | | [facility] | | | | | | [place], [place] | | | | | | [address] | | | | | | [phone] | | | +--------+ + + + [...] | | | | | [place], | | | | | | [place] [address] | | | | | | [phone] | | | | | | | | +--------+---------+ + + + documented as of this encounter Visit Diagnoses + + | Diagnosis | + + | 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
--- OUTSIDE RECORDS SUMMARY | ~2019-05-14 | XMS | Encounter Summary ---
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 | + + + Benefits Check (Routine) [...] [address] | | | | | | [place], [place] | [address] | | | | | | [address] | [place], [place] | | | | | | | [address] | | | | | | | Phone: | | | | | | | [phone] | | | | | | | Fax: | | | | | | | [phone] | +--------+--------+ + + + + Encounter Details +--------+---------+ + + + | Date | Type | Department | Care Team | Description | +--------+---------+ + + + | 02/06/ | Office | Otolaryngology | Shlomo Roach MD | Mechanical Ectropion | | 2005 | Visit | Head and Neck | [address] | (Primary Dx) | | | | Surgery Services at | [address] [place], | | | | | [address] [address] [facility] | [place] [address] | | | | | [address] | [phone] | | | | | Mailcode: [address]01 | | | | | | [facility] | | | | | | [place], [place] | | | | | | [address] | | | | | | [phone] | | | +--------+---------+ + + + [...] + + + | Blood Pressure | 140/88 | 02/06/2006 4:43 PM | | | | | PDT [...] + + + + | Weight | 79.2 kg (174 lb 8 | 02/06/2006 4:43 PM | | | | oz) | PDT | | + + + + + | Height | - | - | | + + + + + | Body Mass Index | 26.53 | 09/17/2005 2:39 PM | | | | | PST | | + + + + + documented in this encounter Shlomo Douglas - 02/06/2006 5:19 PM PDTThis office note has been dictated. documented in this encounter Plan of Treatment +--------+---------+ + + + | Date | Type | Specialty | Care Team | Description | +--------+---------+ + + + | 06/17/ | Office | Otolaryngology | Shlomo Roach MD | | | 2019 | Visit | | [address] | | | | | | [place], | | | | | | [place] [address] | | | | | | [phone] | | | | | | | | +--------+---------+ + + + documented as of this encounter Visit Diagnoses + + | Diagnosis | + + | Mechanical ectropion - Primary | + + documented in this encounter"
--- OUTSIDE RECORDS SUMMARY | ~2019-05-14 | XMS | Encounter Summary ---
Demographics + + + | Address | [address] | | | [place] [address] | + + + | Home Phone [...] + + + | Author | [facility] | + + + | Organization | [facility] | + + + | Address | [...] Team Providers + +------+ + | Care Armored Car Guard Name | Role | Phone | + [...] | Surgery Services at | [place], | (Primary Dx) | | | | [facility] [address] [facility] | [place] [address] | | | | | [address] | [phone] | | | | | Mailcode: [address]01 | | | | | | [facility] | | | | | | [place], [place] | | | | | | [address] | | | | | | [phone] | | | +--------+---------+ + + + [...] Pressure | 165/94 | 08/07/2017 2:32 PM | | | | | PST | | + + + + + | Pulse | 54 | 08/07/2017 2:32 PM | | | | | PST [...] (143 lb 14.4 | 08/07/2017 2:32 PM | | | | oz) | PST | | + + + + + | Height | - | - | | + + + + + | Body Mass Index | 22.54 | 04/22/2017 6:16 PM | | | [...] not getting better in the next w atka or so or if he does not continue to improve or is getting worse, etc., he should call me , and we will arrange for something to do about that. Otherwise, this is stable, and I thin k he is stable. MD TELLY Delgadillo/SABRA /[id number] signed by Shlomo Roach MD at 08/10/2017 12:10 PM PSTWax Shlomo MD - 08/07/2017 3:00 PM PSTDictation #1 [id number] signed by Shlomo Roach MD at 08/07/2017 3:44 PM PSTdocumented in this en counter Plan of Treatment +--------+---------+ + + + | Date | Type | Specialty | Care Team | Description | +--------+---------+ + + + | 06/17/ | Office | Otolaryngology | Shlomo Roach MD | | | 2019 | Visit | | [address] | | | | | | [place], | | | | | | [place] [address] | | | | | | [phone] | | | | | | | | +--------+---------+ + + + documented as of this encounter Procedures + +--------+ + + + | Procedure Name | Priori | Date/Time | Associated Diagnosis | Comments | | | ty | | | | + +--------+ + + + | OUTSIDE CARDIOLOGY | | 08/07/2017 | | Results for this | | | | 12:00 AM | | procedure are in the | | | | PST | | results section. 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
--- OUTSIDE RECORDS SUMMARY | ~2019-05-14 | XMS | Encounter Summary ---
Demographics + + + | Address | [address] | | | [place] [address] | + + + | Home Phone [...] Team Providers + +------+ + | Care Loadmaster Name | Role | Phone | + [...] | | | | | [place], | | | | | | [place] [address] | | | | | | [phone] | | | | | | | [...] | Transcriptions | + + | Interface, Boiler Reliner In - 09/26/2005 2:07 AM PST | | [id number] | | [id number] CHITRA ANN | | | | Date: 09/18/2005 | | | | Attending Surgeon: Leon Hernandez M.D. | | | | Coil Connector(s): Conor Huggins MD | | | | | | Preoperative Diagnosis(es): | | Right auricular squamous cell carcinoma. | | | | Postoperative Diagnosis(es): | | Right auricular squamous cell carcinoma. | | | | Procedures Performed: | | 1. Wide local excision of squamous cell carcinoma including total | | auriculectomy along with a right mini middle fossa craniectomy, and | | partial excision of the zygoma (lateral temporal bone resection | | performed by Dr. Roberth Aponte. Please see his separately dictated | | note). | | 2. Right selective neck dissection including levels 1B, 2A, 2B, and 3. | | | | | | Anesthesia: | | General endotracheal anesthesia. | | | | Estimated Blood Loss: | | 100 cc. | | | | Findings: | | 1. There is a deeply invasive tumor involving the auricle based | | primarily at the root of the helix but extending out approximately 3 | | cm in greatest diameter. | | 2. The depth of the tumor invasion included portions of the temporalis | | muscle, therefore the muscle was resected along with the specimen. | | 3. Depth of the invasion also involved the zygomatic root, therefore the | | mini middle fossa craniectomy was required to get a superior bone | | margin around the tumor. | | 4. There were multiple palpable lymph nodes within the level 2 neck, | | therefore the decision was made to perform the selective neck | | dissection listed above. | | | | | | Complications: | | None. | | | | Specimens: | | | | Indications: | | Mr. Michaels is a 45-year-old gentleman who was found to have a squamous cell | | carcinoma of skin of the auricle. Given the depth of invasion seen on | | preoperative imaging, the decision was made to proceed with excision to | | include a lateral temporal bone resection and parotidectomy. At the time | | of the surgery, palpable lymph nodes were found in the neck, therefore the | | neck selective neck dissection was performed as well. This case was | | performed in conjunction with Dr. Shlomo Roach who performed a microvascular | | reconstruction as well as Dr. Roberth Aponte who performed the lateral | | temporal bone resection and parotidectomy. Please see their separately | | dictated notes. | | | | Procedure: | | The patient was identified in the operating room and was in the supine | | position. Dr. Roberth Aponte had performed lateral temporal bone resection | | and parotidectomy, at which point the case was turned over to us. An | | approximately, 2 cm margin around the lesion was drawn with a skin marker. | | The postauricular incision was extended superiorly around the tumor and | | then anteriorly around the tumor as well which joined into the | | parotidectomy incision. The incision was deepened through the skin, | | subcutaneous tissue, temporalis fascia, and temporalis muscle down to the | | squamous of the temporal bone in all of these regions. Anteriorly, the | | dissection deepened down to the zygoma in its midportion. A Gigli saw was | | then used to cut through the zygoma in this region. The Gigli saw was then | | used to make a slightly posterior cut to this in order to excise the | | segment of the zygoma. The temporalis muscle was then elevated off the | | squamous from superior to inferior direction down to approximately 1 cm | | superior to the tegmen mastoideum. In this region, the bone of the tegmen | | mastoideum was removed, and Kerrison rongeurs were used to extend the bony | | resection to involve the portion of the squamous of the temporal bone | | exposing the middle fossa dura. This line of resection continued | | superiorly over the tumor and then directed inferiorly anterior to the | | tumor and lead to the zygomatic root anterior to where the tumor was | | involving it. A high-speed drill was then used to remove the posterior | | portion of the zygoma between the cut made by the Gigli saw and anterior to | | the tumor. As this dissection continued inferiorly, the middle fossa dura | | was seen to course medially away from the zone of resection. A bone chisel | | was then used to make inferiorly directed cut of the bone directly into the | | temporomandibular joint. The temporomandibular capsule was then excised | | off its posterior attachments. This fully mobilized the lateral temporal | | bone segment. Attention was then drawn towards the inferior portion of the | | resection. The main trunk of the facial nerve was seen coursing out of the | | stylomastoid foramen where Dr. Aponte had isolated it. Superior to this, | | the external carotid artery was identified deep to the plane of nerve, at | | this point it was clamped and ligated. The intervening parotid tissue | | between this level of resection and the bony cut made along the inferior | | tympanic annulus was then divided with special care to cauterize all of the | | vascular attachments in this area. Of note, there was not significant | | bleeding because the external carotid artery had already been ligated. | | This dissection continued down into the temporomandibular joint and thus | | released the entire specimen from the patient which was then taken to the | | back table. The wound was then inspected, and the tympanic membrane was | | found still be attached to the anterior annulus. An otologic round knife | | was used to elevate the remaining tympanic membrane off the anterior | | annulus and removed it. No other remnants of the lateral temporal bone | | resection and specimen remained. Attention was then drawn towards the | | right neck dissection. Subplatysmal flaps had already been started with | | the parotidectomy. This was extended further anteriorly and inferiorly. | | The marginal mandibular nerve was found coursing along the level of the | | mandible, and the fascia overlying it was divided allowing it to be | | retracted superiorly. Dissection anterior to this was deepened down to a | | supraperiosteal plane along the body of the mandible and carried | | anteriorly. This level of dissection was then deepened down to the | | mylohyoid muscle. The anterior belly of the digastric muscle was then | | skeletonized by dividing its overlying fascia. The intervening neck | | contents were then dissected off the mylohyoid muscle from an anterior to | | posterior direction. The mylohyoid was then retracted anteriorly. The | | lingual and hypoglossal nerves were identified. The submandibular ganglion | | was divided off the lingual nerve. The submandibular duct was clamped and | | ligated. The gland was then elevated out of the neck and dissection | | continued posteriorly taking care to spare the hypoglossal and lingual | | nerves. The level 1B contents were then further elevated out of the neck | | and dissection continued posteriorly until the facial artery and vein were | | clamped and ligated as they coursed over the mandible. Dissection | | continued further posteriorly until the facial artery was again | | encountered. It was clamped and ligated again in this region. Dissection | | along the digastric then continued posteriorly until it met up with the | | sternocleidomastoid muscle. The fascia overlying the anterior portion of | | the sternocleidomastoid muscle was then divided, and this plane of | | dissection was deepened until the spinal accessory nerve was identified. | | The fascia overlying the nerve was transected. The level 2B nodes were | | then addressed by dissecting down to the muscular layer and reflecting them | | anteriorly and under the spinal accessory nerve. Special care was taken to | | identify the internal jugular vein in the superior portion of this | | dissection and preserve it. Inferior to the spinal accessory nerve level, | | dissection was deepened down to the cervical rootlets. This dissection was | | carried inferiorly to the level of the omohyoid muscle. The fatty contents | | were then swept anteriorly as they were dissected off the rootlets up to | | the internal jugular vein. The fascia overlying the vein were then | | divided, and the vein was skeletonized for 180 degrees around its | | parameter. The ansa hypoglossi nerve was then identified anterior to this, | | and the plane of dissection continued along the ansa hypoglossi and the | | strap musculature anterior to this moving from an inferior to superior | | direction. As this dissection continued, the common facial trunk was | | identified and preserved. As the dissection continued further superiorly, | | the hypoglossal nerve was identified and preserved, and the neck contents | | were divided off their final attachments to the strap musculature and the | | digastric muscle and passed off the table. At this point, the case was | | turned over to Dr. Shlomo Pop for the microvascular reconstructive portion of | | the case. See their separately dictated note for the details. | | | | Disposition: | | The patient tolerated the procedure well and remained in the operating room | | for the rest of case. | | | | Dr. Leon Hernandez was present and scrubbed for the critical portions of | | the case. | | | | | | | | | | Conor Huggins MD | | | | | | | | Leon Hernandez M.D. | | | | / HS | | [id number] / [id number] / [id number] / | | | | | | | | | | | | Electronically signed by Leon Hernandez 09-25-2005 10:35:23 AM | + + documented in this encounter Visit Diagnoses Not on filedocumented in this encounter"
--- OUTSIDE RECORDS SUMMARY | ~2019-05-14 | XMS | Encounter Summary ---
Demographics + + + | Address | [address] | | | [place] [address] | + + + | Home Phone [...] + + | Author | [facility] | + + + | Organization | [facility] | + + + [...] Team Providers + +------+ + | Care Home Health Care Social Worker Name | Role | Phone | + [...] | | Coordinators [address] | MD [address] | | | | | [address] Angelica | [place], [place] | | | | | [place], [place] | [address] | | | | | [address] | [phone] | | | | | [phone] | | | +--------+ + + + [...] | | | | | Angelica Caal [place], | | | | | | [place] [address] | | | | | | [phone] | | | | | | | [...] Results LIVER TRANSPLANT POST PANEL (EXT RESULTS) (10/24/2014 12:15 PM PDT) + + + + + + | Component | Value | Ref Range | Performed | Pathologist | | | | | At | Signature | + + + + + + | SODIUM, | 140 | mmol/L | [facility] | | | PLASMA | | | LAB - | | | (LAB) | | | [place] | | + + + + + + | POTASSIUM, | 5.0 | mmol/L | [facility] | | | PLASMA | | | LAB - | | | (LAB) | | | [place] | | + + + + + + | CHLORIDE, | 102 | mmol/L | [facility] | | | PLASMA | | | LAB - | | | (LAB) | | | [place] | | + + + + + + | TOTAL CO2, | 28 | mmol/L | [facility] | | | PLASMA | | | LAB - | | | (LAB) | | | [place] | | + + + + + + | GLUCOSE, | 87 | 65 - 110 mg/dL | [facility] | | | PLASMA | | | LAB - | | | (LAB) | | | [place] | | + + + + + + | BUN, PLASMA | 12 | mg/dL | [facility] | | | (LAB) | | | LAB - | | | | | | [place] | | + + + + + + | CREATININE | 1.00 | mg/dL | [facility] | | | PLASMA | | | LAB - | | | (LAB) | | | [place] | | + + + + + + | CALCIUM, | 9.1 | mg/dL | [facility] | | | PLASMA | | | LAB - | | | (LAB) | | | [place] | | + + + + + + | TOTAL | 6.2 | g/dL | [facility] | | | PROTEIN, | | | LAB - | | | PLASMA | | | [place] | | | (LAB) | | | | | + + + + + + | ALBUMIN, | 4.1 | g/dL | [facility] | | | PLASMA | | | LAB - | | | (LAB) | | | [facility] | | + + + + + + | BILIRUBIN | 0.4 | Transcutaneous | [facility] | | | TOTAL | | Bilirubinometer | LAB - | | | | | | OLVIN | | + + + + + + | ALK PHOS | 66 | U/L | [facility] | | | | | | LAB - | | | | | | OLVIN | | + + + + + + | AST(SGOT) | 37 | U/L | [facility] | | | | | | LAB - | | | | | | [facility] | | + + + + + + | ALT (SGPT) | 35 | U/L | [facility] | | | | | | LAB - | | | | | | [facility]LV[facility] | | + + + + + + | WHITE CELL | 3.4 | K/cu mm | [facility] | | | COUNT | | | LAB - | | | | | | OLVIN | | + + + + + + | HEMATOCRIT | 43.1 | % | [facility] | | | | | | LAB - | | | | | | OLVIN | | + + + + + + | HEMOGLOBIN | 14.3 | 13.5 - 17.5 | [facility] | | | | | g/dL | LAB - | | | | | | OLVIN | | + + + + + + | PLATELET | 119 | K/cu mm | [facility] | | | COUNT | | | LAB - | | | | | | OLVIN | | + + + + + + | HIV-1/HIV2 | non reactive | | [facility] | | | AB SCREEN | | | LAB - | | | | | | OLVIN | | + + + + + + | PROTHROMBIN | 12.5 | | [facility] | | | TIME | | | LAB - | | | | | | OLVIN | | + + + + + + | INR | 0.9 (A) | 0.98 - 1.08 INR | [facility] | | | | | | LAB - | | | | | | OLVIN | | + + + + + [...] | + + + + + | [facility] - | [address] | [place] | [phone] | | [place] | | | | + + + + + documented in this encounter Visit Diagnoses Not on filedocumented in this encounter"
--- OUTSIDE RECORDS SUMMARY | ~2019-05-14 | XMS | Encounter Summary ---
Demographics + + + | Address | [address] | | | [place] [address] | + + + | Home Phone [...] Author | [facility] [employer] [facility] | + + + | Organization | [facility] | + + + [...] Team Providers + +------+ + | Care Collections Officer Name | Role | Phone | + +------+ + PCP | Unavailable | + +------+ + Encounter Details +--------+ + + + + | Date | Type | Department | Care Team | Description | +--------+ + + + + | 09/18/ | Results | Otolaryngology | Shlomo Roach MD | | | 2005 | Only | Head and Neck | [address] | | | | | Surgery Services at | [facility], | | | | | PPV [address] | [place] [address] | | | | | [address] | [phone] | | | | | Mailcode: PV01 | | | | | | Josefina Valdes | | | | | | [place], [place] | | | | | | [address] | | | | | | [phone] | | | +--------+ + + + [...] | | | | | Angelica Caal [place], | | | | | | [place] [address] | | | | | | [phone] | | | | | | | | +--------+---------+ + + + documented as of this encounter Procedures + +--------+ + + + | Procedure Name | Priori | Date/Time | Associated Diagnosis | Comments | | | ty | | | | + +--------+ + + + | X-RAY SKULL 1 VIEW | Routin | 09/18/2005 | | Results for this | | | e | 9:06 PM | | procedure are in the | | | | PST | | results section. | + +--------+ + + + | X-RAY ABDOMEN 1 VIEW | Routin | 09/18/2005 | | Results for this | | | e | 9:06 PM | | procedure are in the | | | | PST | | results section. | + +--------+ + + + documented in this encounter Results ABDOMEN 1 VIEW (09/18/2005 9:06 PM PST) + + + + + + | Component | Value | Ref Range | Performed | Pathologist | | | | | At | Signature | + + + + + + | ABDOMEN, 1 | Radiologist 1: GWENDOLYN, | | | | | VIEW (PRASHANT) | Puneet BOWERSAP supine | | | | | | abdomen radiograph: | | | | | | 09/18/05. Comparison: | | | | | | None. Clinical | | | | | | History: Post-op. | | | | | | Findings: The bowel | | | | | | gas pattern is normal. | | | | | | There is | | | | | | noradiographic evidence | | | | | | of bowel obstruction. To | | | | | | right abdominaldrains | | | | | | and the Escalante catheter | | | | | | are noted. Surgical | | | | | | clips are seenin the mid | | | | | | and lower right | | | | | | abdomen. No radiopaque | | | | | | densities seento | | | | | | suggest | | | | | | intra-abdominal | | | | | | foreign body. No | | | | | | organomegaly is seen.No | | | | | | abnormal calcifications | | | | | | are identified. | | | | | | IMPRESSION: Post-op | | | | | | changes, without | | | | | | evidence of radiopaque | | | | | | foreign body.. END | | | | | | IMPRESSION | | | | + + + + + + + + | Specimen | + + | | + + + +---------+ + + | Performing | Address | City/State/Zipcode | Phone Number | | Organization | | | | + +---------+ + + | [facility] DEPARTMENT OF | | | | | RADIOLOGY | | | | + +---------+ + + SKULL 1 VIEW (09/18/2005 9:06 PM PST) + + + + + + | Component | Value | Ref Range | Performed | Pathologist | | | | | At | Signature | + + + + + + | SKULL 2 | Radiologist 1: QUEENIE, | | | | | VIEWS WO | RICHA [place], | | | | | STEREO | M.D.-Radiologist 2: | | | | | | RICHA JEROME, | | | | | | M.D.EXAM: One view skull | | | | | | HISTORY: Lost gauze | | | | | | in [place] TECHNIQUE: Single | | | | | | portable view of the | | | | | | skull was performed | | | | | | COMPARISON: No priors | | | | | | FINDINGS: There is | | | | | | extensive soft tissue | | | | | | swelling in the right | | | | | | faceand neck and gas | | | | | | related to recent | | | | | | surgery. There is a | | | | | | string-likedensity in | | | | | | the lower right neck, | | | | | | likely representing a | | | | | | markder onsurgical | | | | | | gauze. Several | | | | | | drainage catheters are | | | | | | present in the | | | | | | softtissues of the right | | | | | | neck. Two surgical | | | | | | micro clips as well as | | | | | | alarger staple are | | | | | | present in the lower | | | | | | right neck. | | | | | | IMPRESSION:Surgical | | | | | | changes in the right | | | | | | neck. There is a | | | | | | string-likedensity in | | | | | | the lower right neck, | | | | | | likely representing | | | | | | surgicalgauze. | | | | + + + + + + + + | Specimen | + + | | + + + +---------+ + + | Performing | Address | City/State/Zipcode | Phone Number | | Organization | | | | + +---------+ + + | [facility] DEPARTMENT OF | | | | | RADIOLOGY | | | | + +---------+ + + documented in this encounter Visit Diagnoses Not on filedocumented in this encounter"
--- OUTSIDE RECORDS SUMMARY | ~2019-05-14 | XMS | Encounter Summary ---
Demographics + + + | Address | [address] | | | [place] [address] | + + + | Home Phone [...] + + | Author | [facility] | + + + | Organization | [facility] | + + [...] Team Providers + +------+ + | Care Dispatcher Street Department Name | Role | Phone | + +------+ + | Ritesh England PA-C | PCP | | + +------+ + Reason for Visit + + + | Reason | Comments | + + + | Liver Transplant | HCV treatment plan | | Follow Up | | + + + Encounter Details +--------+ + + + + | Date | Type | Department | Care Team | Description | +--------+ + + + + | 11/23/ | Documentati | Transplant | Yvette Perkins RN | Liver Transplant | | 2017 | on | Coordinators [address] | [address] | Follow Up (HCV | | | | [address] | [address] [place], | treatment plan) | | | | [place], [place] | [place] [address] | | | | | [address] | | | | | | [phone] | | | +--------+ + + + [...] | | | | | | [place] [address] | | | | | | [phone] | | | | | | | | +--------+---------+ + + + documented as of this encounter Visit Diagnoses Not on filedocumented in this encounter"
--- OUTSIDE RECORDS SUMMARY | ~2019-05-14 | XMS | Encounter Summary ---
Demographics + + + | Address | [address] | | | [place] [address] | + + + | Home Phone [...] + + | Author | [facility] [employer] [facility] | + + + | Organization | [facility] | + + + | Address [...] Team Providers + +------+ + | Care Budget Analyst Name | Role | Phone | + +------+ + | Ritesh England PA-C | PCP | | + +------+ + Encounter Details +--------+ + + + + | Date | Type | Department | Care Team | Description | +--------+ + + + + | 02/16/ | Pharmacy | Outpatient Retail | | | | 2018 | Visit | [facility] | | | | | | [address] | | | | | | [place], | | | | | | [place] [address] | | | +--------+ + + + [...] | | | | | Angelica Caal [facility] | | | | | | [place] [address] | | | | | | [phone] | | | | | | | | +--------+---------+ + + + documented as of this encounter Visit Diagnoses Not on filedocumented in this encounter"
--- OUTSIDE RECORDS SUMMARY | ~2019-05-14 | XMS | Encounter Summary ---
Demographics + + + | Address | [address] | | | [place] [address] | + + + | Home Phone | | + + + | Preferred Language | Unknown | + + + | Marital Status | Single | + + + | Congregation Affiliation | BAP | + + + | Race | White | + + + | Ethnic Group | Not or | + + + Author + + + | Author | [email or web address] | + + + | Organization | [facility] | + + + [...] Team Providers + +------+ + | Care Retail Route Supervisor Name | Role | Phone | + +------+ + | Ritesh England PA-C | PCP | | + +------+ + Encounter Details +--------+ + + + + | Date | Type | Department | Care Team | Description | +--------+ + + + + | 07/31/ | Ancillary | Registration [address] | | | | 2005 | Registratio | [address] | | | | | n | Ten Mailcode: [id number] | | | | | | [place], [place] | | | | | | [address] | | | | | | [phone] | | | +--------+ + + + [...] | | | | | Angelica Ca[place], | | | | | | [place] [address] | | | | | | [phone] | | | | | | | | +--------+---------+ + + + documented as of this encounter Visit Diagnoses Not on filedocumented in this encounter"
--- OUTSIDE RECORDS SUMMARY | ~2019-05-14 | XMS | Encounter Summary ---
Demographics + + + | Address | [address] | | | [place] [address] | + + + | Home Phone | | + + + | Preferred Language | Unknown | + + + | Marital Status | Single | + + + | Mu-Ism Affiliation | [id number] | + + + | Race | Unknown | + + + | Ethnic Group | Unknown | + + + Author + + + | Author | [facility] | | | and [place] | + + + | Organization | [facility] | | | and [place] | + + + | Address | Unknown | + + + | Phone | Unavailable | + + + Support + + + + + | Name | Relationship | Address | Phone | + + + + + | Brenda Jones | ECON | [place] | | | | | [address] | | + + + + + | Katarzyna Luke | ECON | , [place] | | + + + + + | chele townsend | ECON | Unknown | | + + + + + Care Team Providers + +------+ + | Care Svp Of Digital Name | Role | Phone | + [...] | Radiology | Diagnoses | | [facility] | | | | | Essential | [place], | Medicine | | | | | hypertension | SHANDRA PerkinsP | [address] | | | | | Chest | [address] | [place], | | | | | pain, | [place] | [place] | | | | | unspecified | [place], | [address] | | | | | type | [place] | Phone: | | | | | Procedures | [address] | [phone] | | | | | [place] Nuclear | Phone: | Fax: | | | | | Stress Test | [phone] | [phone] | | | | | (Vasodilator | Fax: | | | | | | ) | [phone] | | +--------+--------+ + + + + Diagnostic/Screening (Routine) +--------+--------+ + + + + | Status | Reason | Specialty | Diagnoses / | Referred By | Referred To | | | | | Procedures | Contact | Contact | +--------+--------+ + + + + | Closed | | Radiology | Diagnoses | | [facility] | | | | | Essential | [place], | Medicine | | | | | hypertension | Maddie, MAINTENANCE SCHEDULER | [address] | | | | | Chest | [address] | [place], | | | | | pain, | [place] | [place] | | | | | unspecified | [place], | [address] | | | | | type | [place] | Phone: | | | | | Procedures | [address] | [phone] | | | | | [place] Nuclear | Phone: | Fax: | | | | | Stress Test | [phone] | [phone] | | | | | (Vasodilator | Fax: | | | | | | ) | [phone] | | +--------+--------+ + + + + Reason for Visit Diagnostic/Screening (Routine) +--------+--------+ + + + + | Status | Reason | Specialty | Diagnoses / | Referred By | Referred To | | | | | Procedures | Contact | Contact | +--------+--------+ + + + + | Closed | | Radiology | Diagnoses | | [facility] | | | | | Essential | [place], | Medicine | | | | | hypertension | Maddie MAINTENANCE SCHEDULER | [address] | | | | | Chest | [address] | [place], | | | | | pain, | [place] | [place] | | | | | unspecified | [place], | [address] | | | | | type | [place] | Phone: | | | | | Procedures | [address] | [phone] | | | | | [place] Nuclear | Phone: | Fax: | | | | | Stress Test | [phone] | [phone] | | | | | (Vasodilator | Fax: | | | | | | ) | [phone] | | +--------+--------+ + + + + Encounter Details +--------+ + + + + | Date | Type | Department | Care Team | Description | +--------+ + + + + | 02/22/ | Hospital | [facility] | Nell, | Essential | | 2019 | Encounter | MED CTR NUCLEAR | BELEM Perkins [address] | hypertension; Chest | | | | MEDICINE [address] | [place], | pain, unspecified | | | | [place], | [place] [address] | type | | | | [place] [address] | [phone] | | | | | [phone] | | | | | | | Detonator MakerHerbert | | +--------+ + + + + [...] Blood Pressure | - | - | + + + + | Pulse | - | - | + + + + | Temperature | - | - | + + + + | Respiratory Rate | - | - | + + + + | Oxygen Saturation | - | - | + + + + | Inhaled Oxygen | - | - | | Concentration | | | + + + + | Weight | 71.7 kg (158 lb) | 02/22/2019 1000 PDT | + + + + | Height | - | - | + + + + | Body Mass Index | 24.02 | 12/08/2018 1144 PDT | + + + + documented [...] [place], | | | | | | [place] [address] | | | | | | [phone] | | | | | | | [...] + + documented in this encounter Results [place] Nuclear Stress Test (Vasodilator) (02/22/2019 11:59 [...] | | | + +--------+ +-------+------+------+ | aminophylline injection 75 mg | Given | 02/23/20 | 75 mg | | | | 75 mg, Intravenous, ONCE PRN, per | | 19 10:40 | | | | | doctor, Starting 02/22/19 at | | PDT | | | | | 1039, For 1 dose, Nuclear | | | | | | | Medicine | | | | | | + +--------+ +-------+------+------+ +---+---+ | | | +---+---+ + +-------+ + +--------+---+ | dipyridamole (PERSANTINE) 60mg | Given | 02/23/20 | 10.1814 | 407.3 | | | in 40 mL NS syringe 0.142 | | 19 11:00 | mg/min | mL/hr | | | mg/kg/min | | PDT | | | | | 71.7 kg (407.256 mL/hr, rounded | | | | | | | to 407.3 mL/hr), Intravenous, | | | | | | | Administer over 4 Minutes, ONCE, | | | | | | | 02/22/19 at 1100, For 1 dose, | | | | | | | Nuclear Medicine | | | | | | + +-------+ + +--------+---+ +---+---+ | | | +---+---+ + +-------+ + +---+---+ | technetium TC-99M sestamibi | Given | 02/23/20 | 10.9 | | | | (CARDIOLITE) injection 10.9 | | 19 10:39 | millicur | | | | millicurie 10.9 millicurie, | | PDT | ies | | | | Intravenous, ONCE PRN, Other, | | | | | | | Starting 02/22/19 at 1039, For | | | | | | | 1 dose, Nuclear Medicine | | | | | | + +-------+ + +---+---+ +---+---+ | | | +---+---+ documented in this encounter"
--- OUTSIDE RECORDS SUMMARY | ~2019-05-14 | XMS | Encounter Summary ---
Demographics + + + | Address | [address] | | | [place] [address] | + + + | Home Phone [...] + + | Author | [facility] | + + + | Organization | [facility] | + + [...] Providers + +------+ + | Care Manager Mail Name | Role | Phone | + +------+ + | Sylvester Scherer DO | PCP | | + +------+ + Reason for Visit + + + | Reason | Comments | + + + | HCC Screening | 10/09/15 CT scan | + + + Encounter Details +--------+ + + + + | Date | Type | Department | Care Team | Description | +--------+ + + + + | 10/09/ | Abstract | Transplant | Sabrina Guzman, | HCC Screening | | 2016 | | Coordinators [address] | RN [address] | (10/09/15 CT scan) | | | | [address] [facility] | [facility] | | | | | [place], [place] | [place], [place] | | | | | [address] | [address] | | | | | [phone] | | | +--------+ + + + [...] + + documented as of this encounter Aure Mancini - 10/10/2015 1:[address] [facility] images pushed and reports scanned and attached. documented in this encounter Plan of Treatment +--------+---------+ + + + | Date | Type | Specialty | Care Team | Description | +--------+---------+ + + + | 06/17/ | Office | Otolaryngology | Shlomo Roach MD | | | 2019 | Visit | | [address] | | | | | | [place] | | | | | | [place] [address] | | | | | | [phone] | | | | | | | | +--------+---------+ + + + documented as of this encounter Visit Diagnoses Not on filedocumented in this encounter"
--- OUTSIDE RECORDS SUMMARY | ~2019-05-14 | XMS | Encounter Summary ---
Demographics + + + | Address | [address] | | | [place] [address] | + + + | Home Phone [...] + + | Author | [facility] | + + + | Organization | [facility] [employer] [facility] | + [...] Team Providers + +------+ + | Care Grain Manager Name | Role | Phone | [...] + + + + | 03/03/ | Hospital | [address] | Shlomo Roach MD | | | 2018 - | Encounter | [address] | [address] | | | | | [facility] | [address] [place], | | | 03/04/ | | [place], [place] | [place] [address] | | | 2018 | | [address] | [phone] | | | | | [phone] | | | +--------+ + + + [...] him feel nauseated.He has not seen his order to delivery supervisor for the past year. Cardiology recommended the [...] importance of following up with his prior order to delivery supervisor in 1-2 we eks. All reports were given to the patient. He agreed he would be compliant with his medicat ions and follow up with his order to delivery supervisor. He was given a prescription of Amlodipine, Lasix a nd Coreg till he follow up with his outpatient order to delivery supervisor, as he was out of the medication s. Cardiology cleared him for the procedure. The patient was taken to the OR on 03/03/2018 for the above procedures. During the procedure, no complications were noted. At the end of the procedure, the patient was extubated, and tr ansferred to the post-anesthesia care unit. Once recovered, the patient was transferred to [facility] post-surgical patten where he remained for [...] Prescriptions sent by mail will take 3 d ays. Prescriptions to be picked up [...] Special instructions: Please follow up with your order to delivery supervisor within one to 2 weeks regarding the appropriate med ications for your heart condition. The cardiologists here have recommended the following: an AHMET Inhibitor. HOW TO REACH US: Thursday- Thursday from 8:00am to 4:30pm, call the Otolaryngology clinic at [phone]. After hours, weekends, and holidays, call the [facility] mill operator helper at [phone] and as k to have the ENT doctor on-call paged Schedule the following appointment(s) when you get home Maxwell Hendrix III, MD. Specialty: Otolaryngology Why: We have scheduled your follow up appointment with Dr. Arreola on 03/29 at 2:15 pm, if yo u are unable to make to this appointment please contact our office to reschedule Contact information [address] [place] [address] Future Appointments Date Time Provider Department Center 03/29/2018 2:15 PM Everardo Hendrix III, MD [facility] Otolaryngolo Consults obtained:Metal Framer Pertinent imaging:In [facility] EKG: Last EKG January 13 showed sinus [...] and Neck Surgery Mail Code PV01 [address] [place] [address] Pager [phone] Consult/Night/Weekend Pager: [phone] A copy of this discharge summary was routed to his order to delivery supervisor. documented in this encounter Medications at Time [...] tablet by | 30 | 0 | 20 | | | multivitamin-mineral | mouth once daily. | tablet | | 18 | | | s oral tablet | | | | | | + + + +---------+ + + | polyethylene | Mix 1 packet and | 60 | 0 | /20 | | | glycol 17 gram oral [...] re port to follow. [facility] Plan of Treatment +--------+---------+ + + + | Date | Type | Specialty | Care Team | Description | +--------+---------+ + + + | 06/17/ | Office | Otolaryngology | Shlomo Roach MD | | | 2019 | Visit | | [address] | | | | | | [place], | | | | | | [place] [address] | | | | | | [phone] | | | | | | | [...] | + +--------+ + + + | ROTATIONAL FLAP | Electi | | Squamous cell | | | FACE/ SCALP | ve | | carcinoma of skin of | | | | Surgic | | scalp | | | | al | | [...] and present in the operating room suite.EVAN Delgadillo/MICHAELD: 03/05/2018 | | 11:37:20DT: 03/05/2018 11:58:36Job #: [id number] | | | | | | | |Shlomo Roach MD | |TELLY/SABRA | | | | | | /[id number] | + + PROCEDURE NOTE (03/04/2018 4:18 PM PDT)PROCEDURE NOTE (03/04/2018 12:43 PM PDT) + + + | Narrative | Performed At | + + + | Everardo Hendrix III, MD 03/04/2018 1:28 PM OTOLARYNGOLOGY | | | Head and Neck Surgery Final Operative Note Date: 03/04/2018 | | | Attending Surgeon: Kelsie Hendrix III, MD Administrative Dietitian(s): | | | Milvia Spencer Preoperative Diagnosis(es): [...] keratosisB. Skin, right | | PATHOLOGY | [place], | | | neck lesion, excisional | | | MD,PhD on | | | biopsy: Squamous cell [...] by:Pia | | | | | | Reji - Medical | | | | | | Student FellowArlen | | | | | | Puneet [...] number | | | | | | [id number]. Arm, left | | | | | [...] | + + + + + | [facility] | [address] | [place] [address] | | | PATHOLOGY | [address] [...] DEPT OF | [address] | [place], [place] | | | CARDIOLOGY | [address] | [address] | | + + + + + [...] formed At | + +---- + | [facility] | [facility] DEPT OF | | [facility] Adult Echocardiography Laboratory [address] | CAR DIOLOGY | | [place], [place] [address] Ph: | | | Pt Name: MARISSA BUENROSTRO JR. | | | Study Date/Time 03/03/2018 / 1:44:11 PMMRN: [id number] | | | Most recent prior: -Acc #: [id number] | | | No. previous echos: 0DOB: 1960 58 years | | | Heart Rate: 90 bpmHeight: 68.0 in | | | Blood Pressure: 159/99 mm/HgWeight: 130.0 lb | | | Gender: MBSA: 1.70 m2 | | | Order ID: [id number] Messaging Architect: Kb | | | Meena TADEOSonographer 2:Referring Provider: Mart Ernst | | | [facility] Performed: 2D, Color flow, Spectral Doppler and | | | Strain.Study Quality: Good.Exam Indication: Heart failureHistory: 58 | | | y.o. male with history of ETOH cirrhosis and HCV s/p OLT (2012), | | | chronic immunosuppression, systolic heart failure, HTN, CKD, and | | | multiple recurrent squamous cell carcinomas Patient history has been | | | obtained from the [facility] Transthoracic Echocardiographic Report | | | + [...] fraction is 65.7 % as measured by Gavirai's | | | biplane method.Atria: Left atrial [...] | | | Report electronically signed by: [id number] Andreas Denny MD (03/03/2018, | | | [...] | | | |Report electronically signed by: [id number] Andreas Denny MD (03/03/2018, 3:36:52 PM) | | |Fellow(s) participating in diagnosis: Thien Huston; | | | | | | | | | | | | Final | | + +---- + + + | Procedure Note | + + | Interface, Cardiology Results - 03/03/2018 3:36 PM PDT [facility] [employer] | | [facility] Echocardiography Laboratory [facility] | | [place], [place] [address] Pt Name: MARISSA CHOWDHURY | | CHITRA ELKINS Study Date/Time 03/03/2018 / 1:44:11 PMMRN: [id number] | | Most recent prior: -Acc #: [id number] No. previous echos: 0DOB: | | 1960 58 years Heart Rate: 90 bpmHeight: 68.0 in Blood | | Pressure: 159/99 mm/HgWeight: 130.0 lb Gender: MBSA: | | 1.70 m2 Order ID: [id number] Messaging Architect: Kb Robledo | | RCSSonographer 2:Referring Provider: Mart Ernst Location: 4NModalities Performed: | | 2D, Color flow, Spectral [...] | | values Report electronically signed by: [id number] Andreas Denny MD (03/03/2018, 3:36:52 | | [...] | | | |Report electronically signed by: [id number] Andreas Denny MD (03/03/2018, 3:36:52 PM) | |Fellow(s) participating in diagnosis: Thien Huston; | | | | | | | | Final | + + + + + + + | Performing | Address | City/State/Zipcode | Phone Number | | Organization | | | | + + + + + | [facility]PT [facility] | [address] | [place], [place] | | | CARDIOLOGY | [address] | [address] | | + + + + + [...] | + + + + + | [facility] | [address] | [place] [address] | | | SERVICES, CORE | [address] [...] [facility] | [address] | [place] [address] | | | SERVICES, | [address] [...] [facility] | [address] | [place] [address] | | | SERVICES, | [address] [...] [facility] | [address] | [place] [address] | | | SERVICES, CORE | P[address] [...] + | [facility] | [address] | [place] [address] | | | SERVICES, CORE | [address] [...] | | | LABORATORY | | | [place] | | | SERVICES, | | | [...] + + + + + | [facility] | [address] | [place] [address] | | | SERVICES, CORE | [address] [...] | | | 6 HOURS NEEDED, Starting Wed | | | | | | | 03/03/18 at 1207, Until Zoya 03/04/18 | | | | [...] | | | | | 03/03/18 at 1800, Until | | | | [...] | | WITH MEALS, First dose on Wed | | PM PDT | | [...] | | | Eye, ONCE, 1 dose, Zoya 03/04/18 at | | PM PDT | [...] PDT | | | | | Starting Zoya 03/04/18 at 0848, | | | | | | | Until Zoya 03/04/18 at 1156, severe | | | [...] | | | | | CONTINUOUS, Starting 03/03/18 | | AM PDT | | | | | at 0945, Until Thu03/03/18 at 1221 | | | | | | + +---------+ + + +---+ +---+---+ | | | +---+---+ + + + +---+---+---+ | lactated Ringers IV 75 mL/hr, | given by | 03/04/20 | | | | | intravenous, CONTINUOUS, Starting | | 18 10:30 | | | | | 03/03/18 at 1245, Until Zoya | anesthes | [...] 12 | | | HOURS NEEDED, Starting Wed | | | 03/03/18 at 1215, Until [...] | | | | | 1157, Until Zoya 03/04/18 at 2218, | | | | | | | severe pain | | | | | | + +-------+ +------+---+---+ + +---+ | | | + +---+ | prochlorperazine (COMPAZINE) | | | injection 2.5-5 mg 2.5-5 mg, | | | intravenous, EVERY 6 HOURS | | | NEEDED, Starting Thu03/03/18 at | | | 1216, Until Thu03/04/18 [...]
--- OUTSIDE RECORDS SUMMARY | ~2019-05-14 | XMS | Encounter Summary ---
Demographics + + + | Address | [address] | | | [place] [address] | + + + | Home Phone [...] + + | Author | [facility] [employer] [facility] | + + + | Organization | [facility] | + + [...] Team Providers + +------+ + | Care Animal Husbandry Teacher Name | Role | Phone | [...] OF SKIN | | 2017 | | [facility] | [address] | CANCER OF FACE 5X7 | | | | Admitting Desk | [address] [place], | CM, 4X5 CM & 8X8 CM, | | | | Located on the [address]th | [place] [address] | AND NECK WITH LOCAL | | | | floor [address] | [phone] | ADVANCEMENT FLAPS. | | | | [address] | | specimens: pathology | | | | [place], [place] | | NEDA x 4 | | | | [address] | | | +--------+---------+ + + + [...] ESTS WILL BE TAKEN ON FRIDAYS OR S. Prescriptions sent by mail will take 3 [...] to 4:30pm, call the Otolaryngology clinic at [phone]. After hours, weekends, and holidays, call the [facility] news camera operator at [phone] and as k to have the ENT doctor on-call paged Future Appointments Date Time Provider Department Center 04/30/2017 10:10 AM Brenda Christensen MD [facility] Comprehensiv 11/17/2017 11:00 AM Valente Welch MD,MPH [...] and Neck Surgery Mail Code PV01 [address] [place], [place] [id number] Pager [phone] Consult/Night/Weekend Pager: [phone] documented in this encounter Medications at Time [...] | | | | | [address] [place], | | | | | | [place] [address] | | | | | | [phone] | | | | | | | [...] 04/22/2017 Attending | | Surgeon:Shlomo Roach MD Stain Wiper(s):Richard Clemente MD. | | Preoperative Diagnosis: Skin [...] 04/22/2017 15:12:11DT: | | 04/22/2017 16:12:47Job #: [id number] | |There was no evidence of any bleeding or hematomas. All flaps looked viable at the end of the procedure. He was woken up, extubated, and will be followed carefully. | | | | | | | |Shlomo Roach MD | |MW/NIADAL | | | | | | /[id number] | + + PROCEDURE NOTE (04/22/2017 3:55 PM PDT) + + + | Narrative | Performed At | + + + | Richard Clemente MD 04/22/2017 3:55 PM Department of | | | Otolaryngology/Head and Neck Surgery BRIEF OPERATIVE NOTE v1.0 | | | Simeon Michaels Jr. [id number] Procedure Date: 04/22/17 | | | Attending [...] regular | | | Thromboprophylaxis/Anticoagulation: ambulation Ava: jazmin/ifeoma Ramos | | | MD Chyna | | + + + INTRAPROCEDURE IMAGING [...] Pathology | | | | | | FellowMinisterio Christine | | | | | | Puneet Wharton/ | | | | | | Pathologist [...] record | | | | | | #[id number].A. Anterior | | | | | | [...] | + + + + + | [facility] | [address] | [place] [address] | | | PATHOLOGY | [address] [...] other parts of face | + + documented in this encounter [...] | | +---+---+ + +-------+ +---------+---+---+ | bacitracin ointment | Given | 04/22/20 | 1 strip | | | | INTRAPROCEDURE PRN, Starting Wed | | 17 3:27 | | | | | 04/22/17 at 1527, Until Wed | | PM PDT | [...] balanced salt (BSS) ophthalmic | Given | 04/22/20 | 15 mL | | | | irrigation INTRAPROCEDURE PRN, | | 17 3:06 | | | | | Starting Thu04/22/17 at 1506, | | PM PDT | | | | | Until Thu04/22/17 at 1542 | | | | | [...] (LASIX) dose 10 mg | Given | 09/20/20 | 10 mg | | | | [...] +-------+ +-------+---+---+ | lidocaine-EPINEPHrine | Given | 04/22/20 | 18 mL | | | | (XYLOCAINE WITH EPINEPHRINE) 1 | | 17 2:29 | | | | | %-1:100,000 injection | | PM PDT | | | | | INTRAPROCEDURE [...] First dose on Thu | | AM PDT | | | [...] | | | | | NEEDED, Starting Thu04/22/17 at | | | | | | | 1928, Until Thu04/23/17 at 1856, | | | | | [...] | | | First dose on Zoya 04/23/17 at | | AM PDT | | | | | 0900, Until Discontinued | | | | | | + +-------+ +------+---+---+ +---+---+ | | | +---+---+ documented in this encounter
--- OUTSIDE RECORDS SUMMARY | ~2019-05-14 | XMS | Encounter Summary ---
Demographics + + + | Address | [address] | | | [place] [address] | + + + | Home Phone | | + + + | Preferred Language | Unknown | + + + | Marital Status | Single | + + + | Moravian Affiliation | BAP | + + + | Race | White | + + + | Ethnic Group | Not or | + + + Author + + + | Author | [facility] [employer] [facility] | + + + | Organization | [facility] [employer] [facility] | + + [...] Team Providers + +------+ + | Care Christmas Tree Grader Name | Role | Phone | + +------+ + | Ritesh England PA-C | PCP | | + +------+ + Encounter Details +--------+ + + + + | Date | Type | Department | Care Team | Description | +--------+ + + + + | 09/25/ | Ancillary | Registration [address] | | | | 2005 | Reg[address]ratio | [address] | | | | | n | Ten Mailcode: [id number] | | | | | | [place], [place] | | | | | | [address] | | | | | | [phone] | | | +--------+ + + + [...] | | | | | [address] [place], | | | | | | [place] [address] | | | | | | [phone] | | | | | | | | +--------+---------+ + + + documented as of this encounter Visit Diagnoses Not on filedocumented in this encounter"
--- OUTSIDE RECORDS SUMMARY | ~2019-05-14 | XMS | Encounter Summary ---
Demographics + + + | Address | [address] | | | [place] [address] | + + + | Home Phone [...] + + | Author | [facility] [employer] [facility] | + + + | Organization | [facility] [employer] [facility] | + + [...] Team Providers + +------+ + | Care Log Getter Name | Role | Phone | + +------+ + | Ritesh England PA-C | PCP | | + +------+ + Encounter Details +--------+ + + + + | Date | Type | Department | Care Team | Description | +--------+ + + + + | 04/22/ | Procedure | 6A Intra Op [facility] | | | | 2017 | Pass | [facility] | | | | | | Admitting Desk | | | | | | Located on the 9th | | | | | | floor [address] [facility] | | | | | | [address] | | | | | | [place], [place] | | | | | | [address] | | | +--------+ + + + [...] | | | | | [address] [place], | | | | | | [place] [address] | | | | | | [phone] | | | | | | | | +--------+---------+ + + + documented as of this encounter Visit Diagnoses Not on filedocumented in this encounter"
--- OUTSIDE RECORDS SUMMARY | ~2019-05-14 | XMS | Encounter Summary ---
Demographics + + + | Address | [address] | | | [place] [address] | + + + | Home Phone [...] Team Providers + +------+ + | Care Well Tender Name | Role | Phone | + +------+ + PCP | Unavailable | + +------+ + Encounter Details +--------+ + + + + | Date | Type | Department | Care Team | Description | +--------+ + + + + | 09/25/ | Discharge | | Summary, Discharge | D/C Summary ODDS | | 2005 | Summary-Tra | | | | | | nscribed | | | | +--------+ + + [...] documented as of this encounter Discharge Summaries Interface, American Indian Studies Professor In - 10/18/2005 2:10 AM [facility] [id number] CHITRA ANN Admission Date: 09/18/2005 Discharge Date: 09/25/2005 Staff Physician: Leon Hernandez M.D. 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 Additional Diagnoses: Pain. Primary Procedure: Total pinnectomy, superficial parotidectomy, right selective neck dissection, radial forearm free flap, and split-thickness skin graft. Additional Procedures: 1. Gold weight to right eyelid. 2. Right canthoplasty. 3. Nutrition consult. 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 Following resection and reconstruction, the patient was admitted to the ENT [facility]. The patient did well during his hospitalization. Postoperatively, the flap remained well perfused with good Dopplers signals and good capillary refills throughout the patient's hospitalization. During the course of the operation, branches of cranial nerve 7 had to be sacrificed given that they passed directly into the tumor. Because of this, postoperatively, the patient had noted right-sided facial nerve weakness with difficulty closing his right eye. The patient was unable to tell when his right eye was completely closed and took only about 30 seconds and completely closed his right eye while awake. Although he was able to close his eye while sleeping, the decision was made to take the patient back to the operating room for placement of Gold weight in his eyelid and right canthoplasty to help him close his eye for protective purposes. The patient was taken back to the OR on September 24, 2005, for this reason. Otherwise, throughout the patient's hospitalization, he did well. He, by the time of discharge, was eating a regular diet and ambulating without difficulty with his pain well controlled on oral pain medications. Discharge Medication(s): 1. Oxycodone. 2. Lacri-Lube. 3. Colace. 4. Gentamicin ophthalmic ointment. Followup Instructions: The patient is to return to see Dr. Leon Hernandez and Dr. Roach in clinic. He is to call to make this appointment. Activities: 1. The patient to refrain from driving while take narcotic pain medications. Additionally, the patient is instructed to apply the ointment to his facial incisions. The patient also has been instructed to apply the Lacri-lube q.1h. and then p.r.n while awake ( ) using the Natural Tears. Additionally, the patient is instructed to use Lacri-lube to his right eye while sleep. Jamie Shen M.D. Leon Hernandez M.D. / [id number] / [id number] / [id number] / [id number] Electronically signed by Leon Hernandez 10-17-2005 09:21:07 AM documented i n this encounter Plan of [...] | | | | | | [place] [address] | | | | | | [phone] | | | | | | | | +--------+---------+ + + + documented as of this encounter Visit Diagnoses Not on filedocumented in this encounter"
--- OUTSIDE RECORDS SUMMARY | ~2019-05-14 | XMS | Encounter Summary ---
Demographics + + + | Address | [address] | | | [place] [address] | + + + | Home Phone [...] + + + | Author | [facility] | + + + | Organization | [facility] | + + + [...] Team Providers + +------+ + | Care Subscription Clerk Name | Role | Phone | + +------+ + | Ritesh England PA-C | PCP | | + +------+ + Encounter Details +--------+ + + + + | Date | Type | Department | Care Team | Description | +--------+ + + + + | 09/11/ | Pharmacy | Outpatient Retail | | | | 2019 | Visit | Clinic Pharmacy | | | | | | [address] | | | | | | [place], | | | | | | [place] [address] | | | +--------+ + + + [...] | | | | | [place], | | | | | | [place] [address] | | | | | | [phone] | | | | | | | | +--------+---------+ + + + documented as of this encounter Visit Diagnoses Not on filedocumented in this encounter"
--- OUTSIDE RECORDS SUMMARY | ~2019-05-14 | XMS | Encounter Summary ---
Demographics + + + | Address | [address] | | | [place] [address] | + + + | Home Phone [...] + + | Author | [facility] [employer] [facility] | + + + | Organization | [facility] [employer] [facility] | + + [...] Team Providers + +------+ + | Care Detective Bureau Chief Name | Role | Phone | + +------+ + PCP | Unavailable | + +------+ + Encounter Details +--------+ + + + + | Date | Type | Department | Care Team | Description | +--------+ + + + + | 09/05/ | Abstract | Otolaryngology | Leon Hernandez, | | | 2005 | | Thyroid Services at | MD [address] | | | | | PPV [address] | [address] | | | | | [address] | [place], [place] | | | | | Mailcode: [id number] | [address] | | | | | [address] | [phone] | | | | | [place], [place] | | | | | | [address] | | | | | | [phone] | | | +--------+ + + + [...] | | | | | [address] [place], | | | | | | [place] [address] | | | | | | [phone] | | | | | | | | +--------+---------+ + + + documented as of this encounter Visit Diagnoses + + | Diagnosis | + + | 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
--- OUTSIDE RECORDS SUMMARY | ~2019-05-14 | XMS | Encounter Summary ---
Demographics + + + | Address | [address] | | | [place] [address] | + + + | Home Phone [...] | Author | [facility] [employer] [facility] | + + + | Organization | [facility] [employer] [facility] | + + + [...] Team Providers + +------+ + | Care Snowboarding Instructor Name | Role | Phone | + +------+ + | Sylvester Scherer DO | PCP | | + +------+ + Reason for Visit + + + | Reason | Comments | + + + | Pre Transplant | Intake | | Workup | | + + + Encounter Details +--------+ + + + + | Date | Type | Department | Care Team | Description | +--------+ + + + + | 10/06/ | Telephone | Transplant | Yue Joseph | Pre Transplant | | 2014 | | Coordinators [address], RN [address] | Workup (Intake) | | | | [address] [facility] | [facility] [address] | | | | | Rd [place], [place] | [place], [place] | | | | | [address] | [address] | | | | | [phone] | | | +--------+ + + + [...] | | | | [address] [place], | | | | | | [place] [address] | | | | | | [phone] | | | | | | | | +--------+---------+ + + + documented as of this encounter Visit Diagnoses Not on filedocumented in this encounter"
--- OUTSIDE RECORDS SUMMARY | ~2019-05-14 | XMS | Encounter Summary ---
Demographics + + + | Address | [address] | | | [place] [address] | + + + | Home Phone [...] + + | Author | [facility] [employer] [facility] | + + + | Organization | [facility] | + [...] Team Providers + +------+ + | Care Printing Plate Maker Name | Role | Phone | + +------+ + | Ritesh England PA-C | PCP | | + +------+ + Encounter Details +--------+ + + + + | Date | Type | Department | Care Team | Description | +--------+ + + + + | 09/07/ | Pharmacy | Specialty Pharmacy | | | | 2019 | Visit | Services [phone] | [address] | [address] | | | | | | [place], [place] | | | | | | [address] | | | | | | [phone] | | | +--------+ + + + [...] | | | | | [address] [place], | | | | | | [place] [address] | | | | | | [phone] | | | | | | | | +--------+---------+ + + + documented as of this encounter Visit Diagnoses Not on filedocumented in this encounter"
--- OUTSIDE RECORDS SUMMARY | ~2019-05-14 | XMS | Encounter Summary ---
Demographics + + + | Address | [address] | | | [place] [address] | + + + | Home Phone [...] | Author | [facility] | + + + | Organization | [facility] | [...] +------+ + | Care Home Health Care Worker Name | Role | Phone | + +------+ + | Ritesh England PA-C | PCP | | + +------+ + Encounter Details +--------+ + + + + | Date | Type | Department | Care Team | Description | +--------+ + + + + | 09/08/ | Pharmacy | Specialty Pharmacy | | | | 2019 | Visit | Services [address] | | [address] | | | | | | [place], [place] | | | | | | [address] | | | | | | [phone] | | | +--------+ + + + [...] | | | | [address]ica Ca[place], | | | | | | [place] [address] | | | | | | [phone] | | | | | | | | +--------+---------+ + + + documented as of this encounter Visit Diagnoses Not on filedocumented in this encounter"
--- OUTSIDE RECORDS SUMMARY | ~2019-05-14 | XMS | Encounter Summary ---
Demographics + + + | Address | [address] | | | [place] [address] | + + + | Home Phone | | + + + | Preferred Language | Unknown | + + + | Marital Status | Single | + + + | Buddhism Affiliation | BAP | + + + | Race | White | + + + | Ethnic Group | Not or | + + + Author + + + | Author | [facility] | + + + | Organization | [facility] [employer] [facility] | + + [...] Team Providers + +------+ + | Care Delivery Crew Worker Name | Role | Phone | [...] + + + + | 03/04/ | Anesthesia | 6A Intra Op [facility] | Artis Lopez, | | | 2018 | Event | [facility] | MD [address] | | | | | Admitting Desk | [address] | | | | | Located on the [address] | [place], [place] | | | | | floor [address] | [address] | | | | | [address] | [phone] | | | | | [facility] [place] | | | | | | [address] | Britany Bose I, | | | | | | [employer] [address] | | | | | | [address] | | | | | | [facility] [place] | | | | | | [address] | | | | | | [phone] | | | | | | | [...] | | | 8 | | reviewed, PARPhyllis held, anesthetic plan made or approved by [...] | + + + | midazolam | 1 mg | + + + | fentaNYL | 150 mcg | + + + | propofol | 200 mg | + + + | succinylcholine | 100 mg | + + + | ceFAZolin | 2,000 mg | + + + | ePHEDrine | 15 mg | + + + | PHENYLEPHrine | 1,200 mcg | + + + | dexamethasone | 4 mg | + + + | lactated Ringers IV | 900 mL | + + + + + | Name | + + | O2 FR Avance (Total Liters) | + + | Air FR Avance (l/min) | + + | Insp Sevo | + + | Et Sevo | + + | EtN2O % | [...] | IV | Lidocaine; No; Positive; | | RICHMOND Hunter | | | 03/04/18; 1500 | | | +--------+ + + + | Incisi | 03/04/18; 0916; Maxwell Hendrix MD; | 03/04/18 0916 by | 03/04/18 1500 by | | on | Right; eye (eyelid); 03/04/18; | Deedee Bennett RN | Maul[address] Long | | | 1500 | | RICHMOND Hunter | +--------+ + + + | Incisi | 03/04/18; 0925; Milvia Spencer | [birth year]25 by | 03/04/18 1500 by | | on | MD; Left; Lower; arm; 03/04/18; | Deedee Bennett RN | [address] Long | | | 1500 | | RICHMOND Hunter | +--------+ + + + | Incisi | 03/04/18; 0944; MD Chyna; Right; | 03/04/18 0944 by | 03/04/18 1500 by | | on | neck; 03/04/18; 1500 | Vicente Palomo, Barrett Long | | | | RN Barrett Hunter RN | +--------+ + + + | Incisi | 03/04/18; 1012; Maxwell Hendrix MD; | 03/04/18 1012 by | 03/04/18 1500 by | | on | Left; Medial; neck; 03/04/18; | RICHMOND Muller | | | 1500 | | RICHMOND [...] | 2019 | Visit | | [address] | | | | | | [place], | | | | | | [place] [address] | | | | | | [phone] | | | | | | | | +--------+---------+ + + + documented as of this encounter Procedures + +--------+ + + + | Procedure Name | Priori | Date/Time | Associated Diagnosis | Comments | | | ty | | | | + +--------+ + + + | LILY ETCarlene | Routin | 03/04/2018 | | Results for this | | | e | 8:47 AM | | procedure are in the | | | | PDT | | results section. | + +--------+ + + + documented in this encounter Results LILY ETT (03/04/2018 8:47 AM PDT) + + + | Narrative | Performed At | + + + | Britany Bose CRNA 03/04/2018 8:48 AM Procedure Reason | | | for Intubation: For surgical procedure, Location Performed: [place] , | | | Patient was preoxygenated Mask Ventilation Grade 2 - Ventilated by | | | mask with oral airway/adjuvant Intubation Blade type: Colette , | | | Blade size: 3, Atraumatic laryngoscopy: Atraumatic Laryngoscopy, | | | Intubation adjuncts: N/A , Laryngoscopic view: Grade I, Fiberoptics | | | used: N/A , Number of Attempts: 1, Positive for EtCO2: Yes, Breath | | | sounds: Bilateral and equal ETT Ett Adult: Single-lumen | | | cuffed ETT Size: 7.5 ETT secured with: suture Depth at Lip: | | | 23 Cm Airway leak: No Narrative Attending physically | | | present Dentition and lips as preop. | | + + + documented in this encounter Visit Diagnoses Not on filedocumented in this encounter Administered Medications + +--------+ + +------+------+ | Medication Order | MAR | Action | Dose | Rate | Site | | | Action | Date | | | | + +--------+ + +------+------+ | ceFAZolin (ANCEF) injection | Given | 03/04/20 | 2,000 mg | | | | intravenous, INTRAPROCEDURE PRN, | | 18 8:40 | | | | | Starting Zoya 03/04/18 at 0840, | | AM PDT | | | | | Until Zoya 03/04/18 at 1042 | | | | | | + +--------+ + +------+------+ +---+---+ | | | +---+---+ + +-------+ +------+---+---+ | dexamethasone (DECADRON) | Given | 03/04/20 | 4 mg | | | | injection INTRAPROCEDURE PRN, | | 18 10:17 | | | | | Starting Zoya 03/04/18 at 1017, | | AM PDT | | | | | Until Zoya 03/04/18 at 1042 | | | | | | + +-------+ +------+---+---+ +---+---+ | | | +---+---+ + +-------+ +------+---+---+ | ePHEDrine injection | Given | 03/04/20 | 5 mg | | | | INTRAPROCEDURE PRN, Starting Zoya | | 18 8:49 | | | | | 03/04/18 at 0838, Until Zoya 03/04/18 | | AM PDT | | | | | at 1042 | | | | | | + +-------+ +------+---+---+ +-------+ +-------+---+---+ | Given | 03/04/20 | 10 mg | | | | | 18 8:38 | | | | | | AM PDT | | | | +-------+ +-------+---+---+ +---+---+ | | | +---+---+ + +-------+ +---------+---+---+ | fentaNYL (SUBLIMAZE) injection | Given | 03/04/20 | 150 mcg | | | | INTRAPROCEDURE PRN, Starting Zoya | | 18 8:29 | | | | | 18 at 0829, Until Zoya 18 | | AM PDT | | | | | at 1042 | | | | | | + +-------+ +---------+---+---+ +---+---+ | | | +---+---+ + + [...] | midazolam (PF) (VERSED) | Given | 03/04/20 | 1 mg | | | | injection INTRAPROCEDURE PRN, | | 18 8:20 | | | | | Starting Zoya 03/04/18 at 0820, | | AM PDT | | | | | Until Zoya 03/04/18 at 1042 | | | | | | + +-------+ +------+---+---+ +---+---+ | | | +---+---+ + +-------+ +---------+---+---+ | PHENYLEPHrine 100 mcg/mL IV | Given | 03/04/20 | 100 mcg | | | | syringe INTRAPROCEDURE PRN, | | 18 10:07 | | | | | Starting Zoya 03/04/18 at 0844, | | AM PDT | | | | | Until Zoya 03/04/18 at 1042 | | | | | | + +-------+ +---------+---+---+ +-------+ +---------+---+---+ | Given | 03/04/20 | 100 mcg | | | | | 18 9:55 | | | | | | AM PDT | | | | +-------+ +---------+---+---+ | Given | 03/04/20 | 200 mcg | | | | | 18 9:30 | | | | | | AM PDT | | | | +-------+ +---------+---+---+ +---+---+ | | | +---+---+ + +-------+ +-------+---+---+ | propofol (DIPRIVAN) injection | Given | 03/04/20 | 50 mg | | | | INTRAPROCEDURE PRN, Starting Zoya | | 18 8:31 | | | | | 03/04/18 at 0829, Until Zoya 03/04/18 | | AM PDT | | | | | at 1042 | | | | | | + +-------+ +-------+---+---+ +-------+ +--------+---+---+ | Given | 03/04/20 | 150 mg | | | | | 18 8:29 | | | | | | AM PDT | | | | +-------+ +--------+---+---+ +---+---+ | | | +---+---+ + +-------+ +--------+---+---+ | succinylcholine (ANECTINE) | Given | 03/04/20 | 100 mg | | | | injection INTRAPROCEDURE PRN, | | 18 8:29 | | | | | Starting Zoya 03/04/18 at 0829, | | AM PDT | | | | | Until Zoya 03/04/18 at 1042 | | | | | | + +-------+ +--------+---+---+ +---+---+ | | | +---+---+ documented in this encounter"
--- OUTSIDE RECORDS SUMMARY | ~2019-05-14 | XMS | Encounter Summary ---
Demographics + + + | Address | [address] | | | [place] [address] | + + + | Home Phone [...] Author + + + | Author | [facility] | + + + | Organization | [facility] | + + + | [...] Team Providers + +------+ + | Care Morning Show Host Name | Role | Phone | + [...] +--------+---------+ + + + | 05/04/ | Surgery | 6A Intra Op [facility] | Shlomo Roach MD | LEFT PAROTIDECTOMY, | | 2019 | | [facility] | [address] | LEFT SIDED | | | | Admitting Desk | Angelica Caal [place], | SIALOENDOSCOPY, WIDE | | | | Located on the 9 | [place] [address] | LOCAL EXCISION NECK | | | | floor [address] | [phone] | LESION WITH LOCAL | | | | [address] | | FLAP | | | | [place], [place] | | | | | | [address] | | | +--------+---------+ + + + [...] might be diff erent from the original. [facility] Discharge Summary Discharging Provider: Torrie Jones [...] excise site. Reason for Admission: Marissa Michaels Jr. is a 59 y.o. male with HCV/EtOH cirrhosis s/p OLTx (2011) subsequent ly with multiple cutaneous SCC, systolic HF (most recent EF 55% in 2019), HTN, and CKD3 who was admitted from ENT clinic acute left parotitis after being seen in the ED in [place] on 04/18/19 and then again at [facility] ED in [place] on 04/20/19. He was diagnosed with parotitis at [facility] and started on Augmentin for 10 days. [...] from rejection, alcohol, or his chronic HCV ([facility] possibly contributing). His liver dopplers are negative for PVT. # ANAID on CKD Initially transferred from ENT service with concern for ANAID on CKD, however, Cr at [facility] around 1.4 at that time. During procedure on 05/04, had transient hypotension resulti ng in ANAID with ATN, Cr max 2.51. At time of discharge, ANADI had resolved and Cr back at basel ine. # HTN Blood pressure up to 170s [...] that I, or Nurse Practitioner or Physician Wood Barker working with me, had a face to [...] that I, or Nurse Practitioner or Physician Wood Barker working with me, had a face to face encounter with this patient on 05/09/2019 On behalf of Attending Physician: Matthieu Hull MD I am ordering and certify that the following services are medically necessary home health services: Home Health [facility] Evaluate and Treat I certify that the [...] Selected Services Address Phone Number Fax Number [facility] Selected Home Health Services [address] [facility] [address] [address] [phone] Community Resources No service has been selected for the patient. Durable Medical Equipment No service has been selected for the patient. Dialysis/Infusion No service has been selected for the patient. Follow Up: Future Appointments Provider Department Dept Phone Center 06/17/2019 12:00 PM Shlomo Roach Otolaryngology Head and Neck Surgery Services at [facility] [phone] Otolaryngolo Contact information for other follow-up providers Ritesh England PA-C In 1 week. Specialty: Physician Wood Barker Why: labs (liver function, kidney function) Contact information [facility] [place] [id number] your Mysql Developer In 1 month. Why: discuss medication changes for high blood pressure and heart failure Contact information for after-discharge group home [facility] . Service: Home Health Services Contact information [address] [place] [address] Discharge Physical Exam: Last 24 hour min/max [...] of their assessment Patient's Name: Marissa Michaels . Today's Date: 05/11/2019 I personally saw, interviewed, [...] Maker Primary Surrogate Decision Maker Shruthi Osorio [phone] MATTHIEU HULL MD [address] bag loader Division of Hospital Medicine Department of Medicine [facility] [address] [phone] documented in this encounter Discharge Instructions Discharge [...] Provider, please call a nd ask the extruder operator multiple to page the attending physician who was caring for you at discharge. If that physician is not available, ask the extruder operator multiple to page the physician on-call for the [facility] Teaching Service. 12:0 6 PM PDT [...] 05/09. Discharge Instr - Electronic Signature Lexie Devlin DO - 05/04/2019 6:52 PM PD TAfter Visit [...] and Neck Surgery Mail Code PV01 [address] [place], [place] [id number] Pager [phone] Consult/Night/Weekend Pager: [phone] Everardo Barger MD - 05/08/2019 12:27 PM [...] Marissa Morenostefanie June. is a 59 y.o. Male w/ hx [...] drain L neck CODE:Full SDM: Sister Shruthi [phone] The patient was discussed with attending physician, Dr. Matthieu Hull MD, who agrees with khai stewart assessment and plan. Everardo Pardo MD Neurology PGY-1 [facility]fax[facility]re aguilar MD - 05/08/2019 9:23 AM PDT The [...] 100 05/08/2019 [place] 7.7 05/08/2019 ASSESSMENT/PLAN: Marissa Michaels Jr. Is a 59M [...] with questions or concerns at p ager [phone]. Dre Cronin MD Resident Physician, PGY-5 Otolaryngology/ Head & Neck Surgery Pager [phone] Associated attestation - Edgar Littlejohn MD - 05/08/2019 5:30 PM PDT PATIENT NAME: Marissa Michaels [facility] MR#: [id number] : 1960 PRIMARY CARE PROVIDER: Ritesh England [...] Unit Attending Progress Note CVICU D1 Assigned #[id number] ICU Admission Reason Most Recent Value ICU [...] Pager Shlomo Roach MD Admitting Provider Otolaryngology [id number] Code Status Code Status Full Code Quality [...] Date of Service: 05/07/2019 Author:Dina Mauricio MD [address] [phone] signed by Dina Mauricio MD at 05/07/2019 [...] HTN, CKD stage 4 who returns to GM service after parotidectomy c/b tongue swelling necessitating [...] to transition back to sirolimus 2 webruce fragoso post-surgery Code Status: Full SDM: Sister Shruthi [phone] This patient will be staffed with attending physician, Dr. Hull within 24 hours. Torrie Jones MD Internal Medicine, PGY-2 Pager: [phone] Associated attestation - Matthieu Hull MD - [...] Maker Primary Surrogate Decision Maker Shruthi Osorio [phone] MATTHIEU HULL MD [address] bag loader Division of Hospital Medicine Department of Medicine [facility] [place] [address] [place] [phone] Marissa Moura DO - 05/07/2019 10:28 AM PDT Cardiovascular Intensive Care Unit Team Progress Note CVICU D1 Assigned #[id number] ICU Admission Reason Most Recent Value ICU [...] Adjusted - Renal function improving - Remains IM Code Status Code Status Full Code Active Diagnosis with Assessment & Plan Priority Class POA Mental Health Methamphetamine use disorder, moderate (HCC) Yes Head/Neck Squamous cell carcinoma of skin of ear, unspecified laterality Yes Acute parotitis Yes Parotid sialolithiasis Yes Overview Added automatically from request for surgery [id number] Current Assessment & Plan S/P transfacial parotid [...] 2 Yes Overview Overview: Transplant done in [place] 2011, following up with [facility]. Patient reports to have plans t o be treated for hepatitis-C through them. Overview: Transplant done in [place] 2011, [facility] [...] Pager Shlomo Roach MD Admitting Provider Otolaryngology [phone] Quality section FAST HUG Feeding: regular Analgesia: APAP, Oxy Sedation: none Thromboprophylaxis: Heparin SQ Head of Bed: Head of Bed Ad pito Ulcer Prophylaxis: not clinically indicated Glycemic Control: not indicated DISPO: Remains ILC Created by MARISSA MOURA DO Author:MARISSA MOURA DO [address] [phone] signed by Marissa Moura DO at 05/07/2019 [...] Valdivia MD Otolaryngology-Head & Neck Surgery PGY-3 [facility] Pager [phone] Associated attestation - Edgar Littlejohn MD - 05/08/2019 5:31 PM PDT PATIENT NAME: Marissa Michaels [facility] MR#: [id number] : 1960 PRIMARY CARE PROVIDER: Ritesh England [...] downstaging and subsequent OLT in 2011 at [facility] on MMF and sirolimus with subse quent [...] questions. Vikas Cooper Gastroenterology and Hepatology Fellow [id number] sui, Dina Roblero MD - 05/06/2019 4:07 PM PDT Cardiovascular Intensive Care Unit Attending Progress Note CVICU D1 Assigned #[id number] ICU Admission Reason Most Recent Value ICU Admission reason airway swelling monitoring, mechanical ventilation filed at 9 2926 Documentation Date Row Name 05/04/19 1023 ENT ENT ENT Procedures Other ENT Other [...] Pager Shlomo Roach MD Admitting Provider Otolaryngology [id number] Code Status Code Status Full Code Quality [...] on counseling and coordination of care.Seen with PA/POULTRY FARM WORKER Annabella Bartholomew. Kellen vicente see their note for details. I reviewed the documented findings, all data and the recent i maging available. Date of Service: 05/06/2019 Author:Dina Mauricio MD [facility] [address] [place] [id number] signed by Dina Mauricio MD at 05/06/2019 4:07 PM Annabella Barrera PA-C - 05/06/2019 2:15 PM PDTFormatting of this note might be different f rom the original. Cardiovascular Intensive Care Unit Team Progress Note CVICU D1 Assigned #[id number] ICU Admission Reason Most Recent Value ICU [...] Overview Added automatically from request for surgery [id number] Current Assessment & Plan S/P transfacial parotid [...] 2 Yes Overview Overview: Transplant done in [place] 2011, following up with [facility]. Patient reports to have plans t o be treated for hepatitis-C through them. Overview: Transplant done in [place] 2011, [facility] [...] Pager Shlomo Roach MD Admitting Provider Otolaryngology [phone] Quality section FAST HUG Feeding: regular Analgesia: [...] 05/06/2019 TINO Newell PA-C Author:Annabella Bartholomew PA-C [address] [phone] signed by Annabella Bartholomew PA-C at 05/06/2019 2:18 PM Juanjose Valero PA-C - 05/06/2019 8:38 AM PDTFormatting of this note might be differen t from the original. DOS: 05/06/2019 Head and Neck Surgery Inpatient Daily Progress Note: Primary Care Provider: Ritesh England PA-C Admission Date: 04/25/2019 MARISSA MICHAELS JR., [id number] Hospital Day #11 PROCEDURE: Dr. Shlomo Roach [...] Intake/Output Summary (Last 24 hours) at 05/06/2019 0874 Last data filed at 05/06/2019 0745 Gross per 24 hour Intake 2039.73 ml Output 2415 ml Net -375.27 ml PHYSICAL EXAM: Gen: awake, alert in NAD HEENT: anterior tongue swelling improved, incisions C/D/I, SARAH in left lateral neck with SS drainage, holding suction (45 ml) Resp: Breathing unlabored on RA LABS: Recent Labs 05/04/19 1836 05/05/19 0633 05/05/19 1611 05/06/19 0013 NA 140 [...] in this interval not displayed. Recent Labs 05/04/19 183 MG 1.4* Recent Labs 05/04/19 1836 05/05/19 0526 WBC 9.74 7.43 RBC 4.37* 3.39* HB 12.4* 10.1* HCT 38.7* 31.5* PLT 210 174 CBG's Recent Labs 04/30/19 0700 05/01/19 0519 05/02/19 0500 05/03/19 0700 05/04/19 0500 05/04/19 1836 05/04/19 1841 05/05/19 0633 05/05/19 1611 05/06/19 0013 GLU 104* 102* 102* 92 104* 138* 142* 149* 137* 189* ASSESSMENT/PLAN: Marissa Luciana Brando June. Is a 59M with HCV/EtOH cirrhosis [...] JUANJOSE GUPTA PA-C Otolaryngology-Head and Neck Surgery [facility] [place] Pager [phone] Dina Quintanilla M D - 05/05/2019 4:37 PM PDT Cardiovascular Intensive Care Unit Attending Progress Note CVICU D1 Assigned #[id number] ICU Admission Reason Most Recent Value ICU [...] Pager Shlomo Roach MD Admitting Provider Otolaryngology 09024 Code Status Code Status Full Code Quality [...] on counseling and coordination of care.Seen with PA/POULTRY FARM WORKER Annabella Glass. Kellen vicente see their note for details. I reviewed the documented findings, all data and the recent i maging available. Date of Service: 05/05/2019 Author:Dina Mauricio MD [address] [phone] signed by Dina Mauricio MD at 05/05/2019 4:37 PM P Annabella Reid PA-C - 05/05/2019 12:39 PM PDTFormatting of this note might be different f rom the original. Cardiovascular Intensive Care Unit Team Progress Note CVICU D1 Assigned #[id number] ICU Admission Reason Most Recent Value ICU Admission reason airway swelling monitoring, mechanical ventilation filed at 9 9421 Documentation Date Row Name 05/04/19 6244 ENT ENT ENT Procedures Other ENT Other [...] Overview Added automatically from request for surgery [id number] Current Assessment & Plan S/P transfacial parotid [...] 2 Yes Overview Overview: Transplant done in [place] 2011, following up with [facility]. Patient reports to have plans t o be treated for hepatitis-C through them. Overview: Transplant done in [place] 2011, [facility] [...] Pager Shlomo Roach MD Admitting Provider Otolaryngology 74761 Quality section [place] necessity reviewed: Hourly/Accurate measurement [...] 05/05/2019 TINO Newell PA-C Author:Annabella Bartholomew PA-C [address] [phone] signed by Annabella Bartholomew PA-C at 05/05/2019 12:44 PM Juanjose Valero PA-C - 05/05/2019 10:08 AM PDTFormatting of this note might be differen t from the original. DOS: 05/05/2019 Head and Neck Surgery Inpatient Daily Progress Note: Primary Care Provider: Ritesh England PA-C Admission Date: 04/25/2019 MARISSA MICHAELS JRValentina, [id number] Hospital Day #10 PROCEDURE: Dr. Shlomo Roach [...] ALB 2.8* 2.9* -- 2.4* Recent Labs 05/04/191835 MG 1.4* Recent Labs 05/04/19 1836 05/05/19 0526 WBC 9.74 7.43 RBC 4.37* 3.39* HB 12.4* 10.1* HCT 38.7* 31.5* PLT 210 174 CBG's Recent Labs 04/29/19 0414 04/30/19 0700 05/01/19 0519 05/02/19 0500 05/03/19 0700 05/04/19 0500 05/04/19 1836 05/04/19 1841 05/05/19 0633 GLU 101* 104* 102* 102* 92 104* 138* 142* 149* ASSESSMENT/PLAN: Marissa Michaels Jr. Is a 59M [...] JUANJOSE GUPTA PA-C Otolaryngology-Head and Neck Surgery [facility] Pager [phone] Sharif Akins MD - 05/04/2019 9:57 PM [...] Bo MD Otolaryngology-Head & Neck Surgery PGY-2 [facility] Pager [phone] hlomo Roach MD - 9 6:44 PM PDTClinic Date:05/04/2019 He is a [...] benefit, and we are going to proceed. MD TELLY Delgadillo/SABRA /[id number] signed by Shlomo Roach MD at 05/05/2019 10:43 AM Everardo Renee MD - 05/04/2019 1:35 PM PDTFormatting of this note might be different fro m the original. GENERAL MEDICINE PROGRESS NOTE Author: Everardo Pardo MD Attending Physician: María Stacy MD Hospital Day: 9 ID: Marissa Michaels Jr. is a 59 [...] 15 mL, 15 mL, oral, Q4H WA [OCT Hold] hydrALAZINE (APRESOLINE) injection 10 mg, 10 mg, intravenous, Q4H PRN [MAR Hold] hydrOXYzine pamoate (VISTARIL) capsule 50 mg, 50 mg, oral, Q6H PRN [MAR Hold] lisinopril (PRINIVIL) tablet 10 mg, 10 mg, oral, DAILY [MAR Hold] metoprolol succinate (TOPROL-XL) tablet 100 mg, 100 mg, oral, DAILY [MAR Hold] mycophenolate (CELLCEPT) capsule 250 mg, 250 mg, oral, BID [MAR Hold] nicotine (NICOTROL) 14 mg/24 hr 1 patch, 1 patch, transdermal, DAILY [MAR Hold] nicotine polacrilex (COMMIT) lozenge 2 mg, 2 mg, oral, Q1H PRN [MAR Hold] ondansetron ODT (ZOFRAN ODT) tablet 8 mg, 8 mg, oral, Q12H PRN [MAR Hold] oxyCODONE (immediate release) (ROXICODONE) tablet 5 [...] ppx:senna-docusate, miralax IV/Airways/Catheters:PIV CODE:Full SDM: Sister Shruthi [phone] The patient was discussed with attending physician, [...] downstaging and subsequent OLT in 2011 at [facility] on MMF and sirolimus with subse quent [...] questions. Vikas Cooper Gastroenterology and Hepatology Fellow [phone] María Brooks MD - 05/03/2019 11:54 AM [...] Hours (or 3 results): Recent Labs 05/01/19 0505/02/19 0500 05/03/19 0700 NA 139 137 137 [...] none. Imaging: - none. Assessment and Plan Mraissa Michaels Jr. is a 59 y.o. Male [...] necessary during the day. - Oxycodone 5mg [id number] PRN for pain. # Liver transplant, elevated [...] in nature and improving. - Hydroxyzine 50mg d1ngogv PRN. Diet/Nutrition: Regular diet. Activity: Up ad [...] with the plans as documented. Assessment: Marissa Xiaoph Brando Elkins is a 59 y.o. malew/ hx of liver transplant on immunosupression, HTN, CKD3 admitted for parotitis. Doing well. Condition stable. Had transient bump in Cr from st arting lisinopril, trending down. LFTs stable. Parotid still swollen and painful Plan: -Continue Augmentin, parotid massage -Continue lisinopril 10mg. -NPO midnight for sialendonscopy tomorrow Everardo Pardo MD Neurology PGY-1 P: [phone] Gupta PA-C - 05/03/2019 8:18 AM PDTFormatting of this note might be di fferent from the original. DOS: 05/03/2019 Head and Neck Surgery Inpatient Daily Progress Note: Primary Care Provider: Ritesh England PA-C Admission Date: 04/25/2019 MARISSA LUCIANA BRANDO ELKINS, [id number] Hospital Day #8 SUBJECTIVE INTERVAL EVENTS: No [...] 101* 104* 102* 102* 92 ASSESSMENT/PLAN: Marissa Luciana Michaels Jr. Is a 59M with HCV/EtOH [...] NPO, and h old Lovenox ppx at [place]. -The above plan was discussed with primary team -ENT team will continue to follow along with you. Code Status: FULL JUANJOSE GUPTA PA-C Otolaryngology-Head and Neck Surgery [facility] [place] Pager [phone] Tre Brooks MD - 05/02/2019 2:26 PM [...] carcinoma in situ. Discharge planning:Surgery weds and th; anticipate he will dc soon thereafter. Has NO ball pports at home but not wanting to go live with sister in [place]. Please refer to the note from Dr. Mccullough/LUANA Veras for additional details María Stacy MD [facility] Division of Hospital Medicine arishma Khan RN - 05/02/2019 2:07 PM PDTTeam came through doing rounds this am and [...] hours (or 3 results) Recent Labs 04/30/19 0700 05/01/19 0519 05/02/19 0500 AST 61* 69* 63* ALT 33 [...] during the day. - Continue oxycodone 5mg [id number] PRN for pain. # Liver transplant, elevated [...] in nature and improving. - Hydroxyzine 50mg x4wnwin PRN. Diet/Nutrition: Regular diet. Activity: Up ad pito. Access/Lines: PIV in place. Consults: ENT, hepatology. DVT ppx: SCD's. GI/BM ppx: senna-docusate, miralax PRN. Pain: oxycodone and acetaminophen. Dispo: Following surgery. CODE:Full The patient was discussed with attending physician, Dr. María Stacy MD, who agrees with the above assessment and plan. Han Veras [id number] signed by Lexie Mccullough DO at 05/02/2019 3:33 PM PDT Associated attestation - Lexie Devlin DO - 05/02/2019 3:33 PM PDTI personally interviewed the patient, performed the churchill elements of the physical examination, have develo ped an updated assessment and plan together with the medical student, Han Veras. I agree with the plans as documented. Assessment: Marissa Michaels Jr. is a 59 y.o. [...] Mccullough DO, MSc Internal Medicine, PGY-2 Pager [phone] Karishma Khan RN - 05/02/2019 9:43 AM PDTDeclined to massage left parotid or do mouthwash. States he wants to sleep uanjose Gupta PA-C - 05/02/2019 9:27 AM PDTFormatting of this no te might be different from the original. DOS: 05/02/2019 Head and Neck Surgery Inpatient Daily Progress Note: Primary Care Provider: Ritesh England PA-C Admission Date: 04/25/2019 MARISSA MICHAELS JR., [id number] Hospital Day #7 SUBJECTIVE INTERVAL EVENTS: No [...] Intake/Output Summary (Last 24 hours) at 05/02/2019 0927 Last data filed at 05/01/2019 1549 Gross [...] 101* 104* 102* 102* ASSESSMENT/PLAN: Marissa Michaels . Is a 59M [...] JUANJOSE GUPTA PA-C Otolaryngology-Head and Neck Surgery [facility] [place] Pager [phone] Vikas Durán M D - 05/02/2019 8:03 AM PDT Hepatology Inpatient Consult Follow-Up Note Name: Marissa Michaels Jr. A/P: Marissa Michaels Jr. is a 59 y.o. male withHCV/EtOH cirrhosis c/b HCC s/p KAMI-TACE with downstaging and subsequent OLT in 2011 at [facility] on MMF and sirolimus with subseq uent [...] questions. Vikas Cooper Gastroenterology and Hepatology Fellow [id number] IE/S: Continues to have R parotid pain, [...] 15 mL, oral, Q4H WA Given: 05/02 602 fluorouracil (EFUDEX) 5 % cream No Dose/Rate, [...] 5 mg, oral, Q4H PRN Given: 05/02 polyethylene glycol (MIRALAX) packet 34 g 34 [...] Imaging: None Assessment and Plan Marissa Michaels . is a 59 y.o. [...] ppx:senna-docusate, miralax IV/Airways/Catheters:PIV CODE:Full SDM: Sister Shruthi [phone] The patient was discussed with attending physician, [...] MD Hospital Day: 5 ID: Marissa Michaels Jr. is a 59 [...] María Stacy MD - 04/30/2019 4:00 PM [facility] ADMIT DATE: 04/25/2019 2:11 [...] above. Please refer to the note from MSNba Veras/Dr. Pardo for additional details María Stacy MD [facility] Division of Hospital Medicine iJuanjose taylor PA-C - 04/29/2019 10:29 AM PDT . DOS: 04/29/2019 Head and Neck Surgery Inpatient Daily Progress Note: Primary Care Provider: Ritesh England PA-C Admission Date: 04/25/2019 MARISSA MICHAELS JR., [id number] Hospital Day #4 SUBJECTIVE INTERVAL EVENTS: No [...] JUANJOSE GUPTA PA-C Otolaryngology-Head and Neck Surgery [facility] [place] Pager [phone] Amparo Gonzalez MD - 04/29/2019 9:10 AM PDT Hepatology Follow-Up Note Impression: Marissa Michaels Jr. is a 59 y.o. male with HCV/EtOH cirrhosis c/b HCC s/p KAMI-TACE with downstaging and subsequent OLT in 2011 at [facility] on MMF and sirolimus with subsequ ent [...] Becerra MD Fellow, Gastroenterology and Hepatology Pager: [phone] Interval History: - normal liver dopplers yesterday [...] and personally formulated the plan with the maintenance worker house trailer. I agree with the maintenance worker house trailer's doc umentation as outlined above. S/p OLT 2011 at [facility] currently admitted for parotitis with plans of [...] upcoming surgery to avoid delayed healing will drying rack changer to FK p erioperatively (switch back 2 weeks after surgery) as noted in Dr. Becerra's note. I spent a total of 25 minutes, which was spent in the care and management of this patient, of which greater than 50% was spent on counseling and/or coordination of care for this patie nt's active medical problems. Dayron Donato MD Pricing Associate, [facility] Division of Gastroenterology/Hepatology Han Veras - 04/29/2019 8:37 AM PDTFormatting of this note might be different fr om the original. GENERAL MEDICINE MEDICAL STUDENT PROGRESS NOTE Author: Han Veras Attending Physician: María Stacy MD Hospital Day: 4 ID: Marissa iMchaels Jr. is a 59 y.o. male with [...] 72 hours (or 3 results) Recent Labs 04/27/1954 04/28/19 0509 04/29/19 0414 AST 101* 58* [...] sialendoscopy on 05/04. - Continue oxycodone 5mg t2vbsio PRN for pain. # Anxiety Appears to be chronic in nature and patient has previously been prescribed benzodiazepines and - Discussed hydroxyzine as first line agent for anxiety, including potential side effects. - Hydroxyzine 50mg n5hvcsa PRN. - Discussed previous prescription of diazepam [...] days (star satya on 04/28, end on 9/30). - Follow-up in transplant skin clinic to [...] to trend LFTs. Starting tacrolimus tomorrow. Aries roblero keep inpatient through surgery on 05/05.Everardo Pardo [...] ductal dilatation. Assessment and Plan Marissa Michaels . is a 59 y.o. malew/ hx ofliver transplant on immunosupression, HTN , CKD3 admitted for parotitis. #Parotitis Stable. CT confirms large stone with dilation of duct. ENT will take for surgery next sday to remove. Continuing antibiotics and massage for [...] this note might be different from t candido original. Hepatology Inpatient Consult Follow-Up Note Name: Marissa Michaels . A/P: This is a 59 y.o. male with HCV/EtOH cirrhosis c/b HCC s/p KAMI-TACE with downstaging and ball bsequent OLT in 2011 at [facility] on MMF and sirolimus with subsequent recurrent [...] Howe MD Gastroenterology & Hepatology Fellow Pager: [phone] IE/S: CT yesterday with left parotitis with [...] mg 5 mg, oral, Q4H PRN Given: 09/26 06 58 polyethylene glycol (MIRALAX) packet 34 [...] and personally formulated the plan with the maintenance worker house trailer. I agree with the maintenance worker house trailer's doc umentation as outlined above. I spent a total of 25 minutes, which was spent in the care and management of this patient, of which greater than 50% was spent on counseling and/or coordination of care for this patie nt's active medical problems. Dayron Donato MD Pricing Associate, [facility] Division of Gastroenterology/Hepatology Juanjose Gupta PA-C - 04/28/2019 7:54 AM PDT DOS: 04/28/2019 Head and Neck Surgery Inpatient Daily Progress Note: Primary Care Provider: Ritesh England PA-C Admission Date: 04/25/2019 MARISSA MICHAELS JR., [id number] Hospital Day #3 SUBJECTIVE INTERVAL EVENTS: No [...] GLU 94 98 97 102* ASSESSMENT/PLAN: Marissa Grigsby Brando June. Is a 59M with HCV/EtOH cirrhosis [...] JUANJOSE GUPTA PA-C Otolaryngology-Head and Neck Surgery [facility] Pager [phone] Everardo Barger MD - 04/27/2019 1:04 PM PDT GENERAL MEDICINE PROGRESS NOTE Author: Everardo Pardo MD Attending Physician: María Stacy MD Hospital Day: 2 ID: Marissa Michaels . is a 59 y.o. male 24 Hour [...] PA-C Admission Date: 04/25/2019 MARISSA MICHAELS JR., [id number] Hospital Day #2 SUBJECTIVE INTERVAL EVENTS: No [...] hours) at 04/27/2019924 Last data filed at 04/27/2019 09 Gross per 24 hour Intake 2200 ml [...] 0654 GLU 94 98 97 ASSESSMENT/PLAN: Marissa Grigsby Brando June. Is a 59M with HCV/EtOH cirrhosis [...] JUANJOSE GUPTA PA-C Otolaryngology-Head and Neck Surgery [facility] Pager [phone] uanjose Gupta PA-C - 04/26/2019 8:42 AM PDT DOS: 04/26/2019 Head and Neck Surgery Inpatient Daily Progress Note: Primary Care Provider: Ritesh England PA-C Admission Date: 04/25/2019 MARISSA MICHAELS JR., [id number] Hospital Day #1 SUBJECTIVE INTERVAL EVENTS: No [...] Labs 04/25/19 1502 GLU 94 ASSESSMENT/PLAN: Marissa Michaels Jr. Is a 59M [...] JUANJOSE GUPTA PA-C Otolaryngology-Head and Neck Surgery [facility] Pager [phone] Celsa Ng MD - 04/26/2019 8:12 AM PDTINPATIENT MEDICINE TRANSFER CENTER & INTRA-HOSPITAL ACCEPT NOTE Medicine Hospitalist Attending Author: CELSA ROSAS MD PCP: Ritesh England PA-C [address] [facility] / [place] [address] FAX: [phone] Referring Physician: Lay Gupta Referring Site (or [...] | | 2018 | Visit | | [address] | | | | | | [place], | | | | | | [place] [address] | | | | | | [phone] | | | | | | | [...] | | Results for this | | (PET) | e | 4:12 PM | | [...] | Test performed by immunoassay using [employer] Dispatcher i2000. . | [facility] | | Samples [...] [facility] | [address] | [place] [address] | | | SERVICES, SPECIAL | ANGELICA [...] | | | LABORATORY | | | IVORIAN | | | SERVICES, | | | [...] SERVICES LABORATORY | [address] | [place] [address] | | | DELMIS OJEDA | ANGELICA [...] (H) | 70 - 99 mg/dL | [facility] - | | | GLUCOSE, | | [...] + + + | [facility] | [address] | [place], [place] | | | [facility] | [address] | [address] | | | TESTS | | | [...] | | | LABORATORY | | | IVORIAN | | | SERVICES, | | | [...] [facility] | [address] | [place] [address] | | | DELMIS OJEDA | ANGELICA [...] | + + + + + | [facility] | [address] | [place] [address] | | | SERVICES, DELMIS | ANGELICA [...] | Test performed by immunoassay using [employer]patcher i2000. . | [facility] | | Samples [...] SERVICES LABORATORY | [address] | [place] [address] | | | SPECIAL LYNETTE | ANGELICA [...] SERVICES LABORATORY | [address] | [place] [address] | | | SERVICES, CORE | ANGELICA [...] | | | LABORATORY | | | IVORIAN | | | SERVICES, | | | [...] [facility] | [address] | [place] [address] | | | DELMIS OJEDA | ANGELICA [...] | | | LABORATORY | | | IVORIAN | | | SERVICES, | | | [...] [facility] | [address] | [place] [address] | | | SERVICES, CORE | ANGELICA [...] + | [facility] | [address] | [place], [place] | | | [facility] | [address] | [address] | | | TESTS | | | [...] | Test performed by immunoassay using [employer] Dispatcher i2000. . | [facility] | | Samples [...] | + + + + + | [facility] | [address] | [place] [address] | | | SERVICES, SPECIAL | ANGELICA [...] | | | LABORATORY | | | IVORIAN | | | SERVICES, | | | [...] + + | [facility] | [address] | [place] [address] | | | SERVICES, CORE | PARK [...] | | | LABORATORY | | | IVORIAN | | | SERVICES, | | | [...] | + + + + + | [facility] | [address] | [place] [address] | | | SERVICES, [facility] | [address] | | | + [...] | | | LABORATORY | | | IVORIAN | | | SERVICES, | | | [...] [facility] | [address] | [place] [address] | | | SERVICES, CORE | PARK [...] [facility] | [address] | [place] [address] | | | SERVICES, CORE | PARK [...] + | Test performed by immunoassay using [employer] Dispatcher i2000. . | [facility] | | Samples [...] SERVICES LABORATORY | [address] | [place] [address] | | | SERVICES, SPECIAL | [address] | | | | IMM + COAG | | | | + + + + + X-RAY ABD LTD FEEDING TUBE EVAL PORTABLE (05/04/2019 8:16 PM PDT) + + | Specimen | + + | | + + + + + | Narrative | Performed At | + + + | EXAM: NC ABD LTD FEEDING TUBE EVAL INDICATION: DHT [...] Service Account, Radiant Res In Interface - 05/05/2019 10:18 AM PDT EXAM: NC ABD LTD | | FEEDING TUBE EVAL [...] At | + + + | EXAM: NC CHEST 1 VIEW HISTORY: ETT placement COMPARISON: [...] Reilly MD Dictation initiated: Kalyani | | Barrett Reilly MD 05/04/2019 7:39 PM | | + + + + + | Procedure Note | + + | Service Account, Radiant Res In Interface - 05/04/2019 7:41 PM PDT EXAM: NC CHEST 1 | | VIEW HISTORY: ETT [...] [facility] | [address] | [place], [place] | | | [facility] | [address] | [address] | | | TESTS | | | [...] | + + + + + | [facility] | [address] | [place] [address] | | | SERVICES, CORE | [address] | | | + + + + + MAGNESIUM, PLASMA (05/04/2019 6:36 PM PDT) + +---------+ + + + | Component | Value | Ref Range | Performed | Pathologist | | | | | At | Signature | + +---------+ + + + | MAGNESIUM,P | 1.4 (L) | 1.6 - 2.6 mg/dL | [facility] | | | [facility] | | | [...] | + + + + + | [facility] | [address] | [place] [address] | | | LYNETTE, DELMIS | [address] | | | [...] | | | LABORATORY | | | IVORIAN | | | SERVICES, | | | [...] + + | [facility] | [address] | [place] [address] | | | SERVICES, DELMIS | AN[address]ELICA [...] The patient is a 59-year | | [facility] | | | History | old man [...] keratosis with | | OF | Dina Roblero | | | ulceration and | | [...] PathologistPathology, | | | | | | [facility] | | [...] number | | | | | | [id number].A. Neck, Left | | | | | [...] inked | | | | | | 12-3-6 o'clock blue, | | | | | | 6-9-12 o'clock black. | | | | | [...] inked | | | | | | 12-3-6 o'clock blue, | | | | | | 6-9-12 o'clock black. | | | | | [...] [facility] | [address] | [place] [address] | | | PATHOLOGY | [address] [...] | | | LABORATORY | | | IVORIAN | | | SERVICES, | | | [...] | + + + + + | [facility] | [address] | [place] [address] | | | SERVICES, DELMIS | ANGELICA [...] | | | LABORATORY | | | IVORIAN | | | SERVICES, | | | [...] + + | [facility] | [address] | [place] [address] | | | SERVICES, CORE | PARK [...] | | | LABORATORY | | | IVORIAN | | | SERVICES, | | | [...] | [facility] | [address] | [place] [address] | | | SERVICES, CORE | PARK [...] | Test performed by immunoassay using [employer] Dispatcher i2000. . | [facility] | | Samples [...] [facility] | [address] | [place] [address] | | | SERVICES, SPECIAL | PARK [...] | | | LABORATORY | | | IVORIAN | | | SERVICES, | | | [...] SERVICES LABORATORY | [address] | [place] [address] | | | SERVICES, CORE | PARK [...] + | Test performed by immunoassay using [employer] Dispatcher i2000. Kidney | [facility] | | transplant [...] + + | [facility] | [address] | [place] [address] | | | SERVICES, SPECIAL | PARK [...] | | | LABORATORY | | | IVORIAN | | | SERVICES, | | | [...] | + + + + + | [facility] | [address] | [place] [address] | | | SERVICES, CORE | ANGELICA [...] | Test performed by immunoassay using [employer] Dispatcher i2000. Kidney | [facility] | | transplant [...] | + + + + + | [facility] | [address] | [place] [address] | | | SERVICES, SPECIAL | ANGELICA [...] | | | LABORATORY | | | IVORIAN | | | SERVICES, | | | [...] mL/min/1.73 sq m Chronic Kidney | SERVICES, [facility] | | Disease <15 mL/min/1.73 sq m [...] [facility] | [address] | [place] [address] | | | LYNETTE, DELMIS | [address] | | | [...] Note | + + | Service Account, Senseg Res In Interface - 04/28/2019 1:58 PM [...] necessary, edited the report. I agree with [facility] report as now presented. | | | [...] | Test performed by immunoassay using [employer] Dispatcher i2000. Kidney | [facility] | | transplant [...] [facility] | [address] | [place] [address] | | | SERVICES, SPECIAL | PARK [...] [facility] | [address] | [place] [address] | | | SERVICES, CORE | PARK [...] | | | LABORATORY | | | IVORIAN | | | SERVICES, | | | [...] | + + + + + | [facility] | [address] | [place] [address] | | | SERVICES, CORE | ANGELICA [...] | | | | | determined by [facility] | | | | | | Laboratories. See | | | | | | Compliance Statement B: | | | | | | [email or web address]/CSPerformed | | | | | | by [employer],[address] | | | | | | Mariam Estevez, [facility] | | | | | | [address] | | | | | | [phone].[employer]. | | | | | | Juvenal [...] [facility] | [address] | [place], [place] | | | UNIV PTH - INT[facility] | | [address] | | + + + + + [...] [facility] | [address] | [place] [address] | | | SERVICES, CORE | PARK [...] + + | [facility] | [address] | [place] [address] | | | SERVICES, CORE | PARK [...] [facility] | [address] | [place] [address] | | | SERVICES, CORE | ANGELICA [...] REG UNIV | | | (PETH) | 16:0/18:1.6-[id number]- | | PTH - INTFC | | | | geqdpn-ix-xjrtiia-3-phos | | | | | | phoethanol.Analysis [...] ServicesAdministration | | | | | | (2012). "The Role of | | | | | | Biomarkers in | | | | | | theTreatment of Alcohol | | | | | | Use Disorders", 2012 | | | | | | Revision.Advisory, [...] | | | | at: [facility] [address] | | | | | | [facility] | | | | | | [place] [address] | | | | + + + + + + + + | Specimen | + + | Blood - Blood | | (substance) | + + + + + + + | Performing | Address | City/State/Zipcode | Phone Number | | Organization | | | | + + + + + | [facility] | [address] | [place], [place] | | | UNIV PTH - INT[facility] | | [address] | | + + + + + [...] | + + + + + | [facility] | [address] | [place] [address] | | | SERVICES, CORE | ANGELICA [...] | | | LABORATORY | | | IVORIAN | | | SERVICES, | | | [...] mL/min/1.73 sq m Chronic Kidney | SERVICES, [facility] | | Disease <15 mL/min/1.73 sq m [...] SERVICES LABORATORY | [address] | [place] [address] | | | DELMIS OJEDA | ANGELICA [...] | Test performed by immunoassay using [employer] Dis[employer] i2000. Kidney | [facility] | | transplant [...] [facility] | [address] | [place] [address] | | | SERVICES, SPECIAL | PARK [...] + | [facility] | [address] | [place] [address] | | | SERVICES, CORE | PARK [...] SERVICES LABORATORY | [address] | [place] [address] | | | DELMIS OJEDA | ANGELICA [...] values based on 24 hour collection | SERVICES, CORE | | interval. Patient results are calculated from actual collection | | | interval and volume. | | + + + + + + + + | Performing | Address | City/State/Zipcode | Phone Number | | Organization | | | | + + + + + | [facility] | [address] | [place] [address] | | | SERVICES, DELMIS | PARK [...] [facility] | [address] | [place] [address] | | | SERVICES, CORE | PARK [...] | | | LABORATORY | | | IVORIAN | | | SERVICES, | | | [...] | + + + + + | [facility] | [address] | [place] [address] | | | SERVICES, CORE | PARK [...] | + + + + + | [facility] | [address] | [place] [address] | | | SERVICES, CORE | ANGELICA [...] | | | LABORATORY | | | IVORIAN | | | SERVICES, | | | [...] MDRD equation recommended by the National | [facility] | | Kidney Disease Education Program. Estimated [...] [facility] | [address] | [place] [address] | | | SERVICES, CORE | ANGELICA [...] | | | | | modification) on [facility] 05/05/19 at | | | | | | | 0500, Until Discontinued | | | | | | + +--------+ +--------+------+------+ +-------+ +--------+---+---+ | Given | 05/09/20 | [...] + | bacitracin ointment | Given | 05/04/20 | 1 strip | | Submandi | | INTRAPROCEDURE PRN, Starting Thu | | 19 4:53 | | | bular | | 05/04/19 at 1653, Until Wed | | PM PDT | | | | | 05/04/19 at 1816 | | | | | | + [...] | | | | | NEEDED, Starting [facility] 05/05/19 at | | | | [...] +------+---+ + | lidocaine-EPINEPHrine | Given | 05/04/20 | 5 mL | | Surgical | | (XYLOCAINE WITH EPINEPHRINE) 1 | | 19 1:54 | | | Site | | %-1:100,000 injection | | PM PDT | | | | | INTRAPROCEDURE PRN, Starting Wed | | | | | | | 05/04/19 at 1354, Until Wed | | | | | | | 05/04/19 at 1816 | | | | | | + [...] | | | | NEEDED, Starting [facility] 05/05/19 at | | | | | | | 1548, Until 05/09/19 at 2150, | | | [...] | | | (after last modification) on [facility] | | | | | [...]
--- OUTSIDE RECORDS SUMMARY | ~2019-05-14 | XMS | Encounter Summary ---
Demographics + + + | Address | [address] | | | [place] [address] | + + + | Home Phone | | + + + | Preferred Language | Unknown | + + + | Marital Status | Single | + + + | Sabianism Affiliation | BAP | + + + | Race | White | + + + | Ethnic Group | Not or | + + + Author + + + | Author | [facility] | + + + | Organization | [facility] | + + [...] Team Providers + +------+ + | Care Machine Assistant Name | Role | Phone | + +------+ + | Ritesh England PA-C | PCP | | + +------+ + Reason for Visit + + + | Reason | Comments | + + + | Referral to social | | | worker | | + + + Encounter Details +--------+ + + + + | Date | Type | Department | Care Team | Description | +--------+ + + + + | 04/21/ | Telephone | SOCIAL WORK | Racheal Miguel | Referral to social | | 2017 | | AMBULATORY [address] | [address] | worker | | | | [address] | [place], | | | | | Mailcode: CH[address]A | [place] [address] | | | | | [place], [place] | | | | | | [address] | | | | | | [phone] | | | +--------+ + + + [...] | | | | | [place], | | | | | | [place] [address] | | | | | | [phone] | | | | | | | | +--------+---------+ + + + documented as of this encounter Visit Diagnoses Not on filedocumented in this encounter"
--- OUTSIDE RECORDS SUMMARY | ~2019-05-14 | XMS | Encounter Summary ---
Demographics + + + | Address | [address] | | | [place] [address] | + + + | Home Phone [...] + + + | Author | [facility] [employer] [facility] | + + + | Organization | [facility] [employer] [facility] | + + + [...] Team Providers + +------+ + | Care Traffic Line Painter Name | Role | Phone | + +------+ + | Ritesh England PA-C | PCP | | + +------+ + Reason for Referral Occupational Therapy (Routine) +--------+--------+ + + + + | Status | Reason | Specialty | Diagnoses / | Referred By | Referred To | | | | | Procedures | Contact | Contact | +--------+--------+ + + + + | Closed | | Occupational | Diagnoses | Helminski, | Jorge Ot Chh1 | | | | Therapy | Closed | Say Ricketts MD | [address] | | | | | fracture of | [address] | | | | | trochanter | [address] | Mailcode: | | | | | of right | [address] | [facility] | | | | | femur, | [place], [place] | for Health | | | | | initial | [address] | and Healing, | | | | | encounter | Phone: | Building 1, | | | | | ([facility]) | [phone] | [address] | | | | | Procedures | Fax: | [place] | | | | | OCCUPATIONAL | [phone] | [address] | | | | | THERAPY | | Phone: | | | | | REFERRAL | | [phone] | | | | | | | Fax: | | | | | | | [phone] | +--------+--------+ + + + + Physical Therapy (Routine) +--------+--------+ + + + + | Status | Reason | Specialty | Diagnoses / | Referred By | Referred To | | | | | Procedures | Contact | Contact | +--------+--------+ + + + + | Closed | | Physical | Diagnoses | Cayla, | | | | | Therapy | Closed | Say Ricketts MD | | | | | | fracture of | [address] | | | | | | trochanter | [address] | | | | | | of right | [address] | | | | | | femur, | [place], [place] | | | | | | initial | [address] | | | | | | encounter | Phone: | | | | | | (HCC) | [phone] | | | | | | Procedures | Fax: | | | | | | PHYSICAL | [phone] | | | | | | THERAPY | | | | | | | REFERRAL | | | +--------+--------+ + + + + Reason for Visit AUTH/CERT +--------+--------+ + [...] | +--------+ + + + + | 01/13/ | Hospital | [facility] [address] | Mejia Mackenzie | | | 2018 - | Encounter | [address] | A, [address] | | | | | Kate Valdes | [address] | | | 01/18/ | | [place], [place] | [place], [place] | | | 2018 | | [address] | [address] | | | | | [phone] | [phone] | | | | | | | | | | | | Michelle Marin, | | | | | | [address] | | | | | | [address] | | | | | | [place], [place] | | | | | | [address] | | | | | | [phone] | | | | | | | | | | | | Nicole Obregon MD | | | | | | [address] | | | | | | [place], [place] | | | | | | [address] | | | | | | [phone] | | | | | | | | | | | | Say Kulkarni, | | | | | | [address] | | | | | | [address] | | | | | | [place], [place] | | | | | | [address] | | | | | | [phone] | | | | | | | [...] Kulkarni MD - 01/18/2018 11:53 AM PDT [facility] Discharge Summary Discharging Provider: Say Kulkarni MD [...] Dr. Bernard Lawrence Reason for Admission: Simeon Seb Michaels Jr. 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 Patient reported intermittent use and did not [...] femoral fracture. Consultants (service/attending name): Orthopedics: Dr. Lawrence IMP[facility] (addiction medicine): Brigid Harris CLINICAL QUALITY RN Discharge Medications: Medication List START taking these [...] Specialties Address Phone Number Fax Number Ramses Baptiste Selected Group Home Facility [address], [place] [address] [phone] Home Care Medical No service has been selected for the patient. Social Care Services No service has been selected for the patient. Follow Up: Future Appointments Provider Department Dept Phone Center 01/27/2018 9:45 AM Ed Hall Dermatology Surgery at [facility] [phone] Dermatolog y 02/02/2018 2:30 PM Liane Rodgers Orthopaedics at [facility] [phone] Orthopedics 02/16/2018 11:20 AM Dayron Donato Liver Transplant at [facility] 2nd Floor [phone] GASTROENT ERO 03/09/2018 11:20 AM Bernard Lawrence Orthopaedics at [facility] [phone] Orthopedics Contact information for after-discharge care Discharge Destination [facility] . Specialty: Group Home Facility Contact information [address] [facility] [address] Discharge Physical Exam: Last 24 hour min/max [...] Kulkarni MD Attending Physician Clinical Hospitalist Services [facility] [employer] Pager [phone] I spent 45 minutes in the care [...] as of this encounter Progress Notes Marimar Bhatti AGACNP - 01/18/2018 12:16 PM PDTFormatting of this note might be differe nt from the original. Orthopaedic Surgery Progress Note Patient: /Age: MRN: Date: Admission Date: Hospital Day: Orthopaedic Attending: Simeon Michaels Jr. 1960 58 y.o. [id number] 01/18/2018 01/13/2018 5 Bernard Lawrence MD Diagnosis(es): [...] <2 sec. Assessment & Plan: Simeon Michaels is a 58 y.o.M with the diagnoses/procedures [...] Lawrence or Dr Wilde Orthopedic Surgeon in [place] 8. Anticipated Discharge: Today Marimar Bhatti, [facility] Orthopaedic Trauma Surgery Pager [phone] Nicole Robb MD - 01/17/2018 9:51 AM [...] tender on right lower abdomen, bowel sounds+. MINER OPERATOR: Grossly nonfocal. Moving all four extremities. Extremities: [...] mg 20 mg, oral, Q48H Given: 01/16 113 melatonin tablet 3 mg 3 mg, oral, [...] 20 mEq 20 mEq, oral, DAILY Given: 01/17 818 senna-docusate (SENOKOT S) 8.6-50 mg 2 tablet 2 tablet, oral, BID Given: 01/17 818 sirolimus (RAPAMUNE) tablet 3 mg 3 mg, oral, DAILY Given: 01/17 07 PRN Medication Dose/Rate, Route, Frequency Last Action bisacodyl (DULCOLAX) suppository 10 mg 10 mg, rect, DAILY PRN Given: 01/15 114 bisacodyl EC (DULCOLAX) tablet 5 mg 5 mg, oral, DAILY PRN Ordered hydrALAZINE (APRESOLINE) injection 10 mg 10 mg, IV, Q4H PRN Given: 01/15 107 magnesium citrate liquid 296 mL 296 mL, oral, DAILY PRN Ordered nicotine polacrilex (COMMIT) lozenge 2 mg 2 mg, oral, Q1H PRN Ordered ondansetron (ZOFRAN) tablet 8 mg 8 mg, oral, Q12H PRN Given: 01/14 213 oxyCODONE (immediate release) (ROXICODONE) tablet 5-10 mg 5 mg, oral, Q4H PRN Given: 01/18 928 polyethylene glycol (MIRALAX) packet 34 g 34 g, oral, TID PRN Given: 01/14 161 prochlorperazine (COMPAZINE) injection 5-10 mg 5 mg, IV, Q6H PRN Given: 01/14 041 prochlorperazine (COMPAZINE) tablet 5-10 mg 5-10 mg, oral, Q6H PRN Ordered simethicone chew (MYLICON) tablet 80 mg 80 mg, oral, TID PRN Given: 01/16 218 Labs reviewed in [facility] CBC with diff last 72 hours (or [...] in next few day Nicole Obregon Pager: [phone] Asst toe laster Division of Hospital Medicine [facility] I spent more than 26 minutes iihb-wq-ujtf with the patient of which greater than 50% was sp ent counseling the patient regarding future course and medications. Miryam Jorgensen MD - 01/17/2018 12:53 AM PDT Orthopaedic Surgery Progress Note Patient: /Age: MRN: Date: Admission Date: Hospital Day: Orthopaedic Attending: Simeon Michaels Jr. 1960 58 y.o. [id number] 01/17/2018 01/13/2018 4 Bernard Lawrence MD Diagnosis(es): [...] <2 sec. Assessment & Plan: Simeon Michaels JrValentina is a 58 y.o.M with the diagnoses/procedures [...] to make a follow up appointment in [facility] 2 weeks with Yvette Sands 8. Anticipated Discharge: Pending PT MIRYAM ANN MD [id number] [facility] [address] [place] [address] Miryam Jorgensen MD - 01/16/2018 8:29 AM PDT Orthopaedic Surgery Progress Note Patient: /Age: MRN: Date: Admission Date: Hospital Day: Orthopaedic Attending: Simeon Michaels Jr. 1960 58 y.o. [id number] 01/16/2018 01/13/2018 3 Bernard Lawrence MD Diagnosis(es): [...] to make a follow up appointment in [facility] 2 weeks with Yvette Sands 8. Anticipated Discharge: Pending PT MIRYAM ANN MD [id number] [facility] [address] [place], [place] [id number] Clarisse, MD Nicole - 01/16/2018 8:28 AM PDT HOSPITALIST INPATIENT [...] mild diffuse tenderness like yesterday, bowel sounds+. MINER OPERATOR: Grossly nonfocal. Moving all four extremities. Extremities: [...] 10 mg, rect, DAILY PRN Given: 01/15 114 bisacodyl EC (DULCOLAX) tablet 5 mg 5 mg, oral, DAILY PRN Ordered hydrALAZINE (APRESOLINE) injection 10 mg 10 mg, IV, Q4H PRN Given: 01/15 107 HYDROmorphone (DILAUDID) injection 0.2 mg 0.2 mg, IV, Q6H PRN Ordered magnesium citrate liquid 296 mL 296 mL, oral, DAILY PRN Ordered nicotine polacrilex (COMMIT) lozenge 2 mg 2 mg, oral, Q1H PRN Ordered ondansetron (ZOFRAN) tablet 8 mg 8 mg, oral, Q12H PRN Given: 01/14 213 oxyCODONE (immediate release) (ROXICODONE) tablet 5-10 mg 5 mg, oral, Q4H PRN Given: 01/17 812 polyethylene glycol (MIRALAX) packet 34 g 34 g, oral, TID PRN Given: 01/14 161 prochlorperazine (COMPAZINE) injection 5-10 mg 5 mg, IV, Q6H PRN Given: 01/14 0419 prochlorperazine (COMPAZINE) tablet 5-10 mg 5-10 mg, oral, Q6H PRN Ordered simethicone chew (MYLICON) tablet 80 mg 80 mg, oral, TID PRN Given: 01/16 218 Labs reviewed in [facility] CBC with diff last 72 hours (or [...] more regime n . If after BM chemical machine tender might do CT A/P. Soft abdomen, [...] hopeful discharge on Thursday Nicole Obregon Pager: [phone] Asst toe laster Division of Hospital Medicine [facility] [employer] I spent more than 38 minutes [id number]-[id number] with the patient of which greater than [...] nondistended, nontender, bowel sounds+. Prominent aortic pulsation+ MINER OPERATOR: Grossly nonfocal. Moving all four extremities. Extremities: [...] PRN Given: 01/15 010 HYDROmorphone (DILAUDID) injection 0.5-1 mg 0.5 mg, [...] oral, Q6H PRN Ordered Labs reviewed in [facility] CBC with diff last 72 hours (or [...] to above Physical therapy/OT, Nicole Obregon Pager: [phone] Asst toe laster Division of Hospital Medicine [facility] I spent more than 38 minutes njmo-pw-[id number] with the patient of which greater than 50% was sp ent counseling the patient regarding future course and medications. Michelle Lauren MD - 01/14/2018 7:29 AM PDT HOSPITALIST [...] need SNF on discharge. MICHELLE MARIN MD Spot Machine Operator Clinical Hospitalist Service Division of Hospital Medicine [facility] [phone] signed by Michelle Marin MD at 01/14/2018 4:34 PM PDTMichelle Diaz MD - 01/13/2018 3:36 PM PDT HOSPITALIST [...] SNF on discharg e MICHELLE MARIN MD Spot Machine Operator Clinical Hospitalist Service Division of Hospital Medicine [facility] [phone] I spent more than 40 minutes in the care of this patient of which greater than 50% was spen t counseling the patient regarding surgical timing, importance of drug abstinence and coordi nating care with [facility] consult service, ortho BEE KEEPER & primary RN. Marimar Reed AGACNP - 01/13/2018 10:48 AM P DT Orthopaedic [...] per fused, capillary refill < 2 seconds MARYSOL Saldivar Orthopaedic Trauma Surgery Pager [phone] documented in t his encounter Plan of Treatment +--------+---------+ + + + | Date | Type | Specialty | Care Team | Description | +--------+---------+ + + + | 06/17/ | Office | Otolaryngology | Shlomo Roach MD | | | 2019 | Visit | | [address] | | | | | | [place], | | | | | | [place] [address] | | | | | | [phone] | | | | | | | [...] CENTER LAB[facility]ORY | [address] | [place] [address] | | | SERVICES, CORE | NAM [...] | | | LABORATORY | | | RUSSIAN | | | SERVICES, | | | [...] [facility] | [address] | [place] [address] | | | SERVICES, CORE | PARK [...] | + + + + + | [facility] | [address] | [place] [address] | | | SERVICES, CORE | NAM [...] | | | LABORATORY | | | RUSSIAN | | | SERVICES, | | | [...] + + + | [facility] | [address] | [place] [address] | | | SERVICES, CORE | NAM [...] [facility] | [address] | [place] [address] | | | SERVICESDELMIS | [address] | | | + [...] LABORATORY | | >18years: Deficiency: <20 | SERVICES, CORE | | ng/mL Insufficiency: 20-29 ng/mL | | | Optimum Level: 30-80 ng/mL High: | | | 81-150 ng/ml Toxic: >150 ng/mL | | + + + + + + + + | Performing | Address | City/State/Zipcode | Phone Number | | Organization | | | | + + + + + | [facility] | [address] | [place] [address] | | | SERVICES, CORE | PARK [...] MCHC, PLT, IG% and IG# effective | [facility] | | 12/10/2017 | LABORATORY | | | [place]EDA | + + + + + + + + | Performing | Address | City/State/Zipcode | Phone Number | | Organization | | | | + + + + + | [facility] | [address] | [place] [address] | | | DEL[place]EDA | NAM [...] | | | LABORATORY | | | RUSSIAN | | | SERVICES, | | | [...] [facility] | [address] | [place] [address] | | | DELMIS [place]EDA | NAM [...] | Test performed by immunoassay using [employer] Service Manager [id number]. | [facility] | | Kidney transplant [...] | + + + + + | [facility] | [address] | [place] [address] | | | SERVICES, SPECIAL | NAM [...] Note | + + | Service Account, Where's Up Res In Interface - 01/16/2018 10:30 AM [...] Preliminary: Gus Orozco MD Dictation initiated: Gus Orozco MD 01/16/2018 2:45 | | AM | [...] | + + + + + | [facility] | [address] | [place] [address] | | | SERVICES, CORE | PARK [...] | | | LABORATORY | | | RUSSIAN | | | SERVICES, | | | [...] | + + + + + | [facility] | [address] | [place] [address] | | | SERVICES, CORE | NAM [...] + + + | Test Performed by BRIJESH. Test performed by immunoassay using | [facility] | | [employer] Service Manager i2000. Kidney transplant (in combination with | [...] + + | Performing | Address | City/State/[facility] | Phone Number | | Organization | | | | + + + + + | [facility] | [address] | [place] [address] | | | SERVICES, SPECIAL | NAM [...] CENTER LABORATORY | [address] | [place] [address] | | | DELMIS OJEDA | NAM [...] + + | [facility] | [address] | [place], [place] | | | [facility] | [address] | [address] | | | TESTS | | | [...] | | Attending Surgeon: Bernard Lawrence M.D. Adaptive Physical Educator(s): Diego Parikh , | | | Puneet Ann MD Preoperative [...] follow up in clinic with the physicians custody assistant Yvette SUTHERLAND, | | | vanessa [...] case. | | | Bernard Lawrence M.D. Spot Machine Operator of Orthopaedics | | | [facility] | | + + + CBC (HEMOGRAM) [...] | + + + + + | [facility] | [address] | [place] [address] | | | SERVICES, CORE | NAM [...] | | | LABORATORY | | | RUSSIAN | | | SERVICES, | | | [...] | + + + + + | [facility] | [address] | [place] [address] | | | SERVICES, CORE | PARK [...] | Test performed by immunoassay using [employer] Service Manager i2000. | [facility] | | Kidney transplant [...] | + + + + + | [facility] | [address] | [place] [address] | | | SERVICES, SPECIAL | NAM [...] by | | | | | | [employer],[address] | | | | | | [facility], [facility],[place] | | | | | | [address] | | | | | | [phone].[employer]. | | | | | | Juvenal [...] | + + + + + | [facility] | [address] | [place], [place] | | | [facility] | | [id number] | | + + + + + [...] modified from | [facility] | | original lacing cutter's approved specifications. The performance | LABORATORY | | of the SENIOR GIS ANALYST HIV Combo test, with or without confirmation, was not | SERVICES, | | tested in pediatric patients less than 2 years of age. [facility] | SPECIAL IMM + | | guidelines [...] CENTER LABORATORY | [address] | [place] [address] | | | SERVICES, SPECIAL | PARK [...] | + + + + + | [facility] | [address] | [place] [address] | | | SERVICES, CORE | NAM [...] [facility] | [address] | [place] [address] | | | SERVICES, CORE | PARK [...] CENTER LABORATORY | [address] | [place] [address] | | | SERVICES, CORE | [address] | | | + + + + + X-RAY FEMUR 2 VIEWS RIGHT (01/13/2018 6:15 AM PDT) + + | Specimen | + + | | + + + + + | Narrative | Performed At | + + + | EXAM: FEMUR 2 VIEWS RIGHT HISTORY: pre op. COMPARISON: | [facility] | | 01/12/2018 FINDINGS: Redemonstration of a [...] Service Account, Radiant Res In Interface - 01/13/2018 8:35 AM [...] |Preliminary: Valente Swenson MD | |Dictation initiated: aVlente Swenson MD 01/13/2018 8:29 AM | + [...] | + + + + + | [facility] | [address] | [place] [address] | | | SERVICES, | [address] [...] [facility] | [address] | [place] [address] | | | SERVICES, | [address] [...] | + + + + + | [facility] | [address] | [place] [address] | | | SERVICES, CORE | NAM [...] | Test performed by immunoassay using [employer] Service Manager i2000. | [facility] | | Kidney transplant [...] | + + + + + | [facility] | [address] | [place] [address] | | | SERVICES, SPECIAL | NAM [...] Range: (75 - 120) sec Heparin | [facility] | | levels of 0.35 - 0.7 U/mL | | + + + + + + + + | Performing | Address | City/State/Zipcode | Phone Number | | Organization | | | | + + + + + | [facility] | [address] | [place] [address] | | | DELMIS OJEDA | NAM [...] | [facility] | [address] | [place] [address] | | | SERVICES, DELMIS | NAM [...] + + + | [facility] | [address] | [place] [address] | | | SERVICES, CORE | NAM [...] | | | LABORATORY | | | RUSSIAN | | | SERVICES, | | | [...] + + + | [facility] | [address] | [place] [address] | | | SERVICES, CORE | P[address] [...] [facility] | [address] | [place] [address] | | | SERVICES, SPECIAL | PARK [...] LABORATORY | | Barbiturates >=200 ng/mL | [facility] | | Benzodiazepine >=200 ng/mL Cocaine | [...] CENTER LABORATORY | [address] | [place] [address] | | | SERVICES, CORE | [address] | | | + + + + + 12 LEAD ECG (01/13/2018 4:50 AM PDT) + + + + + + | Component | Value | Ref Range | Performed | Pathologist | | | | | At | Signature | + + + + + + | VENTRICULAR | 107 | bpm | [facility] DEPT | | | RATE | | [...] + | [facility] | [address] | [place], [place] | | | CARDIOLOGY | [address] | [address] | | + + + + + documented in this encounter Visit Diagnoses + + | Diagnosis | + + | Closed fracture of trochanter of right femur, initial encounter (HCC) - Primary | + + | Liver transplant recipient (HCC) | + + | Recovered, reduced EF Chronic systolic heart failure (HCC) Chronic systolic heart | | failure | + + | Methamphetamine use disorder, moderate (HCC) (per chart: will review) | + + | Hypertension Unspecified essential hypertension | + + | Abdominal aortic aneurysm (AAA) without rupture (HCC) | + + documented in this encounter [...] | +---+---+ + +-------+ +-------+---+---+ | bisacodyl EC (DULCOLAX) tablet | Given | 01/16/20 | 10 mg | | | | 10 mg 10 mg, oral, ONCE, 1 dose, | | 18 3:04 | | | | | 01/15/18 at 1515 | | PM PDT | | | | + +-------+ +-------+---+---+ + +---+ | | | + +---+ | bisacodyl EC (DULCOLAX) tablet | | | 5 mg 5 mg, oral, DAILY | | | NEEDED, Starting 01/16/18 at | | | 0749, Until 01/18/18 at 8, | | | 2nd in line from constipation | | + +---+ | | | + +---+ + +-------+ + +---+---+ | calcium carbonate [...] | | | 0150, Until Thu01/18/18 at 1927, | | | [...] +---------+---+---+ +---+---+ | | | +---+---+ + +---------+ +-----+---+---+ | ceFAZolin IV 2 gram in dextrose | New Bag | 01/16/20 | 2 g | | | | (RTU) 2 g, intravenous, EVERY 8 | | 18 9:46 | | | | | HOURS, 2 doses, First dose on | | AM PDT | | | | | Zoya 01/14/18 at 2300, Last dose on | | | | | | | 01/15/18 at 0700 | | | | | | + +---------+ +-----+---+---+ +---------+ +-----+---+---+ | New Bag | 01/16/20 | 2 g | | | | | 18 1:09 | | | | | | AM PDT | | | | +---------+ +-----+---+---+ +---+---+ | | | +---+---+ + +-------+ +-------+---+---------+ | enoxaparin (LOVENOX) injection | Given | 01/18/20 | 40 mg | | Abdomen | | 40 mg 40 mg, subcutaneous, EVERY | | 18 8:34 | | | | | EVENING, First dose on Fri | | PM PDT | [...] PDT | | | | +-------+ +-------+---+---------+ +---+---+ | | | +---+---+ + +-------+ +--------+---+---+ | fentaNYL (SUBLIMAZE) injection | Given | 01/15/20 | 50 mcg | | | | 50 mcg 50 mcg, intravenous, | | 18 9:33 | | | | | POSTPROCEDURE PRN, 4 doses, | | AM PDT | | | | | Starting Zoya 01/14/18 at 0829, | | | | | | | Until Zoya 01/14/18 at 1046, severe | | | | | | | pain while in Phase I Recovery | | | | | | + +-------+ +--------+---+---+ +-------+ +--------+---+---+ | Given | 01/15/20 | 50 mcg | | | | | 18 9:21 | | | | | | AM PDT | | | | +-------+ +--------+---+---+ + +---+ | | | + +---+ | fentaNYL (SUBLIMAZE) injection | | | 1 dose, Starting [facility] 01/14/18 at | | | 0919, Until [facility] 01/14/18 at 0921 | | + +---+ | | | + +---+ + +-------+ +-------+---+---+ | furosemide (LASIX) tablet 20 mg | Given | 01/17/20 | 20 mg | | | | 20 mg, oral, EVERY 48 HOURS, | | 18 11:30 | | | | | First dose (after last | | AM PDT | | | | | modification) on [facility] 01/16/18 at | | | | | | | 1115, Until Discontinued | | | | | | + +-------+ +-------+---+---+ +---+---+ | | | +---+---+ + +-------+ +-------+---+---+ | hydrALAZINE (APRESOLINE) | Given | 01/14/20 | 10 mg | | | | injection 10 mg 10 mg, | | 18 5:16 | | | | | intravenous, EVERY 6 HOURS | | AM PDT | | | | | NEEDED, Starting Thu01/13/18 at | | | | | | | 0337, Until Thu01/13/18 at 0718, | | | | | | | hypertension, first line | | | | | | + +-------+ +-------+---+---+ +---+---+ | | | +---+---+ + +-------+ +-------+---+---+ | hydrALAZINE (APRESOLINE) | Given | 01/16/20 | 10 mg | | | | injection 10 mg 10 mg, | | 18 1:07 | | | | | intravenous, EVERY 4 HOURS | | AM PDT | | | | | NEEDED, Starting Thu01/13/18 at | | | | | | | 0730, Until Thu01/18/18 at 0740, | | | | | | | hypertension, first line | | | | | | + +-------+ +-------+---+---+ +---+---+ | | | +---+---+ + +-------+ +-------+---+---+ | hydrALAZINE (APRESOLINE) | Given | 01/14/20 | 20 mg | | | | injection 20 mg 20 mg, | | 18 3:15 | | | | | intravenous, ONCE, 1 dose, Thu | | AM PDT | | | | | 01/13/18 at 0300 | | | | | | + +-------+ +-------+---+---+ +---+---+ | | | +---+---+ + +-------+ +-------+---+---+ | hydrALAZINE (APRESOLINE) tablet | Given | 01/17/20 | 10 mg | | | | 10 mg 10 mg, oral, FOUR TIMES | | 18 8:12 | | | | | DAILY, First dose on Thu01/13/18 | | AM PDT | | | | | at 0915, Until Discontinued | | | | | | + +-------+ +-------+---+---+ +-------+ +-------+---+---+ | Given | 01/16/20 | 10 mg | | | | | 18 9:14 | | | | | | PM PDT | | | | +-------+ +-------+---+---+ | Given | 01/16/20 | 10 mg | | | | | 18 7:21 | | | | | | PM PDT | | | | +-------+ +-------+---+---+ +---+---+ | | | +---+---+ + +-------+ +--------+---+---+ | HYDROmorphone (DILAUDID) | Given | 01/14/20 | 0.4 mg | | | | injection 0.25-0.5 mg 0.25-0.5 | | 18 2:13 | | | | | mg, intravenous, EVERY 6 HOURS | | AM PDT | | | | | NEEDED, Starting Thu01/13/18 at | | | | | | | 0200, Until Thu01/13/18 at 0453, | | | | | | | severe pain | | | | | | + +-------+ +--------+---+---+ +---+---+ | | | +---+---+ + +-------+ +--------+---+---+ | HYDROmorphone (DILAUDID) | Given | 01/15/20 | 0.5 mg | | | | injection 0.5-1 mg 0.5-1 mg, | | 18 11:28 | | | | | intravenous, EVERY 6 HOURS | | AM PDT | | | | | NEEDED, Starting Thu01/13/18 at | | | | | | | 0453, Until Thu01/15/18 at 1224, | | | | | | | severe pain | | | | | | + +-------+ +--------+---+---+ +---+---+ | | | +---+---+ + +---------+ +--------+---+---+ | lactated Ringers IV 500 mL, | New Bag | 01/14/20 | 500 mL | | | | intravenous, ONCE, 1 dose, Thu | | 18 5:21 | | | | | 01/13/18 at 0500 | | AM PDT | | | | + +---------+ +--------+---+---+ + +---+ | | | + +---+ | lactulose (ENULAC) liquid 10 g | | | 10 g (15 mL), oral, TWICE DAILY | | | NEEDED, Starting 01/17/18 | | | at 1647, Until 01/18/18 at | | | 1928, constipation 3rd [...] PDT | | | | | Until 01/18/18 at 1928, second | | | | [...] +--------+---+---+ | metoprolol succinate | Given | 01/17/20 | 100 mg | | | | (TOPROL-XL) tablet 100 mg 100 | | 18 8:12 | | | | | mg, oral, DAILY, First dose on | | AM PDT | | | | | Zoya 01/14/18 at 1645, Until | | | | | | | Discontinued | | | | | | + +-------+ +--------+---+---+ +-------+ +--------+---+---+ | Given | 01/16/20 | 100 mg | | | | | 18 9:42 | | | | | | AM PDT | | | | +-------+ +--------+---+---+ | Given | 01/15/20 | 100 mg | | | | | 18 5:57 | | | | | | PM PDT | | | | +-------+ +--------+---+---+ +---+---+ | | | +---+---+ + +-------+ +-------+---+---+ | metoprolol tartrate (LOPRESSOR) | Given | 01/15/20 | 25 mg | | | | tablet 25 mg 25 mg, oral, EVERY | | 18 1:55 | | | | | 6 HOURS, First dose on Wed | | PM PDT | | | | | 01/13/18 at 0445, Until | | | | | | | Discontinued | | | | | | + +-------+ +-------+---+---+ +-------+ +-------+---+---+ | Given | 01/15/20 | 25 mg | | | | | 18 3:50 | | | | | | AM PDT | | | | +-------+ +-------+---+---+ | Given | 01/14/20 | 25 mg | | | | | 18 9:49 | | | | | | [...] | nicotine polacrilex (COMMIT) | | | kaliage 2 mg 2 mg, oral, EVERY 1 | | | HOUR NEEDED, Starting Zoya | | | 01/14/18 at 1619, Until Mon | | | 01/18/18 at 1928, Withdrawal | | | symptoms | | [...] | | | | | 0417, Until Thu01/18/18 at 1928, | | | [...] sirolimus (RAPAMUNE) tablet 3 | Given | 01/14/20 | 3 mg | | | | mg 3 mg, oral, DAILY, First dose | | 18 8:35 | | | | | on Thu01/13/18 at 0900, Until | | AM PDT [...]
--- OUTSIDE RECORDS SUMMARY | ~2019-05-14 | XMS | Encounter Summary ---
Demographics + + + | Address | [address] | | | [place] [address] | + + + | Home Phone [...] + + + | Author | [facility] | + + + | Organization | [facility] | + [...] Team Providers + +------+ + | Care Mold Machine Operator Name | Role | Phone [...] Description | +--------+--------+ + + + | 02/27/ | Refill | Transplant | Brittney Pratt | Refill Request | | 2016 | | Coordin[address] | MD Kiah [address] | | | | | [address] | [place], [place] | | | | | [place], [place] | [address] | | | | | [address] | [phone] | | | | | [phone] | | | +--------+--------+ + + + [...] | | | | | [place], | | | | | | [place] [address] | | | | | | [phone] | | | | | | | | +--------+---------+ + + + documented as of this encounter Visit Diagnoses Not on filedocumented in this encounter"
--- OUTSIDE RECORDS SUMMARY | ~2019-05-14 | XMS | Encounter Summary ---
Demographics + + + | Address | [address] | | | [place] [address] | + + + | Home Phone [...] + + | Author | [facility] | + + + | Organization | [facility] | + + [...] Team Providers + +------+ + | Care Certified Pest Control Technician Name | Role | Phone | + +------+ + | Ritesh England PA-C | PCP | | + +------+ + Encounter Details +--------+------+ + + + | Date | Type | Department | Care Team | Description | +--------+------+ + + + | 11/17/ | Lab | Laboratory, | | Liver replaced by | | 2017 | | Specimen Collection | | transplant (HCC) | | | | at [facility] 3rd Floor | | | | | | [address] | | | | | | [place], | | | | | | [place] [address] | | | | | | [phone] | | | +--------+------+ + + + Social History + + [...] | | | | | [place], | | | | | | [place] [address] | | | | | | [phone] | | | | | | | | +--------+---------+ + + + documented as of this encounter Procedures + +--------+ + + + | Procedure Name | Priori | Date/Time | Associated Diagnosis | Comments | | | ty | | | | + +--------+ + + + | CBC AND AUTO DIFF | Routin | 11/17/2017 | Liver replaced by | Results for this | | | e | 9:47 AM | transplant (HCC) | procedure are in the | | | | PDT | | results section. | + +--------+ + + + | HEPATITIS C | Routin | 11/17/2017 | Liver replaced by | Results for this | | GENOTYPING, PLASMA | e | 9:47 AM | transplant (HCC) | procedure are in the | | | | PDT | | results section. | + +--------+ + + + | HEPATITIS C | Routin | 11/17/2017 | Liver replaced by | Results for this | | QUANTITATIVE, PLASMA | e | 9:47 AM | transplant (HCC) | procedure are in the | | | | PDT | | results section. | + +--------+ + + + | INR | Routin | 11/17/2017 | Liver replaced by | Results for this | | | e | 9:47 AM | transplant (HCC) | procedure are in the | | | | PDT | | results section. | + +--------+ + + + | CBC, WITH | Routin | 11/17/2017 | Liver replaced by | Results for this | | DIFFERENTIAL | e | 9:47 AM | transplant (HCC) | procedure are in the | | | | PDT | | results section. | + +--------+ + + + | SIROLIMUS | Routin | 11/17/2017 | Liver replaced by | Results for this | | QUANTITATION, WHOLE | e | 9:47 AM | transplant (HCC) | procedure are in the | | BLOOD | | PDT | | results section. | + +--------+ + + + | COMPLETE METABOLIC | Routin | 11/17/2017 | Liver replaced by | Results for this | | SET | e | 9:47 AM | transplant (HCC) | procedure are in the | | (NA,K,CL,CO2,BUN,CRE | | PDT | | results section. | | AT,GLUC,CA,AST,ALT,B | | | | | | YAYO TOTAL,ALK | | | | | | PHOS,ALB,PROT TOTAL) | | | | | + +--------+ + + + | PHOSPHORUS, PLASMA | Routin | 11/17/2017 | Liver replaced by | Results for this | | | e | 9:47 AM | transplant (HCC) | procedure are in the | | | | PDT | | results section. | + +--------+ + + + | BILIRUBIN DIRECT | Routin | 11/17/2017 | Liver replaced by | Results for this | | | e | 9:47 AM | transplant (HCC) | procedure are in the | | | | PDT | | results section. | + +--------+ + + + | URIC ACID, PLASMA | Routin | 11/17/2017 | Liver replaced by | Results for this | | | e | 9:47 AM | transplant (HCC) | procedure are in the | | | | PDT | | results section. | + +--------+ + + + | MAGNESIUM, PLASMA | Routin | 11/17/2017 | Liver replaced by | Results for this | | | e | 9:47 AM | transplant (HCC) | procedure are in the | | | | PDT | | results section. | + +--------+ + + + documented in this encounter Results CBC AND AUTO DIFF (11/17/2017 9:47 AM PDT) + + + + + + | Component | Value | Ref Range | Performed | Pathologist | | | | | At | Signature | + + + + + + | WHITE CELL | 4.47 | 3.50 - 10.80 | [facility] | | | COUNT | | K/cu mm | LABORATORY | | | | | | SERVICES, | | | | | | CORE | | + + + + + + | RED CELL | 4.74 | 4.50 - 6.00 | [facility] | | | COUNT | | M/cu mm | LABORATORY | | | | | | SERVICES, | | | | | | CORE | | + + + + + + | HEMOGLOBIN | 14.2 | 13.5 - 17.5 | [facility] | [...] | MCV | 86.3 | 80.0 - 96.0 fL | [facility] | | | | | | LABORATORY | | | | | | SERVICES, | | | | | | CORE | | + + + + + + | MCHC | 34.7 | 33.0 - 35.5 | [facility] | | | | | g/dL | LABORATORY | | | | | | SERVICES, | | | | | | CORE | | + + + + + + | RDW SD | 42.6 | 35.1 - 46.3 fL | [facility] | | | | | | LABORATORY | | | | | | SERVICES, | | | | | | CORE | | + + + + + + | PLATELET | 167 | 150 - 400 K/cu | [facility] | | | COUNT | | mm | LABORATORY | | | | | | SERVICES, | | | | | | CORE | | + + + + + + | MPV | 8.7 (L) | 9.7 - 12.3 fL | [...] + + + + | NEUTROPHIL | 61.3 | 50.0 - 70.0 % | [facility] | | | % | | | LABORATORY | | | | | | SERVICES, | | | | | | CORE | | + + + + + + | LYMPHOCYTE | 27.7 | 18.0 - 42.0 % | [facility] | | | % | | | LABORATORY | | | | | | SERVICES, | | | | | | CORE | | + + + + + + | MONOCYTE % | 6.5 | 3.5 - 9.0 % | [facility] | | | | | | LABORATORY | | | | | | SERVICES, | | | | | | CORE | | + + + + + + | EOS % | 3.6 (H) | 1.0 - 3.0 % | [facility] [...] + + + + | NEUTROPHIL | 2.74 | 1.80 - 7.70 | [facility] | | | # | | K/cu mm | LABORATORY | | | | | | SERVICES, | | | | | | CORE | | + + + + + + | LYMPHOCYTE | 1.24 | 1.00 - 4.80 | [facility] | | | # | | K/cu mm | LABORATORY | | | | | | SERVICES, | | | | | | CORE | | + + + + + + | MONOCYTE # | 0.29 | 0.10 - 0.90 | [facility] | | | | | K/cu mm | LABORATORY | | | | | | SERVICES, | | | | | | CORE | | + + + + + + | EOS # | 0.16 | 0.00 - 0.50 | [facility] | [...] + + | New reference ranges for IG% and IG# effective 08/23/2017. | [facility] | | Increased immature granulocytes (IG) define a left shift. Immature | LABORATORY | | granulocytes (IG) are an automated count of metamyelocytes, myelocytes | SERVICES, CORE | | and promyelocytes. Bands are not included in the IG count. Bands are | | | included in the neutrophil count. | | + + + + + + + + | Performing | Address | City/State/Zipcode | Phone Number | | Organization | | | | + + + + + | [facility] | [address] | [place] [address] | | | SERVICES, CORE | [address] | | | + + + + + INR (11/17/2017 9:47 AM PDT) + +-------+ [...] | + + + + + | [facility] | [address] | [place] [address] | | | SERVICES, CORE | [address] | | | + + + + + HEPATITIS C GENOTYPING, PLASMA (11/17/2017 9:47 AM PDT) + + + + + + | Component | Value | Ref Range | Performed | Pathologist | | | | | At | Signature | + + + + + + | HEP C | Indeterminate | Undetected, | [facility] | | | GENOTYPE | | Indeterminate [...] definitively determine the genotype of the | [facility] | | hepatitis C virus species present [...] characteristics | | | determined by the [facility]. It has not been | | | cleared or approved by the Food and Drug Administration. FDA | | | approval is not required for clinical use of this test, and therefore | | | validation was done as required under the requirements of the Clinical | | | Laboratory Improvement Act of 1988. The [facility] | | | Laboratory is a fully licensed and/or accredited clinical laboratory | | | under CLIA, CAP, and the [facility]. | | + + + + + + + + | Performing | Address | City/State/[facility] | Phone Number | | Organization | | | | + + + + + | [facility] | [address] | [place] [address] | | | DIAGNOSTIC | [address] | | | | LABORATORIES | | | | + + + + + HEPATITIS C QUANTITATIVE, PLASMA (11/17/2017 9:47 AM PDT) + + + + + + | Component | Value | Ref Range | Performed | Pathologist | | | | | At | Signature | + + + + + + | HEP C PCR | 2,500,000 (H) | Undetected | [facility] | | | QUANT, | | IU/mL | DIAGNOSTIC | | | VALUE | | | | | | | | | LABORATORIE | | | | | | S | | + + + + + + + + | Specimen | + + | Blood - Blood | | (substance) | + + + + + | Narrative | Performed At | + + + | Reportable Range: 12-100,000,000 IU/mL Low levels or serial | [facility] | | declines in the HCV viral load may indicate the relative efficacy of | DIAGNOSTIC | | anti-viral therapy. Viral load changes of less than approximately 3 | LABORATORIES | | fold may not be biologically significant and should be interpreted | | | cautiously. Undetected results are suggestive of either the absence | | | of HCV viremia or the presence of low-level HCV viremia below the | | | assay's detection limit. | | + + + + + + + + | Performing | Address | City/State/Zipcode | Phone Number | | Organization | | | | + + + + + | [facility] | [address] | [place] [address] | | | DIAGNOSTIC | [address] | | | | LABORATORIES | | | | + + + + + SIROLIMUS QUANTITATION, WHOLE BLOOD (11/17/2017 9:47 AM PDT) + +-------+ + + + | Component | Value | Ref Range | Performed | Pathologist | | | | | At | Signature | + +-------+ + + + | SIROLIMUS, | 9.5 | 4.0 - 12.0 | [facility] | [...] | Test performed by immunoassay using [employer] i2000. | [facility] | | Kidney transplant [...] [facility] | [address] | [place] [address] | | | SERVICES, SPECIAL | [address] | | | | IMM + COAG | | | | + + + + + URIC ACID, PLASMA (11/17/2017 9:47 AM PDT) + +-------+ + + + | Component | Value | Ref Range | Performed | Pathologist | | | | | At | Signature | + +-------+ + + + | URIC ACID, | 5.4 | 3.7 - 8.0 mg/dL | [facility] | | | PLASMA [...] | + + + + + | [facility] | [address] | [place] [address] | | | SERVICES, CORE | [address] | | | + + + + + BILIRUBIN DIRECT (11/17/2017 9:47 AM PDT) + +---------+ + + + | Component | Value | Ref Range | Performed | Pathologist | | | | | At | Signature | + +---------+ + + + | BILIRUBIN | 0.1 | 0.0 - 0.3 mg/dL | [facility] | | | DIRECT | | | LABORATORY | | | | | | SERVICES, | | | | | | CORE | | + +---------+ + + + | BILI D CMNT | No Hemo | | [facility] [...] [facility] | [address] | [place] [address] | | | SERVICES, CORE | [address] | | | + + + + + PHOSPHORUS, PLASMA (11/17/2017 9:47 AM PDT) + +-------+ + [...] [facility] | [address] | [place] [address] | | | SERVICES, CORE | [address] | | | + + + + + MAGNESIUM, PLASMA (11/17/2017 9:47 AM PDT) + +-------+ + + + | Component | Value | Ref Range | Performed | Pathologist | | | | | At | Signature | + +-------+ + + + | MAGNESIUM,P | 1.8 | 1.6 - 2.6 mg/dL | [facility] [...] [facility] | [address] | [place] [address] | | | SERVICES, CORE | [address] | | | + + + + + COMPLETE METABOLIC SET (NA,K,CL,CO2,BUN,CREAT,GLUC,CA,AST,ALT,BILI TOTAL,ALK PHOS,ALB,PROT TOTAL) (11/17/2017 9:47 AM PDT) + +---------+ + + + [...] +---------+ + + + | CREATININE | 1.16 | 0.70 - 1.30 | [facility] | | | PLASMA | | mg/dL | LABORATORY | | | (LAB) | | | SERVICES, | | | | | | CORE | | + +---------+ + + + | EGFR | >60 | >60 mL/min | [facility] | | | - | | | LABORATORY | | | TRISTANIAN | | | SERVICES, | | | | | | CORE | | + +---------+ + + + | EGFR NON | >60 | >60 mL/min | [facility] | | | -JAE | | | LABORATORY | | | RICAN | | | SERVICES, | | | | | | CORE | | + +---------+ + + + | SODIUM, | 138 [...] +---------+ + + + | CALCIUM(ALB | 9.0 [...] +---------+ + + + | TOTAL | 7.9 | 6.4 - 8.2 g/dL | [facility] | | | PROTEIN, | | | LABORATORY | | | PLASMA | | | SERVICES, | | | (LAB) | | | CORE | | + +---------+ + + + | ALBUMIN, | 3.9 | 3.5 - 4.7 g/dL | [facility] | | | PLASMA | | | LABORATORY | | | (LAB) | | | SERVICES, | | | | | | CORE | | + +---------+ + + + | ALK PHOS | 107 | 53 - 128 U/L | [facility] [...] | + + + + + | [facility] | [address] | [place] [address] | | | SERVICES, CORE | [address] | | | + + + + + documented in this encounter Visit Diagnoses + + | Diagnosis | + + | Liver replaced by transplant (HCC) Liver replaced by transplant | + + documented in this encounter"
--- OUTSIDE RECORDS SUMMARY | ~2019-05-14 | XMS | Encounter Summary ---
Demographics + + + | Address | [address] | | | [place] [address] | + + + | Home Phone [...] + | Author | [facility] | + + + | Organization | [facility] | + + [...] Team Providers + +------+ + | Care Profile Grinder Name | Role | Phone | + +------+ + | No Pcp Per Patient | PCP | Unavailable | + +------+ + Encounter Details +--------+ + + + + | Date | Type | Department | Care Team | Description | +--------+ + + + + | 12/13/ | Documentati | Otolaryngology | Leon Hernandez, | | | 2009 | on | Head and Neck | MD [address] | | | | | Surgery Services at | [facility] | | | | | PPV [address] | [place], [place] | | | | | [place] | [address] | | | | | Mailcode: GUSTAVO | [phone] | | | | | [address] | | | | | | [place], [place] | | | | | | [address] | | | | | | [phone] | | | +--------+ + + + [...] | | | | | [address] [place], | | | | | | [place] [address] | | | | | | [phone] | | | | | | | | +--------+---------+ + + + documented as of this encounter Visit Diagnoses Not on filedocumented in this encounter"
--- OUTSIDE RECORDS SUMMARY | ~2019-05-14 | XMS | Encounter Summary ---
Demographics + + + | Address | [address] | | | [place] [address] | + + + | Home Phone | | + + + | Preferred Language | Unknown | + + + | Marital Status | Single | + + + | Uatsdin Affiliation | BAP | + + + | Race | White | + + + | Ethnic Group | Not or | + + + Author + + + | Author | [facility] | + + + | Organization | [facility] | + + + [...] Team Providers + +------+ + | Care Medication Aid Name | Role | Phone | + [...] | | | | | | | Rd [facility] | | | | | | | Hospital | | | | | | | [place], [place] | | | | | | | [address] | | | | | | | Phone: | | | | | | | [phone] | +--------+--------+ + + + + Encounter Details +--------+ + + + + | Date | Type | Department | Care Team | Description | +--------+ + + + + | 09/09/ | Anesthesia | 6A Intra Op [facility] | Bruno Field MD | | | 2019 | Event | Main Hospital | [address] | | | | | Admitting Desk | [address] [address] [place], | | | | | Located on the | [place] [address] | | | | | floor [address] | [phone] | | | | | [address] | | | | | | [place], [place] | [place], | | | | | [address] | THREAD CUTTER [address] | | | | | | [address] | | | | | | [place], [place] | | | | | | [address] | | | | | | [phone] | | | | | | | | +--------+ + + + + Anesthesia Record + + + + + | Procedure Name | Responsible | Anesthesia Start | Anesthesia Stop Time | | | Anesthesiologist | Time | | + + + + + | EXCISION OF RIGHT | Bruno Field MD | 09/09/18 1333 | 09/09/18 5536 | | FACIAL LESIONS, | | | [...] 2 mg | + + + | fentaNYL | 50 mcg | + + + | lidocaine 2% | 100 mg | + + + | propofol | 200 mg | + + + | rocuronium | 50 mg | + + + | labetalol | 10 mg | + + + | dexamethasone | 4 mg | + + + | ceFAZolin | 2,000 mg | + + + | glycopyrrolate | 0.3 mg | + + + | PHENYLEPHrine | 550 mcg | + + + | ePHEDrine | 15 mg | + + + | sugammadex (BRIDION) IV | 200 mg | + + + | LR | 900 mL | + + + + + | Name | + + | O2 FR Avance (Total Liters) | + + | Insp Sevo | + + | Et Sevo | + + | Insp Iso | + + | Et Iso | + + | Insp N2O % [...] via | 09/09/18 1443 by | 09/09/18 1459 by | | | procedure documentation); | Desire N Jamey, | Desire N Jamey, | | | Endotracheal Tube; 7.5; Oral; [...] | | | | | [place], | | | | | | [place] [address] | | | | | | [phone] | | | | | | | | +--------+---------+ + + + documented as of this encounter Procedures + +--------+ + + + | Procedure Name | Priori | Date/Time | Associated Diagnosis | Comments | | | ty | | | | + +--------+ + + + | LILY ETT | Routin | 09/09/2018 | | Results for this | | | e | 2:42 PM | | procedure are in the | | | | PST | | results section. | + +--------+ + + + documented in this encounter Results LILY ETT (09/09/2018 2:42 PM PST) + + + | Narrative | Performed At | + + + | Maryanne Concepcion MD 09/09/2018 2:43 PM Procedure Reason | | | for Intubation: For surgical procedure, Location Performed: [place] , | | | Mask Ventilation Grade 2 - Ventilated by mask with oral | | | airway/adjuvant Intubation Atraumatic laryngoscopy: Atraumatic | | | Laryngoscopy, Intubation adjuncts: Stylet used , Laryngoscopic view: | | | Grade I, Fiberoptics used: Glidescope , Number of Attempts: 1, | | | Positive for EtCO2: Yes, Breath sounds: Bilateral and equal | | | ETT ETT Size: 7.5 ETT secured with: adhesive tape Depth at Lip: | | | 23 Cm Narrative Attending: BRUNO FIELD Intubated by | | | MS4 [place] with for educational purposes. Atraumatic | | | intubation. | | + + + documented in this encounter Visit Diagnoses Not on filedocumented in this encounter Administered Medications + +--------+ + +------+------+ | Medication Order | MAR | Action | Dose | Rate | Site | | | Action | Date | | | | + +--------+ + +------+------+ | ceFAZolin (ANCEF) injection | Given | 09/09/19 | 2,000 mg | | | | INTRAPROCEDURE PRN, Starting Zoya | | 19 2:15 | | | | | 09/09/18 at 1415, Until Zoya 09/09/18 | | PM PST | | | | | at 1501 | | | | | | + +--------+ + +------+------+ +---+---+ | | | +---+---+ + +-------+ +------+---+---+ | dexamethasone (DECADRON) | Given | 09/09/19 | 4 mg | | | | injection INTRAPROCEDURE PRN, | | 19 2:25 | | | | | Starting Zoya 09/09/18 at 1425, | | PM PST | | | | | Until Zoya 09/09/18 at 1501 | | | | | | + +-------+ +------+---+---+ +---+---+ | | | +---+---+ + +-------+ +------+---+---+ | ePHEDrine injection | Given | 09/09/19 | 5 mg | | | | INTRAPROCEDURE PRN, Starting Zoya | | 19 2:08 | | | | | 09/09/18 at 1406, Until Zoya 09/09/18 | | PM PST | | | | | at 1501 | | | | | | + +-------+ +------+---+---+ +-------+ +-------+---+---+ | Given | 09/09/19 | 10 mg | | | | | 19 2:06 | | | | | | PM PST | | | | +-------+ +-------+---+---+ +---+---+ | | | +---+---+ + +-------+ +--------+---+---+ | fentaNYL (SUBLIMAZE) injection | Given | 09/09/19 | 50 mcg | | | | INTRAPROCEDURE PRN, Starting Zoya | | 19 1:58 | | | | | 09/09/18 at 1358, Until Zoya 09/09/18 | | PM PST | | | | | at 1501 | | | | | | + +-------+ +--------+---+---+ +---+---+ | | | +---+---+ + +-------+ +--------+---+---+ | glycopyrrolate (ROBINUL) | Given | 09/09/19 | 0.3 mg | | | | injection INTRAPROCEDURE PRN, | | 19 2:11 | | | | | Starting Zoya 09/09/18 at 1411, | | PM PST | | | | | Until Zoya 09/09/18 at 1501 | | | | | | + +-------+ +--------+---+---+ +---+---+ | | | +---+---+ + +-------+ +-------+---+---+ | labetalol (TRANDATE) IV | Given | 09/09/19 | 10 mg | | | | injection intravenous, | | 19 1:39 | | | | | INTRAPROCEDURE PRN, Starting Zoya | | PM PST | | | | | 09/09/18 at 1339, Until Zoya 09/09/18 | | | | | | | at 1501 | | | | | | + +-------+ +-------+---+---+ +---+---+ | | | +---+---+ + + + +---+---+---+ | lactated Ringers IV | given by | 09/09/19 | | | | | INTRAPROCEDURE CONTINUOUS PRN, | | 19 2:46 | | | | | Starting Zoya 09/09/18 at 1333, | anesthes | PM PST | | | | | Until Zoya 09/09/18 at 1501 | iology | | | | | + + + +---+---+---+ +---------+ +---+---+---+ | New Bag | 09/09/19 | | | | | | 19 1:33 | | | | | | PM PST | | | | +---------+ +---+---+---+ +---+---+ | | | +---+---+ + +-------+ +--------+---+---+ | lidocaine (XYLOCAINE MPF) 2 % | Given | 09/09/19 | 100 mg | | | | (20 mg/mL) injection | | 19 1:59 | | | | | INTRAPROCEDURE PRN, Starting Zoya | | PM PST | | | | | 09/09/18 at 1359, Until Zoya 09/09/18 | | | | | | | at 1501 | | | | | | + +-------+ +--------+---+---+ +---+---+ | | | +---+---+ + +-------+ +------+---+---+ | midazolam (PF) (VERSED) | Given | 09/09/19 | 2 mg | | | | injection INTRAPROCEDURE PRN, | | 19 1:40 | | | | | Starting Zoay 09/09/18 at 1340, | | PM PST | | | | | Until Zoya 09/09/18 at 1501 | | | | | | + +-------+ +------+---+---+ +---+---+ | | | +---+---+ + +-------+ +---------+---+---+ | PHENYLEPHrine 100 mcg/mL IV | Given | 09/09/19 | 100 mcg | | | | syringe INTRAPROCEDURE PRN, | | 19 2:13 | | | | | Starting Zoya 09/09/18 at 1411, | | PM PST | | | | | Until Zoya 09/09/18 at 1501 | | | | | | + +-------+ +---------+---+---+ +-------+ +---------+---+---+ | Given | 09/09/19 | 150 mcg | | | | | 19 2:11 | | | | | | PM PST | | | | +-------+ +---------+---+---+ | Given | 09/09/19 | 100 mcg | | | | | 19 2:08 | | | | | | PM PST | | | | +-------+ +---------+---+---+ +---+---+ | | | +---+---+ + +-------+ +--------+---+---+ | propofol (DIPRIVAN) injection | Given | 09/09/19 | 200 mg | | | | INTRAPROCEDURE PRN, Starting Zoya | | 19 1:59 | | | | | 09/09/18 at 1359, Until Zoya 09/09/18 | | PM PST | | | | | at 1501 | | | | | | + +-------+ +--------+---+---+ +---+---+ | | | +---+---+ + +-------+ +-------+---+---+ | rocuronium (ZEMURON) injection | Given | 09/09/19 | 50 mg | | | | INTRAPROCEDURE PRN, Starting Zoya | | 19 1:59 | | | | | 09/09/18 at 1359, Until Zoya 09/09/18 | | PM PST | | | | | at 1501 | | | | | | + +-------+ +-------+---+---+ +---+---+ | | | +---+---+ + +-------+ +--------+---+---+ | sugammadex (BRIDION) IV | Given | 09/09/19 | 200 mg | | | | INTRAPROCEDURE PRN, Starting Zoya | | 19 2:51 | | | | | 09/09/18 at 1451, Until Zoya 09/09/18 | | PM PST | | | | | at 1501 | | | | | | + +-------+ +--------+---+---+ +---+---+ | | | +---+---+ documented in this encounter"
--- OUTSIDE RECORDS SUMMARY | ~2019-05-14 | XMS | Encounter Summary ---
Demographics + + + | Address | [address] | | | [place] [address] | + + + | Home Phone [...] + | Author | [facility] | + + + | Organization | [facility] [facility] | + + + [...] Team Providers + +------+ + | Care Merchandise Director Name | Role | Phone | [...] Clinic | | | | | | [facility], Room [address] | | | | | | [place], [place] | | | | | | [address] | | | | | | [phone] | | | +--------+--------+ + + + [...] | | | | | [address] [place], | | | | | | [place] [address] | | | | | | [phone] | | | | | | | | +--------+---------+ + + + documented as of this encounter Visit Diagnoses Not on filedocumented in this encounter"
--- OUTSIDE RECORDS SUMMARY | ~2019-05-14 | XMS | Encounter Summary ---
Demographics + + + | Address | [address] | | | [place] [address] | + + + | Home Phone | | + + + | Preferred Language | Unknown | + + + | Marital Status | Single | + + + | Yazdanism Affiliation | [id number] | + + + | Race | Unknown | + + + | Ethnic Group | Unknown | + + + Author + + + | Author | [facility] | | | and [place] | + + + | Organization | [facility] | | | and [place] | + + + | Address | Unknown | + + + | Phone | Unavailable | + + + Support + + + + + | Name | Relationship | Address | Phone | + + + + + | Brenda Jones | ECON | [place] | | | | | [address] | | + + + + + | Katarzyna Luke | ECON | , [place] | | + + + + + | chele townsend | ECON | Unknown | | + + + + + Care Team Providers + +------+ + | Care Safe Expert Name | Role | Phone | + +------+ + | Ritesh England PA-C | PCP | | + +------+ + Reason for Visit +--------+ + | Reason | Comments | +--------+ + | Other | update on status, patient needs sooner appointment | +--------+ + Encounter Details +--------+ + + + + | Date | Type | Department | Care Team | Description | +--------+ + + + + | 05/12/ | Telephone | [facility] | Nell, | Other (update on | | 2019 | | CARDIOLOGY [address] | BELEM Perkins [address] | status, patient | | | | [place], | [place], | needs sooner | | | | [place] [address] | [place] [address] | appointment) | | | | [phone] | [phone] | | | | | | | [...] [place], | | | | | | [place] [address] | | | | | | [phone] | | | | | | | | +--------+---------+ + + + documented as of this encounter Visit Diagnoses Not on filedocumented in this encounter"
--- OUTSIDE RECORDS SUMMARY | ~2019-05-14 | XMS | Encounter Summary ---
Demographics + + + | Address | [address] | | | [place] [address] | + + + | Home Phone [...] + | Author | [facility] | + + + | Organization | [facility] | + + + | [...] Team Providers + +------+ + | Care Plant Security Guard Name | Role | Phone | + +------+ + | Sylvester Scherer DO | PCP | | + +------+ + Reason for Visit Diagnostic Testing (Routine) +--------+--------+ + + + [...] | | | cell cancer | [address] | [address] | | | | | of external | Leo | Mailcode: | | | | | ear, right | [facility] | [facility] | | | | | Procedures | [place], [place] | [facility] | | | | | MRI FACE | [address] | and Healing, | | | | | SINUS | | [address], | | | | | [address]OT[address] | | 3rd Floor | | | | | SKULL BASE | | [place], [place] | | | | | WWO CONTRAST | | [address] | | | | | | | Phone: | | | | | | | [phone] | | | | | | | Fax: | | | | | | | [phone] | +--------+--------+ + + + + Encounter Details +--------+ + + + + | Date | Type | Department | Care Team | Description | +--------+ + + + + | 01/03/ | Hospital | Diagnostic Imaging | | | | 2015 | Encounter | Services at [facility] | | | | | | [address] | | | | | | [place] Mailcode: | | | | | | [address] | | | | | | [facility] | | | | | | [place], [place] | | | | | | [address] | | | | | | [phone] | | | +--------+ + + + [...] | | | | | [address] [place], | | | | | | [place] [address] | | | | | | [phone] | | | | | | | | +--------+---------+ + + + documented as of this encounter Procedures + +--------+ + + + | Procedure Name | Priori | Date/Time | Associated Diagnosis | Comments | | | ty | | | | + +--------+ + + + | MRI SINUSES WWO | Routin | 01/04/2016 | Squamous cell | Results for this | | CONTRAST | e | 5:46 PM | cancer of external | procedure are in the | | | | PDT | ear, right | results section. | + +--------+ + + + | CREATININE, POC | Routin | 01/04/2016 | Squamous cell | Results for this | | | e | 4:33 PM | cancer of external | procedure are in the | | | | PDT | ear, right | results section. | + +--------+ + + + documented in this encounter Results MRI FACE SINUS PAROTID [...] | | + +---------+ + + | [facility] DEPARTMENT OF | | | | | RADIOLOGY | | | | + +---------+ + + ROUTINE CHEMISTRY TESTS (RADIOLOGY), POC (01/04/2016 4:33 PM PDT) + +-------+ + + + | Component | Value | Ref Range | Performed | Pathologist | | | | | At | Signature | + +-------+ + + + | CREATININE, | 0.9 | 0.7 - 1.3 mg/dL | [facility] - | | | POC | | | [facility] | | | | | | [facility] | | [...] + | SHILA HERNANDEZ | [address] | [place], [place] | | | [facility] | [address] | [address] | | | TESTS | | | | + + + + + documented in this encounter Visit Diagnoses + + | Diagnosis | + + | Squamous cell cancer of external ear, right | + + documented in this encounter"
--- OUTSIDE RECORDS SUMMARY | ~2019-05-14 | XMS | Encounter Summary ---
Demographics + + + | Address | [address] | | | [place] [address] | + + + | Home Phone [...] + + | Author | [facility] | + + + | Organization | [facility] | + + [...] Providers + +------+ + | Care Java J2Ee Architect Name | Role | Phone | + +------+ + PCP | Unavailable | + +------+ + Reason for Visit + + + | Reason | Comments | + + + | Follow-up encounter | | + + + Benefits Check [...] [address] | | | | | | [place], [place] | [facility] | | | | | | [address] | [address] [place], | | | | | | | [place] | | | | | | | [address] | | | | | | | Phone: | | | | | | | [phone] | | | | | | | Fax: | | | | | | | [phone] | +--------+--------+ + + + + Encounter Details +--------+---------+ + + + | Date | Type | Department | Care Team | Description | +--------+---------+ + + + | 11/28/ | Office | Otolaryngology | Leon Hernandez, | Malignant Neoplasm | | 2006 | Visit | Head and Neck | [address] | of Cheek (HCC) | | | | Surgery Services at | [facility] [address] | (Primary Dx) | | | | PPV [address] | [place], [place] | | | | | [facility] [address] | [address] | | | | | Mailcode: [address] | [phone] | | | | | Physician's Keisha | | | | | | [place], [place] | | | | | | [address] | | | | | | [phone] | | | +--------+---------+ + + + [...] + + + | Blood Pressure | 142/92 | 11/28/2005 3:08 PM | | | | | PDT [...] + + + + | Weight | 78.7 kg (173 lb 8 | 11/28/2005 3:08 PM | | | | oz) | PDT | | + + + + + | Height | - | - | | + + + + + | Body Mass Index | 26.38 | 09/17/2005 2:39 PM | | | | | PST | | + + + + + documented in this encounter Progress Leon Preciado - 11/28/2005 3:36 PM PDTFormatting of this note might be different from khai jacobo. Simeon Michaels is a 45 y.o. male He is complaining of a lot of neck & shoulder pain. 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 No Known Allergies. Current outpatient prescriptions: VICODIN 5 MG-500 MG TAB, take 1 tablet by oral route ever y 4-6 hours as needed for pain, Disp: 60, Rfl: 0 Social History Marital Status: Single Spouse Name: [...] noted above. Physical Examination: wound well healed, Flap well healed and viable Parotid gland: Facial nerve - Left facial nerve function is normal and Right facial nerve function is decr eased all branches completely paralyzed Parotid gland - No masses He has rather prominent decrease abduction of the right shoulder but the trapezius strength seems OK. Impression: No evidence of recurrence. R shoulder syndrome Plan: Physical therapy. RTC 3 mos. Leon Hernandez MD Clinical Research Scientist of Otolaryngology, Head & Neck Surgery documented in this encoun ter Plan of Treatment +--------+---------+ + + + | Date | Type | Specialty | Care Team | Description | +--------+---------+ + + + | 06/17/ | Office | Otolaryngology | hSlomo Roach MD | | | 2019 | Visit | | [address] | | | | | | [place], | | | | | | [place] [address] | | | | | | [phone] | | | | | | | | +--------+---------+ + + + documented as of this encounter Visit Diagnoses + + | Diagnosis | + + | 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
--- OUTSIDE RECORDS SUMMARY | ~2019-05-14 | XMS | Encounter Summary ---
Demographics + + + | Address | [address] | | | [place] [address] | + + + | Home Phone | | + + + | Preferred Language | Unknown | + + + | Marital Status | Single | + + + | Druze Affiliation | BAP | + + + | Race | White | + + + | Ethnic Group | Not or | + + + Author + + + | Author | [facility] | + + + | Organization | [facility] [employer] [facility] | + + [...] Team Providers + +------+ + | Care Caul Dresser Name | Role | Phone | + +------+ + | Ritesh England PA-C | PCP | | + +------+ + Encounter Details +--------+ + + + + | Date | Type | Department | Care Team | Description | +--------+ + + + + | 03/04/ | Pharmacy | Outpatient Retail | | | | 2018 | Visit | Clinic Pharmacy | | | | | | [address] | | | | | | [place], | | | | | | [place] [address] | | | +--------+ + + + [...] | | | | | [place] | | | | | | [place] [address] | | | | | | [phone] | | | | | | | | +--------+---------+ + + + documented as of this encounter Visit Diagnoses Not on filedocumented in this encounter"
--- OUTSIDE RECORDS SUMMARY | ~2019-05-14 | XMS | Encounter Summary ---
Demographics + + + | Address | [address] | | | [place] [address] | + + + | Home Phone [...] Author + + + | Author | [facility] | + + + | Organization | [facility] | + + [...] Team Providers + +------+ + | Care Journal Entry Audit Clerk Name | Role | Phone | + +------+ + | Ritesh England PA-C | PCP | | + +------+ + Reason for Visit + + + | Reason | Comments | + + + | Liver Transplant | obtain labs | | Follow Up | | + + + Encounter Details +--------+ + + + + | Date | Type | Department | Care Team | Description | +--------+ + + + + | 11/12/ | Telephone | Transplant | Yvette Perkins RN | Liver Transplant | | 2018 | | Coordinators [address] | [address] | Follow Up (obtain | | | | [address] | [address], | labs) | | | | [place], [place] | [place] [address] | | | | | [address] | | | | | | [phone] | | | +--------+ + + + [...] | | | | | [place], | | | | | | [place] [address] | | | | | | [phone] | | | | | | | | +--------+---------+ + + + documented as of this encounter Results HEPATITIS C QUANTITATIVE, PLASMA (11/17/2017 9:47 AM [...] 12-100,000,000 IU/mL Low levels or serial | [facility] | | declines in the HCV viral [...] | + + + + + | VIMAL | [address] [facility] [facility] [address] | [place] [address] | | | DIAGNOSTIC | [address] | | | | LABORATORIES | | | | + + + + + documented in this encounter Visit Diagnoses + + | Diagnosis | + + | Liver replaced by transplant (HCC) - Primary Liver replaced by transplant | + + documented in this encounter"
--- OUTSIDE RECORDS SUMMARY | ~2019-05-14 | XMS | Encounter Summary ---
Demographics + + + | Address | [address] | | | [place] [address] | + + + | Home Phone | | + + + | Preferred Language | Unknown | + + + | Marital Status | Single | + + + | Anabaptism Affiliation | BAP | + + + [...] Team Providers + +------+ + | Care Bloom Conveyor Operator Name | Role | Phone | [...] as of this encounter Progress Notes Interface, Coat Room Attendant In - 10/21/2005 2:09 AM PST [id number] CHITRA ANN Clinic Date: 09/17/2005 Clinic: Mr. Michaels is a pleasant gentleman who has had a problem with a skin cancer over his ear anterior to the pinna. He has had this resected, radiated, and now it has recurred. He is to come in to get this resected, lateral temporal bone resection, total auriculectomy, parotidectomy, and neck dissection. We had seen him, a full history and physical examination was performed. The H and P is both in the chart as well as in her notes. Intake sheet was filled out. I reviewed all of these notes. There is nothing of relevance in his past history other than as mentioned above. 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 He has no other active ENT disease. The rest of his physical exam is negative. He is going to require a large resection of his tumor. I think that he could be reconstructed with a radial forearm depending on how much of his ear is taken, anterolateral thigh depending on the size of the width, and possibly even a rectus. We discussed all of this with him. He is amenable and physically able to have all of these flaps harvested. A full PARQ conference was held. We will see him again when he goes into surgery, and see what the defect size is. Shlomo Roach MD, FACS, FRCS (C) MKW / [id number] / [id number] / [id number] / [id number] Electronically signed by Shlomo Roach 10-20-2005 12:50:21 PM documented i n this encounter Plan of Treatment +--------+---------+ + + + | Date | Type | Specialty | Care Team | Description | +--------+---------+ + + + | 06/17/ | Office | Otolaryngology | Shlomo Roach MD | | | 2019 | Visit | | [address] | | | | | | [place], | | | | | | [place] [address] | | | | | | [phone] | | | | | | | | +--------+---------+ + + + documented as of this encounter Visit Diagnoses Not on filedocumented in this encounter"
--- OUTSIDE RECORDS SUMMARY | ~2019-05-14 | XMS | Encounter Summary ---
Demographics + + + | Address | [address] | | | [place] [address] | + + + | Home Phone [...] + | Author | [facility] | + + + | Organization | [facility] | + + + [...] Team Providers + +------+ + | Care Workplace Rehabilitation Officer Name | Role | Phone | + +------+ + PCP | Unavailable | + +------+ + Encounter Details +--------+ + + + + | Date | Type | Department | Care Team | Description | +--------+ + + + + | 10/08/ | Telephone | Otolaryngology | Leon Hernandez, | | | 2005 | | Head and Neck | MD [address] | | | | | Surgery Services at | [address] | | | | | PPV [address] | [place], [place] | | | | | [address] | [address] | | | | | Mailcode: [id number] | [phone] | | | | | Josefina Valdes | | | | | | [place], [place] | | | | | | [address] | | | | | | [phone] | | | +--------+ + + + [...] | | | | | Angelica Caal [place], | | | | | | [place] [address] | | | | | | [phone] | | | | | | | | +--------+---------+ + + + documented as of this encounter Visit Diagnoses + + | Diagnosis | + + | 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
--- OUTSIDE RECORDS SUMMARY | ~2019-05-14 | XMS | Encounter Summary ---
Demographics + + + | Address | [address] | | | [place] [address] | + + + | Home Phone | | + + + | Preferred Language | Unknown | + + + | Marital Status | Single | + + + | Baptism Affiliation | BAP | + + + [...] Team Providers + +------+ + | Care Heel Builder Name | Role | Phone | + [...] | | | | | Angelica Ca[address] [place], | | | | | | [place] [address] | | | | | | [phone] | | | | | | | [...] | Transcriptions | + + | Interface, Signal And Communications Maintainer In - 10/21/2005 2:09 AM PST | | [id number] | | [id number] MICHAELS SIMEON | | | | Date: 09/18/2005 | | | | Attending Surgeon: Rose Greenfield M.D. | | Shlomo Roach M.D., FReese.S., F.R.C.S. | | (C) | | | | Senior Quality Engineer(s): Conor Huggins MD | | | | Preoperative Diagnosis(es): | | Right temporofacial osteocutaneous defect. | | | | Postoperative Diagnosis(es): | | Right temporofacial osteocutaneous defect. | | | | Procedures Performed: | | 1. Right rectus abdominus myocutaneous free flap (8- x 12-cm skin | | paddle). | | 2. Right temporofacial reconstruction. | | 3. Reconstruction of anterior rectus sheath with polypropylene mesh. | | 4. Placement of Cook internal Doppler distal to the venous anastomosis. | | | | Anesthesia: | | General endotracheal. | | | | Estimated Blood Loss: | | 500 cc. | | | | Drains: | | Three [place] drains under flap, 2 Leo-Parker drains in neck, and 2 | | Leo-Parker drains in abdomen. | | | | Complications: | | None. | | | | Indications: | | Mr. 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 This | | included a total pinnectomy as well as a lateral temporal bone resection | | and superficial parotidectomy. This resulted in a high-volume defect | | requiring free tissue transfer reconstruction. | | | | Findings: | | A good-quality rectus abdominus myocutaneous free flap was obtained with an | | 8- x 12.5-cm skin paddle. The skin paddle was partially resected as a | | result of excessive bulk in the region requiring reconstruction. Arterial | | anastomosis was from the right inferior epigastric artery to the right | | facial artery in an end-to-end fashion. Venous anastomoses were from 2 | | inferior epigastric veins to 2 right facial vein branches using the 4.0-mm | | and the 3.0-mm couplers. There was a good venous signal at the completion | | of the procedure. | | | | Procedure: | | Resective procedure was completed by Dr. Leon Hernandez and his team. | | Please separate dictation for details of that operation. The defect was | | assessed and found to involve the right temporofacial soft tissues | | including the entirety of the pinna. There was also some gaps in volume to | | the resection of a lateral temporal bone resection and superficial | | parotidectomy were also performed. The decision was made to utilize a | | right rectus abdominus myocutaneous flap for reconstruction of this defect. | | Attention was turned to elevation of the right rectus abdominus flap. The | | skin paddle was measured at 8 x 12.5 cm in the periumbilical region. Skin | | incision was then carried around the skin paddle proximally and distally in | | a paramedian location. The dissection was carried down to the level of the | | anterior rectus sheath using electrocautery. Soft-tissue flaps were | | elevated medially and laterally off of the anterior rectus sheath. | | Dissection was then carried down circumferentially around the level of the | | skin paddle down to the level of the anterior rectus sheath with caution to | | preserve musculocutaneous perforators. The rectus sheath was then opened | | longitudinally, and the rectus abdominus muscle was released off of the | | rectus sheath using electrocautery. Blunt dissection was then used to | | elevate the rectus muscle off of the posterior rectus sheath. Dissection | | was carried down to the insertion of the rectus abdominus muscle on the | | pelvis, and the muscle was divided proximally and distally. The vascular | | pedicle was identified and followed to its origin off of the external iliac | | system. The inferior epigastric veins and 1 inferior epigastric artery | | were sharply, and the vascular pedicle was ligated with 3-0 | | Vicryl suture and divided. The rectus sheath was then irrigated with | | saline solution, and the longitudinal incisions in the sheath were closed | | with a running 0 Prolene suture. At the level of the resection of the skin | | paddle and underlying fascia, polypropylene mesh was cut to shape and was | | secured circumferentially using 0 Prolene suture. Two 10 flat | | Leo-Parker drains were positioned over the rectus sheath, and the | | subcutaneous tissues were approximated with interrupted 2-0 Vicryl sutures. | | Subdermal layers were closed with a running 3-0 Vicryl suture, and the skin | | was closed with a running subcuticular 4-0 Monocryl suture. Skin was | | dried, and Steri-Strips were applied. An abdominal binder was then applied | | at the completion of the operation. Simultaneously, attention was turned | | to reconstruction of the right temporofacial defect. The flap was | | positioned, and the inset was begun using 3-0 Vicryl sutures securing the | | flap circumferentially to the right scalp and face. A subcutaneous tunnel | | was then bluntly created and carried down to the neck incision. The | | pedicle was then passed through this tunnel. Attention was turned to the | | vascular anastomosis. The microscope was positioned in the field, and the | | right facial artery and 2 facial vein branches were cleared of adherent | | tissue and trimmed. A 30-g Heifetz clamp was used for occlusion of the | | vessels. The arteries and veins were dilated and irrigated with | | heparinized saline solution. An end-to-end arterial anastomosis was | | performed using 9-0 nylon suture. The residential program director sizer was then used to | | measure both veins, and end-to-end venous anastomoses were performed using | | the 4.0- mm and 3.0-mm vascular residential program director devices. Occluding clamps were | | removed from the vein first and then from the artery. Perfusion of the | | flap was excellent at the end of ischemic time. Notably, prior to | | completely insetting the flap, it was noted that there was an abundance of | | soft-tissue bulk associated with this flap. Approximately half of the skin | | paddle and subcutaneous tissues were resected off of the flap in order to | | create appropriate tissue bulk. The inset was completed using 3-0 Vicryl | | suture. A Qudini Doppler was then positioned distal to the venous | | anastomosis, and signal was excellent. The neck and flap were inspected | | carefully for hemostasis as there was some persistent oozing in the region. | | Meticulous hemostasis was achieved, and Surgicel was used in the neck to | | accomplish that goal. Once hemostasis was assured, the subcutaneous | | tissues and platysma of the neck were reapproximated using 3-0 Vicryl | | suture. The skin of the neck was closed with running locking 5-0 | | fast-absorbing gut suture. The flap was also finally secured with running | | locking 5-0 fast-absorbing gut suture. The skin was dried, and bacitracin | | was applied. Flap perfusion and Doppler signals were excellent at the | | completion of the procedure. Also notably, two 10 flat Leo-Parker | | drains were positioned in the neck prior to final wound closure, and three | | 1/4-inch [place] drains were positioned radially around the circumference | | of the flap in order to provide adequate sub-flap drainage prior to | | completion of the operation. | | | | Dr. Shlomo Roach was present through the entirety of the operation. | | | | | | | | | | Rose Greenfield M.D. | | | | | | | | Shlomo Roach M.D., F.A.C.S., F.R.C.S. (C) | | | | MES / HS | | [id number] / [id number] / [id number] / | | | | | | E: 09/25/2005 cmw | | | | | | Electronically signed by Shlomo Roach 10-20-2005 12:50:34 PM | + + documented in this encounter Visit Diagnoses Not on filedocumented in this encounter"
--- OUTSIDE RECORDS SUMMARY | ~2019-05-14 | XMS | Encounter Summary ---
Demographics + + + | Address | [address] | | | [place] [address] | + + + | Home Phone [...] + + | Author | [facility] | + + + | Organization | [facility] | + [...] Team Providers + +------+ + | Care County Commissioner Name | Role | Phone | + [...] | +--------+ + + + + | 08/22/ | Abstract | Transplant | Sabrina Guzman, | Care Coordination | | 2016 | | [address]ordinators [address] | RN [address] | (CE check) | | | | [address] | [address] | | | | | Rd [place], [place] | [place], [place] | | | | | [address] | [address] | | | | | [phone] | | | +--------+ + + + [...] | | | | Angelica Caal [place], | | | | | | [place] [address] | | | | | | [phone] | | | | | | | | +--------+---------+ + + + documented as of this encounter Visit Diagnoses Not on filedocumented in this encounter"
--- OUTSIDE RECORDS SUMMARY | ~2019-05-14 | XMS | Encounter Summary ---
Demographics + + + | Address | [address] | | | [place] [address] | + + + | Home Phone [...] + + | Author | [facility] | + + + | Organization | [facility] | [...] Team Providers + +------+ + | Care Gathering Machine Setter Name | Role | Phone | + +------+ + | Ritesh England PA-C | PCP | | + +------+ + Encounter Details +--------+ + + + + | Date | Type | Department | Care Team | Description | +--------+ + + + + | 02/08/ | Telephone | [facility] | [place], | | | 2018 | | Pain Center at | MD [address] | | | | | [facility] | [address], | | | | | [address] | [place] [address] | | | | | Mailcode: [id number] | [phone] | | | | | [facility] | | | | | | and Healing, | | | | | | Building | | | | | | [place], [place] | | | | | | [address] | | | | | | [phone] | | | +--------+ + + + [...] | | | | | Angelica Caal [place], | | | | | | [place] [address] | | | | | | [phone] | | | | | | | | +--------+---------+ + + + documented as of this encounter Visit Diagnoses Not on filedocumented in this encounter"
--- OUTSIDE RECORDS SUMMARY | ~2019-05-14 | XMS | Encounter Summary ---
Demographics + + + | Address | [address] | | | [place] [address] | + + + | Home Phone [...] | [facility] | + + + | Organization | [facility] | + + [...] Team Providers + +------+ + | Care Iron Caster Name | Role | Phone | + +------+ + | Ritesh England PA-C | PCP | | + +------+ + Encounter Details +--------+ + + + + | Date | Type | Department | Care Team | Description | +--------+ + + + + | 03/04/ | Pharmacy | Specialty Pharmacy | | | | 2018 | Visit | Services [address] | | | | [address] | | | | | | [place], [place] | | | | | | [address] | | | | | | [phone] | | | +--------+ + + + [...] | | | | | Angelica Ca[address] [place], | | | | | | [place] [address] | | | | | | [phone] | | | | | | | | +--------+---------+ + + + documented as of this encounter Visit Diagnoses Not on filedocumented in this encounter"
--- OUTSIDE RECORDS SUMMARY | ~2019-05-14 | XMS | Encounter Summary ---
Demographics + + + | Address | [address] | | | [place] [address] | + + + | Home Phone [...] + + | Author | [facility] | + + + | Organization | [facility] | + + [...] Providers + +------+ + | Care Car Packer Name | Role | Phone | + +------+ + | Ritesh England PA-C | PCP | | + +------+ + Encounter Details +--------+--------+ + + + | Date | Type | Department | Care Team | Description | +--------+--------+ + + + | 02/04/ | Refill | Transplant | Yvette Perkins RN | | | 2019 | | [address] | [address] | | | | | [address] | [address] [place], | | | | | [address] [place], [place] | [place] [address] | | | | | [address] | | | | | | [phone] | | | +--------+--------+ + + + [...] | | 2019 | Visit | | [address] | | | | | | [place], | | | | | | [place] [address] | | | | | | [phone] | | | | | | | | +--------+---------+ + + + documented as of this encounter Visit Diagnoses Not on filedocumented in this encounter"
--- OUTSIDE RECORDS SUMMARY | ~2019-05-14 | XMS | Encounter Summary ---
Demographics + + + | Address | [address] | | | [place] [address] | + + + | Home Phone [...] | Author | [facility] | + + + | Organization | [facility] | + + + [...] Team Providers + +------+ + | Care Bargeman Name | Role | Phone | + +------+ + | Ritesh England PA-C | PCP | | + +------+ + Reason for Visit + + + | Reason | Comments | + + + | Liver Transplant | labs | | Follow Up | | + + + Encounter Details +--------+ + + + + | Date | Type | Department | Care Team | Description | +--------+ + + + + | // | Telephone | Transplant | Yvette Perkins RN | Liver Transplant | | 2018 | | Coordinators [address] | [address] | Follow Up (labs) | | | | [address] [place] | [address] [place], | | | | | [address] [place], [place] | [place] [address] | | | | | [address] | | | | | | [phone] | | | +--------+ + + + [...] | | | | | Angelica Ca[address] [place], | | | | | | [place] [address] | | | | | | [phone] | | | | | | | | +--------+---------+ + + + documented as of this encounter Visit Diagnoses Not on filedocumented in this encounter"
--- OUTSIDE RECORDS SUMMARY | ~2019-05-14 | XMS | Encounter Summary ---
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 | Transplant | Dayron Donato MD | Liver replaced by | | 2017 | | [address] | [address] | transplant (HCC) | | | | [address] [place] | [address], | (Primary Dx) | | | | [address] [place], [place] | [place] [address] | | | | | [address] | [phone] | | | | | [phone] | | | +--------+ + + + [...] | | | | Angelica Ca[address] [place], | | | | | | [place] [address] | | | | | | [phone] | | | | | | | | +--------+---------+ + + + documented as of this encounter Results OUTSIDE CHEST - READ [...] Service Account, Radiant Res In Interface - 12/30/2017 2:58 PM [...] left | | interpolar renal cyst. LI-RADS [id number] NC: Not categorized due to image | [...]
--- OUTSIDE RECORDS SUMMARY | ~2019-05-14 | XMS | Clinical Summary ---
Demographics + + + | Address | [address] | | | [place] [address] | + + + | Home Phone | | + + + | Preferred Language | Unknown | + + + | Marital Status | Single | + + + | Restorationism Affiliation | BAP | + + + [...] Team Providers + +------+ + | Care Loading Checker Name | Role | Phone | + +------+ + | Ritesh England PA-C | PCP | | + +------+ + Source Comments SHILA is fully live on both EpicCare Ambulatory and EpicCare InPatient.[facility] Allergies + + + + + + | Active Allergy | Reactions | Severity | Noted | Comments | | | | | Date | | + + + + + + | Lisinopril | Angioedema | High | 05/08/20 | Had provoked | | | | | 19 | tongue edema after | | | | | | manipulation during | | | | | | an oral surgery. | | | | | | Required prolonged | | | | | | intubation to allow | | | | | | swelling to reduce. | | | | | | There is difference | | | | | | of opinion as to | | | | | | whether this was | | | | | | angioedema or post | | | | | | op tongue edema from | | | | | | prolonged traction. | | | | | | Regardless we will | | | | | | change to ARB for | | | | | | now | + + + + + + | Morphine | Nausea | Medium | 12/03/19 | | | | | [...] + +---------+------+------+-------+ | albuterol 90 | Inhale 1-2 puffs by | | 0 | | | Activ | | mcg/actuation | mouth every six | | | | | e | | inhalation HFA | hours as needed. | | | | | | | aerosol | Indications: | | | | | | | inhalerIndications: | Bronchospastic | | | | | | | bronchospastic | Pulmonary Disease | | | | | | | pulmonary disease | | | | | | | + + + +---------+------+------+-------+ | calcium-vitamin D | Take 1 tablet by | 60 | 0 | 06/ | | Activ | | 500 mg(1,250mg) -200 | mouth two times | tablet | | 20 | | e | | unit oral tablet | daily. | | | 18 | | | + + + +---------+------+------+-------+ | | Take 1 tablet by | 30 | 0 | 06/1 | | Activ | | multivitamin-mineral | mouth once daily. | tablet | | 04/22 | | e | | s oral tablet | | | | 18 | | | + + + +---------+------+------+-------+ | polyethylene | Mix 1 packet and | 60 | 0 | 06/1 | | Activ | | glycol 17 gram oral | take orally two | packet | | 03/22 | | e | | powder in packet | times daily. | | | 18 | | | + + + +---------+------+------+-------+ +---+ + | | Additional | | | informationPatient | | | taking differently: | | | 1 packet oral DAILY | | | NEEDED, Reason: | | | Provider | | | Instructions, | | | Reported on | | | 04/25/2019 4:56 PM | +---+ + + + + +---+------+------+-------+ | furosemide 20 mg | Take 10 mg by mouth | | 0 | | | Activ | | oral tablet | every Thursday, | | | | | e | | | Thursday and | | | | | | | | Thursday. | | | | | | + + + +---+------+------+-------+ | | Take 1 tablet by | 30 | 0 | 10/0 | / | Activ | | amoxicillin-clavulan | mouth three times | tablet | | 20 | 720 | e | | ate 500-125 mg oral | daily for 10 days. | | | 19 | 19 | | | tabletIndications: | Indications: | | | | | | | ENT infection, | bacterial infection, | | | | | | | parotitis | parotitis | | | | | | + + + +---+------+------+-------+ | amLODIPine 2.5 mg | Take 1 tablet by | 30 | 0 | 10/0 | | Activ | | oral | mouth once daily. | tablet | | 03/22 | | e | | tabletIndications: | Indications: high | | | 19 | | | | hypertension | blood pressure | | | | | | + + + +---+------+------+-------+ | metoprolol | Take 1 tablet by | 30 | 0 | 10/0 | | Activ | | succinate 100 mg | mouth once daily. | tablet | | /20 | | e | | oral tablet extended | | | | 19 | | | | release 24 hr | | | | | | | + + + +---+------+------+-------+ | mycophenolate 250 | Take 1 capsule by | 60 | 0 | 10/0 | | Activ | | mg oral capsule | mouth two times | capsule | | 720 | | e | | | daily. | | | 19 | | | + + + +---+------+------+-------+ | acetaminophen 325 | Take 2 tablets by | 60 | 0 | 10/0 | | Activ | | mg oral | mouth three times | tablet | | 7/20 | | e | | tabletIndications: | daily. | | | 19 | | | | Parotitis | | | | | | | + + + +---+------+------+-------+ | chlorhexidine 0.12 | Take 15 mL by mouth | 473 mL | 0 | 10/0 | | Activ | | % mucous membrane | four times daily as | | | 7/20 | | e | | mouthwash | needed (mouth | | | 19 | | | | | rinsing). Swish | | | | | | | | undiluted oral rinse | | | | | | | | around for 30 | | | | | | | | seconds, then spit. | | | | | | | | Do not swallow. | | | | | | + + + +---+------+------+-------+ | losartan 25 mg | Take 1 tablet by | 30 | 0 | 10/0 | | Activ | | oral tablet | mouth once daily at | tablet | | 7/20 | | e | | | bedtime. | | | 19 | | | + + + +---+------+------+-------+ | nicotine 14 mg/24 | Apply 1 patch to | 21 | 0 | 10/0 | | Activ | | hr transdermal patch | skin once daily. | patch | | 8/20 | | e | | 24 hourIndications: | | | | 19 | | | | Parotitis | | | | | | | + + + +---+------+------+-------+ | tacrolimus 0.5 mg | Take 1 capsule by | 5 | 0 | 10/0 | 10/1 | Activ | | oral capsule | mouth once daily for | capsule | | 7/20 | 2/20 | e | | | 5 days. | | | 19 | 19 | | + + + +---+------+------+-------+ | tacrolimus 1 mg | Take 1 capsule by | 4 | 0 | 10/0 | 10/1 | Activ | | oral capsule | mouth once daily for | capsule | | 8/20 | 2/20 | e | | | 4 days. | | | 19 | 19 | | + + + +---+------+------+-------+ | oxyCODONE | Take 1 tablet by | 30 | 0 | 10/0 | 10/1 | Activ | | (immediate release) | mouth every six | tablet | | 7/20 | 4/20 | e | | 5 mg oral | hours as needed for | | | 19 | 19 | | | tabletIndications: | severe pain for up | | | | | | | Malignant neoplasm | to 7 days. | | | | | | | of cheek (HCC) | | | | | | | + + + +---+------+------+-------+ Active Problems + + + | Problem | Noted Date | + + + | Tongue edema (Angioedema vs post op edema) | 05/08/2019 | + + + + + | Overview: Had provoked tongue edema after manipulation during | | an oral surgery. Required prolonged intubation to allow swelling | | to reduce. There is difference of opinion as to whether this | | was angioedema or post op tongue edema from prolonged traction. | | Regardless we will change to ARB for now | + + + + + | Immunosuppression (HCC) (mycophenylate & sirolimus) | 05/08/2019 | + + + | 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) | 05/08/2019 | + + + + + | Overview: [facility] | + + + + + | Acute post-operative pain | 05/05/2019 | + + + + + | Last Assessment & Plan: Oxy prn | | sched APAP | + + + + + | Acute LEFT Parotitis | 04/26/2019 | + + + | Parotid sialolithiasis | 04/25/2019 | + + + + + | Overview: Added automatically from request for surgery [id number] | | Last Assessment & Plan: S/P transfacial parotid stone | | removal- Continue Augmentin for a total of 14 Days (500mg TID)- | | Continue HOB >30 deg, aspiration precautions- pt has parotid | | stent in and per ENT team, should it come out, it does not need | | to be replaced | + + + + + | Acute renal injury superimposed on stage 4 chronic kidney disease | 04/18/2019 | + + + + + | Overview: ER report 04/02/2019-GFR 22 Last Assessment & | | Plan: Baseline Cr seems to be 1.3-1.5. Cr elevated to 2.5 | | yesterday, but down to 2.1 this AM. - d/c enzo f/shantanu tacro level | | and adjust tacro dose PRN - daily RFP - avoid nephrotoxins | |- daily RFP | |- avoid nephrotoxins | + + +-------+ + | A-fib | 09/18/2018 | +-------+ + + + | Overview: Overview: | Barrett [facility]A Gastroenterology note 09/07/2018: | + + + + + | Hypertension, unspecified type | 09/09/2018 | + + + | Squamous cell carcinoma of skin of ear, unspecified laterality | 09/09/2018 | + + + | Abdominal aortic aneurysm (AAA) without rupture | 01/14/2018 | + + + + + | Overview: 11/17/17 abdominal US noted "The abdominal aorta | | measures up to 34 x 30 mm with atherosclerotic plaque." Should | | have abdominal aorta ultrasound every 3 years while in the | | 3-3.9cm range, then more frequent. Overview: From discharge | | summary 01/18/2018 | + + + + + | Recovered, reduced EF Chronic systolic heart failure | 01/13/2018 | + + + + + | Overview: 08/2016 TTE Normal left ventricular size with | | moderate concentric left ventricularhypertrophy. There is a | | moderate global hypokinesis of the left ventricle.Overall, left | | ventricular significant is moderately decreased. LVEF is35-40%. | + + + + + | Methamphetamine use disorder, moderate (HCC) (per chart: will | 01/13/2018 | | review) | | + + + | Renal mass | 11/19/2017 | + + + + + | Overview: Overview: | | Referral to Urology placed 11/19/2017 | | [facility] | + + + + + | Liver transplant recipient | 06/26/2015 | + + + + + | Overview: Overview: Transplant done in [place] 2011, | | following up with [facility]. Patient reports to have plans to be | | treated for hepatitis-C through them.Overview: Transplant done in | | [place] 2011, following up with [facility]. Patient reports to have | | plans to be treated for hepatitis-C through them. Last | | Assessment & Plan: S/p OLTx. Stable graft function with low | | level aminotransferase elevated, thought potentially secondary to | | ongoing infection. On chronic immunosuppression. - Continue | | tacrolimus 1mg QAM (as per GI recs), 0.5mg QPM. F/up with | | hematology re: tacrolimus dosing in setting of increasing Cr- | | Continue mycophenolate 250mg BID (recently dosed down)- Daily CMP | + + + + + | Personal history of liver cancer | 06/26/2015 | + + + | Chronic pain | 09/12/2011 | + + + | Mechanical ectropion | 02/06/2006 | + + + | Malignant neoplasm of cheek | 09/17/2005 | + + + | Squamous cell carcinoma of skin of ear | 09/17/2005 | + + + + + | Overview: Overview: | | Patient has been followed by: | | | | Shlomo Roach MD | | otolaryngology Head and neck surgery services at [facility] | | [address] | | [place], [place] | + + + +---+ | Hypertension | | + +---+ + + | Last Assessment & Plan: Underlying essential HTN. Start on | | lisinopril during this hospitalization but unfortunately | | developed ATN, which is fortunately resolving . - transitioned | | metop tartrate to home metop succ 100mg BID- hold lisinopril | | while Cr elevated (will likely restart in coming week)- Starting | | amlodipine 2.5mg QD today | + + Resolved Problems + + + + | Problem | Noted | Resolved | | | Date | Date | + + + + | Severe tongue swelling | 05/05/20 | | | | 19 | 9 | + + + + + + | Last Assessment & Plan: Concern for airway compromise due to | | tongue swelling postop. No cuffleak noted intra op as well. | | Started on steroids postop and tongue swelling much improved POD1 | | and pt extubated without issue. - continue dexamethasone for 24 | | hours total- ok for regular diet | + + + + + + | On mechanically assisted ventilation | 05/04/20 | | | | 19 | 9 | + + + + + + | Last Assessment & Plan: S/P transfacial parotid stone removal | | complicated by significant tongue swelling, raising concern for | | safe extubation. - Continue ventilator support. PSV 5/5 => SBT | | overnight for planned extubation in AM.- Dexamethasone 8mg Q8H | | x24hrs for swelling- Sedation with primary fentanyl, wean | | propofol to off as tolerated | + + + + + + | Closed fracture of trochanter of right femur | 01/14/20 | | | | 18 | 9 | + + + + | Acute congestive heart failure | 08/23/19 | | | | 17 | 9 | + + + + + + | Overview: [...] pressure less than | | 130/804. Pericardial effusionOverview: 1. Congestive Heart | | Failure: A. Echocardiogram 08/23/16, shows normal left | | ventricular size with moderate concentric left ventricular [...] LVEF by gated | | SPECT is 35%.2. Cardiomyopathy3. Essential hypertension with goal | | blood pressure less than 130/804. Pericardial effusionProblem | | [employer] | + + + + + + | Bilateral pleural effusion | 08/23/19 | | | | 17 | 9 | + + + + | Hepatocellular carcinoma | 06/26/20 | | | | 15 | 6 | + + + + Encounters +--------+ + + + + | Date | Type | Specialty | Care Team | Description | +--------+ + + + + | 05/12/ | Telephone | Otolaryngology | Nikole Valdivia MD | | | 2018 | | | | | +--------+ + + + + | 05/10/ | Telephone | Liver Transplant | Yvette Perkins RN | Liver Transplant | | 2018 | | | | Follow Up | | | | | | (anti-rejection med | | | | | | plan) | +--------+ + + + + | 05/09/ | Telephone | Otolaryngology | Shlomo Roach MD | | | 2019 | | | | | +--------+ + + + + | 05/04/ | Anesthesia | Surgery | Sierra Alston MD | | | 2018 | Event | | Shamar Edwards, | | | | | | SENIOR ESCROW OFFICER | | +--------+ + + + + | 05/04/ | Surgery | Surgery | Shlomo Roach MD | LEFT PAROTIDECTOMY, | | 2018 | | | | LEFT SIDED | | | | | | SIALOENDOSCOPY, WIDE | | | | | | LOCAL EXCISION NECK | | | | | | LESION WITH LOCAL | | | | | | FLAP | +--------+ + + + + | 05/04/ | Procedure | Surgery | | | | 2018 | Pass | | | | +--------+ + + + + | 04/29/ | Telephone | Dermatology | Ministerio Narvaez, | | | 2019 | | | MD | | +--------+ + + + + | 04/27/ | [employer] | Otolaryngology | Bernard Sandhu | Parotitis (Primary | | 2018 | | | MD Omid | Dx) | +--------+ + + + + | 04/27/ | Procedure | Radiology | | | | 2019 | Pass | | | | +--------+ + + + + | 04/25/ | Hospital | Adult Acute Care | Shlomo Roach MD | | | 2018 - | Encounter | | Tawanna | | | | | | MD María | | | 05/09/ | | | Sharif Ceja MD | | | 2018 | | | Mart Hull MD | | +--------+ + + + + | 04/25/ | Office | Otolaryngology | Ministerio Goss | Smiley (Primary | | 2018 | Visit | | TINO Patel | Dx) | +--------+ + + + + | 04/25/ | Travel | | | | | 2018 | | | | | +--------+ + + + + | 04/20/ | Intake | | | N/A | | 2019 | | | | | +--------+ + + + + | 04/20/ | Telephone | Liver Transplant | Yvette Perkins RN | Liver Transplant | | 2018 | | | | Follow Up | | | | | | (hypertension | | | | | | issues) | +--------+ + + + + | 04/20/ | Telephone | Otolaryngology | Shlomo Roach MD | Question | | 2018 | | | | | +--------+ + + + + | 03/10/ | Telephone | Liver Transplant | Brittney Pratt | Lab Draw (Checking | | 2018 | | | MD Kiah | for results) | +--------+ + + + + from Last 3 Months Immunizations + + + + | Name | Administration Dates | Next Due | + + + + | Influenza, | 04/23/2017 | | | injectable, | | | | quadrivalent, | | | | preservative free | | | | (IIV4) | | | + + + + [...] | | + + + + + Plan of Treatment +--------+---------+ + + + | Date | Type | Specialty | Care Team | Description | +--------+---------+ + + + | 06/17/ | Office | Otolaryngology | Shlomo Roach MD | | | 2019 | Visit | | [address] | | | | | | [place], | | | | | | [place] [address] | | | | | | [phone] | | | | | | | | +--------+---------+ + + + + + + + + | Health Maintenance | Due Date | Last Done | Comments | + + + + + | Pneumococcal | | 08/23/2016, 03/27/2010 | | | vaccination (3 of 3 | 7 | | | | - PPSV23) | | | | + + + + + | Influenza (Flu) | | 04/23/2017, 08/23/2016, | | | vaccination (#1) | 9 | 06/20/2011, Additional history | | | | | exists | | + + + + + Implants + +------+--------+ +--------+--------+--------+ | Implanted | Type | Area | Manufacture | Device | Shelf | Model | | | | | r | | Expira | / | | | | | | Identi | tion | Serial | | | | | | fier | Date | / Lot | + +------+--------+ +--------+--------+--------+ | Plate 135d Standard Barrel | | Right: | [employer] | | | 281.10 | | [id number] Stainless Steel | | Hip | | | | 2 / / | | 4.5mm Cortical Screw 2 Hole | | | | | | | | Dhs/Dcs Bone 38mm - | | | | | | | | [id number]: Qty: 1 on | | | | | | | | 01/14/2018 by Bernard Lawrence | | | | | | | | MD Jorge at [facility] INPATIENT REV | | | | | | | | LOC | | | | | | | + +------+--------+ +--------+--------+--------+ | Screw Bone 12.7mm 8.2mm 2.7mm | | Right: | [employer] | | | 280.05 | | 105mm 22mm Dhs/Dcs Stainless | | Hip | | | | 0 / / | | Steel Hip Condyle Cannulated | | | | | | | | Lag - [id number]: | | | | | | | | Qty: 1 on 01/14/2018 by | | | | | | | | Bernard Lawrence MD at [facility] | | | | | | | | INPATIENT REV LOC | | | | | | | + +------+--------+ +--------+--------+--------+ | Screw Bone 12.7mm 36mm 22mm | | Right: | [employer] | | | 280.99 | | Dhs/Dcs Stainless Steel | | Hip | | | | 0 / / | | Condyle Hip Compression | | | | | | | | Nonsterile 1 Step System - | | | | | | | | [id number]: Qty: 1 on | | | | | | | | 01/14/2018 by Bernard Lawrence | | | | | | | | MD Jorge at [facility] INPATIENT REV | | | | | | | | LOC | | | | | | | + +------+--------+ +--------+--------+--------+ | Screw Bone 4.5mm 40mm Lcp | | Right: | [employer] | | | 214.84 | | Stainless Steel Standard | | Hip | | | | 0 / / | | Cortical Self Tapping Tip | | | | | | | | Nonsterile - | | | | | | | | [id number]: Qty: 1 on | | | | | | | | 01/14/2018 by Bernard Lawrence | | | | | | | | MD Jorge at [facility] INPATIENT REV | | | | | | | | LOC | | | | | | | + +------+--------+ +--------+--------+--------+ | Screw Bone 4.5mm 8mm 42mm Lcp | | Right: | [employer] | | | 214.84 | | Stainless Steel | | Hip | | | | 2 / / | | Periarticular Condyle | | | | | | | | Cortical Self Tapping Large - | | | | | | | | [id number]: Qty: 1 | | | | | | | | on 01/14/2018 by Howard, | | | | | | | | Bernard Patel MD at [facility] INPATIENT | | | | | | | | REV LOC | | | | | | | + +------+--------+ +--------+--------+--------+ | Weight Eyelid Thk1mm Gold | | Right: | [employer] | | 11/30/ | [id number] | | Contour 1.2gm Implant 3 | | Eye | | | 2020 | / | | Dimensional Tapered Lower | | | | | | [id number] | | Edge - [id number]: | | | | | | | | Qty: 1 on 03/04/2018 by Marley | | | | | | | | MD Shlomo at [facility] INPATIENT | | | | | | | | REV LOC | | | | | | | + +------+--------+ +--------+--------+--------+ Procedures + +--------+ + + + | [...] section. | + +--------+ + + + from Last 3 Months Results TACROLIMUS, WHOLE BLOOD (05/09/2019 6:51 AM PDT)Only the most recent of 5 results within t he time period is included. + + + + + + | [...] | Test performed by immunoassay using [employer] Silverer i2000. . | [facility] | | Samples [...] [facility] | [address] | [place] [address] | | | SERVICES, SPECIAL | [address] | | | | IMM + COAG | | | | + + + + + COMPLETE METABOLIC SET (NA,K,CL,CO2,BUN,CREAT,GLUC,CA,AST,ALT,BILI TOTAL,ALK PHOS,ALB,PROT TOTAL) (05/09/2019 12:38 AM PDT)Only the most recent of 13 results within the time period is included. + + + + + + | [...] | | | LABORATORY | | | [place] | | | SERVICES, | | | [...] + + + + + | [facility] | [address] | [place] [address] | | | SERVICES, CORE | [address] | | | + + + + + CAPILLARY BLOOD GLUCOSE (NO CHG), POC (05/08/2019 1:00 PM PDT)Only the most recent of 3 re sults within the time period is included. + +---------+ + + + | Component | Value | Ref Range | Performed | Pathologist | | | | | At | Signature | + +---------+ + + + | BLOOD | 109 (H) | 70 - 99 mg/dL | [facility] - | | | GLUCOSE, | | [...] [facility] | [address] | [place], [place] | | | [facility] | [address] | [address] | | | TESTS | | | | + + + + + CBC (HEMOGRAM) ONLY (05/07/2019 8:27 AM PDT)Only the most recent of 4 results within the period is included. + + + + + + | [...] | + + + + + | [facility] | [address] | [place] [address] | | | SERVICES, CORE | [address] | | | + + + + + RENAL FUNCTION SET (NA,K,CL,CO2,BUN,CREAT,GLUC,CA,PHOS,ALB ) (05/07/2019 8:27 AM PDT)Only the most recent of 2 results within the time period is included. + + + + + + | [...] | | | LABORATORY | | | [place] | | | SERVICES, | | | [...] MDRD equation recommended by the National | [facility] | | Kidney Disease Education Program. Estimated [...] [facility] | [address] | [place] [address] | | | SERVICES, CORE | [address] | | | + + + + + MAGNESIUM, PLASMA (05/07/2019 8:27 AM PDT)Only the most recent of 2 results within the is included. + +-------+ + + + | Component [...] | + + + + + | [facility] | [address] | [place] [address] | | | SERVICES, CORE | [address] | | | + + + + + BASIC METABOLIC SET (NA, K, CL, TCO2, BUN, CR, GLU, CA) (05/05/2019 4:11 PM PDT)Only the m ost recent of 3 results within the time period is included. + + + + + + | [...] | | | LABORATORY | | | [place] | | | SERVICES, | | | [...] MDRD equation recommended by the National | [facility] | | Kidney Disease Education Program. Estimated [...] | + + + + + | [facility] | [address] | [place] [address] | | | SERVICES, CORE | [address] | | | + + + + + X-RAY ABD LTD FEEDING TUBE EVAL PORTABLE (05/04/2019 8:16 PM PDT) + + | Specimen | + + | | + + + + + | Narrative | Performed At | + + + | EXAM: UT ABD LTD FEEDING TUBE EVAL INDICATION: DHT [...] Note | + + | Service Account, [employer] Res In Interface - 05/05/2019 10:18 AM PDT EXAM: UT ABD LTD | | FEEDING TUBE EVAL [...] At | + + + | EXAM: UT CHEST 1 VIEW HISTORY: ETT placement COMPARISON: [...] Preliminary: Kalyani Reilly MD Dictation initiated: Kalyani Hyde | | MD Melba 05/04/2019 7:39 PM | | + + + + + | Procedure Note | + + | Service Account, Radiant Res In Interface - 05/04/2019 7:41 PM PDT EXAM: UT CHEST 1 | | VIEW HISTORY: ETT [...] | | | + +---------+ + + SURGICAL PATHOLOGY (05/04/2019 2:26 PM [...] PathologistPathology, | | | | | | [facility] | | | | | | University [...] number | | | | | | [id number]. Neck, Left | | | | | [...] inked | | | | | | 12--6 o'clock blue, | | | | | [...] | | | | | determined by [facility] | | | | | | laboratories. [...] | + + + + + | [facility] | [address] | [place] [address] | | | PATHOLOGY | [address] | | | + + + + + ETT (05/04/2019 1:44 PM PDT) + + [...] Conor BERRY | | + + + SIROLIMUS QUANTITATION, WHOLE BLOOD (04/30/2019 7:01 AM PDT)Only the most recent of 4 resu lts within the time period is included. + +-------+ + + + | Component [...] | Test performed by immunoassay using [employer] Silverer i2000. Kidney | [facility] | | transplant [...] | + + + + + | [facility] | [address] | [place] [address] | | | SERVICES, SPECIAL | NAM [...] DOPPLER WITH COMPLETE ABDOMEN. HISTORY: Liver | [facility] | | transplant liver transplant in 2011. [...] | | | + +---------+ + + INR (04/28/2019 5:09 AM PDT) [...] | + + + + + | [facility] | [address] | [place] [address] | | | SERVICES, CORE | NAM [...] B: | | | | | | [email or web address] | | | | | | by [facility],[address] | | | | | [address],[place] | | | | | | [address] | | | | | | [phone]. | | | | | | Juvenal [...] [facility] | [address] | [place], [place] | | | [facility] | | [address] | | + + + + + [...] REG UNIV | | | (PETH) | 16:0/18:1.9-[id number]- | | PTH - INTFC | | | | [id number]-[id number]-phos | | | | | | phoethanol.Analysis [...] | | | | | d by [facility]. It has not | | | | | | been cleared or | | | | | | approvedby the Food and | | | | | | Drug | | | | | | Administration.Performed | | | | | | at: [facility] [address] | | | | | | [facility]. | | | | | | [place] [address] | | | | + + + + + + + + | Specimen | + + | Blood - Blood | | (substance) | + + + + + + + | Performing | Address | City/State/Zipcode | Phone Number | | Organization | | | | + + + + + | [facility] | [address] | [place], [place] | | | [facility] | | [id number] | | + + + + + [...] | + + + + + | [facility] | [address] | [place] [address] | | | SERVICES, CORE | NAM [...] [facility] | [address] | [place] [address] | | | SERVICES, CORE | [address] [...] + + + + + | [facility] | [address] | [place] [address] | | | SERVICES, CORE | NAM [...] | | | + +---------+ + + SODIUM TOTAL, URINE (04/26/2019 7:39 [...] [facility] | [address] | [place] [address] | | | SERVICES, CORE | [address] [...] + + + + + | [facility] | [address] | [place] [address] | | | SERVICES, CORE | NAM [...] [facility] | [address] | [place] [address] | | | SERVICES, CORE | PARK [...] | + + + + + | [facility] | [address] | [place] [address] | | | SERVICES, CORE | PARK [...] | + + + + + | [facility] | [address] | [place] [address] | | | SERVICES, CORE | [address] | | | + + + + + from Last 3 Months Insurance + +--------+ +--------+ + +--------+ | Payer | Benefi | Subscriber | Effect | Phone | Address | Type | | | t Plan | ID | velia | | | | | | / | | Dates | | | | | | Group | | | | | | + +--------+ +--------+ + +--------+ | WINE MANAGER MEDICAID | WINE MANAGER | xxxxxxxx | Effect | | | Medica | | | EASTER | | velia | | | id | | | [place] | | for | | | | | | | | all | | | | | | | | dates | | | | + +--------+ +--------+ + +--------+ | MEDICARE | MEDICA | xxxxxxxxxxx | 11/02/19 | [phone] | [address] | Medica | | | RE A & | | 07-Pre | 1 | [phone] | [address] | | | B | | sent | | [place] | | | | | | | | [phone] | | + +--------+ +--------+ + +--------+ | WINE MANAGER MEDICAID | WINE MANAGER | xxxxxxxx | | | | Medica | | | EASTER | | 019-Pr | | | id | | | [place] | | esent | | | | + +--------+ +--------+ + +--------+ + +--------+ +--------+ + + | Guarantor Name | Accoun | Relation to | Date | Phone | Billing Address | | | t Type | Patient | of | | | | | | | | | | + +--------+ +--------+ + + | Simeon Michaels | Person | Self | [birth year] | [address] | | Jr. | al/Fam | | 8 | [phone] | [place] | | | mariusz | | | 1 (Home) | [address] | + +--------+ +--------+ + + | Simeon Michaels | Person | Self | [birth year] | [address] | | Jr. | al/Fam | | 1959 | [phone] | [place] | | | mariusz | | | 1 (Home) | [address] | + +--------+ +--------+ + + Advance Directives + + + + + | Code Status | Date | Date | Comments | | | Activated | Inactivated | | + + + + + | Full Code | 04/25/2019 | 05/09/2019 | | | | 2:36 PM | 9:55 PM | | + + + + + + + + +---+ | | | | | + + + +---+ | Full Code | 09/09/2018 | 09/11/2018 | | | | 6:53 PM | 8:31 PM | | + + + +---+ + + + +---+ | | | | | + + + +---+ | Full Code | 09/07/2018 | 09/09/2018 | | | | 2:38 PM | 6:53 PM | | + + + +---+ + + + +---+ | | | | | + + + +---+ | Full Code | 03/03/2018 | 03/04/2018 | | | | 9:44 AM | 10:23 PM | | + + + +---+ + + + +---+ | | | | | + + + +---+ | Full Code | 01/13/2018 | 01/18/2018 | | | | 2:02 AM | 7:34 PM | | + + + +---+
--- OUTSIDE RECORDS SUMMARY | ~2019-05-14 | XMS | Encounter Summary ---
Demographics + + + | Address | [address] | | | [place] [address] | + + + | Home Phone | | + + + | Preferred Language | Unknown | + + + | Marital Status | Single | + + + | Hindu Affiliation | BAP | + + + | Race | White | + + + | Ethnic Group | Not or | + + + Author + + + | Author | [facility] [employer] [facility] | + + + | Organization | [facility] [employer] [facility] | + + + | [...] Providers + +------+ + | Care Manager Background Name | Role | Phone | + +------+ + | Ritesh England PA-C | PCP | | + +------+ + Encounter Details +--------+ + + + + | Date | Type | Department | Care Team | Description | +--------+ + + + + | 05/04/ | Procedure | 6A Intra Op [facility] | | | | 2019 | Pass | [facility] | | | | | | Admitting Desk | | | | | | Located on the 9th | | | | | | floor [address] [facility] | | | | | | [address] | | | | | | [place], [place] | | | | | | [address] | | | +--------+ + + + [...] | | 2019 | Visit | | [address] | | | | | | [place], | | | | | | [place] [address] | | | | | | [phone] | | | | | | | | +--------+---------+ + + + documented as of this encounter Visit Diagnoses Not on filedocumented in this encounter"
--- OUTSIDE RECORDS SUMMARY | ~2019-05-14 | XMS | Encounter Summary ---
Demographics + + + | Address | [address] | | | [place] [address] | + + + | Home Phone [...] + + | Author | [facility] [employer] [facility] | + + + | Organization | [facility] [facility] | [...] Team Providers + +------+ + | Care Willow Specialists Name | Role | Phone | + [...] + + | 08/21/ | Refill | Otolaryngology | Leon Hernandez, | Refill Request | | 2005 | | Head and Neck | MD [address] | | | | | Surgery Services at | [facility] [address] | | | | | PPV [address] | [place], [place] | | | | | [facility] [address] | [address] | | | | | Mailcode: PV01 | [phone] | | | | | [facility] | | | | | | [place], [place] | | | | | | [address] | | | | | | [phone] | | | +--------+--------+ + + + [...] | | | | | [address] [place], | | | | | | [place] [address] | | | | | | [phone] | | | | | | | | +--------+---------+ + + + documented as of this encounter Visit Diagnoses Not on filedocumented in this encounter"
--- OUTSIDE RECORDS SUMMARY | ~2019-05-14 | XMS | Encounter Summary ---
Demographics + + + | Address | [address] | | | [place] [address] | + + + | Home Phone [...] | Author | [facility] | + + + | Organization | [facility] [employer] [facility] | + + + | [...] Team Providers + +------+ + | Care Funeral Limousine Driver Name | Role | Phone | + +------+ + PCP | Unavailable | + +------+ + Reason for Visit + + + | Reason | Comments | + + + | Hearing loss | | + + + (Routine) +--------+--------+ + + + + | Status | Reason | Specialty | Diagnoses / | Referred By | Referred To | | | | | Procedures | Contact | Contact | +--------+--------+ + + + + | Closed | | | Diagnoses | David, | | | | | | Malignant | MD Leon | | | | | | neoplasm of | [address] | | | | | | shani ([facility]) | [address] | | | | | | Procedures | Rd | | | | | | CONSULT TO | [place], [place] | | | | | | PAT | [address] | | | | | | | Phone: | | | | | | | [phone] | | | | | | | Fax: | | | | | | | [phone] | | +--------+--------+ + + + + Encounter Details +--------+---------+ + + + | Date | Type | Department | Care Team | Description | +--------+---------+ + + + | 09/17/ | Office | Otolaryngology | Staff, Kameron Flex | UNSPECIFIED | | 2005 | Visit | Audiology Services | [address] | SENSORINEURAL | | | | at PPV [address] | [address] [place], | HEARING LOSS | | | | [address] | [place] [address] | (Primary Dx) | | | | Mailcode: PV01 | | | | | | Josefina Valdes | | | | | | [place], [place] | | | | | | [address] | | | | | | [phone] | | | +--------+---------+ + + + [...] documented as of this encounter Progress Notes Dina Miller, CCC-A - 09/17/2005 2:46 PM [facility]. Simeon Michaels was seen today for an a udiologic evaluation following referral from Dr. Leon Maurer. 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 At the time of th e evaluation he had an open lesion anterior to the opening of his right ear canal, which he reported to be sensitive and moderately painful. Pure tone testing revealed a bilateral mostly symmetrical sensorineural hearing loss with h earing thresholds at normal to mild levels from the 250Hz to 1000Hz frequency range, sloping to moderate and severe levels in the higher frequencies in the right ear and moderately sev ere levels in the higher frequencies in left ear. Speech metallographic technician thresholds were obtained at 30 dB HL and 40 dB HL in the left and right ea r respectively. When presented at an amplified level, word recognition scores for the left ear were excellent at 96%, and were significantly poorer in the right ear at 64%. These results were discussed with the patient and Mr. Michaels returned to see Dr. Erasto pittman completion of the evalaution.Electronically signed by BEAR Guthrie at 2:46 PM PSTdocumented in this encounter Plan of Treatment +--------+---------+ + + + | Date | Type | Specialty | Care Team | Description | +--------+---------+ + + + | 06/17/ | Office | Otolaryngology | Shlomo Roach MD | | | 2019 | Visit | | [address] | | | | | | [place], | | | | | | [place] [address] | | | | | | [phone] | | | | | | | | +--------+---------+ + + + + + +--------+ + + | Name | Type | Priori | Associated Diagnoses | Order Schedule | | | | ty | | | + + +--------+ + + | [facility] COMPRE[facility]ENSIVE | Procedures | Routin | | Ordered: 09/17/2005 | | HEARING TEST | | e | | | + + +--------+ + + | [facility] COMPRE[facility]ENS[facility] | Procedures | Routin | | Ordered: 09/17/2005 | | HEARING TEST | | e | | | + + +--------+ + + documented as of this encounter Visit Diagnoses + + | Diagnosis | + + | Sensorineural hearing loss, unspecified - Primary | + + documented in this encounter"
--- OUTSIDE RECORDS SUMMARY | ~2019-05-14 | XMS | Encounter Summary ---
Demographics + + + | Address | [address] | | | [place] [address] | + + + | Home Phone [...] + + | Author | [facility] | + + + | Organization | [facility] | + + + [...] Team Providers + +------+ + | Care Vegetable Harvest Machine Operator Name | Role | Phone [...] + + + + | 09/07/ | Telephone | [facility] | Justin Daniel | Medication Refill | | 2019 | | [address] | [address] | Request | | | | Place [facility] [address] | [facility], | | | | | [place] [address] | [place] [address] | | | | | [phone] | | | +--------+ + + + [...] | | | | | [place] [address] [place], | | | | | | [place] [address] | | | | | | [phone] | | | | | | | | +--------+---------+ + + + documented as of this encounter Visit Diagnoses Not on filedocumented in this encounter"
--- OUTSIDE RECORDS SUMMARY | ~2019-05-14 | XMS | Encounter Summary ---
Demographics + + + | Address | [address] | | | [place] [address] | + + + | Home Phone | | + + + | Preferred Language | Unknown | + + + | Marital Status | Single | + + + | Yazdanism Affiliation | BAP | + + + | Race | White | + + + | Ethnic Group | Not or | + + + Author + + + | Author | [facility] | + + + | Organization | [facility] | + + + [...] Team Providers + +------+ + | Care High Pressure Kettle Operator Name | Role | Phone | + +------+ + | No Pcp Per Patient | PCP | Unavailable | + +------+ + Reason for Visit + + + | Reason | Comments | + + + | Medication requested | Patient called pharmacy to refill vicodin, but was told he had to | | | call us to get refill requested (pharmacy in [place], per pt is | | | "backwards" and doesn't fax the refill request) [facility] | | | pharmacy, phone [phone]. Requesting same strength as listed | | | below - vicodin 5mg-500mg tab. | + + + Encounter Details +--------+ + + + + | Date | Type | Department | Care Team | Description | +--------+ + + + + | 05/12/ | Telephone | Otolaryngology | Leon Hernandez, | Medication requested | | 2005 | | Head and Neck | MD [address] | (Patient called | | | | Surgery Services at | [facility] | pharmacy to refill | | | | [address] | [place], [place] | vicodin, but was | | | | [facility] | [address] | told he had to call | | | | Mailcode: PV01 | [phone] | us to get refill | | | | [facility] | | requested (pharmacy | | | | [place], [place] | | in [place], per pt is | | | | [address] | | "backwards" and | | | | [phone] | | doesn't fax the | | | | | | refill request) | | | | | | [facility], | | | | | | phone [phone]. | | | | | | Requesting same | | | | | | strength as listed | | | | | | below - vicodin | | | | | | 5mg-500mg tab.) | +--------+ + + + + Social [...] | | | | | [place], | | | | | | [place] [address] | | | | | | [phone] | | | | | | | | +--------+---------+ + + + documented as of this encounter Visit Diagnoses Not on filedocumented in this encounter
--- OUTSIDE RECORDS SUMMARY | ~2019-05-14 | XMS | Encounter Summary ---
Demographics + + + | Address | [address] | | | [place] [address] | + + + | Home Phone [...] + + | Author | [facility] [employer] [facility] | + + + | Organization | [facility] | + + [...] Team Providers + +------+ + | Care Search Developer Name | Role | Phone | + +------+ + | Rtiesh England PA-C | PCP | | + +------+ + Encounter Details +--------+ + + + + | Date | Type | Department | Care Team | Description | +--------+ + + + + | 02/09/ | Telephone | [facility] | [place], | | | 2017 | | Pain Center at | MD Brenda [address] | | | | | [facility] | [address], | | | | | [address] | [place] [address] | | | | | Mailcode: [id number] | [phone] | | | | | [facility] | | | | | | and Healing, | | | | | | Building | | | | | | [place], [place] | | | | | | [address] | | | | | | [phone] | | | +--------+ + + + [...] 06/17/ | Office | Otolaryngology | Shlomo Rocah MD | | | 2019 | Visit | | [address] | | | | | | [place], | | | | | | [place] [address] | | | | | | [phone] | | | | | | | | +--------+---------+ + + + documented as of this encounter Visit Diagnoses Not on filedocumented in this encounter"
--- OUTSIDE RECORDS SUMMARY | ~2019-05-14 | XMS | Encounter Summary ---
Demographics + + + | Address | [address] | | | [place] [address] | + + + | Home Phone | | + + + | Preferred Language | Unknown | + + + | Marital Status | Single | + + + | Bahai Affiliation | BAP | + + + | Race | White | + + + | Ethnic Group | Not or | + + + Author + + + | Author | [facility] | + + + | Organization | [facility] [facility] | + + + | [...] Providers + +------+ + | Care Delivery Architect Name | Role | Phone | + +------+ + | Sylvester Scherer DO | PCP | | + +------+ + Reason for Visit + + + | Reason | Comments | + + + | Lab Draw | Adding preferred labs | + + + Encounter Details +--------+ + + + + | Date | Type | Department | Care Team | Description | +--------+ + + + + | 06/27/ | Telephone | Transplant | Valente Welch | Lab Draw (Adding | | 2014 | | Coordinators [address] | MD [address] | preferred labs) | | | | [address] [facility] | [address] | | | | | [address] [place], [place] | [place] [address] | | | | | [address] | [phone] | | | | | [phone] | | | +--------+ + + + [...] | | | | | [address], | | | | | | [place] [address] | | | | | | [phone] | | | | | | | | +--------+---------+ + + + documented as of this encounter Visit Diagnoses Not on filedocumented in this encounter"
--- OUTSIDE RECORDS SUMMARY | ~2019-05-14 | XMS | Encounter Summary ---
Demographics + + + | Address | [address] | | | [place] [address] | + + + | Home Phone [...] Author | [facility] | + + + | Organization | [facility] | + + [...] Team Providers + +------+ + | Care Marine Equipment Test Engineer Name | Role | Phone | + +------+ + | Ritesh England PA-C | PCP | | + +------+ + Reason for Visit + + + | Reason | Comments | + + + | Liver Transplant | sirolimus dose change | | Follow Up | | + + + Encounter Details +--------+ + + + + | Date | Type | Department | Care Team | Description | +--------+ + + + + | 12/31/ | Telephone | Transplant | Yvette Perkins RN | Liver Transplant | | 2017 | | [address]ators [address] | [address] | Follow Up (sirolimus | | | | [address] [place] | [address] [place], | dose change) | | | | [address] [place], [place] | [place] [address] | | | | | [address] | | | | | | [phone] | | | +--------+ + + + [...] | | | | | [place] [place], | | | | | | [place] [address] | | | | | | [phone] | | | | | | | | +--------+---------+ + + + documented as of this encounter Visit Diagnoses Not on filedocumented in this encounter"
--- OUTSIDE RECORDS SUMMARY | ~2019-05-14 | XMS | Encounter Summary ---
Demographics + + + | Address | [address] | | | [place] [address] | + + + | Home Phone [...] | [facility] [employer] [facility] | + + + | Organization | [facility] | + + [...] Team Providers + +------+ + | Care Application Helper Name | Role | Phone | + +------+ + | Ritesh England PA-C | PCP | | + +------+ + Encounter Details +--------+ + + + + | Date | Type | Department | Care Team | Description | +--------+ + + + + | 11/08/ | Documentati | Cardiology | Evan Womack, | | | 2019 | on | Arrhythmia at [facility] | MD [address] | | | | | [address] | [address] | | | | | Mailcode: CH7A | [place], [place] | | | | | [facility] | [address] | | | | | and [place], | [phone] | | | | | [facility] | | | | | | Floor [place], [place] | | | | | | [address] | | | | | | [phone] | | | +--------+ + + + [...] | | | | | [place], | | | | | | [place] [address] | | | | | | [phone] | | | | | | | | +--------+---------+ + + + documented as of this encounter Visit Diagnoses Not on filedocumented in this encounter"
--- OUTSIDE RECORDS SUMMARY | ~2019-05-14 | XMS | Encounter Summary ---
Demographics + + + | Address | [address] | | | [place] [address] | + + + | Home Phone [...] + | Author | [facility] | + + + | Organization | [facility] | + [...] Team Providers + +------+ + | Care Blasting Machine Operator Name | Role | Phone [...] + + | 09/21/ | Telephone | Transplant | Celsa Murdock, | Liver Transplant | | 2019 | | [address] | RN [address] | Follow Up (labs) | | | | [address] [place] | [facility] | | | | | Rd [place], [place] | [place], [place] | | | | | [address] | [address] | | | | | [phone] | | | +--------+ + + + [...] | | | | | [address], | | | | | | [place] [address] | | | | | | [phone] | | | | | | | | +--------+---------+ + + + documented as of this encounter Visit Diagnoses Not on filedocumented in this encounter"
--- OUTSIDE RECORDS SUMMARY | ~2019-05-14 | XMS | Encounter Summary ---
Demographics + + + | Address | [address] | | | [place] [address] | + + + | Home Phone [...] Author + + + | Author | [facility] | + + + | Organization | [facility] | + + + [...] Team Providers + +------+ + | Care Ocean Import Representative Name | Role | Phone | + +------+ + | Sylvester Scherer DO | PCP | | + +------+ + Encounter Details +--------+ + + + + | Date | Type | Department | Care Team | Description | +--------+ + + + + | 10/10/ | Abstract | Otolaryngology | Shlomo Roach MD | | | 2014 | | Head and Neck | [address] | | | | | Surgery Services at | [address] [place], | | | | | [address] [facility] | [place] [address] | | | | | [address] | [phone] | | | | | Mailcode: PV01 | | | | | | [facility] | | | | | | [place], [place] | | | | | | [address] | | | | | | [phone] | | | +--------+ + + + [...] | | | | | [address] [place], | | | | | | [place] [address] | | | | | | [phone] | | | | | | | | +--------+---------+ + + + documented as of this encounter Visit Diagnoses Not on filedocumented in this encounter"
--- OUTSIDE RECORDS SUMMARY | ~2019-05-14 | XMS | Encounter Summary ---
Demographics + + + | Address | [address] | | | [place] [address] | + + + | Home Phone [...] [facility] [facility] | + + + | Organization | [facility] [facility] | + + [...] Team Providers + +------+ + | Care Photographers' Model Name | Role | Phone | + +------+ + | Ritesh England PA-C | PCP | | + +------+ + Encounter Details +--------+--------+ + + + | Date | Type | Department | Care Team | Description | +--------+--------+ + + + | 04/20/ | Intake | Transfer Center | | N/A | | 2019 | | [address] | | | | | | [place], | | | | | | [place] [address] | | | +--------+--------+ + + + [...] | | | | | [address] [place], | | | | | | [place] [address] | | | | | | [phone] | | | | | | | | +--------+---------+ + + + documented as of this encounter Visit Diagnoses Not on filedocumented in this encounter"
--- OUTSIDE RECORDS SUMMARY | ~2019-05-14 | XMS | Encounter Summary ---
Demographics + + + | Address | [address] | | | [place] [address] | + + + | Home Phone [...] Author + + + | Author | [facility] [employer] [facility] | + + + | Organization | [facility] [employer] [facility] | + + + [...] Team Providers + +------+ + | Care Range Aid Name | Role | Phone | + +------+ + | Ritesh England PA-C | PCP | | + +------+ + Encounter Details +--------+--------+ + + + | Date | Type | Department | Care Team | Description | +--------+--------+ + + + | 01/26/ | Refill | Transplant | Yvette Perkins RN | | | 2019 | | [address] | [address] | | | | | [address] | [address] [place], | | | | | Rd [place], [place] | [place] [address] | | | | | [address] | | | | | | [phone] | | | +--------+--------+ + + + [...] | | 2019 | Visit | | [address] | | | | | | [place], | | | | | | [place] [address] | | | | | | [phone] | | | | | | | | +--------+---------+ + + + documented as of this encounter Visit Diagnoses Not on filedocumented in this encounter"
--- OUTSIDE RECORDS SUMMARY | ~2019-05-14 | XMS | Encounter Summary ---
Demographics + + + | Address | [address] | | | [place] [address] | + + + | Home Phone [...] + + | Author | [facility] [employer] [facility] | + + + | Organization | [facility] [employer] [facility] | + + + [...] Team Providers + +------+ + | Care Metal Fabricating Supervisor Name | Role | Phone | + +------+ + | Ritesh England PA-C | PCP | | + +------+ + Encounter Details +--------+ + + + + | Date | Type | Department | Care Team | Description | +--------+ + + + + | 09/21/ | Document-Tr | Otolaryngology | Shlomo Roach MD | | | 2019 | anscribed | Head and Neck | [address] | | | | | Surgery Services at | [address] [place], | | | | | PPV [address] | [place] [address] | | | | | [address] | [phone] | | | | | Mailcode: PV01 | | | | | | [facility] | | | | | | [place], [place] | | | | | | [address] | | | | | | [phone] | | | +--------+ + + + [...] encounter Progress Notes Shlomo Roach MD - 09/21/2018 12:53 PM PSTClinic Date:09/21/2018 I spoke with this gentleman today. He called as he is having some discharge from his chest and face wounds. It seems to be red, inflamed, quite sore. I put him on Augmentin. He is immunosuppressed, having had a liver transplant and been ill from that. I arranged to see him again if he thinks it is not improving. I gave him some Augmentin. I discussed his pat hology. 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 We will continue to follow him. MD TELLY Delgadillo/SABRA /[id number] signed by Shlomo Roach MD at 09/22/2018 10:08 AM [facility] this encounter Plan of Treatment +--------+---------+ + + + | Date | Type | Specialty | Care Team | Description | +--------+---------+ + + + | 06/17/ | Office | Otolaryngology | Shlomo Roach MD | | | 2019 | Visit | | [address] | | | | | | [address] [place], | | | | | | [place] [address] | | | | | | [phone] | | | | | | | | +--------+---------+ + + + documented as of this encounter Visit Diagnoses Not on filedocumented in this encounter"
--- OUTSIDE RECORDS SUMMARY | ~2019-05-14 | XMS | Encounter Summary ---
Demographics + + + | Address | [address] | | | [place] [address] | + + + | Home Phone | | + + + | Preferred Language | Unknown | + + + | Marital Status | Single | + + + | Mormon Affiliation | BAP | + + + | Race | White | + + + | Ethnic Group | Not or | + + + Author + + + | Author | [facility] [employer] [facility] | + + + | Organization | [facility] [employer] [facility] | + [...] Team Providers + +------+ + | Care Clinic Receptionist Name | Role | Phone | + +------+ + | Ritesh England PA-C | PCP | | + +------+ + Reason for Visit +--------+ + | Reason | Comments | +--------+ + | Other | Labs needed | +--------+ + Encounter Details +--------+ + + + + | Date | Type | Department | Care Team | Description | +--------+ + + + + | 11/25/ | Telephone | Transplant | Valente Welch | Other (Labs needed) | | 2016 | | Coordinators [address] | [address] [address] | | | [address] | [address] | | | | | [address] [place], [place] | [place] [address] | | | | | [address] | [phone] | | | | | [phone] | | | +--------+ + + + [...] | | | | | [address] [place], | | | | | | [place] [address] | | | | | | [phone] | | | | | | | | +--------+---------+ + + + documented as of this encounter Visit Diagnoses Not on filedocumented in this encounter"
--- OUTSIDE RECORDS SUMMARY | ~2019-05-14 | XMS | Encounter Summary ---
Demographics + + + | Address | [address] | | | [place] [address] | + + + | Home Phone [...] Author + + + | Author | [facility] [employer] [facility] | + + + | Organization | [facility] [employer] [facility] | + + + [...] Team Providers + +------+ + | Care Method Consultant Name | Role | Phone | + +------+ + | Ritesh England PA-C | PCP | | + +------+ + Reason for Visit + + + | Reason | Comments | + + + | Liver Transplant | low potassium 12/24/17 | | Follow Up | | + + + Encounter Details +--------+ + + + + | Date | Type | Department | Care Team | Description | +--------+ + + + + | 12/25/ | Telephone | Transplant | Yvette Perkins RN | Liver Transplant | | 2018 | | Coordinators [address] | [address] | Follow Up (low | | | | [address] | [address] [employer], | potassium 12/24/17) | | | | [address] [place], [place] | [place] [address] | | | | | [address] | | | | | | [phone] | | | +--------+ + + + [...] 06/17/ | Office | Otolaryngology | Shlomo Raoch MD | | | 2019 | Visit | | [address] | | | | | | [address] [place], | | | | | | [place] [address] | | | | | | [phone] | | | | | | | | +--------+---------+ + + + documented as of this encounter Visit Diagnoses Not on filedocumented in this encounter"
--- OUTSIDE RECORDS SUMMARY | ~2019-05-14 | XMS | Encounter Summary ---
Demographics + + + | Address | [address] | | | [place] [address] | + + + | Home Phone | | + + + | Preferred Language | Unknown | + + + | Marital Status | Single | + + + | Latter Day Affiliation | BAP | + + + | Race | White | + + + | Ethnic Group | Not or | + + + Author + + + | Author | [facility] | + + + | Organization | 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 Operator Name | Role | Phone | + +------+ + | Ritesh England PA-C | PCP | | + +------+ + Encounter Details +--------+ + + + + | Date | Type | Department | Care Team | Description | +--------+ + + + + | 09/18/ | Hospital | Registration [address] | Leon Hernandez, | | | 2005 | Activity | [address] | [address] | | | | | [address] Mailcode: [id number] | [place] | | | | | [place], [place] | [place], [place] | | | | | [address] | [address] | | | | | [phone] | [phone] | | | | | | | [...] | | | | | [place], | | | | | | [place] [address] | | | | | | [phone] | | | | | | | | +--------+---------+ + + + documented as of this encounter Procedures + +--------+ + + + | Procedure Name | Priori | Date/Time | Associated Diagnosis | Comments | | | ty | | | | + +--------+ + + + | BASIC METABOLIC SET | Routin | 09/24/2005 | | Results for this | | (NA, K, CL, TCO2, | e | 8:21 AM | | procedure are in the | | BUN, CR, GLU, CA) | | PST | | results section. | + +--------+ + + + | CBC ONLY | Routin | 09/24/2005 | | Results for this | | | e | 8:21 AM | | procedure are in the | | | | PST | | results section. | + +--------+ + + + | PHOSPHORUS, PLASMA | Routin | 09/24/2005 | | Results for this | | | e | 8:21 AM | | procedure are in the | | | | PST | | results section. | + +--------+ + + + | MAGNESIUM, PLASMA | Routin | 09/24/2005 | | Results for this | | | e | 8:21 AM | | procedure are in the | | | | PST | | results section. | + +--------+ + + + | BASIC METABOLIC SET | Routin | 09/23/2005 | | Results for this | | (NA, K, CL, TCO2, | e | 6:12 AM | | procedure are in the | | BUN, CR, GLU, CA) | | PST | | results section. | + +--------+ + + + | CBC ONLY | Routin | 09/23/2005 | | Results for this | | | e | 6:12 AM | | procedure are in the | | | | PST | | results section. | + +--------+ + + + | PHOSPHORUS, PLASMA | Routin | 09/23/2005 | | Results for this | | | e | 6:12 AM | | procedure are in the | | | | PST | | results section. | + +--------+ + + + | MAGNESIUM, PLASMA | Routin | 09/23/2005 | | Results for this | | | e | 6:12 AM | | procedure are in the | | | | PST | | results section. | + +--------+ + + + | BASIC METABOLIC SET | Routin | 09/22/2005 | | Results for this | | (NA, K, CL, TCO2, | e | 5:55 AM | | procedure are in the | | BUN, CR, GLU, CA) | | PST | | results section. | + +--------+ + + + | CBC ONLY | Routin | 09/22/2005 | | Results for this | | | e | 5:55 AM | | procedure are in the | | | | PST | | results section. | + +--------+ + + + | PHOSPHORUS, PLASMA | Routin | 09/22/2005 | | Results for this | | | e | 5:55 AM | | procedure are in the | | | | PST | | results section. | + +--------+ + + + | MAGNESIUM, PLASMA | Routin | 09/22/2005 | | Results for this | | | e | 5:55 AM | | procedure are in the | | | | PST | | results section. | + +--------+ + + + | BASIC METABOLIC SET | Routin | 09/21/2005 | | Results for this | | (NA, K, CL, TCO2, | e | 9:15 AM | | procedure are in the | | BUN, CR, GLU, CA) | | PST | | results section. | + +--------+ + + + | CBC ONLY | Routin | 09/21/2005 | | Results for this | | | e | 9:15 AM | | procedure are in the | | | | PST | | results section. | + +--------+ + + + | PHOSPHORUS, PLASMA | Routin | 09/21/2005 | | Results for this | | | e | 9:15 AM | | procedure are in the | | | | PST | | results section. | + +--------+ + + + | MAGNESIUM, PLASMA | Routin | 09/21/2005 | | Results for this | | | e | 9:15 AM | | procedure are in the | | | | PST | | results section. | + +--------+ + + + | BASIC METABOLIC SET | Routin | 09/20/2005 | | Results for this | | (NA, K, CL, TCO2, | e | 8:27 AM | | procedure are in the | | BUN, CR, GLU, CA) | | PST | | results section. | + +--------+ + + + | CBC ONLY | Routin | 09/20/2005 | | Results for this | | | e | 8:27 AM | | procedure are in the | | | | PST | | results section. | + +--------+ + + + | PHOSPHORUS, PLASMA | Routin | 09/20/2005 | | Results for this | | | e | 8:27 AM | | procedure are in the | | | | PST | | results section. | + +--------+ + + + | MAGNESIUM, PLASMA | Routin | 09/20/2005 | | Results for this | | | e | 8:27 AM | | procedure are in the | | | | PST | | results section. | + +--------+ + + + | BASIC METABOLIC SET | Routin | 09/19/2005 | | Results for this | | (NA, K, CL, TCO2, | e | 11:26 AM | | procedure are in the | | BUN, CR, GLU, CA) | | PST | | results section. | + +--------+ + + + | CBC ONLY | Routin | 09/19/2005 | | Results for this | | | e | 11:26 AM | | procedure are in the | | | | PST | | results section. | + +--------+ + + + | PHOSPHORUS, PLASMA | Routin | 09/19/2005 | | Results for this | | | e | 11:26 AM | | procedure are in the | | | | PST | | results section. | + +--------+ + + + | MAGNESIUM, PLASMA | Routin | 09/19/2005 | | Results for this | | | e | 11:26 AM | | procedure are in the | | | | PST | | results section. | + +--------+ + + + | BASIC METABOLIC SET | Routin | 09/19/2005 | | Results for this | | (NA, K, CL, TCO2, | e | 6:01 AM | | procedure are in the | | BUN, CR, GLU, CA) | | PST | | results section. | + +--------+ + + + | CBC ONLY | Routin | 09/19/2005 | | Results for this | | | e | 6:01 AM | | procedure are in the | | | | PST | | results section. | + +--------+ + + + | PHOSPHORUS, PLASMA | Routin | 09/19/2005 | | Results for this | | | e | 6:01 AM | | procedure are in the | | | | PST | | results section. | + +--------+ + + + | MAGNESIUM, PLASMA | Routin | 09/19/2005 | | Results for this | | | e | 6:01 AM | | procedure are in the | | | | PST | | results section. | + +--------+ + + + | CALCIUM, IONIZED, | Routin | 09/19/2005 | | Results for this | | WHOLE BLOOD | e | 12:50 AM | | procedure are in the | | | | PST | | results section. | + +--------+ + + + | BASIC METABOLIC SET | Urgent | 09/18/2005 | | Results for this | | (NA, K, CL, TCO2, | | 9:45 PM | | procedure are in the | | BUN, CR, GLU, CA) | | PST | | results section. | + +--------+ + + + | CBC ONLY | Urgent | 09/18/2005 | | Results for this | | | | 9:45 PM | | procedure are in the | | | | PST | | results section. | + +--------+ + + + | PHOSPHORUS, PLASMA | Urgent | 09/18/2005 | | Results for this | | | | 9:45 PM | | procedure are in the | | | | PST | | results section. | + +--------+ + + + | MAGNESIUM, PLASMA | Urgent | 09/18/2005 | | Results for this | | | | 9:45 PM | | procedure are in the | | | | PST | | results section. | + +--------+ + + + | SURGICAL PATHOLOGY | Routin | 09/18/2005 | | Results for this | | | e | | | procedure are in the | | | | | | results section. | + +--------+ + + + documented in this encounter Results MAGNESIUM, PLASMA (09/24/2005 8:21 AM PST) + +-------+ + + + | Component | Value | Ref Range | Performed | Pathologist | | | | | At | Signature | + +-------+ + + + | MAGNESIUM,P | 2.0 | 1.8 - 2.5 mg/dL | [facility] | | | LASMA | | | DEPARTMENT | | | [...] + + + | [facility] DEPARTMENT OF | [facility] | [place] [address] | | | PATHOLOGY | [address] | | | + + + + + | [facility] OF | [facility] | [place] [address] | | | PATHOLOGY | [address] | | | + + + + + PHOSPHORUS, PLASMA (09/24/2005 8:21 AM PST) + +-------+ + + + | Component | Value | Ref Range | Performed | Pathologist | | | | | At | Signature | + +-------+ + + + | PHOSPHORUS, | 4.1 | 2.4 - 4.7 mg/dL | [facility] [...] | + + + + + | [facility] DEPARTMENT OF | [address] | [place] [address] | | | PATHOLOGY | [address] | | | + + + + + | [facility] DEPARTMENT OF | [address] | [place] [address] | | | PATHOLOGY | [address] | | | + + + + + CBC ONLY WITH PLATELET (09/24/2005 8:21 AM PST) + + + + + + | Component | Value | Ref Range | Performed | Pathologist | | | | | At | Signature | + + + + + + | WHITE CELL | 6.8 | 4.4 - 11.0 K/cu | [facility] | | | COUNT | | mm | DEPARTMENT | | | | | | OF | | | | | | PATHOLOGY | | + + + + + + | RED CELL | 3.30 (L) | 4.50 - 5.90 | [facility] | | | COUNT | | M/cu mm | DEPARTMENT | | | | | | OF | | | | | | PATHOLOGY | | + + + + + + | HEMOGLOBIN | 11.1 (L) | 13.5 - 17.5 | [facility] | | | | | g/dL | DEPARTMENT | | | | | | OF | | | | | | PATHOLOGY | | + + + + + + | HEMATOCRIT | 31.2 (L) | 41.0 - 53.0 % | [facility] | | | | | | DEPARTMENT | | | | | | OF | | | | | | PATHOLOGY | | + + + + + + | MCV | 94.5 | 80.0 - 96.0 fL | [facility] | | | | | | DEPARTMENT | | | | | | OF | | | | | | PATHOLOGY | | + + + + + + | MCHC | 35.5 | 33.4 - 35.5 | [facility] | [...] + + + + | PLATELET | 161 | 150 - 400 K/cu | [facility] [...] DEPARTMENT OF | [address] | [place] [address] | | | PATHOLOGY | [address] | | | + + + + + | [facility] DEPARTMENT OF | [address] | [place] [address] | | | PATHOLOGY | [address] | | | + + + + + BASIC METABOLIC SET (09/24/2005 8:21 AM PST) + +--------+ + + + | Component | Value | Ref Range | Performed | Pathologist | | | | | At | Signature | + +--------+ + + + | GLUCOSE, | 104 | 65 - 110 mg/dL | [facility] | | | PLASMA | | | DEPARTMENT | | | (LAB) | | | OF | | | | | | PATHOLOGY | | + +--------+ + + + | BUN, PLASMA | 6 | 6 - 20 mg/dL | [facility] | | | (LAB) | | | DEPARTMENT | | | | | | OF | | | | | | PATHOLOGY | | + +--------+ + + + | CREATININE | 0.7 | 0.7 - 1.3 mg/dL | [facility] | | | PLASMA | | | DEPARTMENT | | | (LAB) | | | OF | | | | | | PATHOLOGY | | + +--------+ + + + | SODIUM, | 137 | 136 - 145 | [facility] | | | PLASMA | | mmol/L | DEPARTMENT | | | (LAB) | | | OF | | | | | | PATHOLOGY | | + +--------+ + + + | POTASSIUM, | 4.0 | 3.5 - 5.1 | [facility] | | | PLASMA | | mmol/L | DEPARTMENT | | | (LAB) | | | OF | | | | | | PATHOLOGY | | + +--------+ + + + | CHLORIDE, | 103 | 98 - 107 mmol/L | [facility] | | | PLASMA | | | DEPARTMENT | | | (LAB) | | | OF | | | | | | PATHOLOGY | | + +--------+ + + + | TOTAL CO2, | 30 (H) | 23 - 29 mmol/L | [facility] | | | PLASMA | | | DEPARTMENT | | | (LAB) | | | OF | | | | | | PATHOLOGY | | + +--------+ + + + | CALCIUM, | 8.7 | 8.5 - 10.5 | [facility] | | | PLASMA | | mg/dL | DEPARTMENT | | | (LAB) | | | OF | | | | | | PATHOLOGY | | + +--------+ + + + + + | Specimen | + + | | + + + + + + + | Performing | Address | City/State/Zipcode | Phone Number | | Organization | | | | + + + + + | [facility] DEPARTMENT OF | [address] | [place] [address] | | | PATHOLOGY | [address] | | | + + + + + | [facility] DEPARTMENT OF | [address] | [place] [address] | | | PATHOLOGY | [address] | | | + + + + + PHOSPHORUS, PLASMA (09/23/2005 6:12 AM PST) + +-------+ + + + | Component | Value | Ref Range | Performed | Pathologist | | | | | At | Signature | + +-------+ + + + | PHOSPHORUS, | 4.6 | 2.4 - 4.7 mg/dL | [facility] [...] | + + + + + | [facility] | [address] [place] [address] | [place] [address] | | | PATHOLOGY | [address] | | | + + + + + | [facility] DEPARTMENT | [address] [place] [address] | [place] [address] | | | PATHOLOGY | [address] | | | + + + + + MAGNESIUM, PLASMA (09/23/2005 6:12 AM PST) + +-------+ + + + | Component | Value | Ref Range | Performed | Pathologist | | | | | At | Signature | + +-------+ + + + | MAGNESIUM,P | 1.9 | 1.8 - 2.5 mg/dL | [facility] | | | LASMA | | | DEPARTMENT | | | [...] + | [facility] DE[facility]MENT OF | [address] | [place] [address] | | | PATHOLOGY | [address] | | | + + + + + | [facility] DE[facility]MENT OF | [address] | [place] [address] | | | PATHOLOGY | [address] | | | + + + + + BASIC METABOLIC SET (09/23/2005 6:12 AM PST) + +---------+ + + + | Component | Value | Ref Range | Performed | Pathologist | | | | | At | Signature | + +---------+ + + + | GLUCOSE, | 92 | 65 - 110 mg/dL | [facility] | | | PLASMA | | | DEPARTMENT | | | (LAB) | | | OF | | | | | | PATHOLOGY | | + +---------+ + + + | BUN, PLASMA | 4 (L) | 6 - 20 mg/dL | [facility] | | | (LAB) | | | DEPARTMENT | | | | | | OF | | | | | | PATHOLOGY | | + +---------+ + + + | CREATININE | 0.7 | 0.7 - 1.3 mg/dL | [facility] [...] + + | POTASSIUM, | 3.9 | 3.5 - 5.1 | [facility] | | | PLASMA | | mmol/L | DEPARTMENT | | | (LAB) | | | OF | | | | | | PATHOLOGY | | + +---------+ + + + | CHLORIDE, | 98 | 98 - 107 mmol/L | [facility] | | | PLASMA | | | DEPARTMENT | | | (LAB) | | | OF | | | | | | PATHOLOGY | | + +---------+ + + + | TOTAL CO2, | 31 (H) | 23 - 29 mmol/L | [facility] | | | PLASMA | | | DEPARTMENT | | | (LAB) | | | OF | | | | | | PATHOLOGY | | + +---------+ + + + | CALCIUM, | 8.3 (L) | 8.5 - 10.5 | [facility] | [...] | + + + + + | [facility] | [address] | [place] [address] | | | PATHOLOGY | [address] | | | + + + + + | [facility] | [address] | [place] [address] | | | PATHOLOGY | [address] | | | + + + + + CBC ONLY WITH PLATELET (09/23/2005 6:12 AM PST) + + + + + + | Component | Value | Ref Range | Performed | Pathologist | | | | | At | Signature | + + + + + + | WHITE CELL | 5.1 | 4.4 - 11.0 K/cu | [facility] | | | COUNT | | mm | DEPARTMENT | | | | | | OF | | | | | | PATHOLOGY | | + + + + + + | RED CELL | 3.32 (L) | 4.50 - 5.90 | [facility] | | | COUNT | | M/cu mm | DEPARTMENT | | | | | | OF | | | | | | PATHOLOGY | | + + + + + + | HEMOGLOBIN | 11.2 (L) | 13.5 - 17.5 | [facility] | | | | | g/dL | DEPARTMENT | | | | | | OF | | | | | | PATHOLOGY | | + + + + + + | HEMATOCRIT | 31.6 (L) | 41.0 - 53.0 % | [facility] | | | | | | DEPARTMENT | | | | | | OF | | | | | | PATHOLOGY | | + + + + + + | MCV | 95.1 | 80.0 - 96.0 fL | [facility] [...] + + + + | RDW | 12.4 | 11.5 - 15.0 % | [facility] | | | | | | DEPARTMENT | | | | | | OF | | | | | | PATHOLOGY | | + + + + + + | PLATELET | 147 (L) | 150 - 400 K/cu | [...] + + + | [facility] DEPARTMENT OF | [address] | [place] [address] | | | PATHOLOGY | [address] | | | + + + + + | [facility] OF | [facility] | [place] [address] | | | PATHOLOGY | [address] | | | + + + + + PHOSPHORUS, PLASMA (09/22/2005 5:55 AM PST) + +-------+ + + + | Component | Value | Ref Range | Performed | Pathologist | | | | | At | Signature | + +-------+ + + + | PHOSPHORUS, | 4.4 | 2.4 - 4.7 mg/dL | [facility] [...] DEPARTMENT OF | [address] | [place] [address] | | | PATHOLOGY | [address] | | | + + + + + | [facility] DEPARTMENT | [address] | [place] [address] | | | PATHOLOGY | [address] | | | + + + + + BASIC METABOLIC SET (09/22/2005 5:55 AM PST) + +---------+ + + + | Component | Value | Ref Range | Performed | Pathologist | | | | | At | Signature | + +---------+ + + + | GLUCOSE, | 96 | 65 - 110 mg/dL | [facility] | | | PLASMA | | | DEPARTMENT | | | (LAB) | | | OF | | | | | | PATHOLOGY | | + +---------+ + + + | BUN, PLASMA | 4 (L) | 6 - 20 mg/dL | [facility] [...] + + | POTASSIUM, | 3.9 | 3.5 - 5.1 | [facility] | | | PLASMA | | mmol/L | DEPARTMENT | | | (LAB) | | | OF | | | | | | PATHOLOGY | | + +---------+ + + + | CHLORIDE, | 104 | 98 - 107 mmol/L | [facility] | | | PLASMA | | | DEPARTMENT | | | (LAB) | | | OF | | | | | | PATHOLOGY | | + +---------+ + + + | TOTAL CO2, | 31 (H) | 23 - 29 mmol/L | [facility] | | | PLASMA | | | DEPARTMENT | | | (LAB) | | | OF | | | | | | PATHOLOGY | | + +---------+ + + + | CALCIUM, | 8.2 (L) | 8.5 - 10.5 | [facility] | [...] + + + | [facility] DEPARTMENT OF | [address] | [place] [address] | | | PATHOLOGY | [address] | | | + + + + + | [facility] DEPARTMENT OF | [address] | [place] [address] | | | PATHOLOGY | [address] | | | + + + + + MAGNESIUM, PLASMA (09/22/2005 5:55 AM PST) + +-------+ + + + | Component | Value | Ref Range | Performed | Pathologist | | | | | At | Signature | + +-------+ + + + | MAGNESIUM,P | 2.0 | 1.8 - 2.5 mg/dL | [facility] | | | LASMA | | | DEPARTMENT | | | | | | OF | | | | | | PATHOLOGY | | + +-------+ + + + + + | Specimen | + + | | + + + + + + + | Performing | Address | City/State/Zipcode | Phone Number | | Organization | | | | + + + + + | [facility] | [facility] [address] | [place] [address] | | | PATHOLOGY | [address] | | | + + + + + | [facility] DEPARTMENT OF | [facility] [address] | [place] [address] | | | PATHOLOGY | [address] | | | + + + + + CBC ONLY WITH PLATELET (09/22/2005 5:55 AM PST) + + + + + + | Component | Value | Ref Range | Performed | Pathologist | | | | | At | Signature | + + + + + + | WHITE CELL | 5.5 | 4.4 - 11.0 K/cu | [facility] | | | COUNT | | mm | DEPARTMENT | | | | | | OF | | | | | | PATHOLOGY | | + + + + + + | RED CELL | 3.42 (L) | 4.50 - 5.90 | [facility] | | | COUNT | | M/cu mm | DEPARTMENT | | | | | | OF | | | | | | PATHOLOGY | | + + + + + + | HEMOGLOBIN | 11.6 (L) | 13.5 - 17.5 | [facility] | | | | | g/dL | DEPARTMENT | | | | | | OF | | | | | | PATHOLOGY | | + + + + + + | HEMATOCRIT | 32.9 (L) | 41.0 - 53.0 % | [facility] | | | | | | DEPARTMENT | | | | | | OF | | | | | | PATHOLOGY | | + + + + + + | MCV | 96.2 (H) | 80.0 - 96.0 fL | [facility] | | | | | | DEPARTMENT | | | | | | OF | | | | | | PATHOLOGY | | + + + + + + | MCHC | 35.1 | 33.4 - 35.5 | [facility] | [...] + + + + | PLATELET | 132 (L) | 150 - 400 K/cu | [...] + + + | [facility] DEPARTMENT OF | [address] | [place] [address] | | | PATHOLOGY | [address] | | | + + + + + | [facility] DEPARTMENT OF | [address] | [place] [address] | | | PATHOLOGY | [address] | | | + + + + + MAGNESIUM, PLASMA (09/21/2005 9:15 AM PST) + +-------+ + + + | Component | Value | Ref Range | Performed | Pathologist | | | | | At | Signature | + +-------+ + + + | MAGNESIUM,P | 2.0 | 1.8 - 2.5 mg/dL | [facility] | | | LASMA | | | DEPARTMENT | | | [...] + + + | [facility] DEPARTMENT | [address] | [place] [address] | | | PATHOLOGY | [address] | | | + + + + + | [facility] | [address] | [place] [address] | | | PATHOLOGY | [address] | | | + + + + + PHOSPHORUS, PLASMA (09/21/2005 9:15 AM PST) + +-------+ + + + | Component | Value | Ref Range | Performed | Pathologist | | | | | At | Signature | + +-------+ + + + | PHOSPHORUS, | 3.2 | 2.4 - 4.7 mg/dL | [facility] [...] + + + | [facility] DEPARTMENT OF | [address] | [place] [address] | | | PATHOLOGY | [address] | | | + + + + + | [facility] DEPARTMENT OF | [address] | [place] [address] | | | PATHOLOGY | [address] | | | + + + + + CBC ONLY WITH PLATELET (09/21/2005 9:15 AM PST) + + + + + + | Component | Value | Ref Range | Performed | Pathologist | | | | | At | Signature | + + + + + + | WHITE CELL | 6.1 | 4.4 - 11.0 K/cu | [facility] | | | COUNT | | mm | DEPARTMENT | | | | | | OF | | | | | | PATHOLOGY | | + + + + + + | RED CELL | 3.40 (L) | 4.50 - 5.90 | [facility] | | | COUNT | | M/cu mm | DEPARTMENT | | | | | | OF | | | | | | PATHOLOGY | | + + + + + + | HEMOGLOBIN | 11.2 (L) | 13.5 - 17.5 | [facility] | | | | | g/dL | DEPARTMENT | | | | | | OF | | | | | | PATHOLOGY | | + + + + + + | HEMATOCRIT | 32.6 (L) | 41.0 - 53.0 % | [facility] | | | | | | DEPARTMENT | | | | | | OF | | | | | | PATHOLOGY | | + + + + + + | MCV | 95.7 | 80.0 - 96.0 fL | [facility] | | | | | | DEPARTMENT | | | | | | OF | | | | | | PATHOLOGY | | + + + + + + | MCHC | 34.3 | 33.4 - 35.5 | [facility] | | | | | g/dL | DEPARTMENT | | | | | | OF | | | | | | PATHOLOGY | | + + + + + + | RDW | 12.5 | 11.5 - 15.0 % | [facility] | | | | | | DEPARTMENT | | | | | | OF | | | | | | PATHOLOGY | | + + + + + + | PLATELET | 114 (L) | 150 - 400 K/cu | [...] DEPARTMENT OF | [address] | [place] [address] | | | PATHOLOGY | [address] | | | + + + + + | [facility] DEPARTMENT OF | [address] | [place] [address] | | | PATHOLOGY | [address] | | | + + + + + BASIC METABOLIC SET (09/21/2005 9:15 AM PST) + +---------+ + + + | Component | Value | Ref Range | Performed | Pathologist | | | | | At | Signature | + +---------+ + + + | GLUCOSE, | 136 (H) | 65 - 110 mg/dL | [facility] [...] + + | POTASSIUM, | 3.6 | 3.5 - 5.1 | [facility] | | | PLASMA | | mmol/L | DEPARTMENT | | | (LAB) | | | OF | | | | | | PATHOLOGY | | + +---------+ + + + | CHLORIDE, | 97 (L) | 98 - 107 mmol/L | [facility] | | | PLASMA | | | DEPARTMENT | | | (LAB) | | | OF | | | | | | PATHOLOGY | | + +---------+ + + + | TOTAL CO2, | 33 (H) | 23 - 29 mmol/L | [facility] | | | PLASMA | | | DEPARTMENT | | | (LAB) | | | OF | | | | | | PATHOLOGY | | + +---------+ + + + | CALCIUM, | 7.9 (L) | 8.5 - 10.5 | [facility] | [...] + + + | [facility] DEPARTMENT OF | [address] | [place] [address] | | | PATHOLOGY | [address] | | | + + + + + | [facility] DE[facility]MENT OF | [address] | [place] [address] | | | PATHOLOGY | [address] | | | + + + + + PHOSPHORUS, PLASMA (09/20/2005 8:27 AM PST) + +-------+ + + + [...] | + + + + + | [facility] | [facility] | [place] [address] | | | PATHOLOGY | [address] | | | + + + + + | [facility] DEPARTMENT OF | [facility] | [place] [address] | | | PATHOLOGY | [address] | | | + + + + + CBC ONLY WITH PLATELET (09/20/2005 8:27 AM PST) + + + + + + | Component | Value | Ref Range | Performed | Pathologist | | | | | At | Signature | + + + + + + | WHITE CELL | 9.4 | 4.4 - 11.0 K/cu | [facility] | | | COUNT | | mm | DEPARTMENT | | | | | | OF | | | | | | PATHOLOGY | | + + + + + + | RED CELL | 3.69 (L) | 4.50 - 5.90 | [facility] | | | COUNT | | M/cu mm | DEPARTMENT | | | | | | OF | | | | | | PATHOLOGY | | + + + + + + | HEMOGLOBIN | 12.1 (L) | 13.5 - 17.5 | [facility] | | | | | g/dL | DEPARTMENT | | | | | | OF | | | | | | PATHOLOGY | | + + + + + + | HEMATOCRIT | 35.4 (L) | 41.0 - 53.0 % | [facility] | | | | | | DEPARTMENT | | | | | | OF | | | | | | PATHOLOGY | | + + + + + + | MCV | 95.9 | 80.0 - 96.0 fL | [facility] | | | | | | DEPARTMENT | | | | | | OF | | | | | | PATHOLOGY | | + + + + + + | MCHC | 34.2 | 33.4 - 35.5 | [facility] | | | | | g/dL | DEPARTMENT | | | | | | OF | | | | | | PATHOLOGY | | + + + + + + | RDW | 12.7 | 11.5 - 15.0 % | [facility] | | | | | | DEPARTMENT | | | | | | OF | | | | | | PATHOLOGY | | + + + + + + | PLATELET | 127 (L) | 150 - 400 K/cu | [...] + | [facility] DEPARTMENT OF | [address] | [place] [address] | | | PATHOLOGY | [address] | | | + + + + + | [facility] DE[facility]MENT OF | [address] | [place] [address] | | | PATHOLOGY | [address] | | | + + + + + MAGNESIUM, PLASMA (09/20/2005 8:27 AM PST) + +-------+ + + + | Component | Value | Ref Range | Performed | Pathologist | | | | | At | Signature | + +-------+ + + + | MAGNESIUM,P | 1.8 | 1.8 - 2.5 mg/dL | [facility] | | | LASMA | | | DEPARTMENT | | | | | | OF | | | | | | PATHOLOGY | | + +-------+ + + + + + | Specimen | + + | | + + + + + + + | Performing | Address | City/State/Zipcode | Phone Number | | Organization | | | | + + + + + | [facility] | [address] | [place] [address] | | | PATHOLOGY | [address] | | | + + + + + | [facility] | [address] | [place] [address] | | | PATHOLOGY | [address] | | | + + + + + BASIC METABOLIC SET (09/20/2005 8:27 AM PST) + +---------+ + + + | Component | Value | Ref Range | Performed | Pathologist | | | | | At | Signature | + +---------+ + + + | GLUCOSE, | 105 | 65 - 110 mg/dL | [facility] | | | PLASMA | | | DEPARTMENT | | | (LAB) | | | OF | | | | | | PATHOLOGY | | + +---------+ + + + | BUN, PLASMA | 2 (L) | 6 - 20 mg/dL | [facility] [...] + + + | POTASSIUM, | 3.4 (L) | 3.5 - 5.1 | [facility] | | | PLASMA | | mmol/L | DEPARTMENT | | | (LAB) | | | OF | | | | | | PATHOLOGY | | + +---------+ + + + | CHLORIDE, | 101 | 98 - 107 mmol/L | [facility] | | | PLASMA | | | DEPARTMENT | | | (LAB) | | | OF | | | | | | PATHOLOGY | | + +---------+ + + + | TOTAL CO2, | 31 (H) | 23 - 29 mmol/L | [facility] | | | PLASMA | | | DEPARTMENT | | | (LAB) | | | OF | | | | | | PATHOLOGY | | + +---------+ + + + | CALCIUM, | 7.8 (L) | 8.5 - 10.5 | [facility] | [...] + + + | [facility] DEPARTMENT OF | [address] [address] | [place] [address] | | | PATHOLOGY | [address] | | | + + + + + | [facility] DEPARTMENT OF | [address] [place] [address] [address] | [place] [address] | | | PATHOLOGY | [address] | | | + + + + + MAGNESIUM, PLASMA (09/19/2005 11:26 AM PST) + +-------+ + + + | Component | Value | Ref Range | Performed | Pathologist | | | | | At | Signature | + +-------+ + + + | MAGNESIUM,P | 1.9 | 1.8 - 2.5 mg/dL | [facility] | | | LASMA | | | DEPARTMENT | | | [...] DEPARTMENT OF | [address] | [place] [address] | | | PATHOLOGY | [address] | | | + + + + + | [facility] DEPARTMENT OF | [address] | [place] [address] | | | PATHOLOGY | [address] | | | + + + + + PHOSPHORUS, PLASMA (09/19/2005 11:26 AM PST) + +-------+ + + + | Component | Value | Ref Range | Performed | Pathologist | | | | | At | Signature | + +-------+ + + + | PHOSPHORUS, | 2.6 | 2.4 - 4.7 mg/dL | [facility] | | | PLASMA | | | [...] + + + | [facility] DEPARTMENT OF | [address] | [place] [address] | | | PATHOLOGY | [address] | | | + + + + + | [facility] DEPARTMENT OF | [facility] | [place] [address] | | | PATHOLOGY | [address] | | | + + + + + BASIC METABOLIC SET (09/19/2005 11:26 AM PST) + +---------+ + + + | Component | Value | Ref Range | Performed | Pathologist | | | | | At | Signature | + +---------+ + + + | GLUCOSE, | 139 (H) | 65 - 110 mg/dL | [facility] | | | PLASMA | | | DEPARTMENT | | | (LAB) | | | OF | | | | | | PATHOLOGY | | + +---------+ + + + | BUN, PLASMA | 4 (L) | 6 - 20 mg/dL | [facility] | | | (LAB) | | | DEPARTMENT | | | | | | OF | | | | | | PATHOLOGY | | + +---------+ + + + | CREATININE | 0.7 | 0.7 - 1.3 mg/dL | [facility] [...] +---------+ + + + | POTASSIUM, | 4.0 | 3.5 - 5.1 | [facility] | | | PLASMA | | mmol/L | DEPARTMENT | | | (LAB) | | | OF | | | | | | PATHOLOGY | | + +---------+ + + + | CHLORIDE, | 103 | 98 - 107 mmol/L | [facility] | | | PLASMA | | | DEPARTMENT | | | (LAB) | | | OF | | | | | | PATHOLOGY | | + +---------+ + + + | TOTAL CO2, | 26 | 23 - 29 mmol/L | [facility] | | | PLASMA | | | DEPARTMENT | | | (LAB) | | | OF | | | | | | PATHOLOGY | | + +---------+ + + + | CALCIUM, | 7.6 (L) | 8.5 - 10.5 | [facility] | [...] | + + + + + | [facility] | [facility] | [place] [address] | | | PATHOLOGY | [address] | | | + + + + + | [facility] DEPARTMENT OF | [facility] | [place] [address] | | | PATHOLOGY | [address] | | | + + + + + CBC ONLY WITH PLATELET (09/19/2005 11:26 AM PST) + + + + + + | Component | Value | Ref Range | Performed | Pathologist | | | | | At | Signature | + + + + + + | WHITE CELL | 10.4 | 4.4 - 11.0 K/cu | [facility] | | | COUNT | | mm | DEPARTMENT | | | | | | OF | | | | | | PATHOLOGY | | + + + + + + | RED CELL | 3.63 (L) | 4.50 - 5.90 | [facility] | | | COUNT | | M/cu mm | DEPARTMENT | | | | | | OF | | | | | | PATHOLOGY | | + + + + + + | HEMOGLOBIN | 11.8 (L) | 13.5 - 17.5 | [facility] | | | | | g/dL | DEPARTMENT | | | | | | OF | | | | | | PATHOLOGY | | + + + + + + | HEMATOCRIT | 34.9 (L) | 41.0 - 53.0 % | [facility] | | | | | | DEPARTMENT | | | | | | OF | | | | | | PATHOLOGY | | + + + + + + | MCV | 96.1 (H) | 80.0 - 96.0 fL | [facility] | | | | | | DEPARTMENT | | | | | | OF | | | | | | PATHOLOGY | | + + + + + + | MCHC | 33.9 | 33.4 - 35.5 | [facility] | | | | | g/dL | DEPARTMENT | | | | | | OF | | | | | | PATHOLOGY | | + + + + + + | RDW | 12.9 | 11.5 - 15.0 % | [facility] [...] + | [facility] DEPARTMENT OF | [address] | [place] [address] | | | PATHOLOGY | [address] | | | + + + + + | [facility] DE[facility]MENT OF | [address] | [place] [address] | | | PATHOLOGY | [address] | | | + + + + + PHOSPHORUS, PLASMA (09/19/2005 6:01 AM PST) + + + + + + | Component | Value | Ref Range | Performed | Pathologist | | | | | At | Signature | + + + + + + | PHOSPHORUS, | See cmnt | 2.4 - 4.7 mg/dL | [facility] | | | PLASMA | | | DEPARTMENT | | | (LAB) | | | OF | | | | | | PATHOLOGY | | + + + + + + + + | Specimen | + + | | + + + + + | Narrative | Performed At | + + + | Test rescheduled | [facility] | | | DEPARTMENT OF | | | PATHOLOGY | + + + + + + + + | Performing | Address | City/State/Zipcode | Phone Number | | Organization | | | | + + + + + | [facility] DEPARTMENT OF | [address] | [place] [address] | | | PATHOLOGY | [address] | | | + + + + + | [facility] DEPARTMENT OF | [address] | [place] [address] | | | PATHOLOGY | [address] | | | + + + + + MAGNESIUM, PLASMA (09/19/2005 6:01 AM PST) + + + + + + | Component | Value | Ref Range | Performed | Pathologist | | | | | At | Signature | + + + + + + | MAGNESIUM,P | See cmnt | 1.8 - 2.5 mg/dL | [facility] | | | LASMA | | | DEPARTMENT | | | | | | OF | | | | | | PATHOLOGY | | + + + + + + + + | Specimen | + + | | + + + + + | Narrative | Performed At | + + + | Test rescheduled | [facility] | | | DEPARTMENT OF | | | PATHOLOGY | + + + + + + + + | Performing | Address | City/State/Zipcode | Phone Number | | Organization | | | | + + + + + | [facility] | [address] | [place] [address] | | | PATHOLOGY | [address] | | | + + + + + | [facility] | [address] | [place] [address] | | | PATHOLOGY | [address] | | | + + + + + BASIC METABOLIC SET (09/19/2005 6:01 AM PST) + + + + + + | Component | Value | Ref Range | Performed | Pathologist | | | | | At | Signature | + + + + + + | GLUCOSE, | See cmnt | 65 - 110 mg/dL | [facility] | | | PLASMA | | | DEPARTMENT | | | (LAB) | | | OF | | | | | | PATHOLOGY | | + + + + + + | BUN, PLASMA | See cmnt | 6 - 20 mg/dL | [facility] | | | (LAB) | | | DEPARTMENT | | | | | | OF | | | | | | PATHOLOGY | | + + + + + + | CREATININE | See cmnt | 0.7 - 1.3 mg/dL | [facility] | | | PLASMA | | | DEPARTMENT | | | (LAB) | | | OF | | | | | | PATHOLOGY | | + + + + + + | SODIUM, | See cmnt | 136 - 145 | [facility] | | | PLASMA | | mmol/L | DEPARTMENT | | | (LAB) | | | OF | | | | | | PATHOLOGY | | + + + + + + | POTASSIUM, | See cmnt | 3.5 - 5.1 | [facility] | | | PLASMA | | mmol/L | DEPARTMENT | | | (LAB) | | | OF | | | | | | PATHOLOGY | | + + + + + + | CHLORIDE, | See cmnt | 98 - 107 mmol/L | [facility] | | | PLASMA | | | DEPARTMENT | | | (LAB) | | | OF | | | | | | PATHOLOGY | | + + + + + + | TOTAL CO2, | See cmnt | 23 - 29 mmol/L | [facility] | | | PLASMA | | | DEPARTMENT | | | (LAB) | | | OF | | | | | | PATHOLOGY | | + + + + + + | CALCIUM, | See cmnt | 8.5 - 10.5 | [facility] | | | PLASMA | | mg/dL | DEPARTMENT | | | (LAB) | | | OF | | | | | | PATHOLOGY | | + + + + + + | POTASSIUM | See cmnt | | [facility] | | | CMNT | | | DEPARTMENT | | | | | | OF | | | | | | PATHOLOGY | | + + + + + + + + | Specimen | + + | | + + + + + | Narrative | Performed At | + + + | Test rescheduled | [facility] | | | DEPARTMENT OF | | | PATHOLOGY | + + + + + + + + | Performing | Address | City/State/Zipcode | Phone Number | | Organization | | | | + + + + + | [facility] DEPARTMENT OF | [address] | [place] [address] | | | PATHOLOGY | [address] | | | + + + + + | [facility] DEPARTMENT OF | [address] | [place] [address] | | | PATHOLOGY | [address] | | | + + + + + CBC ONLY WITH PLATELET (09/19/2005 6:01 AM PST) + + + + + + | Component | Value | Ref Range | Performed | Pathologist | | | | | At | Signature | + + + + + + | WHITE CELL | See cmnt | 4.4 - 11.0 K/cu | [facility] | | | COUNT | | mm | DEPARTMENT | | | | | | OF | | | | | | PATHOLOGY | | + + + + + + | RED CELL | See cmnt | 4.50 - 5.90 | [facility] | | | COUNT | | M/cu mm | DEPARTMENT | | | | | | OF | | | | | | PATHOLOGY | | + + + + + + | HEMOGLOBIN | See cmnt | 13.5 - 17.5 | [facility] | | | | | g/dL | DEPARTMENT | | | | | | OF | | | | | | PATHOLOGY | | + + + + + + | HEMATOCRIT | See cmnt | 41.0 - 53.0 % | [facility] | | | | | | DEPARTMENT | | | | | | OF | | | | | | PATHOLOGY | | + + + + + + | MCV | See cmnt | 80.0 - 96.0 fL | [facility] | | | | | | DEPARTMENT | | | | | | OF | | | | | | PATHOLOGY | | + + + + + + | MCHC | See cmnt | 33.4 - 35.5 | [facility] | | | | | g/dL | DEPARTMENT | | | | | | OF | | | | | | PATHOLOGY | | + + + + + + | RDW | See cmnt | 11.5 - 15.0 % | [facility] | | | | | | DEPARTMENT | | | | | | OF | | | | | | PATHOLOGY | | + + + + + + | PLATELET | See cmnt | 150 - 400 K/cu | [facility] | | | COUNT | | mm | DEPARTMENT | | | | | | OF | | | | | | PATHOLOGY | | + + + + + + + + | Specimen | + + | | + + + + + | Narrative | Performed At | + + + | Test rescheduled | [facility] | | | DEPARTMENT OF | | | PATHOLOGY | + + + + + + + + | Performing | Address | City/State/Zipcode | Phone Number | | Organization | | | | + + + + + | [facility] DEPARTMENT OF | [address] | [place] [address] | | | PATHOLOGY | [address] | | | + + + + + | [facility] DEPARTMENT OF | [address] | [place] [address] | | | PATHOLOGY | [address] | | | + + + + + CALCIUM, IONIZED, WHOLE BLOOD (09/19/2005 12:50 AM PST) + + + + + + | Component | Value | Ref Range | Performed | Pathologist | | | | | At | Signature | + + + + + + | EASTON ICA, | 1.03 (L) | 1.14 - 1.32 | [facility] | | | WHOLE BLD | | mmol/L | DEPARTMENT | | | | | | OF | | | | | | PATHOLOGY | | + + + + + + | PH, WHOLE | 7.37 | | [facility] | | | BLOOD | | | DEPARTMENT | | | | | | OF | | | | | | PATHOLOGY | | + + + + + + | CALC ICA, | 1.02 (L) | 1.14 - 1.28 | [facility] | | | WHOLE BLD | | mmol/L | DEPARTMENT | | | | | | OF | | | | | | PATHOLOGY | | + + + + + + + + | Specimen | + + | | + + + + + | Narrative | Performed At | + + + | Ionized Calcium, Whole Blood | [facility] | | | DEPARTMENT OF | | | PATHOLOGY | + + + + + + + + | Performing | Address | City/State/Zipcode | Phone Number | | Organization | | | | + + + + + | [facility] DEPARTMENT OF | [address] | [place] [address] | | | PATHOLOGY | [address] | | | + + + + + | [facility] DEPARTMENT OF | [address] | [place] [address] | | | PATHOLOGY | [address] | | | + + + + + CBC ONLY WITH PLATELET (09/18/2005 9:45 PM PST) + + + + + + | Component | Value | Ref Range | Performed | Pathologist | | | | | At | Signature | + + + + + + | WHITE CELL | 8.0 | 4.4 - 11.0 K/cu | [facility] | | | COUNT | | mm | DEPARTMENT | | | | | | OF | | | | | | PATHOLOGY | | + + + + + + | RED CELL | 3.30 (L) | 4.50 - 5.90 | [facility] | | | COUNT | | M/cu mm | DEPARTMENT | | | | | | OF | | | | | | PATHOLOGY | | + + + + + + | HEMOGLOBIN | 11.1 (L) | 13.5 - 17.5 | [facility] | | | | | g/dL | DEPARTMENT | | | | | | OF | | | | | | PATHOLOGY | | + + + + + + | HEMATOCRIT | 31.4 (L) | 41.0 - 53.0 % | [facility] | | | | | | DEPARTMENT | | | | | | OF | | | | | | PATHOLOGY | | + + + + + + | MCV | 95.1 | 80.0 - 96.0 fL | [facility] | | | | | | DEPARTMENT | | | | | | OF | | | | | | PATHOLOGY | | + + + + + + | MCHC | 35.5 | 33.4 - 35.5 | [facility] | | | | | g/dL | DEPARTMENT | | | | | | OF | | | | | | PATHOLOGY | | + + + + + + | RDW | 12.9 | 11.5 - 15.0 % | [facility] | | | | | | DEPARTMENT | | | | | | OF | | | | | | PATHOLOGY | | + + + + + + | PLATELET | 122 (L) | 150 - 400 K/cu | [...] DEPARTMENT OF | [address] | [place] [address] | | | PATHOLOGY | [address] | | | + + + + + | [facility] DEPARTMENT OF | [address] | [place] [address] | | | PATHOLOGY | [address] | | | + + + + + PHOSPHORUS, PLASMA (09/18/2005 9:45 PM PST) + +-------+ + + + | Component | Value | Ref Range | Performed | Pathologist | | | | | At | Signature | + +-------+ + + + | PHOSPHORUS, | 4.0 | 2.4 - 4.7 mg/dL | [facility] [...] + + + | [facility] DEPARTMENT OF | [facility] | [place] [address] | | | PATHOLOGY | [address] | | | + + + + + | [facility] DEPARTMENT OF | [address] | [place] [address] | | | PATHOLOGY | [address] | | | + + + + + BASIC METABOLIC SET (09/18/2005 9:45 PM PST) + +---------+ + + + | Component | Value | Ref Range | Performed | Pathologist | | | | | At | Signature | + +---------+ + + + | GLUCOSE, | 117 (H) | 65 - 110 mg/dL | [facility] | | | PLASMA | | | DEPARTMENT | | | (LAB) | | | OF | | | | | | PATHOLOGY | | + +---------+ + + + | BUN, PLASMA | 9 | 6 - 20 mg/dL | [facility] | | | (LAB) | | | DEPARTMENT | | | | | | OF | | | | | | PATHOLOGY | | + +---------+ + + + | CREATININE | 0.7 | 0.7 - 1.3 mg/dL | [facility] [...] +---------+ + + + | POTASSIUM, | 4.0 | 3.5 - 5.1 | [facility] | | | PLASMA | | mmol/L | DEPARTMENT | | | (LAB) | | | OF | | | | | | PATHOLOGY | | + +---------+ + + + | CHLORIDE, | 101 | 98 - 107 mmol/L | [facility] | | | PLASMA | | | DEPARTMENT | | | (LAB) | | | OF | | | | | | PATHOLOGY | | + +---------+ + + + | TOTAL CO2, | 26 | 23 - 29 mmol/L | [facility] | | | PLASMA | | | DEPARTMENT | | | (LAB) | | | OF | | | | | | PATHOLOGY | | + +---------+ + + + | CALCIUM, | 7.3 (L) | 8.5 - 10.5 | [facility] | | | PLASMA | | mg/dL [...] + + + | [facility] DEPARTMENT OF | [address] | [place] [address] | | | PATHOLOGY | [address] | | | + + + + + | [facility] DEPARTMENT OF | [address] | [place] [address] | | | PATHOLOGY | [address] | | | + + + + + MAGNESIUM, PLASMA (09/18/2005 9:45 PM PST) + +---------+ + + + | Component | Value | Ref Range | Performed | Pathologist | | | | | At | Signature | + +---------+ + + + | MAGNESIUM,P | 1.6 (L) | 1.8 - 2.5 mg/dL | [facility] | | | LASMA | | | DEPARTMENT | | | | | | OF | | | | | | PATHOLOGY | | + +---------+ + + + + + | Specimen | + + | | + + + + + + + | Performing | Address | City/State/Zipcode | Phone Number | | Organization | | | | + + + + + | [facility] | [address] | [place] [address] | | | PATHOLOGY | [address] | | | + + + + + | [facility] | [address] | [place] [address] | | | PATHOLOGY | [address] | | | + + + + + SURGICAL PATHOLOGY (09/18/2005) + + + + + + | Component | Value | Ref Range | Performed | Pathologist | | | | | At | Signature | + + + + + + | SURGICAL | SOURCE OF SPECIMEN:A | | [facility] | | | PATHOLOGY | Ear, temporal bone, | | DEPARTMENT | | | | parotidSOURCE OF | | OF | | | | SPECIMEN:B Right neck | | PATHOLOGY | | | | level 2-ASOURCE OF | | | | | | SPECIMEN:C Right neck | | | | | | level 1-BSOURCE OF | | | | | | SPECIMEN:D Right neck | | | | | | level 2-BSOURCE OF | | | | | | SPECIMEN:E Right neck | | | | | | level 3 Final Pathologic | | | | | | Diagnosis:A: Right | | | | | | ear, temporal bone and | | | | | | parotid, composite | | | | | | resection:- 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, | | | | | | moderately | | | | | | differentiated, | | | | | | withulceration (3.2 cm | | | | | | in maximum dimension) | | | | | | - Tumor is 0.3 cm | | | | | | from nearest margin | | | | | | (deep margin at superior | | | | | | aspect) - | | | | | | Extensive perineural | | | | | | invasion - No | | | | | | vascular invasion | | | | | | identified - Two | | | | | | lymph nodes, negative | | | | | | for malignancy (0/2) | | | | | | - TNM stage: pT2c | | | | | | pN0 MX - Skin with | | | | | | extensive solar | | | | | | elastosis - | | | | | | Parotid gland with no | | | | | | diagnostic abnormality | | | | | | B: Lymph nodes, right | | | | | | neck level 2-A, | | | | | | dissection: - | | | | | | Three lymph nodes, | | | | | | negative for malignancy | | | | | | (0/3) C: Lymph nodes, | | | | | | right neck level 1-B, | | | | | | dissection: - | | | | | | Three lymph nodes, | | | | | | negative for malignancy | | | | | | (0/3) - Minor | | | | | | salivary gland, negative | | | | | | for malignancy D: | | | | | | Lymph nodes, right | | | | | | neck level 2-B, | | | | | | dissection: - | | | | | | Fifteen lymph nodes, | | | | | | negative for malignancy | | | | | | (015) E: Lymph | | | | | | nodes, right neck level | | | | | | 3, dissection: - | | | | | | Nineteen lymph nodes, | | | | | | negative for malignancy | | | | | | (0) Case reviewed | | | | | | by:Francesca Bennett M.D. | | | | | | /ResidentConor [place] | | | | | | Puneet Fowler, Ph.D. | | | | | | /PathologistT:09/25// | | | | | | I have reviewed all | | | | | | diagnostic slides and | | | | | | have edited the gross | | | | | | and/ormicroscopic | | | | | | portion of this report | | | | | | as part of my pathologic | | | | | | assessment andfinal | | | | | | diagnosis. 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 | | | | | | Gross Description:Five | | | | | | specimens are received | | | | | | fresh. A: Ear, | | | | | | temporal bone, parotid: | | | | | | Received is a skin | | | | | | ellipse that measures6.9 | | | | | | x 6.2 cm with an | | | | | | attached ear that | | | | | | measures 6.5 (SI) x 3.7 | | | | | | (AP) x 2.0(ML) cm. The | | | | | | skin is excised to a | | | | | | depth of 5.0 cm and | | | | | | includes a 2.7 cmlength | | | | | | of ear canal and | | | | | | temporal bone. The | | | | | | temporal bone has a | | | | | | maximumdiameter of 2.0 | | | | | | cm. The attached soft | | | | | | tissue includes attached | | | | | | skeletalmuscle and | | | | | | parotid gland measuring | | | | | | 5.5 (SI) x 4.3 (AP) x | | | | | | 1.7 (ML)-cm. Theskin | | | | | | is wrinkled, hair | | | | | | bearing reyna-pink with a | | | | | | central ulcerating, | | | | | | foulsmelling lesion that | | | | | | measures 3.2 cm in | | | | | | diameter and involving | | | | | | the tragus.The lesion | | | | | | does not involve the | | | | | | helix. The ulcerated | | | | | | lesion has a | | | | | | raised,firm, littlejohn-black | | | | | | rim that measures 0.3 cm | | | | | | in thickness. The | | | | | | centralulceration | | | | | | extends 0.7 cm into the | | | | | | underlying soft tissue | | | | | | and has amottled, | | | | | | littlejohn-brown surface. | | | | | | The lesion is 1.5 cm | | | | | | from the anteriormargin, | | | | | | 2.0 cm from the | | | | | | inferior margin, 1.5 cm | | | | | | from the superior | | | | | | margin,and 2.2 cm from | | | | | | the posterior margin. | | | | | | The skeletal muscle is | | | | | | beefy redwithout | | | | | | lesions. The parotid | | | | | | gland has a lobular, | | | | | | red-purple | | | | | | surfacewithout lesions. | | | | | | The portion of the | | | | | | temporal bone is hard | | | | | | and reyna, withoutlesions. | | | | | | The superior half of | | | | | | the parotid gland, | | | | | | skeletal muscle | | | | | | andsurgical margins is | | | | | | inked black, and the | | | | | | inferior half is inked | | | | | | blue.Sectioning of the | | | | | | lesion reveals the | | | | | | ulceration extends 1.0 | | | | | | cm into theunderlying | | | | | | soft tissue with an | | | | | | additional 0.5 cm rim of | | | | | | discoloration. | | | | | | Thediscolored soft | | | | | | tissue abuts the | | | | | | cartilage of the ear | | | | | | canal but does notextend | | | | | | into the ear canal. | | | | | | The lesion approaches | | | | | | to within 0.3 of | | | | | | theinked deep margin, | | | | | | but does not appear to | | | | | | involve the underlying | | | | | | parotidgland. A 1.0 x | | | | | | 0.5 x 0.5-cm possible | | | | | | intraparotid lymph node | | | | | | is present inthe | | | | | | inferior portion of the | | | | | | parotid. A | | | | | | retail representative cross | | | | | | section of theinferior | | | | | | parotid and possible | | | | | | lymph node is submitted. | | | | | | B: Right neck level | | | | | | 2A: Received is a 3.7 | | | | | | x 2.2 x 1.0-cm | | | | | | irregularfragment of | | | | | | soft to rubbery, | | | | | | lobular, pink-brown | | | | | | tissue. Two | | | | | | possiblelymph nodes are | | | | | | identified and measure | | | | | | 1.5 x 1.0 x 0.5 cm and | | | | | | 2.6 x 1.4 x1.0 cm. | | | | | | Both possible lymph | | | | | | nodes are bisected to | | | | | | reveal a | | | | | | glistening,reyna-white cut | | | | | | surface. The entire | | | | | | specimen is submitted. | | | | | | C: Right neck, level | | | | | | 1B: Received is a 5.8 | | | | | | x 3.8 x 1.5-cm | | | | | | irregularfragment of | | | | | | rubbery, lobular, | | | | | | reyna-pink tissue. Three | | | | | | possible lymph | | | | | | nodesranging from 0.9 x | | | | | | 0.6 x 0.5 cm to 1.5 x | | | | | | 1.0 x 0.6 cm are | | | | | | identified. Thethree | | | | | | possible lymph nodes are | | | | | | bisected to reveal a | | | | | | glistening, | | | | | | reyna-purplecut surface. | | | | | | Three possible lymph | | | | | | nodes are submitted in | | | | | | toto. Sectioningof the | | | | | | remainder of the tissue | | | | | | reveals encapsulated, | | | | | | lobular, reyna-pinktissue | | | | | | consistent with salivary | | | | | | gland. No lesions are | | | | | | | | | | | | identified.Representativ | | | | | | e section of the | | | | | | salivary gland and the | | | | | | remaining attachedsoft | | | | | | tissue is submitted. D: | | | | | | Right neck, level 2B: | | | | | | Received is a 3.5 x | | | | | | 2.0 x 0.9-cm | | | | | | irregularfragment of | | | | | | rubbery, reyna-pink | | | | | | tissue. Five possible | | | | | | lymph nodes rangingfrom | | | | | | 0.8 x 0.6 x 0.5 cm to | | | | | | 1.5 x 1.0 x 0.9 cm are | | | | | | identified. The | | | | | | foursmaller lymph nodes | | | | | | are submitted in toto. | | | | | | The larger lymph node | | | | | | isbisected to reveal a | | | | | | glistening, reyna-purple | | | | | | cut surface. The | | | | | | entirespecimen is | | | | | | submitted. E: Right | | | | | | neck, level 3: | | | | | | Received is a 3.6 x | | | | | | 2.2 x 1.0-cm | | | | | | irregularfragment of | | | | | | rubbery, reyna-pink | | | | | | tissue. Ten possible | | | | | | lymph nodes rangingfrom | | | | | | 0.3 x 0.2 x 0.2-cm to | | | | | | 1.7 x 0.6 x 0.5 cm are | | | | | | identified. The | | | | | | entirespecimen is | | | | | | submitted. Cassette | | | | | | Index:A: Ear, temporal | | | | | | bone, parotid:A1, | | | | | | medial temporal bone | | | | | | margin, en face, in | | | | | | toto, | | | | | | decalcificationperformed | | | | | | A2-3, full cross section | | | | | | of lesion at the 12:00 | | | | | | margin, bisectedA4-5, | | | | | | lesion to 3:00 margin, | | | | | | bisectedA6-7, lesion to | | | | | | 6:00 margin, including | | | | | | cross section of ear | | | | | | canal andtemporal bone, | | | | | | bisected (A7, | | | | | | decalcification | | | | | | performed)A8-9, lesion | | | | | | to 9:00 margin, | | | | | | [id number], ear canal | | | | | | and underlying temporal | | | | | | bone, cross section, | | | | | | decalcificationperformed | | | | | | A11, lesion to closest | | | | | | deep margin | | | | | | (approximately 9:00)A12, | | | | | | parotid with one | | | | | | possible lymph node B: | | | | | | Right neck level | | | | | | 2A:B1, smaller possible | | | | | | lymph node, bisectedB2, | | | | | | larger possible lymph | | | | | | node, bisectedB3, | | | | | | remainder of tissueC: | | | | | | Right neck, level | | | | | | 1B:C1, three possible | | | | | | lymph nodes, bisectedC2, | | | | | | salivary glandC3-4, | | | | | | remainder of soft | | | | | | tissueD: Right neck, | | | | | | level 2B:D1, four | | | | | | possible lymph nodesD2, | | | | | | one possible lymph node, | | | | | | bisectedD3-4, remainder | | | | | | of soft tissueE: | | | | | | Right neck, level | | | | | | 3:E1, six possible lymph | | | | | | nodesE2, two possible | | | | | | lymph nodesE3, two | | | | | | possible lymph | | | | | | nodesE4-5, remainder of | | | | | | soft | | | | | | tissueCS:labRendering | | | | | | Diagnostician: | | | | | | Conor Fowler | | | | | | | | | | | | Puneet,Ph.D.PathologistEle | | | | | | ctronically Signed | | | | | | 09/25/2005 | | | | + + + + + + + + | Specimen | + + | | + + + + + + + | Performing | Address | City/State/Zipcode | Phone Number | | Organization | | | | + + + + + | [facility] | [address] | [place] [address] | | | PATHOLOGY | [address] | | | + + + + + | [facility] | [facility] | [place] [address] | | | PATHOLOGY | [address] | | | + + + + + documented in this encounter Visit Diagnoses Not on filedocumented in this encounter"
--- OUTSIDE RECORDS SUMMARY | ~2019-05-14 | XMS | Encounter Summary ---
Demographics + + + | Address | [address] | | | [place] [address] | + + + | Home Phone [...] + | Author | [facility] | + + + | Organization | [facility] | + [...] Team Providers + +------+ + | Care Motor Vehicle Clerk Name | Role | Phone | [...] | Pain | Diagnoses | Rito | Crate Liner Chh1 | | | Other | Management | Other | Miguel Burciaga MD | [address] | | | | | chronic pain | [address] | | | | | Procedures | [address] | Mailcode: | | | | | CONSULT TO | [address] | [facility] | | | | | PAIN | [place], [place] | for Health | | | | | MANAGEMENT | [address] | and Healing, | | | | | | Phone: | Building | | | | | | [phone] | [address] Floor | | | | | | Fax: | [place], [place] | | | | | | [phone] | [address] | | | | | | | Phone: | | | | | | | [phone] | | | | | | | Fax: | | | | | | | [phone] | +--------+ + + + + + Reason for Visit + + + | Reason | Comments | + + + | New patient | New patient painful open lesion on head and neck | | consultation | | + + + Consultation (Routine) [...] | | Liver | Coord Liver | Azulberger, | | | Required | | replaced by | [address] | Ed Patel MD | | | | | transplant | [place] | [address] | | | | | (HCC) | [address] | Ron Dowling | | | | | Procedures | [place], [place] | [place], [place] | | | | | CONSULT TO | [address] | [address] | | | | | [facility] DERM | Phone: | Phone: | | | | | SURGERY | [phone] | [phone] | | | | | eval & treat | Fax: | Fax: | | | | | | [phone] | [phone] | +--------+ + + + + + Encounter Details +--------+---------+ + + + | Date | Type | Department | Care Team | Description | +--------+---------+ + + + | 01/06/ | Office | Dermatology | Isabel, | Squamous cell | | 2018 | Visit | Medical at [facility] 5th | Ed Patel MD [address] | carcinoma (Primary | | | | Floor [address] | [address] | Dx); Other chronic | | | | Ave Mailcode: [address] | [place], [place] | pain | | | | [place] [facility] | [address] | | | | | and Healing, | [phone] | | | | | [place] [address] | | | | | | Floor | | | | | | [address] | | | | | | [phone] | | | +--------+---------+ + + + [...] of this encounter Patient Instructions Patient Instructions Miguel Veras MD - 2018 12:45 PM PDTYou have been seen tojazmine y by Dr. Ed Hall MD Diagnosis/Treatment plan: -- Will plan on treating skin cancers with serial Mohs surgeries (we will be able to treat two at a time). We will make sure that you are comfortable and relaxed during the procedure s. -- Please start nicotinamide 500mg twice a day. This is an over the counter vitamin that ca n potentially slow down the rate of developing new skin cancers -- We will send a note to your transplant doctor to discuss the option of starting acitreti n. This is also a medication that can help slow down the rate of developing new skin cancers . Potential adverse effects include dry eyes/lips, peeling of the palms and soles, problems with night vision, elevation of lipids/ liver function tests, headaches, muscles aches, join t aches, and hair loss. It can also cause photosensitivity. You would need regular bloodwork monitoring while on this medication. These should be repeated monthly for 3-6 months, then every 3 months. Please schedule an appointment for Mohs for treatment of the two skin cancers on your neck documented in this encounter Progress Notes Ed Hall MD - 2018 12:45 PM PDTAttending Physician Attestation I personally interviewed and examined the patient and discussed management with the residen t. I reviewed and edited the resident's note and agree with the documented findings and tonny n of care. Ed Hall M.D. [employer] Liqu[employer] Maker, Dermatologic Surgery [facility] Electronically signed by Ed Hall MD at 11:55 AM PDTJohnsonMiguel MD - 2018 12:45 PM PDT [facility] HIGH-RISK NON-MELANOMA SKIN CANCER CLINIC NEW PATIENT VISIT Type of solid organ transplant: Liver transplant Year of (first) transplant: 2011 Current immunosuppressive medications: mycophenolate mofetil and sirolimus Past immunosuppressive medications (if different): TOTAL SUN BURDEN (TSB): (<6 Low risk; 6-10 moderate risk, >10 high risk) Transplant care team: Dr. Dayron Donato MD (GI/hepatology) CC/REASON FOR CONSULT: Chief Complaint Patient presents with New patient consultation New patient painful open lesion on head and neck HISTORY OF PRESENT ILLNESS: Simeon Michaels Jr. is a 58 y.o. male referred by Ritesh freeman/ history of HCC, l iver transplant in 2011 (currently on Cellcept and sirolimus), and multiple NMSCs, who prese nts for evaluation of several tender lesions on his face and neck. He was followed by Dermat ology at the [facility] for many years. The last skin cancers that he had treated were in 2013. Over the years, he has become quite anxious of needles and surgeries. He is certai n that he has developed several new SCCs, but has been nervous to have them evaluated. He fe els he does not handle pain very well anymore. However, many of these new lesions have becom e quite tender and he is interested in having them treated. The most painful lesions are on his neck and cheeks. The lesions do not bleed. He does not believe they have been previously treated. His goals for treatment are symptomatic relief. He reports being on hospice many years ago and "should've ," but he is grateful to be alive and is looking forward to living at [facility] a few more years. He emphasizes that his pain tolerance is very low. At [facility], he was treated w/ Valium for Mohs procedures due to significant anxiety. He is hoping the s rbeekah thing can happen prior to procedures here. He is otherwise doing well with no further sk in concerns. Per chart review, he has been prescribed efudex in the past, but does not remember using it . He denies chemoprophylaxis with acitretin or nicotinamide. SKIN CANCER RISK HISTORY: Skin cancers treated at [facility]: BCC, L posterior neck s/p Mohs [...] 10/2013- Untreated or incompletely treated (per chart revie w, pt was prescribed efudex to use prior to Mohs surgery, but did not end up having Mohs sarah ramirez performed) SCCIS, R lateral lower eyelid s/p Mohs 10/2012 SCCIS, L upper chest s/p Mohs 10/2012 BCC, L lateral mid forearm s/p excision 05/2012 SCC, Central upper chest s/p C&D 05/2012 SCC, Central upper chest s/p Mohs 04/2012 Skin cancers treated at [facility]: Recurrent invasive SCC, R ear s/p radiation therapy followed by radical resection (auricule ctomy, removal of external auditory canal/ middle ear/ inner ear) and reconstruction w/ R re ctus flap 09/2005. SNLB was negative. Pt was under the impression that this was a melanoma, b ut per pathology and procedure reports from -09/2005, this was in fact SCC. - Last MRI face w/ no evidence of recurrence 01/2016 - Has suffered from chronic pain associated with the right side of his face s/p surgery in 2005. He was followed by Pain Management at [facility] for many years. PMHx: Patient Active Problem List Diagnosis Date Noted Renal mass 11/19/2017 Overview Note: Overview: Referral to Urology placed 11/19/2017 [facility] Hypertension Acute congestive heart failure (HCC) 08/23/2016 Overview Note: Overview: 1. Congestive Heart Failure: A. Echocardiogram 08/23/16, shows normal left ventricular size with moderate concentric le ft ventricular hypertrophy, there is a moderate global hypokinesis of the left ventricle, ov erall, left ventricular significant is moderately decreased, LVEF is 35-40%, mildly thickene d and calcified trileaflet aortic valve with adequate opening, there is a mild aortic valve insufficiency, mildly thickened and calcified mitral valve with a mild mitral valve regurgit ation, mild mitral annular calcification, small circumferential pericardial effusion without cardiac tamponade, normal right-sided pressure, normal IVC with normal respiratory collapse . B. Stress Test 08/25/16, shows persantine EKG is abnormal at baseline without diagnostic c hanges post stress, low risk persantine sestamibi myocardial perfusion study for coronary is chemia, notable for a small area of reduced uptake anteriorly as detailed above, suggestive of possible attenuation artifact versus a small true defect, with reduced LV systolic functi on and LV enlargement, LVEF by gated SPECT is 35%. 2. Cardiomyopathy 3. Essential hypertension with goal blood pressure less than 130/80 4. Pericardial effusion Overview: 1. Congestive Heart Failure: A. Echocardiogram 08/23/16, shows normal left ventricular size with moderate concentric le ft ventricular hypertrophy, there is a moderate global hypokinesis of the left ventricle, ov erall, left ventricular significant is moderately decreased, LVEF is 35-40%, mildly thickene d and calcified trileaflet aortic valve with adequate opening, there is a mild aortic valve insufficiency, mildly thickened and calcified mitral valve with a mild mitral valve regurgit ation, mild mitral annular calcification, small circumferential pericardial effusion without cardiac tamponade, normal right-sided pressure, normal IVC with normal respiratory collapse . B. Stress Test 08/25/16, shows persantine EKG is abnormal at baseline without diagnostic c hanges post stress, low risk persantine sestamibi myocardial perfusion study for coronary is chemia, notable for a small area of reduced uptake anteriorly as detailed above, suggestive of possible attenuation artifact versus a small true defect, with reduced LV systolic functi on and LV enlargement, LVEF by gated SPECT is 35%. 2. Cardiomyopathy 3. Essential hypertension with goal blood pressure less than 130/80 4. Pericardial effusion Problem List Environmental Permitting Specialist Utility Bilateral pleural effusion 08/23/2016 Liver transplant recipient (HCC) 06/26/2015 Overview Note: Overview: Transplant done in [place] 2011, following up with [facility]. Patient reports to have plans t o be treated for hepatitis-C through them. Personal history of liver cancer 06/26/2015 Chronic pain 09/12/2011 Mechanical ectropion 02/06/2006 Malignant neoplasm of cheek (HCC) 09/17/2005 Squamous cell carcinoma of skin of ear 09/17/2005 Overview Note: Overview: Patient has been followed by: Shlomo Roach MD otolaryngology Head and neck surgery services at [address] FHx: No family history of skin cancer SHx: Lives in [place], [place] Meds: Current Outpatient Prescriptions: albuterol 90 mcg/actuation inhalation HFA aerosol i nhaler, Inhale by mouth., Disp: , Rfl: amLODIPine 5 mg oral tablet, Take 7.5 mg by mouth once daily. Indications: hypertension, Di sp: , Rfl: 3 AMOXICILLIN ORAL, Take by mouth., Disp: , Rfl: bacitracin 500 unit/gram topical ointment, Apply to [...] Transplant Rejection, Disp: 120 capsule, Rfl: 3 oxyCODONE (immediate release) 5 mg oral tablet, Take 1 tablet by mouth every six hours as n eeded for severe pain., Disp: 20 tablet, Rfl: 0 sirolimus 1 mg oral tablet, Take 3 tablets by mouth once daily in the morning. Indications: s/p liver transplant, Disp: 270 tablet, Rfl: 3 All: Allergies Allergen Reactions Morphine Nausea Review of Systems: Other than stated in the HPI and PMHx, the patient denied any other skin or systemic compla ints. PHYSICAL EXAMINATION: GEN-Well appearing, pleasant, no apparent distress. Alert and oriented x 3. Normal mood and affect. Skin-An upper body skin exam was performed including examination of the scalp, face, ears, lips, eyelids, neck, chest, abdomen, back, bilateral arms, hands, and were examined. Pt bill es any new, changing, or symptomatic lesions on his legs/feet. Findings were notable for the following: -- Multiple somewhat ill-defined pink nodules and plaques w/ yellow hyperkeratotic scale on L+R cheeks, L+R sides of neck, chest, and L dorsal forearm -- Multiple ill-defined pink gritty papules scattered on face, neck, b/l dorsal forearms, a nd dorsal hands -- Absent R ear s/p auriculectomy 2005 LABS: Lab Results Component Value Date WBC 5.2 12/24/2017 HB 16.1 12/24/2017 HCT 45.7 12/24/2017 PLT 160 12/24/2017 MCV 86.3 11/17/2017 RDW 42.6 11/17/2017 Lab Results Component Value Date NA 135 12/24/2017 K 3.2 12/24/2017 CL 96 12/24/2017 BICARB 29 12/24/2017 BUN 10 12/24/2017 CR 1.19 12/24/2017 GLU 87 12/24/2017 CA 9.1 12/24/2017 AST 59 12/24/2017 ALT 53 12/24/2017 AP 103 12/24/2017 TBILI 0.8 12/24/2017 TP 7.7 12/24/2017 ALB 4.4 12/24/2017 Lipid set 08/2016- TGs 176 (H), but otherwise WNL ASSESSMENT & PLAN: 1. Multiple clinically apparent SCCs on bilateral cheeks, neck, chest, and forearms. He patel s avoided skin biopsies/treatment over the past several years due to surgical/needle anxiety . Discussed w/ pt that since lesions are clinically consistent w/ SCC, we do not have to per form biopsies today and can proceed with scheduling for Mohs surgery (to avoid needle sticks today). He will require valium during Mohs surgery. We also discussed the option of startin g chemoprophylaxis with acitretin and nicotinamide, which pt is amenable to. Last LFTs from 12/2017 were WNL. Last lipid panel 08/2016- slightly elevated TGs (176), but otherwise WNL. -- Photographed today -- Will schedule for Mohs. OK to schedule two surgeries at a time. Will start with two SCCs on neck, as these are the most symptomatic -- Discussed the RBA of acitretin (soriatane). Potential adverse effects include dry eyes/l ips, peeling of the palms and soles, problems with night vision, elevation of lipids/LFTs, h eadaches, pseudotumor cerebri, muscles aches, joint aches, and hair loss. It can also cause photosensitivity. We addressed the need for regular bloodwork monitoring while on this medic ation. Baseline labs include a test if appropriate, CBC, CMP and fasting lipids. T hese should be repeated monthly for 3-6 months, then every 3 months. Pt is amenable to this, but will discuss with his transplant physician, Dr. Dayron Donato MD, prior to starting -- Start nicotinamide 500mg BID 2. Chronic pain, particularly involving R face and neck. Suspect this will somewhat improv e with removal of symptomatic SCCs w/ Mohs over the next several months. However, per chart review, he has suffered from chronic pain secondary to the extensive procedure he underwent in 2005 for treatment of a recurrent, deeply invasive SCC involving his R ear -- Referral placed to pain management 3. History of multiple NMSCs, including invasive SCC involving R ear s/p radiation, auricul ectomy and removal of external auditory canal/ middle ear/ inner ear 09/2005. SNLB was negati ve at that time. Last MRI face 01/2016 w/ no evidence of recurrence. 4. Skin cancer prevention and patient education: -discussed with patient that the immunosuppressive medications they are on for their transp lant put them at increased risk for developing skin cancer. -sun avoidance and daily use of sunscreen (SPF 30 or higher) and sun-protective clothing is recommended. -hand-outs were provided on skin cancer Follow-up: Based on the patient's history of sun exposure, level of immunosuppression and skin cancer history, we recommend they be seen every 3-4 months for skin exams. MIGUEL VERAS MD Department of Dermatology [facility] New Patient Transplant Questionnaire: General: Medications: Skin Cancer History: Field Therapy: Jax Khanna M.D. Co-Director, [facility] Trans[facility] Patients Clinical Cadmium Liquor Maker, Dermatology [facility] [email or web address] Ed Hall M.D. Co-Director, [facility] for Transplant Patients [employer] Liquor Maker, Dermatologic Surgery [facility] [email or web address] documented in this encounter Plan of Treatment +--------+---------+ + + + | Date | Type | Specialty | Care Team | Description | +--------+---------+ + + + | 06/17/ | Office | Otolaryngology | Shlomo Roach MD | | | 2019 | Visit | | [address] | | | | | | [address] [place], | | | | | | [place] [address] | | | | | | [phone] | | | | | | | | +--------+---------+ + + + documented as of this encounter Visit Diagnoses + + | Diagnosis | + + | Squamous cell carcinoma - Primary Other malignant neoplasm without specification of | | site | + + | Other chronic pain | + + documented in this encounter
--- OUTSIDE RECORDS SUMMARY | ~2019-05-14 | XMS | Encounter Summary ---
Demographics + + + | Address | [address] | | | [place] [address] | + + + | Home Phone [...] Team Providers + +------+ + | Care Student Worker Name | Role | Phone | + +------+ + | No Pcp Per Patient | PCP | Unavailable | + +------+ + Encounter Details +--------+ + + + + | Date | Type | Department | Care Team | Description | +--------+ + + + + | 02/06/ | Office | | Note, Outpatient | Progress Note | | 2006 | Visit-Trans | | Clinic | | [...] as of this encounter Progress Notes Interface, Bleach Boiler Filler In - 02/18/2006 2:09 AM PDT [id number] CHITRA ANN [id number] Clinic Date: 02/06/2006 Clinic: Subjective: Simeon was seen today regarding his visual langford. He has evidence that his ectropion is bothering him. His lower leg continues to bother him with drainage, and he requires that to be elevated. He also is having some complaints with ptosis because of the upper eyebrow, and that continues to be quite a problem for him. Assessment and Plan: I went over his visual langford and his findings. I think a tarsal strip procedure, midface lift, and a browlift would be quite efficacious. I think because of the weight at the lateral cheek and the rectus flaps sits in there, that is reconstructed, that he would benefit from having that debulked, and we would do that at the same time. He also complained of some pain in the right lower inguinal area. I really did not feel any gaps or any hernias and was unable to get a surgeon at this time. Since it has been bothering him for the last few weeks and is not of an acute nature, I think it is safe to watch that, and I will have it assessed by my Surgery colleagues when he returns for his repair. I spent 20 minutes discussing with him all of his options, etc. I will see him then. Shlomo Roach MD, FACS, FRCS (C) W / [id number] / [id number] / [id number] / [id number] Electronically signed by Shlomo Roach 02-17-2006 02:07:04 PM documented i n this encounter Plan of Treatment +--------+---------+ + + + | Date | Type | Specialty | Care Team | Description | +--------+---------+ + + + | 06/17/ | Office | Otolaryngology | Shlomo Roach MD | | | 2019 | Visit | | [address] | | | | | | [place], | | | | | | [place] [address] | | | | | | [phone] | | | | | | | | +--------+---------+ + + + documented as of this encounter Visit Diagnoses Not on filedocumented in this encounter"
--- OUTSIDE RECORDS SUMMARY | ~2019-05-14 | XMS | Encounter Summary ---
Demographics + + + | Address | [address] | | | [place] [address] | + + + | Home Phone [...] + + + | Author | [facility] | + + + | Organization | [facility] [employer] [facility] | + + + | [...] Team Providers + +------+ + | Care Statistician Applied Name | Role | Phone | + +------+ + | Ritesh England PA-C | PCP | | + +------+ + Encounter Details +--------+ + + + + | Date | Type | Department | Care Team | Description | +--------+ + + + + | 05/04/ | Pharmacy | Outpatient Retail | | | | 2017 | Visit | Clinic Pharmacy | | | | | | [address] | | | | | | [place], | | | | | | [place] [address] | | | +--------+ + + + [...] | | | | | [place], | | | | | | [place] [address] | | | | | | [phone] | | | | | | | | +--------+---------+ + + + documented as of this encounter Visit Diagnoses Not on filedocumented in this encounter"
--- OUTSIDE RECORDS SUMMARY | ~2019-05-14 | XMS | Encounter Summary ---
Demographics + + + | Address | [address] | | | [place] [address] | + + + | Home Phone [...] + | Author | [facility] | + + + | Organization | [facility] [employer] [facility] | + + + [...] Providers + +------+ + | Care Cloth Finishing Range Tender Name | Role | Phone | + +------+ + | Ritesh England PA-C | PCP | | + +------+ + Encounter Details +--------+ + + + + | Date | Type | Department | Care Team | Description | +--------+ + + + + | 01/14/ | Procedure | 6A Intra Op [facility] | | | | 2018 | Pass | [facility] | | | | | | Admitting Desk | | | | | | Located on the 9th | | | | | | floor [address] [facility] | | | | | | [address] | | | | | | [place], [place] | | | | | | [address] | | | +--------+ + + + [...] | | 2019 | Visit | | [address] | | | | | | [place], | | | | | | [place] [address] | | | | | | [phone] | | | | | | | | +--------+---------+ + + + documented as of this encounter Visit Diagnoses Not on filedocumented in this encounter"
--- OUTSIDE RECORDS SUMMARY | ~2019-05-14 | XMS | Encounter Summary ---
Demographics + + + | Address | [address] | | | [place] [address] | + + + | Home Phone [...] + | Author | [facility] [facility] | + + + | Organization | [facility] [facility] | + + [...] Team Providers + +------+ + | Care Pantograph Watcher Name | Role | Phone | + +------+ + | Ritesh England PA-C | PCP | | + +------+ + Encounter Details +--------+ + + + + | Date | Type | Department | Care Team | Description | +--------+ + + + + | 09/08/ | Pharmacy | Outpatient Retail | | | | 2019 | Visit | Clinic Pharmacy | | | | | | [address] | | | | | | [place], | | | | | | [place] [address] | | | +--------+ + + + [...] | | | | | [place], | | | | | | [place] [address] | | | | | | [phone] | | | | | | | | +--------+---------+ + + + documented as of this encounter Visit Diagnoses Not on filedocumented in this encounter"
--- OUTSIDE RECORDS SUMMARY | ~2019-05-14 | XMS | Encounter Summary ---
Demographics + + + | Address | [address] | | | [place] [address] | + + + | Home Phone | | + + + | Preferred Language | Unknown | + + + | Marital Status | Single | + + + | Evangelical Affiliation | [id number] | + + + | Race | Unknown | + + + | Ethnic Group | Unknown | + + + Author + + + | Author | [facility] | | | and [place] | + + + | Organization | [facility] | | | and [place] | + + + | Address | Unknown | + + + | Phone | Unavailable | + + + Support + + + + + | Name | Relationship | Address | Phone | + + + + + | Brenda Jones | ECON | [place] | | | | | [phone] | | + + + + + | Katarzyna Luke | ECON | , [place] | | + + + + + | chele townsend | ECON | Unknown | | + + + + + Care Team Providers + +------+ + | Care Fruit Pitter Name | Role | Phone | + +------+ + | Ritesh England PA-C | PCP | | + +------+ + Reason for Visit + + + | Reason | Comments | + + + | Follow-up | | + + + | Congestive Heart | | | Failure | | + + + | Palpitations | | + + + | Cardiomyopathy | | + + + Encounter Details +--------+---------+ + + + | Date | Type | Department | Care Team | Description | +--------+---------+ + + + | 03/10/ | Office | [facility] | Nell, | Acute congestive | | 2019 | Visit | CARDIOLOGY [address] | BELEM Perkins [address] | heart failure, | | | | [place], | [place], | unspecified heart | | | | [place] [address] | [place] [address] | failure type (HCC) | | | | [phone] | [phone] | (Primary Dx); | | | | | | Essential | | | | | | hypertension; | | | | | | Pericardial | | | | | | effusion; Dilated | | | | | | cardiomyopathy | | | | | | (HCC); Palpitations | +--------+---------+ + + + Social History [...] + + + | Blood Pressure | 172/92 | 03/10/2019 1148 PDT | + + + + | Pulse | 72 | 03/10/2019 1148 PDT | + + + + | Temperature | - | - | + + + + | Respiratory Rate | 16 | 03/10/20191147 PDT | + + + + | Oxygen Saturation | - | - | + + + + | Inhaled Oxygen | - | - | | Concentration | | | + + + + | Weight | 74.4 kg (164 lb 0.4 | 03/10/20191147 PDT | | | oz) | | + + + + | Height | 172.7 cm (5' 8") | 03/10/20191147 PDT | + + + + | Body Mass Index | 24.94 | 03/10/20191147 PDT | + + + + documented [...] of this encounter Patient Instructions Patient Instructions Nancy Gonzalez, Car Cleaning Supervisor - 03/10/2019 12:45 PDT1. Increase y our amlodipine to 5 mg twice daily 2. Check blood pressure and pulse twice daily for two weeks and return the log to our offic e. 3. He will follow up in 3 months, or sooner with concerns. documented in this encounter Progress Notes Maddie Camejo ARNP - 03/10/2019 1245 PDTFormatting of this note might be different fr om the original. PATIENT NAME: Simeon Michaels Jr. : 1960: AGE: 59 y.o. PRIMARY CARE: Ritesh England PA-C OUTPATIENT FOLLOW UP VISIT Date of Service: 03/10/2019 HISTORY OF PRESENT ILLNESS: Simeon Michaels Jr. is a 59 y.o. male with a history of Liver transplant and Hep C and c ardiomyopathy, hypertensive and CHF. He is being seen today for follow up with test results . He was last seen 12/08/2018 at which time he will increase Metoprolol Succinate 100 mg twice daily by mouth for palpitations and hypertension. Check blood pressure and pulse twice daily for two weeks and return the log to our office. Schedule a Pharmacological stress test for hypertension and chest pain and evaluate heart failure. Schedule echocardiogram for hyperten frida and chest pain and cardiomyopathy. He will follow up in 2 months for office visit, or sooner with concerns. He will have echocardiogram done prior to visit to follow up his hype rtension and chest pain. Since that time, he had a echocardiogram and a stress test done on 02/22/2019. He has increa sed metoprolol succinate to 100 mg twice daily to help with his palpations. He has had a good energy level most days but some days he feels tired. He tries to stay ac tive and has been busy with prepping for the [employer] round up. He enjoys riding horses in his spare time. He states that he doesn't have chest pain but does get a "stinging" pain t hat starts from the stomach and travels up to his chest and upper back He states that his shortness of breath has worsened with exertion He has dizziness with exertion on occassion s, he states that yesterday was the worse and it continues through today. He has Sometimes but not often noted palpitations when he is laying down trying to sleep. He has had this fo r awhile He has noticed mild swelling at ankles by the end of the day that is resolved in the morning, which has been stable for him. He is able to sleep laying down at night without any symptoms of shortness of breath. He does not have sleep apnea MEDICAL, SURGICAL, AND PERSONAL HISTORY Past Medical, Surgical, Family, and Social History are reviewed in EPIC. CURRENT PROBLEMS Patient Active Problem List Diagnosis Liver replaced by transplant 2011 Essential hypertension Primary malignant neoplasm of liver Pericardial effusion Dyspnea on exertion Skin cancer Kidney stones Squamous cell carcinoma of ear Acute congestive heart failure, unspecified congestive heart failure type ANAID (acute kidney injury) Elevated troponin Bilateral pleural effusion Thrombocytopenia Tobacco user Dilated cardiomyopathy Palpitations CURRENT MEDICATIONS Current Outpatient Medications Medication Sig Dispense Refill albuterol 90 mcg/puff inhaler Inhale 2 puffs into the lungs every 6 hours as needed for Wheezing. 1 Inhaler 0 amLODIPine (NORVASC) 5 mg tablet Take 1 tablet by mouth Daily. 30 tablet 0 furosemide (LASIX) 20 mg tablet Take 0.5 tablets by mouth Three times a week. 30 tablet 0 metoprolol succinate (TOPROL-XL) 100 mg ER tablet Take 1 tablet by mouth 2 times daily. 60 tablet 5 mycophenolate (CELLCEPT) 250 mg capsule Take 500 mg by mouth 2 times daily. sirolimus (RAPAMUNE) 1 mg tablet Take 2 mg by mouth every morning. No current facility-administered medications for this visit. ALLERGIES Allergies Allergen Reactions Acetaminophen Other (See Comments) Hx. Of Liver transplant. Aspirin Other (See Comments) Interacts with "liver medications" Ibuprofen Told not to take due to liver transplant Morphine Nausea Only Mild nausea ROS Review of Systems Constitutional: Positive for malaise/fatigue. Respiratory: Positive for shortness of breath (worse lately). Cardiovascular: Positive for chest pain and palpitations. Negative for leg swelling. Neurological: Positive for dizziness. Negative for weakness. Lightheadedness - No Endo/Heme/Allergies: Does not bruise/bleed easily. OBJECTIVE: PHYSICAL EXAM BP (!) 172/92 | Pulse 72 | Resp 16 | Ht 1.727 m (5' 8") | Wt 74.4 kg (164 lb 0.4 oz) | BMI 24.94 kg/m Physical Exam Constitutional: He is oriented to person, place, and time. He appears well-developed and we ll-nourished. Adult male arrives alone HENT: Head: Normocephalic. Eyes: No scleral icterus. Neck: Normal carotid pulses and no JVD (No JVD) present. Carotid bruit is not present. Cardiovascular: Normal rate, regular rhythm, S1 normal, S2 normal, intact distal pulses and normal pulses. PMI is not displaced. Exam reveals no gallop and no midsystolic click. Murmur heard. Systolic murmur is present with a grade of 2/6. Pulses: Carotid pulses are 2+ on the right side, and 2+ on the left side. Radial pulses are 2+ on the right side, and 2+ on the left side. Posterior tibial pulses are 2+ on the right side, and 2+ on the left side. Pulmonary/Chest: Effort normal. No accessory muscle usage. No respiratory distress. He has decreased breath sounds in the right lower field and the left lower field. He has no wheezes . He has no rhonchi. He has no rales. Abdominal: Soft. Normal aorta and bowel sounds are normal. He exhibits mass (patient states does are hernias). He exhibits no abdominal bruit. There is no hepatosplenomegaly. There is no tenderness. Musculoskeletal: Normal range of motion. He exhibits no edema (there is mild edema in lower extremities on the left ). Neurological: He is alert and oriented to person, place, and time. Gait normal. Skin: Skin is warm and dry. Laceration and lesion noted. There is erythema. No cyanosis. Na ils show no clubbing. Psychiatric: He has a normal mood and affect. His speech is normal and behavior is normal. Judgment and thought content normal. His mood appears not anxious. Cognition and memory are normal. He does not exhibit a depressed mood. Vitals reviewed. ECG: I personally independently reviewed ECG tracing during this visit (interpreted and kevin led by another provider): Results for orders placed or performed in visit on 12/08/18 ECG 12 lead Result Value Ref Range INTERPRETATION TEXT Normal sinus rhythm Nonspecific ST abnormality Prolonged QT Abnormal ECG When compared with ECG of 22-JUL-2018 15:45, premature ventricular complexes are no longer present premature atrial complexes are no longer present Inverted T waves have replaced nonspecific T wave abnormality in Inferior leads Confirmed by WILDER DWYER MD ([id number]) on 12/09/2018 3:57:53 PM LAB RESULTS reviewed during visit today primarily from [facility]: LIPID Lab Results Component Value Date CHOL 156 08/24/2016 TRIG 176 (H) 08/24/2016 HDL 29 08/24/2016 LDL 92 08/24/2016 CHOLHDL 5.4 08/24/2016 CHEMISTRY Lab Results Component Value Date GLU 108 08/24/2018 GLUEX 123 (A) 09/01/2016 NA 136 08/24/2018 NAEX 140 09/01/2016 K 3.9 08/24/2018 KEX 4.3 09/01/2016 CL 98 08/24/2018 CLEX 100 09/01/2016 CO2 27 08/24/2018 CALCIUM 9.0 08/24/2018 ALKPHOS 121 (H) 08/24/2018 AST 55 (H) 08/24/2018 ALT 56 (H) 08/24/2018 BILITOT 0.6 08/24/2018 CREA 1.61 (H) 08/24/2018 BUN 30 (H) 08/24/2018 EGFREX 52 (A) 09/01/2016 CREEX 1.39 (A) 09/01/2016 HEMATOLOGY Lab Results Component Value Date WBC 7.0 08/24/2018 HGB 14.6 08/24/2018 HCT 42.1 08/24/2018 PLT 183 08/24/2018 Lab Results Component Value Date BNP 1,630 (H) 08/26/2016 RESULTS- I reviewed reports from [facility]: Echocardiogram on 02/22/19 shows normal left ventricular size with a mild to moderate concen tric left ventricular hypertrophy, left ventricular systolic function is preserved, LVEF is 60 to 65%, grade 1 left ventricular diastolic dysfunction, mildly thickened and calcified tr ileaflet aortic valve with adequate opening, there is aortic valve sclerosis without signifi cant aortic valve stenosis, there is a mild aortic valve insufficiency, mildly thickened and calcified mitral valve suggesting myxomatous change, mitral valve opens adequately, mild tr icuspid valve regurgitation, normal right-sided pressure, normal IVC with a normal respirato ry collapse, mild aortic root dilatation measuring 4.0 cm in diameter, when compared echocar diography on 08/22/2016, left ventricular cystic function is significantly improved and now n ormalized, by Wilder Dwyer MD. Stress test on 02/22/19 shows Persantine EKG is negative, normal Persantine sestamibi myocar dial perfusion imaging study, normal left ventricular size, wall thickness and motion, prese rved left ventricular systolic function, LVEF by gated SPECT is 55%, by Wilder Dwyer MD . Above data and testing is reviewed this visit; testing below is historical data unless othe rwise specified. ASSESSMENT: 1. Non ischemic cardiomyopathy, compensated CHF A. Echocardiogram 08/23/16, shows normal left ventricular size with moderate co ncentric left ventricular hypertrophy, there is a moderate global hypokinesis of the left ve ntricle, overall, left ventricular significant is moderately decreased, LVEF is 35-40%, mild ly thickened and calcified trileaflet aortic valve with adequate opening, there is a mild ao rtic valve insufficiency, mildly thickened and calcified mitral valve with a mild mitral rebecca ve regurgitation, mild mitral annular calcification, small circumferential pericardial effus ion without cardiac tamponade, normal right-sided pressure, normal IVC with normal respirato ry collapse. B. Stress Test 08/25/16, shows persantineEKG is abnormal at baseline without diagnostic changes post stress, low risk persantinesestamibimyocardial perfusion study f or coronary ischemia, notable for a small area of reduced uptake anteriorly as detailed abov e, suggestive of possible attenuation artifact versus a small true defect, with reduced LV s ystolic function and LV enlargement, LVEF by gated SPECT is 35%. C. Echocardiogram 03/03/18: The left ventricular cavity size is normal. There is mild concentric left ventricular hypertrophy.Right ventricular size, thickness and functi on arenormal.Aortic sclerosis. There are no prior exams available for comparison.Repor t electronically signed by: [id number] Andreas Denny MD (03/03/2018, 3:36:52 PM) Fellow(s) part icipating in diagnosis: Thien Rivera Chest X-ray 03/04/2018: The cardiomediastinal contours are normal. There is no focal consolidation. There is no pleural effusion or pneumothorax. Irregularity at the late ral aspect of the right ninth rib likely represents healed fracture deformity. No acute osse ous abnormality is identified. Surgical clips projecting at the right neck soft tissues are incidentally noted. Final signature: Francesca Joiner MD 03/04/2018 8:42 AM Preliminary: Shamar Ambriz MD E. Stress test on 02/22/19 shows Persantine EKG is negative, normal Persantine s estamibi myocardial perfusion imaging study, normal left ventricular size, wall thickness an d motion, preserved left ventricular systolic function, LVEF by gated SPECT is 55%, by Aida Dwyer MD. F. Echocardiogram on 02/22/19 shows normal left ventricular size with a mild to moderate co ncentric left ventricular hypertrophy, left ventricular systolic function is preserved, LVEF is 60 to 65%, grade 1 left ventricular diastolic dysfunction, mildly thickened and calcifie d trileaflet aortic valve with adequate opening, there is aortic valve sclerosis without sig nificant aortic valve stenosis, there is a mild aortic valve insufficiency, mildly thickened and calcified mitral valve suggesting myxomatous change, mitral valve opens adequately, mil d tricuspid valve regurgitation, normal right-sided pressure, normal IVC with a normal respi ratory collapse, mild aortic root dilatation measuring 4.0 cm in diameter, when compared ech ocardiography on 08/22/2016, left ventricular cystic function is significantly improved and n ow normalized, by Wilder Dwyer MD. G. Today, 03/10/2019, he is asymptomatic for the most part. His angina and dyspnea has not c hange the past couple months, He has some good days and bad days energy chaney. He uses loop diuretic daily. He is in class II- Symptoms with moderate exertion of the [place] [facility] sociation functional class. Heart failure stage C-diagnosed heart failure with symptoms. Th ere are no signs or symptoms of overt congestive heart failure, and his physical exam shows no significant fluid retention. Reviewed his echocardiogram that shows EF has improved to 60-65% and his stress test was n ormal. He will benefit from increasing his amlodipine 5 mg twice daily. 2. Chest pain A.Today, 03/10/2019, He states that he doesn't have typical chest pain only occas ional discomfort. 3. Hypertension A. Today, 03/10/2019, his blood pressure is elevated. He will increase his amlodi pine to 5 mg twice daily and will take another blood pressure. His blood pressure from home has been elevated. 4. Palpitations A. Cardia Event Monitor 09/11/18-10/10/18: Very short duration of use (8 hours), b aseline sinus rhythm, One symptomatic event showed sinus rhythm. Signed by KIM Martin. Today, 03/10/2019, he has continues noticing palpitations at rest . He starte d metoprolol succinate 100 mg twice daily. PLAN: 1. He will increase his amlodipine to 5 mg twice daily by mouth 2. Check blood pressure and pulse twice daily for two weeks and return the log to our offic e. 3. He will follow up in 3 months for office visit, or sooner with concerns. Nancy Valencia, Car Cleaning Supervisor am acting as a scribe on behalf of, and in the presenc e of BELEM Jacobsen. - Nancy Gonzalez, Car Cleaning Supervisor 03/10/2019 12:17 Maddie Valencia ARNP, personally performed the services described in this documentati on, as scribed in my presence and it is both accurate and complete. -BELEM Jacobsen 03/10/2019 Portions of this chart may have been created with [employer] voice recognition software. Occasi onal wrong-word or sound-alike substitutions may have occurred due to the inherent galdamez itations of voice recognition software. Please read the chart carefully and recognize, using context, where these substitutions have occurred. documented in this encounter Plan of Treatment +--------+---------+ + + + | Date | Type | Specialty | Care Team | Description | +--------+---------+ + + + | 06/01/ | Office | Cardiology | Nell, | | | 2018 | Visit | | BELEM [address] | | | | | | [place], | | | | | | [place] [address] | | | | | | [phone] | | | | | | | | +--------+---------+ + + + documented as of this encounter Visit Diagnoses + + | Diagnosis | + + | Acute congestive heart failure, unspecified heart failure type (HCC) - Primary | + + | Essential hypertension Unspecified essential hypertension | + + | Pericardial effusion Unspecified disease of pericardium | + + | Dilated cardiomyopathy (HCC) Other primary cardiomyopathies | + + | Palpitations | + + documented in this encounter
--- OUTSIDE RECORDS SUMMARY | ~2019-05-14 | XMS | Encounter Summary ---
Demographics + + + | Address | [address] | | | [place] [address] | + + + | Home Phone [...] + + | Author | [facility] [employer] [facility] | + + + | Organization | [facility] [employer] [facility] | + + [...] Team Providers + +------+ + | Care General Accountant Name | Role | Phone | + +------+ + PCP | Unavailable | + +------+ + Reason for Referral (Routine) +--------+--------+ + + + + | Status | Reason | Specialty | Diagnoses / | Referred By | Referred To | | | | | Procedures | Contact | Contact | +--------+--------+ + + + + | Closed | | | Diagnoses | David | | | | | | Malignant | MD Leon | | | | | | neoplasm of | [address] | | | | | | shani ([facility]) | [address] | | | | | | Procedures | Rd | | | | | | HOSPITAL | [place], [place] | | | | | | ADMIT ORDERS | [address] | | | | | | | Phone: | | | | | | | [phone] | | | | | | | Fax: | | | | | | | [phone] | | +--------+--------+ + + + + (Routine) +--------+--------+ + + + + | Status | Reason | Specialty | Diagnoses / | Referred By | Referred To | | | | | Procedures | Contact | Contact | +--------+--------+ + + + + | Closed | | | Diagnoses | Hernandez, | | | | | | Malignant | MD Leon | | | | | | neoplasm of | [address] | | | | | | shani ([facility]) | [address] | | | | | | Procedures | Rd | | | | | | CONSULT TO | [place], [place] | | | | | | PAT | [id number] | | | | | | | Phone: | | | | | | | [phone] | | | | | | | Fax: | | | | | | | [phone] | | +--------+--------+ + + + + Reason for Visit + + + | Reason | Comments | + + + | History and physical | preop/cheek scc | | examination | | + + + Encounter Details +--------+---------+ + + + | Date | Type | Department | Care Team | Description | +--------+---------+ + + + | 09/17/ | Office | Otolaryngology | Leon Hernandez, | MALIGNANT NEOPLASM | | 2005 | Visit | Head and Neck | [address] | OF CHEEK (HCC) | | | | Surgery Services at | [facility] | (Primary Dx) | | | | [facility] [address] | [place], [place] | | | | | [address] | [address] | | | | | Mailcode: [id number] | [phone] | | | | | [facility] | | | | | | [place], [place] | | | | | | [address] | | | | | | [phone] | | | +--------+---------+ + + + [...] + + + | Blood Pressure | 102/68 | 09/17/2005 2:39 PM | | | [...] + + + + | Weight | 77.1 kg (170 lb) | 09/17/2005 2:39 PM | | | | | PST | | + + + + + | Height | 172.7 cm (5' 8") | 09/17/2005 2:39 PM | | | | | PST | | + + + + + | Body Mass Index | 25.85 | 09/17/2005 2:39 PM | | | | | PST | | + + + + + documented in this encounter Progress Leon Preciado - 09/17/2005 8:53 AM PSTFormatting of this note might be different from khai jacobo. 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 MEDICATIONS: Current outpatient prescriptions VICODIN 5 MG-500 MG TAB take 1 tablet by oral route every 4-6 hours as needed for pain Disp : 100 Rfl: 0 VICODIN 5 MG-500 MG TAB 1-2 tablets by mouth every 4-6 hours as needed for pain Disp: 40 Rf l: 0 No Known Allergies. FAMILY HISTORY: No family history on file REVIEW OF SYSTEMS: neg PHYSICAL EXAM: VITALS: There were no vitals taken for this visit. HEENT: See Notes: 3 cm ulcerative lesion in right preauricular area, facial nerve normal NECK: Normal CHEST/LUNGS: Normal HEART: Normal ABDOMEN: Normal BACK: Normal EXTREMITIES: Normal NEUROLOGICAL: Normal G.U.: Normal PROVISIONAL DIAGNOSIS: right facial scc PLANNED COURSE OF ACTION: Simeon Michaels is a 45 y.o. male Here for preop visit for a right temporal bone resection, right parotidectomy with neck dis section, left radial forearm FF. I had a complete discussion of the surgery its alternatives and risks. Including but not limited to bleeding, infection, the planned operative incision , the need for drains postoperatively, anesthesia of the skin of the neck, risk of injury to various cranial nerves, and impact of the surgery on speech and swallowing. . He seemed to understand same and wishes to proceed. A complete physical exam was performed, consent form was signed. 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
--- OUTSIDE RECORDS SUMMARY | ~2019-05-14 | XMS | Encounter Summary ---
Demographics + + + | Address | [address] | | | [place] [address] | + + + | Home Phone [...] + + | Author | [facility] | + + + | Organization | [facility] | + + + | [...] Team Providers + +------+ + | Care Gaming Host Name | Role | Phone | + +------+ + | Sylvester Scherer DO | PCP | | + +------+ + Reason for Referral PROC - Dept/Practice Procedure (Routine) +--------+--------+ + + + + | Status | Reason | Specialty | Diagnoses / | Referred By | Referred To | | | | | Procedures | Contact | Contact | +--------+--------+ + + + + | Closed | | Gastroenterol | Diagnoses | Barrett [facility] | | | | ogy | Hep C w/o | Valente L, | [address] [address] | | | | | coma, | MD,MPH [address] | | | | | chronic | N | Mailcode: | | | | | (HCC) | [address] | [facility] | | | | | Procedures | Ave | for Health | | | | | FIBROSCAN | [place], [place] | and Healing, | | | | | DE LIVER | [address] | [address] | | | | | ELASTOGRAPHY | Phone: | [place], [place] | | | | | , MECH | [phone] | [address] | | | | | INDUCED | Fax: | Phone: | | | | | [address] [place] | [phone] | [phone] | | | | | W O IMAG | | Fax: | | | | | | | [phone] | +--------+--------+ + + + + Reason for Visit Office Visit - E/M Services (Routine) +--------+--------+ + + + + | Status | Reason | Specialty | Diagnoses / | Referred By | Referred To | | | | | Procedures | Contact | Contact | +--------+--------+ + + + + | Closed | | Liver | Diagnoses | [place], | [facility] Trans | | | | Transplant | Liver | DO Sylvester | Coord Liver | | | | | transplant | [facility] | [address] [facility] | | | | | status | Hospital | [facility] | | | | | Procedures | Internal | Rd [place], | | | | | [place] | Medicin | [place] | | | | | OFFICE/OUTPT | [address] | [address] | | | | | | [address] | Phone: | | | | | VISIT,EST,LE | [place], | [phone] | | | | | VL [place] | [place] [address] | Fax: | | | | | | Phone: | [phone] | | | | | | [phone] | | | | | | | Fax: | | | | | | | [phone] | | +--------+--------+ + + + + Encounter Details +--------+---------+ + + + | Date | Type | Department | Care Team | Description | +--------+---------+ + + + | 06/26/ | Office | Liver Transplant | Valente Welch | Hep C w/o coma, | | 2014 | Visit | at [facility] [address] | MD Kiel,MPH [address] | chronic (HCC) | | | | [address] | (Primary Dx); | | | | [address] [place], | [place] [address] | Hepatocellular | | | | [place] [address] | [phone] | carcinoma (HCC); | | | | [phone] | | History of liver | | | | | | transplant (HCC) | +--------+---------+ + + + Social History [...] + + + + | Weight | 64.4 kg (142 lb) | 06/26/2015 11:03 AM | | | | | PST | | + + + + + | Height | - | - | | + + + + + | Body Mass Index | 21.59 | 09/17/2005 2:39 PM | | | | | PST | | + + + + + documented in this encounter Progress Notes Valente Welch MD,MPH - 06/25/2015 2:22 PM PSTFormatting of this note might be differ ent from the original. Liver Transplant Initial Clinic Note 06/26/2015 CHIEF COMPLAINT/IDENTIFICATION: Simeon Michaels Jr. is a 55 y.o. male referred by Dr. Andra galvez for post-transplant management. PCP: Sylvester Scherer DO Referring Provider: Sylvester Scherer DO Outside GI: Yoli Pulido, [facility] HISTORY OF PRESENT ILLNESS Simeon Michaels Jr. is a 55 y.o. 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 Evaluation of the HCV genotype and RNA was performed w ith a plan for HCV treatment thereafter. He reportedly saw Jolie Guardado the same day, but the records are unavailable. He then moved from [place] to [place], [place] in November 2014. He has be en feeling well in general, notes some headaches and fatigue. Since moving here in November, he has not had any monitoring of his liver disease/transplanted state. He did not receive HCV treatment. He has previously been vaccinated for hepatitis A and B. He denies fluid accumula tion in feet/ankles, fluid accumulation in abdomen, blood in bowel movements or black tarry bm's and memory or concentration changes. Transplant Problem List: 1. 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 2. Liver transplantation performed 09/09/11 at [facility]. 2.1. Immunosuppression: sirolimus 2 mg daily (trough [...] oxycodone 10 QID 3.4. Pre-diabetes 3.5. SCC 4. Preventive care 4.1. Immunizations: HAV, HBV, influenza, Pneumovax 4.2. Osteoporosis: vitamin D and calcium supplementation, DEXA 4.3. Colon cancer screenin. Psychosocial: Quit tobacco at age 54, previously 2 ppd, now smoking again and also vapes . Quit alcohol in 10/2009 and denies any use since then. No MJ. Moved from [place] to [facility], [place] in 11/2014 [place]. SOCIAL HISTORY Smoking: yes Alcohol consumption: no Intravenous drug use: no Tattoos: yes Blood transfusion prior to 1991: no Intranasal drug use: no Marital status: Single Children: 1 Employment: unemployed FAMILY HISTORY No FHx of liver disease Review of Systems: Gen: No malaise, no fatigue, no chills, no fevers Eyes: No double vision, no yellowness Mouth: No pain on swallowing, no sores, no sticking of food Resp: No shortness of breath, no cough CV: No CP, no palpitations Abd: No constipation, no diarrhea, no black or red stools, no nausea/vomiting. +abd pain Ext: No swelling of legs, no joint pains : No pain on urination or increased frequency of urination Neuro: No new weakness, tingling, or confusion Psych: No depression, no anxiety All other systems otherwise negative MEDICATIONS Sirolimus CellCept Bactrim MgO Diazepam Oxycodone Gabapentin ALLERGIES: No Known Allergies PHYSICAL EXAM VS: Wt 64.411 kg (142 lb) | BMI 21.6 kg/(m^2) GEN: Pleasant male in NAD, comfortable appearing. HEENT: anicteric, PERRL. COR: RRR, -m. PULM: Clear bilaterally. ABD: Soft, mildly tender, nondistended. No HSM. Well healed Chevron incision. EXT: no clubbing or peripheral edema. SKIN: No jaundice or rashes present. NEURO: No asterixis LABS WHITE CELL COUNT (K/cu mm) Date Value 10/24/2014 3.4 10/24/2014 3.4 HEMOGLOBIN (g/dL) Date Value 10/24/2014 14.3 10/24/2014 14.3 HEMATOCRIT (%) Date Value 10/24/2014 43.1 10/24/2014 43.1 PLATELET COUNT (K/cu mm) Date Value 10/24/2014 119 10/24/2014 119 MCV (fL) Date Value 09/24/2005 94.5 RDW (%) Date Value 09/24/2005 12.6 Lab Results Component Value Date NA 140 10/24/2014 NA 140 10/24/2014 K 5.0 10/24/2014 K 5 10/24/2014 CL 102 10/24/2014 CL 102 10/24/2014 BICARB 28 10/24/2014 BICARB 28 10/24/2014 BUN 12 10/24/2014 BUN 12 10/24/2014 CR 1.00 10/24/2014 CR 1 10/24/2014 GLU 87 10/24/2014 GLU 87 10/24/2014 CA 9.1 10/24/2014 CA 9.1 10/24/2014 Lab Results Component Value Date TBILI 0.4 10/24/2014 TBILI 0.4 10/24/2014 AP 66 10/24/2014 AP 66 10/24/2014 TP 6.2 10/24/2014 TP 6.2 10/24/2014 ALB 4.1 10/24/2014 ALB 4.1 10/24/2014 AST 37 10/24/2014 AST 37 10/24/2014 ALT 35 10/24/2014 ALT 35 10/24/2014 IMAGING None ASSESSMENT Mr. Simeon Michaels Jr. is a 55 y.o. male with history of liver transplantation in 2 for HCV and alcohol-related cirrhosis and downstaged HCC, referred for post-transplant and immunosuppressive regimen management. He feels quite well and looks healthy but we do not h ave any recent lab testing to assess his allograft function. Emphasized the importance of 3 month lab testing with trough sirolimus levels indefinitely. He is also overdue for imaging screening for HCC recurrence, and we will arrange this as well. Finally, we discussed HCV tr eatment. He has genotype 3, and based on recent results (ASTRAL study) and no clear urgency for his treatment, it is preferable to wait for future treatment with SOF-velpatasvir which seems to have better efficacy than current treatment regimens. We will also obtain a FibroSc an at follow-up to assess for graft fibrosis. Advised that he would need to demonstrate neema r and continued compliance with our post-transplant monitoring plan prior to consideration o f HCV treatment however. He agreed with this plan. RECOMMENDATIONS: 1. Discontinue Bactrim 2. Recommend influenza vaccination 3. Will arrange multiphase liver CT and non-contrast chest CT scan for post-transplant HCC surveillance 4. Monitor labs every 3 months (post-transplant panel including sirolimus levels) 5. Continue current immunosuppression 6. Return to clinic in 6 months with FibroScan beforehand. Valente Welch M.D., M.P.H. Electrician Chiefbelt buckle maker [facility] Division of Gastroenterology/Hepatology documented in this encounter Plan of Treatment +--------+---------+ + + + | Date | Type | Specialty | Care Team | Description | +--------+---------+ + + + | 06/17/ | Office | Otolaryngology | Shlomo Roach MD | | | 2019 | Visit | | [address] | | | | | | [place], | | | | | | [place] [address] | | | | | | [phone] | | | | | | | | +--------+---------+ + + + + + +--------+ + + | Name | Type | Priori | Associated Diagnoses | Order Schedule | | | | ty | | | + + +--------+ + + | FIBROSCAN | Procedures | Routin | Hep C w/o coma, | Expected: 12/25/2015 | | | | e | chronic (HCC) | | + + +--------+ + + documented as of this encounter Visit Diagnoses + + | Diagnosis | + + | Hep C w/o coma, chronic (HCC) - Primary Chronic hepatitis C without mention of | | hepatic coma | + + | Hepatocellular carcinoma (HCC) Malignant neoplasm of liver, primary | + + | History of liver transplant (HCC) Liver replaced by transplant | + + documented in this encounter"
--- OUTSIDE RECORDS SUMMARY | ~2019-05-14 | XMS | Encounter Summary ---
Demographics + + + | Address | [address] | | | [place] [address] | + + + | Home Phone [...] Author + + + | Author | [facility] | + + + | Organization | [facility] | + + + [...] Team Providers + +------+ + | Care Plastics Heat Welder Name | Role | Phone | + +------+ + | Ritesh England PA-C | PCP | | + +------+ + Reason for Visit + + + | Reason | Comments | + + + | Question | | + + + Encounter Details +--------+ + + + + | Date | Type | Department | Care Team | Description | +--------+ + + + + | 04/20/ | Telephone | Otolaryngology | Shlomo Roach MD | Question | | 2019 | | Head and Neck | [address] | | | | | Surgery Services at | [address] [place], | | | | | [facility] [address] | [place] [address] | | | | | Ave Mailcode: | [phone] | | | | | [facility] | | | | | | and [address], | | | | | | [address] | | | | | | [place], [place] | | | | | | [address] | | | | | | [phone] | | | +--------+ + + + [...] | | | | | [address] [place] | | | | | | [place] [address] | | | | | | [phone] | | | | | | | | +--------+---------+ + + + documented as of this encounter Visit Diagnoses Not on filedocumented in this encounter"
--- OUTSIDE RECORDS SUMMARY | ~2019-05-14 | XMS | Encounter Summary ---
Demographics + + + | Address | [address] | | | [place] [address] | + + + | Home Phone [...] + + | Author | [facility] | + + + | Organization | [facility] | + + [...] Team Providers + +------+ + | Care Casino Manager Name | Role | Phone | [...] Description | +--------+--------+ + + + | 08/29/ | Refill | Transplant | Sabrina Guzman, | Refill Request | | 2016 | | Coordinators [address] | RN [address] | ([place], MMF) | | | | [address] [facility] | [facility] | | | | | [address] [place], [place] | [place], [place] | | | | | [address] | [address] | | | | | [phone] | | | +--------+--------+ + + + [...] | | | | | [address] [place], | | | | | | [place] [address] | | | | | | [phone] | | | | | | | | +--------+---------+ + + + documented as of this encounter Visit Diagnoses Not on filedocumented in this encounter"
[~2019-05-14 22:20] MED LIST changes: +AUGMENTIN 875-1 EACH PO
[2019-05-14] MEDS ORDERED: TACROLIMUS1 MG PO (22:35)
[2019-05-14] MEDS ORDERED: LOSARTAN POTASS25 MG PO (22:35)
--- NOTE | 2019-05-15 17:22 | EKG ---
[facility] [address] [facility] [place] [address] Signed Normal sinus rhythm Possible Left atrial enlargement Nonspecific intraventricular block Abnormal ECG When compared with ECG of 12-JAN-2018 19:02, premature atrial complexes are no longer present Questionable change in QRS duration Confirmed by DANIEL PANTOJA MD ([id number]) on 05/15/2019 5:22:06 PM Electronically Signed By: DANIEL PANTOJA MD 05/15/19 1722 PATIENT NAME: MARISSA BUENROSTRO Electrocardiogram DATE OF : 56 PHYSICIAN: DANIEL PANTOJA MD REPORT #: [id number] REPORT IS CONFIDENTIAL AND NOT TO BE RELEASED WITHOUT AUTHORIZATION
== END 2019-05-15 02:31 | disposition short-term general hospital (02) ==
LOC: ED 22:20
DX: I21.4 Non-ST elevation (NSTEMI) myocardial infarction (principal); Z94.4 Liver transplant status; I11.0 Hypertensive heart disease with heart failure; I50.9 Heart failure, unspecified; F17.200 Nicotine dependence, unspecified, uncomplicated; Z87.442 Personal history of urinary calculi; Z85.828 Personal history of other malignant neoplasm of skin; Z85.05 Personal history of malignant neoplasm of liver; Z88.5 Allergy status to narcotic agent; Z88.6 Allergy status to analgesic agent; Z79.899 Other long term (current) drug therapy
CPT/HCPCS: 71045; 80053; 83735; 83880; 84484; 85025; 85610; 85730; 93005; 93010; 96372; 99285-25; J1650

== ENCOUNTER 2022-07-14 07:53 | Emergency (ER) | payer MEDICARE, OTHER ==
[~2022-07-14] VITALS: Ht 172.7 cm; Wt 69.8 kg
[~2022-07-14 07:53] MED LIST changes: +ADULT LOW DOSE81 MG PO; +AMLODIPINE BESY10 MG; +CLOPIDOGREL75 MG PO; +ISOSORBIDE MONO30 MG PO; +LOSARTAN POTASS25 MG PO; +LOSARTAN POTASS50 MG PO; +METOPROLOL SUCC50 MG PO; +NITROGLYCERIN0.4 MG SL; +TACROLIMUS0.5 MG PO; +TACROLIMUS1 MG PO
--- OUTSIDE RECORDS SUMMARY | 2022-07-14 07:56 | XMS ---
PreManage Notification: MARISSA BUENROSTRO Security Community Associate Events No recent Security Events currently on file CRITERIA MET - Group Notification CARE PROVIDERS ALMAZ GRIFFIN Physician [employer] De[employer] Remover Current PHONE: [phone] QUINCY OLIVEROS Internal Medicine 04/05/2019-Current PHONE: Unknown Sandie has no Care Guidelines for this patient. Care History Medical/Surgical 01/14/2018 [facility] - Patient is currently established with [facility]. If patient is seen in the ED during business hours. Please contact CHWs at [facility] at Ext [phone]. Care Recommendation: This patient has had 5 or more Emergency Department visits in the last 12 months.\T\nbsp; Patient requires education on the scope and purpose of the ED as an acute care provider not a Primary Care Provider and should not be utilized for chronic conditions.\T\nbsp; If patient returns to ED please contact Community Health WorkerPia at [phone]. These are guidelines and the provider should exercise clinical judgment when providing care. E.D. VISIT COUNT (12 MO.) 1 JAMES Barrera TOTAL 1 NOTE: Visits indicate total known visits. ED/UCC VISIT TRACKING (12 MO.) 07/14/2022 07:54 [facility] [place] TYPE: Emergency COMPLAINT: - SOB INPATIENT VISIT TRACKING (12 MO.) 12/18/2021 05:21 [facility] TYPE: Ear, Nose, Throat DIAGNOSES: 02110. Liver transplant status 39236. Squamous cell carcinoma of skin of unspecified parts of face 26805. Unspecified malignant neoplasm of skin of unspecified upper limb, including shoulder 84079. Squamous cell carcinoma of skin of unspecified parts of face 75750. Squamous cell carcinoma of skin of scalp and neck 70713. Squamous cell carcinoma of skin of lip [email or web address]
[2022-07-14] MEDS ORDERED: ONDANSETRON ODT8 MG PO (10:41)
[2022-07-14] MEDS ORDERED: TAMIFLU30 MG PO (10:41)
== END 2022-07-14 12:38 | disposition home or self-care (01) ==
LOC: ED 07:53
DX: J10.1 Influenza due to other identified influenza virus with other respiratory manifestations (principal); I11.0 Hypertensive heart disease with heart failure; I50.9 Heart failure, unspecified; J44.9 Chronic obstructive pulmonary disease, unspecified; I48.91 Unspecified atrial fibrillation; F17.200 Nicotine dependence, unspecified, uncomplicated; Z20.822 Contact with and (suspected) exposure to COVID-19; Z87.442 Personal history of urinary calculi; Z88.6 Allergy status to analgesic agent; Z88.5 Allergy status to narcotic agent; Z79.899 Other long term (current) drug therapy
CPT/HCPCS: 36415; 71045; 80053; 83880; 85025; 87502; 99285-25; A9270; U0003

== ENCOUNTER 2023-04-09 16:18 | Emergency (ER) | payer MEDICARE, OTHER ==
[~2023-04-09] VITALS: Ht 172.7 cm; Wt 66.2 kg
--- OUTSIDE RECORDS SUMMARY | ~2023-04-09 | XMS | Continuity of Care Document ---
Demographics + + + | Address | [address] | | | [place] [address] | + + + | Preferred Language | Unknown | + + + | Marital Status | Never | + + + | Caodaism Affiliation | Unknown | + + + | Race | White | + + + | Ethnic Group | Not or | + + + Author + + + | Author | [facility] | + + + | Organization | [facility] | + + + | Address | [address] | | | [place] [address] | + + + | Phone | | + + + Care Team Providers + + + + | Care [facility] Brusher Machine Name | Role | Phone | + + + + Unavailable | Unavailable | + + + + Unavailable | Unavailable | + + + + Unavailable | Unavailable | + + + + Unavailable | Unavailable | + + + + Allergies and Intolerances + + + + + + | date | description | facility | reaction | severity | + + + + + + | (no date) | Lisinopril | [facility] | (no reaction) | (no severity) | [facility] | | | + + + + + + | (no date) | Aspirin | [facility] | (no reaction) | (no severity) | | [facility] | | | + + + + + + | (no date) | Acetaminophen | [facility] | (no reaction) | (no severity) | | [facility] | | | + + + + + + | (no date) | Mild | [facility] | (no reaction) | (no severity) | | [facility] | | | + + + + + + | (no date) | Lisinopril | [facility] | (no reaction) | (no severity) | | [facility] | | | + + + + + + | (no date) | Acetaminophen | [facility] | (no reaction) | (no severity) | | [facility] | | | + + + + + + | (no date) | Morphine | [facility] | (no reaction) | (no severity) | | [facility] | | | + + + + + + | (no date) | Ibuprofen | [facility] | (no reaction) | (no severity) | | [facility] | | | + + + + + + | (no date) | Aspirin | [facility] | (no reaction) | (no severity) | | [facility] | | | + + + + + + | (no date) | Acetaminophen | [facility] | (no reaction) | (no severity) | | [facility] | | | + + + + + + | (no date) | Tongue | [facility] | (no reaction) | (no severity) | | | swelling | [facility] | | | + + + + + + | (no date) | Nausea alone | [facility] | (no reaction) | (no severity) | | [facility] | | | + + + + + + | (no date) | Ibuprofen | [facility] | (no reaction) | (no severity) | | | [facility] | | | + + + + + + | (no date) | Morphine | [facility] | (no reaction) | (no severity) | | | [facility] | | | + + + + + + | (no date) | Morphine | [facility] | (no reaction) | (no severity) | | | [facility] | | | + + + + + + | (no date) | Lisinopril | [facility] | (no reaction) | (no severity) | | | [facility] | | | + + + + + + | (no date) | lisinopril | [facility] | (no reaction) | (no severity) | + + + + + + | (no date) | morphine | [facility] | (no reaction) | (no severity) | + + + + + + | (no date) | aspirin | [facility] | (no reaction) | (no severity) | + + + + + + | (no date) | acetaminophen | [facility] | (no reaction) | (no severity) | + + + + + + | (no date) | ibuprofen | [facility] | (no reaction) | (no severity) | + + + + + + | (no date) | Aspirin | [facility] | (no reaction) | (no severity) | | [facility] | | | + + + + + + | (no date) | Ibuprofen | [facility] | (no reaction) | (no severity) | | | [facility] | | | + + + + + + Encounters No information. Functional Status No information. Immunizations No information. Medications + + + + | date | description | facility | + + + + | 2022-07-14 00:00 | ONDANSETRON | [facility] | + + + + | 2022-10-27 00:00 | ONDANSETRON | [facility] | + + + + | 2023-03-25 00:00 | ONDANSETRON | [facility] | + + + + | 2015-05-03 00:00 | OXYCODONE HCL | [facility] | + + + + | 2015-05-03 00:00 | OXYCODONE HCL | [facility] | + + + + | 2022-07-14 00:00 | OXYCODONE HCL | [facility] | + + + + | 2022-10-27 00:00 | OXYCODONE HCL | [facility] | + + + + | 2023-03-25 00:00 | OXYCODONE HCL | [facility] | + + + + | 2017-01-17 00:00 | OXYCODONE HCL | [facility] | + + + + | 2017-01-17 00:00 | OXYCODONE HCL | [facility] | + + + + | 2022-07-14 00:00 | AMLODIPINE BESYLATE | [facility] | + + + + | 2022-10-27 00:00 | AMLODIPINE BESYLATE | [facility] | + + + + | 2023-03-25 00:00 | AMLODIPINE BESYLATE | [facility] | + + + + | 2022-07-14 00:00 | DIAZEPAM | [facility] | + + + + | 2022-10-27 00:00 | DIAZEPAM | [facility] | + + + + | 2023-03-25 00:00 | DIAZEPAM | [facility] | + + + + | 2022-07-14 00:00 | NITROGLYCERIN | [facility] | + + + + | 2022-10-27 00:00 | NITROGLYCERIN | [facility] | + + + + | 2023-03-25 00:00 | NITROGLYCERIN | [facility] | + + + + | 2022-07-14 00:00 | TACROLIMUS | [facility] | + + + + | 2022-07-14 00:00 | MAGNESIUM OXIDE | [facility] | + + + + | 2022-10-27 00:00 | MAGNESIUM OXIDE | [facility] | + + + + | 2023-03-25 00:00 | MAGNESIUM OXIDE | [facility] | + + + + | 2022-07-14 00:00 | MYCOPHENOLATE MOFETIL | [facility] | + + + + | 2022-10-27 00:00 | MYCOPHENOLATE MOFETIL | [facility] | + + + + | 2023-03-25 00:00 | MYCOPHENOLATE MOFETIL | [facility] | + + + + | 2019-04-02 00:00 | CIPROFLOXACIN HCL | [facility] | + + + + | 2019-04-02 00:00 | CIPROFLOXACIN HCL | [facility] | + + + + | 2022-07-14 00:00 | AMLODIPINE BESYLATE | [facility] | + + + + | 2022-07-14 00:00 | ASPIRIN | [facility] | + + + + | 2022-10-27 00:00 | ASPIRIN | [facility] | + + + + | 2023-03-25 00:00 | ASPIRIN | [facility] | + + + + | 2017-08-01 00:00 | CEPHALEXIN | [facility] | + + + + | 2017-08-01 00:00 | CEPHALEXIN | [facility] | + + + + | 2022-07-14 00:00 | CLOPIDOGREL BISULFATE | [facility] | + + + + | 2022-10-27 00:00 | FAMOTIDINE | [facility] | + + + + | 2023-03-25 00:00 | FAMOTIDINE | [facility] | + + + + | 2022-07-14 00:00 | FLUOXETINE HCL | [facility] | + + + + | 2022-10-27 00:00 | FLUOXETINE HCL | [facility] | + + + + | 2023-03-25 00:00 | FLUOXETINE HCL | [facility] | + + + + | 2022-07-14 00:00 | FUROSEMIDE | [facility] | + + + + | 2022-10-27 00:00 | FUROSEMIDE | [facility] | + + + + | 2023-03-25 00:00 | FUROSEMIDE | [facility] | + + + + | 2022-07-14 00:00 | GABAPENTIN | [facility] | + + + + | 2022-10-27 00:00 | GABAPENTIN | [facility] | + + + + | 2023-03-25 00:00 | GABAPENTIN | [facility] | + + + + | 2022-07-14 00:00 | ONDANSETRON | [facility] | + + + + | 2022-07-14 00:00 | TACROLIMUS | [facility] | + + + + | 2022-10-27 00:00 | TACROLIMUS | [facility] | + + + + | 2023-03-25 00:00 | TACROLIMUS | [facility] | + + + + | 2022-07-14 00:00 | ISOSORBIDE MONONITRATE | [facility] | + + + + | 2022-07-14 00:00 | SIROLIMUS | [facility] | + + + + | 2022-10-27 00:00 | SIROLIMUS | [facility] | + + + + | 2023-03-25 00:00 | SIROLIMUS | [facility] | + + + + | 2022-07-14 00:00 | SIROLIMUS | [facility] | + + + + | 2022-10-27 00:00 | SIROLIMUS | [facility] | + + + + | 2023-03-25 00:00 | SIROLIMUS | [facility] | + + + + | 2022-07-14 00:00 | MYCOPHENOLATE MOFETIL | [facility] | + + + + | 2022-10-27 00:00 | MYCOPHENOLATE MOFETIL | [facility] | + + + + | 2023-03-25 00:00 | MYCOPHENOLATE MOFETIL | [facility] | + + + + | 2022-07-14 00:00 | OSELTAMIVIR PHOSPHATE | [facility] | + + + + | 2019-04-21 00:00 | AMOXICILLIN/POTASSIUM CLAV | [facility] | | | | | + + + + | 2017-08-30 00:00 | TRAMADOL HCL | [facility] | + + + + | 2017-08-30 00:00 | TRAMADOL HCL | [facility] | + + + + | 2022-07-14 00:00 | TRAMADOL HCL | [facility] | + + + + | 2022-07-14 00:00 | | [facility] | | | SULFAMETHOXAZOLE/TRIMETHOPR | | | | IM DS | | + + + + | 2022-10-27 00:00 | | [facility] | | | SULFAMETHOXAZOLE/TRIMETHOPR | | | | IM DS | | + + + + | 2023-03-25 00:00 | | [facility] | | | SULFAMETHOXAZOLE/TRIMETHOPR | | | | IM DS | | + + + + | 2022-07-14 00:00 | ALBUTEROL SULFATE | [facility] | + + + + | 2022-07-14 00:00 | METOPROLOL SUCCINATE | [facility] | + + + + | 2022-10-27 00:00 | METOPROLOL SUCCINATE | [facility] | + + + + | 2023-03-25 00:00 | METOPROLOL SUCCINATE | [facility] | + + + + | 2022-07-14 00:00 | METOPROLOL SUCCINATE | [facility] | + + + + | 2022-10-27 00:00 | METOPROLOL SUCCINATE | [facility] | + + + + | 2023-03-25 00:00 | METOPROLOL SUCCINATE | [facility] | + + + + | 2020-06-02 00:00 | METOPROLOL SUCCINATE | [facility] | + + + + | 2022-07-14 00:00 | LOSARTAN POTASSIUM | [facility] | + + + + | 2022-10-27 00:00 | LOSARTAN POTASSIUM | [facility] | + + + + | 2023-03-25 00:00 | LOSARTAN POTASSIUM | [facility] | + + + + | 2022-07-14 00:00 | LOSARTAN POTASSIUM | [facility] | + + + + | 2022-10-27 00:00 | LOSARTAN POTASSIUM | [facility] | + + + + | 2023-03-25 00:00 | LOSARTAN POTASSIUM | [facility] | + + + + Problems + + + + | date | description | facility | + + + + | 2015-01-12 00:00 | Abdominal pain | [facility] | + + + + | 2015-01-12 00:00 | Abdominal pain | [facility] | + + + + | 2015-05-03 00:00 | Fracture of distal end of | [facility] | | | left radius | | + + + + | 2015-05-03 00:00 | Fracture of distal end of | [facility] | | | left radius | | + + + + | 2016-08-22 00:00 | Lipoma of face | [facility] | + + + + | 2016-08-22 00:00 | Lipoma of face | [facility] | + + + + | 2016-08-22 00:00 | Pericardial effusion | [facility] | + + + + | 2016-08-22 00:00 | Pericardial effusion | [facility] | + + + + | 2016-08-22 00:00 | Acute on chronic | [facility] | | | congestive heart failure | | + + + + | 2016-08-22 00:00 | Acute on chronic | [facility] | | | congestive heart failure | | + + + + | 2016-08-22 00:00 | Pleural effusion | [facility] | + + + + | 2016-08-22 00:00 | Pleural effusion | [facility] | + + + + | 2017-01-17 00:00 | Contusion of right lower | [facility] | | | extremity | | + + + + | 2017-01-17 00:00 | Contusion of right lower | [facility] | | | extremity | | + + + + | 2017-07-14 00:00 | Pre-syncope | [facility] | + + + + | 2017-07-14 00:00 | Pre-syncope | [facility] | + + + + | 2017-08-01 00:00 | Atrial fibrillation with | [facility] | | | rapid ventricular response | | + + + + | 2017-08-01 00:00 | Atrial fibrillation with | [facility] | | | rapid ventricular response | | + + + + | 2017-08-30 00:00 | Contusion of left foot | [facility] | + + + + | 2017-08-30 00:00 | Contusion of left foot | [facility] | + + + + | 2017-10-26 00:00 | Cellulitis of face | [facility] | + + + + | 2017-10-26 00:00 | Cellulitis of face | [facility] | + + + + | 2018-01-13 00:00 | Fracture of right hip | [facility] | + + + + | 2018-01-13 00:00 | Fracture of right hip | [facility] | + + + + | 2018-01-13 00:00 | Recipient of liver | [facility] | | | transplantation | | + + + + | 2018-01-13 00:00 | Recipient of liver | [facility] | | | transplantation | | + + + + | 2019-05-15 00:00 | Non-ST elevation | [facility] | | | myocardial infarction | | | | (NSTEMI) | | + + + + | 2019-05-15 00:00 | Non-ST elevation | [facility] | | | myocardial infarction | | | | (NSTEMI) | | + + + + | 2020-06-02 00:00 | Paroxysmal | [facility] | | | supraventricular | | | | tachycardia | | + + + + | 2020-06-02 00:00 | Paroxysmal | [facility] | | | supraventricular | | | | tachycardia | | + + + + | 2022-07-14 00:00 | Influenza | [facility] | + + + + | 2022-07-14 00:00 | Influenza | [facility] | + + + + | 2022-10-26 00:00 | Obstruction of esophagus | [facility] | | | due to food impaction | | + + + + | 2022-10-26 00:00 | Obstruction of esophagus | [facility] | | | due to food impaction | | + + + + | 2022-10-26 23:45 | NICOTINE DEPENDENCE, | [facility] | | | UNSPECIFIED, UNCOMPLICATED | | + + + + | 2022-10-26 23:45 | HYPERTENSIVE HEART DISEASE | [facility] | | | WITH HEART FAILURE | | + + + + | 2022-10-26 23:45 | HEART FAILURE, UNSPECIFIED | [facility] | | | | | + + + + | 2022-10-26 23:45 | CHRONIC OBSTRUCTIVE | [facility] | | | PULMONARY DISEASE, | | | | UNSPECIFIED | | + + + + | 2022-10-26 23:45 | UNSPECIFIED CHRONIC | [facility] | | | GASTRITIS WITHOUT BLEEDING | | + + + + | 2022-10-26 23:45 | DIAPHRAGMATIC HERNIA | [facility] | | | WITHOUT OBSTRUCTION OR | | | | GANGRE | | + + + + | 2022-10-26 23:45 | FOOD IN ESOPHAGUS CAUSING | [facility] | | | OTHER INJURY, INITIAL | | | | ENCOUNTER | | + + + + | 2022-10-26 23:45 | EXPOSURE TO OTHER | [facility] | | | SPECIFIED FACTORS, INITIAL | | | | ENCOU | | + + + + | 2022-10-26 23:45 | OTHER JAIL (CURRENT) | [facility] | | | DRUG THERAPY | | + + + + | 2022-10-26 23:45 | ALLERGY STATUS TO NARCOTIC | [facility] | | | AGENT STATUS | | + + + + | 2022-10-26 23:45 | ALLERGY STATUS TO | [facility] | | | ANALGESIC AGENT STATUS | | + + + + | 2022-10-26 23:45 | ALLERGY STATUS TO OTH | [facility] | | | DRUG/MEDS/BIOL SUBST STATUS | | | | | | + + + + | 2023-03-25 14:01 | NICOTINE DEPENDENCE, | [facility] | | | UNSPECIFIED, UNCOMPLICATED | | + + + + | 2023-03-25 14:01 | HYPERTENSIVE HEART DISEASE | [facility] | | | WITH HEART FAILURE | | + + + + | 2023-03-25 14:01 | HEART FAILURE, UNSPECIFIED | [facility] | | | | | + + + + | 2023-03-25 14:01 | CHRONIC OBSTRUCTIVE | [facility] | | | PULMONARY DISEASE, | | | | UNSPECIFIED | | + + + + | 2023-03-25 14:01 | VENTRAL HERNIA WITHOUT | [facility] | | | OBSTRUCTION OR GANGRENE | | + + + + | 2023-03-25 14:01 | OTHER JAIL (CURRENT) | [facility] | | | DRUG THERAPY | | + + + + | 2023-03-25 14:01 | ALLERGY STATUS TO | [facility] | | | ANALGESIC AGENT STATUS | | + + + + | 2023-03-25 14:01 | ALLERGY STATUS TO OTH | [facility] | | | DRUG/MEDS/BIOL SUBST STATUS | | | | | | + + + + Procedures No information. Results/Labs +--------+--------+ +---------+--------+---------+ | test | date | facility | value | unit | notes | +--------+--------+ +---------+--------+---------+ + + | Result panel 1 | + + + + + +---------+ + + | | 2022-07-14 | [facility] | 15.60 | (missing) | (missing) | | (unavailable | [facility] | | | + + + +---------+ + + + + | Result panel 2 | + + + + + +-------+ + + | | 2022-07-14 | [facility] | 130 | (missing) | (missing) | | (unavailable | [facility] | | | | + + + +-------+ + + + + | Result panel 3 | + + + + + +-------+ + + | | 2022-07-14 | [facility] | 4.2 | (missing) | (missing) | | (unavailable | [facility]16[facility] | | | | + + + +-------+ + + + + | Result panel 4 | + + + + + +------+ + + | | 2022-07-14 | [facility] | 96 | (missing) | (missing) | | (unavailable | [facility] | | | | + + + +------+ + + + + | Result panel 5 | + + + + + +------+ + + | | 2022-07-14 | [facility] | 28 | (missing) | (missing) | | (unavailable | [facility] | | | | + + + +------+ + + + + | Result panel 6 | + + + + + +--------+ + + | | 2022-07-14 | [facility] | 10.2 | (missing) | (missing) | | (unavailable | [facility] | | | | + + + +--------+ + + + + | Result panel 7 | + + + + + +-------+---------+ + | | 2022-07-14 | [facility] | 9.0 | mg/dL | (missing) | | (unavailable | [facility] | | | | + + + +-------+---------+ + + + | Result panel 8 | + + + + + +-------+ + + | | 2022-07-14 | [facility] | 7.8 | (missing) | (missing) | | (unavailable | [facility] | | | | + + + +-------+ + + + + | Result panel 9 | + + + + + +-------+ + + | | 2022-07-14 | [facility] | 3.7 | (missing) | (missing) | | (unavailable | [facility] | | | | + + + +-------+ + + + + | Result panel 10 | + + + + + +-------+ + + | | 2022-07-14 | [facility] | 4.1 | (missing) | (missing) | | (unavailable | [facility] | | | | + + + +-------+ + + + + | Result panel 11 | + + + + + +--------+ + + | | 2022-07-14 | [facility] | 0.90 | (missing) | (missing) | | (unavailable | [facility] | | | | + + + +--------+ + + + + | Result panel 12 | + + + + + +-------+ + + | | 2022-07-14 | [facility] | 0.7 | (missing) | (missing) | | (unavailable | [facility] | | | | + + + +-------+ + + + + | Result panel 13 | + + + + + +------+ + + | | 2022-07-14 | [facility] | 28 | (missing) | (missing) | | (unavailable | [facility] | | | | + + + +------+ + + + + | Result panel 14 | + + + + + +------+ + + | | 2022-07-14 | [facility] | 32 | (missing) | (missing) | | (unavailable | [facility] | | | | + + + +------+ + + + + | Result panel 15 | + + + + + +------+ + + | | 2022-07-14 | [facility] | 71 | (missing) | (missing) | | (unavailable | [facility] | | | | + + + +------+ + + + + | Result panel 16 | + + + + + +-------+ + + | | 2022-07-14 | [facility] | 9.3 | (missing) | (missing) | | (unavailable | [facility] | | | + + + +-------+ + + + + | Result panel 17 | + + + + + +--------+ + + | | 2022-07-14 | [facility] | 5.14 | (missing) | (missing) | | (unavailable | [facility] | | | + + + +--------+ + + + + | Result panel 18 | + + + + + +--------+ + + | | 2022-07-14 | [facility] | 17.2 | (missing) | (missing) | | (unavailable | [facility] | | | + + + +--------+ + + + + | Result panel 19 | + + + + + +--------+ + + | | 2022-07-14 | [facility] | 50.5 | (missing) | (missing) | | (unavailable | [facility]16[facility] | | | + + + +--------+ + + + + | Result panel 20 | + + + + + +--------+ + + | | 2022-07-14 | [facility] | 98.3 | (missing) | (missing) | | (unavailable | [facility]16[facility] | | | + + + +--------+ + + + + | Result panel 21 | + + + + + +--------+ + + | | 2022-07-14 | [facility] | 33.5 | (missing) | (missing) | | (unavailable | [facility] | | | + + + +--------+ + + + + | Result panel 22 | + + + + + +--------+ + + | | 2022-07-14 | [facility] | 34.1 | (missing) | (missing) | | (unavailable | [facility]16[facility] | | | + + + +--------+ + + + + | Result panel 23 | + + + + + +--------+ + + | | 2022-07-14 | [facility] | 12.6 | (missing) | (missing) | | (unavailable | [facility] | | | + + + +--------+ + + + + | Result panel 24 | + + + + + +-------+ + + | | 2022-07-14 | [facility] | 150 | (missing) | (missing) | | (unavailable | [facility] | | | + + + +-------+ + + + + | Result panel 25 | + + + + + +--------+ + + | | 2022-07-14 | [facility] | 84.2 | (missing) | (missing) | | (unavailable | [facility] | | | + + + +--------+ + + + + | Result panel 26 | + + + + + +-------+ + + | | 2022-07-14 | [facility] | 7.0 | (missing) | (missing) | | (unavailable | [facility] | | | + + + +-------+ + + + + | Result panel 27 | + + + + + +-------+ + + | | 2022-07-14 | [facility] | 8.0 | (missing) | (missing) | | (unavailable | [facility] | | | + + + +-------+ + + + + | Result panel 28 | + + + + + +-------+ + + | | 2022-07-14 | [facility] | 0.2 | (missing) | (missing) | | (unavailable | [facility] | | | + + + +-------+ + + + + | Result panel 29 | + + + + + +-------+ + + | | 2022-07-14 | [facility] | 0.6 | (missing) | (missing) | | (unavailable | [facility] | | | + + + +-------+ + + + + | Result panel 30 | + + + + + +-------+---------+ + | | 2022-07-14 | [facility] | 142 | mg/dL | (missing) | | (unavailable | [facility] | | | | + + + +-------+---------+ + + + | Result panel 31 | + + + + + +------+---------+ + | | 2022-07-14 | [facility] | 22 | mg/dL | (missing) | | (unavailable | [facility] | | | | + + + +------+---------+ + + + | Result panel 32 | + + + + + +--------+---------+ + | | 2022-07-14 | [facility] | 1.41 | mg/dL | (missing) | | (unavailable | [facility] | | | + + + +--------+---------+ + + + | Result panel 33 | + + + + + +------+ + + | | 2022-07-14 | [facility] | 56 | (missing) | (missing) | | (unavailable | [facility] | | | | + + + +------+ + + + + | Result panel 34 | + + + + + + + + + | | 2022-07-14 | [facility] | NEGATIVE | (missing) | (missing) | | (unavailable | [facility]59:08 [facility] | | | | + + + + + + + + + | Result panel 35 | + + + + + + + + + | | 2022-07-14 | [facility] | POSITIVE | (missing) | (missing) | | (unavailable | 08:59:08 | [facility] | | | | + + + + + + + + + | Result panel 36 | + + + + + + + + + | | 2022-07-14 | [facility] | NEGATIVE | (missing) | (missing) | | (unavailable | 08:59:08 | [facility] | | | | + + + + + + + + + | Result panel 37 | + + + + + + + + + | | 2022-07-14 | [facility] | NEGATIVE | (missing) | (missing) | | (unavailable | 08:59:08 | [facility] | | | | + + + + + + + + + | Result panel 38 | + + + + + +-------+ + + | | 2022-10-26 | [facility] | 9.1 | (missing) | (missing) | | (unavailable | 22:05:07 | [facility] | | | | + + + +-------+ + + + + | Result panel 39 | + + + + + +--------+ + + | | 2022-10-26 | [facility] | 4.85 | (missing) | (missing) | | (unavailable | 22:05:07 | [facility] | | | | + + + +--------+ + + + + | Result panel 40 | + + + + + +--------+ + + | | 2022-10-26 | [facility] | 16.0 | (missing) | (missing) | | (unavailable | 22:05:07 | [facility] | | | | + + + +--------+ + + + + | Result panel 41 | + + + + + +--------+ + + | | 2022-10-26 | [facility] | 47.0 | (missing) | (missing) | | (unavailable | 22:05:07 | [facility] | | | | + + + +--------+ + + + + | Result panel 42 | + + + + + +--------+ + + | | 2022-10-26 | [facility] | 96.8 | (missing) | (missing) | | (unavailable | 22:05:07 | [facility] | | | | + + + +--------+ + + + + | Result panel 43 | + + + + + +--------+ + + | | 2022-10-26 | [facility] | 33.0 | (missing) | (missing) | | (unavailable | 22:05:07 | [facility] | | | | + + + +--------+ + + + + | Result panel 44 | + + + + + +--------+ + + | | 2022-10-26 | [facility] | 34.0 | (missing) | (missing) | | (unavailable | 22:05:07 | [facility] | | | | + + + +--------+ + + + + | Result panel 45 | + + + + + +--------+ + + | | 2022-10-26 | [facility] | 13.1 | (missing) | (missing) | | (unavailable | 22:05:07 | [facility] | | | | + + + +--------+ + + + + | Result panel 46 | + + + + + +-------+ + + | | 2022-10-26 | [facility] | 181 | (missing) | (missing) | | (unavailable | ::07 | [facility] | | | | + + + +-------+ + + + + | Result panel 47 | + + + + + +--------+ + + | | 2022-10-26 | [facility] | 69.0 | (missing) | (missing) | | (unavailable | 22:05:07 | [facility] | | | | + + + +--------+ + + + + | Result panel 48 | + + + + + +--------+ + + | | 2022-10-26 | [facility] | 21.0 | (missing) | (missing) | | (unavailable | 22:05:07 | [facility] | | | | + + + +--------+ + + + + | Result panel 49 | + + + + + +-------+ + + | | 2022-10-26 | [facility] | 8.4 | (missing) | (missing) | | (unavailable | 22:05:07 | [facility] | | | | + + + +-------+ + + + + | Result panel 50 | + + + + + +-------+ + + | | 2022-10-26 | [facility] | 1.1 | (missing) | (missing) | | (unavailable | 22:05:07 [facility] | | | | + + + +-------+ + + + + | Result panel 51 | + + + + + +-------+ + + | | 2022-10-26 | [facility] | 0.5 | (missing) | (missing) | | (unavailable | 22:05:07 [facility] | | | | + + + +-------+ + + + + | Result panel 52 | + + + + + +--------+ + + | | 2022-10-26 | [facility] | 13.6 | (missing) | (missing) | | (unavailable | :05:07 [facility] | | | | + + + +--------+ + + + + | Result panel 53 | + + + + + +--------+ + + | | 2022-10-26 | [facility] | 1.08 | (missing) | (missing) | | (unavailable | ::07 | [facility] | | | | + + + +--------+ + + + + | Result panel 54 | + + + + + +-------+---------+ + | | 2022-10-26 | [facility] | 117 | mg/dL | (missing) | | (unavailable | ::07 | [facility] | | | | + + + +-------+---------+ + + + | Result panel 55 | + + + + + +------+---------+ + | | 2022-10-26 | [facility] | 34 | mg/dL | (missing) | | (unavailable | 22:05:07 [facility] | | | + + + +------+---------+ + + + | Result panel 56 | + + + + + +--------+---------+ + | | 2022-10-26 | [facility] | 1.36 | mg/dL | (missing) | | (unavailable | 22:05:07 [facility] | | | + + + +--------+---------+ + + + | Result panel 57 | + + + + + +------+ + + | | 2022-10-26 | [facility] | 58 | (missing) | (missing) | | (unavailable | 22:05:07 [facility] | | | + + + +------+ + + + + | Result panel 58 | + + + + + +---------+ + + | | 2022-10-26 | [facility] | 25.00 | (missing) | (missing) | | (unavailable | 22:05:07 [facility] | | | + + + +---------+ + + + + | Result panel 59 | + + + + + +-------+ + + | | 2022-10-26 | [facility] | 138 | (missing) | (missing) | | (unavailable | ::07 | [facility] | | | | + + + +-------+ + + + + | Result panel 60 | + + + + + +-------+ + + | | 2022-10-26 | [facility] | 4.1 | (missing) | (missing) | | (unavailable | :05:07 [facility] | | | | + + + +-------+ + + + + | Result panel 61 | + + + + + +-------+ + + | | 2022-10-26 | [facility] | 100 | (missing) | (missing) | | (unavailable | 22:05:07 [facility] | | | | + + + +-------+ + + + + | Result panel 62 | + + + + + +------+ + + | | 2022-10-26 | [facility] | 27 | (missing) | (missing) | | (unavailable | :05:07 [facility] | | | | + + + +------+ + + + + | Result panel 63 | + + + + + +--------+ + + | | 2022-10-26 | [facility] | 15.1 | (missing) | (missing) | | (unavailable | ::07 | [facility] | | | | + + + +--------+ + + + + | Result panel 64 | + + + + + +-------+---------+ + | | 2022-10-26 | [facility] | 9.3 | mg/dL | (missing) | | (unavailable | 07 | [facility] | | | | + + + +-------+---------+ + + + | Result panel 65 | + + + + + +-------+ + + | | 2022-10-26 | [facility] | 8.3 | (missing) | (missing) | | (unavailable | ::07 | [facility] | | | | + + + +-------+ + + + + | Result panel 66 | + + + + + +-------+ + + | | 2022-10-26 | [facility] | 4.4 | (missing) | (missing) | | (unavailable | ::07 | [facility] | | | | + + + +-------+ + + + + | Result panel 67 | + + + + + +-------+ + + | | 2022-10-26 | [facility] | 3.9 | (missing) | (missing) | | (unavailable | :05:07 [facility] | | | | + + + +-------+ + + + + | Result panel 68 | + + + + + +--------+ + + | | 2022-10-26 | [facility] | 1.13 | (missing) | (missing) | | (unavailable | ::07 | [facility] | | | | + + + +--------+ + + + + | Result panel 69 | + + + + + +-------+ + + | | 2022-10-26 | [facility] | 0.5 | (missing) | (missing) | | (unavailable | 22:05:07 [facility] | | | + + + +-------+ + + + + | Result panel 70 | + + + + + +------+ + + | | 2022-10-26 | [facility] | 28 | (missing) | (missing) | | (unavailable | 22:05:07 [facility] | | | + + + +------+ + + + + | Result panel 71 | + + + + + +------+ + + | | 2022-10-26 | [facility] | 27 | (missing) | (missing) | | (unavailable | 22:05:07 [facility] | | | + + + +------+ + + + + | Result panel 72 | + + + + + +------+ + + | | 2022-10-26 | [facility] | 81 | (missing) | (missing) | | (unavailable | 22:05:07 [facility] | | | + + + +------+ + + + + | Result panel 73 | + + + + + +-------+ + + | | 2023-03-25 | [facility] | 7.9 | (missing) | (missing) | | (unavailable | 14:10:07 [facility] | | | + + + +-------+ + + + + | Result panel 74 | + + + + + +--------+ + + | | 2023-03-25 | [facility] | 75.9 | (missing) | (missing) | | (unavailable | 14:10:07 [facility] | | | + + + +--------+ + + + + | Result panel 75 | + + + + + +--------+ + + | | 2023-03-25 | [facility] | 15.3 | (missing) | (missing) | | (unavailable | 14:10:07 [facility] | | | + + + +--------+ + + + + | Result panel 76 | + + + + + +-------+ + + | | 2023-03-25 | [facility] | 7.7 | (missing) | (missing) | | (unavailable | 14:10:07 [facility] | | | + + + +-------+ + + + + | Result panel 77 | + + + + + +-------+ + + | | 2023-03-25 | [facility] | 0.8 | (missing) | (missing) | | (unavailable | 14:10:07 [facility] | | | + + + +-------+ + + + + | Result panel 78 | + + + + + +-------+ + + | | 2023-03-25 | [facility] | 0.3 | (missing) | (missing) | | (unavailable | 14:10:07 [facility] | | | | + + + +-------+ + + + + | Result panel 79 | + + + + + +--------+ + + | | 2023-03-25 | [facility] | 5.02 | (missing) | (missing) | | (unavailable | 14[facility]10:07 [facility] | | | + + + +--------+ + + + + | Result panel 80 | + + + + + +-------+---------+ + | | 2023-03-25 | [facility] | 117 | mg/dL | (missing) | | (unavailable | 14:10:07 [facility] | | | | + + + +-------+---------+ + + + | Result panel 81 | + + + + + +------+---------+ + | | 2023-03-25 | [facility] | 19 | mg/dL | (missing) | | (unavailable | 14[facility]10:07 [facility] | | | | + + + +------+---------+ + + + | Result panel 82 | + + + + + +--------+---------+ + | | 2023-03-25 | [facility] | 1.23 | mg/dL | (missing) | | (unavailable | 14:10:07 [facility] | | | | + + + +--------+---------+ + + + | Result panel 83 | + + + + + +--------+ + + | | 2023-03-25 | [facility] | 16.4 | (missing) | (missing) | | (unavailable | [facility]10:07 [facility] | | | | + + + +--------+ + + + + | Result panel 84 | + + + + + +------+ + + | | 2023-03-25 | [facility] | 65 | (missing) | (missing) | | (unavailable | 14[facility]10:07 [facility] | | | | + + + +------+ + + + + | Result panel 85 | + + + + + +---------+ + + | | 2023-03-25 | [facility] | 15.44 | (missing) | (missing) | | (unavailable | 14[facility]10:07 [facility] | | | | + + + +---------+ + + + + | Result panel 86 | + + + + + +-------+ + + | | 2023-03-25 | [facility] | 135 | (missing) | (missing) | | (unavailable | 14[facility]10:07 [facility] | | | | + + + +-------+ + + + + | Result panel 87 | + + + + + +-------+ + + | | 2023-03-25 | [facility] | 4.3 | (missing) | (missing) | | (unavailable | 14[facility]10:07 [facility] | | | | + + + +-------+ + + + + | Result panel 88 | + + + + + +------+ + + | | 2023-03-25 | [facility] | 97 | (missing) | (missing) | | (unavailable | 14[facility]10:07 [facility] | | | | + + + +------+ + + + + | Result panel 89 | + + + + + +------+ + + | | 2023-03-25 | [facility] | 31 | (missing) | (missing) | | (unavailable | 14[facility]10:07 [facility] | | | + + + +------+ + + + + | Result panel 90 | + + + + + +--------+ + + | | 2023-03-25 | [facility] | 11.3 | (missing) | (missing) | | (unavailable | 14[facility]10:07 [facility] | | | + + + +--------+ + + + + | Result panel 91 | + + + + + +-------+---------+ + | | 2023-03-25 | [facility] | 9.6 | mg/dL | (missing) | | (unavailable | 14:10:07 [facility] | | | + + + +-------+---------+ + + + | Result panel 92 | + + + + + +-------+ + + | | 2023-03-25 | [facility] | 8.0 | (missing) | (missing) | | (unavailable | [facility]10:07 [facility] | | | + + + +-------+ + + + + | Result panel 93 | + + + + + +-------+ + + | | 2023-03-25 | [facility] | 4.2 | (missing) | (missing) | | (unavailable | 14[facility]10:07 [facility] | | | + + + +-------+ + + + + | Result panel 94 | + + + + + +--------+ + + | | 2023-03-25 | [facility] | 47.9 | (missing) | (missing) | | (unavailable | 14[facility]10:07 [facility] | | | + + + +--------+ + + + + | Result panel 95 | + + + + + +-------+ + + | | 2023-03-25 | [facility] | 3.8 | (missing) | (missing) | | (unavailable | 14[facility]10:07 [facility] | | | + + + +-------+ + + + + | Result panel 96 | + + + + + +--------+ + + | | 2023-03-25 | [facility] | 1.11 | (missing) | (missing) | | (unavailable | 14[facility]10:07 [facility] | | | + + + +--------+ + + + + | Result panel 97 | + + + + + +-------+ + + | | 2023-03-25 | [facility] | 0.6 | (missing) | (missing) | | (unavailable | 14[facility]10:07 [facility] | | | + + + +-------+ + + + + | Result panel 98 | + + + + + +------+ + + | | 2023-03-25 | [facility] | 27 | (missing) | (missing) | | (unavailable | 14[facility]10:07 [facility] | | | | + + + +------+ + + + + | Result panel 99 | + + + + + +------+ + + | | 2023-03-25 | [facility] | 22 | (missing) | (missing) | | (unavailable | 14[facility]10:07 [facility] | | | + + + +------+ + + + + | Result panel 100 | + + + + + +------+ + + | | 2023-03-25 | [facility] | 89 | (missing) | (missing) | | (unavailable | 14[facility]10:07 [facility] | | | + + + +------+ + + + + | Result panel 101 | + + + + + +-------+ + + | | 2023-03-25 | [facility] | 134 | (missing) | (missing) | | (unavailable | 14[facility]10:07 [facility] | | | + + + +-------+ + + + + | Result panel 102 | + + + + + +--------+ + + | | 2023-03-25 | [facility] | 95.4 | (missing) | (missing) | | (unavailable | 14[facility]10:07 [facility] | | | + + + +--------+ + + + + | Result panel 103 | + + + + + +--------+ + + | | 2023-03-25 | [facility] | 32.7 | (missing) | (missing) | | (unavailable | 14[facility]10:07 [facility] | | | + + + +--------+ + + + + | Result panel 104 | + + + + + +--------+ + + | | 2023-03-25 | [facility] | 34.3 | (missing) | (missing) | | (unavailable | [facility]10:07 [facility] | | | + + + +--------+ + + + + | Result panel 105 | + + + + + +--------+ + + | | 2023-03-25 | [facility] | 13.1 | (missing) | (missing) | | (unavailable | 14[facility]10:07 [facility] | | | + + + +--------+ + + + + | Result panel 106 | + + + + + +-------+ + + | | 2023-03-25 | [facility] | 157 | (missing) | (missing) | | (unavailable | 14[facility]10:07 [facility] | | | + + + +-------+ + + + + | Result panel 107 | + + + + + + + + + | | 2023-03-25 | [facility] | YELLOW | (missing) | (missing) | | (unavailable | 15:18:07 [facility] | | | | + + + + + + + + + | Result panel 108 | + + + + + +---------+ + + | | 2023-03-25 | [facility] | CLEAR | (missing) | (missing) | | (unavailable | 15[facility]18:07 [facility] | | | | + + + +---------+ + + + + | Result panel 109 | + + + + + +---------+ + + | | 2023-03-25 | [facility] | SMALL | (missing) | (missing) | | (unavailable | 15[facility]18:07 [facility] | | | | + + + +---------+ + + + + | Result panel 110 | + + + + + + + + + | | 2023-03-25 | [facility] | NEGATIVE | (missing) | (missing) | | (unavailable | [facility]18:07 [facility] | | | | + + + + + + + + + | Result panel 111 | + + + + + + + + + | | 2023-03-25 | [facility] | NEGATIVE | (missing) | (missing) | | (unavailable | 15[facility]18:07 [facility] | | | | + + + + + + + + + | Result panel 112 | + + + + + +---------+ + + | | 2023-03-25 | [facility] | 1.010 | (missing) | (missing) | | (unavailable | 15:18: | [facility] | | | | + + + +---------+ + + + + | Result panel 113 | + + + + + + + + + | | 2023-03-25 | [facility] | NEGATIVE | (missing) | (missing) | | (unavailable | 15:18: | [facility] | | | | + + + + + + + + + | Result panel 114 | + + + + + +-------+ + + | | 2023-03-25 | [facility] | 6.0 | (missing) | (missing) | | (unavailable | [facility]18:07 [facility] | | | | + + + +-------+ + + + + | Result panel 115 | + + + + + + + + + | | 2023-03-25 | [facility] | NEGATIVE | (missing) | (missing) | | (unavailable | [facility]18:07 [facility] | | | | + + + + + + + + + | Result panel 116 | + + + + + + + + + | | 2023-03-25 | [facility] | NORMAL | (missing) | (missing) | | (unavailable | [facility]18:07 [facility] | | | | + + + + + + + + + | Result panel 117 | + + + + + + + + + | | 2023-03-25 | [facility] | NEGATIVE | (missing) | (missing) | | (unavailable | [facility]18:07 [facility] | | | | + + + + + + + + + | Result panel 118 | + + + + + + + + + | | 2023-03-25 | [facility] | NEGATIVE | (missing) | (missing) | | (unavailable | [facility]18:07 [facility] | | | | + + + + + + + Social History No information. Vital Signs + + + +---------+ | date | measurement | value | units | + + + +---------+ | 2022-07-14 00:00 | BMI | 23.4 | kg/m2 | + + + +---------+ | 2022-07-14 00:00 | BP_diastolic | 98 | mmHg | + + + +---------+ | 2022-07-14 00:00 | BP_systolic | 121 | mmHg | + + + +---------+ | 2022-07-14 00:00 | heart_rate | 90 | /min | + + + +---------+ | 2022-07-14 00:00 | height_metric | 172.72 | cm | + + + +---------+ | 2022-07-14 00:00 | height_standard | 68 | in | + + + +---------+ | 2022-07-14 00:00 | o2_saturation | 93 | % | + + + +---------+ | 2022-07-14 00:00 | respiration_rate | 20 | /min | + + + +---------+ | 2022-07-14 00:00 | temperature_metric | 37.28 | C | | | | | | + + + +---------+ | 2022-07-14 00:00 | | 99.1 | F | | | temperature_standar | | | | | d | | | + + + +---------+ | 2022-07-14 00:00 | weight_metric | 69.85 | kg | + + + +---------+ | 2022-07-14 00:00 | weight_standard | 153.99 | lb | + + + +---------+ | 2022-07-14 00:00 | weight_standard | 154 | lb | + + + +---------+ | 2022-10-27 00:00 | BMI | 24.2 | kg/m2 | + + + +---------+ | 2022-10-27 00:00 | BP_diastolic | 79 | mmHg | + + + +---------+ | 2022-10-27 00:00 | BP_systolic | 151 | mmHg | + + + +---------+ | 2022-10-27 00:00 | heart_rate | 65 | /min | + + + +---------+ | 2022-10-27 00:00 | height_metric | 172.72 | cm | + + + +---------+ | 2022-10-27 00:00 | height_standard | 68 | in | + + + +---------+ | 2022-10-27 00:00 | o2_saturation | 95 | % | + + + +---------+ | 2022-10-27 00:00 | respiration_rate | 14 | /min | + + + +---------+ | 2022-10-27 00:00 | temperature_metric | 36.56 | C | | | | | | + + + +---------+ | 2022-10-27 00:00 | | 97.8 | F | | | temperature_standar | | | | | d | | | + + + +---------+ | 2022-10-27 00:00 | weight_metric | 72.1 | kg | + + + +---------+ | 2022-10-27 00:00 | weight_standard | 158.95 | lb | + + + +---------+ | 2023-03-25 00:00 | BMI | 21.3 | kg/m2 | + + + +---------+ | 2023-03-25 00:00 | BP_diastolic | 100 | mmHg | + + + +---------+ | 2023-03-25 00:00 | BP_systolic | 170 | mmHg | + + + +---------+ | 2023-03-25 00:00 | heart_rate | 79 | /min | + + + +---------+ | 2023-03-25 00:00 | height_metric | 172.72 | cm | + + + +---------+ | 2023-03-25 00:00 | height_standard | 68 | in | + + + +---------+ | 2023-03-25 00:00 | o2_saturation | 98 | % | + + + +---------+ | 2023-03-25 00:00 | respiration_rate | 14 | /min | + + + +---------+ | 2023-03-25 00:00 | temperature_metric | 36.72 | C | | | | | | + + + +---------+ | 2023-03-25 00:00 | | 98.1 | F | | | temperature_standar | | | | | d | | | + + + +---------+ | 2023-03-25 00:00 | weight_metric | 63.5 | kg | + + + +---------+ | 2023-03-25 00:00 | weight_standard | 139.99 | lb | + + + +---------+ | 2023-03-25 00:00 | weight_standard | 140 | lb | + + + +---------+"
--- OUTSIDE RECORDS SUMMARY | ~2023-04-09 | XMS | Continuity of Care Document ---
Demographics + + + | Address | [address] | | | [place] [address] | + + + | Preferred Language | Unknown | + + + | Marital Status | Never | + + + | Restoration Affiliation | Unknown | + + + | Race | White | + + + | Ethnic Group | Not or | + + + Author + + + | Author | [facility] | + + + | Organization | [facility] | + + + | Address | [address] | | | [place] [address] | + + + | Phone | | + + + Care Team Providers + + + + | Care Blender Helper Name | Role | Phone | [...] + | 2022-07-14 00:00 | ONDANSETRON | [facility] | + + + + | 2022-10-27 00:00 | ONDANSETRON | [facility] | + + + + | 2023-03-25 00:00 | ONDANSETRON | [facility] | + + + + | 2015-05-03 00:00 | OXYCODONE HCL | [facility] | + + + + | 2015-05-03 00:00 | OXYCODONE HCL | [facility] | + + + + | 2022-07-14 00:00 | OXYCODONE HCL | [facility] | + + + + | 2022-10-27 00:00 | OXYCODONE HCL | [facility] | + + + + | 2023-03-25 00:00 | OXYCODONE HCL | [facility] | + + + + | 2017-01-17 00:00 | OXYCODONE HCL | [facility] | + + + + | 2017-01-17 00:00 | OXYCODONE HCL | [facility] | + + + + | 2022-07-14 00:00 | AMLODIPINE BESYLATE | [facility] | + + + + | 2022-10-27 00:00 | AMLODIPINE BESYLATE | [facility] | + + + + | 2023-03-25 00:00 | AMLODIPINE BESYLATE | [facility] | + + + + | 2022-07-14 00:00 | DIAZEPAM | [facility] | + + + + | 2022-10-27 00:00 | DIAZEPAM | [facility] | + + + + | 2023-03-25 00:00 | DIAZEPAM | [facility] | + + + + | 2022-07-14 00:00 | NITROGLYCERIN | [facility] | + + + + | 2022-10-27 00:00 | NITROGLYCERIN | [facility] | + + + + | 2023-03-25 00:00 | NITROGLYCERIN | [facility] | + + + + | 2022-07-14 00:00 | TACROLIMUS | [facility] | + + + + | 2022-07-14 00:00 | MAGNESIUM OXIDE | [facility] | + + + + | 2022-10-27 00:00 | MAGNESIUM OXIDE | [facility] | + + + + | 2023-03-25 00:00 | MAGNESIUM OXIDE | [facility] | + + + + | 2022-07-14 00:00 | MYCOPHENOLATE MOFETIL | [facility] | + + + + | 2022-10-27 00:00 | MYCOPHENOLATE MOFETIL | [facility] | + + + + | 2023-03-25 00:00 | MYCOPHENOLATE MOFETIL | [facility] | + + + + | 2019-04-02 00:00 | CIPROFLOXACIN HCL | [facility] | + + + + | 2019-04-02 00:00 | CIPROFLOXACIN HCL | [facility] | + + + + | 2022-07-14 00:00 | AMLODIPINE BESYLATE | [facility] | + + + + | 2022-07-14 00:00 | ASPIRIN | [facility] | + + + + | 2022-10-27 00:00 | ASPIRIN | [facility] | + + + + | 2023-03-25 00:00 | ASPIRIN | [facility] | + + + + | 2017-08-01 00:00 | CEPHALEXIN | [facility] | + + + + | 2017-08-01 00:00 | CEPHALEXIN | [facility] | + + + + | 2022-07-14 00:00 | CLOPIDOGREL BISULFATE | [facility] | + + + + | 2022-10-27 00:00 | FAMOTIDINE | [facility] | + + + + | 2023-03-25 00:00 | FAMOTIDINE | [facility] | + + + + | 2022-07-14 00:00 | FLUOXETINE HCL | [facility] | + + + + | 2022-10-27 00:00 | FLUOXETINE HCL | [facility] | + + + + | 2023-03-25 00:00 | FLUOXETINE HCL | [facility] | + + + + | 2022-07-14 00:00 | FUROSEMIDE | [facility] | + + + + | 2022-10-27 00:00 | FUROSEMIDE | [facility] | + + + + | 2023-03-25 00:00 | FUROSEMIDE | [facility] | + + + + | 2022-07-14 00:00 | GABAPENTIN | [facility] | + + + + | 2022-10-27 00:00 | GABAPENTIN | [facility] | + + + + | 2023-03-25 00:00 | GABAPENTIN | [facility] | + + + + | 2022-07-14 00:00 | ONDANSETRON | [facility] | + + + + | 2022-07-14 00:00 | TACROLIMUS | [facility] | + + + + | 2022-10-27 00:00 | TACROLIMUS | [facility] | + + + + | 2023-03-25 00:00 | TACROLIMUS | [facility] | + + + + | 2022-07-14 00:00 | ISOSORBIDE MONONITRATE | [facility] | + + + + | 2022-07-14 00:00 | SIROLIMUS | [facility] | + + + + | 2022-10-27 00:00 | SIROLIMUS | [facility] | + + + + | 2023-03-25 00:00 | SIROLIMUS | [facility] | + + + + | 2022-07-14 00:00 | SIROLIMUS | [facility] | + + + + | 2022-10-27 00:00 | SIROLIMUS | [facility] | + + + + | 2023-03-25 00:00 | SIROLIMUS | [facility] | + + + + | 2022-07-14 00:00 | MYCOPHENOLATE MOFETIL | [facility] | + + + + | 2022-10-27 00:00 | MYCOPHENOLATE MOFETIL | [facility] | + + + + | 2023-03-25 00:00 | MYCOPHENOLATE MOFETIL | [facility] | + + + + | 2022-07-14 00:00 | OSELTAMIVIR PHOSPHATE | [facility] | + + + + | 2019-04-21 00:00 | AMOXICILLIN/POTASSIUM CLAV | [facility] | | | | | + + + + | 2017-08-30 00:00 | TRAMADOL HCL | [facility] | + + + + | 2017-08-30 00:00 | TRAMADOL HCL | [facility] | + + + + | 2022-07-14 00:00 | TRAMADOL HCL | [facility] | + + + + | 2022-07-14 00:00 | | [facility] | | | SULFAMETHOXAZOLE/TRIMETHOPR | | | | IM DS | | + + + + | 2022-10-27 00:00 | | [facility] | | | SULFAMETHOXAZOLE/TRIMETHOPR | | | | IM DS | | + + + + | 2023-03-25 00:00 | | [facility] | | | SULFAMETHOXAZOLE/TRIMETHOPR | | | | IM DS | | + + + + | 2022-07-14 00:00 | ALBUTEROL SULFATE | [facility] | + + + + | 2022-07-14 00:00 | METOPROLOL SUCCINATE | [facility] | + + + + | 2022-10-27 00:00 | METOPROLOL SUCCINATE | [facility] | + + + + | 2023-03-25 00:00 | METOPROLOL SUCCINATE | [facility] | + + + + | 2022-07-14 00:00 | METOPROLOL SUCCINATE | [facility] | + + + + | 2022-10-27 00:00 | METOPROLOL SUCCINATE | [facility] | + + + + | 2023-03-25 00:00 | METOPROLOL SUCCINATE | [facility] | + + + + | 2020-06-02 00:00 | METOPROLOL SUCCINATE | [facility] | + + + + | 2022-07-14 00:00 | LOSARTAN POTASSIUM | [facility] | + + + + | 2022-10-27 00:00 | LOSARTAN POTASSIUM | [facility] | + + + + | 2023-03-25 00:00 | LOSARTAN POTASSIUM | [facility] | + + + + | 2022-07-14 00:00 | LOSARTAN POTASSIUM | [facility] | + + + + | 2022-10-27 00:00 | LOSARTAN POTASSIUM | [facility] | + + + + | 2023-03-25 00:00 | LOSARTAN POTASSIUM | [facility] | + + + + Problems + + + + | date | description | facility | + + + + | 2015-01-12 00:00 | Abdominal pain | [facility] | + + + + | 2015-01-12 00:00 | Abdominal pain | [facility] | + + + + | 2015-05-03 00:00 | Fracture of distal end of | [facility] | | | left radius | | + + + + | 2015-05-03 00:00 | Fracture of distal end of | [facility] | | | left radius | | + + + + | 2016-08-22 00:00 | Lipoma of face | [facility] | + + + + | 2016-08-22 00:00 | Lipoma of face | [facility] | + + + + | 2016-08-22 00:00 | Pericardial effusion | [facility] | + + + + | 2016-08-22 00:00 | Pericardial effusion | [facility] | + + + + | 2016-08-22 00:00 | Acute on chronic | [facility] | | | congestive heart failure | | + + + + | 2016-08-22 00:00 | Acute on chronic | [facility] | | | congestive heart failure | | + + + + | 2016-08-22 00:00 | Pleural effusion | [facility] | + + + + | 2016-08-22 00:00 | Pleural effusion | [facility] | + + + + | 2017-01-17 00:00 | Contusion of right lower | [facility] | | | extremity | | + + + + | 2017-01-17 00:00 | Contusion of right lower | [facility] | | | extremity | | + + + + | 2017-07-14 00:00 | Pre-syncope | [facility] | + + + + | 2017-07-14 00:00 | Pre-syncope | [facility] | + + + + | 2017-08-01 00:00 | Atrial fibrillation with | [facility] | | | rapid ventricular response | | + + + + | 2017-08-01 00:00 | Atrial fibrillation with | [facility] | | | rapid ventricular response | | + + + + | 2017-08-30 00:00 | Contusion of left foot | [facility] | + + + + | 2017-08-30 00:00 | Contusion of left foot | [facility] | + + + + | 2017-10-26 00:00 | Cellulitis of face | [facility] | + + + + | 2017-10-26 00:00 | Cellulitis of face | [facility] | + + + + | 2018-01-13 00:00 | Fracture of right hip | [facility] | + + + + | 2018-01-13 00:00 | Fracture of right hip | [facility] | + + + + | 2018-01-13 00:00 | Recipient of liver | [facility] | | | transplantation | | + + + + | 2018-01-13 00:00 | Recipient of liver | [facility] | | | transplantation | | + + + + | 2019-05-15 00:00 | Non-ST elevation | [facility] | | | myocardial infarction | | | | (NSTEMI) | | + + + + | 2019-05-15 00:00 | Non-ST elevation | [facility] | | | myocardial infarction | | | | (NSTEMI) | | + + + + | 2020-06-02 00:00 | Paroxysmal | [facility] | | | supraventricular | | | | tachycardia | | + + + + | 2020-06-02 00:00 | Paroxysmal | [facility] | | | supraventricular | | | | tachycardia | | + + + + | 2022-07-14 00:00 | Influenza | [facility] | + + + + | 2022-07-14 00:00 | Influenza | [facility] | + + + + | 2022-10-26 00:00 | Obstruction of esophagus | [facility] | | | due to food impaction | | + + + + | 2022-10-26 00:00 | Obstruction of esophagus | [facility] | | | due to food impaction [...] + + | 2022-10-26 23:45 | OTHER FDC (CURRENT) | [facility] | | | DRUG [...] + + | 2023-03-25 14:01 | OTHER FDC (CURRENT) | [facility] | | | DRUG [...] (missing) | | (unavailable | 08:16:08 | [facility] | | | | | ) | [...]
[~2023-04-09 16:18] MED LIST changes: -AMLODIPINE BESY10 MG; +AMLODIPINE BESY10 MG PO; +FAMOTIDINE20 MG PO; +ONDANSETRON ODT8 MG PO; +TAMIFLU30 MG PO
--- OUTSIDE RECORDS SUMMARY | 2023-04-09 16:20 | XMS ---
PreManage Notification: MARISSA BUENROSTRO Security Supervisor Cartography Events No recent Security Events currently on file CRITERIA MET - Group Notification - PDMP - [facility] - 2 Visits in 30 Days CARE PROVIDERS QUINCY OLIVEROS Internal Medicine 04/05/2019-Current PHONE: Unknown ALMAZ GRIFFIN Physician Storeperson Current PHONE: [phone] Sandie has no Care Guidelines for this patient. Care History Medical/Surgical 01/14/2018 [facility] - Patient is currently established with [facility]. If patient is seen in the ED during business hours. Please contact CHWs at [facility] at Ext [phone]. Care Recommendation: This patient has had 5 or more Emergency Department visits in the last 12 months.\T\nbsp; Patient requires education on the scope and purpose of the ED as an acute care provider not a Primary Care Provider and should not be utilized for chronic conditions.\T\nbsp; If patient returns to ED please contact Community Health WorkerPia at [phone]. These are guidelines and the provider should exercise clinical judgment when providing care. Jose Juan VISIT COUNT (12 MO.) 4 JAMES Barrera TOTAL 4 NOTE: Visits indicate total known visits. ED/UCC VISIT TRACKING (12 MO.) 04/09/2023 16:18 [facility] [place] TYPE: Emergency 03/25/2023 14:01 JAMES Harmonanila DavidValentina Funez [place] TYPE: Emergency COMPLAINT: - WEAKNESS DIAGNOSES: - Allergy status to analgesic agent - Allergy status to other drugs, medicaments and biological substances - Chronic obstructive pulmonary disease, unspecified - Heart failure, unspecified - Hypertensive heart disease with heart failure - Nicotine dependence, unspecified, uncomplicated - Other detention (current) drug therapy - Ventral hernia without obstruction or gangrene 10/26/2022 21:44 [facility] [place] TYPE: Emergency COMPLAINT: - FOREIGN OBJECT IN THROAT 07/14/2022 07:54 [facility] [place] TYPE: Emergency COMPLAINT: - SOB DIAGNOSES: - Allergy status to analgesic agent - Allergy status to narcotic agent - Chronic obstructive pulmonary disease, unspecified - Contact with and (suspected) exposure to COVID-19 - Headache, unspecified - Heart failure, unspecified - Hypertensive heart disease with heart failure - Influenza due to other identified influenza virus with other respiratory manifestations - Nicotine dependence, unspecified, uncomplicated - Other intermediate frame tender (current) drug therapy - Personal history of urinary calculi - Unspecified atrial fibrillation INPATIENT VISIT TRACKING (12 MO.) 10/26/2022 23:45 [facility] [place] TYPE: Observation COMPLAINT: - ESOPHAGEAL FOOD BOLUS DIAGNOSES: - Allergy status to analgesic agent - Allergy status to narcotic agent - Allergy status to other drugs, medicaments and biological substances - Chronic obstructive pulmonary disease, unspecified - Diaphragmatic hernia without obstruction or gangrene - Exposure to other specified factors, initial encounter - Food in esophagus causing other injury, initial encounter - Gastritis, unspecified, without bleeding - Heart failure, unspecified - Hypertensive heart disease with heart failure - Nicotine dependence, unspecified, uncomplicated - Other detention (current) drug therapy - Unspecified chronic gastritis without bleeding [email or web address]
[2023-04-09 16:58] LABS: BASOPHILS 0.3 % (0-2); EOSINOPHILS 0.3 % (0-6); HEMATOCRIT 43.9 % (35.0-50.0); HEMOGLOBIN 14.8 g/dL (12.0-18.0); LYMPHOCYTES 14.4 % (24-44); MCH 32.6 (27-36); MCHC 33.6 g/dl (30-36); MCV 96.8 fl (81-99); MONOCYTES 6.9 % (0-12); NEUTROPHILS 78.1 % (39-80); PLATELET COUNT 148 K/uL (140-440); RBC 4.53 M/ul (4.3-5.7)
[2023-04-09 17:13] LABS: ALBUMIN 3.6 g/dL (3.4-5.0); ALBUMIN/GLOBULIN RATIO 1.06 (1.1-2.4); ANION GAP 8.2 (7-21); BILIRUBIN, TOTAL 0.6 ng/dL (0.2-1.0); BUN/CREATININE RATIO 16.89 (6.0-28.6); CALCIUM 9.1 mg/dL (8.5-10.1); CREATININE, SERUM 1.48 mg/dL (0.70-1.30); POTASSIUM 4.2 mmol/L (3.5-5.1)
[2023-04-09 19:13] LABS: BILIRUBIN, URINE NEGATIVE (negative); BLOOD/HGB, URINE NEGATIVE (Negative); KETONE, URINE NEGATIVE (Negative); LEUK ESTERASE, URINE NEGATIVE (negative); NITRITE, URINE NEGATIVE (negative)
[2023-04-09] MEDS ORDERED: TRAMADOL HCL50 MG PO (21:08)
[2023-04-09 21:20] VITALS: BP 155/69
--- NOTE | 2023-04-11 17:08 | EKG ---
[facility] [address] [place] [address] Signed Sinus bradycardia with premature atrial complexes Right bundle branch block Abnormal ECG When compared with ECG of 27-OCT-2022 06:44, premature atrial complexes are now present VT interval has decreased Vent. rate has decreased BY 36 BPM Confirmed by MARTHA GUARDADO MD ([id number]) on 04/11/2023 5:08:19 PM Electronically Signed By: MARTHA GUARDADO 04/11/23 1708 PATIENT NAME: MARISSA BUENROSTRO Electrocardiogram DATE OF : 56 PHYSICIAN: MARTHA GUARDADO REPORT #: [id number] REPORT IS CONFIDENTIAL AND NOT TO BE RELEASED WITHOUT AUTHORIZATION
== END 2023-04-09 21:21 | disposition home or self-care (01) ==
LOC: ED 16:18
PROVIDERS: Emergency Medicine
DX: K43.9 Ventral hernia without obstruction or gangrene (principal); I11.0 Hypertensive heart disease with heart failure; J44.9 Chronic obstructive pulmonary disease, unspecified; I48.91 Unspecified atrial fibrillation; I50.9 Heart failure, unspecified; F17.200 Nicotine dependence, unspecified, uncomplicated; Z88.8 Allergy status to other drugs, medicaments and biological substances; Z88.6 Allergy status to analgesic agent; Z79.899 Other long term (current) drug therapy; Z79.82 Long term (current) use of aspirin
CPT/HCPCS: 36415; 74177; 80053; 81003; 83690; 85025; 93005; 93010; 96375; 96376; 99284-25; A9270; J1170; J2405; Q9967

== ENCOUNTER 2024-04-14 19:59 | Emergency (ER) | payer MEDICARE, OTHER ==
[~2024-04-14] VITALS: Ht 172.7 cm; Wt 60.0 kg
[2024-04-14] MEDS ORDERED: HYDROmorphone HCL 2 MG TAB PO ONE (20:15)
[2024-04-14] MEDS ORDERED: OXYCODONE HCL5 MG PO (21:05)
[2024-04-14] MEDS ORDERED: HYDROmorphone HCL 2 MG HOME.PACK PO ONE (21:30)
[2024-04-14 21:52] VITALS: BP 190/90
== END 2024-04-14 21:54 | disposition home or self-care (01) ==
LOC: ED 19:59
DX: S82.045A Nondisplaced comminuted fracture of left patella, initial encounter for closed fracture (principal); J44.9 Chronic obstructive pulmonary disease, unspecified; I11.0 Hypertensive heart disease with heart failure; I50.9 Heart failure, unspecified; I48.91 Unspecified atrial fibrillation; F17.200 Nicotine dependence, unspecified, uncomplicated; W18.30XA Fall on same level, unspecified, initial encounter; Z79.82 Long term (current) use of aspirin; Z88.6 Allergy status to analgesic agent; Z88.5 Allergy status to narcotic agent; Z88.8 Allergy status to other drugs, medicaments and biological substances
CPT/HCPCS: 73030; 73080; 73110; 73560; 99283

== ENCOUNTER 2024-04-15 01:55 | Emergency (ER) | payer MEDICARE, OTHER ==
[~2024-04-15] VITALS: Ht 172.7 cm; Wt 65.0 kg
[2024-04-15] MEDS ORDERED: HYDROmorphone HCL 1 MG/ML SYR IV ONE (02:00)
[2024-04-15] MEDS ORDERED: KETOROLAC TROMETHAMINE 30 MG/ML VIAL IV ONE (02:15)
[2024-04-15] MEDS ORDERED: CEFAZOLIN SODIUM 2 GM/20 ML SYR IV ONE (02:30)
[2024-04-15] MEDS ORDERED: LORazepam 2 MG/ML VIAL IV ONE (02:30)
[2024-04-15] MEDS ORDERED: TRANEXAMIC ACID IN NACL,ISO-OS 1,000 MG/100 ML PIGGYBACK IV ONE (02:30)
[2024-04-15] MEDS ORDERED: METOPROLOL TARTRATE 5 MG/5 ML VIAL IV ONE (02:45)
[2024-04-15 03:03] LABS: BILIRUBIN, URINE NEGATIVE (negative); BLOOD/HGB, URINE NEGATIVE (Negative); KETONE, URINE NEGATIVE (Negative); LEUK ESTERASE, URINE NEGATIVE (negative); NITRITE, URINE NEGATIVE (negative)
[2024-04-15 03:11] LABS: BASOPHILS 0.6 % (0-2); EOSINOPHILS 0.6 % (0-6); HEMATOCRIT 37.3 % (35.0-50.0); HEMOGLOBIN 12.5 g/dL (12.0-18.0); LYMPHOCYTES 9.4 % (24-44); MCHC 33.6 g/dl (30-36); MCV 98.4 fl (81-99); MONOCYTES 7.7 % (0-12); NEUTROPHILS 81.7 % (39-80); PLATELET COUNT 169 K/uL (140-440); RBC 3.79 M/ul (4.3-5.7); RDW 13.5 (10.5-15.0)
[2024-04-15 03:25] LABS: ALBUMIN 3.6 g/dL (3.4-5.0); ANION GAP 12.1 (7-21); BILIRUBIN, TOTAL 0.3 ng/dL (0.2-1.0); BUN/CREATININE RATIO 22.62 (6.0-28.6); CALCIUM 8.9 mg/dL (8.5-10.1); CREATININE, SERUM 1.37 mg/dL (0.70-1.30); MAGNESIUM 1.7 mg/dL (1.8-2.4); POTASSIUM 4.1 mmol/L (3.5-5.1); PROTEIN, TOTAL 7.2 g/dL (6.4-8.2)
[2024-04-15] MEDS ORDERED: hydrALAZINE HCL 20 MG/ML VIAL IV ONE (04:45)
--- NOTE | 2024-04-15 09:27 | EKG ---
[facility] [address] [place] [address] Signed Sinus rhythm with premature atrial complexes Possible Left atrial enlargement Right bundle branch block Abnormal ECG When compared with ECG of 09-APR-2023 17:03, No significant change was found Confirmed by José Miguel Flower MD () on 04/15/2024 9:26:56 AM Electronically Signed By: JOSÉ MIGUEL FLOWER MD 04/15/24 0927 PATIENT NAME: MARISSA BUENROSTRO Electrocardiogram DATE OF : 56 PHYSICIAN: JOSÉ MIGUEL FLOWER MD REPORT #: [id number] REPORT IS CONFIDENTIAL AND NOT TO BE RELEASED WITHOUT AUTHORIZATION
[2024-04-15 11:38] VITALS: BP 194/80
== END 2024-04-15 11:00 | disposition home or self-care (01) ==
LOC: ED 01:55
PROVIDERS: Family Medicine
DX: S82.002D Unspecified fracture of left patella, subsequent encounter for closed fracture with routine healing (principal); X58.XXXD Exposure to other specified factors, subsequent encounter; I11.0 Hypertensive heart disease with heart failure; I50.9 Heart failure, unspecified; J44.9 Chronic obstructive pulmonary disease, unspecified; I48.91 Unspecified atrial fibrillation; F17.200 Nicotine dependence, unspecified, uncomplicated; Z88.8 Allergy status to other drugs, medicaments and biological substances; Z88.6 Allergy status to analgesic agent; Z79.899 Other long term (current) drug therapy; Z79.82 Long term (current) use of aspirin
CPT/HCPCS: 36415; 80053; 81003; 83735; 85025; 93005; 93010; 96374; 96375; 99284-25; J0360; J1170; J1885; J2060

== ENCOUNTER 2024-10-22 01:35 | Emergency (ER) | payer MEDICARE, OTHER ==
[~2024-10-22] VITALS: Ht 172.7 cm; Wt 78.0 kg
[2024-10-22] MEDS ORDERED: OXYCODONE/APAP 10/325 TAB PO ONE (02:30)
[2024-10-22 02:31] VITALS: BP 161/98
[2024-10-23] MEDS ORDERED: DOXYCYCLINE HY100 MG PO (00:24)
== END 2024-10-22 02:33 | disposition home or self-care (01) ==
LOC: ED 01:35
DX: S62.304A Unspecified fracture of fourth metacarpal bone, right hand, initial encounter for closed fracture (principal); S62.616A Displaced fracture of proximal phalanx of right little finger, initial encounter for closed fracture; F17.200 Nicotine dependence, unspecified, uncomplicated; Z79.899 Other long term (current) drug therapy; Z88.1 Allergy status to other antibiotic agents; Z88.8 Allergy status to other drugs, medicaments and biological substances; W23.0XXA Caught, crushed, jammed, or pinched between moving objects, initial encounter
CPT/HCPCS: 73130

== ENCOUNTER 2024-10-22 22:15 | Emergency (ER) | payer MEDICARE, OTHER ==
[~2024-10-22] VITALS: Ht 172.7 cm; Wt 78.0 kg
[2024-10-23] MEDS ORDERED: DOXYCYCLINE HY100 MG PO (00:24)
[2024-10-23] MEDS ORDERED: DOXYCYCLINE HYCLATE 100 MG HOME.PACK PO ONE (00:30)
[2024-10-23 00:34] VITALS: BP 141/85
== END 2024-10-23 00:34 | disposition home or self-care (01) ==
LOC: ED 22:15
DX: T80.29XA Infection following other infusion, transfusion and therapeutic injection, initial encounter (principal); I11.0 Hypertensive heart disease with heart failure; I50.9 Heart failure, unspecified; I48.91 Unspecified atrial fibrillation; J44.9 Chronic obstructive pulmonary disease, unspecified; F17.200 Nicotine dependence, unspecified, uncomplicated; Z79.82 Long term (current) use of aspirin; Z79.899 Other long term (current) drug therapy; Z88.5 Allergy status to narcotic agent; Z88.8 Allergy status to other drugs, medicaments and biological substances
CPT/HCPCS: 99283; A9270

== ENCOUNTER 2024-12-15 15:45 | Emergency (ER) | payer MEDICARE, OTHER ==
[~2024-12-15] VITALS: Ht 172.7 cm; Wt 78.0 kg
[~2024-12-15 15:45] MED LIST changes: +DOXYCYCLINE HY100 MG PO
[2024-12-15 16:06] LABS: BASOPHILS 0.7 % (0-2); EOSINOPHILS 1.2 % (0-6); HEMATOCRIT 42.9 % (35.0-50.0); LYMPHOCYTES 29.7 % (24-44); MCH 32.4 (27-36); MCHC 34.9 g/dl (30-36); MCV 92.9 fl (81-99); NEUTROPHILS 58.4 % (39-80); PLATELET COUNT 250 K/uL (140-440); RBC 4.61 M/ul (4.3-5.7); RDW 13.8 (10.5-15.0)
[2024-12-15] MEDS ORDERED: ondansetron HCL 4 MG/2 ML VIAL IV PRN (16:15)
[2024-12-15 16:16] LABS: ALBUMIN 3.8 g/dL (3.4-5.0); ALBUMIN/GLOBULIN RATIO 0.97 (1.1-2.4); BILIRUBIN, TOTAL 0.4 mg/dL (0.2-1.0); BUN/CREATININE RATIO 17.42 (6.0-28.6); CALCIUM 8.5 mg/dL (8.5-10.1); CREATININE, SERUM 2.41 mg/dL (0.70-1.30); PROTEIN, TOTAL 7.7 g/dL (6.4-8.2)
[2024-12-15] MEDS ORDERED: SODIUM CHLORIDE 0.9% 1,000 ML IV PRN (16:45)
[2024-12-15] MEDS ORDERED: HYDROmorphone HCL 1 MG/ML SYR IV ONE (17:30)
[2024-12-15 18:42] LABS: BILIRUBIN, URINE NEGATIVE (negative); BLOOD/HGB, URINE NEGATIVE (Negative); KETONE, URINE NEGATIVE (Negative); LEUK ESTERASE, URINE NEGATIVE (negative); NITRITE, URINE NEGATIVE (negative)
[2024-12-15] MEDS ORDERED: SODIUM CHLORIDE 0.9% 1,000 ML IV SCH ×2 (20:15→21:15)
[2024-12-15] MEDS ORDERED: HYDROmorphone HCL 1 MG/ML SYR IV PRN (20:30)
[2024-12-16] MEDS ORDERED: PIPERACILLIN/TAZOBACTAM 4.5 GM in SODIUM CHLORIDE 0.9% 100 ML IV ONE (00:15)
[2024-12-16 03:52] VITALS: BP 157/71
== END 2024-12-16 03:52 | disposition short-term general hospital (02) ==
LOC: ED 15:45
PROVIDERS: Emergency Medicine
DX: K55.9 Vascular disorder of intestine, unspecified (principal); I10 Essential (primary) hypertension; I48.91 Unspecified atrial fibrillation; J44.9 Chronic obstructive pulmonary disease, unspecified; I50.9 Heart failure, unspecified; F17.200 Nicotine dependence, unspecified, uncomplicated; Z88.8 Allergy status to other drugs, medicaments and biological substances
CPT/HCPCS: 36415; 74176; 80053; 81003; 83605; 85025; 96361; 96365; 96375; 96376; 99285-25; J1171; J2405; J2543; J7030

== ENCOUNTER 2025-02-13 16:19 | Emergency (ER) | payer MEDICARE, OTHER ==
[~2025-02-13] VITALS: Ht 172.7 cm; Wt 78.0 kg
--- OUTSIDE RECORDS SUMMARY | ~2025-02-13 | XMS | Continuity of Care Document ---
Demographics + + + | Address | [address] | | | [place] [address] | + + + | Preferred Language | Unknown | + + + | Marital Status | Unknown | + + + | Judaism Affiliation | Unknown | + + + | Race | White | + + + | Ethnic Group | Not or | + + + Author + + + | Author | [facility] | + + + | Organization | [facility] | + + + | Address | [address] | | | [place] [address] | + + + | Phone | | + + + Care Team Providers + + + + | Care Gymnastics Coach Or Instructor Name | Role | Phone | + + + + Unavailable | Unavailable | + + + + Allergies No information. Encounters No information. Functional Status No information. Immunizations No information. Medications No information. Problems + + + + | date | description | facility | + + + + | 2024-12-19 14:14:34 | Nicotine dependence, | [facility] | | | cigarettes, with | | | | unspecified | | | | nicotine-induced disorders | | + + + + Procedures No information. Results/Labs No information. Social History +--------+ + + | date | description | facility | +--------+ + + Vital Signs No information."
[2025-02-13 16:40] LABS: BASOPHILS 0.6 % (0.2-1.2); EOSINOPHILS 0.9 % (0.8-7.0); LYMPHOCYTES 16.1 % (21.8-53.1); MCH 31.6 PG (25.7-32.2); MCHC 34.1 g/dL (32.3-36.5); MCV 92.7 fL (79.0-92.2); MONOCYTES 5.8 % (5.3-12.2); NEUTROPHILS 76.4 % (34.0-67.9); RBC 4.55 M/uL (4.63-6.08)
[2025-02-13 16:57] LABS: ALT (SGPT) 18.0 U/L (14-59); AST (SGOT) 13.0 U/L (15-37); GLOMERULAR FILTRATION RATE,EST 72.0 mL/min (>60); PROTEIN, TOTAL 7.4 g/dL (6.4-8.2); UREA NITROGEN 29.0 mg/dL (7-18)
[2025-02-13 17:26] LABS: BLOOD/HGB, URINE NEGATIVE (Negative); KETONE, URINE NEGATIVE (Negative); LEUK ESTERASE, URINE NEGATIVE (negative); NITRITE, URINE NEGATIVE (negative)
[2025-02-13 17:33] LABS: BACTERIA, URINE NONE SEEN /hpf (negative); CASTS, URINE NONE SEEN \\lpf; CRYSTALS, URINE NONE SEEN (0-1+); EPITHELIAL CELLS, URINE NONE SEEN /lpf (0-1+); REFLEX CULTURE, URINE No (No)
[2025-02-13 18:10] VITALS: BP 181/91
== END 2025-02-13 18:10 | disposition home or self-care (01) ==
LOC: ED 16:19
PROVIDERS: Emergency Medicine
DX: R10.9 Unspecified abdominal pain (principal); I48.91 Unspecified atrial fibrillation; I11.0 Hypertensive heart disease with heart failure; I50.9 Heart failure, unspecified; F17.200 Nicotine dependence, unspecified, uncomplicated; Z79.84 Long term (current) use of oral hypoglycemic drugs; Z79.899 Other long term (current) drug therapy; Z79.82 Long term (current) use of aspirin; Z88.6 Allergy status to analgesic agent; Z88.5 Allergy status to narcotic agent; Z88.8 Allergy status to other drugs, medicaments and biological substances
CPT/HCPCS: 36415; 80053; 81001; 85025; 96374; 99284-25; J2405